=== PATIENT | female | born 1955 | race Caucasian/White ===

== ENCOUNTER 2023-02-16 10:00 | Outpatient (OUT) | payer OTHER, SELFPAY ==
--- NOTE | 2023-02-16 10:00 | CA_ITS ---
Patient: LOREN MURILLO Exam Date: 02/16/2023 : 1955 Gender:F Ordering : DR Hannah Lynn M.D. Admission #: [id number] Family : Order #: [id number] CLICK HERE TO VIEW EXAM ECHOCARDIOGRAM REPORT PROCEDURE: CA ECHO DOPPLER COMPLETE INDICATIONS: Heart murmur COMPARISON: None. DESCRIPTION: COMPLETE ECHOCARDIOGRAM Real-time transthoracic echocardiography with 2D, M-mode, spectral and color flow Doppler performed. QUALITY: Technical quality was good. LEFT VENTRICLE: Normal chamber size. Normal left ventricular wall thickness. Normal systolic function. LV EF: Normal left ventricular ejection fraction, (>55%). DIASTOLIC: Normal diastolic function. ATRIAL SEPTUM: Visually appears intact. LEFT ATRIUM: Mild dilatation. RIGHT ATRIUM: Mild dilatation. RIGHT VENTRICLE: Mild dilatation. Normal right ventricular systolic function. TRICUSPID VALVE: Normal mobility and thickness. No stenosis with trivial regurgitation. Doppler studies reveal mildly (35-45) elevated right sided pressures. RVSP 41 mmHg MITRAL VALVE: Normal mobility and thickness. No evidence of mitral valve stenosis. There is no mitral annular calcification. Mild mitral regurgitation. AORTIC VALVE: Normal trileaflet appearance. Normal leaflet mobility. No evidence of aortic valve stenosis. Focal calcification. No aortic regurgitation. AORTIC ROOT: Normal diameter and appearance. PULMONIC VALVE: Normal thickness and mobility. No stenosis. Trivial regurgitation. PERICARDIUM: No evidence of pericardial effusion. IVC: Collapses with inspirations. IVC is dilated (2.4 cm). PLEURA: CONCLUSION: 1. Normal left ventricular systolic function. LVEF is 60%. 2. The right ventricle is mildly dilated with normal systolic function. 3. Mild biatrial dilatation. 4. Mild mitral regurgitation. 5. Mildly elevated right sided pressures. Adult Echocardiography Procedure Report Left Ventricle LVEDD (3.7 - 5.6 cm): 4.50 cm LVESD (2.2 - 4.0 cm): 3.21 cm LVIVS thickness (0.6 - 1.2 cm): 0.80 cm LVPW thickness (0.5 - 1.0 cm): 1.02 cm e': 0.11 m/s E - e': 8.15 LVOT Max Gradient: 4.48 mm[Hg] LVOT Area (cm2): 1.06 m/s Peak Velocity (LVOT): 1.06 m/s LVOT Diameter 2.03 cm Left Atrium LA Volume Index (2D A2C): 36.98 ml/m2 Left Atrium Systolic Dimension: 3.27 cm Mitral Valve MV E to A Ratio: 0.89, 0.86 Mitral Valve A-Wave Peak Velocity: 1.00 m/s Mitral Valve E-Wave Peak Velocity: 0.88 m/s Right Ventricle Aorta AO Root Diam: 3.72 cm Ascending Ao Diam: 2.81 cm Aortic Valve AoV Area (Peak [place]): 2.17 cm2, 2.17 cm2 Peak Velocity(Antegrade Flow): 1.58 m/s Peak Gradient(Antegrade Flow): 9.96 mm[Hg] Tricuspid Valve Peak Velocity (Regurgitant Flow): 2.87 m/s Pulmonic Valve Mean Gradient: 3.07 mm[Hg], 3.21 mm[Hg] Mean Velocity: 0.83 m/s, 0.83 m/s Peak Velocity: 1.20 m/s, 1.24 m/s Peak Gradient: 6.20 mm[Hg], 5.09 mm[Hg], 6.56 mm[Hg] Right Atrium Right Atrium Systolic Pressure: 84.49 ml, 84.49 ml Dictated by: Phan Goetz M.D. on 02/17/2023 at 16:58 Approved by: Phan Goetz M.D. on 02/17/2023 at 17:08
--- NOTE | 2023-02-16 10:49 | US_ITS ---
[place] [id number] Patient Name: LOREN MURILLO MRN: [id number] date: 1955 Sex: F Assigned Patient Location: CARD Current Patient Location: [facility]ARD Accession/Order Number: [id number] Exam Date: 02/16/2023 11:00 Report Date: 02/16/2023 14:15 At the request of: OLMAN SHOEMAKER Procedure: US carotid duplex BI EXAMINATION: US carotid duplex BI HISTORY: Carotid Bruit R09.89 COMPARISON: No relevant comparison available. TECHNIQUE: Duplex Doppler ultrasound analysis of carotid and vertebral arteries. . Bilateral carotid arterial duplex examination was performed using B-mode, color flow and spectral analysis. Carotid stenosis is reported according to validated velocity parameters, similar to NASCET criteria. FINDINGS: RIGHT CAROTID ARTERY Mild atherosclerotic disease , tortuous ICA Subclavian: PSV: 235.8 cm/s cm/s EDV: 15.6 cm/s cm/s CCA: Prox: PSV: 85.4 cm/s cm/s EDV: 16.0 cm/s cm/s Mid: PSV: 88.7 cm/s cm/s EDV: 24.1 cm/s cm/s Distal: PSV: 88.7 cm/s cm/s EDV: 24.1 cm/s cm/s BULB: PSV: 64.7 cm/s cm/s EDV: 13.1 cm/s cm/s ICA: Prox: PSV: 93.5 cm/s cm/s EDV: 25.7 cm/s cm/s Mid: PSV: 96.8 cm/s cm/s EDV: 37.0 cm/s cm/s Distal: PSV: 129.9 cm/s cm/s EDV: 43.9 cm/s cm/s ECA: PSV: 79.5 cm/s cm/s EDV: 6.8 cm/s cm/s VERTEBRAL: PSV: 56.3 cm/s cm/s EDV: 16.7 cm/s cm/s, antegrade ICA/CCA ratio: PSV: 1.5 EDV: 1.8 LEFT CAROTID ARTERY Mild atherosclerotic plaque Subclavian: PSV: 168.7 cm/s cm/s EDV: 0.0 cm/s CCA: Prox: PSV: 128.6 cm/s cm/s EDV: 15.5 cm/s Mid: PSV: 101.1 cm/s cm/s EDV: 18.7 cm/s Distal: PSV: 83.8 cm/s cm/s EDV: 20.8 cm/s BULB: PSV: 67.7 cm/s cm/s EDV: 19.2 cm/s ICA: Prox: PSV: 95.1 cm/s cm/s EDV: 22.4 cm/s Mid: PSV: 87.0 cm/s cm/s EDV: 33.7 cm/s Distal: PSV: 70.9 cm/s cm/s EDV: 20.8 cm/s ECA: PSV: 75.7 cm/s cm/s EDV: 6.3 cm/s VERTEBRAL: PSV: 39.2 cm/s cm/s EDV: 10.4 cm/s , antegrade ICA/CCA ratio: PSV: 1.1 EDV: 1.1 US/US carotid duplex BI IMPRESSION: 0-49% flow stenosis bilateral internal carotid arteries Spectral Doppler US Thresholds (Reference: Danny EG, et al. Radiology 2000; 214:247-252) Stenosis (%) PSV (cm/sec) VICA/VCCA 0-49 <150 <2.5 50-69 150-225 2.5-4.0 >70 >225 >4.0 Electronically authenticated by: TOM NEAL Date: 02/16/2023 14:15
== END 2023-02-16 10:01 | disposition home or self-care (01) ==
LOC: CARD 10:08
PROVIDERS: PCP Family Medicine; Visit Provider Family Medicine
DX: R01.1 Cardiac murmur, unspecified (principal); R09.89 Other specified symptoms and signs involving the circulatory and respiratory systems; I65.23 Occlusion and stenosis of bilateral carotid arteries; I51.7 Cardiomegaly; I34.0 Nonrheumatic mitral (valve) insufficiency
CPT/HCPCS: 93306; 93880

== ENCOUNTER 2024-01-15 10:03 | Outpatient (OUT) | payer OTHER, SELFPAY ==
--- NOTE | 2024-01-15 10:11 | XR_ITS ---
[address] [address] Patient Name: LOREN MURILLO MRN: [id number] date: 1955 Sex: F Assigned Patient Location: [facility] Current Patient Location: [facility] Accession/Order Number: [id number] Exam Date: 01/15/2024 10:20 Report Date: 01/15/2024 10:37 At the request of: EDNA CAMPBELL Procedure: XR abdomen 1V EXAMINATION: XR abdomen 1V HISTORY: Kidney Stones N20.0 COMPARISON: No relevant comparison available. FINDINGS: KIDNEY/URETER - RIGHT: No visible renal or ureteral calcifications. KIDNEY/URETER - LEFT: Numerous calcifications in the largest measuring 1.2 cm PELVIS: No visible ureteral calcifications. Any visible calcifications favor phleboliths. BOWEL: No abnormal dilation or deviation. BONES: No acute abnormality. Degenerative spondylosis OTHER: Negative. No abnormal gaseous collections. XR/XR abdomen 1V IMPRESSION: Left nephrolithiasis Electronically authenticated by: TOM NEAL Date: 01/15/2024 10:37
== END 2024-01-15 10:04 | disposition home or self-care (01) ==
LOC: RAD 10:05
PROVIDERS: PCP Family Medicine; Visit Provider Physician Assistant
DX: N20.0 Calculus of kidney (principal)
CPT/HCPCS: 74018

== ENCOUNTER 2024-05-16 11:48 | Outpatient (OUT) | payer OTHER, SELFPAY ==
--- OUTSIDE RECORDS SUMMARY | 2024-05-16 11:58 | XMS_ITS | CCD ---
Author Organization [facility] Care Team Providers Care Lone Lead Lineman Name Role Phone SIDNEY PAGAN Attending Unavailable HANNAH SHOEMAKER Primary Care Unavailable HANNAH SHOEMAKER Referring Unavailable SIDNEY PAGAN Admitting Unavailable SIDNEY PAGAN Surgeon Unavailable HANNAH SHOEMAKER Primary Care Unavailable HANNAH SHOEMAKER Referring Unavailable [place] Procedure Practitioner Unavailab SIDNEY Jasso Admitting Unavailable SIDNEY PAGAN Attending Unavailable MISC, DR SHAH Admitting Unavailable MISC, DR SHAH Attending Unavailable SAHARA, DR HANNAH Holt Primary Care Unavailable CHERYL NAIR, DR INA Vargas Consulting Unavailnasreen SHOEMAKER, DR HANNAH Holt Admitting Unavailable SAHARA, DR HANNAH Holt Attending Unavailable SAHARA, DR HANNAH Holt Primary Care Unavailable SHOEMAKER, DR HANNAH Holt Consulting Unavailable HANNAH SHOEMAKER Primary Care Physician Hannah Shoemaker Unavailable THUY CAMPBELL Attending Unavailable Allergies Allergy Classification Reported Allergen(s) Allergy Type Date of Onset Reaction(s) Facility Sulfonamides (antibiotic) (1 source) Sulfonamides (Antibiotic); Translations: [SULFA (SULFONAMIDE ANTIBIOTICS)] Drug Allergy 02-18-20 [facility] (1 source) Sulfonamides (Antibiotic) Drug allergy (disorder) [facility] (3 sources) Sulfonamides (Antibiotic); Translations: [sulfa drugs] Drug allergy Unknown (qualifier value) [facility] [place] (4 sources) Substance with sulfonamide structure and antibacterial mechanism of action (substance) Drug allergy hives [employer] Other (3 sources) patient allergy list reviewed by nurse or physicia Propensity to adverse reactions 07-09-20 14 Comment:Done [employer] Other (3 sources) Allergies Reconciled Propensity to adverse reactions Unknown [employer] Other Medications Current Medications Medication Drug Class(es) Dates Sig (Normalized) Sig (Original) aspirin 81 mg chewable tablet (9 sources) Platelet Aggregation Inhibitor, Nonsteroidal Anti-inflammatory Drug Start: 10-14-2023 take 81 mg by mouth once daily Aspirin Active 81 MG PO Daily October 14, 2023 12:00am Start: 12-17-2019 take 1 tablet by jeff th once daily aspirin 81 mg Oral EC Tab 81 mg = 1 tab(s), Oral, Daily, Refills(s) 0 Start Date: 12/17/19 Status: Ordered Baby Aspirin Act jose caffeine 100 mg / ergotamine tartrate 1 mg oral tablet (9 sources) Central Nervous System Stimulant, Ergotamine Derivative, Methylxanthine Start: 10-14-2023 take 1 tablet by mouth once Ergotamine-Caffeine Active 1 TAB PO Once October 14, 2023 12:00am FreeTextSig: Orally; Note: Source Status: Taking; Provider: Sahara Young ( ) Start: 12-13-2019 take 1 tablet by jeff th every eight hours for headache Cafergot oral tablet 1 tab(s), Oral, q8hr for headache Start Date: 12/13/19 Status: Ordered Cafergot 1-100 M G Orally Active Centrum MultiGummies Women (2 sources) Start: 12-17-2019 Centrum MultiG ummies Women See Instructions, Refill(s) 0, one po daily Start Date: 12/17/19 Status: Ordered fesoterodine (13 sources) Start: 02-13-2024 take 1 tablet by mouth once daily Fesoterodine Active 0 .ROUTE .COMPLEX February 13, 2024 10:42am TAKE 1 TABLET BY MOUTH EVERY DAY Start: 12-26-2023 End: 02-13-2024 take 1 tablet by mouth once daily Fesoterodine Discontinued 0 .ROUTE .COMPLEX December 26, 2023 3:40pm February 13, 2024 10:42am TAKE 1 TABLET BY MOUTH EVERY DAY Start: 12-13-2019 End: 12-26-2023 take 1 tablet by mouth once daily Fesoterodine (Toviaz) 8 mg tablet extended release 24 hr Discontinued 8 MG PO Daily October 14, 2023 12:00am November 27, 2023 8:37am Toviaz 8mg Activ e hydroCHLOROthiazide 25 mg oral tablet (9 sources) Thiazide Diuretic Start: 12-13-2019 take 1 tablet by mouth once daily Hydrochlorothiazide Active 25 MG PO Daily October 14, 2023 12:00am FreeTextSig: TAKE 1 TABLET DAILY; Note: Source Status: Start; Refills: 3; Qty: 90 Tablet; Provider: Sahara Young ( ) meloxicam (10 sources) Nonsteroidal Anti-inflammator y Drug Start: 10-27-2023 Meloxicam Active 0 .ROUTE .COMPLEX 90 October 27, 2023 11:00am TAKE 1 TABLET DAILY Start: 12-17-2019 End: 10-27-2023 take 1 tablet by mouth once daily Meloxicam Discontinued 15 MG PO Daily October 14, 2023 12:00am October 27, 2023 11:00am FreeTextSig: TAKE 1 TABLET DAILY; Note: Source Status: Taking; Refills: 3; Qty: 90 Tablet; Provider: Sahara Young ( ) Ogonfayf-Mkj-Lp-Lycopen-Lute in (Complete Mv Adult 50 Plus) 0.4 mg-300 mcg- 250 mcg tablet (3 sources) Start: 10-14-2023 take 1 tablet by mouth once daily Sattwenh-Lxw-Hz-Lycopen-Lutein (Complete Mv Adult 50 Plus) 0.4 mg-300 mcg- 250 mcg tablet Active 1 TAB PO Daily October 14, 2023 12:00am Multivitamin Adults 50+ - (4 sources) Multivitamin Fernandez lts 50+ - Orally Active terbinafine 250 mg oral tabl et (4 sources) Allyl amine Antif ungal Start: 02-09-2023 take 1 tablet by mouth every twenty- four hours Terbinafine HCl 250 MG 1 tablet Orally Once a day for 10 day(s) Jan, Active Completed/Discontinued Medications Medication Drug Class(es) Dates Sig (Normalized) Sig (Original) azithromycin 250 mg oral tablet (2 sources) Macrolide Antimicrobial Start: 10-25-2023 End: 05-16-2024 Azithromycin Discontinued 250 MG PO daily 6 5 October 25, 2023 12:00am May 16, 2024 10:40am Take 2 tablets today and then 1 tablet for the next 4 days benzonatate 200 mg oral capsule (2 sources) Non-narcotic Antitussive Start: 10-25-2023 End: 05-16-2024 take 200 mg by mouth three times daily Benzonatate Discontinued 200 MG PO Three times daily 30 October 25, 2023 12:00am May 16, 2024 10:41am diclofenac sodium 20 mg/ml topical solution (4 sources) Nonsteroidal Anti-inflammatory Drug Start: 09-11-2017 Pennsaid 2 % 2 applications to affected area Transdermal Twice a day for 30 day(s) Aug, Not-Taking 24 hr mirabegron 50 mg extended release oral tablet (11 sources) beta3-Adrenergic Agonist Start: 12-13-2019 End: 01-03-2024 take 1 tablet by mouth once daily Mirabegron Discontinued 50 MG PO Daily October 14, 2023 12:00am October 27, 2023 11:00am FreeTextSig: TAKE 1 TABLET DAILY; Note: Source Status: Taking; Refills: 3; Qty: 90 Tablet; Provider: Sahara Young ( ) predniSONE 20 mg oral tablet (3 sources) Start: 10-14-2023 End: 10-25-2023 take 20 mg by mouth twice daily Prednisone Discontinued 20 MG PO Twice daily 10 October 14, 2023 12:00am October 25, 2023 9:34am SUPARTZ FX SODIUM HYALURONATE (20 sources) Start: 12-29-2016 SUPARTZ FX SODIUM HYALURONATE Dec, 25 Start: 12-20-2016 SUPARTZ FX SOD IUM HYALURONATE November, 25 mg Start: 12-12-2016 SUPARTZ FX SOD IUM HYALURONATE November, 25 Start: 12-05-2016 SUPARTZ FX SOD IUM HYALURONATE November, 25 mg Start: 11-28-2016 SUPARTZ FX SOD IUM HYALURONATE November, 25 mg Triamcinolone (20 sources) Corticosteroid Start: 10-05-2017 Kenalog -40 mg Sep, 40 mg Start: 04-03-2017 Kenalog -40 mg Mar, Start: 10-06-2016 Kenalog -40 mg Sep, 40 mg Problems Active Problems Problem Classification Problem Date Documented Date Episodic/Chronic Abdominal hernia (5 sources) Irreducible incisional hernia; Translations: [Hernia of anterior abdominal wall without obstruction AND without gangrene] 12-20-2019 Episodic Calculus of urinary tract (5 sources) Kidney stone; Translations: [Calculus of kidney] Onset: 01-16-2024 02-18-2020 Episodic Chronic obstructive pulmonary disease and bronchiectasis (3 sources) Bronchitis; Translations: [Bronchitis, not specified as acute or chronic] 10-25-2023 Episodic Essential hypertension (2 sources) Hypertensive disorder; Translations: [Essential (primary) hypertension] 05-16-2024 Chronic Genitourinary symptoms and ill-defined conditions (10 sources) Incontinence; Translations: [Incontinence without sensory awareness] Onset: 06-10-2016 12-12-2019 Chronic Genitourinary symptoms and ill-defined conditions (9 sources) Microscopic hematuria; Translations: [Nocturia] Onset: 06-07-2016 01-21-2020 Episodic Headache; including migraine (9 sources) Migraine; Translations: [Episodic tension-type headache] 12-12-2019 Chronic Heart valve disorders (5 sources) Heart murmur; Translations: [O/E - cardiac murmur] Onset: 08-23-2018 12-12-2019 Episodic Influenza (1 source) Influenza due to other identified influenza virus with other respiratory manifestations; Translations: [Influenza with other respiratory manifestations] 10-14-2023 Episodic Menstrual disorders (3 sources) Disorder of menstruation; Translations: [Unspecified disorder of menstruation and other abnormal bleeding from female genital tract] Onset: 03-15-2007 Chronic Osteoarthritis (20 sources) Osteoarthritis of knee; Translations: [Unilateral primary osteoarthritis, right knee] Chronic Other circulatory disease (5 sources) Elevated blood-pressure reading without diagnosis of hypertension; Translations: [Elevated blood-pressure reading, without diagnosis of hypertension] Onset: 04-01-2015 12-12-2019 Episodic Other connective tissue disease (4 sources) Pain in left lower limb; Translations: [Pain in left leg] Episodic Other connective tissue disease (4 sources) Thigh pain; Translations: [Pain in unspecified thigh] Episodic Other diseases of bladder and urethra (3 sources) Overactive bladder; Translations: [Overactive bladder] Chronic Other nervous system disorders (4 sources) Meralgia paresthetica of left leg; Translations: [Meralgia paresthetica, left lower limb] Chronic Other nervous system disorders (4 sources) Chronic pain; Translations: [Other chronic pain] Chronic Other non-traumatic joint disorders (8 sources) Knee pain; Translations: [Pain in right knee] Episodic Other nutritional; endocrine; and metabolic disorders (10 sources) Body mass index 40+ - severely obese; Translations: [Body mass index (BMI) 50.0-59.9, adult] Onset: 08-31-2017 Chronic Other screening for suspected conditions (not mental disorders or infectious disease) (2 sources) Patient encounter status; Translations: [Encounter for screening mammogram for malignant neoplasm of breast] 05-16-2024 Episodic Other upper respiratory infections (6 sources) Acute maxillary sinusitis; Translations: [Acute maxillary sinusitis, unspecified] Onset: 07-09-2014 Episodic Spondylosis; intervertebral disc disorders; other back problems (4 sources) Spondylosis; Translations: [Other spondylosis, lumbar region] Chronic Substance-related disorders (3 sources) Tobacco user; Translations: [Nicotine dependence, cigarettes, in remission] Chronic Unclassified (2 sources) Asymptomatic microscopic hematuria 06-03-2021 Urinary tract infections (6 sources) Urinary tract infectious disease; Translations: [Urinary tract infection, site not specified] 08-10-2022 Episodic Past or Other Problems Problem Classification Problem Date Documented Da te Episodic/Chronic Other aftercare (3 sources) Surgical follow-up; Translations: [Follow-up examination, following unspecified surgery] Onset: 05-29-2007 Episodic Other female genital disorders (3 sources) Hypertrophy of uterus; Translations: [Hypertrophy of uterus] Onset: 03-15-2007 Episodic Other non-traumatic joint disorders (3 sources) Arthralgia of the pelvic region and thigh; Translations: [Pain in joint, pelvic region and thigh] Onset: 08-31-2017 Episodic Spondylosis; intervertebral disc disorders; other back problems (3 sources) Low back pain; Translations: [Low back pain, unspecified] Onset: 04-08-2016 Episodic Results Test Name Value Interpretation Reference Range Facility Screenson 01-17-2024 Screens [id number] F Yasmin [facility] Ambulatory Visit Summaryon 0 01-16-2024 Ambulatory Visit Summary SHARRI MURILLO :1955 Visit Date:01/03/2020 Ambulatory Visit Instructions Your Care Team Primary Care Physician - HANNAH SHOEMAKER MD This Is Your Medications List aspirin (aspirin 81 mg Oral EC Tab) caffeine-ergotamine (Cafergot oral tablet) fesoterodine (Toviaz 8 mg oral tablet, extended release) hydrochlorothiazide (hydrochlorothiazide 25 mg Tab) meloxicam (meloxicam 15 mg Tab) mirabegron (Myrbetriq 50 mg oral tablet, extended release) multivitamin with minerals (Centrum MultiGummies Women) Procedures Performed ESWL of kidney (02/03/2020), History of arthroplasty of left knee (11/21/2018), Total replacement of right knee joint (09/21/2018), Cholecystectomy, Hysterectomy, Repair of right inguinal hernia. Medications What How Much When Instructions Unchanged aspirin (aspirin 81 mg Oral EC Tab) 1 Tablets By Mouth Every day Unchanged caffeine-ergotamine (Cafergot oral tablet) 1 Tablets By Mouth Every 8 hours as needed for for headache Unchanged fesoterodine (Toviaz 8 mg oral tablet, extended release) 1 Tablets By Mouth Every day Unchanged hydrochlorothiazide (hydrochlorothiazide 25 mg Tab) 1 Tablets By Mouth Every day Unchanged meloxicam (meloxicam 15 mg Tab) 1 Tablets By Mouth Every day Unchanged mirabegron (Myrbetriq 50 mg oral tablet, extended release) 1 Tablets By Mouth Every day Unchanged multivitamin with minerals (Centrum MultiGummies Women) See instructions one po daily Allergies sulfa drugs (Unknown) Problems Ongoing - Any problem that you are currently receiving treatment for. Asymptomatic microscopic hematuria Blood pressure elevated without history of HTN Cardiac murmur Headache, migraine Incarcerated incisional hernia Incontinence without sensory awareness Kidney stone Microscopic hematuria Mixed incontinence Mixed urge and stress incontinence Nocturia Renal calculus, left UTI (urinary tract infection) Patient Survey You may receive a survey via text or e-mail asking about your office visit. Please share your experience with us by completing your survey. We appreciate your feedback and thank you for choosing us for your care. Yasmin [facility] Patient Educationon 01-16-20 24 Patient Education Nephrology Dietary Guidelines to Help Prevent Kidney Stones Kidney stones are deposits of minerals and salts that form inside your kidneys. Your risk of developing kidney stones may be greater depending on your diet, your lifestyle, the medicines you take, and whether you have certain medical conditions. Most people can lower their risks of developing kidney stones by following these dietary guidelines. Your dietitian may give you more specific instructions depending on your overall health and the type of kidney stones you tend to develop. What are tips for following this plan? Reading food labels ? Choose foods with no salt added or low-salt labels. Limit your salt (sodium) intake to less than 1,500 mg a day. ? Choose foods with calcium for each meal and snack. Try to eat about 300 mg of calcium at each meal. Foods that contain 200?500 mg of calcium a serving include: ? 8 oz (237 mL) of milk, kaxdips-plrypjwinkdn-ptq ry milk, and calcium-fortifiedfruit juice. Calcium-fortified means that calcium has been added to these drinks. ? 8 oz (237 mL) of kefir, yogurt, and soy yogurt. ? 4 oz (114 g) of tofu. ? 1 oz (28 g) of cheese. ? 1 cup (150 g) of dried figs. ? 1 cup (91 g) of cooked broccoli. ? One 3 oz (85 g) can of sardines or mackerel. Most people need 1,000?1,500 mg of calcium a day. Talk to your dietitian about how much calcium is recommended for you. Shopping ? Buy plenty of fresh fruits and vegetables. Most people do not need to avoid fruits and vegetables, even if these foods contain nutrients that may contribute to kidney stones. ? When shopping for convenience foods, choose: ? Whole pieces of fruit. ? Pre-made salads with dressing on the side. ? Low-fat fruit and yogurt smoothies. ? Avoid buying frozen meals or prepared deli foods. These can be high in sodium. ? Look for foods with live cultures, such as yogurt and kefir. ? Choose high-fiber grains, such as whole-wheat breads, oat bran, and wheat cereals. Cooking ? Do not add salt to food when cooking. Place a salt shaker on the table and allow each person to add their own salt to taste. ? Use vegetable protein, such as beans, textured vegetable protein (TVP), or tofu, instead of meat in pasta, casseroles, and soups. Meal planning ? Eat less salt, if told by your dietitian. To do this: ? Avoid eating processed or pre-made food. ? Avoid eating fast food. ? Eat less animal protein, including cheese, meat, poultry, or fish, if told by your dietitian. To do this: ? Limit the number of times you have meat, poultry, fish, or cheese each week. Eat a diet free of meat at least 2 days a week. ? Eat only one serving each day of meat, poultry, fish, or seafood. ? When you prepare animal proteins, cut pieces into small portion sizes. For most meat and fish, one serving is about the size of the palm of your hand. ? Eat at least five servings of fresh fruits and vegetables each day. To do this: ? Keep fruits and vegetables on hand for snacks. ? Eat one piece of fruit or a handful of berries with breakfast. ? Have a salad and fruit at lunch. ? Have two kinds of vegetables at dinner. ? You may be told to limit foods that are high in a substance called oxalate. These include: ? Spinach (cooked), rhubarb, beets, sweet potatoes, and [place] Citizen chard. ? Peanuts. ? Potato chips, yi fries, and baked potatoes with skin on. ? Nuts and nut products. ? Chocolate. ? If you regularly take a diuretic medicine, make sure to eat at least 1 or 2 servings of fruits or vegetables that are high in potassium each day. These include: ? Avocado. ? Banana. ? [place], prune, carrot, or tomato juice. ? Baked potato. ? Cabbage. ? Beans and split peas. Lifestyle ? Drink enough fluid to keep your urine pale yellow. This is the most important thing you can do. Spread your fluid intake throughout the day. ? If you drink alcohol: ? Limit how much you have to: ? 0?1 drink a day for women who are not . ? 0?2 drinks a day for men. ? Know how much alcohol is in your drink. In the [place] one drink equals one 12 oz bottle of beer (355 mL), one 5 oz glass of wine (148 mL), or one 1? oz glass of hard liquor (44 mL). ? Lose weight if told by your health care provider. Work with your dietitian to find an eating plan and weight loss strategies that work best for you. General information ? Talk to your health care provider and dietitian about taking daily supplements. Depending on your health and the cause of your kidney stones, you may be told: ? Do not take high-dose supplements of vitamin C (1,000 mg a day or more). ? To take a calcium supplement. ? To take a daily probiotic supplement. ? To take other supplements such as magnesium, fish oil, or vitamin B6. ? Take hkcw-bpe-olkngff and prescription medicines only as told by your health care provider. These include supplements. What foods sh (more content not included)... Normal [facility] Urology Office/Clinic Noteon 01-16-2024 Urology Office/Clinic Note Chief Complaint 1.5 yr KUB HPI Staff 1.5yr KUB DX: Kidney Stone, UTI & Mixed Urge & Stress Incontinence. *Myrbetriq 50mg qd & Toviaz 8mg qd therapy from PCP C&S at time of last encounter did show E Coli, however, not tx'd due to asx KUB 01/15/24 Denies flank pain Still has loss of bladder control. Wears a pad. Changes maybe 2x/day. Denies pain/burning and visible blood in urine. Still getting up 3x/night, attributes to habit of drinking fluids in the evening. 98ml History of Present Illness staff HPI reviewed and agree. Tests Reviewed: Reviewed UA, KUB, ucx Review of Systems PHQ Score Initial Depression Screen Score: 0 SCORE no fever, chills, malaise, myalgia. no rash/lesions. no chest pain, palpitations, or SOB. no abdominal pain, nausea, vomiting. no unilateral calf swelling, redness, pain Physical Exam Vitals & Measurements HR: 68(Peripheral) RR: 16 BP: 133/72 HT: 66 in HT: 168 cm WT: 150 kg WT: 330 lb BMI: 53.15 General: nontoxic, NAD Mouth: moist mucosa Lungs: normal respiratory effort Cardio: regular rate, good distal perfusion Abdomen: nondistended, no suprapubic distention or tenderness, no CVA tenderness Neurologic: Grossly normal Skin: No rashes or suspicious lesions Assessment/Plan 1. Kidney stone (N20.0: Calculus of kidney) S/p L ESWL 04/15/20. KUB 08/08/22 Stable left nephrolithiasis, with largest measuring 11 mm. KUB 01/15/24 - Stable 1.2 cm L renal stone. Reviewed KUB with pt, stable. No symptomatic UTIs, hematuria, pain from stone. Pt wishes to cont to monitor. Follow up 1.5 yr with KUB or sooner if needed. Pt understands and agrees with plan. 2. Asymptomatic bacteriuria (R82.71: Bacteriuria) C&S at time of last encounter did show E Coli, however, not tx'd due to asx. UA today shows + nitrites, large leuks (similar to prior OV). Pt is asx, will not tx. -Knows to call if she were to develop any sx. 3. Mixed incontinence (N39.46: Mixed incontinence) PVR 98 cc. Taking Myrbetriq 50 mg qd & Toviaz 8 mg qd through PCP. Cont two pads per day and nocturia 3x/night. Pt is about to retire and doesn't want to make any med adjustments until she implements lifestyle changes. -Pt to call if she would like to make any med changes prior to next visit. Follow-up With When Contact Information ADRIAN BENITEZ, THUY Holt, URL [address] [place] [address] Additional Instructions: 1.5 yr with KUB Patient Education Dietary Guidelines to Help Prevent Kidney Stones Documentation recorded by the scrinez Camacho accurately reflects the services(s) I performed and decisions made by me. Authenticated by Thuy Campbell PA-C on 01/16/2024 13:44:55. IHillary, personally scribed for SHAHZAD Gonzalez on 01/16/2024 12:30:08. . Problem List/Past Medical History Ongoing Asymptomatic microscopic hematuria Blood pressure elevated without history of HTN Cardiac murmur Headache, migraine Incarcerated incisional hernia Incontinence without sensory awareness Kidney stone Microscopic hematuria Mixed incontinence Mixed urge and stress incontinence Nocturia Renal calculus, left UTI (urinary tract infection) Historical No qualifying data Procedure/Surgical History ESWL of kidney (02/03/2020), History of arthroplasty of left knee (11/21/2018), Total replacement of right knee joint (09/21/2018), Cholecystectomy, Hysterectomy, Repair of right inguinal hernia. Medications aspirin 81 mg Oral EC Tab, 81 mg= 1 tab(s), Oral, Daily Cafergot oral tablet, 1 tab(s), Oral, q8hr, PRN Centrum MultiGummies Women, See Instructions hydrochlorothiazide 25 mg Tab, 25 mg= 1 tab(s), Oral, Daily meloxicam 15 mg Tab, 15 mg= 1 tab(s), Oral, Daily Myrbetriq 50 mg oral tablet, extended release, 50 mg= 1 tab(s), Oral, Daily Toviaz 8 mg oral tablet, extended release, 8 mg= 1 tab(s), Oral, Daily Allergies sulfa drugs (Unknown) Social History Alcohol - Denies Alcohol Use, 12/17/2019 Substance Abuse - Denies Substance Abuse, 12/17/2019 Tobacco Former smoker, quit more than 30 days ago Tobacco Use:. Never Smokeless Tobacco Use:. Cigarettes, 1 per day. 10 year(s). Stopped age 34 Years. Household tobacco concerns: No. Yes, 01/16/2024 Family History Arthritis: Mother. Diabetes mellitus type 2: Mother. Hypertension: Mother. Primary malignant neoplasm of prostate: Father. Immunizations Vaccine Date Status Comments zoster vaccine, inactivated 06/09/2023 Recorded zoster vaccine, inactivated 02/07/2023 Recorded SARS-CoV-2 (COVID-19) mRNA BNT-162b2 vax 06/01/2021 Recorded 2022-08-10: [id number] SARS-CoV-2 (COVID-19) mRNA BNT-162b2 vax 09/25/2020 Recorded SARS-CoV-2 (COVID-19) mRNA BNT-162b2 vax 09/04/2020 Recorded Lab Results Ambulatory Point of Care Results Bilirubin Urine Dipstick: Negative (01/16/24 09:16:00) Blood Urine Dipstick: Trace-intact (01/16/24 09:16:00) Glucose Urine (more content not included)... Normal [facility] Comment on above: Result Comment: Elec tronically Signed By: ADRIAN BENITEZ, THUY Zhou.br\Date and Time Signed: 01/16/24 13:45 EDT\.br\Electronically Co-Signed By: Hillary Camacho\.br\Date and Time Co-Signed: 01/16/24 12:33 EDT Influenza virus B Ag [Presen ce] in Upper respiratory specimen by Rapid immunoassayon 10-14-2023 FLUBV Ag IA.rapid Ql (Nph) Positive [facility] No Panel Informationon 10-13 Influenza Type A (Rapid) Negative [facility] POC SARS CoV-2 Antigen Negative [facility] XR KUB 1 VIEWon 08-09-2022 XR KUB 1 VIEW EXAMINATION: XR KUB 1 VIEW HISTORY: Kidney stone COMPARISON: No relevant comparison available. FINDINGS: KIDNEY/URETER - RIGHT: No visible renal or ureteral calcifications. KIDNEY/URETER - LEFT: Multiple nephroliths increased in size with the largest measuring 11 mm PELVIS: No visible ureteral calcifications. Any visible calcifications favor phleboliths. BOWEL: No abnormal dilation or deviation. BONES: No acute abnormality. OTHER: Negative. No abnormal gaseous collections. IMPRESSION: Multiple left nephroliths Electronically authenticated by: TOM NEAL Date: 2022-08-09 08:52 Normal [facility] CBC AUTO DIFFon 03-10-2022 BASO # 0.0 103/ul Normal 0.0-0.1 [facility] Comment on above: Performed By: #### H FPFCBC #### [facility] [address] [place] [address] Dr. Caitlin Winston Basophils/100 WBC (Bld) 0.4 % Normal 0.2-2.0 [facility] Comment on above: Performed By: #### H FPFCBC #### [facility] [address] [address] [address] Caitlin Winston EO # 0.2 103/ul Normal 0.0-0.7 [facility] Comment on above: Performed By: #### H FPFCBC #### [facility] [address] [place] [address] Dr. Caitlin Winston Eosinophils/100 WBC (Bld) 2.5 % Normal 0.9-7.0 [facility] Comment on above: Performed By: #### H FPFCBC #### [facility] [address] [place] [address] Dr. Caitlin Winston Erythrocyte distribution width (RBC) [Ratio] 13.5 % Normal 11.0-15.0 [facility] Comment on above: Performed By: #### H FPFCBC #### [facility] [address] [place] [address] Dr. Caitlin Winston Hematocrit (Bld) [Volume fraction] 41.9 % Normal 36.0-48.0 [facility] Comment on above: Performed By: #### H FPFCBC #### [facility] [address] [place] [address] Dr. Caitlin Winston Hemoglobin (Bld) [Mass/Vol] 13.7 g/dL Normal 12.0-16.0 [facility] Comment on above: Performed By: #### H FPFCBC #### [facility] [address] [place] [address] Dr. Caitlin Winston IG # 0.01 10e3/ul Normal 0.00-0.03 [facility] Comment on above: Performed By: #### H FPFCBC #### [facility] [address] [place] [address] Dr. Caitlin Winston IG % 0.1 % Normal 0.0-0.5 [facility] Comment on above: Performed By: #### H FPFCBC #### [facility] [address] [place] [address] Dr. Caitlin Winston LYMPH # 3.2 103/ul Normal 1.2-3.8 [facility] Comment on above: Performed By: #### H FPFCBC #### [facility] [address] [place] [address] Dr. Caitlin Winston Lymphocytes/100 WBC (Bld) 42.0 % Normal 20.5-60.0 [facility] Comment on above: Performed By: #### H FPFCBC #### [facility] [address] [place] [address] Dr. Caitlin Winston MCH (RBC) [Entitic mass] 29.4 pg Normal 26.7-34.0 [facility] Comment on above: Performed By: #### H FPFCBC #### [facility] [address] [place] [address] Dr. Caitlin Winston MCHC (RBC) [Mass/Vol] 32.7 g/dL Normal 29.9-35.2 [facility] Comment on above: Performed By: #### H FPFCBC #### [facility] [address] [place] [address] Dr. Caitlin Winston MCV (RBC) [Entitic vol] 89.9 fL Normal 81.0-99.0 [facility] Comment on above: Performed By: #### H FPFCBC #### [facility] [address] [place] [address] Dr. Caitlin Winston MONO # 0.5 103/ul Normal 0.3-0.8 [facility] Comment on above: Performed By: #### H FPFCBC #### [facility] [address] [place] [address] Dr. Caitlin Winston Monocytes/100 WBC (Bld) 7.1 % Normal 1.7-12.0 [facility] Comment on above: Performed By: #### H FPFCBC #### [facility] [address] [place] [address] Dr. Caitlin Winston NEUT # 3.6 103/ul Normal 1.4-6.5 [facility] Comment on above: Performed By: #### H FPFCBC #### [facility] [address] [place] [address] Dr. Caitlin Winston Neutrophils/100 WBC (Bld) 47.9 % Normal 43.0-75.0 [facility] Comment on above: Performed By: #### H FPFCBC #### [facility] [address] [place] [address] Dr. Caitlni Winston Platelet mean volume (Bld) [Entitic vol] 9.2 fL Critically low 9.5-13.5 [facility] Comment on above: Performed By: #### H FPFCBC #### [facility] [address] [place] [address] Dr. Caitlin Winston PLT 203 103/ul Normal 150-450 [facility] Comment on above: Performed By: #### H FPFCBC #### [facility] [address] [place] [address] Dr. Caitlin Winston RBC 4.66 106/ul Normal 4.20-5.40 [facility] Comment on above: Performed By: #### H FPFCBC #### [facility] [address] [place] [address] Dr. Caitlin Winston WBC 7.6 103/ul Normal 4.0-11.0 [facility] Comment on above: Performed By: #### H FPFCBC #### [facility] [address] [place] [address] Dr. Caitlin Winston [facility] PROFILEon 022 Albumin [Mass/Vol] 3.6 g/dL Normal 3.4-5.0 [facility] Comment on above: Performed By: #### H FPF #### [facility] [address] [place] [address] Dr. Caitlin Winston Albumin/Globulin [Mass ratio] 0.9 {ratio} Normal [facility] Comment on above: Performed By: #### H FPF #### [facility] [address] [place] [address] Dr. Caitlin Winston ALP [Catalytic activity/Vol] 87 U/L Normal 46-116 [facility] Comment on above: Performed By: #### H FPF #### [facility] [address] [place] [address] Dr. Caitlin Winston ALT [Catalytic activity/Vol] 20 U/L Normal 14-59 [facility] Comment on above: Performed By: #### H FPF #### [facility] [address] [place] [address] Dr. Caitlin Winston AST [Catalytic activity/Vol] 15 U/L Normal 15-37 [facility] Comment on above: Performed By: #### H FPF #### [facility] [address] [place] [address] Dr. Caitlin Winston Bilirubin [Mass/Vol] 0.4 mg/dL Normal 0.2-1.0 [facility] Comment on above: Performed By: #### H FPF #### [facility] [address] [address] [address] Caitlin Winston Calcium [Mass/Vol] 8.7 mg/dL Normal 8.5-10.1 [facility] Comment on above: Performed By: #### H FPF #### [facility] [address] [address] [address] Caitlin Winston Chloride [Moles/Vol] 102 mmol/L Normal 98-107 [facility] Comment on above: Performed By: #### H FPF #### [facility] [address] [address] [address] Caitlin Winston CHOL-HDL RATIO NORM SEE BELOW Normal [facility] Comment on above: Result Comment: 3.3 - 4.4 LOW RISK 4.4 - 7.1 AVERAGE RISK 7.1 - 11.0 MODERATE RISK >11.0 HIGH RISK Performed By: #### H FPF #### [facility] [address] [place] [address] Dr. Caitlin Winston Cholesterol [Mass/Vol] 180 mg/dL Normal <=200 [facility] Comment on above: Performed By: #### H FPF #### [facility] [address] [place] [address] Dr. Caitlin Winston Cholesterol in HDL [Mass/Vol] 57 mg/dL Normal 40-60 [facility] Comment on above: Performed By: #### H FPF #### [facility] [address] [address] [address] Caitlin Winston Cholesterol in LDL [Mass/Vol] 107.8 mg/dL Normal [facility] Comment on above: Performed By: #### H FPF #### [facility] [address] [place] [address] Dr. Caitlin Winston Cholesterol.total/ Cholesterol in HDL [Mass ratio] 3.2 {ratio} Normal [facility] Comment on above: Performed By: #### H FPF #### [facility] [address] [place] [address] Dr. Caitlin Winston CO2 [Moles/Vol] 28.3 mmol/L Normal 21.0-32.0 [facility] Comment on above: Performed By: #### H FPF #### [facility] [address] [address] [address] Caitlin Winston Creatinine [Mass/Vol] 0.63 mg/dL Normal 0.55-1.02 [facility] Comment on above: Performed By: #### H FPF #### [facility] [address] [address] [address] Caitlin Winston Globulin (S) [Mass/Vol] 3.8 g/dL Normal [facility] Comment on above: Performed By: #### H FPF #### [facility] [address] [address] [address] Caitlin Winston Glucose [Mass/Vol] 96 mg/dL Normal 74-106 [facility] Comment on above: Performed By: #### H FPF #### [facility] [address] [address] [address] Caitlin Winston HDL NORMAL > or = 60 mg/dl - LO W CARDIOVASCULAR RISK <40 mg/dl - HIGH CARDIOVASCULAR RISK Normal [facility] Comment on above: Performed By: #### H FPF #### [facility] [address] [address] [address] Caitlin Winston LDL CALC NORMAL SEE BELOW Normal [facility] Comment on above: Result Comment: <100 mg/dl OPTIMAL 100 - 129 mg/dl NEAR OR ABOVE OPTIMAL 130 - 159 mg/dl BORDERLINE HIGH 160 - 189 mg/dl HIGH >190 mg/dl VERY HIGH Performed By: #### H FPF #### [facility] [address] [address] [address] Caitlin Winston Potassium [Moles/Vol] 3.9 mmol/L Normal 3.5-5.1 [facility] Comment on above: Performed By: #### H FPF #### [facility] [address] [address] [address] Caitlin Winston Protein [Mass/Vol] 7.4 g/dL Normal 6.4-8.2 [facility] Comment on above: Performed By: #### H FPF #### [facility] [address] [address] [address] Caitlin Winston Sodium [Moles/Vol] 139 mmol/L Normal 136-145 [facility] Comment on above: Performed By: #### H FPF #### [facility] [address] [address] [address] Caitlin Winston Triglyceride [Mass/Vol] 76 mg/dL Normal <=150 [facility] Comment on above: Performed By: #### H FPF #### [facility] [address] [address] [address] Caitlin Winston TSH 2.462 uIU/mL Normal 0.358-3.740 [facility] Comment on above: Performed By: #### H FPF #### [facility] [address] [place] [address] Dr. Caitlin Winston Urea nitrogen [Mass/Vol] 23.0 mg/dL Critically high 7.0-18.0 [facility] Comment on above: Performed By: #### H FPF #### [facility] [address] [place] [address] Dr. Caitlin Winston Urea nitrogen/Creatinin e [Mass ratio] 36.5 mg/mg Normal [facility] Comment on above: Performed By: #### H FPF #### [facility] [address] [place] [address] Dr. Caitlin Winston VLDL CALC 15.2 mg/dL Normal [facility] Comment on above: Performed By: #### H FPF #### [facility] [address] [place] [address] Dr. Caitlin Winston Operative Reporton Operative Report MR#: [id number] [facility] Pt. Name: Sharri Murillo Room #: 0C Discharge 02/22/2021 Date: Birthdate: 1955 OPERATIVE REPORT DATE OF SURGERY: 02/22/2021 SURGEON: Sidney Pagan M.D. Preoperative diagnosis; ventral hernia x3 Postoperative diagnosis: Ventral hernia x2 The operation was performed: Open ventral hernia repair x2 without mesh Anesthesia: Monitored anesthesia care Indication: 65 years old obesity white female with previous midline multiple ventral hernia, she had previous ventral hernia repair. She had recurrent midline abdominal wall bulging and pain. Open ventral hernia repair was offered to the patient, informed consent was obtained. Surgery: Patient was brought to the operating placed on the open table in supine position, general anesthesia was initiated, abdominal skin was prepped and draped in usual sterile fashion, timeout was completed. Midline incision was made with #15 scalpel 10 cm long, subcutaneous tissue dissection with electrocautery, infraumbilical large hernia sac was dissected out by electrocautery and blunt dissection. The dissection was down to the fascia edge. The fascial edge was from the neck of hernia sac. The hernia sac was opened, large amount of omentum as the hernia content. The omentum is measured 18 cm x 10 cm x 2 cm lysis of adhesion was performed to separate the omentum from the hernia sac. I had to open the hernia defect larger about 1 inch larger to able to reduce the omentum back to peritoneal cavity. Through the hernia sac superiorly I able to palpate second midline ventral hernia the hernia sac was dissected free from subcutaneous tissue and resected with electrocautery. The third hernia defect was covered by a mesh. The decision was made to primary closure the fascial defect of the 2 ventral hernia. The superior ventral hernia fascial defect is 4 cm in diameter, was closed by 1-0 PDS interrupted [id number] sutures. Without significant tension. The inferior fascial defect is 5 cm in diameter. Which was closed by 1-0 PDS interrupted [id number] sutures without tension. Subcutaneous wound was irrigated with copious normal saline. Incision was closed by skin diana. Operation was completed without complication, I was present the entire operation, minimal blood loss, omentum was sent for permanent pathology. Instrument count and sponge count were correct. Electronically Signed by: Sidney Pagan M.D. 02/25/2021 01:44 P Sidney Pagan M.D. Date Dict: 02/25/2021/01:27 P/Sidney Pagan M.D. Date Trans: 02/25/2021 01:27 P/ [id number] Normal [facility] POC GLUCOSE LABon 02-22-2021 Glucose [Mass/Vol] 90 mg/dL Normal 70-100 [facility] Comment on above: Performed By: #### [id number] #### [address] ABDOMEN AND PELVIS W ORAL CONTRASTon 01-14-2021 CT ABDOMEN AND PELVIS W ORAL CONTRAST [facility] Department of Radiology [address] [place] [id number] == Patient Name: SHARRI MURILLO : 1955 Sex: F Age: Race: White Pt. Location: Patient Status: D Ordered Date: 01/05/2021 9:35:00 AM Completed Date: 01/14/2021 08:25 AM Requesting Provider: SIDNEY PAGAN Attending Provider: SIDNEY PAGAN Report Copy To: HANNAH SHOEMAKER Signs & Symptoms: K43.9 Ventral hernia without obstruction or gangrene I10 History: Saritha [phone] patient will need to come early to drink [employer] auth [id number] valid 01/07/2021-02/21/2021 per [employer]ore [id number] *kw Comments: Exam: CT ABDOMEN AND PELVIS W ORAL CONTRAST == CT ABDOMEN AND PELVIS W ORAL CONTRAST 01/14/2021 8:25 AM CLINICAL INDICATIONS: K43.9 Ventral hernia without obstruction or gangrene I10 TECHNOLOGIST COMMENTS: evaluation of hernia QUESTION FOR THE RADIOLOGIST: PROTOCOL: Axial CT images of the abdomen and pelvis were obtained without IV contrast. TECHNIQUE: Multidetector CT axial slices of the abdomen and pelvis without IV contrast. Multiplanar reformats were performed and viewed on a separate workstation and reviewed to further define anatomy and possible pathology. All CT scans at this facility use dose modulation, iterative reconstruction, and/or weight based dosing when appropriate to reduce radiation dose to as low as reasonably achievable COMPARISON: None. FINDINGS: The lung bases appear unremarkable. The liver, spleen, adrenals and pancreas appear unremarkable. The gallbladder is absent. Right kidney is unremarkable. An obstructing calculi are present in the left kidney. There is left-sided hydronephrosis and proximal hydroureter secondary to a calculus in the proximal ureter measuring approximately 4 mm. The bladder appears unremarkable. The GI tract appears unremarkable. No free intraperitoneal air or free fluid. The aorta is intermittently calcified but nonaneurysmal. No retroperitoneal adenopathy or hematoma. There is a complex ventral hernia present beginning at the level the umbilicus and extending inferiorly. The upper portion of the hernia measures 5.3 cm in cross-section and 4.7 cm craniocaudally. Unaffected bowel is noted at the base of this hernia. The second lower portion contains only fat and measures 3.3 cm in cross-section and 2.3 cm craniocaudally. The study viewed at bone window shows disc space degeneration at L5-S1. IMPRESSION: * Complex ventral hernia as described. * Left-sided hydronephrosis and proximal hydroureter secondary to a 4 mm calculus in the proximal left ureter. Nonobstructive left renal calculi are also present. * Status post cholecystectomy. Electronically signed: Jill Karimi. Transcribed by: [email or web address], User Resident: Electronically Signed by: JILL KARIMI @ 01/15/2021 08:38 AM Normal [facility] Vital Signs Date Time Vital Sign Value Performing Clinician Adithya esteban 05-16-2024 10:44-0400 Body height 170.18 cm [facility] 05-16-2024 10:35-0400 Body mass index (BMI) [Ratio] 51 kg/m2 [facility] 05-16-2024 10:35-0400 Body weight 147.87 kg [facility] 05-16-2024 10:35-0400 Diastolic blood pressure 88 mm[Hg] [facility] 05-16-2024 10:35-0400 Heart rate 77 /min [facility] 05-16-2024 10:35-0400 Systolic blood pressure 129 mm[Hg] [facility] 01-16-2024 09:18-0400 Blood Pressure Location THUY CAMPBELL [facility] 01-16-2024 09:18-0400 Diastolic blood pressure 72 mm[Hg] THUY ADRIAN [facility] 01-16-2024 09:18-0400 Heart rate 68 /min THUY ADRIAN [facility] 01-16-2024 09:18-0400 Respiratory rate 16 /min THUY ADRIAN [facility] 01-16-2024 09:18-0400 Systolic blood pressure 133 mm[Hg] THUY ADRIAN [facility] 10-25-2023 09:30-0400 Body height 170.18 cm [facility] 10-25-2023 09:30-0400 Body mass index (BMI) [Ratio] 51.2 kg/m2 [facility] 10-25-2023 09:30-0400 Body weight 148.32 kg [facility] 10-25-2023 09:30-0400 Diastolic blood pressure 84 mm[Hg] [facility] 10-25-2023 09:30-0400 Heart rate 95 /min [facility] 10-25-2023 09:30-0400 SaO2% (BldA) [Mass fraction] 96 % [facility] 10-25-2023 09:30-0400 Systolic blood pressure 122 mm[Hg] [facility] 10-14-2023 12:49-0400 Body height 170.18 cm [facility] 10-14-2023 12:49-0400 Body mass index (BMI) [Ratio] 52 kg/m2 [facility] 10-14-2023 12:49-0400 Body temperature 98.4 [degF] [facility] 10-14-2023 12:49-0400 Body weight 150.59 kg [facility] 10-14-2023 12:49-0400 Heart rate 64 /min [facility] 10-14-2023 12:49-0400 Respiratory rate 18 /min [facility] 10-14-2023 12:49-0400 SaO2% (BldA) [Mass fraction] 97 % [facility] Encounters Encounter Date Encounter Type Care Provider Facility Start: 05-16-2024 End: 05-16-2024 ambulatory [facility] Work Phone: Start: 05-16-2024 End: 05-16-2024 Patient encounter procedure [facility] Work Phone: Start: 01-16-2024 End: 01-16-2024 ambulatory THUY CAMPBELL Facility:[facility] Start: 01-16-2024 End: 01-16-2024 Patient encounter procedure THUY CAMPBELL [facility] Start: 10-25-2023 End: 10-25-2023 ambulatory [facility] Work Phone: Start: 10-25-2023 End: 10-25-2023 Patient encounter procedure [facility] Work Phone: Start: 10-14-2023 End: 10-14-2023 ambulatory [facility] Work Phone: Start: 10-14-2023 End: 10-14-2023 Patient encounter procedure [facility] Work Phone: Start: 03-14-2023 End: 03-14-2023 ambulatory Hannah Shoemaker Other [employer] Other Start: 03-14-2023 Telephone encounter Hannah Shoemaker [facility] Start: 03-09-2023 End: 03-09-2023 ambulatory Hannah Shoemaker Other [employer] Other Start: 03-09-2023 Telephone encounter Hannah Shoemaker [facility] Start: 02-16-2023 End: 02-16-2023 ambulatory Hannah Shoemaker Other [employer] Other Start: 02-16-2023 Telephone encounter Hannah Shoemaker [facility] Start: 02-09-2023 End: 02-09-2023 ambulatory Hannah Shoemaker Other [employer] Other Start: 02-09-2023 Telephone encounter Hannah Shoemaker [facility] Start: 08-10-2022 End: 08-10-2022 Lab Drop off THUY CAMPBELL [facility] Start: 08-08-2022 End: 08-09-[address] DOCTOR CHAVARRIA Facility:[facility] Start: 03-10-2022 End: 03-11-[address] HANNAH SHOEMAKER Facility: Start: 02-22-2021 End: 02-23-2021 ambulatory SIDNEY PAGAN Facility:[facility] Start: 01-14-2021 End: 01-15-2021 ambulatory SIDNEY PAGAN Facility:[facility] Procedures Date Procedure Procedure Detail Performing Clinician Start: 02-22-2021 ANESTH REPAIR OF HERNIA SIDNEY PAGAN Start: 02-22-2021 REREPAIR VENTRL DENTON REDUCE SIDNEY PAGAN Start: 02-03-2020 Extracorporeal shock wave lithotripsy of calculus of kidney THUY CAMPBELL Start: 11-21-2018 History of arthropla sty of left knee THUY CAMPBELL Start: 09-21-2018 Total replacement of right knee joint THUY CAMPBELL Comment on above: [facility] Start: 08-23-2018 Pre-surgery evaluation Hannah Shoemaker Other Start: 08-31-2017 Screening mammography M justa Shoemaker Other Cholecystectomy THUY ANDRADE Hysterectomy THUY CAMPBELL Removal of suture Hannah Wang un Other Repair of right ingu inal hernia THUY CAMPBELL Comment on above: unknown year Plan of Treatment Date Care Activity Detail Author Comprehensive metabo lic 2000 panel - Serum or Plasma [facility] enter MG Breast - bilateral Screening [facility] Immunizations Immunization Date Immunization Notes Care Provider Fa cility 06-09-2023 zoster vaccine recombinant THUY CAMPBELL [facility] 02-07-2023 zoster vaccine recombinant THUY CAMPBELL [facility] 06-01-2021 SARS-CoV-2 (COVID-19 ) mRNA BNT-162b2 vax THUY CAMPBELL [facility] Comment on above: Result Comment: 2022: [id number] 09-25-2020 SARS-CoV-2 (COVID-19 ) mRNA BNT-162b2 vax THUY CAMPBELL [facility] 09-04-2020 SARS-CoV-2 (COVID-19 ) mRNA BNT-162b2 vax THUYJASMYNE CAMPBELL [facility] Payers Date Payer Category Payer Self-pay [id number] 1957 Unknown [id number] 1955 Unknown [id number] 1955 Unknown [id number] 1955 Unknown [id number] 1955 Unknown [id number] Medicare [id number] Medicare [facility] [employer] [facility] [id number] Self-pay Self Pay [id number] Unknown [id number] Social History Date Type Detail Facility Start: 08-10-2022 End: 10-25-2023 Tobacco smoking status Ex-smoker (finding) [facility] Sex Assigned At Female [facility] Start: 1955 Sex Assigned At Female F [facility] Tobacco smoking status Never [facility] Functional Status Date Assessment Result Facility 01-16-2024 Functional Status N/A [facility] Clinical Notes 01-16-2024 Note Date & Type Note Facility 01-16-2024 Hospital Discharg e instructions Patient Education 01/16/2024 12:15:59 Dietary Guidelines to Help Prevent Kidney Stones Dietary Guidelines to Help Prevent Kidney Stones Kidney stones are deposits of minerals and salts that form inside your kidneys. Your risk of developing kidney stones may be greater depending on your diet, your lifestyle, the medicines you take, and whether you have certain medical conditions. Most people can lower their risks of developing kidney stones by following these dietary guidelines. Your dietitian may give you more specific instructions depending on your overall health and the type of kidney stones you tend to develop. What are tips for following this plan? Reading food labels Choose foods with no salt added or low-salt labels. Limit your salt (sodium) intake to less than 1,500 mg a day. Choose foods with calcium for each meal and snack. Try to eat about 300 mg of calcium at each meal. Foods that contain 200 500 mg of calcium a serving include: ?8 oz (237 mL) of milk, ooebsqj-wuhxpcfmcifc-nmvtr milk, and calcium-fortifiedfruit juice. Calcium-fortified means that calcium has been added to these drinks. ?8 oz (237 mL) of kefir, yogurt, and soy yogurt. ?4 oz (114 g) of tofu. ?1 oz (28 g) of cheese. ?1 cup (150 g) of dried figs. ?1 cup (91 g) of cooked broccoli. ?One 3 oz (85 g) can of sardines or mackerel. Most people need 1,000 1,500 mg of calcium a day. Talk to your dietitian about how much calcium is recommended for you. Shopping Buy plenty of fresh fruits and vegetables. Most people do not need to avoid fruits and vegetables, even if these foods contain nutrients that may contribute to kidney stones. When shopping for convenience foods, choose: ?Whole pieces of fruit. ?Pre-made salads with dressing on the side. ?Low-fat fruit and yogurt smoothies. Avoid buying frozen meals or prepared deli foods. These can be high in sodium. Look for foods with live cultures, such as yogurt and kefir. Choose high-fiber grains, such as whole-wheat breads, oat bran, and wheat cereals. Cooking Do not add salt to food when cooking. Place a salt shaker on the table and allow each person to add their own salt to taste. Use vegetable protein, such as beans, textured vegetable protein (TVP), or tofu, instead of meat in pasta, casseroles, and soups. Meal planning Eat less salt, if told by your dietitian. To do this: ?Avoid eating processed or pre-made food. ?Avoid eating fast food. Eat less animal protein, including cheese, meat, poultry, or fish, if told by your dietitian. To do this: ?Limit the number of times you have meat, poultry, fish, or cheese each week. Eat a diet free of meat at least 2 days a week. ?Eat only one serving each day of meat, poultry, fish, or seafood. ?When you prepare animal proteins, cut pieces into small portion sizes. For most meat and fish, one serving is about the size of the palm of your hand. Eat at least five servings of fresh fruits and vegetables each day. To do this: ?Keep fruits and vegetables on hand for snacks. ?Eat one piece of fruit or a handful of berries with breakfast. ?Have a salad and fruit at lunch. ?Have two kinds of vegetables at dinner. You may be told to limit foods that are high in a substance called oxalate. These include: ?Spinach (cooked), rhubarb, beets, sweet potatoes, and [place] Citizen chard. ?Peanuts. ?Potato chips, yi fries, and baked potatoes with skin on. ?Nuts and nut products. ?Chocolate. If you regularly take a diuretic medicine, make sure to eat at least 1 or 2 servings of fruits or vegetables that are high in potassium each day. These include: ?Avocado. ?Banana. ?[place], prune, carrot, or tomato juice. ?Baked potato. ?Cabbage. ?Beans and split peas. Lifestyle Drink enough fluid to keep your urine pale yellow. This is the most important thing you can do. Spread your fluid intake throughout the day. If you drink alcohol: ?Limit how much you have to: ?0 1 drink a day for women who are not . ?0 2 drinks a day for men. ?Know how much alcohol is in your drink. In the [place] one drink equals one 12 oz bottle of beer (355 mL), one 5 oz glass of wine (148 mL), or one 1 oz glass of hard liquor (44 mL). Lose weight if told by your health care provider. Work with your dietitian to find an eating plan and weight loss strategies that work best for you. General information Talk to your health care provider and dietitian about taking daily supplements. Depending on your health and the cause of your kidney stones, you may be told: ?Do not take high-dose supplements of vitamin C (1,000 mg a day or more). ?To take a calcium supplement. ?To take a daily probiotic supplement. ?To take other supplements such as magnesium, fish oil, or vitamin B6. Take pjom-gva-ocisdiq and prescription medicines only as told by your health care provider. These include supplements. What foods should I limit? Limit your intake of the following foods, or eat them as told by your dietitian. Vegetables Spinach. Rhubarb. Beets. Canned vegetables. Pickles. Olives. Baked potatoes with skin. Grains Wheat bran. Baked goods. Salted crackers. Cereals high in sugar. Meats and other proteins Nuts. Nut butters. Large portions of meat, poultry, or fish. Salted, precooked, or cured meats, such as sausages, meat loaves, and hot dogs. Dairy Cheeses. Beverages Regular soft drinks. Regular vegetable juice. Seasonings and condiments Seasoning blends with salt. Salad dressings. Soy sauce. Ketchup. Barbecue sauce. Other foods Canned soups. Canned pasta sauce. Casseroles. Pizza. Lasagna. Frozen meals. Potato chips. Danish fries. The items listed above may not be a complete list of foods and beverages you should limit. Contact a dietitian for more information. What foods should I avoid? Talk to your dietitian about specific foods you should avoid based on the type of kidney stones you have and your overall health. Fruits Grapefruit. The item listed above may not be a complete list of foods and beverages you should avoid. Contact a dietitian for more information. Summary Kidney stones are deposits of minerals and salts that form inside your kidneys. You can lower your risk of kidney stones by making changes to your diet. The most important thing you can do is drink enough fluid. Drink enough fluid to keep your urine pale yellow. Talk to your dietitian about how much calcium you should have each day, and eat less salt and animal protein as told by your dietitian. This information is not intended to replace advice given to you by your health care provider. Make sure you discuss any questions you have with your health care provider. Document Revised: 10/20/2022 Document Reviewed: 10/20/2022 [employer] Patient Education 2022 [employer]. Follow Up Care 08/10/2022 15:34:44 With:THUY CAMPBELL PA-C, URL Address: [address] [address] When: Unknown [facility] 01-16-2024 Note - From: Elva Zamora To: - Administrative; Sent: 01/16/2024 09:51:59 EDT Show up: 01/15/2025 09:51:00 EDT Subject: 18 month F/U with KUB Due Date/Time: 07/07/2025 09:51:00 EST Reminder/Recall Patient needs scheduled with ANDREA for an 18m f/u with KUB, due back 07/07/2025 [facility] Evaluation + Plan note Future Appointments Appointment Date:01/10/2024 03:00:00 PM Scheduled Provider:THUY CAMPBELL PA-C Location:[facility] Appointment Type:URO Office Visit Diagnostic Tests PendingUrine Culture 08/10/22 [facility] Evaluation note No Information [place] Other Evaluation note No assessment inform ation available [facility] Work Phone: Evaluation note Diagnosis Onset Date Influenza B noneactive Bronchitis acute [facility] Work Phone: Evaluation note* Diagnosis Onset Date Resolution Status Hypertension acute Screening mammogram for breast cancer acute [facility] Work Phone: History general Narrative - Reported* Type Description Date Medical History HTN Surgical History hysterectomy Surgical History gallbladder removal Surgical History hernia Hospitalization History see above [facility] Other Hospital course Narrative No data available for this section [facility] No data available [facility] this section [facility] No data available for this section [facility] Summary Purpose Family History Relationship Condition Age at Onset Recorded Date/T blayne father History of malignant neoplasm of prostate Unknown Unknown Malignant neoplasm Unknown Not Specified Unknown Diabetes mellitus Unknown Hypertension Unknown Relationship Condition Age at Onset Recorded Date/T blayne father History of malignant neoplasm of prostate Unknown Unknown Malignant neoplasm Unknown mother Unknown Diabetes mellitus Unknown Hypertension Unknown Advance Directives Advance Directive Response Recorded Date/ Time Advance Directives No August 4:03pm Chief Complaint and Reason for Visit Chief Complaint head cold, cough Chief Complaint head cold, cough Cough Reason for Visit Influenza B Bronchitis Chief Complaint Wellness Reason for Visit Hypertension Screening mammogram for breast cancer Additional Source Comments INFORMATION SOURCE (unrecogn ized section and content) DATE CREATED AUTHOR 02/27/2021 [facility] DATE CREATED AUTHOR AUTHOR'S ORGANIZ ATION 08/09/2022 [facility] DATE CREATED AUTHOR AUTHOR'S ORGANIZ ATION 01/18/2024 [facility] Patient Care team informatio n (unrecognized section and content) Team Status: Active Member Role Status Dates Hannah Shoemaker MD Primary Care Provider Active Team Status: Inactive Member Role Status Dates Hannah Shoemaker MD Primary Care Provider Active Start: October 14, 2023 End: October 14, 2023 Jerilyn Avelar APRN Attending Provider Active Start: October 14, 2023 End: October 14, 2023 Team Status: Inactive Member Role Status Dates Hannah Shoemaker MD Primary Care Provider Active Start: October 25, 2023 End: October 25, 2023 Thuy Chaney APRN MEDICAID BILLING CLERK-C Attending Provider Act jose Start: October 25, 2023 End: October 25, 2023 Team Status: Inactive Member Role Status Dates Hannah Shoemaker MD Primary Care Provide r, Attending Provider Active Start: May 16, 2024 End: May 16, 2024 REASON FOR VISIT (unrecogniz ed section and content) recordscarotid Usecho result s[facility] labs Goals (unrecognized section and content) Goals may be documented in a n alternate section FOR RECORDS PERTAINING TO PATIENTS WHO ARE OR HAVE BEEN ENROLLED IN A CHEMICAL DEPENDENCY/SUBSTANCEABUSE PROGRAM, SOME INFORMATION MAY BE OMITTED. This clinical summary was aggregated from multiple sources. Caution should be exercised in using it in the provision of clinical care. This summary normalizes information from multiple sources, and as a consequence, information in this document may materially change the coding, format and clinical context of patient data. In addition, data may be omitted in some cases. CLINICAL DECISIONS SHOULD BE BASED ON THE PRIMARY CLINICAL RECORDS. [facility], [facility]. provides no warranty or guarantee of the accuracy or completeness of information in this document.
[2024-05-16 12:23] LABS: Basophils Percent Auto 0.3 % (0.2-2.0); Eosinophils Absolute Auto 0.2 10^3/uL (0.0-0.7); Eosinophils Percent Auto 2.4 % (0.9-7.0); Hematocrit 42.2 % (36.0-48.0); Hemoglobin 13.9 g/dL (12.0-16.0); Immature Granulocytes Abs Auto 0.03 10^3/uL (0.00-0.03); Immature Granulocytes Pct Auto 0.3 % (0.0-0.5); Lymphocytes Absolute Auto 2.9 10^3/uL (1.2-3.8); Lymphocytes Percent Auto 30.1 % (20.5-60.0); Mean Corpuscular HGB Conc 32.9 g/dL (29.9-35.2); Mean Corpuscular Hemoglobin 30.1 pg (26.7-34.0); Mean Corpuscular Volume 91.3 fL (81.0-99.0); Mean Platelet Volume 9.1 fL (9.5-13.5); Monocytes Absolute Auto 0.5 10^3/uL (0.3-0.8); Monocytes Percent Auto 5.5 % (1.7-12.0); Neutrophils Absolute Auto 5.9 10^3/uL (1.4-6.5); Neutrophils Percent Auto 61.4 % (43.0-75.0); Platelet Count 188 10^3/uL (150-450); Red Blood Count 4.62 10^6/uL (4.20-5.40); Red Cell Distribution Width 13.8 % (11.0-15.0); White Blood Count 9.6 10^3/uL (4.0-11.0)
[2024-05-16 13:28] LABS: Alanine Aminotransferase 18 U/L (14-59); Albumin Globulin Ratio 0.8; Albumin Level 3.5 g/dL (3.4-5.0); Alkaline Phosphatase 97 U/L (46-116); Anion Gap 12.2; Aspartate Amino Transferase 17 U/L (15-37); BUN Creatinine Ratio 23.2; Bilirubin Total 0.5 mg/dL (0.2-1.0); Calcium 9.8 mg/dL (8.5-10.1); Carbon Dioxide 27.5 mmol/L (21.0-32.0); Chloride 106 mmol/L (98-107); Chol HDL Ratio 2.9; Cholesterol 190 mg/dL (<=200); Estimated GFR (African America >60 (>=60 mL/min/1.73m^2); Estimated GFR (Non-African Ame >60 (>=60 mL/min/1.73m^2); Globulin 4.2 g/dL; Glucose 90 mg/dL (74-106); HDL Cholesterol 65 mg/dL (40-60); Potassium 3.7 mmol/L (3.5-5.1); Sodium 142 mmol/L (136-145); Total Protein 7.7 g/dL (6.4-8.2); Triglycerides 111 mg/dL (<=150); VLDL CHOLESTEROL 22.2 mg/dL
== END 2024-05-16 11:49 | disposition home or self-care (01) ==
PROVIDERS: PCP Family Medicine; Visit Provider Family Medicine
DX: I10 Essential (primary) hypertension (principal)
CPT/HCPCS: 36415; 80053; 80061; 85025

== ENCOUNTER 2024-05-21 04:01 | Emergency (ER) | payer OTHER, SELFPAY ==
[2024-05-21] VITALS (74 sets, daily range): BP systolic 72–111; BP diastolic 50–75; PULSE 105–136; TEMP 37.1; O2SAT 90–95; BMI 49.4
--- NOTE | 2024-05-21 04:13 | XR_ITS ---
The [address] [address] Patient Name: LOREN MURILLO MRN: [id number] date: 1955 Sex: F Assigned Patient Location: ER Current Patient Location: ER Accession/Order Number: [id number] Exam Date: 05/21/2024 04:35 Report Date: 05/21/2024 05:54 At the request of: RHEA MARKER Procedure: XR chest 1V EXAM: XR chest 1V HISTORY: fever, weakness COMPARISON: None. TECHNIQUE: Portable FINDINGS: LUNGS: No significant pulmonary parenchymal abnormalities. VASCULATURE: No increased pulmonary vasculature. PLEURA: No pneumothorax, effusion, or pleural thickening. Elevated right hemidiaphragm CARDIAC: No cardiomegaly or cardiac silhouette abnormality. MEDIASTINUM: No visible mass or adenopathy. BONES: No fracture or visible bone lesion. OTHER: Negative. XR/XR chest 1V IMPRESSION: No acute cardiopulmonary process Electronically authenticated by: TOM NEAL Date: 05/21/2024 05:54
--- NOTE | 2024-05-21 04:16 | ED.GENADUL1 ---
Documented by User: Senia Jalloh MD 05/21/24 06:54 HPI HPI - General Adult General Chief complaint: Fever Stated complaint: fever Time Seen by Provider: 05/21/24 04:08 History of Present Illness HPI narrative: This 68-year-old female presents for evaluation of fevers, chills, generalized weakness. She is currently on Macrobid for UTI. The patient states her urinary symptoms started last but she did not start antibiotics until Monday. She states she was having urinary frequency urgency dysuria. She was not having any abdominal pain but does complain of left flank pain at times, she is not having any abdominal or flank pain at this time. She states she has been coughing in the mornings which makes her have dry heaves but she is otherwise not vomiting. Over the course of the past 24 hours she has become increasingly weak with a poor appetite. She has had episodes of nausea and dry heaves but no vomiting, intermittent diarrhea. She does not have any chest pain but states that her chest feels heavy. She was noted to have a pulse in the 130s upon arrival. She denies any dizziness or syncope. She states she took Tylenol prior to arrival. She states overall she feels like shit. Her states she has been having shaking chills since Monday night. The patient also has a history of a kidney stone, he thinks it is on the left side. She has had lithotripsy several times but was then told that the stone was stuck and they would keep an eye on it. Related Data Home Medications ?Medication ?Instructions ?Recorded ?Confirmed aspirin 81 mg tablet,delayed 81 mg PO DAILY 05/21/24 05/21/24 release fesoterodine 8 mg tablet,extended mg PO 05/21/24 release 24 hr hydrochlorothiazide 25 mg tablet 25 mg PO DAILY 05/21/24 05/21/24 meloxicam 15 mg tablet mg 05/21/24 mirabegron 50 mg tablet,extended 50 mg PO DAILY 05/21/24 05/21/24 release 24 hr (Myrbetriq) nitrofurantoin macrocrystal 100 mg 100 mg PO Q12H 05/21/24 05/21/24 capsule sumatriptan succinate 25 mg tablet 25 mg PO DAILY PRN migraine 05/21/24 05/21/24 headache Allergies Allergy/AdvReac Type Severity Reaction Status Date / Time No Known Drug Allergies Allergy Verified 05/21/24 04:12 Opioid HPI Opioid Management Most Recent Opioid Data: Last Pain Scale 7 05/21/24 06:58 05/21/24 Last MAR Pain Assessment 05/21/24 06:58 Review of Systems ROS Status of ROS 10 or more systems reviewed and unremarkable except as noted in history and below Exam Narrative Exam Narrative: Vital signs and Nursing Notes reviewed: Patient is afebrile, she is tachycardic with a pulse in the 130s, blood pressure is on the low side at 111/73, she is borderline hypoxic with pulse ox of 94% on room air General: Awake, alert, oriented, obese adult female, ill-appearing, no respiratory distress HEENT: Normocephalic atraumatic, mucous membranes are moist and pink, eyes are clear, normal conjunctiva, vision is grossly intact Neck: Supple, no meningeal signs, no anterior or posterior cervical lymphadenopathy Chest: Lungs are clear to auscultation with good air entry, there is no wheezing rhonchi or rales appreciated no accessory muscle use, patient is speaking in complete sentences-no chest wall tenderness to palpation CVS: Regular rate and rhythm S1-S2, tachycardic with pulse in the 130s no murmurs rubs or gallops, pulses are brisk and equal bilaterally ABD: Obese, Soft, nondistended, nontender, no rebound guarding or rigidity, bowel sounds are normal, no pulsatile masses appreciated Extremities: Moving all extremities, no lower extremity tenderness or swelling noted, negative Homans' sign, pulses are brisk and equal bilaterally Skin: Normal in appearance without rash,pallor, petechiae or purpura Neuro: No focal deficits, generally appears weak- GCS 15 Constitutional Vital Signs, click to edit/add: Last Vital Signs Temp 98.8 F 05/21/24 04:05 Pulse 112 H 05/21/24 09:52 Resp 30 H 05/21/24 09:52 BP 98/60 05/21/24 10:00 Pulse Ox 92 L 05/21/24 09:52 O2 Del Method Room Air 05/21/24 04:05 O2 Flow Rate 2 05/21/24 07:38 Course Vital Signs Vital signs: Vital Signs Temperature 98.8 F 05/21/24 04:05 Pulse Rate 130 H 05/21/24 04:05 Respiratory Rate 18 05/21/24 04:05 Blood Pressure 111/73 05/21/24 04:05 Pulse Oximetry 94 L 05/21/24 04:05 Oxygen Delivery Method Room Air 05/21/24 04:05 Temperature 98.8 F 05/21/24 04:05 Pulse Rate 112 H 05/21/24 09:52 Respiratory Rate 30 H 05/21/24 09:52 Blood Pressure 98/60 05/21/24 10:00 Pulse Oximetry 92 L 05/21/24 09:52 Oxygen Delivery Method Room Air 05/21/24 04:05 Oxygen Delivery Flow Rate 2 05/21/24 07:38 Medical Decision Making MDM Narrative Medical decision making narrative: This 68-year-old female is brought to the emergency department by her from home. The patient had a well check with labs done at this facility last and shortly thereafter started having urinary symptoms with urinary frequency urgency and dysuria. She was prescribed Macrobid by her family physician. Her symptoms were not improving and over the weekend she started having shaking chills with generalized weakness and left lower quadrant abdominal and flank pain. She has had some mild chest pressure but denies any specific chest pain or shortness of breath. She has not had any dizziness or syncope. Her appetite has been decreased. According to the patient's she does have a history of kidney stones and had lithotripsy in the past but the stone was not completely dislodged and the patient was told that they were going to keep an eye on it . She has not had any symptoms since that time. The patient has becoming increasingly ill over the course of the weekend. She did take Tylenol around 2 AM. Upon arrival she was noted to be tachycardic with a low blood pressure. EKG done upon arrival was a sinus tachycardia at [address] changes. An IV was placed and normal saline was started. Septic workup was ordered. The patient has a markedly low white count at 1.7. Hemoglobin is stable at 13.6. Her platelet count is low at 82. She has 1 band. Lactic acid is elevated at 4.5. Her troponin is elevated at 935. She has elevated liver function tests. Potassium is low at 2.6. This was replaced orally and parenterally. Influenza and COVID testing is negative. CT scan of the abdomen pelvis with IV contrast was ordered and is pending at the time of this dictation. The patient's blood pressure after CT scanning is low in the 70s over 50s. She will receive additional liter of IV fluid. Empiric IV antibiotics were ordered and she was given 3.375 g of Zosyn and additional tylenol at her request. Medical Records Medical records reviewed: Yes I reviewed the patient's medical records Medical records narrative: The [address] [address] XRay Report Signed Patient: LOREN MURILLO MR#: [id number] : 1955 Acct:[id number] Age/Sex: 68 / F ADM Date: Loc: ER Attending Dr: Ordering Physician: Senia Jalloh Date of Service: 05/21/24 Procedure(s): XR chest 1V Accession Number(s): [id number] cc: Hannah Lynn M.D.; Senia Jalloh~ The [address] [address] Patient Name: LOREN MURILLO MRN: [id number] date: 1955 Sex: F Assigned Patient Location: ER Current Patient Location: ER Accession/Order Number: [id number] Exam Date: 05/21/2024 04:35 Report Date: 05/21/2024 05:54 At the request of: SEINA JALLOH Procedure: XR chest 1V EXAM: XR chest 1V HISTORY: fever, weakness COMPARISON: None. TECHNIQUE: Portable FINDINGS: LUNGS: No significant pulmonary parenchymal abnormalities. VASCULATURE: No increased pulmonary vasculature. PLEURA: No pneumothorax, effusion, or pleural thickening. Elevated right hemidiaphragm CARDIAC: No cardiomegaly or cardiac silhouette abnormality. MEDIASTINUM: No visible mass or adenopathy. BONES: No fracture or visible bone lesion. OTHER: Negative. XR/XR chest 1V IMPRESSION: No acute cardiopulmonary process Electronically authenticated by: TOM NEAL Date: 05/21/2024 05:54 Lab Data Lab results reviewed: Yes I reviewed the patient's lab results Labs: Lab Results 05/21/24 05/21/24 05/21/24 Range/Units 04:19 04:20 06:45 WBC 1.7 L (4.0-11.0) 10^3/uL RBC 4.65 (4.20-5.40) 10^6/uL Hgb 13.6 (12.0-16.0) g/dL Hct 41.1 (36.0-48.0) % MCV 88.4 (81.0-99.0) fL MCH 29.2 (26.7-34.0) pg MCHC 33.1 (29.9-35.2) g/dL RDW 14.3 (11.0-15.0) % Plt Count 82 L (150-450) 10^3/uL MPV 9.4 L (9.5-13.5) fL Seg Neuts % (Manual) 65.0 (43.0-75.0) Band Neutrophils % 1.0 (0-5) % Lymphocytes % (Manual) 12.0 L (20.5-60.0) % Atypical Lymphs % (Man) 4.0 % Monocytes % (Manual) 15.0 H (1.7-12.0) % Eosinophils % (Manual) 1.0 (0.9-7.0) % Basophils % (Manual) 0.0 L (0.2-2.0) % Myelocytes % 2.0 Neutrophils # (Manual) 1.10 L (1.4-6.5) 10^3/uL Band Neutrophils # 0.0 (0.0-0.3) 10^3/uL Lymphocytes # (Manual) 0.20 L (1.20-3.80) 10^3/uL Abs Atypical Lymphs Man 0.06 Monocytes # (Manual) 0.25 L (0.30-0.80) 10^3/uL Eosinophils # (Manual) 0.01 (0.00-0.70) 10^3/uL Basophils # (Manual) 0.00 (0.00-0.10) 10^3/uL Myelocytes # 0.03 Sodium 138 (136-145) mmol/L Potassium 2.6 L* (3.5-5.1) mmol/L Chloride 98 (98-107) mmol/L Carbon Dioxide 24.3 (21.0-32.0) mmol/L Anion Gap 18.3 BUN 19.0 H (7.0-18.0) mg/dL Creatinine 1.50 H (0.55-1.02) mg/dL Est GFR ( Amer) 42 L (>=60 mL/min/1.73m^2) Est GFR (Non-Af Amer) 35 L (>=60 mL/min/1.73m^2) BUN/Creatinine Ratio 12.7 Glucose 116 H (74-106) mg/dL Lactate 4.5 H* (0.4-2.0) mmol/L Calcium 9.5 (8.5-10.1) mg/dL Total Bilirubin 1.6 H (0.2-1.0) mg/dL AST 190 H (15-37) U/L ALT 93 H (14-59) U/L Alkaline Phosphatase 390 H (46-116) U/L Troponin I High Sens 935.3 H* (4.0-51.3) pg/mL Total Protein 7.0 (6.4-8.2) g/dL Albumin 2.4 L (3.4-5.0) g/dL Globulin 4.6 g/dL Albumin/Globulin Ratio 0.5 Urine Color Dk. yellow (YELLOW) Urine Clarity Cloudy A (CLEAR) Urine pH 5.5 (5.0-9.0) Ur Specific [place] 1.025 (1.005-1.025) Urine Protein >=300 A (NEG/TRACE) mg/dL Urine Glucose (UA) Negative (NEGATIVE) mg/dL Urine Ketones Trace A (NEGATIVE) mg/dL Urine Occult Blood Large A (NEGATIVE) Urine Nitrite Positive A (NEGATIVE) Urine Bilirubin Small A (NEGATIVE) Urine Urobilinogen 1.0 (0.2-1.0) EU/dL Ur Leukocyte Esterase Trace A (NEGATIVE) Urine RBC 10-20 A (0-2) #/HPF Urine WBC 20-50 A (NONE SEEN) #/HPF Ur Squamous Epith Cells Moderate A (NONE/RARE) #/LPF Urine Crystals Seen A (None Seen) #/HPF Amorphous Sediment Many Urine Bacteria Moderate A (NONE SEEN) #/HPF Urine Casts Seen A (NONE SEEN) #/LPF Fine Granular Casts Moderate Urine Mucus Small A (NONE SEEN) Influenza Type A Ag Negative Influenza Type B Ag Negative SARS-CoV-2 Ag (CV2AG) Negative (NEGATIVE) 05/21/24 05/21/24 Range/Units 07:25 08:13 WBC (4.0-11.0) 10^3/uL RBC (4.20-5.40) 10^6/uL Hgb (12.0-16.0) g/dL Hct (36.0-48.0) % MCV (81.0-99.0) fL MCH (26.7-34.0) pg MCHC (29.9-35.2) g/dL RDW (11.0-15.0) % Plt Count (150-450) 10^3/uL MPV (9.5-13.5) fL Seg Neuts % (Manual) (43.0-75.0) Band Neutrophils % (0-5) % Lymphocytes % (Manual) (20.5-60.0) % Atypical Lymphs % (Man) % Monocytes % (Manual) (1.7-12.0) % Eosinophils % (Manual) (0.9-7.0) % Basophils % (Manual) (0.2-2.0) % Myelocytes % Neutrophils # (Manual) (1.4-6.5) 10^3/uL Band Neutrophils # (0.0-0.3) 10^3/uL Lymphocytes # (Manual) (1.20-3.80) 10^3/uL Abs Atypical Lymphs Man Monocytes # (Manual) (0.30-0.80) 10^3/uL Eosinophils # (Manual) (0.00-0.70) 10^3/uL Basophils # (Manual) (0.00-0.10) 10^3/uL Myelocytes # Sodium (136-145) mmol/L Potassium (3.5-5.1) mmol/L Chloride (98-107) mmol/L Carbon Dioxide (21.0-32.0) mmol/L Anion Gap BUN (7.0-18.0) mg/dL Creatinine (0.55-1.02) mg/dL Est GFR ( Amer) (>=60 mL/min/1.73m^2) Est GFR (Non-Af Amer) (>=60 mL/min/1.73m^2) BUN/Creatinine Ratio Glucose (74-106) mg/dL Lactate 4.9 H* (0.4-2.0) mmol/L Calcium (8.5-10.1) mg/dL Total Bilirubin (0.2-1.0) mg/dL AST (15-37) U/L ALT (14-59) U/L Alkaline Phosphatase (46-116) U/L Troponin I High Sens 2125.5 H* (4.0-51.3) pg/mL Total Protein (6.4-8.2) g/dL Albumin (3.4-5.0) g/dL Globulin g/dL Albumin/Globulin Ratio Urine Color (YELLOW) Urine Clarity (CLEAR) Urine pH (5.0-9.0) Ur Specific [place] (1.005-1.025) Urine Protein (NEG/TRACE) mg/dL Urine Glucose (UA) (NEGATIVE) mg/dL Urine Ketones (NEGATIVE) mg/dL Urine Occult Blood (NEGATIVE) Urine Nitrite (NEGATIVE) Urine Bilirubin (NEGATIVE) Urine Urobilinogen (0.2-1.0) EU/dL Ur Leukocyte Esterase (NEGATIVE) Urine RBC (0-2) #/HPF Urine WBC (NONE SEEN) #/HPF Ur Squamous Epith Cells (NONE/RARE) #/LPF Urine Crystals (None Seen) #/HPF Amorphous Sediment Urine Bacteria (NONE SEEN) #/HPF Urine Casts (NONE SEEN) #/LPF Fine Granular Casts Urine Mucus (NONE SEEN) Influenza Type A Ag Influenza Type B Ag SARS-CoV-2 Ag (CV2AG) (NEGATIVE) ECG Data Attestation: I personally reviewed and interpreted this ECG as follows: (Sinus tachycardia at 127 bpm, normal axis, ST changes with moderate ST depression in leads II, aVF, V3, V4 V5 V6, no acute ST segment elevation) Critical Care Time Critical Care Time Total Critical Care Time: 40 Discharge Plan Discharge Chief Complaint: Fever Clinical Impression: Sepsis, Leukopenia, Thrombocytopenia, Elevated troponin, Acute kidney injury, Hypokalemia Prescriptions / Home Meds: No Action sumatriptan succinate 25 mg tablet 25 mg PO DAILY PRN (Reason: migraine headache) nitrofurantoin macrocrystal 100 mg capsule 100 mg PO Q12H fesoterodine 8 mg tablet extended release 24 hr PO hydrochlorothiazide 25 mg tablet 25 mg PO DAILY aspirin 81 mg tablet,delayed release (DR/EC) 81 mg PO DAILY meloxicam 15 mg tablet mirabegron [Myrbetriq] 50 mg tablet extended release 24 hr 50 mg PO DAILY Print Language: Croatian Referrals: Hannah Lynn MD [Primary Care Provider] - 1 week Documented by User: Fabien Chavarria MD 05/21/24 10:06 HPI HPI - General Adult General Chief complaint: Fever Stated complaint: fever Time Seen by Provider: 05/21/24 04:08 Related Data Home Medications ?Medication ?Instructions ?Recorded ?Confirmed aspirin 81 mg tablet,delayed 81 mg PO DAILY 05/21/24 05/21/24 release fesoterodine 8 mg tablet,extended mg PO 05/21/24 release 24 hr hydrochlorothiazide 25 mg tablet 25 mg PO DAILY 05/21/24 05/21/24 meloxicam 15 mg tablet mg 05/21/24 mirabegron 50 mg tablet,extended 50 mg PO DAILY 05/21/24 05/21/24 release 24 hr (Myrbetriq) nitrofurantoin macrocrystal 100 mg 100 mg PO Q12H 05/21/24 05/21/24 capsule sumatriptan succinate 25 mg tablet 25 mg PO DAILY PRN migraine 05/21/24 05/21/24 headache Allergies Allergy/AdvReac Type Severity Reaction Status Date / Time No Known Drug Allergies Allergy Verified 05/21/24 04:12 Opioid HPI Opioid Management Most Recent Opioid Data: Last Pain Scale 7 05/21/24 06:58 05/21/24 Last MAR Pain Assessment 05/21/24 06:58 Exam Constitutional Vital Signs, click to edit/add: Last Vital Signs Temp 98.8 F 05/21/24 04:05 Pulse 112 H 05/21/24 09:52 Resp 30 H 05/21/24 09:52 BP 98/60 05/21/24 10:00 Pulse Ox 92 L 05/21/24 09:52 O2 Del Method Room Air 05/21/24 04:05 O2 Flow Rate 2 05/21/24 07:38 Course Vital Signs Vital signs: Vital Signs Temperature 98.8 F 05/21/24 04:05 Pulse Rate 130 H 05/21/24 04:05 Respiratory Rate 18 05/21/24 04:05 Blood Pressure 111/73 05/21/24 04:05 Pulse Oximetry 94 L 05/21/24 04:05 Oxygen Delivery Method Room Air 05/21/24 04:05 Temperature 98.8 F 05/21/24 04:05 Pulse Rate 112 H 05/21/24 09:52 Respiratory Rate 30 H 05/21/24 09:52 Blood Pressure 98/60 05/21/24 10:00 Pulse Oximetry 92 L 05/21/24 09:52 Oxygen Delivery Method Room Air 05/21/24 04:05 Oxygen Delivery Flow Rate 2 05/21/24 07:38 Medical Decision Making MDM Narrative Medical decision making narrative: This 68-year-old female is brought to the emergency department by her from home. The patient had a well check with labs done at this facility last and shortly thereafter started having urinary symptoms with urinary frequency urgency and dysuria. She was prescribed Macrobid by her family physician. Her symptoms were not improving and over the weekend she started having shaking chills with generalized weakness and left lower quadrant abdominal and flank pain. She has had some mild chest pressure but denies any specific chest pain or shortness of breath. She has not had any dizziness or syncope. Her appetite has been decreased. According to the patient's she does have a history of kidney stones and had lithotripsy in the past but the stone was not completely dislodged and the patient was told that they were going to keep an eye on it . She has not had any symptoms since that time. The patient has becoming increasingly ill over the course of the weekend. She did take Tylenol around 2 AM. Upon arrival she was noted to be tachycardic with a low blood pressure. EKG done upon arrival was a sinus tachycardia at [address] changes. An IV was placed and normal saline was started. Septic workup was ordered. The patient has a markedly low white count at 1.7. Hemoglobin is stable at 13.6. Her platelet count is low at 82. She has 1 band. Lactic acid is elevated at 4.5. Her troponin is elevated at 935. She has elevated liver function tests. Potassium is low at 2.6. This was replaced orally and parenterally. Influenza and COVID testing is negative. CT scan of the abdomen pelvis with IV contrast was ordered and is pending at the time of this dictation. The patient's blood pressure after CT scanning is low in the 70s over 50s. She will receive additional liter of IV fluid. Empiric IV antibiotics were ordered and she was given 3.375 g of Zosyn and additional tylenol at her request. This is a note by Dr. Melgar. I assumed care of the patient at 7 AM. Patient's diagnosis is septic shock. CT confirmed obstruction with hydroureter and hydronephrosis on the left side. The patient was sequentially given 3 L of crystalloid with modest improvement of her blood pressure but she remained hypotensive. Her lactate levels increased. She had already been given intravenous antibiotic. Immediately upon returning her CT scan results we called a tertiary center in [place] because [place] has no urology coverage either. The tertiary center in [place] did not get back with us for over 1-1/2 hours so a secondary center was then contacted. During this time we are monitoring her closely and she was started on a Levophed drip to support her blood pressure after she failed to respond to aggressive crystalloid. Her repeat troponin level elevated as well. A Guevara catheter was placed so we could monitor urinary output. She did respond to the Levophed. [facility] did return our call promptly and she was excepted to ICU with report given to the network diagnostic support specialist at 9:54 AM. Ambulance's were then summoned to transport the patient. I mentioned to her and the that she is in very critical condition. Lab Data Labs: Lab Results 05/21/24 05/21/24 05/21/24 Range/Units 04:19 04:20 06:45 WBC 1.7 L (4.0-11.0) 10^3/uL RBC 4.65 (4.20-5.40) 10^6/uL Hgb 13.6 (12.0-16.0) g/dL Hct 41.1 (36.0-48.0) % MCV 88.4 (81.0-99.0) fL MCH 29.2 (26.7-34.0) pg MCHC 33.1 (29.9-35.2) g/dL RDW 14.3 (11.0-15.0) % Plt Count 82 L (150-450) 10^3/uL MPV 9.4 L (9.5-13.5) fL Seg Neuts % (Manual) 65.0 (43.0-75.0) Band Neutrophils % 1.0 (0-5) % Lymphocytes % (Manual) 12.0 L (20.5-60.0) % Atypical Lymphs % (Man) 4.0 % Monocytes % (Manual) 15.0 H (1.7-12.0) % Eosinophils % (Manual) 1.0 (0.9-7.0) % Basophils % (Manual) 0.0 L (0.2-2.0) % Myelocytes % 2.0 Neutrophils # (Manual) 1.10 L (1.4-6.5) 10^3/uL Band Neutrophils # 0.0 (0.0-0.3) 10^3/uL Lymphocytes # (Manual) 0.20 L (1.20-3.80) 10^3/uL Abs Atypical Lymphs Man 0.06 Monocytes # (Manual) 0.25 L (0.30-0.80) 10^3/uL Eosinophils # (Manual) 0.01 (0.00-0.70) 10^3/uL Basophils # (Manual) 0.00 (0.00-0.10) 10^3/uL Myelocytes # 0.03 Sodium 138 (136-145) mmol/L Potassium 2.6 L* (3.5-5.1) mmol/L Chloride 98 (98-107) mmol/L Carbon Dioxide 24.3 (21.0-32.0) mmol/L Anion Gap 18.3 BUN 19.0 H (7.0-18.0) mg/dL Creatinine 1.50 H (0.55-1.02) mg/dL Est GFR ( Amer) 42 L (>=60 mL/min/1.73m^2) Est GFR (Non-Af Amer) 35 L (>=60 mL/min/1.73m^2) BUN/Creatinine Ratio 12.7 Glucose 116 H (74-106) mg/dL Lactate 4.5 H* (0.4-2.0) mmol/L Calcium 9.5 (8.5-10.1) mg/dL Total Bilirubin 1.6 H (0.2-1.0) mg/dL AST 190 H (15-37) U/L ALT 93 H (14-59) U/L Alkaline Phosphatase 390 H (46-116) U/L Troponin I High Sens 935.3 H* (4.0-51.3) pg/mL Total Protein 7.0 (6.4-8.2) g/dL Albumin 2.4 L (3.4-5.0) g/dL Globulin 4.6 g/dL Albumin/Globulin Ratio 0.5 Urine Color Dk. yellow (YELLOW) Urine Clarity Cloudy A (CLEAR) Urine pH 5.5 (5.0-9.0) Ur Specific [place] 1.025 (1.005-1.025) Urine Protein >=300 A (NEG/TRACE) mg/dL Urine Glucose (UA) Negative (NEGATIVE) mg/dL Urine Ketones Trace A (NEGATIVE) mg/dL Urine Occult Blood Large A (NEGATIVE) Urine Nitrite Positive A (NEGATIVE) Urine Bilirubin Small A (NEGATIVE) Urine Urobilinogen 1.0 (0.2-1.0) EU/dL Ur Leukocyte Esterase Trace A (NEGATIVE) Urine RBC 10-20 A (0-2) #/HPF Urine WBC 20-50 A (NONE SEEN) #/HPF Ur Squamous Epith Cells Moderate A (NONE/RARE) #/LPF Urine Crystals Seen A (None Seen) #/HPF Amorphous Sediment Many Urine Bacteria Moderate A (NONE SEEN) #/HPF Urine Casts Seen A (NONE SEEN) #/LPF Fine Granular Casts Moderate Urine Mucus Small A (NONE SEEN) Influenza Type A Ag Negative Influenza Type B Ag Negative SARS-CoV-2 Ag (CV2AG) Negative (NEGATIVE) 05/21/24 05/21/24 Range/Units 07:25 08:13 WBC (4.0-11.0) 10^3/uL RBC (4.20-5.40) 10^6/uL Hgb (12.0-16.0) g/dL Hct (36.0-48.0) % MCV (81.0-99.0) fL MCH (26.7-34.0) pg MCHC (29.9-35.2) g/dL RDW (11.0-15.0) % Plt Count (150-450) 10^3/uL MPV (9.5-13.5) fL Seg Neuts % (Manual) (43.0-75.0) Band Neutrophils % (0-5) % Lymphocytes % (Manual) (20.5-60.0) % Atypical Lymphs % (Man) % Monocytes % (Manual) (1.7-12.0) % Eosinophils % (Manual) (0.9-7.0) % Basophils % (Manual) (0.2-2.0) % Myelocytes % Neutrophils # (Manual) (1.4-6.5) 10^3/uL Band Neutrophils # (0.0-0.3) 10^3/uL Lymphocytes # (Manual) (1.20-3.80) 10^3/uL Abs Atypical Lymphs Man Monocytes # (Manual) (0.30-0.80) 10^3/uL Eosinophils # (Manual) (0.00-0.70) 10^3/uL Basophils # (Manual) (0.00-0.10) 10^3/uL Myelocytes # Sodium (136-145) mmol/L Potassium (3.5-5.1) mmol/L Chloride (98-107) mmol/L Carbon Dioxide (21.0-32.0) mmol/L Anion Gap BUN (7.0-18.0) mg/dL Creatinine (0.55-1.02) mg/dL Est GFR ( Amer) (>=60 mL/min/1.73m^2) Est GFR (Non-Af Amer) (>=60 mL/min/1.73m^2) BUN/Creatinine Ratio Glucose (74-106) mg/dL Lactate 4.9 H* (0.4-2.0) mmol/L Calcium (8.5-10.1) mg/dL Total Bilirubin (0.2-1.0) mg/dL AST (15-37) U/L ALT (14-59) U/L Alkaline Phosphatase (46-116) U/L Troponin I High Sens 2125.5 H* (4.0-51.3) pg/mL Total Protein (6.4-8.2) g/dL Albumin (3.4-5.0) g/dL Globulin g/dL Albumin/Globulin Ratio Urine Color (YELLOW) Urine Clarity (CLEAR) Urine pH (5.0-9.0) Ur Specific [place] (1.005-1.025) Urine Protein (NEG/TRACE) mg/dL Urine Glucose (UA) (NEGATIVE) mg/dL Urine Ketones (NEGATIVE) mg/dL Urine Occult Blood (NEGATIVE) Urine Nitrite (NEGATIVE) Urine Bilirubin (NEGATIVE) Urine Urobilinogen (0.2-1.0) EU/dL Ur Leukocyte Esterase (NEGATIVE) Urine RBC (0-2) #/HPF Urine WBC (NONE SEEN) #/HPF Ur Squamous Epith Cells (NONE/RARE) #/LPF Urine Crystals (None Seen) #/HPF Amorphous Sediment Urine Bacteria (NONE SEEN) #/HPF Urine Casts (NONE SEEN) #/LPF Fine Granular Casts Urine Mucus (NONE SEEN) Influenza Type A Ag Influenza Type B Ag SARS-CoV-2 Ag (CV2AG) (NEGATIVE) Discharge Plan Discharge Chief Complaint: Fever Clinical Impression: Sepsis, Leukopenia, Thrombocytopenia, Elevated troponin, Acute kidney injury, Hypokalemia Prescriptions / Home Meds: No Action sumatriptan succinate 25 mg tablet 25 mg PO DAILY PRN (Reason: migraine headache) nitrofurantoin macrocrystal 100 mg capsule 100 mg PO Q12H fesoterodine 8 mg tablet extended release 24 hr PO hydrochlorothiazide 25 mg tablet 25 mg PO DAILY aspirin 81 mg tablet,delayed release (DR/EC) 81 mg PO DAILY meloxicam 15 mg tablet mirabegron [Myrbetriq] 50 mg tablet extended release 24 hr 50 mg PO DAILY Print Language: Croatian Referrals: Hannah Lynn MD [Primary Care Provider] - 1 week
[2024-05-21] MEDS: 0.9 % SODIUM CHLORIDE 1,000 ML 999 ML IV (04:27)
[2024-05-21] MEDS: ONDANSETRON PF 4 MG/2 ML VIAL IV (04:27)
[2024-05-21 04:33] LABS: Hematocrit 41.1 % (36.0-48.0); Hemoglobin 13.6 g/dL (12.0-16.0); Mean Corpuscular HGB Conc 33.1 g/dL (29.9-35.2); Mean Corpuscular Hemoglobin 29.2 pg (26.7-34.0); Mean Corpuscular Volume 88.4 fL (81.0-99.0); Mean Platelet Volume 9.4 fL (9.5-13.5); Platelet Count 82 10^3/uL (150-450); Red Blood Count 4.65 10^6/uL (4.20-5.40); Red Cell Distribution Width 14.3 % (11.0-15.0); White Blood Count 1.7 10^3/uL (4.0-11.0)
[2024-05-21 04:40] LABS: Influenza Virus A Antigen Negative; Influenza Virus B Antigen Negative; Internal Control Within Normal Limits
[2024-05-21 04:41] LABS: Internal Control Within Normal Limits; SARS-CoV-2 Ag NEGATIVE (NEGATIVE)
[2024-05-21 04:48] LABS: Alanine Aminotransferase 93 U/L (14-59); Albumin Globulin Ratio 0.5; Albumin Level 2.4 g/dL (3.4-5.0); Alkaline Phosphatase 390 U/L (46-116); Anion Gap 18.3; Aspartate Amino Transferase 190 U/L (15-37); BUN Creatinine Ratio 12.7; Bilirubin Total 1.6 mg/dL (0.2-1.0); Calcium 9.5 mg/dL (8.5-10.1); Carbon Dioxide 24.3 mmol/L (21.0-32.0); Chloride 98 mmol/L (98-107); Estimated GFR (African America 42 (>=60 mL/min/1.73m^2); Estimated GFR (Non-African Ame 35 (>=60 mL/min/1.73m^2); Globulin 4.6 g/dL; Glucose 116 mg/dL (74-106); Sodium 138 mmol/L (136-145)
[2024-05-21] MEDS: PIPERACILLIN SODIUM/TAZOBACTAM 3.375 GM in 0.9 % SODIUM CHLORIDE 50 ML IV (04:48)
[2024-05-21 04:50] LABS: Lactate/Lactic Acid 4.5 mmol/L (0.4-2.0); Potassium 2.6 mmol/L (3.5-5.1)
[2024-05-21 04:51] LABS: Troponin I High Sensitivity 935.3 pg/mL (4.0-51.3)
--- NOTE | 2024-05-21 04:57 | CT_ITS ---
[address] [address] Patient Name: LOREN MURILLO MRN: [id number] date: 1955 Sex: F Assigned Patient Location: ER Current Patient Location: Accession/Order Number: [id number] Exam Date: 05/21/2024 06:05 Report Date: 05/21/2024 07:00 At the request of: RHEA MARKER Procedure: CT abdomen pelvis w con EXAMINATION: CT abdomen pelvis w con HISTORY: LLQ abd pain/left flank pain , fever, weakness COMPARISON: CT abdomen pelvis 12/26/2019 TECHNIQUE: Axial, Coronal, and Sagittal images were obtained without and/or with IV contrast as indicated by examination type. Dose reduction techniques were achieved by using automated exposure control and/or adjustment of mA and/or kV according to patient size and/or use of iterative reconstruction technique. FINDINGS: LUNG BASES: No visible pulmonary or pleural disease. LIVER: No enlargement, atrophy, suspicious density, or significant focal lesion. BILIARY: Cholecystectomy. PANCREAS: No lesion, fluid collection, or abnormal duct dilatation. SPLEEN: No enlargement or focal lesion. ADRENALS: No mass or enlargement. KIDNEYS: Marked left hydronephrosis and hydroureter. Obstructing 15 x 9 x 9 mm stone within distal ureter adjacent the ureterovesical junction. Additional nonobstructing 14 mm stone versus adjacent stones within left kidney. BOWEL/MESENTERY: Mild diverticulosis of distal colon without acute inflammatory changes. No visible mass, obstruction, or bowel wall thickening. AORTA/VASCULAR: No aneurysm or dissection. RETROPERITONEUM: No mass or adenopathy. LYMPH NODES: No adenopathy. URINARY BLADDER: No visible focal wall thickening, lesion, or calculus. PELVIC ORGANS: Hysterectomy. ABDOMINAL WALL: Small supraumbilical ventral hernia with wide neck containing a portion of a loop of small bowel. Just below this level is a large 11.3 cm fat filled ventral hernia with wide neck. Small right inguinal hernia containing a short segment of small bowel. BONES: L5-S1 marked degenerative disc disease. Multilevel moderate degenerative disc disease. OTHER: Negative. CT/CT abdomen pelvis w con IMPRESSION: 1. Marked left hydronephrosis and hydroureter secondary to an obstructing 15 x 9 x 9 mm stone near the ureterovesical junction. 2. Additional nonobstructing stone within left kidney. 3. 2 ventral hernias in a right inguinal hernia without strangulation. Electronically authenticated by: EMILIANO CHAPMAN Date: 05/21/2024 07:00
[2024-05-21 04:59] LABS: Atypical Lymphocytes Abs Man 0.06; Eosinophils Absolute Manual 0.01 10^3/uL (0.00-0.70); Monocytes Absolute Manual 0.25 10^3/uL (0.30-0.80); Myelocytes Absolute Manual 0.03
[2024-05-21] MEDS: POTASSIUM CHLORIDE 10 MEQ ER TABLET 40 MEQ PO (06:00)
--- OUTSIDE RECORDS SUMMARY | 2024-05-21 06:23 | XMS_ITS | CCD ---
Author Organization [facility] Care Team Providers Care Healthcare Architect Name Role Phone SIDNEY PAGAN Attending Unavailable HANNAH SHOEMAKER Primary Care Unavailable HANNAH SHOEMAKER Referring Unavailable SIDNEY PAGAN Admitting Unavailable SIDNEY PAGAN Surgeon Unavailable HANNAH SHOEMAKER Primary Care Unavailable HANNAH SHOEMAKER Referring Unavailable [place] Procedure Practitioner Unavailab SIDNEY Jasso Admitting Unavailable [...] [SULFA (SULFONAMIDE ANTIBIOTICS)] Drug Allergy 02-18-20 [facility] (1 source) Sulfonamides (Antibiotic) Drug allergy (disorder) [facility] (3 sources) Sulfonamides (Antibiotic); Translations: [sulfa drugs] Drug allergy Unknown (qualifier value) [facility] [place] (4 sources) Substance with sulfonamide structure and antibacterial mechanism of action (substance) Drug allergy hives [employer] Other (3 sources) patient allergy list reviewed by nurse or physicia Propensity to adverse reactions 07-09-20 14 Comment:Done [employer] Other (3 sources) Allergies Reconciled Propensity to adverse reactions Unknown [employer] Other Medications Current Medications Medication Drug Class(es) [...] 90 Tablet; Provider: Sahara Young ( ) Iwnprxpn-Tgn-Ni-Lycopen-Lute in (Complete Mv Adult 50 Plus) 0.4 mg-300 mcg- 250 mcg tablet (3 sources) Start: 10-14-2023 take 1 tablet by mouth once daily Oassrzfd-Lic-Jb-Lycopen-Lutein (Complete Mv Adult 50 Plus) 0.4 mg-300 [...] Interpretation Reference Range Facility [facility] 01-17-2024 Screens [id number] F [facility] Ambulatory Visit Summaryon 0 01-16-2024 Ambulatory [...] for choosing us for your care. [facility] Patient Educationon 01-16-20 24 Patient Education [...] ? 8 oz (237 mL) of milk, oogcigt-nnasaednlqvx-gvw ry milk, and calcium-fortifiedfruit juice. Calcium-fortified means [...] Spinach (cooked), rhubarb, beets, sweet potatoes, and Martiniquais chard. ? Peanuts. ? Potato chips, hebrew fries, and baked potatoes with skin on. ? Nuts and nut products. ? Chocolate. ? If you regularly take a diuretic medicine, make sure to eat at least 1 or 2 servings of fruits or vegetables that are high in potassium each day. These include: ? Avocado. ? Banana. ? Spencer, prune, carrot, or tomato juice. ? Baked [...] fish oil, or vitamin B6. ? Take sdrm-bmc-wxdvnqp and prescription medicines only as told by your health care provider. These include supplements. What foods sh (more content not included)... Normal [facility] Urology Office/Clinic Noteon 01-16-2024 Urology Office/Clinic [...] Contact Information ADRIAN BENITEZ, THUY Holt, URL [address] [facility] [place] [address] Additional Instructions: 1.5 yr with KUB Patient [...] Glucose Urine (more content not included)... Normal [facility] Comment on above: Result Comment: Elec tronically Signed By: ADRIAN BENITEZ, THUY Zhou.br\Date and Time Signed: 01/16/24 13:45 EDT\.br\Electronically Co-Signed By: Hillary Camacho\.br\Date and Time Co-Signed: 01/16/24 12:33 EDT Influenza virus B Ag [Presen ce] in Upper respiratory specimen by Rapid immunoassayon 10-14-2023 FLUBV Ag IA.rapid Ql (Nph) Positive [facility] No Panel Informationon 10-13 Influenza Type A (Rapid) Negative [facility] POC SARS CoV-2 Antigen Negative [facility] XR KUB 1 VIEWon 08-09-2022 XR KUB [...] TOM NEAL Date: 2022-08-09 08:52 Normal [facility] CBC AUTO DIFFon 03-10-2022 BASO # 0.0 103/ul Normal 0.0-0.1 [facility] Comment on above: Performed By: #### H FPFCBC #### [facility] [address] [place] [address] Dr. Caitlin Winston Basophils/100 WBC (Bld) 0.4 % Normal 0.2-2.0 [facility] Comment on above: Performed By: #### H FPFCBC #### [facility] [address] [address] [address] Caitlin Winston EO # 0.2 103/ul Normal 0.0-0.7 [facility] Comment on above: Performed By: #### H FPFCBC #### [facility] [address] [place] [address] Dr. Caitlin Winston Eosinophils/100 WBC (Bld) 2.5 % Normal 0.9-7.0 [facility] Comment on above: Performed By: #### H FPFCBC #### [facility] [address] [place] [address] Dr. Caitlin Winston Erythrocyte distribution width (RBC) [Ratio] 13.5 % Normal 11.0-15.0 [facility] Comment on above: Performed By: #### H FPFCBC #### [facility] [address] [place] [address] Dr. Caitlin Winston Hematocrit (Bld) [Volume fraction] 41.9 % Normal 36.0-48.0 [facility] Comment on above: Performed By: #### H FPFCBC #### [facility] [address] [place] [address] Dr. Caitlin Winston Hemoglobin (Bld) [Mass/Vol] 13.7 g/dL Normal 12.0-16.0 [facility] Comment on above: Performed By: #### H FPFCBC #### [facility] [address] [place] [address] Dr. Caitlin Winston IG # 0.01 10e3/ul Normal 0.00-0.03 [facility] Comment on above: Performed By: #### H FPFCBC #### [facility] [address] [place] [address] Dr. Caitlin Winston IG % 0.1 % Normal 0.0-0.5 [facility] Comment on above: Performed By: #### H FPFCBC #### [facility] [address] [place] [address] Dr. Caitlin Winston LYMPH # 3.2 103/ul Normal 1.2-3.8 [facility] Comment on above: Performed By: #### H FPFCBC #### [facility] [address] [place] [address] Dr. Caitlin Winston Lymphocytes/100 WBC (Bld) 42.0 % Normal 20.5-60.0 [facility] Comment on above: Performed By: #### H FPFCBC #### [facility] [address] [place] [address] Dr. Caitlin Winston MCH (RBC) [Entitic mass] 29.4 pg Normal 26.7-34.0 [facility] Comment on above: Performed By: #### H FPFCBC #### [facility] [address] [place] [address] Dr. Caitlin Winston MCHC (RBC) [Mass/Vol] 32.7 g/dL Normal 29.9-35.2 [facility] Comment on above: Performed By: #### H FPFCBC #### [facility] [address] [place] [address] Dr. Caitlin Winston MCV (RBC) [Entitic vol] 89.9 fL Normal 81.0-99.0 [facility] Comment on above: Performed By: #### H FPFCBC #### [facility] [address] [place] [address] Dr. Caitlin Winston MONO # 0.5 103/ul Normal 0.3-0.8 [facility] Comment on above: Performed By: #### H FPFCBC #### [facility] [address] [place] [address] Dr. Caitlin Winston Monocytes/100 WBC (Bld) 7.1 % Normal 1.7-12.0 [facility] Comment on above: Performed By: #### H FPFCBC #### [facility] [address] [place] [address] Dr. Caitlin Winston NEUT # 3.6 103/ul Normal 1.4-6.5 [facility] Comment on above: Performed By: #### H FPFCBC #### [facility] [address] [place] [address] Dr. Caitlin Winston Neutrophils/100 WBC (Bld) 47.9 % Normal 43.0-75.0 [facility] Comment on above: Performed By: #### H FPFCBC #### [facility] [address] [place] [address] Dr. Caitlin Winston Platelet mean volume (Bld) [Entitic vol] 9.2 fL Critically low 9.5-13.5 [facility] Comment on above: Performed By: #### H FPFCBC #### [facility] [address] [place] [address] Dr. Caitlin Winston PLT 203 103/ul Normal 150-450 [facility] Comment on above: Performed By: #### H FPFCBC #### [facility] [address] [place] [address] Dr. Caitlin Winston RBC 4.66 106/ul Normal 4.20-5.40 [facility] Comment on above: Performed By: #### H FPFCBC #### [facility] [address] [place] [address] Dr. Caitlin Winston WBC 7.6 103/ul Normal 4.0-11.0 [facility] Comment on above: Performed By: #### H FPFCBC #### [facility] [address] [place] [address] Dr. Caitlin Winston [facility] PROFILEon 022 Albumin [Mass/Vol] 3.6 g/dL Normal 3.4-5.0 [facility] Comment on above: Performed By: #### H FPF #### [facility] [address] [place] [address] Dr. Caitlin Winston Albumin/Globulin [Mass ratio] 0.9 {ratio} Normal [facility] Comment on above: Performed By: #### H FPF #### [facility] [address] [place] [address] Dr. Caitlin Winston ALP [Catalytic activity/Vol] 87 U/L Normal 46-116 [facility] Comment on above: Performed By: #### H FPF #### [facility] [address] [place] [address] Dr. Caitlin Winston ALT [Catalytic activity/Vol] 20 U/L Normal 14-59 [facility] Comment on above: Performed By: #### H FPF #### [facility] [address] [place] [address] Dr. Caitlin Winston AST [Catalytic activity/Vol] 15 U/L Normal 15-37 [facility] Comment on above: Performed By: #### H FPF #### [facility] [address] [place] [address] Dr. Caitlin Winston Bilirubin [Mass/Vol] 0.4 mg/dL Normal 0.2-1.0 [facility] Comment on above: Performed By: #### H FPF #### [facility] [address] [address] [address] Caitlin Winston Calcium [Mass/Vol] 8.7 mg/dL Normal 8.5-10.1 [facility] Comment on above: Performed By: #### H FPF #### [facility] [address] [address] [address] Caitlin Winston Chloride [Moles/Vol] 102 mmol/L Normal 98-107 [facility] Comment on above: Performed By: #### H FPF #### [facility] [address] [address] [address] Caitlin Winston CHOL-HDL RATIO NORM SEE BELOW Normal [facility] Comment on above: Result Comment: 3.3 - 4.4 LOW RISK 4.4 - 7.1 AVERAGE RISK 7.1 - 11.0 MODERATE RISK >11.0 HIGH RISK Performed By: #### H FPF #### [facility] [address] [place] [address] Dr. Caitlin Winston Cholesterol [Mass/Vol] 180 mg/dL Normal <=200 [facility] Comment on above: Performed By: #### H FPF #### [facility] [address] [place] [address] Dr. Caitlin Winston Cholesterol in HDL [Mass/Vol] 57 mg/dL Normal 40-60 [facility] Comment on above: Performed By: #### H FPF #### [facility] [address] [address] [address] Caitlin Winston Cholesterol in LDL [Mass/Vol] 107.8 mg/dL Normal [facility] Comment on above: Performed By: #### H FPF #### [facility] [address] [place] [address] Dr. Caitlin Winston Cholesterol.total/ Cholesterol in HDL [Mass ratio] 3.2 {ratio} Normal [facility] Comment on above: Performed By: #### H FPF #### [facility] [address] [place] [address] Dr. Caitlin Winston CO2 [Moles/Vol] 28.3 mmol/L Normal 21.0-32.0 [facility] Comment on above: Performed By: #### H FPF #### [facility] [address] [address] [address] Caitlin Winston Creatinine [Mass/Vol] 0.63 mg/dL Normal 0.55-1.02 [facility] Comment on above: Performed By: #### H FPF #### [facility] [address] [address] [address] Caitlin Winston Globulin (S) [Mass/Vol] 3.8 g/dL Normal [facility] Comment on above: Performed By: #### H FPF #### [facility] [address] [address] [address] Caitlin Winston Glucose [Mass/Vol] 96 mg/dL Normal 74-106 [facility] Comment on above: Performed By: #### H FPF #### [facility] [address] [address] [address] Caitlin Winston HDL NORMAL > or = 60 mg/dl - LO W CARDIOVASCULAR RISK <40 mg/dl - HIGH CARDIOVASCULAR RISK Normal [facility] Comment on above: Performed By: #### H FPF #### [facility] [address] [address] [address] Caitlin Winston LDL CALC NORMAL SEE BELOW Normal [facility] Comment on above: Result Comment: <100 mg/dl OPTIMAL 100 - 129 mg/dl NEAR OR ABOVE OPTIMAL 130 - 159 mg/dl BORDERLINE HIGH 160 - 189 mg/dl HIGH >190 mg/dl VERY HIGH Performed By: #### H FPF #### [facility] [address] [address] [address] Caitlin Winston Potassium [Moles/Vol] 3.9 mmol/L Normal 3.5-5.1 [facility] Comment on above: Performed By: #### H FPF #### [facility] [address] [address] [address] Caitlin Winston Protein [Mass/Vol] 7.4 g/dL Normal 6.4-8.2 [facility] Comment on above: Performed By: #### H FPF #### [facility] [address] [address] [address] Caitlin Winston Sodium [Moles/Vol] 139 mmol/L Normal 136-145 [facility] Comment on above: Performed By: #### H FPF #### [facility] [address] [address] [address] Caitlin Winston Triglyceride [Mass/Vol] 76 mg/dL Normal <=150 [facility] Comment on above: Performed By: #### H FPF #### [facility] [address] [address] [address] Caitlin Winston TSH 2.462 uIU/mL Normal 0.358-3.740 [facility] Comment on above: Performed By: #### H FPF #### [facility] [address] [place] [address] Dr. Caitlin Winston Urea nitrogen [Mass/Vol] 23.0 mg/dL Critically high 7.0-18.0 [facility] Comment on above: Performed By: #### H FPF #### [facility] [address] [place] [address] Dr. Caitlin Winston Urea nitrogen/Creatinin e [Mass ratio] 36.5 mg/mg Normal [facility] Comment on above: Performed By: #### H FPF #### [facility] [address] [place] [address] Dr. Caitlin Winston VLDL CALC 15.2 mg/dL Normal [facility] Comment on above: Performed By: #### H FPF #### [facility] [address] [place] [address] Dr. Caitlin Winston Operative Reporton Operative Report MR#: [id number] [facility] Pt. Name: Sharri Murillo Room #: 0C [...] diameter, was closed by 1-0 PDS interrupted owszey-bo-jibvg sutures. Without significant tension. The inferior fascial defect is 5 cm in diameter. Which was closed by 1-0 PDS interrupted vqlnxb-bf-ayonx sutures without tension. Subcutaneous wound was irrigated [...] Pagan M.D. Date Trans: 02/25/2021 01:27 P/ [id number] Normal [facility] POC GLUCOSE LABon 02-22-2021 Glucose [Mass/Vol] 90 mg/dL Normal 70-100 [facility] Comment on above: Performed By: #### 8 5499 #### [address] ABDOMEN AND PELVIS W ORAL CONTRASTon 01-14-2021 CT ABDOMEN AND PELVIS W ORAL CONTRAST [facility] Department of Radiology [address] [place] [id number] == Patient Name: SHARRI MURILLO : 1955 Sex: F Age: Race: White Pt. Location: Patient Status: D Ordered Date: 01/05/2021 9:35:00 AM Completed Date: 01/14/2021 08:25 AM Requesting Provider: SIDNEY PAGAN Attending Provider: SIDNEY PAGAN Report Copy To: HANNAH SHOEMAKER Signs & Symptoms: K43.9 Ventral hernia without obstruction or gangrene I10 History: Saritha [phone] patient will need to come early to drink [employer] auth [id number] valid 01/07/2021-02/21/2021 per [employer]ore [id number] *kw Comments: Exam: CT ABDOMEN AND PELVIS [...] cholecystectomy. Electronically signed: Jill Karimi. Transcribed by: [email or web address], User Resident: Electronically Signed by: JILL KARIMI @ 01/15/2021 08:38 AM Normal [facility] Vital Signs Date Time Vital Sign Value Performing Clinician Adithya esteban 05-16-2024 10:44-0400 Body height 170.18 cm [facility] 05-16-2024 10:35-0400 Body mass index (BMI) [Ratio] 51 kg/m2 [facility] 05-16-2024 10:35-0400 Body weight 147.87 kg [facility] 05-16-2024 10:35-0400 Diastolic blood pressure 88 mm[Hg] [facility] 05-16-2024 10:35-0400 Heart rate 77 /min [facility] 05-16-2024 10:35-0400 Systolic blood pressure 129 mm[Hg] [facility] 01-16-2024 09:18-0400 Blood Pressure Location THUY CAMPBELL [facility] 01-16-2024 09:18-0400 Diastolic blood pressure 72 mm[Hg] THUY ADRIAN [facility] 01-16-2024 09:18-0400 Heart rate 68 /min THUY ADRIAN [facility] 01-16-2024 09:18-0400 Respiratory rate 16 /min THUY ADRIAN [facility] 01-16-2024 09:18-0400 Systolic blood pressure 133 mm[Hg] THUY ADRIAN [facility] 10-25-2023 09:30-0400 Body height 170.18 cm [facility] 10-25-2023 09:30-0400 Body mass index (BMI) [Ratio] 51.2 kg/m2 [facility] 10-25-2023 09:30-0400 Body weight 148.32 kg [facility] 10-25-2023 09:30-0400 Diastolic blood pressure 84 mm[Hg] [facility] 10-25-2023 09:30-0400 Heart rate 95 /min [facility] 10-25-2023 09:30-0400 SaO2% (BldA) [Mass fraction] 96 % [facility] 10-25-2023 09:30-0400 Systolic blood pressure 122 mm[Hg] [facility] 10-14-2023 12:49-0400 Body height 170.18 cm [facility] 10-14-2023 12:49-0400 Body mass index (BMI) [Ratio] 52 kg/m2 [facility] 10-14-2023 12:49-0400 Body temperature 98.4 [degF] [facility] 10-14-2023 12:49-0400 Body weight 150.59 kg [facility] 10-14-2023 12:49-0400 Heart rate 64 /min [facility] 10-14-2023 12:49-0400 Respiratory rate 18 /min [facility] 10-14-2023 12:49-0400 SaO2% (BldA) [Mass fraction] 97 % [facility] Encounters Encounter Date Encounter Type Care Provider Facility Start: 05-16-2024 End: 05-16-2024 ambulatory [facility] Work Phone: Start: 05-16-2024 End: 05-16-2024 Patient encounter procedure [facility] Work Phone: Start: 01-16-2024 End: 01-16-2024 ambulatory THUY CAMPBELL Facility:[facility] Start: 01-16-2024 End: 01-16-2024 Patient encounter procedure THUY CAMPBELL [facility] Start: 10-25-2023 End: 10-25-2023 ambulatory [facility] Work Phone: Start: 10-25-2023 End: 10-25-2023 Patient encounter procedure [facility] Work Phone: Start: 10-14-2023 End: 10-14-2023 ambulatory [facility] Work Phone: Start: 10-14-2023 End: 10-14-2023 Patient encounter procedure [facility] Work Phone: Start: 03-14-2023 End: 03-14-2023 ambulatory Hannah Shoemaker Other [employer] Other Start: 03-14-2023 Telephone encounter Hannah Shoemaker [facility] Start: 03-09-2023 End: 03-09-2023 ambulatory Hannah Shoemaker Other [employer] Other Start: 03-09-2023 Telephone encounter Hannah Shoemaker [facility] Start: 02-16-2023 End: 02-16-2023 ambulatory Hannah Shoemaker Other [employer] Other Start: 02-16-2023 Telephone encounter Hannah Shoemaker [facility] Start: 02-09-2023 End: 02-09-2023 ambulatory Hannah Shoemaker Other [employer] Other Start: 02-09-2023 Telephone encounter Hannah Shoemaker [facility] Start: 08-10-2022 End: 08-10-2022 Lab Drop off THUY CAMPBELL [facility] Start: 08-08-2022 End: 08-09-[address] DOCTOR CHAVARRIA Facility:[facility] Start: 03-10-2022 End: 03-11-[address] HANNAH SHOEMAKER Facility: Start: 02-22-2021 End: 02-23-2021 ambulatory SIDNEY PAGAN Facility:[facility] Start: 01-14-2021 End: 01-15-2021 ambulatory SIDNEY PAGAN Facility:[facility] Procedures Date Procedure Procedure Detail Performing Clinician Start: 02-22-2021 ANESTH REPAIR OF HERNIA SIDNEY PAGAN Start: 02-22-2021 REREPAIR VENTRL DENTON REDUCE SIDNEY PAGAN Start: 02-03-2020 Extracorporeal shock wave lithotripsy of calculus of kidney THUY CAMPBELL Start: 11-21-2018 History of arthropla sty of left knee THUY CAMPBELL Start: 09-21-2018 Total replacement of right knee joint THUY CAMPBELL Comment on above: [facility] Start: 08-23-2018 Pre-surgery evaluation Hannah Shoemaker Other Start: 08-31-2017 Screening mammography M justa Shoemaker Other Cholecystectomy THUY ANDRADE Hysterectomy THUY CAMPBELL Removal of suture Hannah Wang un Other Repair of right ingu inal hernia THUY CAMPBELL Comment on above: unknown year Plan of Treatment Date Care Activity Detail Author Comprehensive metabo lic 2000 panel - Serum or Plasma [facility] enter MG Breast - bilateral Screening [facility] Immunizations Immunization Date Immunization Notes Care Provider Fa cility 06-09-2023 zoster vaccine recombinant THUY CAMPBELL [facility] 02-07-2023 zoster vaccine recombinant THUY CAMPBELL [facility] 06-01-2021 SARS-CoV-2 (COVID-19 ) mRNA BNT-162b2 vax THUY CAMPBELL [facility] Comment on above: Result Comment: 2022: [id number] 09-25-2020 SARS-CoV-2 (COVID-19 ) mRNA BNT-162b2 vax THUY CAMPBELL [facility] 09-04-2020 SARS-CoV-2 (COVID-19 ) mRNA BNT-162b2 vax THUYJASMYNE CAMPBELL [facility] Payers Date Payer Category Payer Self-pay [id number] 1957 Unknown [id number] 1955 Unknown [id number] 1955 Unknown [id number] 1955 Unknown [id number] 1955 Unknown [id number] Medicare [id number] Medicare [facility] [id number] Self-pay Self Pay [id number] Unknown [id number] Social History Date Type Detail Facility Start: 08-10-2022 End: 10-25-2023 Tobacco smoking status Ex-smoker (finding) [facility] Sex Assigned At Female [facility] Start: 1955 Sex Assigned At Female F [facility] Tobacco smoking status Never [facility] Functional Status Date Assessment Result Facility 01-16-2024 Functional Status N/A [facility] Clinical Notes 01-16-2024 Note Date & Type [...] include: ?8 oz (237 mL) of milk, appyjje-rxkvdxuwqlhz-gzfui milk, and calcium-fortifiedfruit juice. Calcium-fortified means that [...] ?Spinach (cooked), rhubarb, beets, sweet potatoes, and Martiniquais chard. ?Peanuts. ?Potato chips, hebrew fries, and baked potatoes with skin on. ?Nuts and nut products. ?Chocolate. If you regularly take a diuretic medicine, make sure to eat at least 1 or 2 servings of fruits or vegetables that are high in potassium each day. These include: ?Avocado. ?Banana. ?Spencer, prune, carrot, or tomato juice. ?Baked potato. [...] magnesium, fish oil, or vitamin B6. Take awmv-cng-jdckxkz and prescription medicines only as told by [...] Casseroles. Pizza. Lasagna. Frozen meals. Potato chips. Kazakh fries. The items listed above may not [...] provider. Document Revised: 10/20/2022 Document Reviewed: 10/20/2022 Loop Patient Education 2022 [employer]. Follow Up Care 08/10/2022 15:34:44 With:THUY CAMPBELL PA-C, URL Address: [address] [place] [address] When: Unknown [facility] 01-16-2024 Note - From: Elva Zamora To: - Administrative; Sent: 01/16/2024 09:51:59 EDT Show up: 01/15/2025 09:51:00 EDT Subject: 18 month F/U with KUB Due Date/Time: 07/07/2025 09:51:00 EST Reminder/Recall Patient needs scheduled with ANDREA for an 18m f/u with KUB, due back 07/07/2025 [facility] Evaluation + Plan note Future Appointments Appointment Date:01/10/2024 03:00:00 PM Scheduled Provider:THUY CAMPBELL PA-C Location:[facility] Appointment Type:URO Office Visit Diagnostic Tests PendingUrine Culture 08/10/22 [facility] Evaluation note No Information [employer] Other Evaluation note No assessment inform ation available [facility] Work Phone: Evaluation note Diagnosis Onset Date Influenza B noneactive Bronchitis acute [facility] Work Phone: Evaluation note* Diagnosis Onset Date Resolution Status Hypertension acute Screening mammogram for breast cancer acute [facility] Work Phone: History general Narrative - Reported* Type Description Date Medical History HTN Surgical History hysterectomy Surgical History gallbladder removal Surgical History hernia Hospitalization History see above [employer] Other Hospital course Narrative No data available for this section [facility] No data available for this section [facility] No data available for this section [facility] Summary Purpose Family History Relationship Condition Age [...] and content) DATE CREATED AUTHOR 02/27/[address] [facility] DATE CREATED AUTHOR AUTHOR'S ORGANIZ ATION 08/09/2022 [facility] DATE CREATED AUTHOR AUTHOR'S ORGANIZ ATION 01/18/2024 [facility] Patient Care team informatio n (unrecognized [...] End: October 25, 2023 Thuy Chaney APRN PEDIATRIC ONCOLOGY NURSE-C Attending Provider Act jose Start: October 25, [...] BE BASED ON THE PRIMARY CLINICAL RECORDS. [facility], [facility]. provides no warranty or guarantee of the accuracy or completeness of information in this document.
[2024-05-21] MEDS: POTASSIUM CHLORIDE IN WATER 10 MEQ/100 ML PREMIX 100 MEQ IV (06:30)
[2024-05-21] MEDS: 0.9 % SODIUM CHLORIDE 1,000 ML 1000 ML IV ×2 (06:53→07:39)
[2024-05-21 06:57] LABS: Bilirubin Urine SMALL (NEGATIVE); Blood Urine LARGE (NEGATIVE); Clarity Urine CLOUDY (CLEAR); Color Urine DK. YELLOW (YELLOW); Glucose Urine UA NEGATIVE (NEGATIVE); Ketones Urine TRACE mg/dL (NEGATIVE); Leukocyte Esterase Urine TRACE (NEGATIVE); Nitrite Urine POSITIVE (NEGATIVE); Protein Urine >=300 mg/dL (NEG/TRACE); Specific Gravity Urine 1.025 (1.005-1.025); Urine Microscopic Indicated YES; pH Urine 5.5 (5.0-9.0)
[2024-05-21] MEDS: ACETAMINOPHEN 325 MG TABLET 650 MG PO (06:58)
[2024-05-21 07:09] LABS: Bacteria Urine MODERATE #/HPF (NONE SEEN); WBC Urine 20-50 #/HPF (NONE SEEN)
[2024-05-21 07:10] LABS: Mucus Urine SMALL (NONE SEEN); Squamous Epithelial Cell Urine MODERATE #/LPF (NONE/RARE)
[2024-05-21 07:11] LABS: Amorphous Sediment Urine MANY; Cast Seen? SEEN #/LPF (NONE SEEN); Crystals Seen? Seen #/HPF (None Seen); Fine Granular Casts Urine MODERATE
[2024-05-21 08:05] LABS: Lactate/Lactic Acid 4.9 mmol/L (0.4-2.0)
[2024-05-21 08:48] LABS: Troponin I High Sensitivity 2125.5 pg/mL (4.0-51.3)
[2024-05-21] MEDS: NOREPINEPHRINE BITARTRATE/D5W 4 MG/250 ML PREMIX 30 MG IV (09:07)
--- NOTE | 2024-05-21 14:48 | ECG_ITS ---
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
[2024-05-21 16:39] LABS: A. calcoaceticus-baumannii Cpx NOT DETECTED (NOT DETECTE); Bacteroides fragilis NOT DETECTED (NOT DETECTE); Candida albicans NOT DETECTED (NOT DETECTE); Candida auris NOT DETECTED (NOT DETECTE); Candida glabrata NOT DETECTED (NOT DETECTE); Candida krusei NOT DETECTED (NOT DETECTE); Candida parapsilosis NOT DETECTED (NOT DETECTE); Candida tropicalis NOT DETECTED (NOT DETECTE); Cryptococcus neoformans/gattii NOT DETECTED (NOT DETECTE); Enterobacter cloacae complex NOT DETECTED (NOT DETECTE); Enterococcus faecalis NOT DETECTED (NOT DETECTE); Enterococcus faecium NOT DETECTED (NOT DETECTE); Haemophilus influenzae NOT DETECTED (NOT DETECTE); Klebsiella aerogenes NOT DETECTED (NOT DETECTE); Klebsiella pneumoniae group NOT DETECTED (NOT DETECTE); Listeria monocytogenes NOT DETECTED (NOT DETECTE); Neisseria meningitidis NOT DETECTED (NOT DETECTE); Proteus spp. NOT DETECTED (NOT DETECTE); Pseudomonas aeruginosa NOT DETECTED (NOT DETECTE); Salmonella spp. NOT DETECTED (NOT DETECTE); Serratia marcescens NOT DETECTED (NOT DETECTE); Staphylococcus epidermidis NOT DETECTED (NOT DETECTE); Staphylococcus lugdunensis NOT DETECTED (NOT DETECTE); Staphylococcus spp. NOT DETECTED (NOT DETECTE); Stenotrophomonas maltophilia NOT DETECTED (NOT DETECTE); Streptococcus agalactiae NOT DETECTED (NOT DETECTE); Streptococcus pneumoniae NOT DETECTED (NOT DETECTE); Streptococcus pyogenes NOT DETECTED (NOT DETECTE); Streptococcus spp. NOT DETECTED (NOT DETECTE)
[2024-05-21 18:10] LABS: CTX-M NOT DETECTED (NOT DETECTE)
[2024-05-21 18:12] LABS: IMP NOT DETECTED (NOT DETECTE); KPC NOT DETECTED (NOT DETECTE); NDM NOT DETECTED (NOT DETECTE); OXA-48-like NOT DETECTED (NOT DETECTE); Source Blood; VIM NOT DETECTED (NOT DETECTE); mcr-1 NOT DETECTED (NOT DETECTE)
[2024-05-21 18:14] LABS: Enterobacterales DETECTED (NOT DETECTE)
== END 2024-05-21 11:42 | disposition short-term general hospital (02) ==
PROVIDERS: Emergency Medicine; Emergency Provider Emergency Medicine Emergency Medical Services; PCP Family Medicine
DX: A41.9 Sepsis, unspecified organism (principal); D69.6 Thrombocytopenia, unspecified; R79.89 Other specified abnormal findings of blood chemistry; N17.9 Acute kidney failure, unspecified; E87.6 Hypokalemia; D72.819 Decreased white blood cell count, unspecified; Z87.442 Personal history of urinary calculi; Z20.822 Contact with and (suspected) exposure to COVID-19
CPT/HCPCS: 36415; 51702; 71045; 74177; 80053; 81001; 83605; 84484; 85007; 85027; 87040; 87086; 87150; 87804; 87811; 93005; 96365; 96367; 96375; 99285; J2405; J2543; J3480; Q9966

== ENCOUNTER 2024-05-30 15:23 | Outpatient (OUT) | payer OTHER, SELFPAY ==
[2024-05-30 16:18] LABS: Basophils Percent Auto 0.4 % (0.2-2.0); Eosinophils Absolute Auto 0.1 10^3/uL (0.0-0.7); Eosinophils Percent Auto 1.2 % (0.9-7.0); Hematocrit 37.2 % (36.0-48.0); Hemoglobin 12.1 g/dL (12.0-16.0); Immature Granulocytes Abs Auto 0.05 10^3/uL (0.00-0.03); Immature Granulocytes Pct Auto 0.5 % (0.0-0.5); Lymphocytes Absolute Auto 2.6 10^3/uL (1.2-3.8); Lymphocytes Percent Auto 27.1 % (20.5-60.0); Mean Corpuscular HGB Conc 32.5 g/dL (29.9-35.2); Mean Corpuscular Hemoglobin 29.4 pg (26.7-34.0); Mean Corpuscular Volume 90.3 fL (81.0-99.0); Mean Platelet Volume 9.5 fL (9.5-13.5); Monocytes Absolute Auto 0.7 10^3/uL (0.3-0.8); Monocytes Percent Auto 6.9 % (1.7-12.0); Neutrophils Percent Auto 63.9 % (43.0-75.0); Platelet Count 315 10^3/uL (150-450); Red Blood Count 4.12 10^6/uL (4.20-5.40); Red Cell Distribution Width 14.5 % (11.0-15.0); White Blood Count 9.4 10^3/uL (4.0-11.0)
[2024-05-30 16:40] LABS: Alanine Aminotransferase 62 U/L (14-59); Albumin Globulin Ratio 0.6; Alkaline Phosphatase 130 U/L (46-116); Anion Gap 14.3; Aspartate Amino Transferase 33 U/L (15-37); BUN Creatinine Ratio 15.9; Bilirubin Total 0.4 mg/dL (0.2-1.0); Calcium 9.8 mg/dL (8.5-10.1); Carbon Dioxide 27.9 mmol/L (21.0-32.0); Chloride 102 mmol/L (98-107); Estimated GFR (African America >60 (>=60 mL/min/1.73m^2); Estimated GFR (Non-African Ame >60 (>=60 mL/min/1.73m^2); Globulin 4.7 g/dL; Glucose 99 mg/dL (74-106); Potassium 4.2 mmol/L (3.5-5.1); Sodium 140 mmol/L (136-145); Total Protein 7.7 g/dL (6.4-8.2)
== END 2024-05-30 15:24 | disposition home or self-care (01) ==
LOC: LAB 15:24
PROVIDERS: PCP Family Medicine; Visit Provider Family Medicine
DX: R79.89 Other specified abnormal findings of blood chemistry (principal); A41.9 Sepsis, unspecified organism
CPT/HCPCS: 36415; 80053; 85025

== ENCOUNTER 2025-05-20 10:51 | Outpatient (OUT) | payer MEDICARE, SELFPAY ==
--- OUTSIDE RECORDS SUMMARY | 2025-05-20 06:48 | XMS_ITS | Continuity of Care Document ---
Author Organization [facility] Address [address] [place] [address] Phone Care Team Providers Care Roving Can Tender Name Role Phone Hannah Lynn MD Primary Care Provider Community, Outreach Attending Provider Hannah Lynn MD Attending Provider [phone] Care Teams Patient Care Team Team Status: Active Member Role/Relationship Status Dates Hannah Lynn MD Primary Care Provider Active Visit Care Team Team Status: Inactive Member Role/Relationship Status Dates Hannah Lynn MD Primary Care Provider Active Start: April 08, 2025 End: April 08, 2025Outreach CommunityAttending ProviderActiveStart: April 08, 2025 End: April 08, 2025 Patient Care Team Team Status: Inactive Member Role/Relationship Status Dates Hannah Lynn MD Primary Care Provider Active Start: May 20, 2025 End: May 20, 2025Hannah Lynn MDAttending ProviderActiveStart: May 20, 2025 End: May 20, 2025 Chief Complaint and Reason for Visit Chief Complaint Admit Date Screening April 08, 2025 8:27am Pain in leg at night May 20, 2025 10:06am Reason for Visit Admit Date Left lumbar radiculopathy May 20, 2025 10:06am Allergies, Adverse Reactions, Alerts Allergen Type Severity Reaction Last Updated Verified Status Sulfa (Sulfonamide Antibiotics) Allergy Unknown hives May 20 10:13am Yes Active Social History Smoking Status Status Start Date End Date Date of Observa tion Ex-smoker (finding) May 19, 2025 9:44am Observation Status Observation Response Date of Response Legal Sex Female (finding) Sex Assigned At BirthFemaly 1955 Family History Relationship Condition Age at Onset Recorded Date/T blayne father History of malignant neoplasm of prostate Unknown DeceasedUnknownMalignant neoplasmUnknownmotherDeceasedUnknownDiabetes mellitus UnknownHypertensionUnknown Problems Active Problems Problem Diagnosis/Recorded Date Onset Date Stat Screening mammogram for breast cancer May 16 11:07am Unknown Active Overactive bladder October 14, 2023 12:45pm Unknown Active Elevated liver function tests May 30, 2024 3:51p m Unknown Active Wellness examination May 22, 2024 1:03pm Unknown Active Migraine October 14, 2023 12:45pm Unknown Act jose Postural dizziness with presyncope August 19, 2024 11:17am Unknown Active Left lumbar radiculopathy May 20, 2025 10:35am U nknown Active Bronchitis October 25, 2023 9:50am Unknown Activ e Hypertension October 14, 2023 12:45pm Unknown Act jose Inactive/Resolved Problems Problem Diagnosis/Recorded Date Onset Date Stat us Sepsis May 30, 2024 3:52pm Unknown Re solved Medications Medication Status Dose Units Route Directions Qty Days Refills S tart Date Stop Date End Date Reason(s) Instructions Adherence Mirabegron (Myrbetriq) 50 mg tablet extended release 24 hr Discontinued 50 MG PO Daily 90 0April 2023 11:00amJune 2023 1:03pmMeloxicam 15 mg tabletDiscontinued 0.ROUTE.ZWFBARO728Mrawq 2023 11:00amFebruary 2024 5:18pmTAKE 1 TABLET DAILYFesoterodine (Toviaz) 8 mg tablet extended release 24 lsVlxibdohjvxa1LBYR Zvxoq135Qwf 2023 8:37amMay 2023 8:38amFesoterodine (Toviaz) 8 mg tablet extended release 24 kjEhswhdepadkb4EGKFNcfeq633Kps 2023 8:37amJune 2023 3:40pmFesoterodine 8 mg tablet extended release 24 hrDiscontinued0 .ROUTE.RBQFVGH089Mewv 2023 3:40pmJuly 2023 10:42amTAKE 1 TABLET BY MOUTH EVERY DAYMirabegron (Myrbetriq) 50 mg tablet extended release 24 hr Shdkfeidvwis81QLQDKbgiz860Rnjk 2023 1:03pmFebruary 2024 5:18pm Fesoterodine 8 mg tablet extended release 24 hrDiscontinued0.ROUTE.AOMTCYN620 February 13, 2024 10:42amNovember 2023 11:23amTAKE 1 TABLET BY MOUTH EVERY DAYFesoterodine 8 mg tablet extended release 24 hrDiscontinued0.ROUTE.TGEPOZE163 June 05, 2024 11:23amMarch 2024 11:40amTAKE 1 TABLET BY MOUTH EVERY DAYHydrochlorothiazide 25 mg pprqkoOvdiek96XUYXOfcsz744Aijmxsul 2024 5:17pm FreeTextSig: TAKE 1 TABLET DAILY; Note: Source Status: Start; Refills: 3; Qty: 90 Tablet; Provider:Leah Young ( )Complies with drug therapy Meloxicam 15 mg tabletDiscontinued0.ROUTE.GWTZEBY099Ttkoecmq 3rd, 2025 5:17pm February 28, 2025 8:47amTAKE 1 TABLET DAILYMirabegron (Myrbetriq) 50 mg tablet extended release 24 qaRqsslxoyjgqw86KFANDazda977Thxfrfzg 2024 5:17pmMarch 2024 11:40amSumatriptan Succinate 25 mg tabletActive0.ROUTE.INMULTR07GfcyvSeptember 24, 2024 1:33pmTAKE 1 TAB AT ONSET OF HEADACHE IF NO RELIEF MAY REPEAT 1 TAB AFTER 2HRS *MAX 4/24HR*Complies with drug therapyOxybutynin Chloride 5 mg tablet Uvfwcrsrvsdc7DOALJoezv344Jaqbx 2024 12:00amJune 2024 9:28amTrospium 20 mg ufoaqtPsspzdtlezkg07BRWDIzrno febny0101Xvidw 2024 12:00amJune 2024 9:28amadminister on an empty stomachOxybutynin Chloride 5 mg tablet Tgbgjehtljsm9PSIMXixgo660Okqq 2024 9:28amSeptember 2024 8:24am Trospium 20 mg ogxifvJyvvoemirzdm50FCDTWdlyq ncpss4291Abvf 2024 9:28am March 31, 2025 8:24amadminister on an empty stomachMeloxicam 15 mg tablet Active0.ROUTE.YPNNKRQ252Ydfsdm 2024 8:47amTAKE 1 TABLET DAILYComplies with drug therapyOxybutynin Chloride 5 mg rcgyyiXileoc7GDUKQemhr759Afywhsvuu 8th, 2025 8:24amComplies with drug therapyTrospium 20 mg gvmehnWekise66MATIUdqil hnnjx9429Riravpjir 8th, 2025 8:24amadminister on an empty stomachComplies with drug therapyAzithromycin 250 mg nlykcyVzpugkjlcone9KS.VCATKHC79Xplqjvw 2024 12:00amOctober 2024 10:14amFor 250 mg dose pack: take 500 mg today (day 1), then 250 mg for 4 days (days 2-5) POAzithromycin 250 mg tablet Ztkvszxnonng759HBPEwsqui439Nuamb 2023 12:00amOctober 2023 10:40am Bronchitis Bronchitis, not specified as acute or chronicTake 2 tablets today and then 1 tablet for the next 4 daysBenzonatate 200 mg mdfqfetMjlorwcmlwbb593UOQXXiqgv times daily as needed for zoagq84378Vbjeh 2023 12:00amOctober 2023 10:41amBronchitis Bronchitis, not specified as acute or chronicValacyclovir 500 mg tablet Rygdktfwizbe563SQTMWqndm dailyNov2023 1:00amOctober 2024 10:15amGabapentin 100 mg koymdxlKpovbcatshsi658ZEMLAeeql times dailySc[facility]2023 1:00amOctober 2024 10:14amHydrochlorothiazide 25 mg tablet Huvoijgbciqp14KMFGBvzpcUacfm 2023 12:00amFebruary 2024 5:18pm FreeTextSig: TAKE 1 TABLET DAILY; Note: Source Status: Start; Refills: 3; Qty: 90 Tablet; Provider:Leah Young ( )Fesoterodine (Toviaz) 8 mg tablet extended release 24 rjIxffaouhjvkl0HOSVUmqbyRwjtj 2023 12:00amMay 2023 8:37amAspirin 81 mg tablet,tupugrewWptnve45ZDIZPwzqjSbmgx 2023 12:00amComplies with drug xvscgbbDcsvqasy-Gsj-Ml-Lycopen-Lutein (Complete Mv Adult 50 Plus) 0.4 mg-300 mcg- 250 mcg onmhxvWtanpb8LYTXBOwuthFursk 2023 12:00amComplies with drug therapyMeloxicam 15 mg vdhvgiNtgbuyyykmxu26ISXPDilep October 14, 2023 12:00amApril 2023 11:00amFreeTextSig: TAKE 1 TABLET DAILY; Note: Source Status: Taking; Refills: 3; Qty: 90 Tablet; Provider: Leah Young ( )Mirabegron 50 mg tablet extended release 24 xtHvikggzkhzrb41FU PODailyMarch 2023 12:00amApril 2023 11:00amFreeTextSig: TAKE 1 TABLET DAILY; Note: Source Status: Taking; Refills: 3; Qty: 90 Tablet; Provider: Leah Young ( )Ergotamine-Caffeine 1-100 mg tabletDiscontinued1 TABPOOnce as neededDunlap Memorial Hospital 2023 12:00amOctober 2023 12:33pm FreeTextSig: Orally; Note: Source Status: Taking; Provider: Leah Young ( )Prednisone 20 mg ksdvzgUawmmcrqqrfk98XTFHGtiyb kelos7198Zgszq 2023 12:00amApril 2023 9:34amSumatriptan Succinate 25 mg tabletDiscontinued 0PO.GNTYKLH18Sutfcvw 2023 12:00amMarch 2024 1:33pmtake 1 tab at onset of headache; if no relief may repeat 1 tab after at least 2 hrs; max = 4 tabs/24 hr PONitrofurantoin Macrocrystal 100 mg whxwryyRtfqrdxkgdsd077MVAFLhuat gehsq843 May 17, 2024 12:00amNovember 2023 3:53pmmust administer with a meal/foodTamsulosin 0.4 mg capsuleDiscontinued0.4MGPODailyJanuary 2024 1:00amOctober 2024 10:15amTizanidine 2 mg jgdubxMubbob8WZZMIpudr at bedtime as needed for muscle ennzxosbih993Pfchsbt 2024 12:00amComplies with drug therapy Relevant Diagnostic Tests and/or Laboratory Data Diagnostic Imaging Reports Author Jovany Heart Grant HospitalAuthoredSeptember 2024 2:08pmReport Dictated Date/TimeDictated ByStatusRadiology ReportSeptember 2024 2:08pm Pritesh StuartOur [facility] of [facility] Main Hustler [address] [place] [address] Ultrasound Report Signed Patient: Sharri Catalan MR#: [id number] 80 : 1955 Acct:[id number] Age/Sex: 69 / F ADM Date: 5 Loc: Room: Type: [facility] Attending Dr: Magdi Community Ordering Provider: MAGDI AVILES Date of Service: 04/08/25 US/ community outreach carotid: SCREENING Copies to: [facility] ~ CAROTID DUPLEX INDICATION: [facility] outreach carotid screening program. PROCEDURE: Color-flow duplex scanning is used to interrogate the extracranial carotid arterial system, as well as both vertebral arteries. The proximal right internal carotid artery shows a highest peak systolic velocity of 84.5 cm/s with an end-diastolic velocity of 18.1 cm/s . The mid internal carotid artery measur es 107 cm/s peak systolic with an end-diastolic velocity of 32.1 cm/s . The distal segment measures 62.4 cm/s peak systolic with an end diastolic velocity of 17.3 cm/s . The velocities of the right common carotid artery are 136 cm/s peak systolic and 22.7 cm/s end-diastolic proximally and 132 cm/s peak systolic and 26.7 cm/s end-diastolic distally. The peak systolic velocity ratio of the internal to the common carotid artery is 0.79 . The proximal left internal carotid artery shows a highest peak systolic velocity of 121 cm/s with an end-diastolic velocity of 26.9 cm/s . The mid internal carotid artery measures 138 cm/s peak systolic with an end-diastolic velocity of 39 cm/s . The distal segment measures 130 cm/s peak systolic with an end diastolic velocity of 33.8 cm/s . The velocities of the left common carotid artery are 140 cm/s peak systolic and 24.3 cm/s end-diastolic proximally and 129 cm/s peak systolic and 25.1 cm/s end-diastolic distally. The peak systolic velocity ratio of the internal to the common carotid artery is 0.99 . /[facility] carotid IMPRESSION: NO HEMODYNAMICALLY SIGNIFICANT STENOSIS OF EITHER EXTRACRANIAL INTERNAL CAROTID ARTERY. Impression dictated by: Jovany Heart MD,FACS,FSVS 04/08/2025 2:08 PM Dictation Location: [facility]04 Tech: Lamar Frannie Transcribed By: PWS 04/08/251407 Dictated By: Jovany Heart MD 04/08/251407 Signed By: <Electronically signed by Jovany Heart MD in OV> 04/08/251407 Author Jovany Heart [facility] HospitalAuthoredSeptember 2024 2:08pmReport Dictated Date/TimeDictated ByStatusRadiology ReportSeptember 2024 2:08pm Jovany Heart [facility] Main Hustler [address] [place] [address] Ultrasound Report Signed Patient: Sharri Catalan MR#: [id number] 80 : 1955 Acct:[id number] Age/Sex: 69 / F ADM Date: 5 Loc: Room: Type: [facility] Attending Dr: Magdi [facility] Ordering Provider: MAGDI AVILES Date of Service: 04/08/25 /[facility] KATY: SCREENING Copies to: [facility] ~ LOWER EXTREMITY SEGMENTAL ARTERIAL DOPSCAN (PVR) INDICATION: [facility] PAD screening program. PROCEDURE: Right arm blood pressure is 183 , left is 178 . Pressures at the right ankle are 185 using the dorsalis pedis artery with ankle-brachial index of 1.01 . Pressures at the left ankle are 184 with ankle-brachial index of 1.01 . Wave forms by plethysmography are normal. /[facility] KATY IMPRESSION: NO HEMODYNAMICALLY SIGNIFICANT PERIPHERAL VASCULAR OCCLUSIVE DISEASE AT REST IN EITHER LOWER EXTREMITY. Impression dictated by: Jovany Heart MD,FACS,FSVS 04/08/2025 2:09 PM Dictation Location: [place] [address] Tech: Shira Vilchis Transcribed By: KAMILAH 04/08/25 140 Dictated By: Jovany Heart MD 04/08/251407 Signed By: <Electronically signed by Jovany Heart MD in OV> 04/08/25 140 Author Milton Yap Grant HospitalAuthoredSeptember 2024 3:29pmReport Dictated Date/TimeDictated ByStatusRadiology ReportSeptember 2024 3:29pm Chaya HerreraAC[facility] Healthcare System Main Hustler [address] [place] [address] Ultrasound Report Signed Patient: Sharri Catalan MR#: [id number] 80 : 1955 Acct:[id number] Age/Sex: 69 / F ADM Date: 5 Loc: Room: Type: [facility] Attending Dr: Magdi [facility] Ordering Provider: MAGDI AVILES Date of Service: 04/08/25 US/US [facility] outreach aorta: SCREENING Copies to: MAGDI AVILES ~ Aorta screening ultrasound HISTORY: Screening exam Normal caliber abdominal aorta. US/US [facility] outreach aorta IMPRESSION: No abdominal aortic aneurysm. Impression dictated by: Milton Yap M.D. 04/08/2025 3:29 PM Dictation Location: [place] [address] Tech: Lamar Kathleen Transcribed By: KAMILAH 04/08/25 152 Dictated By: Milton Yap DO 04/08/25 152 Signed By: <Electronically signed by Milton Yap DO in OV> 04/08/25 152 Vital Signs Vital Reading Result Reference Range Collection Date/Time Height 67 [in_i] May 20, 2025 10:22zaKqoefq653.78 kgOctober 2024 10:09amHeart Rate73 /eoj67-508Sybbhjx 2024 10:09amBP Sqmgfxla145 mm[Hg]100-140October 2024 10:09amBP Andusbvbc84 mm[Hg]60-100October 2024 10:09amBMI (Body Mass Index)49.6 kg/b4Vqpjxwd 2024 10:09am Advance Directives Advance Directive Response Recorded Date/ Time Advance Directives No May 19, 2025 9:44am Insurance Providers Guarantor Sharri Catalan Navj[employer] Address [address] [place], [place] [address]Contact Info.Home Phone: Coverage Status Update:2024 Payer Group Member ID Coverage Type Subscriber Relationship to Subscriber Effective Date Expiration Date MMO Id: [id number] Hay , [employer] Id: [id number] [address] [place] [address] Home Phone: SelfMedicare [id number] Hay , Navjot Id: [id number] [address] [place] [address] Home Phone: [employer] [facility] Id: [id number] Hay , M Id: [id number] [address] [place] [address] Home Phone: [employer] [facility] PFFS [id number] Ramos Id: [id number] [address] [place] [address] Home Phone: Self Encounters Encounter Location(s) Arrival/Admit Date Discharge/Departure Date Discharge/Departure Disposition Provider(s) Departed Referred -Community Outreach April 08, 2025 8:27am April 08, 2025 8:28am Discharged to home care or self care (routine discharge) OUTREACH COMMUNITY Departed Physician/ Provider Office Visit -[facility] May 20, 2025 10:06am May 20, 2025 10:42am Discharged to home care or self care (routine discharge) Hannah Lynn MD Recent Diagnosis Onset Date Admit Date Left lumbar radiculopathy Unknown Octobe r 2024 10:06am Assessments Diagnosis Onset Date Resolution Status Admit Date Left lumbar radiculopathy acuteOctober 2024 10:06am Plan of Treatment Future Tests Future scheduled test information is unavailable Pending Tests Test Name Ordered Date Scheduled Date XR lumbar spine 2-3V* May 20, 2025 10:34am Future Visits Future appointment information is unavailable Future Procedures Future procedure information is unavailable Future Medications Future medication information is unavailable Patient Instructions Patient instructions are unavailable
--- OUTSIDE RECORDS SUMMARY | 2025-05-20 10:59 | XMS_ITS | Clinical Summary ---
Author Organization [facility] Address [address] [place] [address] Care Team Providers Care Instrumentation Tech Name Role Phone Unavailable Primary Care Provider Unavailabl e Social History Tobacco UseTypesPacks/DayYears UsedDateSmoking Tobacco: Never Assessed CommentsUnknownSex and Gender InformationValueDate RecordedSex Assigned at Not on fileLegal PyqDshcof11/15/2023 7:31 PM EDTGender IdentityNot on fileSexual OrientationNot on file Last Filed Vital Signs Vital SignReadingTime TakenCommentsBlood Pressure--Pulse--Temperature-- Respiratory Rate--Oxygen Saturation--Inhaled Oxygen Concentration--Uuvpvi527 kg (289 lb)06/18/2018 12:00 PM JXPVkwdko192.7 cm (5' 8 )06/18/2018 12:00 PM ESTBody Mass Index43.9406/18/2018 12:00 PM EST Plan of Treatment Not on file
--- OUTSIDE RECORDS SUMMARY | 2025-05-20 10:59 | XMS_ITS | Clinical Summary ---
Author Organization [facility] Address [address] [place] [address] Care Team Providers Care Director Of Reimbursement Name Role Phone Unavailable Primary Care Provider Unavailabl e Social History Tobacco UseTypesPacks/DayYears UsedDateSmoking Tobacco: Never AssessedUT Safety & EnvironmentAnswerDate RecordedFear of Current or Ex-PartnerNot on file 09/14/2023Emotionally AbusedNot on file09/14/2023hysically AbusedNot on file 09/14/2023Sexually AbusedNot on file09/14/2023hysically or Sexually AbusedNot on file09/14/2023CommentsUnknownSex and Gender InformationValueDate RecordedSex Assigned at BirthNot on fileLegal UwgKwbnak83/29/2022 10:32 PM EDT Gender IdentityNot on fileSexual OrientationNot on file Last Filed Vital Signs Vital SignReadingTime TakenCommentsBlood Zlmhrduv085/7308 1:49 PM EDT Penib588303/10/2021 1:49 PM VTRXoabdngayih45.6 ??C (97.9 ??F)03/10/2021 1:49 PM EDTRespiratory Rate--Oxygen Saturation--Inhaled Oxygen Concentration--Nocpsq848 kg (320 lb)03/10/2021 1:47 PM CQXUepmaw958.7 cm (5' 8 )03/10/2021 1:47 PM EDT Body Mass Index48.66003/10/2021 1:47 PM EDT Plan of Treatment Health MaintenanceDue DateLast DoneCommentsCT Rtvbeauoizje56/20/1958Colonoscopy 1955Colorectal Cancer Ovnxdlkdw94/20/1958FIT-DNA1957FIT1955 FOBT1955 3640Dlnaeynmobyrf56/20/1958Depression Ohqzsddwv96/20/1970Adult Tetanus 12/11/19794677Banqpajix49/20/1998Pneumococcal Vaccine: 50+ Years (1 of 1 - PCV) 12/11/2007Zoster Vaccines (1 of 2)12/11/2007Fall Risk Bimdqgakr24/20/2023COVID- 19 Vaccine (1 - 2024- season)2025Influenza Vaccine (#1)2025HIB VaccinesAged OutNo longer eligible based on patient's age to complete this topic HPV VaccinesAged OutNo longer eligible based on patient's age to complete this topicIPV VaccinesAged OutNo longer eligible based on patient's age to complete this topicMeningococcal B VaccineAged OutNo longer eligible based on patient's age to complete this topicMeningococcal VaccineAged OutNo longer eligible based on patient's age to complete this topicRotavirus VaccinesAged OutNo longer eligible based on patient's age to complete this topic Insurance
--- OUTSIDE RECORDS SUMMARY | 2025-05-20 10:59 | XMS_ITS | Clinical Summary ---
Author Organization [facility] Address [id number] [address] [place] [address] Care Team Providers Care Mid Level Net Developer Name Role Phone Hannah Lynn MD Primary Care Provider [phone] Allergies Active AllergyReactionsCriticalityNoted DateCommentsSulfa (Sulfonamide Antibiotics)XfcbkIyj32/03/2024 Medications MedicationSigDispense QuantityRefillsLast FilledStart DateEnd DateStatus aspirin 81 mg chewable tablet Indications:myocardial infarction preventionChew 1 tablet (81 mg total) and swallow in the morning. Indications: treatment to prevent a heart attack. 10/14/2023ctive fesoterodine (TOVIAZ) 8 mg tablet extended release 24 hr Indications:urinary urgencyTake 1 tablet (8 mg total) by mouth in the morning. Indications: urinary urgency, or the sudden urge to urinate.02/13/2024ctive hydroCHLOROthiazide (HYDRODIURIL) 25 mg tablet Indications:edemaTake 1 tablet (25 mg total) by mouth daily Indications: visible water retention.10/14/2023ctive qjyyyfii-idzg-BO-calcium &mins (THERAGRAN-M) 9 mg iron-400 mcg tablet Take 1 tablet by mouth in the morning.Active meloxicam (MOBIC) 15 mg tablet Indications:osteoarthritisTake 1 tablet (15 mg total) by mouth in the morning. Indications: joint damage causing pain and loss of function.Active SUMAtriptan (IMITREX) 25 mg tablet Take 1 tablet (25 mg total) by mouth once as needed for migraine.05/16/2024 Active mirabegron (MYRBETRIQ) 50 mg tablet extended release 24 hr Indications:urinary urgencyTake 1 tablet (50 mg total) by mouth in the morning. Indications: urinary urgency, or the sudden urge to urinate.Active ascorbic acid, vitamin C, (VITAMIN C) 1000 mg tablet Take 1 tablet (1,000 mg total) by mouth in the morning.Active cholecalciferol, vitamin D3, 2,000 units tablet Take 1 tablet (2,000 Units total) by mouth in the morning.Active zinc gluconate 50 mg tablet Take 1 tablet (50 mg total) by mouth in the morning.Active oxybutynin (DITROPAN) 5 mg tablet Take 1 tablet (5 mg total) by mouth in the morning.5Active trospium (SANCTURA) 20 mg tablet Take 1 tablet (20 mg total) by mouth in the morning and 1 tablet (20 mg total) before bedtime.5Active Active Problems ProblemNoted DateDiagnosed DateMineral metabolism xyzurswe75/10/2025 Overview (02/05/2025): ==== 02/05/2025 ==== 24 urine was reviewed. Higher sodium higher urine calcium low citrate. Volume about 1750. Plan: Add another 500 cc to fluid. Add citrate either supplement or lemon juice concentrate. Limit sodium in the diet. Return clinic in 1 year with a KUB ==== 12/31/2024 ==== Calcium level 9. Stone calcium oxalate monohydrate. Family history stones Plan: 24 urine litho link x1 return clinic Kidney stone06/27/2024 Overview (12/31/2024): ==== 12/31/2024 ==== she did have some residual left mild hydro. I chance the headed chance to look at her CT urogram. There was no evidence of any obstruction. No filling defects. Nothing consistent with any current obstruction. She just has a dilated system that will always be that way. There is asmall nonobstructing stone on left. Calcium level fine. Creatinine is fine. 11/20/24: Seen as a consult for septic stone. Status post left ureteroscopy/ureteral dilatation 06/28/2024. Repeat ureteroscopy 08/08/2024. Stent removed 09/11/2024. Stone was 100% calcium oxalate monohydrate. Follow-up ultrasound 11/11/2024 showed a dilated left renal pelvis and a 5 mm nonobstructing stone in the left kidney. No pain. We will start with CT urogram. She would benefit from metabolic evaluation down the road Assessment & Plan (11/20/2024 1:06 PM EDT): Dr. Chen performed her procedures but she would like to see a doctor that goes to [place]. Calculus of ureterovesical junction (UVJ)05/30/2024Septic shock05/21/2024 Immunizations ImmunizationAdministration DatesNext DueZoster Vaccine Qoilcmaaxix83/17/2023, 02/07/2023 Family History Medical HistoryRelationNameCommentsNephrolithiasisBrother 1CancerFatherProstate cancerFatherDiabetesMotherPeripheral vascular diseaseMotherNephrolithiasisSister 1NephrolithiasisSister 2Anesthesia problemsNeg HxBleeding DisorderNeg HxBreast cancerNeg HxClotting disorderNeg HxColon cancerNeg HxHeart attackNeg HxOvarian cancerNeg HxStrokeNeg HxRelationNameStatusCommentsBrother 1AliveBrother 2Alive Brother 3AliveBrother 4DeceasedChildAliveFatherDeceasedMaternal Grandfather DeceasedMaternal GrandmotherDeceasedMotherDeceasedPaternal GrandfatherDeceased Paternal GrandmotherDeceasedSister 1AliveSister 2Alive Social History Tobacco UseTypesPacks/DayYears UsedDateSmoking Tobacco: FormerCigarettesQuit: 1998Passive Smoke Exposure: PastSmokeless Tobacco: Never Tobacco Cessation:Counseling Given: Not Answered Comments:0.5ppd smoked on & off for about 20 years Alcohol UseStandard Drinks/WeekCommentsNever0 (1 standard drink = 0.6 oz pure alcohol)[facility] UtilitiesAnswerDate RecordedIn the past 12 months has the electric, gas, oil, or water company threatened to shut off services in your home?No 4AUDIT-CAnswerDate RecordedQ1: How often do you have a drink containing alcohol?Never06/27/2024Q2: How many drinks containing alcohol do you have on a typical day when you are drinking?Patient does not drink06/27/2024Q3: How often do you have six or more drinks on one occasion?Never06/27/2024HQ-2AnswerDate RecordedTotal Mjyvi75308/28/2023RAPARE - TransportationAnswerDate RecordedIn the past 12 months, has lack of transportation kept you from medical appointments or from getting medications?No06/27/2024In the past 12 months, has lack of transportation kept you from meetings, work, or from getting things needed for daily living?No06/27/2024Housing InstabilityAnswerDate RecordedAre you worried or concerned that in the next two months you may not have stable housing that you own, rent or stay in as a part of a household?No06/27/2024hildcareAnswer Date RlibaioiDbdmltxxdJydqqdc64/13/2019EmploymentAnswerDate RecordedEmployment Egcuyiw4201/03/2019Hunger ScreeningAnswerDate RecordedWithin the past 12 months we worried whether our food would run out before we got money to buy more.Never True02/05/2025Within the past 12 months the food we bought just didn't last and we didn't have money to get more.Never True02/05/2025Purpose - LifeAnswerDate RecordedPurpose and direction in kmcjXsmhlpa81/11/2021CommentsNoSex and Gender InformationValueDate RecordedSex Assigned at BirthNot on fileLegal Sex Jzdobk4605/08/2018 4:09 PM EDTGender IdentityNot on fileSexual OrientationNot on file Last Filed Vital Signs Vital SignReadingTime TakenCommentsBlood Ntpjigjs347/9902/05/2025 12:14 PM EDT Pt. states they had a difficult drive to this office.Xgtxb959302/05/2025 12:14 PM JKILomjlxeombe11.8 ??C (98.3 ??F)09/11/2024 7:06 AM ESTRespiratory Rate18 09/11/2024 7:47 AM ESTOxygen Okxlpykysn94%09/11/2024 7:47 AM ESTInhaled Oxygen Concentration--Jpaund498.4 kg (314 lb)02/05/2025 12:14 PM QUYCqvjhb380.2 cm (5' 7 )02/05/2025 12:14 PM EDTBody Mass Index49.18002/05/2025 12:14 PM EDT Plan of Treatment DateTypeDepartmentCare Team (Latest Contact Info)Bezuhhbisfz74/27/2026 1:00 PM EDTOffice Visit [facility] [address] [place] [address] [place] [address] [place] [address] Omar Preston MD [facility] [place] [address] Health MaintenanceDue DateLast DoneCommentsStatin Use: Wqjecnoixujiwt36/20/1956 Adult BMI Follow Up Plan12/11/1975DTaP,Tdap and Td Vaccines (1 - Tdap)1976 Fall Risk Uzssykcpb48/20/2023OVID-19 Vaccine (2 - season)2025 06/01/2021Influenza Ifgwrjd5003/24/2025Depression Kcpgndexn57/11/2023 Adult BMI Bzpbjahjv26/Tobacco Pqiyetabf50/ Zoster (Shingles) VnuqtmgEspabzxau49/17/2023, 02/07/2023 Goals GoalPatient Goal TypeAssociated ProblemsRecent ProgressPatient-Stated?Author Return Home Tess Peterson RN Note: Evaluation of progress towards goal: safe transition home with home care and support. Medical Devices ExplantedTypeAreaManufacturerDevice IdentifierShelf Expiration DateModel / Serial / LotStent Uret 6fr 26cm 2 Pgtl Crv Rdpq Pstnr Mfl [facility] - [id number] Implanted:Qty: 1 on 06/28/2024 by Ronaldo Chen MD at [facility] Explanted:Qty: 1 on 08/08/2024 [facility]: [employer] Lanjyahocstd37/23/[id number] / / [id number]:NO STRINGSStent Uret 6fr 26cm 2 Pgtl Crv Rdpq Pstnr Mfl [facility] [id number] Implanted:Qty: 1 on 08/08/2024 by Ronaldo Chen MD at [facility] Explanted:Qty: 1 on 09/11/2024 by [facility]: [employer] Wbqfnfenrseg79/07/[id number] / / [id number] Insurance * Guarantor: Sharri Catalan TypeRelation to PatientDate of BirthPhone Billing AddressPersonal/ZeuiomJfev60/[birth year][address] [address] Advance Directives * Full Code (Latest Code Status on File) Date ActivatedDate FkxrsvxfvvtDoksdryo96/5/2024 7:46 PM06/28/2024 9:02 PM * Full Code Date ActivatedDate JzqajkobsbaOehlyjsj19/29/2024 1:36 PM05/26/2024 7:56 PM Care Teams Team MemberRelationshipSpecialtyStart DateEnd Date Hannah Lynn MD [address] [place] [address] PCP - GeneralFamily Fqhzkqhm85/29/24
--- NOTE | 2025-05-20 11:02 | XR_ITS ---
The [address] [address] Patient Name: LOREN MURILLO MRN: [id number] date: 1955 Sex: F Assigned Patient Location: [facility] Current Patient Location: [facility] Accession/Order Number: [id number] Exam Date: 05/20/2025 11:08 Report Date: 05/20/2025 15:55 At the request of: OLMAN SHOEMAKER MD Procedure: XR lumbar spine 2-3V LUMBAR SPINE - 3 views CLINICAL HISTORY: Left Lumbar Radiculopathy M54.16 COMPARISON: None FINDINGS: Vertebral body heights appear maintained. Diffuse mild to moderate degenerative disc disease worst at L5-S1. Diffuse facet joint degenerative changes with approximately 5 mm of anterolisthesis of L3 on L4. SI joints also demonstrate degenerative change. XR/XR lumbar spine 2-3V IMPRESSION: DIFFUSE MILD TO MODERATE DEGENERATIVE DISC DISEASE WORST AT L5-S1. Impression dictated by: Tj Esqueda Jr.OPrashant 05/20/2025 3:55 PM Dictation Location: [place] [address] Electronically authenticated by: [id number] Y Date: 05/20/2025 15:55
--- OUTSIDE RECORDS SUMMARY | 2025-05-20 11:06 | XMS_ITS | CCD ---
Author Organization [facility] Care Team Providers Care Reheat Furnace Operator Name Role Phone SIDNEY PAGAN Attending Unavailable OLMAN SHOEMAKER Primary Care Unavailable OLMAN SHOEMAKER Referring Unavailable SIDNEY PAGAN Admitting Unavailable SIDNEY PAGAN Surgeon Unavailable OLMAN SHOEMAKER Primary Care Unavailable OLMAN SHOEMAKER Referring Unavailable [place] Procedure Practitioner Unavailab SIDNEY Jasso Admitting Unavailable SIDNEY PAGAN Attending Unavailable MISC, DR SHAH Admitting Unavailable MISC, DR SHAH Attending Unavailable SAHARA, DR OLMAN Holt Primary Care Unavailable CHERYL NAIR, DR INA Vargas Consulting Unavailnasreen SHOEMAKER, DR OLMAN Holt Admitting Unavailable SAHARA, DR OLMAN Holt Attending Unavailable SAHARA, DR OLMAN Holt Primary Care Unavailable SAHARA, DR OLMAN Holt Consulting Unavailable OLMAN SHOEMAKER Primary Care Physician Olman Shoemaker Unavailable Olman Shoemaker MD Primary Care Provider [phone] RYAN BENITEZ Admitting Unavailable RYAN BENITEZ Attending Unavailable FABIEN RIVERA Referring Unavailable OLMAN SHOEMAKER Primary Care Unavailable DIONY DUMONT Consulting UnavailMARIBEL Albarran Consulting Unavailable DANA REYNOSO Referring Unavailable OLMAN SHOEMAKER Primary Care Unavailable WILL BOLDEN Referring Unavailable OLMAN SHOEMAKER Primary Care Unavailable OLMAN SHOEMAKER Referring Unavailable OLMAN SHOEMAKER Primary Care Unavailable ESME CHEN Admitting Unavailable ESME CHEN Attending Unavailable ESME CHEN Referring Unavailable OLMAN SHOEMAKER Primary Care Unavailable ESME CHEN Referring Unavailable OLMAN SHOEMAKER Primary Care Unavailable ESME CHEN Admitting Unavailable ESME CHEN Attending Unavailable OLMAN SHOEMAKER Primary Care Unavailable ESME CHEN Referring Unavailable OLMAN SHOEMAKER Primary Care Unavailable ESME CHEN Admitting Unavailable ESME CHEN Attending Unavailable SAHARA, OLMAN E Primary Care Unavailable Olman Shoemaker MD Primary Care Provider SHOEMAKER, OLMAN E Referring Unavailable SHOEMAKER, OLMAN E Primary Care Unavailable ESME CHEN Attending Unavailable ESME CHEN Referring Unavailable SHOEMAKER, OLMAN E Primary Care Unavailable ESME CHEN Attending Unavailable ESME CHEN Referring Unavailable SHOEMAKER, OLMAN E Primary Care Unavailable LOC MARIA I Referring Unavailable SHOEMAKER, OLMAN E Primary Care Unavailable LOC MARIA I Referring Unavailable SHOEMAKER, OLMAN E Primary Care Unavailable SHOEMAKER, OLMAN E Referring Unavailable SHOEMAKER, OLMAN E Primary Care Unavailable SHOEMAKER, OLMAN E Referring Unavailable SHOEMAKER, OLMAN E Primary Care Unavailable LOC MARIA I Attending Unavailable SHOEMAKER, OLMAN E Referring Unavailable SHOEMAKER, OLMAN E Primary Care Unavailable ALEKSANDRA SANDOVAL Attending Unavailable SHOEMAKER, OLMAN E Referring Unavailable SHOEMAKER, OLMAN E Primary Care Unavailable ALEKSANDRA SANDOVAL Attending Unavailable SHOEMAKER, OLMAN E Referring Unavailable SHOEMAKER, OLMAN E Primary Care Unavailable Olman Shoemaker MD Primary Care Provider [phone] Community, Outreach Attending Provider [phone] Community, Outreach Attending Unavailable Community, Outreach Admitting Unavailable Shoemaker, Olman E Primary Care Unavailable THUY CAMPBELL Attending Unavailable Allergies Allergy ClassificationReported Allergen(s)Allergy TypeDate of OnsetReaction(s) FacilitySulfonamides (antibiotic) (1 source)Sulfonamides (Antibiotic); Translations: [SULFA (SULFONAMIDE ANTIBIOTICS)]Drug Rkktehl22-47-4610Gdl [facility] (1 source)Sulfonamides (Antibiotic)Drug allergy (disorder)[facility] (3 sources)Sulfonamides (Antibiotic); Translations: [sulfa drugs]Drug allergy Unknown (qualifier value)[facility] [place] (18 sources)Substance with sulfonamide structure and antibacterial mechanism of action (substance)Drug lyyamet62-57-1690jnbqg, Other (See Comments)[facility] Other (3 sources)patient allergy list reviewed by nurse or physiciaPropensity to adverse qkrszsrke47-18-9933Ychtvnm:DoneNortGRID Other (3 sources)Allergies ReconciledPropensity to adverse reactionsFreeman Orthopaedics & [facility] Other (7 sources)Sulfonamides (Antibiotic); Translations: [SULFA (SULFONAMIDE ANTIBIOTICS)]Propensity to adverse reactions to drug (disorder)10-25-2023 [facility] Medications Current Medications MedicationDrug Class(es)DatesSig (Normalized)Sig (Original)Acetaminophen (1 source)Start: 49-88-8144bjqxdlqhoeoue (TYLENOL) tablet 650 mgascorbic acid 1000 mg oral tablet (15 sources)Vitamin Ctake 1 tablet by mouth in the morningascorbic acid, vitamin C, (VITAMIN C) 1000 mg tablet Take 1 tablet (1,000 mg total) by mouth in the morning. Activeaspirin 81 mg chewable tablet (20 sources)Platelet Aggregation Inhibitor, Nonsteroidal Anti-inflammatory Drug Start: 77-30-2022oztc 1 tablet by mouth once dailyStart: 81-49-5850hlhr 1 tablet by mouth once dailyaspirin 81 mg Oral EC Tab 81 mg = 1 tab(s), Oral, Daily, Refills(s) 0 Start Date: 12/17/19 Status: OrderedBaby Aspirin Activebisacodyl 10 mg rectal suppository (1 source)Stimulant LaxativeStart: 74-52-8993iptx 10 mg by mouth once daily as needed for kknbnzljixql86 mg, rectal, Daily PRN, constipation, Constipation if polyethylene glycol is ineffective or patient is unable to take oral medications, Starting on Mon05/21/24 at 1333, Look-alike/sound-alike medication - verify indication for use.Calcium Gluconate (1 source)Start: 22-78-2699evvobty gluconate IVPB 1000 mg/50 mL (20 mg/mL premix)cefTRIAXone (ROCEPHIN) 2,000 mg in sodium chloride 0.9 % 50 mL IVPB-MBP (1 source)Start: 15-18-7972acpc 2000 mg intravenously every twenty-four hours 2,000 mg, intravenous, at 100 mL/hr, Administer over 30 Minutes, Every 24 hours, First dose on Mon05/22/24 at 1100, ADD-VANTAGE/MBP- Discard 8 hours after activating; dissolve drug prior to administration Look-alike/sound-alike medication - verify indication for use. Do not co-administer with calcium- containing solutions such as Lactated Ringers., Indication: Bacteremia cefTRIAXone 2,000 mg in sodium chloride 0.9 % 50 mL IVPB MINI-BAG Plus (4 sources)Start: 05-24-2024 End: 62-61-6978utqa 2000 mg intravenously every twenty-four hourscefTRIAXone 2,000 mg in sodium chloride 0.9 % 50 mL IVPB MINI-BAG Plus Infuse 2,000 mg into a venous catheter daily for 11 days. WBC, platelet, creatinine, LFT weekly while on antibiotic, faxed to [place] [phone] . IV flushes as per protocol 1 each 05/24/2024 06/04/2024 ActiveStart: 05-24-2024 End: 88-83-8081kamc 2000 mg intravenously every twenty-four hourscefTRIAXone 2,000 mg in sodium chloride 0.9 % 50 mL IVPB MINI-BAG Plus Infuse 2,000 mg into a venous catheter daily for 11 days. WBC, platelet, creatinine, LFT weekly while on antibiotic, faxed to [place] [phone] . IV flushes as per protocol 1 each 05/24/2024 06/04/2024Start: 05-24-2024 End: 60-39-3985jwuc 2000 mg intravenously every twenty-four hourscefTRIAXone 2,000 mg in sodium chloride 0.9 % 50 mL IVPB MINI-BAG Plus Infuse 2,000 mg into a venous catheter daily for 11 days. WBC, platelet, creatinine, LFT weekly while on antibiotic, faxed to [place] [phone] . IV flushes as per protocol 1 each 05/24/2024 05/24/2024 DiscontinuedCentrum MultiGummies Women (2 sources)Start: 16-05-2037Rsnqsdl MultiGummies Women See Instructions, Refill(s) 0, one po daily Start Date: 12/17/19 Status: Orderedcholecalciferol 0.05 mg oral tablet (16 sources)Vitamin DStart: 98-57-6138pljb 2000 [IU] by mouth once daily2,000 Units, oral, Daily, First dose on Nathalia 05/23/24 at 2100take 1 tablet by mouth in the morningcholecalciferol, vitamin D3, 2,000 units tablet Take 1 tablet (2,000 Units total) by mouth in the morning. Activeciprofloxacin 500 mg oral tablet (1 source)Quinolone AntimicrobialStart: 06-29-2024 End: 95-93-1515ysif 1 tablet by mouth in the morning, then take 1 tablet by mouth at bedtimeciprofloxacin HCl (CIPRO) 500 mg tablet Take 1 tablet (500 mg total) by mouth in the morning and 1 tablet (500 mg total) before bedtime. Do all this for 5 days. 10 tablet 06/29/2024 07/04/2024 Activegabapentin 100 mg oral capsule (6 sources)Anti-epileptic AgentStart: 05-22-2024 End: 30-33-4273yorg 1 capsule by mouth three times dailyglucagon (rdna) 1 mg injection (1 source)Antihypoglycemic AgentStart: mg, intramuscular, As needed, low blood sugar, blood glucose less than 70 mg/dL and unconscious or NPO without IV access., Starting on Mon05/21/24 at 1325, If conscious and not NPO, immediately follow with meal tray or high protein (7Grams) snack if tray not available. If NPO, initiate IV 5% Dextrose/Water at 100 mL/hr and contact prescriber for additional orders. If blood glucose is not greater than 70 mg/dL after initial treatment, repeat treatment.50 ml glucose 500 mg/ml prefilled syringe (2 sources)Start: g, oral, As needed, low blood sugar, blood glucose less than 70 mg/dL, Starting on Mon05/21/24 at 1325, If patient conscious and taking PO. If blood glucose is not greater than 70 mg/dL after initial treatment, repeat treatment.Start: mL, intravenous, As needed, low blood sugar, blood glucose less than 70 mg/dL and unconscious orNPO with IV access, Starting on Mon05/21/24 at 1325, Push over 1-3 minutes STAT. If conscious and not NPO, immediately follow with meal tray or high protein (7 grams) snack if tray not available. IfNPO, initiate 5% dextrose in water at 100 mL/hr and contact prescriber for additional orders. If blood glucose is not greater than 70 mg/dL after initial treatment, repeat treatment. VESICANT (RED) Warning: HYPERTONIC solution.1 ml heparin sodium, porcine 5000 unt/ml injection (1 source)Unfractionated Heparin, Anti-coagulantStart: 47-88-4275bxvorp 5000 [IU] by subcutaneous injection every eight hours5,000 Units, subcutaneous, Every 8 hours scheduled, First dose on Mon05/22/24 at 0600, Look-alike/sound-alike medication - verify indication for use. Observe for bleeding.hyoscyamine sulfate 0.125 mg sublingual tablet (1 source)Start: 79-48-8286tgnt 1 tablet by mouth every four hours as needed hyoscyamine (LEVSIN) 0.125 mg SL tablet Take 1 tablet (125 mcg total) by mouth every 4 (four) hoursas needed for cramping. 30 tablet 08/08/2024 Active levoFLOXacin 500 mg oral tablet (1 source)Quinolone AntimicrobialStart: 08-08-2024 End: 17-11-3637zmoq 1 tablet by mouth in the morninglevoFLOXacin (LEVAQUIN) 500 mg tablet Take 1 tablet (500 mg total) by mouth in the morning for 5 days. 5 tablet 08/08/2024 08/13/2024 Activemagnesium sulfate IVPB 2000 mg/50 mL in iso- osmotic water (40 mg/mL premix) (1 source)Start: 51-59-0993obpgjnils sulfate IVPB 2000 mg/50 mL in iso-osmotic water (40 mg/mL premix)meloxicam 15 mg oral tablet (20 sources)Nonsteroidal Anti-inflammatory DrugStart: 49-02-0187bdar 15 mg by mouth once daily15 mg, oral, Daily, First dose on Mon05/23/24 at 2100Start: 10-27-2023 End: 70-91-4747Hhpxm: 32-49-9743Nlursidjg 15 mg tablet Active 0 .ROUTE .COMPLEX October 27, 2023 10:00am TAKE 1 TABLET DAILYStart: 66-29-6301Ybcibgpwp Active 0 .ROUTE .COMPLEX October 27, 2023 11:00am TAKE 1 TABLET DAILYStart: 12-17-2019 End: 54-57-5381iozm 1 tablet by mouth once dailyMeloxicam 15 mg tablet Discontinued 15 MG PO Daily October 14, 2023 12:00am October 27, 2023 11:00am FreeTextSig: TAKE 1 TABLET DAILY; Note: Source Status: Taking; Refills: 3; Qty: 90 Tablet; Provider: Sahara Young ( )yqdvnfqo-qgtd-HR-calcium &mins (THERAGRAN-M) 9 mg iron-400 mcg tablet (15 sources)fkwszxom-zhfy-VZ-calcium &mins (THERAGRAN-M) 9 mg iron-400 mcg tablet Take 1 tablet by mouth inthe morning. Wtadbjjjvxztti-vlbm-RW-calcium &mins (THERAGRAN-M) 9 mg iron-400 mcg tablet Take 1 tablet by mouth inthe morning.uvbqmlvu-siji-FM-calcium &mins (THERAGRAN-M) 9 mg iron-400 mcg tablet Take 1 tablet by mouth inthe morning. Ofkapnpkznqyxxofb-ohbv-NO-calcium &mins (THERAGRAN-M) 9 mg iron-400 mcg tablet 1 tablet (1 source)Start: 24-49-7086fwzs 1 tablet by mouth once daily1 tablet, oral, Daily, First dose on [facility] 05/23/24 at 0861Yjftmgye-Saw-Ri-Lycopen-Lutein (Complete Mv Adult 50 Plus) 0.4 mg-300 mcg- 250 mcg tablet (5 sources)Start: 15-07-0742gxar 1 tablet by mouth once dailyStart: 10-14-2023 take 1 tablet by mouth once zwuiiUwytnryo-Mee-Gr-Lycopen-Lutein (Complete Mv Adult 50 Plus) 0.4 mg-300 mcg- 250 mcg tablet Active 1 TAB PO Daily October 13, 2023 11:00pmStart: 19-55-9667mbyf 1 tablet by mouth once daily Fcyyqtvz-Dqq-Zw-Lycopen-Lutein (Complete Mv Adult 50 Plus) 0.4 mg-300 mcg- 250 mcg tablet Active 1 TAB PO Daily October 14, 2023 12:00amMultivitamin Adults 50+ - (4 sources)Multivitamin Adults 50+ - Orally Activeoxybutynin chloride 5 mg oral tablet (8 sources)Cholinergic Muscarinic AntagonistStart: 10-08-2024 End: 27-06-6290ohut 1 tablet by mouth once dailyoxyCODONE hydrochloride 5 mg oral tablet (1 source)Opioid AgonistStart: 38-39-9868izeq 1 tablet by mouth every four hours as needed for pain5 mg, oral, Every 4 hours PRN, severe pain - pain scale 7-10, Starting on Mon05/22/24 at 0827, Look-alike/sound-alike medication - verify indication for use. Immediate release.polyethylene glycol 3350 08746 mg powder for oral solution (1 source)Osmotic LaxativeStart: 73-21-886343 g, oral, Daily PRN, constipation, Starting on Mon05/21/24 at 1333, Look-alike/sound-alike medication - verify indication for use. Dissolve 1 packet (17 gm) in 8 ounces of water, juice, soda, coffee or tea.Potassium Chloride (1 source)Start: 07-35-6987liuwqfmhr chloride (K-TAB,KLOR-CON) CR tablet 20-50 mEqpotassium chloride IVPB 10 mEq/50 mL in water (0.2 mEq/mL premix) (1 source)Start: 07-29-7783gwyvmpnbu chloride IVPB 10 mEq/50 mL in water (0.2 mEq/mL premix)Sodium Chloride (4 sources)Start: 51-79-9595oogg 10 mL intravenously every twelve hourssodium chloride 0.9 % flush 10 mLStart: 05-21-2024 End: mL/hr, intra-arterial, Continuous, Starting on Mon05/21/24 at 1415, For 90 daysStart: 05-21-2024 End: 72-32-8236ftuw 10 mL intravenously every hour as mL/hr, intravenous, Continuous PRN, to maintain patency of lines, Starting on Mon05/21/24 at 1325, For 1 day, Line #3sodium phosphate 20 mmol in sodium chloride 0.9 % 250 mL IVPB (1 source)Start: 36-95-9100cpqhop phosphate 20 mmol in sodium chloride 0.9 % 250 mL IVPBSUMAtriptan 25 mg oral tablet (19 sources)Serotonin-1b and Serotonin-1d Receptor AgonistStart: 09-24-2024 Start: 26-73-2862ryvc 1 tablet by mouth once as neededSUMAtriptan (IMITREX) 25 mg tablet Take 1 tablet (25 mg total) by mouth once as needed for migraine. 05/16/2024 ActiveStart: 05-16-2024 End: 59-92-4322tbqy 1 tablet by mouth every two hoursSumatriptan Succinate 25 mg tablet Discontinued 0 PO .COMPLEX May 16, 2024 12:00am September 24, 2024 1:33pm take 1 tab at onset of headache; if no relief may repeat 1 tab after at least 2 hrs; max = 4 tabs/24 hr POtamsulosin hydrochloride 0.4 mg oral capsule (8 sources)alpha-Adrenergic BlockerStart: 53-81-1622kfba 1 capsule by mouth once dailyterbinafine 250 mg oral tablet (4 sources)Allylamine AntifungalStart: 66-43-9130vpfo 1 tablet by mouth every twenty-four hoursTerbinafine HCl 250 MG 1 tablet Orally Once a day for 10 day(s) Jan, Activetrospium chloride 20 mg oral tablet (8 sources)Cholinergic Muscarinic AntagonistStart: 10-08-2024 End: 10-98-8971notn 1 tablet by mouth twice dailyvalACYclovir 500 mg oral tablet (6 sources)Herpesvirus Nucleoside Analog DNA Polymerase Inhibitor, Herpes Simplex Virus Nucleoside Analog DNA Polymerase Inhibitor, Herpes Zoster Virus Nucleoside Analog DNA Polymerase InhibitorStart: 05-25-2024 End: 26-19-8687ewcq 1 tablet by mouth twice dailyzinc gluconate 50 mg oral tablet (10 sources)take 1 tablet by mouth in the morningzinc gluconate 50 mg tablet Take 1 tablet (50 mg total) by mouth in the morning. Active Completed/Discontinued Medications MedicationDrug Class(es)DatesSig (Normalized)Sig (Original)500 ml albumin human, senior living 50 mg/ml injection (1 source)Human Serum AlbuminStart: 05-21-2024 End: g, intravenous, Once, On Mon05/21/24 at 2200, For 1 dose, Do not exceed 2 to 4 mL/minute in patients with normal plasma volume; 5 to 10 mL/minute in patients with hypoproteinemia For BUMINATE, administer using a 15 micron or smaller filter. A filter is NOT required for administration by other brands., Indication: Hepatorenal Syndrome With Volume Depletionazithromycin 250 mg oral tablet (4 sources)Macrolide AntimicrobialStart: 10-25-2023 End: 07-30-9363Smzfehqlyltb 250 mg tablet Discontinued 250 MG PO daily 6 October 25, 2023 12:00am May 16, 2024 10:40am Take 2 tablets today and then 1 tablet for the next 4 daysbenzonatate 200 mg oral capsule (4 sources)Non-narcotic AntitussiveStart: 10-25-2023 End: 95-78-8752rvma 1 capsule by mouth three times daily as needed for cough Benzonatate 200 mg capsule Discontinued 200 MG PO Three times daily as needed for cough 2023 12:00am May 16, 2024 10:41amcaffeine 100 mg / ergotamine tartrate 1 mg oral tablet (11 sources)Central Nervous System Stimulant, Ergotamine Derivative, MethylxanthineStart: 10-14-2023 End: 15-77-9531hqbq 1 tablet by mouth once as neededErgotamine-Caffeine 1-100 mg tablet Discontinued 1 TAB PO Once as needed October 14, 2023 12:00am May 16, 2024 12:33pm FreeTextSig: Orally; Note: Source Status: Taking; Provider: Sahara Young ( )Start: 92-78-6855sirg 1 tablet by mouth every eight hours for headacheCafergot oral tablet 1 tab(s), Oral, q8hr for headache Start Date: 12/13/19 Status: OrderedCafergot 1-100 MG Orally Activecalcium chloride 0.0014 meq/ml / potassium chloride 0.004 meq/ml / sodium chloride 0.103 meq/ml / sodium lactate 0.028 meq/ml injectable solution (2 sources)Start: 05-21-2024 End: ,000 mL, intravenous, at 1,935.5 mL/hr, Administer over 31 Minutes, Once, On Mon05/21/24 at 2030,For 1 doseStart: 05-21-2024 End: 61-75-9796qljy 100 mL intravenously every gqdd685 mL/hr, intravenous, Continuous, Starting on Mon05/21/24 at 1345, For 1 daydiclofenac sodium 20 mg/ml topical solution (4 sources)Nonsteroidal Anti-inflammatory DrugStart: 22-69-4155Ltiezuux 2 % 2 applications to affected area Transdermal Twice a day for 30 day(s) Aug, Not-Takingfamotidine 20 mg oral tablet (2 sources)Histamine-2 Receptor AntagonistStart: 05-22-2024 End: 78-56-1110cjbm 20 mg by mouth once daily20 mg, oral, Daily, First dose (after last modification) on Mon05/22/24 at 1630, Indication: Stress Ulcer ProphylaxisStart: 05-21-2024 End: 07-78-946059 mg, intravenous, Every 24 hours scheduled, First dose (after last modification) on Mon05/21/24 at 1600, Pharmacy to adjust dose based on renal function. Dilute to total volume of 5 mL with 0.9% sod chl and administer IVP over 2 minutes., Indication: Stress Ulcer Prophylaxis1 ml fentaNYL 0.05 mg/ml injection (3 sources)Opioid AgonistStart: 05-21-2024 End: 95-41-877440 mcg, intravenous, Once, On Mon05/21/24 at 2200, For 1 dose, Look-alike/sound-alike medication -verify indication for use.Start: 05-21-2024 End: 48-26-3273jasf 50 ug intravenously every three hours as zfaqya99 mcg, intravenous, Every 3 hours PRN, breakthrough pain, Starting on Mon05/22/24 at 0047, Look-alike/sound-alike medication - verify indication for use.24 hr fesoterodine fumarate 8 mg extended release oral tablet (20 sources)Start: 36-97-5695hmha 1 tablet by mouth once dailyFesoterodine 8 mg tablet extended release 24 hr Active 0 .ROUTE .COMPLEX 90 June 05, 2024 10:23am TAKE 1 TABLET BY MOUTH EVERY DAYStart: 85-34-1796ngvk 1 tablet by mouth every twenty-four hours in the morningfesoterodine (TOVIAZ) 8 mg tablet extended release 24 hr Indications: urinary urgency Take 1 tablet(8 mg total) by mouth in the morning. Indications: urinary urgency, or the sudden urge to urinate. 0 02/13/2024 ActiveStart: 02-13-2024 End: 32-92-2325hnie 1 tablet by mouth once dailyFesoterodine 8 mg tablet extended release 24 hr Discontinued 0 .ROUTE .COMPLEX February 13, 2024 9:42am June 05, 2024 10:23am TAKE 1 TABLET BY MOUTH EVERY DAYStart: 02-13-2024 take 1 tablet by mouth once dailyFesoterodine Active 0 .ROUTE .COMPLEX February 13, 2024 10:42am TAKE 1 TABLET BY MOUTH EVERY DAYStart: 12-26-2023 End: 93-95-8336gszs 1 tablet by mouth once dailyFesoterodine 8 mg tablet extended release 24 hr Discontinued 0 .ROUTE .COMPLEX June 05, 2024 11:23am October 08, 2024 11:40am TAKE 1 TABLET BY MOUTH EVERY DAYStart: 12-26-2023 End: 99-86-1729khxz 1 tablet by mouth once dailyFesoterodine 8 mg tablet extended release 24 hr Discontinued 0 .ROUTE .COMPLEX December 26, 2023 2:40pm February 13, 2024 9:42am TAKE 1 TABLET BY MOUTH EVERY DAYStart: 12-26-2023 End: 58-30-3170zthg 1 tablet by mouth once dailyFesoterodine Discontinued 0 .ROUTE .COMPLEX December 26, 2023 3:40pm February 13, 2024 10:42am TAKE 1TABLET BY MOUTH EVERY DAYStart: 12-13-2019 End: 47-45-8640ffjy 1 tablet by mouth once dailyFesoterodine (Toviaz) 8 mg tablet extended release 24 hr Discontinued 8 MG PO Daily October 14, 2023 12:00am November 27, 2023 8:37amToviaz 8mg ActivehydroCHLOROthiazide 25 mg oral tablet (20 sources)Thiazide DiureticStart: 12-13-2019 End: 73-80-6499voxu 1 tablet by mouth once dailyHydrochlorothiazide 25 mg tablet Discontinued 25 MG PO Daily October 14, 2023 12:00am August 5:18pm FreeTextSig: TAKE 1 TABLET DAILY; Note: Source Status: Start; Refills: 3; Qty: 90 Tablet; Provider: Sahara Young ( )hydrocortisone 100 mg injection (1 source)CorticosteroidStart: 05-21-2024 End: 58-83-4001fxmi 50 mg intravenously every six hours50 mg, intravenous, Every 6 hours, First dose on Mon05/21/24 at 2030, Administer over 30 seconds. May alter blood glucose or insulin requirements. Look-alike/sound-alike medication - verify indication for use.iohexoL (OMNIPAQUE) 300 mg iodine/mL (1 source)Start: 05-21-2024 End: 56-59-1420Wb needed, Starting on Mon05/21/24 at 1623, Intra-op10 ml lidocaine hydrochloride 10 mg/ml injection (1 source)Antiarrhythmic, Amide Local AnestheticStart: 05-21-2024 End: 95-09-4120ppedbhemsweh, Code/trauma/sedation medication, Starting on Mon05/21/24 at 1614, Intra-op2 ml midazolam 1 mg/ml cartridge (1 source)BenzodiazepineStart: 05-21-2024 End: 91-69-5552czrpddlbzit, Code/trauma/sedation medication, Starting on Mon05/21/24 at 1610, Intra-op24 hr mirabegron 50 mg extended release oral tablet (20 sources)beta3-Adrenergic AgonistStart: 12-13-2019 End: 60-71-0640yujz 1 tablet by mouth once dailyMirabegron 50 mg tablet extended release 24 hr Discontinued 50 MG PO Daily October 14, 2023 12:00amApr2023 11:00am FreeTextSig: TAKE 1 TABLET DAILY; Note: Source Status: Taking; Refills: 3; Qty: 90 Tablet; Provider: Sahara Young ( )take 1 tablet by mouth every twenty-four hours in the morningmirabegron (MYRBETRIQ) 50 mg tablet extended release 24 hr Indications: urinary urgency Take 1 tablet (50 mg total) by mouth in the morning. Indications: urinary urgency, or the sudden urge to urinate. Activenitrofurantoin, macrocrystals 100 mg oral capsule (8 sources)Nitrofuran AntibacterialStart: 05-17-2024 End: 73-07-6566plft 1 capsule by mouth twice daily at mealtimeNitrofurantoin Macrocrystal 100 mg capsule Discontinued 100 MG PO Twice daily May 172:00am May 30, 2024 3:53pm must administer with a meal/food norepinephrine (LEVOPHED) infusion 8 mg/250 mL in sod chlor 0.9% (0.032 mg/mL PMX) (1 source)Start: 05-21-2024 End: .01-0.2 mcg/kg/min 147 kg (2.7563-55.125 mL/hr, rounded to 2.8- 55.1 mL/hr), intravenous, Continuous, Starting on Mon05/21/24 at 1330, Preferred central line administration. Start at 0.04 mcg/kg/min. Titrate by 0.02 mcg/kg/min every 5 min to achieve MAP > 65. VESICANT (RED) Requires Smart Pump., Indication: Hypotension, Sequence of Pressors - Use this medication: First, Wean Sequence: Wean Secondnorepinephrine in NS (PMX) (LEVOPHED) 8 mg/250 mL (32 mcg/mL) infusion - Pyxis Override Pull (1 source)Start: 05-21-2024 End: 10-48-8870Erjdhhtz on Mon05/21/24 at 1257, For 1 dose, Jovany Wynne: cabinet override VESICANT (RED) Requires Smart Pump.piperacillin-tazobactam (ZOSYN) 4.5 g in sodium chloride 0.9 % 50 mL IVPB-MBP (1 source)Start: 05-21-2024 End: .5 g, intravenous, at 100 mL/hr, Administer over 0.5 Hours, Once, On Mon05/21/24 at 1345, For 1 dose, ADD-VANTAGE/MBP- Discard 24 hours after activating; dissolve drug prior to administration, Indication: Sepsis predniSONE 20 mg oral tablet (5 sources)Start: 10-14-2023 End: 98-28-2635pzdi 1 tablet by mouth twice dailyPrednisone 20 mg tablet Discontinued 20 MG PO Twice daily 04 27October 14, 2023 12:00am October 25, 2023 9:34amSUPARTZ FX SODIUM HYALURONATE (20 sources)Start: 44-63-3593JBUWVEJ FX SODIUM HYALURONATE Dec,art: 54-95-6007QKSPTLR FX SODIUM HYALURONATE November, 25 mgStart: 12-12-2016 SUPARTZ FX SODIUM HYALURONATE November, 25Start: 69-10-3159KJCYBVF FX SODIUM HYALURONATE November, 25 mgStart: 88-09-8996GAFMIPF FX SODIUM HYALURONATE November, 25 mgTriamcinolone (20 sources)CorticosteroidStart: 26-02-2583Btegxec -40 mg Sep, 40 mg Start: 44-65-4693Uydjswc -40 mg Mar,Start: 55-71-0324Hszqjsh -40 mg Sep, 40 mgvasopressin (PITRESSIN) 40 Units in sodium chloride 0.9 % 40 mL (1 Units/mL) infusion (1 source)Start: 05-21-2024 End: .04 Units/min (2.4 mL/hr), intravenous, Continuous, Starting on Mon05/21/24 at 1730, *For SEPSIS use* VESICANT (RED) Problems Active Problems Problem ClassificationProblemDateDocumented DateEpisodic/ChronicAbdominal hernia (5 sources)Irreducible incisional hernia; Translations: [Hernia of anterior abdominal wall without obstructionAND without gangrene]20-96-9997Javmmkrj Calculus of urinary tract (20 sources)Kidney stone; Translations: [Calculus of kidney]Onset: 01-16-2024 52-71-9708WheqniniPtmodgn obstructive pulmonary disease and bronchiectasis (5 sources)Bronchitis; Translations: [Bronchitis, not specified as acute or chronic]54-00-2744BmczqnfvNmwsglclrm associated with dizziness or vertigo (1 source)Postural dizziness; Translations: [Dizziness and giddiness]08-19-2024 EpisodicEssential hypertension (4 sources)Hypertensive disorder; Translations: [Essential (primary) hypertension]60-79-1519VrsvjwyWzskq and electrolyte disorders (2 sources)Hypokalemia; Translations: [Hypokalemia]Onset: EpisodicGenitourinary symptoms and ill-defined conditions (10 sources)Incontinence; Translations: [Incontinence without sensory awareness] Onset: 178954-72-9250XwircyoZcykkmxvwuadx symptoms and ill-defined conditions (9 sources)Microscopic hematuria; Translations: [Nocturia]Onset: 06-07-2016 69-41-4205BhmudbzyEwfabprr; including migraine (11 sources)Migraine; Translations: [Episodic tension-type headache]12-12-2019 ChronicHeart valve disorders (5 sources)Heart murmur; Translations: [O/E - cardiac murmur]Onset: 08-23-2018 46-01-4848WdroolupZhukuzztp (1 source)Influenza due to other identified influenza virus with other respiratory manifestations; Translations: [Influenza with other respiratory manifestations]96-78-6774DtxkdpqiVewnqocon disorders (3 sources)Disorder of menstruation; Translations: [Unspecified disorder of menstruation and other abnormal bleeding from female genital tract]Onset: 19-32-3055MbhyaiiLryxzxdfklalmu (20 sources)Osteoarthritis of knee; Translations: [Unilateral primary osteoarthritis, right knee]ChronicOther circulatory disease (5 sources)Elevated blood-pressure reading without diagnosis of hypertension; Translations: [Elevated blood-pressure reading, without diagnosis of hypertension]Onset: 715674-86-6019BmlzegmdRawne connective tissue disease (4 sources)Pain in left lower limb; Translations: [Pain in left leg]Episodic Other connective tissue disease (4 sources)Thigh pain; Translations: [Pain in unspecified thigh]EpisodicOther diseases of bladder and urethra (5 sources)Overactive bladder; Translations: [Overactive bladder]05-22-2024 ChronicOther diseases of kidney and ureters (1 source)Kidney disease; Translations: [Other specified disorders of kidney and ureter]89-52-9277EalvqkpHcuum diseases of kidney and ureters (2 sources)Other specified disorders of kidney and ureter; Translations: [Other specified disorders of kidney and ureter]Onset: 38-13-0448YsgqroiCzixk diseases of kidney and ureters (1 source)Kidney iqpxfaz45-75-9621RjpxsgaqMwhpt nervous system disorders (4 sources)Meralgia paresthetica of left leg; Translations: [Meralgia paresthetica, left lower limb]ChronicOther nervous system disorders (4 sources)Chronic pain; Translations: [Other chronic pain]ChronicOther non- traumatic joint disorders (8 sources)Knee pain; Translations: [Pain in right knee]EpisodicOther nutritional; endocrine; and metabolic disorders (10 sources)Body mass index 40+ - severely obese; Translations: [Body mass index (BMI) 50.0-59.9, adult]Onset: 71-38-2481VngdaurHnrcb nutritional; endocrine; and metabolic disorders (5 sources)Disorder of mineral metabolism; 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, unspecified]Onset: 393487-33-3229LgulotnXukai nutritional; endocrine; and metabolic disorders (1 source)Disorder of mineral metabolism, unspecified; 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, unspecified]Onset: 32-93-5993TxrpeelPzvdc screening for suspected conditions (not mental disorders or infectious disease) (8 sources)Patient encounter status; Translations: [Encounter for screening mammogram for malignant neoplasm of breast]Onset: 040673-70-8138Vgpfaioo Other upper respiratory infections (6 sources)Acute maxillary sinusitis; Translations: [Acute maxillary sinusitis, unspecified]Onset: 93-00-3234VjbnnfrzNjasfbrwji (except in labor) (20 sources)Septic shock; Translations: [Sepsis, unspecified organism]Onset: 292400-53-0099PgyfmxpqIgarltpxiiu; intervertebral disc disorders; other back problems (4 sources)Spondylosis; Translations: [Other spondylosis, lumbar region]Chronic Substance-related disorders (3 sources)Tobacco user; Translations: [Nicotine dependence, cigarettes, in remission]ChronicUnclassified (2 sources)Asymptomatic microscopic zuunsysqj78-45-0500Bvvsyud tract infections (6 sources)Urinary tract infectious disease; Translations: [Urinary tract infection, site not specified]57-70-3922Gwcapdxq Past or Other Problems Problem ClassificationProblemDateDocumented DateEpisodic/ChronicAbdominal pain (3 sources)Flank pain; Translations: [Unspecified abdominal pain]Onset: 177057-18-7850RfzuoyrpNpsczxtda infection; unspecified site (5 sources)Bacteremia caused by Gram-negative bacteria; Translations: [Bacteremia]Onset: 902088-79-8437SbozowpcTzoh disorders (14 sources)Mood disordersOnset: 05-21-2024 Resolved: 72-30-945434474453-39-5359Rrzlw aftercare (3 sources)Surgical follow-up; Translations: [Follow-up examination, following unspecified surgery]Onset: 48-60-7655StoxgeyeMpiza female genital disorders (3 sources)Hypertrophy of uterus; Translations: [Hypertrophy of uterus]Onset: 72-21-5380KkirrgeeDtkbg non-traumatic joint disorders (3 sources)Arthralgia of the pelvic region and thigh; Translations: [Pain in joint, pelvic region and thigh]Onset: 73-47-3374DvecvmrsTuvzflfc codes; unclassified (1 source)Pain, unspecified; Translations: [Pain, unspecified]Onset: 05-21-2024 EpisodicShock (2 sources)Severe sepsis with septic shock; Translations: [Severe sepsis with septic shock]Onset: 68-97-7390PphjivxxIkxvicafudg; intervertebral disc disorders; other back problems (3 sources)Low back pain; Translations: [Low back pain, unspecified]Onset: 19-24-7193Kbznsztc Results Test NameValueInterpretationReference RangeFacilityUS community outreach ABIon 49-62-8493QD [facility] outreach [facility] [place] [address] Ultrasound Report Signed Patient: Sharri Murillo MR#: [id number] : 1955 Acct:[id number] Age/Sex: 69 / F ADM Date: 04/08/25 Loc: Room: Type: [facility] Attending Dr: Bharathi Community Ordering Provider: BHARATHI AVILES Date of Service: 04/08/25 /[facility] KATY: SCREENING Copies to: [facility], [facility] LOWER EXTREMITY SEGMENTAL ARTERIAL DOPSCAN (PVR) INDICATION: [facility] PAD screening program. PROCEDURE: Right arm blood pressure is 183 , left is 178 . Pressures at the right ankle are 185 using the dorsalis pedis artery with ankle-brachial index of 1.01 . Pressures at the left ankle are 184 with ankle-brachial index of 1.01 . Wave forms by plethysmography are normal. /[facility] KATY IMPRESSION: NO HEMODYNAMICALLY SIGNIFICANT PERIPHERAL VASCULAR OCCLUSIVE DISEASE AT REST IN EITHER LOWER EXTREMITY. Impression dictated by: Jovany Heart MD,FACS,FSVS 04/08/2025 2:09 PM Dictation Location: [place] [address] Tech: Shira Vilchis Transcribed By: KAMILAH 04/08/25 1409 Dictated By: Jovany Heart MD 04/08/25 1408 Signed By: 04/08/25 1409[facility] Physician GroupUS community outreach aortaon 48-76-0094OH community outreach [facility]ST[facility] Main [place] [id number] Ultrasound Report Signed Patient: Sharri Murillo MR#: [id number] : 1955 Acct:[id number] Age/Sex: 69 / F ADM Date: 04/08/25 Loc: RH Room: Type: REG REF Attending Dr: Bharathi Community Ordering Provider: COMMUNITY,OUTREACH Date of Service: 04/08/25 US/US community outreach aorta: SCREENING Copies to: [facility] Aorta screening ultrasound HISTORY: Screening exam Normal caliber abdominal aorta. US/US [facility] outreach aorta IMPRESSION: No abdominal aortic aneurysm. Impression dictated by: Milton Yap M.D. 04/08/2025 3:29 PM Dictation Location: [place] [address] Tech: Lamar Kathleen Transcribed By: [facility] 04/08/25 1529 Dictated By: Milton Yap DO 04/08/25 1529 Signed By: 04/08/25 1529[facility]ician [facility] CenterUS community outreach carotidon 54-19-0332RI community outreach carotidK[place] [id number] Ultrasound Report Signed Patient: Sharri Murillo MR#: [id number] : 1955 Acct:[id number] Age/Sex: 69 / F ADM Date: 04/08/25 Loc: RH Room: Type: REG REF Attending : Bharathi Aviles Ordering Provider: COMMUNITY,OUTREACH Date of Service: 04/08/25 US/US community outreach carotid: SCREENING Copies to: [facility],OUTREACH CAROTID DUPLEX INDICATION: Community outreach carotid screening program. PROCEDURE: Color-flow duplex scanning is used to interrogate the extracranial carotid arterial system, as well as both vertebral arteries. The proximal right internal carotid artery shows a highest peak systolic velocity of 84.5 cm/s with an end-diastolic velocity of 18.1 cm/s . The mid internal carotid artery measures 107 cm/s peak systolic with an end-diastolic velocity of 32.1 cm/s . The distal segment measures 62.4 cm/s peak systolic with an end diastolic velocity of 17.3 cm/s . The velocities of the right common carotid artery are 136 cm/s peak systolic and 22.7 cm/s end- diastolic proximally and 132 cm/s peak systolic and [...] the common carotid artery is 0.99 . /[facility] carotid IMPRESSION: NO HEMODYNAMICALLY SIGNIFICANT STENOSIS OF EITHER EXTRACRANIAL INTERNAL CAROTID ARTERY. Impression dictated by: Jovany Heart MD,FACS,FSVS 04/08/2025 2:08 PM Dictation Location: [facility]-04 Tech: Lamar Kathleen Transcribed By: PWS 04/08/25 1408 Dictated By: Jovany Heart MD 04/08/25 1408 Signed By: 04/08/25 1408[facility] Physician [facility] CenterCT UROGRAMon 58-39-5703VN UROGRAMCT UROGRAM History: Renal stone. Pelvic caliectasis. EXAM: CT urogram, multiplanar reformats, thick section MIP volumes, 3-D volume rendered imaging. All CT scans at this facility use dose modulation, iterative reconstruction, and/or weight based dosing when appropriate to reduce radiation dose to as low as reasonably achievable. COMPARISON: CT abdomen pelvis without contrast 08/22/2024 CT ABDOMEN: No acute collecting system calcifications. Stable small parenchymal calcification lower pole left kidney. Mild left hydronephrosis without obstruction. Cholecystectomy. Pneumobilia. No enhancing lesions in the liver, spleen, pancreas, adrenal glands are kidneys. Parapelvic 1 cm lower pole left renal cyst. No follow-up necessary. CT PELVIS: No dilated bowel loops or pericolonic fat stranding. Stable complex ventral hernia containing multiple loops of nondilated large bowel. Small fat-containing right inguinal hernia. No associated inflammation or obstruction. No osseous lesions. CT Urogram: Excreted contrast opacifies the calyces, ureters and bladder. No filling defects or strictures. Urinary bladder wall within normal limits. 3-D volume rendered imaging confirmed source images. IMPRESSION: Mild left hydronephrosis without urinary calculi or evidence for obstruction. Finalized by Car Elliott MD on 12/11/2024 8:22 AMNormalProHca Houston Healthcare NorthwestCREATININE, SERUMon 70-21-5699Nqrmfqahxz [Mass/Vol]0.59 mg/dLNormal 0.40-1.00The Surgical Hospital at SouthwoodsComment on above:Result Comment: METHOD TRACEABLE TO [facility] STANDARDPerformed By: #### INFORMATION TECHNOLOGY DATA ANALYST #### [facility] ([facility]) [address] [place] [address] VIREGFR (CKD-EPI) NON-RACE DEPENDENT>^90Normal>=60The Surgical Hospital at SouthwoodsComment on above:Result Comment: Reported eGFR is based on the CKD-EPI 2020 equation that does not use a race coefficient.Performed By: #### INFORMATION TECHNOLOGY DATA ANALYST #### [facility] ([facility]) [address] [place] [address] VIRCreatinine includes GFR, serumon 18-62-3607Yrhqpeodsv [Mass/Vol]0.59 mg/dL0.40 - 1.00 mg/dLMount Carmel Health SystemComment on above: METHOD TRACEABLE TO IDOK STANDARDEGFR Non-Race Dependent- [facility] PatrickComment on above:Reported eGFR is based on the CKD-EPI 2020 equation that does not use a race coefficient. Interpretation and review of laboratory resultsThedaCare Medical Center - Wild Rose SystemUS RETROPERITONEAL COMPLETEon 58-97-0889UY RETROPERITONEAL COMPLETEUS RETROPERITONEAL COMPLETE ULTRASOUND RETROPERITONEAL COMPLETE CLINICAL HISTORY: Kidney stone, hydronephrosis COMPARISON: CT abdomen pelvis 08/22/2024 Technique: Multiple real-time grayscale images in transverse and sagittal projections. Color Doppler was performed. FINDINGS: The right kidney measures 12.2 x 6.2 x 5.9 cm. Renal cortex measures 0.5 cm. No demonstrated mass, calculus, hydronephrosis. The left kidney measures 11.1 x 5.5 x 6.0 cm. Renal cortex measures 0.7 cm. Nonobstructing 5 mm inferior pole calculus. Dilated renal pelvis, 1.9 cm. Urinary bladder volume: 684 mL. Bilateral ureteral jets demonstrated. Post void residual: 37 mL. IMPRESSION: * Dilated left renal pelvis. * Nonobstructing 5 mm left inferior pole calculus. Approved by Resident Ruel Uribe DO on 11/13/2024 10:03 AM ILance MD have personally reviewed the image(s) and agree with and/or edited the report Finalized by Lance Calderon MD on 11/13/2024 11:04 [facility]CT [facility] AND PELVIS WO CONTon 32-63-1140ES ABDOMEN AND PELVIS WO CONT CT ABDOMEN AND PELVIS WO CONT CLINICAL INFORMATION: Abdominal pain radiating to the back, kidney stone suspected. TECHNIQUE: Abdominopelvic CT without contrast. All CT scans at this facility use dose modulation, iterative reconstruction, and/or weight based dosing when appropriate to reduce radiation dose to as low as reasonably achievable. COMPARISON: 05/21/2024. FINDINGS LOWER CHEST: Lung bases clear. Chronic elevation of the right hemidiaphragm. HEPATOBILIARY: Unenhanced liver unremarkable. Gallbladder surgically absent. No biliary dilation. PANCREAS: Unenhanced pancreas unremarkable. No pancreatic ductal dilation. SPLEEN: The unenhanced spleen is within normal limits. ADRENAL GLANDS: The unenhanced adrenal glands are within normal limits. KIDNEYS, URETERS, AND BLADDER: Unenhanced right kidney unremarkable. Ureteral stent appropriately positioned within the left kidney extending into the bladder. Nonobstructing 3 mm left lower pole renal calculus, previously 13 mm. No discrete calculus within the left ureter. Mildly dilated left renal collecting system, improved from prior. Urinary bladder is unremarkable. GI TRACT AND PERITONEUM: Small and large bowel are normal in caliber. Normal appendix. Loculated ventral abdominal hernia containing multiple loops of nondilated large bowel. VASCULATURE: Abdominal aorta is nonaneurysmal. Aortoiliac calcifications present. LYMPH NODES: Not enlarged. REPRODUCTIVE ORGANS: Uterus surgically absent. No abnormal pelvic mass. MSK: Degenerative changes cervical spine. Small fat-containing right femoral hernia, unchanged. IMPRESSION: * Left double-J ureteral stent appropriately positioned, no discrete ureteral calculus. Nonobstructing 3 mm left renal calculus, previously 13 mm. Mild left renal collecting system dilation. * Complex ventral abdominal hernia containing multiple loops of nondilated large bowel, similar to prior. Approved by Resident Ruel Uribe DO on 08/22/2024 11:21 AM I, Aleksandra Gamboa MD have personally reviewed the image(s) and agree with and/or edited the report Finalized by Aleksandra Gamboa MD on 08/22/2024 12:55 [facility]ormalUniversity [facility] STONE ANALYSISon 91-90-4988KATQAK COMMENTSee NoteNormalSCCI Hospital LimaComment on above:Result Comment: NOTE For stones containing calcium oxalate, calcium phosphate, and/or uric acid, a 24 hr urinary supersaturation test may help detect underlying risk factors for this type of stone formation and provide guidance for a stone prevention strategy. ADDITIONAL INFORMATION This test was developed and its performance characteristics determined by [facility] in a manner consistent with CLIA requirements. This test has not been cleared or approved by the U.S. Food and Drug Administration. Test Performed by: [facility] [address] [place] [address] Marketing Support Manager: John Pickett Ph.D.; CLIA# [id number]:LEFT KIDNEY STONE NormalProSamaritan HospitalComment on above:Result Comment: Corrected on 08/13 AT 1509: Previously reported as LEFT KIDNEY STONEStone Kcolxdmwnlxekp950% Calcium oxalate monohydrate.NormalProAkron Children'S Hospital HospitalBacteria identified Cx Nom (U)on 61-20-7842Akwfkjl comment (Unsp spec) [Interp]<10,000 ORGANISMS/ML NORMAL URO GENITAL FLORAProOur Lady Of Mercy Hospitalca [facility] SystemProUc HealthBASIC METABOLIC PANLon 55-71-2041Edmsg gap [Moles/Vol]7 mmol/LNormal5-15ProAkron Children'S Hospital HospitalComment on above:Performed By: #### PINR, 73227-3, CMP, 08611-1, 2777-1, CBCA, 46957-9 #### [facility] ([id number]) [address], [address] [place], [place] [address]Dzuwkwa [Mass/Vol]9.0 mg/dLNormal8.5-10.5ProMedica Fostoria City HospitalComment on above:Performed By: #### PINR, 74344-0, CMP, 08214-0, 2777-1, CBCA, 84574-6 #### [facility] ([id number]) [address], [address] [place], [place] [address]Kiluzqmq [Moles/Vol]101 mmol/LEtezvh09-396EuuUnpptz [place] HospitalComment on above:Performed By: #### PINR, 75555-5, CMP, 58445-3, 2777-1, CBCA, 99182-4 #### [facility] ([id number]) [address], [address] [place], [place] [address]FB9 [Moles/Vol]30 mmol/YEafhig81-78DfkVpigiy [facility] Comment on above:Performed By: #### PINR, 49364-6, CMP, 69313-4, 2777-1, CBCA, 96043-0 #### [facility] ([id number]) [address], [address] [place], [place] [address]Bhmkicxphe [Mass/Vol]0.68 mg/dLNormal0.40-1.00ProSamaritan HospitalComment on above:Result Comment: METHOD TRACEABLE TO IDMS STANDARD Performed By: #### PINR, 53840-4, CMP, 93571-4, 2777-1, CBCA, 87253-3 #### [facility] ([id number]) [address], [address] [place], [place] [address]dVXJ (CKD-EPI) NON-RACE DEPENDENT>90Normal>59ProAkron Children'S Hospital HospitalComment on above:Result Comment: Reported eGFR is based on the CKD-EPI 2020 equation that does not use a race coefficient.Performed By: #### PINAbby, 11573-8, CMP, 59600-0, 2777- 1, CBCA, 51434-6 #### [facility] ([id number]) [address], [address] [place], [place] [address]Tushmnl [Mass/Vol]96 mg/qMHhlzzn28-26LhuRyrqdb [facility] Comment on above:Performed By: #### PINAbby, 44475-0, CMP, 73412-0, 2777-1, CBCA, 92624-7 #### [facility] ([id number]) [address], [address] [place], [place] [address]Rjybyakya [Moles/Vol]3.6 mmol/LNormal3.5-5.0ProAkron Children'S Hospital HospitalComment on above:Performed By: #### PINR, 23142-4, CMP, 78657-5, 2777-1, CBCA, 62715-0 #### [facility] ([id number]) [address], [address] [place], [place] [address]Vfhrqi [Moles/Vol]138 mmol/IEfbzgc539-410YbiLqoguo [place] HospitalComment on above:Performed By: #### PINR, 24188-1, CMP, 55589-6, 2777-1, CBCA, 39378-3 #### [facility] ([id number]) [address] [facility], [address] [place], [place] [address]Jihi nitrogen [Mass/Vol]16 mg/dLNormal5-27SCCI Hospital LimaComment on above:Performed By: #### PINR, 81193-8, CMP, 07611-6, 2777-1, CBCA, 03878-4 #### [facility] ([id number]) [address] [facility], [address] [place], [place] [address]Lzjvx Metabolic Panelon 02-01-6214Vdjtr gap [Moles/Vol]7 mmol/L5 - 15 mmol/LProMedica Health SystemCalcium [Mass/Vol]9 mg/dL8.5 - 10.5 mg/dL [facility] SystemChloride [Moles/Vol]101 mmol/L98 - 109 mmol/LProMedica Health SystemCO2 [Moles/Vol]30 mmol/L22 - 32 mmol/LProMedica Health System Creatinine [Mass/Vol]0.68 mg/dL0.40 - 1.00 mg/dLMount Carmel Health SystemComment on above:METHOD TRACEABLE TO IDMS STANDARDeGFR (CKD-EPI)non-race dependent- PINF [facility] Carmel Health SystemComment on above: Reported eGFR is based on the CKD-EPI 2020 equation that does not use a race coefficient. Glucose [Mass/Vol]96 mg/dL65 - 99 mg/dLKettering Health Hamilton SystemPotassium [Moles/Vol]3.6 mmol/L3.5 - 5.0 mmol/LProMedica Health SystemSodium [Moles/Vol] 138 mmol/L134 - 146 mmol/LProMedica Health SystemUrea nitrogen [Mass/Vol]16 mg/dL5 - 27 mg/dLLehigh Valley Health NetworkURINALYSISon 67-95-7211Waemnmvwy Ql (U)NegativeNormalNEGSCCI Hospital LimaComment on above:Performed By: #### PINR, 88433-8, CMP, 89263-4, 2777-1, CBCA, 21002-7 #### [facility] ([id number]) [address] [facility] [address] [address], [address] [place], [place] [address]WNATI/HGBLargeAbnormalNEGProMedica Ash[place] HospitalComment on above:Performed By: #### PINR, 78874-3, CMP, 05897-4, 2777-1, CBCA, 41415-3 #### [facility] ([id number]) [address], [address] [place], [place] [address]Fkfas (U)YELLOWNormalYELLOWProMedica Ashraf HospitalComment on above:Performed By: #### PINR, 77852-4, CMP, 42039-3, 2777-1, CBCA, 59971-8 #### [facility] ([id number]) [address], [address] [place], [place] [address]Hxsmieu Ql (U)NegativeNormalNEGProMedica Ashraf HospitalComment on above:Performed By: #### PINR, 65465-9, CMP, 25010-4, 2777-1, CBCA, 42691-9 #### [facility] ([id number]) [address], [address] [place], [place] [address]Yhycahy Ql (U)NegativeNormalNEGProMedica Ashraf HospitalComment on above:Performed By: #### PINR, 20067-8, CMP, 79632-3, 2777-1, CBCA, 35706-4 #### [facility] ([id number]) [address], [address] [place], [place] [address]Udbhjminu esterase Test strip Ql (U)SmallAbnormalNEGProMedica Ashraf HospitalComment on above:Performed By: #### PINR, 81426-2, CMP, 74164-7, 2777-1, CBCA, 35991-3 #### [facility] ([id number]) [address], [address] [place], [place] [address]HPQVBZAHHEPFBNcqjpihxKGUJJqjWhorpb [place] HospitalComment on above:Performed By: #### PINR, 60587-0, CMP, 40710-3, 2777-1, CBCA, 74486-8 #### [facility] ([id number]) [address], [address] [place], [place] [address]Pukrnse Ql (U)NegativeNormalNEGProSamaritan HospitalComment on above:Performed By: #### PINR, 97863-3, CMP, 64983-9, 2777-1, CBCA, 63785-3 #### [facility] ([id number]) [address], [address] [place], [place] [address]pP (U)6.0 [pH]Normal5.0-8.5PTriHealth McCullough-Hyde Memorial HospitalComment on above:Performed By: #### PINR, 20563-8, CMP, 24078-1, 2777-1, CBCA, 64405-2 #### [facility] ([id number]) [address], [address] [place], [place] [address]Mygpwyh Ql (U)50 mg/dLAbnormalNEGProAkron Children'S Hospital [facility] Comment on above:Performed By: #### PINR, 16882-5, CMP, 67294-2, 2777-1, CBCA, 92246-8 #### [facility] ([id number]) [address], [address] [place], [place] [address]R.B.QOMEB505 /hpfHigh0-5PTriHealth McCullough-Hyde Memorial HospitalComment on above:Performed By: #### PINR, 75474-7, CMP, 35269-9, 2777-1, CBCA, 73507-7 #### [facility] ([id number]) [address], [address] [place], [place] [address]Sayggmcn gravity (U) [Rel density]1.622Rsebjl8.003-1.035 [facility] City HospitalComment on above:Performed By: #### PINR, 62060-6, CMP, 50049-9, 2777-1, CBCA, 48336-2 #### [facility] ([id number]) [address], [address] [place], [place] [address]PRWDIXWC EPITHELIUM1 /hpfNormal0-5PTriHealth McCullough-Hyde Memorial Hospital Comment on above:Performed By: #### PINR, 50649-2, CMP, 38533-5, 2777-1, CBCA, 11886-3 #### [facility] ([id number]) [address], [address] [place], [place] [address]CPWPFMELAKPZCJmrtdlamOBWVHMjlWembse Toledo HospitalComment on above:Performed By: #### PINR, 59668-7, CMP, 42516-9, 2777-1, CBCA, 59486-4 #### [facility] ([id number]) [address], [address] [place], [place] [address]Wgiicwbxyiep (U) [Mass/Vol]mg/dLNormal<1.1PTriHealth McCullough-Hyde Memorial HospitalComment on above:Performed By: #### PINR, 97601-8, CMP, 39939-4, 2777-1, CBCA, 67221-1 #### [facility] ([id number]) [address], [address] [place], [place] [address]M.B.CELLS2 /hpfNormal0-5PTriHealth McCullough-Hyde Memorial HospitalComment on above:Performed By: #### PINR, 22688-6, CMP, 11423-1, 2777-1, CBCA, 13579-8 #### [facility] ([id number]) [address], [address] [place], [place] [address]GOVEF CULTUREon 76-65-1895Wckgximb identified Cx Nom (U)CULTURE RESULTS <10,000 ORGANISMS/ML NORMAL URO GENITAL FLORANormalProOur Lady Of Mercy Hospitalca [facility] Comment on above:Performed By: #### PINR, 41663-8, CMP, 77171-3, 2777-1, CBCA, 12483-4 #### [facility] ([id number]) [address], [address] [place], [place] [address]Xplymvxgfrja 83-79-1547Cdeklrlap Ql (U)NegativeNegative^Negative [facility] SystemColor (U)YELLOWYELLOW^YELLOWKettering Health Hamilton System Epithelial cells Auto (Urine sed) [#/Area]1PSelect Medical Specialty Hospital - Cleveland-FairhillGlucose (U) [Mass/Vol]NegativeNegative^Negative mg/dLMount Carmel Health SystemHemoglobin Auto test strip Ql (U)LargeAbnormalNegative^NegativeKettering Health Hamilton System Interpretation and review of laboratory resultsAbnormOhioHealth Pickerington Methodist Hospital Ketones (U) [Mass/Vol]NegativeNegative^Negative mg/dLMount Carmel Health System Leukocyte esterase Auto test strip Ql (U)SmallAbnormalNegative^NegativeKettering Health Hamilton SystemMucus Ql (Urine sed)PRESENTAbnormalNONE^NONEMount Carmel Health SystemNitrite Auto test strip Ql (U)NegativeNegative^NegativeKettering Health Hamilton SystempH (U)6 [pH]5.0 - 8.5PMercy Health Anderson Hospital SystemProtein (U) [Mass/Vol]50 mg/dL AbnormalNegative^NegativeMount Carmel Health SystemRBC Auto (Urine sed) [#/Area]633 [facility] Dix Hospitalpecific gravity Refractometry automated (U) [Rel density]1.0121.003 - 1.035Mount Carmel Health SystemTurbidity Ql (U)HAZYAbnormal CLEAR^CLEARMount Carmel Health SystemUrobilinogen Qn (U)NINMetropolitan Saint Louis Psychiatric Center WBC Auto (Urine sed) [#/Area]2PAurora Medical Center System BASIC METABOLIC PANLon 63-10-8889Coqvt gap [Moles/Vol]12 mmol/LNormal5-15 SCCI Hospital LimaComment on above:Performed By: #### PINR, 45809-1, CMP, 13077-7, 2777-1, CBCA, 05027-4 #### [facility] ([id number]) [address], [address] [place], [place] [address]Rcectah [Mass/Vol]9.2 mg/dLNormal8.5-10.5ProMedica Ashraf HospitalComment on above:Performed By: #### PINR, 87500-5, CMP, 26607-3, 2777-1, CBCA, 97103-2 #### [facility] ([id number]) [address], [address] [place], [place] [address]Kzodtmnd [Moles/Vol]105 mmol/BTqawtr18-258CcyNlkyrk [place] HospitalComment on above:Performed By: #### PINR, 90628-0, CMP, 17656-2, 2777-1, CBCA, 25208-7 #### [facility] ([id number]) [address], [address] [place], [place] [address]MM9 [Moles/Vol]25 mmol/NIjrqqb09-04NlaReufmdTriHealth McCull[facility] Hospital Comment on above:Performed By: #### PINR, 30078-3, CMP, 31627-9, 2777-1, CBCA, 35624-0 #### [facility] ([id number]) [address], [address] [place], [place] [address]Zmgiphkvdq [Mass/Vol]0.53 mg/dLNormal0.40-1.00ProSamaritan HospitalComment on above:Result Comment: METHOD TRACEABLE TO IDMS STANDARD Performed By: #### PINR, 78833-5, CMP, 80527-5, 2777-1, CBCA, 65358-5 #### [facility] ([id number]) [address], [address] [place], [place] [address]kUEP (CKD-EPI) NON-RACE DEPENDENT>90Normal>59ProSamaritan HospitalComment on above:Result Comment: Reported eGFR is based on the CKD-EPI 2020 equation that does not use a race coefficient.Performed By: #### PINR, 20521-7, CMP, 27490-5, 2777- 1, CBCA, 99741-6 #### [facility] ([id number]) [address], [address] [place], [place] [address]Wxzzpcf [Mass/Vol]105 mg/yVUymu35-80FesVxvdtv [facility] Comment on above:Performed By: #### PINR, 71131-2, CMP, 89618-4, 2777-1, CBCA, 34897-3 #### [facility] ([id number]) [address], [address] [place], [place] [address]Ykrojqqjd [Moles/Vol]3.2 mmol/LLow3.5-5.0ProAkron Children'S Hospital HospitalComment on above:Performed By: #### PINR, 48188-5, CMP, 70392-3, 7-1, CBCA, 14938-6 #### [facility] ([id number]) [address], [address] [place], [place] [address]Myrqab [Moles/Vol]142 mmol/TLlhtof878-807WkfUkyagd [place] HospitalComment on above:Performed By: #### PINR, 08840-0, CMP, 65106-1, 7-1, CBCA, 86518-4 #### [facility] ([id number]) [address], [address] [place], [place] [address]Hncp nitrogen [Mass/Vol]16 mg/dLNormal5-27ProSamaritan HospitalComment on above:Performed By: #### PINR, 09715-2, CMP, 28840-8, 7-1, CBCA, 77087-5 #### [facility] ([id number]) [address], [address] [place], [place] [address]ZJGOOSGI BLOOD COUNTon 81-19-6964Ivmbkpkpxoy distribution width (RBC) [Ratio]15.3 %High11.5-15.0ProSamaritan HospitalComment on above: Performed By: #### PINR, 09804-5, CMP, 46953-4, 2777-1, CBCA, 44587-7 #### [facility] ([id number]) [address], [address] [place], [place] [address]Fqypmjejsi (Bld) [Volume fraction]35.5 %Txcwjj65-59HjwQosado Cleveland HospitalComment on above:Performed By: #### PINR, 31624-1, CMP, 79730-8, 2777-1, CBCA, 24368-2 #### [facility] ([id number]) [address], [address] [place], [place] [address]Dozbotdjvz (Bld) [Mass/Vol]12.0 g/rSSdotfl31.7-15.5Pro[facility] HospitalComment on above:Performed By: #### PINR, 14751-7, CMP, 49342-0, 2777-1, CBCA, 12796-7 #### [facility] ([id number]) [address], [address] [place], [place] [address]OSS (RBC) [Entitic mass]30.8 feSnhkbk00-72VfySbvmnr [place] HospitalComment on above:Performed By: #### PINR, 47674-8, CMP, 24850-3, 2777-1, CBCA, 99660-3 #### [facility] ([id number]) [address], [address] [place], [place] [address]RKAW (RBC) [Mass/Vol]33.8 g/bTZvsrmo16-79FzhRuilqb Cleveland HospitalComment on above:Performed By: #### PINR, 49121-3, CMP, 60498-4, 2777-1, CBCA, 90360-0 #### [facility] ([id number]) [address], [address] [place], [place] [address]AVC (RBC) [Entitic vol]91 xHXdrubk07-777HetVvyrxj Ashraf HospitalComment on above:Performed By: #### PINR, 72603-2, CMP, 31182-0, 2777-1, CBCA, 79108-5 #### [facility] ([id number]) [address], [address] [place], [place] [address]Isvobkau mean volume (Bld) [Entitic vol]7.2 fLNormal7-12 ProMRiverview Health InstituteComment on above:Performed By: #### PINR, 94797-1, CMP, 42896-2, 2777-1, CBCA, 39628-7 #### [facility] ([id number]) [address], [address] [place], [place] [address]Csrjzouvh (Bld) [#/Vol]162 10*3/lFCeflbw223-499HyqNaohja [place] HospitalComment on above:Performed By: #### PINR, 78628-9, CMP, 45496-2, 2777-1, CBCA, 65097-5 #### [facility] ([id number]) [address], [address] [place], [place] [address]WNC COUNT3.89 X10E12/LNormal3.80-5.20[facility] Comment on above:Performed By: #### PINR, 29910-2, CMP, 02899-6, 2777-1, CBCA, 89659-5 #### [facility] ([id number]) [address], [address] [place] [address]SXC (Bld) [#/Vol]7.9 10*3/uLNormal4.0-11.0ProSamaritan HospitalComment on above:Performed By: #### PINR, 28577-3, CMP, 86672-1, 2777-1, CBCA, 05146-9 #### [facility] ([id number]) [address], [address] [place], [place] [address]LI UROGRAPHY RETRO OPERATIVE W OR WO KUBon 15-37-2561MU UROGRAPHY RETRO OPERATIVE W OR WO KUBFL UROGRAPHY RETRO OPERATIVE W OR WO KUB FL UROGRAPHY RETRO OPERATIVE W OR WO KUB INDICATION: Kidney stone done in or. FINDINGS: Intraoperative fluoroscopy provided during left ureteral stent placement. No radiologist present during the examination. Reference Air Kerma: 12.5 mGy IMPRESSION: Intraoperative fluoroscopy provided as above. See operative report for additional details. Finalized by Marcus Nuno MD on 06/28/2024 2:59 PMNChillicothe Hospital STONE ANALYSISon 91-94-8236HRSJCB COMMENTSee NoteNormMercy Health St. Vincent Medical CenterComment on above:Result Comment: NOTE For stones containing calcium oxalate, calcium phosphate, and/or uric acid, a 24 hr urinary supersaturation test may help detect underlying risk factors for this type of stone formation and provide guidance for a stone prevention strategy. ADDITIONAL INFORMATION This test was developed and its performance characteristics determined by [facility] in a manner consistent with CLIA requirements. This test has not been cleared or approved by the U.S. Food and Drug Administration. Test Performed by: [facility] [address] [place] [address] Marketing Support Manager: John Pickett Ph.D.; CLIA# [id number]:LEFT URETERAL STONENormalUniversity Hospitals TriPoint [facility] Center Nvbopshdnaapvc788% Calcium oxalate monohydrate.NormalProSamaritan HospitalBASIC METABOLIC PANLon 06-27-2024 Anion gap [Moles/Vol]11 mmol/LNormal5-15ProSamaritan HospitalComment on above:Performed By: #### PINR, 06942-7, CMP, 95980-6, 2777-1, CBCA, 05825-5 #### [facility] ([id number]) [address] [facility], [address] [place], [place] [address]Skdfxwb [Mass/Vol]10.0 mg/dLNormal8.5-10.5PTriHealth McCullough-Hyde Memorial HospitalComment on above:Performed By: #### PINR, 20748-0, CMP, 44150-9, 2777-1, CBCA, 65552-5 #### [facility] ([id number]) [address], [address] [place], [place] [address]Zslerocr [Moles/Vol]102 mmol/LCangnu52-144YfwZoclid [place] HospitalComment on above:Performed By: #### BERNARD, 04682-2, CMP, 59226-8, 2777-1, CBCA, 86479-2 #### [facility] ([id number]) [address], [address] [place], [place] [address]IY6 [Moles/Vol]25 mmol/RAyczwh31-31ZqkZpkkcvTriHealth McCull[facility] Hospital Comment on above:Performed By: #### BERNARD, 26583-0, CMP, 50429-6, 7-1, CBCA, 53094-4 #### [facility] ([id number]) [address], [address] [place], [place] [address]Btmcwmaaee [Mass/Vol]0.61 mg/dLNormal0.40-1.00ProSamaritan HospitalComment on above:Result Comment: METHOD TRACEABLE TO IDMS STANDARD Performed By: #### BERNARD, 33326-4, CMP, 60167-2, 7-1, CBCA, 55201-6 #### [facility] ([id number]) [address], [address] [place], [place] [address]nOAM (CKD-EPI) NON-RACE DEPENDENT>90Normal>59ProSamaritan HospitalComment on above:Result Comment: Reported eGFR is based on the CKD-EPI 2021 equation that does not use a race coefficient.Performed By: #### PINR, 41598-7, CMP, 05009-2, 2777- 1, CBCA, 74930-1 #### [facility] ([id number]) [address], [address] [place], [place] [address]Gnmijoy [Mass/Vol]111 mg/uQGaht55-63QhsDzhipdSCCI Hospital [place]ima Comment on above:Performed By: #### PINR, 46091-9, CMP, 41738-0, 7-1, CBCA, 35586-7 #### [facility] ([id number]) [address], [address] [place], [place] [address]Xntxgysia [Moles/Vol]3.5 mmol/LNormal3.5-5.0ProMedica Ashraf HospitalComment on above:Performed By: #### PINR, 19167-3, CMP, 50967-5, 7-1, CBCA, 20926-8 #### [facility] ([id number]) [address], [address] [place], [place] [address]Nzshry [Moles/Vol]138 mmol/NKfnaep074-961KgjWdoihd Ashraf HospitalComment on above:Performed By: #### BERNARD, 85847-9, CMP, 96487-4, 7-, CBCA, 29075-4 #### [facility] ([id number]) [address], [address] [place], [place] [address]Kppi nitrogen [Mass/Vol]20 mg/dLNormal5-27ProOur Lady Of Mercy Hospitalca [place] HospitalComment on above:Performed By: #### PINR, 00712-0, CMP, 48664-5, 2776-1, CBCA, 02745-3 #### [facility] ([id number]) [address], [facility] [address] [place], [place] [address]TEZIZDXW BLOOD COUNTon 14-98-8510Immojupumhg distribution width (RBC) [Ratio]16.0 %High11.5-15.0ProOur Lady Of Mercy Hospitalca [place] HospitalComment on above: Performed By: #### PINR, 72598-5, CMP, 02302-4, 7-1, CBCA, 81201-9 #### [facility] ([id number]) [address], [address] [place], [place] [address]Znwgpuqpfo (Bld) [Volume fraction]38.2 %Ynlgea22-36RntBfblpv Ashraf HospitalComment on above:Performed By: #### PINR, 52222-3, CMP, 90615-7, 2777-1, CBCA, 20968-2 #### [facility] ([id number]) [address], [address] [place], [place] [address]Bdvnayzrzt (Bld) [Mass/Vol]12.8 g/eKUpruxu69.7-15.5ProMedica [place] HospitalComment on above:Performed By: #### PINR, 89253-1, CMP, 58386-9, 2777-1, CBCA, 29341-4 #### [facility] ([id number]) [address], [address] [place], [place] [address]EYH (RBC) [Entitic mass]30.5 ojBcjkgp51-20WpgSaokmk [facility] HospitalComment on above:Performed By: #### PINR, 52352-1, CMP, 61727-4, 2777-1, CBCA, 88322-4 #### [facility] ([id number]) [address], [address] [place], [place] [address]COMN (RBC) [Mass/Vol]33.5 g/wHCnpwjl22-74NbgBtbuhv [facility] HospitalComment on above:Performed By: #### PINR, 62438-6, CMP, 06229-4, 2777-1, CBCA, 30366-6 #### [facility] ([id number]) [address], [address] [place], [place] [address]YHH (RBC) [Entitic vol]91 dJFxktpo63-306XrfHgvooj [facility] HospitalComment on above:Performed By: #### PINR, 92737-1, CMP, 50991-7, 2777-1, CBCA, 50320-2 #### [facility] ([id number]) [address], [address] [place], [place] [address]Htzjvjvr mean volume (Bld) [Entitic vol]7.5 fLNormal7-12 ProMHighland District Hospital HospitalComment on above:Performed By: #### PINR, 30044-8, CMP, 59088-3, 2777-1, CBCA, 92871-0 #### [facility] ([id number]) [address], [address] [place], [place] [address]Swyerbwry (Bld) [#/Vol]213 10*3/hYAwdyru213-901ZdhUybbgu [facility] HospitalComment on above:Performed By: #### PINR, 65079-9, CMP, 65784-3, 2777-1, CBCA, 07388-3 #### [facility] ([id number]) [address], [address] [place], [place] [address]LRQ COUNT4.20 X10E12/LNormal3.80-5.20ProAkron [facility]'S [facility] Comment on above:Performed By: #### PINR, 44514-1, CMP, 20030-0, 2777-1, CBCA, 43185-7 #### [facility] ([id number]) [address], [address] [place], [place] [address]IRE (Bld) [#/Vol]9.9 10*3/uLNormal4.0-11.0ProSamaritan HospitalComment on above:Performed By: #### PINR, 86156-6, CMP, 96275-1, 2777-1, CBCA, 55181-5 #### [facility] ([id number]) [address], [address] [place], [place] [address]AFWPTSKKSCgh 76-84-6310Pmtmipcls Ql (U)NegativeNormalNEG ProMMemorial Health System HospitalComment on above:Performed By: #### UA #### [facility] ([id number]) [address], [address] [place], [place] [address]IUHPB/HGBNegativeNormalNEGProJ.W. Ruby Memorial Hospital HospitalComment on above:Performed By: #### UA #### [facility] ([id number]) [address], [address] [place], [place] [address]Xdwdm (U)YELLOWNormalYELLOWThe Surgical Hospital at SouthwoodsComment on above:Performed By: #### UA #### [facility] ([id number]) [address], [address] [place], [place] [address]Fgbrfnt Ql (U)NegativeNormalNEGThe Surgical Hospital at SouthwoodsComment on above:Performed By: #### UA #### [facility] ([id number]) [address], [address] [place], [place] [address]Stwhipc Ql (U)NegativeNormalNEGThe Surgical Hospital at SouthwoodsComholland hospital on above:Performed By: #### UA #### [facility] ([id number]) [address], [address] [place], [place] [address]Eejuqbayc esterase Test strip Ql (U)SmallAbnormalNEGThe Surgical Hospital at SouthwoodsComholland hospital on above:Performed By: #### UA #### [facility] ([id number]) [address], [address] [place], [place] [address]TWRGYIRGAFZJNUxoomrnaPKDSXmrGluvro Fremont HospitalComment on above:Performed By: #### UA #### [facility] ([id number]) [address], [address] [place], [place] [address]Pootime Ql (U)NegativeNormalNEGProHca Houston Healthcare NorthwestComment on above:Performed By: #### UA #### [facility] ([id number]) [address], [address] [place], [place] [address]mT (U)6.5 [pH]Normal5.0-8.5PJoint Township District Memorial HospitalComholland hospital on above:Performed By: #### UA #### [facility] ([id number]) [address], [address] [place], [place] [address]Wvhpnli Ql (U)NegativeNormalNEGProHca Houston Healthcare NorthwestComment on above:Performed By: #### UA #### [facility] ([id number]) [address], [address] [place], [place] [address]C.B.CELLS1 /hpfNormal0-5PJoint Township District Memorial HospitalComment on above:Performed By: #### UA #### [facility] ([id number]) [address] [facility], [address] [place], [place] [address]Vrybajtb gravity (U) [Rel density]1.803Xvnuhx0.003-1.035 Pro[facility] Medical Center Of San JoseComment on above:Performed By: #### UA #### [facility] ([id number]) [address] [facility], [address] [place], [place] [address]OSYXRQNE EPITHELIUM4 /hpfNormal0-5PRegency Hospital Company on above:Performed By: #### UA #### [facility] ([id number]) [address] [facility], [address] [place], [place] [address]QFQITQKANQAHLTRrfeppYVMCVObiFcgnex Fremont HospitalComment on above:Performed By: #### UA #### [facility] ([id number]) [address], [address] [place], [place] [address]Csifiavnarus (U) [Mass/Vol]mg/dLNormal<1.1PJoint Township District Memorial HospitalComment on above:Performed By: #### UA #### [facility] ([id number]) [address] [facility], [address] [place], [place] [address]N.B.CELLS6 /hpfHigh0-5PJoint Township District Memorial HospitalComment on above:Performed By: #### UA #### [facility] ([id number]) [address] [facility], [address] [place], [place] [address]LEQAY CULTUREon 85-39-7002Mvgtcipc identified Cx Nom (U)CULTURE RESULTS <10,000 ORGANISMS/ML NORMAL URO GENITAL FLORANormalProMedica Regional Medical Center Of San [facility] Comment on above:Performed By: #### 630-4 #### [facility] ([id number]) [address] [facility], [address] [place], [place] [address]Tyfcxdlrd Auto (Bld) [#/Vol]on 86-31-9400Cyhmapuki (Bld) [#/Vol] Automated basophil count0.0-0.1FCleveland Clinic Euclid HospitalBasophils/100 WBC Auto (Bld)on 18-62-5821Xepiazcql/100 WBC (Bld)Automated basophil %0.2-2.0 [facility] HospitalEosinophils/100 WBC Auto (Bld)on 05-30-2024 Eosinophils/100 WBC (Bld)Automated eosinophil %0.9-7.0[facility] HospitalErythrocyte distribution width Auto (RBC) [Ratio]on 85-64-5132Oublbnfergr distribution width (RBC) [Ratio]Erythrocyte distribution width [Ratio] by Automated count11.0-15.0[facility] HospitalEstimated glomerular filtration rate (GFR) non- Americanon 61-18-5959NYD/1.73 sq M.predicted among non-blacks MDRD (S/P/Bld) [Vol rate/Area]Estimated glomerular filtration rate (GFR) non->=60 mL/min/1.73m 2FCleveland Clinic Euclid HospitalGlobulin Calc (S) [Mass/Vol]on 42-16-5388Qojokiwi (S) [Mass/Vol]Serum globulin measurement by calculation (mass/volume)[facility] HospitalHematocrit Auto (Bld) [Volume fraction]on 90-89-4210Ckoyxmnnxk (Bld) [Volume fraction]Hematocrit [Volume Fraction] of Blood by Automated count 36.0-48.0[facility] HospitalHemoglobin [Mass/volume] in Bloodon 06-25-3971Cozdakkwgk (Bld) [Mass/Vol]Hemoglobin [Mass/volume] in Blood12.0-16.0 [facility] HospitalLaboratory - Chemistry and Chemistry - challengeon 60-67-3638Pzyxlyi [Mass/Vol]3.0 g/dLLow3.4-5.0[facility] HospitalALP [Catalytic activity/Vol]130 U/UWrvi53-594JbfmvhvdtOhiohealth Riverside Methodist HospitalALT [Catalytic activity/Vol]62 U/MDjiw04-95EnhomdwejOhiohealth Riverside Methodist HospitalAST [Catalytic activity/Vol]33 U/S28-89PhkpimitcOhiohealth Riverside Methodist HospitalBilirubin [Mass/Vol]0.4 mg/dL0.2-1.0[facility] Calcium [Mass/Vol]9.8 mg/dL8.5-10.1FC[facility]ucl[facility] HospitalChloride [Moles/Vol]102 mmol/W78-983LabierrdlOhiohealth Riverside Methodist HospitalCO2 [Moles/Vol]27.9 mmol/L21.0-32.0[facility] HospitalCreatinine [Mass/Vol]0.88 mg/dL 0.55-1.02[facility] HospitalGFR/1.73 sq M.predicted MDRD (S/P/Bld) [Vol rate/Area]mL/min/{1.73_m2}>=60 mL/min/1.73m 2FC[facility]ucl[facility] HospitalGlucose [Mass/Vol]99 mg/eC04-218SsqusqlsuOhiohealth Riverside Methodist HospitalPotassium [Moles/Vol]4.2 mmol/L3.5-5.1FC[facility] HospitalProtein [Mass/Vol] 7.7 g/dL6.4-8.2FOhioHealth Grady Memorial Hospitalodium [Moles/Vol]140 mmol/L 136-145[facility] HospitalUrea nitrogen [Mass/Vol]14.0 mg/dL 7.0-18.0[facility] HospitalUrea nitrogen/Creatinine [Mass ratio] 15.9 mg/mgOhiohealth Riverside Methodist HospitalLaboratory - Hematology and Cell countson 49-93-2328Hjqmwlqt granulocytes/100 WBC (Bld)0.5 %0.0-0.5FC[facility] Euclid HospitalLeukocytes [#/volume] corrected for nucleated erythrocytes in Blood by Automated counon 30-88-1545SRR corrected for nucl RBC Auto (Bld) [#/Vol]Leukocytes [#/volume] corrected for nucleated erythrocytes in Blood by Automated coun4.0-11.0[facility] HospitalLymphocytes Auto (Bld) [#/Vol]on 29-43-8968Hmotjeivvrx (Bld) [#/Vol]Lymphocytes [#/volume] in Blood by Automated count1.2-3.8[facility] HospitalLymphocytes/100 WBC Auto (Bld)on 32-16-4907Hcuedadrpvh/100 WBC (Bld)Lymphocytes/100 leukocytes in Blood by Automated count20.5-60.0[facility] CenterH Auto (RBC) [Entitic mass]on 46-59-9023CZD (RBC) [Entitic mass]MCH [Entitic mass] by Automated count26.7-34.0[facility] HospitalMCHC Auto (RBC) [Mass/Vol]on 30-63-4303FTEV (RBC) [Mass/Vol]MCHC [Mass/volume] by Automated count29.9-35.2FC[facility] HospitalMCV Auto (RBC) [Entitic vol]on 84-94-3055UUU (RBC) [Entitic vol]MCV [Entitic volume] by Automated count 81.0-99.0[facility] HospitalMonocytes Auto (Bld) [#/Vol]on 51-72-6304Sgkvzuswc (Bld) [#/Vol]Automated blood monocyte count0.3-0.8[facility] HospitalMonocytes/100 WBC Auto (Bld)on 64-38-6113Bspzbwtaf/100 WBC (Bld)Automated monocyte %1.7-12.0[facility] Neutrophils Auto (Bld) [#/Vol]on 98-81-6807Fcvforhgyye (Bld) [#/Vol]Neutrophils [#/volume] in Blood by Automated count1.4-6.5[facility] Neutrophils/100 WBC Auto (Bld)on 72-23-8119Lybvohvgovo/100 WBC (Bld)Automated neutrophil %43.0-75.0[facility] HospitalNo Panel Informationon 03-91-4938Tuvgxscmiat # (Auto)0.1 10 3/uL0.0-0.7FC[facility]ucl[facility] HospitalImmature Granulocyte # (Auto)0.05 10 3/uLHigh0.00-0.03[facility] HospitalPlatelet mean volume Auto (Bld) [Entitic vol]on 55-15-2658Bcfcmxqj mean volume (Bld) [Entitic vol]Platelet mean volume [Entitic volume] in Blood by Automated count9.5-13.5FCleveland Clinic Euclid HospitalPlatelets Auto (Bld) [#/Vol]on 24-38-5531Wqbusjosb (Bld) [#/Vol]Platelets [#/volume] in Blood by Automated alhik745-394DwvzqinuiOhiohealth Riverside Methodist HospitalRBC Auto (Bld) [#/Vol]on 82-11-0684YVU (Bld) [#/Vol]Erythrocytes [#/volume] in Blood by Automated count Low4.20-5.40Lutheran Hospitalerum or plasma albumin/globulin mass ratioon 60-35-5646Ynscqyo/Globulin [Mass ratio]Serum or plasma albumin/globulin mass ratioLutheran Hospitalerum or plasma anion gap determinationon 73-86-4578Qyjgr gap [Moles/Vol]Serum or plasma anion gap determinationOhiohealth Riverside Methodist HospitalBASIC METABOLIC PANLon 36-80-0871Nrdub gap [Moles/Vol]8 mmol/LNormal5-15[facility] Comment on above:Performed By: #### BERNARD, 20653-5, CMP, 14362-2, 2777-1, CBCA, 44131-0 #### [facility] ([id number]) [address], [address] [place], [place] [address]Mchlnhg [Mass/Vol]8.2 mg/dLLow8.5-10.5PTriHealth McCullough-Hyde Memorial Hospital Comment on above:Performed By: #### KATLYNR, 03183-4, CMP, 18737-9, 2777-1, CBCA, 48998-8 #### [facility] ([id number]) [address], [address] [place], [place] [address]Rlrsrnzo [Moles/Vol]104 mmol/DZngiom10-483OoyYipebk [place] HospitalComment on above:Performed By: #### PINR, 79704-4, CMP, 96725-5, 7-1, CBCA, 56276-0 #### [facility] ([id number]) [address], [address] [place], [place] [address]FC4 [Moles/Vol]26 mmol/HJheaev92-37FhxBzlynpTriHealth McCullough-Hyde [facility] Hospital Comment on above:Performed By: #### PINR, 56301-4, CMP, 40121-8, 7-1, CBCA, 43635-3 #### [facility] ([id number]) [address], [address] [place], [place] [address]Zicosdrpru [Mass/Vol]0.71 mg/dLNormal0.40-1.00ProSamaritan HospitalComment on above:Result Comment: METHOD TRACEABLE TO IDMS STANDARD Performed By: #### BERNARD, 40709-4, CMP, 70633-3, 7-1, CBCA, 27655-2 #### [facility] ([id number]) [address], [address] [place], [place] [address]mASD (CKD-EPI) NON-RACE DEPENDENT>90Normal>59ProSamaritan HospitalComment on above:Result Comment: Reported eGFR is based on the CKD-EPI 2021 equation that does not use a race coefficient.Performed By: #### PINR, 02647-0, CMP, 82154-1, 7- 1, CBCA, 94974-9 #### [facility] ([id number]) [address], [address] [place], [place] [address]Wdcnjww [Mass/Vol]101 mg/aUBsbu10-09GqvGwrudaSCCI Hospital [place] Comment on above:Performed By: #### PINR, 73430-8, CMP, 56750-5, 2777-1, CBCA, 01782-9 #### [facility] ([id number]) [address], [address] [place], [place] [address]Zgydrgcxb [Moles/Vol]4.4 mmol/LNormal3.5-5.0ProSamaritan HospitalComment on above:Result Comment: SPECIMEN HEMOLYZED, RESULTS INCREASED MODERATELY HEMOLYZEDPerformed By: #### PINR, 51438-6, CMP, 49193-6, 2777-1, CBCA, 97133-9 #### [facility] ([id number]) [address], [address] [place], [place] [address]Srjnnp [Moles/Vol]138 mmol/PQxwhfe392-266LspLwhjfp [place] HospitalComment on above:Performed By: #### PINR, 13706-4, CMP, 61880-7, 2777-1, CBCA, 38581-3 #### [facility] ([id number]) [address], [address] [place], [place] [address]Xojp nitrogen [Mass/Vol]19 mg/dLNormal5-27ProSamaritan HospitalComment on above:Performed By: #### PINR, 66611-7, CMP, 94298-1, 2777-1, CBCA, 54844-3 #### [facility] ([id number]) [address], [address] [place], [place] [address]Qtkov Metabolic Panelon 89-17-1583Bgvmj gap [Moles/Vol]8 mmol/L5 - 15 mmol/[facility] SystemCalcium [Mass/Vol]8.2 mg/dLLow8.5 - 10.5 mg/dLProMary Rutan Hospital SystemChloride [Moles/Vol]104 mmol/L98 - 109 mmol/L [facility] SystemCO2 [Moles/Vol]26 mmol/L22 - 32 mmol/LProMedUniversity Hospitals Health System SystemCreatinine [Mass/Vol]0.71 mg/dL0.40 - 1.00 mg/dLKettering Health Hamilton System Comment on above:METHOD TRACEABLE TO IDMS STANDARDeGFR (CKD-EPI)non-race dependent- [facility] PatrickComment on above: Reported eGFR is based on the CKD-EPI 2020 equation that does not use a race coefficient. Glucose [Mass/Vol]101 mg/qBZibf88 - 99 mg/dLProMedica Health System Interpretation and review of laboratory resultsAbnormalMount Carmel Health System Potassium [Moles/Vol]4.4 mmol/L3.5 - 5.0 mmol/[facility] SystemComment on above:SPECIMEN HEMOLYZED, RESULTS INCREASED MODERATELY HEMOLYZED Sodium [Moles/Vol]138 mmol/L134 - 146 mmol/[facility] SystemUrea nitrogen [Mass/Vol]19 mg/dL5 - 27 mg/dLMount Carmel Health SystemCBC AND AUTO DIFFon 64-73-8486Tmgvymrmjcy (Bld) [#/Vol]0.5 10*3/uLHigh0.0-0.4[facility] Hospital LimaComment on above:Performed By: #### BERNARD, 39419-3, CMP, 43920-2, 7-1, CBCA, 47019-2 #### [facility] ([id number]) [address], [address] [place], [place] [address]Aqymrwtswbp/100 WBC (Bld)4.8 %NormalSCCI Hospital [place] Comment on above:Performed By: #### BERNARD, 61802-0, CMP, 38928-9, 2776-1, CBCA, 34589-9 #### [facility] ([id number]) [address], [address] [place], [place] [address]Cslochcrild distribution width (RBC) [Ratio]15.0 %Normal 11.5-15.0S[facility] Hospital LimaComment on above:Performed By: #### PINR, 62139-0, CMP, 17057-2, 2776-1, CBCA, 24964-6 #### [facility] ([id number]) [address], [address] [place], [place] [address]Jiikhxskvy (Bld) [Volume fraction]35.1 %Dwfhxd38-16MuyJbssdbSamaritan HospitalComment on above:Performed By: #### PINR, 69291-3, CMP, 09719-0, 7-1, CBCA, 67924-8 #### [facility] ([id number]) [address], [address] [place], [place] [address]Ehscdstpui (Bld) [Mass/Vol]12.2 g/tTEbrnmu83.7-15.5PCleveland [facility] HospitalComment on above:Performed By: #### PINR, 39047-4, CMP, 80995-1, 2777-1, CBCA, 31142-2 #### [facility] ([id number]) [address], [address] [place], [place] [address]Wjettspgvzz (Bld) [#/Vol]3.9 10*3/uLHigh1.0-3.5PCleveland Clinic [facility] HospitalComment on above:Performed By: #### PINR, 15612-0, CMP, 67115-2, 2777-1, CBCA, 24035-2 #### [facility] ([id number]) [address], [address] [place], [place] [address]Azoxwcsvqcv/100 WBC (Bld)39.4 %NormalProAkron Children'S Hospital Hospital Comment on above:Performed By: #### PINR, 44080-9, CMP, 60738-1, 2777-1, CBCA, 68254-4 #### [facility] ([id number]) [address], [address] [place], [place] [address]FYX (RBC) [Entitic mass]30.3 yhIukwqb15-47CkdVuzxor [place] HospitalComment on above:Performed By: #### PINR, 48073-3, CMP, 95820-7, 2777-1, CBCA, 14566-4 #### [facility] ([id number]) [address], [address] [place], [place] [address]WHSF (RBC) [Mass/Vol]34.6 g/fSPeeocu13-12MmrCfpnfi [place] HospitalComment on above:Performed By: #### PINR, 50708-7, CMP, 19319-7, 2777-1, CBCA, 85276-3 #### [facility] ([id number]) [address], [address] [place], [place] [address]XGY (RBC) [Entitic vol]88 lBDovmhx81-448OixQpjfrv Cleveland HospitalComment on above:Performed By: #### PINR, 02905-1, CMP, 82620-1, 2777-1, CBCA, 39231-2 #### [facility] ([id number]) [address], [address] [place], [place] [address]Amzieoxkc (Bld) [#/Vol]0.4 10*3/uLNormal0-0.9Pro[facility]ica [facility] HospitalComment on above:Performed By: #### PINR, 17800-1, CMP, 43096-8, 2777-1, CBCA, 05262-4 #### [facility] ([id number]) [address], [address] [place], [place] [address]Mpexrzdtj/100 WBC (Bld)3.8 %NormalProOur Lady Of Mercy Hospitalca [facility] Comment on above:Performed By: #### PINR, 22973-6, CMP, 42572-9, 2777-1, CBCA, 78315-2 #### [facility] ([id number]) [address], [address] [place], [place] [address]ZYACTZXTQ3.0 %NormalProOur Lady Of Mercy Hospitalca [place] HospitalComment on above: Performed By: #### PINR, 65555-1, CMP, 97593-3, 2777-1, CBCA, 07208-0 #### [facility] ([id number]) [address], [address] [place], [place] [address]Ubtpyznckwa (Bld) [#/Vol]5.0 10*3/uLNormal1.5-6.6ProMedica [place] HospitalComment on above:Performed By: #### PINR, 73740-9, CMP, 55898-7, 2777-1, CBCA, 97223-7 #### [facility] ([id number]) [address], [address] [place], [place] [address]Kibiqocp mean volume (Bld) [Entitic vol]8.4 fLNormal7-12 [facility] [place] HospitalComment on above:Performed By: #### PINR, 79264-8, CMP, 51487-4, 2777-1, CBCA, 36321-0 #### [facility] ([id number]) [address], [address] [place], [place] [address]Bfvyuxjyy (Bld) [#/Vol]137 10*3/hNOum333-230SwnPrlacq Ashraf HospitalComment on above:Performed By: #### PINR, 04169-4, CMP, 24198-1, 2777-1, CBCA, 15231-8 #### [facility] ([id number]) [address], [address] [place], [place] [address]BXS COUNT4.01 X10E12/LNormal3.80-5.20[facility] Comment on above:Performed By: #### PINR, 70543-6, CMP, 63896-6, 2777-1, CBCA, 70099-2 #### [facility] ([id number]) [address], [address] [place], [place] [address]XBV morphology finding Nom (Bld)NORMALNormalProMedica Ashraf HospitalComment on above:Performed By: #### PINR, 26990-3, CMP, 36646-8, 2777-1, CBCA, 20849-3 #### [facility] ([id number]) [address], [address] [place], [place] [address]LJJ TNDKRMJTCM69.0 %NormalProMedica Ashraf HospitalComment on above:Performed By: #### PINR, 21370-0, CMP, 35170-9, 2777-1, CBCA, 39304-5 #### [facility] ([id number]) [address], [address] [place], [place] [address]CXA (Bld) [#/Vol]9.8 10*3/uLNormal4.0-11.0S[facility] Hospital LimaComment on above:Performed By: #### PINR, 98639-7, CMP, 08804-8, 2777-1, CBCA, 62089-3 #### [facility] ([id number]) [address], [address] [place], [place] [address]FRT auto differentialon 16-24-8229Pqthulrxtwr (Bld) [#/Vol]0.5 10*3/uLReston Hospital CenterEosinophils/100 WBC (Bld)4.8 %[facility] Health SystemErythrocyte distribution width (RBC) [Ratio]15 %11.5 - 15.0 %[facility] Health SystemHematocrit (Bld) [Volume fraction]35.1 %35 - 47 %[facility] SystemHemoglobin (Bld) [Mass/Vol]12.2 g/dL11.7 - 15.5 g/dLMount Carmel Health SystemInterpretation and review of laboratory resultsAbnormalMount Carmel Health SystemLymphocytes (Bld) [#/Vol]3.9 10*3/uLReston Hospital Center Lymphocytes/100 WBC (Bld)39.4 %[facility] Health SystemMCH (RBC) [Entitic mass] 30.3 pg27 - 34 [facility] ClinicMCHC (RBC) [Mass/Vol]34.6 g/dL32 - 36 g/dLMount Carmel Health SystemMCV (RBC) [Entitic vol]88 fL80 - 100 [facility] WestMonocytes (Bld) [#/Vol]0.4 10*3/uLKettering Health Hamilton System Monocytes/100 WBC (Bld)3.8 %[facility] SystemMyelocytes/100 WBC (Bld)1 % [facility] SystemNeutrophils (Bld) [#/Vol]5 10*3/uLMount Carmel Health System Platelet mean volume (Bld) [Entitic vol]8.4 fL7 - 12 fLPSelect Medical Specialty Hospital - [facility]-Fairhill Platelets (Bld) [#/Vol]137 10*3/uLLowMount Carmel Health SystemPolymorphonuclear cells/100 WBC (Bld)NORMALProUc HealthRBC (Bld) [#/Vol]4.01 10*6/uL [facility] Medical Centeregmented neutrophils/100 WBC (Bld)51 %[facility] Health SystemWBC corrected for nucl RBC Auto (Bld) [#/Vol]9.8[facility] Hospital of ScrantonMAGNESIUMon 60-17-4896Hifzghfkp [Mass/Vol]1.8 mg/dLNormal 1.8-2.6[facility] [place]imaComment on above:Performed By: #### BERNARD, 36207- 9, CMP, 69383-3, 2777-1, CBCA, 88255-1 #### [facility] ([id number]) [address], [address] [place], [place] [address]Hxskabapeiv 24-88-6901Cnfjjvreb [Mass/Vol]1.8 mg/dL1.8 - 2.6 mg/dLMount Carmel Health SystemNo Panel Informationon 52-35-1804FsoGlomliSelect Medical Specialty Hospital - Cleveland-FairhillBASIC METABOLIC PANLon 46-85-1429Qldld gap [Moles/Vol]10 mmol/LNormal5-15 [facility] LimaComment on above:Performed By: #### BERNARD, 20540-2, CMP, 29750-1, 7-1, CBCA, 03794-3 #### [facility] ([id number]) [address], [address] [place], [place] [address]Zvxnyvc [Mass/Vol]8.9 mg/dLNormal8.5-10.5PTriHealth McCullough-Hyde Memorial HospitalComment on above:Performed By: #### KATLYNR, 22241-0, CMP, 94821-1, 2777-1, CBCA, 87358-0 #### [facility] ([id number]) [address], [address] [place], [place] [address]Kmjlqhdl [Moles/Vol]105 mmol/CSqjfyh16-718PobCnbraxSCCI Hospital LimaComment on above:Performed By: #### PINR, 39157-3, CMP, 50336-8, 2777-1, CBCA, 53644-6 #### [facility] ([id number]) [address], [address] [place], [place] [address]OQ7 [Moles/Vol]26 mmol/EDapdtz45-01IqjYtyfuxTriHealth McCullough-Hyde Memorial Hospital Comment on above:Performed By: #### KATLYNR, 71364-2, CMP, 61342-1, 2777-1, CBCA, 72886-3 #### [facility] ([id number]) [address], [address] [place], [place] [address]Dtuxupggwa [Mass/Vol]0.79 mg/dLNormal0.40-1.00S[facility] Hospital LimaComment on above:Result Comment: METHOD TRACEABLE TO IDMS STANDARD Performed By: #### KATLYNR, 74063-5, CMP, 27076-8, 2777-1, CBCA, 23650-1 #### [facility] ([id number]) [address], [address] [place], [place] [address]PRZ/1.73 sq M.predicted among non-blacks MDRD (S/P/Bld) [Vol rate/Area]82 mL/min/{1.73_m2}Normal>59ProSamaritan HospitalComment on above: Result Comment: Reported eGFR is based on the CKD-EPI 2020 equation that does not use a race coefficient.Performed By: #### PINR, 89017-7, CMP, 69893-6, 2777- 1, CBCA, 71066-0 #### [facility] ([id number]) [address], [address] [place], [place] [address]Wgcqxfq [Mass/Vol]89 mg/qRZiesag90-75YvkYiovxx [facility] Comment on above:Performed By: #### PINR, 54667-5, CMP, 29234-4, 2777-1, CBCA, 50624-9 #### [facility] ([id number]) [address], [address] [place], [place] [address]Flggqvkwy [Moles/Vol]3.7 mmol/LNormal3.5-5.0ProAkron Children'S Hospital HospitalComment on above:Performed By: #### PINR, 70001-4, CMP, 76559-6, 2777-1, CBCA, 15965-8 #### [facility] ([id number]) [address], [address] [place], [place] [address]Yqdrxt [Moles/Vol]141 mmol/BMjtmdv388-114PvcUfyzce [place] HospitalComment on above:Performed By: #### KATLYNR, 77544-9, CMP, 14784-8, 7-1, CBCA, 02242-4 #### [facility] ([id number]) [address], [address] [place], [place] [address]Rvdz nitrogen [Mass/Vol]26 mg/dLNormal5-27ProAkron Children'S Hospital HospitalComment on above:Performed By: #### PINR, 40765-6, CMP, 75049-0, 7-1, CBCA, 06209-3 #### [facility] ([id number]) [address], [address] [place], [place] [address]Uvxlv Metabolic Panelon 09-31-5122Fewhc gap [Moles/Vol]10 mmol/L 5 - 15 mmol/LProMedica Health SystemCalcium [Mass/Vol]8.9 mg/dL8.5 - 10.5 mg/dL [facility] Health SystemChloride [Moles/Vol]105 mmol/L98 - 109 mmol/LProMedica Health SystemCO2 [Moles/Vol]26 mmol/L22 - 32 mmol/LProMedica Health System Creatinine [Mass/Vol]0.79 mg/dL0.40 - 1.00 mg/dLProMary Rutan Hospital SystemComment on above:METHOD TRACEABLE TO IDOK STANDARDeGFR (CKD-EPI)non-race - PINFPSelect Medical Specialty Hospital - Cleveland-FairhillComment on above: Reported eGFR is based on the CKD-EPI 2020 equation that does not use a race coefficient. Glucose [Mass/Vol]89 mg/dL65 - 99 mg/dLMount Carmel Health SystemPotassium [Moles/Vol]3.7 mmol/L3.5 - 5.0 mmol/LPrSCL Health Community Hospital - Southwest Health SystemSodium [Moles/Vol] 141 mmol/L134 - 146 mmol/LPrOhioHealth Dublin Methodist Hospital SystemUrea nitrogen [Mass/Vol]26 mg/dL5 - 27 mg/dLMount Carmel Health SystemCBC AND AUTO DIFFon 20-22-2070CPBDPHZQ BASOPHIL0.0 X10E9/LNormal0.0-0.2PTriHealth McCullough-Hyde Memorial HospitalComment on above: Performed By: #### BERNARD, 24931-4, CMP, 05424-5, 2777-1, CBCA, 46602-1 #### [facility] ([id number]) [address], [address] [place], [place] [address]GEMMVKZD LWZVVGVSGJ94.4 X10E9/LHigh1.5-6.6S[facility] Hospital LimaComment on above:Performed By: #### BERNARD, 43312-9, CMP, 49506-4, 2777-1, CBCA, 07668-4 #### [facility] ([id number]) [address], [address] [place], [place] [address]Iaphqjbkx/100 WBC (Bld)0.3 %NormalSCCI Hospital [place] Comment on above:Performed By: #### PINR, 62037-2, CMP, 62098-9, 2777-1, CBCA, 32967-1 #### [facility] ([id number]) [address], [address] [place], [place] [address]Edacmdsrojc (Bld) [#/Vol]0.2 10*3/uLNormal0.0-0.4S[facility] Hospital LimaComment on above:Performed By: #### PINR, 98295-6, CMP, 52911-5, 2777-1, CBCA, 26887-1 #### [facility] ([id number]) [address], [address] [place], [place] [address]Qryhuwpcpiv/100 WBC (Bld)1.6 %NormalProOur Lady Of Mercy Hospitalca [facility] Comment on above:Performed By: #### PINR, 77015-4, CMP, 00109-0, 2777-1, CBCA, 96631-7 #### [facility] ([id number]) [address], [address] [place], [place] [address]Sjovsuqnvwg distribution width (RBC) [Ratio]15.4 %High11.5-15.0 [facility]oria City HospitalComment on above:Performed By: #### PINR, 27819-8, CMP, 46624-8, 7-1, CBCA, 52918-9 #### [facility] ([id number]) [address], [address] [place], [place] [address]Crllfkdnyq (Bld) [Volume fraction]39.5 %Omgyrv45-49MvvZbzujbSamaritan HospitalComment on above:Performed By: #### PINR, 51535-6, CMP, 05053-6, 2777-1, CBCA, 34968-9 #### [facility] ([id number]) [address], [address] [place], [place] [address]Enrygjhtqb (Bld) [Mass/Vol]13.6 g/cRNrnfnj45.7-15.5Pro[facility]ica [facility]ostoria City HospitalComment on above:Performed By: #### PINR, 05335-3, CMP, 81177-6, 2777-1, CBCA, 55040-6 #### [facility] ([id number]) [address], [address] [place], [place] [address]Vjswvehufqp (Bld) [#/Vol]3.2 10*3/uLNormal1.0-3.5[facility] [place] HospitalComment on above:Performed By: #### PINR, 87754-6, CMP, 12257-6, 2777-1, CBCA, 90874-1 #### [facility] ([id number]) [address] [place], [place] [address]Slopbmnnfsu/100 WBC (Bld)21.7 %NormalProAkron Children'S Hospital Hospital Comment on above:Performed By: #### PINR, 63596-8, CMP, 18626-0, 2777-1, CBCA, 84649-6 #### [facility] ([id number]) [address], [address] [place], [place] [address]QUZ (RBC) [Entitic mass]30.2 knLhpbhe54-84KcjAjybuv [place] HospitalComment on above:Performed By: #### PINR, 37685-0, CMP, 14722-1, 2777-1, CBCA, 88300-6 #### [facility] ([id number]) [address], [address] [place], [place] [address]CPSM (RBC) [Mass/Vol]34.3 g/bEFeuddq30-38ZwiFsvhnc [place] HospitalComment on above:Performed By: #### PINR, 66904-0, CMP, 30251-3, 2777-1, CBCA, 92877-4 #### [facility] ([id number]) [address], [address] [place], [place] [address]YGF (RBC) [Entitic vol]88 kMJwwwnv81-414AksRgekov [place] HospitalComment on above:Performed By: #### PINR, 75318-4, CMP, 83660-5, 2777-1, CBCA, 40629-1 #### [facility] ([id number]) [address], [address] [place], [place] [address]Xchwldrwf (Bld) [#/Vol]0.7 10*3/uLNormal0-0.9[facility] HospitalComment on above:Performed By: #### PINR, 51116-4, CMP, 78370-3, 2777-1, CBCA, 51185-3 #### [facility] ([id number]) [address] [place], [place] [address]Yrjskauvz/100 WBC (Bld)5.1 %NormalSCCI Hospital [place] Comment on above:Performed By: #### PINR, 39075-1, CMP, 57059-9, 2777-1, CBCA, 05399-4 #### [facility] ([id number]) [address] [place], [place] [address]Cazofcorrxz/100 WBC (Bld)71.3 %NormalSCCI Hospital [place] Comment on above:Performed By: #### PINR, 51879-8, CMP, 44577-5, 2777-1, CBCA, 17383-5 #### [facility] ([id number]) [address] [place], [place] [address]Kkrjjsvi mean volume (Bld) [Entitic vol]8.3 fLNormal7-12 [facility] City HospitalComment on above:Performed By: #### PINR, 53548-6, CMP, 85870-3, 2777-1, CBCA, 16009-6 #### [facility] ([id number]) [address], [address] [place], [place] [address]Athyqnsdz (Bld) [#/Vol]130 10*3/nMZac387-259ArxPdazcx Cleveland HospitalComment on above:Performed By: #### PINR, 36503-5, CMP, 04977-3, 2777-1, CBCA, 68603-7 #### [facility] ([id number]) [address], [address] [place], [place] [address]ACG COUNT4.49 X10E12/LNormal3.80-5.20[facility] Comment on above:Performed By: #### PINR, 42250-3, CMP, 84098-3, 2777-1, CBCA, 74105-7 #### [facility] ([id number]) [address], [address] [place], [place] [address]UCD (Bld) [#/Vol]14.6 10*3/uLHigh4.0-11.0[facility] Hospital LimaComment on above:Performed By: #### PINR, 87941-9, CMP, 06673-9, 2777-1, CBCA, 55315-6 #### [facility] ([id number]) [address], [address] [place], [place] [address]VUP auto differentialon 86-95-4159Qyqidfpdy (Bld) [#/Vol]0 10*3/uLMount Carmel Health SystemBasophils/100 WBC (Bld)0.3 %[facility] SystemEosinophils (Bld) [#/Vol]0.2 10*3/uLMount Carmel Health SystemEosinophils/100 WBC (Bld)1.6 %[facility] SystemErythrocyte distribution width (RBC) [Ratio]15.4 %High11.5 - 15.0 %[facility] SystemHematocrit (Bld) [Volume fraction]39.5 %35 - 47 %[facility] SystemHemoglobin (Bld) [Mass/Vol]13.6 g/dL11.7 - 15.5 g/dLMount Carmel Health SystemInterpretation and review of laboratory resultsAbnormalMount Carmel Health SystemLymphocytes (Bld) [#/Vol]3.2 10*3/uLMount Carmel Health SystemLymphocytes/100 WBC (Bld)21.7 %[facility] HospitalH (RBC) [Entitic mass]30.2 pg27 - 34 [facility] ClinicMCHC (RBC) [Mass/Vol]34.3 g/dL32 - 36 g/dLMount Carmel Health SystemMCV (RBC) [Entitic vol]88 fL80 - 100 [facility] WestMonocytes (Bld) [#/Vol]0.7 10*3/uLMount Carmel Health SystemMonocytes/100 WBC (Bld)5.1 %[facility] SystemNeutrophils (Bld) [#/Vol]10.4 10*3/uLHighKettering Health Hamilton SystemNeutrophils/100 WBC (Bld) 71.3 %[facility] SystemPlatelet mean volume (Bld) [Entitic vol]8.3 fL7 - 12 [facility] SystemPlatelets (Bld) [#/Vol]130 10*3/uLLowKettering Health Hamilton SystemRBC (Bld) [#/Vol]4.49 10*6/[facility] HospitalWBC corrected for nucl RBC Auto (Bld) [#/Vol]14.6HAdvanced Surgical HospitalCalcium.ionized (Bld) [Mass/Vol]on 08-63-8634ChoOkpawkSelect Medical Specialty Hospital - [place] IONIZED CALCIUM4.8 mg/dLNormal4.5-5.3PTriHealth McCullough-Hyde Memorial HospitalComment on above: Performed By: #### PINR, 19082-6, CMP, 95833-7, 2776-, CBCA, 33619-6 #### [facility] ([id number]) [address] [place] [address], [address] [place], [place] [address]Sascmbd calciumon 05-90-4913Oghqvtk.ionized (Bld) [Mass/Vol]4.8 mg/dL4.5 - 5.3 mg/dLMount Carmel Health SystemIonized magnesiumon 05-25-2024 Magnesium Ionized ISE (Bld) [Moles/Vol]0.56 mmol/L0.45 - 0.74 mmol/LPrElyria Memorial HospitalComment on above:NEW REFERENCE RANGEMAGNESIUMon 31-60-0776Xeftdyxvb [Mass/Vol]1.8 mg/dLNormal1.8-2.6[facility] Hospital LimaComment on above: Performed By: #### PINR, 12152-1, CMP, 83882-2, 2776-1, CBCA, 63972-6 #### [facility] ([id number]) [address], [address] [place], [place] [address]Mpagclsgzyf 15-63-7558Plrlpgpmi [Mass/Vol]1.8 mg/dL1.8 - 2.6 mg/dLProMary Rutan Hospital SystemMagnesium Ionized ISE (Bld) [Moles/Vol]on 05-25-2024 [facility] SystemMagnesium [Moles/Vol]0.56 mmol/LNormal0.45-0.74ProSamaritan HospitalComment on above:Result Comment: NEW REFERENCE RANGEPerformed By: #### PINR, 99491-1, CMP, 04597-1, 7-1, CBCA, 51240-1 #### [facility] ([id number]) [address], [address] [place], [place] [address]Vn Panel Informationon 43-50-1870EqiVzgkih Health System POTASSIUMon 59-42-5390Gcwcowqyr [Moles/Vol]3.9 mmol/LNormal3.5-5.0[facility] Hospital LimaComment on above:Performed By: #### PINR, 65322-1, CMP, 88303-5, 2776-1, CBCA, 04469-6 #### [facility] ([id number]) [address], [address] [place], [place] [address]Pyxwjscbnwe 91-56-5392Fwtraqmdi [Moles/Vol]3.9 mmol/L3.5 - 5.0 mmol/LProMedica [facility] SystemPotassium [Moles/Vol]on 16-95-0332NpyPmrqym Health SystemBacteria identified Aer cx Nom (Bld)on 44-45-7635Fhwfryrlgnrgwf and review of laboratory resultsAbnormalProOur Lady Of Mercy Hospitalca Health SystemService comment (Unsp spec) [Interp]ESCHERICHIA COLIAbnormalProOur Lady Of Mercy Hospitalca Health SystemService comment (Unsp spec) [Interp]FOR SUSCEPTIBILITY, SEE PREVIOUS REPORT.[facility] Hospitaledic Health SystemInterpretation and review of laboratory resultsAbnormal [facility]ica Health SystemService comment (Unsp spec) [Interp]ESCHERICHIA COLI AbnormalProOur Lady Of Mercy Hospitalca Health SystemService comment (Unsp spec) [Interp]Detected [facility] SystemProDale Medical Center Health SystemCBC AND AUTO DIFFon 72-89-6273Ueii form neutrophils/100 WBC (Bld)3.0 %NormalProAkron Children'S Hospital HospitalComment on above:Performed By: #### PINR, 55239-6, CMP, 59864-2, 7-1, CBCA, 02922-8 #### [facility] ([id number]) [address], [address] [place], [place] [address]Nqeaufkcqri (Bld) [#/Vol]0.2 10*3/uLNormal0.0-0.4ProAkron Children'S Hospital HospitalComment on above:Performed By: #### PINR, 12448-5, CMP, 83576-1, 7-1, CBCA, 89196-9 #### [facility] ([id number]) [address], [address] [place], [place] [address]Hvuvmbzvqll/100 WBC (Bld)1.0 %NormalSt. Rita's Hospital Hospital Comment on above:Performed By: #### PINR, 08309-7, CMP, 20423-6, 7-1, CBCA, 03833-2 #### [facility] ([id number]) [address], [address] [place], [place] [address]Zdjvhvlftph distribution width (RBC) [Ratio]15.3 %High11.5-15.0 ProMHighland District Hospital HospitalComment on above:Performed By: #### PINR, 04008-5, CMP, 77238-6, 2777-1, CBCA, 80539-3 #### [facility] ([id number]) [address], [address] [place], [place] [address]Onfzbboxsi (Bld) [Volume fraction]34.2 %Cfd22-69JhgWyjdnu [place] HospitalComment on above:Performed By: #### PINR, 32726-7, CMP, 24188-2, 2777-1, CBCA, 79382-9 #### [facility] ([id number]) [address], [address] [place], [place] [address]Cxyybagiqs (Bld) [Mass/Vol]11.5 g/dLLow11.7-15.5ProMedElyria Memorial Hospital HospitalComment on above:Performed By: #### PINR, 76035-7, CMP, 11676-5, 2777- 1, CBCA, 16989-6 #### [facility] ([id number]) [address], [address] [place], [place] [address]Ciczgoqlzia (Bld) [#/Vol]2.4 10*3/uLNormal1.0-3.5ProMedElyria Memorial Hospital HospitalComment on above:Performed By: #### PINR, 53825-5, CMP, 70121-4, 2777-1, CBCA, 23869-7 #### [facility] ([id number]) [address], [address] [place], [place] [address]Gsmyfnosfer/100 WBC (Bld)11.0 %NormalProAkron Children'S Hospital Hospital Comment on above:Performed By: #### PINR, 09376-4, CMP, 35584-8, 2777-1, CBCA, 15350-4 #### [facility] ([id number]) [address], [address] [place], [place] [address]MJM (RBC) [Entitic mass]29.8 stGmcefo76-19BhsQkfmtm [place] HospitalComment on above:Performed By: #### PINR, 32821-4, CMP, 67935-0, 2777-1, CBCA, 75405-8 #### [facility] ([id number]) [address], [address] [place], [place] [address]QCNC (RBC) [Mass/Vol]33.7 g/zGKxafgr83-39TtnUlcqej [place] HospitalComment on above:Performed By: #### PINR, 39412-8, CMP, 01977-2, 2777-1, CBCA, 04651-4 #### [facility] ([id number]) [address], [address] [place], [place] [address]GET (RBC) [Entitic vol]89 cVTfykgr44-939AzhYklulp [place] HospitalComment on above:Performed By: #### PINR, 16883-4, CMP, 14166-4, 2777-1, CBCA, 67291-7 #### [facility] ([id number]) [address], [address] [place], [place] [address]Jcgertjxq (Bld) [#/Vol]0.9 10*3/uLNormal0-0.9ProAkron Children'S Hospital HospitalComment on above:Performed By: #### PINR, 10061-3, CMP, 11487-5, 2777-1, CBCA, 12996-3 #### [facility] ([id number]) [address], [address] [place], [place] [address]Xykexzmbs/100 WBC (Bld)4.0 %NormalProAkron Children'S Hospital Hospital Comment on above:Performed By: #### PINR, 50219-7, CMP, 44692-3, 2777-1, CBCA, 04911-5 #### [facility] ([id number]) [address], [address] [place], [place] [address]Olvrrkabzms (Bld) [#/Vol]18.5 10*3/uLHigh1.5-6.6ProAkron Children'S Hospital HospitalComment on above:Performed By: #### PINR, 60561-7, CMP, 84894-2, 2777- 1, CBCA, 39068-5 #### [facility] ([id number]) [address], [address] [place], [place] [address]Fgfrpanh mean volume (Bld) [Entitic vol]8.6 fLNormal7-12 [facility] HospitalComment on above:Performed By: #### PINR, 96037-0, CMP, 68025-5, 2777-1, CBCA, 38498-9 #### [facility] ([id number]) [address], [address] [place], [place] [address]Nbfactomg (Bld) [#/Vol]103 10*3/wIYbs295-138ZqzXbcwan Ashraf HospitalComment on above:Performed By: #### PINR, 08506-5, CMP, 76935-4, 2777-1, CBCA, 18534-8 #### [facility] ([id number]) [address], [address] [place] [address]EAN COUNT3.87 X10E12/LNormal3.80-5.20[facility] Comment on above:Performed By: #### PINR, 52877-5, CMP, 94832-0, 2777-1, CBCA, 05864-7 #### [facility] ([id number]) [address], [address] [place], [place] [address]KJW morphology finding Nom (Bld)NORMALNormalProMedica Ashraf HospitalComment on above:Performed By: #### PINR, 81269-1, CMP, 15069-9, 2777-1, CBCA, 43409-5 #### [facility] ([id number]) [address], [address] [place], [place] [address]IQE ZAGVCOWJYT14.0 %NormalProMedica Ashraf HospitalComment on above:Performed By: #### PINR, 45771-6, CMP, 57384-3, 2777-1, CBCA, 15606-2 #### [facility] ([id number]) [address], [address] [place] [address]MDX (Bld) [#/Vol]22.0 10*3/uLHigh4.0-11.0SCCI Hospital LimaComment on above:Performed By: #### PINR, 25587-8, CMP, 26167-6, 2777-1, CBCA, 48685-8 #### [facility] ([id number]) [address] [facility], [address] [place], [place] [address]HPE auto differentialon 77-85-6542Jjld form neutrophils/100 WBC (Bld)3 %[facility] SystemEosinophils (Bld) [#/Vol]0.2 10*3/uLMount Carmel Health SystemEosinophils/100 WBC (Bld)1 %[facility] SystemErythrocyte distribution width (RBC) [Ratio]15.3 %High11.5 - 15.0 %[facility] Hematocrit (Bld) [Volume fraction]34.2 %Low35 - 47 %[facility] Hemoglobin (Bld) [Mass/Vol]11.5 g/dLLow11.7 - 15.5 g/dLMount Carmel Health System Interpretation and review of laboratory resultsAbnormOhioHealth Pickerington [facility] Lymphocytes (Bld) [#/Vol]2.4 10*3/[facility] HospitalLymphocytes/100 WBC (Bld)11 %[facility] SystemMCH (RBC) [Entitic mass]29.8 pg27 - 34 pg [facility] Health SystemMCHC (RBC) [Mass/Vol]33.7 g/dL32 - 36 g/dLMount Carmel Health SystemMCV (RBC) [Entitic vol]89 fL80 - 100 [facility] Monocytes (Bld) [#/Vol]0.9 10*3/[facility] HospitalMonocytes/100 WBC (Bld) 4 %[facility] Health SystemNeutrophils (Bld) [#/Vol]18.5 10*3/uLReston Hospital CenterPlatelet mean volume (Bld) [Entitic vol]8.6 fL7 - 12 [facility] WestPlatelets (Bld) [#/Vol]103 10*3/uLMemorial Hospital Polymorphonuclear cells/100 WBC (Bld)NORMALMount Carmel Health SystemRBC (Bld) [#/Vol]3.87 10*6/uLNovant Health Forsyth Medical Centeregmented neutrophils/100 WBC (Bld)81 %[facility] SystemWBC corrected for nucl RBC Auto (Bld) [#/Vol]22High [facility] Health NetworkCOMPREHENSIVE METABOLIC PANELon 30-38-0136Aucmsfz [Mass/Vol]2.8 g/dLLow3.2-5.3PTriHealth McCullough-Hyde Memorial HospitalComment on above:Performed By: #### PINR, 34578-1, CMP, 16377-7, 2777-1, CBCA, 84317-1 #### [facility] ([id number]) [address], [address] [place], [place] [address]KLX [Catalytic activity/Vol]200 U/SDvij72-556XjcGqybutSCCI Hospital LimaComment on above:Performed By: #### PINR, 99951-7, CMP, 53123-9, 2777-1, CBCA, 23130-2 #### [facility] ([id number]) [address], [address] [place], [place] [address]OZF [Catalytic activity/Vol]53 U/LHigh0-31PTriHealth McCullough-Hyde Memorial HospitalComment on above:Performed By: #### PINR, 31557-2, CMP, 97185-6, 2777-1, CBCA, 94680-3 #### [facility] ([id number]) [address], [address] [place], [place] [address]Osplc gap [Moles/Vol]9 mmol/LNormal5-15[facility] Hospital Comment on above:Performed By: #### PINR, 39011-0, CMP, 39000-5, 2777-1, CBCA, 01808-7 #### [facility] ([id number]) [address], [address] [place], [place] [address]IPM [Catalytic activity/Vol]56 U/LHigh0-41Pro[facility]ica [facility] HospitalComment on above:Performed By: #### PINR, 53702-0, CMP, 00659-3, 2777-1, CBCA, 15372-0 #### [facility] ([id number]) [address], [address] [place], [place] [address]Cnaccygqk [Mass/Vol]0.6 mg/dLNormal0.3-1.2ProMedred bay hospital Ashraf HospitalComment on above:Performed By: #### PINR, 88147-5, CMP, 16103-0, 2777-1, CBCA, 22334-1 #### [facility] ([id number]) [address], [address] [place], [place] [address]Zooxeas [Mass/Vol]8.6 mg/dLNormal8.5-10.5PWillis-Knighton Medical Center Ashraf HospitalComment on above:Performed By: #### PINR, 22225-5, CMP, 55000-2, 2777-1, CBCA, 91162-7 #### [facility] ([id number]) [address], [address] [place], [place] [address]Xngydfnn [Moles/Vol]107 mmol/UPcibfo42-469WzuIiribo Ashraf HospitalComment on above:Performed By: #### PINR, 61350-0, CMP, 54620-5, 2777-1, CBCA, 93252-1 #### [facility] ([id number]) [address], [address] [place], [place] [address]TI6 [Moles/Vol]25 mmol/XDmymmm76-46RtgCkjeec [facility] Comment on above:Performed By: #### PINR, 91732-7, CMP, 90737-4, 2777-1, CBCA, 53526-7 #### [facility] ([id number]) [address], [address] [place], [place] [address]Bwfvansvrx [Mass/Vol]0.95 mg/dLNormal0.40-1.00Pro[facility]ica Ashraf HospitalComment on above:Result Comment: METHOD TRACEABLE TO IDMS STANDARD Performed By: #### PINR, 66004-6, CMP, 17819-7, 2777-1, CBCA, 27517-9 #### [facility] ([id number]) [address], [address] [place], [place] [address]DPB/1.73 sq M.predicted among non-blacks MDRD (S/P/Bld) [Vol rate/Area]66 mL/min/{1.73_m2}Normal>59ProSamaritan HospitalComment on above: Result Comment: Reported eGFR is based on the CKD-EPI 2020 equation that does not use a race coefficient.Performed By: #### BERNARD, 54327-4, CMP, 27239-2, 2776- 1, CBCA, 86565-3 #### [facility] ([id number]) [address], [address] [place], [place] [address]Mcvfryv [Mass/Vol]80 mg/lKLjciye09-27LogUnnairSCCI Hospital [place]ima Comment on above:Performed By: #### BERNARD, 39171-8, CMP, 79985-6, 2776-1, CBCA, 78280-3 #### [facility] ([id number]) [address], [address] [place], [place] [address]Yewumbzgm [Moles/Vol]3.7 mmol/LNormal3.5-5.0ProSamaritan HospitalComment on above:Performed By: #### PINR, 44130-0, CMP, 29518-2, 7-1, CBCA, 74491-4 #### [facility] ([id number]) [address], [address] [place], [place] [address]Uvdurql [Mass/Vol]5.8 g/dLLow6.0-8.0[facility] [place] Comment on above:Performed By: #### PINR, 89713-0, CMP, 83827-4, 2777-1, CBCA, 43695-9 #### [facility] ([id number]) [address], [address] [place], [place] [address]Neuoff [Moles/Vol]141 mmol/YQggzye559-403AcaMxflok [place] HospitalComment on above:Performed By: #### PINR, 66298-7, CMP, 12599-7, 2777-1, CBCA, 28375-4 #### [facility] ([id number]) [address], [address] [place], [place] [address]Vmoj nitrogen [Mass/Vol]33 mg/dLHigh5-27ProSamaritan HospitalComment on above:Performed By: #### PINR, 99737-3, CMP, 86948-5, 2777-1, CBCA, 03324-1 #### [facility] ([id number]) [address], [address] [place], [place] [address]Hwkqzcitzkcjh metabolic panelon 33-16-5234Ksklomz [Mass/Vol]2.8 g/dLLow3.2 - 5.3 g/dLProMedica Health SystemALP [Catalytic activity/Vol]200 U/L High39 - 130 U/LProMedica Health SystemALT No additional P-5'-P [Catalytic activity/Vol]53 U/LHigh0 - 31 U/LProMedica Health SystemAnion gap [Moles/Vol]9 mmol/L5 - 15 mmol/LProMedica Health SystemAST [Catalytic activity/Vol]56 U/LHigh 0 - 41 U/LProMedica Health SystemBilirubin [Mass/Vol]0.6 mg/dL0.3 - 1.2 mg/dL [facility] SystemCalcium [Mass/Vol]8.6 mg/dL8.5 - 10.5 mg/dLProMedica Health SystemChloride [Moles/Vol]107 mmol/L98 - 109 mmol/LProMedica Health SystemCO2 [Moles/Vol]25 mmol/L22 - 32 mmol/LProMedica Health SystemCreatinine [Mass/Vol]0.95 mg/dL0.40 - 1.00 mg/dLProOur Lady Of Mercy Hospitalca Health SystemComment on above: METHOD TRACEABLE TO IDOK STANDARDeGFR (CKD-EPI)non-race rylntfiri14- PINF [facility] SystemComment on above: Reported eGFR is based on the CKD-EPI 2020 equation that does not use a race coefficient. Glucose [Mass/Vol]80 mg/dL65 - 99 mg/dLMount Carmel Health SystemInterpretation and review of laboratory resultsAbnormalProUc HealthPotassium [Moles/Vol]3.7 mmol/L3.5 - 5.0 mmol/LPrSCL Health Community Hospital - Southwest Health SystemProtein [Mass/Vol] 5.8 g/dLLow6.0 - 8.0 g/dLProMary Rutan Hospital SystemSodium [Moles/Vol]141 mmol/L134 - 146 mmol/[facility] Health SystemUrea nitrogen [Mass/Vol]33 mg/dLHigh5 - 27 mg/dLMount Carmel Health SystemIonized magnesiumon 50-64-7611Vcolffbhe Ionized ISE (Bld) [Moles/Vol]0.61 mmol/L0.45 - 0.74 mmol/[facility] SystemComment on above:NEW REFERENCE RANGEMAGNESIUMon 57-05-8098Wzxnvusyk [Mass/Vol]1.9 mg/dL Normal1.8-2.6SCCI Hospital LimaComment on above:Performed By: #### BERNARD, 10404-0, ELROY, , 2776-, CBCA, 47945-0 #### [facility] ([id number]) [address] [facility] [facility] [address] [address], [address] [place], [place] [address]Vtpjntlismz 94-96-7897Vzjcnqhuf [Mass/Vol]1.9 mg/dL1.8 - 2.6 mg/dLMount Carmel Health SystemMagnesium Ionized ISE (Bld) [Moles/Vol]on 05-24-2024 [facility] SystemMagnesium [Moles/Vol]0.61 mmol/LNormal0.45-0.74SCCI Hospital LimaComment on above:Result Comment: NEW REFERENCE RANGEPerformed By: #### BERNARD, 26306-2, ELROY, 85353-0, 2776-1, CBCA, 93545-0 #### [facility] ([id number]) [address], [address] [place] [address]Ud Panel Informationon 52-46-1118LuiBwdgxi Health System PHOSPHORUSon 29-07-3920Hybducxcy [Mass/Vol]3.1 mg/dLNormal2.4-4.9ProSamaritan HospitalComment on above:Performed By: #### BERNARD, 93902-0, CMP, , 2776-07, CBCA, 50233-3 #### [facility] ([id number]) [address], [address] [place] [address]FLGNNFZQJvb 13-43-0858Qkemtwczl [Moles/Vol]3.9 mmol/LNormal 3.5-5.0ProSamaritan HospitalComment on above:Performed By: #### BERNARD, 82735- 9, CMP, , 2776-07, CBCA, 03528-1 #### [facility] ([id number]) [address], [address] [place], [place] [address]Hujaqxnoqlfb 13-20-0935Wvufyzlxj [Mass/Vol]3.1 mg/dL2.4 - 4.9 mg/dLProMedind Health SystemPotassiumon 28-07-4574Uqarhsojb [Moles/Vol]3.9 mmol/L3.5 - 5.0 mmol/LProMedica Health SystemPotassium [Moles/Vol]on 05-24-2024 [facility] SystemBLOOD CULTUREon 89-02-9888Qbnrobwf identified Aer cx Nom (Bld)SPECIMEN NOTES SUBOPTIMAL VOLUME OF BLOOD COLLECTED, RESULTS MAY BE AFFECTED. CULTURE RESULTS NO GROWTH 5 DAYSNormalProSamaritan HospitalComment on above:Performed By: #### KATLYNR, 71200-3, CMP, 60822-6, 2776-1, CBCA, 67722-2 #### [facility] ([id number]) [address], [address] [place], [place] [address]EQI AND AUTO DIFFon 56-32-4136Czjy form neutrophils/100 WBC (Bld)16.0 %NormalProOur Lady Of Mercy Hospitalca [place]ostoria City HospitalComment on above:Performed By: #### PINR, 72969-0, CMP, 42378-7, 2777-1, CBCA, 84284-7 #### [facility] ([id number]) [address], [address] [place], [place] [address]Qnbqbhxsdys distribution width (RBC) [Ratio]15.2 %High11.5-15.0 [facility]ostoria City HospitalComment on above:Performed By: #### PINR, 41377-4, CMP, 60543-3, 2777-1, CBCA, 32166-7 #### [facility] ([id number]) [address], [address] [place], [place] [address]Wldahzrstd (Bld) [Volume fraction]34.6 %Yep59-18OxrQypbkd Cleveland HospitalComment on above:Performed By: #### PINR, 90180-1, CMP, 97669-3, 2777-1, CBCA, 51263-4 #### [facility] ([id number]) [address], [address] [place], [place] [address]Ovwihxiicz (Bld) [Mass/Vol]11.7 g/rBHkdpua76.7-15.5ProMedElyria Memorial Hospital HospitalComment on above:Performed By: #### PINR, 10549-8, CMP, 04375-9, 2777-1, CBCA, 03645-3 #### [facility] ([id number]) [address], [address] [place], [place] [address]Lzmpvgkskbo (Bld) [#/Vol]1.6 10*3/uLNormal1.0-3.5ProMedRiverside Methodist HospitalComment on above:Performed By: #### PINR, 43726-9, CMP, 96883-4, 2777-1, CBCA, 53930-9 #### [facility] ([id number]) [address], [address] [place], [place] [address]Hjmvefocejl/100 WBC (Bld)4.0 %NormalSCCI Hospital [place] Comment on above:Performed By: #### PINR, 46799-8, CMP, 60916-8, 2777-1, CBCA, 39544-4 #### [facility] ([id number]) [address], [address] [place], [place] [address]QJF (RBC) [Entitic mass]29.7 wgWwlypp18-26SocRkzeyt [place] HospitalComment on above:Performed By: #### PINR, 20975-2, CMP, 04625-0, 2777-1, CBCA, 47022-9 #### [facility] ([id number]) [address], [address] [place], [place] [address]ANZW (RBC) [Mass/Vol]33.7 g/gEYsdlyb50-39HifVscbrj [place] HospitalComment on above:Performed By: #### PINR, 40103-2, CMP, 29580-8, 2777-1, CBCA, 99242-3 #### [facility] ([id number]) [address], [address] [place], [place] [address]FWO (RBC) [Entitic vol]88 nNBslspt35-702NdrHqhwtx [place] HospitalComment on above:Performed By: #### PINR, 24145-6, CMP, 96377-7, 2777-1, CBCA, 95111-3 #### [facility] ([id number]) [address], [address] [place], [place] [address]Vfkfhnlzcsixhs/100 WBC (Bld)1.0 %[facility] Comment on above:Performed By: #### PINR, 42533-8, CMP, 98864-0, 2777-1, CBCA, 48308-5 #### [facility] ([id number]) [address], [address] [place], [place] [address]Wufaifhiy (Bld) [#/Vol]0.4 10*3/uLNormal0-0.9ProSamaritan HospitalComment on above:Performed By: #### PINR, 26639-4, CMP, 67021-8, 2777-1, CBCA, 74896-5 #### [facility] ([id number]) [address], [address] [place], [place] [address]Cjovruazi/100 WBC (Bld)1.0 %NormalSCCI Hospital [place] Comment on above:Performed By: #### PINR, 99285-8, CMP, 18563-1, 2777-1, CBCA, 76071-5 #### [facility] ([id number]) [address], [address] [place], [place] [address]UDUJJGZFDN VACUOLES1+AbnormalNONEProMedica [facility] Comment on above:Performed By: #### PINR, 58928-9, CMP, 97195-0, 2777-1, CBCA, 37286-4 #### [facility] ([id number]) [address], [address] [place], [place] [address]Nbftofpqrdx (Bld) [#/Vol]36.6 10*3/uLHigh1.5-6.6ProSamaritan HospitalComment on above:Performed By: #### PINR, 16596-9, CMP, 86042-1, 2777- 1, CBCA, 93234-7 #### [facility] ([id number]) [address] [place], [place] [address]Pqxizpbi mean volume (Bld) [Entitic vol]8.8 fLNormal7-12 [facility] City HospitalComment on above:Performed By: #### PINR, 49316-2, CMP, 85789-0, 2777-1, CBCA, 14176-8 #### [facility] ([id number]) [address], [address] [place], [place] [address]Cdoizpcbl (Bld) [#/Vol]91 10*3/fIOru414-001RpxYiyplr Ashraf HospitalComment on above:Performed By: #### PINR, 48306-0, CMP, 26798-8, 2777-1, CBCA, 88567-5 #### [facility] ([id number]) [address], [address] [place], [place] [address]XMG COUNT3.92 X10E12/LNormal3.80-5.20[facility] Comment on above:Performed By: #### PINR, 21024-9, CMP, 32954-5, 2777-1, CBCA, 44636-3 #### [facility] ([id number]) [address], [address] [place], [place] [address]QQL morphology finding Nom (Bld)NORMALNormalProMedica Ashraf HospitalComment on above:Performed By: #### PINR, 39109-5, CMP, 03726-4, 2777-1, CBCA, 80838-1 #### [facility] ([id number]) [address], [address] [place], [place] [address]CKU HTLBGJUWZM47.0 %NormalProMedica Ashraf HospitalComment on above:Performed By: #### PINR, 74338-4, CMP, 54374-0, 2777-1, CBCA, 99192-9 #### [facility] ([id number]) [address], [address] [place], [place] [address]HUV (Bld) [#/Vol]39.0 10*3/uLHigh4.0-11.0ProMedica Ashraf HospitalComment on above:Performed By: #### PINR, 11826-4, CMP, 37701-8, 2777-1, CBCA, 77556-0 #### [facility] ([id number]) [address], [address] [place], [place] [address]PKC auto differentialon 12-39-1038Akhp form neutrophils/100 WBC (Bld)16 %[facility] SystemErythrocyte distribution width (RBC) [Ratio]15.2 %High11.5 - 15.0 %[facility] SystemHematocrit (Bld) [Volume fraction]34.6 %Low35 - 47 %ProMFairmont Hospital and Clinic SystemHemoglobin (Bld) [Mass/Vol]11.7 g/dL11.7 - 15.5 g/dLKettering Health Hamilton SystemInterpretation and review of laboratory results AbnormalMount Carmel Health SystemLeukocyte toxic vacuoles LM Ql (Bld)1+Abnormal NONE^NONEProMary Rutan Hospital SystemLymphocytes (Bld) [#/Vol]1.6 10*3/uLKettering Health Hamilton SystemLymphocytes/100 WBC (Bld)4 %[facility] SystemMCH (RBC) [Entitic mass]29.7 pg27 - 34 pgPSelect Medical Specialty Hospital - Cleveland-FairhillMCHC (RBC) [Mass/Vol]33.7 g/dL32 - 36 g/dLMount Carmel Health SystemMCV (RBC) [Entitic vol]88 fL80 - 100 fL [facility] SystemMetamyelocytes/100 WBC (Bld)1 %[facility] Monocytes (Bld) [#/Vol]0.4 10*3/uLKettering Health Hamilton SystemMonocytes/100 WBC (Bld) 1 %[facility] SystemNeutrophils (Bld) [#/Vol]36.6 10*3/uLHighKettering Health Hamilton SystemPlatelet mean volume (Bld) [Entitic vol]8.8 fL7 - 12 fLPMercy Health Anderson Hospital SystemPlatelets (Bld) [#/Vol]91 10*3/uLLowKettering Health Hamilton System Polymorphonuclear cells/100 WBC (Bld)NORMALProUc HealthRBC (Bld) [#/Vol]3.92 10*6/uLProMary Rutan Hospital SystemSegmented neutrophils/100 WBC (Bld)78 %[facility] SystemWBC corrected for nucl RBC Auto (Bld) [#/Vol]39High [facility] SystemMount Carmel Health SystemCOMPREHENSIVE METABOLIC PANELon 12-00-7673Uiwtedi [Mass/Vol]3.1 g/dLLow3.2-5.3ProMedElyria Memorial Hospital HospitalComment on above:Performed By: #### PINR, 44639-1, CMP, 17197-2, 2777-1, CBCA, 56659-8 #### [facility] ([id number]) [address], [address] [place] [address]RIM [Catalytic activity/Vol]256 U/ZTueb69-166FdkPfqiuf [place] HospitalComment on above:Performed By: #### PINR, 63901-4, CMP, 59301-4, 2777-1, CBCA, 10930-2 #### [facility] ([id number]) [address], [address] [place] [address]SCM [Catalytic activity/Vol]65 U/LHigh0-31ProMedElyria Memorial Hospital HospitalComment on above:Performed By: #### PINR, 12048-2, CMP, 60282-4, 2777-1, CBCA, 56253-6 #### [facility] ([id number]) [address], [address] [place] [address]Cdlre gap [Moles/Vol]14 mmol/LNormal5-15ProAkron Children'S Hospital HospitalComment on above:Performed By: #### PINR, 25695-0, CMP, 99501-3, 2777-1, CBCA, 87507-9 #### [facility] ([id number]) [address], [address] [place], [place] [address]IER [Catalytic activity/Vol]48 U/LHigh0-41ProAkron Children'S Hospital HospitalComment on above:Performed By: #### PINR, 16938-7, CMP, 68098-6, 2777-1, CBCA, 67798-9 #### [facility] ([id number]) [address], [address] [place], [place] [address]Orlpawduo [Mass/Vol]0.6 mg/dLNormal0.3-1.2ProMedica Ashraf HospitalComment on above:Performed By: #### PINR, 70166-1, CMP, 12676-7, 2777-1, CBCA, 28768-6 #### [facility] ([id number]) [address], [address] [place], [place] [address]Hvoympv [Mass/Vol]8.5 mg/dLNormal8.5-10.5ProMedica Ashraf HospitalComment on above:Performed By: #### PINR, 91904-4, CMP, 25097-7, 2777-1, CBCA, 79817-4 #### [facility] ([id number]) [address], [address] [place], [place] [address]Dnsystzi [Moles/Vol]103 mmol/XWlxbps73-401CjjKxdvdc Ashraf HospitalComment on above:Performed By: #### PINR, 75656-2, CMP, 86079-0, 2777-1, CBCA, 48563-9 #### [facility] ([id number]) [address], [address] [place], [place] [address]JL9 [Moles/Vol]20 mmol/OYcu19-38TnuIkvizh Ashraf HospitalComment on above:Performed By: #### PINR, 23302-5, CMP, 62100-5, 2777-1, CBCA, 01683-0 #### [facility] ([id number]) [address], [address] [place], [place] [address]Mmkfwyhgoj [Mass/Vol]1.47 mg/dLHigh0.40-1.00ProMedica Ashraf HospitalComment on above:Result Comment: METHOD TRACEABLE TO IDMS STANDARD Performed By: #### PINR, 31088-0, CMP, 75821-7, 2777-1, CBCA, 11790-3 #### [facility] ([id number]) [address] [place], [place] [address]XYR/1.73 sq M.predicted among non-blacks MDRD (S/P/Bld) [Vol rate/Area]39 mL/min/{1.73_m2}Low>59ProSamaritan HospitalComment on above: Result Comment: Reported eGFR is based on the CKD-EPI 2020 equation that does not use a race coefficient.Performed By: #### BERNARD, 68812-5, CMP, 51773-0, 2776- , CBCA, 59677-1 #### [facility] ([id number]) [address] [address]Mymrrsp [Mass/Vol]93 mg/lAWodybl08-75PwfVebidySCCI Hospital Lima Comment on above:Performed By: #### BERNARD, 58806-1, CMP, 00701-2, 2776-, CBCA, 14134-3 #### [facility] ([id number]) [address] [address]Hcdllkagz [Moles/Vol]3.7 mmol/LNormal3.5-5.0ProSamaritan HospitalComment on above:Performed By: #### BERNARD, 89797-9, CMP, 32420-4, 2776-, CBCA, 05590-7 #### [facility] ([id number]) [address] [address] [place], [place] [address]Cmmscgl [Mass/Vol]6.5 g/dLNormal6.0-8.0[facility] Comment on above:Performed By: #### BERNARD, 86993-2, CMP, 51138-2, 2776-, CBCA, 93063-6 #### [facility] ([id number]) [address] [address] [place], [place] [address]Jqgzms [Moles/Vol]137 mmol/XJkiqnq528-913TnjXltjov Toledo HospitalComment on above:Performed By: #### BERNARD, 65086-3, CMP, 85675-2, 2777-1, CBCA, 87180-9 #### [facility] ([id number]) [address] [place], [place] [address]Ekvd nitrogen [Mass/Vol]41 mg/dLHigh5-27ProSamaritan HospitalComment on above:Performed By: #### PINR, 36340-6, CMP, 67312-8, 2777-1, CBCA, 85176-1 #### [facility] ([id number]) [address] [facility], [address] [place], [place] [address]Upkjvhowbpsgo metabolic panelon 00-08-9900Vqcpkwe [Mass/Vol]3.1 g/dLLow3.2 - 5.3 g/dLProOur Lady Of Mercy Hospitalca Health SystemALP [Catalytic activity/Vol]256 U/L High39 - 130 U/[facility] CenteroMedica Health SystemALT No additional P-5'-P [Catalytic activity/Vol]65 U/LHigh0 - 31 U/[facility] CenteroMedica Health SystemAnion gap [Moles/Vol]14 mmol/L5 - 15 mmol/LProMedica Health SystemAST [Catalytic activity/Vol]48 U/LHigh 0 - 41 U/LProMedica Health SystemBilirubin [Mass/Vol]0.6 mg/dL0.3 - 1.2 mg/dL ProMedica Health SystemCalcium [Mass/Vol]8.5 mg/dL8.5 - 10.5 mg/dLProOur Lady Of Mercy Hospitalca Health SystemChloride [Moles/Vol]103 mmol/L98 - 109 mmol/LProMedica Health SystemCO2 [Moles/Vol]20 mmol/LLow22 - 32 mmol/[facility] Hospitalica Health SystemCreatinine [Mass/Vol]1.47 mg/dLHigh0.40 - 1.00 mg/dLMount Carmel Health SystemComment on above:METHOD TRACEABLE TO IDOK STANDARDeGFR (CKD-EPI)non-race mhrezrype45Xql- PINGrand Lake Joint Township District Memorial Hospital SystemComment on above: Reported eGFR is based on the CKD-EPI 2020 equation that does not use a race coefficient. Glucose [Mass/Vol]93 mg/dL65 - 99 mg/dLKettering Health Hamilton SystemPotassium [Moles/Vol]3.7 mmol/L3.5 - 5.0 mmol/LProMedica Health SystemProtein [Mass/Vol] 6.5 g/dL6.0 - 8.0 g/dLProDale Medical Center Health SystemSodium [Moles/Vol]137 mmol/L134 - 146 mmol/LProMedica Health SystemUrea nitrogen [Mass/Vol]41 mg/dLHigh5 - 27 mg/dLProMary Rutan Hospital SystemMAGNESIUMon 66-95-8912Iezgbkchd [Mass/Vol]2.0 mg/dL Normal1.8-2.6ProSamaritan HospitalComment on above:Performed By: #### BERNARD, 60822-3, ELROY, 79713-3, 2776-1, CBCA, 82909-4 #### [facility] ([id number]) [address] [place], [place] [address]Oobmmqwktlw 40-56-2796Jizjankyz [Mass/Vol]2 mg/dL1.8 - 2.6 mg/dL [facility] SystemNo Panel Informationon 21-02-3753Lgwjzgqixzdhnl and review of laboratory resultsAbnormalProUc HealthProMary Rutan Hospital SystemPHOSPHORUSon 26-67-7243Wvicnqhse [Mass/Vol]2.4 mg/dLNormal2.4-4.9ProSamaritan HospitalComment on above:Performed By: #### BERNARD, 60409-3, CMP, 72294-0, 2776-1, CBCA, 59130-9 #### [facility] ([id number]) [address] [facility], [address] [place], [place] [address]YDBOPTGOIli 14-48-6306Srqbjvmbd [Moles/Vol]3.7 mmol/LNormal 3.5-5.0ProSamaritan HospitalComment on above:Performed By: #### BERNARD, 86029- 9, CMP, 71062-6, 7-1, CBCA, 98073-6 #### [facility] ([id number]) [address] [facility], [address] [place], [place] [address]Gvwaooema [Moles/Vol]3.5 mmol/LNormal3.5-5.0SCCI Hospital LimaComment on above:Performed By: #### BERNARD, 44271-6, CMP, 01658-0, 2777-1, CBCA, 89376-6 #### [facility] ([id number]) [address], [address] [place], [place] [address]Ukbuwyzrwupw 14-72-6606Cxqpykwah [Mass/Vol]2.4 mg/dL2.4 - 4.9 mg/dLKettering Health Hamilton SystemPotassiumon 69-70-1101Lwgoikhjy [Moles/Vol]3.7 mmol/L3.5 - 5.0 mmol/LPrOhioHealth Dublin Methodist Hospital SystemPotassium [Moles/Vol]3.5 mmol/L3.5 - 5.0 mmol/LPrOhioHealth Dublin Methodist Hospital SystemPotassium [Moles/Vol]on 46-32-4467YkfFvzwjkPhoenixville HospitalProcalcitoninon 73-36-2951Hgupanocrsgml IA [Mass/Vol]242.46 ng/mLHighNINF - 0.05 ng/mLMount Carmel Health SystemComment on above:NOTE <0.50 ng/mL - Low risk of severe sepsis and/or septic shock. <2.00 ng/mL - Recommend retesting within 6-24 hours. >2.00 ng/mL - High risk of sepsis and/or septic shock. Procalcitonin IA [Mass/Vol]on 86-26-3265FNUYMWJDCVHSB076.46 ng/mLHigh<0.05 SCCI Hospital LimaComment on above:Result Comment: NOTE <0.50 ng/mL - Low risk of severe sepsis and/or septic shock. <2.00 ng/mL - Recommend retesting within 6-24 hours. >2.00 ng/mL - High risk of sepsis and/or septic shock.Performed By: #### PINR, 44264-5, CMP, 09263-9, 2777-1, CBCA, 07075-3 #### [facility] ([id number]) [address], [address] [place], [place] [address]Mliuvkgg identified Cx Nom (U)on 42-40-9909Kugmqvj comment (Unsp spec) [Interp]<10,000 ORGANISMS/ML NORMAL URO GENITAL FLORAProMedica Health SystemProMedica [facility] General SystemCBC AND AUTO DIFFon 73-67-1585Ruws form neutrophils/100 WBC (Bld)35.0 %NormalProMedica Ashraf HospitalComment on above: Performed By: #### CBCA, CMP, 28914-1, 57886-2, 2777-1 ####[facility] ([id number])[address], [address] [place] [address]UUEKK BODIES1+ AbnormalNONEProMedica Ashraf HospitalComment on above:Performed By: #### CBCA, CMP, 41661-1, 09637-1, 2777-1 ####[facility] ([id number])[address], [address] [place] [address]Qoxroeyokjh/100 WBC (Bld)4.0 %Normal ProMedica Ashraf HospitalComment on above:Performed By: #### CBCA, CMP, 98581-7, 36926-3, 277-1 ####[facility] ([id number])[address], [address] [place] [address]Nxmfnynvwyzits/100 WBC (Bld)5.0 %NormalProMedica Ashraf HospitalComment on above:Performed By: #### CBCA, CMP, 73899-3, 43437-8, 2777-1 ####[facility] ([id number])[address], [address] [place] [address]Ybmczigig/100 WBC (Bld)2.0 %NormalProMedica Ashraf HospitalComment on above:Performed By: #### CBCA, CMP, 17897-2, 37966-4, 2777-1 ####[facility] ([id number])[address], [address], [place] [address]BTOVUUXGQ2.0 %NormalProOur Lady Of Mercy Hospitalca Cleveland HospitalComment on above:Performed By: #### CBCA, CMP, 39848-2, 12342-7, 2777-1 ####[facility] ([id number])[address], [address] [place] [address]AWP COUNT3.55 X10E12/LLow3.80-5.20ProOur Lady Of Mercy Hospitalca Cleveland HospitalComment on above:Performed By: #### CBCA, CMP, 21823-6, 05946-3, 2777- ####[facility] ([id number])[address], [address] [place] [address]HAG PQBPXIMSWY90.0 %NormalProOur Lady Of Mercy Hospitalca Cleveland HospitalComment on above:Performed By: #### CBCAndrew, CMP, 93338-4, 06193-5, 277- ####[facility] ([id number])[address], [address] [place] [address]DQI (Bld) [#/Vol]28.1 10*3/uLHigh4.0-11.0ProAkron Children'S Hospital HospitalComment on above: Performed By: #### CBCAndrew, CMP, 47089-8, 75875-3, 2777-1 ####[facility] ([id number])[address] [address] [place] [address]Newuogltntd distribution width (RBC) [Ratio]14.9 %Hbgrtd15.5-15.0K[facility] System Comment on above:Performed By: #### CBCA, CMP, 71147-1, 23887-9, 2777- ####[facility] ([id number])[address] [address] [place] [address]Afspbjgfzc (Bld) [Volume fraction]31.3 %Nfb54-29NfoZhdvwv Health System Comment on above:Performed By: #### CBCA, CMP, 20035-2, 53375-8, 277-1 ####[facility] ([id number])[address], [address] [place] [address]Bgzukgejbb (Bld) [Mass/Vol]10.6 g/dLLow11.7-15.[address] [place] [address] Comment on above:Performed By: #### CBCA, CMP, 16203-2, 07029-3, 277-1 ####[facility] ([id number])[address], [address] [place] [address]Jpaenrjwhaq (Bld) [#/Vol]1.1 10*3/uLNormal1.0-3.[address] [place] [address] Comment on above:Performed By: #### CBCA, CMP, 95388-3, 55803-8, 2776- ####[facility] ([id number])[address], [address] [place] [address]HKO (RBC) [Entitic mass]29.8 pcLqblcy68-66QagSuqzyb Health SystemComment on above:Performed By: #### CBCA, CMP, 40077-3, 36916-6, 277- ####[facility] ([id number])[address], [address] [place] [address]SLNJ (RBC) [Mass/Vol]33.7 g/pBCsnrze02-64OilGydptm Health SystemComment on above: Performed By: #### CBCA, CMP, 09123-7, 72635-1, 277- ####[facility] ([id number])[address], [address] [place] [address]WUT (RBC) [Entitic vol]88 bSOyfafk70-154XkpDzzwjy Health SystemComment on above:Performed By: #### CBCA, CMP, 79015-2, 80107-5, 277-1 ####[facility] ([id number])[address], [address] [place] [address]Ftfzbupyy (Bld) [#/Vol]0.6 10*3/uLNormal0-0.9[facility] Health SystemComment on above:Performed By: #### CBCA, CMP, 80499-2, 99483-7, 2777-1 ####[facility] ([id number])[address], [address] [place] [address]Xsnwffigspb (Bld) [#/Vol] 24.2 10*3/uLHigh1.5-6.6ProDale Medical Center Health SystemComment on above:Performed By: #### CBCA, CMP, 10653-0, 93528-2, 2777-1 ####[facility] ([id number])[address], [address] [place] [address]Flitmreu mean volume (Bld) [Entitic vol]8.3 fLNormal7-12PMercy Health Anderson Hospital SystemComment on above:Performed By: #### CBCA, CMP, 37111-5, 89245-3, 2777-1 ####[facility] ([id number])[address], [address] [place] [address]Omncqrvvw (Bld) [#/Vol]60 10*3/kVTyq516-165SpjLxkhuz Health SystemComment on above:Performed By: #### CBCA, CMP, 60638-1, 39610-5, 2777-1 ####[facility] ([id number])[address] [address] [place] [address]GNC auto differentialon 83-62-1468Pesj form neutrophils/100 WBC (Bld)35 %ProMedica Health SystemDohle body LM Ql (Bld)1+AbnormalNONE^NONEProMedica Health SystemInterpretation and review of laboratory resultsAbnormalProMedind Health SystemLymphocytes/100 WBC (Bld)4 %[facility] Health SystemMetamyelocytes/100 WBC (Bld)5 %[facility] Health SystemMonocytes/100 WBC (Bld)2 %[facility] SystemMyelocytes/100 WBC (Bld)3 %[facility] SystemRBC (Bld) [#/Vol]3.55 10*6/uLLowMount Carmel Health System Segmented neutrophils/100 WBC (Bld)51 %[facility] SystemWBC corrected for nucl RBC Auto (Bld) [#/Vol]28.1HighLehigh Valley Health NetworkCOMPREHENSIVE METABOLIC PANELon 02-31-0990JWM [Catalytic activity/Vol]79 U/LHigh0-31PTriHealth McCullough-Hyde Memorial HospitalComment on above:Performed By: #### ELROY EUBANKS, 69213-8, 76161-5, 2777-1 ####[facility] ([id number])[address], [address] [address]UIW/1.73 sq M.predicted among non-blacks MDRD (S/P/Bld) [Vol rate/Area]37 mL/min/{1.73_m2}Low>59[facility] Comment on above:Result Comment: Reported eGFR is based on the CKD-EPI 2020 equation that does not use a race coefficient.Performed By: #### ELROY EUBANKS, 88937-3, 27421-9, 2777- 1 ####[facility] ([id number])[address] [address]Tkqauqj [Mass/Vol]2.9 g/dLLow3.2-5.3PSelect Medical Specialty Hospital - Cleveland-FairhillComment on above:Performed By: #### ELROY EUBANKS, 47785-9, 34837-5, 2777-1 ####[facility] ([id number])[address] [address]FLU [Catalytic activity/Vol]202 U/LMgse23-839ZmgRlovccMount Carmel Health SystemComment on above:Performed By: #### ELROY EUBANKS, 72406-8, 06978-0, 2777-1 ####[facility] ([id number])[address], [address], [place] [address]Exvta gap [Moles/Vol]15 mmol/LNormal5-15K[facility]tering [facility] Hamilton SystemComment on above:Performed By: #### ELROY EUBANKS, 69697-6, 67814-7, 2777-1 ####[facility] ([id number])[address], [address], [place] [address]KQN [Catalytic activity/Vol]90 U/LHigh0-41ProMary Rutan Hospital SystemComment on above:Performed By: #### ELROY EUBANKS, 24696-9, 53104-6, 2777- ####[facility] ([id number])[address], [address], [place] [address]Mpefmpmnz [Mass/Vol]1.1 mg/dLNormal0.3-1.2PMercy Health Anderson Hospital SystemComment on above:Performed By: #### ELROY EUBANKS, 08125-5, 13886-9, 2777 ####[facility] ([id number])[address] [address], [place] [address]Ihnlrnk [Mass/Vol]7.8 mg/dL Low8.5-10.5PMercy Health Anderson Hospital SystemComment on above:Performed By: #### ELROY EUBANKS, 84816-4, 25316-3, 2777- ####[facility] ([id number])[address] [address], [place] [address]Nglguavd [Moles/Vol]104 mmol/TQmzoaz47-389 [facility] SystemComment on above:Performed By: #### ELROY EUBANKS, 43388-4, 37640-4, 2777-1 ####[facility] ([id number])[address], [address], [place] [address]OP8 [Moles/Vol]20 mmol/ROjs80-38LecDfgvnn Health System Comment on above:Performed By: #### CHA CMP, 28069-1, 64731-5, 2777-1 ####[facility] ([id number])[address], [place] [address]Eagrwbodhm [Mass/Vol]1.53 mg/dLHigh0.40-1.00ProDale Medical Center Health SystemComment on above:METHOD TRACEABLE TO IDMS STANDARDResult Comment: METHOD TRACEABLE TO IDMS STANDARDPerformed By: #### CHA, ELROY, 17009-3, 85044-6, 277- ####[facility] ([id number])[address] [place] [address] Glucose [Mass/Vol]116 mg/lKEnkq45-89GynFvvmod Health SystemComment on above: Performed By: #### ELROY EUBANKS, 53204-7, 68214-7, 277- ####[facility] ([id number])[address], [place] [address]Rtvhkvjes [Moles/Vol]4.2 mmol/LNormal3.5-5.0ProDale Medical Center Health SystemComment on above: Performed By: #### ELROY EUBANKS, 59621-2, 81335-6, 27701-21 ####[facility] ([id number])[address], [place] [address]Mlsieoh [Mass/Vol]5.7 g/dLLow6.0-8.0ProDale Medical Center Health SystemComment on above:Performed By: #### ELROY EUBANKS, 65922-5, 75750-0, 2777-1 ####[facility] ([id number])[address] [place], [place] [address]Swodjp [Moles/Vol]139 mmol/JCiafln430-735MqePcjnqn Health SystemComment on above:Performed By: #### ELROY EUBANKS, 10280-2, 21687-8, 2777-1 ####[facility] ([id number])[address], [address] [place] [address]Ssit nitrogen [Mass/Vol]28 mg/dLHigh5-27Mount [facility] Health SystemComment on above:Performed By: #### CBCA, CMP, 32938-3, 77530-1, 2777-1 ####[facility] ([id number])[address] [facility], [address] [place] [address]Lgqxpww.ionized (Bld) [Mass/Vol]on 59-76-0481MTVOOHH CALCIUM4.4 mg/dLLow4.5-5.3PTriHealth McCullough-Hyde Memorial HospitalComment on above:Performed By: #### 55352-6, 83445-9 ####[facility] ([id number])[address] [facility], [address] [place] [address]JsiPguzxcMount Carmel Health System IONIZED CALCIUM4.5 mg/dLNormal4.5-5.3PTriHealth McCullough-Hyde Memorial HospitalComment on above: Performed By: #### PINR, 40071-5, CMP, 95046-1, 2777-1, CBCA, 64202-4 #### [facility] ([id number]) [address] [facility], [address] [address]Vvycyfcninwtoi and review of laboratory resultsAbnoLehigh Valley Hospital - Schuylkill South Jackson StreetComprehensive metabolic panelon 05-22-2024 ALT No additional P-5'-P [Catalytic activity/Vol]79 U/LHigh0 - 31 U/LPrElyria Memorial HospitaleGFR (CKD-EPI)non-race nobzxkfoy74Bxb- PINMetropolitan Saint Louis Psych[facility] Center Comment on above: Reported eGFR is based on the CKD-EPI 2020 equation that does not use a race coefficient. Ionized calciumon 07-05-4839Trqwcdo.ionized (Bld) [Mass/Vol]4.5 mg/dL4.5 - 5.3 mg/dLMount Carmel Health SystemCalcium.ionized (Bld) [Mass/Vol]4.4 mg/dLLow4.5 - 5.3 mg/dLProMedica Health SystemIonized magnesiumon 13-18-8559Mlawarekl Ionized ISE (Bld) [Moles/Vol]0.54 mmol/L0.45 - 0.74 mmol/LPrOhioHealth Dublin Methodist Hospital SystemComment on above:NEW REFERENCE RANGELaboratory - Chemistry and Chemistry - challengeon 85-21-7562Zpmrtqesw [Mass/Vol]1.8 mg/dLNormal1.8-2.6[facility] Comment on above:Performed By: #### CBCAndrew, ELROY, 53863-8, 40755-7, 2776- ####[facility] ([id number])[address] [facility], [address], [place] [address]Dewrhyqrm [Mass/Vol]4.7 mg/dLNormal2.4-4.9[facility] Health SystemComment on above:Performed By: #### BERNARD, 74656-0, CMP, 79849-3, 2776-, CBCA, 31821-5 #### [facility] ([id number]) [address] [facility], [address] [place], [place] [address]Qjadcer (P jannette) [Moles/Vol]on 00-02-9249YmcAgtobcSelect Medical Specialty Hospital - Cleveland-Fairhill LACTATE W/REFLEX1.3 mmol/LNormal0.4-2.0S[facility]I Hospital LimaComment on above:Result Comment: Result did not trigger repeat Lactate, re-order if needed.Performed By: #### BERNARD, 12940-4, CMP, 23026-5, 2776-, CBCA, 26687-2 #### [facility] ([id number]) [address], [address] [place], [place] [address]TgoMdosez Health SystemLACTATE W/REFLEX1.6 mmol/LNormal0.4-2.0 [facility] Hospital LimaComment on above:Result Comment: Result did not trigger repeat Lactate, re-order if needed.Performed By: #### BERNARD, 08425-3, CMP, 91369-5, 2776-1, CBCA, 80476-2 #### [facility] ([id number]) [address] [facility], [address] [place], [place] [address]Ujwhwec w/ Reflexon 35-33-7914Dbvgncs (P jannette) [Moles/Vol]1.3 mmol/L0.4 - 2.0 mmol/LPrSCL Health Community Hospital - Southwest Health SystemComment on above: Result did not trigger repeat Lactate, re-order if needed. Lactate (P jannette) [Moles/Vol]1.6 mmol/L0.4 - 2.0 mmol/LProMedica Health System Comment on above: Result did not trigger repeat Lactate, re-order if needed. Magnesium Ionized ISE (Bld) [Moles/Vol]on 48-94-2714Brgoubzyo [Moles/Vol]0.54 mmol/LNormal0.45-0.74S[facility] Hospital LimaComment on above:Result Comment: NEW REFERENCE RANGEPerformed By: #### 63558-9, 27702-7 ####[facility] ([id number])[address] [facility], [address], [place] [address]EssEyfwmkMount Carmel Health SystemNo Panel Informationon 78-31-7482Rowivjdrtfnqko and review of laboratory resultsAbnormalProUc HealthProMary Rutan Hospital SystemProcalcitoninon 89-69-2294Kvtlbiyqneynm [place] [Mass/Vol]424.58 ng/mLHighNINF - 0.05 ng/mLMount Carmel Health SystemComment on above:NOTE <0.50 ng/mL - Low risk of severe sepsis and/or septic shock. <2.00 ng/mL - Recommend retesting within 6-24 hours. >2.00 ng/mL - High risk of sepsis and/or septic shock. Procalcitonin IA [Mass/Vol]on 89-26-5044YHZPVICQOFARS413.58 ng/mLHigh<0.05 [facility] Hospital LimaComment on above:Result Comment: NOTE <0.50 ng/mL - Low risk of severe sepsis and/or septic shock. <2.00 ng/mL - Recommend retesting within 6-24 hours. >2.00 ng/mL - High risk of sepsis and/or septic shock.Performed By: #### PINR, 72105-6, CMP, 39719-2, 2777-1, CBCA, 43454-9 #### [facility] ([id number]) [address], [address] [place], [place] [address]LJPSzg 56-37-8836rXLK Coag (PPP) [Time]29 [facility]itan HospitalArterial Line Insertionon 07-85-3195PgxbSTEPHEN Grace 05/21/2024 2:23 PM Arterial Line Insertion Date/Time: 05/21/2024 2:19 PM Performed by: STEPHEN Cobian Authorized by: STEPHEN Cobian Consent: Verbal consent obtained. Risks and benefits: risks, benefits and alternatives were discussed Consent given by: patient Patient understanding: patient states understanding of the procedure being performed Patient consent: the patient's understanding of the procedure matches consent given Procedure consent: procedure consent matches procedure scheduled Relevant documents: relevant documents present and verified Site marked: the operative site was marked Imaging studies: imaging studies available Required items: required blood products, implants, devices, and special equipment available Patient identity confirmed: verbally with patient, arm band, provided demographic data and hospital-assigned identification number Time out: Immediately prior to procedure a time out was called to verify the correct patient, procedure, equipment, business support coordinator and site/side marked as required. Fire Risk Assessment Score Procedure site above the Xiphoid 0 Open O2 source (mask/cannula) 1 Ignition source (Cautery, Fiberoptic Light, Laser) 0 Total Fire Risk Assessment Score 1 Preparation: Patient was prepped and draped in the usual sterile fashion. Indications: multiple ABGs and hemodynamic monitoring Location: left radial Anesthesia: local infiltration Anesthesia: Local Anesthetic: lidocaine 1% without epinephrine Anesthetic total: 3 mL Sedation: Patient sedated: no Matt's test normal: yes Needle gauge: 20 Seldinger technique: Seldinger technique used Number of attempts: 1 Post-procedure: line sutured and dressing applied Post-procedure CMS: normal and unchanged Patient tolerance: Patient tolerated the procedure well with no immediate complications Procedure was completed Vital signs stable during the procedure Complications: none Interventions: none [facility]edic[facility] SystemBLOOD CULTUREon [id number] identified Aer cx Nom (Bld)CULTURE RESULTS ESCHERICHIA COLI FOR SUSCEPTIBILITY, SEE PREVIOUS REPORT.NormalSCCI Hospital LimaComment on above:Performed By: #### PINR, 43770-4, CMP, 55951-7, 7-1, CBCA, 59661-9 #### [facility] ([id number]) [address], [address] [place], [place] [address]Djoaggbu identified Aer cx Nom (Bld)CULTURE RESULTS ESCHERICHIA COLI Escherichia coli detected by PCR. No resistance genes detected by PCR. [ S = SUSCEPTIBLE R = RESISTANT I = INTERMEDIATE S-DO = Susceptible-dose dependent NS = Non-suscceptible NO = No Interpretation ] Organism: ESCHERICHIA COLI Antibiotic Interpretation ASHA Status AMPICILLIN S <=2 F AMP/SULBACTAM S <=2/1 F CEFAZOLIN UNK <=4 F CLSI interpretive criteria for nonurinary isolates are as follows: <=2 Susceptible, 4 Intermediate, Resistant >=8. Contact Microbiology laboratory if further susceptibility testing for Cefazolin is required. CEFTRIAXONE S <=0.25 F CIPROFLOXACIN S <=0.25 F GENTAMICIN S <=1 F LEVOFLOXACIN S <=0.12 F PIPERACIL/TAZOBACTAM S <=4 F TOBRAMYCIN S <=1 FSusceptibleProSamaritan HospitalComment on above:Performed By: #### 33255-8 ####[facility] ([id number])[address] [facility], [address] [place] [address]Eoratchhp/100 WBC Manual cnt (Bld)on 05-21-2024 Basophils/100 WBC (Bld)Basophils/100 leukocytes in Blood by Manual countLow 0.2-2.0[facility] HospitalCBC AND AUTO DIFFon [id number] form neutrophils/100 WBC (Bld)37.0 %NormalSCCI Hospital LimaComment on above: Performed By: #### PINR, 03491-9, CMP, 09046-7, 2777-1, CBCA, 27154-0 #### [facility] ([id number]) [address] [facility], [address] [place], [place] [address]Suaxnksasvu distribution width (RBC) [Ratio]15.3 %High11.5-15.0 [facility] HospitalComment on above:Performed By: #### PINR, 49441-9, CMP, 07445-5, 2777-1, CBCA, 90646-7 #### [facility] ([id number]) [address], [address] [place], [place] [address]Wtjmnfgris (Bld) [Volume fraction]34.6 %Exm84-33FkcMthett [place] HospitalComment on above:Performed By: #### PINR, 99435-7, CMP, 71051-2, 2777-1, CBCA, 17901-5 #### [facility] ([id number]) [address], [address] [place], [place] [address]Tdvrcuruue (Bld) [Mass/Vol]11.6 g/dLLow11.7-15.5PC[facility] HospitalComment on above:Performed By: #### PINR, 72260-1, CMP, 48080-8, 7- 1, CBCA, 29892-0 #### [facility] ([id number]) [address], [address] [place], [place] [address]Bhfhxqtqgvs (Bld) [#/Vol]0.2 10*3/uLLow1.0-3.5PC[facility] HospitalComment on above:Performed By: #### PINR, 18098-3, CMP, 57131-3, 2777-1, CBCA, 31562-7 #### [facility] ([id number]) [address], [address] [place], [place] [address]Anbnyhqqvsf/100 WBC (Bld)1.0 %NormalProAkron Children'S Hospital Hospital Comment on above:Performed By: #### PINR, 05557-8, CMP, 24979-5, 2777-1, CBCA, 71601-1 #### [facility] ([id number]) [address], [address] [place], [place] [address]FRA (RBC) [Entitic mass]29.7 qoCdvakh78-78OwyDpmzkn Cleveland HospitalComment on above:Performed By: #### PINR, 63390-0, CMP, 86224-7, 2777-1, CBCA, 36610-7 #### [facility] ([id number]) [address], [address] [place], [place] [address]YPLS (RBC) [Mass/Vol]33.5 g/eHHopnfe33-32JefMpyulq [place] HospitalComment on above:Performed By: #### PINR, 18491-7, CMP, 71704-8, 2777-1, CBCA, 80607-2 #### [facility] ([id number]) [address], [address] [place], [place] [address]KAG (RBC) [Entitic vol]89 xNMoreip90-435QdfUcigof [place] HospitalComment on above:Performed By: #### PINR, 50484-1, CMP, 38407-0, 2777-1, CBCA, 06155-4 #### [facility] ([id number]) [address], [address] [place], [place] [address]Raqwabiglpvwhm/100 WBC (Bld)6.0 %NormalProAkron Children'S Hospital Hospital Comment on above:Performed By: #### PINR, 62182-9, CMP, 45397-5, 2777-1, CBCA, 69081-7 #### [facility] ([id number]) [address], [address] [place], [place] [address]Xexuiipff (Bld) [#/Vol]0.5 10*3/uLNormal0-0.9ProOur Lady Of Mercy Hospitalca [place] HospitalComment on above:Performed By: #### PINR, 91706-5, CMP, 06233-6, 2777-1, CBCA, 46523-3 #### [facility] ([id number]) [address], [address] [place], [place] [address]Atetpvznv/100 WBC (Bld)3.0 %NormalSCCI Hospital Lima Comment on above:Performed By: #### PINR, 15339-5, CMP, 54739-5, 2777-1, CBCA, 72747-6 #### [facility] ([id number]) [address], [address] [place], [place] [address]Nhhvymzmhms (Bld) [#/Vol]14.2 10*3/uLHigh1.5-6.6ProSamaritan HospitalComment on above:Performed By: #### PINR, 80371-1, CMP, 28149-0, 2777- 1, CBCA, 93478-4 #### [facility] ([id number]) [address], [address] [place], [place] [address]Hssikcmk mean volume (Bld) [Entitic vol]7.8 fLNormal7-12 SCCI Hospital LimaComment on above:Performed By: #### PINR, 20760-0, CMP, 85736-7, 2777-1, CBCA, 49219-2 #### [facility] ([id number]) [address], [address] [place] [address]Dblcuflco (Bld) [#/Vol]63 10*3/qTBxv200-619WswRwhfnwSamaritan HospitalComment on above:Performed By: #### PINR, 57572-5, CMP, 28286-4, 2777-1, CBCA, 15533-2 #### [facility] ([id number]) [address], [address] [place], [place] [address]BBX COUNT3.90 X10E12/LNormal3.80-5.20[facility] Comment on above:Performed By: #### PINR, 27817-7, CMP, 62231-0, 2777-1, CBCA, 54743-5 #### [facility] ([id number]) [address], [address] [place], [place] [address]NIV morphology finding Nom (Bld)NORMALNormalProSamaritan HospitalComment on above:Performed By: #### PINR, 35505-1, CMP, 06440-2, 2777-1, CBCA, 61623-4 #### [facility] ([id number]) [address], [address] [place], [place] [address]CAQ WLSUVJTBCN64.0 %NormalProSamaritan HospitalComment on above:Performed By: #### PINR, 11089-8, CMP, 48376-9, 2777-1, CBCA, 65282-0 #### [facility] ([id number]) [address], [address] [place], [place] [address]GUH (Bld) [#/Vol]15.8 10*3/uLHigh4.0-11.0ProSamaritan HospitalComment on above:Performed By: #### PINR, 69955-0, CMP, 61530-8, 2777-1, CBCA, 66631-7 #### [facility] ([id number]) [address], [address] [place] [address]UNW auto differentialon 94-13-4791Ddrc form neutrophils/100 WBC (Bld)37 %[facility] Health SystemErythrocyte distribution width (RBC) [Ratio]15.3 %High11.5 - 15.0 %[facility] Health SystemHematocrit (Bld) [Volume fraction]34.6 %Low35 - 47 %[facility] Health SystemHemoglobin (Bld) [Mass/Vol]11.6 g/dLLow11.7 - 15.5 g/dLBarre City HospitalMedica Health SystemInterpretation and review of laboratory resultsAbnormalMount Carmel Health SystemLymphocytes (Bld) [#/Vol]0.2 10*3/uLLow [facility] SystemLymphocytes/100 WBC (Bld)1 %[facility] SystemMCH (RBC) [Entitic mass]29.7 pg27 - 34 [facility] ClinicMCHC (RBC) [Mass/Vol]33.5 g/dL32 - 36 g/dLMount Carmel Health SystemMCV (RBC) [Entitic vol]89 fL80 - 100 [facility] WestMetamyelocytes/100 WBC (Bld)6 %[facility] Health SystemMonocytes (Bld) [#/Vol]0.5 10*3/[facility] Monocytes/100 WBC (Bld)3 %[facility] Health SystemNeutrophils (Bld) [#/Vol]14.2 10*3/uLReston Hospital CenterPlatelet mean volume (Bld) [Entitic vol]7.8 fL 7 - 12 fLPSelect Medical Specialty Hospital - Cleveland-FairhillPlatelets (Bld) [#/Vol]63 10*3/uLMemorial HospitalPolymorphonuclear cells/100 WBC (Bld)NORMALMount Carmel Health System RBC (Bld) [#/Vol]3.9 10*6/uLNovant Health Forsyth Medical Centeregmented neutrophils/100 WBC (Bld)53 %[facility] Health SystemWBC corrected for nucl RBC Auto (Bld) [#/Vol] 15.8HighLehigh Valley Health NetworkCOMPREHENSIVE METABOLIC PANELon 32-30-3153Apenbdd [Mass/Vol]2.8 g/dLLow3.2-5.3PTriHealth McCullough-[facility] Comment on above:Performed By: #### BERNARD, 57531-8, CMP, 05954-5, 7-1, CBCA, 36173-7 #### [facility] ([id number]) [address], [address] [place], [place] [address]JMF [Catalytic activity/Vol]242 U/WMfln85-054KkfFdatveSCCI Hospital LimaComment on above:Performed By: #### KATLYNR, 21741-6, CMP, 96010-5, 2777-1, CBCA, 70113-4 #### [facility] ([id number]) [address], [address] [place], [place] [address]DQO [Catalytic activity/Vol]95 U/LHigh0-31[facility] HospitalComment on above:Performed By: #### PINR, 31053-6, CMP, 90841-3, 2777-1, CBCA, 18635-3 #### [facility] ([id number]) [address], [address] [place], [place] [address]Awmsx gap [Moles/Vol]14 mmol/LNormal5-15ProAkron Children'S Hospital HospitalComment on above:Performed By: #### PINR, 61909-1, CMP, 00216-7, 2777-1, CBCA, 95517-7 #### [facility] ([id number]) [address], [address] [place], [place] [address]NNW [Catalytic activity/Vol]189 U/LHigh0-41ProAkron Children'S Hospital HospitalComment on above:Performed By: #### PINR, 67771-8, CMP, 65846-0, 2777-1, CBCA, 48927-7 #### [facility] ([id number]) [address], [address] [place], [place] [address]Qvkmkcrsq [Mass/Vol]1.0 mg/dLNormal0.3-1.2PTriHealth McCullough-Hyde Memorial HospitalComment on above:Performed By: #### PINR, 17862-0, CMP, 88178-8, 2777-1, CBCA, 58475-2 #### [facility] ([id number]) [address], [address] [place], [place] [address]Wwxuptf [Mass/Vol]8.1 mg/dLLow8.5-10.5PTriHealth McCullough-Hyde [facility] Hospital Comment on above:Performed By: #### PINR, 87497-9, CMP, 28671-0, 2777-1, CBCA, 16033-2 #### [facility] ([id number]) [address], [address] [place], [place] [address]Vdvlthmo [Moles/Vol]101 mmol/LCojjkk63-166SkeAjbgzn [place] HospitalComment on above:Performed By: #### PINR, 75022-1, CMP, 77175-1, 2777-1, CBCA, 66925-4 #### [facility] ([id number]) [address], [address] [place], [place] [address]ER0 [Moles/Vol]22 mmol/WChvera30-73AklVrnwreTriHealth McCullough-[facility] Hospital Comment on above:Performed By: #### PINR, 15703-9, CMP, 99109-6, 2777-1, CBCA, 64453-3 #### [facility] ([id number]) [address], [address] [place], [place] [address]Ywdzcskxyi [Mass/Vol]1.50 mg/dLHigh0.40-1.00SCCI Hospital LimaComment on above:Result Comment: METHOD TRACEABLE TO IDMS STANDARD Performed By: #### PINR, 31535-7, CMP, 85397-8, 7-1, CBCA, 35035-0 #### [facility] ([id number]) [address], [address] [place], [place] [address]RAN/1.73 sq M.predicted among non-blacks MDRD (S/P/Bld) [Vol rate/Area]38 mL/min/{1.73_m2}Low>59ProSamaritan HospitalComment on above: Result Comment: Reported eGFR is based on the CKD-EPI 2020 equation that does not use a race coefficient.Performed By: #### PINR, 68497-1, CMP, 06225-2, 2777- 1, CBCA, 28862-7 #### [facility] ([id number]) [address], [address] [place], [place] [address]Lmxudbr [Mass/Vol]110 mg/jCJvwc97-00KjaJfmsmfSCCI Hospital Lima Comment on above:Performed By: #### PINR, 20394-6, CMP, 74992-6, 2777-1, CBCA, 81494-9 #### [facility] ([id number]) [address], [address] [place], [place] [address]Pxnpvbpjo [Moles/Vol]3.1 mmol/LLow3.5-5.0[facility] HospitalComment on above:Performed By: #### PINR, 27487-1, CMP, 54062-9, 2777-1, CBCA, 71191-0 #### [facility] ([id number]) [address], [address] [place] [address]Soqclwu [Mass/Vol]5.8 g/dLLow6.0-8.0ProAkron Children'S Hospital Hospital Comment on above:Performed By: #### PINR, 38083-8, CMP, 59677-6, 2777-1, CBCA, 24740-5 #### [facility] ([id number]) [address], [address] [place] [address]Evandu [Moles/Vol]137 mmol/WDiscch127-463UkaMtabdi Cleveland HospitalComment on above:Performed By: #### PINR, 00291-9, CMP, 91810-2, 2777-1, CBCA, 01959-4 #### [facility] ([id number]) [address], [address] [place], [place] [address]Wdyz nitrogen [Mass/Vol]21 mg/dLNormal5-27ProOur Lady Of Mercy Hospitalca [place] HospitalComment on above:Performed By: #### PINR, 72535-4, CMP, 97934-0, 2777-1, CBCA, 68147-8 #### [facility] ([id number]) [address], [address] [place] [address]Flsesva Line Insertionon 09-17-4126FdyvSTEPHEN Cobian 05/21/2024 2:27 PM Central Line Insertion Date/Time: 05/21/2024 2:25 PM Performed by: STEPHEN Cobian Authorized by: STEPHEN Cobian Consent: Verbal consent obtained. Written consent obtained. Risks and benefits: risks, benefits and alternatives were discussed Consent given by: patient Patient understanding: patient states understanding of the procedure being performed Patient consent: the patient's understanding of the procedure matches consent given Procedure consent: procedure consent matches procedure scheduled Relevant documents: relevant documents present and verified Site marked: the operative site was marked Imaging studies: imaging studies available Required items: required blood products, implants, devices, and special equipment available Patient identity confirmed: verbally with patient, arm band, provided demographic data and hospital-assigned identification number Time out: Immediately prior to procedure a time out was called to verify the correct patient, procedure, equipment, business support coordinator and site/side marked as required. Fire Risk Assessment Score Procedure site above the Xiphoid 1 Open O2 source (mask/cannula) 1 Ignition source (Cautery, Fiberoptic Light, Laser) 0 Total Fire Risk Assessment Score 2 Indications: vascular access and central pressure monitoring Anesthesia: local infiltration Anesthesia: Local Anesthetic: lidocaine 1% without epinephrine Anesthetic total: 3 mL Sedation: Patient sedated: no Preparation: skin prepped with ChloraPrep Skin prep agent dried: skin prep agent completely dried prior to procedure Sterile barriers: all five maximum sterile barriers used - cap, mask, sterile gown, sterile gloves, and large sterile sheet Hand hygiene: hand hygiene performed prior to central venous catheter insertion Location details: right internal jugular Patient position: Trendelenburg Catheter type: triple lumen Catheter size: 7 Fr Pre-procedure: landmarks identified Ultrasound guidance: yes Sterile ultrasound techniques: sterile gel and sterile probe covers were used Number of attempts: 1 Successful placement: yes Post-procedure: line sutured and dressing applied Assessment: blood return through all ports, free fluid flow and placement verified by x-ray Patient tolerance: patient tolerated the procedure well with no immediate complications Procedure was completed Vital signs stable during the procedure Complications: none Interventions: none [facility] SystemProMedica Health SystemComprehensive metabolic panelon 95-59-7688Qpqpuka [Mass/Vol]2.8 g/dLLow3.2 - 5.3 g/dLProMedica Health SystemALP [Catalytic activity/Vol]242 U/LHigh39 - 130 U/[facility] SystemALT No additional P-5'-P [Catalytic activity/Vol]95 U/LHigh0 - 31 U/LProMedica Health SystemAnion gap [Moles/Vol]14 mmol/L5 - 15 mmol/LProMedica Health SystemAST [Catalytic activity/Vol]189 U/LHigh0 - 41 U/LProMedica Health SystemBilirubin [Mass/Vol]1 mg/dL0.3 - 1.2 mg/dLProDale Medical Center Health SystemCalcium [Mass/Vol]8.1 mg/dLLow8.5 - 10.5 mg/dLProDale Medical Center Health SystemChloride [Moles/Vol]101 mmol/L98 - 109 mmol/LProMedica Health SystemCO2 [Moles/Vol]22 mmol/L22 - 32 mmol/L [facility] SystemCreatinine [Mass/Vol]1.5 mg/dLHigh0.40 - 1.00 mg/dL [facility] SystemComment on above:METHOD TRACEABLE TO IDOK STANDARDeGFR (CKD-EPI)non-race pntnfetve68Oyi- PINGrand Lake [facility] Hospital SystemComment on above: Reported eGFR is based on the CKD-EPI 2020 equation that does not use a race coefficient. Glucose [Mass/Vol]110 mg/zXUsoi08 - 99 mg/dLProOur Lady Of Mercy Hospitalca Health SystemPotassium [Moles/Vol]3.1 mmol/LLow3.5 - 5.0 mmol/LProMedica Health SystemProtein [Mass/Vol]5.8 g/dLLow6.0 - 8.0 g/dLProDale Medical Center Health SystemSodium [Moles/Vol]137 mmol/L134 - 146 mmol/LPrSalem Memorial District Hospitalica Health SystemUrea nitrogen [Mass/Vol]21 mg/dL5 - 27 mg/dLKettering Health Hamilton SystemElectrocardiogram, 12-leadon 05-21-2024 TRACEMASTERVUEProMary [facility] Hospital SystemEosinophils/100 WBC Manual cnt (Bld)on 15-26-8012Hbpkzjgeybi/100 WBC (Bld)Eosinophils/100 leukocytes in Blood by Manual count0.9-7.0[facility] HospitalErythrocyte distribution width Auto (RBC) [Ratio]on 51-46-8998Khzskkbxwtu distribution width (RBC) [Ratio] Erythrocyte distribution width [Ratio] by Automated count11.0-15.0[facility] HospitalEstimated glomerular filtration rate (GFR) non- Americanon 65-01-6664ADX/1.73 sq M.predicted among non-blacks MDRD (S/P/Bld) [Vol rate/Area]Estimated glomerular filtration rate (GFR) non- Low>=60 mL/min/1.73m 2FCleveland Clinic Euclid HospitalFine granular cast count in urine sediment by microscopy (number/low power field )on 02-27-2719Wtpg Granular Casts LM.LPF (Urine sed) [#/Area]Fine granular cast count in urine sediment by microscopy (number/low power field )[facility] HospitalGlobulin Calc (S) [Mass/Vol]on 18-70-3639Arbjufdo (S) [Mass/Vol]Serum globulin measurement by calculation (mass/volume)[facility] HospitalGlucose Glucometer (BldC) [Mass/Vol]on 12-41-7064Wuwozmn [Mass/Vol]114 mg/lBYxbk51 - 99 mg/dLMount Carmel Health SystemInterpretation and review of laboratory resultsAbnormalProUc HealthProUc HealthGlucose [Mass/Vol]114 mg/vQGuja87-87UjcBeuiiaSamaritan HospitalGuidance for percutaneous placement of nephrostomy tube of Kidneyon 24-18-6717RGND: Image guided percutaneous nephrostomy tube placement, left CLINICAL HISTORY: 68-year-old female with obstructing left ureterovesicular stone in concern for urosepsis presents for percutaneous nephrostomy tube placement. STAFF: Dr. Den Thompson ANESTHESIA: Moderate sedation with Versed 2 mg and Fentanyl 100 mcg IV; A qualified, independent radiology nurse monitored the patient's cardiovascular status during the procedure. 1% Lidocaine used as local anesthetic. Sedation time was 30 minutes. Total fluoroscopy time= minutes Reference Air Kerma = mGy Total saved images: 2 fluoroscopy, 1 ultrasound TECHNIQUE: Informed written and verbal consent was obtained following discussion of procedure and risks. All questions were answered. Final verification was performed. Patient was placed on the table prone. The left flank was prepared and draped in usual sterile fashion. Limited ultrasound demonstrates moderate hydronephrosis. A skin entry site was marked, 1% lidocaine was used for local anesthesia. Access to a posterior inferior calyx was obtained utilizing a 21-gauge needle under real-time ultrasound guidance. This was confirmed with return of clear urine,contrast injection demonstrates opacification of the collecting system. Using the AccuStick introducer set, the system was upsized to accommodate an 035 Amplatz wire. The tract was then dilated to accommodate a 10 Nicaraguan nephrostomy tube. The catheter was secured with a single 0 Prolene suture. Dressing applied. Patient tolerated all procedures well and there were no complications. FINDINGS: Severe left hydronephrosis, fluoroscopic images demonstrated appropriate positioning of nephrostomytube within the collecting system IMPRESSION: Successful image guided placement of left 10 Nicaraguan percutaneous nephrostomy tube PLAN: Maintained to gravity drainage Follow-up urine culture Routine catheter exchange should be performed in 6-8 weeks pending definitive urologic management Finalized by Den Thompson MD on 05/21/2024 5:07 PMSECTRAPACSDonna, Den Perera MD - 05/21/2024 EXAM: Image guided percutaneous nephrostomy tube placement, left CLINICAL HISTORY: 68-year-old female with obstructing left ureterovesicular stone in concern for urosepsis presents for percutaneous nephrostomy tube placement. STAFF: Dr. Den Thompson ANESTHESIA: Moderate sedation with Versed 2 mg and Fentanyl 100 mcg IV; A qualified, independent radiology nurse monitored the patient's cardiovascular status during the procedure. 1% Lidocaine used as local anesthetic. Sedation time was 30 minutes. Total fluoroscopy time= minutes Reference Air Kerma = mGy Total saved images: 2 fluoroscopy, 1 ultrasound TECHNIQUE: Informed written and verbal consent was obtained following discussion of procedure and risks. All questions were answered. Final verification was performed. Patient was placed on the table prone. The left flank was prepared and draped in usual sterile fashion. Limited ultrasound demonstrates moderate hydronephrosis. A skin entry site was marked, 1% lidocaine was used for local anesthesia. Access to a posterior inferior calyx was obtained utilizing a 21-gauge needle under real-time ultrasound guidance. This was confirmed with return of clear urine,contrast injection demonstrates opacification of the collecting system. Using the AccuStick introducer set, the system was upsized to accommodate an 035 Amplatz wire. The tract was then dilated to accommodate a 10 Nicaraguan nephrostomy tube. The catheter was secured with a single 0 Prolene suture. Dressing applied. Patient tolerated all procedures well and there were no complications. FINDINGS: Severe left hydronephrosis, fluoroscopic images demonstrated appropriate positioning of nephrostomytube within the collecting system IMPRESSION: Successful image guided placement of left 10 Nicaraguan percutaneous nephrostomy tube PLAN: Maintained to gravity drainage Follow-up urine culture Routine catheter exchange should be performed in 6-8 weeks pending definitive urologic management Finalized by Den Thompson MD on 05/21/2024 5:07 PM [facility] SystemRadiology Study observation (narrative)[facility] SystemGuidance for percutaneous placement of nephrostomy tube of KidneyOrdered By: Den Thompson on 04-37-6184XloJgteia [facility] Work Phone: Hematocrit Auto (Bld) [Volume fraction]on 05-21-2024 Hematocrit (Bld) [Volume fraction]Hematocrit [Volume Fraction] of Blood by Automated count36.0-48.0[facility] HospitalHemoglobin [Mass/volume] in Bloodon 92-69-7301Hmjjfnbali (Bld) [Mass/Vol]Hemoglobin [Mass/volume] in Blood12.0-16.0[facility] Methodist HospitalIR PERC NEPH TUBE LT + NGRAM + S AND Ion 93-81-4022LO PERC NEPH TUBE LT + NGRAM + S AND IIR PERC NEPH TUBE LT + NGRAM + S&I EXAM: Image guided percutaneous nephrostomy tube placement, left CLINICAL HISTORY: 68-year-old female with obstructing left ureterovesicular stone in concern for urosepsis presents for percutaneous nephrostomy tube placement. STAFF: Dr. Den Thompson ANESTHESIA: Moderate sedation with Versed 2 mg and Fentanyl 100 mcg IV; A qualified, independent radiology nurse monitored the patient's cardiovascular status during the procedure. 1% Lidocaine used as local anesthetic. Sedation time was 30 minutes. Total fluoroscopy time= minutes Reference Air Kerma = mGy Total saved images: 2 fluoroscopy, 1 ultrasound TECHNIQUE: Informed written and verbal consent was obtained following discussion of procedure and risks. All questions were answered. Final verification was performed. Patient was placed on the table prone. The left flank was prepared and draped in usual sterile fashion. Limited ultrasound demonstrates moderate hydronephrosis. A skin entry site was marked, 1% lidocaine was used for local anesthesia. Access to a posterior inferior calyx was obtained utilizing a 21-gauge needle under real-time ultrasound guidance. This was confirmed with return of clear urine, contrast injection demonstrates opacification of the collecting system. Using the AccuStick introducerset, the system was upsized to accommodate an 035 Amplatz wire. The tract was then dilated to accommodate a 10 Nicaraguan nephrostomy tube. The catheter was secured with a single 0 Prolene suture. Dressing applied. Patient tolerated all procedures well and there were no complications. FINDINGS: Severe left hydronephrosis, fluoroscopic images demonstrated appropriate positioning of nephrostomytube within the collecting system IMPRESSION: Successful image guided placement of left 10 Nicaraguan percutaneous nephrostomy tube PLAN: Maintained to gravity drainage Follow-up urine culture Routine catheter exchange should be performed in 6-8 weeks pending definitive urologic management Finalized by Den Thompson MD on 05/21/2024 5:07 PMNormalProMedica Fostoria City HospitalLaboratory - Chemistry and Chemistry - challengeon 20-90-3219Ngvbwkf [Moles/Vol]4.9 mmol/LCritically high0.4-2.0[facility] Comment on above:RESULTS CALLED TO DR. RIVERABilirubin Ql (U)SMALLAbnormal NEGATIVEOhiohealth Riverside Methodist HospitalGlucose (U) [Mass/Vol]NegativeNEGATIVE [facility] HospitalKetones Ql (U)TRACE mg/dLAbnormalNEGATIVE [facility] HospitalpH (U)5.5 [pH]5.0-9.0[facility]utheran Hospitalpecific gravity (U) [Rel density]1.0251.005-1.025[facility] Methodist HospitalUrobilinogen Qn (U)1.0 {Joon'U}/dL0.2-1.0[facility] HospitalAlbumin [Mass/Vol]2.4 g/dLLow3.4-5.0[facility] HospitalALP [Catalytic activity/Vol]390 U/HJyrf44-477DiirnzreaOhiohealth Riverside Methodist HospitalALT [Catalytic activity/Vol]93 U/YJroc08-51BqcfxaixaOhiohealth Riverside Methodist HospitalAST [Catalytic activity/Vol]190 U/HBklp90-63UbgmugxpqOhiohealth Riverside Methodist HospitalBilirubin [Mass/Vol]1.6 mg/dLHigh0.2-1.0[facility] Calcium [Mass/Vol]9.5 mg/dL8.5-10.1FCleveland Clinic Euclid HospitalChloride [Moles/Vol]98 mmol/P80-588HwwewnqqzOhiohealth Riverside Methodist HospitalCO2 [Moles/Vol]24.3 mmol/L21.0-32.0[facility] HospitalCreatinine [Mass/Vol]1.50 mg/dL High0.55-1.02[facility] HospitalGFR/1.73 sq M.predicted MDRD (S/P/Bld) [Vol rate/Area]42 mL/min/{1.73_m2}Low>=60 mL/min/1.73m 2FCleveland Clinic Euclid HospitalGlucose [Mass/Vol]116 mg/tGKmfq50-583FlcbmfrjiOhiohealth Riverside Methodist HospitalPotassium [Moles/Vol]2.6 mmol/LCritically low3.5-5.1FCleveland Clinic Euclid HospitalComment on above:RESULTS CALLED TO SHARRI DEGROOT RN @BY Barb Connors at 0450Protein [Mass/Vol]7.0 g/dL6.4-8.2FOhioHealth Grady Memorial Hospitalodium [Moles/Vol]138 mmol/X001-126TansyarndOhiohealth Riverside Methodist HospitalUrea nitrogen [Mass/Vol]19.0 mg/dLHigh7.0-18.0Ohio[facility] Methodist HospitalUrea nitrogen/Creatinine [Mass ratio]12.7 mg/mgOhiohealth Riverside Methodist HospitalLaboratory - Hematology and Cell countson 71-41-5771Aoft form neutrophils/100 WBC (Bld)1.0 %0-5FCleveland Clinic Euclid Hospital Lymphocytes/100 WBC (Bld)12.0 %Low20.5-60.0[facility] Monocytes/100 WBC (Bld)15.0 %High1.7-12.0[facility] Laboratory - Microbiology and Antimicrobial susceptibilityon 05-21-2024 SARS-CoV-2 (COVID-19) RNA VENICE+probe Ql (Unsp spec)NegativeNEGATIVEOhiohealth Riverside Methodist HospitalComment on above:This test has not been FDA cleared or approved, but has beenauthorized by the FDA under an Emergency Use Authorization(EUA) for use by authorized laboratories certified underIA that meet the requirements to perform moderate or highcomplexity testing. This test has been authorized only forthe detection of proteins from SARS-CoV-2, not for any otherviruses or pathogens. The emergency use of this test isauthorized for the duration of the declaration thatcircumstances exist justifying the authoriz ation ofemergency use of in vitro diagnostic tests for detectionand/or diagnosis of Covid-19 under section 564(b)(1) of theAct, 21 U.S.C. 360bbb-3(b)(1), unless the declaration isterminated or authorization is revoked sooner.S. agalactiae Org specific cx Ql (Vag fld)Not detectedNOT [facility] CenterLaboratory - Specimen informationon 83-45-5596Hnsqdogqgt (U)CLOUDYAbnormal CLEAROhiohealth Riverside Methodist HospitalColor (U)DK. YELLOWYELLOWOhiohealth Riverside Methodist HospitalLaboratory - Urinalysison 91-58-4971Ywvsiifna sediment LM Ql (Urine sed)Kindred HealthcareLeukocyte esterase Test strip Ql (U)TRACEAbnormalNEGATIVEOhiohealth Riverside Methodist HospitalMucus Ql (Urine sed) SMALLAbnormalNONE [facility]cy HealthNitrite Ql (U)Positive AbnormalNEGTogus VA Medical CenterProtein Ql (U)>=300 mg/dL AbnormalNEG/TRACEOhiohealth Riverside Methodist HospitalLactate (P jannette) [Moles/Vol]on 68-58-9627Zvbhfrgsxufszj and review of laboratory resultsAbnoLehigh Valley Hospital - Schuylkill South Jackson StreetLACTATE W/REFLEX2.4 mmol/LHigh0.4-2.0 SCCI Hospital LimaComment on above:Performed By: #### 42921-1 ####[facility] ([id number])[address] [facility], [address] [place] [address] Interpretation and review of laboratory resultsAbnoMayo Clinic Health System– OakridgeLACTATE W/REFLEX2.3 mmol/LHigh0.4-2.0ProSamaritan HospitalComment on above:Performed By: #### 40636-1 #### [facility] ([id number]) [address], [address] [place], [place] [address]Iubxwan w/ Reflexon 88-13-7592Ofchooj (P jannette) [Moles/Vol]2.4 mmol/LHigh0.4 - 2.0 mmol/LProMedica Health SystemLactate (P jannette) [Moles/Vol]2.3 mmol/LHigh0.4 - 2.0 mmol/LProMedica Health SystemLeukocytes [#/volume] corrected for nucleated erythrocytes in Blood by Automated counon 99-64-2692OTK corrected for nucl RBC Auto (Bld) [#/Vol]Leukocytes [#/volume] corrected for nucleated erythrocytes in Blood by Automated counLow4.0-11.0[facility] Methodist HospitalMAGNESIUMon 08-79-5172Pvkadbyxv [Mass/Vol]1.1 mg/dLLow1.8-2.6ProSamaritan HospitalComment on above:Performed By: #### PINR, 56528-1, CMP, 38265-9, 2777-1, CBCA, 61832-9 #### [facility] ([id number]) [address], [address] [place], [place] [address]ACY Auto (RBC) [Entitic mass]on 97-10-2774VWG (RBC) [Entitic mass]MCH [Entitic mass] by Automated count26.7-34.0Ohio[facility]ide Methodist HospitalMCHC Auto (RBC) [Mass/Vol]on 26-54-4028UXNF (RBC) [Mass/Vol]MCHC [Mass/volume] by Automated count29.9-35.2FCleveland Clinic Euclid HospitalMCV Auto (RBC) [Entitic vol]on 27-16-5596WOI (RBC) [Entitic vol]MCV [Entitic volume] by Automated count81.0-99.0[facility] HospitalMagnesiumon 08-06-8277Wxgtongrp [Mass/Vol]1.1 mg/dLLow1.8 - 2.6 mg/dLMount Carmel Health System Myelocytes/100 WBC Manual cnt (Bld)on 93-19-8482Zufajdcfwq/100 WBC (Bld) Myelocytes/100 leukocytes in Blood by Manual countOhiohealth Riverside Methodist HospitalNo Panel Informationon 49-12-7073Rggofubrvxdqsp and review of laboratory resultsAbnormalProUc HealthProUc HealthProUc HealthTroponin I High Hjdesjrnxzv5967.5 pg/mLCritically high4.0-51.3FCleveland Clinic Euclid HospitalComment on above:RESULTS CALLED TO Demetria Starks,RNCUT-OFF POINTS HAVE BEEN ESTABLISHED BASED ON THE FOURTHUNIVERSAL DEFINITION OF MYOCARDIAL INFARCTION. THE UPPERREFERENCE LIMIT (URL) OF TROPONIN, DEFINED THE 99THPERCENTILE OF cTnI DISTRIBUTION IN A REFERENCE POPULATION,HAS BEEN CONFIRMED THE DECISIONTHRESHOLD FOR MIDIAGNOSIS.99TH PERCENTILE = 51.4 PG/MLNOTE: HIGH-SENSITIVITY TROPONIN ASSAY IS NOT INTENDED TO BEUSED IN ISOLATION BUT SHOULD BE INTERPRETED IN CONJUNCTIONWITH OTHER DIAGNOSTIC AND CLINICAL INFORMATION.Miscellaneous Test CommentSee comment [facility] Methodist HospitalComment on above:Specimen Source: UCATH - Urine Catheterized - Urine Cath - 200.300Urine BacteriaMODERATE #/HPFAbnormalNONE Mercy HealthUrine Culture Result 1\R\ Urine Culture, RoutineOhiohealth Riverside Methodist HospitalUrine Microscopic ReviewYEOhioHealth Marion General HospitalUrine Occult BloodLARGEAbnormalNEGATIVEOhiohealth Riverside Methodist HospitalUrine Other CastsSEEN #/LPFAbnormalNONE Mercy HealthUrine Other CrystalsSeen #/HPFAbnormalNone [facility] Medical CenterUrine WZQ04-46 #/HPFAbnormal0-2FC[facility] Hospital Urine Squamous Epithelial CellsMODERATE #/LPFAbnormalNONE/RAREOhiohealth Riverside Methodist HospitalUrine SYS67-48 #/HPFAbnormalNONE Mercy HealthAbsolute Basophils (Manual)0.00 10 3/uL0.00-0.10Ohio[facility] Methodist HospitalBand Neutrophils # (Manual)0.0 10 3/uL0.0-0.3FCleveland Clinic Euclid HospitalEosinophils # (Manual)0.01 10 3/uL0.00-0.70Ohio[facility] Methodist HospitalLymphocytes # (Manual)0.20 10 3/uLLow1.20-3.80[facility] HospitalMonocytes # (Manual)0.25 10 3/uLLow0.30-0.80[facility] HospitalMyelocytes # (Manual)0.03[facility] HospitalReactive Lymphocytes0.06[facility] HospitalReactive Lymphocytes4.0 % Lutheran Hospitalegmented Neutrophils # (Manual)1.10 10 3/uLLow 1.4-6.5FCleveland Clinic Euclid HospitalBedside Influenza Type A AntigenNegative [facility] HospitalComment on above:Negative for Flu A protein antigen. Infection due to Flu Acannot be ruled out. Flu A antigen in thesample may bebelow the detection limit of the test.Bedside Influenza Type B Antigen NegativeOhiohealth Riverside Methodist HospitalComment on above:Negative for Flu B protein antigen. Infection due to Flu Bcannot be ruled out. Flu B antigen in the sample may bebelow the detection limit of the test.A.calcoaceticus-baumannii cmplx PCRNot detectedNOT [facility] Medical CenterBacteroides fragilis (PCR)Not detectedNOT [facility] Medical CenterBlood Culture SourceBloodOhiohealth Riverside Methodist HospitalCandida albicans (PCR)Not detectedNOT [facility] Medical CenterCandida auris (PCR)Not detectedNOT [facility] CenterCandida glabrata (PCR)Not detectedNOT [facility] Medical CenterCandida krusei (PCR)Not detectedNOT [facility] CenterCandida parapsilosis (PCR) Not detectedNOT [facility] CenterCandida tropicalis (PCR) Not detectedNOT [facility] CenterCrypto neoformans/gattii (PCR)(LAB)Not detectedNOT [facility] CenterCTX-M ESBL (PCR)Not detectedNOT [facility] CenterEnterobacter cloacae complex (PCR)Not detectedNOT [facility] Enterobacterales (PCR)DetectedNOT [facility] Comment on above:RESULTS CALLED TO FRANKY MACHADO,PAEnterococcus faecalis PCR Not detectedNOT [facility] CenterEnterococcus faecium PCR Not detectedNOT [facility] CenterEscherichia coli Result DetectedNOT [facility] Medical CenterComment on above:RESULTS CALLED TO FRANKY MACHADO,PAHaemophilus influenzae DNANot detectedNOT DETECTAvita Health SystemIMP (blaIMP) Carbap Res Gene (PCR)Not detected NOT DETECTKettering Health TroyKlebsiella aerogenes (PCR)Not detectedNOT DETECTKettering Health TroyKlebsiella oxytoca (PCR)Not detectedNOT DETECTKettering Health TroyKlebsiella pneumoniae group (PCR)Not detectedNOT DETECTKettering Health TroyKPC (blaKPC) Detection (PCR)Not detectedNOT DETECTKettering Health TroyListeria monocytogenes (PCR)Not detectedNOT [facility] CenterMCR-1 Resistance GeneNot detectedNOT [facility] Medical CentermecA/C & MREJ Antimicrob Resist GenNOT APPLICABLENOT [facility] Medical CentermecA/C-Methicillin Resistance GeneNOT APPLICABLENOT [facility] CenterNDM (blaNDM) Detection (PCR)Not detectedNOT DETECTAvita Health SystemNeisseria meningitidis (PCR)Not detectedNOT [facility] CenterProteus species (PCR)Not detectedNOT [facility] CenterPseudomonas aeruginosa (PCR)Not detected NOT DETECTRegency Hospital Toledoalmonella spp. (PCR)Not detectedNOT DETECTRegency Hospital Toledoerratia marcescens (PCR)Not detected NOT DETECTRegency Hospital Toledotaphylococcus aureus (PCR)(LAB)Not detectedNOT DETECTRegency Hospital Toledotaphylococcus epidermidis (PCR)Not detectedNOT DETECTRegency Hospital Toledotaphylococcus lugdunensis (TEM-PCRNot detectedNOT DETECTKettering Health Troy Staphylococcus species (PCR)Not detectedNOT DETECTRegency Hospital Toledotenotroph. maltophilia (PCR)Not detectedNOT DETECTRegency Hospital Toledotreptococcus pneumoniae (PCR)Not detectedNOT DETECTRegency Hospital Toledotreptococcus pyogenes (PCR)(LAB)Not detectedNOT DETECTTriHealth Good Samaritan Hospitaltreptococcus species (PCR)Not detectedNOT [facility] Hospitalyn OXA-48-like Carb Res Gene (PCR)Not detectedNOT [facility] CenterVanA/B-Vancomycin Resistance GenesNOT APPLICABLENOT [facility] CenterVIM (blaVIM) Carbap Res Gene (PCR)Not detectedNOT [facility] CenterNo Panel InformationOrdered By: FABIENJIGNESH RIVERA on 35-83-2514Vlsmcqef Identification OnlyOhiohealth Riverside Methodist HospitalNo Panel InformationOrdered By: Senia Jalloh on 89-79-8231Frqahdnk Identification OnlyOhiohealth Riverside Methodist HospitalPHOSPHORUSon 18-99-6328Ahfzauawy [Mass/Vol]2.8 mg/dLNormal2.4-4.9 ProMedicMedina HospitalComment on above:Performed By: #### BERNARD, 39822-2, ELROY, 48124-8, 2776-, CBCA, 48947-9 #### [facility] ([id number]) [address], [address] [place], [place] [address]UMFURRYHFbn 08-10-4752Mqkqbghzl [Moles/Vol]3.8 mmol/LNormal 3.5-5.0ProMedica Fostoria City HospitalComment on above:Performed By: #### 2823-3 ####[facility] ([id number])[address] [facility], [address], [place] [address]MDYBMAW AND INRon 03-80-3743XWU Coag (PPP) [Relative time]1.2 {INR}High 0.8-1.1PTriHealth McCullough-Hyde Memorial HospitalComment on above:Performed By: #### BERNARD, 69115- 9, CMP, 53742-5, 7-1, CBCA, 51150-7 #### [facility] ([id number]) [address] [facility], [address] [place], [place] [address]WB Coag (PPP) [Time]14.1 sHigh9.8-13.2PTriHealth McCullough-Hyde Memorial Hospital Comment on above:Performed By: #### BERNARD, 65664-5, CMP, 01807-1, 2777-1, CBCA, 68768-8 #### [facility] ([id number]) [address] [facility], [address] [place], [place] [address]Uxoyogtvyyri 84-72-2620Iccbdbpau [Mass/Vol]2.8 mg/dL2.4 - 4.9 mg/dLMount Carmel Health SystemPlatelet mean volume Auto (Bld) [Entitic vol]on 88-34-9401Pxikkwxl mean volume (Bld) [Entitic vol]Platelet mean volume [Entitic volume] in Blood by Automated countLow9.5-13.5FCleveland Clinic [facility] Platelets Auto (Bld) [#/Vol]on 89-15-8746Gchavgvsc (Bld) [#/Vol]Platelets [#/volume] in Blood by Automated qsbhpXiq392-875VgsxcpfgjOhiohealth Riverside Methodist HospitalPotassiumon 05-56-7159Dlebtfvnt [Moles/Vol]3.8 mmol/L3.5 - 5.0 mmol/L [facility] Hamilton SystemPotassium [Moles/Vol]on 04-45-3891FlzOvxpclSelect Medical Specialty Hospital - Cleveland-Fairhill Procalcitoninon 46-71-6973Bhacivwruowxq IA [Mass/Vol]463.36 ng/mLHighNINF - 0.05 ng/mLMount Carmel Health SystemComment on above:NOTE <0.50 ng/mL - Low risk of severe sepsis and/or septic shock. <2.00 ng/mL - Recommend retesting within 6-24 hours. >2.00 ng/mL - High risk of sepsis and/or septic shock. Procalcitonin IA [Mass/Vol]on 63-44-7134Uoqkjdlstjoxil and review of laboratory resultsAbnormalProUc HealthProUc HealthKzcvaoOWBYINOOQJTYC478.36 ng/mLHigh<0.05SCCI Hospital LimaComment on above:Result Comment: NOTE <0.50 ng/mL - Low risk of severe sepsis and/or septic shock. <2.00 ng/mL - Recommend retesting within 6-24 hours. >2.00 ng/mL - High risk of sepsis and/or septic shock.Performed By: #### PINR, 71799-8, CMP, 22143-5, 2777-1, CBCA, 53899-9 #### [facility] ([id number]) [address] [facility], [address] [place], [place] [address]Vzytiab & INRon 50-52-5654QBF Coag (PPP) [Relative time]1.2 {INR}HighKettering Health Hamilton SystemInterpretation and review of laboratory results AbnormalKettering Health Hamilton SystemPT Coag (PPP) [Time]14.1 [facility] Medical CenterRBC Auto (Bld) [#/Vol]on 44-25-6447BMM (Bld) [#/Vol]Erythrocytes [#/volume] in Blood by Automated count4.20-5.40[facility] Segmented neutrophils/100 WBC Manual cnt (Bld)on 97-05-5972Psgcdwmhz neutrophils/100 WBC (Bld)Manual blood segmented neutrophils/100 leukocytes 43.0-75.0Lutheran Hospitalerum or plasma albumin/globulin mass ratioon 57-66-7163Oljjhjz/Globulin [Mass ratio]Serum or plasma albumin/globulin mass ratioLutheran Hospitalerum or plasma anion gap determinationon 53-42-5415Ajqxn gap [Moles/Vol]Serum or plasma anion gap determinationOhiohealth Riverside Methodist HospitalURINALYSISon 86-77-6702Finhovfso Ql (U)NegativeNormalNEGProMedica Cleveland HospitalComment on above:Performed By: #### UA ####[facility] ([id number])[address] [facility], [address] [place] [address]CAIXH/HGBMODERATEAbnormalNEGProMedica Cleveland HospitalComment on above:Performed By: #### UA ####[facility] ([id number])[address] [place] [address], [address] [place] [address]Rpeto (U)BROWNAbnormalYELLOWProMedica Cleveland HospitalComment on above:Performed By: #### UA ####[facility] ([id number]) [facility], [address],[place] [address]Qmlfcqv Ql (U)Negative NormalNEGProMedica Ashraf HospitalComment on above:Performed By: #### UA ####[facility] ([id number])[address], [address],[place] [address]Vwlbinr Ql (U)NegativeNormalNEGProMedica Ashraf HospitalComment on above: Performed By: #### UA ####[facility] ([id number])[address], [address],[place] [address]Umdbjryvn esterase Test strip Ql (U)Large AbnormalNEGProMedica Ashraf HospitalComment on above:Performed By: #### UA ####[facility] ([id number])[address], [address] [address]Vawfdoo Ql (U)NegativeNormalNEGProMedica Ashraf HospitalComment on above: Performed By: #### UA ####[facility] ([id number])[address], [address], [place] [address]oP (U)7.0 [pH]Normal5.0-8.5ProMedica Ashraf HospitalComment on above:Performed By: #### UA ####[facility] ([id number])[address], [address] [address]Qecfvln Ql (U)300 mg/dL AbnormalNEGProMedica Ashraf HospitalComment on above:Performed By: #### UA ####[facility] ([id number])[address], [address] [address]S.B.CELLS>619Zrzd0-7MiuJzsdnb Ashraf HospitalComment on above:Performed By: #### UA ####[facility] ([id number])[address], [address] [address]Ktaoiozo gravity (U) [Rel density]1.213Rxpajz5.003-1.035 ProMedica Ashraf HospitalComment on above:Performed By: #### UA ####[facility] ([id number])[address], [address], [place] [address] TURBIDITYCLOUDYAbnormalCLEARProSamaritan HospitalComment on above:Performed By: #### UA ####[facility] ([id number])[address], [address] [place] [address]Iwfdippozf dipstick W Reflex Microscopic panel (U)URINE RECEIVED WITHOUT PRESERVATIVE-DELAYS IN TRANSPORT MAY AFFECT RESULTS.INTERPRET WITH CAUTION AND CLINICAL CORRELATION IS RECOMMENDED.NormalProSamaritan HospitalComment on above:Performed By: #### UA ####[facility] ([id number])[address], [address] [place] [address]Tldrdwnmfshv (U) [Mass/Vol] mg/dLNormal<1.1ProMedRiverside Methodist HospitalComment on above:Performed By: #### UA ####[facility] ([id number])[address], [address] [place] [address]U.B.CELLS>563They3-5TasXskrrmTriHealth McCullough-Hyde Memorial HospitalComment on above:Performed By: #### UA ####[facility] ([id number])[address], [address] [place] [address]ETL CLUMPSMANYAbnormalNONEPTriHealth McCullough-Hyde Memorial HospitalComment on above:Performed By: #### UA ####[facility] ([id number])[address], [address] [place] [address]XZOXW CULTUREon 80-58-0594Fhrbshed identified Cx Nom (U)CULTURE RESULTS <10,000 ORGANISMS/ML NORMAL URO GENITAL FLORANormalProSamaritan Hospital Comment on above:Performed By: #### PINR, 21884-6, CMP, 70252-3, 2777-1, CBCA, 50376-9 #### [facility] ([id number]) [address] [facility], [address] [place], [place] [address]Runaqmjfxetd 71-81-9441Lfpbywkcv Ql (U)NegativeNegative^Negative ProMmarshall medical center south Health SystemColor (U)BROWNAbnormalYELLOW^YELLOWKettering Health Hamilton SystemGlucose (U) [Mass/Vol]NegativeNegative^Negative mg/dLKettering Health Hamilton SystemHemoglobin Auto test strip Ql (U)MODERATEAbnormalNegative^Negative [facility] Hospitala [facility] SystemInterpretation and review of laboratory resultsAbnormal ProMmedical center barboura Health SystemKetones (U) [Mass/Vol]NegativeNegative^Negative mg/dL [facility] SystemLeukocyte clumps LM Ql (Urine sed)MANYAbnormalNONE^NONE ProMFairmont Hospital and Clinic SystemLeukocyte esterase Auto test strip Ql (U)LargeAbnormal Negative^NegativeKettering Health Hamilton SystemNitrite Auto test strip Ql (U)Negative Negative^NegativeTriHealth Bethes[facility] [employer] Pharm[employer] SystempH (U)7 [pH]5.0 - 8.5PWillis-Knighton Medical Center Health SystemProtein (U) [Mass/Vol]300 mg/dLAbnormalNegative^NegativeKettering Health Hamilton SystemRBC Auto (Urine sed) [#/Area]Free Hospital for WomenGlucoTec Guthrie Corning Hospitalpecific gravity Refractometry automated (U) [Rel density]1.0351.003 - 1.035K[facility] Hamilton SystemTurbidity Ql (U)CLOUDYAbnormalCLEAR^CLEARKettering Health Hamilton SystemUrinalysis microscopic panel Auto (Urine sed) [#/Area]URINE RECEIVED WITHOUT PRESERVATIVE- DELAYS IN TRANSPORT MAY AFFECT RESULTS.INTERPRET WITH CAUTION AND CLINICAL CORRELATION IS RECOMMENDED.[facility] [employer] SystemUrobilinogen Qn (U)NINF [facility] [employer] [facility] HospitalWBC Auto (Urine sed) [#/Area][facility] ProMmedical center barboura Health SystemXR CHEST 1 VWon 51-36-1180XK CHEST 1 VWXR CHEST 1 VW Single view chest XR CHEST 1 VW History: central venous line placement verification Comparison: May 21 at 4:24 AM current examination 2:20 PM Impression: * No consolidation or pleural fluid. No acute findings. * Central line placed at the superior vena cava. Poor inspiration without acute disease. No pneumothorax. Finalized by Jorge Mcdaniels MD on 05/21/2024 2:30 PMNormalProSamaritan HospitalXR Chest Single viewon 95-29-3578Uyjfap view chest XR CHEST 1 VW History: central venous line placement verification Comparison: May 21 at 4:24 AM current examination 2:20 PM Impression: * No consolidation or pleural fluid. No acute findings. * Central line placed at the superior vena cava. Poor inspiration without acute disease. No pneumothorax. Finalized by Jorge Mcdaniels MD on 05/21/2024 2:30 PMSECTRAJorge Mccabe MD - 05/21/2024 Single view chest XR CHEST 1 VW History: central venous line placement verification Comparison: May 21 at 4:24 AM current examination 2:20 PM Impression: * No consolidation or pleural fluid. No acute findings. * Central line placed at the superior vena cava. Poor inspiration without acute disease. No pneumothorax. Finalized by Jorge Mcdaniels MD on 05/21/2024 2:[address] [facility] God HospitalDNART LIMITADA [facility] HospitalRadiology Study observation (narrative)[facility] SystemXR Chest Single viewOrdered By: Jorge Mcdaniels on 14-04-0506WrhThtmoy [employer] [facility] Work Phone: aPTT Coag (PPP) [Time]on 03-14-8359dZFN Coag (Bld) [Time]29 uQjptbe78-38WjsUpnzjkSCCI Hospital LimaComment on above:Performed By: #### PINR, 97584-7, CMP, 29726-4, 2777-1, CBCA, 41825-9 #### [facility] ([id number]) [address] [facility], [address] [place], [place] [address]Gdbogvqjn virus B Ag [Presence] in Upper respiratory specimen by Rapid immunoassayon 83-62-0645QROTV Ag IA.rapid Ql (Nph)PositiveOhiohealth Riverside Methodist HospitalNo Panel Informationon 59-48-5209Tfxvtcxnl Type A (Rapid) NegativeOhiohealth Riverside Methodist HospitalPO SARS CoV-2 AntigenNegativeOhiohealth Riverside Methodist HospitalXR KUB 1 VIEWon 82-33-7746XM KUB 1 VIEWEXAMINATION: XR KUB 1 VIEW HISTORY: Kidney stone [...] Electronically authenticated by: TOM NEAL Date: 2022-08-09 08:[address] [place] [address] CBC AUTO DIFFon 80-11-6096ICUU #0.0 103/ulNormal 0.0-0.1[facility] System East CampusComment on above:Performed By: #### HFPFCBC #### [facility] [address] [place] [address] Dr. Caitlin WinstonBasophils/100 WBC (Bld)0.4 %Normal0.2-2.0[facility] Comment on above:Performed By: #### HFPFCBC #### [facility] [address] [place] [address] Dr. Caitlin Pritchard #0.2 103/ulNormal0.0-0.7The Wilson HealthComment on above: Performed By: #### HFPFCBC #### [facility] [address] [place] [address] Dr. Caitlin Harmanosinophils/100 WBC (Bld)2.5 %Normal0.9-7.0[facility] Comment on above:Performed By: #### HFPFCBC #### [facility] [address] [place] [address] Dr. Caitlin Harmanrythrocyte distribution width (RBC) [Ratio]13.5 %Ufrhqo09.0-15.0 [facility] CampusComment on above:Performed By: #### HFPFCBC #### [facility] [address] [place] [address] Dr. Caitlin WinstonHematocrit (Bld) [Volume fraction]41.9 %Udtaql35.0-48.0[facility] System [facility] CampusComment on above:Performed By: #### HFPFCBC #### [facility] [address] [place] [address] Dr. Caitlin WinstonHemoglobin (Bld) [Mass/Vol]13.7 g/fSGgqaix33.0-16.0The Concord HospitalComment on above:Performed By: #### HFPFCBC #### [facility] [address] [place] [address] Dr. Caitlin Carson #0.01 10e3/ulNormal0.00-0.03The Concord HospitalComment on above:Performed By: #### HFPFCBC #### [facility] [address] [place] [address] Dr. Caitlin Carson %0.1 %Normal0.0-0.5The Wilson HealthComment on above: Performed By: #### HFPFCBC #### [facility] [address] [place] [address] Dr. Caitlin Torres #3.2 103/ulNormal1.2-3.8The Wilson HealthComment on above:Performed By: #### HFPFCBC #### [facility] [address] [place] [address] Dr. Caitlin Richeyhocytes/100 WBC (Bld)42.0 %Eymhse52.5-60.0The Wilson HealthComment on above:Performed By: #### HFPFCBC #### [facility] [address] [place] [address] Dr. Caitlin Rowell (RBC) [Entitic mass]29.4 phMhxkei10.7-34.0The Wilson HealthComment on above:Performed By: #### HFPFCBC #### [facility] [address] [place] [address] Dr. Caitlin Ingram (RBC) [Mass/Vol]32.7 g/cWStsczg20.9-35.2The Wilson HealthComment on above:Performed By: #### HFPFCBC #### [facility] [address] [place] [address] Dr. Caitlin Woodson (RBC) [Entitic vol]89.9 sKLmafqp25.0-99.0The Wilson HealthComment on above:Performed By: #### HFPFCBC #### [facility] [address] [place] [address] Dr. Caitlin Salas #0.5 103/ulNormal0.3-0.8The Wilson HealthComment on above:Performed By: #### HFPFCBC #### [facility] [address] [place] [address] Dr. Caitlin Kempocytes/100 WBC (Bld)7.1 %Normal1.7-12.0The [facility] Comment on above:Performed By: #### HFPFCBC #### [facility] [address] [place] [address] Dr. Caitlin Abraham #3.6 103/ulNormal1.4-6.5The Wilson HealthComment on above:Performed By: #### HFPFCBC #### [facility] [address] [place] [address] Dr. Caitlin Kennyutrophils/100 WBC (Bld)47.9 %Ygighn64.0-75.0The Wilson HealthComment on above:Performed By: #### HFPFCBC #### [facility] [address] [place] [address] Dr. Caitlin Lee mean volume (Bld) [Entitic vol]9.2 fLCritically low 9.5-13.5The Wilson HealthComment on above:Performed By: #### HFPFCBC #### [facility] [address] [place] [address] Dr. Caitlin WinstonPLT203 103/rjInvfez486-878Rpm Wilson HealthComment on above: Performed By: #### HFPFCBC #### [facility] [address] [place] [address] Dr. Caitlin WinstonRBC4.66 106/ulNormal4.20-5.40The Wilson HealthComment on above:Performed By: #### HFPFCBC #### [facility] [address] [place] [address] Dr. Caitlin WinstonWBC7.6 103/ulNormal4.0-11.0The Wilson HealthComment on above: Performed By: #### HFPFCBC #### [facility] [address] [place] [address] Dr. Caitlin WinstonHEALTHFAIR PROFILEon 55-04-0364Ygtaqxo [Mass/Vol]3.6 g/dLNormal 3.4-5.0The Wilson HealthComment on above:Performed By: #### HFPF #### [facility] [address] [place] [address] Dr. Caitlin WinstonAlbumin/Globulin [Mass ratio]0.9 {ratio}NormalThe Wilson HealthComment on above:Performed By: #### HFPF #### [facility] [address] [place] [address] Dr. Caitlin KelleyP [Catalytic activity/Vol]87 U/PJvqrav94-192Eqw Wilson HealthComment on above:Performed By: #### HFPF #### [facility] [address] [place] [address] Dr. Caitlin KelleyT [Catalytic activity/Vol]20 U/EHbmook22-93Vrb Wilson HealthComment on above:Performed By: #### HFPF #### [facility] [address] [place] [address] Dr. Caitlin WinstonAST [Catalytic activity/Vol]15 U/VNdozwg46-52Hmy Wilson HealthComment on above:Performed By: #### HFPF #### [facility] [address] [place] [address] Dr. Caitlin WinstonBilirubin [Mass/Vol]0.4 mg/dLNormal0.2-1.0The [facility] Comment on above:Performed By: #### HFPF #### [facility] [address] [place] [address] Dr. Caitlin WinstonCalcium [Mass/Vol]8.7 mg/dLNormal8.5-10.1The [facility] Comment on above:Performed By: #### HFPF #### [facility] [address] [address] [address] Caitlin WinstonChloride [Moles/Vol]102 mmol/PAmlyrf56-533Djo [facility] Comment on above:Performed By: #### HFPF #### [facility] [address] [address] [address] Caitlin WinstonCHOL-HDL RATIO NORMSEE BELOWMiami Valley HospitalComment on above:Result Comment: 3.3 - 4.4 LOW RISK 4.4 - 7.1 AVERAGE RISK 7.1 - 11.0 MODERATE RISK >11.0 HIGH RISKPerformed By: #### HFPF #### [facility] [address] [place] [address] Dr. Caitlin WinstonCholesterol [Mass/Vol]180 mg/dLNormal<=200The [facility] Comment on above:Performed By: #### HFPF #### [facility] [address] [place] [address] Dr. Caitlin WinstonCholesterol in HDL [Mass/Vol]57 mg/vJWptqbh69-31Znf Wilson HealthComment on above:Performed By: #### HFPF #### [facility] [address] [place] [address] Dr. Caitlin WinstonCholesterol in LDL [Mass/Vol]107.8 mg/dLMiami Valley HospitalComment on above:Performed By: #### HFPF #### [facility] [address] [place] [address] Dr. Caitlin Alexanderesterrafy.total/Cholesterol in HDL [Mass ratio]3.2 {ratio} NormalTrinity Health System East CampusComment on above:Performed By: #### HFPF #### [facility] [address] [place] [address] Dr. Caitlin WinstonCO2 [Moles/Vol]28.3 mmol/NOqhikd77.0-32.0The [facility] Comment on above:Performed By: #### HFPF #### [facility] [address] [place] [address] Dr. Yilan ChangCreatinine [Mass/Vol]0.63 mg/dLNormal0.55-1.02Tr[facility] Health System East CampusComment on above:Performed By: #### HFPF #### [facility] [address] [address] [address] Caitlin WinstonGlobulin (S) [Mass/Vol]3.8 g/dLMiami Valley HospitalComment on above:Performed By: #### HFPF #### [facility] [address] [address] [address] Caitlin WinstonGlucose [Mass/Vol]96 mg/qYWuknks68-984BooTrinity Health System East Campus Comment on above:Performed By: #### HFPF #### [facility] [address] [place] [address] Dr. Caitlin Ramos NORMAL> or = 60 mg/dl - LOW CARDIOVASCULAR RISK <40 mg/dl - HIGH CARDIOVASCULAR RISKMiami Valley HospitalComment on above:Performed By: #### HFPF #### [facility] [address] [address] [address] Caitlin WinstonLDL CALC NORMALSEE BELOWMiami Valley HospitalComment on above:Result Comment: <100 mg/dl OPTIMAL 100 - 129 mg/dl NEAR OR ABOVE OPTIMAL 130 - 159 mg/dl BORDERLINE HIGH 160 - 189 mg/dl HIGH >190 mg/dl VERY HIGH Performed By: #### HFPF #### [facility] [address] [address] [address] Caitlin WinstonPotassium [Moles/Vol]3.9 mmol/LNormal3.5-5.1The [facility] Comment on above:Performed By: #### HFPF #### [facility] [address] [address] [address] Caitlin WinstonProtein [Mass/Vol]7.4 g/dLNormal6.4-8.2[facility] Comment on above:Performed By: #### HFPF #### [facility] [address] [place] [address] Dr. Caitlin WinstonSodium [Moles/Vol]139 mmol/UDisyab349-646HhtTrinity Health System East Campus Comment on above:Performed By: #### HFPF #### [facility] [address] [address] [address] Caitlin WinstonTriglyceride [Mass/Vol]76 mg/dLNormal<=150The [facility] Comment on above:Performed By: #### HFPF #### [facility] [address] [address] [address] Caitlin WinstonTSH2.462 uIU/mLNormal0.358-3.740The Wilson HealthComment on above:Performed By: #### HFPF #### [facility] [address] [address] [address] Caitlin WinstonUrea nitrogen [Mass/Vol]23.0 mg/dLCritically high7.0-18.0Tr[facility] Health System East CampusComment on above:Performed By: #### HFPF #### [facility] [address] [address] [address] Caitlin Valencia nitrogen/Creatinine [Mass ratio]36.5 mg/mgNoCherrington HospitalComment on above:Performed By: #### HFPF #### [facility] [address] [address] [address] Caitlin WinstonVLDL CALC15.2 mg/dLNoCherrington HospitalComment on above: Performed By: #### HFPF #### [facility] [address] [address] [address] Caitlin WinstonOperative Reporton [id number] ReportMR#: [id number] S [facility] Pt. Name: Sharri Murillo Room #: 0C [...] diameter, was closed by 1-0 PDS interrupted wzfcyw-mr-wxgdb sutures. Without significant tension. The inferior fascial defect is 5 cm in diameter. Which was closed by 1-0 PDS interrupted ojeplj-lq-uxazj sutures without tension. Subcutaneous wound was irrigated with copious normal saline. Incision was closed by skin diana. Operation was completed without complication, I was present the entire operation, minimal blood loss, omentum was sent for permanent pathology. Instrument count and sponge count were correct. Electronically Signed by: Sidney Pagan M.D. 02/25/2021 01:44 P Sindey Pagan M.D. Date Dict: 02/25/2021/01:27 P/Sidney Pagan M.D. Date Trans: 02/25/2021 01:27 P/ OMID_JN:[id number] Health Main Campus GLUCOSE LAB on 57-60-8528Zizdpuc [Mass/Vol]90 mg/zJLrcohr31-735Erb [facility] HospitalComment on above:Performed By: #### [id number] #### [address] [address], USACT ABDOMEN AND PELVIS W ORAL CONTRASTon 31-62-8578ML ABDOMEN AND PELVIS W ORAL CONTRASTUnMount St. [facility] Department of Radiology [address] [place] [id number] Patient Name: SHARRI MURILLO : 1955 Sex: F Age: Race: White Pt. Location: Patient Status: D Ordered Date: 01/05/2021 9:35:00 AM Completed Date: 01/14/2021 08:25 AM Requesting Provider: SIDNEY PAGAN Attending Provider: SIDNEY PAGAN Report Copy To: OLMAN SHOEMAKER Signs & Symptoms: K43.9 Ventral hernia without obstruction or gangrene I10 History: Saritha [phone] patient will need to come early to drink [employer] auth [id number] valid 01/07/2021-02/21/2021 per [employer]ore [id number] *kw Comments: Exam: CT ABDOMEN AND PELVIS W ORAL CONTRAST CT ABDOMEN AND PELVIS W ORAL CONTRAST [...] * Status post cholecystectomy. Electronically signed: Jill Melvin. Transcribed by: [id number], User Resident: Electronically Signed by: JILL MELVIN @ 01/15/2021 08:38 AMNormalThe [facility] Vital Signs Date TimeVital SignValuePerforming XdutrwbqcTmlroggo66-63-9415 12:14-0400Body .2 cmAleksandra Sandoval MD Work Phone: [facility]07-16-2025 12:14-0400Body mass index (BMI) [Ratio]49.18 kg/q0ZyzdxdrAleksandra Sandoval MD Work Phone: [facility]07-16-2025 12:14-0400Body qalnpt257.43 kgAleksandra Sandoval MD Work Phone: [facility]07-16-2025 12:14-0400Diastolic blood fmqmxkju69 mm[Hg]Aleksandra Sandoval MD Work Phone: [facility] SystemComment on above:Pt. states they had a difficult drive to this office.02-05-2025 12:14-0400Heart rate73 /min Aleksandra Sandoval MD Work Phone: [facility]07-16-2025 12:14-0400Systolic blood omynxtwi849 mm[Hg]Aleksandra Sandoval MD Work Phone: [facility] SystemComment on above:Pt. states they had a difficult drive to this office.12-31-2024 13:52-0400Body bxtpze921.2 cmAleksandra Sandoval MD Work Phone: [facility]06-10-2025 13:52-0400Body mass index (BMI) [Ratio]49.18 kg/l6NhpwbhqAleksandra Sandoval MD Work Phone: [facility] [employer] [phone] 13:52-0400Body udcfhq000.43 kgAleksandra Sandoval MD Work Phone: [facility]04-30-2025 10:57-0400Body lhvmxy985.2 cmLoc PIKE Work Phone: [facility]04-30-2025 10:57-0400Body mass index (BMI) [Ratio]49.18 kg/d1FrzraywgLoc PIKE Work Phone: [facility] [employer] Esuogx17-00-9216 10:57-0400Body hufwcj260.43 kgLoc PIKE Work Phone: [facility]04-30-2025 10:57-0400Diastolic blood tnstofwa04 mm[Hg]Loc PIKE Work Phone: [facility]04-30-2025 10:57-0400Heart rate 69 /minLoc PIKE Work Phone: [facility]04-30-2025 10:57-0400Systolic blood knsqjtda886 mm[Hg]Loc PIKE Work Phone: [facility]01-24-2025 13:51-0500Body zhpouj331.18 cmOhio[facility]01-24-2025 13:51-0500Body mass index (BMI) [Ratio]48.9 kg/i4BchhaeawrOhiohealth Riverside [facility] Hospital01-24-2025 13:51-0500Body ibkzsv926.52 kgOhiohealth [facility]ide [facility] Hospital01-24-2025 13:51-0500Diastolic blood xlumxfbm06 mm[Hg][facility] 08-16-2024 13:51-0500Heart rate89 /minOhiohealth Riverside Methodist Hospital 08-16-2024 13:51-0500Systolic blood urivjvhu499 mm[Hg][facility]12-31-2024 11:08-0500Diastolic blood shsaiywg16 mm[Hg][address]12-31-2024 11:08-0500Systolic blood mm[Hg][address]12-31-2024 11:00-0500Body wdpkgukdjej66.7 [degF][address]12-31-2024 11:00-0500Heart rate70 /minMetro [address] [place], [place] 360[address]12-31-2024 11:00-0500Respiratory rate20 /minMetro [address] [place], [place] [address]12-31-2024 11:00-3426AqN2% (BldA) [Mass fraction]96 %[address]12-31-2024 10:45-0500Body hwlkip366.[address]12-31-2024 10:45-0500Body mass index (BMI) [Ratio]49.31 kg/q5Wvxaw[address]12-31-2024 10:45-0500Body dtbrmy886.[address]11-07-2024 14:26-0500Body mass index (BMI) [Ratio]48.6 kg/m2 [facility]11-07-2024 14:26-0500Body zqulql698.06 kg [facility]11-07-2024 14:26-0500Diastolic blood unkqhzev73 mm[Hg][facility]11-07-2024 14:26-0500Heart rate99 /min [facility]11-07-2024 14:26-0500Systolic blood fbosbudq633 mm[Hg][facility]11-07-2024 09:12-0500Body znjxju198.18 cmOhiohealth [facility]ide [facility] Hospital11-03-2024 13:00-0500Heart rate82 /minTabby Iqbal MD Work Phone: 1(128)315-[address] [place], [place] 18[address]11-03-2024 13:00-0500 Respiratory rate18 /Emiliano Iqbal MD Work Phone: 1(000)447-[address] [place], [place] [address]11-03-2024 13:00-0597DmM4% (BldA) [Mass fraction]96 %Tabby Iqbal MD Work Phone: [facility]11-03-2024 11:15-0500Diastolic blood eqcxormr03 mm[Hg]Tabby Iqbal MD Work Phone: [facility]11-03-2024 11:15-0500Systolic blood mm[Hg]aTbby Iqbal MD Work Phone: 1(607)679-[address] [place], [place] 18[address]11-03-2024 07:45-0500Body hxaapsiyqbc51.9 [degF]Tabby Iqbal MD Work Phone: 1(560)535-[address] [place], [place] [address]11-03-2024 05:00-0500Body mass index (BMI) [Ratio]49.24 kg/q1RebozTabby Iqbal MD Work Phone: [facility]11-03-2024 05:00-0500Body cesfje690.9 kgTabby Iqbal MD Work Phone: [facility]10-29-2024 18:06-0400Body mjaata524.7 Micky Iqbal MD Work Phone: [facility]10-24-2024 10:44-0400Body dembvo035.18 cmOhiohealth [facility]ide [facility]10-24-2024 10:35-0400Body mass index (BMI) [Ratio]51 kg/t1YylymjgmqOhiohealth Riverside Methodist Hospital10-24-2024 10:35-0400Body aimdnd630.87 kgOhiohealth Riverside [facility] Hospital10-24-2024 10:35-0400Diastolic blood plyewntg17 mm[Hg][facility] 05-16-2024 10:35-0400Heart rate77 /minOhiohealth Riverside Methodist Hospital 05-16-2024 10:35-0400Systolic blood bsyfxnhy256 mm[Hg][facility]06-25-2024 09:18-0400Blood Pressure LocationJENNIFER ADRIAN [facility]06-25-2024 09:18-0400Diastolic blood mtidljgf28 mm[Hg]THUY ADRIAN [facility]06-25-2024 09:18-0400Heart rate68 /minJENNIFER ADRIAN [facility]06-25-2024 09:18-0400Respiratory rate16 /minJENNIFER ADRIAN [facility]06-25-2024 09:18-0400Systolic blood mm[Hg]THUY ADRIAN [facility]04-03-2024 09:30-0400Body koyice982.18 cmOhiohealth [facility]ide [facility]04-03-2024 09:30-0400Body mass index (BMI) [Ratio]51.2 kg/l1ByctzihxuOhiohealth Riverside [facility] Hospital04-03-2024 09:30-0400Body pkpxhu951.32 kgOhiohealth [facility]ide [facility] Hospital04-03-2024 09:30-0400Diastolic blood tahcqsty17 mm[Hg] [facility]04-03-2024 09:30-0400Heart rate95 /[facility]04-03-2024 09:30-2365PpU9% (BldA) [Mass fraction]96 % [facility]04-03-2024 09:30-0400Systolic blood mm[Hg][facility]03-23-2024 12:49-0400Body tueymp536.18 cm [facility]03-23-2024 12:49-0400Body mass index (BMI) [Ratio]52 kg/e8YockjabuaOhiohealth Riverside Methodist Hospital03-23-2024 12:49-0400Body llxfgkaftrl86.4 [degF][facility]03-23-2024 12:49-0400Body qgifeu852.59 kgOhiohealth Riverside [facility] Hospital03-23-2024 12:49-0400Heart rate 64 /[facility]03-23-2024 12:49-0400Respiratory rate18 /[facility]03-23-2024 12:49-6372LiN1% (BldA) [Mass fraction]97 %[facility] Encounters Encounter DateEncounter TypeCare ProviderFacilityStart: 04-08-2025 End: 48-77-3012Zinlpqdo ReferredOUTREACH COMMUNITY-[facility] Work Phone: Start: 04-08-2025 End: 17-28-4666euhvofiwxeErttgp E Braun MD Work Phone: [facility] Work Phone: Start: 02-05-2025 End: 30-30-3951Ybqksw outpatient visit 15 minutesAleksandra Sandoval MD Work Phone: [facility] Genito-Urinary SurgeonsComment on above:Mineral metabolism disorder (Primary Dx)Start: 02-05-2025 End: 65-76-0296zjohpsdntkBSKRIRH G [facility] PPGStart: 12-31-2024 End: 29-49-9804Hqtaedpml encounterAleksandra Sandoval MD Work Phone: [facility] Genito-Urinary SurgeonsStart: 12-31-2024 End: 96-65-1919Xaxjrl outpatient visit 25 minutesAleksandra Sandoval MD Work Phone: [facility] Phys[facility] Genito-Urinary SurgeonsComment on above:Mineral metabolism disorder (Primary Dx); Kidney stoneStart: 12-31-2024 End: 48-22-8531wwqehuirmdTEAKBAB G [facility] PPGStart: 12-06-2024 End: 53-94-0148qfobehylltQOPPRYOSFayette County Memorial Hospitaltart: 11-20-2024 End: 21-33-1164Nbnebbjfx encounterLoc PIKE Work Phone: [facility] Phys[facility] Genito-Urinary SurgeonsStart: 16-20-9780phnmyvbzkmUNEOOFMNFayette County Memorial Hospitaltart: 11-20-2024 End: 75-63-4191Bnzcjo outpatient visit 25 minutesLoc PIKE Work Phone: [facility] Physicians Genito-Urinary SurgeonsComment on above:Kidney stones (Primary Dx); Pelvicaliectasis; Kidney stoneStart: 11-20-2024 End: 40-40-4710aqayaerjepKAZVPSLVHospital Sisters Health [facility] PPG Start: 11-11-2024 End: 22-56-6693ewxlfzhnbjNDXMSM M [facility] Daytontart: 09-11-2024 End: 78-70-1860Lxunecvrb encounterEsme Chen MD Work Phone: [facility] Genito-Urinary SurgeonsStart: 09-11-2024 End: 45-04-0001Hiogpjyvyh and management of inpatientESME CHAUHANLARRYSt. Rita's Hospital HospitalStart: 08-22-2024 End: 01-08-6650sliwsyplseZLWBPO M RAGHAVANDayton Children's Hospitaltart: 08-16-2024 End: 79-05-3073mcfaubovsnTnsowmrjwKettering Health Miamisburg Work Phone: Start: 08-16-2024 End: 89-63-9383Nsjcfzg encounter procedureFormerly [facility] Physician GroupSelect Medical [facility] Work Phone: Start: 08-09-2024 End: 24-77-6924Wvhmnmllo encounterEsme Chen MD Work Phone: [facility] Genito-Urinary SurgeonsStart: 08-08-2024 End: 15-24-9453nikvflwmqyNUOZST M RAGHAVANCleveland Clinic Mercy Hospitaltart: 08-08-2024 End: 68-59-2585Ytcvzsxbim and management of inpatientESME Morfin AMBERAvita Health System Ontario Hospitalca [facility] HospitalStart: 07-23-2024 End: 36-81-8170biwadzhuvfSIBGWI M AMBERSt. Rita's Hospital HospitalStart: 07-23-2024 End: 56-35-1286Pfgasug encounter procedureMetro Pat Provider 1ProMedchaparro [facility] On [facility] HospitalComholland hospital on above:Hypokalemia (Primary Dx); Calculus of ureterovesical junction (UVJ)Start: 06-29-2024 End: 48-32-8828Kawapgtes encounterEsme Chen MD Work Phone: [facility]Prem[facility] Intra OperativeStart: 06-27-2024 End: 95-63-7720dgtbjfsewaLTSCQS Navjot GISSELLARRYAvita Health System Ontario Hospitalca [place] HospitalStart: 06-18-2024 End: 40-55-1411nnhffxssupPWDNTK E BRAUNProMedica [facility]utter [facility] Pacific Medical Centertart: 06-14-2024 End: 55-08-4476Ftokzyyls to establishmentMetro Pat Phone Call Provider 2 ProMkiesha [facility] On [facility] Hospitaltart: 06-14-2024 End: 20-46-0676Sudbniydoj and management of inpatientMARCIA E BRAUNProMedica Cleveland HospitalStart: 06-06-2024 End: 80-78-3362Kmcfjb Lizz Rodrigesjosh ELIZONDO-CIVIL ENGINEERING DRAFTSPERSON Work Phone: [facility] Infectious DiseaseComment on above:Bacteremia (Primary Dx)Start: 05-30-2024 End: 65-78-6802Aixehgp encounter procedureFormerly [facility] Work Phone: Start: 05-27-2024 End: 77-53-4895Xhakgivub encounterMicnavid Messina RMAProMedchaparro Physicians Genito- Urinary SurgeonsStart: 65-65-1036Xjr-patient / Non-visitFormerly [facility] Work Phone: Start: 05-23-2024 End: 23-33-1388Zlvrclxrw encounterEsme Chen MD Work Phone: [facility] Genito-Urinary SurgeonsStart: 32-65-5178Mdioflk encounter [facility] Hospitaltart: 60-15-8425Tes-patient / Non-visitFormerly [facility] Physician GroupBrown Memorial Hospital [facility] Work Phone: Start: 05-21-2024 End: 49-52-1559Cpiqlvjrxr and management of inpatientREBECCA S [facility] Hospitaltart: 13-41-5760dkmfxueyelFYJQBOProvidence [facility] Ambulatory PPGStart: 05-21-2024 End: 39-71-2446Npinrciazl and management of inpatientCHRISTOPHER EWMercy Health [facility]field Hospital HospitalStart: 05-21-2024 End: 15-74-3709Llcxvnpehe and management of inpatientEmile Eli MENDOZA Work Phone: [facility] - GEN 9 ICUComment on above: Septic shock ([facility]) (Primary Dx); E coli bacteremia; NephrolithiasisStart: 76-04-7964Aov-patient / Non-visitFormerly [facility] Physician GroupConfluence Health Professional Co Work Phone: Start: 05-16-2024 End: 55-53-4679ruyycemvpzWqquifyqdWestern Reserve Hospital Work Phone: Start: 05-16-2024 End: 10-12-8662Doshcdo encounter procedureDonyas Physician Group[facility] Work Phone: Start: 01-16-2024 End: 65-49-0442dafadxmfzsSZZJRQYF E PERRYFacility:EU BellevueStart: 01-16-2024 End: 24-72-2155Lkkapdi encounter procedureJENNIFER E ADRIAN [facility] start: 10-25-2023 End: 36-10-5461mzimoodsygPecidztucKettering Health Miamisburg Work Phone: Start: 10-25-2023 End: 31-77-9413Uggdsyg encounter procedureJosh [facility] Work Phone: Start: 10-14-2023 End: 99-53-8006ltjpqhhvmwOwmttaxfkKettering Health Miamisburg Work Phone: Start: 10-14-2023 End: 88-14-2043Nzyrfpd encounter procedureDonya Physician [facility] Work Phone: Start: 03-14-2023 End: 31-74-8295idusplbejuEhwsnn Braun Other [employer] Other Start: 95-85-7313Dgxhabcyn encounterMarcia SaharaBrown Memorial Hospitaltart: 03-09-2023 End: 91-72-8377bqkfiwtrztTtnamc Sahara Other noethority [employer] Other Start: 52-98-7601Xammknfta encounterMarcia [facility] Medical Centertart: 02-16-2023 End: 71-54-2217dsylanqpevBnwqou Braun Other [employer] Other Start: 96-43-2194Yicsulkjy encounterOlman Shen [facility] ClinicStart: 02-09-2023 End: 81-61-6546kycrpnuzmtSojfiv Braun Other Nort [employer] Other Start: 61-55-0796Ksdjuuehx encounterOlman Shen [facility] ClinicStart: 08-10-2022 End: 19-30-2794Npy Drop offJENNIFER E ADRIAN [facility] Start: 08-08-2022 End: 91-91-2290uyyeatppytWU DOCTOR MISCFacility:I7Lugyx: 03-10-2022 End: 17-97-7121lpkngnhcpkEH OLMAN SHOEMAKERFacility:O0Ajiho: 02-22-2021 End: 44-76-9722vghuwqvjvnCWJRFJW TANGFacility:[facility]tart: 01-14-2021 End: 04-65-9625jfpjqpufneURCBIHT TANGFacility:[facility] Procedures DateProcedureProcedure DetailPerforming ClinicianStart: 75-58-7052Vgbbml-up visitFollow-upMICHELLE I MURPHYStart: 16-31-3696Wgwpb metabolic panel calcium totalDiana L Perea FILLETER-CIVIL ENGINEERING DRAFTSPERSON Work Phone: Start: 92-79-4251Wgikgnn bacterial quanttative colony count urineEsme Chen MD Work Phone: Start: 91-01-0216Joyku dip stick/tablet rgnt auto w/o microscopyEsme Chen MD Work Phone: Start: 58-64-6695Xpplb depression screening assessment Esme Chen MD Work Phone: Start: 15-51-4622Bcaiu metabolic panel calcium total Lesvia Andrews MD Work Phone: Start: 83-12-4190Czdglmplu serum plasma/whole blood Ralph Wei Avasilcai FILLETER-CIVIL ENGINEERING DRAFTSPERSON Work Phone: Start: 99-75-4820Qttmm metabolic panel calcium total Lesvia Andrews MD Work Phone: Start: 49-62-1764Uzmciyvnm serum plasma/whole blood Thuy Cruz Elizabet FILLETER-CIVIL ENGINEERING DRAFTSPERSON Work Phone: Start: 05-24-2024 End: 15-13-0758Jovipzzklknci metabolic panelRyan Benitez MD Work Phone: Start: 50-58-6859Ukayvuilx serum plasma/whole blood Ryan Benitez MD Work Phone: Start: 17-37-7183Yjlymkueg serum plasma/whole blood Melissa Arana FILLETER-CIVIL ENGINEERING DRAFTSPERSON Work Phone: Start: 81-99-5223Crmkokp bacterial blood aerobic w/id isolatesBerpritesh Boyd FILLETER-CIVIL ENGINEERING DRAFTSPERSON Work Phone: Start: 93-36-4389Fpkkajogowemx metabolic panelCristian Petrisor Avasilcai FILLETER-CIVIL ENGINEERING DRAFTSPERSON Work Phone: Start: 05-22-2024 End: 38-35-8190Yzzytidpxcsib metabolic panelCristian Petrisor Avasilcai FILLETER-CIVIL ENGINEERING DRAFTSPERSON Work Phone: Start: 11-86-2094Uguvzsibf serum plasma/whole blood Ruel Benji FILLETER-CIVIL ENGINEERING DRAFTSPERSON Work Phone: Start: 44-40-5497Lhnky dip stick/tablet rgnt auto w/o microscopyMojohnny Thompson MD Work Phone: Start: 13-66-8149Rwsr nephrostomy cath prq new access rs&iRebeckimberly PIKE Work Phone: Start: 33-20-6976Fpjow of lactateCristian Petrisor Avasilcai FILLETER-CIVIL ENGINEERING DRAFTSPERSON Work Phone: Start: 05-21-2024 End: 70-92-6887Hikjrzm bacterial quanttative colony count urineCristian Petrisor Avasilcai FILLETER-CIVIL ENGINEERING DRAFTSPERSON Work Phone: Start: 22-98-7955Bthbtiqevt exam chest single view Dana Reynoso FILLETER-CIVIL ENGINEERING DRAFTSPERSON Work Phone: Start: 05-21-2024 End: 64-22-5842Mjkv cathj/cannulj mntr/transfusion spx prqEvan Prielipp FILLETER-CIVIL ENGINEERING DRAFTSPERSON Work Phone: Start: 70-16-0396Uwg routine ecg w/least 12 lds trcg only w/o i&rCristian Eriberto Arriagaasilcai FILLETER-CIVIL ENGINEERING DRAFTSPERSON Work Phone: Start: 51-25-5744RVAU ARTERIAL LINE SETUPEvan Prielipp FILLETER-CIVIL ENGINEERING DRAFTSPERSON Work Phone: Start: 56-95-5818Ltyerbdf Identification OnlyStart: 05-21-2024 End: 11-23-0442Haieoosvglrgn metabolic panelCristnya Whitley FILLETER-CIVIL ENGINEERING DRAFTSPERSON Work Phone: Start: 31-43-3865Zeijz depression screening assessment Esme Chen MD Work Phone: Start: 44-97-8501CNFQLC REPAIR OF HERNIAJIANLIN PAGAN Start: 25-52-5221GMXNXTEN VENTRL DENTON REDUCEJIANLIN TANGStart: 02-03-2020 Extracorporeal shockwave lithotripsy of calculus of kidneyJENNIFER ADRIAN Start: 11-63-7203Hnrkalp of arthroplasty of left knee THUY ADRIAN Start: 34-01-9675Smeqi replacement of right knee joint THUY ADRIAN Comment on above:UTMCStart: 62-54-9907Zqz-surgery evaluationMarciandrew Shoemaker Other Start: 17-88-4232Djqlryrnd mammographyChrystalciandrew Shoemaker Other CholecystectomyJENNIFER ADRIAN HysterectomyJENNIFER ADRIAN Removal of sutureMarcia Shoemaker Other Repair of right inguinal herniaJENNIFER ADRIAN Comment on above:unknown year Plan of Treatment DateCare ActivityDetailAuthorStart: 02-16-2026 End: 40-87-8648Mbyndbk encounter ayzzgsphk32/27/2026 1:00 PM EDT Office Visit [facility] [address] [place] [address] [place] [facility] [place] [address] Aleksandra Sandoval MD [facility][note 3][address] [place] [address] [facility]Urinary SurgeonsStart: 74-58-4488Inscs BMI ScreeningAdult BMI Screening [facility] [employer] SystemStart: 19-67-0069Lstidek ScreeningTobacco Screening [facility] [employer] SystemStart: 02-05-2026 End: 73-68-6250FG Abdomen APX-ray abdomen ap 1 view Imaging Routine Mineral metabolism disorder Expected: 02/05/2026 (Approximate), Expires: 02/05/2027 [facility] Work Phone: Comment on above:Expected: 02/05/2026 (Approximate), Expires: 02/05/2027Start: 01-72-8133Lnnmq BMI ScreeningAdult BMI Screening [facility] [employer] SystemStart: 42-08-9657Wvncfac ScreeningTobacco Screening [facility] SystemStart: 30-66-9314Cverf BMI ScreeningAdult BMI Screening [facility] [employer] SystemStart: 60-58-6167Mghsmna ScreeningTobacco Screening [facility] [employer] SystemStart: 28-13-9448Wltjp BMI ScreeningAdult BMI Screening [facility] [employer] SystemStart: 96-12-0882Rzvxiru ScreeningTobacco Screening [facility] [employer] SystemStart: 73-63-9649Ivjnc BMI ScreeningAdult BMI Screening [facility] [employer] SystemStart: 57-25-5574Ndhur BMI ScreeningAdult BMI Screening [facility]ertart: 22-88-3582Qculwrl ScreeningTobacco Screening [facility] SystemStart: 55-21-7602Norif BMI ScreeningAdult BMI Screening [facility] SystemStart: 24-70-6433Ydetprp ScreeningTobacco Screening [facility] SystemStart: 32-72-6852Muzjuwkwfl ScreeningDepression Screening [facility] SystemStart: 34-03-7720Ymzzm BMI ScreeningAdult BMI Screening [facility] SystemStart: 35-23-3505Vcetr BMI ScreeningAdult BMI Screening [facility] SystemStart: 04-32-4534Kmvuzdrtdb ScreeningDepression Screening [facility]ertart: 76-93-5963Btrgwid ScreeningTobacco Screening [facility] Centertart: 09-40-7103Rjgynzsjg vaccinationInfluenza Vaccine [facility]ertart: 11-20-2024 End: 95-38-5313DH Kidney and Ureter and Urinary bladder 3D post processing WO and W contrast IVCT urogram Imaging Routine Kidney stones Pelvicaliectasis Expected: 11/20/2024, Expires: 11/20/2025[employer] Work Phone: Comment on above:Expected: 11/20/2024, Expires: 11/20/2025Start: 11-10-2024 End: 14-62-0200MM RetroperitoneumUltrasound retroperitoneal complete Imaging Routine Calculus of ureterovesical junction (UVJ) Expected: 11/10/2024 (Approximate), Expires: 12/09/2024[employer] Work Phone: Comment on above:Expected: 11/10/2024 (Approximate), Expires: 12/09/2024Start: 09-11-2024 End: 03-98-1151JSIBGTDHQG REMOVAL STENTCYSTOSCOPY REMOVAL STENT Calculus of ureterovesical junction (UVJ) 09/11/2024 7:34 AM [facility] [email or web address] Start: 08-09-2024 End: 05-27-0652DN Abdomen and Pelvis WO contrastCT abdomen and pelvis without contrast Imaging Routine Flank pain Expected: 08/09/2024, Expires: 11/07/2024 [facility] Work Phone: Comment on above:Expected: 08/09/2024, Expires: 11/07/2024Start: 07-31-2024 End: 20-71-1734Rjernahmp to same day surgery rrahge0807/31/2024 3:30 PM EST - 07/31/2024 5:15 PM EST Surgery [facility] Surgery [address] [place] [phone] Esme Chen MD [address] [place] [phone] LASER HOLMIUM URETEROSCOPY RENAL STONES < OR=1CM [13281 (CPT )][facility] HospitalComment on above:LASER HOLMIUM URETEROSCOPY RENAL STONES < OR=1CM [89267 (CPT )]Start: 07-31-2024 End: 35-74-6358Vtvhh w/insert ureteral stentCYSTOSCOPY EXCHANGE STENT URETER Calculus of ureterovesical junction (UVJ) 07/31/2024 3:30 PM [facility] Start: 07-31-2024 End: 22-58-9445Yujnq w/ureteroscopy w/lithotripsyLASER HOLMIUM URETEROSCOPY RENAL STONES < OR=1CM Calculus of ureterovesical junction (UVJ) 07/31/2024 3:30 PM ESTTOPROMEDICA [facility] SURGERYStart: 36-20-9217Wcrwmizjvn hospital visit by physician 07/31/2024 3:30 PM EST Hospital Encounter [facility] - Surgery [address] [place] [phone] Esme Chen MD [address] [place] [phone] [facility] SurgeryStart: 06-28-2024 End: 54-08-7546Gosjuykmn to same day surgery wuggtb0506/28/2024 1:00 PM EST - 06/28/2024 3:00 PM EST Surgery [address] [phone] Esme Chen MD [address] [place] [phone] LASER HOLMIUM URETEROSCOPY RENAL STONES < OR=1CM [63883 (CPT )][facility] HospitalComment on above:LASER HOLMIUM URETEROSCOPY RENAL STONES < OR=1CM [72519 (CPT )]Start: 06-28-2024 End: 64-71-0865Lzodc w/insert ureteral stentCYSTOSCOPY INSERTION STENT URETER Septic shock (CMS-HCC) Calculus of ureterovesical junction (UVJ) 06/28/2024 1:00 PM [facility] SURGERYStart: 06-28-2024 End: 84-67-2433Gdupg w/ureteroscopy w/lithotripsyLASER HOLMIUM URETEROSCOPY RENAL STONES < OR=1CM Septic shock (CMS-HCC) Calculus of ureterovesical junction (UVJ) 06/28/2024 1:00 PM [facility] SURGERYStart: 19-14-0244Gfbajotpnh hospital visit by vsczobbdt93/06/2024 1:[address] [facility] Hospital Encounter [facility] Surgery [address] [place] [phone] Esme Chen MD [address] [place] [phone] [facility] SurgeryStart: 06-27-2024 Evaluation and management of ifxewxqht95/05/2024 12:[address] [facility] Hospital Encounter Esme Chen MD [address] [place] [phone] [facility] SystemStart: 06-14-2024 End: 90-11-7735Bzvrmrnmi to aitxmtmcwbion91/22/2024 11:30 AM EST Support [facility] [address] [place] [address]IauQqlxps [facility] Start: 06-06-2024 End: 42-32-1772QSZS Line RemovalPICC Line Removal Procedures Routine Bacteremia Expected: 06/06/2024 (Approximate), Expires: 07/06/2024[facility] Work Phone: Comment on above:Expected: 06/06/2024 (Approximate), Expires: 07/06/2024Start: 13-15-6540Ubhdch ID + SusceptAerobe ID + Suscept [facility]: 75-35-5273Wuhkgcgx Identification Only Anaerobe Identification OnlyLutheran Hospitaltart: 03-24-2024 COVID-19 Vaccine ( season)COVID-19 Vaccine () [facility]: 32-48-8446Gszplmizs vaccinationInfluenza Vaccine [facility]ertart: 08-77-2212Icnk Risk ScreeningFall Risk Screening [facility] Centertart: 77-09-2431PXkU,Tdap and Td Vaccines (1 - Tdap) DTaP,Tdap and Td Vaccines (1 - Tdap)[facility]ertart: [birth year]11-1975 Adult BMI Follow Up PlanAdult BMI Follow Up [facility] CenterBacteria identified in Blood by Aerobe cultureMount Carmel Health SystemBasi metabolic 2000 panel - Serum or PlasmaBasic Metabolic Panel Lab Routine Lab max of 3 days, Daily, for lab use only until discontinued starting 05/25/2024, 2 completed [facility] Work Phone: Comment on above:Lab max of 3 days, Daily, for lab use only until discontinued starting 05/25/2024, 2 [facility] Differential panel - BloodCBC auto differential Lab Routine Lab max of 3 days, Daily, for lab use only until discontinued starting 05/25/2024, 2 completedK[facility]tering Health Hamilton SystemComment on above:Lab max of 3 days, Daily, for lab use only until discontinued starting 05/25/2024, 2 completedComprehensive metabolic 1999 panel - Serum or [facility] HospitalComprehenve metabolic 1999 panel - Serum or [facility] End: 57-00-1994Zelustxvzo includes GFR, serumCreatinine includes GFR, serum Lab STAT STAT for 1 Occurrences starting 05/21/2024 until 05/21/2024[facility]-FairhillComment on above:STAT for 1 Occurrences starting 05/21/2024 until 05/21/2024 End: 30-35-1854Kmnkkubbah includes GFR, serumCreatinine includes GFR, serum Lab Routine E coli bacteremia weekly for 2 Occurrences starting 05/25/2024 until 05/25/2025[facility] SystemComment on above:weekly for 2 Occurrences starting 05/25/2024 until 05/25/2025 End: 57-51-5842Cvjgter magnesiumIonized magnesium Lab Routine Once for 1 Occurrences starting 05/26/[address] [place], [place] [address]Comment on above:Once for 1 Occurrences starting 05/26/2024 until 05/26/2024 End: 87-23-5775Sczfmpm [Moles/volume] in Serum or PlasmaLactate Lab Routine Once for 1 Occurrences starting 05/21/[address] [place] [address] Comment on above:Once for 1 Occurrences starting 05/21/2024 until 05/21/2024 End: 56-90-0505Tjfvjnw [Moles/volume] in Serum or PlasmaLactate Lab Routine Once for 1 Occurrences starting 05/22/2024 until 05/22/2024[facility] Work Phone: Comment on above:Once for 1 Occurrences starting 05/22/2024 until 05/22/2024 End: 91-49-5109Fmhayaztyz [#/volume] in BloodWBC Lab Routine E coli bacteremia weekly for 2 Occurrences starting 05/25/2024 until 05/25/2025[facility] Hospital[facility] Work Phone: Comment on above:weekly for 2 Occurrences starting 05/25/2024 until 05/25/2025 End: 52-37-2794Bjzxzwmfm 24 HourLitholink 24 Hour Lab Routine Kidney stone 1 Occurrences starting 12/31/2024 until 12/31/2025[facility] Work Phone: Comment on above:1 Occurrences starting 12/31/2024 until 12/31/2025 End: 42-27-2391Fqphm panelLiver panel Lab Routine E coli bacteremia weekly for 2 Occurrences starting 05/25/2024 until 05/25/2025[facility] HospitalAudiBell Designs Health SystemComment on above:weekly for 2 Occurrences starting 05/25/2024 until 05/25/2025Magnesium [Mass/volume] in Serum or PlasmaMagnesium Lab Routine Lab max of 3 days, Daily, for lab use only until discontinued starting 05/25/2024, 2 completedProDale Medical Center Health SystemComment on above:Lab max of 3 days, Daily, for lab use only until discontinued starting 05/25/2024, 2 completedMG Breast - bilateral Screening [facility] HospitalOxygen Therapy - Maintain SpO2: 90%; *LIBRARY SPECIALIST Guidelines for O2: Yes; Document: \[email or web address].org\epi c\EPIC_Reference\Orders\Respiratory Care Guidelines\CPG Oxygen 2022.pdfOxygen Therapy - Maintain SpO2: 90%; *LIBRARY SPECIALIST Guidelines for O2: Yes; Document: \[email or web address].org\epic\EPIC_Reference\Orders\Respiratory Care Guidelines\CPG Oxygen 2022.pdf Respiratory Care Routine AsNeeded until discontinued starting 05/21/2024[facility] Work Phone: Comment on above:As Needed until discontinued starting 05/21/2024 End: 64-65-9560Jgfccispc [#/volume] in BloodPlatelet count Lab Routine E coli bacteremia weekly for 2 Occurrences starting 05/25/2024 until 05/25/[address]25 [facility] HospitalDNART LIMITADA SystemComment on above:weekly for 2 Occurrences starting 05/25/2024 until 05/25/2025 End: 79-51-3060Nhdvfner I, High Sensitivity 3 HourTroponin I, High Sensitivity 3 Hour Lab Routine Once for 1 Occurrences starting 05/21/2024 until 05/21/2024 [facility] HospitalDNART LIMITADA SystemComment on above:Once for 1 Occurrences starting 05/21/2024 until 05/21/2024[facility] Immunizations Immunization DateImmunizationNotesCare CgyvdmriJhuptamj02-87-4417prbyyh vaccine recombinantJENNIFER ADRIAN [facility]07-18-2023zoster vaccine recombinantJENNIFER ADRIAN [facility]11-09-2021SARS-CoV-2 (COVID-19) mRNA BNT-162b2 vaxJENNIFER ADRIAN [facility] CenterComment on above:Result Comment: 2022-08-10: [id number]-JvX-0 (COVID-19) mRNA BNT-162b2 vaxJENNIFER ADRIAN [facility]02-12-2021SARS-CoV-2 (COVID-19) mRNA BNT-162b2 vaxJENNIFER ADRIAN [facility] Payers DatePayer CategoryPayerPolicy [id number] Medicare [id number] [id number] [id number] 2..840.1.194185.3.579.2.647 [id number] .840.1.263125.3.579.[id number] 2.16.840.1.993565.3.579.2.[id number] 2.16.840.1.072756.3.579.2.[id number] 2.840.1.753488.3.579.2.2[id number] 2.840.1.544102.3.579.[id number] 2.840.1.117098.3.579.2.847297-54-4413Zbyszin14306719 2.840.1.070398.3.579.2.830334-94-7064Hlmmfxa03439260 2.840.1.236132.3.579.2.328699-77-4722Hgexvyf92807801 2.0.1.378526.3.579.2.491370-55-3431Zgdiqlr1984 2.840.1.177758.3.579.2.078359-26-2757Wtsfreq96543817 2.840.1.407284.3.579.2.036709-70-5327Tamlzrk665363722 2.840.1.848987.3.579.2.44[id number] 2.840.1.822290.3.579.[id number] 2.840.1.059594.3.579.2.273804-37-4325Zagmvua714602814 2.840.1.083141.3.579.2.139358-39-7409Fiwgqnj55989260 2.16.840.1.099130.3.579.2.327205-03-1563Esjfujh137175099 2.16.840.1.170571.3.579.2.8[id number] 2.16.840.1.443288.3.579.2.16[id number] 2.16.840.1.048901.3.579.2.827412-53-9750Wfjqudw53849320 2..840.1.326707.3.579.2.330046-99-3603Kfdeebf71499928 2..840.1.453246.3.579.2.050094-65-9447Nwazmxy12535254 2..840.1.423889.[id number] yt612479-94yb-14b5-b58m-k54o3c1jg4d1Ukgwweu2551925 2.840.1.382969.3.579.2.593 [id number] 2.840.1.055940.3.579.2.531 Social History DateTypeDetailFacilityStart: 08-10-2022 End: 06-71-9462Hatjlow smoking statusEx-smoker (finding)[facility]htart: 09-03-2020 End: 85-40-3806Zdp [facility]igned At [facility]tart: 15-66-6164Mvs Assigned At [facility] HospitalTobacco smoking statusNeverExec[facility] End: 93-23-7761Nobgwlq of tobacco useCurrent smokerMount Carmel Health System End: 99-81-5302Mpydxip of tobacco useCigarette SmokerMount Carmel Health System History of tobacco usePassive smokerNovant Health Forsyth Medical Centertart: 06-14-2024 End: 27-85-8983Qbaouef use and exposureSmokeless tobacco non-userNovant Health Forsyth Medical Centertart: 07-23-2024 End: 59-57-4814Ymxjbvjxa beverage intakeLifetime non-drinker (finding)[facility]ertart: 09-03-2020 End: 98-64-6754Tljzwex of Social functionMount Carmel Health SystemHas the YourMechanic gas, oil, or water [employer] threatened to shut off services in your home in past [facility] HospitalHow often to you have a drink containing alcohol?NeverNovant Health Forsyth Medical Centertart: 07-55-8835Duxspkk Comment 0.5ppd smoked on & off for about 20 yearsNovant Health Forsyth Medical Centertart: 28-73-6148Qog assigned at birthNot on fileNovant Health Forsyth Medical Centertart: 05-08-2018 End: 94-44-1617XbtVxzgqu (finding)[facility]ertart: 05-21-2024 Tobacco smoking status NHISNever smoked tobaccoNovant Health Forsyth Medical Centertart: 40-39-2293Mdqwcnr Argnptm1575-6284 smoked on & off for about 20 yearsMount Carmel Health System Medical Equipment Procedure CodeEquipment CodeEquipment Original TextEquipment IdentifierDates Stent Uret 6fr 26cm 2 Pgtl Crv Rdpq Pstnr [facility] [id number]: 96-84-2928Rqyjdpj on above:Description: NO STRINGSStent Uret 6fr 26cm 2 Pgtl Crv Rdpq Pstnr [facility] [id number]: 62-75-4902Chzry Uret 6fr 26cm 2 Pgtl Crv Rdpq Pstnr [facility] [id number]: 09-11-2024 Goals DatePatient GoalDesired Activity/StatePersonal health goalComment on above: Evaluation of progress towards goal: safe transition home with home care and support. Functional Status NswxRzwxciphjcYsebbbLbksoids01-25-9640Hgfvndhvhq StatusN/AExec[facility] Mental Status DateAssessmentResultMorristown Medical Center Clinical Notes 01-16-2024 to 04-08-2025 Note Date & VvwcLrujIbfcfoaq82-25-5728 [facility] [place] [id number] Ultrasound Report Signed Patient: Sharri Murillo MR#: [id number] 80 : 1955 Acct:[id number] Age/Sex: 69 / F ADM Date: 5 Loc: RH Room: Type: REG REF Attending Dr: Bharathi Community Ordering Provider: BHARATHI AVILES Date of Service: 04/08/25 US/US community outreach aorta: SCREENING Copies to: STEFAN,OUTREACH ~ Aorta screening ultrasound HISTORY: Screening exam Normal caliber abdominal aorta. US/US [facility] outreach aorta IMPRESSION: No abdominal aortic aneurysm. Impression dictated by: Milton Yap M.D. 04/08/2025 3:29 PM Dictation Location: [place] [address] Tech: Lamar Kathleen Transcribed By: KAMILAH 04/08/25 1529 Dictated By: Milton Yap DO 04/08/25 1529 Signed By: 04/08/25 1529 [facility]09-16-2025 Radiology Diagnostic study note [facility] Main [address] [address] Ultrasound Report Signed Patient: Sharri Murillo MR#: [id number] 80 : 1955 Acct:[id number] Age/Sex: 69 / F ADM Date: 5 Loc: RH Room: Type: REG REF Attending : Bharathi Aviles Ordering Provider: BHARATHI AVILES Date of Service: 04/08/25 US/US community outreach KATY: SCREENING Copies to: COMMUNITY,OUTREACH ~ LOWER EXTREMITY SEGMENTAL ARTERIAL DOPSCAN (PVR) INDICATION: Community outreach PAD screening program. PROCEDURE: Right arm blood pressure is 183 , left is 178 . Pressures at the right ankle are 185 using the dorsalis pedis artery with ankle-brachial indexof 1.01 . Pressures at the left ankle are 184 with ankle-brachial index of 1.01 . Wave forms by plethysmography are normal. US/US community outreach KATY IMPRESSION: NO HEMODYNAMICALLY SIGNIFICANT PERIPHERAL VASCULAR OCCLUSIVE DISEASE AT REST IN EITHER LOWER EXTREMITY. Impression dictated by: Jovany Heart MD,FACS,FSVS 04/08/2025 2:09 PM Dictation Location: [facility]04 Tech: Shira Vilchis Transcribed By: KAMILAH 04/08/251408 Dictated By: Jovany Heart MD 04/08/251407 Signed By: 04/08/251408 [facility] Work Phone: 1(273) 545-428909-16-2025 Radiology Diagnostic study [facility] Main [place] [address] [place] [address] Ultrasound Report Signed Patient: Sharri Murillo MR#: [id number] [birth year] : 1955 Acct:[id number] Age/Sex: 69 / F ADM Date: 5 Loc: Room: Type: [facility] Attending Dr: Bharathi [facility] Ordering Provider: BHARATHI AVILES Date of Service: 04/08/25 US/US community outreach carotid: SCREENING Copies to: [facility] ~ CAROTID DUPLEX INDICATION: [facility] outreach carotid screening program. PROCEDURE: Color-flow duplex scanning is used to interrogate the extracranial carotid arterial system, as well as both vertebral arteries. The proximal rightinternal carotid artery shows a highest peak systolic velocity of 84.5 cm/s withan end-diastolic velocity of 18.1 cm/s . The mid internal carotid artery measures 107 cm/s peak systolic with an end-diastolic velocity of 32.1 cm/s . The distal segment measures 62.4 cm/s peak systolic with an end diastolic velocity of 17.3 cm/s . The velocities of the right common carotid artery are 136 cm/s peak systolic and 22.7 cm/s end-diastolic proximally and 132 cm/s peak systolicand 26.7 cm/s end-diastolic distally. The peak systolic velocity ratio o f the internal to the common carotid artery is 0.79 . The proximal left internal carotid artery shows a highest peak systolic velocityof 121 cm/s with anend-diastolic velocity of 26.9 cm/s . The mid internal carotid artery measures 138 cm/s peak systolic with an end-diastolic velocity of 39 cm/s . The distal segment measures 130 cm/s peak systolic with an end diastolic velocity of 33.8 cm/s . The velocities of the left common carotid artery are 140cm/s peak systolic and 24.3 cm/s end-diastolic proximally and 129 cm/s peak systolic and 25.1 cm/s end-diastolic distally. The peak systolicvelocity ratio of the internal to the common carotid arteryis 0.99 . US/ community outreach carotid IMPRESSION: NO HEMODYNAMICALLY SIGNIFICANT STENOSIS OF EITHER EXTRACRANIAL INTERNAL CAROTID ARTERY. Impression dictated by: Jovany Heart MD,FACS,FSVS 04/08/2025 2:08 PM Dictation Location: [place] [address] Tech: Lamar Frannie Transcribed By: KAMILAH 04/08/251407 Dictated By: Jovany Heart MD 04/08/251407 Signed By: 04/08/251407 [facility] Work Phone: [phone] 636-933407-16-2025 History of Present illness Narrative* Aleksandra Sandoval MD - 02/05/2025 12:00 PM EDT Images from the original note were not included. [address] [place] [id number] Patient: Sharri Murillo Date of : 1955 Encounter Date: 02/05/2025 History of Present Illness: The patient is a 69 y.o. female, an established patient, and is here for Chief Complaint Patient presents with Follow-up . Mineral metabolism workup. Twenty-four urine litho link. Reviewed. Strategies discussed with the patient. Uufj-hsi-drbdptw supplement also discussed. Subsequent imaging discussed as well. Urinalysis today: No results for input(s): EXTPOCURCO , EXTPOCURCH , EXTPOCAPP , EXTPOCURBS , EXTPOCURBIL , EXTPOCUKET , EXTPOCUSPG , EXTPOCUHGB , EXTPOCUPRO , EXTPOCUURO , EXTPOCULEU , EXTPOCUNIT , EXTPOCUWBC , EXTPOCUBLD , EXTPOCURBC , EXTPOCUCRY , EXTPOCUBAC , EXTPOCUTREP , EXTPOCUPH , EXTPOCUL EE in the last 72 hours. Last BUN and creatinine: Lab Results Component Value Date BUN 16 07/23/2024 Lab Results Component Value Date CREATININE 0.59 11/20/2024 Last PSA: No results found for: PSA No results found for: PROSTATICSP Past Medical, Family, and Social History Update: The following portions of the patient's history were reviewed and updated as appropriate: allergies, current medications, past family history, past medical history, past social history, past surgicalhistory and problem list. Past Medical History: Diagnosis Date Arthritis Calculus of ureterovesical junction (UVJ) 07/23/2024 Difficult intravenous access 07/23/2024 Has had PICC lines in the past Migraines 07/23/2024 6x year Septic shock ([facility]) 05/21/2024 Visual impairment glasses Past Surgical History: Procedure Laterality Date CYSTOSCOPY EXCHANGE STENT URETER Left 08/08/2024 Performed by Esme Chen MD at [facility] CYSTOSCOPY INSERTION STENT URETER Left 06/28/2024 Performed by Esme Chen MD at [facility] CYSTOSCOPY REMOVAL STENT Left 09/11/2024 Performed by Esme Chen MD at [facility] CYSTOSCOPY RETROGRADE PYELOGRAM Left 08/08/2024 Performed by Esme Chen MD at [facility] CYSTOSCOPY RETROGRADE PYELOGRAM Left 06/28/2024 Performed by Esme Chen MD at [facility] HYSTERECTOMY age 42's INGUINAL HERNIA REPAIR x2 pt unsure of date JOINT REPLACEMENT Bilateral pt unsure of when KIDNEY STONE SURGERY 2017 I had kidney stones blasted [facility] URETEROSCOPY RENAL STONES < OR=1CM; STONE BASKET EXTRACTION Left 06/28/2024 Performed by Esme Chen MD at [facility] LASER HOLMIUM URETEROSCOPY WITH VACUUM ASPIRATION/STONE BASKETING Left 08/08/2024 Performed by Esme Chen MD at [facility] REMOVAL TUBE NEPHROSTOMY Left 06/28/2024 Performed by Esme Chen MD at [facility] TONSILLECTOMY as a child UMBILICAL HERNIA REPAIR pt unsure of when URETERAL DILATION Left 06/28/2024 Performed by Esme Chen MD at [facility] Family History Problem Relation Age of Onset Diabetes Mother Peripheral vascular disease Mother Cancer Father Prostate cancer Father Nephrolithiasis Sister Nephrolithiasis Sister Nephrolithiasis Brother Anesthesia problems Neg Hx Stroke Neg Hx Bleeding Disorder Neg Hx Clotting disorder Neg Hx Breast cancer Neg Hx Ovarian cancer Neg Hx Colon cancer Neg Hx Heart attack Neg Hx Current Outpatient Medications Medication Sig Dispense Refill ascorbic acid, vitamin C, (VITAMIN C) 1000 mg tablet Take 1 tablet (1,000 mg total) by mouth in themorning. aspirin 81 mg chewable tablet Chew 1 tablet (81 mg total) and swallow in the morning. Indications: treatment to prevent a heart attack. cholecalciferol, vitamin D3, 2,000 units tablet Take 1 tablet (2,000 Units total) by mouth in the morning. hydroCHLOROthiazide (HYDRODIURIL) 25 mg tablet Take 1 tablet (25 mg total) by mouth daily Indications: visible water retention. meloxicam (MOBIC) 15 mg tablet Take 1 tablet (15 mg total) by mouth in the morning. Indications: joint damage causing pain and loss of function. zkakvmgx-vizy-KK-calcium &mins (THERAGRAN-M) 9 mg iron-400 mcg tablet Take 1 tablet by mouth inthe morning. oxybutynin (DITROPAN) 5 mg tablet Take 1 tablet (5 mg total) by mouth in the morning. SUMAtriptan (IMITREX) 25 mg tablet Take 1 tablet (25 mg total) by mouth once as needed for migraine. trospium (SANCTURA) 20 mg tablet Take 1 tablet (20 mg total) by mouth in the morning and 1 tablet (20 mg total) before bedtime. zinc gluconate 50 mg tablet Take 1 tablet (50 mg total) by mouth in the morning. fesoterodine (TOVIAZ) 8 mg tablet extended release 24 hr Take 1 tablet (8 mg total) by mouth in themorning. Indications: urinary urgency, or the sudden urge to urinate. (Patient not taking: Reportedon 11/20/2024) mirabegron (MYRBETRIQ) 50 mg tablet extended release 24 hr Take 1 tablet (50 mg total) by mouth in the morning. Indications: urinary urgency, or the sudden urge to urinate. (Patient not taking: Reported on 11/20/2024) No current facility-administered medications for this visit. (All medications reviewed and updated by provider since last office visit or hospitalization) Allergies: Sulfa (sulfonamide antibiotics) Tobacco History: Social History Tobacco Use Smoking Status Former Current packs/day: 0.00 Types: Cigarettes Quit date: 1997 Years since quittin.5 Passive exposure: Past Smokeless Tobacco Never Tobacco Comments 0.5ppd smoked on & off for about 20 years (If patient a smoker, smoking cessation counseling offered) Social History: Social History Substance and Sexual Activity Alcohol Use Never Review of Systems: General: Negative for chills and fever. Cardiovascular: Negative for chest pain and shortness of breath. Gastrointestinal: Negative for constipation, diarrhea, nausea, and vomitting. -per HPI Physical Exam: BP (!) 178/99 Comment: Pt. states they had a difficult drive to this office. Pulse 73 Ht 170.2 cm (5' 7 ) Wt (!) 142.4 kg (314 lb) BMI 49.18 kg/m Nontoxic no apparent distress. Respirations nonlabored. Skin is dry. Awake alert oriented x3. Assessment and Plan: Sharri was seen today for follow-up. Diagnoses and all orders for this visit: Mineral metabolism disorder - X-ray abdomen ap 1 view; Future Problem List High Mineral metabolism disorder - Primary Overview ==== 02/05/2025 ==== 24 urine was reviewed. [...] 24 urine litho link x1 return clinic Relevant Orders X-ray abdomen ap 1 view Follow-up: KUB 1 year return clinic Aleksandra Sandoval MD This note was created with the assistance of a speech recognition program. While intending to generate a timely document that accurately reflects the content of the visit, no guarantee can be provided that every grammatical or spelling mistake has been or will be identified or corrected. Thank you for your understanding. documented in this encounterMount [facility] System06-10-2025 Miscellaneous Notes* Telephone Encounter - Kaylen Kendall - 12/31/2024 2:36 PM EDT I faxed litho link order successfully to [phone]. documented in this encounterMount Carmel Health System06-10-2025 Telephone encounter Note* Telephone Encounter - Kaylen Kendall - 12/31/2024 2:36 PM EDT I faxed litho link order successfully to [phone]. [facility]06[facility] History of Present illness Narrative* Aleksandra Sandoval MD - 12/31/2024 1:45 PM EDT Images from the original note were not included. [address] [place] [phone] Patient: Sharri Murillo Date of : 1955 Encounter Date: 12/31/2024 History of Present Illness: The patient is a 69 y.o. female, an established patient, and is here for Chief Complaint Patient presents with Follow-up . History of some mild hydro on left side. History nephrolithiasis. No renal colic. Had CT urogram.Present with the . Had chance review the films Urinalysis today: No results for input(s): EXTPOCURCO , EXTPOCURCH , EXTPOCAPP , EXTPOCURBS , EXTPOCURBIL , EXTPOCUKET , EXTPOCUSPG , EXTPOCUHGB , EXTPOCUPRO , EXTPOCUURO , EXTPOCULEU , EXTPOCUNIT , EXTPOCUWBC , EXTPOCUBLD , EXTPOCURBC , EXTPOCUCRY , EXTPOCUBAC , EXTPOCUTREP , EXTPOCUPH , EXTPOCUL EE in the last 72 hours. Last BUN and creatinine: Lab Results Component Value Date BUN 16 07/23/2024 Lab Results Component Value Date CREATININE 0.59 11/20/2024 Last PSA: No results found for: PSA No results found for: PROSTATICSP Past Medical, Family, and Social History Update: The following portions of the patient's history were reviewed and updated as appropriate: allergies, current medications, past family history, past medical history, past social history, past surgicalhistory and problem list. Past Medical History: Diagnosis Date Arthritis Calculus of ureterovesical junction (UVJ) 07/23/2024 Difficult intravenous access 07/23/2024 Has had PICC lines in the past Migraines 07/23/2024 6x year Septic shock ([facility]) 05/21/2024 Visual impairment glasses Past Surgical History: Procedure Laterality Date CYSTOSCOPY EXCHANGE STENT URETER Left 08/08/2024 Performed by Esme Chen MD at [facility] CYSTOSCOPY INSERTION STENT URETER Left 06/28/2024 Performed by Esme Chen MD at [facility] CYSTOSCOPY REMOVAL STENT Left 09/11/2024 Performed by Esme Chen MD at [facility] CYSTOSCOPY RETROGRADE PYELOGRAM Left 08/08/2024 Performed by Esme Chen MD at [facility] CYSTOSCOPY RETROGRADE PYELOGRAM Left 06/28/2024 Performed by Esme Chen MD at [facility] HYSTERECTOMY age 42's INGUINAL HERNIA REPAIR x2 pt unsure of date JOINT REPLACEMENT Bilateral pt unsure of when KIDNEY STONE SURGERY 2018 I had kidney stones blasted [facility] URETEROSCOPY RENAL STONES < OR=1CM; STONE BASKET EXTRACTION Left 06/28/2024 Performed by Esme Chen MD at [facility] LASER HOLMIUM URETEROSCOPY WITH VACUUM ASPIRATION/STONE BASKETING Left 08/08/2024 Performed by Esme Chen MD at [facility] REMOVAL TUBE NEPHROSTOMY Left 06/28/2024 Performed by Esme Chen MD at [facility] TONSILLECTOMY as a child UMBILICAL HERNIA REPAIR pt unsure of when URETERAL DILATION Left 06/28/2024 Performed by Esme Chen MD at [facility] Family History Problem Relation Age of Onset Diabetes Mother Peripheral vascular disease Mother Cancer Father Prostate cancer Father Nephrolithiasis Sister Nephrolithiasis Sister Nephrolithiasis Brother Anesthesia problems Neg Hx Stroke Neg Hx Bleeding Disorder Neg Hx Clotting disorder Neg Hx Breast cancer Neg Hx Ovarian cancer Neg Hx Colon cancer Neg Hx Heart attack Neg Hx Current Outpatient Medications Medication Sig Dispense Refill ascorbic acid, vitamin C, (VITAMIN C) 1000 mg tablet Take 1 tablet (1,000 mg total) by mouth in themorning. aspirin 81 mg chewable tablet Chew 1 tablet (81 mg total) and swallow in the morning. Indications: treatment to prevent a heart attack. cholecalciferol, vitamin D3, 2,000 units tablet Take 1 tablet (2,000 Units total) by mouth in the morning. hydroCHLOROthiazide (HYDRODIURIL) 25 mg tablet Take 1 tablet (25 mg total) by mouth daily Indications: visible water retention. meloxicam (MOBIC) 15 mg tablet Take 1 tablet (15 mg total) by mouth in the morning. Indications: joint damage causing pain and loss of function. xxwyhsse-tnli-SR-calcium &mins (THERAGRAN-M) 9 mg iron-400 mcg tablet Take 1 tablet by mouth inthe morning. oxybutynin (DITROPAN) 5 mg tablet Take 1 tablet (5 mg total) by mouth in the morning. SUMAtriptan (IMITREX) 25 mg tablet Take 1 tablet (25 mg total) by mouth once as needed for migraine. trospium (SANCTURA) 20 mg tablet Take 1 tablet (20 mg total) by mouth in the morning and 1 tablet (20 mg total) before bedtime. zinc gluconate 50 mg tablet Take 1 tablet (50 mg total) by mouth in the morning. fesoterodine (TOVIAZ) 8 mg tablet extended release 24 hr Take 1 tablet (8 mg total) by mouth in themorning. Indications: urinary urgency, or the sudden urge to urinate. (Patient not taking: Reportedon 12/31/2024) mirabegron (MYRBETRIQ) 50 mg tablet extended release 24 hr Take 1 tablet (50 mg total) by mouth in the morning. Indications: urinary urgency, or the sudden urge to urinate. (Patient not taking: Reported on 12/31/2024) No current facility-administered medications for this visit. (All medications reviewed and updated by provider since last office visit or hospitalization) Allergies: Sulfa (sulfonamide antibiotics) Tobacco History: Social History Tobacco Use Smoking Status Former Current packs/day: 0.00 Types: Cigarettes Quit date: 1997 Years since quittin.4 Passive exposure: Past Smokeless Tobacco Never Tobacco Comments 0.5ppd smoked on & off for about 20 years (If patient a smoker, smoking cessation counseling offered) Social History: Social History Substance and Sexual Activity Alcohol Use Never Review of Systems: General: Negative for chills and fever. Cardiovascular: Negative for chest pain and shortness of breath. Gastrointestinal: Negative for constipation, diarrhea, nausea, and vomitting. -per HPI Physical Exam: Ht 170.2 cm (5' 7 ) Wt (!) 142.4 kg (314 lb) BMI 49.18 kg/m General Alert., Cooperative. Not in acute distress. Non-toxic. Orientation - Oriented X3. Head and Neck Normocephalic, atraumatic with no lesions. No abnormal movements. Trachea - midline. Integumentary Normal coloration of skin. Skin Moisture - normal skin moisture. Chest and Lung Exam Quiet, even and easy respiratory effort with no use of accessory muscles. Neurologic NON-focal Assessment and Plan: Sharri was seen today for follow-up. Diagnoses and all orders for this visit: Mineral metabolism disorder Kidney stone - Litholink 24 Hour; Future Problem List High Mineral metabolism disorder - Primary Overview ==== 12/31/2024 ==== Calcium level 9. Stone calcium oxalate monohydrate. Family history stones Plan: 24 urine litho link x1 return clinic Kidney stone Overview ==== 12/31/2024 ==== she did have some [...] benefit from metabolic evaluation down the road Relevant Orders Litholink 24 Hour Follow-up: Twenty-four urine litho link x1 return clinic Aleksandra Sandoval MD New problem, additional workup planned. Independent visualization of tracing, image or specimen was made: CT scan---showed pt and . Urology service is the sole provider for the patient's ongoing management of their history of stones which is a chronic condition requiring ongoing follow-up. This note was created with the assistance of a speech recognition program. While intending to generate a timely document that accurately reflects the content of the visit, no guarantee can be provided that every grammatical or spelling mistake has been or will be identified or corrected. Thank you for your understanding. documented in this encounterMount Carmel Health System04-30-2025 Evaluation + Plan note* Assessment & Plan Note - SHAHZAD Coleman - 11/20/2024 1:06 PM EDT Associated Problem(s): Kidney stone Dr. Chen performed her procedures but she would like to see a doctor that goes to [place]. [facility]04-30-[facility] Miscellaneous Notes* Assessment & Plan Note - SHAHZAD Coleman - 11/20/2024 1:06 PM EDTAssociated Problem(s): Kidney stone Dr. Chen performed her procedures but she would like to see a doctor that goes to [place]. documented in this encounterMount Carmel Health System04-30-2025 Miscellaneous Notes* Telephone Encounter - Kaylen Kendall - 11/20/2024 11:31 AM EDT Offday appointment (at least 15 min) with Dr. Sandoval or Dr. Silverman for the results CT Urogram. Call to schedule after ct scheduled documented in this encounterAvita [facility]-30-[facility]25 Telephone encounter Note* Telephone Encounter - Kaylen Kendall - 11/20/2024 11:31 AM EDT Offday appointment (at least 15 min) with Dr. Sandoval or Dr. Silverman for the results CT Urogram. Call to schedule after ct scheduled [facility] [id number] History of Present illness Narrative* SHAHZAD Coleman - 11/20/2024 11:00 AM EDT Images from the original note were not included. [address] [place] [address] [facility] [id number] Patient: Sharri Murillo Date of : 1955 Encounter Date: 11/20/2024 History of Present Illness: The patient is a 68 y.o. female, an established patient, and is here for follow- up. Please see her consult note below. She originally had a neph tube placed. She underwent cystoscopy/ureteral dilatation/left ureteroscopy/stent placement/nephrostomy tube removal 06/28/2024. She underwent repeat ureteroscopy 08/08/2024. The stent was removed 09/11/2024. Stone analysis: 100% Calcium oxalate monohydrate Renal ultrasound 11/11/2024: Dilated left renal pelvis, 5 mm nonobstructing stone in the left kidney. She is not having any pain. She was following with [facility] and was last seen in December 2023 Summary of old records: Notes from Dr. Chen 05/21/24: The patient is a 68 y.o. female who presented to [facility] with history of recent UTI on 05/16 ( symptom - urinary frequency) and started on oral anbx, pt developed nausea, emesis, fever and chills. Pt was found to have 9x15mm UVJ stone in distal left ureter, hydronephrosis. UA nitrite +. Pt has history of nephrolithiasis, has required stone treatment previously for stone and passed some as well. She states most recent stone treatment she had a small amount that was 'lower down unclear if in ureter or renal pelvis. Pt transferred to [facility] as she has required Vasopressor for hypotension. BPs were 70-50s per chart Urinalysis today: No results for input(s): EXTPOCURCO , EXTPOCURCH , EXTPOCAPP , EXTPOCURBS , EXTPOCURBIL , EXTPOCUKET , EXTPOCUSPG , EXTPOCUHGB , EXTPOCUPRO , EXTPOCUURO , EXTPOCULEU , EXTPOCUNIT , EXTPOCUWBC , EXTPOCUBLD , EXTPOCURBC , EXTPOCUCRY , EXTPOCUBAC , EXTPOCUTREP , EXTPOCUPH in the last 72 hours. Last BUN and creatinine: Lab Results Component Value Date BUN 16 07/23/2024 Lab Results Component Value Date CREATININE 0.68 07/23/2024 Past Medical, Family, and Social History Update: The following portions of the patient's history were reviewed and updated as appropriate: allergies, current medications, past family history, past medical history, past social history, past surgicalhistory and problem list. Past Medical History: Diagnosis Date Arthritis Calculus of ureterovesical junction (UVJ) 07/23/2024 Difficult intravenous access 07/23/2024 Has had PICC lines in the past Migraines 07/23/2024 6x year Septic shock ([facility]) 05/21/2024 Visual impairment glasses Past Surgical History: Procedure Laterality Date CYSTOSCOPY EXCHANGE STENT URETER Left 08/08/2024 Performed by Esme Chen MD at [facility] CYSTOSCOPY INSERTION STENT URETER Left 06/28/2024 Performed by Esme Chen MD at [facility] CYSTOSCOPY REMOVAL STENT Left 09/11/2024 Performed by Esme Chen MD at [facility] CYSTOSCOPY RETROGRADE PYELOGRAM Left 08/08/2024 Performed by Esme Chen MD at [facility] CYSTOSCOPY RETROGRADE PYELOGRAM Left 06/28/2024 Performed by Esme Chen MD at [facility] HYSTERECTOMY age 42's INGUINAL HERNIA REPAIR x2 pt unsure of date JOINT REPLACEMENT Bilateral pt unsure of when KIDNEY STONE SURGERY 2017 I had kidney stones blasted [facility] URETEROSCOPY RENAL STONES < OR=1CM; STONE BASKET EXTRACTION Left 06/28/2024 Performed by Esme Chen MD at [facility] LASER HOLMIUM URETEROSCOPY WITH VACUUM ASPIRATION/STONE BASKETING Left 08/08/2024 Performed by Esme Chen MD at [facility] REMOVAL TUBE NEPHROSTOMY Left 06/28/2024 Performed by Esme Chen MD at [facility] TONSILLECTOMY as a child UMBILICAL HERNIA REPAIR pt unsure of when URETERAL DILATION Left 06/28/2024 Performed by Esme Chen MD at [facility] Family History Problem Relation Age of Onset Diabetes Mother Peripheral vascular disease Mother Cancer Father Prostate cancer Father Nephrolithiasis Sister Nephrolithiasis Sister Nephrolithiasis Brother Anesthesia problems Neg Hx Stroke Neg Hx Bleeding Disorder Neg Hx Clotting disorder Neg Hx Breast cancer Neg Hx Ovarian cancer Neg Hx Colon cancer Neg Hx Heart attack Neg Hx Current Outpatient Medications Medication Sig Dispense Refill ascorbic acid, vitamin C, (VITAMIN C) 1000 mg tablet Take 1 tablet (1,000 mg total) by mouth in themorning. aspirin 81 mg chewable tablet Chew 1 tablet (81 mg total) and swallow in the morning. Indications: treatment to prevent a heart attack. cholecalciferol, vitamin D3, 2,000 units tablet Take 1 tablet (2,000 Units total) by mouth in the morning. hydroCHLOROthiazide (HYDRODIURIL) 25 mg tablet Take 1 tablet (25 mg total) by mouth daily Indications: visible water retention. meloxicam (MOBIC) 15 mg tablet Take 1 tablet (15 mg total) by mouth in the morning. Indications: joint damage causing pain and loss of function. rcpsrbik-eazt-JD-calcium &mins (THERAGRAN-M) 9 mg iron-400 mcg tablet Take 1 tablet by mouth inthe morning. oxybutynin (DITROPAN) 5 mg tablet Take 1 tablet (5 mg total) by mouth in the morning. SUMAtriptan (IMITREX) 25 mg tablet Take 1 tablet (25 mg total) by mouth once as needed for migraine. trospium (SANCTURA) 20 mg tablet Take 1 tablet (20 mg total) by mouth in the morning and 1 tablet (20 mg total) before bedtime. zinc gluconate 50 mg tablet Take 1 tablet (50 mg total) by mouth in the morning. fesoterodine (TOVIAZ) 8 mg tablet extended release 24 hr Take 1 tablet (8 mg total) by mouth in themorning. Indications: urinary urgency, or the sudden urge to urinate. (Patient not taking: Reportedon 11/20/2024) mirabegron (MYRBETRIQ) 50 mg tablet extended release 24 hr Take 1 tablet (50 mg total) by mouth in the morning. Indications: urinary urgency, or the sudden urge to urinate. (Patient not taking: Reported on 11/20/2024) No current facility-administered medications for this visit. (All medications reviewed and updated by provider since last office visit or hospitalization) Allergies: Sulfa (sulfonamide antibiotics) Tobacco History: Social History Tobacco Use Smoking Status Former Current packs/day: 0.00 Types: Cigarettes Quit date: 1997 Years since quittin.3 Passive exposure: Past Smokeless Tobacco Never Tobacco Comments 0.5ppd smoked on & off for about 20 years (If patient a smoker, smoking cessation counseling offered) Social History: Social History Substance and Sexual Activity Alcohol Use Never Review of Systems: General: Negative for chills and fever. Cardiovascular: Negative for chest pain and shortness of breath. Gastrointestinal: Negative for constipation, diarrhea, nausea, and vomitting. Physical Exam: BP 166/88 Pulse 69 Ht 170.2 cm (5' 7 ) Wt (!) 142.4 kg (314 lb) BMI 49.18 kg/m Constitutional: She appears well-developed. No distress. Pulmonary/Chest: Effort normal. No respiratory distress. Neurological: She is alert and oriented for age. Gait normal. Nursing note and vitals reviewed. Assessment and Plan: Sharri was seen today for follow-up. Diagnoses and all orders for this visit: Kidney stones - CT urogram; Future - Creatinine includes GFR, serum; Future Pelvicaliectasis - CT urogram; Future - Creatinine includes GFR, serum; Future Kidney stone Problem List Genitourinary Kidney stone Overview 11/20/24: Seen as a consult for septic stone. Status post left ureteroscopy/ureteral dilatation 06/28/2024. Repeat ureteroscopy 08/08/2024. Stent removed 09/11/2024. Stone was 100% calcium oxalate monohydrate. Follow-up ultrasound 11/11/2024 showed a dilated left renal pelvis and a 5 mm nonobstructing stone in the left kidney. No pain. We will start with CT urogram. She would benefit from metabolic evaluation down the road Current Assessment & Plan Dr. Chen performed her procedures but she would like to see a doctor that goes to [place]. Follow-up: CT Urogram with Cr prior. Offday appointment (at least 15 min) with Dr. Sandoval or Dr. Silverman for the results. SHAHZAD COLEMAN This note was created with the assistance of a speech recognition program. While intending to generate a timely document that accurately reflects the content of the visit, no guarantee can be provided that every grammatical or spelling mistake has been or will be identified or corrected. Thank you for your understanding. SHAHZAD Coleman 11/20/24 1308 documented in this [facility]02-19-2025 Miscellaneous Notes* Telephone Encounter - Esme Chen MD - 09/11/2024 7:47 AM EST Patient had left ureteral stent removal today after previous ureteroscopy. Please have her follow up with SHAHZAD Landaverde in 2 months with a renal ultrasound. Thanks. documented in this [facility]02-19-2025 Telephone encounter Note* Telephone Encounter - Esme Chen MD - 09/11/2024 7:47 AM EST Patient had left ureteral stent removal today after previous ureteroscopy. Please have her follow up with SHAHZAD Landaverde in 2 months with a renal ultrasound. Thanks. [facility] [employer] [id number] Miscellaneous Notes* Telephone Encounter - Esme Chen MD - 08/09/2024 4:46 PM EST Patient had left ureteroscopy with stone treatment on 08/08. She needs to get a CT which I ordered scheduled at [facility] in the near future and based on these results, I will schedule her for3rd stage ureteroscopy or stent removal. Thanks. * Telephone Encounter - Ina Thompson CMA - 08/09/2024 4:46 PM EST [address] you Dr. Chen. [facility] for the pt to call central scheduling to get that CT scheduled. Also sent the pt a [employer] message. [facility] Telephone encounter Note* Telephone Encounter - Esme Chen MD - 08/09/2024 4:46 PM EST Patient had left ureteroscopy with stone treatment on 08/08. She needs to get a CT which I ordered scheduled at [facility] in the near future and based on these results, I will schedule her for3rd stage ureteroscopy or stent removal. Thanks. [facility]01-17-2025 Telephone encounter Note* Telephone Encounter - Ina Thompson CMA - 08/09/2024 4:46 PM EST [address] you Dr. Chen. [facility] for the pt to call central scheduling to get that CT scheduled. Also sent the pt a [employer] message. [facility]12-[facility] History and physical note* Tanya Perea APRN-RAMONA - 07/23/2024 10:30 AM EST PRE-OPERATIVE HISTORY AND PHYSICAL Exam Date: 07/23/24 Surgery Date: 07/31/24 PCP: OLMAN SHOEMAKER MD Surgeon: Esme Chen MD CC: Calculus of LEFT ureterovesical junction HPI: Sharri Murillo is a 68 y.o. female who presents for pre-op H&P for planned Laser Holmium Ureteroscopy Renal Stones < Or=1cm - Left Cystoscopy Exchange Stent Ureter - Left. She reports that she had a kidney stone removed in 2017 with lithotripsy. She reports that she began to feel ill at the end of April and was treated for a UTI. Her symptoms progressed to chills and sweats and she was seen in the emergency room at [place]. She was then transferred to [place]. In a review of the record, she was admitted on 05/21/24 secondary to septic shock caused by an obstructive stone resultingin left sided hydronephrosis. A left nephrostomy tube was placed and she was discharged to home on 05/26/24. She underwent a cystourethroscopy with left sided retrograde pyelography, ureteral dilation, semi-rigid ureteroscopy with holmium laser lithotripsy and stone basketing as well as a ureteral stent insertion and nephrostomy removal on 06/28/24. Stone analysis revealed 100% calcium oxalate monohydrate. She denies any current dysuria or hematuria. She has had some urinary urgency, frequency a nd incontinence that is longstanding. She denies any current fever, chills or sweats. She denies any abdominal or rectal pain. Allergies Allergen Reactions Sulfa (Sulfonamide Antibiotics) Hives Prior to Admission medications Medication Sig Start Date End Date Taking? Authorizing Provider ascorbic acid, vitamin C, (VITAMIN C) 1000 mg tablet Take 1 tablet (1,000 mg total) by mouth in themorning. Not In System Ref Prov aspirin 81 mg chewable tablet Chew 1 tablet (81 mg total) and swallow in the morning. 10/14/23 Not In System Ref Prov cholecalciferol, vitamin D3, 2,000 units tablet Take 1 tablet (2,000 Units total) by mouth in the morning. Not In System Ref Prov fesoterodine (TOVIAZ) 8 mg tablet extended release 24 hr Take 1 tablet (8 mg total) by mouth in themorning. Indications: urinary urgency, or the sudden urge to urinate. 02/13/24 Not In System Ref Prov hydroCHLOROthiazide (HYDRODIURIL) 25 mg tablet Take 1 tablet (25 mg total) by mouth daily Indications: visible water retention. 10/14/23 Not In System Ref Prov meloxicam (MOBIC) 15 mg tablet Take 1 tablet (15 mg total) by mouth in the morning. Indications: joint damage causing pain and loss of function. Not In System Ref Prov mirabegron (MYRBETRIQ) 50 mg tablet extended release 24 hr Take 1 tablet (50 mg total) by mouth in the morning. Indications: urinary urgency, or the sudden urge to urinate. Not In System Ref Prov dtldddzi-evsb-QP-calcium &mins (THERAGRAN-M) 9 mg iron-400 mcg tablet Take 1 tablet by mouth inthe morning. Not In System Ref Prov SUMAtriptan (IMITREX) 25 mg tablet Take 1 tablet (25 mg total) by mouth once as needed for migraine. 05/16/24 Not In System Ref Prov tamsulosin (FLOMAX) 0.4 mg capsule Take 1 capsule (0.4 mg total) by mouth nightly. 06/28/24 SHAHZAD Carrasco zinc gluconate 50 mg tablet Take 1 tablet (50 mg total) by mouth in the morning. Not In System Ref Prov History : Past Medical History: Diagnosis Date Arthritis Calculus of ureterovesical junction (UVJ) 07/23/2024 Difficult intravenous access 07/23/2024 Has had PICC lines in the past Migraines 07/23/2024 6x year Septic shock ([facility]) 05/21/2024 Visual impairment glasses Past Surgical History: Procedure Laterality Date CYSTOSCOPY INSERTION STENT URETER Left 06/28/2024 Performed by Esme Chen MD at [facility] CYSTOSCOPY RETROGRADE PYELOGRAM Left 06/28/2024 Performed by Esme Chen MD at [facility] HYSTERECTOMY age 42's INGUINAL HERNIA REPAIR x2 pt unsure of date JOINT REPLACEMENT Bilateral pt unsure of when KIDNEY STONE SURGERY 2017 I had kidney stones blasted LASER HOLMIUM URETEROSCOPY RENAL STONES < OR=1CM; STONE BASKET EXTRACTION Left 06/28/2024 Performed by Esme Chen MD at [facility] REMOVAL TUBE NEPHROSTOMY Left 06/28/2024 Performed by Esme Chen MD at [facility] TONSILLECTOMY as a child UMBILICAL HERNIA REPAIR pt unsure of when URETERAL DILATION Left 06/28/2024 Performed by Esme Chen MD at [facility] Family History Problem Relation Age of Onset Diabetes Mother Peripheral vascular disease Mother Cancer Father Prostate cancer Father Nephrolithiasis Sister Nephrolithiasis Sister Nephrolithiasis Brother Anesthesia problems Neg Hx Stroke Neg Hx Bleeding Disorder Neg Hx Clotting disorder Neg Hx Breast cancer Neg Hx Ovarian cancer Neg Hx Colon cancer Neg Hx Heart attack Neg Hx Social History Socioeconomic History Marital status: Spouse name: Not on file Number of children: Not on file Years of education: Not on file Highest education level: Not on file Occupational History Not on file Tobacco Use Smoking status: Former Current packs/day: 0.00 Types: Cigarettes Quit date: 1997 Years since quittin.0 Passive exposure: Past Smokeless tobacco: Never Tobacco comments: 0.5ppd smoked on & off for about 20 years Vaping Use Vaping status: Never Used Substance and Sexual Activity Alcohol use: Never Drug use: Never Sexual activity: Defer Other Topics Concern Not on file Social History Narrative 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 Social Drivers of Health Financial Resource Strain: Not on file Food Insecurity: No Food Insecurity (07/23/2024) Hunger Screening Food Insecurity - Worry: Never True Food Insecurity - Inability: Never True Transportation Needs: No Transportation Needs (06/27/2024) PRAPARE - Transportation Lack of Transportation (Medical): No Lack of Transportation (Non-Medical): No Physical Activity: Not on file Stress: Not on file Social Connections: Not on file Interpersonal Safety: Patient Declined (06/27/2024) Humiliation, Afraid, Rape, and Kick questionnaire Fear of Current or Ex-Partner: Patient declined Emotionally Abused: Patient declined Physically Abused: Patient declined Sexually Abused: Patient declined Housing Instability: Low Risk (06/27/2024) Housing Instability Housing Instability: No Review of Systems Review of Systems Constitutional: Negative for fever, chills, diaphoresis, appetite change, fatigue and unexpected weight change. HENT: Positive for congestion. Negative for dental problem, ear discharge, ear pain, hearing loss, nosebleeds, rhinorrhea, sore throat, tinnitus and trouble swallowing. Eyes: Negative for pain, discharge and visual disturbance (wears glasses). Respiratory: Negative for cough, choking, shortness of breath and wheezing. Cardiovascular: Positive for leg swelling. Negative for chest pain, palpitations, PND and orthopnea. Gastrointestinal: Negative for nausea, vomiting, abdominal pain, diarrhea, constipation, blood in stool, anal bleeding, rectal pain and black tarry stool. Endocrine: Negative for polydipsia, polyphagia and polyuria. Genitourinary: Negative for dysuria, urgency, frequency, hematuria, decreased urine volume and enuresis. Musculoskeletal: Positive for myalgias, back pain and arthralgias (knees and back). Negative for joint swelling. Skin: Negative for rash. Neurological: Negative for dizziness, seizures, syncope, speech difficulty, weakness, light-headedness, numbness (occasional of hands) and headaches. Hematological: Bruises/bleeds easily. Psychiatric/Behavioral: Negative for dysphoric mood, sleep disturbance and suicidal ideas. The patient is not nervous/anxious. Vital Signs BP 147/87 Pulse 70 Temp 36.5 C (97.7 F) (Temporal) Resp 20 Ht 170.2 cm (5' 7 ) Wt (!) 142.8 kg (314 lb 13.1 oz) SpO2 96% BMI 49.31 kg/m Labs/Diagnostics: Recent Results (from the past 24 hours) Urinalysis Collection Time: 07/23/24 11:10 AM Result Value Ref Range Color YELLOW YELLOW^YELLOW Turbidity HAZY (A) CLEAR^CLEAR Specific gravity 1.012 1.003 - 1.035 Nitrite Negative Negative^Negative Ph urine 6.0 5.0 - 8.5 Leukocyte esterase Small (A) Negative^Negative Protein 50 (A) Negative^Negative mg/dL Glucose, Ur Negative Negative^Negative mg/dL Ketones urine Negative Negative^Negative mg/dL Urobilinogen <1.1 <1.1 eu/dL Bilirubin, urine Negative Negative^Negative Hemoglobin Large (A) Negative^Negative Mucus, UA PRESENT (A) NONE^NONE RBC 633 (H) 0 - 5 /hpf Squamous epithelium 1 0 - 5 /hpf WBC 2 0 - 5 /hpf Basic Metabolic Panel Collection Time: 07/23/24 11:22 AM Result Value Ref Range Sodium 138 134 - 146 mmol/L Potassium, Bld 3.6 3.5 - 5.0 mmol/L Chloride 101 98 - 109 mmol/L CO2 30 22 - 32 mmol/L Anion gap 7 5 - 15 mmol/L BUN 16 5 - 27 mg/dL Creatinine 0.68 0.40 - 1.00 mg/dL Glucose 96 65 - 99 mg/dL Calcium 9.0 8.5 - 10.5 mg/dL eGFR (CKD-EPI)non-race dependent >90 >59 ml/min/1.73sq.m X-ray chest 1 view Result Date: 05/21/2024 Single view chest XR CHEST 1 VW History: central venous line placement verification Comparison: May 21 at 4:24 AM current examination 2:20 PM Impression: * No consolidation or pleural fluid. No acute findings. * Central line placed at the superior vena cava. Poor inspiration without acute disease. No pneumothorax. Finalized by Jorge Mcdaniels MD on 05/21/2024 2:30 PM Physical Exam Physical Exam Constitutional She is oriented to person, place, and time. She appears well- developed and well-nourished. HENT Head Normocephalic and atraumatic. Ears Right Ear: External ear normal. Left Ear: External ear normal. Nose Nose normal. Mouth/Throat Throat: Oropharynx: oropharynx clear and moist Able to visualize hard and soft palate Eyes: Conjunctivae and EOM are normal. Pupils are equal, round, and reactive to light. Right eye exhibits no discharge. Left eye exhibits no discharge. Neck Normal range of motion. Neck supple. Negative for thyromegaly. Cardiovascular: Normal rate and regular rhythm. No murmur heard. Pulses: intact distal pulses Heart Sounds: normal heart sounds. no JVDno friction rub Pulmonary/Chest: Effort normal and breath sounds normal. Abdominal: Bowel sounds are normal. She exhibits no distension and no mass. Soft. There is no abdominal tenderness. There is no rebound and no guarding. Musculoskeletal: General: Edema present. No tenderness. Cervical back: Normal range of motion and neck supple. Neurological She is alert and oriented to person, place, and time. Skin: Skin is warm and dry. Psychiatric: She has a normal mood and affect. Her behavior is normal. Judgment and thought content normal. Assessment Calculus of LEFT ureterovesical junction 2. hypertension Plan Laser Holmium Ureteroscopy Renal Stones < Or=1cm - Left Cystoscopy Exchange Stent Ureter - Left Follow anesthesia guidelines regarding medications Tanya Perea APRN-[employer] 07/23/24 [id number] [employer] Work Phone: [phone]) 259-500012-31-2024 History and physical note* STEPHEN Nunez - 07/23/2024 10:30 AM EST PRE-OPERATIVE HISTORY AND PHYSICAL Exam Date: 07/23/24 Surgery Date: 07/31/24 PCP: OLMAN SHOEMAKER MD Surgeon: Esme Chen MD CC: Calculus of LEFT ureterovesical junction HPI: Sharri Murillo is a 68 y.o. female who presents for pre-op H&P for planned Laser Holmium Ureteroscopy Renal Stones < Or=1cm - Left Cystoscopy Exchange Stent Ureter - Left. She reports that she had a kidney stone removed in 2017 with lithotripsy. She reports that she began to feel ill at the end of April and was treated for a UTI. Her symptoms progressed to chills and sweats and she was seen in the emergency room at [place]. She was then transferred to [place]. In a review of the record, she was admitted on 05/21/24 secondary to septic shock caused by an obstructive stone resultingin left sided hydronephrosis. A left nephrostomy tube was placed and she was discharged to home on 05/26/24. She underwent a cystourethroscopy with left sided retrograde pyelography, ureteral dilation, semi-rigid ureteroscopy with holmium laser lithotripsy and stone basketing as well as a ureteral stent insertion and nephrostomy removal on 06/28/24. Stone analysis revealed 100% calcium oxalate monohydrate. She denies any current dysuria or hematuria. She has had some urinary urgency, frequency a nd incontinence that is longstanding. She denies any current fever, chills or sweats. She denies any abdominal or rectal pain. Allergies Allergen Reactions Sulfa (Sulfonamide Antibiotics) Hives Prior to Admission medications Medication Sig Start Date End Date Taking? Authorizing Provider ascorbic acid, vitamin C, (VITAMIN C) 1000 mg tablet Take 1 tablet (1,000 mg total) by mouth in themorning. Not In System Ref Prov aspirin 81 mg chewable tablet Chew 1 tablet (81 mg total) and swallow in the morning. 10/14/23 Not In System Ref Prov cholecalciferol, vitamin D3, 2,000 units tablet Take 1 tablet (2,000 Units total) by mouth in the morning. Not In System Ref Prov fesoterodine (TOVIAZ) 8 mg tablet extended release 24 hr Take 1 tablet (8 mg total) by mouth in themorning. Indications: urinary urgency, or the sudden urge to urinate. 02/13/24 Not In System Ref Prov hydroCHLOROthiazide (HYDRODIURIL) 25 mg tablet Take 1 tablet (25 mg total) by mouth daily Indications: visible water retention. 10/14/23 Not In System Ref Prov meloxicam (MOBIC) 15 mg tablet Take 1 tablet (15 mg total) by mouth in the morning. Indications: joint damage causing pain and loss of function. Not In System Ref Prov mirabegron (MYRBETRIQ) 50 mg tablet extended release 24 hr Take 1 tablet (50 mg total) by mouth in the morning. Indications: urinary urgency, or the sudden urge to urinate. Not In System Ref Prov bcuglwnn-zsaa-AE-calcium &mins (THERAGRAN-M) 9 mg iron-400 mcg tablet Take 1 tablet by mouth inthe morning. Not In System Ref Prov SUMAtriptan (IMITREX) 25 mg tablet Take 1 tablet (25 mg total) by mouth once as needed for migraine. 05/16/24 Not In System Ref Prov tamsulosin (FLOMAX) 0.4 mg capsule Take 1 capsule (0.4 mg total) by mouth nightly. 06/28/24 SHAHZAD Carrasco zinc gluconate 50 mg tablet Take 1 tablet (50 mg total) by mouth in the morning. Not In System Ref Prov History : Past Medical History: Diagnosis Date Arthritis Calculus of ureterovesical junction (UVJ) 07/23/2024 Difficult intravenous access 07/23/2024 Has had PICC lines in the past Migraines 07/23/2024 6x year Septic shock ([facility]) 05/21/2024 Visual impairment glasses Past Surgical History: Procedure Laterality Date CYSTOSCOPY INSERTION STENT URETER Left 06/28/2024 Performed by Esme Chen MD at [facility] CYSTOSCOPY RETROGRADE PYELOGRAM Left 06/28/2024 Performed by Esme Chen MD at [facility] HYSTERECTOMY age 42's INGUINAL HERNIA REPAIR x2 pt unsure of date JOINT REPLACEMENT Bilateral pt unsure of when KIDNEY STONE SURGERY 2017 I had kidney stones blasted LASER HOLMIUM URETEROSCOPY RENAL STONES < OR=1CM; STONE BASKET EXTRACTION Left 06/28/2024 Performed by Esme Chen MD at [facility] REMOVAL TUBE NEPHROSTOMY Left 06/28/2024 Performed by Esme Chen MD at [facility] TONSILLECTOMY as a child UMBILICAL HERNIA REPAIR pt unsure of when URETERAL DILATION Left 06/28/2024 Performed by Esme Chen MD at [facility] Family History Problem Relation Age of Onset Diabetes Mother Peripheral vascular disease Mother Cancer Father Prostate cancer Father Nephrolithiasis Sister Nephrolithiasis Sister Nephrolithiasis Brother Anesthesia problems Neg Hx Stroke Neg Hx Bleeding Disorder Neg Hx Clotting disorder Neg Hx Breast cancer Neg Hx Ovarian cancer Neg Hx Colon cancer Neg Hx Heart attack Neg Hx Social History Socioeconomic History Marital status: Spouse name: Not on file Number of children: Not on file Years of education: Not on file Highest education level: Not on file Occupational History Not on file Tobacco Use Smoking status: Former Current packs/day: 0.00 Types: Cigarettes Quit date: 1997 Years since quittin.0 Passive exposure: Past Smokeless tobacco: Never Tobacco comments: 0.5ppd smoked on & off for about 20 years Vaping Use Vaping status: Never Used Substance and Sexual Activity Alcohol use: Never Drug use: Never Sexual activity: Defer Other Topics Concern Not on file Social History Narrative 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 Social Drivers of Health Financial Resource Strain: Not on file Food Insecurity: No Food Insecurity (07/23/2024) Hunger Screening Food Insecurity - Worry: Never True Food Insecurity - Inability: Never True Transportation Needs: No Transportation Needs (06/27/2024) PRAPARE - Transportation Lack of Transportation (Medical): No Lack of Transportation (Non-Medical): No Physical Activity: Not on file Stress: Not on file Social Connections: Not on file Interpersonal Safety: Patient Declined (06/27/2024) Humiliation, Afraid, Rape, and Kick questionnaire Fear of Current or Ex-Partner: Patient declined Emotionally Abused: Patient declined Physically Abused: Patient declined Sexually Abused: Patient declined Housing Instability: Low Risk (06/27/2024) Housing Instability Housing Instability: No Review of Systems Review of Systems Constitutional: Negative for fever, chills, diaphoresis, appetite change, fatigue and unexpected weight change. HENT: Positive for congestion. Negative for dental problem, ear discharge, ear pain, hearing loss, nosebleeds, rhinorrhea, sore throat, tinnitus and trouble swallowing. Eyes: Negative for pain, discharge and visual disturbance (wears glasses). Respiratory: Negative for cough, choking, shortness of breath and wheezing. Cardiovascular: Positive for leg swelling. Negative for chest pain, palpitations, PND and orthopnea. Gastrointestinal: Negative for nausea, vomiting, abdominal pain, diarrhea, constipation, blood in stool, anal bleeding, rectal pain and black tarry stool. Endocrine: Negative for polydipsia, polyphagia and polyuria. Genitourinary: Negative for dysuria, urgency, frequency, hematuria, decreased urine volume and enuresis. Musculoskeletal: Positive for myalgias, back pain and arthralgias (knees and back). Negative for joint swelling. Skin: Negative for rash. Neurological: Negative for dizziness, seizures, syncope, speech difficulty, weakness, light-headedness, numbness (occasional of hands) and headaches. Hematological: Bruises/bleeds easily. Psychiatric/Behavioral: Negative for dysphoric mood, sleep disturbance and suicidal ideas. The patient is not nervous/anxious. Vital Signs BP 147/87 Pulse 70 Temp 36.5 C (97.7 F) (Temporal) Resp 20 Ht 170.2 cm (5' 7 ) Wt (!) 142.8 kg (314 lb 13.1 oz) SpO2 96% BMI 49.31 kg/m Labs/Diagnostics: Recent Results (from the past 24 hours) Urinalysis Collection Time: 07/23/24 11:10 AM Result Value Ref Range Color YELLOW YELLOW^YELLOW Turbidity HAZY (A) CLEAR^CLEAR Specific gravity 1.012 1.003 - 1.035 Nitrite Negative Negative^Negative Ph urine 6.0 5.0 - 8.5 Leukocyte esterase Small (A) Negative^Negative Protein 50 (A) Negative^Negative mg/dL Glucose, Ur Negative Negative^Negative mg/dL Ketones urine Negative Negative^Negative mg/dL Urobilinogen <1.1 <1.1 eu/dL Bilirubin, urine Negative Negative^Negative Hemoglobin Large (A) Negative^Negative Mucus, UA PRESENT (A) NONE^NONE RBC 633 (H) 0 - 5 /hpf Squamous epithelium 1 0 - 5 /hpf WBC 2 0 - 5 /hpf Basic Metabolic Panel Collection Time: 07/23/24 11:22 AM Result Value Ref Range Sodium 138 134 - 146 mmol/L Potassium, Bld 3.6 3.5 - 5.0 mmol/L Chloride 101 98 - 109 mmol/L CO2 30 22 - 32 mmol/L Anion gap 7 5 - 15 mmol/L BUN 16 5 - 27 mg/dL Creatinine 0.68 0.40 - 1.00 mg/dL Glucose 96 65 - 99 mg/dL Calcium 9.0 8.5 - 10.5 mg/dL eGFR (CKD-EPI)non-race dependent >90 >59 ml/min/1.73sq.m X-ray chest 1 view Result Date: 05/21/2024 Single view chest XR CHEST 1 VW History: central venous line placement verification Comparison: May 21 at 4:24 AM current examination 2:20 PM Impression: * No consolidation or pleural fluid. No acute findings. * Central line placed at the superior vena cava. Poor inspiration without acute disease. No pneumothorax. Finalized by Jorge Mcdaniels MD on 05/21/2024 2:30 PM Physical Exam Physical Exam Constitutional She is oriented to person, place, and time. She appears well- developed and well-nourished. HENT Head Normocephalic and atraumatic. Ears Right Ear: External ear normal. Left Ear: External ear normal. Nose Nose normal. Mouth/Throat Throat: Oropharynx: oropharynx clear and moist Able to visualize hard and soft palate Eyes: Conjunctivae and EOM are normal. Pupils are equal, round, and reactive to light. Right eye exhibits no discharge. Left eye exhibits no discharge. Neck Normal range of motion. Neck supple. Negative for thyromegaly. Cardiovascular: Normal rate and regular rhythm. No murmur heard. Pulses: intact distal pulses Heart Sounds: normal heart sounds. no JVDno friction rub Pulmonary/Chest: Effort normal and breath sounds normal. Abdominal: Bowel sounds are normal. She exhibits no distension and no mass. Soft. There is no abdominal tenderness. There is no rebound and no guarding. Musculoskeletal: General: Edema present. No tenderness. Cervical back: Normal range of motion and neck supple. Neurological She is alert and oriented to person, place, and time. Skin: Skin is warm and dry. Psychiatric: She has a normal mood and affect. Her behavior is normal. Judgment and thought content normal. Assessment Calculus of LEFT ureterovesical junction 2. hypertension Plan Laser Holmium Ureteroscopy Renal Stones < Or=1cm - Left Cystoscopy Exchange Stent Ureter - Left Follow anesthesia guidelines regarding medications STEPHEN Nunez 07/23/24 1629 [facility]* Patient Instructions* Danay Peraza RN - 07/23/2024 10:30 AM EST Your surgery/procedure is scheduled at [facility] on 07-31-2024 at 3:30pm Arrival Time: 1:30pm [facility] Address: [address] [place] [address] in Parking lot located on [facility]. Report to the Entrance B. Check in at the information desk the surgery. The waiting room located on the second floor. If you have any questions prior to surgery, please call Pre-Admission Clinic at [phone] between 7:30 am and 4:30 pm Monday through Monday. If you have questions the morning of surgery, please call the Pre-op Department at [phone]. Notify your SURGEON if you develop any illness such as a cold, cough, fever, sore throat, vomiting or are hospitalized between now and your surgery. Medication Instructions (Do not stop your medications without consulting the prescribing physician). Take the following medications the morning of surgery with a sip of water: Toviaz and Myrbetriq Diabetic or Weight loss medications: N/A Take inhalers as prescribed the morning of surgery. Due to the risk associated with these medications. If these medications are not held per instruction below, your surgery is at an increased risk for cancellation. SGLT2 Medications- Hold 3 days prior to surgery: Jardiance, Empagliflozin, Farxiga, Dapagliflozin, Invokana, Canagliflozin, Trijardy, Synjardy GLP-1 Medications (Injection or Pill)- If taken daily hold day of surgery. If taken weekly, hold 1 week prior to surgery: Adlyxin, Byetta, Bydureon, Ozempic, Rybelsus,Trulicity, Victoza, Wegovy, Lixisenatide, Exenatide, Semaglutide, Dulaglutide, Liraglutide GIP/GLP-1(Injection or Pill)- If taken daily hold day of surgery. If taken weekly, hold 1 week prior to surgery: Lucio . Blood thinners: Please contact your prescribing physician regarding a stop/hold date for these medications. Medications such as Coumadin, Heparin, Aspirin, Plavix, Eliquis, Pradaxa Diabetics: If you take insulin, contact your prescribing doctor for instructions on how to manage this the night before and the morning of surgery. Non-steriodal Anti-Inflammatory Drugs (NSAIDS)- Hold 3 days prior to surgery unless otherwise directed by your surgeon. Vitamins/Herbal Products: You may continue to take your prescribed vitamins such as potassium, iron, vitamin B, vitamin C, or multivitamin unless specifically instructed by your surgeon to hold. STOPtaking all herbal products/teas one week prior to your surgery. Marijuana: Stop marijuana 72 hours prior to surgery, stop CBD oil 48 hours prior to surgery. If you have been given bowel prep instructions by your surgeon, please call the surgeon's office with any questions about these instructions. What do I do the day of Surgery? Age 2 through adult - Stop all solids by midnight, You may have clear liquids up to 2 hours before surgery, unless otherwise instructed by your surgeon. Clear liquids are: water, sports drinks such as Gatorade or G2, or apple juice. You may NOT have: tube feedings, dairy products, alcoholic beverages, orange juice, or any liquids with solids or pulp in it. If applicable, shower again with CHG soap the morning of your surgery. If you received a green plastic bracelet, bring it with you the day of surgery and your nurse will put it on you. In order to help prevent infection post-operatively, you may be asked to use a CHG mouthwash when you arrive to the Pre-op area. Your nurse will provide instruction the morning of. What do I need to do to prepare for surgery? If you will be going home the same day as your surgery, arrange for an adult over [address] Riding in a bus or taxi by yourself is not permitted. You should not smoke or drink alcohol 24 hours before your surgery. Alcohol thins the blood and may cause bleeding problems during surgery. Smoking increases the risk of breathing problems after surgery. Do not use lotions, creams, powders, perfume, make up, cologne or after-shaves day of surgery. Remove ALL jewelry including wedding rings, body piercings (including dermal piercings ,hair extensions that contain metal, nail qatari, make-up, and contact lens. You may brush your teeth the morning of surgery, but do not swallow the water. Wear your dentures and partial plates to the hospital (no adhesive). Shower the night the before. If applicable, use the CHG (chlorhexidine gluconate) soap or wipes What should I bring to the hospital? If you received a green plastic bracelet, bring it with you the day of surgery and your nurse will put it on you. Eyeglass or contact lens case If you will be spending the night, please bring personal care items and leave them in the car untilyou are taken to your room after surgery. Leave ALL valuables at home. If any of these instructions conflict with those you received from the surgeon, please seek clarification from your surgeon's office. DEEP BREATHING EXERCISES This exercise helps promote good air exchange and helps to prevent pneumonia after surgery. Breathe in slowly and deeply through the nose. Hold your breath for a few seconds and then exhale slowly through the mouth. Repeat this three times and then cough.Coughing helps to clear your lungs. If you have had a surgery with an incision into your abdomen or chest, press gently against your incision with a pillow or a folded blanket when you cough. Please be aware - it may not be caldera to cough following some types of surgeries involving the eyes,ears, sinuses and throat. Always follow your doctor's instructions. LEG EXERCISE These exercises help promote good circulation and help to prevent blood clots after surgery. Point your toes to the ceiling and then point them to the wall. Do this slowly about 15-20 times. You may also move your feet in circles. Do the exercise that is most comfortable for you. If you have had surgery involving your shoulder or arm, we recommend you move your fingers. PRACTICING We ask that you begin practicing these exercises before your surgery. After surgery try to do both exercises at least every 2 hours during the day and early evening. SURGICAL SITE INFECTION PREVENTION What is a Surgical Site Infection? Infection can happen to the area of the body where surgery is done. This is called a surgical site infection (SSI). A SSI does not happen very often. Can SSIs be treated? Antibiotics are used to treat SSI. Some patients may need another surgery to treat the infection. The doctor will discuss treatment options with you. What are some of the things that hospitals are doing to prevent SSIs? Soap and water or alcohol hand rub are used before and after caring for each patient. Special soap is used to clean surgery workers hands and arms just before the surgery. Masks, gowns, gloves and hair covers are worn during the surgery to keep the area clean. Hair in the surgery area may be removed with clippers (not razors). A special soap that kills germs is used to clean the skin at the surgery site. Antibiotics may be given before the surgery starts. What can you do to prevent SSIs? Before surgery: You may be asked to shower or bathe with a special soap that kills germs the night before and the day of surgery. Use the soap as you were told. If you smoke, stop or cut down. Ask your doctor about ways to quit. Do not shave near where you will have surgery. Shaving can irritate the skin and make it easier to get and infection. After surgery: Be sure that the doctors and nurses clean their hands before and after touching you. Be sure your family and friends clean their hands before and after visiting you. Do not be afraid to remind them. * Care for your wound at home as told by your doctor or nurse * Call your doctor right away if you have fever, redness, increased pain, or drainage at the surgery site. Further questions? Contact the doctor, nurse or the Infection Prevention and Control department if you have any questions. PATIENT RIGHTS AND RESPONSIBILITIES As a patient at [facility], you have the right to: Receive medical care and be informed of who is taking care of you Be treated with dignity and respect Have a family member/bottling equipment sales representative of choice and your physician notified of your admission Receive information and actively participate in decisions about your care and treatment Refuse care, treatment and services Decide who may provide your support and speak for you Access zoroastrian and spiritual services Participate in ethical issues and questions about your care Receive private and confidential care Have appropriate assessment and management of your pain Know guest visitation restrictions or limitations Have an advance directive Access protective services Consent or refuse to participate in research studies or production or recordings, films or other images Have resolution of your complaints Receive information of hospital charges and payment methods Patient/patient bottling equipment sales representative responsibilities are to: Provide information about health status to facilitate care, treatment and services Follow the treatment, plan, keep appointments and speak up when you do not understand the plan Respect the rights of other patients and healthcare personnel Follow organizational rules and regulations that support quality care and a safe environment Fulfill financial obligations as promptly as possible documented in this [facility]12-07-2024 Miscellaneous Notes* Telephone Encounter - Esme Chen MD - 06/29/2024 10:36 PM EST Patient had left ureteroscopy with holmium laser lithotripsy of distal ureteral stone with me on 06/28/2024. Needs to be scheduled for cystoscopy with left ureteroscopy and holmium laser lithotripsy of renal stone with stent exchange, 1.5 hours, [facility] next available with me. Need CVAC or steerable access sheath (ClearPetra) available. Urine culture 1 week before. Thanks. documented in this [facility]12-07-2024 Telephone encounter Note* Telephone Encounter - Esme Chen MD - 06/29/2024 10:36 PM EST Patient had left ureteroscopy with holmium laser lithotripsy of distal ureteral stone with me on 06/28/2024. Needs to be scheduled for cystoscopy with left ureteroscopy and holmium laser lithotripsy of renal stone with stent exchange, 1.5 hours, [facility] next available with me. Need CVAC or steerable access sheath (ClearPetra) available. Urine culture 1 week before. Thanks. [facility]11-22-[facility] Instructions* Pre-Procedure Instructions - Regi Rivera RN - 06/14/2024 11:30 AM EST Your surgery/procedure is scheduled at [facility] on 06/28/24 at 1 pm Arrival Time 11 am [facility] Address: [address] [place] [address]. [place] [address] [address]ing [address] located on [facility]. Report to the Entrance B. Check in at the information desk the surgery. The waiting room located on the second floor. If you have any questions prior to surgery, please call Pre-Admission Clinic at [phone] between 7:30 am and 4:30 pm Monday through Monday. If you have questions the morning of surgery, please call the Pre-op Department at [phone]. Notify your SURGEON if you develop any illness such as a cold, cough, fever, sore throat, vomiting or are hospitalized between now and your surgery. Medication Instructions (Do not stop your medications without consulting the prescribing physician). Take the following medications the morning of surgery with a sip of water: fesoterodine Diabetic or Weight loss medications: HOLD n/a LAST DOSE n/a Take inhalers as prescribed the morning of surgery. Due to the risk associated with these medications. If these medications are not held per instruction below, your surgery is at an increased risk for cancellation. SGLT2 Medications- Hold 3 days prior to surgery: Jardiance, Empagliflozin, Farxiga, Dapagliflozin, Invokana, Canagliflozin, Trijardy, Synjardy GLP-1 Medications (Injection or Pill)- If taken daily hold day of surgery. If taken weekly, hold 1 week prior to surgery: Adlyxin, Byetta, Bydureon, Ozempic, Rybelsus,Trulicity, Victoza, Wegovy, Lixisenatide, Exenatide, Semaglutide, Dulaglutide, Liraglutide GIP/GLP-1(Injection or Pill)- If taken daily hold day of surgery. If taken weekly, hold 1 week prior to surgery: Mounjaro . Blood thinners: Please contact your prescribing physician regarding a stop/hold date for these medications. Medications such as Coumadin, Heparin, Aspirin, Plavix, Eliquis, Pradaxa Diabetics: If you take insulin, contact your prescribing doctor for instructions on how to manage this the night before and the morning of surgery. Non-steriodal Anti-Inflammatory Drugs (NSAIDS)- Hold 3 days prior to surgery unless otherwise directed by your surgeon. Vitamins/Herbal Products: You may continue to take your prescribed vitamins such as potassium, iron, vitamin B, vitamin C, or multivitamin unless specifically instructed by your surgeon to hold. STOPtaking all herbal products/teas one week prior to your surgery. Marijuana: Stop marijuana 72 hours prior to surgery, stop CBD oil 48 hours prior to surgery. If you have been given bowel prep instructions by your surgeon, please call the surgeon's office with any questions about these instructions. What do I do the day of Surgery? Age 2 through adult - Stop all solids by midnight, You may have clear liquids up to 2 hours before surgery, unless otherwise instructed by your surgeon. Clear liquids are: water, sports drinks such as Gatorade or G2, or apple juice. You may NOT have: tube feedings, dairy products, alcoholic beverages, orange juice, or any liquids with solids or pulp in it. If applicable, shower again with CHG soap the morning of your surgery. If you received a green plastic bracelet, bring it with you the day of surgery and your nurse will put it on you. In order to help prevent infection post-operatively, you may be asked to use a CHG mouthwash when you arrive to the Pre-op area. Your nurse will provide instruction the morning of. What do I need to do to prepare for surgery? If you will be going home the same day as your surgery, arrange for an adult over [address] Riding in a bus or taxi by yourself is not permitted. You should not smoke or drink alcohol 24 hours before your surgery. Alcohol thins the blood and may cause bleeding problems during surgery. Smoking increases the risk of breathing problems after surgery. Do not use lotions, creams, powders, perfume, make up, cologne or after-shaves day of surgery. Remove ALL jewelry including wedding rings, body piercings (including dermal piercings ,hair extensions that contain metal, nail qatari, make-up, and contact lens. You may brush your teeth the morning of surgery, but do not swallow the water. Wear your dentures and partial plates to the hospital (no adhesive). Shower the night the before. If applicable, use the CHG (chlorhexidine gluconate) soap or wipes What should I bring to the hospital? If you received a green plastic bracelet, bring it with you the day of surgery and your nurse will put it on you. Eyeglass or contact lens case If you will be spending the night, please bring personal care items and leave them in the car untilyou are taken to your room after surgery. Leave ALL valuables at home. If any of these instructions conflict with those you received from the surgeon, please seek clarification from your surgeon's office. DEEP BREATHING EXERCISES This exercise helps promote good air exchange and helps to prevent pneumonia after surgery. Breathe in slowly and deeply through the nose. Hold your breath for a few seconds and then exhale slowly through the mouth. Repeat this three times and then cough.Coughing helps to clear your lungs. If you have had a surgery with an incision into your abdomen or chest, press gently against your incision with a pillow or a folded blanket when you cough. Please be aware - it may not be caldera to cough following some types of surgeries involving the eyes,ears, sinuses and throat. Always follow your doctor's instructions. LEG EXERCISE These exercises help promote good circulation and help to prevent blood clots after surgery. Point your toes to the ceiling and then point them to the wall. Do this slowly about 15-20 times. You may also move your feet in circles. Do the exercise that is most comfortable for you. If you have had surgery involving your shoulder or arm, we recommend you move your fingers. PRACTICING We ask that you begin practicing these exercises before your surgery. After surgery try to do both exercises at least every 2 hours during the day and early evening. SURGICAL SITE INFECTION PREVENTION What is a Surgical Site Infection? Infection can happen to the area of the body where surgery is done. This is called a surgical site infection (SSI). A SSI does not happen very often. Can SSIs be treated? Antibiotics are used to treat SSI. Some patients may need another surgery to treat the infection. The doctor will discuss treatment options with you. What are some of the things that hospitals are doing to prevent SSIs? Soap and water or alcohol hand rub are used before and after caring for each patient. Special soap is used to clean surgery workers hands and arms just before the surgery. Masks, gowns, gloves and hair covers are worn during the surgery to keep the area clean. Hair in the surgery area may be removed with clippers (not razors). A special soap that kills germs is used to clean the skin at the surgery site. Antibiotics may be given before the surgery starts. What can you do to prevent SSIs? Before surgery: You may be asked to shower or bathe with a special soap that kills germs the night before and the day of surgery. Use the soap as you were told. If you smoke, stop or cut down. Ask your doctor about ways to quit. Do not shave near where you will have surgery. Shaving can irritate the skin and make it easier to get and infection. After surgery: Be sure that the doctors and nurses clean their hands before and after touching you. Be sure your family and friends clean their hands before and after visiting you. Do not be afraid to remind them. * Care for your wound at home as told by your doctor or nurse * Call your doctor right away if you have fever, redness, increased pain, or drainage at the surgery site. Further questions? Contact the doctor, nurse or the Infection Prevention and Control department if you have any questions. PATIENT RIGHTS AND RESPONSIBILITIES As a patient at [facility], you have the right to: Receive medical care and be informed of who is taking care of you Be treated with dignity and respect Have a family member/bottling equipment sales representative of choice and your physician notified of your admission Receive information and actively participate in decisions about your care and treatment Refuse care, treatment and services Decide who may provide your support and speak for you Access zoroastrian and spiritual services Participate in ethical issues and questions about your care Receive private and confidential care Have appropriate assessment and management of your pain Know guest visitation restrictions or limitations Have an advance directive Access protective services Consent or refuse to participate in research studies or production or recordings, films or other images Have resolution of your complaints Receive information of hospital charges and payment methods Patient/patient bottling equipment sales representative responsibilities are to: Provide information about health status to facilitate care, treatment and services Follow the treatment, plan, keep appointments and speak up when you do not understand the plan Respect the rights of other patients and healthcare personnel Follow organizational rules and regulations that support quality care and a safe environment Fulfill financial obligations as promptly as possible [facility]11-22-2024 Miscellaneous Notes* Pre-Procedure Instructions - Regi Rivera RN - 06/14/2024 11:30 AM EST Your surgery/procedure is scheduled at [facility] on 06/28/24 at 1 pm Arrival Time 11 am [facility] Address: [address] [place] [address] Park in [address] Parking lot located on [facility]. Report to the Entrance B. Check in at the information desk the surgery. The waiting room located on the second floor. If you have any questions prior to surgery, please call Pre-Admission Clinic at [phone] between 7:30 am and 4:30 pm Monday through Monday. If you have questions the morning of surgery, please call the Pre-op Department at [phone]. Notify your SURGEON if you develop any illness such as a cold, cough, fever, sore throat, vomiting or are hospitalized between now and your surgery. Medication Instructions (Do not stop your medications without consulting the prescribing physician). Take the following medications the morning of surgery with a sip of water: fesoterodine Diabetic or Weight loss medications: HOLD n/a LAST DOSE n/a Take inhalers as prescribed the morning of surgery. Due to the risk associated with these medications. If these medications are not held per instruction below, your surgery is at an increased risk for cancellation. SGLT2 Medications- Hold 3 days prior to surgery: Jardiance, Empagliflozin, Farxiga, Dapagliflozin, Invokana, Canagliflozin, Trijardy, Synjardy GLP-1 Medications (Injection or Pill)- If taken daily hold day of surgery. If taken weekly, hold 1 week prior to surgery: Adlyxin, Byetta, Bydureon, Ozempic, Rybelsus,Trulicity, Victoza, Wegovy, Lixisenatide, Exenatide, Semaglutide, Dulaglutide, Liraglutide GIP/GLP-1(Injection or Pill)- If taken daily hold day of surgery. If taken weekly, hold 1 week prior to surgery: Lucio . Blood thinners: Please contact your prescribing physician regarding a stop/hold date for these medications. Medications such as Coumadin, Heparin, Aspirin, Plavix, Eliquis, Pradaxa Diabetics: If you take insulin, contact your prescribing doctor for instructions on how to manage this the night before and the morning of surgery. Non-steriodal Anti-Inflammatory Drugs (NSAIDS)- Hold 3 days prior to surgery unless otherwise directed by your surgeon. Vitamins/Herbal Products: You may continue to take your prescribed vitamins such as potassium, iron, vitamin B, vitamin C, or multivitamin unless specifically instructed by your surgeon to hold. STOPtaking all herbal products/teas one week prior to your surgery. Marijuana: Stop marijuana 72 hours prior to surgery, stop CBD oil 48 hours prior to surgery. If you have been given bowel prep instructions by your surgeon, please call the surgeon's office with any questions about these instructions. What do I do the day of Surgery? Age 2 through adult - Stop all solids by midnight, You may have clear liquids up to 2 hours before surgery, unless otherwise instructed by your surgeon. Clear liquids are: water, sports drinks such as Gatorade or G2, or apple juice. You may NOT have: tube feedings, dairy products, alcoholic beverages, orange juice, or any liquids with solids or pulp in it. If applicable, shower again with CHG soap the morning of your surgery. If you received a green plastic bracelet, bring it with you the day of surgery and your nurse will put it on you. In order to help prevent infection post-operatively, you may be asked to use a CHG mouthwash when you arrive to the Pre-op area. Your nurse will provide instruction the morning of. What do I need to do to prepare for surgery? If you will be going home the same day as your surgery, arrange for an adult over [address] Riding in a bus or taxi by yourself is not permitted. You should not smoke or drink alcohol 24 hours before your surgery. Alcohol thins the blood and may cause bleeding problems during surgery. Smoking increases the risk of breathing problems after surgery. Do not use lotions, creams, powders, perfume, make up, cologne or after-shaves day of surgery. Remove ALL jewelry including wedding rings, body piercings (including dermal piercings ,hair extensions that contain metal, nail qatari, make-up, and contact lens. You may brush your teeth the morning of surgery, but do not swallow the water. Wear your dentures and partial plates to the hospital (no adhesive). Shower the night the before. If applicable, use the CHG (chlorhexidine gluconate) soap or wipes What should I bring to the hospital? If you received a green plastic bracelet, bring it with you the day of surgery and your nurse will put it on you. Eyeglass or contact lens case If you will be spending the night, please bring personal care items and leave them in the car untilyou are taken to your room after surgery. Leave ALL valuables at home. If any of these instructions conflict with those you received from the surgeon, please seek clarification from your surgeon's office. DEEP BREATHING EXERCISES This exercise helps promote good air exchange and helps to prevent pneumonia after surgery. Breathe in slowly and deeply through the nose. Hold your breath for a few seconds and then exhale slowly through the mouth. Repeat this three times and then cough.Coughing helps to clear your lungs. If you have had a surgery with an incision into your abdomen or chest, press gently against your incision with a pillow or a folded blanket when you cough. Please be aware - it may not be [place] to cough following some types of surgeries involving the eyes,ears, sinuses and throat. Always follow your doctor's instructions. LEG EXERCISE These exercises help promote good circulation and help to prevent blood clots after surgery. Point your toes to the ceiling and then point them to the wall. Do this slowly about 15-20 times. You may also move your feet in circles. Do the exercise that is most comfortable for you. If you have had surgery involving your shoulder or arm, we recommend you move your fingers. PRACTICING We ask that you begin practicing these exercises before your surgery. After surgery try to do both exercises at least every 2 hours during the day and early evening. SURGICAL SITE INFECTION PREVENTION What is a Surgical Site Infection? Infection can happen to the area of the body where surgery is done. This is called a surgical site infection (SSI). A SSI does not happen very often. Can SSIs be treated? Antibiotics are used to treat SSI. Some patients may need another surgery to treat the infection. The doctor will discuss treatment options with you. What are some of the things that hospitals are doing to prevent SSIs? Soap and water or alcohol hand rub are used before and after caring for each patient. Special soap is used to clean surgery workers hands and arms just before the surgery. Masks, gowns, gloves and hair covers are worn during the surgery to keep the area clean. Hair in the surgery area may be removed with clippers (not razors). A special soap that kills germs is used to clean the skin at the surgery site. Antibiotics may be given before the surgery starts. What can you do to prevent SSIs? Before surgery: You may be asked to shower or bathe with a special soap that kills germs the night before and the day of surgery. Use the soap as you were told. If you smoke, stop or cut down. Ask your doctor about ways to quit. Do not shave near where you will have surgery. Shaving can irritate the skin and make it easier to get and infection. After surgery: Be sure that the doctors and nurses clean their hands before and after touching you. Be sure your family and friends clean their hands before and after visiting you. Do not be afraid to remind them. * Care for your wound at home as told by your doctor or nurse * Call your doctor right away if you have fever, redness, increased pain, or drainage at the surgery site. Further questions? Contact the doctor, nurse or the Infection Prevention and Control department if you have any questions. PATIENT RIGHTS AND RESPONSIBILITIES As a patient at [facility], you have the right to: Receive medical care and be informed of who is taking care of you Be treated with dignity and respect Have a family member/bottling equipment sales representative of choice and your physician notified of your admission Receive information and actively participate in decisions about your care and treatment Refuse care, treatment and services Decide who may provide your support and speak for you Access zoroastrian and spiritual services Participate in ethical issues and questions about your care Receive private and confidential care Have appropriate assessment and management of your pain Know guest visitation restrictions or limitations Have an advance directive Access protective services Consent or refuse to participate in research studies or production or recordings, films or other images Have resolution of your complaints Receive information of hospital charges and payment methods Patient/patient bottling equipment sales representative responsibilities are to: Provide information about health status to facilitate care, treatment and services Follow the treatment, plan, keep appointments and speak up when you do not understand the plan Respect the rights of other patients and healthcare personnel Follow organizational rules and regulations that support quality care and a safe environment Fulfill financial obligations as promptly as possible documented [facility] Evaluation note* Diagnosis Onset Date Resolution Status Admit Date Elevated liver function tests acuteNovember 2023 2:12pmSepsisacuteNovember 2023 2:12pm [facility] Work Phone: 1(416) 822-619511-04-2024 Miscellaneous Notes* Telephone Encounter - SENA Vidal - 05/27/2024 1:19 PM EST Audra from [facility] is calling because there are no orders for dressing changes, bag changes,etc. Are you the one to do this for the pt? * Telephone Encounter - Esme Chen MD - 05/27/2024 1:19 PM EST Dressing change weekly, flush with 10 mL sterile saline as needed for no drainage, no bag change for now. Thanks. * Telephone Encounter - SENA Vidal - 05/27/2024 1:19 PM EST I tried calling Audra back, , and her vm is full. documented in this encounterMount [facility]11-04-2024 Telephone encounter Note* Telephone Encounter - SENA Vidal - 05/27/2024 1:19 PM EST Audra from [facility] is calling because there are no orders for dressing changes, bag changes,etc. Are you the one to do this for the pt? [employer]11-04-2024 Telephone encounter Note* Telephone Encounter - Esme Chen MD - 05/27/2024 1:19 PM EST Dressing change weekly, flush with 10 mL sterile saline as needed for no drainage, no bag change for now. Thanks. [employer] Work Phone: [phone]) 507-653111-04-2024 Telephone encounter Note* Telephone Encounter - SENA Vidal - 05/27/2024 1:19 PM EST I tried calling Audra dhillon, , and her vm is full. [facility] [id number] Progress note* Significant Event - Disha Mckeon RN - 05/26/2024 3:50 PM EST Leaving with to car currently [facility] [employer] [id number] Miscellaneous Notes* Significant Event - Disha Mckeon RN - 05/26/2024 3:50 PM EST Leaving with to car currently * Plan of Care - Disha Mckeon RN - 05/26/2024 2:47 PM EST Problem: Pain Goal: Patient goal is pain score less than 4, able to rest, and participant in treatment plan as appropriate Description: INTERVENTIONS: 1. Encourage patient or legal bottling equipment sales representative to report early pain and ask for pain medicine when needed 2. Assess pain using appropriate pain scale and include the scale used when documenting 3. Administer analgesics based on type and severity of pain and evaluate response within appropriate time frame 4. Implement non-pharmacological measures as appropriate and evaluate response 5. Consider cultural and social influences on pain and pain management 6. Notify LIP if interventions ineffective or patient reports new pain 7. Monitor vital signs including pulse ox, end-tidal CO2 based on pain intervention 8. Reassess pain per policy 9. Teach patient or legal bottling equipment sales representative interventions for comforting Outcome: Completed Note: Evaluation of progress towards goal: Goal met Problem: Safety Goal: Patient will be injury free during hospitalization Description: INTERVENTIONS: 1. Assess patient's risk for falls and implement fall prevention plan of care per policy 2. Provide and maintain a safe environment 3. Proper use of double Identifiers 4. Medication administration using the 5 rights 5. Hand hygiene 6. Specimens are labeled at the bedside 7. Instruct patient/ patient bottling equipment sales representative about use of safety devices 8. Include patient/ patient bottling equipment sales representative in decisions related to safety Outcome: Completed Note: Evaluation of progress towards goal: goal met Problem: Infection Goal: Absence of infection during hospitalization Description: Interventions: 1. Assess and monitor for signs and symptoms of infection 2. Monitor lab/diagnostic results 3. Monitor all insertion sites i.e., indwelling lines, tubes and drains 4. Monitor endotracheal (as able) and nasal secretions for changes in amount and color 5. Administer medications as ordered 6. Instruct and encourage patient and family to use good hand hygiene technique 7. Identify and instruct patient/patient bottling equipment sales representative in use of appropriate isolation precautionsfor identified infection/symptoms 8. Provide and discuss with patient/patient bottling equipment sales representative on educational MDRO sheet 9. Encourage and monitor nutritional status daily and consult hardness inspector if indicated 10. Implement neutropenic guidelines as needed 11. Review exposure to history of communicable disease and recent travel history on admission 12. Encourage annual influenza vaccine 13. Encourage pneumonia vaccine Outcome: Completed Note: Evaluation of progress towards goal: goal met Problem: Knowledge Deficit Goal: Patient/patient bottling equipment sales representative demonstrates understanding of disease process, treatment plan,medications, and discharge instructions Description: INTERVENTIONS 1. Complete learning assessment and assess knowledge base 2. Provide teaching at level of understanding 3. Provide teaching via preferred learning method(s) Outcome: Completed Note: Evaluation of progress towards goal: education completed Problem: Discharge Planning Goal: Discharge to post-acute care, other facility, or home with appropriate resources Description: Patient's goal is: INTERVENTIONS 1. Conduct assessment to determine patient/family and health care team treatment goals, and need for post-acute services based on payer coverage, community resources, and patient preferences, and barriers to discharge 2. Coordinate with Social work, Care Navigation, and Utilization Review to arrange appropriate level of services according to patient's needs based on patient preference and payer coverage in collaboration with the physician and health care team 3. Address psychosocial, clinical, and financial barriers to discharge as identified in assessment in conjunction with the patient/family and health care team 4. Consult appropriate ancillary services (i.e.. PT/OT/ST, etc) as needed 5. Communicate with and update the patient/family, physician, and health care team regarding progress on the discharge plan 6. Identify discharge learning needs (meds, wound care, etc). 7. Arrange for needed discharge transportation as appropriate Outcome: Completed Note: Evaluation of progress towards goal: discharge planning completed Problem: Potential for Compromised Skin Integrity Goal: Skin integrity is maintained or improved Description: Patient's goal is: INTERVENTIONS 1. Perform initial skin assessment on admission and as needed 2. Turn patient every 2 hours and PRN 3. Relieve pressure to bony prominences 4. Avoid shearing 5. Keep skin clean and dry 6. Alternate a full bath with partial baths for elderly 7. Apply lotion/moisturizer on skin 8. Monitor patient's hygiene practices 9. Float heels 10. Collaborate with interdisciplinary team and initiate plans and interventions as needed Outcome: Completed Note: Evaluation of progress towards goal: goal met Goal: Patient's nutritional intake is adequate Description: Patient's goal is: INTERVENTIONS 1. Assess and monitor food intake and supplements, patient food preferences, nausea, vomiting, labs, oral cavity (gums, teeth, tongue, mucosa), proper denture fit, and cultural beliefs 2. Monitor for signs of hypoglycemia and hyperglycemia 3. Collaborate with interdisciplinary team and initiate plan and interventions as ordered 4. Monitor patient's weight 5. Assist patient with meals/food selection 6. Assist patient with eating 7. Allow adequate time for meals 8. Provide pleasant environment during mealtime 9. Increase social contact during mealtimes 10. Plan activities to conserve energy 11. Encourage/perform oral hygiene as appropriate 12. Encourage patient to take dietary supplement as ordered 13. Collaborate with clinical hardness inspector 14. Include patient/ patient's bottling equipment sales representative in decisions related to nutrition Outcome: Completed Note: Evaluation of progress towards goal: goal met Problem: Urinary Incontinence Goal: Perineal skin integrity is maintained or improved Description: INTERVENTIONS 1. Assess genitourinary system, perineal skin, labs (urinalysis), and history of incontinence to include past management, aggravating, and alleviating factors 2. Keep skin clean and dry 3. Apply skin protectant 4. Develop skin care regimen 5. Provide privacy when changing patients incontinence device to maintain their dignity 6. Consider placing an indwelling catheter 7. Collaborate with interdisciplinary team and initiate plans and interventions as needed Outcome: Completed Note: Evaluation of progress towards goal: goal met Problem: Moderate - High Risk Fall Score Description: Kenney Fall Score of =/> 25 or indicated by [facility] Re[facility] Assessment Goal: Patient should be free from fall Description: Interventions: 1. [place] to environment 2. Hourly rounds addressing the 4 P's (Pain, Positioning, Possessions, Potty) 3. Clear area of hazards (spills, clutter, electrical cords, unnecessary equipment) 4. Place equipment (bed & TV controls, call light, phone, urinal) within reach 5. Encourage patient to wear glasses and hearing aides as appropriate 6. Maintain bed in lowest position 7. Lock wheels on bed/wheelchair 8. Provide adequate lighting, including night light 9. Assess need for additional bedding, food/fluids, pain med's prior to sleep/routinely 10. Provide gripper slippers or personal non-skid footwear 11. Teach patient and patient bottling equipment sales representative to maintain environment for safety and engage in all aspects of fall prevention program 12. Remind patient to call for help before getting out of bed 13. Initiate bed/chair/exit alarms supportive devices as appropriate, (chair wedge, no-skid floor mat, raised edge mattress, hip protectors) 14. Locate patient bed assignment for optimal visualization 15. Evaluate and identify Safe Patient Handling Equipment needs 16. Provide supervision when out of bed or chair 17. Utilize gait belt as needed to assist with ambulation 18. Place adaptive equipment (cane, walker) within reach 19. Request patient bottling equipment sales representative bring adaptive equipment/mobility aids from home or obtain and provide as needed 20. Consult pharmacy regarding effects of med's affecting mobility, cognition, and alternatives 21. Obtain physician order for PT if risk factors associated with mobility are present 22. Obtain physician order for OT as appropriate 23. Utilize diversional activities 24. Educate patient and patient bottling equipment sales representative how to maintain a safe environment during visitationtimes (notify nurse prior to leaving bedside) 25. Consider appropriateness of medical or non-medical coding auditor 26. Set up voiding schedule as appropriate (every 2 hours) Outcome: Completed Note: Evaluation of progress towards goal: goal met * Discharge Planning Note - Melissa Jones - 05/26/2024 2:11 PM EST DISCHARGE PLANNING NOTE CRF sent to [address]- [place] (P# ; F# ); [place] (P#[phone] ; F# [phone]) use [place] main office and [facility], [facility]- [place], [place] [facility] - (P# ; F# ) * Discharge Planning Note - Sakina Wooten RN - 05/26/2024 1:59 PM EST DISCHARGE PLANNING NOTE Patient is ready for discharge. Tasked RC to send CRF to [address] [facility]. CN contacted [facility] to confirm patient is discharging today, spoke with Jacey. They will reachout to patient to arrange delivery of medication/supplies. [address] is scheduled for a SOC tomorrow between 12-pm. RN updated. - Sakina Wooten RN 05/26/24 2:01 PM * Plan of Care - Delilah Becerra RN - 05/26/2024 2:29 AM EST Problem: Pain Goal: Patient goal is pain score less than 4, able to rest, and participant in treatment plan as appropriate Description: INTERVENTIONS: 1. Encourage patient or legal bottling equipment sales representative to report early pain and ask for pain medicine when needed 2. Assess pain using appropriate pain scale and include the scale used when documenting 3. Administer analgesics based on type and severity of pain and evaluate response within appropriate time frame 4. Implement non-pharmacological measures as appropriate and evaluate response 5. Consider cultural and social influences on pain and pain management 6. Notify LIP if interventions ineffective or patient reports new pain 7. Monitor vital signs including pulse ox, end-tidal CO2 based on pain intervention 8. Reassess pain per policy 9. Teach patient or legal bottling equipment sales representative interventions for comforting Outcome: Progressing Note: Evaluation of progress towards goal: Pt denies pain. Pt has Tylenol 650 mg po every 6 hrs PRNmild pain or Oxycodone 5 mg po every 4 hrs PRN severe pain ordered. Problem: Safety Goal: Patient will be injury free during hospitalization Description: INTERVENTIONS: 1. Assess patient's risk for falls and implement fall prevention plan of care per policy 2. Provide and maintain a safe environment 3. Proper use of double Identifiers 4. Medication administration using the 5 rights 5. Hand hygiene 6. Specimens are labeled at the bedside 7. Instruct patient/ patient bottling equipment sales representative about use of safety devices 8. Include patient/ patient bottling equipment sales representative in decisions related to safety Outcome: Progressing Note: Evaluation of progress towards goal: Pt injury free during stay on [address]. Interventions in place. Problem: Infection Goal: Absence of infection during hospitalization Description: Interventions: 1. Assess and monitor for signs and symptoms of infection 2. Monitor lab/diagnostic results 3. Monitor all insertion sites i.e., indwelling lines, tubes and drains 4. Monitor endotracheal (as able) and nasal secretions for changes in amount and color 5. Administer medications as ordered 6. Instruct and encourage patient and family to use good hand hygiene technique 7. Identify and instruct patient/patient bottling equipment sales representative in use of appropriate isolation precautionsfor identified infection/symptoms 8. Provide and discuss with patient/patient bottling equipment sales representative on educational MDRO sheet 9. Encourage and monitor nutritional status daily and consult hardness inspector if indicated 10. Implement neutropenic guidelines as needed 11. Review exposure to history of communicable disease and recent travel history on admission 12. Encourage annual influenza vaccine 13. Encourage pneumonia vaccine Outcome: Progressing Note: Evaluation of progress towards goal: Pt afebrile. WBCs 14.6. Blood cultures from 05/23 with no growth X 2 days initial blood cultures positive for E.Coli. Pt on Rocephin 2000 mg IVPB every 24 hrs. Started on Valtrex 500 mg po twice per day for cold sores. Problem: Knowledge Deficit Goal: Patient/patient bottling equipment sales representative demonstrates understanding of disease process, treatment plan,medications, and discharge instructions Description: INTERVENTIONS 1. Complete learning assessment and assess knowledge base 2. Provide teaching at level of understanding 3. Provide teaching via preferred learning method(s) Outcome: Progressing Note: Evaluation of progress towards goal: Pt updated on plan of care of pending transfer. Pt awaiting to get home care arrangements fir IV antibiotics. Problem: Discharge Planning Goal: Discharge to post-acute care, other facility, or home with appropriate resources Description: Patient's goal is: INTERVENTIONS 1. Conduct assessment to determine patient/family and health care team treatment goals, and need for post-acute services based on payer coverage, community resources, and patient preferences, and barriers to discharge 2. Coordinate with Social work, Care Navigation, and Utilization Review to arrange appropriate level of services according to patient's needs based on patient preference and payer coverage in collaboration with the physician and health care team 3. Address psychosocial, clinical, and financial barriers to discharge as identified in assessment in conjunction with the patient/family and health care team 4. Consult appropriate ancillary services (i.e.. PT/OT/ST, etc) as needed 5. Communicate with and update the patient/family, physician, and health care team regarding progress on the discharge plan 6. Identify discharge learning needs (meds, wound care, etc). 7. Arrange for needed discharge transportation as appropriate Outcome: Progressing Note: Evaluation of progress towards goal: Pt awaiting for home care service to be set up for IV antibiotics. Problem: Potential for Compromised Skin Integrity Goal: Skin integrity is maintained or improved Description: Patient's goal is: INTERVENTIONS 1. Perform initial skin assessment on admission and as needed 2. Turn patient every 2 hours and PRN 3. Relieve pressure to bony prominences 4. Avoid shearing 5. Keep skin clean and dry 6. Alternate a full bath with partial baths for elderly 7. Apply lotion/moisturizer on skin 8. Monitor patient's hygiene practices 9. Float heels 10. Collaborate with interdisciplinary team and initiate plans and interventions as needed Outcome: Progressing Note: Evaluation of progress towards goal: Skin integrity maintained except for lesions on left lower lip. Pt able to turn self. Goal: Patient's nutritional intake is adequate Description: Patient's goal is: INTERVENTIONS 1. Assess and monitor food intake and supplements, patient food preferences, nausea, vomiting, labs, oral cavity (gums, teeth, tongue, mucosa), proper denture fit, and cultural beliefs 2. Monitor for signs of hypoglycemia and hyperglycemia 3. Collaborate with interdisciplinary team and initiate plan and interventions as ordered 4. Monitor patient's weight 5. Assist patient with meals/food selection 6. Assist patient with eating 7. Allow adequate time for meals 8. Provide pleasant environment during mealtime 9. Increase social contact during mealtimes 10. Plan activities to conserve energy 11. Encourage/perform oral hygiene as appropriate 12. Encourage patient to take dietary supplement as ordered 13. Collaborate with clinical hardness inspector 14. Include patient/ patient's bottling equipment sales representative in decisions related to nutrition Outcome: Progressing Note: Evaluation of progress towards goal: Pt on Regular diet. Problem: Urinary Incontinence Goal: Perineal skin integrity is maintained or improved Description: INTERVENTIONS 1. Assess genitourinary system, perineal skin, labs (urinalysis), and history of incontinence to include past management, aggravating, and alleviating factors 2. Keep skin clean and dry 3. Apply skin protectant 4. Develop skin care regimen 5. Provide privacy when changing patients incontinence device to maintain their dignity 6. Consider placing an indwelling catheter 7. Collaborate with interdisciplinary team and initiate plans and interventions as needed Outcome: Progressing Note: Evaluation of progress towards goal: Perineal skin integrity maintained with CHG wipes for bathing & guevara care. Problem: Moderate - High Risk Fall Score Description: [place] Fall Score of =/> 25 or indicated by [facility] Assessment Goal: Patient should be free from fall Description: Interventions: 1. [place] to environment 2. Hourly rounds addressing the 4 P's (Pain, Positioning, Possessions, Potty) 3. Clear area of hazards (spills, clutter, electrical cords, unnecessary equipment) 4. Place equipment (bed & TV controls, call light, phone, urinal) within reach 5. Encourage patient to wear glasses and hearing aides as appropriate 6. Maintain bed in lowest position 7. Lock wheels on bed/wheelchair 8. Provide adequate lighting, including night light 9. Assess need for additional bedding, food/fluids, pain med's prior to sleep/routinely 10. Provide gripper slippers or personal non-skid footwear 11. Teach patient and patient bottling equipment sales representative to maintain environment for safety and engage in all aspects of fall prevention program 12. Remind patient to call for help before getting out of bed 13. Initiate bed/chair/exit alarms supportive devices as appropriate, (chair wedge, no-skid floor mat, raised edge mattress, hip protectors) 14. Locate patient bed assignment for optimal visualization 15. Evaluate and identify Safe Patient Handling Equipment needs 16. Provide supervision when out of bed or chair 17. Utilize gait belt as needed to assist with ambulation 18. Place adaptive equipment (cane, walker) within reach 19. Request patient bottling equipment sales representative bring adaptive equipment/mobility aids from home or obtain and provide as needed 20. Consult pharmacy regarding effects of med's affecting mobility, cognition, and alternatives 21. Obtain physician order for PT if risk factors associated with mobility are present 22. Obtain physician order for OT as appropriate 23. Utilize diversional activities 24. Educate patient and patient bottling equipment sales representative how to maintain a safe environment during visitationtimes (notify nurse prior to leaving bedside) 25. Consider appropriateness of medical or non-medical coding auditor 26. Set up voiding schedule as appropriate (every 2 hours) Outcome: Progressing Note: Evaluation of progress towards goal: Pt free from fall with hourly rounding continued & maintained. 4 Ps addressed. * Plan of Care - Kimberly Sauceda RN - 05/25/2024 4:22 AM EDT Problem: Pain Goal: Patient goal is pain score less than 4, able to rest, and participant in treatment plan as appropriate Description: INTERVENTIONS: 1. Encourage patient or legal bottling equipment sales representative to report early pain and ask for pain medicine when needed 2. Assess pain using appropriate pain scale and include the scale used when documenting 3. Administer analgesics based on type and severity of pain and evaluate response within appropriate time frame 4. Implement non-pharmacological measures as appropriate and evaluate response 5. Consider cultural and social influences on pain and pain management 6. Notify LIP if interventions ineffective or patient reports new pain 7. Monitor vital signs including pulse ox, end-tidal CO2 based on pain intervention 8. Reassess pain per policy 9. Teach patient or legal bottling equipment sales representative interventions for comforting Outcome: Progressing Note: Evaluation of progress towards goal: Patient denies pain at this time. PRN medications available. Will continue to monitor that patient's pain is managed appropriately. Problem: Safety Goal: Patient will be injury free during hospitalization Description: INTERVENTIONS: 1. Assess patient's risk for falls and implement fall prevention plan of care per policy 2. Provide and maintain a safe environment 3. Proper use of double Identifiers 4. Medication administration using the 5 rights 5. Hand hygiene 6. Specimens are labeled at the bedside 7. Instruct patient/ patient bottling equipment sales representative about use of safety devices 8. Include patient/ patient bottling equipment sales representative in decisions related to safety Outcome: Progressing Note: Evaluation of progress towards goal: Safety precautions put into place and safe environment maintained. Will continue to monitor. Problem: Infection Goal: Absence of infection during hospitalization Description: Interventions: 1. Assess and monitor for signs and symptoms of infection 2. Monitor lab/diagnostic results 3. Monitor all insertion sites i.e., indwelling lines, tubes and drains 4. Monitor endotracheal (as able) and nasal secretions for changes in amount and color 5. Administer medications as ordered 6. Instruct and encourage patient and family to use good hand hygiene technique 7. Identify and instruct patient/patient bottling equipment sales representative in use of appropriate isolation precautionsfor identified infection/symptoms 8. Provide and discuss with patient/patient bottling equipment sales representative on educational MDRO sheet 9. Encourage and monitor nutritional status daily and consult hardness inspector if indicated 10. Implement neutropenic guidelines as needed 11. Review exposure to history of communicable disease and recent travel history on admission 12. Encourage annual influenza vaccine 13. Encourage pneumonia vaccine Outcome: Progressing Note: Evaluation of progress towards goal: Infection prevention measures put into place. Will continue to monitor for signs and symptoms of infection. Problem: Knowledge Deficit Goal: Patient/patient bottling equipment sales representative demonstrates understanding of disease process, treatment plan,medications, and discharge instructions Description: INTERVENTIONS 1. Complete learning assessment and assess knowledge base 2. Provide teaching at level of understanding 3. Provide teaching via preferred learning method(s) Outcome: Progressing Note: Evaluation of progress towards goal: Patient and patient's family at bedside educated on patient's plan of care. Will continue to educate patient and family on any changes made on patient's plan of care. Problem: Discharge Planning Goal: Discharge to post-acute care, other facility, or home with appropriate resources Description: Patient's goal is: INTERVENTIONS 1. Conduct assessment to determine patient/family and health care team treatment goals, and need for post-acute services based on payer coverage, community resources, and patient preferences, and barriers to discharge 2. Coordinate with Social work, Care Navigation, and Utilization Review to arrange appropriate level of services according to patient's needs based on patient preference and payer coverage in collaboration with the physician and health care team 3. Address psychosocial, clinical, and financial barriers to discharge as identified in assessment in conjunction with the patient/family and health care team 4. Consult appropriate ancillary services (i.e.. PT/OT/ST, etc) as needed 5. Communicate with and update the patient/family, physician, and health care team regarding progress on the discharge plan 6. Identify discharge learning needs (meds, wound care, etc). 7. Arrange for needed discharge transportation as appropriate Outcome: Progressing Note: Evaluation of progress towards goal: Discharge planning in process and plans being looked over by charge nurse. * PT/OT/CERAMIC TILE SETTER - Cristino Hugo, PT - 05/24/2024 2:50 PM EDT Physical Therapy Evaluation Discharge Recommendations PT Recommendations: Home Home Recommendations: Intermittent caregiver support for: (for ADLS/IADLS as needed) Therapy Plan Need for skilled Physical Therapy to address deficits in functional mobility due to a status decline resulting from hospital admission 05/21/24 with fever, chills and general weakness. Pt hypotensive and tachycardic CT A+P - L sided stone with hydronephrosis IR for percutaneous drain, L nephrostomy tube Past Medical History: Diagnosis Date Migraines Septic shock (CMS-HCC) 05/21/2024 Past Surgical History: Procedure Laterality Date INGUINAL HERNIA REPAIR x2 KNEE ARTHROPLASTY Bilateral UMBILICAL HERNIA REPAIR 6 Clicks: Basic Mobility Turning from your back to your side while in a flat bed without using bed rails?: A little Moving from lying on your back to sitting on side of flat bed without using bed rails?: A little Moving to and from bed to a chair (including w/c)?: A little Standing up from a chair using your arms (e.g. w/c or bedside chair)?: A little To walk in hospital room?: A little Climbing 3-5 steps with a railing?: A little Scoring 6 Clicks: Basic Mobility Raw Score: 18 CMS G Code Modifier: CK PT Treatment/Interventions: Functional transfer training, Endurance training, Patient/family training, Equipment eval/education, Balance, Gait training, Functional activities PT Frequency: 4-5days/week PT Duration: LOS Patient Response to Treatment: Tolerated evaluation without adverse reaction Assessment Patient Assessment Therapy Problem List: Decreased balance, Decreased endurance, Decreased mobility, Decreased safe judgement during ADL Patient Response to Treatment: Tolerated evaluation without adverse reaction Mood/Affect: Appropriate for circumstances Rehab Prognosis: Good Visit RN Communication: Yes Medical Record Reviewed: Yes PT Type of Visit: Evaluation Precautions Activity: early mobility pass, ok per MINNIE Lucas Equipment: gait belt, RW, percutaneous drain, guevara Telemetry/Gear Tooth Grinding Machine Operator: Yes Oxygen Used: room air Other: Fall risk Pain Assessment Pain Assessment: No/denies pain Home Living Type of Home: House Home Layout: Two level, Performs ADLs on one level, Able to live on main level with bedroom/bathroom, Laundry in basement Stairs to Enter: 1+1 Hand Rails: None Stairs in Home: FF to basement laundry Hand Rails in Home: None Bathroom Shower/Tub: Tub/shower unit Bathroom Toilet: Standard (with support nearby) Bathroom Equipment: Shower chair, Toilet raiser, Grab bars in shower Bathroom Accessibility: Accessible Home Equipment: Rolling walker Other : pt denied needing DME for mobility prior to admission Prior Function Lives With: Spouse (spouse home 13/02) Receives Help From: Family Level of Mobility: Independent with ADLs and functional transfers or gait Homemaking Assistance: Independent Vocational: Retired Other: no falls ADL / IADL Hand Dominance: Right Hearing / Speech / Vision Hearing: Within Functional Limits Speech: Within Functional Limits Current Vision: Wears glasses all the time Cognition Overall Cognitive Status: Within Functional Limits Orientation Level: Oriented X4 Sensation Overall Sensation Status: Within Functional Limits Bed Mobility Other: pt seated in chair upon therapist's arrival and departure. Lance HARTMAN aware of pt's status Transfers Sit to Stand: Standby assist Stand to Sit: Standby assist Other: Verbal cues for safe hand placement with use of RW Gait Base of Support: Wide (due to body habitus) Pattern: Decreased clemente, Forward trunk Gait Assistance: Standby assist Assistive Device: Rolling walker Gait Distance: 160 ft Other: pt ambulates with slower clemente and was mildly SOB with exertion Balance Sitting Balance: Static: Good Sitting Balance: Dynamic: Good Standing Balance: Static: Fair ((+)) Standing Balance: Dynamic: Fair Other: BUE support on Walker for standing/mobility tasks. Able to sit unsupported edge of chair with no major concerns. RUE Assessment: (see OT eval) LUE Assessment: (see OT eval) RLE Assessment: Within Functional Limits LLE Assessment: Within Functional Limits Activity Tolerance Endurance: Tolerates <30 minutes activity WITHOUT vital sign changes Other: mild CHATMAN which seems to be baseline for pt Plan Physical Therapy Care Plan Physical Therapy Care Plan (Active) Template: PT - Physical Therapy Problem: Activity Tolerance Dates: Start: 05/24/24 Disciplines: PT Goal: Tolerate > 30 minutes of activity WITH rest breaks Dates: Start: 05/24/24 Expected End: 06/22/24 Description: To improve overall strength and endurance for functional mobility. : Disciplines: PT Problem: Gait Dates: Start: 05/24/24 Disciplines: PT Goal: Patient will perform gait with Stand By Assist Dates: Start: 05/24/24 Expected End: 06/22/24 Description: With__RW__,__200__feet for safe household ambulation Goal Description: Disciplines: PT Problem: Standing Balance Dates: Start: 05/24/24 Disciplines: PT Goal: Improve balance to good Dates: Start: 05/24/24 Expected End: 06/22/24 Description: With use of AD to reduce fall risk during ambulation Disciplines: PT Problem: Transfers Dates: Start: 05/24/24 Disciplines: PT Goal: Patient will perform transfers with Modified [place] Dates: Start: 05/24/24 Expected End: 06/22/24 Description: Goal Description: Disciplines: PT Physical Therapy Care Plan (Resolved) There are no resolved problems. Principal Problem: Septic shock (CMS-HCC) * PT/OT/CERAMIC TILE SETTER - LESVIA Art/Alicia - 05/24/2024 2:35 PM EDT Occupational Therapy Evaluation Discharge Recommendations OT Recommendations : Home Home Recommendations: Intermittent caregiver support for: (IADLS) 6 Clicks: Daily Activity Putting on and taking off regular lower body clothing?: A little Bathing (including washing, rinsing, drying)?: A little Toileting, which includes using toilet, bedpan or urinal?: A little Putting on and taking off regular upper body clothing?: A little Taking care of personal grooming such as brushing teeth?: A little Eating meals?: None Scoring Daily Activity Raw Score: 19 CMS G Code Modifier: CK Therapy Plan Need for skilled Occupational Therapy to address deficits in ADL independence and functional mobility due to a status decline resulting from admit as transfer from [place] on 05/21/24 with fever, chills and general weakness. Pt hypotensive and tachycardic CT A+P - L sided stone with hydronephrosis IR for percutaneous drain, L nephrostomy tube Past Medical History: Diagnosis Date Migraines Septic shock ([facility]-HCC) 05/21/2024 Past Surgical History: Procedure Laterality Date INGUINAL HERNIA REPAIR x2 KNEE ARTHROPLASTY Bilateral UMBILICAL HERNIA REPAIR OT Treatment/Interventions: ADL retraining, Functional transfer training, Endurance training, Equipment eval/education, Patient/family training, Balance, Bed mobility, Compensatory technique education, Functional activities OT Frequency: 4-5days/week OT Duration: LOS Assessment Patient Assessment Therapy Problem List: Decreased ADL status, Decreased balance, Decreased endurance, Abnormal posture, Decreased mobility, Decreased safe judgement during ADL, Decreased self-care trans, Decreased high-level ADLs Patient Response to Treatment: Tolerated evaluation without adverse reaction Mood/Affect: Appropriate for circumstances Rehab Prognosis: Good Visit RN Communication: Yes Medical Record Reviewed: Yes OT Type of Visit: Evaluation Precautions Activity: early mobility pass, ok per MINNIE Lucas Equipment: gait belt, RW, percutaneous drain, guevara Telemetry/Gear Tooth Grinding Machine Operator: Yes Oxygen Used: room air Other: Fall risk Pain Assessment Pain Assessment: No/denies pain Home Living Type of Home: House Home Layout: Two level, Performs ADLs on one level, Able to live on main level with bedroom/bathroom, Laundry in basement Stairs to Enter: 1+1 Hand Rails: None Stairs in Home: FF to basement laundry Hand Rails in Home: None Bathroom Shower/Tub: Tub/shower unit Bathroom Toilet: Standard (support nearby) Bathroom Equipment: Shower chair, Toilet raiser, Grab bars in shower (does not use shower chair or riser) Bathroom Accessibility: Accessible Home Equipment: Rolling walker (has walker available to her) Other : Pt not using AD lighter captain. Prior Function Lives With: Spouse (retired and able to assist.) Receives Help From: Family Level of Mobility: Independent with ADLs and functional transfers or gait Homemaking Assistance: Independent Vocational: Retired Other: no falls. ADL / IADL Hand Dominance: Right Eating Assistance: Independent, Setup Grooming Assistance: Contact guard assist (standing) Bathing/Showering Assistance: Min assist, Setup Toilet/Commode Assistance: Total assist (guevara) UE Dressing Assistance: Min assist (to don gown) UE Dressing Deficit: Pull around back LE Dressing Assistance: Min assist Other: Limited in ADL participation due to impaired strength, safety, balance and activity tolerance. Home Management - IADL Other: Limited in ADL participation due to impaired strength, safety, balance and activity tolerance. Hearing / Speech / Vision Hearing: Within Functional Limits Speech: Within Functional Limits Current Vision: Wears glasses all the time Cognition Overall Cognitive Status: Within Functional Limits Orientation Level: Oriented X4 Sensation Overall Sensation Status: Within Functional Limits Bed Mobility Other: NT pt in chair upon arrival and departure with call light in reach. Transfers Sit to Stand: Standby assist Stand to Sit: Standby assist Other: VC for safe hand placement during transfers, use of RW in standing. Gait Pattern: Decreased clemente, Forward trunk Gait Assistance: Standby assist Assistive Device: Rolling walker Gait Distance: 160 ft Other: Pt completed mobility in hallway, no major LOB or path deviation noted. Some mild SOB. Balance Balance Evaluation: Exceptions to Functional Limits Sitting Balance: Static: Good Sitting Balance: Dynamic: Good Standing Balance: Static: Fair (+) Standing Balance: Dynamic: Fair Other: BUE support on Walker for standing/mobility tasks. Able to sit unsupported edge of chair with no major concerns. RUE Assessment: Within Functional Limits LUE Assessment: Within Functional Limits Activity Tolerance Endurance: Tolerates <30 minutes activity WITHOUT vital sign changes Other: Some SOB noted. Pt reports out of bed activity feels good, denies fatigue. Plan Occupational Therapy Care Plan Occupational Therapy Care Plan (Active) Template: OT - Occupational Therapy Problem: Activity Tolerance Dates: Start: 05/24/24 Disciplines: OT Goal: Tolerate 30 minutes of activity WITH rest breaks Dates: Start: 05/24/24 Expected End: 06/14/24 Description: Goal Description: Disciplines: OT Problem: Bed Mobility Dates: Start: 05/24/24 Disciplines: OT Goal: Patient will perform bed mobility Independently Dates: Start: 05/24/24 Expected End: 06/14/24 Description: Goal Description: Disciplines: OT Problem: Functional Mobility Dates: Start: 05/24/24 Disciplines: OT Goal: Patient will perform functional mobility Independently Dates: Start: 05/24/24 Expected End: 06/14/24 Description: Goal Description: Disciplines: OT Problem: Home Management Dates: Start: 05/24/24 Disciplines: OT Goal: Patient will perform home management with Modified [place] Dates: Start: 05/24/24 Expected End: 06/14/24 Description: Goal Description: Disciplines: OT Problem: Other (Customize) Dates: Start: 05/24/24 Disciplines: OT Goal: Improve Dates: Start: 05/24/24 Expected End: 06/14/24 Description: Pt will demo all ADLs mod I/IND using AE/DME/compensatory strategies PRN and good safety. Disciplines: OT Problem: Standing Balance Dates: Start: 05/24/24 Disciplines: OT Goal: Improve balance to good Dates: Start: 05/24/24 Expected End: 06/14/24 Description: Pt will demo good standing balance with use of UE support PRN for 10+ minutes for increased participation in ADLs. Disciplines: OT Problem: Toilet Transfers Dates: Start: 05/24/24 Disciplines: OT Goal: Patient will perform toilet transfers Independently Dates: Start: 05/24/24 Expected End: 06/14/24 Description: Goal Description: Disciplines: OT Problem: Transfers Dates: Start: 05/24/24 Disciplines: OT Goal: Patient will perform transfers Independently Dates: Start: 05/24/24 Expected End: 06/14/24 Description: Goal Description: Disciplines: OT Occupational Therapy Care Plan (Resolved) There are no resolved problems. Principal Problem: Septic shock ([facility]-HCC) * Discharge Planning Note - KALINA Sanon - 05/24/2024 12:20 PM EDT DISCHARGE PLANNING NOTE Case discussed in daily transition rounds and chart reviewed by CN. Barriers to discharge include IV ATB, PT/OT Discharge Plan remains: home with home infusion. Patient will require daily IV Rocephin through 06/04. Social work met with patient to to further discuss transition plan. Patient feels that she can return home at discharge and feels comfortable with home infusion- she and are teachable. Social work discussed home care list and patient did not have a preference. Social work task RC to send referral to [facility] and social work faxed prescription- wait insurance coverage and [facility]- wait acceptance. Wait PT/OT evaluations and recommendations. CN will continue to follow and is available should any further needs arise. - KALINA SANON 05/24/24 12:[address] [facility] denied referral. Social work sent referral to [facility] and [facility]. [facility] is not sure if they are available to start services until Monday as they will need insurance approval. Waiting [facility] to inform of start of care on Monday. Social work spoke with [facility] to provide update and they will deliver infusion supplies at discharge. Social work met with patient and to provide update and they are agreeable to transition plan. will transport at discharge. - KALINA SANON 05/24/24 4:02 PM [facility] can start services at 1200 on Monday. - KALINA SANON 05/24/24 4:06 PM * Discharge Planning Note - Giuliana Rodriguez - 05/24/2024 11:52 AM EDT DISCHARGE PLANNING NOTE Referral sent to [facility] [place], [place] [facility] - (P# ; F# ); [facility] [place] [place] [facility] - (P# ; F# ) * Plan of Care - Jovany Wynne RN - 05/23/2024 8:52 AM EDT Problem: Pain Goal: Patient goal is pain score less than 4, able to rest, and participant in treatment plan as appropriate Description: INTERVENTIONS: 1. Encourage patient or legal bottling equipment sales representative to report early pain and ask for pain medicine when needed 2. Assess pain using appropriate pain scale and include the scale used when documenting 3. Administer analgesics based on type and severity of pain and evaluate response within appropriate time frame 4. Implement non-pharmacological measures as appropriate and evaluate response 5. Consider cultural and social influences on pain and pain management 6. Notify LIP if interventions ineffective or patient reports new pain 7. Monitor vital signs including pulse ox, end-tidal CO2 based on pain intervention 8. Reassess pain per policy 9. Teach patient or legal bottling equipment sales representative interventions for comforting Outcome: Progressing Note: Evaluation of progress towards goal: Patient is being monitored for pain routinely throughoutshift using whichever pain scale is clinically indicated. If patient cannot verbalize pain, RN willuse nonverbal ICU pain score & treat pain when indicated. If pain is not managed with medications ordered, RN will quickly communicate with physician to get pain treated. Problem: Safety Goal: Patient will be injury free during hospitalization Description: INTERVENTIONS: 1. Assess patient's risk for falls and implement fall prevention plan of care per policy 2. Provide and maintain a safe environment 3. Proper use of double Identifiers 4. Medication administration using the 5 rights 5. Hand hygiene 6. Specimens are labeled at the bedside 7. Instruct patient/ patient bottling equipment sales representative about use of safety devices 8. Include patient/ patient bottling equipment sales representative in decisions related to safety Outcome: Progressing Note: Evaluation of progress towards goal: Pt remains free of injury. Patient offered hourly roundsspecifically addressing the 4 P's. Patient assessed for appropriate fall precautions given medical status (i.e., non slip socks, bed locked and in lowest position, fall risk band on.) All patients are rounded on q1h and PRN. Problem: Infection Goal: Absence of infection during hospitalization Description: Interventions: 1. Assess and monitor for signs and symptoms of infection 2. Monitor lab/diagnostic results 3. Monitor all insertion sites i.e., indwelling lines, tubes and drains 4. Monitor endotracheal (as able) and nasal secretions for changes in amount and color 5. Administer medications as ordered 6. Instruct and encourage patient and family to use good hand hygiene technique 7. Identify and instruct patient/patient bottling equipment sales representative in use of appropriate isolation precautionsfor identified infection/symptoms 8. Provide and discuss with patient/patient bottling equipment sales representative on educational MDRO sheet 9. Encourage and monitor nutritional status daily and consult hardness inspector if indicated 10. Implement neutropenic guidelines as needed 11. Review exposure to history of communicable disease and recent travel history on admission 12. Encourage annual influenza vaccine 13. Encourage pneumonia vaccine Outcome: Progressing Note: Evaluation of progress towards goal: RN to monitor daily labs qshift. RN to closely monitor for s/sx of infection and sepsis routinely throughout shift. RN to immediately notify provider of concerns of infection/ sepsis. Problem: Knowledge Deficit Goal: Patient/patient bottling equipment sales representative demonstrates understanding of disease process, treatment plan,medications, and discharge instructions Description: INTERVENTIONS 1. Complete learning assessment and assess knowledge base 2. Provide teaching at level of understanding 3. Provide teaching via preferred learning method(s) Outcome: Progressing Note: Evaluation of progress towards goal: RN to assess patient's preferred learning methods. RN toprovide teaching at patient's and patient's family's level of understanding when applicable. If patient and family are unable to participate in education, RN will continue to monitor for education readiness Qshift and PRN and preform education when appropriate. Problem: Discharge Planning Goal: Discharge to post-acute care, other facility, or home with appropriate resources Description: Patient's goal is: INTERVENTIONS 1. Conduct assessment to determine patient/family and health care team treatment goals, and need for post-acute services based on payer coverage, community resources, and patient preferences, and barriers to discharge 2. Coordinate with Social work, Care Navigation, and Utilization Review to arrange appropriate level of services according to patient's needs based on patient preference and payer coverage in collaboration with the physician and health care team 3. Address psychosocial, clinical, and financial barriers to discharge as identified in assessment in conjunction with the patient/family and health care team 4. Consult appropriate ancillary services (i.e.. PT/OT/ST, etc) as needed 5. Communicate with and update the patient/family, physician, and health care team regarding progress on the discharge plan 6. Identify discharge learning needs (meds, wound care, etc). 7. Arrange for needed discharge transportation as appropriate Outcome: Progressing Note: Evaluation of progress towards goal: Discharge planning to proceed when appropriate. Problem: Potential for Compromised Skin Integrity Goal: Skin integrity is maintained or improved Description: Patient's goal is: INTERVENTIONS 1. Perform initial skin assessment on admission and as needed 2. Turn patient every 2 hours and PRN 3. Relieve pressure to bony prominences 4. Avoid shearing 5. Keep skin clean and dry 6. Alternate a full bath with partial baths for elderly 7. Apply lotion/moisturizer on skin 8. Monitor patient's hygiene practices 9. Float heels 10. Collaborate with interdisciplinary team and initiate plans and interventions as needed Outcome: Progressing Note: Evaluation of progress towards goal: RN to perform skin assessment with each assessment. Patient turned every 2 hours and PRN when clinically indicated. Problem: Moderate - High Risk Fall Score Description: Kenney Fall Score of =/> 25 or indicated by [facility] Assessment Goal: Patient should be free from fall Description: Interventions: 1. [place] to environment 2. Hourly rounds addressing the 4 P's (Pain, Positioning, Possessions, Potty) 3. Clear area of hazards (spills, clutter, electrical cords, unnecessary equipment) 4. Place equipment (bed & TV controls, call light, phone, urinal) within reach 5. Encourage patient to wear glasses and hearing aides as appropriate 6. Maintain bed in lowest position 7. Lock wheels on bed/wheelchair 8. Provide adequate lighting, including night light 9. Assess need for additional bedding, food/fluids, pain med's prior to sleep/routinely 10. Provide gripper slippers or personal non-skid footwear 11. Teach patient and patient bottling equipment sales representative to maintain environment for safety and engage in all aspects of fall prevention program 12. Remind patient to call for help before getting out of bed 13. Initiate bed/chair/exit alarms supportive devices as appropriate, (chair wedge, no-skid floor mat, raised edge mattress, hip protectors) 14. Locate patient bed assignment for optimal visualization 15. Evaluate and identify Safe Patient Handling Equipment needs 16. Provide supervision when out of bed or chair 17. Utilize gait belt as needed to assist with ambulation 18. Place adaptive equipment (cane, walker) within reach 19. Request patient bottling equipment sales representative bring adaptive equipment/mobility aids from home or obtain and provide as needed 20. Consult pharmacy regarding effects of med's affecting mobility, cognition, and alternatives 21. Obtain physician order for PT if risk factors associated with mobility are present 22. Obtain physician order for OT as appropriate 23. Utilize diversional activities 24. Educate patient and patient bottling equipment sales representative how to maintain a safe environment during visitationtimes (notify nurse prior to leaving bedside) 25. Consider appropriateness of medical or non-medical coding auditor 26. Set up voiding schedule as appropriate (every 2 hours) Outcome: Progressing Note: Evaluation of progress towards goal: Pt assessed for risk of fall throughout shift. Patient offered hourly rounds specifically addressing the 4 P's. Patient assessed for appropriate fall precautions given medical status (i.e., non slip socks, bed locked and in lowest position, fall risk band on.) All patients are rounded on q1h and PRN. * Plan of Care - Bertrand Cleary - 05/22/2024 7:05 PM EDT Problem: Pain Goal: Patient goal is pain score less than 4, able to rest, and participant in treatment plan as appropriate Description: INTERVENTIONS: 1. Encourage patient or legal bottling equipment sales representative to report early pain and ask for pain medicine when needed 2. Assess pain using appropriate pain scale and include the scale used when documenting 3. Administer analgesics based on type and severity of pain and evaluate response within appropriate time frame 4. Implement non-pharmacological measures as appropriate and evaluate response 5. Consider cultural and social influences on pain and pain management 6. Notify LIP if interventions ineffective or patient reports new pain 7. Monitor vital signs including pulse ox, end-tidal CO2 based on pain intervention 8. Reassess pain per policy 9. Teach patient or legal bottling equipment sales representative interventions for comforting Outcome: Progressing Note: Evaluation of progress towards goal: RN monitoring patients pain Q4hrs. Problem: Safety Goal: Patient will be injury free during hospitalization Description: INTERVENTIONS: 1. Assess patient's risk for falls and implement fall prevention plan of care per policy 2. Provide and maintain a safe environment 3. Proper use of double Identifiers 4. Medication administration using the 5 rights 5. Hand hygiene 6. Specimens are labeled at the bedside 7. Instruct patient/ patient bottling equipment sales representative about use of safety devices 8. Include patient/ patient bottling equipment sales representative in decisions related to safety Outcome: Progressing Note: Evaluation of progress towards goal: Bed locked, call light within reach, family at bedside. Problem: Urinary Incontinence Goal: Perineal skin integrity is maintained or improved Description: INTERVENTIONS 1. Assess genitourinary system, perineal skin, labs (urinalysis), and history of incontinence to include past management, aggravating, and alleviating factors 2. Keep skin clean and dry 3. Apply skin protectant 4. Develop skin care regimen 5. Provide privacy when changing patients incontinence device to maintain their dignity 6. Consider placing an indwelling catheter 7. Collaborate with interdisciplinary team and initiate plans and interventions as needed Outcome: Progressing Note: Evaluation of progress towards goal: RN performing pericare. * Plan of Care - Senia Godfrey RN - 05/22/2024 4:34 PM EDT Problem: Pain Goal: Patient goal is pain score less than 4, able to rest, and participant in treatment plan as appropriate Description: INTERVENTIONS: 1. Encourage patient or legal bottling equipment sales representative to report early pain and ask for pain medicine when needed 2. Assess pain using appropriate pain scale and include the scale used when documenting 3. Administer analgesics based on type and severity of pain and evaluate response within appropriate time frame 4. Implement non-pharmacological measures as appropriate and evaluate response 5. Consider cultural and social influences on pain and pain management 6. Notify LIP if interventions ineffective or patient reports new pain 7. Monitor vital signs including pulse ox, end-tidal CO2 based on pain intervention 8. Reassess pain per policy 9. Teach patient or legal bottling equipment sales representative interventions for comforting 05/22/2024 [id number] by MINNIE Conn Outcome: Progressing Note: Evaluation of progress towards goal: Patient is being monitored for pain routinely throughoutshift using whichever pain scale is clinical indicated. If patient cannot verbalize pain, RN will use nonverbal ICU pain score & treat pain when indicated. If pain is not managed with medicationsordered, RN will quickly communicate with physician to get pain treated. 05/22/2024 1407 by MINNIE Conn Outcome: Progressing Note: Evaluation of progress towards goal: Problem: Safety Goal: Patient will be injury free during hospitalization Description: INTERVENTIONS: 1. Assess patient's risk for falls and implement fall prevention plan of care per policy 2. Provide and maintain a safe environment 3. Proper use of double Identifiers 4. Medication administration using the 5 rights 5. Hand hygiene 6. Specimens are labeled at the bedside 7. Instruct patient/ patient bottling equipment sales representative about use of safety devices 8. Include patient/ patient bottling equipment sales representative in decisions related to safety Outcome: Progressing Note: Evaluation of progress towards goal: Pt assessed for risk of fall throughout shift. Patient offered hourly rounds specifically addressing the 4 P's. Patient assessed for appropriate fall precautions given medical status (i.e., non slip socks, bed locked and in lowest position, fall risk band on.) All patients are rounded on q1h and PRN. Problem: Infection Goal: Absence of infection during hospitalization Description: Interventions: 1. Assess and monitor for signs and symptoms of infection 2. Monitor lab/diagnostic results 3. Monitor all insertion sites i.e., indwelling lines, tubes and drains 4. Monitor endotracheal (as able) and nasal secretions for changes in amount and color 5. Administer medications as ordered 6. Instruct and encourage patient and family to use good hand hygiene technique 7. Identify and instruct patient/patient bottling equipment sales representative in use of appropriate isolation precautionsfor identified infection/symptoms 8. Provide and discuss with patient/patient bottling equipment sales representative on educational MDRO sheet 9. Encourage and monitor nutritional status daily and consult hardness inspector if indicated 10. Implement neutropenic guidelines as needed 11. Review exposure to history of communicable disease and recent travel history on admission 12. Encourage annual influenza vaccine 13. Encourage pneumonia vaccine Outcome: Progressing Note: Evaluation of progress towards goal: RN to monitor daily labs qshift. RN to closely monitor for s/sx of infection and sepsis routinely throughout shift. RN to immediately notify provider of concerns of infection/ sepsis. Problem: Potential for Compromised Skin Integrity Goal: Skin integrity is maintained or improved Description: Patient's goal is: INTERVENTIONS 1. Perform initial skin assessment on admission and as needed 2. Turn patient every 2 hours and PRN 3. Relieve pressure to bony prominences 4. Avoid shearing 5. Keep skin clean and dry 6. Alternate a full bath with partial baths for elderly 7. Apply lotion/moisturizer on skin 8. Monitor patient's hygiene practices 9. Float heels 10. Collaborate with interdisciplinary team and initiate plans and interventions as needed Outcome: Progressing Note: Evaluation of progress towards goal: RN to perform skin assessment with each assessment. Patient turned every 2 hours and PRN when clinically indicated. If bony prominences on patient exist, RNto cover each one with a foam adhesive. RN to assess skin with each incontinence to ensure patient skin remains dry and free from breakdown. Heels floated if clinically indicated. Problem: Moderate - High Risk Fall Score Description: [place] Fall Score of =/> 25 or indicated by [facility] Assessment Goal: Patient should be free from fall Description: Interventions: 1. [place] to environment 2. Hourly rounds addressing the 4 P's (Pain, Positioning, Possessions, Potty) 3. Clear area of hazards (spills, clutter, electrical cords, unnecessary equipment) 4. Place equipment (bed & TV controls, call light, phone, urinal) within reach 5. Encourage patient to wear glasses and hearing aides as appropriate 6. Maintain bed in lowest position 7. Lock wheels on bed/wheelchair 8. Provide adequate lighting, including night light 9. Assess need for additional bedding, food/fluids, pain med's prior to sleep/routinely 10. Provide gripper slippers or personal non-skid footwear 11. Teach patient and patient bottling equipment sales representative to maintain environment for safety and engage in all aspects of fall prevention program 12. Remind patient to call for help before getting out of bed 13. Initiate bed/chair/exit alarms supportive devices as appropriate, (chair wedge, no-skid floor mat, raised edge mattress, hip protectors) 14. Locate patient bed assignment for optimal visualization 15. Evaluate and identify Safe Patient Handling Equipment needs 16. Provide supervision when out of bed or chair 17. Utilize gait belt as needed to assist with ambulation 18. Place adaptive equipment (cane, walker) within reach 19. Request patient bottling equipment sales representative bring adaptive equipment/mobility aids from home or obtain and provide as needed 20. Consult pharmacy regarding effects of med's affecting mobility, cognition, and alternatives 21. Obtain physician order for PT if risk factors associated with mobility are present 22. Obtain physician order for OT as appropriate 23. Utilize diversional activities 24. Educate patient and patient bottling equipment sales representative how to maintain a safe environment during visitationtimes (notify nurse prior to leaving bedside) 25. Consider appropriateness of medical or non-medical coding auditor 26. Set up voiding schedule as appropriate (every 2 hours) Note: Evaluation of progress towards goal: Pt assessed for risk of fall throughout shift. Patient offered hourly rounds specifically addressing the 4 P's. Patient assessed for appropriate fall precautions given medical status (i.e., non slip socks, bed locked and in lowest position, fall risk band on.) All patients are rounded on q1h and PRN. * Discharge Planning Note - KALINA Sanon - 05/22/2024 2:06 PM EDT DISCHARGE PLANNING NOTE Water Quality Specialist met with patient, introduced self, and explained role. Patient is alert and oriented, sitting in lazy boy chair, cooperative. Patient educated on safe discharge plan. Pt admitted 05/21/2024 with Septic shock ([facility] [place]) [A41.9, R65.21] Elevated troponin [R79.89] per chart review. Consults: Urology Discharge Barriers per Daily Transition Rounds and chart review: clears, IV ATB, IV Pepcid, new neph tube, guevara Past Medical History: Diagnosis Date Migraines Septic shock ([facility] [place]) 05/21/2024 Prior to admission patient was living with spouse/significant other in a 2 story home with a basement (laundry) and 2 steps into the home- does not use 2nd floor and self care. Medical equipment patient used prior to admission includes: None but has walking sticks and wheeled walker for home use ifneeded. Patient stating that she completes the household duties and prepares meals. Patient continues to drive. Patient stating that is in good health- he does have COPD- does not wear O2. Patient stating that she has not utilized home care or stayed at SNF/inpatient rehab in the past. Patient denies need for transportation/ food/ prescription medication assistance resources. Social work briefly discussed potential transition plan and options with patient- she is open to recommendations. Social work will continue to follow patient progress to determine final transition needs. PCP: OLMAN SHOEMAKER MD Pharmacy:[facility] PCP and pharmacy confirmed with patient. OLMAN SHOEMAKER MD added to Follow Up Providers for Summary of Care communication. Current discharge plan is: TBD Services Requested: Services Requested Initial DC Assessment Completed: Yes Goals: Goals None Will continue to follow as plan of care develops. CN discussed benefits and importance of medication compliance and follow ups. Please feel free to reach out for any discharge planning questions. - KALINA SANON 05/22/24 2:07 PM * Query Response - Ryan Benitez MD - 05/22/2024 12:02 PM EDT Query Response Note CDI QUERY TEXT: Clinical Significance [id number] Disclaimer: By submitting this query, we are merely seeking further clarification of documentation to accurately reflect all conditions that you are monitoring, evaluating, treating or that extend the hospitalization or utilize additional resources of care. Please utilize your independent clinical judgment when addressing the question(s) below. Dr. Benitez, Patient has the below platelet levels. Please specify if there is an additional diagnosis appropriate for this patient. History and risk factors: 68/F, admitted with sepsis due to hydroureteronephrosis. Treatment: Platelet monitoring Please specify if there is an additional diagnosis appropriate for this patient: [ ] Thrombocytopenia [ ] Other, diagnosis, please specify The patient's Clinical Indicators include: Platelets: 05/21: 63 05/22: 60 Thank you, Angella PIERCE, RN Clinical Fire Captain Clinical Documentation Integrity Email: [email or web address] Hours of availability 7:00am to 3:30pm, Monday to Monday CDI RESPONSE TEXT: Thrombocytopenia due to sepsis Query created by: Angella Gilbert on 05/22/2024 6:01 AM Electronically signed by: Ryan Benitez MD 05/22/2024 12:00 PM * Plan of Care - Maria Morton MD - 05/22/2024 9:34 AM EDT PPH Transfer Accept Note I received a request from the ICU team to transfer primary service to [facility]. I have received a verbalhand off from the ICU team. [facility] will assume care as primary team, once patient is out of the ICU. ASSESSMENT 1. Septic shock due to urosepsis and E coli bacteremia has improved. Currently off pressors 2. Obstructive uropathy status post percutaneous drainage 3. E coli bacteremia 4. Acute kidney injury due to above has improved 5. Acute respiratory failure due to sepsis has improved 6. Thrombocytopenia in the setting of severe sepsis 7. Lactic acidosis has resolved PLAN Clinically improved Discontinue IV stress dose of steroids Discontinue IV fluids May require diuresis Out of bed to chair Wean oxygen down as tolerated Monitor urine output Switch antibiotic to ceftriaxone Can transfer later to floor if continued to be stable * Query Response - Ryan Benitez MD - 05/22/2024 8:37 AM EDT Query Response Note CDI QUERY TEXT: Respiratory Failure Acuity and Type [id number] Disclaimer: By submitting this query, we are merely seeking further clarification of documentation to accurately reflect all conditions that you are monitoring, evaluating, treating or that extend the hospitalization or utilize additional resources of care. Please utilize your independent clinical judgment when addressing the question(s) below. Dr. Benitez, Respiratory insufficiency is documented in the H/p on 05/21. Please specify if there is an additional diagnosis appropriate for this patient. History and risk factors: 68/F, admitted with sepsis due to hydroureteronephrosis. Treatment: SpO2 monitoring 4 liters nasal cannula Please specify if there is an additional diagnosis appropriate for this patient: [ ] Acute hypoxic respiratory failure due to septic shock due to left-sided hydronephrosis [ ] Other, diagnosis, please specify The patient's Clinical Indicators include: SpO2: 05/21 15:57: On room air 05/21 16:10: 4L nasal cannula-current Respiratory rate: 05/21: 29, 32, 38, 34, 35, 37, 39, 44, 40 CXR 05/21: ?Poor inspiration?. H/P 05/21: ?Respiratory insufficiency? Slightly tachypneic?. Thank you, Angella PIERCE, RN Clinical Fire Captain Clinical Documentation Integrity Email: [email or web address] Hours of availability 7:00am to 3:30pm, Monday to Monday CDI RESPONSE TEXT: Acute respiratory failure due to sepsis Query created by: Angella Gilbert on 05/22/2024 6:08 AM Electronically signed by: Ryan Benitez MD 05/22/2024 8:35 AM * Plan of Care - Bertrand Cleary - 05/21/2024 9:59 PM EDT Problem: Pain Goal: Patient goal is pain score less than 4, able to rest, and participant in treatment plan as appropriate Description: INTERVENTIONS: 1. Encourage patient or legal bottling equipment sales representative to report early pain and ask for pain medicine when needed 2. Assess pain using appropriate pain scale and include the scale used when documenting 3. Administer analgesics based on type and severity of pain and evaluate response within appropriate time frame 4. Implement non-pharmacological measures as appropriate and evaluate response 5. Consider cultural and social influences on pain and pain management 6. Notify LIP if interventions ineffective or patient reports new pain 7. Monitor vital signs including pulse ox, end-tidal CO2 based on pain intervention 8. Reassess pain per policy 9. Teach patient or legal bottling equipment sales representative interventions for comforting Outcome: Progressing Note: Evaluation of progress towards goal: RN performing pain assessments and intervening when needed / indicated. Problem: Infection Goal: Absence of infection during hospitalization Description: Interventions: 1. Assess and monitor for signs and symptoms of infection 2. Monitor lab/diagnostic results 3. Monitor all insertion sites i.e., indwelling lines, tubes and drains 4. Monitor endotracheal (as able) and nasal secretions for changes in amount and color 5. Administer medications as ordered 6. Instruct and encourage patient and family to use good hand hygiene technique 7. Identify and instruct patient/patient bottling equipment sales representative in use of appropriate isolation precautionsfor identified infection/symptoms 8. Provide and discuss with patient/patient bottling equipment sales representative on educational MDRO sheet 9. Encourage and monitor nutritional status daily and consult hardness inspector if indicated 10. Implement neutropenic guidelines as needed 11. Review exposure to history of communicable disease and recent travel history on admission 12. Encourage annual influenza vaccine 13. Encourage pneumonia vaccine Outcome: Progressing Note: Evaluation of progress towards goal: Pt on ATBs. RN monitoring vital signs. * Sedation Documentation - Serafin Ott RN - 05/21/2024 3:58 PM EDT Basic respiratory resuscitation equipment including Ambu bags, airway devices, suction, oxygen, blood pressure cuff appropriate to size of patient, lunchroom monitor, pulse oximetry, ETCO2, and reversal agents are available. An emergency resuscitation cart, advanced resuscitation medications and defibrillator are availablein the immediate area. [facility] History of Present illness Narrative* Vaishali Alberts APRN-[facility] - 05/26/2024 3:40 PM EST Images from the original note were not included. [facility] - Daily Progress Note Sharri Murillo Admission date/time 05/21/2024 12:52 PM Today's Date and Time: 05/26/2024, 3:40 PM Impression : Sepsis E coli bacteremia Left hydronephrosis/obstructive stone Acute kidney injury Leukocytosis 39.0 upon admission HSV sores mouth and lips Morbid obesity of the disease BMI 49.2 Non STEMI Recommendations: Reportedly CT of the abdomen from [facility] with left-sided stone with significant hydronephrosis (awaiting report) Status post left percutaneous nephrostomy tube placement Blood cultures from [facility] May 19, 2024, reportedly not yet finalized, preliminary with E coli and Enterobacterale Urine culture from [facility] on May 21, 2024 finalized with no growth (Above cultures scanned into media) Final blood culture May 21, 2024 with E coli-infante susceptible Repeat blood cultures May 23, 2024 preliminarily with no growth at 3 days Urine culture finalized negative Continue Valtrex Tentative plan to continue ceftriaxone through Jun 04, 2024 as long as repeat cultures remain negative Midline in place Orders for antibiotics and lab work on discharge med rec Follow WBC, platelets, creatinine, LFTs WBC: 14.6 Creatinine: 0.79 Monitor temperatures: Afebrile Discharge planning as per primary care Supportive care FOLLOW UP/chief complaints E coli bacteremia Interval History: Patient is sitting up in chair. Denies any unusual pain. Breathing is stable. No vomiting or diarrhea. States still having some mouth pain from cold sores. On antibiotic and antiviral ROS: Negative except as above Review of Systems Social History: Social History Socioeconomic History Marital status: Spouse name: Not on file Number of children: Not on file Years of education: Not on file Highest education level: Not on file Occupational History Not on file Tobacco Use Smoking status: Never Smokeless tobacco: Never Substance and Sexual Activity Alcohol use: Never Drug use: Never Sexual activity: Defer Other Topics Concern Not on file Social History Narrative Not on file Social Drivers of Health Financial Resource Strain: Not on file Food Insecurity: No Food Insecurity (05/21/2024) Hunger Screening Food Insecurity - Worry: Never True Food Insecurity - Inability: Never True Transportation Needs: No Transportation Needs (05/21/2024) PRAPARE - Transportation Lack of Transportation (Medical): No Lack of Transportation (Non-Medical): No Physical Activity: Not on file Stress: Not on file Social Connections: Not on file Interpersonal Safety: Not At Risk (05/21/2024) Humiliation, Afraid, Rape, and Kick questionnaire Fear of Current or Ex-Partner: No Emotionally Abused: No Physically Abused: No Sexually Abused: No Housing Instability: Low Risk (05/21/2024) Housing Instability Housing Instability: No Family History: Family History Problem Relation Age of Onset No Known Problems Mother Cancer Father Physical Examination : Vitals: 05/26/24 1000 05/26/24 1115 05/26/24 1200 05/26/24 1300 BP: 124/77 Pulse: 81 88 88 82 Resp: 23 18 19 18 Temp: TempSrc: SpO2: 97% 97% 97% 96% Weight: Height: Temperature Range: Temp: 36.6 C (97.9 F) Temp Av.8 C (98.2 F) Min: 36.6 C (97.9 F) Max: 37 C (98.6 F) Physical Exam CONSTITUTIONAL: awake, alert, cooperative, no apparent distress, LUNGS: No increased work of breathing, no crackles or wheezing CARDIOVASCULAR: regular rate and rhythm ABDOMEN: normal bowel sounds, soft, non-distended, non-tender MUSCULOSKELETAL:both upper and lower extremities with no redness, warmth, or swelling SKIN: Oral sores NEUROLOGIC: Awake, alert, oriented to name, place and time. Follow commands. Cranial nerves grosslyintact Laboratory data: I have independently reviewed the following labs: Results from last 7 days Lab Units 05/26/24 0302 05/25/24 0321 05/24/24 0434 WBC X10E9/L 9.8 14.6* 22.0* HEMOGLOBIN g/dL 12.2 13.6 11.5* HEMATOCRIT % 35.1 39.5 34.2* PLATELETS X10E9/L 137* 130* 103* Results from last 7 days Lab Units 05/26/24 0302 05/25/24 1345 05/25/24 0321 05/24/24 1433 05/24/24 0530 POTASSIUM mmol/L 4.4 3.9 3.7 < > 3.7 CHLORIDE mmol/L 104 -- 105 -- 107 CO2 mmol/L 26 -- 26 -- 25 BUN mg/dL 19 -- 26 -- 33* CREATININE mg/dL 0.71 -- 0.79 -- 0.95 EGFR (CKD-EPI)NON-RACE DEPENDENT ml/min/1.73sq.m >90 -- 82 -- 66 CALCIUM mg/dL 8.2* -- 8.9 -- 8.6 MAGNESIUM mg/dL 1.8 -- 1.8 -- 1.9 < > = values in this interval not displayed. Results from last 7 days Lab Units 05/24/24 0530 05/23/24 0258 05/22/24 0200 ALK PHOS U/L 200* 256* 202* ALT U/L 53* 65* 79* AST U/L 56* 48* 90* No results found for: CRP No results found for: SEDRATE Cultures: Microbiology Results Procedure Component Value Units Date/Time Blood culture #1 [[id number]] Collected: 05/23/24 1020 Specimen: Blood Updated: 05/26/24 0938 Specimen Notes SUBOPTIMAL VOLUME OF BLOOD COLLECTED, RESULTS MAY BE AFFECTED. Culture NO GROWTH 3 DAYS Blood culture #2 [[id number]] Collected: 05/23/24 1020 Specimen: Blood Updated: 05/26/24 0939 Specimen Notes SUBOPTIMAL VOLUME OF BLOOD COLLECTED, RESULTS MAY BE AFFECTED. Culture NO GROWTH 3 DAYS Urine culture [[id number]] Collected: 05/21/24 1525 Specimen: Urine from Guevara Catheter Specimen Updated: 05/22/24 1420 Culture <10,000 ORGANISMS/ML NORMAL URO GENITAL ALANNAH Blood culture #2 [[id number]] (Abnormal) Collected: 05/21/24 1523 Specimen: Blood Updated: 05/24/24 0705 Culture ESCHERICHIA COLI FOR SUSCEPTIBILITY, SEE PREVIOUS REPORT. Blood culture #1 [[id number]] (Abnormal) (Susceptibility) Collected: 05/21/24 1520 Specimen: Blood Updated: 05/24/24 0703 Culture ESCHERICHIA COLI Escherichia coli detected by PCR. No resistance genes detected by PCR. Susceptibility Escherichia Coli ASHA METHOD AMP/SULBACTAM <=2/1 Susceptible Ampicillin <=2 Susceptible Cefazolin <=4 (VIEW NOTES) [1] Ceftriaxone <=0.25 Susceptible Ciprofloxacin <=0.25 Susceptible Gentamicin <=1 Susceptible Levofloxacin <=0.12 Susceptible PIPERACIL/TAZOBACTAM <=4 Susceptible Tobramycin <=1 Susceptible [1] CLSI interpretive criteria for nonurinary isolates are as follows: <=2 Susceptible, 4 Intermediate, Resistant >=8. Contact Microbiology laboratory if further susceptibility testing for Cefazolin is required. Imaging Studies: No results found. Medications: cefTRIAXone (ROCEPHIN) IV, 2,000 mg, intravenous, Q24H cholecalciferol (vitamin D3), 2,000 Units, oral, Daily gabapentin, 100 mg, oral, TID heparin (porcine), 5,000 Units, subcutaneous, Q8H OSVALDO meloxicam, 15 mg, oral, Daily uyhlsgtc-rewv-PR-calcium &mins, 1 tablet, oral, Daily Consult PICC nurse - Midline, , , Once AND sodium chloride, 10 mL, intravenous, Q12H AND sodium chloride, 10 mL, intravenous, PRN AND sodium chloride, 20 mL, intravenous, PRN valACYclovir, 500 mg, oral, BID Thank you for allowing us to participate in the care of this patient. Please call with questions. Vaishali Alberts APRN, [facility] [phone] This note was completed using a voice bundle shaker system. Every effort was made to ensure accuracy. However, inadvertent computerized bundle shaker errors may be present. STEPHEN Mancilla 05/26/24 [id number] * Tabby Iqbal MD - 05/25/2024 1:10 PM EDT [facility] PROGRESS NOTE 05/25/2024 Patient Name: Sharri Murillo : 1955 Hospital Day: 5 Chief complaint: No chief complaint on file. SUBJECTIVE Patient seen and examined bedside. Sitting comfortably in chair no distress. No acute events overnight Review of Systems Constitutional: Negative for fever and chills. Respiratory: Negative for cough, chest tightness and shortness of breath. Cardiovascular: Negative for chest pain, palpitations and leg swelling. Gastrointestinal: Negative for nausea, vomiting, abdominal pain and abdominal distention. OBJECTIVE Vital Signs: BP 126/63 Pulse 78 Temp 36.7 C (98.1 F) (Oral) Resp (!) 28 Ht 172.7 cm (5' 8 ) Wt (!) 144.8 kg (319 lb 3.6 oz) SpO2 95% BMI 48.54 kg/m Weight: Body mass index is 48.54 kg/m . Admission weight: (!) 147 kg (324 lb) Wt Readings from Last 3 Encounters: 05/25/24 (!) 144.8 kg (319 lb 3.6 oz) Input/Output: Intake/Output Summary (Last 24 hours) at 05/25/2024 1311 Last data filed at 05/25/2024 1301 Gross per 24 hour Intake 497.46 ml Output 4380 ml Net -3882.54 ml Physical Exam: Physical Exam Constitutional She is oriented to person, place, and time. No distress. Cardiovascular: Normal rate and regular rhythm. Heart Sounds: normal heart sounds. Pulmonary/Chest: Effort normal and breath sounds normal. No respiratory distress. Abdominal: Bowel sounds are normal. She exhibits no distension. Soft. There is no abdominal tenderness. Musculoskeletal: General: No edema. Neurological She is alert and oriented to person, place, and time. Grossly normal Skin: She is not diaphoretic. Labs/Imaging: Recent Results (from the past 48 hours) Potassium Collection Time: 05/23/24 8:15 PM Result Value Ref Range Potassium, Bld 3.7 3.5 - 5.0 mmol/L CBC auto differential Collection Time: 05/24/24 4:34 AM Result Value Ref Range White Blood Cells 22.0 (H) 4.0 - 11.0 X10E9/L RBC count 3.87 3.80 - 5.20 X10E12/L Hemoglobin 11.5 (L) 11.7 - 15.5 g/dL Hematocrit 34.2 (L) 35 - 47 % MCV 89 80 - 100 fL MCH 29.8 27 - 34 pg MCHC 33.7 32 - 36 g/dL RDW 15.3 (H) 11.5 - 15.0 % Platelets 103 (L) 150 - 450 X10E9/L MPV 8.6 7 - 12 fL Band 3.0 % Seg neutrophil 81.0 % Lymphocyte 11.0 % Monocytes 4.0 % Eosinophil 1.0 % Neutrophils Absolute (M) 18.5 (H) 1.5 - 6.6 X10E9/L Lymphocytes Absolute 2.4 1.0 - 3.5 X10E9/L Monocytes Absolute 0.9 0 - 0.9 X10E9/L Eosinophils Absolute 0.2 0.0 - 0.4 X10E9/L RBC Morphology NORMAL Comprehensive metabolic panel Collection Time: 05/24/24 5:30 AM Result Value Ref Range Sodium 141 134 - 146 mmol/L Potassium, Bld 3.7 3.5 - 5.0 mmol/L Chloride 107 98 - 109 mmol/L CO2 25 22 - 32 mmol/L Anion gap 9 5 - 15 mmol/L BUN 33 (H) 5 - 27 mg/dL Creatinine 0.95 0.40 - 1.00 mg/dL Glucose 80 65 - 99 mg/dL Calcium 8.6 8.5 - 10.5 mg/dL Total Protein 5.8 (L) 6.0 - 8.0 g/dL Albumin 2.8 (L) 3.2 - 5.3 g/dL Alkaline Phosphatase 200 (H) 39 - 130 U/L AST 56 (H) 0 - 41 U/L ALT 53 (H) 0 - 31 U/L Total bilirubin 0.6 0.3 - 1.2 mg/dL eGFR (CKD-EPI)non-race dependent 66 >59 ml/min/1.73sq.m Magnesium Collection Time: 05/24/24 5:30 AM Result Value Ref Range Magnesium 1.9 1.8 - 2.6 mg/dL Phosphorus Collection Time: 05/24/24 5:30 AM Result Value Ref Range Phosphorus 3.1 2.4 - 4.9 mg/dL Potassium Collection Time: 05/24/24 2:33 PM Result Value Ref Range Potassium, Bld 3.9 3.5 - 5.0 mmol/L Ionized magnesium Collection Time: 05/24/24 2:33 PM Result Value Ref Range Magnesium, ionized 0.61 0.45 - 0.74 mmol/L Basic Metabolic Panel Collection Time: 05/25/24 3:21 AM Result Value Ref Range Sodium 141 134 - 146 mmol/L Potassium, Bld 3.7 3.5 - 5.0 mmol/L Chloride 105 98 - 109 mmol/L CO2 26 22 - 32 mmol/L Anion gap 10 5 - 15 mmol/L BUN 26 5 - 27 mg/dL Creatinine 0.79 0.40 - 1.00 mg/dL Glucose 89 65 - 99 mg/dL Calcium 8.9 8.5 - 10.5 mg/dL eGFR (CKD-EPI)non-race dependent 82 >59 ml/min/1.73sq.m CBC auto differential Collection Time: 05/25/24 3:21 AM Result Value Ref Range White Blood Cells 14.6 (H) 4.0 - 11.0 X10E9/L RBC count 4.49 3.80 - 5.20 X10E12/L Hemoglobin 13.6 11.7 - 15.5 g/dL Hematocrit 39.5 35 - 47 % MCV 88 80 - 100 fL MCH 30.2 27 - 34 pg MCHC 34.3 32 - 36 g/dL RDW 15.4 (H) 11.5 - 15.0 % Platelets 130 (L) 150 - 450 X10E9/L MPV 8.3 7 - 12 fL % neutrophils 71.3 % % lymphocytes 21.7 % % monocytes 5.1 % % eosinophils 1.6 % % Basophils 0.3 % Neutrophils Absolute (A) 10.4 (H) 1.5 - 6.6 X10E9/L Lymphocytes Absolute 3.2 1.0 - 3.5 X10E9/L Monocytes Absolute 0.7 0 - 0.9 X10E9/L Eosinophils Absolute 0.2 0.0 - 0.4 X10E9/L Basophils Absolute 0.0 0.0 - 0.2 X10E9/L Magnesium Collection Time: 05/25/24 3:21 AM Result Value Ref Range Magnesium 1.8 1.8 - 2.6 mg/dL Ionized calcium Collection Time: 05/25/24 3:21 AM Result Value Ref Range Calcium, ionized 4.8 4.5 - 5.3 mg/dL Available imaging and microbiology data has been reviewed in detail and is available in full per EMR. Medications: Reviewed extensively, available in full per EMR ASSESSMENT Septic shock-resolved E coli bacteremia secondary to obstructive uropathy status post nephrostomy tube placement. Blood culture on 05/21 growing E coli. Repeat blood culture 05/23- negative till date. On ceftriaxone with end date 06 04 2024 per ID. Outpatient follow-up with Urology for definitive treatment of ureteral stone Acute respiratory failure with hypoxia-resolved. Chest x-ray negative. Currently satting more than 90% on room air TIMBO most likely secondary to septic shock-resolved Thrombocytopenia secondary to sepsis-improving Normocytic anemia-hemoglobin 11.5. Stable Leukocytosis reactive to sepsis-improving Transaminitis secondary to sepsis-improving Mucocutaneous herpes PLAN Telemetry Continuous pulse oximetry. 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 Hemoglobin stable. Platelet count continues to improve. Leukocytosis resolved DVT prophylaxis-heparin Code status-full code Discharge disposition-home with home health and infusion. Medically ready for discharge This note was created with the assistance of a speech-recognition program. Every effort was made toensure accuracy; however, inadvertent computerized bundle shaker errors may be present. Electronically signed by: TABBY IQBAL MD 05/25/2024 1:11 PM * Tammy Boyd APRN-CIVIL ENGINEERING DRAFTSPERSON - 05/25/2024 8:30 AM EDT Images from the original note were not included. [facility] - Daily Progress Note Sharri Murillo Admission date/time 05/21/2024 12:52 PM Today's Date and Time: 05/25/2024, 2:47 PM Impression : Sepsis E coli bacteremia Left hydronephrosis/obstructive stone Acute kidney injury Leukocytosis 39.0 upon admission HSV sores mouth and lips Morbid obesity of the disease BMI 49.2 Non STEMI Recommendations: Reportedly CT of the abdomen from [facility] with left-sided stone with significant hydronephrosis (awaiting report) Status post left percutaneous nephrostomy tube placement Blood cultures from [facility] May 19, 2024, reportedly not yet finalized, preliminary with E coli and Enterobacterals Urine culture from [facility] on May 21, 2024 finalized with no growth (Above cultures scanned into media) Final blood culture May 21, 2024 with E coli Repeat blood cultures May 23, 2024 no growth day 2 Urine culture finalized negative Begin Valtrex Tentative plan to continue ceftriaxone through Jun 04, 2024 as long as repeat cultures remain negative Midline ordered Orders for antibiotics and lab work on discharge med rec Not ready for discharge Follow WBC, platelets, creatinine, LFTs WBC: 14.6 Creatinine: 0.79 Monitor temperatures: Afebrile Discharge planning as per primary care Supportive care FOLLOW UP/chief complaints E coli bacteremia Interval History: Patient is awake and alert, up out of bed to chair, denies unusual pain, reports feeling better, states eating and drinking okay without any nausea, vomiting or diarrhea reports anxious to get Guevara catheter out, new call sores noted to labs and also inside patient's mouth, Valtrex started ROS: Negative unless mentioned otherwise above Social History: Social History Socioeconomic History Marital status: Spouse name: Not on file Number of children: Not on file Years of education: Not on file Highest education level: Not on file Occupational History Not on file Tobacco Use Smoking status: Never Smokeless tobacco: Never Substance and Sexual Activity Alcohol use: Never Drug use: Never Sexual activity: Defer Other Topics Concern Not on file Social History Narrative Not on file Social Drivers of Health Financial Resource Strain: Not on file Food Insecurity: No Food Insecurity (05/21/2024) Hunger Screening Food Insecurity - Worry: Never True Food Insecurity - Inability: Never True Transportation Needs: No Transportation Needs (05/21/2024) PRAPARE - Transportation Lack of Transportation (Medical): No Lack of Transportation (Non-Medical): No Physical Activity: Not on file Stress: Not on file Social Connections: Not on file Interpersonal Safety: Not At Risk (05/21/2024) Humiliation, Afraid, Rape, and Kick questionnaire Fear of Current or Ex-Partner: No Emotionally Abused: No Physically Abused: No Sexually Abused: No Housing Instability: Low Risk (05/21/2024) Housing Instability Housing Instability: No Family History: Family History Problem Relation Age of Onset No Known Problems Mother Cancer Father Physical Examination : Vitals: 05/25/24 1143 05/25/24 1200 05/25/24 1300 05/25/24 1400 BP: 126/63 Pulse: 90 81 78 78 Resp: 25 (!) 29 (!) 28 (!) 28 Temp: TempSrc: SpO2: 95% 95% 95% 97% Weight: Height: Temperature Range: Temp: 36.7 C (98.1 F) Temp Av.9 C (98.4 F) Min: 36.7 C (98.1 F) Max: 37.1 C(98.8 F) CONSTITUTIONAL: awake, alert, cooperative, no apparent distress LUNGS: No increased work of breathing, no accessory muscle use, no rhonchi or wheezing CARDIOVASCULAR: regular rate and rhythm ABDOMEN: normal bowel sounds, soft, non-distended, non-tender MUSCULOSKELETAL:both upper and lower extremities with no redness, warmth, or swelling NEUROLOGIC: Awake, alert, oriented to name, place and time. Follow commands. Cranial nerves grosslyintact SKIN: Oral sores Laboratory data: I have independently reviewed the following labs: Results from last 7 days Lab Units 05/25/24 0321 05/24/24 0434 05/23/24 0258 WBC X10E9/L 14.6* 22.0* 39.0* HEMOGLOBIN g/dL 13.6 11.5* 11.7 HEMATOCRIT % 39.5 34.2* 34.6* PLATELETS X10E9/L 130* 103* 91* Results from last 7 days Lab Units 05/25/24 1345 05/25/24 0321 05/24/24 1433 05/24/24 0530 05/23/24 1021 05/23/24 0258 POTASSIUM mmol/L 3.9 3.7 3.9 3.7 < > 3.7 CHLORIDE mmol/L -- 105 -- 107 -- 103 CO2 mmol/L -- 26 -- 25 -- 20* BUN mg/dL -- 26 -- 33* -- 41* CREATININE mg/dL -- 0.79 -- 0.95 -- 1.47* EGFR (CKD-EPI)NON-RACE DEPENDENT ml/min/1.73sq.m -- 82 -- 66 -- 39* CALCIUM mg/dL -- 8.9 -- 8.6 -- 8.5 MAGNESIUM mg/dL -- 1.8 -- 1.9 -- 2.0 < > = values in this interval not displayed. Results from last 7 days Lab Units 05/24/24 0530 05/23/24 0258 05/22/24 0200 ALK PHOS U/L 200* 256* 202* ALT U/L 53* 65* 79* AST U/L 56* 48* 90* No results found for: CRP No results found for: SEDRATE Cultures: Microbiology Results Procedure Component Value Units Date/Time Blood culture #1 [[id number]] Collected: 05/23/24 1020 Specimen: Blood Updated: 05/25/24 1038 Specimen Notes SUBOPTIMAL VOLUME OF BLOOD COLLECTED, RESULTS MAY BE AFFECTED. Culture NO GROWTH 2 DAYS Blood culture #2 [[id number]] Collected: 05/23/24 1020 Specimen: Blood Updated: 05/25/24 1039 Specimen Notes SUBOPTIMAL VOLUME OF BLOOD COLLECTED, RESULTS MAY BE AFFECTED. Culture NO GROWTH 2 DAYS Urine culture [[id number]] Collected: 05/21/24 1525 Specimen: Urine from Guevara Catheter Specimen Updated: 05/22/24 1420 Culture <10,000 ORGANISMS/ML NORMAL URO GENITAL ALANNAH Blood culture #2 [[id number]] (Abnormal) Collected: 05/21/24 1523 Specimen: Blood Updated: 05/24/24 0705 Culture ESCHERICHIA COLI FOR SUSCEPTIBILITY, SEE PREVIOUS REPORT. Blood culture #1 [[id number]] (Abnormal) (Susceptibility) Collected: 05/21/24 1520 Specimen: Blood Updated: 05/24/24 0703 Culture ESCHERICHIA COLI Escherichia coli detected by PCR. No resistance genes detected by PCR. Susceptibility Escherichia Coli ASHA METHOD AMP/SULBACTAM <=2/1 Susceptible Ampicillin <=2 Susceptible Cefazolin <=4 (VIEW NOTES) [1] Ceftriaxone <=0.25 Susceptible Ciprofloxacin <=0.25 Susceptible Gentamicin <=1 Susceptible Levofloxacin <=0.12 Susceptible PIPERACIL/TAZOBACTAM <=4 Susceptible Tobramycin <=1 Susceptible [1] CLSI interpretive criteria for nonurinary isolates are as follows: <=2 Susceptible, 4 Intermediate, Resistant >=8. Contact Microbiology laboratory if further susceptibility testing for Cefazolin is required. Imaging Studies: No results found. Medications: cefTRIAXone (ROCEPHIN) IV, 2,000 mg, intravenous, Q24H cholecalciferol (vitamin D3), 2,000 Units, oral, Daily gabapentin, 100 mg, oral, TID heparin (porcine), 5,000 Units, subcutaneous, Q8H OSVALDO meloxicam, 15 mg, oral, Daily dlijzqqa-xygf-WG-calcium &mins, 1 tablet, oral, Daily Consult PICC nurse - Midline, , , Once AND sodium chloride, 10 mL, intravenous, Q12H AND sodium chloride, 10 mL, intravenous, PRN AND sodium chloride, 20 mL, intravenous, PRN valACYclovir, 500 mg, oral, BID Thank you for allowing us to participate in the care of this patient. Please call with questions. [facility] Tammy Boyd APRN, CNP Preferred method of communication between 0700 and 1700 Epic chat If no response to Epic chat within 30 minutes, after 1700, and for urgent matters call [phone], if no answer call [phone] This note was completed using a voice bundle shaker system. Every effort was made to ensure accuracy. However, inadvertent computerized bundle shaker errors may be present. STEPHEN Mills 05/25/24 1508 STEPHEN Mills 05/25/24 1901 * Lesvia Andrews MD - 05/24/2024 2:10 PM EDT 05/24/2024 Patient Name: Sharri Murillo : 1955 Problem List: Principal Problem: Septic shock ([facility] [place]) Assessment and Plan: Septic shock secondary to E coli bacteremia from obstructive uropathy. CT at outside facility with left ureteral stone with hydronephrosis. S/p nephrostomy tube placement. Blood culture on 05/21 withE coli. Repeat blood cultures on 05/23 remain negative. Positive urinalysis. Urine culture negative. Procalcitonin improved from 424-242. Lactic acidosis resolved, 1.3. Leukocytosis improving, WBC currently 22. Off pressors. Currently on IV ceftriaxone per Infectious Disease recommendations, plan to continue until 06/04. Will need outpatient follow-up with Urology for stone removal and nephrostomy tube removal. Acute hypoxic respiratory failure. Resolved. Chest x-ray negative. Currently on room air saturatingwell. Acute kidney injury, resolved. Creatinine currently 0.95. Thrombocytopenia, improving, platelets currently 103. Likely bone marrow suppression due to sepsis Normocytic anemia, hemoglobin currently 11.5. Stable. No overt bleeding. Continue to monitor. Transaminitis, currently improving. Likely secondary to septic shock. Continue to monitor levels. DVT prophylaxis: Heparin subcutaneously GI prophylaxis: Not indicated Code status: Full code Discharge planning: PT OT consulted for discharge planning. Pending recommendations. Also will needoutpatient IV antibiotics to be set up with Case Management prior to discharge. -plans discussed with RN SUBJECTIVE: Chief complaints: Dysuria and generalized weakness and fevers Patient was seen and evaluated at bedside today. Doing well. No chest pain. No shortness of breath.No coughing or sputum production. Sitting in her chair. Eating well with no nausea or vomiting. Review of Systems: All 12 systems were negative unless mentioned in the present history. OBJECTIVE: Exam: BP 132/76 Pulse 87 Temp 36.9 C (98.5 F) (Axillary) Resp 23 Ht 172.7 cm (5' 8 ) Wt (!) 147.1 kg (324 lb 4.8 oz) SpO2 95% BMI 49.31 kg/m Intake/Output Summary (Last 24 hours) at 05/24/2024 1410 Last data filed at 05/24/2024 1145 Gross per 24 hour Intake 49.57 ml Output 3130 ml Net -3080.43 ml General appearance: Awake, alert and oriented, not in acute distress Head: Normocephalic, atraumatic, no conjunctival injection Lungs: no accessory muscle, clear to auscultation bilaterally, no crackles or wheezes Heart normal S1-S2, no audible murmurs, no gallops or rubs Chest wall: No tenderness Abdomen: Soft, nondistended, nontender Extremities: No edema, no cyanosis Labs: Recent Results (from the past 24 hours) Potassium Collection Time: 05/23/24 8:15 PM Result Value Ref Range Potassium, Bld 3.7 3.5 - 5.0 mmol/L CBC auto differential Collection Time: 05/24/24 4:34 AM Result Value Ref Range White Blood Cells 22.0 (H) 4.0 - 11.0 X10E9/L RBC count 3.87 3.80 - 5.20 X10E12/L Hemoglobin 11.5 (L) 11.7 - 15.5 g/dL Hematocrit 34.2 (L) 35 - 47 % MCV 89 80 - 100 fL MCH 29.8 27 - 34 pg MCHC 33.7 32 - 36 g/dL RDW 15.3 (H) 11.5 - 15.0 % Platelets 103 (L) 150 - 450 X10E9/L MPV 8.6 7 - 12 fL Band 3.0 % Seg neutrophil 81.0 % Lymphocyte 11.0 % Monocytes 4.0 % Eosinophil 1.0 % Neutrophils Absolute (M) 18.5 (H) 1.5 - 6.6 X10E9/L Lymphocytes Absolute 2.4 1.0 - 3.5 X10E9/L Monocytes Absolute 0.9 0 - 0.9 X10E9/L Eosinophils Absolute 0.2 0.0 - 0.4 X10E9/L RBC Morphology NORMAL Comprehensive metabolic panel Collection Time: 05/24/24 5:30 AM Result Value Ref Range Sodium 141 134 - 146 mmol/L Potassium, Bld 3.7 3.5 - 5.0 mmol/L Chloride 107 98 - 109 mmol/L CO2 25 22 - 32 mmol/L Anion gap 9 5 - 15 mmol/L BUN 33 (H) 5 - 27 mg/dL Creatinine 0.95 0.40 - 1.00 mg/dL Glucose 80 65 - 99 mg/dL Calcium 8.6 8.5 - 10.5 mg/dL Total Protein 5.8 (L) 6.0 - 8.0 g/dL Albumin 2.8 (L) 3.2 - 5.3 g/dL Alkaline Phosphatase 200 (H) 39 - 130 U/L AST 56 (H) 0 - 41 U/L ALT 53 (H) 0 - 31 U/L Total bilirubin 0.6 0.3 - 1.2 mg/dL eGFR (CKD-EPI)non-race dependent 66 >59 ml/min/1.73sq.m Magnesium Collection Time: 05/24/24 5:30 AM Result Value Ref Range Magnesium 1.9 1.8 - 2.6 mg/dL Phosphorus Collection Time: 05/24/24 5:30 AM Result Value Ref Range Phosphorus 3.1 2.4 - 4.9 mg/dL Available imaging and microbiology data has been reviewed in detail and is available in full per EMR. This note is created with the assistance of a speech-recognition program. While intending to generate a document that actually reflects the content of the visit, no guarantees can be provided that every mistake has been identified and corrected by editing. * Maribel Zepeda MD - 05/24/2024 11:32 AM EDT Images from the original note were not included. [facility] - Daily Progress Note Sharri Murillo Admission date/time 05/21/2024 12:52 PM Today's Date and Time: 05/24/2024, 11:33 AM Impression : Sepsis E coli bacteremia Left hydronephrosis/obstructive stone Acute kidney injury Leukocytosis 39.0 Morbid obesity of the disease BMI 49.2 Non STEMI Recommendations: Order placed to get CT abdomen pelvis official results from [facility] and cultures from [facility] CT of the abdomen showed left-sided stone with significant hydronephrosis as per H and P note Status post left percutaneous nephrostomy tube placement Final blood culture May 21, 2024 with E coli Repeat blood cultures collected on 103 preliminary negative to this date and time Urine culture finalized negative Tentative plan to continue ceftriaxone through June 04 as long as repeat cultures remain negative WBC, platelet, creatinine, LFT weekly while on antibiotic Scripts printed signed and placed in hard chart Not ready for discharge today Follow WBC, platelets, creatinine, LFTs WBC: 22.0 today Creatinine: 0.95 Monitor temperatures: Afebrile Supportive care Discharge planning as per primary care FOLLOW UP/chief complaints Bacteremia Obstructive stone Interval History: Patient is resting in recliner chair. Feeling much better. Remains on IV antibiotic. With tentativeplan in place. WBC remains high but is trending down. Cultures are being reviewed. Afebrile. No newskin rash. No nausea vomiting or diarrhea at present. ROS: Negative except as above Review of Systems Social History: Social History Socioeconomic History Marital status: Spouse name: Not on file Number of children: Not on file Years of education: Not on file Highest education level: Not on file Occupational History Not on file Tobacco Use Smoking status: Never Smokeless tobacco: Never Substance and Sexual Activity Alcohol use: Never Drug use: Never Sexual activity: Defer Other Topics Concern Not on file Social History Narrative Not on file Social Drivers of Health Financial Resource Strain: Not on file Food Insecurity: No Food Insecurity (05/21/2024) Hunger Screening Food Insecurity - Worry: Never True Food Insecurity - Inability: Never True Transportation Needs: No Transportation Needs (05/21/2024) PRAPARE - Transportation Lack of Transportation (Medical): No Lack of Transportation (Non-Medical): No Physical Activity: Not on file Stress: Not on file Social Connections: Not on file Interpersonal Safety: Not At Risk (05/21/2024) Humiliation, Afraid, Rape, and Kick questionnaire Fear of Current or Ex-Partner: No Emotionally Abused: No Physically Abused: No Sexually Abused: No Housing Instability: Low Risk (05/21/2024) Housing Instability Housing Instability: No Family History: Family History Problem Relation Age of Onset No Known Problems Mother Cancer Father Physical Examination : Vitals: 05/24/24 0400 05/24/24 0500 05/24/24 0600 05/24/24 0700 BP: 113/62 119/65 129/73 138/90 Pulse: 78 68 69 70 Resp: (!) 27 Temp: TempSrc: SpO2: 94% 94% 94% 93% Weight: (!) 147.1 kg (324 lb 4.8 oz) Height: Temperature Range: Temp: 36.9 C (98.5 F) Temp Av.8 C (98.2 F) Min: 36.7 C (98.1 F) Max: 36.9 C(98.5 F) Physical Exam CONSTITUTIONAL: awake, alert, cooperative, no apparent distress, LUNGS: No increased work of breathing, good air exchange, clear to auscultation bilaterally, no crackles or wheezing CARDIOVASCULAR: regular rate and rhythm, normal S1 and S2, and no murmur noted ABDOMEN: normal bowel sounds, soft, non-distended, non-tender, no masses palpated, no hepatosplenomegally, nephrostomy tube in place MUSCULOSKELETAL:both upper and lower extremities with no redness, warmth, or swelling NEUROLOGIC: Awake, alert, oriented to name, place and time. Follow commands. Cranial nerves grosslyintact SKIN: no rash Laboratory data: I have independently reviewed the following labs: Results from last 7 days Lab Units 05/24/24 0434 05/23/2425705/22/24 020 WBC X10E9/L 22.0* 39.0* 28.1* HEMOGLOBIN g/dL 11.5* 11.7 10.6* HEMATOCRIT % 34.2* 34.6* 31.3* PLATELETS X10E9/L 103* 91* 60* Results from last 7 days Lab Units 05/24/24 0505/23/24201405/23/24 1021 05/23/2425705/22/24 020 POTASSIUM mmol/L 3.7 3.7 3.5 3.7 4.2 CHLORIDE mmol/L 107 -- -- 103 104 CO2 mmol/L 25 -- -- 20* 20* BUN mg/dL 33* -- -- 41* 28* CREATININE mg/dL 0.95 -- -- 1.47* 1.53* EGFR (CKD-EPI)NON-RACE DEPENDENT ml/min/1.73sq.m 66 -- -- 39* 37* CALCIUM mg/dL 8.6 -- -- 8.5 7.8* MAGNESIUM mg/dL 1.9 -- -- 2.0 1.8 Results from last 7 days Lab Units 05/24/24 0530 05/23/2425705/22/24 0200 ALK PHOS U/L 200* 256* 202* ALT U/L 53* 65* 79* AST U/L 56* 48* 90* No results found for: CRP No results found for: SEDRATE Cultures: Microbiology Results Procedure Component Value Units Date/Time Blood culture #1 [[id number]] Collected: 05/23/24 1020 Specimen: Blood Updated: 05/24/24 1038 Specimen Notes SUBOPTIMAL VOLUME OF BLOOD COLLECTED, RESULTS MAY BE AFFECTED. Culture NO GROWTH 1 DAY Blood culture #2 [[id number]] Collected: 05/23/24 1020 Specimen: Blood Updated: 05/24/24 1039 Specimen Notes SUBOPTIMAL VOLUME OF BLOOD COLLECTED, RESULTS MAY BE AFFECTED. Culture NO GROWTH 1 DAY Urine culture [[id number]] Collected: 05/21/24 1525 Specimen: Urine from Guevara Catheter Specimen Updated: 05/22/24 1420 Culture <10,000 ORGANISMS/ML NORMAL URO GENITAL ALANNAH Blood culture #2 [[id number]] (Abnormal) Collected: 05/21/24 1523 Specimen: Blood Updated: 05/24/24 0705 Culture ESCHERICHIA COLI FOR SUSCEPTIBILITY, SEE PREVIOUS REPORT. Blood culture #1 [[id number]] (Abnormal) (Susceptibility) Collected: 05/21/24 1520 Specimen: Blood Updated: 05/24/24 0703 Culture ESCHERICHIA COLI Escherichia coli detected by PCR. No resistance genes detected by PCR. Susceptibility Escherichia Coli ASHA METHOD AMP/SULBACTAM <=2/1 Susceptible Ampicillin <=2 Susceptible Cefazolin <=4 (VIEW NOTES) [1] Ceftriaxone <=0.25 Susceptible Ciprofloxacin <=0.25 Susceptible Gentamicin <=1 Susceptible Levofloxacin <=0.12 Susceptible PIPERACIL/TAZOBACTAM <=4 Susceptible Tobramycin <=1 Susceptible [1] CLSI interpretive criteria for nonurinary isolates are as follows: <=2 Susceptible, 4 Intermediate, Resistant >=8. Contact Microbiology laboratory if further susceptibility testing for Cefazolin is required. Imaging Studies: IR percutaneous placement nephrostomy tube left Result Date: 05/21/2024 EXAM: Image guided percutaneous nephrostomy tube placement, left CLINICAL HISTORY: 68-year-old female with obstructing left ureterovesicular stone in concern for urosepsis presents for percutaneous nephrostomy tube placement. STAFF: Dr. Den Thompson ANESTHESIA: Moderate sedation with Versed 2 mg and Fentanyl 100 mcg IV; A qualified, independent radiology nurse monitored the patient's cardiovascular status during the procedure. 1% Lidocaine used as local anesthetic. Sedation time was 30 minutes. Total fluoroscopy time= minutes Reference Air Kerma = mGy Total saved images: 2 fluoroscopy, 1ultrasound TECHNIQUE: Informed written and verbal consent was obtained following discussion of procedure and risks. All questions were answered. Final verification was performed. Patient was placed on the table prone. The left flank was prepared and draped in usual sterile fashion. Limited ultrasound demonstrates moderate hydronephrosis. A skin entry site was marked, 1% lidocaine was used for local anesthesia. Access to a posterior inferior calyx was obtained utilizing a 21- gauge needle under real-time ultrasound guidance. This was confirmed with return of clear urine, contrast injection demonstrates opacification of the collecting system. Using the AccuStick introducer set, the system was upsized to accommodate an 035 Amplatz wire. The tract was then dilated to accommodate a 10 [place] nephrostomy tube. The catheter was secured with a single 0 Prolene suture. Dressing applied. Patient tolerated all procedures well and there were no complications. FINDINGS: Severe left hydronephrosis, fluoroscopic images demonstrated appropriate positioning of nephrostomy tube within the collecting system IMPRESSION: Successful image guided placement of left 10 [place]ar[place]uan percutaneous nephrostomy tube PLAN: Maintained to gravity drainage Follow-up urine culture Routine catheter exchange should be performed in 6-8 weeks pending definitive urologic management Finalized by MD Guilherme on 05/21/2024 5:07 PM X-ray chest 1 view Result Date: 05/21/2024 Single view chest XR CHEST 1 VW History: central venous line placement verification Comparison: May 21 at 4:24 AM current examination 2:20 PM Impression: * No consolidation or pleural fluid. No acute findings. * Central line placed at the superior vena cava. Poor inspiration without acute disease. No pneumothorax. Finalized by Jorge Mcdaniels MD on 05/21/2024 2:30 PM Medications: cefTRIAXone (ROCEPHIN) IV, 2,000 mg, intravenous, Q24H cholecalciferol (vitamin D3), 2,000 Units, oral, Daily gabapentin, 100 mg, oral, TID heparin (porcine), 5,000 Units, subcutaneous, Q8H OSVALDO meloxicam, 15 mg, oral, Daily oyyrttgr-[id number]-RU-calcium &mins, 1 tablet, oral, Daily Thank you for allowing us to participate in the care of this patient. Please call with questions. This note was completed using a voice bundle shaker system. Every effort was made to ensure accuracy. However, inadvertent computerized bundle shaker errors may be present. Grisel Thakur APRN, MANAGER [employer] [phone] STEPHEN Avilez 05/24/24 1140 IMaribel MD, personally performed etch-ts-yanp diagnostic evaluation on this patient I reviewed and performed all the whitlock component of the patient visit I reviewed FATIMAH history, exam and MDM - Maribel Zepeda MD 05/24/24 11:53 AM * MACKENZIE Tariq - 05/24/2024 11:19 AM EDT BRIEF NUTRITION NOTE NUTRITION ASSESSMENT: Reason to be seen: nutrition screen for poor po intake [employer]ER Patient History: Brief Clinical Summary: Presented with fiber, chills, generalized weakness, dysuria. Patient with septic shock in setting of obstructive stone with left- sided hydronephrosis s/p left nephrostomy tubeplacement 05/21. Medications reviewed: MVI Labs (comments): slightly elevated LFTs Nutrition Focused Physical Findings: good appetite, BM 05/23 Food/Nutrition Related History: Diet History: unable to obtain, patient going to the bathroom at time of visit. Nutrition Knowledge/Beliefs/Attitudes: not assessed Allergies: Allergies Allergen Reactions Sulfa (Sulfonamide Antibiotics) Hives and Other (See Comments) Diet/ Nutrition Order Review: Dietary Orders (From admission, onward) Start Ordered 05/22/24 1423 Adult diet Regular Texture Diet effective now Question: Diet Type: Answer: Regular Texture 05/22/24 1423 Diet Intakes: good po intake/appetite, no documentation of po intake% Oral Supplemental Intake/ Acceptance: none ordered Anthropometrics: Ht Readings from Last 1 Encounters: 05/21/24 172.7 cm (5' 8 ) Wt Readings from Last 20 Encounters: 05/24/24 (!) 147.1 kg (324 lb 4.8 oz) Last 3 Weight Readings 05/21/24 1200 05/22/24 0300 05/24/24 0500 Weight: (!) 147 kg (324 lb) (!) 150 kg (330 lb 11 oz) (!) 147.1 kg (324 lb 4.8 oz) Admit Weight: 150kg (bed scale, 05/22/24) Usual Body Weight: see above for wt trends [place] Body Weight: 64kg Percent [place] Body Weight: 234% Weight Changes: down 2.9kg over 2 days Body Mass Index: Body mass index is 49.31 kg/m . BMI Category: Obese class 3 (> or = 40.00) Malnutrition Status: Malnutrition Present: No NUTRITION DIAGNOSIS: No Diagnosis: No nutrition diagnosis at this time (NO 1.1) NUTRITION INTERVENTIONS: Meals & snacks: diet as tolerated GOAL(S): po intake 75% of meals NUTRITION MONITORING AND EVALUATION: po intake, weight/lab trends, POC RD will continue to follow for duration of admit; will remain available by consult for specific nutrition needs. Yecenia Gomes RD, LD Clinical Dietitian Direct Line * Esme Chen MD - 05/23/2024 10:59 AM EDT Images from the original note were not included. Koby Copeland Jr., MD, Margarito Martinez Jr., MD, Marco Swanson MD, Aleksandra Sandoval MD, Sd Silverman MD, Taisha Childs MD, Angella Segovia MD, Tom Raymundo MD, Bryan Wong MD, Esme Chen MD Urology - Progress Note Chief Complaint: Obstructing left UVJ stone, sepsis Subjective: No acute events overnight. Patient denies F/C/N/V/CP/SOA. Weight: (!) 150 kg (330 lb 11 oz) Patient Vitals for the past 24 hrs: BP Temp Temp src Pulse Resp SpO2 05/23/24 0845 -- -- -- 80 24 95 % 05/23/24 0830 (!) 107/93 -- -- 79 18 95 % 05/23/24 0815 -- -- -- 87 21 93 % 05/23/24 0800 -- 36.8 C (98.2 F) Oral 83 22 93 % 05/23/24 0745 -- -- -- 81 (!) 28 92 % 05/23/24 0730 -- -- -- 79 (!) 30 91 % 05/23/24 0715 -- -- -- 80 20 91 % 05/23/24 0700 (!) 130/94 -- -- 78 (!) 28 93 % 05/23/24 0300 134/84 36.4 C (97.6 F) Oral 82 22 93 % 05/22/24 2300 135/87 36.4 C (97.6 F) Oral 69 21 92 % 05/22/24 1900 121/73 36.6 C (97.8 F) Oral 69 18 95 % 05/22/24 1600 111/68 -- -- 75 24 92 % 05/22/24 1500 120/78 -- -- 67 24 95 % 05/22/24 1400 131/81 -- -- 71 19 95 % 05/22/24 1300 120/76 -- -- 72 (!) 26 96 % 05/22/24 1230 -- 36.6 C (97.8 F) Oral 70 (!) 28 94 % 05/22/24 1200 124/77 -- -- 74 (!) 27 94 % Intake/Output Summary (Last 24 hours) at 05/23/2024 1100 Last data filed at 05/23/2024 0800 Gross per 24 hour Intake 132.46 ml Output 1640 ml Net -1507.54 ml Results from last 7 days Lab Units 05/23/24 0258 05/22/24 0200 05/21/24 2045 05/21/24 1320 05/21/24 1310 POTASSIUM mmol/L 3.7 4.2 3.8 -- 3.1* CHLORIDE mmol/L 103 104 -- -- 101 CO2 mmol/L 20* 20* -- -- 22 BUN mg/dL 41* 28* -- -- 21 CREATININE mg/dL 1.47* 1.53* -- -- 1.50* BEDSIDE GLUCOSE -- -- -- < > -- GLUCOSE mg/dL 93 116* -- -- 110* CALCIUM mg/dL 8.5 7.8* -- -- 8.1* < > = values in this interval not displayed. Results from last 7 days Lab Units 05/23/24 0258 05/22/24 0200 05/21/24 1310 WBC X10E9/L 39.0* 28.1* 15.8* HEMOGLOBIN g/dL 11.7 10.6* 11.6* HEMATOCRIT % 34.6* 31.3* 34.6* PLATELETS X10E9/L 91* 60* 63* Lab Results Component Value Date SPECIFICGRA 1.035 05/21/2024 LEUKOCYTE Large (A) 05/21/2024 GLU 93 05/23/2024 UROBILINOGEN <1.1 05/21/2024 Additional Lab/culture results: None Physical Exam: NAD, AOx3 NLB, equal chest rise bilaterally 2+ radial pulses bilaterally ABD nondistended Interval Imaging Findings: No results found. Assessment ( Problem List): Sharri Murillo is a 68 y.o. White or female who presents with: Left obstructing large UPJ stone status post left nephrostomy tube placement Sepsis secondary to UTI with E coli bacteremia Left renal stone Plan: Worsening leukocytosis, possible leukemoid reaction or related to septicemia, ID consultation and recommendations Remains off pressors Renal function stable Continue ICU supportive care Will plan for treatment of stone ureteroscopically in the near future once clinically treated for septicemia Esme Chen MD [facility] 11:00 AM 05/23/24 * Ryan Benitez MD - 05/23/2024 9:47 AM EDT Images from the original note were not included. CRITICAL CARE PROGRESS NOTE Name: Sharri Murillo Age: 68 y.o. Date: 05/23/24 Length of Stay 2 day(s) Assessment: Septic shock due to urosepsis and E coli bacteremia, improved Off pressors Obstructive uropathy status post percutaneous drainage E coli bacteremia, positive blood culture on 05/21/2024 Acute kidney injury due to above has improved, creatinine 1.47 mg/dL this a.m. Acute respiratory failure - resolved Thrombocytopenia in the setting of severe sepsis- improving 91,000 on a.m. labs Lactic acidosis - resolved Plan: Urology consulted Maintain left nephrostomy tube Outpatient treatment of large left ureteral stone Continue antibiotic treatment Titrate oxygen to maintain SpO2 of 92% or greater Currently on room air Monitor urine output -1435 24/hr Rocephin for E coli bacteremia ID consulted for continued antibiotic treatment Out of bed to chair PT/OT on board Monitor daily labs Replace electrolytes per ICU protocol Nutrition: Regular diet DVT prophylaxis: Heparin subQ GI prophylaxis: Not indicated Glycemic control: Euglycemic Okay to transfer out of the ICU per critical Care ELIJAH Borja-ACNP Acute Care Nurse Practitioner [facility] Subjective: NOIs. Examined while resting in the chair. present at bedside. Patient states she is havingno pain and no shortness of breath. Denies nausea vomiting. Endorses good appetite. No fevers reported overnight. Hospital Problem: Principal Problem: Septic shock ([facility]) OBJECTIVE: General Appearance: Comfortable, in no acute distress and not in pain Lungs: effort normal rate normal decreased breath sounds Lungs comment: Room air Heart: rate normal regular rhythm Abdomen: soft bowel sounds normal no tenderness Abdomen comment: Nephrostomy tube present Extremities: ROM normal Neuro: PERRL Physical Exam: Constitutional: Well-developed, well-nourished, morbidly obese no acute distress Head: Normocephalic and atraumatic Heart: S1, S2, RRR, no gallops, rubs, or murmurs. Distal pulses are palpable Lungs: Clear/diminished in the bases, resps easy and non-labored. Room air Neuro: ANITHA BURNS, awake and appropriately following commands GI: Abd soft, rounded with active BS : Urine is yellow and clear per guevara cath Extremities: No peripheral edema noted Vital Signs Temp: [36.4 C (97.6 F)-36.8 C (98.2 F)] 36.8 C (98.2 F) Pulse: [67-87] 80 Resp: [18-33] 24 BP: (107-135)/(68-94) 107/93 SpO2: [91 %-96 %] 95 % O2 Device: None (Room air) O2 Device: None (Room air) I/O last 3 completed shifts: In: 3675.8 [I.V.:1848.9; IV Piggyback:1826.9] Out: 1929 [Urine:1929] Results from last 7 days Lab Units 05/23/2425705/22/2419905/21/24204405/21/24 1310 SODIUM mmol/L 137 139 -- 137 POTASSIUM mmol/L 3.7 4.2 3.8 3.1* CHLORIDE mmol/L 103 104 -- 101 CO2 mmol/L 20* 20* -- 22 BUN mg/dL 41* 28* -- 21 CREATININE mg/dL 1.47* 1.53* -- 1.50* CALCIUM mg/dL 8.5 7.8* -- 8.1* PHOSPHORUS mg/dL 2.4 4.7 -- 2.8 MAGNESIUM mg/dL 2.0 1.8 -- 1.1* Results from last 3 days Lab Units 05/23/2425705/22/24 02005/21/24 1310 AST U/L 48* 90* 189* ALT U/L 65* 79* 95* ALK PHOS U/L 256* 202* 242* Results from last 3 days Lab Units 05/21/24 1310 INR 1.2* PROTIME sec 14.1* Results from last 3 days Lab Units 05/23/2425705/22/24 0200 05/21/24 1310 WBC X10E9/L 39.0* 28.1* 15.8* HEMOGLOBIN g/dL 11.7 10.6* 11.6* HEMATOCRIT % 34.6* 31.3* 34.6* PLATELETS X10E9/L 91* 60* 63* MCV fL 88 88 89 MCH pg 29.7 29.8 29.7 MCHC g/dL 33.7 33.7 33.5 RDW % 15.2* 14.9 15.3* MONO ABS MAN X10E9/L 0.4 0.6 0.5 Microbiology Results Procedure Component Value Units Date/Time Urine culture [[id number]] Collected: 05/21/241524 Specimen: Urine from Guevara Catheter Specimen Updated: 05/22/24 1420 Culture <10,000 ORGANISMS/ML NORMAL URO GENITAL ALANNAH Blood culture #2 [[id number]] Collected: 05/21/24 152 Specimen: Blood Updated: 05/22/24 0609 Culture GRAM NEGATIVE RODS CULTURE IN PROGRESS Blood culture #1 [[id number]] (Abnormal) Collected: 05/21/24 1520 Specimen: Blood Updated: 05/23/24 0918 Culture ESCHERICHIA COLI CULTURE IN PROGRESS Escherichia coli detected by PCR. No resistance genes detected by PCR. Results from last 7 days Lab Units 05/23/24 0258 05/22/24 0200 05/21/24 1320 05/21/24 1310 BEDSIDE GLUCOSE mg/dL -- -- 114* -- GLUCOSE mg/dL 93 116* -- 110* Microbiology Results Procedure Component Value Units Date/Time Urine culture [[id number]] Collected: 05/21/24 1525 Specimen: Urine from Guevara Catheter Specimen Updated: 05/22/24 1420 Culture <10,000 ORGANISMS/ML NORMAL URO GENITAL ALANNAH Blood culture #2 [[id number]] Collected: 05/21/24 1523 Specimen: Blood Updated: 05/22/24 0609 Culture GRAM NEGATIVE RODS CULTURE IN PROGRESS Blood culture #1 [[id number]] (Abnormal) Collected: 05/21/24 1520 Specimen: Blood Updated: 05/23/24 0918 Culture ESCHERICHIA COLI CULTURE IN PROGRESS Escherichia coli detected by PCR. No resistance genes detected by PCR. Lines/Drains Peripheral IV 05/21/24 Left Antecubital (Active) Line Status No blood return;Saline locked;Flushed;Alcohol sponge cap changed;Connections checked/tightened 05/23/24 0800 Site Assessment Clean;Dry;Intact 05/23/24 0800 Dressing Type Occlusive;Transparent 05/23/24 0800 Dressing Status Clean;Dry;Intact 05/23/24 0800 Dressing Intervention Initial dressing 05/21/241999 Dressing Change Due (Non-Gauze) 05/28/24 05/21/241999 Peripheral IV 05/21/24 Right Wrist (Active) Line Status No blood return;Saline locked;Flushed;Alcohol sponge cap changed;Connections checked/tightened 05/23/24 0300 Site Assessment Clean;Intact;Dry 05/23/24 0300 Dressing Type Occlusive;Transparent 05/23/24 0300 Dressing Status Clean;Dry;Intact 05/23/24 0300 Dressing Intervention Initial dressing 05/21/241999 Dressing Change Due (Non-Gauze) 05/28/24 05/21/241999 Peripheral IV 05/21/24 Posterior;Right Hand (Active) Line Status Saline locked;Flushed;Alcohol sponge cap changed;Connections checked/tightened;No bloodreturn 05/23/24 08 Site Assessment Clean;Dry;Intact 05/23/24 08 Dressing Type Occlusive;Transparent 05/23/24 08 Dressing Status Clean;Dry;Intact 05/23/24 0800 Dressing Intervention Initial dressing 05/21/241999 Dressing Change Due (Non-Gauze) 05/28/24 05/21/241999 Nephrostomy 05/21/24 Left (Active) Interventions Empty pouch 05/22/24 1331 Site Assessment Clean;Intact 05/23/24 08 Dressing Status Clean;Dry;Intact 05/23/24 0300 Dressing Intervention Initial dressing 05/21/24 1800 Collection Container Standard drainage bag/container 05/23/24 08 Securement Method Transparent dressing 05/23/24 08 Urine Color Jaya 05/23/24 08 Urine Appearance Hazy 05/23/24 08 Output (mL) 200 mL 05/23/24 0500 Urinary Catheter 05/21/24 (Active) Catheter Status Patent 05/23/24 08 Site Assessment Clean;Skin intact 05/23/24 08 Collection Container Standard drainage bag/container 05/23/24 08 Securement Method Securing device (Describe) 05/23/24 08 Tamper Evident Seal Intact Yes 05/23/24 08 Reason for Continuing Strict I&O in critically ill patient 05/23/24 08 Urine Color Jaya 05/22/24 2300 Urine Appearance Hazy 05/22/24 2300 Output (mL) 450 mL 05/23/24 0800 I/O last 3 completed shifts: In: 3675.8 [I.V.:1848.9; IV Piggyback:1826.9] Out: 1930 [Urine:1930] I/O this shift: In: - Out: 450 [Urine:450] cefTRIAXone (ROCEPHIN) IV, 2,000 mg, intravenous, Q24H gabapentin, 100 mg, oral, TID heparin (porcine), 5,000 Units, subcutaneous, Q8H OSVALDO norepinephrine, 0.01-0.2 mcg/kg/min, Last Rate: Stopped (05/22/24 0054) vasopressin (PITRESSIN) 40 Units in sodium chloride 0.9 % 40 mL (1 Units/mL) infusion, 0.04 Units/min, Last Rate: Stopped (05/22/24 0302) [] Attestation signed by 10:42 AM PULMONARY/CRITICAL CARE ATTENDING ATTESTATION I have personally performed a face to face evaluation of this patient independently of the FATIMAH. I have reviewed and discussed the assessment findings and plan as documented in the note I have reviewed lab and imaging data independently. My additional findings and orders are as follows: Septic shock treated for sepsis and E coli bacteremia has improved and currently off pressors Acute kidney injury has improved Lactic acidosis has resolved Thrombocytopenia has improved Out of bed to chair Continue with ceftriaxone Physical therapist Awaiting a bed out of the ICU Discussed with the patient at the bedside Ryan Benitez MD [facility] Pulmonary / Critical Care Pager: [phone] Office : [phone] Fax : [phone] This note was created with the assistance of a speech-recognition program. Although the intention is to generate a document that actually reflects the content of the visit, no guarantees can be provided that every mistake has been identified and corrected by editing. STEPHEN Krueger 05/23/24 1014 * Suzanne Reagan, DO - 05/22/2024 10:32 AM EDT Images from the original note were not included. Jr. Copeland Emmett, M.D., Jr. Michelle, Jass Pimentel., Marco Swanson M.D., Aleksandra Sandoval M.D., Sd Silverman M.D., Taisha Childs M.D., Angella Segovia M.D., Bryan Wong M.D., Tom Raymundo M.D., Esme Chen M.D. Hospital day: 1 Chief Complaint: Sepsis secondary to left distal obstructing ureteral stone status post left perc tube placement Subjective: No acute events overnight Afebrile, vital signs improved No longer requiring any pressors Left nephrostomy tube 270 cc overnight clear light pink Guevara 580 cc overnight jaya Weight: (!) 150 kg (330 lb 11 oz) Patient Vitals for the past 24 hrs: BP Temp Temp src Pulse Resp SpO2 Height Weight 05/22/24 1000 128/72 -- -- 75 (!) 33 94 % -- -- 05/22/24 0913 134/76 -- -- 73 (!) 26 97 % -- -- 05/22/24 0900 124/80 -- -- 76 23 97 % -- -- 05/22/24 0800 -- 36.6 C (97.8 F) Oral 77 21 98 % -- -- 05/22/24 0719 -- -- -- 74 19 97 % -- -- 05/22/24 0700 -- -- -- 75 22 97 % -- -- 05/22/24 0600 -- -- -- 70 22 99 % -- -- 05/22/24 0500 -- -- -- 75 21 99 % -- -- 05/22/24 0415 -- -- -- 79 25 98 % -- -- 05/22/24 0400 -- 37.1 C (98.7 F) Oral 77 22 98 % -- -- 05/22/24 0300 -- -- -- 75 20 99 % -- (!) 150 kg (330 lb 11 oz) 05/22/24 0200 -- -- -- 76 (!) 30 97 % -- -- 05/22/24 0120 -- -- -- 76 24 98 % -- -- 05/22/24 0100 -- -- -- 77 (!) 39 97 % -- -- 05/22/24 0059 106/63 -- -- 74 (!) 31 98 % -- -- 05/22/24 0000 -- -- -- 79 24 96 % -- -- 05/21/24 2300 -- 37.1 C (98.8 F) Axillary 77 (!) 29 95 % -- -- 05/21/242206 -- -- -- 81 (!) 34 96 % -- -- 05/21/242199 -- -- -- 81 (!) 34 98 % -- -- 05/21/242124 -- -- -- 79 24 95 % -- -- 05/21/242099 -- -- -- 84 (!) 30 95 % -- -- 05/21/241999 -- 37.1 C (98.7 F) Oral 89 (!) 40 93 % -- -- 05/21/24 1900 -- -- -- 91 (!) 44 94 % -- -- 05/21/24 1806 -- -- -- -- -- -- 172.7 cm (5' 8 ) -- 05/21/24 1800 -- -- -- 97 (!) 39 93 % -- -- 05/21/24 1749 -- -- -- 99 18 93 % -- -- 05/21/24 1700 -- -- -- 94 (!) 39 94 % -- -- 05/21/24 1640 (!) 98/37 -- -- 101 14 95 % -- -- 05/21/24 1635 105/51 -- -- 101 14 95 % -- -- 05/21/24 1630 110/54 -- -- 99 14 94 % -- -- 05/21/24 1625 104/54 -- -- 100 14 93 % -- -- 05/21/24 1620 106/48 -- -- 99 (!) 30 94 % -- -- 05/21/24 1615 116/50 -- -- 102 (!) 37 95 % -- -- 05/21/24 1610 115/60 -- -- 102 (!) 35 97 % -- -- 05/21/24 1605 109/51 -- -- 100 (!) 34 96 % -- -- 05/21/24 1558 123/52 -- -- 104 23 95 % -- -- 05/21/24 1514 -- -- -- 99 25 95 % -- -- 05/21/24 1500 -- -- -- 101 22 95 % -- -- 05/21/24 1442 -- -- -- 100 (!) 38 95 % -- -- 05/21/24 1426 -- -- -- 102 (!) 32 94 % -- -- 05/21/24 1425 -- -- -- 103 (!) 29 94 % -- -- 05/21/24 1300 97/63 37.1 C (98.7 F) Oral -- -- 91 % -- -- 05/21/24 1200 -- -- -- -- -- -- 172.7 cm (5' 8 ) (!) 147 kg (324 lb) Intake/Output Summary (Last 24 hours) at 05/22/2024 1032 Last data filed at 05/22/2024 0929 Gross per 24 hour Intake 4221.24 ml Output 1020 ml Net 3201.24 ml Results from last 7 days Lab Units 05/22/24 0200 05/21/24 2045 05/21/24 1320 05/21/24 1310 POTASSIUM mmol/L 4.2 3.8 -- 3.1* CHLORIDE mmol/L 104 -- -- 101 CO2 mmol/L 20* -- -- 22 BUN mg/dL 28* -- -- 21 CREATININE mg/dL 1.53* -- -- 1.50* BEDSIDE GLUCOSE -- -- < > -- GLUCOSE mg/dL 116* -- -- 110* CALCIUM mg/dL 7.8* -- -- 8.1* < > = values in this interval not displayed. Results from last 7 days Lab Units 05/22/24 0200 05/21/24 1310 WBC X10E9/L 28.1* 15.8* HEMOGLOBIN g/dL 10.6* 11.6* HEMATOCRIT % 31.3* 34.6* PLATELETS X10E9/L 60* 63* Lab Results Component Value Date SPECIFICGRA 1.035 05/21/2024 LEUKOCYTE Large (A) 05/21/2024 GLU 116 (H) 05/22/2024 UROBILINOGEN <1.1 05/21/2024 Additional Lab/culture results: 2/2 blood cultures growing E coli sensitivities pending Urine culture pending Physical Exam: General appearance: No acute distress, awake HEENT: Normocephalic, atraumatic, neck supple without masses, EOMI Cardiovascular: Acyanotic, peripheral pulses palpable Respiratory: Nonlabored breathing on room air Abdomen: Soft, nontender, nondistended, non-peritonitic : No suprapubic tenderness, no flank pain, left nephrostomy tube in place draining clear light pink urine, Guevara in place draining jaya urine Skin: Warm and dry Extremities: No peripheral edema Psych: Normal mood and mentation Interval Imaging Findings: None Impression: 68-year-old female with sepsis secondary to left distal obstructing ureteral stone status post left percutaneous nephrostomy tube placement 05/21/2024 Plan: Maintain left nephrostomy tube to dependent drainage 2/2 blood cultures growing E coli, awaiting sensitivities Continue Zosyn Patient will eventually need stone treatment, but will have to receive adequate antibiotic treatment beforehand Discussed with the patient, she may return to Dr. Dorsey or proceed with stone treatment with her medical Urology, whichever she prefers Maintain Guevara catheter for now Suzanne Reagan DO PGY-5 10:32 AM 05/22/2024 Cosigned by Esme Chen MD at 05/22/2024 5:17 PM EDT Associated attestation - Esme Chen MD - 05/22/2024 5:17 PM EDT Attending Attestation: I have seen and evaluated the patient and have also reviewed the history above. I have repeated thekey portions of the physical exam and concur with the resident's findings. I have reviewed all laboratory findings and imaging reports/films. I agree with the plan as noted above with additions/exceptions noted below (GC modifier): Additional Notes/Findings: Continue supportive care. Outpatient stone treatment. * Ryan Benitez MD - 05/22/2024 8:31 AM EDT Images from the original note were not included. Patient - Sharri Murillo Age - 68 y.o. - 1955 Date of Admission - 05/21/2024 12:52 PM ASSESSMENT 1. Septic shock due to urosepsis and E coli bacteremia has improved. Currently off pressors 2. Obstructive uropathy status post percutaneous drainage 3. E coli bacteremia 4. Acute kidney injury due to above has improved 5. Acute respiratory failure due to sepsis has improved 6. Thrombocytopenia in the setting of severe sepsis 7. Lactic acidosis has resolved PLAN Clinically improved Discontinue IV stress dose of steroids Discontinue IV fluids May require diuresis Out of bed to chair Wean oxygen down as tolerated Monitor urine output Switch antibiotic to ceftriaxone Can transfer later to floor if continued to be stable Discussed with the patient and family at the bedside SUBJECTIVE Overnight events reviewed Feeling better. Off pressors VITALS height is 172.7 cm (5' 8 ) and weight is 150 kg (330 lb 11 oz) (abnormal). Her temperature is 36.6 C (97.8 F). Her blood pressure is 106/63 and her pulse is 77. Her respiration is 21 and oxygen saturation is 98%. Temperature Range: Temp (24hrs), Av.9 C (98.5 F), Min:36.6 C (97.8 F), Max:37.1 C (98.8 F) BP Range: Systolic (24hrs), Av , Min:97 , Max:123 Pulse Range: Pulse Av.4 Min: 70 Max: 104 Respiration Range: Resp Av.4 Min: 14 Max: 44 Current Pulse Ox: Temp: 36.6 C (97.8 F) 24HR Pulse Ox Range: Temp Av.9 C (98.5 F) Min: 36.6 C (97.8 F) Max: 37.1 C (98.8 F) Oxygen Amount and Delivery: O2 Device: Nasal cannula O2 Flow Rate (L/min): 4 L/min Wt Readings from Last 3 Encounters: 05/22/24 (!) 150 kg (330 lb 11 oz) I/O (24 Hours) Intake/Output Summary (Last 24 hours) at 05/22/2024 0831 Last data filed at 05/22/2024 0820 Gross per 24 hour Intake 4221.24 ml Output 960 ml Net 3261.24 ml Exam Physical Exam Awake alert oriented Comfortable no distress Comfortable no distress no tachypnea or tachycardia Heart rate is regular Good air entry bilateral No wheezing or crackles Soft abdomen Left-sided drain Lower extremity edema Meds Medications Reviewed. Lab Results Recent Results (from the past 24 hours) Comprehensive metabolic panel Collection Time: 05/21/24 1:10 PM Result Value Ref Range Sodium 137 134 - 146 mmol/L Potassium, Bld 3.1 (L) 3.5 - 5.0 mmol/L Chloride 101 98 - 109 mmol/L CO2 22 22 - 32 mmol/L Anion gap 14 5 - 15 mmol/L BUN 21 5 - 27 mg/dL Creatinine 1.50 (H) 0.40 - 1.00 mg/dL Glucose 110 (H) 65 - 99 mg/dL Calcium 8.1 (L) 8.5 - 10.5 mg/dL Total Protein 5.8 (L) 6.0 - 8.0 g/dL Albumin 2.8 (L) 3.2 - 5.3 g/dL Alkaline Phosphatase 242 (H) 39 - 130 U/L AST 189 (H) 0 - 41 U/L ALT 95 (H) 0 - 31 U/L Total bilirubin 1.0 0.3 - 1.2 mg/dL eGFR (CKD-EPI)non-race dependent 38 (L) >59 ml/min/1.73sq.m Magnesium Collection Time: 05/21/24 1:10 PM Result Value Ref Range Magnesium 1.1 (L) 1.8 - 2.6 mg/dL Phosphorus Collection Time: 05/21/24 1:10 PM Result Value Ref Range Phosphorus 2.8 2.4 - 4.9 mg/dL CBC auto differential Collection Time: 05/21/24 1:10 PM Result Value Ref Range White Blood Cells 15.8 (H) 4.0 - 11.0 X10E9/L RBC count 3.90 3.80 - 5.20 X10E12/L Hemoglobin 11.6 (L) 11.7 - 15.5 g/dL Hematocrit 34.6 (L) 35 - 47 % MCV 89 80 - 100 fL MCH 29.7 27 - 34 pg MCHC 33.5 32 - 36 g/dL RDW 15.3 (H) 11.5 - 15.0 % Platelets 63 (L) 150 - 450 X10E9/L MPV 7.8 7 - 12 fL Metamyelocyte 6.0 % Band 37.0 % Seg neutrophil 53.0 % Lymphocyte 1.0 % Monocytes 3.0 % Neutrophils Absolute (M) 14.2 (H) 1.5 - 6.6 X10E9/L Lymphocytes Absolute 0.2 (L) 1.0 - 3.5 X10E9/L Monocytes Absolute 0.5 0 - 0.9 X10E9/L RBC Morphology NORMAL Procalcitonin Collection Time: 05/21/24 1:10 PM Result Value Ref Range Procalcitonin 463.36 (H) <0.05 ng/mL Protime & INR Collection Time: 05/21/24 1:10 PM Result Value Ref Range Protime 14.1 (H) 9.8 - 13.2 sec Inr 1.2 (H) 0.8 - 1.1 APTT Collection Time: 05/21/24 1:10 PM Result Value Ref Range aPTT 29 26 - 37 sec Bedside Glucose *Place/Obtain serum glucose if >500(>600 MRH) per glucometer. Collection Time: 05/21/24 1:20 PM Result Value Ref Range Bedside glucose 114 (H) 65 - 99 mg/dL Blood culture #1 Collection Time: 05/21/24 3:20 PM Specimen: Blood Result Value Ref Range Culture GRAM NEGATIVE RODS (A) Culture CULTURE IN PROGRESS Culture Escherichia coli detected by PCR. (A) Culture No resistance genes detected by PCR. Blood culture #2 Collection Time: 05/21/24 3:23 PM Specimen: Blood Result Value Ref Range Culture GRAM NEGATIVE RODS Culture CULTURE IN PROGRESS Lactate w/ Reflex Collection Time: 05/21/24 3:28 PM Result Value Ref Range Lactate w/ Reflex 2.3 (H) 0.4 - 2.0 mmol/L Urinalysis Collection Time: 05/21/24 4:30 PM Result Value Ref Range Color BROWN (A) YELLOW^YELLOW Turbidity CLOUDY (A) CLEAR^CLEAR Specific gravity 1.035 1.003 - 1.035 Nitrite Negative Negative^Negative Ph urine 7.0 5.0 - 8.5 Leukocyte esterase Large (A) Negative^Negative Protein 300 (A) Negative^Negative mg/dL Glucose, Ur Negative Negative^Negative mg/dL Ketones urine Negative Negative^Negative mg/dL Urobilinogen <1.1 <1.1 eu/dL Bilirubin, urine Negative Negative^Negative Hemoglobin MODERATE (A) Negative^Negative Microspopic Urine URINE RECEIVED WITHOUT PRESERVATIVE-DELAYS IN TRANSPORT MAY AFFECT RESULTS.INTERPRET WITH CAUTION AND CLINICAL CORRELATION IS RECOMMENDED. RBC >720 (H) 0 - 5 /hpf WBC clumps MANY (A) NONE^NONE WBC >720 (H) 0 - 5 /hpf Lactate w/ Reflex Collection Time: 05/21/24 8:45 PM Result Value Ref Range Lactate w/ Reflex 2.4 (H) 0.4 - 2.0 mmol/L Potassium Collection Time: 05/21/24 8:45 PM Result Value Ref Range Potassium, Bld 3.8 3.5 - 5.0 mmol/L Comprehensive metabolic panel Collection Time: 05/22/24 2:00 AM Result Value Ref Range Sodium 139 134 - 146 mmol/L Potassium, Bld 4.2 3.5 - 5.0 mmol/L Chloride 104 98 - 109 mmol/L CO2 20 (L) 22 - 32 mmol/L Anion gap 15 5 - 15 mmol/L BUN 28 (H) 5 - 27 mg/dL Creatinine 1.53 (H) 0.40 - 1.00 mg/dL Glucose 116 (H) 65 - 99 mg/dL Calcium 7.8 (L) 8.5 - 10.5 mg/dL Total Protein 5.7 (L) 6.0 - 8.0 g/dL Albumin 2.9 (L) 3.2 - 5.3 g/dL Alkaline Phosphatase 202 (H) 39 - 130 U/L AST 90 (H) 0 - 41 U/L ALT 79 (H) 0 - 31 U/L Total bilirubin 1.1 0.3 - 1.2 mg/dL eGFR (CKD-EPI)non-race dependent 37 (L) >59 ml/min/1.73sq.m Magnesium Collection Time: 05/22/24 2:00 AM Result Value Ref Range Magnesium 1.8 1.8 - 2.6 mg/dL Phosphorus Collection Time: 05/22/24 2:00 AM Result Value Ref Range Phosphorus 4.7 2.4 - 4.9 mg/dL CBC auto differential Collection Time: 05/22/24 2:00 AM Result Value Ref Range White Blood Cells 28.1 (H) 4.0 - 11.0 X10E9/L RBC count 3.55 (L) 3.80 - 5.20 X10E12/L Hemoglobin 10.6 (L) 11.7 - 15.5 g/dL Hematocrit 31.3 (L) 35 - 47 % MCV 88 80 - 100 fL MCH 29.8 27 - 34 pg MCHC 33.7 32 - 36 g/dL RDW 14.9 11.5 - 15.0 % Platelets 60 (L) 150 - 450 X10E9/L MPV 8.3 7 - 12 fL Myelocyte 3.0 % Metamyelocyte 5.0 % Band 35.0 % Seg neutrophil 51.0 % Lymphocyte 4.0 % Monocytes 2.0 % Neutrophils Absolute (M) 24.2 (H) 1.5 - 6.6 X10E9/L Lymphocytes Absolute 1.1 1.0 - 3.5 X10E9/L Monocytes Absolute 0.6 0 - 0.9 X10E9/L Dohle Bodies 1+ (A) NONE^NONE Procalcitonin Collection Time: 05/22/24 2:00 AM Result Value Ref Range Procalcitonin 424.58 (H) <0.05 ng/mL Ionized magnesium Collection Time: 05/22/24 2:00 AM Result Value Ref Range Magnesium, ionized 0.54 0.45 - 0.74 mmol/L Ionized calcium Collection Time: 05/22/24 2:00 AM Result Value Ref Range Calcium, ionized 4.4 (L) 4.5 - 5.3 mg/dL Lactate w/ Reflex Collection Time: 05/22/24 2:45 AM Result Value Ref Range Lactate w/ Reflex 1.6 0.4 - 2.0 mmol/L Microbiology Results Procedure Component Value Units Date/Time Urine culture [[id number]] Collected: 05/21/241802 Specimen: Urine Updated: 05/21/241802 Blood culture #2 [[id number]] Collected: 05/21/24 1523 Specimen: Blood Updated: 05/22/24 0609 Culture GRAM NEGATIVE RODS CULTURE IN PROGRESS Blood culture #1 [[id number]] (Abnormal) Collected: 05/21/24 152 Specimen: Blood Updated: 05/22/24 0608 Culture GRAM NEGATIVE RODS CULTURE IN PROGRESS Escherichia coli detected by PCR. No resistance genes detected by PCR. Lab Results Component Value Date INR 1.2 (H) 05/21/2024 PROTIME 14.1 (H) 05/21/2024 Radiology (See actual reports for details) Ryan Benitez MD [facility] Pul[facility] Sleep Pulmonary / Critical Care Pager: [phone] Office : [phone] Fax : [phone] 48:31 AM * Lance Bell RPH - 05/21/2024 3:24 PM EDT [facility] Department of Pharmacy Pharmacy-Physician Communication Pt name: Sharri Murillo Room: A905/[address] Ryan Benitez MD Your patient is currently taking the medication famotidine, which is primarily excreted renally. From your patient s renal function: Results from last 7 days Lab Units 05/21/24 1310 CREATININE mg/dL 1.50* Estimated Creatinine Clearance: 37.2 mL/min (A) (by C-G formula based on SCr of 1.5 mg/dL (H)). Famotidine regimen was renally-adjusted per [facility] policy Thank you for your consideration. If we can offer more assistance, please fee free to call us at [phone]. Lance Bell PharmD, [facility] * Lance Bell RPH - 05/21/2024 3:20 PM EDT [facility] Department of Pharmacy Pharmacy-Physician Communication Pt name: Sharri Murillo Room: Dear Dr. Ryan Benitez MD Your patient is currently taking the medication Zosyn, which is primarily excreted renally. From your patient s renal function: Results from last 7 days Lab Units 05/21/24 1310 CREATININE mg/dL 1.50* Estimated Creatinine Clearance: 37.2 mL/min (A) (by C-G formula based on SCr of 1.5 mg/dL (H)). Zosyn was dosed per [facility] policy Thank you for your consideration. If we can offer more assistance, please fee free to call us at [phone]. Lance Bell, Jammie, [facility] documented in [facility] Plan of care note * Plan of Care - Disha Mckeon RN - 05/26/2024 2:47 PM EST Problem: Pain Goal: Patient goal is pain score less than 4, able to rest, and participant in treatment plan as appropriate Description: INTERVENTIONS: 1. Encourage patient or legal bottling equipment sales representative to report early pain and ask for pain medicine when needed 2. Assess pain using appropriate pain scale and include the scale used when documenting 3. Administer analgesics based on type and severity of pain and evaluate response within appropriate time frame 4. Implement non-pharmacological measures as appropriate and evaluate response 5. Consider cultural and social influences on pain and pain management 6. Notify LIP if interventions ineffective or patient reports new pain 7. Monitor vital signs including pulse ox, end-tidal CO2 based on pain intervention 8. Reassess pain per policy 9. Teach patient or legal bottling equipment sales representative interventions for comforting Outcome: Completed Note: Evaluation of progress towards goal: Goal met Problem: Safety Goal: Patient will be injury free during hospitalization Description: INTERVENTIONS: 1. Assess patient's risk for falls and implement fall prevention plan of care per policy 2. Provide and maintain a safe environment 3. Proper use of double Identifiers 4. Medication administration using the 5 rights 5. Hand hygiene 6. Specimens are labeled at the bedside 7. Instruct patient/ patient bottling equipment sales representative about use of safety devices 8. Include patient/ patient bottling equipment sales representative in decisions related to safety Outcome: Completed Note: Evaluation of progress towards goal: goal met Problem: Infection Goal: Absence of infection during hospitalization Description: Interventions: 1. Assess and monitor for signs and symptoms of infection 2. Monitor lab/diagnostic results 3. Monitor all insertion sites i.e., indwelling lines, tubes and drains 4. Monitor endotracheal (as able) and nasal secretions for changes in amount and color 5. Administer medications as ordered 6. Instruct and encourage patient and family to use good hand hygiene technique 7. Identify and instruct patient/patient bottling equipment sales representative in use of appropriate isolation precautionsfor identified infection/symptoms 8. Provide and discuss with patient/patient bottling equipment sales representative on educational MDRO sheet 9. Encourage and monitor nutritional status daily and consult hardness inspector if indicated 10. Implement neutropenic guidelines as needed 11. Review exposure to history of communicable disease and recent travel history on admission 12. Encourage annual influenza vaccine 13. Encourage pneumonia vaccine Outcome: Completed Note: Evaluation of progress towards goal: goal met Problem: Knowledge Deficit Goal: Patient/patient bottling equipment sales representative demonstrates understanding of disease process, treatment plan,medications, and discharge instructions Description: INTERVENTIONS 1. Complete learning assessment and assess knowledge base 2. Provide teaching at level of understanding 3. Provide teaching via preferred learning method(s) Outcome: Completed Note: Evaluation of progress towards goal: education completed Problem: Discharge Planning Goal: Discharge to post-acute care, other facility, or home with appropriate resources Description: Patient's goal is: INTERVENTIONS 1. Conduct assessment to determine patient/family and health care team treatment goals, and need for post-acute services based on payer coverage, community resources, and patient preferences, and barriers to discharge 2. Coordinate with Social work, Care Navigation, and Utilization Review to arrange appropriate level of services according to patient's needs based on patient preference and payer coverage in collaboration with the physician and health care team 3. Address psychosocial, clinical, and financial barriers to discharge as identified in assessment in conjunction with the patient/family and health care team 4. Consult appropriate ancillary services (i.e.. PT/OT/ST, etc) as needed 5. Communicate with and update the patient/family, physician, and health care team regarding progress on the discharge plan 6. Identify discharge learning needs (meds, wound care, etc). 7. Arrange for needed discharge transportation as appropriate Outcome: Completed Note: Evaluation of progress towards goal: discharge planning completed Problem: Potential for Compromised Skin Integrity Goal: Skin integrity is maintained or improved Description: Patient's goal is: INTERVENTIONS 1. Perform initial skin assessment on admission and as needed 2. Turn patient every 2 hours and PRN 3. Relieve pressure to bony prominences 4. Avoid shearing 5. Keep skin clean and dry 6. Alternate a full bath with partial baths for elderly 7. Apply lotion/moisturizer on skin 8. Monitor patient's hygiene practices 9. Float heels 10. Collaborate with interdisciplinary team and initiate plans and interventions as needed Outcome: Completed Note: Evaluation of progress towards goal: goal met Goal: Patient's nutritional intake is adequate Description: Patient's goal is: INTERVENTIONS 1. Assess and monitor food intake and supplements, patient food preferences, nausea, vomiting, labs, oral cavity (gums, teeth, tongue, mucosa), proper denture fit, and cultural beliefs 2. Monitor for signs of hypoglycemia and hyperglycemia 3. Collaborate with interdisciplinary team and initiate plan and interventions as ordered 4. Monitor patient's weight 5. Assist patient with meals/food selection 6. Assist patient with eating 7. Allow adequate time for meals 8. Provide pleasant environment during mealtime 9. Increase social contact during mealtimes 10. Plan activities to conserve energy 11. Encourage/perform oral hygiene as appropriate 12. Encourage patient to take dietary supplement as ordered 13. Collaborate with clinical hardness inspector 14. Include patient/ patient's bottling equipment sales representative in decisions related to nutrition Outcome: Completed Note: Evaluation of progress towards goal: goal met Problem: Urinary Incontinence Goal: Perineal skin integrity is maintained or improved Description: INTERVENTIONS 1. Assess genitourinary system, perineal skin, labs (urinalysis), and history of incontinence to include past management, aggravating, and alleviating factors 2. Keep skin clean and dry 3. Apply skin protectant 4. Develop skin care regimen 5. Provide privacy when changing patients incontinence device to maintain their dignity 6. Consider placing an indwelling catheter 7. Collaborate with interdisciplinary team and initiate plans and interventions as needed Outcome: Completed Note: Evaluation of progress towards goal: goal met Problem: Moderate - High Risk Fall Score Description: Kenney Fall Score of =/> 25 or indicated by [facility] Rehab Assessment Goal: Patient should be free from fall Description: Interventions: 1. [place] to environment 2. Hourly rounds addressing the 4 P's (Pain, Positioning, Possessions, Potty) 3. Clear area of hazards (spills, clutter, electrical cords, unnecessary equipment) 4. Place equipment (bed & TV controls, call light, phone, urinal) within reach 5. Encourage patient to wear glasses and hearing aides as appropriate 6. Maintain bed in lowest position 7. Lock wheels on bed/wheelchair 8. Provide adequate lighting, including night light 9. Assess need for additional bedding, food/fluids, pain med's prior to sleep/routinely 10. Provide gripper slippers or personal non-skid footwear 11. Teach patient and patient bottling equipment sales representative to maintain environment for safety and engage in all aspects of fall prevention program 12. Remind patient to call for help before getting out of bed 13. Initiate bed/chair/exit alarms supportive devices as appropriate, (chair wedge, no-skid floor mat, raised edge mattress, hip protectors) 14. Locate patient bed assignment for optimal visualization 15. Evaluate and identify Safe Patient Handling Equipment needs 16. Provide supervision when out of bed or chair 17. Utilize gait belt as needed to assist with ambulation 18. Place adaptive equipment (cane, walker) within reach 19. Request patient bottling equipment sales representative bring adaptive equipment/mobility aids from home or obtain and provide as needed 20. Consult pharmacy regarding effects of med's affecting mobility, cognition, and alternatives 21. Obtain physician order for PT if risk factors associated with mobility are present 22. Obtain physician order for OT as appropriate 23. Utilize diversional activities 24. Educate patient and patient bottling equipment sales representative how to maintain a safe environment during visitationtimes (notify nurse prior to leaving bedside) 25. Consider appropriateness of medical or non-medical coding auditor 26. Set up voiding schedule as appropriate (every 2 hours) Outcome: Completed Note: Evaluation of progress towards goal: goal met [employer]11-03-2024 Progress note* Discharge Planning Note - Melissa Jones - 05/26/2024 2:11 PM EST DISCHARGE PLANNING NOTE CRF sent to [address]- [place] (P# ; F# ); [place]er[place] (P#[phone] ; F# [phone]) use [facility] office and [facility], [facility] [employer]- [place], [place] [facility] - (P# ; F# ) [employer]11-03-2024 Progress note* Discharge Planning Note - Sakina Wooten RN - 05/26/2024 1:59 PM EST DISCHARGE PLANNING NOTE Patient is ready for discharge. Tasked [facility] to send CRF to [address] and [facility]. CN contacted [facility] to confirm patient is discharging today, spoke with Jacey. They will reachout to patient to arrange delivery of medication/supplies. [address] is scheduled for a SOC tomorrow between 12-pm. RN updated. - Sakina Wooten RN 05/26/24 2:01 PM [facility]11-03-2024 Hospital course Narrative* Tabby Iqbal MD - 05/26/2024 1:22 PM EST Images from the original note were not included. DISCHARGE NOTE Demographics: Patient Name: Sharri Murillo : 1955 DATE OF ADMISSION: 05/21/2024 DATE OF DISCHARGE: 05/26/2024 DISCHARGE DIAGNOSES: Principal Problem: Septic shock ([facility]) CONSULTANTS: Consulting Providers Provider Service Specialty Maribel Zepeda MD Z Internal Medicine Infectious Disease PCP: Patient Care Team: Olman Shoemaker MD as PCP - General (Family Medicine) PROCEDURES PERFORMED: Nephrostomy tube placement HOSPITAL COURSE SUMMARY: Per HPI: Sharri Murillo 68-year-old female admitted and treated for following active problems- Septic shock-resolved E coli bacteremia secondary to obstructive uropathy status post nephrostomy tube placement. Blood culture on 05/21 growing E coli. Repeat blood culture 05/23- negative till date. On ceftriaxone with end date 06/04/2024 per ID Outpatient follow-up with Urology for definitive treatment of ureteral stone Acute respiratory failure with hypoxia-resolved. Chest x-ray negative. Currently satting more than 90% on room air TIMBO most likely secondary to septic shock-resolved Thrombocytopenia secondary to sepsis-improving Normocytic anemia-hemoglobin 11.5. 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 Exam: BP 124/77 Pulse 82 Temp 36.6 C (97.9 F) (Oral) Resp 18 Ht 172.7 cm (5' 8 ) Wt (!) 146.9 kg (323 lb 13.7 oz) SpO2 96% BMI 49.24 kg/m Intake/Output Summary (Last 24 hours) at 05/26/2024 1327 Last data filed at 05/26/2024 1204 Gross per 24 hour Intake 1270 ml Output 3485 ml Net -2215 ml General appearance: alert, appears stated age, and cooperative Lungs: clear to auscultation bilaterally Chest wall: no tenderness Heart: regular rate and rhythm, S1, S2 normal, no murmur, click, rub or gallop Abdomen: soft, non-tender; bowel sounds normal; no masses, no organomegaly Extremities: extremities normal, atraumatic, no cyanosis or edema Labs: Recent Results (from the past 48 hours) Potassium Collection Time: 05/24/24 2:33 PM Result Value Ref Range Potassium, Bld 3.9 3.5 - 5.0 mmol/L Ionized magnesium Collection Time: 05/24/24 2:33 PM Result Value Ref Range Magnesium, ionized 0.61 0.45 - 0.74 mmol/L Basic Metabolic Panel Collection Time: 05/25/24 3:21 AM Result Value Ref Range Sodium 141 134 - 146 mmol/L Potassium, Bld 3.7 3.5 - 5.0 mmol/L Chloride 105 98 - 109 mmol/L CO2 26 22 - 32 mmol/L Anion gap 10 5 - 15 mmol/L BUN 26 5 - 27 mg/dL Creatinine 0.79 0.40 - 1.00 mg/dL Glucose 89 65 - 99 mg/dL Calcium 8.9 8.5 - 10.5 mg/dL eGFR (CKD-EPI)non-race dependent 82 >59 ml/min/1.73sq.m CBC auto differential Collection Time: 05/25/24 3:21 AM Result Value Ref Range White Blood Cells 14.6 (H) 4.0 - 11.0 X10E9/L RBC count 4.49 3.80 - 5.20 X10E12/L Hemoglobin 13.6 11.7 - 15.5 g/dL Hematocrit 39.5 35 - 47 % MCV 88 80 - 100 fL MCH 30.2 27 - 34 pg MCHC 34.3 32 - 36 g/dL RDW 15.4 (H) 11.5 - 15.0 % Platelets 130 (L) 150 - 450 X10E9/L MPV 8.3 7 - 12 fL % neutrophils 71.3 % % lymphocytes 21.7 % % monocytes 5.1 % % eosinophils 1.6 % % Basophils 0.3 % Neutrophils Absolute (A) 10.4 (H) 1.5 - 6.6 X10E9/L Lymphocytes Absolute 3.2 1.0 - 3.5 X10E9/L Monocytes Absolute 0.7 0 - 0.9 X10E9/L Eosinophils Absolute 0.2 0.0 - 0.4 X10E9/L Basophils Absolute 0.0 0.0 - 0.2 X10E9/L Magnesium Collection Time: 05/25/24 3:21 AM Result Value Ref Range Magnesium 1.8 1.8 - 2.6 mg/dL Ionized calcium Collection Time: 05/25/24 3:21 AM Result Value Ref Range Calcium, ionized 4.8 4.5 - 5.3 mg/dL Ionized magnesium Collection Time: 05/25/24 1:45 PM Result Value Ref Range Magnesium, ionized 0.56 0.45 - 0.74 mmol/L Potassium Collection Time: 05/25/24 1:45 PM Result Value Ref Range Potassium, Bld 3.9 3.5 - 5.0 mmol/L Basic Metabolic Panel Collection Time: 05/26/24 3:02 AM Result Value Ref Range Sodium 138 134 - 146 mmol/L Potassium, Bld 4.4 3.5 - 5.0 mmol/L Chloride 104 98 - 109 mmol/L CO2 26 22 - 32 mmol/L Anion gap 8 5 - 15 mmol/L BUN 19 5 - 27 mg/dL Creatinine 0.71 0.40 - 1.00 mg/dL Glucose 101 (H) 65 - 99 mg/dL Calcium 8.2 (L) 8.5 - 10.5 mg/dL eGFR (CKD-EPI)non-race dependent >90 >59 ml/min/1.73sq.m CBC auto differential Collection Time: 05/26/24 3:02 AM Result Value Ref Range White Blood Cells 9.8 4.0 - 11.0 X10E9/L RBC count 4.01 3.80 - 5.20 X10E12/L Hemoglobin 12.2 11.7 - 15.5 g/dL Hematocrit 35.1 35 - 47 % MCV 88 80 - 100 fL MCH 30.3 27 - 34 pg MCHC 34.6 32 - 36 g/dL RDW 15.0 11.5 - 15.0 % Platelets 137 (L) 150 - 450 X10E9/L MPV 8.4 7 - 12 fL Myelocyte 1.0 % Seg neutrophil 51.0 % Lymphocyte 39.4 % Monocytes 3.8 % Eosinophil 4.8 % Neutrophils Absolute (M) 5.0 1.5 - 6.6 X10E9/L Lymphocytes Absolute 3.9 (H) 1.0 - 3.5 X10E9/L Monocytes Absolute 0.4 0 - 0.9 X10E9/L Eosinophils Absolute 0.5 (H) 0.0 - 0.4 X10E9/L RBC Morphology NORMAL Magnesium Collection Time: 05/26/24 3:02 AM Result Value Ref Range Magnesium 1.8 1.8 - 2.6 mg/dL Discharge Medications Your medication list START taking these medications Instructions Last Dose Given Next Dose Due cefTRIAXone 2,000 mg in sodium chloride 0.9 % 50 mL IVPB MINI-BAG Plus Infuse 2,000 mg into a venous catheter daily for 11 days. WBC, platelet, creatinine, LFT weekly while on antibiotic, faxed to ID at [phone]. IV flushes as per protocol gabapentin 100 mg capsule Commonly known as: NEURONTIN Take 1 capsule (100 mg total) by mouth 3 (three) times a day for 10 days. valACYclovir 500 mg tablet Commonly known as: VALTREX Take 1 tablet (500 mg total) by mouth in the morning and 1 tablet (500 mg total) before bedtime. Doall this for 7 days. CONTINUE taking these medications Instructions Last Dose Given Next Dose Due ascorbic acid (vitamin C) 1000 mg tablet Commonly known as: VITAMIN C aspirin 81 mg chewable tablet cholecalciferol (vitamin D3) 2,000 units tablet fesoterodine 8 mg tablet extended release 24 hr Commonly known as: TOVIAZ hydroCHLOROthiazide 25 mg tablet Commonly known as: HYDRODIURIL meloxicam 15 mg tablet Commonly known as: MOBIC wxbynfmi-qekj-OP-calcium &mins 9 mg iron-400 mcg tablet Commonly known as: THERAGRAN-M MYRBETRIQ 50 mg tablet extended release 24 hr Generic drug: mirabegron nitrofurantoin 100 mg capsule Commonly known as: MACRODANTIN SUMAtriptan 25 mg tablet Commonly known as: IMITREX Where to Get Your Medications These medications were sent to [facility]/pharmacy #[id number] AT CORNER OF [address] [address] gabapentin 100 mg capsule valACYclovir 500 mg tablet You can get these medications from any pharmacy Bring a paper prescription for each of these medications cefTRIAXone 2,000 mg in sodium chloride 0.9 % 50 mL IVPB MINI-BAG Plus Imaging:. IR percutaneous placement nephrostomy tube left Result Date: 05/21/2024 Narrative: EXAM: Image guided percutaneous nephrostomy tube placement, left CLINICAL HISTORY: 68-year-old female with obstructing left ureterovesicular stone in concern for urosepsis presents for percutaneous nephrostomy tube placement. STAFF: Dr. Den Thompson ANESTHESIA: Moderate sedation with Versed 2 mg and Fentanyl 100 mcg IV; A qualified, independent radiology nurse monitored the patient's cardiovascular status during the procedure. 1% Lidocaine used as local anesthetic. Sedation timewas 30 minutes. Total fluoroscopy time= minutes Reference Air Kerma = mGy Total saved images: 2 fluoroscopy, 1 ultrasound TECHNIQUE: Informed written and verbal consent was obtained following discussion of procedure and risks. All questions were answered. Final verification was performed. Patient was placed on the table prone. The left flank was prepared and draped in usual sterile fashion. Limited ultrasound demonstrates moderate hydronephrosis. A skin entry site was marked, 1% lidocaine was used for local anesthesia. Access to a posterior inferior calyx was obtained utilizing a 21-gauge needle under real-time ultrasound guidance. This was confirmed with return of clear urine, contrast injection demonstrates opacification of the collecting system. Using the AccuStick introducer set, the system was upsized to accommodate an 035 Amplatz wire. The tract was then dilated to accommodate a 10 [place] nephrostomy tube. The catheter was secured with a single 0 Prolene suture. Dressing applied. Patient tolerated all procedures well and there were no complications. FINDINGS: Severe left hydron ephrosis, fluoroscopic images demonstrated appropriate positioning of nephrostomy tube within the collecting system IMPRESSION: Successful image guided placement of left 10 [place]ar[place]uan percutaneous nephrostomy tube PLAN: Maintained to gravity drainage Follow-up urine culture Routine catheter exchange should be performed in 6-8 weeks pending definitive urologic management Finalizedby Den Thompson MD on 05/21/2024 5:07 PM X-ray chest 1 view Result Date: 05/21/2024 Narrative: Single view chest XR CHEST 1 VW History: central venous line placement verification Comparison: May 21 at 4:24 AM current examination 2:20 PM Impression: * No consolidation or pleural fluid. No acute findings. * Central line placed at the superior vena cava. Poor inspiration without acute disease. No pneumothorax. Finalized by Jorge Mcdaniels MD on 05/21/2024 2:30PM DISCHARGE INSTRUCTION: Disposition: Discharge to Home with homecare Condition:Stable Activity: activity as tolerated Diet: Adult diet Regular Texture Adult diet Follow up: Esme Chne MD [address] [facility] [id number] Follow up Follow with your original urologist to schedule stone treatment, if you desire you may schedule your procedure with [facility] if your urologist is not able to complete the procedure Olman Shoemaker MD [facility] [id number] Follow up in 1 week(s) For most accurate medication list, please review the discharge medication summary. 40 minutes were spent on discharging this patient. [facility] Plan of care note * Plan of Care - Delilah Becerra RN - 05/26/2024 2:29 AM EST Problem: Pain Goal: Patient goal is pain score less than 4, able to rest, and participant in treatment plan as appropriate Description: INTERVENTIONS: 1. Encourage patient or legal bottling equipment sales representative to report early pain and ask for pain medicine when needed 2. Assess pain using appropriate pain scale and include the scale used when documenting 3. Administer analgesics based on type and severity of pain and evaluate response within appropriate time frame 4. Implement non-pharmacological measures as appropriate and evaluate response 5. Consider cultural and social influences on pain and pain management 6. Notify LIP if interventions ineffective or patient reports new pain 7. Monitor vital signs including pulse ox, end-tidal CO2 based on pain intervention 8. Reassess pain per policy 9. Teach patient or legal bottling equipment sales representative interventions for comforting Outcome: Progressing Note: Evaluation of progress towards goal: Pt denies pain. Pt has Tylenol 650 mg po every 6 hrs PRNmild pain or Oxycodone 5 mg po every 4 hrs PRN severe pain ordered. Problem: Safety Goal: Patient will be injury free during hospitalization Description: INTERVENTIONS: 1. Assess patient's risk for falls and implement fall prevention plan of care per policy 2. Provide and maintain a safe environment 3. Proper use of double Identifiers 4. Medication administration using the 5 rights 5. Hand hygiene 6. Specimens are labeled at the bedside 7. Instruct patient/ patient bottling equipment sales representative about use of safety devices 8. Include patient/ patient bottling equipment sales representative in decisions related to safety Outcome: Progressing Note: Evaluation of progress towards goal: Pt injury free during stay on 9 Gen ICU. Interventions in place. Problem: Infection Goal: Absence of infection during hospitalization Description: Interventions: 1. Assess and monitor for signs and symptoms of infection 2. Monitor lab/diagnostic results 3. Monitor all insertion sites i.e., indwelling lines, tubes and drains 4. Monitor endotracheal (as able) and nasal secretions for changes in amount and color 5. Administer medications as ordered 6. Instruct and encourage patient and family to use good hand hygiene technique 7. Identify and instruct patient/patient bottling equipment sales representative in use of appropriate isolation precautionsfor identified infection/symptoms 8. Provide and discuss with patient/patient bottling equipment sales representative on educational MDRO sheet 9. Encourage and monitor nutritional status daily and consult hardness inspector if indicated 10. Implement neutropenic guidelines as needed 11. Review exposure to history of communicable disease and recent travel history on admission 12. Encourage annual influenza vaccine 13. Encourage pneumonia vaccine Outcome: Progressing Note: Evaluation of progress towards goal: Pt afebrile. WBCs 14.6. Blood cultures from 05/23 with no growth X 2 days initial blood cultures positive for E.Coli. Pt on Rocephin 2000 mg IVPB every 24 hrs. Started on Valtrex 500 mg po twice per day for cold sores. Problem: Knowledge Deficit Goal: Patient/patient bottling equipment sales representative demonstrates understanding of disease process, treatment plan,medications, and discharge instructions Description: INTERVENTIONS 1. Complete learning assessment and assess knowledge base 2. Provide teaching at level of understanding 3. Provide teaching via preferred learning method(s) Outcome: Progressing Note: Evaluation of progress towards goal: Pt updated on plan of care of pending transfer. Pt awaiting to get home care arrangements fir IV antibiotics. Problem: Discharge Planning Goal: Discharge to post-acute care, other facility, or home with appropriate resources Description: Patient's goal is: INTERVENTIONS 1. Conduct assessment to determine patient/family and health care team treatment goals, and need for post-acute services based on payer coverage, community resources, and patient preferences, and barriers to discharge 2. Coordinate with Social work, Care Navigation, and Utilization Review to arrange appropriate level of services according to patient's needs based on patient preference and payer coverage in collaboration with the physician and health care team 3. Address psychosocial, clinical, and financial barriers to discharge as identified in assessment in conjunction with the patient/family and health care team 4. Consult appropriate ancillary services (i.e.. PT/OT/ST, etc) as needed 5. Communicate with and update the patient/family, physician, and health care team regarding progress on the discharge plan 6. Identify discharge learning needs (meds, wound care, etc). 7. Arrange for needed discharge transportation as appropriate Outcome: Progressing Note: Evaluation of progress towards goal: Pt awaiting for home care service to be set up for IV antibiotics. Problem: Potential for Compromised Skin Integrity Goal: Skin integrity is maintained or improved Description: Patient's goal is: INTERVENTIONS 1. Perform initial skin assessment on admission and as needed 2. Turn patient every 2 hours and PRN 3. Relieve pressure to bony prominences 4. Avoid shearing 5. Keep skin clean and dry 6. Alternate a full bath with partial baths for elderly 7. Apply lotion/moisturizer on skin 8. Monitor patient's hygiene practices 9. Float heels 10. Collaborate with interdisciplinary team and initiate plans and interventions as needed Outcome: Progressing Note: Evaluation of progress towards goal: Skin integrity maintained except for lesions on left lower lip. Pt able to turn self. Goal: Patient's nutritional intake is adequate Description: Patient's goal is: INTERVENTIONS 1. Assess and monitor food intake and supplements, patient food preferences, nausea, vomiting, labs, oral cavity (gums, teeth, tongue, mucosa), proper denture fit, and cultural beliefs 2. Monitor for signs of hypoglycemia and hyperglycemia 3. Collaborate with interdisciplinary team and initiate plan and interventions as ordered 4. Monitor patient's weight 5. Assist patient with meals/food selection 6. Assist patient with eating 7. Allow adequate time for meals 8. Provide pleasant environment during mealtime 9. Increase social contact during mealtimes 10. Plan activities to conserve energy 11. Encourage/perform oral hygiene as appropriate 12. Encourage patient to take dietary supplement as ordered 13. Collaborate with clinical hardness inspector 14. Include patient/ patient's bottling equipment sales representative in decisions related to nutrition Outcome: Progressing Note: Evaluation of progress towards goal: Pt on Regular diet. Problem: Urinary Incontinence Goal: Perineal skin integrity is maintained or improved Description: INTERVENTIONS 1. Assess genitourinary system, perineal skin, labs (urinalysis), and history of incontinence to include past management, aggravating, and alleviating factors 2. Keep skin clean and dry 3. Apply skin protectant 4. Develop skin care regimen 5. Provide privacy when changing patients incontinence device to maintain their dignity 6. Consider placing an indwelling catheter 7. Collaborate with interdisciplinary team and initiate plans and interventions as needed Outcome: Progressing Note: Evaluation of progress towards goal: Perineal skin integrity maintained with CHG wipes for bathing & guevara care. Problem: Moderate - High Risk Fall Score Description: [place] Fall Score of =/> 25 or indicated by [facility] Rehab Assessment Goal: Patient should be free from fall Description: Interventions: 1. [place] to environment 2. Hourly rounds addressing the 4 P's (Pain, Positioning, Possessions, Potty) 3. Clear area of hazards (spills, clutter, electrical cords, unnecessary equipment) 4. Place equipment (bed & TV controls, call light, phone, urinal) within reach 5. Encourage patient to wear glasses and hearing aides as appropriate 6. Maintain bed in lowest position 7. Lock wheels on bed/wheelchair 8. Provide adequate lighting, including night light 9. Assess need for additional bedding, food/fluids, pain med's prior to sleep/routinely 10. Provide gripper slippers or personal non-skid footwear 11. Teach patient and patient bottling equipment sales representative to maintain environment for safety and engage in all aspects of fall prevention program 12. Remind patient to call for help before getting out of bed 13. Initiate bed/chair/exit alarms supportive devices as appropriate, (chair wedge, no-skid floor mat, raised edge mattress, hip protectors) 14. Locate patient bed assignment for optimal visualization 15. Evaluate and identify Safe Patient Handling Equipment needs 16. Provide supervision when out of bed or chair 17. Utilize gait belt as needed to assist with ambulation 18. Place adaptive equipment (cane, walker) within reach 19. Request patient bottling equipment sales representative bring adaptive equipment/mobility aids from home or obtain and provide as needed 20. Consult pharmacy regarding effects of med's affecting mobility, cognition, and alternatives 21. Obtain physician order for PT if risk factors associated with mobility are present 22. Obtain physician order for OT as appropriate 23. Utilize diversional activities 24. Educate patient and patient bottling equipment sales representative how to maintain a safe environment during visitationtimes (notify nurse prior to leaving bedside) 25. Consider appropriateness of medical or non-medical coding auditor 26. Set up voiding schedule as appropriate (every 2 hours) Outcome: Progressing Note: Evaluation of progress towards goal: Pt free from fall with hourly rounding continued & maintained. 4 Ps addressed. [facility]11-02-2024 Plan of care note* Plan of Care - Kimberly Sauceda RN - 05/25/2024 4:22 AM EDT Problem: Pain Goal: Patient goal is pain score less than 4, able to rest, and participant in treatment plan as appropriate Description: INTERVENTIONS: 1. Encourage patient or legal bottling equipment sales representative to report early pain and ask for pain medicine when needed 2. Assess pain using appropriate pain scale and include the scale used when documenting 3. Administer analgesics based on type and severity of pain and evaluate response within appropriate time frame 4. Implement non-pharmacological measures as appropriate and evaluate response 5. Consider cultural and social influences on pain and pain management 6. Notify LIP if interventions ineffective or patient reports new pain 7. Monitor vital signs including pulse ox, end-tidal CO2 based on pain intervention 8. Reassess pain per policy 9. Teach patient or legal bottling equipment sales representative interventions for comforting Outcome: Progressing Note: Evaluation of progress towards goal: Patient denies pain at this time. PRN medications available. Will continue to monitor that patient's pain is managed appropriately. Problem: Safety Goal: Patient will be injury free during hospitalization Description: INTERVENTIONS: 1. Assess patient's risk for falls and implement fall prevention plan of care per policy 2. Provide and maintain a safe environment 3. Proper use of double Identifiers 4. Medication administration using the 5 rights 5. Hand hygiene 6. Specimens are labeled at the bedside 7. Instruct patient/ patient bottling equipment sales representative about use of safety devices 8. Include patient/ patient bottling equipment sales representative in decisions related to safety Outcome: Progressing Note: Evaluation of progress towards goal: Safety precautions put into place and safe environment maintained. Will continue to monitor. Problem: Infection Goal: Absence of infection during hospitalization Description: Interventions: 1. Assess and monitor for signs and symptoms of infection 2. Monitor lab/diagnostic results 3. Monitor all insertion sites i.e., indwelling lines, tubes and drains 4. Monitor endotracheal (as able) and nasal secretions for changes in amount and color 5. Administer medications as ordered 6. Instruct and encourage patient and family to use good hand hygiene technique 7. Identify and instruct patient/patient bottling equipment sales representative in use of appropriate isolation precautionsfor identified infection/symptoms 8. Provide and discuss with patient/patient bottling equipment sales representative on educational MDRO sheet 9. Encourage and monitor nutritional status daily and consult hardness inspector if indicated 10. Implement neutropenic guidelines as needed 11. Review exposure to history of communicable disease and recent travel history on admission 12. Encourage annual influenza vaccine 13. Encourage pneumonia vaccine Outcome: Progressing Note: Evaluation of progress towards goal: Infection prevention measures put into place. Will continue to monitor for signs and symptoms of infection. Problem: Knowledge Deficit Goal: Patient/patient bottling equipment sales representative demonstrates understanding of disease process, treatment plan,medications, and discharge instructions Description: INTERVENTIONS 1. Complete learning assessment and assess knowledge base 2. Provide teaching at level of understanding 3. Provide teaching via preferred learning method(s) Outcome: Progressing Note: Evaluation of progress towards goal: Patient and patient's family at bedside educated on patient's plan of care. Will continue to educate patient and family on any changes made on patient's plan of care. Problem: Discharge Planning Goal: Discharge to post-acute care, other facility, or home with appropriate resources Description: Patient's goal is: INTERVENTIONS 1. Conduct assessment to determine patient/family and health care team treatment goals, and need for post-acute services based on payer coverage, community resources, and patient preferences, and barriers to discharge 2. Coordinate with Social work, Care Navigation, and Utilization Review to arrange appropriate level of services according to patient's needs based on patient preference and payer coverage in collaboration with the physician and health care team 3. Address psychosocial, clinical, and financial barriers to discharge as identified in assessment in conjunction with the patient/family and health care team 4. Consult appropriate ancillary services (i.e.. PT/OT/ST, etc) as needed 5. Communicate with and update the patient/family, physician, and health care team regarding progress on the discharge plan 6. Identify discharge learning needs (meds, wound care, etc). 7. Arrange for needed discharge transportation as appropriate Outcome: Progressing Note: Evaluation of progress towards goal: Discharge planning in process and plans being looked over by charge nurse. [facility] [employer] [id number] Progress note* PT/OT/CERAMIC TILE SETTER - Cristino Hugo, PT - 05/24/2024 2:50 PM EDT Physical Therapy Evaluation Discharge Recommendations PT Recommendations: Home Home Recommendations: Intermittent caregiver support for: (for ADLS/IADLS as needed) Therapy Plan Need for skilled Physical Therapy to address deficits in functional mobility due to a status decline resulting from hospital admission 05/21/24 with fever, chills and general weakness. Pt hypotensive and tachycardic CT A+P - L sided stone with hydronephrosis IR for percutaneous drain, L nephrostomy tube Past Medical History: Diagnosis Date Migraines Septic shock ([facility]) 05/21/2024 Past Surgical History: Procedure Laterality Date INGUINAL HERNIA REPAIR x2 KNEE ARTHROPLASTY Bilateral UMBILICAL HERNIA REPAIR 6 Clicks: Basic Mobility Turning from your back to your side while in a flat bed without using bed rails?: A little Moving from lying on your back to sitting on side of flat bed without using bed rails?: A little Moving to and from bed to a chair (including w/c)?: A little Standing up from a chair using your arms (e.g. w/c or bedside chair)?: A little To walk in hospital room?: A little Climbing 3-5 steps with a railing?: A little Scoring 6 Clicks: Basic Mobility Raw Score: 18 CMS G Code Modifier: CK PT Treatment/Interventions: Functional transfer training, Endurance training, Patient/family training, Equipment eval/education, Balance, Gait training, Functional activities PT Frequency: 4-5days/week PT Duration: LOS Patient Response to Treatment: Tolerated evaluation without adverse reaction Assessment Patient Assessment Therapy Problem List: Decreased balance, Decreased endurance, Decreased mobility, Decreased safe judgement during ADL Patient Response to Treatment: Tolerated evaluation without adverse reaction Mood/Affect: Appropriate for circumstances Rehab Prognosis: Good Visit RN Communication: Yes Medical Record Reviewed: Yes PT Type of Visit: Evaluation Precautions Activity: early mobility pass, ok per MINNIE Lucas Equipment: gait belt, RW, percutaneous drain, guevara Telemetry/Gear Tooth Grinding Machine Operator: Yes Oxygen Used: room air Other: Fall risk Pain Assessment Pain Assessment: No/denies pain Home Living Type of Home: House Home Layout: Two level, Performs ADLs on one level, Able to live on main level with bedroom/bathroom, Laundry in basement Stairs to Enter: 1+1 Hand Rails: None Stairs in Home: FF to basement laundry Hand Rails in Home: None Bathroom Shower/Tub: Tub/shower unit Bathroom Toilet: Standard (with support nearby) Bathroom Equipment: Shower chair, Toilet raiser, Grab bars in shower Bathroom Accessibility: Accessible Home Equipment: Rolling walker Other : pt denied needing DME for mobility prior to admission Prior Function Lives With: Spouse (spouse home 13/02) Receives Help From: Family Level of Mobility: Independent with ADLs and functional transfers or gait Homemaking Assistance: Independent Vocational: Retired Other: no falls ADL / IADL Hand Dominance: Right Hearing / Speech / Vision Hearing: Within Functional Limits Speech: Within Functional Limits Current Vision: Wears glasses all the time Cognition Overall Cognitive Status: Within Functional Limits Orientation Level: Oriented X4 Sensation Overall Sensation Status: Within Functional Limits Bed Mobility Other: pt seated in chair upon therapist's arrival and departure. Lance RN aware of pt's status Transfers Sit to Stand: Standby assist Stand to Sit: Standby assist Other: Verbal cues for safe hand placement with use of RW Gait Base of Support: Wide (due to body habitus) Pattern: Decreased clemente, Forward trunk Gait Assistance: Standby assist Assistive Device: Rolling walker Gait Distance: 160 ft Other: pt ambulates with slower clemente and was mildly SOB with exertion Balance Sitting Balance: Static: Good Sitting Balance: Dynamic: Good Standing Balance: Static: Fair ((+)) Standing Balance: Dynamic: Fair Other: BUE support on Walker for standing/mobility tasks. Able to sit unsupported edge of chair with no major concerns. RUE Assessment: (see OT eval) LUE Assessment: (see OT eval) RLE Assessment: Within Functional Limits LLE Assessment: Within Functional Limits Activity Tolerance Endurance: Tolerates <30 minutes activity WITHOUT vital sign changes Other: mild CHATMAN which seems to be baseline for pt Plan Physical Therapy Care Plan Physical Therapy Care Plan (Active) Template: PT - Physical Therapy Problem: Activity Tolerance Dates: Start: 05/24/24 Disciplines: PT Goal: Tolerate > 30 minutes of activity WITH rest breaks Dates: Start: 05/24/24 Expected End: 06/22/24 Description: To improve overall strength and endurance for functional mobility. : Disciplines: PT Problem: Gait Dates: Start: 05/24/24 Disciplines: PT Goal: Patient will perform gait with Stand By Assist Dates: Start: 05/24/24 Expected End: 06/22/24 Description: With__RW__,__200__feet for safe household ambulation Goal Description: Disciplines: PT Problem: Standing Balance Dates: Start: 05/24/24 Disciplines: PT Goal: Improve balance to good Dates: Start: 05/24/24 Expected End: 06/22/24 Description: With use of AD to reduce fall risk during ambulation Disciplines: PT Problem: Transfers Dates: Start: 05/24/24 Disciplines: PT Goal: Patient will perform transfers with Modified [place] Dates: Start: 05/24/24 Expected End: 06/22/24 Description: Goal Description: Disciplines: PT Physical Therapy Care Plan (Resolved) There are no resolved problems. Principal Problem: Septic shock ([facility] [employer] [id number] Progress note* PT/OT/CERAMIC TILE SETTER - LESVIA Art/Alicia - 05/24/2024 2:35 PM EDT Occupational Therapy Evaluation Discharge Recommendations OT Recommendations : Home Home Recommendations: Intermittent caregiver support for: (IADLS) 6 Clicks: Daily Activity Putting on and taking off regular lower body clothing?: A little Bathing (including washing, rinsing, drying)?: A little Toileting, which includes using toilet, bedpan or urinal?: A little Putting on and taking off regular upper body clothing?: A little Taking care of personal grooming such as brushing teeth?: A little Eating meals?: None Scoring Daily Activity Raw Score: 19 CMS G Code Modifier: CK Therapy Plan Need for skilled Occupational Therapy to address deficits in ADL independence and functional mobility due to a status decline resulting from admit as transfer from [place] on 05/21/24 with fever, chills and general weakness. Pt hypotensive and tachycardic CT A+P - L sided stone with hydronephrosis IR for percutaneous drain, L nephrostomy tube Past Medical History: Diagnosis Date Migraines Septic shock ([facility]) 05/21/2024 Past Surgical History: Procedure Laterality Date INGUINAL HERNIA REPAIR x2 KNEE ARTHROPLASTY Bilateral UMBILICAL HERNIA REPAIR OT Treatment/Interventions: ADL retraining, Functional transfer training, Endurance training, Equipment eval/education, Patient/family training, Balance, Bed mobility, Compensatory technique education, Functional activities OT Frequency: 4-5days/week OT Duration: LOS Assessment Patient Assessment Therapy Problem List: Decreased ADL status, Decreased balance, Decreased endurance, Abnormal posture, Decreased mobility, Decreased safe judgement during ADL, Decreased self-care trans, Decreased high-level ADLs Patient Response to Treatment: Tolerated evaluation without adverse reaction Mood/Affect: Appropriate for circumstances Rehab Prognosis: Good Visit RN Communication: Yes Medical Record Reviewed: Yes OT Type of Visit: Evaluation Precautions Activity: early mobility pass, ok per MINNIE Lucas Equipment: gait belt, RW, percutaneous drain, guevara Telemetry/Gear Tooth Grinding Machine Operator: Yes Oxygen Used: room air Other: Fall risk Pain Assessment Pain Assessment: No/denies pain Home Living Type of Home: House Home Layout: Two level, Performs ADLs on one level, Able to live on main level with bedroom/bathroom, Laundry in basement Stairs to Enter: 1+1 Hand Rails: None Stairs in Home: FF to basement laundry Hand Rails in Home: None Bathroom Shower/Tub: Tub/shower unit Bathroom Toilet: Standard (support nearby) Bathroom Equipment: Shower chair, Toilet raiser, Grab bars in shower (does not use shower chair or riser) Bathroom Accessibility: Accessible Home Equipment: Rolling walker (has walker available to her) Other : Pt not using AD lighter captain. Prior Function Lives With: Spouse (retired and able to assist.) Receives Help From: Family Level of Mobility: Independent with ADLs and functional transfers or gait Homemaking Assistance: Independent Vocational: Retired Other: no falls. ADL / IADL Hand Dominance: Right Eating Assistance: Independent, Setup Grooming Assistance: Contact guard assist (standing) Bathing/Showering Assistance: Min assist, Setup Toilet/Commode Assistance: Total assist (guevara) UE Dressing Assistance: Min assist (to don gown) UE Dressing Deficit: Pull around back LE Dressing Assistance: Min assist Other: Limited in ADL participation due to impaired strength, safety, balance and activity tolerance. Home Management - IADL Other: Limited in ADL participation due to impaired strength, safety, balance and activity tolerance. Hearing / Speech / Vision Hearing: Within Functional Limits Speech: Within Functional Limits Current Vision: Wears glasses all the time Cognition Overall Cognitive Status: Within Functional Limits Orientation Level: Oriented X4 Sensation Overall Sensation Status: Within Functional Limits Bed Mobility Other: NT pt in chair upon arrival and departure with call light in reach. Transfers Sit to Stand: Standby assist Stand to Sit: Standby assist Other: VC for safe hand placement during transfers, use of RW in standing. Gait Pattern: Decreased clemente, Forward trunk Gait Assistance: Standby assist Assistive Device: Rolling walker Gait Distance: 160 ft Other: Pt completed mobility in hallway, no major LOB or path deviation noted. Some mild SOB. Balance Balance Evaluation: Exceptions to Functional Limits Sitting Balance: Static: Good Sitting Balance: Dynamic: Good Standing Balance: Static: Fair (+) Standing Balance: Dynamic: Fair Other: BUE support on Walker for standing/mobility tasks. Able to sit unsupported edge of chair with no major concerns. RUE Assessment: Within Functional Limits LUE Assessment: Within Functional Limits Activity Tolerance Endurance: Tolerates <30 minutes activity WITHOUT vital sign changes Other: Some SOB noted. Pt reports out of bed activity feels good, denies fatigue. Plan Occupational Therapy Care Plan Occupational Therapy Care Plan (Active) Template: OT - Occupational Therapy Problem: Activity Tolerance Dates: Start: 05/24/24 Disciplines: OT Goal: Tolerate 30 minutes of activity WITH rest breaks Dates: Start: 05/24/24 Expected End: 06/14/24 Description: Goal Description: Disciplines: OT Problem: Bed Mobility Dates: Start: 05/24/24 Disciplines: OT Goal: Patient will perform bed mobility Independently Dates: Start: 05/24/24 Expected End: 06/14/24 Description: Goal Description: Disciplines: OT Problem: Functional Mobility Dates: Start: 05/24/24 Disciplines: OT Goal: Patient will perform functional mobility Independently Dates: Start: 05/24/24 Expected End: 06/14/24 Description: Goal Description: Disciplines: OT Problem: Home Management Dates: Start: 05/24/24 Disciplines: OT Goal: Patient will perform home management with Modified [place] Dates: Start: 05/24/24 Expected End: 06/14/24 Description: Goal Description: Disciplines: OT Problem: Other (Customize) Dates: Start: 05/24/24 Disciplines: OT Goal: Improve Dates: Start: 05/24/24 Expected End: 06/14/24 Description: Pt will demo all ADLs mod I/IND using AE/DME/compensatory strategies PRN and good safety. Disciplines: OT Problem: Standing Balance Dates: Start: 05/24/24 Disciplines: OT Goal: Improve balance to good Dates: Start: 05/24/24 Expected End: 06/14/24 Description: Pt will demo good standing balance with use of UE support PRN for 10+ minutes for increased participation in ADLs. Disciplines: OT Problem: Toilet Transfers Dates: Start: 05/24/24 Disciplines: OT Goal: Patient will perform toilet transfers Independently Dates: Start: 05/24/24 Expected End: 06/14/24 Description: Goal Description: Disciplines: OT Problem: Transfers Dates: Start: 05/24/24 Disciplines: OT Goal: Patient will perform transfers Independently Dates: Start: 05/24/24 Expected End: 06/14/24 Description: Goal Description: Disciplines: OT Occupational Therapy Care Plan (Resolved) There are no resolved problems. Principal Problem: Septic shock ([facility]) [facility]11-01-2024 Progress note* Discharge Planning Note - KALINA Sanon - 05/24/2024 12:20 PM EDT DISCHARGE PLANNING NOTE Case discussed in daily transition rounds and chart reviewed by CN. Barriers to discharge include IV ATB, PT/OT Discharge Plan remains: home with home infusion. Patient will require daily IV Rocephin through 06/04. Social work met with patient to to further discuss transition plan. Patient feels that she can return home at discharge and feels comfortable with home infusion- she and are teachable. Social work discussed home care list and patient did not have a preference. Social work task [facility] to send referral to [facility] and social work faxed prescription- wait insurance coverage and [facility]- wait acceptance. Wait PT/OT evaluations and recommendations. CN will continue to follow and is available should any further needs arise. - KALINA SANON 05/24/24 12:[address] [facility] denied referral. Social work sent referral to [facility]. [facility] is not sure if they are available to start services until Monday as they will need insurance approval. Waiting [facility] to inform of start of care on Monday. Social work spoke with [facility] to provide update and they will deliver infusion supplies at discharge. Social work met with patient and to provide update and they are agreeable to transition plan. will transport at discharge. - KALINA SANON 05/24/24 4:02 PM [facility] can start services at 1200 on Monday. - KALINA SANON 05/24/24 4:06 PM [employer]11-01-2024 Progress note* Discharge Planning Note - Giuliana Rodriguez - 05/24/2024 11:52 AM EDT DISCHARGE PLANNING NOTE Referral sent to [facility], [facility] [place], [place] [facility] - (P# ; F# ); [facility] [employer] [place] [place] [facility] - (P# ; F# ) [employer]10-31-2024 Miscellaneous Notes* Telephone Encounter - Esme Chen MD - 05/23/2024 11:02 AM EDT Please schedule patient for cystoscopy with left ureteroscopy, holmium laser lithotripsy with stentplacement, 1.5 hours, [facility] in 4-5 weeks with me with 1 day preadmission for IV antibiotics as well as medicine consultation. Needs urine culture 1 week prior as well. Thank you. Currently admitted to [facility]. [facility] Telephone encounter Note* Telephone Encounter - Esme Chen MD - 05/23/2024 11:02 AM EDT Please schedule patient for cystoscopy with left ureteroscopy, holmium laser lithotripsy with stentplacement, 1.5 hours, [facility] in 4-5 weeks with [place] with 1 day preadmission for IV antibiotics as well as medicine consultation. Needs urine culture 1 week prior as well. Thank you. Currently admitted to [facility]. [email or web address] Work Phone: [phone] Consult note* Maribel Zepeda MD - 05/23/2024 9:00 AM EDTAssociated Order(s): IP CONSULT TO INFECTIOUS DISEASES Images from the original note were not included. [facility] Infectious Diseases - Initial Consult Note Sharri Murillo Admit date/time 05/21/2024 12:52 PM Today's Date and Time: 05/23/2024, 11:31 AM Impression: Sepsis E coli bacteremia Left hydronephrosis/obstructive stone Acute kidney injury Leukocytosis 39.0 Morbid obesity of the disease BMI 49.2 Non STEMI Recommendations Get CT abdomen pelvis official results from [facility] Follow-up culture results from [facility] CT of the abdomen showed left-sided stone with significant hydronephrosis as per H and P note Status post left percutaneous nephrostomy tube placement Preliminary blood culture May 21, 2024 with E coli Repeat blood cultures Urine culture finalized negative Continue ceftriaxone pending repeat cultures Received steroid as well Follow WBC, platelets, creatinine, LFTs WBC: 39.0 Creatinine: 1.47 Monitor temperatures: Afebrile Supportive care Discharge planning as per primary care Reason for consultation: Bacteremia Chief complaint Bacteremia History of Present Illness: Sharri Murillo is a 68 y.o.-year-old female who was initially admitted on 05/21/2024. She originally presented to the emergency center after developing infection then utilized some burning with urination, she was started on Macrobid as per alternate provider outpatient, she reports taking the medication for about 3 days however she progressively became worse. Upon presentation to the emergency centershe was hypotensive and tachycardic, she did briefly require pressors, imaging revealed left side kidney stone with hydronephrosis. Patient is currently awake, alert and oriented, up out of bed to bedside chair, and she is now ableto eat and drink okay without any nausea vomiting or diarrhea, and see no acute signs of distress or discomfort, she does state she still has left flank pain although it is improving yet. I have personally reviewed the past medical history, past surgical history, medications, social history, and family history, and I have updated the database accordingly. Past Medical History: Past Medical History: Diagnosis Date Migraines Septic shock ([facility]) 05/21/2024 Past Surgical History: Past Surgical History: Procedure Laterality Date INGUINAL HERNIA REPAIR x2 KNEE ARTHROPLASTY Bilateral UMBILICAL HERNIA REPAIR Medications: cefTRIAXone (ROCEPHIN) IV, 2,000 mg, intravenous, Q24H gabapentin, 100 mg, oral, TID heparin (porcine), 5,000 Units, subcutaneous, Q8H OSVALDO Social History: Social History Socioeconomic History Marital status: Spouse name: Not on file Number of children: Not on file Years of education: Not on file Highest education level: Not on file Occupational History Not on file Tobacco Use Smoking status: Never Smokeless tobacco: Never Substance and Sexual Activity Alcohol use: Never Drug use: Never Sexual activity: Defer Other Topics Concern Not on file Social History Narrative Not on file Social Drivers of Health Financial Resource Strain: Not on file Food Insecurity: No Food Insecurity (05/21/2024) Hunger Screening Food Insecurity - Worry: Never True Food Insecurity - Inability: Never True Transportation Needs: No Transportation Needs (05/21/2024) PRAPARE - Transportation Lack of Transportation (Medical): No Lack of Transportation (Non-Medical): No Physical Activity: Not on file Stress: Not on file Social Connections: Not on file Interpersonal Safety: Not At Risk (05/21/2024) Humiliation, Afraid, Rape, and Kick questionnaire Fear of Current or Ex-Partner: No Emotionally Abused: No Physically Abused: No Sexually Abused: No Housing Instability: Low Risk (05/21/2024) Housing Instability Housing Instability: No Family History: Family History Problem Relation Age of Onset No Known Problems Mother Cancer Father Allergies: Sulfa (sulfonamide antibiotics) Review of Systems: CONSTITUTIONAL: Fatigue RESPIRATORY: negative CARDIOVASCULAR: negative GASTROINTESTINAL: Nausea vomiting GENITOURINARY: Frequency, pain with urination, left flank pain INTEGUMENT/BREAST: negative HEMATOLOGIC/LYMPHATIC: negative IMMUNOLOGIC: negative ENDOCRINE: negative MUSCULOSKELETAL: negative NEUROLOGICAL: negative BEHAVIOR/PSYCH: negative Physical Examination : BP (!) 107/93 Pulse 80 Temp 36.8 C (98.2 F) (Oral) Resp 24 Ht 172.7 cm (5' 8 ) Wt (!) 150kg (330 lb 11 oz) SpO2 95% BMI 50.28 kg/m Temperature Range: Temp: 36.8 C (98.2 F) Temp Av.6 C (97.8 F) Min: 36.4 C (97.6 F) Max: 36.8 C(98.2 F) CONSTITUTIONAL: awake, alert, cooperative, no apparent distress HEAD; normocephalic atraumatic NECK: supple, no thyroid deformity ENT no external ears deformity LUNGS: No increased work of breathing, no accessory muscle usage, no rhonchi or wheezing CARDIOVASCULAR: regular rate and rhythm ABDOMEN: Obese, normal bowel sounds, soft, non-distended, non-tender MUSCULOSKELETAL:both upper and lower extremities with no redness, warmth, or swelling NEUROLOGIC: Awake, alert, oriented to name, place and time. Follow commands. Cranial nerves grosslyintact SKIN: no rash Medical Decision Making: I have independently reviewed/ordered the following labs: CBC with Differential: Results from last 7 days Lab Units 05/23/24 0258 05/22/24 0200 05/21/24 1310 WBC X10E9/L 39.0* 28.1* 15.8* HEMOGLOBIN g/dL 11.7 10.6* 11.6* HEMATOCRIT % 34.6* 31.3* 34.6* PLATELETS X10E9/L 91* 60* 63* BMP: Results from last 7 days Lab Units 05/23/24 1021 05/23/24 0258 05/22/24 0200 05/21/24 2045 05/21/24 1310 POTASSIUM mmol/L 3.5 3.7 4.2 < > 3.1* CHLORIDE mmol/L -- 103 104 -- 101 CO2 mmol/L -- 20* 20* -- 22 BUN mg/dL -- 41* 28* -- 21 CREATININE mg/dL -- 1.47* 1.53* -- 1.50* EGFR (CKD-EPI)NON-RACE DEPENDENT ml/min/1.73sq.m -- 39* 37* -- 38* CALCIUM mg/dL -- 8.5 7.8* -- 8.1* MAGNESIUM mg/dL -- 2.0 1.8 -- 1.1* < > = values in this interval not displayed. LFTs: Results from last 7 days Lab Units 05/23/24 0258 05/22/24 0200 05/21/24 1310 ALK PHOS U/L 256* 202* 242* ALT U/L 65* 79* 95* AST U/L 48* 90* 189* Vanco: Inflam markers: No results found for: CRP No results found for: SEDRATE Cultures: Microbiology Results Procedure Component Value Units Date/Time Blood culture #1 [[id number]] Resulted: 05/23/24 1021 Specimen: Blood, Peripheral Draw Updated: 05/23/24 1021 Blood culture #2 [[id number]] Resulted: 05/23/24 1021 Specimen: Blood, Peripheral Draw Updated: 05/23/24 1021 Urine culture [[id number]] Collected: 05/21/24 1525 Specimen: Urine from Guevara Catheter Specimen Updated: 05/22/24 1420 Culture <10,000 ORGANISMS/ML NORMAL URO GENITAL ALANNAH Blood culture #2 [[id number]] Collected: 05/21/24 1523 Specimen: Blood Updated: 05/22/24 0609 Culture GRAM NEGATIVE RODS CULTURE IN PROGRESS Blood culture #1 [[id number]] (Abnormal) Collected: 05/21/24 1520 Specimen: Blood Updated: 05/23/24 0918 Culture ESCHERICHIA COLI CULTURE IN PROGRESS Escherichia coli detected by PCR. No resistance genes detected by PCR. Imaging Studies: IR percutaneous placement nephrostomy tube left Result Date: 05/21/2024 Narrative: EXAM: Image guided percutaneous nephrostomy tube placement, left CLINICAL HISTORY: 68-year-old female with obstructing left ureterovesicular stone in concern for urosepsis presents for percutaneous nephrostomy tube placement. STAFF: Dr. Den Thompson ANESTHESIA: Moderate sedation with Versed 2 mg and Fentanyl 100 mcg IV; A qualified, independent radiology nurse monitored the patient's cardiovascular status during the procedure. 1% Lidocaine used as local anesthetic. Sedation timewas 30 minutes. Total fluoroscopy time= minutes Reference Air Kerma = mGy Total saved images: 2 fluoroscopy, 1 ultrasound TECHNIQUE: Informed written and verbal consent was obtained following discussion of procedure and risks. All questions were answered. Final verification was performed. Patient was placed on the table prone. The left flank was prepared and draped in usual sterile fashion. Limited ultrasound demonstrates moderate hydronephrosis. A skin entry site was marked, 1% lidocaine was used for local anesthesia. Access to a posterior inferior calyx was obtained utilizing a 21-gauge needle under real-time ultrasound guidance. This was confirmed with return of clear urine, contrast injection demonstrates opacification of the collecting system. Using the AccuStick introducer set, the system was upsized to accommodate an 035 Amplatz wire. The tract was then dilated to accommodate a 10 Nicaraguan nephrostomy tube. The catheter was secured with a single 0 Prolene suture. Dressing applied. Patient tolerated all procedures well and there were no complications. FINDINGS: Severe left hydron ephrosis, fluoroscopic images demonstrated appropriate positioning of nephrostomy tube within the collecting system IMPRESSION: Successful image guided placement of left 10 Nicaraguan percutaneous nephrostomy tube PLAN: Maintained to gravity drainage Follow-up urine culture Routine catheter exchange should be performed in 6-8 weeks pending definitive urologic management Finalizedby Den Thompson MD on 05/21/2024 5:07 PM X-ray chest 1 view Result Date: 05/21/2024 Narrative: Single view chest XR CHEST 1 VW History: central venous line placement verification Comparison: May 21 at 4:24 AM current examination 2:20 PM Impression: * No consolidation or pleural fluid. No acute findings. * Central line placed at the superior vena cava. Poor inspiration without acute disease. No pneumothorax. Finalized by Jorge Mcdaniels MD on 05/21/2024 2:30PM Thank you for allowing us to participate in the care of this patient. Please call with questions. [facility] Infectious Disease Tammy Boyd APRN, CNP Preferred method of communication between 0700 and 1700 Epic chat If no response to Epic chat within 30 minutes, after 1700, and for urgent matters call [phone], if no answer call [phone] This note was completed using a voice bundle shaker system. Every effort was made to ensure accuracy. However, inadvertent computerized bundle shaker errors may be present. STEPHEN Mills 05/23/24 5622 IMaribel MD, personally performed [id number] diagnostic evaluation on this patient I reviewed and performed all the whitlock component of the patient visit I reviewed FATIMAH history, exam and MDM - Maribel Zepeda MD 05/23/24 2:04 PM [facility]10-31-2024 Consult note* Maribel Zepeda MD - 05/23/2024 9:00 AM EDTAssociated Order(s): IP CONSULT TO INFECTIOUS DISEASES Images from the original note were not included. [facility] Infectious Diseases - Initial Consult Note Sharri Murillo Admit date/time 05/21/2024 12:52 PM Today's Date and Time: 05/23/2024, 11:31 AM Impression: Sepsis E coli bacteremia Left hydronephrosis/obstructive stone Acute kidney injury Leukocytosis 39.0 Morbid obesity of the disease BMI 49.2 Non STEMI Recommendations Get CT abdomen pelvis official results from [facility] Follow-up culture results from [facility] CT of the abdomen showed left-sided stone with significant hydronephrosis as per H and P note Status post left percutaneous nephrostomy tube placement Preliminary blood culture May 21, 2024 with E coli Repeat blood cultures Urine culture finalized negative Continue ceftriaxone pending repeat cultures Received steroid as well Follow WBC, platelets, creatinine, LFTs WBC: 39.0 Creatinine: 1.47 Monitor temperatures: Afebrile Supportive care Discharge planning as per primary care Reason for consultation: Bacteremia Chief complaint Bacteremia History of Present Illness: Sharri Murillo is a 68 y.o.-year-old female who was initially admitted on 05/21/2024. She originally presented to the emergency center after developing infection then utilized some burning with urination, she was started on Macrobid as per alternate provider outpatient, she reports taking the medication for about 3 days however she progressively became worse. Upon presentation to the emergency centershe was hypotensive and tachycardic, she did briefly require pressors, imaging revealed left side kidney stone with hydronephrosis. Patient is currently awake, alert and oriented, up out of bed to bedside chair, and she is now ableto eat and drink okay without any nausea vomiting or diarrhea, and see no acute signs of distress or discomfort, she does state she still has left flank pain although it is improving yet. I have personally reviewed the past medical history, past surgical history, medications, social history, and family history, and I have updated the database accordingly. Past Medical History: Past Medical History: Diagnosis Date Migraines Septic shock ([facility]) 05/21/2024 Past Surgical History: Past Surgical History: Procedure Laterality Date INGUINAL HERNIA REPAIR x2 KNEE ARTHROPLASTY Bilateral UMBILICAL HERNIA REPAIR Medications: cefTRIAXone (ROCEPHIN) IV, 2,000 mg, intravenous, Q24H gabapentin, 100 mg, oral, TID heparin (porcine), 5,000 Units, subcutaneous, Q8H [facility] Social History: Social History Socioeconomic History Marital status: Spouse name: Not on file Number of children: Not on file Years of education: Not on file Highest education level: Not on file Occupational History Not on file Tobacco Use Smoking status: Never Smokeless tobacco: Never Substance and Sexual Activity Alcohol use: Never Drug use: Never Sexual activity: Defer Other Topics Concern Not on file Social History Narrative Not on file Social Drivers of Health Financial Resource Strain: Not on file Food Insecurity: No Food Insecurity (05/21/2024) Hunger Screening Food Insecurity - Worry: Never True Food Insecurity - Inability: Never True Transportation Needs: No Transportation Needs (05/21/2024) PRAPARE - Transportation Lack of Transportation (Medical): No Lack of Transportation (Non-Medical): No Physical Activity: Not on file Stress: Not on file Social Connections: Not on file Interpersonal Safety: Not At Risk (05/21/2024) Humiliation, Afraid, Rape, and Kick questionnaire Fear of Current or Ex-Partner: No Emotionally Abused: No Physically Abused: No Sexually Abused: No Housing Instability: Low Risk (05/21/2024) Housing Instability Housing Instability: No Family History: Family History Problem Relation Age of Onset No Known Problems Mother Cancer Father Allergies: Sulfa (sulfonamide antibiotics) Review of Systems: CONSTITUTIONAL: Fatigue RESPIRATORY: negative CARDIOVASCULAR: negative GASTROINTESTINAL: Nausea vomiting GENITOURINARY: Frequency, pain with urination, left flank pain INTEGUMENT/BREAST: negative HEMATOLOGIC/LYMPHATIC: negative IMMUNOLOGIC: negative ENDOCRINE: negative MUSCULOSKELETAL: negative NEUROLOGICAL: negative BEHAVIOR/PSYCH: negative Physical Examination : BP (!) 107/93 Pulse 80 Temp 36.8 C (98.2 F) (Oral) Resp 24 Ht 172.7 cm (5' 8 ) Wt (!) 150kg (330 lb 11 oz) SpO2 95% BMI 50.28 kg/m Temperature Range: Temp: 36.8 C (98.2 F) Temp Av.6 C (97.8 F) Min: 36.4 C (97.6 F) Max: 36.8 C(98.2 F) CONSTITUTIONAL: awake, alert, cooperative, no apparent distress HEAD; normocephalic atraumatic NECK: supple, no thyroid deformity ENT no external ears deformity LUNGS: No increased work of breathing, no accessory muscle usage, no rhonchi or wheezing CARDIOVASCULAR: regular rate and rhythm ABDOMEN: Obese, normal bowel sounds, soft, non-distended, non-tender MUSCULOSKELETAL:both upper and lower extremities with no redness, warmth, or swelling NEUROLOGIC: Awake, alert, oriented to name, place and time. Follow commands. Cranial nerves grosslyintact SKIN: no rash Medical Decision Making: I have independently reviewed/ordered the following labs: CBC with Differential: Results from last 7 days Lab Units 05/23/24 0258 05/22/24 0200 05/21/24 1310 WBC X10E9/L 39.0* 28.1* 15.8* HEMOGLOBIN g/dL 11.7 10.6* 11.6* HEMATOCRIT % 34.6* 31.3* 34.6* PLATELETS X10E9/L 91* 60* 63* BMP: Results from last 7 days Lab Units 05/23/24 1021 05/23/24 0258 05/22/24 0200 05/21/24 2045 05/21/24 1310 POTASSIUM mmol/L 3.5 3.7 4.2 < > 3.1* CHLORIDE mmol/L -- 103 104 -- 101 CO2 mmol/L -- 20* 20* -- 22 BUN mg/dL -- 41* 28* -- 21 CREATININE mg/dL -- 1.47* 1.53* -- 1.50* EGFR (CKD-EPI)NON-RACE DEPENDENT ml/min/1.73sq.m -- 39* 37* -- 38* CALCIUM mg/dL -- 8.5 7.8* -- 8.1* MAGNESIUM mg/dL -- 2.0 1.8 -- 1.1* < > = values in this interval not displayed. LFTs: Results from last 7 days Lab Units 05/23/24 0258 05/22/24 0200 05/21/24 1310 ALK PHOS U/L 256* 202* 242* ALT U/L 65* 79* 95* AST U/L 48* 90* 189* Vanco: Inflam markers: No results found for: CRP No results found for: SEDRATE Cultures: Microbiology Results Procedure Component Value Units Date/Time Blood culture #1 [[id number]] Resulted: 05/23/24 1021 Specimen: Blood, Peripheral Draw Updated: 05/23/24 1021 Blood culture #2 [[id number]] Resulted: 05/23/24 1021 Specimen: Blood, Peripheral Draw Updated: 05/23/24 1021 Urine culture [[id number]] Collected: 05/21/24 1525 Specimen: Urine from Guevara Catheter Specimen Updated: 05/22/24 1420 Culture <10,000 ORGANISMS/ML NORMAL URO GENITAL ALANNAH Blood culture #2 [[id number]] Collected: 05/21/24 1523 Specimen: Blood Updated: 05/22/24 0609 Culture GRAM NEGATIVE RODS CULTURE IN PROGRESS Blood culture #1 [[id number]] (Abnormal) Collected: 05/21/24 1520 Specimen: Blood Updated: 05/23/24 0918 Culture ESCHERICHIA COLI CULTURE IN PROGRESS Escherichia coli detected by PCR. No resistance genes detected by PCR. Imaging Studies: IR percutaneous placement nephrostomy tube left Result Date: 05/21/2024 Narrative: EXAM: Image guided percutaneous nephrostomy tube placement, left CLINICAL HISTORY: 68-year-old female with obstructing left ureterovesicular stone in concern for urosepsis presents for percutaneous nephrostomy tube placement. STAFF: Dr. Den Thompson ANESTHESIA: Moderate sedation with Versed 2 mg and Fentanyl 100 mcg IV; A qualified, independent radiology nurse monitored the patient's cardiovascular status during the procedure. 1% Lidocaine used as local anesthetic. Sedation timewas 30 minutes. Total fluoroscopy time= minutes Reference Air Kerma = mGy Total saved images: 2 fluoroscopy, 1 ultrasound TECHNIQUE: Informed written and verbal consent was obtained following discussion of procedure and risks. All questions were answered. Final verification was performed. Patient was placed on the table prone. The left flank was prepared and draped in usual sterile fashion. Limited ultrasound demonstrates moderate hydronephrosis. A skin entry site was marked, 1% lidocaine was used for local anesthesia. Access to a posterior inferior calyx was obtained utilizing a 21-gauge needle under real-time ultrasound guidance. This was confirmed with return of clear urine, contrast injection demonstrates opacification of the collecting system. Using the AccuStick introducer set, the system was upsized to accommodate an 035 Amplatz wire. The tract was then dilated to accommodate a 10 Nicaraguan nephrostomy tube. The catheter was secured with a single 0 Prolene suture. Dressing applied. Patient tolerated all procedures well and there were no complications. FINDINGS: Severe left hydron ephrosis, fluoroscopic images demonstrated appropriate positioning of nephrostomy tube within the collecting system IMPRESSION: Successful image guided placement of left 10 Nicaraguan percutaneous nephrostomy tube PLAN: Maintained to gravity drainage Follow-up urine culture Routine catheter exchange should be performed in 6-8 weeks pending definitive urologic management Finalizedby Den Thompson MD on 05/21/2024 5:07 PM X-ray chest 1 view Result Date: 05/21/2024 Narrative: Single view chest XR CHEST 1 VW History: central venous line placement verification Comparison: May 21 at 4:24 AM current examination 2:20 PM Impression: * No consolidation or pleural fluid. No acute findings. * Central line placed at the superior vena cava. Poor inspiration without acute disease. No pneumothorax. Finalized by Jorge Mcdaniels MD on 05/21/2024 2:30PM Thank you for allowing us to participate in the care of this patient. Please call with questions. [facility] Infectious Disease Tammy Boyd APRN, CNP Preferred method of communication between 0700 and 1700 Epic chat If no response to Epic chat within 30 minutes, after 1700, and for urgent matters call [phone], if no answer call [phone] This note was completed using a voice bundle shaker system. Every effort was made to ensure accuracy. However, inadvertent computerized bundle shaker errors may be present. STEPHEN Mills 05/23/24 9697 IMaribel MD, personally performed [id number] diagnostic evaluation on this patient I reviewed and performed all the whitlock component of the patient visit I reviewed FATIMAH history, exam and MDM - Maribel Zepeda MD 05/23/24 2:04 PM * Esme Chen MD - 05/21/2024 2:35 PM EDTAssociated Order(s): IP CONSULT TO UROLOGY Urology Consultation Patient: Sharri Murillo Date of : 1955 CHIEF COMPLAINT: left ureteral stone, sepsis HISTORY OF PRESENT ILLNESS: The patient is a 68 y.o. female who presented to [facility] with history of recent UTI on 05/16 ( symptom - urinary frequency) and started on oral anbx, pt developed nausea, emesis, fever and chills. Pt was found to have 9x15mm UVJ stone in distal left ureter, hydronephrosis. UA nitrite +. Pt has history of nephrolithiasis, has required stone treatment previously for stone and passed some as well. She states most recent stone treatment she had a small amount that was 'lower down unclear if in ureter or renal pelvis. Pt transferred to [facility] as she has required Vasopressor for hypotension. BPs were 70-50s per chart Patient's old records, notes and chart reviewed and summarized above. Past Medical History: Nephrolithiasis GERD UTI Past Surgical History: No past surgical history on file. Medications: See med list Allergies: Sulfa (sulfonamide antibiotics) Social History: Social History Socioeconomic History Marital status: Spouse name: Not on file Number of children: Not on file Years of education: Not on file Highest education level: Not on file Occupational History Not on file Tobacco Use Smoking status: Not on file Smokeless tobacco: Not on file Substance and Sexual Activity Alcohol use: Not on file Drug use: Not on file Sexual activity: Not on file Other Topics Concern Not on file Social History Narrative Not on file Social Drivers of Health Financial Resource Strain: Not on file Food Insecurity: Not on file Transportation Needs: Not on file Physical Activity: Not on file Stress: Not on file Social Connections: Not on file Interpersonal Safety: Unknown (09/14/2023) Received from [facility] Safety & Environment Fear of Current or Ex-Partner: Not on file Emotionally Abused: Not on file Physically Abused: Not on file Sexually Abused: Not on file Physically or Sexually Abused: Not on file Housing Instability: Not on file Family History: No family history on file. REVIEW OF SYSTEMS: Fever and chills, denies chest pain or SOB, + nausea or emesis, denies diarrhea or constipation, GUas above Review of Systems Physical Exam: This a 68 y.o. female Patient Vitals for the past 24 hrs: BP Temp Temp src SpO2 Height Weight 05/21/24 1300 97/63 37.1 C (98.7 F) Oral 91 % -- -- 05/21/24 1200 -- -- -- -- 172.7 cm (5' 8 ) (!) 147 kg (324 lb) Constitutional: Patient in no acute distress. Neuro: Alert and oriented to person, place and time. Psych: mood and affect normal HEENT negative, vision and hearing grossly intact. Lungs: Respiratory effort is unlabored, on room air Cardiovascular: Normal peripheral pulses, +2/4 bilaterally Abdomen: Soft, non-tender, non-distended with no CVA, + left flank pain or hepatosplenomegaly. Lymphatics: No palpable lymphadenopathy. Bladder non-tender and not distended. LABS: Wbc 1.7 K2.6 Cr 1.5, bun19 Urinalysis: nitrite + Imaging Results CT-scan of abdomen and pelvis- Marked left hydro and hydroureter to [id number] UVJ stone. Possible additional proximal stone, + leftrenal stone Assessment and Plan Impression: 68 yo female with obstructing left distal ureterovesical junction stone with hydroureteronephrosis,+UTI, acute kidney injury Plan: IR consulted for left percutaneous nephrostomy tube emergently, placed and draining, culture sent Continuous supportive care, broad-spectrum antibiotics, ICU support We will need outpatient intervention of stone either here or in [place], also has left nonobstructing kidney stone No further acute urologic intervention needed at this time, will monitor - SHAHZAD LEI 05/21/24 3:04 PM Attending Attestation: I personally performed the face to face diagnostic evaluation on this patient. I have reviewed the advanced practice practitioner's history, exam, and MDM and agree with the assessment and plan as written. [facility] Plan of care note * Plan of Care - Jovany Wynne RN - 05/23/2024 8:52 AM EDT Problem: Pain Goal: Patient goal is pain score less than 4, able to rest, and participant in treatment plan as appropriate Description: INTERVENTIONS: 1. Encourage patient or legal bottling equipment sales representative to report early pain and ask for pain medicine when needed 2. Assess pain using appropriate pain scale and include the scale used when documenting 3. Administer analgesics based on type and severity of pain and evaluate response within appropriate time frame 4. Implement non-pharmacological measures as appropriate and evaluate response 5. Consider cultural and social influences on pain and pain management 6. Notify LIP if interventions ineffective or patient reports new pain 7. Monitor vital signs including pulse ox, end-tidal CO2 based on pain intervention 8. Reassess pain per policy 9. Teach patient or legal bottling equipment sales representative interventions for comforting Outcome: Progressing Note: Evaluation of progress towards goal: Patient is being monitored for pain routinely throughoutshift using whichever pain scale is clinically indicated. If patient cannot verbalize pain, RN willuse nonverbal ICU pain score & treat pain when indicated. If pain is not managed with medications ordered, RN will quickly communicate with physician to get pain treated. Problem: Safety Goal: Patient will be injury free during hospitalization Description: INTERVENTIONS: 1. Assess patient's risk for falls and implement fall prevention plan of care per policy 2. Provide and maintain a safe environment 3. Proper use of double Identifiers 4. Medication administration using the 5 rights 5. Hand hygiene 6. Specimens are labeled at the bedside 7. Instruct patient/ patient bottling equipment sales representative about use of safety devices 8. Include patient/ patient bottling equipment sales representative in decisions related to safety Outcome: Progressing Note: Evaluation of progress towards goal: Pt remains free of injury. Patient offered hourly roundsspecifically addressing the 4 P's. Patient assessed for appropriate fall precautions given medical status (i.e., non slip socks, bed locked and in lowest position, fall risk band on.) All patients are rounded on q1h and PRN. Problem: Infection Goal: Absence of infection during hospitalization Description: Interventions: 1. Assess and monitor for signs and symptoms of infection 2. Monitor lab/diagnostic results 3. Monitor all insertion sites i.e., indwelling lines, tubes and drains 4. Monitor endotracheal (as able) and nasal secretions for changes in amount and color 5. Administer medications as ordered 6. Instruct and encourage patient and family to use good hand hygiene technique 7. Identify and instruct patient/patient bottling equipment sales representative in use of appropriate isolation precautionsfor identified infection/symptoms 8. Provide and discuss with patient/patient bottling equipment sales representative on educational MDRO sheet 9. Encourage and monitor nutritional status daily and consult hardness inspector if indicated 10. Implement neutropenic guidelines as needed 11. Review exposure to history of communicable disease and recent travel history on admission 12. Encourage annual influenza vaccine 13. Encourage pneumonia vaccine Outcome: Progressing Note: Evaluation of progress towards goal: RN to monitor daily labs qshift. RN to closely monitor for s/sx of infection and sepsis routinely throughout shift. RN to immediately notify provider of concerns of infection/ sepsis. Problem: Knowledge Deficit Goal: Patient/patient bottling equipment sales representative demonstrates understanding of disease process, treatment plan,medications, and discharge instructions Description: INTERVENTIONS 1. Complete learning assessment and assess knowledge base 2. Provide teaching at level of understanding 3. Provide teaching via preferred learning method(s) Outcome: Progressing Note: Evaluation of progress towards goal: RN to assess patient's preferred learning methods. RN toprovide teaching at patient's and patient's family's level of understanding when applicable. If patient and family are unable to participate in education, RN will continue to monitor for education readiness Qshift and PRN and preform education when appropriate. Problem: Discharge Planning Goal: Discharge to post-acute care, other facility, or home with appropriate resources Description: Patient's goal is: INTERVENTIONS 1. Conduct assessment to determine patient/family and health care team treatment goals, and need for post-acute services based on payer coverage, community resources, and patient preferences, and barriers to discharge 2. Coordinate with Social work, Care Navigation, and Utilization Review to arrange appropriate level of services according to patient's needs based on patient preference and payer coverage in collaboration with the physician and health care team 3. Address psychosocial, clinical, and financial barriers to discharge as identified in assessment in conjunction with the patient/family and health care team 4. Consult appropriate ancillary services (i.e.. PT/OT/ST, etc) as needed 5. Communicate with and update the patient/family, physician, and health care team regarding progress on the discharge plan 6. Identify discharge learning needs (meds, wound care, etc). 7. Arrange for needed discharge transportation as appropriate Outcome: Progressing Note: Evaluation of progress towards goal: Discharge planning to proceed when appropriate. Problem: Potential for Compromised Skin Integrity Goal: Skin integrity is maintained or improved Description: Patient's goal is: INTERVENTIONS 1. Perform initial skin assessment on admission and as needed 2. Turn patient every 2 hours and PRN 3. Relieve pressure to bony prominences 4. Avoid shearing 5. Keep skin clean and dry 6. Alternate a full bath with partial baths for elderly 7. Apply lotion/moisturizer on skin 8. Monitor patient's hygiene practices 9. Float heels 10. Collaborate with interdisciplinary team and initiate plans and interventions as needed Outcome: Progressing Note: Evaluation of progress towards goal: RN to perform skin assessment with each assessment. Patient turned every 2 hours and PRN when clinically indicated. Problem: Moderate - High Risk Fall Score Description: Kenney Fall Score of =/> 25 or indicated by [facility] Assessment Goal: Patient should be free from fall Description: Interventions: 1. [place] to environment 2. Hourly rounds addressing the 4 P's (Pain, Positioning, Possessions, Potty) 3. Clear area of hazards (spills, clutter, electrical cords, unnecessary equipment) 4. Place equipment (bed & TV controls, call light, phone, urinal) within reach 5. Encourage patient to wear glasses and hearing aides as appropriate 6. Maintain bed in lowest position 7. Lock wheels on bed/wheelchair 8. Provide adequate lighting, including night light 9. Assess need for additional bedding, food/fluids, pain med's prior to sleep/routinely 10. Provide gripper slippers or personal non-skid footwear 11. Teach patient and patient bottling equipment sales representative to maintain environment for safety and engage in all aspects of fall prevention program 12. Remind patient to call for help before getting out of bed 13. Initiate bed/chair/exit alarms supportive devices as appropriate, (chair wedge, no-skid floor mat, raised edge mattress, hip protectors) 14. Locate patient bed assignment for optimal visualization 15. Evaluate and identify Safe Patient Handling Equipment needs 16. Provide supervision when out of bed or chair 17. Utilize gait belt as needed to assist with ambulation 18. Place adaptive equipment (cane, walker) within reach 19. Request patient bottling equipment sales representative bring adaptive equipment/mobility aids from home or obtain and provide as needed 20. Consult pharmacy regarding effects of med's affecting mobility, cognition, and alternatives 21. Obtain physician order for PT if risk factors associated with mobility are present 22. Obtain physician order for OT as appropriate 23. Utilize diversional activities 24. Educate patient and patient bottling equipment sales representative how to maintain a safe environment during visitationtimes (notify nurse prior to leaving bedside) 25. Consider appropriateness of medical or non-medical coding auditor 26. Set up voiding schedule as appropriate (every 2 hours) Outcome: Progressing Note: Evaluation of progress towards goal: Pt assessed for risk of fall throughout shift. Patient offered hourly rounds specifically addressing the 4 P's. Patient assessed for appropriate fall precautions given medical status (i.e., non slip socks, bed locked and in lowest position, fall risk band on.) All patients are rounded on q1h and PRN. [facility] [employer] [id number] Plan of care note* Plan of Care - Bertrand Cleary - 05/22/2024 7:05 PM EDT Problem: Pain Goal: Patient goal is pain score less than 4, able to rest, and participant in treatment plan as appropriate Description: INTERVENTIONS: 1. Encourage patient or legal bottling equipment sales representative to report early pain and ask for pain medicine when needed 2. Assess pain using appropriate pain scale and include the scale used when documenting 3. Administer analgesics based on type and severity of pain and evaluate response within appropriate time frame 4. Implement non-pharmacological measures as appropriate and evaluate response 5. Consider cultural and social influences on pain and pain management 6. Notify LIP if interventions ineffective or patient reports new pain 7. Monitor vital signs including pulse ox, end-tidal CO2 based on pain intervention 8. Reassess pain per policy 9. Teach patient or legal bottling equipment sales representative interventions for comforting Outcome: Progressing Note: Evaluation of progress towards goal: RN monitoring patients pain Q4hrs. Problem: Safety Goal: Patient will be injury free during hospitalization Description: INTERVENTIONS: 1. Assess patient's risk for falls and implement fall prevention plan of care per policy 2. Provide and maintain a safe environment 3. Proper use of double Identifiers 4. Medication administration using the 5 rights 5. Hand hygiene 6. Specimens are labeled at the bedside 7. Instruct patient/ patient bottling equipment sales representative about use of safety devices 8. Include patient/ patient bottling equipment sales representative in decisions related to safety Outcome: Progressing Note: Evaluation of progress towards goal: Bed locked, call light within reach, family at bedside. Problem: Urinary Incontinence Goal: Perineal skin integrity is maintained or improved Description: INTERVENTIONS 1. Assess genitourinary system, perineal skin, labs (urinalysis), and history of incontinence to include past management, aggravating, and alleviating factors 2. Keep skin clean and dry 3. Apply skin protectant 4. Develop skin care regimen 5. Provide privacy when changing patients incontinence device to maintain their dignity 6. Consider placing an indwelling catheter 7. Collaborate with interdisciplinary team and initiate plans and interventions as needed Outcome: Progressing Note: Evaluation of progress towards goal: RN performing pericare. [employer] [id number] Plan of care note* Plan of Care - Senia Godfrey RN - 05/22/2024 4:34 PM EDT Problem: Pain Goal: Patient goal is pain score less than 4, able to rest, and participant in treatment plan as appropriate Description: INTERVENTIONS: 1. Encourage patient or legal bottling equipment sales representative to report early pain and ask for pain medicine when needed 2. Assess pain using appropriate pain scale and include the scale used when documenting 3. Administer analgesics based on type and severity of pain and evaluate response within appropriate time frame 4. Implement non-pharmacological measures as appropriate and evaluate response 5. Consider cultural and social influences on pain and pain management 6. Notify LIP if interventions ineffective or patient reports new pain 7. Monitor vital signs including pulse ox, end-tidal CO2 based on pain intervention 8. Reassess pain per policy 9. Teach patient or legal bottling equipment sales representative interventions for comforting 05/22/2024 [id number] by MINNIE Conn Outcome: Progressing Note: Evaluation of progress towards goal: Patient is being monitored for pain routinely throughoutshift using whichever pain scale is clinical indicated. If patient cannot verbalize pain, RN will use nonverbal ICU pain score & treat pain when indicated. If pain is not managed with medicationsordered, RN will quickly communicate with physician to get pain treated. 05/22/2024 1407 by MINNIE Conn Outcome: Progressing Note: Evaluation of progress towards goal: Problem: Safety Goal: Patient will be injury free during hospitalization Description: INTERVENTIONS: 1. Assess patient's risk for falls and implement fall prevention plan of care per policy 2. Provide and maintain a safe environment 3. Proper use of double Identifiers 4. Medication administration using the 5 rights 5. Hand hygiene 6. Specimens are labeled at the bedside 7. Instruct patient/ patient bottling equipment sales representative about use of safety devices 8. Include patient/ patient bottling equipment sales representative in decisions related to safety Outcome: Progressing Note: Evaluation of progress towards goal: Pt assessed for risk of fall throughout shift. Patient offered hourly rounds specifically addressing the 4 P's. Patient assessed for appropriate fall precautions given medical status (i.e., non slip socks, bed locked and in lowest position, fall risk band on.) All patients are rounded on q1h and PRN. Problem: Infection Goal: Absence of infection during hospitalization Description: Interventions: 1. Assess and monitor for signs and symptoms of infection 2. Monitor lab/diagnostic results 3. Monitor all insertion sites i.e., indwelling lines, tubes and drains 4. Monitor endotracheal (as able) and nasal secretions for changes in amount and color 5. Administer medications as ordered 6. Instruct and encourage patient and family to use good hand hygiene technique 7. Identify and instruct patient/patient bottling equipment sales representative in use of appropriate isolation precautionsfor identified infection/symptoms 8. Provide and discuss with patient/patient bottling equipment sales representative on educational MDRO sheet 9. Encourage and monitor nutritional status daily and consult hardness inspector if indicated 10. Implement neutropenic guidelines as needed 11. Review exposure to history of communicable disease and recent travel history on admission 12. Encourage annual influenza vaccine 13. Encourage pneumonia vaccine Outcome: Progressing Note: Evaluation of progress towards goal: RN to monitor daily labs qshift. RN to closely monitor for s/sx of infection and sepsis routinely throughout shift. RN to immediately notify provider of concerns of infection/ sepsis. Problem: Potential for Compromised Skin Integrity Goal: Skin integrity is maintained or improved Description: Patient's goal is: INTERVENTIONS 1. Perform initial skin assessment on admission and as needed 2. Turn patient every 2 hours and PRN 3. Relieve pressure to bony prominences 4. Avoid shearing 5. Keep skin clean and dry 6. Alternate a full bath with partial baths for elderly 7. Apply lotion/moisturizer on skin 8. Monitor patient's hygiene practices 9. Float heels 10. Collaborate with interdisciplinary team and initiate plans and interventions as needed Outcome: Progressing Note: Evaluation of progress towards goal: RN to perform skin assessment with each assessment. Patient turned every 2 hours and PRN when clinically indicated. If bony prominences on patient exist, RNto cover each one with a foam adhesive. RN to assess skin with each incontinence to ensure patient skin remains dry and free from breakdown. Heels floated if clinically indicated. Problem: Moderate - High Risk Fall Score Description: [place] Fall Score of =/> 25 or indicated by [facility] Assessment Goal: Patient should be free from fall Description: Interventions: 1. [place] to environment 2. Hourly rounds addressing the 4 P's (Pain, Positioning, Possessions, Potty) 3. Clear area of hazards (spills, clutter, electrical cords, unnecessary equipment) 4. Place equipment (bed & TV controls, call light, phone, urinal) within reach 5. Encourage patient to wear glasses and hearing aides as appropriate 6. Maintain bed in lowest position 7. Lock wheels on bed/wheelchair 8. Provide adequate lighting, including night light 9. Assess need for additional bedding, food/fluids, pain med's prior to sleep/routinely 10. Provide gripper slippers or personal non-skid footwear 11. Teach patient and patient bottling equipment sales representative to maintain environment for safety and engage in all aspects of fall prevention program 12. Remind patient to call for help before getting out of bed 13. Initiate bed/chair/exit alarms supportive devices as appropriate, (chair wedge, no-skid floor mat, raised edge mattress, hip protectors) 14. Locate patient bed assignment for optimal visualization 15. Evaluate and identify Safe Patient Handling Equipment needs 16. Provide supervision when out of bed or chair 17. Utilize gait belt as needed to assist with ambulation 18. Place adaptive equipment (cane, walker) within reach 19. Request patient bottling equipment sales representative bring adaptive equipment/mobility aids from home or obtain and provide as needed 20. Consult pharmacy regarding effects of med's affecting mobility, cognition, and alternatives 21. Obtain physician order for PT if risk factors associated with mobility are present 22. Obtain physician order for OT as appropriate 23. Utilize diversional activities 24. Educate patient and patient bottling equipment sales representative how to maintain a safe environment during visitationtimes (notify nurse prior to leaving bedside) 25. Consider appropriateness of medical or non-medical coding auditor 26. Set up voiding schedule as appropriate (every 2 hours) Note: Evaluation of progress towards goal: Pt assessed for risk of fall throughout shift. Patient offered hourly rounds specifically addressing the 4 P's. Patient assessed for appropriate fall precautions given medical status (i.e., non slip socks, bed locked and in lowest position, fall risk band on.) All patients are rounded on q1h and PRN. [employer]10-30-2024 Progress note* Discharge Planning Note - KALINA Sanon - 05/22/2024 2:06 PM EDT DISCHARGE PLANNING NOTE Water Quality Specialist met with patient, introduced self, and explained role. Patient is alert and oriented, sitting in lazy boy chair, cooperative. Patient educated on safe discharge plan. Pt admitted 05/21/2024 with Septic shock ([facility] [place]) [A41.9, R65.21] Elevated troponin [R79.89] per chart review. Consults: Urology Discharge Barriers per Daily Transition Rounds and chart review: clears, IV ATB, IV Pepcid, new neph tube, guevara Past Medical History: Diagnosis Date Migraines Septic shock ([facility]) 05/21/2024 Prior to admission patient was living with spouse/significant other in a 2 story home with a basement (laundry) and 2 steps into the home- does not use 2nd floor and self care. Medical equipment patient used prior to admission includes: None but has walking sticks and wheeled walker for home use ifneeded. Patient stating that she completes the household duties and prepares meals. Patient continues to drive. Patient stating that is in good health- he does have COPD- does not wear O2. Patient stating that she has not utilized home care or stayed at SNF/inpatient rehab in the past. Patient denies need for transportation/ food/ prescription medication assistance resources. Social work briefly discussed potential transition plan and options with patient- she is open to recommendations. Social work will continue to follow patient progress to determine final transition needs. PCP: OLMAN SHOEMAKER MD Pharmacy:[facility] PCP and pharmacy confirmed with patient. OLMAN SHOEMAKER MD added to Follow Up Providers for Summary of Care communication. Current discharge plan is: TBD Services Requested: Services Requested Initial DC Assessment Completed: Yes Goals: Goals None Will continue to follow as plan of care develops. CN discussed benefits and importance of medication compliance and follow ups. Please feel free to reach out for any discharge planning questions. - KALINA SANON 05/22/24 2:07 PM [employer]10-30-2024 Progress note* Query Response - Ryan Benitez MD - 05/22/2024 12:02 PM EDT Query Response Note CDI QUERY TEXT: Clinical Significance [id number] Disclaimer: By submitting this query, we are merely seeking further clarification of documentation to accurately reflect all conditions that you are monitoring, evaluating, treating or that extend the hospitalization or utilize additional resources of care. Please utilize your independent clinical judgment when addressing the question(s) below. Dr. Benitez, Patient has the below platelet levels. Please specify if there is an additional diagnosis appropriate for this patient. History and risk factors: 68/F, admitted with sepsis due to hydroureteronephrosis. Treatment: Platelet monitoring Please specify if there is an additional diagnosis appropriate for this patient: [ ] Thrombocytopenia [ ] Other, diagnosis, please specify The patient's Clinical Indicators include: Platelets: 05/21: 63 05/22: 60 Thank you, Angella PIERCE, RN Clinical Fire Captain Clinical Documentation Integrity Email: [email or web address] Hours of availability 7:00am to 3:30pm, Monday to Monday CDI RESPONSE TEXT: Thrombocytopenia due to sepsis Query created by: Angella Gilbert on 05/22/2024 6:01 AM Electronically signed by: Ryan Benitez MD 05/22/2024 12:[address] [employer] [id number] Plan of care note* Plan of Care - Maria Morton MD - 05/22/2024 9:34 AM EDT [facility] Transfer Accept Note I received a request from the ICU team to transfer primary service to [facility]. I have received a verbalhand off from the ICU team. [facility] will assume care as primary team, once patient is out of the ICU. ASSESSMENT 1. Septic shock due to urosepsis and E coli bacteremia has improved. Currently off pressors 2. Obstructive uropathy status post percutaneous drainage 3. E coli bacteremia 4. Acute kidney injury due to above has improved 5. Acute respiratory failure due to sepsis has improved 6. Thrombocytopenia in the setting of severe sepsis 7. Lactic acidosis has resolved PLAN Clinically improved Discontinue IV stress dose of steroids Discontinue IV fluids May require diuresis Out of bed to chair Wean oxygen down as tolerated Monitor urine output Switch antibiotic to ceftriaxone Can transfer later to floor if continued to be stable [facility] [employer] [facility] Work Phone: 1(384) 490-543610-30-2024 Progress note* Query Response - Ryan Benitez MD - 05/22/2024 8:37 AM EDT Query Response Note CDI QUERY TEXT: Respiratory Failure Acuity and Type [id number] Disclaimer: By submitting this query, we are merely seeking further clarification of documentation to accurately reflect all conditions that you are monitoring, evaluating, treating or that extend the hospitalization or utilize additional resources of care. Please utilize your independent clinical judgment when addressing the question(s) below. Dr. Benitez, Respiratory insufficiency is documented in the H/p on 05/21. Please specify if there is an additional diagnosis appropriate for this patient. History and risk factors: 68/F, admitted with sepsis due to hydroureteronephrosis. Treatment: SpO2 monitoring 4 liters nasal cannula Please specify if there is an additional diagnosis appropriate for this patient: [ ] Acute hypoxic respiratory failure due to septic shock due to left-sided hydronephrosis [ ] Other, diagnosis, please specify The patient's Clinical Indicators include: SpO2: 05/21 15:57: On room air 05/21 16:10: 4L nasal cannula-current Respiratory rate: 05/21: 29, 32, 38, 34, 35, 37, 39, 44, 40 CXR 05/21: ?Poor inspiration?. H/P 05/21: ?Respiratory insufficiency? Slightly tachypneic?. Thank you, Angella PIERCE, RN Clinical Fire Captain Clinical Documentation Integrity Email: [email or web address] Hours of availability 7:00am to 3:30pm, Monday to Monday CDI RESPONSE TEXT: Acute respiratory failure due to sepsis Query created by: Angella Gilbert on 05/22/2024 6:08 AM Electronically signed by: Ryan Benitez MD 05/22/2024 8:[address] [facility] [id number] Plan of care note* Plan of Care - Bertrand Cleary - 05/21/2024 9:59 PM EDT Problem: Pain Goal: Patient goal is pain score less than 4, able to rest, and participant in treatment plan as appropriate Description: INTERVENTIONS: 1. Encourage patient or legal bottling equipment sales representative to report early pain and ask for pain medicine when needed 2. Assess pain using appropriate pain scale and include the scale used when documenting 3. Administer analgesics based on type and severity of pain and evaluate response within appropriate time frame 4. Implement non-pharmacological measures as appropriate and evaluate response 5. Consider cultural and social influences on pain and pain management 6. Notify LIP if interventions ineffective or patient reports new pain 7. Monitor vital signs including pulse ox, end-tidal CO2 based on pain intervention 8. Reassess pain per policy 9. Teach patient or legal bottling equipment sales representative interventions for comforting Outcome: Progressing Note: Evaluation of progress towards goal: RN performing pain assessments and intervening when needed / indicated. Problem: Infection Goal: Absence of infection during hospitalization Description: Interventions: 1. Assess and monitor for signs and symptoms of infection 2. Monitor lab/diagnostic results 3. Monitor all insertion sites i.e., indwelling lines, tubes and drains 4. Monitor endotracheal (as able) and nasal secretions for changes in amount and color 5. Administer medications as ordered 6. Instruct and encourage patient and family to use good hand hygiene technique 7. Identify and instruct patient/patient bottling equipment sales representative in use of appropriate isolation precautionsfor identified infection/symptoms 8. Provide and discuss with patient/patient bottling equipment sales representative on educational MDRO sheet 9. Encourage and monitor nutritional status daily and consult hardness inspector if indicated 10. Implement neutropenic guidelines as needed 11. Review exposure to history of communicable disease and recent travel history on admission 12. Encourage annual influenza vaccine 13. Encourage pneumonia vaccine Outcome: Progressing Note: Evaluation of progress towards goal: Pt on ATBs. RN monitoring vital signs. [facility] [id number] Procedure note* Serafin Ott RN - 05/21/2024 4:04 PM EDT Site Preparation: Site Marked: yes Other: left back Prepped with: Chloraprep - with dry time of 3 minutes prior to draping the patient Site Clipped: no Patient Draped: yes [facility]10-29-2024 Procedure note* Serafin Ott RN - 05/21/2024 4:04 PM EDT Site Preparation: Site Marked: yes Other: left back Prepped with: Chloraprep - with dry time of 3 minutes prior to draping the patient Site Clipped: no Patient Draped: yes * STEPHEN Cobian - 05/21/2024 2:25 PM EDTAssociated Order(s): Central Line Insertion Post-Procedure Diagnose(s): Septic shock ([facility]) Images from the original note were not included. PREOPERATIVE DIAGNOSIS: Septic shock Urosepsis Acute hypoxic respiratory insufficiency PROCEDURE: Central Line Insertion Date/Time: 05/21/2024 2:25 PM Performed by: STEPHEN Cobian Authorized by: STEPHEN Cobian Consent: Verbal consent obtained. Written consent obtained. Risks and benefits: risks, benefits and alternatives were discussed Consent given by: patient Patient understanding: patient states understanding of the procedure being performed Patient consent: the patient's understanding of the procedure matches consent given Procedure consent: procedure consent matches procedure scheduled Relevant documents: relevant documents present and verified Site marked: the operative site was marked Imaging studies: imaging studies available Required items: required blood products, implants, devices, and special equipment available Patient identity confirmed: verbally with patient, arm band, provided demographic data and hospital-assigned identification number Time out: Immediately prior to procedure a time out was called to verify the correct patient, procedure, equipment, business support coordinator and site/side marked as required. Fire Risk Assessment Score Procedure site above the Xiphoid 1 Open O2 source (mask/cannula) 1 Ignition source (Cautery, Fiberoptic Light, Laser) 0 Total Fire Risk Assessment Score 2 Indications: vascular access and central pressure monitoring Anesthesia: local infiltration Anesthesia: Local Anesthetic: lidocaine 1% without epinephrine Anesthetic total: 3 mL Sedation: Patient sedated: no Preparation: skin prepped with ChloraPrep Skin prep agent dried: skin prep agent completely dried prior to procedure Sterile barriers: all five maximum sterile barriers used - cap, mask, sterile gown, sterile gloves,and large sterile sheet Hand hygiene: hand hygiene performed prior to central venous catheter insertion Location details: right internal jugular Patient position: Trendelenburg Catheter type: triple lumen Catheter size: 7 Fr Pre-procedure: landmarks identified Ultrasound guidance: yes Sterile ultrasound techniques: sterile gel and sterile probe covers were used Number of attempts: 1 Successful placement: yes Post-procedure: line sutured and dressing applied Assessment: blood return through all ports, free fluid flow and placement verified by x-ray Patient tolerance: patient tolerated the procedure well with no immediate complications Procedure was completed Vital signs stable during the procedure Complications: none Interventions: none Proceduralist: Milton Garcia CNP 1st Software Engineer Backend: Samantha Whitley CNP ESTIMATED BLOOD LOSS: Less than 5cc FINDINGS: A time-out was performed identifying the patient, the correct procedure, and the correct location with the nursing staff. The right neck was prepped with chloraprep solution and draped witha full-length sterile sheet in usual fashion. 1% lidocaine was administered subcutaneously for local anesthesia. The right internal jugular vein was accessed under ultrasound guidance with an 18 gauge thin-walled needle. Guidewire was inserted without resistance and position of the guidewire was confirmed in an easily collapsible vessel using ultrasound. A 7.0-luxembourger 16 cm triple lumen catheter was inserted to 16 cm via Seldinger technique. Blood was withdrawn from all lumens and flushed with normal saline. Sterile caps were applied to each lumen. Catheter was sutured in place and a sterile dressing applied over the site prior to the removal of the drape. Patient tolerated the procedure well and there were no complications noted. Chest x-ray is pending at this time. POST OPERATIVE DIAGNOSIS: Same as above STEPHEN Cobian 05/21/24 1427 * STEPHEN Cobian - 05/21/2024 2:19 PM EDTAssociated Order(s): Arterial Line Insertion Post-Procedure Diagnose(s): Septic shock ([facility]) PREOPERATIVE DIAGNOSIS: Septic shock Urosepsis Acute hypoxic respiratory insufficiency PROCEDURE: Arterial Line Insertion Date/Time: 05/21/2024 2:19 PM Performed by: STEPHEN Cobian Authorized by: STEPHEN Cobian Consent: Verbal consent obtained. Risks and benefits: risks, benefits and alternatives were discussed Consent given by: patient Patient understanding: patient states understanding of the procedure being performed Patient consent: the patient's understanding of the procedure matches consent given Procedure consent: procedure consent matches procedure scheduled Relevant documents: relevant documents present and verified Site marked: the operative site was marked Imaging studies: imaging studies available Required items: required blood products, implants, devices, and special equipment available Patient identity confirmed: verbally with patient, arm band, provided demographic data and hospital-assigned identification number Time out: Immediately prior to procedure a time out was called to verify the correct patient, procedure, equipment, business support coordinator and site/side marked as required. Fire Risk Assessment Score Procedure site above the Xiphoid 0 Open O2 source (mask/cannula) 1 Ignition source (Cautery, Fiberoptic Light, Laser) 0 Total Fire Risk Assessment Score 1 Preparation: Patient was prepped and draped in the usual sterile fashion. Indications: multiple ABGs and hemodynamic monitoring Location: left radial Anesthesia: local infiltration Anesthesia: Local Anesthetic: lidocaine 1% without epinephrine Anesthetic total: 3 mL Sedation: Patient sedated: no Matt's test normal: yes Needle gauge: 20 Seldinger technique: Seldinger technique used Number of attempts: 1 Post-procedure: line sutured and dressing applied Post-procedure CMS: normal and unchanged Patient tolerance: Patient tolerated the procedure well with no immediate complications Procedure was completed Vital signs stable during the procedure Complications: none Interventions: none Proceduralist: Milton Garcia CNP ESTIMATED BLOOD LOSS: Less than 5 cc FINDINGS: The left Radial artery was palpated and found to be adequate. The site was prepped and draped in sterile fashion, and cleaned with chloraprep solution. 1% lidocaine was injected subcutaneously to anesthetize the area. Using Ultrasound guidance a 20 gauge 1 3/4 arterial catheter was inserted into the left Radial artery using Seldinger technique. Pulsatile flow was noted upon insertion, and arterial waveform was noted on monitor. Line was sutured in place and sterile dressing applied. Armboard placed on patient. Patient tolerated procedure well. POST OPERATIVE DIAGNOSIS: Same as above STEPHEN Cobian 05/21/24 1423 documented in this encounterAvita Health [facility] HospitalGlucoTec [id number] Nurse procedure note* Sedation Documentation - Serafin Ott RN - 05/21/2024 3:58 PM EDT Basic respiratory resuscitation equipment including Ambu bags, airway devices, suction, oxygen, blood pressure cuff appropriate to size of patient, lunchroom monitor, pulse oximetry, ETCO2, and reversal agents are available. An emergency resuscitation cart, advanced resuscitation medications and defibrillator are availablein the immediate area. [facility] [employer] [id number] Consult note* Esme Chen MD - 05/21/2024 2:35 PM EDTAssociated Order(s): IP CONSULT TO UROLOGY Urology Consultation Patient: Sharri Murillo Date of : 1955 CHIEF COMPLAINT: left ureteral stone, sepsis HISTORY OF PRESENT ILLNESS: The patient is a 68 y.o. female who presented to [facility] with history of recent UTI on 05/16 ( symptom - urinary frequency) and started on oral anbx, pt developed nausea, emesis, fever and chills. Pt was found to have 9x15mm UVJ stone in distal left ureter, hydronephrosis. UA nitrite +. Pt has history of nephrolithiasis, has required stone treatment previously for stone and passed some as well. She states most recent stone treatment she had a small amount that was 'lower down unclear if in ureter or renal pelvis. Pt transferred to [facility] as she has required Vasopressor for hypotension. BPs were 70-50s per chart Patient's old records, notes and chart reviewed and summarized above. Past Medical History: Nephrolithiasis GERD UTI Past Surgical History: No past surgical history on file. Medications: See med list Allergies: Sulfa (sulfonamide antibiotics) Social History: Social History Socioeconomic History Marital status: Spouse name: Not on file Number of children: Not on file Years of education: Not on file Highest education level: Not on file Occupational History Not on file Tobacco Use Smoking status: Not on file Smokeless tobacco: Not on file Substance and Sexual Activity Alcohol use: Not on file Drug use: Not on file Sexual activity: Not on file Other Topics Concern Not on file Social History Narrative Not on file Social Drivers of Health Financial Resource Strain: Not on file Food Insecurity: Not on file Transportation Needs: Not on file Physical Activity: Not on file Stress: Not on file Social Connections: Not on file Interpersonal Safety: Unknown (09/14/2023) Received from [facility] Safety & Environment Fear of Current or Ex-Partner: Not on file Emotionally Abused: Not on file Physically Abused: Not on file Sexually Abused: Not on file Physically or Sexually Abused: Not on file Housing Instability: Not on file Family History: No family history on file. REVIEW OF SYSTEMS: Fever and chills, denies chest pain or SOB, + nausea or emesis, denies diarrhea or constipation, GUas above Review of Systems Physical Exam: This a 68 y.o. female Patient Vitals for the past 24 hrs: BP Temp Temp src SpO2 Height Weight 05/21/24 1300 97/63 37.1 C (98.7 F) Oral 91 % -- -- 05/21/24 1200 -- -- -- -- 172.7 cm (5' 8 ) (!) 147 kg (324 lb) Constitutional: Patient in no acute distress. Neuro: Alert and oriented to person, place and time. Psych: mood and affect normal HEENT negative, vision and hearing grossly intact. Lungs: Respiratory effort is unlabored, on room air Cardiovascular: Normal peripheral pulses, +2/4 bilaterally Abdomen: Soft, non-tender, non-distended with no CVA, + left flank pain or hepatosplenomegaly. Lymphatics: No palpable lymphadenopathy. Bladder non-tender and not distended. LABS: Wbc 1.7 K2.6 Cr 1.5, bun19 Urinalysis: nitrite + Imaging Results CT-scan of abdomen and pelvis- Marked left hydro and hydroureter to [id number] UVJ stone. Possible additional proximal stone, + leftrenal stone Assessment and Plan Impression: 68 yo female with obstructing left distal ureterovesical junction stone with hydroureteronephrosis,+UTI, acute kidney injury Plan: IR consulted for left percutaneous nephrostomy tube emergently, placed and draining, culture sent Continuous supportive care, broad-spectrum antibiotics, ICU support We will need outpatient intervention of stone either here or in [place], also has left nonobstructing kidney stone No further acute urologic intervention needed at this time, will monitor - SHAHZAD LEI 05/21/24 3:04 PM Attending Attestation: I personally performed the face to face diagnostic evaluation on this patient. I have reviewed the advanced practice practitioner's history, exam, and MDM and agree with the assessment and plan as written. [facility]10-29-2024 Procedure note* STEPHEN Cobian - 05/21/2024 2:25 PM EDTAssociated Order(s): Central Line Insertion Post-Procedure Diagnose(s): Septic shock ([facility]) Images from the original note were not included. PREOPERATIVE DIAGNOSIS: Septic shock Urosepsis Acute hypoxic respiratory insufficiency PROCEDURE: Central Line Insertion Date/Time: 05/21/2024 2:25 PM Performed by: STEPHEN Cobian Authorized by: STEPHEN Cobian Consent: Verbal consent obtained. Written consent obtained. Risks and benefits: risks, benefits and alternatives were discussed Consent given by: patient Patient understanding: patient states understanding of the procedure being performed Patient consent: the patient's understanding of the procedure matches consent given Procedure consent: procedure consent matches procedure scheduled Relevant documents: relevant documents present and verified Site marked: the operative site was marked Imaging studies: imaging studies available Required items: required blood products, implants, devices, and special equipment available Patient identity confirmed: verbally with patient, arm band, provided demographic data and hospital-assigned identification number Time out: Immediately prior to procedure a time out was called to verify the correct patient, procedure, equipment, business support coordinator and site/side marked as required. Fire Risk Assessment Score Procedure site above the Xiphoid 1 Open O2 source (mask/cannula) 1 Ignition source (Cautery, Fiberoptic Light, Laser) 0 Total Fire Risk Assessment Score 2 Indications: vascular access and central pressure monitoring Anesthesia: local infiltration Anesthesia: Local Anesthetic: lidocaine 1% without epinephrine Anesthetic total: 3 mL Sedation: Patient sedated: no Preparation: skin prepped with ChloraPrep Skin prep agent dried: skin prep agent completely dried prior to procedure Sterile barriers: all five maximum sterile barriers used - cap, mask, sterile gown, sterile gloves,and large sterile sheet Hand hygiene: hand hygiene performed prior to central venous catheter insertion Location details: right internal jugular Patient position: Trendelenburg Catheter type: triple lumen Catheter size: 7 Fr Pre-procedure: landmarks identified Ultrasound guidance: yes Sterile ultrasound techniques: sterile gel and sterile probe covers were used Number of attempts: 1 Successful placement: yes Post-procedure: line sutured and dressing applied Assessment: blood return through all ports, free fluid flow and placement verified by x-ray Patient tolerance: patient tolerated the procedure well with no immediate complications Procedure was completed Vital signs stable during the procedure Complications: none Interventions: none Proceduralist: Milton Garcia CNP 1st Software Engineer Backend: Samantha Whitley CNP ESTIMATED BLOOD LOSS: Less than 5cc FINDINGS: A time-out was performed identifying the patient, the correct procedure, and the correct location with the nursing staff. The right neck was prepped with chloraprep solution and draped witha full-length sterile sheet in usual fashion. 1% lidocaine was administered subcutaneously for local anesthesia. The right internal jugular vein was accessed under ultrasound guidance with an 18 gauge thin-walled needle. Guidewire was inserted without resistance and position of the guidewire was confirmed in an easily collapsible vessel using ultrasound. A 7.0-luxembourger 16 cm triple lumen catheter was inserted to 16 cm via Seldinger technique. Blood was withdrawn from all lumens and flushed with normal saline. Sterile caps were applied to each lumen. Catheter was sutured in place and a sterile dressing applied over the site prior to the removal of the drape. Patient tolerated the procedure well and there were no complications noted. Chest x-ray is pending at this time. POST OPERATIVE DIAGNOSIS: Same as above STEPHEN Cobian 05/21/24 1427 [facility]10-29-2024 Procedure note* STEPHEN Cobian - 05/21/2024 2:19 PM EDTAssociated Order(s): Arterial Line Insertion Post-Procedure Diagnose(s): Septic shock ([facility]) PREOPERATIVE DIAGNOSIS: Septic shock Urosepsis Acute hypoxic respiratory insufficiency PROCEDURE: Arterial Line Insertion Date/Time: 05/21/2024 2:19 PM Performed by: STEPHEN Cobian Authorized by: STEPHEN Cobian Consent: Verbal consent obtained. Risks and benefits: risks, benefits and alternatives were discussed Consent given by: patient Patient understanding: patient states understanding of the procedure being performed Patient consent: the patient's understanding of the procedure matches consent given Procedure consent: procedure consent matches procedure scheduled Relevant documents: relevant documents present and verified Site marked: the operative site was marked Imaging studies: imaging studies available Required items: required blood products, implants, devices, and special equipment available Patient identity confirmed: verbally with patient, arm band, provided demographic data and hospital-assigned identification number Time out: Immediately prior to procedure a time out was called to verify the correct patient, procedure, equipment, business support coordinator and site/side marked as required. Fire Risk Assessment Score Procedure site above the Xiphoid 0 Open O2 source (mask/cannula) 1 Ignition source (Cautery, Fiberoptic Light, Laser) 0 Total Fire Risk Assessment Score 1 Preparation: Patient was prepped and draped in the usual sterile fashion. Indications: multiple ABGs and hemodynamic monitoring Location: left radial Anesthesia: local infiltration Anesthesia: Local Anesthetic: lidocaine 1% without epinephrine Anesthetic total: 3 mL Sedation: Patient sedated: no Matt's test normal: yes Needle gauge: 20 Seldinger technique: Seldinger technique used Number of attempts: 1 Post-procedure: line sutured and dressing applied Post-procedure CMS: normal and unchanged Patient tolerance: Patient tolerated the procedure well with no immediate complications Procedure was completed Vital signs stable during the procedure Complications: none Interventions: none Proceduralist: Milton Garcia CNP ESTIMATED BLOOD LOSS: Less than 5 cc FINDINGS: The left Radial artery was palpated and found to be adequate. The site was prepped and draped in sterile fashion, and cleaned with chloraprep solution. 1% lidocaine was injected subcutaneously to anesthetize the area. Using Ultrasound guidance a 20 gauge 1 3/4 arterial catheter was inserted into the left Radial artery using Seldinger technique. Pulsatile flow was noted upon insertion, and arterial waveform was noted on monitor. Line was sutured in place and sterile dressing applied. Armboard placed on patient. Patient tolerated procedure well. POST OPERATIVE DIAGNOSIS: Same as above STEPHEN Cobian 05/21/24 1423 [facility]10-29-2024 History and physical note* Ryan Benitez MD - 05/21/2024 1:35 PM EDT Consultation Note [facility] Critical Care Referring physician: Fabien Rivera Patient - Sharri Murillo Age - 68 y.o. - 1955 Date of Admission - 05/21/2024 12:52 PM Reason for Consultation: Septic shock HPI: Sharri Murillo is a 68 y.o. female who started having dysuria last . Patient was prescribed antibiotics without improvement. Went to emergency room at outside facility complaining of fever, chills, generalized weakness. Patient found to be hypotensive and tachycardic. Patient was given IV fluids and started on Levophed. CT of the abdomen showed left-sided stone with significant hydronephrosis. Patient was given antibiotics and transferred [facility] for further management. Seen and examined at the bedside. Denied any abdominal pain. Continued to feel weak and tired. Had some chills. No chest pain. No shortness of breath. ASSESSMENT 1. Septic shock in the setting of obstructive stone with significant left-sided hydronephrosis 2. Lactic acidosis in the setting of shock 3. Acute kidney injury 4. Hypokalemia 5. Non STEMI in the setting of septic shock 6. Elevated liver enzymes 7. Respiratory insufficiency due to above 8. Obesity with BMI 49.2 PLAN IV hydration Antibiotics with IV Zosyn Levophed to keep map above 65 Central line placement for needs for IV access for pressors. Discussed with the patient at length including risks and benefits Arterial line placement for blood pressure monitoring Urology consult Repeat labs including cardiac enzymes, BNP and lactic acid Repeat septic workup Patient is critically ill Discussed with the patient at the bedside No past medical history on file. No past surgical history on file. Sulfa (sulfonamide antibiotics) Prior to Admission medications Not on File No family history on file. Review of Systems: All 11 systems have been reviewed and are nagetive except as mentioned in History of Present Illness. Exam: VITALS BP 97/63 Temp 37.1 C (98.7 F) (Oral) Ht 172.7 cm (5' 8 ) Wt (!) 147 kg (324 lb) SpO2 91% BMI 49.26 kg/m Temperature Range: Temp (24hrs), Av.1 C (98.7 F), Min:37.1 C (98.7 F), Max:37.1 C (98.7 F) BP Range: Systolic (24hrs), Av , Min:97 , Max:97 Pulse Range: No data recorded Respiration Range: No data recorded Current Pulse Ox: Temp: 37.1 C (98.7 F) 24HR Pulse Ox Range: Temp Av.1 C (98.7 F) Min: 37.1 C (98.7 F) Max: 37.1 C (98.7 F) Oxygen Amount and Delivery: Wt Readings from Last 3 Encounters: 05/21/24 (!) 147 kg (324 lb) I/O (24 Hours) No intake or output data in the 24 hours ending 05/21/24 1335 Physical Exam Awake alert oriented Comfortable no distress Slightly tachycardic Slightly tachypneic Good air entry bilateral No wheezing or crackles Heart rate is normal Soft abdomen. Nontender No significant lower extremity edema Labs Results: Recent Results (from the past 24 hours) Bedside Glucose *Place/Obtain serum glucose if >500(>600 MRH) per glucometer. Collection Time: 05/21/24 1:20 PM Result Value Ref Range Bedside glucose 114 (H) 65 - 99 mg/dL Microbiology Results No results found for the last 168 hours. No results found for: INR , PROTIME Radiology (See actual reports for details) Total critical care time with this patient is 38 minutes, includes complex decision making and not including procedure time The patient is at risk for further clinical decompensation. This patient, with a critical illness, requires constant monitoring and titration of care by a Critical Care Sausage Grinder. Failure to do so may result in further organ system failure, imminent deterioration, or . Ryan Benitez MD [facility] Physicians Pulmonary and Sleep Pulmonary / Critical Care Pager: [phone] Office : [phone] Fax : [phone] 05/21/24 1:35 PM [facility]10-29-2024 History and physical note* Ryan Benitez MD - 05/21/2024 1:35 PM EDT Consultation Note [facility] Critical [facility] Referring physician: Fabien Rivera Patient - Sharri Murillo Age - 68 y.o. - 1955 Date of Admission - 05/21/2024 12:52 PM Reason for Consultation: Septic shock HPI: Sharri Murillo is a 68 y.o. female who started having dysuria last . Patient was prescribed antibiotics without improvement. Went to emergency room at outside facility complaining of fever, chills, generalized weakness. Patient found to be hypotensive and tachycardic. Patient was given IV fluids and started on Levophed. CT of the abdomen showed left-sided stone with significant hydronephrosis. Patient was given antibiotics and transferred [facility] for further management. Seen and examined at the bedside. Denied any abdominal pain. Continued to feel weak and tired. Had some chills. No chest pain. No shortness of breath. ASSESSMENT 1. Septic shock in the setting of obstructive stone with significant left-sided hydronephrosis 2. Lactic acidosis in the setting of shock 3. Acute kidney injury 4. Hypokalemia 5. Non STEMI in the setting of septic shock 6. Elevated liver enzymes 7. Respiratory insufficiency due to above 8. Obesity with BMI 49.2 PLAN IV hydration Antibiotics with IV Zosyn Levophed to keep map above 65 Central line placement for needs for IV access for pressors. Discussed with the patient at length including risks and benefits Arterial line placement for blood pressure monitoring Urology consult Repeat labs including cardiac enzymes, BNP and lactic acid Repeat septic workup Patient is critically ill Discussed with the patient at the bedside No past medical history on file. No past surgical history on file. Sulfa (sulfonamide antibiotics) Prior to Admission medications Not on File No family history on file. Review of Systems: All 11 systems have been reviewed and are nagetive except as mentioned in History of Present Illness. Exam: VITALS BP 97/63 Temp 37.1 C (98.7 F) (Oral) Ht 172.7 cm (5' 8 ) Wt (!) 147 kg (324 lb) SpO2 91% BMI 49.26 kg/m Temperature Range: Temp (24hrs), Av.1 C (98.7 F), Min:37.1 C (98.7 F), Max:37.1 C (98.7 F) BP Range: Systolic (24hrs), Av , Min:97 , Max:97 Pulse Range: No data recorded Respiration Range: No data recorded Current Pulse Ox: Temp: 37.1 C (98.7 F) 24HR Pulse Ox Range: Temp Av.1 C (98.7 F) Min: 37.1 C (98.7 F) Max: 37.1 C (98.7 F) Oxygen Amount and Delivery: Wt Readings from Last 3 Encounters: 05/21/24 (!) 147 kg (324 lb) I/O (24 Hours) No intake or output data in the 24 hours ending 05/21/24 1335 Physical Exam Awake alert oriented Comfortable no distress Slightly tachycardic Slightly tachypneic Good air entry bilateral No wheezing or crackles Heart rate is normal Soft abdomen. Nontender No significant lower extremity edema Labs Results: Recent Results (from the past 24 hours) Bedside Glucose *Place/Obtain serum glucose if >500(>600 MRH) per glucometer. Collection Time: 05/21/24 1:20 PM Result Value Ref Range Bedside glucose 114 (H) 65 - 99 mg/dL Microbiology Results No results found for the last 168 hours. No results found for: INR , PROTIME Radiology (See actual reports for details) Total critical care time with this patient is 38 minutes, includes complex decision making and not including procedure time The patient is at risk for further clinical decompensation. This patient, with a critical illness, requires constant monitoring and titration of care by a Critical Care Sausage Grinder. Failure to do so may result in further organ system failure, imminent deterioration, or . Ryan Benitez MD [facility] Physicians Pulmonary and Sleep Pulmonary / Critical Care Pager: [phone] Office : [phone] Fax : [phone] 05/21/24 1:35 PM documented in [facility] Discharge instructions Patient Education 01/16/2024 12:15:59 Dietary Guidelines [...] about 300 mg of calcium at each meal.Foods that contain 200 500 mg of calcium a serving include: ?8 oz (237 mL) of milk, todsxmm-gdfnzrmiswxi-negwv milk, and calcium- fortifiedfruit juice. Calcium-fortified means that calcium has been [...] the table and allow each person to addtheir own salt to taste. Use vegetable protein, such as beans, textured vegetable protein (TVP), or tofu, instead of meat inpasta, casseroles, and soups. Meal planning Eat less salt, if told by your dietitian. To do this: ?Avoid eating processed or pre-made food. ?Avoid eating fast food. Eat less animal protein, including cheese, meat, poultry, or fish, if told by your dietitian. To dothis: ?Limit the number of times you have meat, poultry, fish, or cheese each week. Eat a diet free of meat at least 2 days a week. ?Eat only one serving each day of meat, poultry, fish, or seafood. ?When you prepare animal proteins, cut pieces into small portion sizes. For most meat and fish, oneserving is about the size of the palm [...] ?Spinach (cooked), rhubarb, beets, sweet potatoes, and Armenian chard. ?Peanuts. ?Potato chips, luxembourger fries, and baked potatoes with skin on. ?Nuts and nut products. ?Chocolate. If you regularly take a diuretic medicine, make sure to eat at least 1 or 2 servings of fruits or vegetables that are high in potassium each day. These include: ?Avocado. ?Banana. ?[place], prune, carrot, or tomato juice. ?Baked potato. [...] magnesium, fish oil, or vitamin B6. Take bhrr-yut-dxjdbeg and prescription medicines only as told by [...] Casseroles. Pizza. Lasagna. Frozen meals. Potato chips. Nicaraguan fries. The items listed above may not be a complete list of foods and beverages you should limit. Contact a dietitian for more information. What foods should I avoid? Talk to your dietitian about specific foods you should avoid based on the type of kidney stones youhave and your overall health. Fruits Grapefruit. The item listed above may not be a complete list of foods and beverages you should avoid. Contact adietitian for more information. Summary Kidney stones are [...] provider. Document Revised: 10/20/2022 Document Reviewed: 10/20/2022 [employer] Patient Education 2022 e[employer]. Follow Up Care 08/10/2022 15:34:44 With:THUY CAMPBELL PA-C, URL Address: [address] [place] [address] When: Unknown [facility] evaluation + Plan note Future Appointments Appointment Date:01/10/2024 03:00:00 PM Scheduled Provider:THUY CAMPBELL PA-C Location:[facility] Appointment Type:URO Office Visit Diagnostic Tests Pending * Urine Culture 08/10/22 [facility] [place] [facility] Other Evaluation noteNo assessment information available [facility] Work Phone: Evaluation note* Diagnosis Onset Date Resolution Status Influenza B noneactiveBronchitisacute [facility] Work Phone: evaluation note* Diagnosis Onset Date Resolution Status Hypertension acuteScreening mammogram for breast canceracute [facility] Work Phone: Evaluation note* Diagnosis Calculus of ureterovesical junction (UVJ)- Primary Hypokalemia- Primary Hypopotassemia Calculus of ureterovesical junction (UVJ) Calculus of ureterovesical junction (UVJ) documented in this encounter [facility] System[facility]* Diagnosis Flank pain- Primary Abdominal pain, unspecified site documented in this encounter [facility]* Diagnosis Septic shock (CMS-HCC)- Primary Septic shock ([facility]-HCC) E coli bacteremia Nephrolithiasis Calculus of kidney documented in this encounter [facility]* Diagnosis Calculus of ureterovesical junction (UVJ)- Primary Septic shock (CMS-HCC) Bacteremia- Primary Septic shock (CMS-HCC) Calculus of ureterovesical junction (UVJ) documented [facility]* Diagnosis Calculus of ureterovesical junction (UVJ)- Primary documented in this encounter [facility]* Diagnosis Kidney stones- Primary Calculus of kidney Pelvicaliectasis Other specified disorder of kidney and ureter Kidney stone Calculus of kidney documented in this encounter [facility]* Diagnosis Kidney stones- Primary Calculus of kidney Pelvicaliectasis Other specified disorder of kidney and ureter Kidney stone Calculus of kidney 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 Kidney stone Calculus of kidney documented in this encounter [facility]* Diagnosis Kidney stones- Primary Calculus of kidney Pelvicaliectasis Other specified disorder of kidney and ureter Kidney stone Calculus of kidney 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 * E. coli Infection (Belarusian) documented in this encounterProMary [facility] SystemInstructionsNot on file documented in this encounterProD[facility] SystemInstructionsNot on file documented in this encounterProDale [facility] Center [facility] SystemInstructionsNot on file documented in this encounterProMary Rut[facility] Hospital SystemInstructionsNot on file documented in this encounterProMary [facility] SystemInstructionsNot on file documented in this encounterProDale Medical Center [employer] SystemInstructionsNot on file documented in this encounterProMary Rutan Hospital SystemInstructionsNot on file documented in this encounterKettering Health [facility] SystemInstructions* Attachments The following attachments cannot be sent through Care Everywhere. * Kidney Stone Diet (Belarusian) documented in this encounterProDale Medical Center [employer] SystemInstructionsNot on file documented in this encounterProDale Medical Center [employer] SystemInstructionsNot on file documented in this encounterProDale Medical Center [employer] SystemProgress note No data available for this section [facility] HospitalReason for referral (narrative)* Misc (Routine) - Pending ReviewSpecialtyDiagnoses / ProceduresReferred By ContactReferred To Contact Procedures Adult diet Tabby Iqbal MD [address] [place] [address] Phone: tel: fax: Referral IDStatusReasonStart DateExpiration DateVisits RequestedVisits [id number]/ [facility] for referral (narrative)No reason for referral information availableAdams County Hospital Work Phone: Reason for visit Narrative* Auth/Cert (Routine) SpecialtyDiagnoses / ProceduresReferred By ContactReferred To Contact Diagnoses Septic shock ([facility]-H[facility]) Elevated troponin [place] [address] [place] [address], [address] [place] [address] Phone: tel: fax: Referral Frederick DateExpiration DateVisits RequestedVisits [id number] [facility] Summary Purpose Family History No Family History Records Found Relationship Condition Age at Onset Recorded Date/T blayne father History of malignant neoplasm of prostate Unknown DeceasedUnknownMalignant neoplasmUnknownNot SpecifiedDeceasedUnknownDiabetes mellitusUnknownHypertensionUnknown Relationship Condition Age at Onset Recorded Date/T blayne father History of malignant neoplasm of prostate Unknown DeceasedUnknownMalignant neoplasmUnknownmotherDeceasedUnknownDiabetes mellitus UnknownHypertensionUnknown Advance Directives No Advanced Directives Records Found Advance Directive Response Recorded Date/ Time Advance Directives No August 4:03pm Date ActivatedDate YtyxzibsolxIccgsdtd95/5/2024 7:46 PM06/28/2024 9:02 PMDate ActivatedDate TunqouugbhqApgmrjmb92/29/2024 1:36 PM05/26/2024 7:56 PMDate ActivatedDate RmicddeejemClkhojei93/5/2024 7:46 PM06/28/2024 9:02 PMDate ActivatedDate ByopqdgoyovQiawaabb33/29/2024 1:36 PM05/26/2024 7:56 PM Advance Directive Response Recorded Date/ Time Advance Directives No August 3:03pm Date ActivatedDate VdzfziilcwmRolijshm24/29/2024 1:36 PMDate ActivatedDate XdzmlqvfjvmKnackhcl09/29/2024 1:36 PMDate ActivatedDate InactivatedComments 05/21/2024 1:36 PM05/26/2024 7:56 PMDate ActivatedDate InactivatedComments 05/21/2024 1:36 PM05/26/2024 7:56 PM Chief Complaint and Reason for Visit Chief Complaint head cold, cough Chief Complaint head cold, cough CoughReason for VisitInfluenza B Bronchitis Chief Complaint Wellness Reason for Visit Hypertension Screening mammogram for breast cancer Chief Complaint Admit Date Amb Documentation May 27, 2024 8 :57am Inpatient Hosp f/u sepsis May 30, 2024 2:12pm Chest Heaviness/Powell August 16, 2024 1:45pm Reason for Visit Admit Date Elevated liver function tests May 302023 2:12pm Sepsis May 30, 2024 2 :12pm Chief Complaint Admit Date Screening April 08, 2025 8:27am Additional Source Comments INFORMATION SOURCE (unrecogn ized section and content) DATE CREATED AUTHOR 02/27/2021 [facility] DATE CREATED AUTHOR AUTHOR'S ORGANIZ ATION 08/09/2022 [facility] DATE CREATED AUTHOR AUTHOR'S ORGANIZ ATION 09/12/2024 [facility] DATE CREATED AUTHOR AUTHOR'S ORGANIZ ATION 12/22/2024 [facility] DATE CREATED AUTHOR AUTHOR'S ORGANIZ ATION 02/09/2025 [facility] DATE CREATED AUTHOR AUTHOR'S ORGANIZ ATION 04/09/2025 [facility] DATE CREATED AUTHOR AUTHOR'S ORGANIZ ATION 04/18/2025 [facility] Patient Care team informatio n (unrecognized section and content) Team Status: Active Member Role Status Dates Olman Shoemaker MD Primary Care Provider Active Team Status: Inactive Member Role Status Dates Olman Shoemaker MD Primary Care Provider Active Start: April 08, 2025 End: April 08, 2025[facility] WaxhawAttending ProviderActiveStart: April 08, 2025 End: April 08, 2025 Team Status: Active Member Role Status Dates Olman Shoemaker MD Primary Care Provider Active Start: May 21, 2024 Senia Jalloh DOAttending ProviderActiveStart: May 21, 2024 Team Status: Active Member Role Status Dates Olman Shoemaker MD Primary Care Provider Active Start: May 21, 2024 Edenilson Mccray DOAttending ProviderActiveStart: May 21, 2024 Team Status: Active Member Role Status Dates Olman Shoemaker MD Primary Care Provider Active Start: May 27, 2024 Bryanna Coronel [facility] ProviderActiveStart: May 27, 2024 Team Status: Inactive Member Role Status Dates Olman Shoemaker MD Primary Care Provide r, Attending Provider Active Start: May 30, 2024 End: May 30, 2024 Team Status: Inactive Member Role Status Dates Olman Shoemaker MD Primary Care Provide r, Attending Provider Active Start: August 16, 2024 End: August 16, 2024 Team Status: Inactive Member Role Status Dates Olman Shoemaker MD Primary Care Provider Active Start: October 14, 2023 End: October 13Rhonda Tucker ProviderActiveStart: October 14, 2023 End: October 14, 2023 Team Status: Inactive Member Role Status Dates Olman Shoemaker MD Primary Care Provider Active Start: October 25, 2023 End: October 25, 2023Thuy Chaney APRN NEGOTIATOR SALES-CAttending ProviderActive Start: October 25, 2023 End: October 25, 2023 Team Status: Inactive Member Role Status Dates Olman Shoemaker MD Primary Care Provide r, Attending Provider Active Start: May 16, 2024 End: May 16, 2024Team MemberRelationshipSpecialtyStart [place] [address] [place] [address] PCP - [facility]ally Ssfmliiq67/29/24Team MemberRelationshipSpecialtyStart [place] [address] [place], [place] [id number] PCP - GeneralFamily Hysnxbrd54/29/24Team MemberRelationshipSpecialtyStart [place] [address] [place], [place] [id number] PCP - Generalmily Tpmavhwq81/29/24Team MemberRelationshipSpecialtyStart [place] [address] [place], [place] [id number] [facility] - [facility] Ceamrhvc78/29/24Team MemberRelationshipSpecialtyStart Date End Date Olman Shoemaker MD [address] [place] [address] [facility] - [facility] Ezdpozbf28/29/24Te MemberRelationshipSpecialtyStart Date End Date Olman Shoemaker MD [address] [place] [address] PCP - [facility]05/21/24Team MemberRelationshipSpecialtyStart Date End Date Olman Shoemaker MD [address] [place] [address] PCP - [facility]05/21/24Te MemberRelationshipSpecialtyStart Date End Date Olman Shoemaker MD [address] [place] [address] PCP - [facility]05/21/24Te MemberRelationshipSpecialtyStart Date End Date Olman Shoemaker MD [address] [place] [address] PCP - [facility]05/21/24Te MemberRelationshipSpecialtyStart Date End Date Olman Shoemaker MD [address] [place] [address] PCP - [facility]05/21/24 REASON FOR VISIT (unrecogniz ed section and content) LnnvxxVeneonqyRenekb-vpVjfplpTcvmofukIuyune-gd Goals (unrecognized section and content) Goals may be documented in a n alternate section Scheduled Active and Recently Administ ered Medications (unrecognized section and content) Medication Order//09/2023 cefTRIAXone (ROCEPHIN) 2,000 mg in sodium chloride 0.9 % 50 mL IVPB-MBP 2,000 mg, intravenous, at 100 mL/hr, Administer over 30 Minutes, Every 24 hours, First dose on Mon05/22/24 at 1100, ADD-VANTAGE/MBP- Discard 8 hours after activating; dissolve drug prior to administration Look-alike/sound-alike medication - verify indication for use. Do not co-administer with calcium- containing solutions such as Lactated Ringers., Indication: Bacteremia * 1150 (New Bag - Provider: Jill Mays RN) * 1220 (Stop Bag - Provider: Lance Aaron RN) * 1152 (New Bag - Provider: Disha Mckeon RN) * 1222 (Stop Bag - Provider: Disha Mckeon RN) * 1102 (New Bag - Provider: Disha Mckeon RN) * 1132 (Stop Bag - Provider: Disha Mckeon RN) cholecalciferol (vitamin D3) tablet 2,000 Units 2,000 Units, oral, Daily, First dose on Mon05/23/24 at 2100 * 0938 (Given - Provider: Disha Mckeon RN) * 0927 (Given - Provider: Disha Mckeon RN) gabapentin (NEURONTIN) capsule 100 mg 100 mg, oral, 3 times daily, First dose on Mon05/22/24 at 0830, Look-alike/sound-alike medication - verify indication for use. * 0633 (Given - Provider: Keysha Woody RN) * 1439 (Given - Provider: Lance Aaron RN) * 2137 (Given - Provider: Kimberly Sauceda, MINNIE) * 0509 (Given - Provider: Kimberly Sauceda, RN) * 1336 (Given - Provider: Disha Mckeon RN) * 2102 (Given - Provider: Delilah Becerra, RN) * 0556 (Given - Provider: Delilah Becerra, RN) * 1400 (Not Given - Provider: Disha Mckeon RN - Reason: Other) * 2200 (Due) heparin (porcine) injection 5,000 Units 5,000 Units, subcutaneous, Every 8 hours scheduled, First dose on Mon05/22/24 at 0600, Look-alike/sound-alike medication - verify indication for use. Observe for bleeding. * 0535 (Given - Provider: Keysha Woody RN) * 1439 (Given - Provider: Lance Aaron RN) * 2137 (Given - Provider: Kimberly Sauceda, RN) * 0508 (Given - Provider: Kimberly Sauceda, RN) * 1337 (Given - Provider: Disha Mckeon RN) * 2103 (Given - Provider: Delilah Becerra RN) * 0556 (Given - Provider: Delilah Becerra RN) * 1400 (Not Given - Provider: Disha Mckeon RN - Reason: Patient/family refused) * 2200 (Due) meloxicam (MOBIC) tablet 15 mg 15 mg, oral, Daily, First dose on Nathalia 05/23/24 at 2100 * 0938 (Given - Provider: Disha Mckeon RN) * 0927 (Given - Provider: Disha Mckeon RN) wcborykw-kwpu-[place]-calcium &mins (THERAGRAN-M) 9 mg iron-400 mcg tablet 1 tablet 1 tablet, oral, Daily, First dose on Nathalia 05/23/24 at 2100 * 0938 (Given - Provider: Disha Mckeon RN) * 0927 (Given - Provider: Disha Mckeon RN) sodium chloride 0.9 % flush 10 mL(Linked Group 1) 10 mL, intravenous, Every 12 hours, First dose on 05/25/24 at 1215, PICC line. Administer 10 mL per lumen; 10 mL total (for single lumen flush) * 1352 (Given - Provider: Disha Mckeon RN) * 0030 (Given - Provider: Delilah Becerra RN - Comment: midline) * 1103 (Given - Provider: Disha Mckeon RN) * 1215 (Canceled Entry - Provider: Disha Mckeon RN) valACYclovir (VALTREX) tablet 500 mg 500 mg, oral, 2 times daily, First dose on 05/25/24 at 1215, Look-alike/sound-alike medication -verify indication for use., Indication: Mucocutaneous HSV * 1351 (Given - Provider: Disha Mckeon RN) * 2102 (Given - Provider: Delilah Becerra RN) * 0927 (Given - Provider: Disha Mckeon RN) * 2100 (Due) Medication Order//09/2023 acetaminophen (TYLENOL) 650 mg/20.3 mL solution 650 mg(Linked Group 2) 650 mg, nasogastric, Every 6 hours PRN, mild pain - pain scale 1-3, headaches, Starting on Mon05/21/24 at 1719 acetaminophen (TYLENOL) tablet 650 mg(Linked Group 2) 650 mg, oral, Every 6 hours PRN, mild pain - pain scale 1-3, headaches, Starting on Mon05/21/24 [id number], Indications: fever, pain bisacodyL (DULCOLAX) suppository 10 mg 10 mg, rectal, Daily PRN, constipation, Constipation if polyethylene glycol is ineffective or patient is unable to take oral medications, Starting on Mon05/21/24 at 1333, Look-alike/sound-alike medication - verify indication for use. calcium gluconate 3,000 mg in sodium chloride 0.9 % 100 mL IVPB(Linked Group 3) 3,000 mg, intravenous, at 130 mL/hr, Administer over 60 Minutes, As needed, for ionized calcium level less than 3 mg/dL, Starting on Mon05/21/24 at 1326, CALL PHYSICIAN if this dose is administered.Recheck ionized calcium 6 hours after infusion. Hold calcium replacement for phosphorus greater than 5.5 mg/dL. VESICANT (RED) calcium gluconate IVPB 1000 mg/50 mL (20 mg/mL premix)(Linked Group 3) 1,000 mg, intravenous, at 50 mL/hr, Administer over 60 Minutes, As needed, for ionized calcium level 3.5 to 4.4 mg/dL, Starting on Mon05/21/24 at 1326, Recheck ionized calcium 6 hours after infusion. Hold calcium replacement for phosphorus greater than 5.5 mg/dL. VESICANT (RED) calcium gluconate IVPB 2000 mg/100 mL (20 mg/mL premix)(Linked Group 3) 2,000 mg, intravenous, at 100 mL/hr, Administer over 60 Minutes, As needed, for ionized calcium level 3 to 3.4 mg/dL, Starting on Mon05/21/24 at 1326, Recheck ionized calcium 6 hours after infusion.Hold calcium replacement for phosphorus greater than 5.5 mg/dL. VESICANT (RED) dextrose (GLUTOSE) 40 % gel 15 g 15 g, oral, As needed, low blood sugar, blood glucose less than 70 mg/dL, Starting on Mon05/21/24 at 1325, If patient conscious and taking PO. If blood glucose is not greater than 70 mg/dL after initial treatment, repeat treatment. dextrose 50 % in water (D50W) 50% solution 25 mL 25 mL, intravenous, As needed, low blood sugar, blood glucose less than 70 mg/dL and unconscious orNPO with IV access, Starting on Mon05/21/24 at 1325, Push over 1-3 minutes STAT. If conscious and not NPO, immediately follow with meal tray or high protein (7 grams) snack if tray not available. IfNPO, initiate 5% dextrose in water at 100 mL/hr and contact prescriber for additional orders. If blood glucose is not greater than 70 mg/dL after initial treatment, repeat treatment. VESICANT (RED) Warning: HYPERTONIC solution. glucagon HCL injection 1 mg 1 mg, intramuscular, As needed, low blood sugar, blood glucose less than 70 mg/dL and unconscious or NPO without IV access., Starting on Mon05/21/24 at 1325, If conscious and not NPO, immediately follow with meal tray or high protein (7Grams) snack if tray not available. If NPO, initiate IV 5% Dext jaimee/Water at 100 mL/hr and contact prescriber for additional orders. If blood glucose is not greater than 70 mg/dL after initial treatment, repeat treatment. magnesium sulfate IVPB 2000 mg/50 mL in iso-osmotic water (40 mg/mL premix) (Linked Group 4) 2,000 mg, intravenous, at 25 mL/hr, Administer over 120 Minutes, As needed, for magnesium level 1.7to 1.9 mg/dL or ionized magnesium level 0.45 to 0.5 mmol/L, Starting on Mon05/21/24 at 1326, Use premix solution. Default to ionized magnesium level in cases where patient has both magnesium and ionized magnesium results. If administered, check ionized magnesium (or total magnesium if ionized magnesium unavailable) level 4 hours after infusion. * 0637 (New Bag - Provider: Keysha Woody RN) * 0837 (Stop Bag - Provider: Lance Aaron RN) * 0507 (New Bag - Provider: Kimberly Sauceda, RN) * 0707 (Stop Bag - Provider: Disha Mckeon, MINNIE) * 0433 (New Bag - Provider: Delilah Becerra, MINNIE) * 0633 (Due: Stop Bag - Provider: Delilah Becerra RN) magnesium sulfate IVPB 4000 mg/100 mL in iso-osmotic water (40 mg/mL premix) (Linked Group 4) 4,000 mg, intravenous, at 25 mL/hr, Administer over 240 Minutes, As needed, for magnesium level 1.6mg/mL or less, or ionized magnesium level 0.44 mmol/L or less, Starting on Mon05/21/24 at 1326, Use premix solution. Default to ionized magnesium level in cases where patient has both magnesium and ionized magnesium results. If administered, check ionized magnesium (or total magnesium if ionized magnesium unavailable) level 4 hours after infusion. * 0637 (See Alternative - Provider: Keysha Woody RN) * 0837 (See Alternative - Provider: Lance Aaron RN) * 0507 (See Alternative - Provider: Kimberly Sauceda, MINNIE) * 0707 (See Alternative - Provider: Disha Mckeon, MINNIE) * 0433 (See Alternative - Provider: Delilah Becerra, MINNIE) oxyCODONE (ROXICODONE) immediate release tablet 5 mg 5 mg, oral, Every 4 hours PRN, severe pain - pain scale 7-10, Starting on Mon05/22/24 at 0827, Look-alike/sound-alike medication - verify indication for use. Immediate release. polyethylene glycol (GLYCOLAX) packet 17 g 17 g, oral, Daily PRN, constipation, Starting on Mon05/21/24 at 1333, Look-alike/sound-alike medication - verify indication for use. Dissolve 1 packet (17 gm) in 8 ounces of water, juice, soda, coffee or tea. potassium chloride (K-TAB,KLOR-CON) CR tablet 20-50 mEq(Linked Group 5) 20-50 mEq, oral, As needed, for potassium replacement, Starting on Mon05/21/24 at 1325, Progress to oral potassium replacement when patient tolerating oral intake. If dose administered, recheck potassium level 4 hours after last dose. For potassium level 3.4 to 3.8 mmol/L and Serum Creatinine 1.2 or less=30 mEq. For potassium level 3.1 to 3.3 mmol/L and Serum Creatinine 1.2 or less=40 mEq. For potassium level 3 mmol/L or less and Serum Creatinine 1.2 or less=50 mEq. For potassium level 3.4 to 3.8 mmol/L and Serum Creatinine greater than 1.2=20 mEq. For potassium level 3.1 to 3.3 mmol/L and Serum Creatinine greater than 1.2=30 mEq. For potassium level 3 mmol/L or less and Serum Creatinine greater than 1.2=40 mEq. Do not crush or chew. * 0633 (Given - Provider: Keysha Woody RN) * 0509 (Given - Provider: Kimberly Sauceda RN) potassium chloride (KAYCIEL) 20 mEq/15 mL solution 20-50 mEq(Linked Group 5) 20-50 mEq, oral, As needed, potassium replacement, Starting on Mon05/21/24 at 1325, Progress to oral potassium replacement when patient tolerating oral intake. If dose administered, recheck potassium level 4 hours after last dose. For potassium level 3.4 to 3.8 mmol/L and Serum Creatinine 1.2 or less=30 mEq (22.5mL). For potassium level 3.1 to 3.3 mmol/L and Serum Creatinine 1.2 or less=40 mEq (30mL). For potassium level 3 mmol/L or less and Serum Creatinine 1.2 or less=50 mEq (37.5mL). For potassium level 3.4 to 3.8 mmol/L and Serum Creatinine greater than 1.2=20 mEq (15mL). For potassium level 3.1 to 3.3 mmol/L and Serum Creatinine greater than 1.2=30 mEq (22.5mL). For potassium level 3 m mol/L or less and Serum Creatinine greater than 1.2=40 mEq (30mL). Must dilute before use - Mix in 3-8 ounces of water or juice before administration When administering in feeding tube, flush before and after per policy and monitor potassium levels * 0633 (See Alternative - Provider: Keysha Woody RN) * 0509 (See Alternative - Provider: Kimberly Sauceda RN) potassium chloride IVPB 10 mEq/100 mL in water (0.1 mEq/mL premix)(Linked Group 6) 10 mEq, intravenous, at 100 mL/hr, Administer over 60 Minutes, As needed, for potassium replacement, Starting on Mon05/21/24 at 1325, Administer Potassium Chloride IVPB in 10 mEq increments. Maximuminfusion rates: Central Line = 20 mEq/hour; Peripheral Line = 10 mEq/hour (10 mEq/100 mL). If dose administered, recheck potassium level 1 hour after infusion complete. For potassium level 3.4 to 3.8mmol/L and Serum Creatinine 1.2 or less = 30 mEq For potassium level 3.1 to 3.3 mmol/L and Serum Creatinine 1.2 or less = 40 mEq For potassium level 3 mmol/L or less and Serum Creatinine 1.2 or less = 50 mEq For potassium level 3.4 to 3.8 mmol/L and Serum Creatinine greater than 1.2 = 20 mEq For potassium level 3.1 to 3.3 mmol/L and Serum Creatinine greater than 1.2 = 30 mEq For potassium level 3mmol/L or less and Serum Creatinine greater than 1.2 = 40 mEq VESICANT (YELLOW) Infuse each 10 mEq over a minimum of 1 hour. potassium chloride IVPB 10 mEq/50 mL in water (0.2 mEq/mL premix)(Linked Group 6) 10 mEq, intravenous, at 50 mL/hr, Administer over 1 Hours, As needed, for potassium replacement, Starting on Mon05/21/24 at 1325, Administer Potassium Chloride IVPB in 10 mEq increments. Maximum infusion rates: Central Line = 20 mEq/hour. Administer via Central Line Only. If dose administered, recheck potassium level 1 hour after infusion complete. For potassium level 3.4 to 3.8 mmol/L and SerumCreatinine 1.2 or less = 30 mEq For potassium level 3.1 to 3.3 mmol/L and Serum Creatinine 1.2 or less = 40 mEq For potassium level 3 mmol/L or less and Serum Creatinine 1.2 or less = 50 mEq For potassium level 3.4 to 3.8 mmol/L and Serum Creatinine greater than 1.2 = 20 mEq For potassium level 3.1to 3.3 mmol/L and Serum Creatinine greater than 1.2 = 30 mEq For potassium level 3 mmol/L or less and Serum Creatinine greater than 1.2 = 40 mEq VESICANT (YELLOW) sod phos di, mono-K phos mono (K-PHOS NEUTRAL) 250 mg tablet 2 tablet(Linked Group 7) 2 tablet, oral, As needed, for phosphorous level 2.3 mg/dL or less, Starting on Mon05/21/24 at 1326, If dose administered, recheck phosphorus level 4 hours after last dose. Look-alike/sound-alike medication - verify indication for use. Give with a full glass of water. sodium chloride 0.9 % flush 10 mL(Linked Group 1) 10 mL, intravenous, As needed, line care, Starting on 05/25/24 at 1212, PICC line. Administer 10mL to each lumen before and after each use. Administer 10 mL per lumen; 10 mL total (for single lumen flush) * 0430 (Given - Provider: Delilah Becerra RN) sodium chloride 0.9 % flush 20 mL(Linked Group 1) 20 mL, intravenous, As needed, line care, Starting on 05/25/24 at 1212, PICC line. Administer 20mL to each lumen after lab draws, blood infusion, and meds known to precipitate. Administer 20 mL per lumen; 20 mL total (for single lumen flush) * 0302 (Given - Provider: Delilah Becerra RN) sodium chloride 0.9 % infusion 10 mL/hr, intravenous, Continuous PRN, to maintain patency of lines, Starting on Mon05/21/24 at 1325, For 1 day, Line #3 sodium phosphate 20 mmol in sodium chloride 0.9 % 100 mL IVPB(Linked Group 7) 20 mmol, intravenous, at 26.7 mL/hr, Administer over 4 Hours, As needed, for phosphorous level 2.3 mg/dL or less, Starting on Mon05/21/24 at 1326, Administer over 4 hours via dedicated line(central line). If administered, recheck phosphorus level 4 hours after infusion complete. Infuse using central line access. sodium phosphate 20 mmol in sodium chloride 0.9 % 250 mL IVPB(Linked Group 7) 20 mmol, intravenous, at 42.8 mL/hr, Administer over 6 Hours, As needed, for phosphorous level 2.3 mg/dL or less, Starting on Mon05/21/24 at 1326, Administer over 6 hours via dedicated line (peripheral line). If administered, recheck phosphorus level 4 hours after infusion complete. SUMAtriptan (IMITREX) tablet 25 mg 25 mg, oral, Once as needed, migraine, Starting on Nathalia 05/23/24 at 2017, May repeat dose once in 2 hours if unresolved. Do not exceed 200 mg in 24 hours. Look-alike/sound-alike medication - verify indication for use. Look-alike/sound-alike medication - verify indication for use. Order Group 1: Consult PICC nurse - Midline () Reason for consult? Insert Midline IV, Indication: Duration of therapy 14 days or less, Number of Lumen(s): 1 Lumen, Midline IV for Rocephin to continue through June 04, 2024 And sodium chloride 0.9 % flush 10 mLJump to med 10 mL, intravenous, Every 12 hours, First dose on 05/25/24 at 1215, PICC line. Administer 10 mL per lumen; 10 mL total (for single lumen flush) And sodium chloride 0.9 % flush 10 mLJump to med 10 mL, intravenous, As needed, line care, Starting on 05/25/24 at 1212, PICC line. Administer 10mL to each lumen before and after each use. Administer 10 mL per lumen; 10 mL total (for single lumen flush) And sodium chloride 0.9 % flush 20 mLJump to med 20 mL, intravenous, As needed, line care, Starting on 05/25/24 at 1212, PICC line. Administer 20mL to each lumen after lab draws, blood infusion, and meds known to precipitate. Administer 20 mL per lumen; 20 mL total (for single lumen flush) Group 2: acetaminophen (TYLENOL) tablet 650 mgJump to med 650 mg, oral, Every 6 hours PRN, mild pain - pain scale 1-3, headaches, Starting on Mon05/21/24 [id number], Indications: fever, pain Or acetaminophen (TYLENOL) 650 mg/20.3 mL solution 650 mgJump to med 650 mg, nasogastric, Every 6 hours PRN, mild pain - pain scale 1-3, headaches, Starting on Mon05/21/24 at 1719 Group 3: calcium gluconate IVPB 1000 mg/50 mL (20 mg/mL premix)Jump to med 1,000 mg, intravenous, at 50 mL/hr, Administer over 60 Minutes, As needed, for ionized calcium level 3.5 to 4.4 mg/dL, Starting on Mon05/21/24 at 1326, Recheck ionized calcium 6 hours after infusion. Hold calcium replacement for phosphorus greater than 5.5 mg/dL. VESICANT (RED) Or calcium gluconate IVPB 2000 mg/100 mL (20 mg/mL premix)Jump to med 2,000 mg, intravenous, at 100 mL/hr, Administer over 60 Minutes, As needed, for ionized calcium level 3 to 3.4 mg/dL, Starting on Mon05/21/24 at 1326, Recheck ionized calcium 6 hours after infusion.Hold calcium replacement for phosphorus greater than 5.5 mg/dL. VESICANT (RED) Or calcium gluconate 3,000 mg in sodium chloride 0.9 % 100 mL IVPBJump to med 3,000 mg, intravenous, at 130 mL/hr, Administer over 60 Minutes, As needed, for ionized calcium level less than 3 mg/dL, Starting on Mon05/21/24 at 1326, CALL PHYSICIAN if this dose is administered.Recheck ionized calcium 6 hours after infusion. Hold calcium replacement for phosphorus greater than 5.5 mg/dL. VESICANT (RED) Group 4: magnesium sulfate IVPB 2000 mg/50 mL in iso-osmotic water (40 mg/mL premix)Jump to med 2,000 mg, intravenous, at 25 mL/hr, Administer over 120 Minutes, As needed, for magnesium level 1.7to 1.9 mg/dL or ionized magnesium level 0.45 to 0.5 mmol/L, Starting on Mon05/21/24 at 1326, Use premix solution. Default to ionized magnesium level in cases where patient has both magnesium and ionized magnesium results. If administered, check ionized magnesium (or total magnesium if ionized magnesium unavailable) level 4 hours after infusion. Or magnesium sulfate IVPB 4000 mg/100 mL in iso-osmotic water (40 mg/mL premix)Jump to med 4,000 mg, intravenous, at 25 mL/hr, Administer over 240 Minutes, As needed, for magnesium level 1.6mg/mL or less, or ionized magnesium level 0.44 mmol/L or less, Starting on Mon05/21/24 at 1326, Use premix solution. Default to ionized magnesium level in cases where patient has both magnesium and ionized magnesium results. If administered, check ionized magnesium (or total magnesium if ionized magnesium unavailable) level 4 hours after infusion. Group 5: potassium chloride (K-TAB,KLOR-CON) CR tablet 20-50 mEqJump to med 20-50 mEq, oral, As needed, for potassium replacement, Starting on Mon05/21/24 at 1325, Progress to oral potassium replacement when patient tolerating oral intake. If dose administered, recheck potassium level 4 hours after last dose. For potassium level 3.4 to 3.8 mmol/L and Serum Creatinine 1.2 or less=30 mEq. For potassium level 3.1 to 3.3 mmol/L and Serum Creatinine 1.2 or less=40 mEq. For potassium level 3 mmol/L or less and Serum Creatinine 1.2 or less=50 mEq. For potassium level 3.4 to 3.8 mmol/L and Serum Creatinine greater than 1.2=20 mEq. For potassium level 3.1 to 3.3 mmol/L and Serum Creatinine greater than 1.2=30 mEq. For potassium level 3 mmol/L or less and Serum Creatinine greater than 1.2=40 mEq. Do not crush or chew. Or potassium chloride (KAYCIEL) 20 mEq/15 mL solution 20-50 mEqJump to med 20-50 mEq, oral, As needed, potassium replacement, Starting on Mon05/21/24 at 1325, Progress to oral potassium replacement when patient tolerating oral intake. If dose administered, recheck potassium level 4 hours after last dose. For potassium level 3.4 to 3.8 mmol/L and Serum Creatinine 1.2 or less=30 mEq (22.5mL). For potassium level 3.1 to 3.3 mmol/L and Serum Creatinine 1.2 or less=40 mEq (30mL). For potassium level 3 mmol/L or less and Serum Creatinine 1.2 or less=50 mEq (37.5mL). For potassium level 3.4 to 3.8 mmol/L and Serum Creatinine greater than 1.2=20 mEq (15mL). For potassium level 3.1 to 3.3 mmol/L and Serum Creatinine greater than 1.2=30 mEq (22.5mL). For potassium level 3 m mol/L or less and Serum Creatinine greater than 1.2=40 mEq (30mL). Must dilute before use - Mix in 3-8 ounces of water or juice before administration When administering in feeding tube, flush before and after per policy and monitor potassium levels Group 6: potassium chloride IVPB 10 mEq/50 mL in water (0.2 mEq/mL premix)Jump to med 10 mEq, intravenous, at 50 mL/hr, Administer over 1 Hours, As needed, for potassium replacement, Starting on Mon05/21/24 at 1325, Administer Potassium Chloride IVPB in 10 mEq increments. Maximum infusion rates: Central Line = 20 mEq/hour. Administer via Central Line Only. If dose administered, recheck potassium level 1 hour after infusion complete. For potassium level 3.4 to 3.8 mmol/L and SerumCreatinine 1.2 or less = 30 mEq For potassium level 3.1 to 3.3 mmol/L and Serum Creatinine 1.2 or less = 40 mEq For potassium level 3 mmol/L or less and Serum Creatinine 1.2 or less = 50 mEq For potassium level 3.4 to 3.8 mmol/L and Serum Creatinine greater than 1.2 = 20 mEq For potassium level 3.1to 3.3 mmol/L and Serum Creatinine greater than 1.2 = 30 mEq For potassium level 3 mmol/L or less and Serum Creatinine greater than 1.2 = 40 mEq VESICANT (YELLOW) Or potassium chloride IVPB 10 mEq/100 mL in water (0.1 mEq/mL premix)Jump to med 10 mEq, intravenous, at 100 mL/hr, Administer over 60 Minutes, As needed, for potassium replacement, Starting on Mon05/21/24 at 1325, Administer Potassium Chloride IVPB in 10 mEq increments. Maximuminfusion rates: Central Line = 20 mEq/hour; Peripheral Line = 10 mEq/hour (10 mEq/100 mL). If dose administered, recheck potassium level 1 hour after infusion complete. For potassium level 3.4 to 3.8mmol/L and Serum Creatinine 1.2 or less = 30 mEq For potassium level 3.1 to 3.3 mmol/L and Serum Creatinine 1.2 or less = 40 mEq For potassium level 3 mmol/L or less and Serum Creatinine 1.2 or less = 50 mEq For potassium level 3.4 to 3.8 mmol/L and Serum Creatinine greater than 1.2 = 20 mEq For potassium level 3.1 to 3.3 mmol/L and Serum Creatinine greater than 1.2 = 30 mEq For potassium level 3mmol/L or less and Serum Creatinine greater than 1.2 = 40 mEq VESICANT (YELLOW) Infuse each 10 mEq over a minimum of 1 hour. Group 7: sodium phosphate 20 mmol in sodium chloride 0.9 % 250 mL IVPBJump to med 20 mmol, intravenous, at 42.8 mL/hr, Administer over 6 Hours, As needed, for phosphorous level 2.3 mg/dL or less, Starting on Mon05/21/24 at 1326, Administer over 6 hours via dedicated line (peripheral line). If administered, recheck phosphorus level 4 hours after infusion complete. Or sodium phosphate 20 mmol in sodium chloride 0.9 % 100 mL IVPBJump to med 20 mmol, intravenous, at 26.7 mL/hr, Administer over 4 Hours, As needed, for phosphorous level 2.3 mg/dL or less, Starting on Mon05/21/24 at 1326, Administer over 4 hours via dedicated line(central line). If administered, recheck phosphorus level 4 hours after infusion complete. Infuse using central line access. Or sod phos di, mono-K phos mono (K-PHOS NEUTRAL) 250 mg tablet 2 tabletJump to med 2 tablet, oral, As needed, for phosphorous level 2.3 mg/dL or less, Starting on Mon05/21/24 at 1326, If dose administered, recheck phosphorus level 4 hours after last dose. Look-alike/sound-alike medication - verify indication for use. Give with a full glass of water. FOR RECORDS PERTAINING TO PATIENTS WHO ARE [...] BE BASED ON THE PRIMARY CLINICAL RECORDS. [facility] [employer] [facility]. provides no warranty or guarantee of the accuracy or completeness of information in this document.
== END 2025-05-20 10:52 | disposition home or self-care (01) ==
LOC: RAD 10:56
PROVIDERS: PCP Family Medicine; Visit Provider Family Medicine
DX: M54.16 Radiculopathy, lumbar region (principal); M51.369 Other intervertebral disc degeneration, lumbar region without mention of lumbar back pain or lower extremity pain
CPT/HCPCS: 72100

== ENCOUNTER 2025-06-02 14:30 | Outpatient (OUT) | payer MEDICARE, SELFPAY ==
--- OUTSIDE RECORDS SUMMARY | 2025-06-02 14:33 | XMS_ITS | Clinical Summary ---
Author Organization [facility] Address [address] [place] [address] Care Team Providers Care Monument Letterer Name Role Phone Unavailable Primary Care Provider Unavailabl e Social History Tobacco UseTypesPacks/DayYears UsedDateSmoking Tobacco: Never AssessedUT Safety & EnvironmentAnswerDate RecordedFear of Current or Ex-PartnerNot on file 09/14/2023Emotionally AbusedNot on file09/14/2023hysically AbusedNot on file 09/14/2023Sexually AbusedNot on file09/14/2023hysically or Sexually AbusedNot on file09/14/2023CommentsUnknownSex and Gender InformationValueDate RecordedSex Assigned at BirthNot on fileLegal YenSlnwey73/29/2022 10:32 PM EDT Gender IdentityNot on fileSexual OrientationNot on file Last Filed Vital Signs Vital SignReadingTime TakenCommentsBlood Xlhwwzai792/7308 1:49 PM EDT Jvwip968403/10/2021 1:49 PM OCULouvspjodwr51.6 ??C (97.9 ??F)03/10/2021 1:49 PM EDTRespiratory Rate--Oxygen Saturation--Inhaled Oxygen Concentration--Znfynr537 kg (320 lb)03/10/2021 1:47 PM OALYhczoc948.7 cm (5' 8 )03/10/2021 1:47 PM EDT Body Mass Index48.66003/10/2021 1:47 PM EDT Plan of Treatment Health MaintenanceDue DateLast DoneCommentsCT Jyhgxroqdazy02/20/1958Colonoscopy 1957Colorectal Cancer Zlallsqje92/20/1958FIT-DNA1957FIT1957 FOBT1957 0071Tmbihvbsisicv23/20/1958Depression Ndyryfuib68/20/1970Adult Tetanus 12/11/19792235Pvsdqiqin68/20/1998Pneumococcal Vaccine: 50+ Years (1 of 1 - PCV) 12/11/2007Zoster Vaccines (1 of 2)12/11/2007Fall Risk Jxhqghijh39/20/2023COVID- 19 Vaccine (1 - 2024- season)2025Influenza Vaccine [...]
--- OUTSIDE RECORDS SUMMARY | 2025-06-02 14:33 | XMS_ITS | Clinical Summary ---
Author Organization [facility] Address [facility] [id number] [address] [place] [address] Care Team Providers Care Rol[employer]illet Mill Name Role Phone Hannah Lynn MD Primary Care Provider Allergies Active AllergyReactionsCriticalityNoted DateCommentsSulfa (Sulfonamide Antibiotics)ScwarMqg12/03/2024 Medications MedicationSigDispense QuantityRefillsLast FilledStart DateEnd DateStatus aspirin [...] by mouth daily Indications: visible water retention.10/14/2023ctive qakltbeq-phdw-BK-calcium &mins (THERAGRAN-M) 9 mg iron-400 mcg tablet [...] bedtime.5Active Active Problems ProblemNoted DateDiagnosed DateMineral metabolism thmgaaun88/10/2025 Overview (02/05/2025): ==== 02/05/2025 ==== 24 urine [...] to see a doctor that goes to [place]. Calculus of ureterovesical junction (UVJ)05/30/2024Septic shock05/21/2024 Immunizations ImmunizationAdministration DatesNext DueZoster Vaccine Irurfadaxcf47/17/2023, 02/07/2023 Family History Medical HistoryRelationNameCommentsNephrolithiasisBrother 1CancerFatherProstate cancerFatherDiabetesMotherPeripheral [...] (1 standard drink = 0.6 oz pure alcohol)[facility] UtilitiesAnswerDate RecordedIn the past 12 months has [...] or more drinks on one occasion?Never06/27/2024HQ-2AnswerDate RecordedTotal Wqiol46008/28/2023RAPARE - TransportationAnswerDate RecordedIn the past 12 months, [...] as a part of a household?No06/27/2024hildcareAnswer Date VcqzrqmnCmngaroalPmjktub16/13/2019EmploymentAnswerDate RecordedEmployment Fsehixy6001/03/2019Hunger ScreeningAnswerDate RecordedWithin the past 12 months we worried whether our food would run out before we got money to buy more.Never True02/05/2025Within the past 12 months the food we bought just didn't last and we didn't have money to get more.Never True02/05/2025Purpose - LifeAnswerDate RecordedPurpose and direction in tdaeSkeulpu36/11/2021CommentsNoSex and Gender InformationValueDate RecordedSex Assigned at BirthNot on fileLegal Sex Cqgpgn1405/08/2018 4:09 PM EDTGender IdentityNot on fileSexual OrientationNot on file Last Filed Vital Signs Vital SignReadingTime TakenCommentsBlood Zsqudqvs207/9902/05/2025 12:14 PM EDT Pt. states they had a difficult drive to this office.Lcrue320502/05/2025 12:14 PM HYTKlwqqaadvln88.8 ??C (98.3 ??F)09/11/2024 7:06 AM ESTRespiratory Rate18 09/11/2024 7:47 AM ESTOxygen Osdnsjgbry50%09/11/2024 7:47 AM ESTInhaled Oxygen Concentration--Ualpqr193.4 kg (314 lb)02/05/2025 12:14 PM HKTQyeluy348.2 cm (5' 7 )02/05/2025 12:14 PM EDTBody Mass Index49.18002/05/2025 12:14 PM EDT Plan of Treatment DateTypeDepartmentCare Team (Latest Contact Info)Axqiklzobhk53/27/2026 1:00 PM EDTOffice Visit [facility] [address] [place] [address] [place] [address] [address] Omar Preston MD [facility] [place] [address] Health MaintenanceDue DateLast DoneCommentsAdult BMI Follow Up Plan12/11/1975 DTaP,Tdap and Td Vaccines (1 - Tdap)1976RSV ( or age 60+ yrs) (1 - Risk 60-74 years 1-dose series)2017Fall Risk Nmguvlpqu77/20/2023OVID-19 Vaccine (2 - season)/03/2021Influenza Elbyazi8903/24/2025 Depression Ynlglaxts64/dult BMI Xfozqvwpx70/ Tobacco Enrbegfpu81/Zoster (Shingles) VaccineCompleted 06/09/2023, 02/07/2023 Goals GoalPatient Goal TypeAssociated ProblemsRecent ProgressPatient-Stated?Author Return Home Tess Peterson, RN Note: Evaluation of progress towards goal: safe transition home with home care and support. Medical Devices ExplantedTypeAreaManufacturerDevice IdentifierShelf Expiration DateModel / Serial / LotStent Uret 6fr 26cm 2 Pgtl Crv Rdpq Pstnr Mfl Formerly [facility] - [id number] Implanted:Qty: 1 on 06/28/2024 by Ronaldo Chen MD at [facility] Explanted:Qty: 1 on 08/08/2024 [facility] [employer] Wkyospkzpxjr72/23/[id number] / / [id number]:NO STRINGSStent Uret 6fr 26cm 2 Pgtl Crv Rdpq Pstnr Mfl [facility] [id number] Implanted:Qty: 1 on 08/08/2024 by Ronaldo Chen MD at [facility] Explanted:Qty: 1 on 09/11/2024 by Ronaldo Chen MD at [facility] Hospitalft: [employer] Bjnngombodkw54/07/[id number] / / [id number] Insurance Advance Directives * Full Code (Latest Code Status on File) Date ActivatedDate QkcwulhxhexUhecomcv14/5/2024 7:46 PM06/28/2024 9:02 PM * Full Code Date ActivatedDate AzvpmnsozlvEvmazqbv93/29/2024 1:36 PM05/26/2024 7:56 PM Care Teams Team MemberRelationshipSpecialtyStart DateEnd Date Hannah Lynn MD [address] [place] [id number] PCP - GeneralFamily Ukwfngbb11/29/24
--- OUTSIDE RECORDS SUMMARY | 2025-06-02 14:33 | XMS_ITS | Clinical Summary ---
Author Organization [facility] Address [address] [place] [address] Care Team Providers Care Mutual Fund Manager Name Role Phone Unavailable Primary Care Provider Unavailabl e Social History Tobacco UseTypesPacks/DayYears UsedDateSmoking Tobacco: Never Assessed CommentsUnknownSex and Gender InformationValueDate RecordedSex Assigned at Not on fileLegal OejTodhgd80/15/2023 7:31 PM EDTGender IdentityNot on fileSexual OrientationNot on file Last Filed Vital Signs Vital SignReadingTime TakenCommentsBlood Pressure--Pulse--Temperature-- Respiratory Rate--Oxygen Saturation--Inhaled Oxygen Concentration--Dfgbqr554 kg (289 lb)06/18/2018 12:00 PM GXCAonqvz483.7 cm (5' 8 )06/18/2018 12:00 PM ESTBody Mass Index43.9406/18/2018 12:00 PM EST Plan of Treatment Not on file
--- NOTE | 2025-06-02 15:46 | PM.CN ---
Consult Note: HPI Data of Consult Patient: new to practice Consult date: 06/02/25 Requesting Physician: Zhen Mendoza MD Primary Care Provider: Hannah Lynn MD Consult Narrative Reason for consult: left thigh pain Narrative: 69yof who presents for evaluation. notes worsening pain throughout left thigh that is primarily exacerbated at night when she wakes up from sleep. has difficulty ambulating. recent lumbar xr shows multilevel ddd, spondylosis in lower lumbar spine. has engaged in chiropractic therapy, provider directed home exercises >6 weeks, without lasting benefit. uses otc meds. cc:: CC: Zhen Mendoza MD Review of Systems ROS Status of ROS 10 or more systems reviewed and unremarkable except as noted in history and below Meds Home Medications and Allergies Home Medications ?Medication ?Instructions ?Recorded ?Confirmed ?Type aspirin 81 mg tablet,delayed 81 mg PO DAILY 05/21/24 05/21/24 History release fesoterodine 8 mg tablet,extended mg PO 05/21/24 History release 24 hr hydrochlorothiazide 25 mg tablet 25 mg PO DAILY 05/21/24 05/21/24 History meloxicam 15 mg tablet mg 05/21/24 History mirabegron 50 mg tablet,extended 50 mg PO DAILY 05/21/24 05/21/24 History release 24 hr (Myrbetriq) nitrofurantoin macrocrystal 100 mg 100 mg PO Q12H 05/21/24 05/21/24 History capsule sumatriptan succinate 25 mg tablet 25 mg PO DAILY PRN migraine 05/21/24 05/21/24 History headache Allergies Allergy/AdvReac Type Severity Reaction Status Date / Time No Known Drug Allergies Allergy Verified 05/21/24 04:12 Exam Narrative Exam Narrative: Psych-alert and oriented x 3. Attentive and appropriate, constitutionally normal, displays normal mood and affect per situation. There are no obvious deficits in memory, reasoning, or intellect.? Skin-no obvious rashes, bruising, erythema noted to the patient's area of pain.? Extremities- extremities are warm with minimal edema and palpable pulses. Lumbar-tenderness to palpation noted in the lumbar spine and paraspinal musculature. Pain is elicited with flexion, extension, and lateral rotation of the lumbar spine. Range of motion is diminished with these motions. Facet loading maneuvers are positive.? Strength-noted to be unremarkable with the exception of decreased strength rated at 4 out of 5 in left quadriceps femoris. Sensory-no notable sensory deficits in the bilateral lower extremities to touch or pinprick in all dermatomal distributions with the exception to decreased sensation to the left L3, 4 dermatomal distribution Coordination remains intact.? Gait remains non-antalgic. Assessment and Plan Assessment and Plan (1) Lumbar stenosis with neurogenic claudication: Plan 69yof who presents for evaluation. failed conservative measures, as noted. imaging reviewed, as noted. given symptoms and imaging, will order lumbar mri without contrast for further info. she is in agreement. meds reviewed, no changes. follow up after imaging complete.
== END 2025-06-02 14:31 | disposition home or self-care (01) ==
LOC: PM 14:30
PROVIDERS: PCP Family Medicine; Visit Provider Anesthesiology
DX: M48.062 Spinal stenosis, lumbar region with neurogenic claudication (principal)
CPT/HCPCS: G0463

== ENCOUNTER 2025-06-12 09:27 | Outpatient (OUT) | payer MEDICARE, SELFPAY ==
--- NOTE | 2025-06-12 | MR_ITS ---
The [address] [address] Patient Name: LOREN MURILLO MRN: [id number] date: 1955 Sex: F Assigned Patient Location: MRI Current Patient Location: Accession/Order Number: [id number] Exam Date: 06/12/2025 10:00 Report Date: 06/12/2025 15:16 At the request of: AGUSTÍN SUBRAMANIAN MD Procedure: MR lumbar spine wo con MR lumbar spine wo con 06/12/2025 11:31 AM SIGNS AND SYMPTOMS: LUMBAR STENOSIS WITH NEURO CLAUDICATION PROTOCOL: Multiplanar multisequence MR images of the lumbar spine without IV contrast COMPARISON: None. FINDINGS: There is 6 mm of anterolisthesis of L3 upon L4. There is 7 mm of retrolisthesis of L5 upon S1. There is preservation of vertebral body heights. There is moderate severe disc height loss at T11-T12. There is moderate disc height loss at L2-L3 with mild disc height loss at L3-L4. There is moderate to severe disc height loss at L5-S1. There is Modic type II fatty endplate degenerative change at L3-L4 and L4-5.. Modic type I endplate edema is noted at L2-L3. The conus terminates at the inferior endplate of the L1 vertebral body level. No epidural or paraspinous fluid collection is appreciated. Simple cysts are noted in the renal cortices requiring no further follow-up. At T12-L1: There is a normal disc, central canal, and neural foramen. At L1-L2: There is a normal disc, central canal, and neural foramen. At L2-L3: There is a broad-based disc bulge with facet hypertrophy, ligament flavum thickening, and bilateral facet effusions. There is moderate to severe spinal canal narrowing with moderate bilateral neural foraminal narrowing. At L3-L4: There is a circumferential disc bulge. There is facet hypertrophy and ligamentum flavum thickening. There is moderate to severe spinal canal stenosis with mild bilateral neural foraminal narrowing. At L4-L5: There is a circumferential disc bulge with facet hypertrophy and ligamentum flavum thickening. There is mild spinal canal narrowing with moderate right and mild left neural foraminal stenosis. At L5-S1: There is a circumferential disc bulge. There is facet hypertrophy. There is mild spinal canal stenosis with mass effect on the traversing S1 nerve roots, right greater than left. There is moderate bilateral neural foraminal narrowing. MR/MR lumbar spine wo con IMPRESSION: At L2-L3: There is a broad-based disc bulge with facet hypertrophy, ligament flavum thickening, and bilateral facet effusions. There is moderate to severe spinal canal narrowing with moderate bilateral neural foraminal narrowing. At L3-L4: There is a circumferential disc bulge. There is facet hypertrophy and ligamentum flavum thickening. There is moderate to severe spinal canal stenosis with mild bilateral neural foraminal narrowing. At L4-L5: There is a circumferential disc bulge with facet hypertrophy and ligamentum flavum thickening. There is mild spinal canal narrowing with moderate right and mild left neural foraminal stenosis. At L5-S1: There is a circumferential disc bulge. There is facet hypertrophy. There is mild spinal canal stenosis with mass effect on the traversing S1 nerve roots, right greater than left. There is moderate bilateral neural foraminal narrowing. Impression dictated by: Gaurav Tsang M.D. 06/12/2025 3:16 PM Dictation Location: [place] [facility]PE[facility] CENTERComplexa Electronically authenticated by: [id number] Y Date: 06/12/2025 15:16
--- OUTSIDE RECORDS SUMMARY | 2025-06-12 09:37 | XMS_ITS | Clinical Summary ---
Author Organization [facility] Address [address] [place] [address] Care Team Providers Care Advertising Analyst Name Role Phone Unavailable Primary Care Provider Unavailabl e Social History Tobacco UseTypesPacks/DayYears UsedDateSmoking Tobacco: Never AssessedUT Safety & EnvironmentAnswerDate RecordedFear of Current or Ex-PartnerNot on file 09/14/2023Emotionally AbusedNot on file09/14/2023hysically AbusedNot on file 09/14/2023Sexually AbusedNot on file09/14/2023hysically or Sexually AbusedNot on file09/14/2023CommentsUnknownSex and Gender InformationValueDate RecordedSex Assigned at BirthNot on fileLegal LnbYalziv75/29/2022 10:32 PM EDT Gender IdentityNot on fileSexual OrientationNot on file Last Filed Vital Signs Vital SignReadingTime TakenCommentsBlood Brzcjscg491/7308 1:49 PM EDT Eidfb495103/10/2021 1:49 PM KGASehpolxnmzh38.6 ??C (97.9 ??F)03/10/2021 1:49 PM EDTRespiratory Rate--Oxygen Saturation--Inhaled Oxygen Concentration--Ftgjon535 kg (320 lb)03/10/2021 1:47 PM HDMQixuwh224.7 cm (5' 8 )03/10/2021 1:47 PM EDT Body Mass Index48.66003/10/2021 1:47 PM EDT Plan of Treatment Health MaintenanceDue DateLast DoneCommentsCT Odyxszlvaytn24/20/1958Colonoscopy 1955Colorectal Cancer Jiwpvzjin14/20/1958FIT-DNA1957FIT1955 FOBT1955 2866Rtotunmjqwxzs35/20/1958Depression Mzssgmlqw62/20/1970Adult Tetanus 12/11/19794821Xvbqtseoz93/20/1998Pneumococcal Vaccine: 50+ Years (1 of 1 - PCV) 12/11/2007Zoster Vaccines (1 of 2)12/11/2007Fall Risk Nhvptqxxq39/20/2023COVID- 19 Vaccine (1 - 2024- season)2025Influenza Vaccine [...]
--- OUTSIDE RECORDS SUMMARY | 2025-06-12 09:37 | XMS_ITS | Clinical Summary ---
Author Organization [employer] tem Address [id number] [place] [address] Care Team Providers Care Energy Economist Name Role Phone Hannah Lynn MD Primary Care Provider [phone] Allergies Active AllergyReactionsCriticalityNoted DateCommentsSulfa (Sulfonamide Antibiotics)TlfkvYff08/03/2024 Medications MedicationSigDispense QuantityRefillsLast FilledStart DateEnd DateStatus aspirin [...] by mouth daily Indications: visible water retention.10/14/2023ctive txyowjhd-jvnh-ZJ-calcium &mins (THERAGRAN-M) 9 mg iron-400 mcg tablet [...] bedtime.5Active Active Problems ProblemNoted DateDiagnosed DateMineral metabolism zgcadavk96/10/2025 Overview (02/05/2025): ==== 02/05/2025 ==== 24 urine [...] to see a doctor that goes to [place]. Calculus of ureterovesical junction (UVJ)05/30/2024Septic shock05/21/2024 Immunizations ImmunizationAdministration DatesNext DueZoster Vaccine Qqalzcydinl66/17/2023, 02/07/2023 Family History Medical HistoryRelationNameCommentsNephrolithiasisBrother 1CancerFatherProstate cancerFatherDiabetesMotherPeripheral [...] (1 standard drink = 0.6 oz pure alcohol)[facility] UtilitiesAnswerDate RecordedIn the past 12 months has [...] or more drinks on one occasion?Never06/27/2024HQ-2AnswerDate RecordedTotal Kvufz86908/28/2023RAPARE - TransportationAnswerDate RecordedIn the past 12 months, [...] as a part of a household?No06/27/2024hildcareAnswer Date VnvaxtlbKbhxfialyXmqhiwy74/13/2019EmploymentAnswerDate RecordedEmployment Ddlopet8501/03/2019Hunger ScreeningAnswerDate RecordedWithin the past 12 months we worried whether our food would run out before we got money to buy more.Never True02/05/2025Within the past 12 months the food we bought just didn't last and we didn't have money to get more.Never True02/05/2025Purpose - LifeAnswerDate RecordedPurpose and direction in nyccTeurolo61/11/2021CommentsNoSex and Gender InformationValueDate RecordedSex Assigned at BirthNot on fileLegal Sex Qvvcxa0205/08/2018 4:09 PM EDTGender IdentityNot on fileSexual OrientationNot on file Last Filed Vital Signs Vital SignReadingTime TakenCommentsBlood Cljcocmw499/9902/05/2025 12:14 PM EDT Pt. states they had a difficult drive to this office.Vnysb249702/05/2025 12:14 PM KEYSiulrbsopyq48.8 ??C (98.3 ??F)09/11/2024 7:06 AM ESTRespiratory Rate18 09/11/2024 7:47 AM ESTOxygen Wpndyxadfc18%09/11/2024 7:47 AM ESTInhaled Oxygen Concentration--Pghprs597.4 kg (314 lb)02/05/2025 12:14 PM RHPLlyxmd915.2 cm (5' 7 )02/05/2025 12:14 PM EDTBody Mass Index49.18002/05/2025 12:14 PM EDT Plan of Treatment DateTypeDepartmentCare Team (Latest Contact Info)Xnxlxlzquxu04/27/2026 1:00 PM EDTOffice Visit [facility] [address] [place] [address] [address] [place] [address] Omar Preston MD [facility] [place] [address] Health MaintenanceDue DateLast DoneCommentsAdult BMI Follow Up Plan12/11/1975 DTaP,Tdap and Td Vaccines (1 - Tdap)1976RSV ( or age 60+ yrs) (1 - Risk 60-74 years 1-dose series)2017Fall Risk Ozsdcxvkq68/20/2023OVID-19 Vaccine (2 - season)/03/2021Influenza Bfnprta9103/24/2025 Depression Kjtmbcjqp60/dult BMI Abvudwnod83/ Tobacco Egekioarj80/Zoster (Shingles) VaccineCompleted 06/09/2023, 02/07/2023 Goals GoalPatient Goal TypeAssociated ProblemsRecent ProgressPatient-Stated?Author Return Home Tess Peterson, RN Note: Evaluation of progress towards goal: safe transition home with home care and support. Medical Devices ExplantedTypeAreaManufacturerDevice IdentifierShelf Expiration DateModel / Serial / LotStent Uret 6fr 26cm 2 Pgtl Crv Rdpq Pstnr Mfl [facility] - [id number] Implanted:Qty: 1 on 06/28/2024 by Ronaldo Chen MD at [facility] Explanted:Qty: 1 on 08/08/2024 [facility]: [employer] Glxgzmuhkdop70/23/[id number] / / [id number]:NO STRINGSStent Uret 6fr 26cm 2 Pgtl Crv Rdpq Pstnr Mfl [facility] [id number] Implanted:Qty: 1 on 08/08/2024 by Ronaldo Chen MD at [facility] Explanted:Qty: 1 on 09/11/2024 by Ronaldo Chen MD at [facility] Troyft: [employer] Lgwahcdtpwxn09/07/[id number] / / [id number] Insurance Advance Directives * Full Code (Latest Code Status on File) Date ActivatedDate QwebcfxtprrUfoucemd41/5/2024 7:46 PM06/28/2024 9:02 PM * Full Code Date ActivatedDate BfwwzwtsotjStmtvkgs96/29/2024 1:36 PM05/26/2024 7:56 PM Care Teams Team MemberRelationshipSpecialtyStart DateEnd Date Hannah Lynn MD [address] [place] [id number] PCP - GeneralFamily Thiypoef35/29/24
--- OUTSIDE RECORDS SUMMARY | 2025-06-12 09:37 | XMS_ITS | Clinical Summary ---
Author Organization [facility] Address [address] [place] [address] Care Team Providers Care Family Caseworker Name Role Phone Unavailable Primary Care Provider Unavailabl e Social History Tobacco UseTypesPacks/DayYears UsedDateSmoking Tobacco: Never Assessed CommentsUnknownSex and Gender InformationValueDate RecordedSex Assigned at Not on fileLegal DbvUkbwxa18/15/2023 7:31 PM EDTGender IdentityNot on fileSexual OrientationNot on file Last Filed Vital Signs Vital SignReadingTime TakenCommentsBlood Pressure--Pulse--Temperature-- Respiratory Rate--Oxygen Saturation--Inhaled Oxygen Concentration--Kimpgh163 kg (289 lb)06/18/2018 12:00 PM KWOEiauid273.7 cm (5' 8 )06/18/2018 12:00 PM ESTBody Mass Index43.9406/18/2018 12:00 PM EST Plan of Treatment Not on file
--- OUTSIDE RECORDS SUMMARY | 2025-06-12 09:40 | XMS_ITS | CCD ---
Author Organization [facility] Care Team Providers Care Air Breaker Operator Name Role Phone SIDNEY PAGAN Attending Unavailable OLMAN SHOEMAKER Primary Care Unavailable OLMAN SHOEMAKER Referring Unavailable SIDNEY PAGAN Admitting Unavailable SIDNEY PAGAN Surgeon Unavailable OLMAN SHOEMAKER Primary Care Unavailable OLMAN SHOEMAKER Referring Unavailable [place] Procedure Practitioner Unavailab SIDNEY Jasso Admitting Unavailable SIDNEY PAGAN Attending Unavailable MISC, DR SHAH Admitting Unavailable MISC, DR SHAH Attending Unavailable SAHARA, DR OLMAN Holt Primary Care Unavailable CHERYL NAIR, DR INA Vargas Consulting Unavailnasreen SHOEMAKER, DR OLMAN Holt Admitting Unavailable SAHARA, DR OLMAN Holt Attending Unavailable SAHARA, DR OLMAN Holt Primary Care Unavailable SHOEMAKER, DR OLMAN Holt Consulting Unavailable OLMAN SHOEMAKER Primary Care Physician Olman Shoemaker Unavailable Olman Shoemaker MD Primary Care Provider RYAN BENITEZ Admitting Unavailable RYAN BENITEZ Attending [...] Unavailable ESME CHEN Attending Unavailable OLMAN SHOEMAKER E Primary Care Unavailable Olman Shoemaker MD Primary Care Provider SAHARA OLMAN E Referring Unavailable SHOEMAKER, OLMAN E [...] Primary Care Unavailable ALEKSANDRA SANDOVAL Attending Unavailable SAHARA, OLMAN E Referring Unavailable SHOEMAKER, OLMAN E Primary Care Unavailable ALEKSANDRA SANDOVAL Attending Unavailable SHOEMAKER, OLMAN E Referring Unavailable SHOEMAKER, OLMAN E Primary Care Unavailable Olman Shoemaker MD Primary Care Provider [phone] Community, Outreach Attending Provider Community, Outreach Attending Unavailable Community, Outreach Admitting Unavailable Sahara, Olman E Primary Care Unavailable THUY CAMPBELL Attending Unavailable Olman Shoemaker MD Attending Provider [phone] Zhen Mendoza MD Attending Unavailable Allergies Allergy ClassificationReported Allergen(s)Allergy TypeDate of OnsetReaction(s) FacilitySulfonamides (antibiotic) (1 source)Sulfonamides (Antibiotic); Translations: [SULFA (SULFONAMIDE ANTIBIOTICS)]Drug Dwbzvis06-07-7883U[facility] (1 source)Sulfonamides (Antibiotic)Drug allergy (disorder)[facility] Repository (3 sources)Sulfonamides (Antibiotic); Translations: [sulfa drugs]Drug allergy Unknown (qualifier value)[facility] (18 sources)Substance with sulfonamide structure and antibacterial mechanism of action (substance)Drug isqbhpr01-19-4735mtxos, Other (See Comments)[facility] Other (3 sources)patient allergy list reviewed by nurse or physiciaPropensity to adverse jvovqommz99-91-2337Smabqmm:Locai Other (3 sources)Allergies ReconciledPropensity to adverse reactionsUnknoMercy Hospital [facility] Varolii Other (7 sources)Sulfonamides (Antibiotic); Translations: [SULFA (SULFONAMIDE ANTIBIOTICS)]Propensity to adverse reactions to drug (disorder)10-25-2023 [facility] Repository Medications Current Medications MedicationDrug Class(es)DatesSig (Normalized)Sig (Original)Acetaminophen (1 source)Start: 71-16-5744myvzvlgyfcwip (TYLENOL) tablet 650 mgascorbic acid 1000 mg oral tablet (15 sources)Vitamin Ctake 1 tablet by mouth in the morningascorbic acid, vitamin C, (VITAMIN C) 1000 mg tablet Take 1 tablet (1,000 mg total) by mouth in the morning. Activeaspirin 81 mg chewable tablet (20 sources)Platelet Aggregation Inhibitor, Nonsteroidal Anti-inflammatory Drug Start: 86-06-0263eaez 1 tablet by mouth once dailyAspirin 81 mg tablet,chewable Active 81 MG PO Daily October 14, 2023 12:00am Complies with drug therapyStart: 16-20-2963uopc 1 tablet by mouth once dailyaspirin 81 mg Oral EC Tab 81 mg = 1 tab(s), Oral, Daily, Refills(s) 0 Start Date: 12/17/19 Status: OrderedBaby Aspirin Activebisacodyl 10 mg rectal suppository (1 source)Stimulant LaxativeStart: 13-14-9726oisq 10 mg by mouth once daily as needed for btcwmnleztyk21 mg, rectal, Daily PRN, constipation, Constipation if polyethylene glycol is ineffective or patient is unable to take oral medications, Starting on Mon05/21/24 at 1333, Look-alike/sound-alike medication - verify indication for use.Calcium Gluconate (1 source)Start: 12-65-7004tfbmwce gluconate IVPB 1000 mg/50 mL (20 mg/mL premix)cefTRIAXone (ROCEPHIN) 2,000 mg in sodium chloride 0.9 % 50 mL IVPB-MBP (1 source)Start: 60-33-2592cull 2000 mg intravenously every twenty-four hours 2,000 [...] IVPB MINI-BAG Plus (4 sources)Start: 05-24-2024 End: 80-24-1307wvtm 2000 mg intravenously every twenty-four hourscefTRIAXone 2,000 mg in sodium chloride 0.9 % 50 mL IVPB MINI-BAG Plus Infuse 2,000 mg into a venous catheter daily for 11 days. WBC, platelet, creatinine, LFT weekly while on antibiotic, faxed to [facility] [phone]. IV flushes as per protocol 1 each 05/24/2024 06/04/2024 ActiveStart: 05-24-2024 End: 38-13-7984yqww 2000 mg intravenously every twenty-four hourscefTRIAXone 2,000 mg in sodium chloride 0.9 % 50 mL IVPB MINI-BAG Plus Infuse 2,000 mg into a venous catheter daily for 11 days. WBC, platelet, creatinine, LFT weekly while on antibiotic, faxed to [place] [phone] . IV flushes as per protocol 1 each 05/24/2024 06/04/2024Start: 05-24-2024 End: 38-94-8845mzms 2000 mg intravenously every twenty-four hourscefTRIAXone 2,000 mg in sodium chloride 0.9 % 50 mL IVPB MINI-BAG Plus Infuse 2,000 mg into a venous catheter daily for 11 days. WBC, platelet, creatinine, LFT weekly while on antibiotic, faxed to [place] [phone] . IV flushes as per protocol 1 each 05/24/2024 05/24/2024 DiscontinuedCentrum MultiGummies Women (2 sources)Start: 91-48-4965Gfpbbgc MultiGummies Women See Instructions, Refill(s) 0, one po daily Start Date: 12/17/19 Status: Orderedcholecalciferol 0.05 mg oral tablet (16 sources)Vitamin DStart: 67-58-8058fpxq 2000 [IU] by mouth once daily2,000 Units, oral, Daily, First dose on Mon05/23/24 at 2100take 1 tablet by mouth in the morningcholecalciferol, vitamin D3, 2,000 units tablet Take 1 tablet (2,000 Units total) by mouth in the morning. Activeciprofloxacin 500 mg oral tablet (1 source)Quinolone AntimicrobialStart: 06-29-2024 End: 24-40-3485pxmd 1 tablet by mouth in the morning, then take 1 tablet by mouth at bedtimeciprofloxacin HCl (CIPRO) 500 mg tablet Take 1 tablet (500 mg total) by mouth in the morning and 1 tablet (500 mg total) before bedtime. Do all this for 5 days. 10 tablet 06/29/2024 07/04/2024 Activeglucagon (rdna) 1 mg injection (1 source)Antihypoglycemic AgentStart: [...] 5000 unt/ml injection (1 source)Unfractionated Heparin, Anti-coagulantStart: 14-26-1347bfcnmt 5000 [IU] by subcutaneous injection every eight hours5,000 Units, subcutaneous, Every 8 hours scheduled, First dose on Mon05/22/24 at 0600, Look-alike/sound-alike medication - verify indication for use. Observe for bleeding.hyoscyamine sulfate 0.125 mg sublingual tablet (1 source)Start: 66-62-5673gnfa 1 tablet by mouth every four hours as needed hyoscyamine (LEVSIN) 0.125 mg SL tablet Take 1 tablet (125 mcg total) by mouth every 4 (four) hoursas needed for cramping. 30 tablet 08/08/2024 Active levoFLOXacin 500 mg oral tablet (1 source)Quinolone AntimicrobialStart: 08-08-2024 End: 24-82-0661iyxb 1 tablet by mouth in the morninglevoFLOXacin (LEVAQUIN) 500 mg tablet Take 1 tablet (500 mg total) by mouth in the morning for 5 days. 5 tablet 08/08/2024 08/13/2024 Activemagnesium sulfate IVPB 2000 mg/50 mL in iso- osmotic water (40 mg/mL premix) (1 source)Start: 02-81-4085dlknqkpxa sulfate IVPB 2000 mg/50 mL in iso-osmotic water (40 mg/mL premix)ebpgwvpv-bgto-DQ-calcium &mins (THERAGRAN-M) 9 mg iron- 400 mcg tablet (15 sources)ifkqywmh-xxte-OB-calcium &mins (THERAGRAN-M) 9 mg iron-400 mcg tablet Take 1 tablet by mouth inthe morning. Lwtdqnkjfbbweb-nonx-KB-calcium &mins (THERAGRAN-M) 9 mg iron-400 mcg tablet Take 1 tablet by mouth inthe morning.khslkkpd-lizk-RX-calcium &mins (THERAGRAN-M) 9 mg iron-400 mcg tablet Take 1 tablet by mouth inthe morning. Bvtckuxaojpaeupps-uzmy-UB-calcium &mins (THERAGRAN-M) 9 mg iron-400 mcg tablet 1 tablet (1 source)Start: 89-74-6974miwd 1 tablet by mouth once daily1 tablet, oral, Daily, First dose on Mon05/23/[address]-H[address]-Dk-Lycopen-Lutein (Complete Mv Adult 50 Plus) 0.4 mg-300 mcg- 250 mcg tablet (6 sources)Start: 52-38-3947ggfb 1 tablet by mouth once daily Wurfncxo-Hjn-Js-Lycopen-Lutein (Complete Mv Adult 50 Plus) 0.4 mg-300 mcg- 250 mcg tablet Active 1 TAB PO Daily October 14, 2023 12:00am Complies with drug therapyStart: 74-83-8429rlgi 1 tablet by mouth once dailyStart: 62-48-2919qgfv 1 tablet by mouth once bdyjhNivyxfrr-Qiq-Bv-Lycopen-Lutein (Complete Mv Adult 50 Plus) 0.4 mg-300 mcg- 250 mcg tablet Active 1 TAB PO Daily October 13, 2023 11:00pmStart: 72-07-1714alwk 1 tablet by mouth once daily Dwocurnp-Kgc-Zq-Lycopen-Lutein (Complete Mv Adult 50 Plus) 0.4 mg-300 mcg- 250 mcg tablet Active 1 TAB PO Daily October 14, 2023 12:00amMultivitamin Adults 50+ - (4 sources)Multivitamin Adults 50+ - Orally ActiveoxyCODONE hydrochloride 5 mg oral tablet (1 source)Opioid AgonistStart: 61-32-0559ebuf 1 tablet by mouth every four hours as needed for pain5 mg, oral, Every 4 hours PRN, severe pain - pain scale 7-10, Starting on Mon05/22/24 at 0827, Look-alike/sound-alike medication - verify indication for use. Immediate release.polyethylene glycol 3350 38739 mg powder for oral solution (1 source)Osmotic LaxativeStart: 85-46-348804 g, oral, Daily PRN, constipation, Starting on Mon05/21/24 at 1333, Look-alike/sound-alike medication - verify indication for use. Dissolve 1 packet (17 gm) in 8 ounces of water, juice, soda, coffee or tea.Potassium Chloride (1 source)Start: 12-27-9478crzrajawy chloride (K-TAB,KLOR-CON) CR tablet 20-50 mEqpotassium chloride IVPB 10 mEq/50 mL in water (0.2 mEq/mL premix) (1 source)Start: 15-72-7611mgkrjvjhb chloride IVPB 10 mEq/50 mL in water (0.2 mEq/mL premix)Sodium Chloride (4 sources)Start: 49-79-8906jkir 10 mL intravenously every twelve hourssodium chloride 0.9 % flush 10 mLStart: 05-21-2024 End: mL/hr, intra-arterial, Continuous, Starting on Mon05/21/24 at 1415, For 90 daysStart: 05-21-2024 End: 48-91-0417stkt 10 mL intravenously every hour as mL/hr, intravenous, Continuous PRN, to maintain patency of lines, Starting on Mon05/21/24 at 1325, For 1 day, Line #3sodium phosphate 20 mmol in sodium chloride 0.9 % 250 mL IVPB (1 source)Start: 29-55-2538wkmrlx phosphate 20 mmol in sodium chloride 0.9 % 250 mL IVPBSUMAtriptan 25 mg oral tablet (20 sources)Serotonin-1b and Serotonin-1d Receptor AgonistStart: 09-24-2024 Sumatriptan Succinate 25 mg tablet Active 0 .ROUTE .COMPLEX 9 September 24, 2024 1:33pm TAKE 1 TAB AT ONSET OF HEADACHE IF NO RELIEF MAY REPEAT 1 TAB AFTER 2HRS *MAX 4/24HR* Complies with drug therapyStart: 62-91-3003mooc 1 tablet by mouth once as neededSUMAtriptan (IMITREX) 25 mg tablet Take 1 tablet (25 mg total) by mouth once as needed for migraine. 05/16/2024 ActiveStart: 05-16-2024 End: 23-03-2158ktlj 1 tablet by mouth every two hoursSumatriptan Succinate 25 mg tablet Discontinued 0 PO .COMPLEX 9 May 16, 2024 12:00am September 24, 2024 1:33pm take 1 tab at onset of headache; if no relief may repeat 1 tab after at least 2 hrs; max = 4 tabs/24 hr POterbinafine 250 mg oral tablet (4 sources)Allylamine AntifungalStart: 44-43-4019qvam 1 tablet by mouth every twenty-four hoursTerbinafine HCl 250 MG 1 tablet Orally Once a day for 10 day(s) Jan, ActivetiZANidine 2 mg oral tablet (1 source)Central alpha-2 Adrenergic AgonistStart: 86-03-7265sxyi 1 tablet by mouth once daily at bedtime as neededTizanidine 2 mg tablet Active 2 MG PO Daily at bedtime as needed for muscle spasticity 2024 12:00am Complies with drug therapyzinc gluconate 50 mg oral tablet (10 sources)take 1 tablet by mouth in the morningzinc gluconate 50 mg tablet Take 1 tablet (50 mg total) by mouth in the morning. Active Completed/Discontinued Medications MedicationDrug Class(es)DatesSig (Normalized)Sig (Original)500 ml albumin human, fci 50 mg/ml injection (1 source)Human Serum AlbuminStart: [...] With Volume Depletionazithromycin 250 mg oral tablet (6 sources)Macrolide AntimicrobialStart: 05-06-2025 End: 84-64-4941Uqxuzyfovjgt 250 mg tablet Discontinued 0 PO .COMPLEX 6 0 May 06, 2025 12:00am May 20, 2025 10:14am For 250 mg dose pack: take 500 mg today (day 1), then 250 mg for 4 days (days 2-5) POStart: 10-25-2023 End: 66-39-6493Pbdolardqsfm 250 mg tablet Discontinued 250 MG PO daily 6 5 0 October 25, 2023 12:00am April 10:40am Bronchitis Bronchitis, not specified as acute or chronic Take 2 tablets today and then1 tablet for the next 4 daysbenzonatate 200 mg oral capsule (5 sources)Non-narcotic AntitussiveStart: 10-25-2023 End: 08-91-4969fhui 1 capsule by mouth three times daily as needed for cough Benzonatate 200 mg capsule Discontinued 200 MG PO Three times daily as needed for cough 30 10 0 October 25, 2023 12:00am May 16, 2024 10:41am Bronchitis Bronchitis, not specified as acute or chroniccaffeine 100 mg / ergotamine tartrate 1 mg oral tablet (12 sources)Central Nervous System Stimulant, Ergotamine Derivative, MethylxanthineStart: 10-14-2023 End: 29-33-5112zjff 1 tablet by mouth once as neededErgotamine-Caffeine 1-100 mg tablet Discontinued 1 TAB PO Once as needed October 14, 2023 12:00am May 16, 2024 12:33pm FreeTextSig: Orally; Note: Source Status: Taking; Provider: Sahara Young ( )Start: 12-75-1698kurj 1 tablet by mouth every eight hours for headacheCafergot oral tablet 1 tab(s), Oral, q8hr for headache Start Date: 12/13/19 Status: OrderedCafergot 1-100 MG Orally Activecalcium chloride 0.0014 meq/ml / potassium chloride 0.004 meq/ml / sodium chloride 0.103 meq/ml / sodium lactate 0.028 meq/ml injectable solution (2 sources)Start: 05-21-2024 End: 41,000 mL, intravenous, at 1,935.5 mL/hr, Administer over 31 Minutes, Once, On Mon05/21/24 at 2030,For 1 doseStart: 05-21-2024 End: 79-03-5222yfqb 100 mL intravenously every gwnl221 mL/hr, intravenous, Continuous, Starting on Mon05/21/24 at 1345, For 1 daydiclofenac sodium 20 mg/ml topical solution (4 sources)Nonsteroidal Anti-inflammatory DrugStart: 16-65-2596Pmpzdbhf 2 % 2 applications to affected area Transdermal Twice a day for 30 day(s) Aug, Not-Takingfamotidine 20 mg oral tablet (2 sources)Histamine-2 Receptor AntagonistStart: 05-22-2024 End: 38-88-3748ugzd 20 mg by mouth once daily20 mg, oral, Daily, First dose (after last modification) on Mon05/22/24 at 1630, Indication: Stress Ulcer ProphylaxisStart: 05-21-2024 End: 20-63-387003 mg, intravenous, Every 24 hours scheduled, First dose (after last modification) on Mon05/21/24 at 1600, Pharmacy to adjust dose based on renal function. Dilute to total volume of 5 mL with 0.9% sod chl and administer IVP over 2 minutes., Indication: Stress Ulcer Prophylaxis1 ml fentaNYL 0.05 mg/ml injection (3 sources)Opioid AgonistStart: 05-21-2024 End: 79-71-359826 mcg, intravenous, Once, On Mon05/21/24 at 2200, For 1 dose, Look-alike/sound-alike medication -verify indication for use.Start: 05-21-2024 End: 79-38-7424wtqd 50 ug intravenously every three hours as mcg, intravenous, Every 3 hours PRN, breakthrough pain, Starting on Mon05/22/24 at 0047, Look-alike/sound-alike medication - verify indication for use.24 hr fesoterodine fumarate 8 mg extended release oral tablet (20 sources)Start: 81-80-3914lzsu 1 tablet by mouth once dailyFesoterodine 8 mg tablet extended release 24 hr Active 0 .ROUTE .COMPLEX June 05, 2024 10:23am TAKE 1 TABLET BY MOUTH EVERY DAYStart: 07-44-4546spej 1 tablet by mouth every twenty-four hours in the morningfesoterodine (TOVIAZ) 8 mg tablet extended release 24 hr Indications: urinary urgency Take 1 tablet(8 mg total) by mouth in the morning. Indications: urinary urgency, or the sudden urge to urinate. 0 02/13/2024 ActiveStart: 02-13-2024 End: 53-99-0681shcc 1 tablet by mouth once dailyFesoterodine 8 mg tablet extended release 24 hr Discontinued 0 .ROUTE .COMPLEX February 13, 2024 9:42am June 05, 2024 10:23am TAKE 1 TABLET BY MOUTH EVERY DAYStart: 02-13-2024 take 1 tablet by mouth once dailyFesoterodine Active 0 .ROUTE .COMPLEX February 13, 2024 10:42am TAKE 1 TABLET BY MOUTH EVERY DAYStart: 12-26-2023 End: 33-64-9267ksgm 1 tablet by mouth once dailyFesoterodine 8 mg tablet extended release 24 hr Discontinued 0 .ROUTE .COMPLEX 90 June 05, 2024 11:23am October 08, 2024 11:40am TAKE 1 TABLET BY MOUTH EVERY DAYStart: 12-26-2023 End: 15-67-9282qots 1 tablet by mouth once dailyFesoterodine 8 mg tablet extended release 24 hr Discontinued 0 .ROUTE .COMPLEX December 26, 2023 2:40pm February 13, 2024 9:42am TAKE 1 TABLET BY MOUTH EVERY DAYStart: 12-26-2023 End: 00-08-7575edbd 1 tablet by mouth once dailyFesoterodine Discontinued 0 .ROUTE .COMPLEX December 26, 2023 3:40pm February 13, 2024 10:42am TAKE 1TABLET BY MOUTH EVERY DAYStart: 12-13-2019 End: 81-10-4952pqwg 1 tablet by mouth once dailyFesoterodine (Toviaz) 8 mg tablet extended release 24 hr Discontinued 8 MG PO Daily October 14, 2023 12:00am November 27, 2023 8:37amToviaz 8mg Activegabapentin 100 mg oral capsule (7 sources)Anti-epileptic AgentStart: 05-22-2024 End: 37-92-1535zeai 1 capsule by mouth three times dailyGabapentin 100 mg capsule Discontinued 100 MG PO Three times daily May 30, 2024 1:00am May 20, 2025 10:14amhydroCHLOROthiazide 25 mg oral tablet (20 sources)Thiazide DiureticStart: 12-13-2019 End: 45-63-0172sjrt 1 tablet by mouth once dailyHydrochlorothiazide 25 mg tablet Discontinued 25 MG PO Daily October 14, 2023 12:00am August 5:18pm FreeTextSig: TAKE 1 TABLET DAILY; Note: Source Status: Start; Refills: 3; Qty: 90 Tablet; Provider: Sahara Young ( )hydrocortisone 100 mg injection (1 source)CorticosteroidStart: 05-21-2024 End: 69-29-9570esnn 50 mg intravenously every six hours50 mg, intravenous, Every 6 hours, First dose on Mon05/21/24 at 2030, Administer over 30 seconds. May alter blood glucose or insulin requirements. Look-alike/sound-alike medication - verify indication for use.iohexoL (OMNIPAQUE) 300 mg iodine/mL (1 source)Start: 05-21-2024 End: 75-98-6879Sc needed, Starting on Mon05/21/24 at 1623, Intra-op10 ml lidocaine hydrochloride 10 mg/ml injection (1 source)Antiarrhythmic, Amide Local AnestheticStart: 05-21-2024 End: 02-72-4857nkxfjhmmoiua, Code/trauma/sedation medication, Starting on Mon05/21/24 at 1614, Intra-opmeloxicam 15 mg oral tablet (20 sources)Nonsteroidal Anti-inflammatory DrugStart: 90-84-2794wcbt 15 mg by mouth once daily15 mg, oral, Daily, First dose on Mon05/23/24 at 2100Start: 10-27-2023 End: 94-31-2278Sstswrwef 15 mg tablet Discontinued 0 .ROUTE .COMPLEX 90 August 26, 2024 5:17pm February 28, 2025 8:47am TAKE 1 TABLET DAILYStart: 00-47-4218Yhffwmyro 15 mg tablet Active 0 .ROUTE .COMPLEX 90 October 27, 2023 10:00am TAKE 1 TABLET DAILYStart: 80-73-8721Nyleipjoh Active 0 .ROUTE .COMPLEX 90 October 27, 2023 11:00am TAKE 1 TABLET DAILYStart: 12-17-2019 End: 28-30-2795cobt 1 tablet by mouth once dailyMeloxicam 15 mg tablet Discontinued 15 MG PO Daily October 14, 2023 12:00am October 27, 2023 11:00am FreeTextSig: TAKE 1 TABLET DAILY; Note: Source Status: Taking; Refills: 3; Qty: 90 Tablet; Provider: Sahara Young ( )2 ml midazolam 1 mg/ml cartridge (1 source)BenzodiazepineStart: 05-21-2024 End: 04-09-7395yteyyaydnmy, Code/trauma/sedation medication, Starting on Mon05/21/24 at 1610, Intra-op24 hr mirabegron 50 mg extended release oral tablet (20 sources)beta3-Adrenergic AgonistStart: 12-13-2019 End: 41-28-7316hbrs 1 tablet by mouth once dailyMirabegron 50 mg tablet extended release 24 hr Discontinued 50 MG PO Daily October 14, 2023 12:00amApril 2023 11:00am FreeTextSig: TAKE 1 TABLET DAILY; [...] urinate. Activenitrofurantoin, macrocrystals 100 mg oral capsule (9 sources)Nitrofuran AntibacterialStart: 05-17-2024 End: 09-17-5245frqr 1 capsule by mouth twice daily at mealtimeNitrofurantoin Macrocrystal 100 mg capsule Discontinued 100 MG PO Twice daily 14 May 17, 2024 12:00am May 30, 2024 3:53pm must administer with [...] Pyxis Override Pull (1 source)Start: 05-21-2024 End: 45-65-6385Lousctrg on Mon05/21/24 at 1257, For 1 dose, Jovany Wynne: cabinet override VESICANT (RED) Requires Smart Pump.oxybutynin chloride 5 mg oral tablet (11 sources)Cholinergic Muscarinic AntagonistStart: 10-08-2024 End: 40-12-4419ctvl 1 tablet by mouth once dailyOxybutynin Chloride 5 mg tablet Discontinued 5 MG PO Daily 90 0 January 03, 2025 9:28am March 31, 2025 8:24ampiperacillin-tazobactam (ZOSYN) 4.5 g in sodium chloride 0.9 % 50 mL IVPB-MBP (1 source)Start: 05-21-2024 End: 44.5 g, intravenous, at 100 mL/hr, Administer over 0.5 Hours, Once, On Mon05/21/24 at 1345, For 1 dose, ADD-VANTAGE/MBP- Discard 24 hours after activating; dissolve drug prior to administration, Indication: Sepsis predniSONE 20 mg oral tablet (6 sources)Start: 10-14-2023 End: 96-95-3677ebjk 1 tablet by mouth twice dailyPrednisone 20 mg tablet Discontinued 20 MG PO Twice daily 10 5 0 October 14, 2023 12:00am October 25, 2023 9:34amSUPARTZ FX SODIUM HYALURONATE (20 sources)Start: 59-95-1498WDBUATX FX SODIUM HYALURONATE Dec, 25Start: 35-04-4906UGAJITA FX SODIUM HYALURONATE November, 25 mgStart: 12-12-2016 SUPARTZ FX SODIUM HYALURONATE November, 25Start: 35-75-7596VNDEDHV FX SODIUM HYALURONATE November, 25 mgStart: 93-83-9802KXSRAOS FX SODIUM HYALURONATE November, 25 mgtamsulosin hydrochloride 0.4 mg oral capsule (9 sources)alpha-Adrenergic BlockerStart: 06-28-2024 End: 94-24-7603prqz 1 capsule by mouth once dailyTamsulosin 0.4 mg capsule Discontinued 0.4 MG PO Daily August 16, 2024 1:00am May 200:15am Triamcinolone (20 sources)CorticosteroidStart: 32-40-0566Zrwlist -40 mg Sep, 40 mg Start: 84-64-7884Tqxbgiy -40 mg Mar,Start: 52-51-6921Wzzlhun -40 mg Sep, 40 mgtrospium chloride 20 mg oral tablet (11 sources)Cholinergic Muscarinic AntagonistStart: 10-08-2024 End: 48-08-8305pddb 1 tablet by mouth twice dailyTrospium 20 mg tablet Discontinued 20 MG PO Twice daily 180 0 January 03, 2025 9:28am March 31, 2025 8:24am administer on an empty stomachvalACYclovir 500 mg oral tablet (7 sources)Herpesvirus Nucleoside Analog DNA Polymerase Inhibitor, Herpes Simplex Virus Nucleoside Analog DNA Polymerase Inhibitor, Herpes Zoster Virus Nucleoside Analog DNA Polymerase InhibitorStart: 05-25-2024 End: 11-23-5446mhqr 1 tablet by mouth twice dailyValacyclovir 500 mg tablet Discontinued 500 MG PO Twice daily May 30, 2024 1:00am May 20, 2025 10:15amvasopressin (PITRESSIN) 40 Units in sodium chloride 0.9 % 40 mL (1 Units/mL) infusion (1 source)Start: 05-21-2024 End: .04 Units/min (2.4 mL/hr), intravenous, Continuous, Starting on Mon05/21/24 at 1730, *For SEPSIS use* VESICANT (RED) Problems Active Problems Problem ClassificationProblemDateDocumented DateEpisodic/ChronicAbdominal hernia (5 sources)Irreducible incisional hernia; Translations: [Hernia of anterior abdominal wall without obstructionAND without gangrene]59-72-8653Jbmtstev Calculus of urinary tract (20 sources)Kidney stone; Translations: [Calculus of kidney]Onset: 01-16-2024 76-25-3807UamrkakxGefjhmm obstructive pulmonary disease and bronchiectasis (6 sources)Bronchitis; Translations: [Bronchitis, not specified as acute or chronic]89-02-1058DkvxshisOaekeqizyk associated with dizziness or vertigo (2 sources)Postural dizziness; Translations: [Dizziness and giddiness]08-19-2024 EpisodicEssential hypertension (5 sources)Hypertensive disorder; Translations: [Essential (primary) hypertension]21-87-8355ZobrmlfLkdzu and electrolyte disorders (2 sources)Hypokalemia; Translations: [Hypokalemia]Onset: EpisodicGenitourinary symptoms and ill-defined conditions (10 sources)Incontinence; Translations: [Incontinence without sensory awareness] Onset: [id number] symptoms and ill-defined conditions (9 sources)Microscopic hematuria; Translations: [Nocturia]Onset: 06-07-2016 45-84-1855QflwtqnbXnskwcga; including migraine (12 sources)Migraine; Translations: [Episodic tension-type headache]12-12-2019 ChronicHeart valve disorders (5 sources)Heart murmur; Translations: [O/E - cardiac murmur]Onset: 08-23-2018 49-61-2864AejuceooGvahepfzv (1 source)Influenza due to other identified influenza virus with other respiratory manifestations; Translations: [Influenza with other respiratory manifestations]58-94-7553LsbhsfpfDjjeimwop disorders (3 sources)Disorder of menstruation; Translations: [Unspecified disorder of menstruation and other abnormal bleeding from female genital tract]Onset: 74-67-1850XrpnniuEieonjrjfrxfem (20 sources)Osteoarthritis of knee; Translations: [Unilateral primary osteoarthritis, right knee]ChronicOther circulatory disease (5 sources)Elevated blood-pressure reading without diagnosis of hypertension; Translations: [Elevated blood-pressure reading, without diagnosis of hypertension]Onset: 398204-26-0911HujfcswxGuzyc connective tissue disease (4 sources)Pain in left lower limb; Translations: [Pain in left leg]Episodic Other connective tissue disease (4 sources)Thigh pain; Translations: [Pain in unspecified thigh]EpisodicOther diseases of bladder and urethra (6 sources)Overactive bladder; Translations: [Overactive bladder]05-22-2024 ChronicOther diseases of kidney and ureters (1 source)Kidney disease; Translations: [Other specified disorders of kidney and ureter]60-11-6817PxmafckVgfwe diseases of kidney and ureters (2 sources)Other specified disorders of kidney and ureter; Translations: [Other specified disorders of kidney and ureter]Onset: 22-29-2219XrnmizzEpugt diseases of kidney and ureters (1 source)Kidney -64-8159IdiahwzyUowny nervous system disorders (4 sources)Meralgia paresthetica of left leg; Translations: [Meralgia paresthetica, left lower limb]ChronicOther nervous system disorders (4 sources)Chronic pain; Translations: [Other chronic pain]ChronicOther non- traumatic joint disorders (8 sources)Knee pain; Translations: [Pain in right knee]EpisodicOther nutritional; endocrine; and metabolic disorders (10 sources)Body mass index 40+ - severely obese; Translations: [Body mass index (BMI) 50.0-59.9, adult]Onset: 67-18-9529SjnzovdLheiu nutritional; endocrine; and metabolic disorders (5 sources)Disorder of mineral metabolism; 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, unspecified]Onset: 070588-14-9307ZcdvaetLdrum nutritional; endocrine; and metabolic disorders (1 source)Disorder of mineral metabolism, unspecified; 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, unspecified]Onset: 66-52-1625XccojsvWwzhc screening for suspected conditions (not mental disorders or infectious disease) (10 sources)Patient encounter status; Translations: [Encounter for screening mammogram for malignant neoplasm of breast]Onset: 275291-42-3115Kpmdvnkp Other upper respiratory infections (6 sources)Acute maxillary sinusitis; Translations: [Acute maxillary sinusitis, unspecified]Onset: 04-97-3560BnlzmxncObgsftridr (except in labor) (20 sources)Septic shock; Translations: [Sepsis, unspecified organism]Onset: 312242-54-7796BmulwwgdGqnagvfnbff; intervertebral disc disorders; other back problems (4 sources)Spondylosis; Translations: [Other spondylosis, lumbar region]Chronic Spondylosis; intervertebral disc disorders; other back problems (5 sources)Low back pain; Translations: [Low back pain, unspecified]Onset: 831584-69-1864OnlnsetiHncywdldr-eyxnayt disorders (3 sources)Tobacco user; Translations: [Nicotine dependence, cigarettes, in remission]ChronicUnclassified (2 sources)Asymptomatic microscopic sjqrakege12-34-0115Dwejgde tract infections (6 sources)Urinary tract infectious disease; Translations: [Urinary tract infection, site not specified]93-20-1404Qpikdfwh Past or Other Problems Problem ClassificationProblemDateDocumented DateEpisodic/ChronicAbdominal pain (3 sources)Flank pain; Translations: [Unspecified abdominal pain]Onset: 997093-97-9702GjlbwtxkPeotqjbbn infection; unspecified site (5 sources)Bacteremia caused by Gram-negative bacteria; Translations: [Bacteremia]Onset: 842770-74-7316DkxysjstLayu disorders (14 sources)Mood disordersOnset: 05-21-2024 Resolved: 677394-99-8332Ytiem aftercare (3 sources)Surgical follow-up; Translations: [Follow-up examination, following unspecified surgery]Onset: 35-40-9237OkeervwyDnacg female genital disorders (3 sources)Hypertrophy of uterus; Translations: [Hypertrophy of uterus]Onset: 86-51-8363SkyuhleiJkmef non-traumatic joint disorders (3 sources)Arthralgia of the pelvic region and thigh; Translations: [Pain in joint, pelvic region and thigh]Onset: 41-47-6221BgtxcptjTfjcjrkz codes; unclassified (1 source)Pain, unspecified; Translations: [Pain, unspecified]Onset: 05-21-2024 EpisodicShock (2 sources)Severe sepsis with septic shock; Translations: [Severe sepsis with septic shock]Onset: 57-50-4211Prcqjseg Results Test NameValueInterpretationReference RangeFacilityUS community outreach [facility] 23-17-9450DU community outreach [place] [address] Ultrasound Report Signed Patient: Sharri Murillo MR#: [id number] : 1955 Acct:[id number] Age/Sex: 69 / F ADM Date: 04/08/25 Loc: Room: Type: REG REF Attending Dr: [facility] Ordering Provider: BHARATHI AVILES Date of Service: 04/08/25 US/US community outreach KATY: SCREENING Copies to: COMMUNITY,OUTREACH LOWER EXTREMITY SEGMENTAL ARTERIAL DOPSCAN (PVR) INDICATION: [...] Heart MD,FACS,FSVS 04/08/2025 2:09 PM Dictation Location: [place] [address] Tech: Shira Deng Transcribed By: PWS 04/08/25 140 Dictated By: Jovany Heart MD 04/08/25 140 Signed By: 04/08/25 1409[facility] Physician [facility]US community outreach aortaon 33-59-9659SM [facility] [place] [id number] Ultrasound Report Signed Patient: Sharri Murillo MR#: [id number] : 1955 Acct:[id number] Age/Sex: 69 / F ADM Date: 04/08/25 Loc: Room: Type: [facility] Attending Dr: [facility] Ordering Provider: BHARATHI AVILES Date of Service: 04/08/25 US/US [facility] aorta: SCREENING Copies to: [facility] Aorta screening ultrasound HISTORY: Screening exam Normal caliber abdominal aorta. US/US [facility] aorta IMPRESSION: No abdominal aortic aneurysm. Impression dictated by: Milton Yap M.D. 04/08/2025 3:29 PM Dictation Location: [place] [address] Tech: Lamar Kathleen Transcribed By: PWS 04/08/25 1529 Dictated By: Milton Yap DO 04/08/25 1529 Signed By: 04/08/25 1529[facility] Physician [facility] CentralUS community outreach carotidon 35-67-6535SI community outreach carotidTRIHEALTH [facility] Main [address] [address] Ultrasound Report Signed Patient: Sharri Murillo MR#: [id number] : 1955 Acct:[id number] Age/Sex: 69 / F ADM Date: 04/08/25 Loc: Room: Type: REG REF Attending Dr: Bharathi Aviles Ordering Provider: BHARATHI AVILES Date of Service: 04/08/25 /[facility] carotid: SCREENING Copies to: [facility] CAROTID DUPLEX INDICATION: [facility] carotid screening program. PROCEDURE: Color-flow duplex scanning [...] the common carotid artery is 0.99 . /[facility] carotid IMPRESSION: NO HEMODYNAMICALLY SIGNIFICANT STENOSIS OF EITHER EXTRACRANIAL INTERNAL CAROTID ARTERY. Impression dictated by: Jovany Heart MD,FACS,FSVS 04/08/2025 2:08 PM Dictation Location: [place] [address] Tech: Lamar Frannie Transcribed By: KAMILAH 04/08/25 1408 Dictated By: Jovany Heart MD 04/08/25 140 Signed By: 04/08/[address] [place] [address] Physician GroupCT UROGRAMon 42-60-8576KV UROGRAMCT UROGRAM History: Renal stone. Pelvic caliectasis. [...] by Car Elliott MD on 12/11/2024 8:22 AMNormalProQuail Creek Surgical HospitalCREATININE, SERUMon 18-87-5083Glkuzrskks [Mass/Vol]0.59 mg/dLNormal 0.40-1.00ProQuail Creek Surgical HospitalComment on above:Result Comment: METHOD TRACEABLE TO IDSD STANDARDPerformed By: #### EDIPHONE OPERATOR #### [facility] ([facility]) [address] [place] [address] VIREGFR (CKD-EPI) NON-RACE DEPENDENT>^90Normal>=60[facility] CenterComhavenwyck hospital on above:Result Comment: Reported eGFR is based on the CKD-EPI 2020 equation that does not use a race coefficient.Performed By: #### EDIPHONE OPERATOR #### [facility] ([facility]) [address] [place] [address] VIRCreatinine includes GFR, serumon 1957Bajjooppyw [Mass/Vol]0.59 mg/dL0.40 - 1.00 mg/dLTriHealth McCullough-Hyde Memorial HospitalComment on above: METHOD TRACEABLE TO IDMS STANDARDEGFR Non-Race Dependent- [facility] Medical CenterComment on above:Reported eGFR is based on the CKD-EPI 2020 equation that does not use a race coefficient. Interpretation and review of laboratory resultsNormalMarshfield Medical Center - Ladysmith [facility] SystemUS RETROPERITONEAL COMPLETEon 45-75-9791HH RETROPERITONEAL COMPLETEUS RETROPERITONEAL COMPLETE ULTRASOUND RETROPERITONEAL COMPLETE [...] Ruel Uribe DO on 11/13/2024 10:03 AM I, Lance Calderon MD have personally reviewed the image(s) and agree with and/or edited the report Finalized by Lance Calderon MD on 11/13/2024 11:04 [facility] HospitalCT ABDOMEN AND PELVIS WO CONTon 60-57-6755TQ ABDOMEN AND PELVIS WO CONT CT ABDOMEN [...] by Aleksandra Gamboa MD on 08/22/2024 12:55 [facility] STONE ANALYSISon 24-83-8192IRJIFA COMMENTSee NoteNoKettering Health DaytonComment on above:Result Comment: NOTE For stones containing calcium oxalate, calcium phosphate, and/or uric acid, a 24 hr urinary supersaturation test may help detect underlying risk factors for this type of stone formation and provide guidance for a stone prevention strategy. ADDITIONAL INFORMATION This test was developed and its performance characteristics determined by [facility] in a manner consistent with CLIA requirements. This test has not been cleared or approved by the U.S. Food and Drug Administration. Test Performed by: [facility] [address] [place] [address] Piercer: John Pickett Ph.D.; CLIA# [id number]:LEFT KIDNEY STONE NormalProWadsworth-Rittman HospitalComment on above:Result Comment: Corrected on 08/13 AT 1509: Previously reported as LEFT KIDNEY STONEStone Roalotzvufvcwy273% Calcium oxalate monohydrate.NormalProWadsworth-Rittman HospitalBacteria identified Cx Nom (U)on 54-68-8559Gpuwglr comment (Unsp spec) [Interp]<10,000 ORGANISMS/ML NORMAL URO GENITAL FLORAProFayette County Memorial Hospital SystemProWilson HealthBASIC METABOLIC PANLon 11-43-5398Itbao gap [Moles/Vol]7 mmol/LNormal5-15ProWadsworth-Rittman HospitalComment on above:Performed By: #### BERNARD, 37552-5, CMP, 43071-7, 2777-1, CBCA, 57223-8 #### [facility] ([id number]) [address], [address] [place], [place] [address]Jbyfwrj [Mass/Vol]9.0 mg/dLNormal8.5-10.5PGreen Cross HospitalComment on above:Performed By: #### BERNARD, 60987-2, CMP, 00019-1, 2777-1, CBCA, 94437-3 #### [facility] ([id number]) [address], [address] [place], [place] [address]Dlobaovo [Moles/Vol]101 mmol/FBvdtvw28-965TonKbvpaq [place] HospitalComment on above:Performed By: #### BERNARD, 48965-5, CMP, 67166-0, 2777-1, CBCA, 46428-7 #### [facility] ([id number]) [address], [address] [place], [place] [address]HA6 [Moles/Vol]30 mmol/IVyzrev99-40VzbLgalof [facility] Comment on above:Performed By: #### PINR, 30746-7, CMP, 84400-3, 2777-1, CBCA, 70457-0 #### [facility] ([id number]) [address], [address] [place], [place] [address]Gwiaiwhipu [Mass/Vol]0.68 mg/dLNormal0.40-1.00ProWadsworth-Rittman HospitalComment on above:Result Comment: METHOD TRACEABLE TO IDMS STANDARD Performed By: #### PINR, 31277-5, CMP, 62471-9, 2777-1, CBCA, 15080-9 #### [facility] ([id number]) [address] [address] [place], [place] [address]vPWP (CKD-EPI) NON-RACE DEPENDENT>90Normal>59ProWadsworth-Rittman HospitalComment on above:Result Comment: Reported eGFR is based on the CKD-EPI 2020 equation that does not use a race coefficient.Performed By: #### PINR, 69127-4, CMP, 69090-2, 2777- 1, CBCA, 95066-6 #### [facility] ([id number]) [address], [address] [place], [place] [address]Qcwlepw [Mass/Vol]96 mg/oZRlsvfa47-40MjeTxocpm [facility] Comment on above:Performed By: #### KATLYNR, 06453-8, CMP, 48976-0, 2777-1, CBCA, 42993-3 #### [facility] ([id number]) [address], [address] [place], [place] [address]Xxctdinwn [Moles/Vol]3.6 mmol/LNormal3.5-5.0ProWadsworth-Rittman HospitalComment on above:Performed By: #### PINR, 03837-6, CMP, 39702-0, 2777-1, CBCA, 38169-5 #### [facility] ([id number]) [address], [address] [place], [place] [address]Ymjdzg [Moles/Vol]138 mmol/JOrwpxc405-223WeqYorpljMarietta Memorial HospitalComment on above:Performed By: #### PINR, 08879-0, CMP, 41321-8, 2777-1, CBCA, 97348-2 #### [facility] ([id number]) [address], [address] [place], [place] [address]Twhx nitrogen [Mass/Vol]16 mg/dLNormal5-27ProWadsworth-Rittman HospitalComment on above:Performed By: #### PINR, 98130-1, CMP, 30115-3, 2777-1, CBCA, 22162-6 #### [facility] ([id number]) [address], [address] [place], [place] [address]Rlnok Metabolic Panelon 60-04-8087Jxcha gap [Moles/Vol]7 mmol/L5 - 15 mmol/LProMedica Health SystemCalcium [Mass/Vol]9 mg/dL8.5 - 10.5 mg/dL [facility] SystemChloride [Moles/Vol]101 mmol/L98 - 109 mmol/LProMedica Health SystemCO2 [Moles/Vol]30 mmol/L22 - 32 mmol/LProMedica Health System Creatinine [Mass/Vol]0.68 mg/dL0.40 - 1.00 mg/dLTriHealth McCullough-Hyde Memorial HospitalComment on above:METHOD TRACEABLE TO IDMS STANDARDeGFR (CKD-EPI)non-race dependent- PINF Tri[facility] McCullough-Hyde Memorial HospitalComment on above: Reported eGFR is based on the CKD-EPI 2020 equation that does not use a race coefficient. Glucose [Mass/Vol]96 mg/dL65 - 99 mg/dLUniversity Hospitals [facility] SystemPotassium [Moles/Vol]3.6 mmol/L3.5 - 5.0 mmol/LProMedica Health SystemSodium [Moles/Vol] 138 mmol/L134 - 146 mmol/LProMedica Health SystemUrea nitrogen [Mass/Vol]16 mg/dL5 - 27 mg/dLTriHealth McCullough-Hyde Memorial HospitalProFayette County Memorial Hospital SystemURINALYSISon 49-48-3086Corcntynp Ql (U)NegativeNormalNEGProMedica Ashraf HospitalComment on above:Performed By: #### PINR, 60402-4, CMP, 44754-8, 2777-1, CBCA, 68055-9 #### [facility] ([id number]) [address], [address] [place], [place] [address]WPSMR/HGBLargeAbnormalNEGProMedica Ashraf HospitalComment on above:Performed By: #### PINR, 59029-9, CMP, 66452-9, 2777-1, CBCA, 34460-5 #### [facility] ([id number]) [address], [address] [place], [place] [address]Nafeb (U)YELLOWNormalYELLOWProMedica Ashraf HospitalComment on above:Performed By: #### PINR, 37180-3, CMP, 45466-6, 2777-1, CBCA, 55799-9 #### [facility] ([id number]) [address], [address] [place], [place] [address]Vvlgqdl Ql (U)NegativeNormalNEGProMedica Ashraf HospitalComment on above:Performed By: #### PINR, 19176-0, CMP, 72780-1, 2777-1, CBCA, 77090-4 #### [facility] ([id number]) [address], [address] [place], [place] [address]Ouwkrkf Ql (U)NegativeNormalNEGProMedica Ashraf HospitalComment on above:Performed By: #### PINR, 15442-6, CMP, 56341-6, 2777-1, CBCA, 54578-8 #### [facility] ([id number]) [address], [address] [place], [place] [address]Vwvfaotdx esterase Test strip Ql (U)SmallAbnormalNEGProMedica Ashraf HospitalComment on above:Performed By: #### PINR, 73378-7, CMP, 61546-4, 2777-1, CBCA, 17934-1 #### [facility] ([id number]) [address], [address] [place], [place] [address]PGCFFZLVFWPKXBishykxuEEUGHnlPtxqjw [facility] HospitalComment on above:Performed By: #### PINR, 69336-8, CMP, 00366-8, 2777-1, CBCA, 61203-8 #### [facility] ([id number]) [address], [address] [place], [place] [address]Jgtarek Ql (U)NegativeNormalNEGProUniversity Hospitals Port[facility] Medical Centerca Aultman HospitalComment on above:Performed By: #### PINR, 84456-9, CMP, 11392-7, 2777-1, CBCA, 30279-2 #### [facility] ([id number]) [address], [address] [place], [place] [address]sB (U)6.0 [pH]Normal5.0-8.5PWayne HealthCare Main Campus HospitalComment on above:Performed By: #### PINR, 69359-8, CMP, 04290-0, 2777-1, CBCA, 82300-7 #### [facility] ([id number]) [address], [address] [place], [place] [address]Bnvxxei Ql (U)50 mg/dLAbnormalNEGProUniversity Hospitals [facility] Medical Centerca [facility] Comment on above:Performed By: #### PINR, 36206-6, CMP, 41403-1, 2777-1, CBCA, 90251-7 #### [facility] ([id number]) [address], [address] [place], [place] [address]D.B.XNSAY846 /hpfHigh0-5PGreen Cross HospitalComment on above:Performed By: #### PINR, 32602-4, CMP, 95963-1, 2777-1, CBCA, 25367-6 #### [facility] ([id number]) [address], [address] [place], [place] [address]Eofbthrk gravity (U) [Rel density]1.420Yjhuil3.003-1.035 [facility] Aultman HospitalComment on above:Performed By: #### PINR, 35466-4, CMP, 51560-9, 2777-1, CBCA, 00205-4 #### [facility] ([id number]) [address], [address] [place], [place] [address]NVROXEIV EPITHELIUM1 /hpfNormal0-5PWayne HealthCare Main Campus Hospital Comment on above:Performed By: #### PINR, 47343-4, CMP, 28499-4, 2777-1, CBCA, 96437-0 #### [facility] ([id number]) [address], [address] [place] [address]MRNHCETHQPXUYObaxajqiNUFUZFqeGyqprg [facility] HospitalComment on above:Performed By: #### PINR, 51973-3, CMP, 32030-2, 2777-1, CBCA, 69050-1 #### [facility] ([id number]) [address], [address] [place] [address]Onygsfpbizdl (U) [Mass/Vol]mg/dLNormal<1.1PGreen Cross HospitalComment on above:Performed By: #### PINR, 13540-6, CMP, 25767-9, 2777-1, CBCA, 57818-3 #### [facility] ([id number]) [address], [address] [place], [place] [address]X.B.CELLS2 /hpfNormal0-5PGreen Cross HospitalComment on above:Performed By: #### PINR, 43444-1, CMP, 38509-6, 2777-1, CBCA, 46160-6 #### [facility] ([id number]) [address], [address] [place], [place] [address]WVORG CULTUREon 30-60-2475Vswdrykr identified Cx Nom (U)CULTURE RESULTS <10,000 ORGANISMS/ML NORMAL URO GENITAL FLORAAdams County Regional Medical Center Comment on above:Performed By: #### PINR, 16194-6, CMP, 97741-1, 2777-1, CBCA, 97419-3 #### [facility] ([id number]) [address] [place] [address], [address] [place], [place] [address]Tuxhmmxlmjkv 10-97-5541Zstbjezyi Ql (U)NegativeNegative^Negative [facility] SystemColor (U)YELLOWYELLOW^YELLOWTriHealth McCullough-Hyde Memorial Hospital Epithelial cells Auto (Urine sed) [#/Area]1POhio State East HospitalGlucose (U) [Mass/Vol]NegativeNegative^Negative mg/dLTriHealth McCullough-Hyde Memorial HospitalHemoglobin Auto test strip Ql (U)LargeAbnormalNegative^NegativeTriHealth McCullough-Hyde Memorial Hospital Interpretation and review of laboratory resultsAbnoCaroMont Regional Medical Center Ketones (U) [Mass/Vol]NegativeNegative^Negative mg/dLTriHealth McCullough-Hyde Memorial Hospital Leukocyte esterase Auto test strip Ql (U)SmallAbnormalNegative^NegativeUniversity [facility]als [facility] SystemMucus Ql (Urine sed)PRESENTAbnormalNONE^NONEUniversity [facility]als [facility] SystemNitrite Auto test strip Ql (U)NegativeNegative^NegativeTriHealth McCullough-Hyde Memorial HospitalpH (U)6 [pH]5.0 - 8.5PHolmes County Joel Pomerene Memorial Hospital SystemProtein (U) [Mass/Vol]50 mg/dL AbnormalNegative^NegativeTriHealth McCullough-Hyde Memorial HospitalRBC Auto (Urine sed) [#/Area]633 ECU Health Bertie Hospitalpecific gravity Refractometry automated (U) [Rel density]1.0121.003 - 1.035TriHealth McCullough-Hyde Memorial HospitalTurbidity Ql (U)HAZYAbnormal CLEAR^CLEARTriHealth McCullough-Hyde Memorial HospitalUrobilinogen Qn (U)NINMercy hospital springfield WBC Auto (Urine sed) [#/Area]2PRiver Falls Area Hospital System BASIC METABOLIC PANLon 18-22-7458Brnvj gap [Moles/Vol]12 mmol/LNormal5-15 [facility] Memorial HospitalComment on above:Performed By: #### PINR, 46655-5, CMP, 31103-3, 2777-1, CBCA, 83933-6 #### [facility] ([id number]) [address], [address] [place], [place] [address]Wbyakvn [Mass/Vol]9.2 mg/dLNormal8.5-10.5ProMedica Ashraf HospitalComment on above:Performed By: #### PINR, 90527-3, CMP, 02963-7, 2777-1, CBCA, 92348-2 #### [facility] ([id number]) [address], [address] [place], [place] [address]Xxgiwdib [Moles/Vol]105 mmol/MFylazz01-050CkwGwmewh Ashraf HospitalComment on above:Performed By: #### PINR, 43351-7, CMP, 19638-3, 7-1, CBCA, 52912-1 #### [facility] ([id number]) [address], [address] [place], [place] [address]GX0 [Moles/Vol]25 mmol/NFztogs05-69WjfJanheh [facility] Comment on above:Performed By: #### PINR, 10198-3, CMP, 22790-3, 2777-1, CBCA, 16670-9 #### [facility] ([id number]) [address], [address] [place], [place] [address]Rwrqepmpjk [Mass/Vol]0.53 mg/dLNormal0.40-1.00ProMedica Ashraf HospitalComment on above:Result Comment: METHOD TRACEABLE TO IDMS STANDARD Performed By: #### PINR, 26009-9, CMP, 81213-0, 2777-1, CBCA, 75491-9 #### [facility] ([id number]) [address], [address] [place], [place] [address]oXMN (CKD-EPI) NON-RACE DEPENDENT>90Normal>59ProMedica Ashraf HospitalComment on above:Result Comment: Reported eGFR is based on the CKD-EPI 2020 equation that does not use a race coefficient.Performed By: #### PINR, 41205-7, CMP, 84081-7, 2777- 1, CBCA, 06731-2 #### [facility] ([id number]) [address], [address] [place], [place] [address]Rajnwir [Mass/Vol]105 mg/pFPzhc07-65RozMnlfmb [facility] Comment on above:Performed By: #### PINR, 83606-1, CMP, 25495-9, 2777-1, CBCA, 48574-5 #### [facility] ([id number]) [address], [address] [place], [place] [address]Mdigdonkf [Moles/Vol]3.2 mmol/LLow3.5-5.0ProWadsworth-Rittman HospitalComment on above:Performed By: #### PINR, 61925-0, CMP, 54293-5, 7-1, CBCA, 48147-0 #### [facility] ([id number]) [address], [address] [place], [place] [address]Wnkitp [Moles/Vol]142 mmol/BHophyy552-184UtoVchpbz [facility] HospitalComment on above:Performed By: #### PINR, 16152-6, CMP, 26226-1, 7-1, CBCA, 00541-0 #### [facility] ([id number]) [address], [address] [place], [place] [address]Zjdz nitrogen [Mass/Vol]16 mg/dLNormal5-27ProWadsworth-Rittman HospitalComment on above:Performed By: #### PINR, 27586-6, CMP, 45320-2, 2777-1, CBCA, 61934-0 #### [facility] ([id number]) [address], [address] [place], [place] [address]YJICWMAF BLOOD COUNTon 85-45-7538Puocaeoowgr distribution width (RBC) [Ratio]15.3 %High11.5-15.0ProUniversity Hospitals Portage Medical Centerca Cuba HospitalComment on above: Performed By: #### PINR, 61396-3, CMP, 44041-5, 2777-1, CBCA, 27056-8 #### [facility] ([id number]) [address], [address] [place], [place] [address]Sitapltpvx (Bld) [Volume fraction]35.5 %Dgmllu07-37SckOmwxqh [facility] HospitalComment on above:Performed By: #### PINR, 91297-4, CMP, 32660-1, 2777-1, CBCA, 83581-8 #### [facility] ([id number]) [address], [address] [place], [place] [address]Hhothpafwi (Bld) [Mass/Vol]12.0 g/uZLyaqho44.7-15.5ProMedica Cuba HospitalComment on above:Performed By: #### PINR, 93940-3, CMP, 35742-9, 2777-1, CBCA, 27511-0 #### [facility] ([id number]) [address], [address] [place], [place] [address]QLK (RBC) [Entitic mass]30.8 fcNlbjhd69-49VctQsrqza [place] HospitalComment on above:Performed By: #### PINR, 90607-4, CMP, 64524-4, 2777-1, CBCA, 28253-8 #### [facility] ([id number]) [address], [address] [place], [place] [address]URPB (RBC) [Mass/Vol]33.8 g/pKSbdumh23-38FmwOtympg [place] HospitalComment on above:Performed By: #### PINR, 48908-9, CMP, 86956-6, 2777-1, CBCA, 20297-9 #### [facility] ([id number]) [address], [address] [place] [address]GOU (RBC) [Entitic vol]91 jCApiqcc25-308GihBejlly [place] HospitalComment on above:Performed By: #### PINR, 34637-1, CMP, 35742-9, 2777-1, CBCA, 46837-9 #### [facility] ([id number]) [address], [address] [place] [address]Xgjmsmvo mean volume (Bld) [Entitic vol]7.2 fLNormal7-12 [facility] HospitalComment on above:Performed By: #### PINR, 19785-8, CMP, 84185-0, 2777-1, CBCA, 34461-4 #### [facility] ([id number]) [address], [address] [place], [place] [address]Zqbkyvkda (Bld) [#/Vol]162 10*3/jPBatgup573-820CwfWqweag [place] HospitalComment on above:Performed By: #### PINR, 70969-3, CMP, 25459-3, 2777-1, CBCA, 10409-2 #### [facility] ([id number]) [address], [address] [place], [place] [address]QAY COUNT3.89 X10E12/LNormal3.80-5.20ProOhio[facility] Comment on above:Performed By: #### PINR, 98599-1, CMP, 06016-8, 2777-1, CBCA, 71226-2 #### [facility] ([id number]) [address], [address] [place], [place] [address]POR (Bld) [#/Vol]7.9 10*3/uLNormal4.0-11.0ProUniversity Hospitals Portage Medical Centerca [place] HospitalComment on above:Performed By: #### PINR, 23422-8, CMP, 80295-2, 2777-1, CBCA, 09177-9 #### [facility] ([id number]) [address], [address] [place], [place] [address]UP UROGRAPHY RETRO OPERATIVE W OR WO KUBon 80-55-9360UV UROGRAPHY RETRO OPERATIVE W OR WO KUBFL [...] by Marcus Nuno MD on 06/28/2024 2:59 PMNormalOhio Valley Hospital STONE ANALYSISon 80-43-5738SONEAZ COMMENTSee NoteNormalMarietta Memorial HospitalComment on above:Result Comment: NOTE For stones containing calcium oxalate, calcium phosphate, and/or uric acid, a 24 hr urinary supersaturation test may help detect underlying risk factors for this type of stone formation and provide guidance for a stone prevention strategy. ADDITIONAL INFORMATION This test was developed and its performance characteristics determined by [facility] in a manner consistent with CLIA requirements. This test has not been cleared or approved by the U.S. Food and Drug Administration. Test Performed by: [facility] [place] [address] Piercer: John Pickett Ph.D.; CLIA# [id number]:LEFT URETERAL STONENormalProRiverside Methodist Hospitalton Ytrejalhuvpnte348% Calcium oxalate monohydrate.NormalProWadsworth-Rittman HospitalBASIC METABOLIC PANLon 06-27-2024 Anion gap [Moles/Vol]11 mmol/LNormal5-15[facility] Memorial HospitalComment on above:Performed By: #### PINR, 98827-5, CMP, 55017-7, 2777-1, CBCA, 94262-8 #### [facility] ([id number]) [address], [address] [place], [place] [address]Gimjqnn [Mass/Vol]10.0 mg/dLNormal8.5-10.5PGreen Cross HospitalComment on above:Performed By: #### PINR, 18132-9, CMP, 89753-5, 2777-1, CBCA, 35989-0 #### [facility] ([id number]) [address], [address] [place], [place] [address]Yqgjmmca [Moles/Vol]102 mmol/DUnjgip10-304IqzFyvxrj [place] HospitalComment on above:Performed By: #### PINR, 52473-7, CMP, 81163-7, 2777-1, CBCA, 71278-0 #### [facility] ([id number]) [address], [facility] [address] [place], [place] [address]YN3 [Moles/Vol]25 mmol/UHhnrpj08-79EymIkokzs [facility] Comment on above:Performed By: #### PINR, 24878-8, CMP, 69155-4, 2777-1, CBCA, 46355-0 #### [facility] ([id number]) [address], [facility] [address] [place], [place] [address]Jglhpimibl [Mass/Vol]0.61 mg/dLNormal0.40-1.00ProWadsworth-Rittman HospitalComment on above:Result Comment: METHOD TRACEABLE TO IDMS STANDARD Performed By: #### PINR, 91024-1, CMP, 29526-5, 2777-1, CBCA, 92181-7 #### [facility] ([id number]) [address] [address] [place], [place] [address]rKTW (CKD-EPI) NON-RACE DEPENDENT>90Normal>59ProOhiohealth Southeastern Medical Center HospitalComment on above:Result Comment: Reported eGFR is based on the CKD-EPI 2020 equation that does not use a race coefficient.Performed By: #### PINR, 08357-7, CMP, 30908-9, 2777- 1, CBCA, 85396-5 #### [facility] ([id number]) [address], [address] [place], [place] [address]Khxquti [Mass/Vol]111 mg/zOAvkq12-02NslVkibidWadsworth-Rittman Hospital Comment on above:Performed By: #### PINR, 76693-2, CMP, , 2776-07, CBCA, 71329-3 #### [facility] ([id number]) [address], [address] [place], [place] [address]Pxwziqvir [Moles/Vol]3.5 mmol/LNormal3.5-5.0ProOhiohealth Southeastern Medical Center HospitalComment on above:Performed By: #### BERNARD, 59991-6, CMP, , 2776-07, CBCA, 27941-4 #### [facility] ([id number]) [address], [address] [place], [place] [address]Btcdve [Moles/Vol]138 mmol/QMljcwg027-897BdmUgypwb [place] HospitalComment on above:Performed By: #### BERNARD, 58280-7, CMP, , 2776-07, CBCA, 88827-8 #### [facility] ([id number]) [address], [address] [place], [place] [address]Ynvg nitrogen [Mass/Vol]20 mg/dLNormal5-27ProOhiohealth Southeastern Medical Center HospitalComment on above:Performed By: #### PINR, 89098-7, CMP, , 2776-07, CBCA, 99508-3 #### [facility] ([id number]) [address], [address] [place], [place] [address]IROEULEI BLOOD COUNTon 49-89-6863Rvdugcffvxp distribution width (RBC) [Ratio]16.0 %High11.5-15.0ProOhiohealth Southeastern Medical Center HospitalComment on above: Performed By: #### PINR, 36173-7, CMP, 66781-3, 2777-1, CBCA, 59138-6 #### [facility] ([id number]) [address], [address] [place], [place] [address]Tngjjqcwzh (Bld) [Volume fraction]38.2 %Vfbebe41-69YhnGyzcot [place] HospitalComment on above:Performed By: #### PINR, 01097-0, CMP, 68870-3, 2777-1, CBCA, 29052-6 #### [facility] ([id number]) [address], [address] [place], [place] [address]Gzyisupbkx (Bld) [Mass/Vol]12.8 g/rQImfpfs33.7-15.5ProMedica [place] HospitalComment on above:Performed By: #### PINR, 89053-6, CMP, 46186-1, 2777-1, CBCA, 82406-8 #### [facility] ([id number]) [address], [address] [place], [place] [address]UBH (RBC) [Entitic mass]30.5 vrEchapa76-47HfsEtinnz [place] HospitalComment on above:Performed By: #### PINR, 01485-5, CMP, 71474-6, 2777-1, CBCA, 14367-5 #### [facility] ([id number]) [address], [address] [place], [place] [address]WAPT (RBC) [Mass/Vol]33.5 g/oCTkqvwc71-37PcoNquvev [place] HospitalComment on above:Performed By: #### PINR, 84297-6, CMP, 10293-0, 2777-1, CBCA, 94833-9 #### [facility] ([id number]) [address], [address] [place], [place] [address]GUP (RBC) [Entitic vol]91 zNFiyssx95-743SdiHdepas [place] HospitalComment on above:Performed By: #### PINR, 29920-4, CMP, 36737-6, 2777-1, CBCA, 59258-4 #### [facility] ([id number]) [address], [address] [place], [place] [address]Vigurlja mean volume (Bld) [Entitic vol]7.5 fLNormal7-12 [facility] [place] HospitalComment on above:Performed By: #### PINR, 72283-7, CMP, 33482-8, 2777-1, CBCA, 01553-3 #### [facility] ([id number]) [address], [address] [place], [place] [address]Jpkkohkea (Bld) [#/Vol]213 10*3/nAKyhrdm833-800GdyItffmi [place] HospitalComment on above:Performed By: #### PINR, 18105-6, CMP, 45929-5, 2777-1, CBCA, 89314-5 #### [facility] ([id number]) [address], [address] [place], [place] [address]UOY COUNT4.20 X10E12/LNormal3.80-5.20ProOhio[facility] Comment on above:Performed By: #### PINR, 34728-6, CMP, 36383-5, 2777-1, CBCA, 50039-3 #### [facility] ([id number]) [address], [address] [place], [place] [address]WWX (Bld) [#/Vol]9.9 10*3/uLNormal4.0-11.0ProMedica [place] HospitalComment on above:Performed By: #### PINR, 81819-3, CMP, 05621-4, 2777-1, CBCA, 78011-1 #### [facility] ([id number]) [address], [address] [place], [place] [address]ZTCHMXMEQZwi 77-82-0668Vzmyuglyu Ql (U)NegativeNormalNEG [facility] Medical CenterComment on above:Performed By: #### UA #### [facility] ([id number]) [address] [facility], [address] [place], [place] [address]IWOXL/HGBNegativeNormalNEGProQuail Creek Surgical HospitalComment on above:Performed By: #### UA #### [facility] ([id number]) [address] [facility], [address] [place], [place] [address]Zjxyf (U)YELLOWNormalYELLOWProQuail Creek Surgical HospitalComment on above:Performed By: #### UA #### [facility] ([id number]) [address] [facility], [address] [place], [place] [address]Gdvocgp Ql (U)NegativeNormalNEGProQuail Creek Surgical HospitalComhavenwyck hospital on above:Performed By: #### UA #### [facility] ([id number]) [address] [facility], [address] [place], [place] [address]Ohijovq Ql (U)NegativeNormalNEGProQuail Creek Surgical HospitalComhavenwyck hospital on above:Performed By: #### UA #### [facility] ([id number]) [address] [facility] [place], [place] [address]Oycdvxfxv esterase Test strip Ql (U)SmallAbnormalNEGProQuail Creek Surgical HospitalComhavenwyck hospital on above:Performed By: #### UA #### [facility] ([id number]) [address] [facility], [address] [place], [place] [address]QASYXWTMTHCIOCftjjtefMGDPZcwKgzbyl [facility] CenterComhavenwyck hospital on above:Performed By: #### UA #### [facility] ([id number]) [address] [facility], [address] [place], [place] [address]Iknaboj Ql (U)NegativeNormalNEGProQuail Creek Surgical HospitalComment on above:Performed By: #### UA #### [facility] ([id number]) [address], [address] [place], [place] [address]yN (U)6.5 [pH]Normal5.0-8.5PUniversity Hospitals Samaritan Medical CenterComment on above:Performed By: #### UA #### [facility] ([id number]) [address], [address] [place], [place] [address]Nmtajkm Ql (U)NegativeNormalNEGProQuail Creek Surgical HospitalComment on above:Performed By: #### UA #### [facility] ([id number]) [address] [facility] [facility] [place], [place] [address]R.B.CELLS1 /hpfNormal0-5PUniversity Hospitals Samaritan Medical CenterComment on above:Performed By: #### UA #### [facility] ([id number]) [address] [facility] [place], [place] [address]Ehryfqky gravity (U) [Rel density]1.927Axxzqk2.003-1.035 [facility] Medical CenterComment on above:Performed By: #### UA #### [facility] ([id number]) [address] [facility] [facility] [place], [place] [address]IIZEGAME EPITHELIUM4 /hpfNormal0-5PUniversity Hospitals Samaritan Medical Center Comment on above:Performed By: #### UA #### [facility] ([id number]) [address], [address] [place], [place] [address]DMPBTZBTQYHTNMQzeyqsMUAWOJlaUkfoqe Fremont HospitalComment on above:Performed By: #### UA #### [facility] ([id number]) [address], [address] [place], [place] [address]Upgjqrzhanpf (U) [Mass/Vol]mg/dLNormal<1.1PUniversity Hospitals Samaritan Medical CenterComment on above:Performed By: #### UA #### [facility] ([id number]) [address], [address] [place], [place] [address]D.B.CELLS6 /hpfHigh0-5PUniversity Hospitals Samaritan Medical CenterComment on above:Performed By: #### UA #### [facility] ([id number]) [address] [place], [place] [address]BQRFA CULTUREon 70-77-9199Nrybpfej identified Cx Nom (U)CULTURE RESULTS <10,000 ORGANISMS/ML NORMAL URO GENITAL FLORANormalProMedica [facility] Comment on above:Performed By: #### 630-4 #### [facility] ([id number]) [address] [facility] [place], [place] [address]Flqxshpjl Auto (Bld) [#/Vol]on 35-37-4819Qkaqhsbyd (Bld) [#/Vol] Automated basophil count0.0-0.1FHighland District HospitalBasophils/100 WBC Auto (Bld)on 54-65-7719Xhbzjovdx/100 WBC (Bld)Automated basophil %0.2-2.0 [facility] ColumbusEosinophils/100 WBC Auto (Bld)on 05-30-2024 Eosinophils/100 WBC (Bld)Automated eosinophil %0.9-7.0[facility] ColumbusErythrocyte distribution width Auto (RBC) [Ratio]on 47-73-1666Buhhahpjjgh distribution width (RBC) [Ratio]Erythrocyte distribution width [Ratio] by Automated count11.0-15.0[facility] ColumbusEstimated glomerular filtration rate (GFR) non- Americanon 73-10-5140NRL/1.73 sq M.predicted among non-blacks MDRD (S/P/Bld) [Vol rate/Area]Estimated glomerular filtration rate (GFR) non->=60 mL/min/1.73m 2FHighland District HospitalGlobulin Calc (S) [Mass/Vol]on 64-52-1577Hbyruvjd (S) [Mass/Vol]Serum globulin measurement by calculation (mass/volume)[facility] ColumbusHematocrit Auto (Bld) [Volume fraction]on 93-60-8593Jeqkuyuidw (Bld) [Volume fraction]Hematocrit [Volume Fraction] of Blood by Automated count 36.0-48.0[facility] ColumbusHemoglobin [Mass/volume] in Bloodon 70-49-1809Eyrsjpvwjh (Bld) [Mass/Vol]Hemoglobin [Mass/volume] in Blood12.0-16.0 [facility] ColumbusLaboratory - Chemistry and Chemistry - challengeon 80-92-7071Epydmir [Mass/Vol]3.0 g/dLLow3.4-5.0[facility] ColumbusALP [Catalytic activity/Vol]130 U/TMump38-621BpinmenprChildren'S Hospital Of ColumbusALT [Catalytic activity/Vol]62 U/FAziu53-31KtaiamzvmChildren'S Hospital Of ColumbusAST [Catalytic activity/Vol]33 U/A64-05VhotdgkfsChildren'S Hospital Of ColumbusBilirubin [Mass/Vol]0.4 mg/dL0.2-1.0[facility] Calcium [Mass/Vol]9.8 mg/dL8.5-10.1FHighland District HospitalChloride [Moles/Vol]102 mmol/T91-815DksifiskwChildren'S Hospital Of ColumbusCO2 [Moles/Vol]27.9 mmol/L21.0-32.0[facility] ColumbusCreatinine [Mass/Vol]0.88 mg/dL 0.55-1.02[facility] ColumbusGFR/1.73 sq M.predicted MDRD (S/P/Bld) [Vol rate/Area]mL/min/{1.73_m2}>=60 mL/min/1.73m 2FHighland District HospitalGlucose [Mass/Vol]99 mg/kR50-129RdkosbhtwChildren'S Hospital Of ColumbusPotassium [Moles/Vol]4.2 mmol/L3.5-5.1FHighland District HospitalProtein [Mass/Vol] 7.7 g/dL6.4-8.2FMercy Health Clermont Hospitalodium [Moles/Vol]140 mmol/L 136-145Children[facility] ColumbusUrea nitrogen [Mass/Vol]14.0 mg/dL 7.0-18.0[facility] ColumbusUrea nitrogen/Creatinine [Mass ratio] 15.9 mg/mgChildren'S Hospital Of ColumbusLaboratory - Hematology and Cell countson 24-96-3873Hkdrhyqr granulocytes/100 WBC (Bld)0.5 %0.0-0.5FHighland District HospitalLeukocytes [#/volume] corrected for nucleated erythrocytes in Blood by Automated counon 12-59-6802SQI corrected for nucl RBC Auto (Bld) [#/Vol]Leukocytes [#/volume] corrected for nucleated erythrocytes in Blood by Automated coun4.0-11.0[facility] Of ColumbusLymphocytes Auto (Bld) [#/Vol]on 82-60-8609Vnmnspsehiz (Bld) [#/Vol]Lymphocytes [#/volume] in Blood by Automated count1.2-3.8[facility] ColumbusLymphocytes/100 WBC Auto (Bld)on 38-89-4666Dmqulqhsarr/100 WBC (Bld)Lymphocytes/100 leukocytes in Blood by Automated count20.5-60.0[facility] HospitalH Auto (RBC) [Entitic mass]on 76-11-3979ZRB (RBC) [Entitic mass]MCH [Entitic mass] by Automated count26.7-34.0[facility] Of ColumbusMCHC Auto (RBC) [Mass/Vol]on 49-82-7933KZXM (RBC) [Mass/Vol]MCHC [Mass/volume] by Automated count29.9-35.2FHighland District HospitalMCV Auto (RBC) [Entitic vol]on 18-15-1438ART (RBC) [Entitic vol]MCV [Entitic volume] by Automated count 81.0-99.0[facility] ColumbusMonocytes Auto (Bld) [#/Vol]on 52-92-4339Ggezaizgv (Bld) [#/Vol]Automated blood monocyte count0.3-0.8[facility] ColumbusMonocytes/100 WBC Auto (Bld)on 09-85-1591Bcuraaqin/100 WBC (Bld)Automated monocyte %1.7-12.0[facility] Neutrophils Auto (Bld) [#/Vol]on 61-02-2854Esetemvdqdj (Bld) [#/Vol]Neutrophils [#/volume] in Blood by Automated count1.4-6.5FHighland District Hospital Neutrophils/100 WBC Auto (Bld)on 99-82-9367Fljhhoxjkwz/100 WBC (Bld)Automated neutrophil %43.0-75.0[facility] Of ColumbusNo Panel Informationon 37-20-1626Qwyxtkikoct # (Auto)0.1 10 3/uL0.0-0.7FHighland District HospitalImmature Granulocyte # (Auto)0.05 10 3/uLHigh0.00-0.03[facility] Of ColumbusPlatelet mean volume Auto (Bld) [Entitic vol]on 41-43-9021Qxjnocqq mean volume (Bld) [Entitic vol]Platelet mean volume [Entitic volume] in Blood by Automated count9.5-13.5FHighland District HospitalPlatelets Auto (Bld) [#/Vol]on 64-38-7774Magzavdoo (Bld) [#/Vol]Platelets [#/volume] in Blood by Automated wyfem000-106LlvdltakjChildren'S Hospital Of ColumbusRBC Auto (Bld) [#/Vol]on 70-75-7445YHJ (Bld) [#/Vol]Erythrocytes [#/volume] in Blood by Automated count Low4.20-5.40P[facility] Community Hospitalerum or plasma albumin/globulin mass ratioon 21-35-4750Rrxdgia/Globulin [Mass ratio]Serum or plasma albumin/globulin mass ratioPike Community Hospitalerum or plasma anion gap determinationon 90-74-1890Onckm gap [Moles/Vol]Serum or plasma anion gap determinationChildren'S Hospital Of ColumbusBASIC METABOLIC PANLon 00-98-3863Chcnq gap [Moles/Vol]8 mmol/LNormal5-15[facility] Comment on above:Performed By: #### PINR, 57137-4, CMP, 89196-3, 2777-1, CBCA, 43085-1 #### [facility] ([id number]) [address] [facility], [address] [place], [place] [address]Vrionux [Mass/Vol]8.2 mg/dLLow8.5-10.5PGreen Cross Hospital Comment on above:Performed By: #### PINR, 98686-6, CMP, 64065-1, 7-1, CBCA, 32941-6 #### [facility] ([id number]) [address], [address] [place], [place] [address]Jctdipwi [Moles/Vol]104 mmol/JIyyznq04-140BybDpxejh [place] HospitalComment on above:Performed By: #### PINR, 57024-4, CMP, 22061-6, 7-1, CBCA, 30759-3 #### [facility] ([id number]) [address], [address] [place], [place] [address]XT2 [Moles/Vol]26 mmol/KSpadle61-28AylChbuyrGreen Cross Hospital Comment on above:Performed By: #### BERNARD, 05974-7, CMP, 53407-9, 7-1, CBCA, 02740-3 #### [facility] ([id number]) [address], [address] [place], [place] [address]Zuzqfibtzd [Mass/Vol]0.71 mg/dLNormal0.40-1.00ProWadsworth-Rittman HospitalComment on above:Result Comment: METHOD TRACEABLE TO IDMS STANDARD Performed By: #### BERNARD, 09908-2, CMP, 50194-8, 7-1, CBCA, 84137-5 #### [facility] ([id number]) [address], [address] [place], [place] [address]iQJD (CKD-EPI) NON-RACE DEPENDENT>90Normal>59ProWadsworth-Rittman HospitalComment on above:Result Comment: Reported eGFR is based on the CKD-EPI 2020 equation that does not use a race coefficient.Performed By: #### PINR, 23793-9, CMP, 58117-4, 7- 1, CBCA, 42105-5 #### [facility] ([id number]) [address], [address] [place], [place] [address]Lxlkykb [Mass/Vol]101 mg/hHLppn38-02BmvMvclxeMarietta Memorial Hospital Comment on above:Performed By: #### PINR, 81242-6, CMP, 43410-8, 2777-1, CBCA, 07554-4 #### [facility] ([id number]) [address] [place] [address]Rolasomdn [Moles/Vol]4.4 mmol/LNormal3.5-5.0ProWadsworth-Rittman HospitalComment on above:Result Comment: SPECIMEN HEMOLYZED, RESULTS INCREASED MODERATELY HEMOLYZEDPerformed By: #### PINR, 37543-0, CMP, 86858-9, 2777-1, CBCA, 25584-4 #### [facility] ([id number]) [address], [address] [place] [address]Kowzmk [Moles/Vol]138 mmol/SPxthhr746-408LskAgfgmi [place] HospitalComment on above:Performed By: #### PINR, 86682-3, CMP, 31874-8, 2777-1, CBCA, 39760-7 #### [facility] ([id number]) [address], [facility] [address] [place], [place] [address]Tngq nitrogen [Mass/Vol]19 mg/dLNormal5-27ProWadsworth-Rittman HospitalComment on above:Performed By: #### PINR, 37272-7, CMP, 43613-3, 2777-1, CBCA, 14673-8 #### [facility] ([id number]) [address], [address] [place], [place] [address]Aetev Metabolic Panelon 50-36-9948Gtdbt gap [Moles/Vol]8 mmol/L5 - 15 mmol/LProMedica Health SystemCalcium [Mass/Vol]8.2 mg/dLLow8.5 - 10.5 mg/dLProMedica Health SystemChloride [Moles/Vol]104 mmol/L98 - 109 mmol/L [facility] Health SystemCO2 [Moles/Vol]26 mmol/L22 - 32 mmol/LProMedica Health SystemCreatinine [Mass/Vol]0.71 mg/dL0.40 - 1.00 mg/dLTriHealth McCullough-Hyde Memorial Hospital Comment on above:METHOD TRACEABLE TO IDSD STANDARDeGFR (CKD-EPI)non-race dependent- [facility] CenterComment on above: Reported eGFR is based on the CKD-EPI 2020 equation that does not use a race coefficient. Glucose [Mass/Vol]101 mg/bGCfma95 - 99 mg/dLTriHealth McCullough-Hyde Memorial Hospital Interpretation and review of laboratory resultsAbnormalTriHealth McCullough-Hy[facility] Hospital Potassium [Moles/Vol]4.4 mmol/L3.5 - 5.0 mmol/[facility]'s Medical CenterComment on above:SPECIMEN HEMOLYZED, RESULTS INCREASED MODERATELY HEMOLYZED Sodium [Moles/Vol]138 mmol/L134 - 146 mmol/[facility]'s Medical CenterUrea nitrogen [Mass/Vol]19 mg/dL5 - 27 mg/dLTriHealth McCullough-Hyde Memorial HospitalCBC AND AUTO DIFFon 53-30-5163Pqzjlgotdfq (Bld) [#/Vol]0.5 10*3/uLHigh0.0-0.4[facility] HospitalComment on above:Performed By: #### BERNARD, 11929-8, CMP, 96948-9, 2777-1, CBCA, 09800-3 #### [facility] ([id number]) [address], [address] [place], [place] [address]Zzkmeyrfhcs/100 WBC (Bld)4.8 %NormalMarietta Memorial Hospital Comment on above:Performed By: #### PINR, 23651-7, CMP, 72595-0, 2777-1, CBCA, 92467-8 #### [facility] ([id number]) [address], [address] [place], [place] [address]Uwbjyfiupuz distribution width (RBC) [Ratio]15.0 %Normal 11.5-15.0[facility] HospitalComment on above:Performed By: #### PINR, 81487-6, CMP, 20886-1, 2777-1, CBCA, 15314-4 #### [facility] ([id number]) [address], [address] [place], [place] [address]Kgjfxhmeqo (Bld) [Volume fraction]35.1 %Smxrlh94-94KnhIstzvv [place] HospitalComment on above:Performed By: #### PINR, 17182-1, CMP, 35994-9, 2777-1, CBCA, 57110-8 #### [facility] ([id number]) [address], [address] [place], [place] [address]Xlrlteoysx (Bld) [Mass/Vol]12.2 g/nRDjmqxv72.7-15.5ProMedSelect Medical Specialty Hospital - Cincinnati North HospitalComment on above:Performed By: #### PINR, 11321-2, CMP, 87011-6, 2777-1, CBCA, 81731-1 #### [facility] ([id number]) [address], [address] [place], [place] [address]Fweevqkwodz (Bld) [#/Vol]3.9 10*3/uLHigh1.0-3.5ProMedSelect Medical Specialty Hospital - [facility] HospitalComment on above:Performed By: #### PINR, 08996-1, CMP, 54372-1, 2777-1, CBCA, 25786-5 #### [facility] ([id number]) [address], [address] [place], [place] [address]Rzondueddzt/100 WBC (Bld)39.4 %NormalProOhiohealth [facility] Comment on above:Performed By: #### PINR, 23262-5, CMP, 95498-6, 2777-1, CBCA, 99668-2 #### [facility] ([id number]) [address], [address] [place], [place] [address]QJD (RBC) [Entitic mass]30.3 oyHqdekc05-15WaxVrbevo Toledo HospitalComment on above:Performed By: #### PINR, 16445-9, CMP, 37380-8, 2777-1, CBCA, 58201-7 #### [facility] ([id number]) [address], [address] [place], [place] [address]WQGS (RBC) [Mass/Vol]34.6 g/sQIjvhor86-29LtvRjxflk Ashraf HospitalComment on above:Performed By: #### PINR, 79921-0, CMP, 07413-6, 2777-1, CBCA, 74929-2 #### [facility] ([id number]) [address], [address] [place], [place] [address]JWE (RBC) [Entitic vol]88 jPWjeftt18-664IozNmmagy Ashraf HospitalComment on above:Performed By: #### PINR, 28228-8, CMP, 96524-0, 2777-1, CBCA, 73938-5 #### [facility] ([id number]) [address], [address] [place], [place] [address]Tqvksclma (Bld) [#/Vol]0.4 10*3/uLNormal0-0.9Pro[facility]raf HospitalComment on above:Performed By: #### PINR, 40477-9, CMP, 59313-1, 2777-1, CBCA, 34614-3 #### [facility] ([id number]) [address], [address] [place], [place] [address]Pxwewurvc/100 WBC (Bld)3.8 %NormalProMedica [facility] Comment on above:Performed By: #### PINR, 77985-4, CMP, 82524-9, 2777-1, CBCA, 31472-7 #### [facility] ([id number]) [address], [address] [place], [place] [address]UABKAOUUZ6.0 %NormalProMedica Ashraf HospitalComment on above: Performed By: #### PINR, 50730-5, CMP, 83302-2, 2777-1, CBCA, 81100-8 #### [facility] ([id number]) [address], [address] [place], [place] [address]Cwzftmnoqgn (Bld) [#/Vol]5.0 10*3/uLNormal1.5-6.6Pro[facility] [place] HospitalComment on above:Performed By: #### PINR, 20587-2, CMP, 36578-1, 2777-1, CBCA, 50396-6 #### [facility] ([id number]) [address], [address] [place], [place] [address]Xpwabtac mean volume (Bld) [Entitic vol]8.4 fLNormal7-12 [facility] HospitalComment on above:Performed By: #### PINR, 45349-9, CMP, 83052-1, 2777-1, CBCA, 55749-6 #### [facility] ([id number]) [address], [address] [place], [place] [address]Bmcahjrua (Bld) [#/Vol]137 10*3/wURmh949-781ZelHjyrqd [place] HospitalComment on above:Performed By: #### PINR, 68791-1, CMP, 26670-2, 2777-1, CBCA, 23832-2 #### [facility] ([id number]) [address], [address] [place], [place] [address]IQQ COUNT4.01 X10E12/LNormal3.80-5.20[facility] Comment on above:Performed By: #### PINR, 92392-4, CMP, 50703-1, 2777-1, CBCA, 37216-9 #### [facility] ([id number]) [address], [address] [place], [place] [address]WXJ morphology finding Nom (Bld)NORMALNormalProMedica Cuba HospitalComment on above:Performed By: #### PINR, 97646-7, CMP, 98019-1, 2777-1, CBCA, 90338-0 #### [facility] ([id number]) [address], [address] [place], [place] [address]LXP ZVKWBBMYPL54.0 %NormalProWadsworth-Rittman HospitalComment on above:Performed By: #### PINR, 62330-5, CMP, 38689-1, 2777-1, CBCA, 78688-2 #### [facility] ([id number]) [address], [address] [place], [place] [address]NPY (Bld) [#/Vol]9.8 10*3/uLNormal4.0-11.0M[facility] HospitalComment on above:Performed By: #### PINR, 87967-8, CMP, 25433-1, 2777-1, CBCA, 06963-0 #### [facility] ([id number]) [address], [address] [place], [place] [address]RET auto differentialon 35-03-6451Vymslkfsfdy (Bld) [#/Vol]0.5 10*3/uLFort Belvoir Community HospitalEosinophils/100 WBC (Bld)4.8 %[facility] HospitalErythrocyte distribution width (RBC) [Ratio]15 %11.5 - 15.0 %[facility] HospitalHematocrit (Bld) [Volume fraction]35.1 %35 - 47 %[facility] HospitalHemoglobin (Bld) [Mass/Vol]12.2 g/dL11.7 - 15.5 g/dLTriHealth McCullough-Hyde Memorial HospitalInterpretation and review of laboratory resultsAbnormalTriHealth McCullough-Hyde Memorial HospitalLymphocytes (Bld) [#/Vol]3.9 10*3/uLFort [facility] Lymphocytes/100 WBC (Bld)39.4 %[facility] HospitalH (RBC) [Entitic mass] 30.3 pg27 - 34 [facility] CenterMCHC (RBC) [Mass/Vol]34.6 g/dL32 - 36 g/dLTriHealth McCullough-Hyde Memorial HospitalMCV (RBC) [Entitic vol]88 fL80 - 100 [facility] HospitalMonocytes (Bld) [#/Vol]0.4 10*3/uLTriHealth McCullough-Hyde Memorial Hospital Monocytes/100 WBC (Bld)3.8 %[facility] HospitalMyelocytes/100 WBC (Bld)1 % [facility] HospitalNeutrophils (Bld) [#/Vol]5 10*3/uLTriHealth McCullough-Hyde Memorial Hospital Platelet mean volume (Bld) [Entitic vol]8.4 fL7 - 12 [facility] Platelets (Bld) [#/Vol]137 10*3/uLLowTriHealth McCullough-Hyde Memorial HospitalPolymorphonuclear cells/100 WBC (Bld)NORMALProWilson HealthRBC (Bld) [#/Vol]4.01 10*6/uL [facility] Mercyegmented neutrophils/100 WBC (Bld)51 %[facility] HospitalWBC corrected for nucl RBC Auto (Bld) [#/Vol]9.8[facility]–Cedar CrestMAGNESIUMon 91-59-7984Wdiesqekx [Mass/Vol]1.8 mg/dLNormal 1.8-2.6[facility] HospitalComment on above:Performed By: #### BERNARD, 30128- 9, CMP, 92545-9, 2777-1, CBCA, 91443-3 #### [facility] ([id number]) [address], [address] [place], [place] [address]Fkjkgdxladm 64-49-6000Xwaimsqzj [Mass/Vol]1.8 mg/dL1.8 - 2.6 mg/dLTriHealth McCullough-Hyde Memorial HospitalNo Panel Informationon 45-89-8289VogZhvllqOhio State East HospitalBASIC METABOLIC PANLon 76-26-0701Amrrl gap [Moles/Vol]10 mmol/LNormal5-15 [facility] HospitalComment on above:Performed By: #### PINR, 45145-4, CMP, 68431-8, 2777-1, CBCA, 86096-7 #### [facility] ([id number]) [address] [place], [place] [address]Shlpeog [Mass/Vol]8.9 mg/dLNormal8.5-10.5PGreen Cross HospitalComment on above:Performed By: #### BERNARD, 61234-6, CMP, 50070-5, 2777-1, CBCA, 12312-5 #### [facility] ([id number]) [address], [address] [place] [address]Wtvyhoac [Moles/Vol]105 mmol/WZewvdc65-362AvzKsnvub [place] HospitalComment on above:Performed By: #### BERNARD, 16975-3, CMP, 02454-3, 2777-1, CBCA, 60916-7 #### [facility] ([id number]) [address], [address] [place], [place] [address]WF0 [Moles/Vol]26 mmol/HWogsvw10-41YanXjwvqz [facility] Comment on above:Performed By: #### BERNARD, 68243-6, CMP, 54782-5, 7-1, CBCA, 52722-2 #### [facility] ([id number]) [address], [address] [place], [place] [address]Dkrcquxdqr [Mass/Vol]0.79 mg/dLNormal0.40-1.00ProWadsworth-Rittman HospitalComment on above:Result Comment: METHOD TRACEABLE TO IDMS STANDARD Performed By: #### BERNARD, 56012-7, CMP, 04808-0, 7-1, CBCA, 32414-0 #### [facility] ([id number]) [address], [address] [place], [place] [address]HYC/1.73 sq M.predicted among non-blacks MDRD (S/P/Bld) [Vol rate/Area]82 mL/min/{1.73_m2}Normal>59ProWadsworth-Rittman HospitalComment on above: Result Comment: Reported eGFR is based on the CKD-EPI 2020 equation that does not use a race coefficient.Performed By: #### PINR, 09411-4, CMP, 11357-1, 2777- 1, CBCA, 82482-2 #### [facility] ([id number]) [address], [address] [place], [place] [address]Nuspzcf [Mass/Vol]89 mg/fPCgoluo67-27BrwNuxeyi [facility] Comment on above:Performed By: #### PINR, 63185-9, CMP, 94856-0, 2777-1, CBCA, 54980-5 #### [facility] ([id number]) [address], [address] [place], [place] [address]Vkjwaqiwp [Moles/Vol]3.7 mmol/LNormal3.5-5.0ProUniversity Hospitals Port[facility] Medical Centerca [place] HospitalComment on above:Performed By: #### PINR, 63659-2, CMP, 38134-2, 7-1, CBCA, 33950-7 #### [facility] ([id number]) [address], [address] [place], [place] [address]Etnfed [Moles/Vol]141 mmol/FNzqtqs360-547VjpPsmhqv [place] HospitalComment on above:Performed By: #### PINR, 95774-0, CMP, 86754-1, 7-1, CBCA, 30112-5 #### [facility] ([id number]) [address], [address] [place], [place] [address]Ztep nitrogen [Mass/Vol]26 mg/dLNormal5-27ProOhiohealth Southeastern Medical Center HospitalComment on above:Performed By: #### PINR, 69899-9, CMP, 12099-7, 2777-1, CBCA, 38363-4 #### [facility] ([id number]) [address], [address] [place], [place] [address]Vnvtj Metabolic Panelon 59-66-0523Ydego gap [Moles/Vol]10 mmol/L 5 - 15 mmol/LProMedgadsden regional medical center Health SystemCalcium [Mass/Vol]8.9 mg/dL8.5 - 10.5 mg/dL ProMRice Memorial Hospital SystemChloride [Moles/Vol]105 mmol/L98 - 109 mmol/[facility] SystemCO2 [Moles/Vol]26 mmol/L22 - 32 mmol/[facility] Creatinine [Mass/Vol]0.79 mg/dL0.40 - 1.00 mg/dLTriHealth McCullough-Hyde Memorial HospitalComment on above:METHOD TRACEABLE TO IDMS STANDARDeGFR (CKD-EPI)non-race xqlugvizp89- [facility] Medical CenterComment on above: Reported eGFR is based on the CKD-EPI 2020 equation that does not use a race coefficient. Glucose [Mass/Vol]89 mg/dL65 - 99 mg/dLTriHealth McCullough-Hyde Memorial HospitalPotassium [Moles/Vol]3.7 mmol/L3.5 - 5.0 mmol/[facility] SystemSodium [Moles/Vol] 141 mmol/L134 - 146 mmol/[facility] SystemUrea nitrogen [Mass/Vol]26 mg/dL5 - 27 mg/dLTriHealth McCullough-Hyde Memorial HospitalCBC AND AUTO DIFFon 77-84-6984SFRHNJGT BASOPHIL0.0 X10E9/LNormal0.0-0.2PGreen Cross HospitalComment on above: Performed By: #### BERNARD, 80586-3, ELROY, , 2776-, CBCA, 49466-8 #### [facility] ([id number]) [address], [address] [place], [place] [address]BNPZQWQT ICGYGUJDLW86.4 X10E9/LHigh1.5-6.6ProWadsworth-Rittman HospitalComment on above:Performed By: #### BERNARD, 20788-3, CMP, 24524-3, 2776-1, CBCA, 96689-1 #### [facility] ([id number]) [address] [place], [place] [address]Yobycxoiu/100 WBC (Bld)0.3 %NormalMarietta Memorial Hospital Comment on above:Performed By: #### BERNARD, 35816-8, CMP, , 2777-1, CBCA, 82890-6 #### [facility] ([id number]) [address], [address] [place], [place] [address]Uehfqztcccz (Bld) [#/Vol]0.2 10*3/uLNormal0.0-0.4ProMedica [place] HospitalComment on above:Performed By: #### BERNARD, 80572-7, CMP, 88960-5, 2776-, CBCA, 98121-6 #### [facility] ([id number]) [address], [address] [place], [place] [address]Npjtgcgoavv/100 WBC (Bld)1.6 %NormalProOhiohealth Southeastern Medical Center Hospital Comment on above:Performed By: #### BERNARD, 41920-9, CMP, 14733-8, 2776-, CBCA, 72206-3 #### [facility] ([id number]) [address], [address] [address]Gjbwxbhwydr distribution width (RBC) [Ratio]15.4 %High11.5-15.0 [facility] [place] HospitalComment on above:Performed By: #### BERNARD, 59745-6, CMP, 45662-2, 2776-, CBCA, 95944-3 #### [facility] ([id number]) [address], [address] [place], [place] [address]Nxogoeatnw (Bld) [Volume fraction]39.5 %Tiwrmv22-27WtwVfojby [place] HospitalComment on above:Performed By: #### PINR, 17498-4, CMP, 21812-9, 7-1, CBCA, 87447-0 #### [facility] ([id number]) [address], [address] [place], [place] [address]Hzyepinnnb (Bld) [Mass/Vol]13.6 g/bQMiqryn61.7-15.5ProMedica [place] HospitalComment on above:Performed By: #### PINR, 88215-6, CMP, 20848-5, 2777-1, CBCA, 52023-4 #### [facility] ([id number]) [address], [address] [place], [place] [address]Dcdmdiutfsy (Bld) [#/Vol]3.2 10*3/uLNormal1.0-3.5ProMedica [place] HospitalComment on above:Performed By: #### PINR, 01224-5, CMP, 97761-0, 2777-1, CBCA, 94063-6 #### [facility] ([id number]) [address], [address] [place], [place] [address]Bprfhehihdv/100 WBC (Bld)21.7 %NormalProOhiohealth Southeastern Medical Center Hospital Comment on above:Performed By: #### PINR, 27262-2, CMP, 02677-6, 2777-1, CBCA, 20273-4 #### [facility] ([id number]) [address], [address] [place], [place] [address]AEE (RBC) [Entitic mass]30.2 obVfsjxu12-30JzmKhhqyg [place] HospitalComment on above:Performed By: #### PINR, 26348-1, CMP, 68145-7, 2777-1, CBCA, 35112-8 #### [facility] ([id number]) [address], [address] [place], [place] [address]TZHU (RBC) [Mass/Vol]34.3 g/iOGksczd72-65PneUviwca [place] HospitalComment on above:Performed By: #### PINR, 48533-7, CMP, 01741-4, 2777-1, CBCA, 91572-1 #### [facility] ([id number]) [address], [address] [place], [place] [address]EKM (RBC) [Entitic vol]88 dNFmdmbn19-913PqhZsauqr [place] HospitalComment on above:Performed By: #### PINR, 46997-6, CMP, 45465-7, 2777-1, CBCA, 36718-0 #### [facility] ([id number]) [address], [address] [place], [place] [address]Bwhsufxeb (Bld) [#/Vol]0.7 10*3/uLNormal0-0.9ProUniversity Hospitals Portage Medical Centerca [place] HospitalComment on above:Performed By: #### PINR, 97525-2, CMP, 90691-2, 2777-1, CBCA, 81921-9 #### [facility] ([id number]) [address], [address] [place], [place] [address]Bilvcrxhi/100 WBC (Bld)5.1 %NormalMarietta Memorial Hospital Comment on above:Performed By: #### PINR, 48739-6, CMP, 20928-1, 2777-1, CBCA, 76101-2 #### [facility] ([id number]) [address], [address] [place], [place] [address]Baacsllwhpa/100 WBC (Bld)71.3 %NormalMarietta Memorial Hospital Comment on above:Performed By: #### PINR, 02080-6, CMP, 75576-7, 2777-1, CBCA, 81496-4 #### [facility] ([id number]) [address], [address] [place], [place] [address]Phdfiafu mean volume (Bld) [Entitic vol]8.3 fLNormal7-12 [facility]ult[facility] HospitalComment on above:Performed By: #### PINR, 09171-7, CMP, 13185-9, 2777-1, CBCA, 10234-2 #### [facility] ([id number]) [address], [address] [place], [place] [address]Mshcqdlxe (Bld) [#/Vol]130 10*3/uIOsg792-358IhmOhixapWadsworth-Rittman HospitalComment on above:Performed By: #### PINR, 83431-8, CMP, 65915-3, 2777-1, CBCA, 43792-2 #### [facility] ([id number]) [address], [address] [place], [place] [address]CBZ COUNT4.49 X10E12/LNormal3.80-5.20[facility] Comment on above:Performed By: #### PINR, 39190-0, CMP, 01852-5, 2777-1, CBCA, 77348-2 #### [facility] ([id number]) [address], [address] [place], [place] [address]AIQ (Bld) [#/Vol]14.6 10*3/uLHigh4.0-11.0M[facility] HospitalComment on above:Performed By: #### PINR, 47771-7, CMP, 55520-7, 2777-1, CBCA, 59177-7 #### [facility] ([id number]) [address], [address] [place], [place] [address]ZDB auto differentialon 24-14-2397Msememetp (Bld) [#/Vol]0 10*3/uLVermont State HospitalMedipa Health SystemBasophils/100 WBC (Bld)0.3 %[facility] SystemEosinophils (Bld) [#/Vol]0.2 10*3/uLProMediMain Campus Medical Center SystemEosinophils/100 WBC (Bld)1.6 %[facility]ica Health SystemErythrocyte distribution width (RBC) [Ratio]15.4 %High11.5 - 15.0 %[facility] SystemHematocrit (Bld) [Volume fraction]39.5 %35 - 47 %[facility] Health SystemHemoglobin (Bld) [Mass/Vol]13.6 g/dL11.7 - 15.5 g/dLTriHealth McCullough-Hyde Memorial HospitalInterpretation and review of laboratory resultsAbnormalTriHealth McCullough-Hyde Memorial HospitalLymphocytes (Bld) [#/Vol]3.2 10*3/[facility] Cancer CenterLymphocytes/100 WBC (Bld)21.7 %[facility] HospitalH (RBC) [Entitic mass]30.2 pg27 - 34 pgPOhio State East HospitalMCHC (RBC) [Mass/Vol]34.3 g/dL32 - 36 g/dLTriHealth McCullough-Hyde Memorial HospitalMCV (RBC) [Entitic vol]88 fL80 - 100 [facility] HospitalMonocytes (Bld) [#/Vol]0.7 10*3/uLTriHealth McCullough-Hyde Memorial HospitalMonocytes/100 WBC (Bld)5.1 %[facility] Memorial HospitalNeutrophils (Bld) [#/Vol]10.4 10*3/uLFort Belvoir Community HospitalNeutrophils/100 WBC (Bld) 71.3 %[facility] Memorial HospitalPlatelet mean volume (Bld) [Entitic vol]8.3 fL7 - 12 [facility] HospitalPlatelets (Bld) [#/Vol]130 10*3/uLRegency Hospital CompanyRBC (Bld) [#/Vol]4.49 10*6/[facility] Cancer CenterWBC corrected for nucl RBC Auto (Bld) [#/Vol]14.6HighEncompass Health Rehabilitation Hospital of ErieCalcium.ionized (Bld) [Mass/Vol]on 59-82-0717CpeEylngdOhio State East Hospital IONIZED CALCIUM4.8 mg/dLNormal4.5-5.3PGreen Cross HospitalComment on above: Performed By: #### PINR, 75268-3, CMP, 22356-8, 2777-1, CBCA, 37076-3 #### [facility] ([id number]) [address] [place] [address], [address] [place], [place] [address]Iptubbh calciumon 55-47-2347Opnaxes.ionized (Bld) [Mass/Vol]4.8 mg/dL4.5 - 5.3 mg/dLTriHealth McCullough-Hyde Memorial HospitalIonized magnesiumon 05-25-2024 Magnesium Ionized ISE (Bld) [Moles/Vol]0.56 mmol/L0.45 - 0.74 mmol/LProMedica Health SystemComment on above:NEW REFERENCE RANGEMAGNESIUMon 05-57-6993Gkerupfyu [Mass/Vol]1.8 mg/dLNormal1.8-2.6ProWadsworth-Rittman HospitalComment on above: Performed By: #### BERNARD, 73206-3, CMP, 46572-7, 2777-1, CBCA, 59090-0 #### [facility] ([id number]) [address] [place] [address], [address] [place], [place] [address]Ffbxjhbjnst 28-48-0729Njdeasruk [Mass/Vol]1.8 mg/dL1.8 - 2.6 mg/dLProWilson HealthMagnesium Ionized ISE (Bld) [Moles/Vol]on 05-25-2024 ProMedicPark Nicol[facility] Methodist Hospital SystemMagnesium [Moles/Vol]0.56 mmol/LNormal0.45-0.74ProWadsworth-Rittman HospitalComment on above:Result Comment: NEW REFERENCE RANGEPerformed By: #### BERNARD, 01062-4, CMP, 67251-1, 2777-1, CBCA, 78193-0 #### [facility] ([id number]) [address] [place] [address], [address] [place], [place] [address]Kn Panel Informationon 86-17-5616XjsZjkrbaOhio State East Hospital POTASSIUMon 12-07-3870Rvfpbeulr [Moles/Vol]3.9 mmol/LNormal3.5-5.0ProWadsworth-Rittman HospitalComment on above:Performed By: #### BERNARD, 18257-5, CMP, 47344-1, 2777-1, CBCA, 12345-3 #### [facility] ([id number]) [address] [place] [address], [address] [place], [place] [address]Gterwklxubx 84-61-6398Ziuxsdfnc [Moles/Vol]3.9 mmol/L3.5 - 5.0 mmol/LProMedKindred Hospital Lima SystemPotassium [Moles/Vol]on 64-43-3581YxdTkhirc Health SystemBacteria identified Aer cx Nom (Bld)on 01-64-4497Rzhaqkqqauiufc and review of laboratory resultsAbnormalProMedica Health SystemService comment (Unsp spec) [Interp]ESCHERICHIA COLIAbnormalProMedica Health SystemService comment (Unsp spec) [Interp]FOR SUSCEPTIBILITY, SEE PREVIOUS REPORT.[facility] ProMedica Health SystemInterpretation and review of laboratory resultsAbnormal ProMnoland hospital annistona Health SystemService comment (Unsp spec) [Interp]ESCHERICHIA COLI AbnormalProMedica Health SystemService comment (Unsp spec) [Interp]Detected Pro[facility] Health SystemProUniversity Hospitals Portage Medical Centerca Health SystemCBC AND AUTO DIFFon 86-94-4592Lxhq form neutrophils/100 WBC (Bld)3.0 %NormalMarietta Memorial HospitalComment on above:Performed By: #### PINR, 91033-2, CMP, 57228-6, 2777-1, CBCA, 88094-0 #### [facility] ([id number]) [address], [address] [place], [place] [address]Bvnqgoaryll (Bld) [#/Vol]0.2 10*3/uLNormal0.0-0.4M[facility] Memorial HospitalComment on above:Performed By: #### PINR, 98271-3, CMP, 36222-9, 2777-1, CBCA, 59694-6 #### [facility] ([id number]) [address], [address] [place], [place] [address]Pomghqvivit/100 WBC (Bld)1.0 %NormalSelect Medical Specialty [facility] Comment on above:Performed By: #### PINR, 42276-4, CMP, 20878-6, 2777-1, CBCA, 19784-6 #### [facility] ([id number]) [address], [address] [place], [place] [address]Eqbhcjhskny distribution width (RBC) [Ratio]15.3 %High11.5-15.0 [facility] HospitalComment on above:Performed By: #### PINR, 70981-2, CMP, 69603-4, 2777-1, CBCA, 91293-2 #### [facility] ([id number]) [address], [address] [place], [place] [address]Oqvtvaxtrh (Bld) [Volume fraction]34.2 %Qti43-73ZwyGtuhtg [place] HospitalComment on above:Performed By: #### PINR, 97716-1, CMP, 44936-8, 2777-1, CBCA, 00095-7 #### [facility] ([id number]) [address], [address] [place], [place] [address]Wpubjokzee (Bld) [Mass/Vol]11.5 g/dLLow11.7-15.5ProMedSelect Medical Specialty Hospital - Cincinnati North HospitalComment on above:Performed By: #### PINR, 95569-7, CMP, 29504-1, 2777- 1, CBCA, 57929-3 #### [facility] ([id number]) [address], [address] [place], [place] [address]Jupluztjrnn (Bld) [#/Vol]2.4 10*3/uLNormal1.0-3.5PWayne HealthCare Main Campus HospitalComment on above:Performed By: #### PINR, 14586-9, CMP, 04455-7, 2777-1, CBCA, 96847-7 #### [facility] ([id number]) [address], [address] [place], [place] [address]Lwxlbfnkikx/100 WBC (Bld)11.0 %NormalProOhiohealth Southeastern Medical Center Hospital Comment on above:Performed By: #### PINR, 05391-3, CMP, 15890-3, 2777-1, CBCA, 82801-1 #### [facility] ([id number]) [address], [address] [place], [place] [address]FGD (RBC) [Entitic mass]29.8 zmWesclw82-00YtyTfwond [place] HospitalComment on above:Performed By: #### PINR, 86619-2, CMP, 82935-1, 2777-1, CBCA, 03556-4 #### [facility] ([id number]) [address], [address] [place], [place] [address]UXYJ (RBC) [Mass/Vol]33.7 g/cCWdqcoy35-79ZzeJdfztz [place] HospitalComment on above:Performed By: #### PINR, 15344-0, CMP, 41469-0, 2777-1, CBCA, 49597-7 #### [facility] ([id number]) [address], [address] [place], [place] [address]RGG (RBC) [Entitic vol]89 rNOkbpzb73-018NgvYnheki [place] HospitalComment on above:Performed By: #### PINR, 43826-1, CMP, 98752-9, 2777-1, CBCA, 33563-2 #### [facility] ([id number]) [address], [address] [place], [place] [address]Xijbpwvui (Bld) [#/Vol]0.9 10*3/uLNormal0-0.9ProOhiohealth Southeastern Medical Center HospitalComment on above:Performed By: #### PINR, 87818-6, CMP, 69282-1, 2777-1, CBCA, 13733-7 #### [facility] ([id number]) [address], [address] [place], [place] [address]Qgaqskcha/100 WBC (Bld)4.0 %NormalProOhiohealth Southeastern Medical Center Hospital Comment on above:Performed By: #### PINR, 45359-2, CMP, 13267-8, 2777-1, CBCA, 88717-5 #### [facility] ([id number]) [address], [address] [place], [place] [address]Vjkoccddvjy (Bld) [#/Vol]18.5 10*3/uLHigh1.5-6.6ProUniversity Hospitals Portage Medical Centerca Ashraf HospitalComment on above:Performed By: #### PINR, 94946-8, CMP, 25862-8, 2777- 1, CBCA, 43461-9 #### [facility] ([id number]) [address], [address] [place] [address]Seihdzke mean volume (Bld) [Entitic vol]8.6 fLNormal7-12 [facility]raf HospitalComment on above:Performed By: #### PINR, 63603-2, CMP, 96948-4, 2777-1, CBCA, 09195-5 #### [facility] ([id number]) [address], [address] [place], [place] [address]Ecpkbqrgp (Bld) [#/Vol]103 10*3/kHFhs134-040SeeFvwqee Ashraf HospitalComment on above:Performed By: #### PINR, 30087-5, CMP, 67994-5, 2777-1, CBCA, 22377-3 #### [facility] ([id number]) [address], [address] [place], [place] [address]ZRF COUNT3.87 X10E12/LNormal3.80-5.20[facility] Comment on above:Performed By: #### PINR, 82061-3, CMP, 45167-3, 2777-1, CBCA, 37873-7 #### [facility] ([id number]) [address], [address] [place], [place] [address]HOP morphology finding Nom (Bld)NORMALNormalProMedica Ashraf HospitalComment on above:Performed By: #### PINR, 43903-0, CMP, 58878-0, 2777-1, CBCA, 88560-6 #### [facility] ([id number]) [address], [address] [place], [place] [address]TTF GLMJEAMPXE20.0 %NormalProMedica Ashraf HospitalComment on above:Performed By: #### PINR, 95762-0, CMP, 10751-6, 2777-1, CBCA, 86258-2 #### [facility] ([id number]) [address], [address] [place], [place] [address]KTP (Bld) [#/Vol]22.0 10*3/uLHigh4.0-11.0[facility] HospitalComment on above:Performed By: #### PINR, 50716-3, CMP, 13324-3, 2777-1, CBCA, 80225-2 #### [facility] ([id number]) [address] [place], [place] [address]UME auto differentialon [id number] form neutrophils/100 WBC (Bld)3 %[facility] HospitalEosinophils (Bld) [#/Vol]0.2 10*3/uLTriHealth McCullough-Hyde Memorial HospitalEosinophils/100 WBC (Bld)1 %[facility] HospitalErythrocyte distribution width (RBC) [Ratio]15.3 %High11.5 - 15.0 %[facility] Hematocrit (Bld) [Volume fraction]34.2 %Low35 - 47 %[facility] Hemoglobin (Bld) [Mass/Vol]11.5 g/dLLow11.7 - 15.5 g/dLTriHealth McCullough-Hyde Memorial Hospital Interpretation and review of laboratory resultsAbnormalTriHealth [facility]ull[facility] Hospital Lymphocytes (Bld) [#/Vol]2.4 10*3/uLTriHealth McCullough-Hyde Memorial HospitalLymphocytes/100 WBC (Bld)11 %[facility] HospitalMCH (RBC) [Entitic mass]29.8 pg27 - 34 pg [facility] HospitalMCHC (RBC) [Mass/Vol]33.7 g/dL32 - 36 g/dLTriHealth McCullough-Hyde Memorial HospitalMCV (RBC) [Entitic vol]89 fL80 - 100 [facility] Monocytes (Bld) [#/Vol]0.9 10*3/uLTriHealth McCullough-Hyde Memorial HospitalMonocytes/100 WBC (Bld) 4 %[facility] HospitalNeutrophils (Bld) [#/Vol]18.5 10*3/uLHighUniversity Hospitals Parma Medical Center SystemPlatelet mean volume (Bld) [Entitic vol]8.6 fL7 - 12 fLPHolmes County Joel Pomerene Memorial Hospital SystemPlatelets (Bld) [#/Vol]103 10*3/uLLowTriHealth McCullough-Hy[facility] Hospital Polymorphonuclear cells/100 WBC (Bld)NORMALProWilson HealthRBC (Bld) [#/Vol]3.87 10*6/uLAtrium Health Mercyegmented neutrophils/100 WBC (Bld)81 %[facility] HospitalWBC corrected for nucl RBC Auto (Bld) [#/Vol]22High [facility] Hospital of ErieCOMPREHENSIVE METABOLIC PANELon [id number] [Mass/Vol]2.8 g/dLLow3.2-5.3PGreen Cross HospitalComment on above:Performed By: #### BERNARD, 34552-6, CMP, 46579-7, 2777-1, CBCA, 19523-2 #### [facility] ([id number]) [address], [address] [place], [place] [address]IPW [Catalytic activity/Vol]200 U/WFxse78-597YgqRsjjcdMarietta Memorial HospitalComment on above:Performed By: #### KATLYNR, 06756-1, CMP, 30816-8, 2777-1, CBCA, 85384-7 #### [facility] ([id number]) [address], [address] [place], [place] [address]YYR [Catalytic activity/Vol]53 U/LHigh0-31PGreen Cross HospitalComment on above:Performed By: #### PINR, 58830-3, CMP, 54733-2, 2777-1, CBCA, 74957-8 #### [facility] ([id number]) [address], [address] [place], [place] [address]Ivasd gap [Moles/Vol]9 mmol/LNormal5-15[facility] Comment on above:Performed By: #### PINR, 75789-2, CMP, 86361-9, 2777-1, CBCA, 06031-5 #### [facility] ([id number]) [address], [address] [place], [place] [address]GEH [Catalytic activity/Vol]56 U/LHigh0-41ProMedica Ashraf HospitalComment on above:Performed By: #### PINR, 99915-3, CMP, 53508-3, 2777-1, CBCA, 68062-7 #### [facility] ([id number]) [address], [address] [place], [place] [address]Vvbtkvhqy [Mass/Vol]0.6 mg/dLNormal0.3-1.2ProMedgadsden regional medical center Ashraf HospitalComment on above:Performed By: #### BERNARD, 45903-7, CMP, 70994-3, 2777-1, CBCA, 05004-7 #### [facility] ([id number]) [address], [address] [place], [place] [address]Ukyyplg [Mass/Vol]8.6 mg/dLNormal8.5-10.5PWayne HealthCare Main Campus HospitalComment on above:Performed By: #### PINR, 66068-6, CMP, 36773-4, 2777-1, CBCA, 36075-2 #### [facility] ([id number]) [address], [address] [place], [place] [address]Zrrfmglb [Moles/Vol]107 mmol/HJrdlbx14-942GdyQpejlz Ashraf HospitalComment on above:Performed By: #### PINR, 45194-0, CMP, 37325-9, 2777-1, CBCA, 93741-2 #### [facility] ([id number]) [address], [address] [place], [place] [address]IU5 [Moles/Vol]25 mmol/QGjlhli43-23BzbXizdxt [facility] Comment on above:Performed By: #### PINR, 38726-3, CMP, 67007-3, 2777-1, CBCA, 38556-1 #### [facility] ([id number]) [address], [address] [place], [place] [address]Pdetdruzjg [Mass/Vol]0.95 mg/dLNormal0.40-1.00ProWadsworth-Rittman HospitalComment on above:Result Comment: METHOD TRACEABLE TO IDMS STANDARD Performed By: #### PINR, 89456-5, CMP, 60333-2, 2777-1, CBCA, 82420-5 #### [facility] ([id number]) [address], [address] [place], [place] [address]GWD/1.73 sq M.predicted among non-blacks MDRD (S/P/Bld) [Vol rate/Area]66 mL/min/{1.73_m2}Normal>59ProWadsworth-Rittman HospitalComment on above: Result Comment: Reported eGFR is based on the CKD-EPI 2020 equation that does not use a race coefficient.Performed By: #### BERNARD, 58513-4, CMP, 04020-2, 2777- 1, CBCA, 54788-4 #### [facility] ([id number]) [address], [address] [place], [place] [address]Aiyekvx [Mass/Vol]80 mg/yKItdkrs46-45EjwEjwujj [facility] Comment on above:Performed By: #### PINR, 00620-5, CMP, 34743-2, 2777-1, CBCA, 33360-4 #### [facility] ([id number]) [address], [address] [place], [place] [address]Htgtrcmod [Moles/Vol]3.7 mmol/LNormal3.5-5.0ProWadsworth-Rittman HospitalComment on above:Performed By: #### PINR, 24985-8, CMP, 43308-8, 2777-1, CBCA, 17942-3 #### [facility] ([id number]) [address], [address] [place], [place] [address]Bkmjnhh [Mass/Vol]5.8 g/dLLow6.0-8.0[facility] Comment on above:Performed By: #### PINR, 20946-8, CMP, 63142-0, 2777-1, CBCA, 10835-2 #### [facility] ([id number]) [address], [address] [place], [place] [address]Euzdgq [Moles/Vol]141 mmol/SYrbzxi726-457SmwDtuody [place] HospitalComment on above:Performed By: #### PINR, 68758-4, CMP, 39051-4, 2777-1, CBCA, 71824-1 #### [facility] ([id number]) [address], [address] [place], [place] [address]Ppzo nitrogen [Mass/Vol]33 mg/dLHigh5-27ProWadsworth-Rittman HospitalComment on above:Performed By: #### PINR, 17595-8, CMP, 32823-0, 2777-1, CBCA, 42694-7 #### [facility] ([id number]) [address], [address] [place] [address]Qfnnsizsqqcvu metabolic panelon 59-94-5677Anjqhoe [Mass/Vol]2.8 g/dLLow3.2 - 5.3 g/dLProMedica Health SystemALP [Catalytic activity/Vol]200 U/L High39 - 130 U/LProMedica Health SystemALT No additional P-5'-P [Catalytic activity/Vol]53 U/LHigh0 - 31 U/LProMedica Health SystemAnion gap [Moles/Vol]9 mmol/L5 - 15 mmol/LProMedica Health SystemAST [Catalytic activity/Vol]56 U/LHigh 0 - 41 U/LProMedica Health SystemBilirubin [Mass/Vol]0.6 mg/dL0.3 - 1.2 mg/dL [facility] Health SystemCalcium [Mass/Vol]8.6 mg/dL8.5 - 10.5 mg/dLUniversity [facility]als [facility] SystemChloride [Moles/Vol]107 mmol/L98 - 109 mmol/LProMedica Health SystemCO2 [Moles/Vol]25 mmol/L22 - 32 mmol/LPrAdventHealth Porter Health SystemCreatinine [Mass/Vol]0.95 mg/dL0.40 - 1.00 mg/dLTriHealth McCullough-Hyde Memorial HospitalComment on above: METHOD TRACEABLE TO IDSD STANDARDeGFR (CKD-EPI)non-race dopxxubpr92- PINF [facility]-Hy[facility] Memorial HospitalComment on above: Reported eGFR is based on the CKD-EPI 2020 equation that does not use a race coefficient. Glucose [Mass/Vol]80 mg/dL65 - 99 mg/dLTriHealth McCullough-Hyde Memorial HospitalInterpretation and review of laboratory resultsAbnormalProFayette County Memorial Hospital SystemPotassium [Moles/Vol]3.7 mmol/L3.5 - 5.0 mmol/LProMedica Health SystemProtein [Mass/Vol] 5.8 g/dLLow6.0 - 8.0 g/dLProFayette County Memorial Hospital SystemSodium [Moles/Vol]141 mmol/L134 - 146 mmol/[facility] SystemUrea nitrogen [Mass/Vol]33 mg/dLHigh5 - 27 mg/dLTriHealth McCullough-Hyde Memorial HospitalIonized magnesiumon 75-28-7526Judwnyabx Ionized ISE (Bld) [Moles/Vol]0.61 mmol/L0.45 - 0.74 mmol/[facility] SystemComment on above:NEW REFERENCE RANGEMAGNESIUMon 17-37-9691Vqfqeldsl [Mass/Vol]1.9 mg/dL Normal1.8-2.6[facility] HospitalComment on above:Performed By: #### PINR, 16261-8, CMP, 40358-9, 2777-1, CBCA, 64890-6 #### [facility] ([id number]) [address] [place] [address], [address] [place], [place] [address]Qfscaoyieju 67-57-2487Uhpgnexkt [Mass/Vol]1.9 mg/dL1.8 - 2.6 mg/dLTriHealth McCullough-Hyde Memorial HospitalMagnesium Ionized ISE (Bld) [Moles/Vol]on 05-24-2024 [facility] SystemMagnesium [Moles/Vol]0.61 mmol/LNormal0.45-0.74ProWadsworth-Rittman HospitalComment on above:Result Comment: NEW REFERENCE RANGEPerformed By: #### PINR, 68828-2, CMP, 15453-3, 2777-1, CBCA, 30192-1 #### [facility] ([id number]) [address], [address] [place], [place] [address]Ps Panel Informationon 61-07-9179WndWhmskb Health System PHOSPHORUSon 36-50-0134Mgcxgfgzw [Mass/Vol]3.1 mg/dLNormal2.4-4.9ProWadsworth-Rittman HospitalComment on above:Performed By: #### PINR, 92457-5, CMP, 18496-5, 2777-1, CBCA, 30928-5 #### [facility] ([id number]) [address], [address] [place], [place] [address]AGWYPAHOLjz 81-39-1160Ajicqopvm [Moles/Vol]3.9 mmol/LNormal 3.5-5.0ProWadsworth-Rittman HospitalComment on above:Performed By: #### PINR, 01650- 9, CMP, 33564-2, 2777-1, CBCA, 34840-3 #### [facility] ([id number]) [address], [address] [place], [place] [address]Qbolojaunoax 45-69-5501Vybhcflkl [Mass/Vol]3.1 mg/dL2.4 - 4.9 mg/dLProFayette County Memorial Hospital SystemPotassiumon 33-20-0418Cinxpkavl [Moles/Vol]3.9 mmol/L3.5 - 5.0 mmol/LProMedica Health SystemPotassium [Moles/Vol]on 05-24-2024 [facility] Systemedic Health SystemBLOOD CULTUREon 37-44-5950Zthgoakf identified Aer cx Nom (Bld)SPECIMEN NOTES SUBOPTIMAL VOLUME OF BLOOD COLLECTED, RESULTS MAY BE AFFECTED. CULTURE RESULTS NO GROWTH 5 DAYSNormalProDayton Osteopathic Hospitalo HospitalComment on above:Performed By: #### PINR, 85561-7, CMP, 61112-6, 2777-1, CBCA, 10725-8 #### [facility] ([id number]) [address], [address] [place], [place] [address]FQG AND AUTO DIFFon 76-48-8585Pvwf form neutrophils/100 WBC (Bld)16.0 %NormalProMedica Cuba HospitalComment on above:Performed By: #### PINR, 34634-1, CMP, 21670-1, 2777-1, CBCA, 73009-8 #### [facility] ([id number]) [address], [address] [place], [place] [address]Dwpxzswzuml distribution width (RBC) [Ratio]15.2 %High11.5-15.0 [facility] [place] HospitalComment on above:Performed By: #### PINR, 75939-7, CMP, 93729-6, 7-1, CBCA, 75892-3 #### [facility] ([id number]) [address], [address] [place], [place] [address]Oqygtsoodc (Bld) [Volume fraction]34.6 %Izh82-78OopSjakdc [place] HospitalComment on above:Performed By: #### PINR, 17100-9, CMP, 39594-0, 7-1, CBCA, 36577-9 #### [facility] ([id number]) [address], [address] [place], [place] [address]Hvydwhkuag (Bld) [Mass/Vol]11.7 g/cGGroskl69.7-15.5ProMedica [place] HospitalComment on above:Performed By: #### PINR, 98023-1, CMP, 38335-0, 2777-1, CBCA, 05338-9 #### [facility] ([id number]) [address], [address] [place], [place] [address]Fshnomxrtqb (Bld) [#/Vol]1.6 10*3/uLNormal1.0-3.5ProMedica [place] HospitalComment on above:Performed By: #### PINR, 03790-1, CMP, 97171-9, 2777-1, CBCA, 49839-5 #### [facility] ([id number]) [address], [address] [place], [place] [address]Jyofxemonnk/100 WBC (Bld)4.0 %NormalProOhiohealth Southeastern Medical Center Hospital Comment on above:Performed By: #### PINR, 55151-5, CMP, 77169-8, 2777-1, CBCA, 11901-8 #### [facility] ([id number]) [address], [address] [place], [place] [address]AKG (RBC) [Entitic mass]29.7 pwBtexvi34-01FsdPpupxj [place] HospitalComment on above:Performed By: #### PINR, 62408-6, CMP, 10230-1, 2777-1, CBCA, 41066-3 #### [facility] ([id number]) [address], [address] [place], [place] [address]DTFH (RBC) [Mass/Vol]33.7 g/lZOwpwjw11-54VvoRgmvud [facility] HospitalComment on above:Performed By: #### PINR, 62769-6, CMP, 13616-8, 2777-1, CBCA, 77355-3 #### [facility] ([id number]) [address], [address] [place], [place] [address]AQD (RBC) [Entitic vol]88 sGTuibrd46-352CvhUzojhl [place] HospitalComment on above:Performed By: #### PINR, 00812-6, CMP, 33745-4, 2777-1, CBCA, 96359-1 #### [facility] ([id number]) [address], [address] [place], [place] [address]Qnjodolsfugyse/100 WBC (Bld)1.0 %NormalMarietta Memorial Hospital Comment on above:Performed By: #### PINR, 52389-9, CMP, 16067-0, 2777-1, CBCA, 44015-0 #### [facility] ([id number]) [address], [address] [place], [place] [address]Uzwoxhdqz (Bld) [#/Vol]0.4 10*3/uLNormal0-0.9ProWadsworth-Rittman HospitalComment on above:Performed By: #### PINR, 00137-0, CMP, 77827-8, 2777-1, CBCA, 19496-6 #### [facility] ([id number]) [address], [address] [place], [place] [address]Dkxjkudxw/100 WBC (Bld)1.0 %NormalMarietta Memorial Hospital Comment on above:Performed By: #### PINR, 54482-5, CMP, 08816-3, 2777-1, CBCA, 40560-8 #### [facility] ([id number]) [address], [address] [place], [place] [address]LTUNFGQPPA VACUOLES1+AbnormalNONEProMedica [facility] Comment on above:Performed By: #### PINR, 80993-7, CMP, 14328-6, 2777-1, CBCA, 52572-4 #### [facility] ([id number]) [address], [address] [place], [place] [address]Aypzxjfbcro (Bld) [#/Vol]36.6 10*3/uLHigh1.5-6.6ProWadsworth-Rittman HospitalComment on above:Performed By: #### PINR, 80367-1, CMP, 62320-7, 2777- 1, CBCA, 13108-1 #### [facility] ([id number]) [address], [address] [place], [place] [address]Upnkprlq mean volume (Bld) [Entitic vol]8.8 fLNormal7-12 [facility] HospitalComment on above:Performed By: #### PINR, 16595-7, CMP, 49709-0, 2777-1, CBCA, 78915-6 #### [facility] ([id number]) [address], [address] [place], [place] [address]Arlwmgnsn (Bld) [#/Vol]91 10*3/kUYlp708-845FhoOpyzaj Ashraf HospitalComment on above:Performed By: #### PINR, 61861-8, CMP, 49723-1, 2777-1, CBCA, 31765-9 #### [facility] ([id number]) [address], [address] [place], [place] [address]JQC COUNT3.92 X10E12/LNormal3.80-5.20[facility] Comment on above:Performed By: #### PINR, 87493-2, CMP, 12396-5, 2777-1, CBCA, 88702-5 #### [facility] ([id number]) [address], [address] [place], [place] [address]LMC morphology finding Nom (Bld)NORMALNormalProMedica Ashraf HospitalComment on above:Performed By: #### PINR, 32452-8, CMP, 76034-4, 2777-1, CBCA, 58877-9 #### [facility] ([id number]) [address], [address] [place], [place] [address]ZDU ZUKTBXXWDX38.0 %NormalProMedica Ashraf HospitalComment on above:Performed By: #### PINR, 18987-8, CMP, 63394-1, 2777-1, CBCA, 70391-7 #### [facility] ([id number]) [address], [address] [place], [place] [address]XOW (Bld) [#/Vol]39.0 10*3/uLHigh4.0-11.0[facility] HospitalComment on above:Performed By: #### PINR, 35031-1, CMP, 63338-8, 2777-1, CBCA, 74973-8 #### [facility] ([id number]) [address] [place], [place] [address]KGP auto differentialon 58-13-8245Mciz form neutrophils/100 WBC (Bld)16 %[facility] SystemErythrocyte distribution width (RBC) [Ratio]15.2 %High11.5 - 15.0 %[facility] SystemHematocrit (Bld) [Volume fraction]34.6 %Low35 - 47 %[facility] SystemHemoglobin (Bld) [Mass/Vol]11.7 g/dL11.7 - 15.5 g/dLUniversity Hospitals [facility] SystemInterpretation and review of laboratory results AbnormalUniversity Hospitals [facility] SystemLeukocyte toxic vacuoles LM Ql (Bld)1+Abnormal NONE^NONEUniversity Hospitals [facility] Center SystemLymphocytes (Bld) [#/Vol]1.6 10*3/uLUniversity Hospitals Par[facility] Medical Center SystemLymphocytes/100 WBC (Bld)4 %[facility] HospitalMCH (RBC) [Entitic mass]29.7 pg27 - 34 pgPOhio State East HospitalMCHC (RBC) [Mass/Vol]33.7 g/dL32 - 36 g/dLTriHealth McCullough-Hyde Memorial HospitalMCV (RBC) [Entitic vol]88 fL80 - 100 fL [facility] SystemMetamyelocytes/100 WBC (Bld)1 %[facility] System Monocytes (Bld) [#/Vol]0.4 10*3/uLUniversity Hospitals Parma Medical Center SystemMonocytes/100 WBC (Bld) 1 %[facility] SystemNeutrophils (Bld) [#/Vol]36.6 10*3/uLHighUniversity Hospitals Parma Medical Center SystemPlatelet mean volume (Bld) [Entitic vol]8.8 fL7 - 12 fLPHolmes County Joel Pomerene Memorial Hospital SystemPlatelets (Bld) [#/Vol]91 10*3/uLLowProMedica Health System Polymorphonuclear cells/100 WBC (Bld)NORMALTriHealth McCullough-Hyde Memorial HospitalRBC (Bld) [#/Vol]3.92 10*6/uLAtrium Health Mercyegmented neutrophils/100 WBC (Bld)78 %[facility] Memorial HospitalWBC corrected for nucl RBC Auto (Bld) [#/Vol]39High [facility] Hospital of ErieCOMPREHENSIVE METABOLIC PANELon 05-93-3198Wquyxnf [Mass/Vol]3.1 g/dLLow3.2-5.3PWayne HealthCare Main Campus HospitalComment on above:Performed By: #### PINR, 18700-9, CMP, 91239-9, 2777-1, CBCA, 67536-8 #### [facility] ([id number]) [address], [address] [place], [place] [address]GNW [Catalytic activity/Vol]256 U/LWgrk27-740JmcQzqzlyWadsworth-Rittman HospitalComment on above:Performed By: #### PINR, 67790-6, CMP, 80726-8, 2777-1, CBCA, 35417-6 #### [facility] ([id number]) [address], [address] [place], [place] [address]YLJ [Catalytic activity/Vol]65 U/LHigh0-31PGreen Cross HospitalComment on above:Performed By: #### PINR, 62354-6, CMP, 99036-5, 2777-1, CBCA, 64954-2 #### [facility] ([id number]) [address], [address] [place], [place] [address]Vijcp gap [Moles/Vol]14 mmol/LNormal5-15[facility] HospitalComment on above:Performed By: #### PINR, 31707-3, CMP, 58337-6, 2777-1, CBCA, 28653-9 #### [facility] ([id number]) [address], [address] [place], [place] [address]IAL [Catalytic activity/Vol]48 U/LHigh0-41[facility] HospitalComment on above:Performed By: #### PINR, 43325-6, CMP, 42649-6, 7-1, CBCA, 86579-0 #### [facility] ([id number]) [address], [address] [place], [place] [address]Nzybqzltt [Mass/Vol]0.6 mg/dLNormal0.3-1.2[facility] HospitalComment on above:Performed By: #### PINR, 87080-6, CMP, 05533-4, 7-1, CBCA, 97709-3 #### [facility] ([id number]) [address], [address] [place], [place] [address]Llpbwlt [Mass/Vol]8.5 mg/dLNormal8.5-10.5Pro[facility] HospitalComment on above:Performed By: #### PINR, 28702-6, CMP, 66170-3, 2776-, CBCA, 64562-7 #### [facility] ([id number]) [address], [address] [place], [place] [address]Okzlzmru [Moles/Vol]103 mmol/BZqhnir46-648RycLpidcz Ashraf HospitalComment on above:Performed By: #### PINR, 70116-5, CMP, 18828-2, 2776-, CBCA, 90194-6 #### [facility] ([id number]) [address], [address] [place], [place] [address]IS1 [Moles/Vol]20 mmol/XNce28-91IntPmgray Ashraf HospitalComment on above:Performed By: #### PINR, 41117-4, CMP, 73449-4, 2777-1, CBCA, 40743-2 #### [facility] ([id number]) [address], [address] [place], [place] [address]Iabgvemfls [Mass/Vol]1.47 mg/dLHigh0.40-1.00ProWadsworth-Rittman HospitalComment on above:Result Comment: METHOD TRACEABLE TO IDMS STANDARD Performed By: #### BERNARD, 35017-7, CMP, 96605-6, 7-1, CBCA, 83539-2 #### [facility] ([id number]) [address], [address] [place], [place] [address]EWW/1.73 sq M.predicted among non-blacks MDRD (S/P/Bld) [Vol rate/Area]39 mL/min/{1.73_m2}Low>59ProWadsworth-Rittman HospitalComment on above: Result Comment: Reported eGFR is based on the CKD-EPI 2020 equation that does not use a race coefficient.Performed By: #### BERNARD, 53624-7, CMP, 61207-7, 2776- 1, CBCA, 74469-2 #### [facility] ([id number]) [address], [address] [place], [place] [address]Ksegezp [Mass/Vol]93 mg/xBWfqtdy80-52TjlEqlmio [facility] Comment on above:Performed By: #### BERNARD, 34652-8, CMP, 33989-2, 2776-, CBCA, 20663-9 #### [facility] ([id number]) [address], [address] [place], [place] [address]Jwjjpnkcz [Moles/Vol]3.7 mmol/LNormal3.5-5.0ProWadsworth-Rittman HospitalComment on above:Performed By: #### BERNARD, 77558-4, CMP, 37072-3, 2777-1, CBCA, 17311-6 #### [facility] ([id number]) [address], [address] [place], [place] [address]Flxagmu [Mass/Vol]6.5 g/dLNormal6.0-8.0[facility] Comment on above:Performed By: #### BERNARD, 20016-3, CMP, 98587-9, 2777-1, CBCA, 75468-0 #### [facility] ([id number]) [address], [address] [place], [place] [address]Zsrwht [Moles/Vol]137 mmol/SDcfvby196-442NncUgvyxp [facility] HospitalComment on above:Performed By: #### PINR, 73328-1, CMP, 67624-4, 2776-1, CBCA, 90233-3 #### [facility] ([id number]) [address], [address] [place], [place] [address]Pecp nitrogen [Mass/Vol]41 mg/dLHigh5-27ProWadsworth-Rittman HospitalComment on above:Performed By: #### PINR, 70458-6, CMP, 93230-6, 2776-1, CBCA, 01802-6 #### [facility] ([id number]) [address], [address] [place], [place] [address]Ucayvyjgwiwfu metabolic panelon 39-34-2592Lqyozyx [Mass/Vol]3.1 g/dLLow3.2 - 5.3 g/dLProMedica Health SystemALP [Catalytic activity/Vol]256 U/L High39 - 130 U/LProMedica Health SystemALT No additional P-5'-P [Catalytic activity/Vol]65 U/LHigh0 - 31 U/LProMedica Health SystemAnion gap [Moles/Vol]14 mmol/L5 - 15 mmol/LProMedica Health SystemAST [Catalytic activity/Vol]48 U/LHigh 0 - 41 U/LProMedica Health SystemBilirubin [Mass/Vol]0.6 mg/dL0.3 - 1.2 mg/dL [facility] Health SystemCalcium [Mass/Vol]8.5 mg/dL8.5 - 10.5 mg/dLProMedica Health SystemChloride [Moles/Vol]103 mmol/L98 - 109 mmol/LProMedica Health SystemCO2 [Moles/Vol]20 mmol/LLow22 - 32 mmol/LProMedica Health SystemCreatinine [Mass/Vol]1.47 mg/dLHigh0.40 - 1.00 mg/dLTriHealth McCullough-Hyde Memorial HospitalComment on above:METHOD TRACEABLE TO IDSD STANDARDeGFR (CKD-EPI)non-race obskwuvyp34CfxJohn Randolph Medical CenterComment on above: Reported eGFR is based on the CKD-EPI 2020 equation that does not use a race coefficient. Glucose [Mass/Vol]93 mg/dL65 - 99 mg/dLTriHealth McCullough-Hyde Memorial HospitalPotassium [Moles/Vol]3.7 mmol/L3.5 - 5.0 mmol/LPrAdventHealth Porter Health SystemProtein [Mass/Vol] 6.5 g/dL6.0 - 8.0 g/dLUniversity [facility]als [facility] SystemSodium [Moles/Vol]137 mmol/L134 - 146 mmol/[facility] SystemUrea nitrogen [Mass/Vol]41 mg/dLHigh5 - 27 mg/dLTriHealth McCullough-Hyde Memorial HospitalMAGNESIUMon 65-47-3729Vudqbpdba [Mass/Vol]2.0 mg/dL Normal1.8-2.6[facility] HospitalComment on above:Performed By: #### BERNARD, 12710-3, CMP, 46627-7, 7-1, CBCA, 21079-8 #### [facility] ([id number]) [address] [place], [place] [address]Rxbjmqxxcos 08-47-0281Qdoqtvufb [Mass/Vol]2 mg/dL1.8 - 2.6 mg/dL [facility] HospitalNo Panel Informationon 40-69-8068Egzetirjpircjl and review of laboratory resultsAbnormalProWilson HealthProWilson HealthPHOSPHORUSon 27-10-6899Hxahwpuso [Mass/Vol]2.4 mg/dLNormal2.4-4.9[facility] HospitalComment on above:Performed By: #### KATLYNR, 52361-0, CMP, 56008-4, 2777-1, CBCA, 70611-1 #### [facility] ([id number]) [address] [place], [place] [address]OBVEYXAUItc 81-62-7265Oeqthglfa [Moles/Vol]3.7 mmol/LNormal 3.5-5.0[facility] HospitalComment on above:Performed By: #### PINR, 53788- 9, CMP, 26781-0, 2777-1, CBCA, 42492-1 #### [facility] ([id number]) [address], [address] [place], [place] [address]Lyjzjtfge [Moles/Vol]3.5 mmol/LNormal3.5-5.0[facility] HospitalComment on above:Performed By: #### PINR, 09227-8, CMP, 89085-7, 2777-1, CBCA, 88793-2 #### [facility] ([id number]) [address], [address] [place], [place] [address]Aedgkewktrye 70-19-8223Rzjdviusm [Mass/Vol]2.4 mg/dL2.4 - 4.9 mg/dLTriHealth McCullough-Hyde Memorial HospitalPotassiumon 61-30-7208Cqvsfaers [Moles/Vol]3.7 mmol/L3.5 - 5.0 mmol/LPrAdventHealth Porter Health SystemPotassium [Moles/Vol]3.5 mmol/L3.5 - 5.0 mmol/LPrRiverside Methodist Hospital SystemPotassium [Moles/Vol]on 03-50-0612JihOiguuuLatrobe HospitalProcalcitoninon 85-44-1092Dfuysoyjxljyj [place] [Mass/Vol]242.46 ng/mLHighNINF - 0.05 ng/mLTriHealth McCullough-Hyde Memorial HospitalComment on above:NOTE <0.50 ng/mL - Low risk of severe sepsis and/or septic shock. <2.00 ng/mL - Recommend retesting within 6-24 hours. >2.00 ng/mL - High risk of sepsis and/or septic shock. Procalcitonin [place] [Mass/Vol]on 45-26-9842JNXGPOVVJIVWT348.46 ng/mLHigh<0.05 [facility] HospitalComment on above:Result Comment: NOTE <0.50 ng/mL - Low risk of severe sepsis and/or septic shock. <2.00 ng/mL - Recommend retesting within 6-24 hours. >2.00 ng/mL - High risk of sepsis and/or septic shock.Performed By: #### PINR, 86547-9, CMP, 19428-6, 2777-1, CBCA, 73124-9 #### [facility] ([id number]) [address], [address] [place], [place] [address]Idghluob identified Cx Nom (U)on 57-57-6922Zjcupit comment (Unsp spec) [Interp]<10,000 ORGANISMS/ML NORMAL URO GENITAL FLORAProMedica Health SystemProFayette County Memorial Hospital SystemCBC AND AUTO DIFFon 72-14-3688Yesy form neutrophils/100 WBC (Bld)35.0 %NormalProMedica Cuba HospitalComment on above: Performed By: #### CBCA, CMP, 55221-6, 97346-3, 2777-1 ####[facility] ([id number])[address], [address] [place] [address] 90818JKXQZ BODIES1+ AbnormalNONEProMedica Cuba HospitalComment on above:Performed By: #### CBCA, CMP, 09470-7, 13027-7, 2777-1 ####[facility] ([id number])[address], [address] [place] [address] 18354Tqijcszafzd/100 WBC (Bld)4.0 %Normal ProMedica [place] HospitalComment on above:Performed By: #### CBCA, CMP, 04690-5, 37566-8, 2777-1 ####[facility] ([id number])[address], [address] [place] [address] 76222Rjukpgiljtrbkt/100 WBC (Bld)5.0 %NormalProMedica Cuba HospitalComment on above:Performed By: #### CBCA, CMP, 49522-6, 88310-2, 2777-1 ####[facility] ([id number])[address], [address] [place] [address] 12764Ryidsoklx/100 WBC (Bld)2.0 %NormalProMedica Cuba HospitalComment on above:Performed By: #### CBCA, CMP, 60611-1, 46910-1, 277- ####[facility] ([id number])[address], [address] [place] [address] 55291DUWKYZPOU2.0 %NormalProUniversity Hospitals Port[facility] Medical Centerca [place] HospitalComment on above:Performed By: #### CBCA, CMP, 46582-6, 57111-2, 277- ####[facility] ([id number])[address], [address] [place] [address] 92689PZB COUNT3.55 X10E12/LLow3.80-5.20ProMedica [place] HospitalComment on above:Performed By: #### CBCA, CMP, 28404-7, 28846-7, 277- ####[facility] ([id number])[address], [address] [place] [address] 23673YLC NVAXSQLTER49.0 %NormalProUniversity Hospitals Portage Medical Centerca [place] HospitalComment on above:Performed By: #### CBCA, CMP, 22816-0, 38523-4, 27701-21 ####[facility] ([id number])[address], [address] [place] [address] 83333ZGA (Bld) [#/Vol]28.1 10*3/uLHigh4.0-11.0ProUniversity Hospitals Portage Medical Centerca [place] HospitalComment on above: Performed By: #### CBCA, CMP, 13055-7, 25049-4, 277- ####[facility] ([id number])[address], [address] [place] [address] 47081Pxflztqykzf distribution width (RBC) [Ratio]14.9 %Jwswzp32.5-15.0[facility] System Comment on above:Performed By: #### CBCA, CMP, 29531-3, 34347-1, 27701-21 ####[facility] ([id number])[address], [address] [place] [address] 13428Eyzarvscmg (Bld) [Volume fraction]31.3 %Gua34-11OhsHgyaozTriHealth McCullough-Hyde Memorial Hospital Comment on above:Performed By: #### CBCA, CMP, 50622-8, 78709-2, 277-1 ####[facility] ([id number])[address], [address] [place] [address] 32828Dnugtrwvxg (Bld) [Mass/Vol]10.6 g/dLLow11.7-15.[address] [place] [address] Comment on above:Performed By: #### CBCA, CMP, 37322-9, 63499-9, 27701-21 ####[facility] ([id number])[address] [address] [place] [address] 13749Dkxdmivgumk (Bld) [#/Vol]1.1 10*3/uLNormal1.0-3.[address] [place] [address] Comment on above:Performed By: #### CBCA, CMP, 03775-5, 19042-0, 277- ####[facility] ([id number])[address] [address] [place] [address] 35115RXL (RBC) [Entitic mass]29.8 onYbegnj62-38PlrOyqdgl Health SystemComment on above:Performed By: #### CBCA, CMP, 64337-4, 08471-0, 277- ####[facility] ([id number])[address] [address] [place] [address]3274IBTN (RBC) [Mass/Vol]33.7 g/bXRrwvic37-69UzuTxydmg Health SystemComment on above: Performed By: #### CBCA, CMP, 65636-7, 28724-0, 277-1 ####[facility] ([id number])[address], [address] [place] [address] 02946AYK (RBC) [Entitic vol]88 vFPpbsea66-666QwtYfbfov Health SystemComment on above:Performed By: #### CHA, CMP, 07458-7, 17832-2, 2777-1 ####[facility] ([id number])[address], [address] [place] [address] 52787Ktngdzqru (Bld) [#/Vol]0.6 10*3/uLNormal0-0.9ProNorthwest Medical Center Health SystemComment on above:Performed By: #### CHA, CMP, 88147-9, 25139-1, 2777-1 ####[facility] ([id number])[address], [address] [place] [address] 67628Vayuttaheys (Bld) [#/Vol] 24.2 10*3/uLHigh1.5-6.6ProNorthwest Medical Center Health SystemComment on above:Performed By: #### CBCAndrew, CMP, 35392-7, 86681-3, 2777-1 ####[facility] ([id number])[address], [address] [place] [address] 50157Emojkdev mean volume (Bld) [Entitic vol]8.3 fLNormal7-12PSlidell Memorial Hospital and Medical Center Health SystemComment on above:Performed By: #### CBCA, CMP, 17694-9, 66689-1, 2777-1 ####[facility] ([id number])[address] [address] [place] [address] 60826Nxvjutemu (Bld) [#/Vol]60 10*3/lAYnt230-666DtvNxvgey Health SystemComment on above:Performed By: #### CBCA, CMP, 38891-1, 72030-3, 2777-1 ####[facility] ([id number])[address], [address] [place] [address] 69769UBR auto differentialon 14-79-5333Sdli form neutrophils/100 WBC (Bld)35 %[facility] SystemDohle body LM Ql (Bld)1+AbnormalNONE^NONEUniversity Hospitals [facility] SystemInterpretation and review of laboratory resultsAbnormalProFayette County Memorial Hospital SystemLymphocytes/100 WBC (Bld)4 %[facility] SystemMetamyelocytes/100 WBC (Bld)5 %[facility] SystemMonocytes/100 WBC (Bld)2 %[facility] SystemMyelocytes/100 WBC (Bld)3 %[facility] SystemRBC (Bld) [#/Vol]3.55 10*6/uLLowUniversity Hospitals Parma [facility] Center System Segmented neutrophils/100 WBC (Bld)51 %[facility] Memorial HospitalWBC corrected for nucl RBC Auto (Bld) [#/Vol]28.1HighEncompass Health Rehabilitation Hospital of ErieCOMPREHENSIVE METABOLIC PANELon 57-05-7668ECS [Catalytic activity/Vol]79 U/LHigh0-31PGreen Cross HospitalComment on above:Performed By: #### ELROY EUBANKS, 57106-3, 56911-2, 2777-1 ####[facility] ([id number])[address] [facility] [address] [address]QVE/1.73 sq M.predicted among non-blacks MDRD (S/P/Bld) [Vol rate/Area]37 mL/min/{1.73_m2}Low>59[facility] Comment on above:Result Comment: Reported eGFR is based on the CKD-EPI 2020 equation that does not use a race coefficient.Performed By: #### ELROY EUBANKS, 59141-4, 19531-7, 2777- 1 ####[facility] ([id number])[address] [facility] [address]Hdfykde [Mass/Vol]2.9 g/dLLow3.2-5.3POhio State East HospitalComment on above:Performed By: #### ELROY EUBANKS, 50836-6, 42590-8, 2777-1 ####[facility] ([id number])[address], [address], [place] [address]HQX [Catalytic activity/Vol]202 U/PJmzu54-970LjcVgaocf Health SystemComment on above:Performed By: #### ELROY EBUANKS, 19829-9, 78635-5, 2777-1 ####[facility] ([id number])[address], [address], [place] [address]Ynvji gap [Moles/Vol]15 mmol/LNormal5-15[facility] SystemComment on above:Performed By: #### ELROY EUBANKS, 07205-4, 71352-0, 2777-1 ####[facility] ([id number])[address], [address], [place] [address]WXD [Catalytic activity/Vol]90 U/LHigh0-41ProFayette County Memorial Hospital SystemComment on above:Performed By: #### ELROY EUBANKS, 53425-5, 54627-5, 2777 ####[facility] ([id number])[address], [address], [place] [address]Dkycjbzlh [Mass/Vol]1.1 mg/dLNormal0.3-1.2PHolmes County Joel Pomerene Memorial Hospital SystemComment on above:Performed By: #### ELROY EUBANKS, 36273-6, 21686-6, 2777- ####[facility] ([id number])[address], [address], [place] [address]Cssopik [Mass/Vol]7.8 mg/dL Low8.5-10.5PSlidell Memorial Hospital and Medical Center Health SystemComment on above:Performed By: #### ELROY EUBANKS, 70407-5, 65658-3, 2777-1 ####[facility] ([id number])[address], [address], [place] [address]Tlsitatx [Moles/Vol]104 mmol/XFoqret04-354 ProMnorth alabama medical center Health SystemComment on above:Performed By: #### ELROY EUBANKS, 05843-8, 63697-1, 2776- ####[facility] ([id number])[address], [address] [place] [address]FK7 [Moles/Vol]20 mmol/NIjq36-88ZffPybpwe Health System Comment on above:Performed By: #### ELROY EUBANKS, 39171-1, 00854-7, 277- ####[facility] ([id number])[address], [address], [place] [address]Dhnplbwhul [Mass/Vol]1.53 mg/dLHigh0.40-1.00[facility] SystemComment on above:METHOD TRACEABLE TO IDMS STANDARDResult Comment: METHOD TRACEABLE TO IDMS STANDARDPerformed By: #### ELROY EUBANKS, 45851-8, 81115-1, 27701-21 ####[facility] ([id number])[address], [address], [place] [address] Glucose [Mass/Vol]116 mg/gMGckm41-49WmuFulbxv Health SystemComment on above: Performed By: #### ELROY EUBANKS, 73609-5, 08110-2, 2771 ####[facility] ([id number])[address] [address], [place] [address]Srpbydcem [Moles/Vol]4.2 mmol/LNormal3.5-5.0[facility] SystemComment on above: Performed By: #### ELROY EUBANKS, 53983-0, 43727-2, 277- ####[facility] ([id number])[address], [address], [place] [address]Iysqirg [Mass/Vol]5.7 g/dLLow6.0-8.0ProFayette County Memorial Hospital SystemComment on above:Performed By: #### ELROY EUBANKS, 53257-5, 38366-8, 2777-1 ####[facility] ([id number])[address] [address]Hbnbem [Moles/Vol]139 mmol/EHpphmc554-950SsgVzoqpw Health SystemComment on above:Performed By: #### CBCAndrew, CMP, 81984-8, 89578-4, 2777-1 ####[facility] ([id number])[address] [address]Hzoy nitrogen [Mass/Vol]28 mg/dLHigh5-27[facility] Memorial HospitalComment on above:Performed By: #### CBCAndrew, CMP, 03143-3, 84574-3, 2777-1 ####[facility] ([id number])[address] [place] [address]Ujmqlqo.ionized (Bld) [Mass/Vol]on 79-93-6570IBMFFGA CALCIUM4.4 mg/dLLow4.5-5.3PGreen Cross HospitalComment on above:Performed By: #### 35480-9, 87535-7 ####[facility] ([id number])[address] [address]OibHllrioTriHealth McCullough-Hyde Memorial Hospital IONIZED CALCIUM4.5 mg/dLNormal4.5-5.3PGreen Cross HospitalComment on above: Performed By: #### PINR, 20293-5, CMP, 81806-2, 2777-1, CBCA, 88855-9 #### [facility] ([id number]) [address] [address]Ewkmdaehcjatru and review of laboratory resultsAbnoSuburban Community HospitalComprehensive metabolic panelon 05-22-2024 ALT No additional P-5'-P [Catalytic activity/Vol]79 U/LHigh0 - 31 U/LPrSumma Health Akron CampuseGFR (CKD-EPI)non-race rukjtsetu31Pdq- [facility] Comment on above: Reported eGFR is based on the CKD-EPI 2021 equation that does not use a race coefficient. Ionized calciumon 30-10-7527Elzxfgc.ionized (Bld) [Mass/Vol]4.5 mg/dL4.5 - 5.3 mg/dLUniversity Hospitals Parma [facility] Center SystemCalcium.ionized (Bld) [Mass/Vol]4.4 mg/dLLow4.5 - 5.3 mg/dLUniversity Hospitals Parma Medical Center SystemIonized magnesiumon 42-66-4995Ohukkajpa Ionized ISE (Bld) [Moles/Vol]0.54 mmol/L0.45 - 0.74 mmol/LPrRiverside Methodist Hospital SystemComment on above:NEW REFERENCE RANGELaboratory - Chemistry and Chemistry - challengeon 92-13-5727Msqglryxl [Mass/Vol]1.8 mg/dLNormal1.8-2.6[facility] Comment on above:Performed By: #### CHA, ELROY, 54349-0, 96278-2, 2777-1 ####[facility] ([id number])[address], [address], [place] [address]Dgewflpyr [Mass/Vol]4.7 mg/dLNormal2.4-4.9[facility] Memorial HospitalComment on above:Performed By: #### BERNARD, 30398-8, CMP, 74075-6, 2776-1, CBCA, 43263-3 #### [facility] ([id number]) [address], [address] [place], [place] [address]Jefdxzp (P jannette) [Moles/Vol]on 33-53-8408UdwJmrtlj Health System LACTATE W/REFLEX1.3 mmol/LNormal0.4-2.0ProWadsworth-Rittman HospitalComment on above:Result Comment: Result did not trigger repeat Lactate, re-order if needed.Performed By: #### BERNARD, 40636-5, CMP, 57984-3, 7-1, CBCA, 86377-2 #### [facility] ([id number]) [address], [address] [place], [place] [address]PfjBqjwcwTriHealth McCullough-Hyde Memorial HospitalLACTATE W/REFLEX1.6 mmol/LNormal0.4-2.0 ProMSuburban Community Hospital & Brentwood HospitalComment on above:Result Comment: Result did not trigger repeat Lactate, re-order if needed.Performed By: #### PINR, 79924-9, CMP, 57588-7, 2777-1, CBCA, 29174-7 #### [facility] ([id number]) [address] [facility] [address] [place], [place] [address]Xfzwfws w/ Reflexon 06-65-7142Qhtewew (P jannette) [Moles/Vol]1.3 mmol/L0.4 - 2.0 mmol/LProMedica Health SystemComment on above: Result did not trigger repeat Lactate, re-order if needed. Lactate (P jannette) [Moles/Vol]1.6 mmol/L0.4 - 2.0 mmol/LProMedica Health System Comment on above: Result did not trigger repeat Lactate, re-order if needed. Magnesium Ionized ISE (Bld) [Moles/Vol]on 33-80-5539Xdxbigfbw [Moles/Vol]0.54 mmol/LNormal0.45-0.74[facility] HospitalComment on above:Result Comment: NEW REFERENCE RANGEPerformed By: #### 31264-4, 09469-3 ####[facility] ([id number])[address] [facility], [address] [place] [address]GvaLlulfmTriHealth McCullough-Hyde Memorial HospitalNo Panel Informationon 54-28-4075Gtenqswvmgstwx and review of laboratory resultsAbnormalProWilson HealthProFayette County Memorial Hospital SystemProcalcitoninon 39-54-9269Vbfvxcdwxzmnd [place] [Mass/Vol]424.58 ng/mLHighNINF - 0.05 ng/mLTriHealth McCullough-Hyde Memorial HospitalComment on above:NOTE <0.50 ng/mL - Low risk of severe sepsis and/or septic shock. <2.00 ng/mL - Recommend retesting within 6-24 hours. >2.00 ng/mL - High risk of sepsis and/or septic shock. Procalcitonin IA [Mass/Vol]on 44-53-3987WYYWYPEQALZQC093.58 ng/mLHigh<0.05 [facility] HospitalComment on above:Result Comment: NOTE <0.50 ng/mL - Low risk of severe sepsis and/or septic shock. <2.00 ng/mL - Recommend retesting within 6-24 hours. >2.00 ng/mL - High risk of sepsis and/or septic shock.Performed By: #### PINR, 93297-7, CMP, 46338-8, 2777-1, CBCA, 50225-4 #### [facility] ([id number]) [address], [address] [place], [place] [address]MLHYgn 96-07-2157gDDK Coag (PPP) [Time]29 [facility] HospitalArterial Line Insertionon 46-96-2657AwijSTEPHEN Cobian 05/21/2024 2:23 PM Arterial Line Insertion Date/Time: [...] to verify the correct patient, procedure, equipment, whanau support worker and site/side marked as required. Fire Risk [...] procedure Complications: none Interventions: none [facility] Health SystemBLOOD CULTUREon 02-79-8447Tsjrwlsi identified Aer cx Nom (Bld)CULTURE RESULTS ESCHERICHIA COLI FOR SUSCEPTIBILITY, SEE PREVIOUS REPORT.NormalMarietta Memorial HospitalComment on above:Performed By: #### PINR, 94616-2, CMP, 22669-9, 2777-1, CBCA, 43315-4 #### [facility] ([id number]) [address] [facility] [place], [place] [address]Amcnnyxu identified Aer cx Nom (Bld)CULTURE RESULTS ESCHERICHIA [...] PIPERACIL/TAZOBACTAM S <=4 F TOBRAMYCIN S <=1 FSusceptibleProWadsworth-Rittman HospitalComment on above:Performed By: #### 34841-4 ####[facility] ([id number])[address], [address], [place] [address]Ctozslsna/100 WBC Manual cnt (Bld)on 05-21-2024 Basophils/100 WBC (Bld)Basophils/100 leukocytes in Blood by Manual countLow 0.2-2.0[facility] ColumbusCBC AND AUTO DIFFon 67-30-9183Zdww form neutrophils/100 WBC (Bld)37.0 %NormalProMedica Ashraf HospitalComment on above: Performed By: #### PINR, 53879-1, CMP, 41361-6, 2777-1, CBCA, 25409-9 #### [facility] ([id number]) [address], [address] [place] [address]Tecqnfvxbda distribution width (RBC) [Ratio]15.3 %High11.5-15.0 [facility] HospitalComment on above:Performed By: #### PINR, 07092-0, CMP, 93530-0, 2777-1, CBCA, 65947-1 #### [facility] ([id number]) [address], [address] [place], [place] [address]Ahgevhtztk (Bld) [Volume fraction]34.6 %Vfl48-35AzvXvvdod Cuba HospitalComment on above:Performed By: #### PINR, 93402-5, CMP, 90889-9, 7-1, CBCA, 40214-7 #### [facility] ([id number]) [address], [address] [place], [place] [address]Nkwwfwomhd (Bld) [Mass/Vol]11.6 g/dLLow11.7-15.5ProMedSelect Medical Specialty Hospital - Cincinnati North HospitalComment on above:Performed By: #### PINR, 70163-7, CMP, 98419-4, 2777- 1, CBCA, 23178-6 #### [facility] ([id number]) [address], [address] [place], [place] [address]Ekgobenjvix (Bld) [#/Vol]0.2 10*3/uLLow1.0-3.5ProMedSelect Medical Specialty Hospital - Cincinnati North HospitalComment on above:Performed By: #### PINR, 79587-7, CMP, 58503-5, 2777-1, CBCA, 99601-6 #### [facility] ([id number]) [address], [address] [place], [place] [address]Pkrcpvikami/100 WBC (Bld)1.0 %[facility] Comment on above:Performed By: #### PINR, 76873-7, CMP, 02020-0, 2777-1, CBCA, 04007-0 #### [facility] ([id number]) [address], [address] [place], [place] [address]CKW (RBC) [Entitic mass]29.7 hgTjwewe18-10DvcPomava [place] HospitalComment on above:Performed By: #### PINR, 62153-5, CMP, 14811-9, 2777-1, CBCA, 35304-1 #### [facility] ([id number]) [address], [address] [place], [place] [address]MNGK (RBC) [Mass/Vol]33.5 g/oNBaqlbb27-34SzoNnqstr [place] HospitalComment on above:Performed By: #### PINR, 12598-4, CMP, 18706-0, 2777-1, CBCA, 93121-9 #### [facility] ([id number]) [address], [address] [place], [place] [address]IBM (RBC) [Entitic vol]89 qMOtoved95-702RgaExahqh [place] HospitalComment on above:Performed By: #### PINR, 30272-1, CMP, 43374-4, 2777-1, CBCA, 86431-1 #### [facility] ([id number]) [address], [address] [place], [place] [address]Flxxbmhjsgytcw/100 WBC (Bld)6.0 %[facility] Comment on above:Performed By: #### PINR, 44906-0, CMP, 18778-2, 2777-1, CBCA, 10993-2 #### [facility] ([id number]) [address], [address] [place], [place] [address]Rlbqnioen (Bld) [#/Vol]0.5 10*3/uLNormal0-0.9ProOhiohealth Southeastern Medical Center HospitalComment on above:Performed By: #### PINR, 05590-8, CMP, 27754-7, 2777-1, CBCA, 27599-1 #### [facility] ([id number]) [address], [address] [place], [place] [address]Juaarczwy/100 WBC (Bld)3.0 %NormalProOhiohealth Southeastern Medical Center Hospital Comment on above:Performed By: #### PINR, 61886-2, CMP, 98597-9, 2777-1, CBCA, 96495-8 #### [facility] ([id number]) [address], [address] [place], [place] [address]Wydresmunme (Bld) [#/Vol]14.2 10*3/uLHigh1.5-6.6ProOhiohealth Southeastern Medical Center HospitalComment on above:Performed By: #### PINR, 79004-3, CMP, 68876-7, 2777- 1, CBCA, 60813-4 #### [facility] ([id number]) [address], [address] [place], [place] [address]Cwfoijul mean volume (Bld) [Entitic vol]7.8 fLNormal7-12 ProMnoland hospital annistona Aultman HospitalComment on above:Performed By: #### PINR, 35965-6, CMP, 77301-1, 2777-1, CBCA, 88845-0 #### [facility] ([id number]) [address], [address] [place], [place] [address]Adpnlwosu (Bld) [#/Vol]63 10*3/rCNha629-650IzvWpdfzz [place] HospitalComment on above:Performed By: #### PINR, 61293-0, CMP, 20390-0, 2777-1, CBCA, 66717-9 #### [facility] ([id number]) [address], [address] [place], [place] [address]DLN COUNT3.90 X10E12/LNormal3.80-5.20ProOhiohealth Southeastern Medical Center Hospital Comment on above:Performed By: #### PINR, 59762-6, CMP, 65873-9, 2777-1, CBCA, 39678-6 #### [facility] ([id number]) [address], [address] [place], [place] [address]ZRE morphology finding Nom (Bld)NORMALNormalProOhiohealth Southeastern Medical Center HospitalComment on above:Performed By: #### PINR, 64182-2, CMP, 20756-9, 2777-1, CBCA, 81736-1 #### [facility] ([id number]) [address], [address] [place], [place] [address]HXZ FTGWCTNATX35.0 %NormalProOhiohealth Southeastern Medical Center HospitalComment on above:Performed By: #### PINR, 37909-5, CMP, 13727-9, 7-1, CBCA, 88433-2 #### [facility] ([id number]) [address], [address] [place] [address]QSD (Bld) [#/Vol]15.8 10*3/uLHigh4.0-11.0ProWadsworth-Rittman HospitalComment on above:Performed By: #### PINR, 31865-5, CMP, 97747-3, 7-1, CBCA, 71658-6 #### [facility] ([id number]) [address], [address] [place], [place] [address]ETX auto differentialon 85-45-5376Butc form neutrophils/100 WBC (Bld)37 %ProMedica Health SystemErythrocyte distribution width (RBC) [Ratio]15.3 %High11.5 - 15.0 %[facility]ica Health SystemHematocrit (Bld) [Volume fraction]34.6 %Low35 - 47 %[facility] Health SystemHemoglobin (Bld) [Mass/Vol]11.6 g/dLLow11.7 - 15.5 g/dLTriHealth McCullough-Hyde Memorial HospitalInterpretation and review of laboratory resultsAbnormalTriHealth McCullough-Hyde Memorial HospitalLymphocytes (Bld) [#/Vol]0.2 10*3/uLLow [facility] Memorial HospitalLymphocytes/100 WBC (Bld)1 %[facility] HospitalH (RBC) [Entitic mass]29.7 pg27 - 34 pgPOhio State East HospitalMCHC (RBC) [Mass/Vol]33.5 g/dL32 - 36 g/dLTriHealth McCullough-Hyde Memorial HospitalMCV (RBC) [Entitic vol]89 fL80 - 100 [facility] HospitalMetamyelocytes/100 WBC (Bld)6 %[facility] Memorial HospitalMonocytes (Bld) [#/Vol]0.5 10*3/uLTriHealth McCullough-Hyde Memorial Hospital Monocytes/100 WBC (Bld)3 %[facility] Memorial HospitalNeutrophils (Bld) [#/Vol]14.2 10*3/uLFort Belvoir Community HospitalPlatelet mean volume (Bld) [Entitic vol]7.8 fL 7 - 12 [facility] HospitalPlatelets (Bld) [#/Vol]63 10*3/uLLowTriHealth McCullough-Hyde Memorial HospitalPolymorphonuclear cells/100 WBC (Bld)NORMALTriHealth McCullough-Hyde Memorial Hospital RBC (Bld) [#/Vol]3.9 10*6/uLAtrium Health Mercyegmented neutrophils/100 WBC (Bld)53 %[facility]-Hy[facility] Memorial HospitalWBC corrected for nucl RBC Auto (Bld) [#/Vol] 15.8HighEncompass Health Rehabilitation Hospital of ErieCOMPREHENSIVE METABOLIC PANELon 84-56-0247Ugzvnvb [Mass/Vol]2.8 g/dLLow3.2-5.3PGreen Cross Hospital Comment on above:Performed By: #### PINR, 86070-7, CMP, 75000-3, 2777-1, CBCA, 97829-6 #### [facility] ([id number]) [address] [facility] [place], [place] [address]WXR [Catalytic activity/Vol]242 U/KZndg28-575EkvWmxbwi Ashraf HospitalComment on above:Performed By: #### PINR, 38776-1, CMP, 92969-3, 2777-1, CBCA, 80109-6 #### [facility] ([id number]) [address], [address] [place], [place] [address]MIT [Catalytic activity/Vol]95 U/LHigh0-31ProMedSelect Medical Specialty Hospital - Cincinnati North HospitalComment on above:Performed By: #### PINR, 11611-7, CMP, 65434-8, 2777-1, CBCA, 01162-7 #### [facility] ([id number]) [address], [address] [place], [place] [address]Kcbhw gap [Moles/Vol]14 mmol/LNormal5-15ProOhiohealth Southeastern Medical Center HospitalComment on above:Performed By: #### PINR, 81437-9, CMP, 33600-3, 2777-1, CBCA, 34368-7 #### [facility] ([id number]) [address], [address] [place], [place] [address]GUN [Catalytic activity/Vol]189 U/LHigh0-41ProOhiohealth Southeastern Medical Center HospitalComment on above:Performed By: #### PINR, 82531-5, CMP, 96894-9, 2777-1, CBCA, 09866-7 #### [facility] ([id number]) [address], [address] [place], [place] [address]Lwfmujrhg [Mass/Vol]1.0 mg/dLNormal0.3-1.2PWayne HealthCare Main Campus HospitalComment on above:Performed By: #### PINR, 18405-4, CMP, 52270-0, 2777-1, CBCA, 84265-9 #### [facility] ([id number]) [address], [address] [place], [place] [address]Sulzdoq [Mass/Vol]8.1 mg/dLLow8.5-10.5Pro[facility] Comment on above:Performed By: #### PINR, 74629-0, CMP, 16394-0, 2777-1, CBCA, 30425-8 #### [facility] ([id number]) [address], [address] [place], [place] [address]Sfalgvuv [Moles/Vol]101 mmol/AEgbbbg61-769DpaDimrzu [place] HospitalComment on above:Performed By: #### PINR, 81818-5, CMP, 62771-3, 2777-1, CBCA, 43682-6 #### [facility] ([id number]) [address], [address] [place], [place] [address]BL5 [Moles/Vol]22 mmol/SQyesli17-08NbgFnimfrGreen Cross [facility] Comment on above:Performed By: #### BERNARD, 69096-7, CMP, 84007-7, 2777-1, CBCA, 95253-8 #### [facility] ([id number]) [address], [address] [place], [place] [address]Asemicefmv [Mass/Vol]1.50 mg/dLHigh0.40-1.00ProWadsworth-Rittman HospitalComment on above:Result Comment: METHOD TRACEABLE TO IDMS STANDARD Performed By: #### BERNARD, 89339-8, CMP, 87910-9, 2777-1, CBCA, 90360-9 #### [facility] ([id number]) [address], [address] [place], [place] [address]DRX/1.73 sq M.predicted among non-blacks MDRD (S/P/Bld) [Vol rate/Area]38 mL/min/{1.73_m2}Low>59ProWadsworth-Rittman HospitalComment on above: Result Comment: Reported eGFR is based on the CKD-EPI 2020 equation that does not use a race coefficient.Performed By: #### PINR, 84155-7, CMP, 30766-4, 2777- 1, CBCA, 25419-0 #### [facility] ([id number]) [address], [address] [place], [place] [address]Gngajrl [Mass/Vol]110 mg/mMDsft13-56NkbXwpivdWadsworth-Rittman Hospital Comment on above:Performed By: #### PINR, 30660-0, CMP, 08647-5, 2777-1, CBCA, 25037-3 #### [facility] ([id number]) [address], [address] [place], [place] [address]Dzkctqmlh [Moles/Vol]3.1 mmol/LLow3.5-5.0ProWadsworth-Rittman HospitalComment on above:Performed By: #### PINR, 90612-2, CMP, 20855-9, 2777-1, CBCA, 56627-8 #### [facility] ([id number]) [address], [address] [place], [place] [address]Wsbxqlm [Mass/Vol]5.8 g/dLLow6.0-8.0[facility] Comment on above:Performed By: #### PINR, 01801-1, CMP, 05611-0, 2777-1, CBCA, 74744-3 #### [facility] ([id number]) [address], [address] [place], [place] [address]Mbtjlt [Moles/Vol]137 mmol/BJtcllz668-640PrpUcmcct [place] HospitalComment on above:Performed By: #### PINR, 11428-7, CMP, 15129-6, 2777-1, CBCA, 79133-4 #### [facility] ([id number]) [address], [address] [place], [place] [address]Bobg nitrogen [Mass/Vol]21 mg/dLNormal5-27ProWadsworth-Rittman HospitalComment on above:Performed By: #### PINR, 25657-5, CMP, 65860-8, 2777-1, CBCA, 32364-8 #### [facility] ([id number]) [address], [address] [place], [place] [address]Hicbsep Line Insertionon [id number] Cobian 05/21/2024 2:27 PM Central Line Insertion [...] to verify the correct patient, procedure, equipment, whanau support worker and site/side marked as required. Fire Risk [...] the procedure Complications: none Interventions: none [facility] [employer] SystemProMedica Health SystemComprehensive metabolic panelon [id number] [Mass/Vol]2.8 g/dLLow3.2 - 5.3 g/dLProNorthwest Medical Center Health SystemALP [Catalytic activity/Vol]242 U/LHigh39 - 130 U/[facility] SystemALT No additional P-5'-P [Catalytic activity/Vol]95 U/LHigh0 - 31 U/[facility] SystemAnion gap [Moles/Vol]14 mmol/L5 - 15 mmol/LPrAdventHealth Porter Health SystemAST [Catalytic activity/Vol]189 U/LHigh0 - 41 U/[facility] SystemBilirubin [Mass/Vol]1 mg/dL0.3 - 1.2 mg/dLUniversity [facility]als [facility] SystemCalcium [Mass/Vol]8.1 mg/dLLow8.5 - 10.5 mg/dLProFayette County Memorial Hospital SystemChloride [Moles/Vol]101 mmol/L98 - 109 mmol/[facility] Health SystemCO2 [Moles/Vol]22 mmol/L22 - 32 mmol/L [facility] HospitalCreatinine [Mass/Vol]1.5 mg/dLHigh0.40 - 1.00 mg/dL [facility] [facility] HospitalComment on above:METHOD [facility] STANDARDeGFR (CKD-EPI)non-race gfvotgakh19Fek PINMercy hospital springfieldComment on above: Reported eGFR is based on the CKD-EPI 2020 equation that does not use a race coefficient. Glucose [Mass/Vol]110 mg/mBVsxj15 - 99 mg/dLUniversity Hospitals Parma Medical Center SystemPotassium [Moles/Vol]3.1 mmol/LLow3.5 - 5.0 mmol/[facility] SystemProtein [Mass/Vol]5.8 g/dLLow6.0 - 8.0 g/dLUniversity Hospitals Parma Medical Center SystemSodium [Moles/Vol]137 mmol/L134 - 146 mmol/[facility] SystemUrea nitrogen [Mass/Vol]21 mg/dL5 - 27 mg/dLUniversity Hospitals Parma Medical Center SystemElectrocardiogram, 12-leadon 05-21-2024 TRACEMASTERVUEUniversity Hospitals Parma Medical Center SystemEosinophils/100 WBC Manual cnt (Bld)on 53-83-2427Krgbkrlbpuk/100 WBC (Bld)Eosinophils/100 leukocytes in Blood by Manual count0.9-7.0[facility] Of ColumbusErythrocyte distribution width Auto (RBC) [Ratio]on 63-28-4562Lppeeosumot distribution width (RBC) [Ratio] Erythrocyte distribution width [Ratio] by Automated count11.0-15.0[facility] Of ColumbusEstimated glomerular filtration rate (GFR) non- Americanon 19-56-4050NXC/1.73 sq M.predicted among non-blacks MDRD (S/P/Bld) [Vol rate/Area]Estimated glomerular filtration rate (GFR) non- Low>=60 mL/min/1.73m 2FHighland District HospitalFine granular cast count in urine sediment by microscopy (number/low power field )on 59-64-9866Rrdx Granular Casts LM.LPF (Urine sed) [#/Area]Fine granular cast count in urine sediment by microscopy (number/low power field )[facility] Hospital Of ColumbusGlobulin Calc (S) [Mass/Vol]on 23-14-9262Wpbcbluz (S) [Mass/Vol]Serum globulin measurement by calculation (mass/volume)[facility] Of ColumbusGlucose Glucometer (BldC) [Mass/Vol]on 00-33-7895Rkcwkeb [Mass/Vol]114 mg/vDGver51 - 99 mg/dLProFayette County Memorial Hospital SystemInterpretation and review of laboratory resultsAbnormalProWilson HealthProFayette County Memorial Hospital SystemGlucose [Mass/Vol]114 mg/vRPygb03-98JabCckrki [place] HospitalGuidance for percutaneous placement of nephrostomy tube of Kidneyon 52-82-3233ABRS: Image guided percutaneous nephrostomy tube placement, left [...] was then dilated to accommodate a 10 Botswanan nephrostomy tube. The catheter was secured with a single 0 Prolene suture. Dressing applied. Patient tolerated all procedures well and there were no complications. FINDINGS: Severe left hydronephrosis, fluoroscopic images demonstrated appropriate positioning of nephrostomytube within the collecting system IMPRESSION: Successful image guided placement of left 10 Botswanan percutaneous nephrostomy tube PLAN: Maintained to gravity drainage Follow-up urine culture Routine catheter exchange should be performed in 6-8 weeks pending definitive urologic management Finalized by Den Thompson MD on 05/21/2024 5:07 PMSECTRAPACSHadirolo, Den Perera MD - 05/21/2024 EXAM: Image [...] was then dilated to accommodate a 10 [place]an nephrostomy tube. The catheter was secured with a single 0 Prolene suture. Dressing applied. Patient tolerated all procedures well and there were no complications. FINDINGS: Severe left hydronephrosis, fluoroscopic images demonstrated appropriate positioning of nephrostomytube within the collecting system IMPRESSION: Successful image guided placement of left 10 Botswanan percutaneous nephrostomy tube PLAN: Maintained to gravity drainage Follow-up urine culture Routine catheter exchange should be performed in 6-8 weeks pending definitive urologic management Finalized by Den Thompson MD on 05/21/2024 5:07 PM [facility] HospitalRadiology Study observation (narrative)[facility] HospitalGuidance for percutaneous placement of nephrostomy tube of KidneyOrdered By: Den Thompson on 24-55-5204BemWnhapdOhio State East Hospital Work Phone: Hematocrit Auto (Bld) [Volume fraction]on 05-21-2024 Hematocrit (Bld) [Volume fraction]Hematocrit [Volume Fraction] of Blood by Automated count36.0-48.0[facility] Hospital Of ColumbusHemoglobin [Mass/volume] in Bloodon 49-18-3881Gvbojtxxof (Bld) [Mass/Vol]Hemoglobin [Mass/volume] in Blood12.0-16.0[facility] Hospital Of ColumbusIR PERC NEPH TUBE LT + NGRAM + S AND Ion 17-77-8203CA PERC NEPH TUBE LT + NGRAM + [...] was then dilated to accommodate a 10 Botswanan nephrostomy tube. The catheter was secured with a single 0 Prolene suture. Dressing applied. Patient tolerated all procedures well and there were no complications. FINDINGS: Severe left hydronephrosis, fluoroscopic images demonstrated appropriate positioning of nephrostomytube within the collecting system IMPRESSION: Successful image guided placement of left 10 Botswanan percutaneous nephrostomy tube PLAN: Maintained to gravity drainage Follow-up urine culture Routine catheter exchange should be performed in 6-8 weeks pending definitive urologic management Finalized by eDn Thompson MD on 05/21/2024 5:07 PMNormalProMedica Aultman HospitalLaboratory - Chemistry and Chemistry - challengeon 20-38-7973Zbhtmfd [Moles/Vol]4.9 mmol/LCritically high0.4-2.0[facility] Comment on above:RESULTS CALLED TO DR. RIVERABilirubin Ql (U)SMALLAbnormal NEGATIVEChildren'S Hospital Of ColumbusGlucose (U) [Mass/Vol]NegativeNEGATIVE [facility] ColumbusKetones Ql (U)TRACE mg/dLAbnormalNEGATIVE [facility] Hospital Of ColumbuspH (U)5.5 [pH]5.0-9.0P[facility] Community Hospitalpecific gravity (U) [Rel density]1.0251.005-1.025Children'S Hospital Of ColumbusUrobilinogen Qn (U)1.0 {Joon'U}/dL0.2-1.0[facility] ColumbusAlbumin [Mass/Vol]2.4 g/dLLow3.4-5.0[facility] ColumbusALP [Catalytic activity/Vol]390 U/AVyzb95-609SfuirwpjkChildren'S Hospital Of ColumbusALT [Catalytic activity/Vol]93 U/HFfit72-20VykdingtdChildren'S Hospital Of ColumbusAST [Catalytic activity/Vol]190 U/APvcz31-36GalxridvvChildren'S Hospital Of ColumbusBilirubin [Mass/Vol]1.6 mg/dLHigh0.2-1.0[facility] Calcium [Mass/Vol]9.5 mg/dL8.5-10.1FHighland District HospitalChloride [Moles/Vol]98 mmol/A96-564ElzahlthaChildren'S Hospital Of ColumbusCO2 [Moles/Vol]24.3 mmol/L21.0-32.0[facility] ColumbusCreatinine [Mass/Vol]1.50 mg/dL High0.55-1.02[facility] Of ColumbusGFR/1.73 sq M.predicted MDRD (S/P/Bld) [Vol rate/Area]42 mL/min/{1.73_m2}Low>=60 mL/min/1.73m 2FHighland District HospitalGlucose [Mass/Vol]116 mg/iSVugo26-238WhoqtjulsChildren'S Hospital Of ColumbusPotassium [Moles/Vol]2.6 mmol/LCritically low3.5-5.1FHighland District HospitalComment on above:RESULTS CALLED TO SHARRI DEGROOT RN @BY Barb Connors at 0450Protein [Mass/Vol]7.0 g/dL6.4-8.2FMercy Health Clermont Hospitalodium [Moles/Vol]138 mmol/C095-291MktbnfgxhChildren'S Hospital Of ColumbusUrea nitrogen [Mass/Vol]19.0 mg/dLHigh7.0-18.0[facility] ColumbusUrea nitrogen/Creatinine [Mass ratio]12.7 mg/mgChildren'S Hospital Of ColumbusLaboratory - Hematology and Cell countson 91-06-8178Nkgz form neutrophils/100 WBC (Bld)1.0 %0-5FHighland District Hospital Lymphocytes/100 WBC (Bld)12.0 %Low20.5-60.0[facility] Monocytes/100 WBC (Bld)15.0 %High1.7-12.0[facility] Laboratory - Microbiology and Antimicrobial susceptibilityon 05-21-2024 SARS-CoV-2 (COVID-19) RNA VENICE+probe Ql (Unsp spec)NegativeNEGATIVEChildren'S Hospital Of ColumbusComment on above:This test has not been FDA [...] Org specific cx Ql (Vag fld)Not detectedNOT DETECTCleveland Clinic Mercy HospitalLaboratory - Specimen informationon 21-70-6918Vdgyjhzwxx (U)CLOUDYAbnormal CLEARChildren'S Hospital Of ColumbusColor (U)DK. YELLOWYELLOWChildren'S Hospital Of ColumbusLaboratory - Urinalysison 09-37-6524Sphkbjzdd sediment LM Ql (Urine sed)[facility] HospitalLeukocyte esterase Test strip Ql (U)TRACEAbnormalNEGATIVEChildren'S Hospital Of ColumbusMucus Ql (Urine sed) SMALLAbnormalNONE SEENChildren'S Hospital Of ColumbusNitrite Ql (U)Positive AbnormalNEGATIVEChildren'S Hospital Of ColumbusProtein Ql (U)>=300 mg/dL AbnormalNEG/TRACEChildren'S Hospital Of ColumbusLactate (P jannette) [Moles/Vol]on 30-36-3828Pqgnptogvtkyjx and review of laboratory resultsAbnormalProMedica Health SystemProMedica Health SystemLACTATE W/REFLEX2.4 mmol/LHigh0.4-2.0 [facility] HospitalComment on above:Performed By: #### 17008-3 ####[facility] ([id number])[address], [address], [place] [address] Interpretation and review of laboratory resultsAbnormalProClarks Summit State HospitalLACTATE W/REFLEX2.3 mmol/LHigh0.4-2.0ProWadsworth-Rittman HospitalComment on above:Performed By: #### 90215-9 #### [facility] ([id number]) [address], [address] [place], [place] [address]Vgscjku w/ Reflexon 06-54-4035Rorxoro (P jannette) [Moles/Vol]2.4 mmol/LHigh0.4 - 2.0 mmol/LProMedica Health SystemLactate (P jannette) [Moles/Vol]2.3 mmol/LHigh0.4 - 2.0 mmol/LProMedKindred Hospital Lima SystemLeukocytes [#/volume] corrected for nucleated erythrocytes in Blood by Automated counon 65-17-3119SCH corrected for nucl RBC Auto (Bld) [#/Vol]Leukocytes [#/volume] corrected for nucleated erythrocytes in Blood by Automated counLow4.0-11.0[facility] Of ColumbusMAGNESIUMon 18-29-1282Yljanuuut [Mass/Vol]1.1 mg/dLLow1.8-2.6M[facility] Memorial HospitalComhavenwyck hospital on above:Performed By: #### PINR, 28224-0, CMP, 46430-1, 2777-1, CBCA, 18402-1 #### [facility] ([id number]) [address], [address] [place], [place] [address]MVZ Auto (RBC) [Entitic mass]on 36-33-1474YCV (RBC) [Entitic mass]MCH [Entitic mass] by Automated count26.7-34.0[facility] Hospital Of ColumbusMCHC Auto (RBC) [Mass/Vol]on 14-07-5780UYPM (RBC) [Mass/Vol]MCHC [Mass/volume] by Automated count29.9-35.2FHighland District HospitalMCV Auto (RBC) [Entitic vol]on 02-64-0457ZCK (RBC) [Entitic vol]MCV [Entitic volume] by Automated count81.0-99.0[facility] Of ColumbusMagnesiumon 01-19-9232Ajpqafpnx [Mass/Vol]1.1 mg/dLLow1.8 - 2.6 mg/dLTriHealth [facility] Myelocytes/100 WBC Manual cnt (Bld)on 10-05-3349Xovmfylsdt/100 WBC (Bld) Myelocytes/100 leukocytes in Blood by Manual countChildren'S Hospital Of ColumbusNo Panel Informationon 23-50-9725Qguqrmobeakcnr and review of laboratory resultsAbnormalTriHealth [facility] HospitalProWilson HealthProWilson HealthTroponin I High Nrenhnnhjlj0997.5 pg/mLCritically high4.0-51.3FHighland District HospitalComment on above:RESULTS CALLED TO Demetria Starks RNCUT-OFF POINTS HAVE BEEN ESTABLISHED BASED ON THE FOURTHUNIVERSAL DEFINITION OF MYOCARDIAL INFARCTION. THE UPPERREFERENCE LIMIT (URL) OF TROPONIN, DEFINED THE 99THPERCENTILE OF cTnI DISTRIBUTION IN A REFERENCE POPULATION,HAS BEEN CONFIRMED THE DECISIONTHRESHOLD FOR MIDIAGNOSIS.99TH PERCENTILE = 51.4 PG/MLNOTE: HIGH-SENSITIVITY TROPONIN ASSAY IS NOT INTENDED TO BEUSED IN ISOLATION BUT SHOULD BE INTERPRETED IN CONJUNCTIONWITH OTHER DIAGNOSTIC AND CLINICAL INFORMATION.Miscellaneous Test CommentSee comment [facility] Hospital Of ColumbusComment on above:Specimen Source: UCATH - Urine Catheterized - Urine Cath - 200.300Urine BacteriaMODERATE #/HPFAbnormalNONE [facility] Medical CenterUrine Culture Result 1\R\ Urine Culture, RoutineChildren'S Hospital Of ColumbusUrine Microscopic ReviewYEOhioHealth Dublin Methodist HospitalUrine Occult BloodLARGEAbnormalNEGATIVEChildren'S Hospital Of ColumbusUrine Other CastsSEEN #/LPFAbnormalNONE [facility] Medical CenterUrine Other CrystalsSeen #/HPFAbnormalNone [facility] Medical CenterUrine KWJ26-59 #/HPFAbnormal0-2FHighland District Hospital Urine Squamous Epithelial CellsMODERATE #/LPFAbnormalNONE/RAREChildren'S Hospital Of ColumbusUrine MYJ62-54 #/HPFAbnormalNONE SEENChildren'S Hospital Of ColumbusAbsolute Basophils (Manual)0.00 10 3/uL0.00-0.10Children[facility] Of ColumbusBand Neutrophils # (Manual)0.0 10 3/uL0.0-0.3FHighland District HospitalEosinophils # (Manual)0.01 10 3/uL0.00-0.70[facility] Hospital Of ColumbusLymphocytes # (Manual)0.20 10 3/uLLow1.20-3.80[facility] ColumbusMonocytes # (Manual)0.25 10 3/uLLow0.30-0.80[facility] ColumbusMyelocytes # (Manual)0.03[facility] ColumbusReactive Lymphocytes0.06Children[facility] Of ColumbusReactive Lymphocytes4.0 % [facility] Hospitalegmented Neutrophils # (Manual)1.10 10 3/uLLow 1.4-6.5FHighland District HospitalBedside Influenza Type A AntigenNegative [facility] Of ColumbusComment on above:Negative for Flu A protein antigen. Infection due to Flu Acannot be ruled out. Flu A antigen in thesample may bebelow the detection limit of the test.Bedside Influenza Type B Antigen NegativeChildren'S Hospital Of ColumbusComment on above:Negative for Flu B protein antigen. Infection due to Flu Bcannot be ruled out. Flu B antigen in the sample may bebelow the detection limit of the test.A.calcoaceticus-baumannii cmplx PCRNot detectedNOT [facility] HospitalBacteroides fragilis (PCR)Not detectedNOT [facility] HospitalBlood Culture SourceBloodChildren'S Hospital Of ColumbusCandida albicans (PCR)Not detectedNOT DETECTCleveland Clinic Mercy HospitalCandida auris (PCR)Not detectedNOT DETECTCleveland Clinic Mercy HospitalCandida glabrata (PCR)Not detectedNOT [facility] HospitalCandida krusei (PCR)Not detectedNOT DETECTCleveland Clinic Mercy HospitalCandida parapsilosis (PCR) Not detectedNOT DETECTCleveland Clinic Mercy HospitalCandida tropicalis (PCR) Not detectedNOT [facility] HospitalCrypto neoformans/gattii (PCR)(LAB)Not detectedNOT [facility] HospitalCTX-M ESBL (PCR)Not detectedNOT [facility] HospitalEnterobacter cloacae complex (PCR)Not detectedNOT [facility] Enterobacterales (PCR)DetectedNOT [facility] Comment on above:RESULTS CALLED TO FRANKY MACHADO,PAEnterococcus faecalis PCR Not detectedNOT [facility] HospitalEnterococcus faecium PCR Not detectedNOT [facility] HospitalEscherichia coli Result DetectedNOT [facility] HospitalComment on above:RESULTS CALLED TO FRANKY MACHADO,PAHaemophilus influenzae DNANot detectedNOT [facility] AkronIMP (blaIMP) Carbap Res Gene (PCR)Not detected NOT [facility] HospitalKlebsiella aerogenes (PCR)Not detectedNOT [facility] HospitalKlebsiella oxytoca (PCR)Not detectedNOT [facility] HospitalKlebsiella pneumoniae group (PCR)Not detectedNOT [facility] HospitalKPC (blaKPC) Detection (PCR)Not detectedNOT [facility] HospitalListeria monocytogenes (PCR)Not detectedNOT [facility] HospitalMCR-1 Resistance GeneNot detectedNOT [facility] HospitalmecA/C & MREJ Antimicrob Resist GenNOT APPLICABLENOT [facility] HospitalmecA-Methicillin Resistance GeneNOT APPLICABLENOT [facility] HospitalNDM (blaNDM) Detection (PCR)Not detectedNOT [facility] AkronNeisseria meningitidis (PCR)Not detectedNOT [facility] HospitalProteus species (PCR)Not detectedNOT [facility] HospitalPseudomonas aeruginosa (PCR)Not detected NOT DETECTAvita Health System Galion Hospitalalmonella spp. (PCR)Not detectedNOT St. Francis Hospitalerratia marcescens (PCR)Not detected NOT DETECTAvita Health System Galion Hospitaltaphylococcus aureus (PCR)(LAB)Not detectedNOT St. [facility] Hospitaltaphylococcus epidermidis (PCR)Not detectedNOT [facility]. [facility] Hospitaltaphylococcus lugdunensis (TEM-PCRNot detectedNOT [facility] Staphylococcus species (PCR)Not detectedNOT [facility]. [facility] Hospitaltenotroph. maltophilia (PCR)Not detectedNOT [facility]. [facility] Hospitaltreptococcus pneumoniae (PCR)Not detectedNOT [facility]. [facility] Hospitaltreptococcus pyogenes (PCR)(LAB)Not detectedNOT DETECTE [facility] Hospitaltreptococcus species (PCR)Not detectedNOT St. Francis Hospitalyn OXA-48-like Carb Res Gene (PCR)Not detectedNOT [facility] HospitalVanA/B-Vancomycin Resistance GenesNOT APPLICABLENOT [facility] HospitalVIM (blaVIM) Carbap Res Gene (PCR)Not detectedNOT [facility] HospitalNo Panel InformationOrdered By: FABIEN RIVERA on 23-37-8619Myouuyrl Identification OnlyChildren'S Hospital Of ColumbusNo Panel InformationOrdered By: Senia Marker on 36-99-1439Vbypdcei Identification [facility] AkronPHOSPHORUSon 52-80-4046Tfqbqqejr [Mass/Vol]2.8 mg/dLNormal2.4-4.9 [facility] HospitalComment on above:Performed By: #### PINAbby, 93195-9, CMP, , 2776-, CBCA, 46167-7 #### [facility] ([id number]) [address] [place], [place] [address]MYPGZDYZFau 30-58-1088Iufldsuom [Moles/Vol]3.8 mmol/LNormal 3.5-5.0Pro[facility] HospitalComment on above:Performed By: #### 2823-3 ####[facility] ([id number])[address], [place] [address]MVVFEDO AND INRon 55-63-6299ORY Coag (PPP) [Relative time]1.2 {INR}High 0.8-1.1ProMed[facility] HospitalComment on above:Performed By: #### PINR, 37766- 9, CMP, 25105-5, 2777-1, CBCA, 38011-5 #### [facility] ([id number]) [address], [address] [place], [place] [address]YR Coag (PPP) [Time]14.1 sHigh9.8-13.2PGreen Cross Hospital Comment on above:Performed By: #### PINR, 74516-2, CMP, 14678-4, 2777-1, CBCA, 65201-1 #### [facility] ([id number]) [address], [address] [place], [place] [address]Okiiaibczjvz 83-45-5172Gfamzmmnf [Mass/Vol]2.8 mg/dL2.4 - 4.9 mg/dLTriHealth McCullough-Hyde Memorial HospitalPlatelet mean volume Auto (Bld) [Entitic vol]on 10-17-8858Buyojust mean volume (Bld) [Entitic vol]Platelet mean volume [Entitic volume] in Blood by Automated countLow9.5-13.5FHighland District Hospital Platelets Auto (Bld) [#/Vol]on 23-53-9934Dtfiuzjyc (Bld) [#/Vol]Platelets [#/volume] in Blood by Automated mcihiFsf111-756LfpvcrvycChildren'S Hospital Of ColumbusPotassiumon 75-43-9083Jlarkerzv [Moles/Vol]3.8 mmol/L3.5 - 5.0 mmol/L [facility] SystemPotassium [Moles/Vol]on 93-37-8883RsxRpbsaeOhio State East Hospital Procalcitoninon 06-96-3521Snqasfmrhpshm [place] [Mass/Vol]463.36 ng/mLHighNINF - 0.05 ng/mLTriHealth McCullough-Hyde Memorial HospitalComment on above:NOTE <0.50 ng/mL - Low risk of severe sepsis and/or septic shock. <2.00 ng/mL - Recommend retesting within 6-24 hours. >2.00 ng/mL - High risk of sepsis and/or septic shock. Procalcitonin IA [Mass/Vol]on 81-63-0156Wmugajqcosbqvi and review of laboratory resultsAbnormalProFayette County Memorial Hospital SystemProFayette County [facility] Hospital TnnrcpZLJOSTFVYQZEV583.36 ng/mLHigh<0.05[facility] HospitalComment on above:Result Comment: NOTE <0.50 ng/mL - Low risk of severe sepsis and/or septic shock. <2.00 ng/mL - Recommend retesting within 6-24 hours. >2.00 ng/mL - High risk of sepsis and/or septic shock.Performed By: #### PINR, 49590-1, CMP, 36118-1, 2777-1, CBCA, 57586-9 #### [facility] ([id number]) [address] [place], [place] [address]Yervoae & INRon 73-05-4956NFZ Coag (PPP) [Relative time]1.2 {INR}HighUniversity Hospitals Parma Medical Center SystemInterpretation and review of laboratory results AbnormalTriHealth McCullough-Hyde Memorial HospitalPT Coag (PPP) [Time]14.1 [facility] Hospital - HarrisburgRBC Auto (Bld) [#/Vol]on 85-94-3129OWP (Bld) [#/Vol]Erythrocytes [#/volume] in Blood by Automated count4.20-5.40[facility] Segmented neutrophils/100 WBC Manual cnt (Bld)on 06-17-7928Wffggkxap neutrophils/100 WBC (Bld)Manual blood segmented neutrophils/100 leukocytes 43.0-75.0[facility] Hospitalerum or plasma albumin/globulin mass ratioon 47-43-0064Ypxekzm/Globulin [Mass ratio]Serum or plasma albumin/globulin mass ratioPike Community Hospitalerum or plasma anion gap determinationon 62-29-8359Gcklg gap [Moles/Vol]Serum or plasma anion gap determinationChildren'S Hospital Of ColumbusURINALYSISon 07-92-1932Drkrinikp Ql (U)NegativeNormalNEGProUniversity Hospitals Portage Medical Centerca Aultman HospitalComment on above:Performed By: #### UA ####[facility] ([id number])[address], [place] [address]STKWQ/HGBMODERATEAbnormalNEGProUniversity Hospitals Portage Medical Centerca Aultman HospitalComment on above:Performed By: #### UA ####[facility] ([id number])[address], [address] [address]Deywp (U)BROWNAbnormalYELLOWProMedica Ashraf HospitalComment on above:Performed By: #### UA ####[facility] ([id number])[address] [address]Iopkukc Ql (U)Negative NormalNEGProMedica Ashraf HospitalComment on above:Performed By: #### UA ####[facility] ([id number])[address], [address] [address]Lynpgea Ql (U)NegativeNormalNEGProMedica Ashraf HospitalComment on above: Performed By: #### UA ####[facility] ([id number])[address], [address]T[facility],[place] [address]Lyncuobjd esterase Test strip Ql (U)Large AbnormalNEGProMedica Ashraf HospitalComment on above:Performed By: #### UA ####[facility] ([id number])[address], [address]TOOHIO[facility],[place] [address]Jeyhxeg Ql (U)NegativeNormalNEGProMedica Ashraf HospitalComment on above: Performed By: #### UA ####[facility] ([id number])[address], [address] [address]cD (U)7.0 [pH]Normal5.0-8.5ProMedica Ashraf HospitalComment on above:Performed By: #### UA ####[facility] ([id number])[address], [address] [address]Kupyjhp Ql (U)300 mg/dL AbnormalNEGProMedica Ashraf HospitalComment on above:Performed By: #### UA ####[facility] ([id number])[address], [address] [address]S.B.CELLS>811Kjyg7-4IjpCitmht Ashraf HospitalComment on above:Performed By: #### UA ####[facility] ([id number])[address] [place] [address]Yahgelwg gravity (U) [Rel density]1.689Lrahgr1.003-1.035 [facility] HospitalComment on above:Performed By: #### UA ####[facility] ([id number])[address] [place] [address] TURBIDITYCLOUDYAbnormalCLEARProMedica Cuba HospitalComment on above:Performed By: #### UA ####[facility] ([id number])[address] [address]Iatpctcneq dipstick W Reflex Microscopic panel (U)URINE RECEIVED WITHOUT PRESERVATIVE-DELAYS IN TRANSPORT MAY AFFECT RESULTS.INTERPRET WITH CAUTION AND CLINICAL CORRELATION IS RECOMMENDED.NormalProMedica Cuba HospitalComment on above:Performed By: #### UA ####[facility] ([id number])[address] [address]Jenbvtmhrxak (U) [Mass/Vol] mg/dLNormal<1.1PWayne HealthCare Main Campus HospitalComment on above:Performed By: #### UA ####[facility] ([id number])[address] [place] [address]V.B.CELLS>739Itvw0-4TirCgxogh [place] HospitalComment on above:Performed By: #### UA ####[facility] ([id number])[address] [address] [place] [address]SAG CLUMPSMANYAbnormalNONEPWayne HealthCare Main Campus HospitalComment on above:Performed By: #### UA ####[facility] ([id number])[address] [address]SACGO CULTUREon 87-93-5868Yvakcixe identified Cx Nom (U)CULTURE RESULTS <10,000 ORGANISMS/ML NORMAL URO GENITAL FLORANoKettering Health Dayton Comment on above:Performed By: #### PINR, 03070-2, CMP, 54474-3, 2777-1, CBCA, 07868-6 #### [facility] ([id number]) [address] [place], [place] [address]Wgvqkibdiawd 41-54-0720Kdrgfrpea Ql (U)NegativeNegative^Negative [facility] Systemedica Health SystemColor (U)BROWNAbnormalYELLOW^YELLOWUniversity Hospitals Parma Medical Center SystemGlucose (U) [Mass/Vol]NegativeNegative^Negative mg/dLTriHealth McCullough-Hyde Memorial HospitalHemoglobin Auto test strip Ql (U)MODERATEAbnormalNegative^Negative [facility] Hospitala Health SystemInterpretation and review of laboratory resultsAbnormal ProMnorth alabama medical center Health SystemKetones (U) [Mass/Vol]NegativeNegative^Negative mg/dL [facility] [facility] SystemLeukocyte clumps LM Ql (Urine sed)MANYAbnormalNONE^NONE [facility] SystemLeukocyte esterase Auto test strip Ql (U)LargeAbnormal Negative^NegativeProMedica Fostoria Community Hospital Health SystemNitrite Auto test strip Ql (U)Negative Negative^NegativeUniversity [facility] SystempH (U)7 [pH]5.0 - 8.5PSlidell [facility] Health SystemProtein (U) [Mass/Vol]300 mg/dLAbnormalNegative^NegativeUniversity [facility] SystemRBC Auto (Urine sed) [#/Area][facility] SystemSpecific gravity Refractometry automated (U) [Rel density]1.0351.003 - 1.035[facility] SystemTurbidity Ql (U)CLOUDYAbnormalCLEAR^CLEARUniversity Hospitals Parma Medical Center SystemUrinalysis microscopic panel Auto (Urine sed) [#/Area]URINE RECEIVED WITHOUT PRESERVATIVE- DELAYS IN TRANSPORT MAY AFFECT RESULTS.INTERPRET WITH CAUTION AND CLINICAL CORRELATION IS RECOMMENDED.ProMnoland hospital annistona Health SystemUrobilinogen Qn (U)NINF [facility] SystemWBC Auto (Urine sed) [#/Area][facility] System ProMRice Memorial Hospital SystemXR CHEST 1 VWon [id number] CHEST 1 VWXR CHEST 1 VW Single view chest XR CHEST 1 VW History: central venous line placement verification Comparison: May 21 at 4:24 AM current examination 2:20 PM Impression: * No consolidation or pleural fluid. No acute findings. * Central line placed at the superior vena cava. Poor inspiration without acute disease. No pneumothorax. Finalized by Jorge Mcdaniels MD on 05/21/2024 2:30 PMNormalMarietta Memorial HospitalXR Chest Single viewon [id number] view chest XR CHEST 1 VW History: central venous line placement verification Comparison: May 21 at 4:24 AM current examination 2:20 PM Impression: * No consolidation or pleural fluid. No acute findings. * Central line placed at the superior vena cava. Poor inspiration without acute disease. No pneumothorax. Finalized by Jorge Mcdaniels MD on 05/21/2024 2:30 PMSECTRAPAJorge Sequeira MD - 05/21/2024 Single view chest XR CHEST 1 VW History: central venous line placement verification Comparison: May 21 at 4:24 AM current examination 2:20 PM Impression: * No consolidation or pleural fluid. No acute findings. * Central line placed at the superior vena cava. Poor inspiration without acute disease. No pneumothorax. Finalized by Jorge Mcdaniels MD on 05/21/2024 2:30 PM [facility] HospitalRadiology Study observation (narrative)[facility] HospitalXR Chest Single viewOrdered By: Jorge Mcdaniels on 69-20-7659DukWntxznOhio State East Hospital Work Phone: aPTT Coag (PPP) [Time]on 36-30-6692hLAP Coag (Bld) [Time]29 jXqnoez51-31DyxQonwmeMarietta Memorial HospitalComment on above:Performed By: #### PINR, 10524-7, CMP, 34932-5, 2777-1, CBCA, 53616-9 #### [facility] ([id number]) [address], [address] [place], [place] [address]Frhinfooi virus B Ag [Presence] in Upper respiratory specimen by Rapid immunoassayon [id number] Ag IA.rapid Ql (Nph)PositiveChildren'S Hospital Of ColumbusNo Panel Informationon [id number] Type A (Rapid) NegativeChildren'S Hospital Of ColumbusPOC SARS CoV-2 AntigenNegativeChildren'S Hospital Of ColumbusXR KUB 1 VIEWon [id number] KUB 1 VIEWEXAMINATION: XR KUB 1 VIEW [...] Electronically authenticated by: TOM NEAL Date: 2022-08-09 08:52NoalThGrand Lake Joint Township District Memorial Hospital CBC AUTO DIFFon [id number] #0.0 103/ulNormal 0.0-0.1City HospitalComment on above:Performed By: #### HFPFCBC #### [facility] [address] [address] [address] Caitlin Pulidosophils/100 WBC (Bld)0.4 %Normal0.2-2.0[facility] Comment on above:Performed By: #### HFPFCBC #### [facility] [address] [address] [address] Caitlin Pritchard #0.2 103/ulNormal0.0-0.7The [facility] HospitalComment on above: Performed By: #### HFPFCBC #### [facility] [address] [address] [address] Caitlin Harmanosinophils/100 WBC (Bld)2.5 %Normal0.9-7.0The [facility] Comment on above:Performed By: #### HFPFCBC #### [facility] [address] [address] [address] Caitlin Harmanrythrocyte distribution width (RBC) [Ratio]13.5 %Sxwkxq40.0-15.0 [facility] HospitalComment on above:Performed By: #### HFPFCBC #### [facility] [address] [place] [address] Dr. Caitlin Esparzaatocrit (Bld) [Volume fraction]41.9 %Iipjxn72.0-48.0The [facility] HospitalComment on above:Performed By: #### ARLENEFCBC #### [facility] [address] [place] [address] Dr. Caitlin WinstonHemoglobin (Bld) [Mass/Vol]13.7 g/dTFjmxii01.0-16.0The [facility] HospitalComment on above:Performed By: #### ARLENEFCBC #### [facility] [address] [place] [address] Dr. Caitlin Carson #0.01 10e3/ulNormal0.00-0.03The [facility] HospitalComment on above:Performed By: #### MAAMEBC #### [facility] [address] [place] [address] Dr. Caitlin Carson %0.1 %Normal0.0-0.5The [facility] HospitalComment on above: Performed By: #### ARLENEFCBC #### [facility] [address] [place] [address] Dr. Caitlin Torres #3.2 103/ulNormal1.2-3.8The [facility] HospitalComment on above:Performed By: #### ARLENEFCBC #### [facility] [address] [place] [address] Dr. Caitlin Richeyhocytes/100 WBC (Bld)42.0 %Ccvvcm81.5-60.0The [facility] HospitalComment on above:Performed By: #### HFPFCBC #### [facility] [address] [place] [address] Dr. Caitlin Rowell (RBC) [Entitic mass]29.4 umDirmba63.7-34.0The [facility] HospitalComment on above:Performed By: #### MAAMEBC #### [facility] [address] [address] [address] Caitlin IngramHC (RBC) [Mass/Vol]32.7 g/hSGwynia63.9-35.2The [facility] HospitalComment on above:Performed By: #### HFPFCBC #### [facility] [address] [place] [address] Dr. Caitlin IngramV (RBC) [Entitic vol]89.9 dHWykfum19.0-99.0The [facility] HospitalComment on above:Performed By: #### HFPFCBC #### [facility] [address] [place] [address] Dr. Caitlin Salas #0.5 103/ulNormal0.3-0.8The [facility] HospitalComment on above:Performed By: #### HFPFCBC #### [facility] [address] [place] [address] Dr. Caitlin Kempocytes/100 WBC (Bld)7.1 %Normal1.7-12.0The [facility] Comment on above:Performed By: #### HFPFCBC #### [facility] [address] [place] [address] Dr. Caitlin Abraham #3.6 103/ulNormal1.4-6.5The [facility] HospitalComment on above:Performed By: #### HFPFCBC #### [facility] [address] [place] [address] Dr. Caitlin Kennyutrophils/100 WBC (Bld)47.9 %Tayoar49.0-75.0The [facility] HospitalComment on above:Performed By: #### HFPFCBC #### [facility] [address] [place] [address] Dr. Caitlin Schultzlet mean volume (Bld) [Entitic vol]9.2 fLCritically low 9.5-13.5The [facility] HospitalComment on above:Performed By: #### HFPFCBC #### [facility] [address] [place] [address] Dr. Caitlin WinstonPLT203 103/ljJecahq604-567Ljc Sacha HospitalComment on above: Performed By: #### HFPFCBC #### [facility] [address] [place] [address] Dr. Caitlin WinstonRBC4.66 106/ulNormal4.20-5.40The [facility] on above:Performed By: #### HFPFCBC #### [facility] [address] [place] [address] Dr. Caitlin WinstonWBC7.6 103/ulNormal4.0-11.0The [facility] on above: Performed By: #### HFPFCBC #### [facility] [address] [place] [address] Dr. Caitlin BelleFAIR PROFILEon 37-09-0833Mgltsrz [Mass/Vol]3.6 g/dLNormal 3.4-5.0The [facility] on above:Performed By: #### HFPF #### [facility] [address] [place] [address] Dr. Caitlin WinstonAlbumin/Globulin [Mass ratio]0.9 {ratio}NormalThe [facility] HospitalComhavenwyck hospital on above:Performed By: #### HFPF #### [facility] [address] [place] [address] Dr. Caitlin Robles [Catalytic activity/Vol]87 U/GFbhtkp49-936Lxm [facility] on above:Performed By: #### HFPF #### [facility] [address] [place] [address] Dr. Caitlin Dacosta [Catalytic activity/Vol]20 U/EPcsmxz36-75Eri [facility] on above:Performed By: #### HFPF #### [facility] [address] [place] [address] Dr. Caitlin Melchor [Catalytic activity/Vol]15 U/NJdojfi45-79Urx [facility] on above:Performed By: #### HFPF #### [facility] [address] [place] [address] Dr. Caitlin WinstonBilirubin [Mass/Vol]0.4 mg/dLNormal0.2-1.0[facility] Comment on above:Performed By: #### HFPF #### [facility] [address] [address] [address] Caitlin WinstonCalcium [Mass/Vol]8.7 mg/dLNormal8.5-10.1[facility] Comment on above:Performed By: #### HFPF #### [facility] [address] [address] [address] Caitlin WinstonChloride [Moles/Vol]102 mmol/XRvxsoq16-748Zqx [facility] Comment on above:Performed By: #### HFPF #### [facility] [address] [address] [address] Caitlin WinstonCHOL-HDL RATIO NORMSCincinnati Children's Hospital Medical CenterComment on above:Result Comment: 3.3 - 4.4 LOW RISK 4.4 - 7.1 AVERAGE RISK 7.1 - 11.0 MODERATE RISK >11.0 HIGH RISKPerformed By: #### HFPF #### [facility] [address] [place] [address] Dr. Caitlin Alexanderesterol [Mass/Vol]180 mg/dLNormal<=200[facility] Comment on above:Performed By: #### HFPF #### [facility] [address] [address] [address] Caitlin WinstonCholesterol in HDL [Mass/Vol]57 mg/eHBunrlt32-70VnkCity HospitalComment on above:Performed By: #### HFPF #### [facility] [address] [address] [address] Caitlin WinstonCholesterol in LDL [Mass/Vol]107.8 mg/dLProMedica Fostoria Community HospitalComment on above:Performed By: #### HFPF #### [facility] [address] [place] [address] Dr. Caitlin Alexanderesterrafy.total/Cholesterol in HDL [Mass ratio]3.2 {ratio} NormalCity HospitalComment on above:Performed By: #### HFPF #### [facility] [address] [address] [address] Caitlin WinstonCO2 [Moles/Vol]28.3 mmol/XXrkzbb75.0-32.0[facility] Comment on above:Performed By: #### HFPF #### [facility] [address] [address] [address] Caitlin WinstonCreatinine [Mass/Vol]0.63 mg/dLNormal0.55-1.02City HospitalComment on above:Performed By: #### HFPF #### [facility] [address] [place] [address] Dr. Caitlin WinstonGlobulin (S) [Mass/Vol]3.8 g/dLProMedica Fostoria Community HospitalComment on above:Performed By: #### HFPF #### [facility] [address] [place] [address] Dr. Caitlin WinstonGlucose [Mass/Vol]96 mg/qGWxvmoi09-668CwdCity Hospital Comment on above:Performed By: #### HFPF #### [facility] [address] [place] [address] Dr. Caitlin WinstonHDL NORMAL> or = 60 mg/dl - LOW CARDIOVASCULAR RISK <40 mg/dl - HIGH CARDIOVASCULAR RISKProMedica Fostoria Community HospitalComment on above:Performed By: #### HFPF #### [facility] [address] [place] [address] Dr. Caitlin WinstonLDL CALC NORMALSEE BELOWProMedica Fostoria Community HospitalComment on above:Result Comment: <100 mg/dl OPTIMAL 100 - 129 mg/dl NEAR OR ABOVE OPTIMAL 130 - 159 mg/dl BORDERLINE HIGH 160 - 189 mg/dl HIGH >190 mg/dl VERY HIGH Performed By: #### HFPF #### [facility] [address] [place] [address] Dr. Caitlin WinstonPotassium [Moles/Vol]3.9 mmol/LNormal3.5-5.1[facility] Comment on above:Performed By: #### HFPF #### [facility] [address] [place] [address] Dr. Caitlin WinstonProtein [Mass/Vol]7.4 g/dLNormal6.4-8.2The [facility] Comment on above:Performed By: #### HFPF #### [facility] [address] [place] [address] Dr. Caitlin WinstonSodium [Moles/Vol]139 mmol/QCgrwep898-057Aht [facility] Comment on above:Performed By: #### HFPF #### [facility] [address] [place] [address] Dr. Caitlin WinstonTriglyceride [Mass/Vol]76 mg/dLNormal<=150The [facility] Comment on above:Performed By: #### HFPF #### [facility] [address] [place] [address] Dr. Caitlin WinstonTSH2.462 uIU/mLNormal0.358-3.740City HospitalComment on above:Performed By: #### HFPF #### [facility] [address] [place] [address] Dr. Caitlin WinstonUrea nitrogen [Mass/Vol]23.0 mg/dLCritically high7.0-18.0The [facility] HospitalComment on above:Performed By: #### HFPF #### [facility] [address] [place] [address] Dr. Caitlin WinstonUrea nitrogen/Creatinine [Mass ratio]36.5 mg/mgNoOhioHealth Berger HospitalComment on above:Performed By: #### HFPF #### [facility] [address] [place] [address] Dr. Caitlin WinstonVLDL CALC15.2 mg/dLNoOhioHealth Berger HospitalComment on above: Performed By: #### HFPF #### [facility] [address] [place] [address] Dr. Caitlin WinstonOperative Reporton [id number] ReportMR#: [id number] [facility] Pt. Name: Sharri Murillo Room #: [...] diameter, was closed by 1-0 PDS interrupted hfkkan-rz-rqszc sutures. Without significant tension. The inferior fascial defect is 5 cm in diameter. Which was closed by 1-0 PDS interrupted pmrfps-gv-bgsfn sutures without tension. Subcutaneous wound was irrigated [...] Pagan M.D. Date Trans: 02/25/2021 01:27 P/ OMID_JN:[id number] Children's Hospital Medical CenterPO GLUCOSE LAB on 93-80-9536Gvzdnpu [Mass/Vol]90 mg/dEPcxulf57-391Qkt [facility] HospitalComment on above:Performed By: #### [id number] #### [facility] [address] [place] [address], USACT ABDOMEN AND PELVIS W ORAL CONTRASTon [id number] ABDOMEN AND PELVIS W ORAL CONTRASTUnAultman Hospital Department of Radiology [address] [place] [id number] Patient Name: SHARRI MURILLO : 1955 Sex: F Age: Race: White Pt. Location: Patient Status: D Ordered Date: 01/05/2021 9:35:00 AM Completed Date: 01/14/2021 08:25 AM Requesting Provider: SIDNEY PAGAN Attending Provider: SIDNEY PAGAN Report Copy To: OLMAN SHOEMAKER Signs & Symptoms: K43.9 Ventral hernia without obstruction or gangrene I10 History: Saritha [phone] patient will need to come early to drink [employer] auth [id number] valid 01/07/2021-02/21/2021 per arlette [id number] *kw Comments: Exam: CT ABDOMEN AND PELVIS [...] cholecystectomy. Electronically signed: Jill Melvin. Transcribed by: [email or web address], User Resident: Electronically Signed by: JILL MELVIN @ 01/15/2021 08:38 AMNormalThe [facility] Vital Signs Date TimeVital SignValuePerforming CldbeswbqBfvoofip25-69-7989 10:09-0400Body qanhst041.18 cmOlman Shoemaker MD Work Phone: [phone]10-28-2025 10:09-0400 Body mass index (BMI) [Ratio]49.6 kg/z1BwamabOlman Shoemaker MD Work Phone: [facility]10-28-2025 10:09-0400 Body ecqkfs836.78 kgOlman Shoemaker MD Work Phone: [phone]10-28-2025 10:09-0400 Diastolic blood mrcphokj64 mm[Hg]Olman Shoemaker MD Work Phone: [phone] [place], [place] [address]10-28-2025 10:09-0400 Heart rate73 /minOlman Shoemaker MD Work Phone: [phone]10-28-2025 10:09-0400 Systolic blood vbuvyhpc508 mm[Hg]Olman Shoemaker MD Work Phone: [phone]07-16-2025 12:14-0400 Body uwmrzi692.2 cmAleksandra Sandoval MD Work Phone: [facility]07-16-2025 12:14-0400Body mass index (BMI) [Ratio]49.18 kg/l4QwkegecAleksandra Sandoval MD Work Phone: [facility]07-16-2025 12:14-0400Body umyhte121.43 kgAleksandra Sandoval MD Work Phone: [facility] [employer] Mulzvj23-24-8715 12:14-0400Diastolic blood djixzjhn95 mm[Hg]Aleksandra Sandoval MD Work Phone: [facility] [employer] [facility] SystemComment on above:Pt. states they had a difficult drive to this office.02-05-2025 12:14-0400Heart rate73 /min Aleksandra Sandoval MD Work Phone: [facility] [employer] Mxainc81-10-6256 12:14-0400Systolic blood yvjtpcjv367 mm[Hg]Aleksandra Sandoval MD Work Phone: [facility] Memorial HospitalComment on above:Pt. states they had a difficult drive to this office.12-31-2024 13:52-0400Body agnhow568.2 cmAleksandra Sandoval MD Work Phone: [facility]06-10-2025 13:52-0400Body mass index (BMI) [Ratio]49.18 kg/r0XtaavqeAleksandra Sandoval MD Work Phone: [facility]06-10-2025 13:52-0400Body .43 kgAleksandra Sandoval MD Work Phone: [facility] [employer] Tcqevk32-90-2825 10:57-0400Body .2 cmLoc PIKE Work Phone: [facility]04-30-2025 10:57-0400Body mass index (BMI) [Ratio]49.18 kg/c3OumeowkyLoc PIKE Work Phone: [facility] [employer] Fuvsod34-14-8575 10:57-0400Body .43 kgLoc PIKE Work Phone: [facility] [employer] Yomupp63-47-1097 10:57-0400Diastolic blood xtesioom25 mm[Hg]Loc PIKE Work Phone: [facility] [employer] Kxczgs54-63-3968 10:57-0400Heart rate 69 /minLoc PIKE Work Phone: [facility]04-30-2025 10:57-0400Systolic blood yxithwpo348 mm[Hg]Loc PIKE Work Phone: [facility]01-24-2025 13:51-0500Body ikiipz420.18 cmChildren'S Hospital Of [facility]01-24-2025 13:51-0500Body mass index (BMI) [Ratio]48.9 kg/y7DzftoackgChildren'S Hospital Of Columbus01-24-2025 13:51-0500Body qexlwt381.52 kgChildren'S Hospital Of Columbus01-24-2025 13:51-0500Diastolic blood qjsmnbyt59 mm[Hg][facility] 08-16-2024 13:51-0500Heart rate89 /minChildren'S Hospital Of [facility] 08-16-2024 13:51-0500Systolic blood kzjywizo681 mm[Hg][facility]12-31-2024 11:08-0500Diastolic blood mm[Hg][facility] [address] [place], [place] [address]12-31-2024 11:08-0500Systolic blood ywawhxce407 mm[Hg][facility] [address] [place], [place] [address]-31-2024 11:00-0500Body amqmuupjcpe63.7 [degF][address]12-31-2024 11:00-0500Heart rate70 /minMetro [address] [place], [place] [address]12-31-2024 11:00-0500Respiratory rate20 /minMetro [address] [place], [place] [address]12-31-2024 11:00-5941DuM3% (BldA) [Mass fraction]96 %[address]12-31-2024 10:45-0500Body knidfu430.[address]12-31-2024 10:45-0500Body mass index (BMI) [Ratio]49.31 kg/q9Scljp[address]12-31-2024 10:45-0500Body lfcwcy030.[address]11-07-2024 14:26-0500Body mass index (BMI) [Ratio]48.6 kg/m2 [facility]11-07-2024 14:26-0500Body .06 kg [facility]11-07-2024 14:26-0500Diastolic blood mm[Hg][facility]11-07-2024 14:26-0500Heart rate99 /min [facility]11-07-2024 14:26-0500Systolic blood csqicvkh508 mm[Hg][facility]11-07-2024 09:12-0500Body .18 cmChildren'S Hospital Of [facility]11-03-2024 13:00-0500Heart rate82 /Emiliano Iqbal MD Work Phone: [phone] [place], [place] [address]11-03-2024 13:00-0500 Respiratory rate18 /Emiliano Iqbal MD Work Phone: [phone] [place], [place] [address]11-03-2024 13:00-2226RrN0% (BldA) [Mass fraction]96 %Tabby Iqbal MD Work Phone: [phone]11-03-2024 11:15-0500Diastolic blood ejcvfnnc65 mm[Hg]Tabby Iqbal MD Work Phone: [phone]11-03-2024 11:15-0500Systolic blood pzgiarzw261 mm[Hg]Tabby Iqbal MD Work Phone: [phone]11-03-2024 07:45-0500Body kwdkfllmpoa08.9 [degF]Tabby Iqbal MD Work Phone: [phone]11-03-2024 05:00-0500Body mass index (BMI) [Ratio]49.24 kg/i4BchovTabby Iqbal MD Work Phone: [phone]11-03-2024 05:00-0500Body giaqbf465.9 kgTabby Iqbal MD Work Phone: [phone] [place], [place] [address]10-29-2024 18:06-0400Body lhpefk860.7 cmPnora Iqbal MD Work Phone: [phone]10-24-2024 10:44-0400Body loewju311.18 cmChildren'S Hospital [facility]10-24-2024 10:35-0400Body mass index (BMI) [Ratio]51 kg/v6StnjzgfajChildren'S Hospital Of Columbus10-24-2024 10:35-0400Body jibsbl623.87 kgChildren'S Hospital Of [facility]10-24-2024 10:35-0400Diastolic blood fpxxoxds83 mm[Hg][facility] 05-16-2024 10:35-0400Heart rate77 /minChildren'S Hospital Of [facility] 05-16-2024 10:35-0400Systolic blood mm[Hg][facility]06-25-2024 09:18-0400Blood Pressure LocationJENNIFER ADRIAN [facility]06-25-2024 09:18-0400Diastolic blood mm[Hg]THUY ADRIAN [facility]06-25-2024 09:18-0400Heart rate68 /minJENNIFER ADRIAN [facility]06-25-2024 09:18-0400Respiratory rate16 /minJENNIFER ADRIAN [facility]06-25-2024 09:18-0400Systolic blood yyxxhhuy896 mm[Hg]THUY ADRIAN [facility]04-03-2024 09:30-0400Body .18 cmChildren'S Hospital Of [facility]04-03-2024 09:30-0400Body mass index (BMI) [Ratio]51.2 kg/a8WpjgspkwtChildren'S Hospital Of Columbus04-03-2024 09:30-0400Body xrmvny230.32 kgChildren'S Hospital Of [facility]04-03-2024 09:30-0400Diastolic blood qitcrsyj68 mm[Hg] [facility]04-03-2024 09:30-0400Heart rate95 /minChildren'S Hospital Of [facility]04-03-2024 09:30-4907JzO1% (BldA) [Mass fraction]96 % [facility]04-03-2024 09:30-0400Systolic blood bvvujmxl809 mm[Hg][facility]03-23-2024 12:49-0400Body kiqbjk846.18 cm [facility]03-23-2024 12:49-0400Body mass index (BMI) [Ratio]52 kg/o8SsrjlyhvkChildren'S Hospital Of [facility]03-23-2024 12:49-0400Body iychgawkeil45.4 [degF][facility]03-23-2024 12:49-0400Body qzzkuo267.59 kgChildren'S Hospital Of [facility]03-23-2024 12:49-0400Heart rate 64 /[facility]03-23-2024 12:49-0400Respiratory rate18 /[facility]03-23-2024 12:49-8918ErU7% (BldA) [Mass fraction]97 %[facility] Encounters Encounter DateEncounter TypeCare ProviderFacilityStart: 06-02-2025 End: 65-21-9306ngoejnovvaHycczhkFouzia Mendoza MDFacility:PM Sacha Start: 05-20-2025 End: 68-02-7987rrdqezndtuZnztym E Braun MD Work Phone: [facility]-20-2025 End: 13-46-6767Nvpkhvh encounter procedureOlman Shoemaker MD-[facility] Work Phone: Start: 04-08-2025 End: 09-09-6298Srzbzqmx ReferredOUTREASTRIA REG[facility] Work Phone: Start: 04-08-2025 End: 43-54-9896dmpexvabolSjgbgg E Braun MD Work Phone: [facility] Work Phone: Start: 02-05-2025 End: 81-89-8519Hccujr outpatient visit 15 minutesAleksandra Sandoval MD Work Phone: [facility] Genito-Urinary SurgeonsComment on above:Mineral metabolism disorder (Primary Dx)Start: 02-05-2025 End: 37-89-5293wpxyezbhxdGZEVDQY G RASHIDVermont State HospitalEsthela [facility] Ambulatory PPGStart: 12-31-2024 End: 79-90-5076Vcuwvpytk encounterAleksandra Sandoval MD Work Phone: [facility] Genito-Urinary SurgeonsStart: 12-31-2024 End: 92-24-8793Iswbal outpatient visit 25 minutesAleksandra Sandoval MD Work Phone: [facility] Physicians Genito-Urinary SurgeonsComment on above:Mineral metabolism disorder (Primary Dx); Kidney stoneStart: 12-31-2024 End: 39-75-8954wonuayfelcTEHJRKG G RASHIDClinton Memorial Hospital Ambulatory PPGStart: 12-06-2024 End: 18-49-0872snooozakdxVHTEKSDISt. Luke's Health – Bay[facility] Luke's Medical Centertart: 11-20-2024 End: 89-79-9774Fxzgeeqif encounterLoc PIKE Work Phone: [facility] Physicians Genito-Urinary SurgeonsStart: 51-33-9484ztcneeuhezFJUPTBLPSt. Luke's Health – Baylor St[facility] Luke's Medical Centertart: 11-20-2024 End: 59-85-2034Rcnosi outpatient visit 25 minutesLoc PIKE Work Phone: [facility] Physicians Genito-Urinary SurgeonsComment on above:Kidney stones (Primary Dx); Pelvicaliectasis; Kidney stoneStart: 11-20-2024 End: 81-63-3185ivkehqenbmVAUJINYVArbuckle Memorial Hospital [facility] PPG Start: 11-11-2024 End: 76-49-7020pusmkrraoiOZOLXS [facility] HospitalStart: 09-11-2024 End: 16-86-4523Koowuvzhy encounterEsme Chen MD Work Phone: [facility] Physicians Genito-Urinary SurgeonsStart: 09-11-2024 End: 97-30-8948Epabzzauql and management of inpatientESME CHENSelect Medical Specialty Hospital - Akron HospitalStart: 08-22-2024 End: 10-80-9503yowdoprsymIGQBXP M RAGHAVANMansfield Hospital HospitalStart: 08-16-2024 End: 66-04-2281gmdeskhmgwLknongbynFayette County Memorial Hospital Work Phone: Start: 08-16-2024 End: 03-82-5500Afctven encounter procedureJosh Physician GroupMercy Health St. [facility] Work Phone: Start: 08-09-2024 End: 32-53-9770Cxflqtouj encounterEsme Chen MD Work Phone: [facility] Genito-Urinary SurgeonsStart: 08-08-2024 End: 25-64-7063sacajanqzvCELXQI M RAGHAVANSelect Medical Specialty Hospital - Akron HospitalStart: 08-08-2024 End: 00-16-8893Rekgrjlxbf and management of inpatientESME Morfin AMBERSelect Medical Specialty Hospital - Akron HospitalStart: 07-23-2024 End: 26-64-4823necsettjilEEIGNR M [facility] LITTLETONLARRYSelect Medical Specialty Hospital - [facility] HospitalStart: 07-23-2024 End: 78-09-6037Kxcveeq encounter procedureMetro Pat Provider 1[facility] CenterComment on above:Hypokalemia (Primary Dx); Calculus of ureterovesical junction (UVJ)Start: 06-29-2024 End: 77-76-5478Mueugwevt encounterEsme Chen MD Work Phone: [facility] Intra OperativeStart: 06-27-2024 End: 39-30-6043mlfsotqfacNHGYXE Navjot [facility] LITTLETONLARRYDiley Ridge Medical Centertart: 06-18-2024 End: 00-34-0483whukbmqymlUKYAUX E BRAUNProMedica Centreville HospitalStart: 06-14-2024 End: 59-86-4172Vpusuurur to establishmentMetro Pat Phone Call Provider 2 [facility] Centertart: 06-14-2024 End: 04-59-4180Ypuxwyvdcy and management of inpatientMARCIA E BRAUNProMedica Cuba HospitalStart: 06-06-2024 End: 96-02-4653WjvstnCecilia MITCHELL Work Phone: [facility] Infectious DiseaseComment on above:Bacteremia (Primary Dx)Start: 05-30-2024 End: 21-72-2777Vzzgafo encounter procedureEcu Health Medical Center Physician Group-[facility] Work Phone: Start: 05-27-2024 End: 31-47-0937Ztqqpkmhp encounterMicnavid Messina RMAProMedica Physicians Genito- Urinary SurgeonsStart: 39-63-3075Fwv-patient / Non-visitEcu Health Medical Center Physician Group-[facility] Work Phone: Start: 05-23-2024 End: 62-31-2871Dsuxownju encounterEsme Chen MD Work Phone: [facility] Genito-Urinary SurgeonsStart: 36-22-4070Lwdgwcl encounter Core[facility] Hospitaltart: 39-57-9762Cft-patient / Non-visitEcu Health Medical Center Physician Group-[facility] Work Phone: Start: 05-21-2024 End: 69-57-6287Majazfbncp and management of inpatientREBECCA S [facility] HospitalStart: 20-10-2572rlzqpoglhnCAFNTNUmpqua Valley Community Hospital Ambulatory PPGStart: 05-21-2024 End: 82-51-3878Fwgzpsukop and management of inpatientCHRISTOPHER EWUniversity Hospitals [facility] Center HospitalStart: 05-21-2024 End: 63-05-3896Odxgfhaamk and management of inpatientEmile Eli MENDOZA Work Phone: [facility] - GEN 9 ICUComment on above: Septic shock ([facility]) (Primary Dx); E coli bacteremia; NephrolithiasisStart: 60-95-1365Trr-patient / Non-visitEcu Health Medical Center Physician Group-[facility] Professional Co Work Phone: Start: 05-16-2024 End: 44-24-7145bqdsrxpiegQnxzvxeewWVUMedicine [facility] Work Phone: Start: 05-16-2024 End: 58-25-7761Mqwvzev encounter procedureEcu Health Medical Center Physician GroupMercy Health St. [facility] Work Phone: Start: 01-16-2024 End: 10-04-3816aaqjzntjrxWXIVCXAX E PERRYFacility:EU BellevueStart: 01-16-2024 End: 11-70-4544Qzwelwr encounter procedureJENNIFER E ADRIAN [facility] start: 10-25-2023 End: 67-72-8003lmxzlwtcdoMetoawfcbFayette County Memorial Hospital Work Phone: Start: 10-25-2023 End: 13-36-0862Wkmgcps encounter procedureEcu Health Medical Center Physician Group-[facility] Work Phone: Start: 10-14-2023 End: 61-23-3014ssnsrppzgwQfkowgpdaFayette County Memorial Hospital Work Phone: Start: 10-14-2023 End: 05-37-1998Evaghmg encounter procedureEcu Health Medical Center Physician Group-[facility] Madhu Work Phone: Start: 03-14-2023 End: 24-50-2249cwxefnhcyeJisuuo Braun Other [employer]Se[employer]ol[employer] Other Start: 57-04-3816Hrtfsglcq encounterMarcia SaharaHenry County Hospitaltart: 03-09-2023 End: 62-47-8338dligqixtldDzboys Sahara Other [facility] [employer] Other Start: 66-92-7720Aqjndpdzn encounterMarcia SaharaHenry County Hospitaltart: 02-16-2023 End: 45-45-2310zmvgsyowdiOkbjem Sahara Other [employer] Other Start: 92-35-7246Gdcshqpos encounterMarcia SaharaHenry County Hospitaltart: 02-09-2023 End: 61-82-0634sxszikbuxtBxzmmk Sahara Other Nort [employer] Other Start: 34-41-3353Eldrmnpod encounterOlman Shen [facility] ClinicStart: 08-10-2022 End: 61-99-1180Mbd Drop offJEELVIN CAMPBELL [facility] Start: 08-08-2022 End: 76-01-4317znsiyhyrmnBJ DOCTOR MISCFacility:H1Mxpdz: 03-10-2022 End: 52-68-2882zbtfewvgmgAG OLMAN SHOEMAKERFacility:O7Ecoqp: 02-22-2021 End: 42-96-0838fzmnrmesyrXCBQGGV TANGFacility:[facility]PITALtart: 01-14-2021 End: 19-52-4984viirzubqwfJFTROHN TANGFacility:[facility] Procedures DateProcedureProcedure DetailPerforming ClinicianStart: 12-82-2251Hlctqf-up visitFollow-upMICHELLE I MURPHYStart: 43-08-3403Hxxmv metabolic panel calcium totalDiana L Perea [employer]STRUCTION HELPER[employer]ACH [employer]NER Work Phone: Start: 43-68-9888Ukokulf bacterial quanttative colony count urineEsme Chen MD Work Phone: Start: 80-76-1309Dinqv dip stick/tablet rgnt auto w/o microscopyEsme Chen MD Work Phone: Start: 96-91-8511Kezsy depression screening assessment Esme Chen MD Work Phone: Start: 70-56-5600Qnkvp metabolic panel calcium total Lesvia Andrews MD Work Phone: Start: 70-31-0590Unyqfktnh serum plasma/whole blood Ralph Wei Avasilcai CONSTRUCTION HELPER[employer]ACH [employer]NER Work Phone: Start: 64-81-5089Ywedn metabolic panel calcium total Lesvia Andrews MD Work Phone: Start: 95-38-4041Rfmqywoay serum plasma/whole blood Thuy J Elizabet [employer]STRUCTION HELPER[employer] Work Phone: Start: 05-24-2024 End: 82-75-6519Vfozdmduovlxj metabolic panelRyan Benitez MD Work Phone: Start: 85-58-3160Jbiztzciq serum plasma/whole blood Ryan Benitez MD Work Phone: Start: 03-56-0112Rfvzgnkoo serum plasma/whole blood Melissa Arana CONSTRUCTION HELPER[employer]LEACH [employer]NER Work Phone: Start: 95-69-0774Qeayfpq bacterial blood aerobic w/id isolatesBerpritesh Boyd CONSTRUCTION HELPER[employer]ACH [employer]NER Work Phone: Start: 09-45-7238Cimjbinhxtgxn metabolic panelCristian Petrisor Avasilcai CONSTRUCTION HELPER[employer]LEACH [employer]NER Work Phone: Start: 05-22-2024 End: 87-41-5462Tnifnyupwixhg metabolic panelCristian Petrisor Avasilcai [employer]STRUCTION HELPER[employer]ACH [employer]NER Work Phone: Start: 66-28-4790Tjtcojywv serum plasma/whole blood Ruel Leblanc [employer]STRUCTION HELPER[employer]LEACH [employer]NER Work Phone: Start: 00-20-8444Mclld dip stick/tablet rgnt auto w/o microscopyMojohnny Thompson MD Work Phone: Start: 71-24-0889Fmui nephrostomy cath prq new access rs&iRebecca S Lencho PIKE Work Phone: Start: 07-48-5331Bnwyj of lactateCristian Petrisor Avasilcai CONSTRUCTION HELPER[employer]LEACH [employer]NER Work Phone: Start: 05-21-2024 End: 51-31-5497Szolhfq bacterial quanttative colony count urineCristian Petrisor Avasilcai CONSTRUCTION HELPER[employer]ACH [employer]NER Work Phone: Start: 98-18-1597Qlnvkiihdh exam chest single view Dana Reynoso CONSTRUCTION HELPER[employer]LEACH [employer]NER Work Phone: Start: 05-21-2024 End: 79-09-2171Nlqq cathj/cannulj mntr/transfusion spx prqEvan Prielipp [facility] Work Phone: Start: 58-46-0595Rem routine ecg w/least 12 lds trcg only w/o i&rCristian Petrisor Avasilcnatividad [facility] Work Phone: Start: 79-39-8062EGWG ARTERIAL LINE SETUPEvscot Estrellaelirenu [facility] Work Phone: Start: 45-22-2899Xctsrapo Identification OnlyStart: 05-21-2024 End: 71-73-8490Qkemmplfursoh metabolic panelCristian Eriberto Arriagaasilcnatividad [facility] Work Phone: Start: 32-60-3168Nbhhn depression screening assessment Esme Chen MD Work Phone: Start: 70-77-4267XCHIHV REPAIR OF HERNIAJIANLIN PAGAN Start: 95-56-8489SEKYBKYV VENTRL DENTON REDUCEJIANLIN TANGStart: 02-03-2020 Extracorporeal shockwave lithotripsy of calculus of kidneyDEVINNIFER ADRIAN Start: 31-75-6077Kgkurov of arthroplasty of left knee THUY CAMPBELL Start: 31-13-4330Vydbb replacement of right knee joint THUY CAMPBELL Comment on above:UTMCStart: 07-03-3596Ixl-surgery evaluationMarcia Shoemaker Other Start: 71-65-6448Qezdmfzxm mammographyMarcia Shoemaker Other CholecystectomyJENNIFER ADRIAN HysterectomyJENNIFER ADRIAN Removal of sutureMarcia Shoemaker Other Repair of right inguinal herniaJENNIFER ADRIAN Comment on above:unknown year Plan of Treatment DateCare ActivityDetailAuthorStart: 02-16-2026 End: 87-89-4069Hwlxvct encounter yooaibzvw23/27/2026 1:00 PM EDT Office Visit [facility] [address] [place] [address] [facility] [place] [address] Aleksandra Sandoval MD [facility] [place] [id number] [facility]ito-Urinary SurgeonsStart: 19-13-3095Hjuuw BMI ScreeningAdult BMI Screening [facility] SystemStart: 84-96-3280Tmnihoo ScreeningTobacco Screening [facility] SystemStart: 02-05-2026 End: 69-76-0689NW Abdomen APX-ray abdomen ap 1 view Imaging Routine Mineral metabolism disorder Expected: 02/05/2026 (Approximate), Expires: 02/05/2027 [facility] Work Phone: Comment on above:Expected: 02/05/2026 (Approximate), Expires: 02/05/2027Start: 49-80-3397Gzmaq BMI ScreeningAdult BMI Screening [facility] SystemStart: 29-28-4232Ymcjlcu ScreeningTobacco Screening [facility] SystemStart: 67-69-6097Gqwsq BMI ScreeningAdult BMI Screening [facility] SystemStart: 82-56-6870Azzaesw ScreeningTobacco Screening [facility] SystemStart: 01-97-0670Xihqn BMI ScreeningAdult BMI Screening [facility] SystemStart: 74-86-5495Lhgalqa ScreeningTobacco Screening [facility] SystemStart: 66-94-1412Nzpag BMI ScreeningAdult BMI Screening [facility] SystemStart: 22-84-1610Yoycq BMI ScreeningAdult BMI Screening [facility] SystemStart: 43-20-3151Xkfhmkw ScreeningTobacco Screening [facility] SystemStart: 50-41-9131Qlqug BMI ScreeningAdult BMI Screening [facility] Mercytart: 96-52-5807Cxwpxvs ScreeningTobacco Screening [facility] SystemStart: 57-31-6559Glgjalvhoq ScreeningDepression Screening [facility] Mercytart: 61-63-4804Uxfkj BMI ScreeningAdult BMI Screening [facility] Mercytart: 71-42-2193Cnxqj BMI ScreeningAdult BMI Screening [facility] SystemStart: 41-31-3582Umeqndsfjd ScreeningDepression Screening [facility] SystemStart: 08-52-6900Ryagszz ScreeningTobacco Screening [facility] Mercytart: 70-28-3433Xehouhdzs vaccinationInfluenza Vaccine [facility] Mercytart: 11-20-2024 End: 77-16-0076TH Kidney and Ureter and Urinary bladder 3D post processing WO and W contrast IVCT urogram Imaging Routine Kidney stones Pelvicaliectasis Expected: 11/20/2024, Expires: 11/20/2025[employer] Work Phone: Comment on above:Expected: 11/20/2024, Expires: 11/20/2025Start: 11-10-2024 End: 75-52-0714XK RetroperitoneumUltrasound retroperitoneal complete Imaging Routine Calculus of ureterovesical junction (UVJ) Expected: 11/10/2024 (Approximate), Expires: 12/09/2024[employer] Work Phone: Comment on above:Expected: 11/10/2024 (Approximate), Expires: 12/09/2024Start: 09-11-2024 End: 31-68-0411BJCPFHRFMZ REMOVAL STENTCYSTOSCOPY REMOVAL STENT Calculus of ureterovesical junction (UVJ) 09/11/2024 7:34 AM CribspotVermont State HospitalGood Works Now Start: 08-09-2024 End: 16-25-6676QC Abdomen and Pelvis WO contrastCT abdomen and pelvis without contrast Imaging Routine Flank pain Expected: 08/09/2024, Expires: 11/07/2024 [employer] Work Phone: Comment on above:Expected: 08/09/2024, Expires: 11/07/2024Start: 07-31-2024 End: 26-22-0125Xwzlulilc to same day surgery qbolow0107/31/2024 3:30 PM EST - 07/31/2024 5:15 PM EST Surgery [facility] Surgery [address] [place] [phone] Esme Chen MD [address] [place] [address] LASER HOLMIUM URETEROSCOPY RENAL STONES < OR=1CM [79025 (CPT )][facility] LimaComment on above:LASER HOLMIUM URETEROSCOPY RENAL STONES < OR=1CM [06919 (CPT )]Start: 07-31-2024 End: 39-40-0425Esfci w/insert ureteral stentCYSTOSCOPY EXCHANGE STENT URETER Calculus of ureterovesical junction (UVJ) 07/31/2024 3:30 PM ESTTOLED SURGERY Start: 07-31-2024 End: 54-49-1588Vfgkw w/ureteroscopy w/lithotripsyLASER HOLMIUM URETEROSCOPY RENAL STONES < OR=1CM Calculus of ureterovesical junction (UVJ) 07/31/2024 3:30 PM [facility] SURGERYStart: 31-91-1031Izvxzbxmqh hospital visit by physician 07/31/2024 3:30 PM EST Hospital Encounter [facility] - Surgery [address] [place] [phone] Esme Chen MD [address] [place] [address] [facility] SurgeryStart: 06-28-2024 End: 98-41-6852Vzpmqrmzo to same day surgery tjlvqm0706/28/2024 1:00 PM EST - 06/28/2024 3:00 PM EST Surgery [facility] Surgery [address] [place] [phone] Esme Chen MD [address] [place] [phone] LASER HOLMIUM URETEROSCOPY RENAL STONES < OR=1CM [85501 (CPT )][facility] LimaComment on above:LASER HOLMIUM URETEROSCOPY RENAL STONES < OR=1CM [69854 (CPT )]Start: 06-28-2024 End: 09-07-1963Kdpct w/insert ureteral stentCYSTOSCOPY INSERTION STENT URETER Septic shock (CMS-HCC) Calculus of ureterovesical junction (UVJ) 06/28/2024 1:00 PM [facility] SURGERYStart: 06-28-2024 End: 70-29-9923Prlos w/ureteroscopy w/lithotripsyLASER HOLMIUM URETEROSCOPY RENAL STONES < OR=1CM Septic shock (CMS-HCC) Calculus of ureterovesical junction (UVJ) 06/28/2024 1:00 PM [facility] SURGERYStart: 49-37-7057Kjrukxgano hospital visit by ayrunthxe36/06/2024 1:00 PM EST Hospital Encounter [facility] Surgery [address] [place] [phone] Esme Chen MD [address] [place] [phone] [facility] SurgeryStart: 06-27-2024 Evaluation and management of cofqjwvsf69/05/2024 12:01 AM EST Hospital Encounter Esme Chen MD [facility] [place] [phone] [facility] SystemStart: 06-14-2024 End: 20-11-6733Yikaserds to bcanjaxgmesvn10/22/2024 11:30 AM EST Support Visit [facility] On [address] [phone] [facility] Start: 06-06-2024 End: 23-86-8510XDTB Line RemovalPICC Line Removal Procedures Routine Bacteremia Expected: 06/06/2024 (Approximate), Expires: 07/06/2024[facility] Work Phone: Comment on above:Expected: 06/06/2024 (Approximate), Expires: 07/06/2024Start: 01-27-7692Vkkkct ID + SusceptAerobe ID + Suscept [facility]tart: [id number] Identification Only Anaerobe Identification OnlyPike Community Hospitaltart: 03-24-2024 COVID-19 Vaccine ( season)COVID-19 Vaccine ( season) [facility] [employer] SystemStart: 62-36-9195Zijzwfcgh vaccinationInfluenza Vaccine [facility] SystemStart: 11-23-9047Cbjq Risk ScreeningFall Risk Screening [facility] Aircrmtart: 60-39-6988MCpI,Tdap and Td Vaccines (1 - Tdap) DTaP,Tdap and Td Vaccines (1 - Tdap)[facility] Aircrmtart: [birth year]-1975 Adult BMI Follow Up PlanAdult BMI Follow Up PlanTriHealth McCullough-Hyde Memorial HospitalBacteria identified in Blood by Aerobe cultureTriHealth McCullough-Hyde Memorial HospitalBalouisville medical center metabolic 2000 panel - Serum or PlasmaBasic Metabolic Panel Lab Routine Lab max of 3 days, Daily, for lab use only until discontinued starting 05/25/2024, 2 completed [facility] Work Phone: Comment on above:Lab max of 3 days, Daily, for lab use only until discontinued starting 05/25/2024, 2 completedCBC W Auto Differential panel - BloodCBC auto differential Lab Routine Lab max of 3 days, Daily, for lab use only until discontinued starting 05/25/2024, 2 completedUniversity [facility]als [facility] SystemComment on above:Lab max of 3 days, Daily, for lab use only until discontinued starting 05/25/2024, 2 completedComprehenve metabolic 2000 panel - Serum or PlasmaChildren'S Hospital Of ColumbusComprehensive metabolic 2000 panel - Serum or PlasmaFirelands Regional Medical Center End: 61-19-5866Hbmkbamgyx includes GFR, serumCreatinine includes GFR, serum Lab STAT STAT for 1 Occurrences starting 05/21/2024 until 05/21/2024[facility] HospitalComment on above:STAT for 1 Occurrences starting 05/21/2024 until 05/21/2024 End: 55-75-0505Qwojmeqdao includes GFR, serumCreatinine includes GFR, serum Lab Routine E coli bacteremia weekly for 2 Occurrences starting 05/25/2024 until 05/25/2025[facility] SystemComment on above:weekly for 2 Occurrences starting 05/25/2024 until 05/25/2025 End: 62-61-8861Skchtvr magnesiumIonized magnesium Lab Routine Once for 1 Occurrences starting 05/26/2024 until 05/26/2024[facility] HospitalComment on above:Once for 1 Occurrences starting 05/26/2024 until 05/26/2024 End: 27-24-1854Targxxw [Moles/volume] in Serum or PlasmaLactate Lab Routine Once for 1 Occurrences starting 05/21/2024 until 05/21/2024[facility] Comment on above:Once for 1 Occurrences starting 05/21/2024 until 05/21/2024 End: 36-51-2015Ntadsgg [Moles/volume] in Serum or PlasmaLactate Lab Routine Once for 1 Occurrences starting 05/22/2024 until 05/22/2024[facility] Work Phone: Comment on above:Once for 1 Occurrences starting 05/22/2024 until 05/22/2024 End: 51-13-8726Mldimxaqkt [#/volume] in BloodWBC Lab Routine E coli bacteremia weekly for 2 Occurrences starting 05/25/2024 until 05/25/2025[employer] Work Phone: Comment on above:weekly for 2 Occurrences starting 05/25/2024 until 05/25/2025 End: 48-23-4375Znbclawjw 24 HourLitholink 24 Hour Lab Routine Kidney stone 1 Occurrences starting 12/31/2024 until 12/31/2025[employer] Work Phone: Comment on above:1 Occurrences starting 12/31/2024 until 12/31/2025 End: 99-22-8507Jdyns panelLiver panel Lab Routine E coli bacteremia weekly for 2 Occurrences starting 05/25/2024 until 05/25/2025[facility] [employer] SystemComment on above:weekly for 2 Occurrences starting 05/25/2024 until 05/25/2025Magnesium [Mass/volume] in Serum or PlasmaMagnesium Lab Routine Lab max of 3 days, Daily, for lab use only until discontinued starting 05/25/2024, 2 completedProNorthwest Medical Center Health SystemComment on above:Lab max of 3 days, Daily, for lab use only until discontinued starting 05/25/2024, 2 completedMG Breast - bilateral Screening [facility] Hospital Of ColumbusOxygen Therapy - Maintain SpO2: 90%; *CHIPS SCREEN TENDER Guidelines for O2: Yes; Document: \[email or web address]\epi c\EPIC_Reference\Orders\Respiratory Care Guidelines\CPG Oxygen 2022.pdfOxygen Therapy - Maintain SpO2: 90%; *CHIPS SCREEN TENDER Guidelines for O2: Yes; Document: \[email or web address]\epic\EPIC_Reference\Orders\Respiratory Care Guidelines\CPG Oxygen 2022.pdf Respiratory Care Routine AsNeeded until discontinued starting 05/21/2024[facility]MedTrinity College Dublin Work Phone: Comment on above:As Needed until discontinued starting 05/21/2024 End: 23-93-6706Rdykbyqnv [#/volume] in BloodPlatelet count Lab Routine E coli bacteremia weekly for 2 Occurrences starting 05/25/2024 until 05/25/2025 [facility] [employer] SystemComment on above:weekly for 2 Occurrences starting 05/25/2024 until 05/25/2025 End: 21-96-8318Qlvtuygn I, High Sensitivity 3 HourTroponin I, High Sensitivity 3 Hour Lab Routine Once for 1 Occurrences starting 05/21/2024 until 05/21/2024 [facility] [employer] SystemComment on above:Once for 1 Occurrences starting 05/21/2024 until 05/21/2024XR Lumbar spine 2 or 3 [facility] Immunizations Immunization DateImmunizationNotesCare DlkujfbnHbbgwckh62-38-3576jryajo vaccine recombinantJENNIFER ADRIAN [facility]07-18-2023zoster vaccine recombinantJENNIFER ADRIAN [facility]11-09-2021SARS-CoV-2 (COVID-19) mRNA BNT-162b2 vaxJENNIFER ADRIAN [facility] HealthComment on above:Result Comment: 2022-08-10: [id number]-BpC-1 (COVID-19) mRNA BNT-162b2 vaxJENNIFER ADRIAN [facility]02-12-2021SARS-CoV-2 (COVID-19) mRNA BNT-162b2 vaxJENNIFER ADRIAN [facility] Payers DatePayer CategoryPayerPolicy [id number] Unknown2024Medicare [id number] [id number] 2.840.1.642923.3.57[id number] 2.840.1.544381.3.57[id number] 2.840.1.692755.3.579.[id number] 2.0.1.581168.3.579.[id number] 2.0.1.499296.3.57[id number] 2.0.1.779086.3.579.2.[id number] 2.0.1.528871.3.579.2.[id number] 2.0.1.366217.3.579.[id number] 2.0.1.193941.3.579.2.017[id number] 2..1.530898.3.579.2.[id number] 2.0.1.868882.3.579.2.2[id number] 2.840.1.491118.3.57[id number] 2.840.1.092858.3.579.2.73[id number] 2.840.1.588488.3.579.[id number] 2.16.840.1.773534.3.579.[id number] 2.16.840.1.554991.3.579.2.58[id number] 2.16.840.1.369762.3.579.2.74[id number] 2.16.840.1.966605.3.579.2.6[id number] 2..840.1.921106.3.579.[id number] 2..840.1.336618.3.579.2.662245-25-8417Ropeedw08780724 2.840.1.121904.3.579.2.21087-76-0789Jyvrcdk189162338 2..840.1.413096.3.579.2.196Medicare9EF0PF0YF07 ow528651-32eg-61o6-r74w-l22p2d1mg3j8Ghvugxk0367461 2.840.1.279644.3.579.2.593 Xgxywya15004102 2.840.1.491616.3.579.2.531 Social History DateTypeDetailFacilityStart: 08-10-2022 End: 67-64-5632Pdnaais smoking statusEx-smoker (finding)[facility] Daytontart: 09-03-2020 End: 17-16-2706Xbn [facility]igned At [facility]art: 49-45-9785Fcz Assigned At [facility] HospitalTobacco smoking statusNeverExec[facility] End: 35-14-0046Gsukmho of tobacco useCurrent smokerTriHealth [facility] End: 98-77-8282Tqkrbpb of tobacco useCigarette SmokerTriHealth [facility] History of tobacco usePassive smokerAtrium Health Mercytart: 06-14-2024 End: 82-89-4528Ywrdpby use and exposureSmokeless tobacco non-userAtrium Health Mercytart: 07-23-2024 End: 69-18-2756Vkdzsyobt beverage intakeLifetime non-drinker (finding)[facility]: 09-03-2020 End: 05-74-1097Souxclq of Social functionTriHealth McCullough-Hyde Memorial HospitalHas the [place], gas, oil, or water company threatened to shut off services in your home in past [facility] NetworkHow often to you have a drink containing alcohol?NeverAtrium Health Mercytart: 55-03-6846Igvhjsg Comment 0.5ppd smoked on & off for about 20 yearsAtrium Health Mercytart: 14-37-5155Xxa assigned at birthNot on fileAtrium Health Mercytart: 05-08-2018 End: 40-51-3527OiqTcvjan (finding)[facility]: 05-21-2024 Tobacco smoking status NHISNever smoked tobaccoAtrium Health Mercytart: 65-38-9904Firkvrd Gabvkli3145-3407 smoked on & off for about 20 yearsTriHealth [facility] Medical Equipment Procedure CodeEquipment CodeEquipment Original TextEquipment IdentifierDates Stent Uret 6fr 26cm 2 Pgtl Crv Rdpq Pstnr [facility] [id number]: 65-71-2789Dbohmaj on above:Description: NO STRINGSStent Uret 6fr 26cm 2 Pgtl Crv Rdpq Pstnr [facility] [id number]_voyQzmzz: 31-79-0100Qhzer Uret 6fr 26cm 2 Pgtl Crv Rdpq Pstnr [facility] [id number]_xrfCgywu: 09-11-2024 Goals DatePatient GoalDesired Activity/StatePersonal health goalComment on above: Evaluation of progress towards goal: safe transition home with home care and support. Functional Status SzjzTajpuurknaEyauikHhhtezyl55-40-6444Oezahzxbzt StatusN/AExecutive [facility] of [facility] Mental Status DateAssessmentResultJefferson [facility] ([facility] Clinical Notes 01-16-2024 to 04-08-2025 Note Date & WdgwNunuAmraaxeq72-99-9410 Radiology Diagnostic [facility] Main [place] [id number] Ultrasound Report Signed Patient: Sharri Murillo MR#: [id number] 80 : 1955 Acct:[id number] Age/Sex: 69 / F ADM Date: 5 Loc: RH Room: Type: REG REF Attending Dr: Bharathi Community Ordering Provider: STEFAN,OUTREACH Date of Service: 04/08/25 US/US community outreach aorta: SCREENING Copies to: COMMUNITY,OUTREACH ~ Aorta screening ultrasound HISTORY: Screening exam Normal caliber abdominal aorta. US/US community outreach aorta IMPRESSION: No abdominal aortic aneurysm. Impression dictated by: Milton Yap M.D. 04/08/2025 3:29 PM Dictation Location: [place] [address] Tech: Lamar Renowyatt Transcribed By: [facility] 04/08/25 1529 Dictated By: Milton Yap DO 04/08/25 1529 Signed By: 04/08/25 [facility]09-16-2025 Radiology Diagnostic study note [facility] Main [place] [id number] Ultrasound Report Signed Patient: Sharri Murillo MR#: [id number] 80 : 1955 Acct:[id number] Age/Sex: 69 / F ADM Date: 5 [...] Wave forms by plethysmography are normal. US/US [facility] KATY IMPRESSION: NO HEMODYNAMICALLY SIGNIFICANT PERIPHERAL VASCULAR OCCLUSIVE DISEASE AT REST IN EITHER LOWER EXTREMITY. Impression dictated by: Jovany Heart MD,FACS,FSVS 04/08/2025 2:09 PM Dictation Location: [facility]04 Tech: Shira Vilchis Transcribed By: PWS 04/08/251408 Dictated By: Jovany Heart MD 04/08/251407 Signed By: 04/08/251408 [facility] Work Phone: 1(174) 582-764709-16-2025 Radiology Diagnostic study [facility] [place] [address] Ultrasound Report Signed Patient: Sharri Murillo MR#: [id number] 80 : 1955 Acct:[id number] Age/Sex: 69 / F ADM Date: 5 Loc: Room: Type: [facility] Attending Dr: Bharathi [facility] Ordering Provider: BHARATHI AVILES Date of Service: 04/08/25 US/US [facility] outreach carotid: SCREENING Copies to: [facility] ~ CAROTID DUPLEX INDICATION: [facility] carotid screening program. PROCEDURE: Color-flow duplex scanning [...] to the common carotid arteryis 0.99 . / community outreach carotid IMPRESSION: NO HEMODYNAMICALLY SIGNIFICANT STENOSIS OF EITHER EXTRACRANIAL INTERNAL CAROTID ARTERY. Impression dictated by: Jovany Heart MD,FACS,FSVS 04/08/2025 2:08 PM Dictation Location: [place] [address] Tech: Lamar Kathleen Transcribed By: KAMILAH 04/08/251407 Dictated By: Jovany Heart MD 04/08/251407 Signed By: 04/08/25 140 [facility] Work Phone: 1(168) 645-296807-16-2025 History of Present illness Narrative* Aleksandra Sandoval MD - 02/05/2025 12:00 PM EDT Images from the original note were not included. [address] [place] [address] [address] [facility] [address] Patient: Sharri Murillo Date of : 1955 Encounter Date: 02/05/2025 History of Present Illness: The patient is a 69 y.o. female, an established patient, and is here for Chief Complaint Patient presents with Follow-up . Mineral metabolism workup. Twenty-four urine litho link. Reviewed. Strategies discussed with the patient. Lwga-tnr-awzfdut supplement also discussed. Subsequent imaging discussed as [...] past Migraines 07/23/2024 6x year Septic shock ([facility]) 05/21/2024 Visual impairment glasses Past Surgical History: Procedure Laterality Date CYSTOSCOPY EXCHANGE STENT URETER Left 08/08/2024 Performed by Esme Chen MD at [facility] CYSTOSCOPY INSERTION STENT URETER Left 06/28/2024 Performed by Esme Chen MD at [facility] CYSTOSCOPY REMOVAL STENT Left 09/11/2024 Performed by Esme Chen MD at [facility] CYSTOSCOPY RETROGRADE PYELOGRAM Left 08/08/2024 Performed by Esme Chen MD at [facility] CYSTOSCOPY RETROGRADE PYELOGRAM Left 06/28/2024 Performed by Esme Chen MD at [facility] HYSTERECTOMY age 42's INGUINAL HERNIA REPAIR x2 pt unsure of date JOINT REPLACEMENT Bilateral pt unsure of when KIDNEY STONE SURGERY 2017 I had kidney stones blasted LASER HOLMIUM URETEROSCOPY RENAL STONES < OR=1CM; STONE BASKET EXTRACTION Left 06/28/2024 Performed by Esme Chen MD at [facility] LASER HOLMIUM URETEROSCOPY WITH VACUUM ASPIRATION/STONE BASKETING Left 08/08/2024 Performed by Esme Chen MD at [facility] REMOVAL TUBE NEPHROSTOMY Left 06/28/2024 Performed by Esme Chen MD at [facility] TONSILLECTOMY as a child UMBILICAL HERNIA REPAIR pt unsure of when URETERAL DILATION Left 06/28/2024 Performed by Esme Chen MD at [facility] Family History Problem Relation Age of Onset [...] damage causing pain and loss of function. usahpecj-xcph-BV-calcium &mins (THERAGRAN-M) 9 mg iron-400 mcg tablet [...] you for your understanding. documented in this encounterTriHealth McCull[facility] Hospital06-10-2025 Miscellaneous Notes* Telephone Encounter - Kaylen Kendall - 12/31/2024 2:36 PM EDT I faxed litho link order successfully to [phone]. documented in this encounterTriHealth McCull[facility] Hospital06-10-2025 Telephone encounter Note* Telephone Encounter - Kaylen Kendall - 12/31/2024 2:36 PM EDT I faxed litho link order successfully to [phone]. [facility]06-10-2025 History of Present illness Narrative* Aleksandra Sandoval MD - 12/31/2024 1:45 PM EDT Images from the original note were not included. [address] [place] [address] [facility] [address] Patient: Sharri Murillo Date of : 1955 [...] past Migraines 07/23/2024 6x year Septic shock ([facility]) 05/21/2024 Visual impairment glasses Past Surgical History: Procedure Laterality Date CYSTOSCOPY EXCHANGE STENT URETER Left 08/08/2024 Performed by Esme Chen MD at [facility] CYSTOSCOPY INSERTION STENT URETER Left 06/28/2024 Performed by Esme Chen MD at [facility] CYSTOSCOPY REMOVAL STENT Left 09/11/2024 Performed by Esme Chen MD at [facility] CYSTOSCOPY RETROGRADE PYELOGRAM Left 08/08/2024 Performed by Esme Chen MD at [facility] CYSTOSCOPY RETROGRADE PYELOGRAM Left 06/28/2024 Performed by Esme Chen MD at [facility] HYSTERECTOMY age 42's INGUINAL HERNIA REPAIR x2 pt unsure of date JOINT REPLACEMENT Bilateral pt unsure of when KIDNEY STONE SURGERY 2017 I had kidney stones blasted LASER HOLMIUM URETEROSCOPY RENAL STONES < OR=1CM; STONE BASKET EXTRACTION Left 06/28/2024 Performed by Esme Chen MD at [facility] LASER HOLMIUM URETEROSCOPY WITH VACUUM ASPIRATION/STONE BASKETING Left 08/08/2024 Performed by Esme Chen MD at [facility] REMOVAL TUBE NEPHROSTOMY Left 06/28/2024 Performed by Esme Chen MD at [facility] TONSILLECTOMY as a child UMBILICAL HERNIA REPAIR pt unsure of when URETERAL DILATION Left 06/28/2024 Performed by Esme Chen MD at [facility] Family History Problem Relation Age of [...] damage causing pain and loss of function. qtgvlkih-uwfb-CC-calcium &mins (THERAGRAN-M) 9 mg iron-400 mcg tablet [...] you for your understanding. documented in this encounterTriHealth McCull[facility] Hospital04-30-2025 Evaluation + Plan note* Assessment & Plan Note - SHAHZAD Coleman - 11/20/2024 1:06 PM EDT Associated Problem(s): Kidney stone Dr. Chen performed her procedures but she would like to see a doctor that goes to [place]. [facility]04-30-2025 Miscellaneous Notes* Assessment & Plan Note - SHAHZAD Coleman - 11/20/2024 1:06 PM EDTAssociated Problem(s): Kidney stone Dr. Chen performed her procedures but she would like to see a doctor that goes to [place]. documented in this encounterTriHealth McCull[facility] Hospital04-30-2025 Miscellaneous Notes* Telephone Encounter - Kaylen Kendall - 11/20/2024 11:31 AM EDT Offday appointment (at least 15 min) with Dr. Sandoval or Dr. Silverman for the results CT Urogram. Call to schedule after ct scheduled documented in this encounterTriHealth McCull[facility] Hospital04-30-2025 Telephone encounter Note* Telephone Encounter - Kaylen Kendall - 11/20/2024 11:31 AM EDT Offday appointment (at least 15 min) with Dr. Sandoval or Dr. Silverman for the results CT Urogram. Call to schedule after ct scheduled [facility]04-30-2025 History of Present illness Narrative* SHAHZAD Coleman - 11/20/2024 11:00 AM EDT Images from the original note were not included. [address] [place] [address] [facility] [address] Patient: Sharri Murillo Date of : 1955 [...] having any pain. She was following with [facility] and was last seen in December 2023 Summary of old records: Notes from Dr. Chen 05/21/24: The patient is a 68 y.o. female who presented to [facility] with history of recent UTI on 05/16 [...] ureter or renal pelvis. Pt transferred to [facility] as she has required Vasopressor for hypotension. [...] past Migraines 07/23/2024 6x year Septic shock ([facility]) 05/21/2024 Visual impairment glasses Past Surgical History: Procedure Laterality Date CYSTOSCOPY EXCHANGE STENT URETER Left 08/08/2024 Performed by Esme Chen MD at [facility] CYSTOSCOPY INSERTION STENT URETER Left 06/28/2024 Performed by Esme Chen MD at [facility] CYSTOSCOPY REMOVAL STENT Left 09/11/2024 Performed by Esme Chen MD at [facility] CYSTOSCOPY RETROGRADE PYELOGRAM Left 08/08/2024 Performed by Esme Chen MD at [facility] CYSTOSCOPY RETROGRADE PYELOGRAM Left 06/28/2024 Performed by Esme Chen MD at [facility] HYSTERECTOMY age 42's INGUINAL HERNIA REPAIR x2 pt unsure of date JOINT REPLACEMENT Bilateral pt unsure of when KIDNEY STONE SURGERY 2017 I had kidney stones blasted LASER HOLMIUM URETEROSCOPY RENAL STONES < OR=1CM; STONE BASKET EXTRACTION Left 06/28/2024 Performed by Esme Chen MD at [facility] LASER HOLMIUM URETEROSCOPY WITH VACUUM ASPIRATION/STONE BASKETING Left 08/08/2024 Performed by Esme Chen MD at [facility] REMOVAL TUBE NEPHROSTOMY Left 06/28/2024 Performed by Esme Chen MD at [facility] TONSILLECTOMY as a child UMBILICAL HERNIA REPAIR pt unsure of when URETERAL DILATION Left 06/28/2024 Performed by Esme Chen MD at [facility] Family History Problem Relation Age of Onset [...] damage causing pain and loss of function. fggmbhcu-ckbh-LA-calcium &mins (THERAGRAN-M) 9 mg iron-400 mcg tablet [...] to see a doctor that goes to [place]. Follow-up: CT Urogram with Cr prior. Offday [...] SHAHZAD Coleman 11/20/24 1308 documented in this [facility]02-19-2025 Miscellaneous Notes* Telephone Encounter - Esme Chen MD - 09/11/2024 7:47 AM EST Patient had left ureteral stent removal today after previous ureteroscopy. Please have her follow up with SHAHZAD Landaverde in 2 months with a renal ultrasound. Thanks. documented in this [facility]02-19-2025 Telephone encounter Note* Telephone Encounter - Esme Chen MD - 09/11/2024 7:47 AM EST Patient had left ureteral stent removal today after previous ureteroscopy. Please have her follow up with SHAHZAD Landaverde in 2 months with a renal ultrasound. Thanks. [facility] [employer] [id number] Miscellaneous Notes* Telephone Encounter - Esme Chen MD - 08/09/2024 4:46 PM EST Patient had left ureteroscopy with stone treatment on 08/08. She needs to get a CT which I ordered scheduled at [facility] in the near future and based on these results, I will schedule her for3rd stage ureteroscopy or stent removal. Thanks. * Telephone Encounter - Ina Thompson CMA - 08/09/2024 4:[address] Chen. [facility] for the pt to call central scheduling to get that CT scheduled. Also sent the pt a [employer] message. documented in this encounterTriHealth McCull[facility]01-17-2025 Telephone encounter Note* Telephone Encounter - Esme Chen MD - 08/09/2024 4:46 PM EST Patient had left ureteroscopy with stone treatment on 08/08. She needs to get a CT which I ordered scheduled at [facility] in the near future and based on these results, I will schedule her for3rd stage ureteroscopy or stent removal. Thanks. [facility]01-17-2025 Telephone encounter Note* Telephone Encounter - Ina Thompson CMA - 08/09/2024 4:[address] Chen. [facility] for the pt to call central scheduling to get that CT scheduled. Also sent the pt a [employer] message. [facility]12-31-2024 History and physical note* Tanya Perea, CARO-LEACH RUNNER - 07/23/2024 10:30 AM EST PRE-OPERATIVE HISTORY [...] was seen in the emergency room at [facility]. She was then transferred to [place]. In a review of the record, she [...] to urinate. Not In System Ref Prov fjyeztmu-kuvn-SQ-calcium &mins (THERAGRAN-M) 9 mg iron-400 mcg tablet [...] past Migraines 07/23/2024 6x year Septic shock ([facility]) 05/21/2024 Visual impairment glasses Past Surgical History: Procedure Laterality Date CYSTOSCOPY INSERTION STENT URETER Left 06/28/2024 Performed by Esme Chen MD at [facility] CYSTOSCOPY RETROGRADE PYELOGRAM Left 06/28/2024 Performed by Esme Chen MD at [facility] HYSTERECTOMY age 42's INGUINAL HERNIA REPAIR x2 pt unsure of date JOINT REPLACEMENT Bilateral pt unsure of when KIDNEY STONE SURGERY 2017 I had kidney stones blasted LASER HOLMIUM URETEROSCOPY RENAL STONES < OR=1CM; STONE BASKET EXTRACTION Left 06/28/2024 Performed by Esme hCen MD at [facility] REMOVAL TUBE NEPHROSTOMY Left 06/28/2024 Performed by Esme Chen MD at [facility] TONSILLECTOMY as a child UMBILICAL HERNIA REPAIR pt unsure of when URETERAL DILATION Left 06/28/2024 Performed by Esme Chen MD at [facility] Family History Problem Relation Age of Onset [...] Social History Narrative 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 She was then transferred to [place]. In a review of the record, she [...] to urinate. Not In System Ref Prov uhtgtmrj-bcxb-AG-calcium &mins (THERAGRAN-M) 9 mg iron-400 mcg tablet [...] past Migraines 07/23/2024 6x year Septic shock ([facility]) 05/21/2024 Visual impairment glasses Past Surgical History: Procedure Laterality Date CYSTOSCOPY INSERTION STENT URETER Left 06/28/2024 Performed by Esme Chen MD at [facility] CYSTOSCOPY RETROGRADE PYELOGRAM Left 06/28/2024 Performed by Esme Chen MD at [facility] HYSTERECTOMY age 42's INGUINAL HERNIA REPAIR x2 pt unsure of date JOINT REPLACEMENT Bilateral pt unsure of when KIDNEY STONE SURGERY 2017 I had kidney stones blasted LASER HOLMIUM URETEROSCOPY RENAL STONES < OR=1CM; STONE BASKET EXTRACTION Left 06/28/2024 Performed by Esme Chen MD at [facility] REMOVAL TUBE NEPHROSTOMY Left 06/28/2024 Performed by Esme Chen MD at [facility] TONSILLECTOMY as a child UMBILICAL HERNIA REPAIR pt unsure of when URETERAL DILATION Left 06/28/2024 Performed by Esme Chen MD at [facility] Family History Problem Relation Age of Onset [...] Social History Narrative 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 Report to the Entrance B. Check in at the information desk the surgery. The waiting room located on the second floor. If you have any questions prior to surgery, please call Pre-Admission Clinic at [phone] between 7:30 am and 4:30 pm Monday through Monday. If you have questions the morning of surgery, please call the Pre-op Department at [phone]. Notify your SURGEON if you develop any [...] piercings ,hair extensions that contain metal, nail malagasy, make-up, and contact lens. You may brush [...] RIGHTS AND RESPONSIBILITIES As a patient at [facility], you have the right to: Receive medical care and be informed of who is taking care of you Be treated with dignity and respect Have a family member/senior account representative of choice and your physician notified of your admission Receive information and actively participate in decisions about your care and treatment Refuse care, treatment and services Decide who may provide your support and speak for you Access voodoo and spiritual services Participate in ethical issues [...] of hospital charges and payment methods Patient/patient senior account representative responsibilities are to: Provide information about health status to facilitate care, treatment and services Follow the treatment, plan, keep appointments and speak up when you do not understand the plan Respect the rights of other patients and healthcare personnel Follow organizational rules and regulations that support quality care and a safe environment Fulfill financial obligations as promptly as possible documented in this [facility]12-07-2024 Miscellaneous Notes* Telephone Encounter - Esme Chen MD - 06/29/2024 10:36 PM EST Patient had left ureteroscopy with holmium laser lithotripsy of distal ureteral stone with me on 06/28/2024. Needs to be scheduled for cystoscopy with left ureteroscopy and holmium laser lithotripsy of renal stone with stent exchange, 1.5 hours, [facility] next available with me. Need CVAC or steerable access sheath (ClearPetra) available. Urine culture 1 week before. Thanks. documented in this [facility]12-07-2024 Telephone encounter Note* Telephone Encounter - Esme Chen MD - 06/29/2024 10:36 PM EST Patient had left ureteroscopy with holmium laser lithotripsy of distal ureteral stone with me on 06/28/2024. Needs to be scheduled for cystoscopy with left ureteroscopy and holmium laser lithotripsy of renal stone with stent exchange, 1.5 hours, [facility] next available with me. Need CVAC or steerable access sheath (ClearPetra) available. Urine culture 1 week before. Thanks. [facility]11-22-2024 Instructions* Pre-Procedure Instructions - Regi Rivera RN - 06/14/2024 11:30 AM EST Your surgery/procedure is scheduled at [facility] on 06/28/24 at 1 pm Arrival Time 11 am [facility] Address: [address] [place] [address] Park in P1 Parking lot located on [facility]. Report to the Entrance B. Check in at the information desk the surgery. The waiting room located on the second floor. If you have any questions prior to surgery, please call Pre-Admission Clinic at [phone] between 7:30 am and 4:30 pm Monday through Monday. If you have questions the morning of surgery, please call the Pre-op Department at [phone]. Notify your SURGEON if you develop any [...] piercings ,hair extensions that contain metal, nail malagasy, make-up, and contact lens. You may brush [...] RIGHTS AND RESPONSIBILITIES As a patient at [facility], you have the right to: Receive medical care and be informed of who is taking care of you Be treated with dignity and respect Have a family member/senior account representative of choice and your physician notified of your admission Receive information and actively participate in decisions about your care and treatment Refuse care, treatment and services Decide who may provide your support and speak for you Access voodoo and spiritual services Participate in ethical issues [...] of hospital charges and payment methods Patient/patient senior account representative responsibilities are to: Provide information about health status to facilitate care, treatment and services Follow the treatment, plan, keep appointments and speak up when you do not understand the plan Respect the rights of other patients and healthcare personnel Follow organizational rules and regulations that support quality care and a safe environment Fulfill financial obligations as promptly as possible [facility]11-22-2024 Miscellaneous Notes* Pre-Procedure Instructions - Regi Rivera RN - 06/14/2024 11:30 AM EST Your surgery/procedure is scheduled at [facility] on 06/28/24 at 1 pm Arrival Time 11 am [facility] Address: [address] [place] [address] Park in [address] Parking lot located on [facility]. Report to the Entrance B. Check in at the information desk the surgery. The waiting room located on the second floor. If you have any questions prior to surgery, please call Pre-Admission Clinic at [phone] between 7:30 am and 4:30 pm Monday through Monday. If you have questions the morning of surgery, please call the Pre-op Department at [phone]. Notify your SURGEON if you develop any [...] piercings ,hair extensions that contain metal, nail malagasy, make-up, and contact lens. You may brush [...] RIGHTS AND RESPONSIBILITIES As a patient at [facility], you have the right to: Receive medical care and be informed of who is taking care of you Be treated with dignity and respect Have a family member/senior account representative of choice and your physician notified of your admission Receive information and actively participate in decisions about your care and treatment Refuse care, treatment and services Decide who may provide your support and speak for you Access voodoo and spiritual services Participate in ethical issues [...] of hospital charges and payment methods Patient/patient senior account representative responsibilities are to: Provide information about health status to facilitate care, treatment and services Follow the treatment, plan, keep appointments and speak up when you do not understand the plan Respect the rights of other patients and healthcare personnel Follow organizational rules and regulations that support quality care and a safe environment Fulfill financial obligations as promptly as possible documented in this encounterTriHealth [facility] Evaluation note* Diagnosis Onset Date Resolution Status Admit Date Elevated liver function tests acuteNovember 2023 2:12pmSepsisacuteNovember 2023 2:12pm [facility] Work Phone: [phone]) 978-684411-04-2024 Miscellaneous Notes* Telephone Encounter - SENA Vidal - 05/27/2024 1:19 PM EST Audra from [facility] is calling because there are no orders [...] her vm is full. documented in this encounterTriHealth [facility]24 Telephone encounter Note* Telephone Encounter - SENA Vidal - 05/27/2024 1:19 PM EST Audra from [facility] is calling because there are no orders for dressing changes, bag changes,etc. Are you the one to do this for the pt? [email or web address] [id number] Telephone encounter Note* Telephone Encounter - Esme Chen MD - 05/27/2024 1:19 PM EST Dressing change weekly, flush with 10 mL sterile saline as needed for no drainage, no bag change for now. Thanks. [employer] Work Phone: [phone] Telephone encounter Note* Telephone Encounter - SENA Vidal - 05/27/2024 1:19 PM EST I tried calling Audra back, , and her vm is full. [facility] [employer] [id number] Progress note* Significant Event - Disha Mckeon RN - 05/26/2024 3:50 PM EST Leaving with to car currently [facility] [employer] [id number] Miscellaneous Notes* Significant Event - Disha Mckeon RN - 05/26/2024 3:50 PM EST Leaving with to car currently * Plan of Care - Disha Mckeon RN - 05/26/2024 2:47 PM EST Problem: Pain Goal: Patient goal is pain score less than 4, able to rest, and participant in treatment plan as appropriate Description: INTERVENTIONS: 1. Encourage patient or legal senior account representative to report early pain and ask [...] per policy 9. Teach patient or legal senior account representative interventions for comforting Outcome: Completed Note: [...] at the bedside 7. Instruct patient/ patient senior account representative about use of safety devices 8. Include patient/ patient senior account representative in decisions related to safety Outcome: [...] hygiene technique 7. Identify and instruct patient/patient senior account representative in use of appropriate isolation precautionsfor identified infection/symptoms 8. Provide and discuss with patient/patient senior account representative on educational MDRO sheet 9. Encourage and monitor nutritional status daily and consult student life coordinator if indicated 10. Implement neutropenic guidelines as needed 11. Review exposure to history of communicable disease and recent travel history on admission 12. Encourage annual influenza vaccine 13. Encourage pneumonia vaccine Outcome: Completed Note: Evaluation of progress towards goal: goal met Problem: Knowledge Deficit Goal: Patient/patient senior account representative demonstrates understanding of disease process, treatment [...] supplement as ordered 13. Collaborate with clinical student life coordinator 14. Include patient/ patient's senior account representative in decisions related to nutrition Outcome: [...] Moderate - High Risk Fall Score Description: [place] Fall Score of =/> 25 or indicated by [facility] Assessment Goal: Patient should be free from fall Description: Interventions: 1. [place] to environment 2. Hourly rounds addressing the [...] non-skid footwear 11. Teach patient and patient senior account representative to maintain environment for safety and [...] (cane, walker) within reach 19. Request patient senior account representative bring adaptive equipment/mobility aids from home or obtain and provide as needed 20. Consult pharmacy regarding effects of med's affecting mobility, cognition, and alternatives 21. Obtain physician order for PT if risk factors associated with mobility are present 22. Obtain physician order for OT as appropriate 23. Utilize diversional activities 24. Educate patient and patient senior account representative how to maintain a safe environment during visitationtimes (notify nurse prior to leaving bedside) 25. Consider appropriateness of medical or non-medical administrative technician 26. Set up voiding schedule as appropriate (every 2 hours) Outcome: Completed Note: Evaluation of progress towards goal: goal met * Discharge Planning Note - Melissa Jones - 05/26/2024 2:11 PM EST DISCHARGE PLANNING NOTE CRF sent to [address]- [place] (P# ; F# ); [place] (P#[phone] ; F# [phone]) use [facility] office and [employer] [facility], [place], [place] formerly [facility] - (P# ; F# ) * Discharge Planning Note - Sakina Wooten RN - 05/26/2024 1:59 PM EST DISCHARGE PLANNING NOTE Patient is ready for discharge. Tasked RC to send CRF to [address] [facility]. CN contacted [facility] to confirm patient is discharging today, spoke with Jacey. They will reachout to patient to arrange delivery of medication/supplies. [address] is scheduled for a SOC tomorrow between 12-pm. RN updated. - Sakina Wooten RN 05/26/24 2:01 PM * Plan of Care - Delilah Becerra RN - 05/26/2024 2:29 AM EST Problem: Pain Goal: Patient goal is pain score less than 4, able to rest, and participant in treatment plan as appropriate Description: INTERVENTIONS: 1. Encourage patient or legal senior account representative to report early pain and ask [...] per policy 9. Teach patient or legal senior account representative interventions for comforting Outcome: Progressing Note: [...] at the bedside 7. Instruct patient/ patient senior account representative about use of safety devices 8. Include patient/ patient senior account representative in decisions related to safety Outcome: [...] hygiene technique 7. Identify and instruct patient/patient senior account representative in use of appropriate isolation precautionsfor identified infection/symptoms 8. Provide and discuss with patient/patient senior account representative on educational MDRO sheet 9. Encourage and monitor nutritional status daily and consult student life coordinator if indicated 10. Implement neutropenic guidelines as [...] cold sores. Problem: Knowledge Deficit Goal: Patient/patient senior account representative demonstrates understanding of disease process, treatment [...] supplement as ordered 13. Collaborate with clinical student life coordinator 14. Include patient/ patient's senior account representative in decisions related to nutrition Outcome: [...] be free from fall Description: Interventions: 1. [place] to environment 2. Hourly rounds addressing the [...] non-skid footwear 11. Teach patient and patient senior account representative to maintain environment for safety and [...] (cane, walker) within reach 19. Request patient senior account representative bring adaptive equipment/mobility aids from home or obtain and provide as needed 20. Consult pharmacy regarding effects of med's affecting mobility, cognition, and alternatives 21. Obtain physician order for PT if risk factors associated with mobility are present 22. Obtain physician order for OT as appropriate 23. Utilize diversional activities 24. Educate patient and patient senior account representative how to maintain a safe environment during visitationtimes (notify nurse prior to leaving bedside) 25. Consider appropriateness of medical or non-medical administrative technician 26. Set up voiding schedule as appropriate [...] Description: INTERVENTIONS: 1. Encourage patient or legal senior account representative to report early pain and ask [...] per policy 9. Teach patient or legal senior account representative interventions for comforting Outcome: Progressing Note: [...] at the bedside 7. Instruct patient/ patient senior account representative about use of safety devices 8. Include patient/ patient senior account representative in decisions related to safety Outcome: [...] hygiene technique 7. Identify and instruct patient/patient senior account representative in use of appropriate isolation precautionsfor identified infection/symptoms 8. Provide and discuss with patient/patient senior account representative on educational MDRO sheet 9. Encourage and monitor nutritional status daily and consult student life coordinator if indicated 10. Implement neutropenic guidelines as needed 11. Review exposure to history of communicable disease and recent travel history on admission 12. Encourage annual influenza vaccine 13. Encourage pneumonia vaccine Outcome: Progressing Note: Evaluation of progress towards goal: Infection prevention measures put into place. Will continue to monitor for signs and symptoms of infection. Problem: Knowledge Deficit Goal: Patient/patient senior account representative demonstrates understanding of disease process, treatment [...] being looked over by charge nurse. * PT/OT/INDUCTION FURNACE OPERATOR - Cristino Hugo, PT - 05/24/2024 2:50 [...] Medical History: Diagnosis Date Migraines Septic shock ([facility]) 05/21/2024 Past Surgical History: Procedure [...] Equipment: gait belt, RW, percutaneous drain, guevara Telemetry/Clerk General: Yes Oxygen Used: room air Other: Fall [...] Goal: Patient will perform transfers with Modified Ebony Dates: Start: 05/24/24 Expected End: 06/22/24 Description: Goal Description: Disciplines: PT Physical Therapy Care Plan (Resolved) There are no resolved problems. Principal Problem: Septic shock (CMS-HCC) * PT/OT/INDUCTION FURNACE OPERATOR - Melissa Andrade OTR/Alicia - 05/24/2024 2:35 PM EDT Occupational Therapy [...] decline resulting from admit as transfer from [place] on 05/21/24 with fever, chills and general weakness. 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 Prior Function Lives With: Spouse (retired [...] Patient will perform home management with Modified Ebony Dates: Start: 05/24/24 Expected End: 06/14/24 Description: [...] no resolved problems. Principal Problem: Septic shock ([facility]) * Discharge Planning Note - [...] work faxed prescription- wait insurance coverage and [facility]- wait acceptance. Wait PT/OT evaluations and recommendations. CN will continue to follow and is available should any further needs arise. - KALINA SANON 05/24/24 12:20 PM [facility] denied referral. Social work sent referral to [facility] and [facility]. [facility] is not sure if they are available to start services until Monday as they will need insurance approval. Waiting [facility] to inform of start of care on Monday. Social work spoke with [facility] to provide update and they will deliver [...] Referral sent [place] [facility] [facility] - (P# ; F# ); [facility] [place] [facility] - (P# ; F# ) * Plan of Care - Jovany Wynne RN - 05/23/2024 8:52 AM EDT Problem: Pain Goal: Patient goal is pain score less than 4, able to rest, and participant in treatment plan as appropriate Description: INTERVENTIONS: 1. Encourage patient or legal senior account representative to report early pain and ask [...] per policy 9. Teach patient or legal senior account representative interventions for comforting Outcome: Progressing Note: [...] at the bedside 7. Instruct patient/ patient senior account representative about use of safety devices 8. Include patient/ patient senior account representative in decisions related to safety Outcome: [...] hygiene technique 7. Identify and instruct patient/patient senior account representative in use of appropriate isolation precautionsfor identified infection/symptoms 8. Provide and discuss with patient/patient senior account representative on educational MDRO sheet 9. Encourage and monitor nutritional status daily and consult student life coordinator if indicated 10. Implement neutropenic guidelines as [...] infection/ sepsis. Problem: Knowledge Deficit Goal: Patient/patient senior account representative demonstrates understanding of disease process, treatment [...] Score of =/> 25 or indicated by [facility] Assessment Goal: Patient should be free from fall Description: Interventions: 1. [place] to environment 2. Hourly rounds addressing the [...] non-skid footwear 11. Teach patient and patient senior account representative to maintain environment for safety and [...] (cane, walker) within reach 19. Request patient senior account representative bring adaptive equipment/mobility aids from home or obtain and provide as needed 20. Consult pharmacy regarding effects of med's affecting mobility, cognition, and alternatives 21. Obtain physician order for PT if risk factors associated with mobility are present 22. Obtain physician order for OT as appropriate 23. Utilize diversional activities 24. Educate patient and patient senior account representative how to maintain a safe environment during visitationtimes (notify nurse prior to leaving bedside) 25. Consider appropriateness of medical or non-medical administrative technician 26. Set up voiding schedule as appropriate [...] Description: INTERVENTIONS: 1. Encourage patient or legal senior account representative to report early pain and ask [...] per policy 9. Teach patient or legal senior account representative interventions for comforting Outcome: Progressing Note: [...] at the bedside 7. Instruct patient/ patient senior account representative about use of safety devices 8. Include patient/ patient senior account representative in decisions related to safety Outcome: [...] Description: INTERVENTIONS: 1. Encourage patient or legal senior account representative to report early pain and ask [...] per policy 9. Teach patient or legal senior account representative interventions for comforting 05/22/2024 1633 by [...] at the bedside 7. Instruct patient/ patient senior account representative about use of safety devices 8. Include patient/ patient senior account representative in decisions related to safety Outcome: [...] hygiene technique 7. Identify and instruct patient/patient senior account representative in use of appropriate isolation precautionsfor identified infection/symptoms 8. Provide and discuss with patient/patient senior account representative on educational MDRO sheet 9. Encourage and monitor nutritional status daily and consult student life coordinator if indicated 10. Implement neutropenic guidelines as [...] Score of =/> 25 or indicated by [facility] Assessment Goal: Patient should be free from fall Description: Interventions: 1. [place] to environment 2. Hourly rounds addressing the [...] non-skid footwear 11. Teach patient and patient senior account representative to maintain environment for safety and [...] (cane, walker) within reach 19. Request patient senior account representative bring adaptive equipment/mobility aids from home or obtain and provide as needed 20. Consult pharmacy regarding effects of med's affecting mobility, cognition, and alternatives 21. Obtain physician order for PT if risk factors associated with mobility are present 22. Obtain physician order for OT as appropriate 23. Utilize diversional activities 24. Educate patient and patient senior account representative how to maintain a safe environment during visitationtimes (notify nurse prior to leaving bedside) 25. Consider appropriateness of medical or non-medical administrative technician 26. Set up voiding schedule as appropriate [...] 05/22/2024 2:06 PM EDT DISCHARGE PLANNING NOTE [employer] Supervisor met with patient, introduced self, and explained role. Patient is alert and oriented, sitting in lazy boy chair, cooperative. Patient educated on safe discharge plan. Pt admitted 05/21/2024 with Septic shock ([facility]) [A41.9, R65.21] Elevated troponin [R79.89] per chart review. Consults: Urology Discharge Barriers per Daily Transition Rounds and chart review: clears, IV ATB, IV Pepcid, new neph tube, guevara Past Medical History: Diagnosis Date Migraines Septic shock ([facility]) 05/21/2024 Prior to admission patient was living [...] final transition needs. PCP: OLMAN SHOEMAKER MD Pharmacy:[facility] PCP and pharmacy confirmed with [...] 60 Thank you, Angella PIERCE, RN Clinical Networking Specialist Clinical Documentation Integrity Email: [email or web address] Normal Hours of availability 7:00am to 3:30pm, [...] ICU team to transfer primary service to [facility]. I have received a verbalhand off from the ICU team. [facility] will assume care as primary team, once [...] tachypneic?. Thank you, Angella PIERCE, RN Clinical Networking Specialist Clinical Documentation Integrity Email: [email or web address] Normal Hours of availability 7:00am to 3:30pm, [...] Description: INTERVENTIONS: 1. Encourage patient or legal senior account representative to report early pain and ask [...] per policy 9. Teach patient or legal senior account representative interventions for comforting Outcome: Progressing Note: [...] hygiene technique 7. Identify and instruct patient/patient senior account representative in use of appropriate isolation precautionsfor identified infection/symptoms 8. Provide and discuss with patient/patient senior account representative on educational MDRO sheet 9. Encourage and monitor nutritional status daily and consult student life coordinator if indicated 10. Implement neutropenic guidelines as [...] pressure cuff appropriate to size of patient, cardiac rehab nurse, pulse oximetry, ETCO2, and reversal agents are available. An emergency resuscitation cart, advanced resuscitation medications and defibrillator are availablein the immediate area. documented in this encounterTriHealth [facility]11-[facility] History of Present illness Narrative* Vaishali Alberts [...] Recommendations: Reportedly CT of the abdomen from [facility] with left-sided stone with significant hydronephrosis (awaiting report) Status post left percutaneous nephrostomy tube placement Blood cultures from [facility] May 19, 2024, reportedly not yet finalized, preliminary with E coli and Enterobacterale Urine culture from [facility] on May 21, 2024 finalized with [...] Component Value Units Date/Time Blood culture #1 [[id number]] Collected: 05/23/24 1020 Specimen: Blood Updated: 05/26/24937 Specimen Notes SUBOPTIMAL VOLUME OF BLOOD COLLECTED, RESULTS MAY BE AFFECTED. Culture NO GROWTH 3 DAYS Blood culture #2 [[id number]] Collected: 05/23/24 1020 Specimen: Blood Updated: 05/26/24 0939 Specimen Notes SUBOPTIMAL VOLUME OF BLOOD COLLECTED, RESULTS MAY BE AFFECTED. Culture NO GROWTH 3 DAYS Urine culture [[id number]] Collected: 05/21/24 1525 Specimen: Urine from Guevara Catheter Specimen Updated: 05/22/24 1420 Culture <10,000 ORGANISMS/ML NORMAL URO GENITAL ALANNAH Blood culture #2 [[id number]] (Abnormal) Collected: 05/21/24 1523 Specimen: Blood Updated: 05/24/24 0705 Culture ESCHERICHIA COLI FOR SUSCEPTIBILITY, SEE PREVIOUS REPORT. Blood culture #1 [[id number]] (Abnormal) (Susceptibility) Collected: 05/21/24 1520 Specimen: Blood [...] Q8H OSVALDO meloxicam, 15 mg, oral, Daily evnbsvwg-rgmq-UR-calcium &mins, 1 tablet, oral, Daily Consult PICC nurse - Midline, , , Once AND sodium chloride, 10 mL, intravenous, Q12H AND sodium chloride, 10 mL, intravenous, PRN AND sodium chloride, 20 mL, intravenous, PRN valACYclovir, 500 mg, oral, BID Thank you for allowing us to participate in the care of this patient. Please call with questions. Vaishali Alberts APRN, LEACH RUNNER [phone] This note was completed using a voice investigation clerk system. Every effort was made to ensure accuracy. However, inadvertent computerized investigation clerk errors may be present. Vaishali Alberts APRN-LEACH RUNNER 05/26/24 0934 * Tabby Iqbal MD - 05/25/2024 1:10 PM EDT [facility] PROGRESS NOTE 05/25/2024 Patient Name: [...] was made toensure accuracy; however, inadvertent computerized investigation clerk errors may be present. Electronically signed by: TABBY IQBAL MD 05/25/2024 1:11 PM * Tammy Boyd APRN-LEACH RUNNER - 05/25/2024 8:30 AM EDT Images from [...] Recommendations: Reportedly CT of the abdomen from [facility] with left-sided stone with significant hydronephrosis (awaiting report) Status post left percutaneous nephrostomy tube placement Blood cultures from [facility] May 19, 2024, reportedly not yet finalized, preliminary with E coli and Enterobacterals Urine culture from [facility] on May 21, 2024 finalized with [...] Component Value Units Date/Time Blood culture #1 [[id number]] Collected: 05/23/24 1020 Specimen: Blood Updated: 05/25/24 1038 Specimen Notes SUBOPTIMAL VOLUME OF BLOOD COLLECTED, RESULTS MAY BE AFFECTED. Culture NO GROWTH 2 DAYS Blood culture #2 [[id number]] Collected: 05/23/24 1020 Specimen: Blood Updated: 05/25/24 1039 Specimen Notes SUBOPTIMAL VOLUME OF BLOOD COLLECTED, RESULTS MAY BE AFFECTED. Culture NO GROWTH 2 DAYS Urine culture [[id number]] Collected: 05/21/24 1525 Specimen: Urine from Guevara Catheter Specimen Updated: 05/22/24 1420 Culture <10,000 ORGANISMS/ML NORMAL URO GENITAL ALANNAH Blood culture #2 [[id number]] (Abnormal) Collected: 05/21/24 1523 Specimen: Blood Updated: 05/24/24 0705 Culture ESCHERICHIA COLI FOR SUSCEPTIBILITY, SEE PREVIOUS REPORT. Blood culture #1 [[id number]] (Abnormal) (Susceptibility) Collected: 05/21/24 1520 Specimen: Blood [...] Q8H OSVALDO meloxicam, 15 mg, oral, Daily qhopoedy-smok-KR-calcium &mins, 1 tablet, oral, Daily Consult PICC [...] after 1700, and for urgent matters call [phone], if no answer call [phone] This note was completed using a voice investigation clerk system. Every effort was made to ensure accuracy. However, inadvertent computerized investigation clerk errors may be present. STEPHEN Mills 05/25/24 1508 STEPHEN Mills 05/25/24 1901 * Lesvia Andrews MD - 05/24/2024 2:10 PM EDT 05/24/2024 Patient Name: Sharri Murillo : 1955 Problem List: Principal Problem: Septic shock ([facility]) Assessment and Plan: Septic shock secondary to [...] get CT abdomen pelvis official results from [facility] and cultures from [facility] CT of the abdomen showed left-sided stone with significant hydronephrosis as per H and P note Status post left percutaneous nephrostomy tube placement Final blood culture May 21, 2024 with E coli Repeat blood cultures collected on 1031 preliminary negative to this date and time [...] 138/90 Pulse: 78 68 69 70 Resp: 19 24 (!) 27 Temp: TempSrc: SpO2: 94% 94% [...] 7 days Lab Units 05/24/24 0434 05/23/2425705/22/24 0200 WBC X10E9/L 22.0* 39.0* 28.1* HEMOGLOBIN g/dL 11.5* 11.7 10.6* HEMATOCRIT % 34.2* 34.6* 31.3* PLATELETS X10E9/L 103* 91* 60* Results from last 7 days Lab Units 05/24/2452905/23/24201405/23/24 1021 05/23/2425705/22/24 0200 POTASSIUM mmol/L 3.7 3.7 3.5 3.7 4.2 [...] from last 7 days Lab Units 05/24/24 0505/23/2425705/22/24 0200 ALK PHOS U/L 200* 256* 202* ALT U/L 53* 65* 79* AST U/L 56* 48* 90* No results found for: CRP No results found for: SEDRATE Cultures: Microbiology Results Procedure Component Value Units Date/Time Blood culture #1 [[id number]] Collected: 05/23/24 1020 Specimen: Blood Updated: 05/24/24 1038 Specimen Notes SUBOPTIMAL VOLUME OF BLOOD COLLECTED, RESULTS MAY BE AFFECTED. Culture NO GROWTH 1 DAY Blood culture #2 [[id number]] Collected: 05/23/24 1020 Specimen: Blood Updated: 05/24/24 1039 Specimen Notes SUBOPTIMAL VOLUME OF BLOOD COLLECTED, RESULTS MAY BE AFFECTED. Culture NO GROWTH 1 DAY Urine culture [[id number]] Collected: 05/21/24 1525 Specimen: Urine from Guevara Catheter Specimen Updated: 05/22/24 1420 Culture <10,000 ORGANISMS/ML NORMAL URO GENITAL ALANNAH Blood culture #2 [[id number]] (Abnormal) Collected: 05/21/24 1523 Specimen: Blood Updated: 05/24/24 0705 Culture ESCHERICHIA COLI FOR SUSCEPTIBILITY, SEE PREVIOUS REPORT. Blood culture #1 [[id number]] (Abnormal) (Susceptibility) Collected: 05/21/24 1520 Specimen: Blood [...] was then dilated to accommodate a 10 [place] nephrostomy tube. The catheter was secured with a single 0 Prolene suture. Dressing applied. Patient tolerated all procedures well and there were no complications. FINDINGS: Severe left hydronephrosis, fluoroscopic images demonstrated appropriate positioning of nephrostomy tube within the collecting system IMPRESSION: Successful image guided placement of left 10 [place] percutaneous nephrostomy tube PLAN: Maintained to gravity [...] Q8H OSVALDO meloxicam, 15 mg, oral, Daily ezittnco-sbci-OJ-calcium &mins, 1 tablet, oral, Daily Thank you for allowing us to participate in the care of this patient. Please call with questions. This note was completed using a voice investigation clerk system. Every effort was made to ensure accuracy. However, inadvertent computerized investigation clerk errors may be present. 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 Examined while resting in the chair. present at bedside. Patient states she is havingno pain and no shortness of breath. Denies nausea vomiting. Endorses good appetite. No fevers reported overnight. Hospital Problem: Principal Problem: Septic shock ([facility]) OBJECTIVE: General Appearance: Comfortable, in no acute [...] resps easy and non-labored. Room air Neuro: GRANT, WELSH, awake and appropriately following commands GI: Abd [...] days Lab Units 05/23/2425705/22/24 0200 05/21/24 1310 AST U/L 48* 90* 189* ALT [...] Procedure Component Value Units Date/Time Urine culture [[id number]] Collected: 05/21/24 152 Specimen: Urine from Guevara Catheter Specimen Updated: 05/22/24 1420 Culture <10,000 ORGANISMS/ML NORMAL URO GENITAL ALANNAH Blood culture #2 [[id number]] Collected: 05/21/24 1523 Specimen: Blood Updated: 05/22/24 0609 Culture GRAM NEGATIVE RODS CULTURE IN PROGRESS Blood culture #1 [[id number]] (Abnormal) Collected: 05/21/24 1520 Specimen: Blood Updated: 05/23/24 0918 Culture ESCHERICHIA COLI CULTURE IN PROGRESS Escherichia coli detected by PCR. No resistance genes detected by PCR. Results from last 7 days Lab Units 05/23/24 0258 05/22/24 0200 05/21/24 1320 05/21/24 1310 BEDSIDE GLUCOSE mg/dL -- -- 114* -- GLUCOSE mg/dL 93 116* -- 110* Microbiology Results Procedure Component Value Units Date/Time Urine culture [[id number]] Collected: 05/21/24 1525 Specimen: Urine from Guevara Catheter Specimen Updated: 05/22/24 1420 Culture <10,000 ORGANISMS/ML NORMAL URO GENITAL ALANNAH Blood culture #2 [[id number]] Collected: 05/21/24 1523 Specimen: Blood Updated: 05/22/24 0609 Culture GRAM NEGATIVE RODS CULTURE IN PROGRESS Blood culture #1 [[id number]] (Abnormal) Collected: 05/21/24 1520 Specimen: Blood Updated: 05/23/24 0918 Culture ESCHERICHIA COLI CULTURE IN PROGRESS Escherichia coli detected by PCR. No resistance genes detected by PCR. Lines/Drains Peripheral IV 05/21/24 Left Antecubital (Active) Line Status No blood return;Saline locked;Flushed;Alcohol sponge cap changed;Connections checked/tightened 05/23/24 0800 Site Assessment Clean;Dry;Intact 05/23/24 08 Dressing Type Occlusive;Transparent 05/23/24 0800 Dressing Status Clean;Dry;Intact 05/23/24 0800 Dressing Intervention Initial dressing 05/21/241999 Dressing Change Due (Non-Gauze) 05/28/24 05/21/241999 Peripheral IV 05/21/24 Right Wrist (Active) Line Status No blood return;Saline locked;Flushed;Alcohol sponge cap changed;Connections checked/tightened 05/23/24 0300 Site Assessment Clean;Intact;Dry 05/23/24 030 Dressing Type Occlusive;Transparent 05/23/24 0300 Dressing Status [...] Jaya 05/23/24 08 Urine Appearance Hazy 05/23/24 0800 Output (mL) 200 mL 05/23/24 0500 Urinary Catheter 05/21/24 (Active) Catheter Status Patent 05/23/24 08 Site Assessment Clean;Skin intact 05/23/24 08 Collection Container Standard drainage bag/container 05/23/24 08 Securement Method Securing device (Describe) 05/23/24 0800 Tamper Evident Seal Intact Yes 05/23/24 08 Reason for Continuing Strict I&O in critically ill patient 05/23/24 08 Urine Color Jaya 05/22/24 2300 Urine Appearance Hazy 05/22/24 2300 Output (mL) 450 mL 05/23/24 0800 I/O last 3 completed shifts: In: 3675.8 [I.V.:1848.9; IV Piggyback:1826.9] Out: 1929 [Urine:1929] I/O this shift: In: - Out: 450 [...] patient at the bedside Ryan Benitez MD [facility] / Critical [facility] Pager: [phone] Office : [phone] Fax : [phone] This note was created with the assistance of a speech-recognition program. Although the intention is to generate a document that actually reflects the content of the visit, no guarantees can be provided that every mistake has been identified and corrected by editing. STEPHEN Krueger 05/23/24 1014 * Suzanne Reagan DO - 05/22/2024 10:32 AM EDT Images [...] -- 79 24 95 % -- -- 05/21/24 2100 -- -- -- 84 (!) 30 95 [...] Murillo Age - 68 y.o. - 1955 N - [id number] [facility] # - [id number] Date of Admission - 05/21/2024 12:52 PM [...] Procedure Component Value Units Date/Time Urine culture [[id number]] Collected: 05/21/241802 Specimen: Urine Updated: 05/21/24 180 Blood culture #2 [[id number]] Collected: 05/21/24 1523 Specimen: Blood Updated: 05/22/24 0609 Culture GRAM NEGATIVE RODS CULTURE IN PROGRESS Blood culture #1 [[id number]] (Abnormal) Collected: 05/21/24 152 Specimen: Blood Updated: 05/22/24 0608 Culture GRAM NEGATIVE RODS CULTURE IN PROGRESS Escherichia coli detected by PCR. No resistance genes detected by PCR. Lab Results Component Value Date INR 1.2 (H) 05/21/2024 PROTIME 14.1 (H) 05/21/2024 Radiology (See actual reports for details) Ryan Benitez MD [facility] / Critical Care Pager: [phone] Office : [phone] Fax : [phone] 48:31 AM * Lance Bell [facility] - 05/21/2024 3:24 PM EDT [facility] Department of Pharmacy Pharmacy-Physician Communication Pt name: Sharri Murillo Room: A9 Dear Dr. Ryan Benitez MD Your patient is currently taking the medication famotidine, which is primarily excreted renally. From your patient s renal function: Results from last 7 days Lab Units 05/21/24 1310 CREATININE mg/dL 1.50* Estimated Creatinine Clearance: 37.2 mL/min (A) (by C-G formula based on SCr of 1.5 mg/dL (H)). Famotidine regimen was renally-adjusted per [facility] policy Thank you for your consideration. If we can offer more assistance, please fee free to call us at [phone]. Lance Bell PharmD, [facility] * Lance Bell RP - 05/21/2024 3:20 PM EDT [facility] Pharmacy-Physician Communication Pt name: Sharri [...] 1.5 mg/dL (H)). Zosyn was dosed per [facility] policy Thank you for your consideration. If we can offer more assistance, please fee free to call us at x [phone]. Lance Bell PharmD, [facility] documented in this encounterTri[facility] Plan of care note * Plan of Care - Disha Mckeon RN - 05/26/2024 2:47 PM EST Problem: Pain Goal: Patient goal is pain score less than 4, able to rest, and participant in treatment plan as appropriate Description: INTERVENTIONS: 1. Encourage patient or legal senior account representative to report early pain and ask [...] per policy 9. Teach patient or legal senior account representative interventions for comforting Outcome: Completed Note: [...] at the bedside 7. Instruct patient/ patient senior account representative about use of safety devices 8. Include patient/ patient senior account representative in decisions related to safety Outcome: [...] hygiene technique 7. Identify and instruct patient/patient senior account representative in use of appropriate isolation precautionsfor identified infection/symptoms 8. Provide and discuss with patient/patient senior account representative on educational MDRO sheet 9. Encourage and monitor nutritional status daily and consult student life coordinator if indicated 10. Implement neutropenic guidelines as needed 11. Review exposure to history of communicable disease and recent travel history on admission 12. Encourage annual influenza vaccine 13. Encourage pneumonia vaccine Outcome: Completed Note: Evaluation of progress towards goal: goal met Problem: Knowledge Deficit Goal: Patient/patient senior account representative demonstrates understanding of disease process, treatment [...] supplement as ordered 13. Collaborate with clinical student life coordinator 14. Include patient/ patient's senior account representative in decisions related to nutrition Outcome: [...] Score of =/> 25 or indicated by [facility] Assessment Goal: Patient should be free from fall Description: Interventions: 1. [place] to environment 2. Hourly rounds addressing the [...] non-skid footwear 11. Teach patient and patient senior account representative to maintain environment for safety and [...] (cane, walker) within reach 19. Request patient senior account representative bring adaptive equipment/mobility aids from home or obtain and provide as needed 20. Consult pharmacy regarding effects of med's affecting mobility, cognition, and alternatives 21. Obtain physician order for PT if risk factors associated with mobility are present 22. Obtain physician order for OT as appropriate 23. Utilize diversional activities 24. Educate patient and patient senior account representative how to maintain a safe environment during visitationtimes (notify nurse prior to leaving bedside) 25. Consider appropriateness of medical or non-medical administrative technician 26. Set up voiding schedule as appropriate (every 2 hours) Outcome: Completed Note: Evaluation of progress towards goal: goal met [facility]11-03-2024 Progress note* Discharge Planning Note - Melissa Jones - 05/26/2024 2:11 PM EST DISCHARGE PLANNING NOTE CRF sent to [address]- [place] (P# ; F# ); [place] (P#[phone] ; F# [phone]) use [place] main office and [facility], [facility] [place] [facility] - (P# ; F# ) [facility]11-03-2024 Progress note* Discharge Planning Note - Sakina Wooten RN - 05/26/2024 1:59 PM EST DISCHARGE PLANNING NOTE Patient is ready for discharge. Tasked [facility] to send CRF to [email or web address] and [facility]. CN contacted [facility] to confirm patient is discharging today, spoke with Jacey. They will reachout to patient to arrange delivery of medication/supplies. [id number] is scheduled for a SOC tomorrow between 12-pm. RN updated. - Sakina Wooten RN 05/26/24 2:01 PM [facility]11-03-2024 Hospital course Narrative* Tabby Iqbal MD - 05/26/2024 1:22 PM EST Images from the original note were not included. DISCHARGE NOTE Demographics: Patient Name: Sharri Murillo : 1955 DATE OF ADMISSION: 05/21/2024 DATE OF DISCHARGE: 05/26/2024 DISCHARGE DIAGNOSES: Principal Problem: Septic shock ([facility]) CONSULTANTS: Consulting Providers Provider Service Specialty aMribel Zepeda MD Z Internal Medicine Infectious Disease [...] LFT weekly while on antibiotic, faxed to [place] at [phone]. IV flushes as per protocol gabapentin 100 [...] 15 mg tablet Commonly known as: MOBIC gtrchfjv-qilu-AU-calcium &mins 9 mg iron-400 mcg tablet Commonly known as: THERAGRAN-M MYRBETRIQ 50 mg tablet extended release 24 hr Generic drug: mirabegron nitrofurantoin 100 mg capsule Commonly known as: MACRODANTIN SUMAtriptan 25 mg tablet Commonly known as: IMITREX Where to Get Your Medications These medications were sent to [facility]/pharmacy #[id number] - [address] AT [place] [address] gabapentin 100 mg capsule valACYclovir 500 mg [...] was then dilated to accommodate a 10 [place] nephrostomy tube. The catheter was secured with a single 0 Prolene suture. Dressing applied. Patient tolerated all procedures well and there were no complications. FINDINGS: Severe left hydron ephrosis, fluoroscopic images demonstrated appropriate positioning of nephrostomy tube within the collecting system IMPRESSION: Successful image guided placement of left 10 [place] percutaneous nephrostomy tube PLAN: Maintained to gravity [...] Regular Texture Adult diet Follow up: Esme Chen MD [address] [facility] [id number] Follow up Follow with your original urologist to schedule stone treatment, if you desire you may schedule your procedure with [facility] if your urologist is not able to complete the procedure Olman Shoemaker MD [facility] [address] Follow up in 1 week(s) For most accurate medication list, please review the discharge medication summary. 40 minutes were spent on discharging this patient. documented in this encounterTriHealth [facility]11-[facility] Plan of care note * Plan of Care - Delilah Becerra RN - 05/26/2024 2:29 AM EST Problem: Pain Goal: Patient goal is pain score less than 4, able to rest, and participant in treatment plan as appropriate Description: INTERVENTIONS: 1. Encourage patient or legal senior account representative to report early pain and ask [...] per policy 9. Teach patient or legal senior account representative interventions for comforting Outcome: Progressing Note: [...] at the bedside 7. Instruct patient/ patient senior account representative about use of safety devices 8. Include patient/ patient senior account representative in decisions related to safety Outcome: [...] hygiene technique 7. Identify and instruct patient/patient senior account representative in use of appropriate isolation precautionsfor identified infection/symptoms 8. Provide and discuss with patient/patient senior account representative on educational MDRO sheet 9. Encourage and monitor nutritional status daily and consult student life coordinator if indicated 10. Implement neutropenic guidelines as [...] cold sores. Problem: Knowledge Deficit Goal: Patient/patient senior account representative demonstrates understanding of disease process, treatment [...] supplement as ordered 13. Collaborate with clinical student life coordinator 14. Include patient/ patient's senior account representative in decisions related to nutrition Outcome: [...] be free from fall Description: Interventions: 1. [place] to environment 2. Hourly rounds addressing the [...] non-skid footwear 11. Teach patient and patient senior account representative to maintain environment for safety and [...] (cane, walker) within reach 19. Request patient senior account representative bring adaptive equipment/mobility aids from home or obtain and provide as needed 20. Consult pharmacy regarding effects of med's affecting mobility, cognition, and alternatives 21. Obtain physician order for PT if risk factors associated with mobility are present 22. Obtain physician order for OT as appropriate 23. Utilize diversional activities 24. Educate patient and patient senior account representative how to maintain a safe environment during visitationtimes (notify nurse prior to leaving bedside) 25. Consider appropriateness of medical or non-medical administrative technician 26. Set up voiding schedule as appropriate (every 2 hours) Outcome: Progressing Note: Evaluation of progress towards goal: Pt free from fall with hourly rounding continued & maintained. 4 Ps addressed. [facility]11-02-2024 Plan of care note* Plan of Care - Kimberly Sauceda RN - 05/25/2024 4:22 AM EDT Problem: Pain Goal: Patient goal is pain score less than 4, able to rest, and participant in treatment plan as appropriate Description: INTERVENTIONS: 1. Encourage patient or legal senior account representative to report early pain and ask [...] per policy 9. Teach patient or legal senior account representative interventions for comforting Outcome: Progressing Note: [...] at the bedside 7. Instruct patient/ patient senior account representative about use of safety devices 8. Include patient/ patient senior account representative in decisions related to safety Outcome: [...] hygiene technique 7. Identify and instruct patient/patient senior account representative in use of appropriate isolation precautionsfor identified infection/symptoms 8. Provide and discuss with patient/patient senior account representative on educational MDRO sheet 9. Encourage and monitor nutritional status daily and consult student life coordinator if indicated 10. Implement neutropenic guidelines as needed 11. Review exposure to history of communicable disease and recent travel history on admission 12. Encourage annual influenza vaccine 13. Encourage pneumonia vaccine Outcome: Progressing Note: Evaluation of progress towards goal: Infection prevention measures put into place. Will continue to monitor for signs and symptoms of infection. Problem: Knowledge Deficit Goal: Patient/patient senior account representative demonstrates understanding of disease process, treatment [...] being looked over by charge nurse. [facility]11-01-2024 Progress note* PT/OT/INDUCTION FURNACE OPERATOR - Cristino Hugo, PT - 05/24/2024 2:50 [...] Equipment: gait belt, RW, percutaneous drain, guevara Telemetry/Clerk General: Yes Oxygen Used: room air Other: Fall [...] Goal: Patient will perform transfers with Modified Ebony Dates: Start: 05/24/24 Expected End: 06/22/24 Description: Goal Description: Disciplines: PT Physical Therapy Care Plan (Resolved) There are no resolved problems. Principal Problem: Septic shock ([facility]) [facility]11-01-2024 Progress note* PT/OT/INDUCTION FURNACE OPERATOR - HILLARY Art - 05/24/2024 2:35 PM EDT Occupational Therapy [...] decline resulting from admit as transfer from [place] on 05/21/24 with fever, chills and general weakness. 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 Prior Function Lives With: Spouse (retired [...] Patient will perform home management with Modified Ebony Dates: Start: 05/24/24 Expected End: 06/14/24 Description: [...] no resolved problems. Principal Problem: Septic shock ([facility]) [facility]11-01-2024 Progress note* Discharge Planning Note - KALINA [...] work task [facility] to send referral to [facility] and social work faxed prescription- wait insurance coverage and [facility]- wait acceptance. Wait PT/OT evaluations and recommendations. CN will continue to follow and is available should any further needs arise. - KALINA SANON 05/24/24 12:20 PM [facility] denied referral. Social work sent referral to [facility]. [facility] is not sure if [...] Monday. - KALINA SANON 05/24/24 4:06 PM [facility]11-01-2024 Progress note* Discharge Planning Note - Giuliana Rodriguez - 05/24/2024 11:52 AM EDT DISCHARGE PLANNING NOTE Referral sent to [facility] [place] [place] [facility] - (P# ; F# ); [facility] [place] [place] [facility] - (P# ; F# ) youmag10-31-2024 Miscellaneous Notes* Telephone Encounter - Esme Chen MD - 05/23/2024 11:02 AM EDT Please schedule patient for cystoscopy with left ureteroscopy, holmium laser lithotripsy with stentplacement, 1.5 hours, [facility] in 4-5 weeks with dc with 1 day preadmission for IV antibiotics as well as medicine consultation. Needs urine culture 1 week prior as well. Thank you. Currently admitted to [facility]. documented in this encounterTri[facility] Telephone encounter Note* Telephone Encounter - Esme Chen MD - 05/23/2024 11:02 AM EDT Please schedule patient for cystoscopy with left ureteroscopy, holmium laser lithotripsy with stentplacement, 1.5 hours, [facility] in 4-5 weeks with dc with 1 day preadmission for IV antibiotics as well as medicine consultation. Needs urine culture 1 week prior as well. Thank you. Currently admitted to [facility]. [facility] Work Phone: [phone] Consult note* Maribel Zepeda MD - 05/23/2024 9:00 AM EDTAssociated Order(s): IP CONSULT TO INFECTIOUS DISEASES Images from the original note were not included. [facility] Infectious Diseases - Initial Consult Note Sharri Murillo Admit date/time 05/21/2024 12:52 PM Today's Date and Time: 05/23/2024, 11:31 AM Impression: Sepsis E coli bacteremia Left hydronephrosis/obstructive stone Acute kidney injury Leukocytosis 39.0 Morbid obesity of the disease BMI 49.2 Non STEMI Recommendations Get CT abdomen pelvis official results from [facility] Follow-up culture results from [facility] CT of the abdomen showed left-sided stone [...] Medical History: Diagnosis Date Migraines Septic shock ([facility]) 05/21/2024 Past Surgical History: Past Surgical History: Procedure Laterality Date INGUINAL HERNIA REPAIR x2 KNEE ARTHROPLASTY Bilateral UMBILICAL HERNIA REPAIR Medications: cefTRIAXone (ROCEPHIN) IV, 2,000 mg, intravenous, Q24H gabapentin, 100 mg, oral, TID heparin (porcine), 5,000 Units, subcutaneous, Q8H [facility] Social History: Social History Socioeconomic History Marital [...] Component Value Units Date/Time Blood culture #1 [[id number]] Resulted: 05/23/24 1021 Specimen: Blood, Peripheral Draw Updated: 05/23/24 1021 Blood culture #2 [[id number]] Resulted: 05/23/24 1021 Specimen: Blood, Peripheral Draw Updated: 05/23/24 1021 Urine culture [[id number]] Collected: 05/21/24 1525 Specimen: Urine from Guevara Catheter Specimen Updated: 05/22/24 1420 Culture <10,000 ORGANISMS/ML NORMAL URO GENITAL ALANNAH Blood culture #2 [[id number]] Collected: 05/21/24 1523 Specimen: Blood Updated: 05/22/24 0609 Culture GRAM NEGATIVE RODS CULTURE IN PROGRESS Blood culture #1 [[id number]] (Abnormal) Collected: 05/21/24 1520 Specimen: Blood Updated: [...] was then dilated to accommodate a 10 Botswanan nephrostomy tube. The catheter was secured with a single 0 Prolene suture. Dressing applied. Patient tolerated all procedures well and there were no complications. FINDINGS: Severe left hydron ephrosis, fluoroscopic images demonstrated appropriate positioning of nephrostomy tube within the collecting system IMPRESSION: Successful image guided placement of left 10 Botswanan percutaneous nephrostomy tube PLAN: Maintained to gravity [...] this patient. Please call with questions. [facility] Infectious Disease Tammy Boyd APRN, CNP Preferred method of communication between 0700 and 1700 Epic chat If no response to Epic chat within 30 minutes, after 1700, and for urgent matters call [phone], if no answer call [phone] This note was completed using a voice investigation clerk system. Every effort was made to ensure accuracy. However, inadvertent computerized investigation clerk errors may be present. STEPHEN Mills 05/23/24 1159 IMaribel MD, personally performed kpvr-hv-tgav diagnostic evaluation on this patient I reviewed and performed all the whitlock component of the patient visit I reviewed FATIMAH history, exam and MDM - Maribel Zepeda MD 05/23/24 2:04 PM [facility]10-31-20[facility] Consult note* Maribel Zepeda MD - 05/23/2024 9:00 AM EDTAssociated Order(s): IP CONSULT TO INFECTIOUS DISEASES Images from the original note were not included. [facility] Infectious Diseases - Initial Consult Note Sharri Murillo Admit date/time 05/21/2024 12:52 PM Today's Date and Time: 05/23/2024, 11:31 AM Impression: Sepsis E coli bacteremia Left hydronephrosis/obstructive stone Acute kidney injury Leukocytosis 39.0 Morbid obesity of the disease BMI 49.2 Non STEMI Recommendations Get CT abdomen pelvis official results from [facility] Follow-up culture results from [facility] CT of the abdomen showed left-sided stone [...] Medical History: Diagnosis Date Migraines Septic shock ([facility]) 05/21/2024 Past Surgical History: Past [...] Component Value Units Date/Time Blood culture #1 [[id number]] Resulted: 05/23/24 1021 Specimen: Blood, Peripheral Draw Updated: 05/23/24 1021 Blood culture #2 [[id number]] Resulted: 05/23/24 1021 Specimen: Blood, Peripheral Draw Updated: 05/23/24 1021 Urine culture [[id number]] Collected: 05/21/24 1525 Specimen: Urine from Guevara Catheter Specimen Updated: 05/22/24 1420 Culture <10,000 ORGANISMS/ML NORMAL URO GENITAL ALANNAH Blood culture #2 [[id number]] Collected: 05/21/24 1523 Specimen: Blood Updated: 05/22/24 0609 Culture GRAM NEGATIVE RODS CULTURE IN PROGRESS Blood culture #1 [[id number]] (Abnormal) Collected: 05/21/24 1520 Specimen: Blood Updated: [...] was then dilated to accommodate a 10 Botswanan nephrostomy tube. The catheter was secured with a single 0 Prolene suture. Dressing applied. Patient tolerated all procedures well and there were no complications. FINDINGS: Severe left hydron ephrosis, fluoroscopic images demonstrated appropriate positioning of nephrostomy tube within the collecting system IMPRESSION: Successful image guided placement of left 10 Botswanan percutaneous nephrostomy tube PLAN: Maintained to gravity [...] after 1700, and for urgent matters call [phone], if no answer call [phone] This note was completed using a voice investigation clerk system. Every effort was made to ensure accuracy. However, inadvertent computerized investigation clerk errors may be present. STEPHEN Mills 05/23/24 1157 Maribel Gannon MD, personally performed flhc-kx-yetz diagnostic evaluation on this patient I reviewed [...] a 68 y.o. female who presented to [facility] with history of recent UTI on 05/16 [...] ureter or renal pelvis. Pt transferred to [facility] as she has required Vasopressor for hypotension. [...] Interpersonal Safety: Unknown (09/14/2023) Received from [facility] Safety & Environment Fear of Current [...] pelvis- Marked left hydro and hydroureter to [id number] UVJ stone. Possible additional proximal stone, + leftrenal stone Assessment and Plan Impression: 68 yo female with obstructing left distal ureterovesical junction stone with hydroureteronephrosis,+UTI, acute kidney injury Plan: IR consulted for left percutaneous nephrostomy tube emergently, placed and draining, culture sent Continuous supportive care, broad-spectrum antibiotics, ICU support We will need outpatient intervention of stone either here or in [place], also has left nonobstructing kidney stone No further acute urologic intervention needed at this time, will monitor - SHAHZAD LEI 05/21/24 3:04 PM Attending Attestation: I personally performed the face to face diagnostic evaluation on this patient. I have reviewed the advanced practice practitioner's history, exam, and MDM and agree with the assessment and plan as written. documented in this encounterTriHealth [facility]10-31-2024 Plan of care note * Plan of Care - Jovany Wynne RN - 05/23/2024 8:52 AM EDT Problem: Pain Goal: Patient goal is pain score less than 4, able to rest, and participant in treatment plan as appropriate Description: INTERVENTIONS: 1. Encourage patient or legal senior account representative to report early pain and ask [...] per policy 9. Teach patient or legal senior account representative interventions for comforting Outcome: Progressing Note: [...] at the bedside 7. Instruct patient/ patient senior account representative about use of safety devices 8. Include patient/ patient senior account representative in decisions related to safety Outcome: [...] hygiene technique 7. Identify and instruct patient/patient senior account representative in use of appropriate isolation precautionsfor identified infection/symptoms 8. Provide and discuss with patient/patient senior account representative on educational MDRO sheet 9. Encourage and monitor nutritional status daily and consult student life coordinator if indicated 10. Implement neutropenic guidelines as [...] infection/ sepsis. Problem: Knowledge Deficit Goal: Patient/patient senior account representative demonstrates understanding of disease process, treatment [...] Score of =/> 25 or indicated by [facility] Re[facility] Assessment Goal: Patient should be free from fall Description: Interventions: 1. [place] to environment 2. Hourly rounds addressing the [...] non-skid footwear 11. Teach patient and patient senior account representative to maintain environment for safety and [...] (cane, walker) within reach 19. Request patient senior account representative bring adaptive equipment/mobility aids from home or obtain and provide as needed 20. Consult pharmacy regarding effects of med's affecting mobility, cognition, and alternatives 21. Obtain physician order for PT if risk factors associated with mobility are present 22. Obtain physician order for OT as appropriate 23. Utilize diversional activities 24. Educate patient and patient senior account representative how to maintain a safe environment during visitationtimes (notify nurse prior to leaving bedside) 25. Consider appropriateness of medical or non-medical administrative technician 26. Set up voiding schedule as appropriate [...] patients are rounded on q1h and PRN. [facility]10-30-[facility] Plan of care note* Plan of Care - Bertrand Cleary - 05/22/2024 7:05 PM EDT Problem: Pain Goal: Patient goal is pain score less than 4, able to rest, and participant in treatment plan as appropriate Description: INTERVENTIONS: 1. Encourage patient or legal senior account representative to report early pain and ask [...] per policy 9. Teach patient or legal senior account representative interventions for comforting Outcome: Progressing Note: [...] at the bedside 7. Instruct patient/ patient senior account representative about use of safety devices 8. Include patient/ patient senior account representative in decisions related to safety Outcome: [...] of progress towards goal: RN performing pericare. [employer] [id number] Plan of care note* Plan of Care - Senia Godfrey RN - 05/22/2024 4:34 PM EDT Problem: Pain Goal: Patient goal is pain score less than 4, able to rest, and participant in treatment plan as appropriate Description: INTERVENTIONS: 1. Encourage patient or legal senior account representative to report early pain and ask [...] per policy 9. Teach patient or legal senior account representative interventions for comforting 05/22/2024 1633 by [...] at the bedside 7. Instruct patient/ patient senior account representative about use of safety devices 8. Include patient/ patient senior account representative in decisions related to safety Outcome: [...] hygiene technique 7. Identify and instruct patient/patient senior account representative in use of appropriate isolation precautionsfor identified infection/symptoms 8. Provide and discuss with patient/patient senior account representative on educational MDRO sheet 9. Encourage and monitor nutritional status daily and consult student life coordinator if indicated 10. Implement neutropenic guidelines as [...] be free from fall Description: Interventions: 1. [place] to environment 2. Hourly rounds addressing the [...] non-skid footwear 11. Teach patient and patient senior account representative to maintain environment for safety and [...] (cane, walker) within reach 19. Request patient senior account representative bring adaptive equipment/mobility aids from home or obtain and provide as needed 20. Consult pharmacy regarding effects of med's affecting mobility, cognition, and alternatives 21. Obtain physician order for PT if risk factors associated with mobility are present 22. Obtain physician order for OT as appropriate 23. Utilize diversional activities 24. Educate patient and patient senior account representative how to maintain a safe environment during visitationtimes (notify nurse prior to leaving bedside) 25. Consider appropriateness of medical or non-medical administrative technician 26. Set up voiding schedule as appropriate [...] patients are rounded on q1h and PRN. youmag10-30-2024 Progress note* Discharge Planning Note - KALINA Sanon - 05/22/2024 2:06 PM EDT DISCHARGE PLANNING NOTE Steam Distribution Supervisor met with patient, introduced self, and explained role. Patient is alert and oriented, sitting in lazy boy chair, cooperative. Patient educated on safe discharge plan. Pt admitted 05/21/2024 with Septic shock ([facility]) [A41.9, R65.21] Elevated troponin [R79.89] per chart review. Consults: Urology Discharge Barriers per Daily Transition Rounds and chart review: clears, IV ATB, IV Pepcid, new neph tube, guevara Past Medical History: Diagnosis Date Migraines Septic shock ([facility]) 05/21/2024 Prior to admission patient was living [...] final transition needs. PCP: OLMAN SHOEMAKER MD Pharmacy:[facility] PCP and pharmacy confirmed with [...] questions. - KALINA SANON 05/22/24 2:07 PM youmag10-30-2024 Progress note* Query Response - Ryan Benitez [...] 60 Thank you, Angella PIERCE, RN Clinical Networking Specialist Clinical Documentation Integrity Email: [email or web address] Hours of availability 7:00am to 3:30pm, Monday to Monday CDI RESPONSE TEXT: Thrombocytopenia due to sepsis Query created by: Angella Gilbert on 05/22/2024 6:01 AM Electronically signed by: Ryan Benitez MD 05/22/2024 12:00 PM [facility]10-30-20[facility] Plan of care note* Plan of Care - Maria Morton MD - 05/22/2024 9:34 AM EDT [facility] Transfer Accept Note I received a request from the ICU team to transfer primary service to [facility]. I have received a verbalhand off from the ICU team. [facility] will assume care as primary team, once [...] to floor if continued to be stable [employer] Work Phone: 1(177) 918-760310-30-2024 Progress note* Query Response - Ryan Benitez [...] tachypneic?. Thank you, Angella PIERCE, RN Clinical Networking Specialist Clinical Documentation Integrity Email: [email or web address] Hours of availability 7:00am to 3:30pm, Monday to Monday CDI RESPONSE TEXT: Acute respiratory failure due to sepsis Query created by: Angella Gilbert on 05/22/2024 6:08 AM Electronically signed by: Ryan Benitez MD 05/22/2024 8:35 AM youmag10-29-2024 Plan of care note* Plan of Care - Bertrand Cleary - 05/21/2024 9:59 PM EDT Problem: Pain Goal: Patient goal is pain score less than 4, able to rest, and participant in treatment plan as appropriate Description: INTERVENTIONS: 1. Encourage patient or legal senior account representative to report early pain and ask [...] per policy 9. Teach patient or legal senior account representative interventions for comforting Outcome: Progressing Note: [...] hygiene technique 7. Identify and instruct patient/patient senior account representative in use of appropriate isolation precautionsfor identified infection/symptoms 8. Provide and discuss with patient/patient senior account representative on educational MDRO sheet 9. Encourage and monitor nutritional status daily and consult student life coordinator if indicated 10. Implement neutropenic guidelines as needed 11. Review exposure to history of communicable disease and recent travel history on admission 12. Encourage annual influenza vaccine 13. Encourage pneumonia vaccine Outcome: Progressing Note: Evaluation of progress towards goal: Pt on ATBs. RN monitoring vital signs. [facility] Procedure note* Serafin Ott RN - 05/21/2024 4:04 PM EDT Site Preparation: Site Marked: yes Other: left back Prepped with: Chloraprep - with dry time of 3 minutes prior to draping the patient Site Clipped: no Patient Draped: yes [facility]10-29-20[facility] Procedure note* Serafin Ott RN - 05/21/2024 4:04 PM EDT Site Preparation: Site Marked: yes Other: left back Prepped with: Chloraprep - with dry time of 3 minutes prior to draping the patient Site Clipped: no Patient Draped: yes * STEPHEN Cobian - 05/21/2024 2:25 PM EDTAssociated Order(s): Central Line Insertion Post-Procedure Diagnose(s): Septic shock ([facility]) Images from the original note were not [...] to verify the correct patient, procedure, equipment, whanau support worker and site/side marked as required. Fire Risk [...] Interventions: none Proceduralist: Milton Garcia CNP 1st Bag Checker: Samantha Whitley CNP ESTIMATED BLOOD LOSS: Less [...] an easily collapsible vessel using ultrasound. A 7.0-lithuanian 16 cm triple lumen catheter was inserted [...] Arterial Line Insertion Post-Procedure Diagnose(s): Septic shock ([facility]) PREOPERATIVE DIAGNOSIS: Septic shock Urosepsis Acute hypoxic [...] to verify the correct patient, procedure, equipment, whanau support worker and site/side marked as required. Fire Risk [...] STEPHEN Cobian 05/21/24 1423 documented in this encounterTriHealth [facility]ull[facility]10-29-2024 Nurse procedure note* Sedation Documentation - Serafin Ott RN - 05/21/2024 3:58 PM EDT Basic respiratory resuscitation equipment including Ambu bags, airway devices, suction, oxygen, blood pressure cuff appropriate to size of patient, cardiac rehab nurse, pulse oximetry, ETCO2, and reversal agents are available. An emergency resuscitation cart, advanced resuscitation medications and defibrillator are availablein the immediate area. [facility] [employer] [id number] Consult note* Esme Chen MD - 05/21/2024 2:35 PM EDTAssociated Order(s): IP CONSULT TO UROLOGY Urology Consultation Patient: Sharri Murillo Date of : 1955 CHIEF COMPLAINT: left ureteral stone, sepsis HISTORY OF PRESENT ILLNESS: The patient is a 68 y.o. female who presented to [facility] with history of recent UTI on 05/16 [...] ureter or renal pelvis. Pt transferred to [facility] as she has required Vasopressor for hypotension. [...] Interpersonal Safety: Unknown (09/14/2023) Received from [facility] Safety & Environment Fear of Current [...] pelvis- Marked left hydro and hydroureter to [id number] UVJ stone. Possible additional proximal stone, + leftrenal stone Assessment and Plan Impression: 68 yo female with obstructing left distal ureterovesical junction stone with hydroureteronephrosis,+UTI, acute kidney injury Plan: IR consulted for left percutaneous nephrostomy tube emergently, placed and draining, culture sent Continuous supportive care, broad-spectrum antibiotics, ICU support We will need outpatient intervention of stone either here or in [place], also has left nonobstructing kidney stone No further acute urologic intervention needed at this time, will monitor - SHAHZAD LEI 05/21/24 3:04 PM Attending Attestation: I personally performed the face to face diagnostic evaluation on this patient. I have reviewed the advanced practice practitioner's history, exam, and MDM and agree with the assessment and plan as written. [facility]10-29-[facility] Procedure note* STEPHEN Cobian - 05/21/2024 2:25 PM EDTAssociated Order(s): Central Line Insertion Post-Procedure Diagnose(s): Septic shock ([facility]) Images from the original note were not [...] to verify the correct patient, procedure, equipment, whanau support worker and site/side marked as required. Fire Risk [...] Interventions: none Proceduralist: Milton Garcia CNP 1st Bag Checker: Samantha Whitley CNP ESTIMATED BLOOD LOSS: Less [...] an easily collapsible vessel using ultrasound. A 7.0-lithuanian 16 cm triple lumen catheter was inserted [...] Same as above STEPHEN Cobian 05/21/24 1427 [facility]10-29-2024 Procedure note* STEPHEN Cobian - 05/21/2024 2:19 PM EDTAssociated Order(s): Arterial Line Insertion Post-Procedure Diagnose(s): Septic shock ([facility]) PREOPERATIVE DIAGNOSIS: Septic shock Urosepsis Acute hypoxic [...] to verify the correct patient, procedure, equipment, whanau support worker and site/side marked as required. Fire Risk [...] Same as above STEPHEN Cobian 05/21/24 1423 [facility]10-29-[facility] History and physical note* Ryan Benitez MD - 05/21/2024 1:35 PM EDT Consultation Note [facility] Referring physician: Fabien Rivera Patient - Sharri Murillo Age - 68 y.[facility] 1955 [id number] Date of Admission - 05/21/2024 12:52 PM [...] hydronephrosis. Patient was given antibiotics and transferred [facility] for further management. Seen and examined [...] titration of care by a Critical Care Welding Instructor. Failure to do so may result in further organ system failure, imminent deterioration, or . Ryan Benitez MD [facility] Physicians Pulmonary and Sleep Pulmonary / Critical Care Pager: [phone] Office : [phone] Fax : [phone] 05/21/24 1:35 PM [facility]10-29-[facility] History and physical note* Ryan Benitez MD - 05/21/2024 1:35 PM EDT Consultation Note [facility] Referring physician: Fabien Rivera Patient - Sharri Murillo Age - 68 y.[facility] 1955 [id number] Date of Admission - 05/21/2024 12:52 PM [...] hydronephrosis. Patient was given antibiotics and transferred [facility] for further management. Seen and examined [...] titration of care by a Critical Care Welding Instructor. Failure to do so may result in further organ system failure, imminent deterioration, or . Ryan Benitez MD [facility] Pulmonary / Critical Care Pager: [phone] Office : [phone] Fax : [phone] 05/21/24 1:35 PM documented in this encounterTriHealth [facility]06-[facility] Hospital Discharge instructions Patient Education 01/16/2024 12:15:59 [...] include: ?8 oz (237 mL) of milk, yymldoy-iofiotbwvsyj-lzvya milk, and calcium- fortifiedfruit juice. Calcium-fortified means [...] ?Spinach (cooked), rhubarb, beets, sweet potatoes, and Lebanese chard. ?Peanuts. ?Potato chips, lithuanian fries, and baked potatoes with skin on. ?Nuts and nut products. ?Chocolate. If you regularly take a diuretic medicine, make sure to eat at least 1 or 2 servings of fruits or vegetables that are high in potassium each day. These include: ?Avocado. ?Banana. ?[place], prune, carrot, or tomato juice. ?Baked potato. [...] magnesium, fish oil, or vitamin B6. Take yxwh-jsj-jeoptbp and prescription medicines only as told by [...] Casseroles. Pizza. Lasagna. Frozen meals. Potato chips. Botswanan fries. The items listed above may not [...] provider. Document Revised: 10/20/2022 Document Reviewed: 10/20/2022 [facility] Patient Education 2022 [employer] LLC.. Follow Up Care 08/10/2022 15:34:44 With:THUY CAMPBELL PA-C, URL Address: [place] [address] When: Unknown [facility] evaluation + Plan note Future Appointments Appointment Date:01/10/2024 03:00:00 PM Scheduled Provider:THUY CAMPBELL PA-C Location:[facility] Appointment Type:URO Office Visit Diagnostic Tests Pending * Urine [facility] noteNo InformationNort Varolii Other Evaluation noteNo assessment information available [facility] Work Phone: Evaluation note* Diagnosis Onset Date Resolution Status Influenza B noneactiveBronchitisacute [facility] Work Phone: Evaluation note* Diagnosis Onset Date Resolution Status Hypertension acuteScreening mammogram for breast canceracute [facility] Work Phone: Evaluation note* Diagnosis Calculus of ureterovesical junction (UVJ)- Primary Hypokalemia- Primary Hypopotassemia Calculus of ureterovesical junction (UVJ) Calculus of ureterovesical junction (UVJ) documented in this encounter [facility] SystemEvaluation note* Diagnosis Flank pain- Primary Abdominal pain, unspecified site [facility]* Diagnosis Septic shock (CMS-HCC)- Primary Septic shock ([facility]-H[facility]) E coli bacteremia Nephrolithiasis Calculus of kidney documented in this encounter [facility] SystemEvaluation note* Diagnosis Calculus of ureterovesical junction (UVJ)- Primary Septic shock (CMS-HCC) Bacteremia- Primary Septic shock (CMS-HCC) Calculus of ureterovesical junction (UVJ) documented in this encounter [facility] SystemEvaluation note* Diagnosis Calculus of ureterovesical junction (UVJ)- Primary documented in this encounter [facility] SystemEvaluation note* Diagnosis Kidney stones- Primary Calculus of kidney Pelvicaliectasis Other specified disorder of kidney and ureter Kidney stone Calculus of kidney documented in this encounter [facility] SystemEvaluation note* Diagnosis Kidney stones- Primary Calculus of kidney Pelvicaliectasis Other specified disorder of kidney and ureter Kidney stone Calculus of kidney 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 Kidney stone Calculus of kidney documented in this encounter [facility] SystemEvaluation note* Diagnosis Kidney stones- Primary Calculus of kidney Pelvicaliectasis Other specified disorder of kidney and ureter Kidney stone Calculus of kidney 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 documented in this encounter [facility] SystemEvaluation note* Diagnosis Onset Date Resolution Status Admit Date Left lumbar radiculopathy acuteOctober 2024 10:06am [facility] Work Phone: History general Narrative - Reported* Type Description Date Medical History HTN Surgical HistoryhysterectomySurgical Historygallbladder removalSurgical History herniaHospitalization Historysee above [facility] Other Hospital course Narrative No data available for this section [facility] No data available for this section [facility]* Attachments The following attachments cannot be sent through Care Everywhere. * E. coli Infection (Surinamese) documented in this encounter[facility] SystemInstructionsNot on file documented in this encounterUniversity [facility] SystemInstructionsNot on file documented in this encounterUniversity [facility] SystemInstructionsNot on file documented in this encounterUniversity [facility] SystemInstructionsNot on file documented in this encounterUniversity [facility] SystemInstructionsNot on file documented in this encounterProFayette [facility] SystemInstructionsNot on file documented in this encounterProF[facility] SystemInstructionsNot on file documented in this encounterUniversity [facility]als [facility] SystemInstructions* Attachments The following attachments cannot be sent through Care Everywhere. * Kidney Stone Diet (Surinamese) documented in this encounterProF[facility] SystemInstructionsNot on file documented in this encounterUniversity [facility]als [facility] SystemInstructionsNot on file documented in this encounterUniversity Hospitals [facility] SystemProgress note No data available for this section [facility] (narrative)* Misc (Routine) - Pending ReviewSpecialtyDiagnoses / ProceduresReferred By ContactReferred To Contact Procedures Adult diet Tabby Iqbal MD [address] [place] [address] Phone: tel: fax: Referral IDStatusReasonStart DateExpiration DateVisits RequestedVisits [id number] [address]ocldu[address] [facility] for referral (narrative)No reason for referral information availablePremier Health Work Phone: Reason for visit Narrative* Auth/Cert (Routine) SpecialtyDiagnoses / ProceduresReferred By ContactReferred To Contact Diagnoses Septic shock (CMS-HCC) Elevated troponin Septic Shock Ryan Benitez MD [address], [address] [place] [address] Phone: tel: fax: Referral IDStatusReasonStart DateExpiration DateVisits RequestedVisits [id number] [facility] Summary Purpose Family History No Family History [...] Advance Directives No August 4:03pm Date ActivatedDate JetlvurowncGfitszck10/5/2024 7:46 PM06/28/2024 9:02 PMDate ActivatedDate YtlkgfacmzeXioaivhg70/29/2024 1:36 PM05/26/2024 7:56 PMDate ActivatedDate EdrzmtiicyrShdkydea28/5/2024 7:46 PM06/28/2024 9:02 PMDate ActivatedDate VraxhrwxglmRvuxdqdn67/29/2024 1:36 PM05/26/2024 7:56 PM Advance Directive Response Recorded Date/ Time Advance Directives No August 3:03pm Date ActivatedDate TptukmrqyvhYeaduqgj43/29/2024 1:36 PMDate ActivatedDate KrruirhfyqmGitwbdxy59/29/2024 1:36 PMDate ActivatedDate InactivatedComments 05/21/2024 1:36 PM05/26/2024 7:56 PMDate ActivatedDate InactivatedComments 05/21/2024 1:36 PM05/26/2024 7:56 PM Advance Directive Response Recorded Date/ Time Advance Directives No May 19, 2025 9:44am Chief Complaint and Reason for Visit Chief [...] Admit Date Screening April 08, 2025 8:27am Chief Complaint Admit Date Screening April 08, 2025 8:27am Pain in leg at night May 20, 2025 10:06am Reason for Visit Admit Date Left lumbar radiculopathy May 20, 2025 10:06am Additional Source Comments INFORMATION SOURCE (unrecogn ized section and content) DATE CREATED AUTHOR 02/27/2021 [facility] DATE CREATED AUTHOR AUTHOR'S ORGANIZ ATION 08/09/2022 [facility] DATE CREATED AUTHOR AUTHOR'S ORGANIZ ATION 09/12/2024 [facility] DATE CREATED AUTHOR AUTHOR'S ORGANIZ ATION 12/22/2024 [facility] DATE CREATED AUTHOR AUTHOR'S ORGANIZ ATION 02/09/2025 [facility] DATE CREATED AUTHOR AUTHOR'S ORGANIZ ATION 04/09/2025 [facility] DATE CREATED AUTHOR AUTHOR'S ORGANIZ ATION 04/18/2025 [facility] DATE CREATED AUTHOR AUTHOR'S ORGANIZ ATION 06/05/2025 [facility] Patient Care team informatio n (unrecognized section and content) Team Status: Active Member Role Status Dates Olman Shoemaker MD Primary Care Provider Active Team Status: Inactive Member Role Status Dates Olman Shomeaker MD Primary Care Provider Active Start: April 08, 2025 End: April 08, 2025[facility] ProviderActiveStart: April 08, 2025 End: April 08, 2025 Team Status: Active Member Role Status Dates Olman Shoemaker MD Primary Care Provider Active Start: May 21, 2024 Senia Jalloh , DOAttending ProviderActiveStart: May 21, 2024 Team Status: Active Member Role Status Dates Olman Shoemaker MD Primary Care Provider Active Start: May 21, 2024 Edenilson Mccray , DOAttending ProviderActiveStart: May 21, 2024 Team Status: Active Member Role Status Dates Olman Shoemaker MD Primary Care Provider Active Start: May 27, 2024 Bryanna Homer , CMAAttending ProviderActiveStart: May 27, 2024 Team Status: Inactive [...] Active Start: October 14, 2023 End: October 13makayla Avelar APRNAtrahul ProviderActiveStart: October 14, 2023 End: October 14, 2023 Team Status: Inactive Member Role Status Dates Olman Shoemaker MD Primary Care Provider Active Start: October 25, 2023 End: October 25, 2023Thuy Chaney APRN FOOD AND BEVERAGE ASSISTANT-CAttending ProviderActive Start: October 25, 2023 End: October 25, 2023 Team Status: Inactive Member Role Status Dates Olman Shoemaker MD Primary Care Provide r, Attending Provider Active Start: May 16, 2024 End: May 16, 2024Team MemberRelationshipSpecialtyStart DateEnd Date Olman Shoemaker MD [address] [id number] PCP - GeneralFamily Bjqfmulx59/29/24Team MemberRelationshipSpecialtyStart Date End Date Olman Shoemaker MD [address] [place] [address] PCP - GeneralFamily Psivptnd03/29/24Team MemberRelationshipSpecialtyStart Date End Date Olman Shoemaker MD [address] [facility] [place] [address] PCP - GeneralFamily Hmllxyki74/29/24Team MemberRelationshipSpecialtyStart Date End Date Olman Shoemaker MD [address] [facility] [place] [place] [address] PCP - GeneralFamily Vbfgmvmk21/29/24Team MemberRelationshipSpecialtyStart Date End Date Olman Shoemaker MD [address] [facility] [place] [place] [address] PCP - GeneralFamily Hwytcyaw53/29/24Team MemberRelationshipSpecialtyStart Date End Date Olman Shoemaker MD [address] [place] [address] PCP - GeneralFamily Jfjjdzjs64/29/24Team MemberRelationshipSpecialtyStart Date End Date Olman Shoemaker MD [address] [facility] [place] [place] [address] PCP - GeneralFamily Pbrhlqqm66/29/24Team MemberRelationshipSpecialtyStart Date End Date Olman Shoemaker MD [address] [place] [place] [address] PCP - GeneralFamily Nubnazrw63/29/24Team MemberRelationshipSpecialtyStart Date End Date Olman Shoemaker MD [address] [place] [place] [address] PCP - GeneralFamily Ylododez95/29/24Team MemberRelationshipSpecialtyStart Date End Date Olman Shoemaker MD [address] [place] [address] PCP - GeneralHenry County Health Centerly Hzsaffcj12/29/24 Team Status: Active Member Role/Relationship Status Dates Olman Shoemaker MD Primary Care Provider Active Team Status: Inactive Member Role/Relationship Status Dates Olman Shoemaker MD Primary Care Provider Active Start: April 08, 2025 End: April 08, 2025[facility] HospitalAttending ProviderActiveStart: April 08, 2025 End: April 08, 2025 Team Status: Inactive Member Role/Relationship Status Dates Olman Shoemaker MD Primary Care Provider Active Start: May 20, 2025 End: May 20, 2025Olman Shoemaker MDAttatrium health [facility] ProviderActiveStart: May 20, 2025 End: May 20, 2025 REASON FOR VISIT (unrecogniz ed section and content) VwefyfPlhxidpiLgozla-shFazwtePwoogbqmEyamkt-rl Goals (unrecognized section and content) Goals may [...] * 1152 (New Bag - Provider: Disha Mckeon, MINNIE) * 1222 (Stop Bag - Provider: Disha Mckeon, MINNIE) * 1102 (New Bag - Provider: Disha Mckeon, MINNIE) * 1132 (Stop Bag - Provider: Disha Mckeon RN) cholecalciferol (vitamin D3) tablet 2,000 Units 2,000 Units, oral, Daily, First dose on Mon05/23/24 at 2100 * 0938 (Given - Provider: Disha Mckeon, RN) * 0927 (Given - Provider: Disha [...] * 0509 (Given - Provider: Kimberly Sauceda, MINNIE) * 1336 (Given - Provider: Disha Mckeon RN) * 2102 (Given - Provider: Delilah Becerra, MINNIE) * 0556 (Given - Provider: Delilah Becerra, MINNIE) * 1400 (Not Given - Provider: Disha Mckeon RN - Reason: Other) * 2200 (Due) heparin (porcine) injection 5,000 Units 5,000 Units, subcutaneous, Every 8 hours scheduled, First dose on Mon05/22/24 at 0600, Look-alike/sound-alike medication - verify indication for use. Observe for bleeding. * 0535 (Given - Provider: Keysha Woody RN) * 1439 (Given - Provider: Lance Aaron, MINNIE) * 2137 (Given - Provider: Kimberly Sauceda, MINNIE) * 0508 (Given - Provider: Kimberly Sauceda, MINNIE) * 1337 (Given - Provider: Disha Mckeon RN) * 2103 (Given - Provider: Delilah Becerra, MINNIE) * 0556 (Given - Provider: Delilah Becerra, MINNIE) * 1400 (Not Given - Provider: Disha Mckeon RN - Reason: Patient/family refused) * 2200 (Due) meloxicam (MOBIC) tablet 15 mg 15 mg, oral, Daily, First dose on Mon05/23/24 at 2100 * 0938 (Given - Provider: Disha Mckeon RN) * 0927 (Given - Provider: Disha Mckeon, MINNIE) harpefkq-qhlt-VR-calcium &mins (THERAGRAN-M) 9 mg iron-400 mcg tablet [...] * 2102 (Given - Provider: Delilah Becerra, MINNIE) * 0927 (Given - Provider: Disha Mckeon [...] pain scale 1-3, headaches, Starting on Mon05/21/24 [id number], Indications: fever, pain bisacodyL (DULCOLAX) suppository 10 [...] * 0637 (New Bag - Provider: Keysha Woody, MINNIE) * 0837 (Stop Bag - Provider: Lance Aaron, RN) * 0507 (New Bag - Provider: Kimberly Sauceda, RN) * 0707 (Stop Bag - Provider: Disha Mckeon, MINNIE) * 0433 (New Bag - Provider: Delilah Becerra, MINNIE) * 0633 (Due: Stop Bag - Provider: Delilah Becerra, MINNIE) magnesium sulfate IVPB 4000 mg/100 mL in [...] 0507 (See Alternative - Provider: Kimberly Sauceda, RN) * 0707 (See Alternative - Provider: Disha Mckeon, RN) * 0433 (See Alternative - Provider: Delilah Becerra RN) oxyCODONE (ROXICODONE) immediate release tablet 5 mg [...] RN) * 0509 (Given - Provider: Kimberly Sauceda, MINNIE) potassium chloride (KAYCIEL) 20 mEq/15 mL solution [...] * 0509 (See Alternative - Provider: Kimberly Sauceda, MINNIE) potassium chloride IVPB 10 mEq/100 mL in [...] intravenous, As needed, line care, Starting on Mon05/25/24 at 1212, PICC line. Administer 10mL to [...] pain scale 1-3, headaches, Starting on Mon05/21/24 as9412, Indications: fever, pain Or acetaminophen (TYLENOL) 650 [...] BE BASED ON THE PRIMARY CLINICAL RECORDS. [facility]. provides no warranty or guarantee of the accuracy or completeness of information in this document.
== END 2025-06-12 09:28 | disposition home or self-care (01) ==
LOC: MRI 09:33
PROVIDERS: PCP Family Medicine; Visit Provider Anesthesiology
DX: M48.062 Spinal stenosis, lumbar region with neurogenic claudication (principal); M51.369 Other intervertebral disc degeneration, lumbar region without mention of lumbar back pain or lower extremity pain
CPT/HCPCS: 72148

== ENCOUNTER 2025-06-18 11:00 | Outpatient (OUT) | payer MEDICARE, SELFPAY ==
--- OUTSIDE RECORDS SUMMARY | 2025-06-18 11:03 | XMS_ITS | Clinical Summary ---
Author Organization [facility] Address [address] [place] [address] Care Team Providers Care Supervisor Electrolytic Tinning Name Role Phone Unavailable Primary Care Provider Unavailabl e Social History Tobacco UseTypesPacks/DayYears UsedDateSmoking Tobacco: Never AssessedUT Safety & EnvironmentAnswerDate RecordedFear of Current or Ex-PartnerNot on file 09/14/2023Emotionally AbusedNot on file09/14/2023hysically AbusedNot on file 09/14/2023Sexually AbusedNot on file09/14/2023hysically or Sexually AbusedNot on file09/14/2023CommentsUnknownSex and Gender InformationValueDate RecordedSex Assigned at BirthNot on fileLegal WhzWxuvih84/29/2022 10:32 PM EDT Gender IdentityNot on fileSexual OrientationNot on file Last Filed Vital Signs Vital SignReadingTime TakenCommentsBlood Bsuzbdqi354/7308 1:49 PM EDT Nppmb989903/10/2021 1:49 PM MVXEkrazmgckup64.6 ??C (97.9 ??F)03/10/2021 1:49 PM EDTRespiratory Rate--Oxygen Saturation--Inhaled Oxygen Concentration--Hrystk936 kg (320 lb)03/10/2021 1:47 PM REGImhmlc329.7 cm (5' 8 )03/10/2021 1:47 PM EDT Body Mass Index48.66003/10/2021 1:47 PM EDT Plan of Treatment Health MaintenanceDue DateLast DoneCommentsCT Slhwnqdqeugk01/20/1958Colonoscopy 1957Colorectal Cancer Kgdckzcyg31/20/1958FIT-DNA1957FIT1957 FOBT1957 0856Qrbgdzjxbusou07/20/1958Depression Ukpzfqlzu16/20/1970Adult Tetanus 12/11/19798696Gaxolrqhl59/20/1998Pneumococcal Vaccine: 50+ Years (1 of 1 - PCV) 12/11/2007Zoster Vaccines (1 of 2)12/11/2007Fall Risk Fxtahrhnl56/20/2023COVID- 19 Vaccine (1 - 2024- season)2025Influenza Vaccine [...]
--- OUTSIDE RECORDS SUMMARY | 2025-06-18 11:03 | XMS_ITS | Clinical Summary ---
Author Organization [employer] tem Address [id number] [place] [address] Care Team Providers Care Long Winder Tender Name Role Phone Hannah Lynn MD Primary Care Provider [phone] Allergies Active AllergyReactionsCriticalityNoted DateCommentsSulfa (Sulfonamide Antibiotics)KkaauAkn62/03/2024 Medications MedicationSigDispense QuantityRefillsLast FilledStart DateEnd DateStatus aspirin [...] by mouth daily Indications: visible water retention.10/14/2023ctive cgcclmvo-cfqw-TF-calcium &mins (THERAGRAN-M) 9 mg iron-400 mcg tablet [...] bedtime.5Active Active Problems ProblemNoted DateDiagnosed DateMineral metabolism bukhqtlk27/10/2025 Overview (02/05/2025): ==== 02/05/2025 ==== 24 urine [...] see a doctor that goes to [place]. Calculus of ureterovesical junction (UVJ)05/30/2024Septic shock05/21/2024 Immunizations ImmunizationAdministration DatesNext DueZoster Vaccine Kjvyvwfbzuq16/17/2023, 02/07/2023 Family History Medical HistoryRelationNameCommentsNephrolithiasisBrother 1CancerFatherProstate cancerFatherDiabetesMotherPeripheral [...] (1 standard drink = 0.6 oz pure alcohol)[facility] UtilitiesAnswerDate RecordedIn the past 12 months [...] or more drinks on one occasion?Never06/27/2024HQ-2AnswerDate RecordedTotal Xfcmh99208/28/2023RAPARE - TransportationAnswerDate RecordedIn the past 12 months, [...] as a part of a household?No06/27/2024hildcareAnswer Date DgdzcuqaLumxtxvzeZjohomi54/13/2019EmploymentAnswerDate RecordedEmployment Umngbow0001/03/2019Hunger ScreeningAnswerDate RecordedWithin the past 12 months we worried whether our food would run out before we got money to buy more.Never True02/05/2025Within the past 12 months the food we bought just didn't last and we didn't have money to get more.Never True02/05/2025Purpose - LifeAnswerDate RecordedPurpose and direction in kmozCwvaoaw60/11/2021CommentsNoSex and Gender InformationValueDate RecordedSex Assigned at BirthNot on fileLegal Sex Ybtjka8105/08/2018 4:09 PM EDTGender IdentityNot on fileSexual OrientationNot on file Last Filed Vital Signs Vital SignReadingTime TakenCommentsBlood Usflwjld422/9902/05/2025 12:14 PM EDT Pt. states they had a difficult drive to this office.Zrxwo932602/05/2025 12:14 PM PEOCflorvsrfvj01.8 ??C (98.3 ??F)09/11/2024 7:06 AM ESTRespiratory Rate18 09/11/2024 7:47 AM ESTOxygen Hgdzcqphua02%09/11/2024 7:47 AM ESTInhaled Oxygen Concentration--Rudmot540.4 kg (314 lb)02/05/2025 12:14 PM TTMKtsxhc507.2 cm (5' 7 )02/05/2025 12:14 PM EDTBody Mass Index49.18002/05/2025 12:14 PM EDT Plan of Treatment DateTypeDepartmentCare Team (Latest Contact Info)Hkryqzuplop62/27/2026 1:00 PM EDTOffice Visit [facility] [address] [place] [address] [place] [address] Omar Preston MD [facility] [place] [address] Health MaintenanceDue DateLast DoneCommentsAdult BMI Follow Up Plan12/11/1975 DTaP,Tdap and Td Vaccines (1 - Tdap)1976RSV ( or age 60+ yrs) (1 - Risk 60-74 years 1-dose series)2017Fall Risk Ucrawwybe68/20/2023OVID-19 Vaccine (2 - season)/03/2021Influenza Nmtpkmh7203/24/2025 Depression Pjhgenjtd53/dult BMI Wkryknxvi77/ Tobacco Bppghdprv31/Zoster (Shingles) VaccineCompleted 06/09/2023, 02/07/2023 Goals GoalPatient Goal TypeAssociated ProblemsRecent ProgressPatient-Stated?Author Return Home Tess Peterson, RN Note: Evaluation of progress towards goal: safe transition home with home care and support. Medical Devices ExplantedTypeAreaManufacturerDevice IdentifierShelf Expiration DateModel / Serial / LotStent Uret 6fr 26cm 2 Pgtl Crv Rdpq Pstnr Mfl [facility] - [id number] Implanted:Qty: 1 on 06/28/2024 by Ronaldo Chen MD at [facility] Explanted:Qty: 1 on 08/08/2024 by [facility]: UreterCook Medical Yihtzbrqfvkn56/23/[id number] / / [id number]:NO STRINGSStent Uret 6fr 26cm 2 Pgtl Crv Rdpq Pstnr Mfl [facility] [id number] Implanted:Qty: 1 on 08/08/2024 by Ronaldo Chen MD at [facility] Explanted:Qty: 1 on 09/11/2024 by [facility] Hospitalft: [employer] Kiyautjpdvmh62/07/[id number] / / [id number] Insurance Advance Directives * Full Code (Latest Code Status on File) Date ActivatedDate QigkapgzdapWaxrtnxd23/5/2024 7:46 PM06/28/2024 9:02 PM * Full Code Date ActivatedDate HkcwpydnygtIolttavo65/29/2024 1:36 PM05/26/2024 7:56 PM Care Teams Team MemberRelationshipSpecialtyStart DateEnd Date Hannah Lynn MD [address] [place] [address] PCP - GeneralFamily Gqgsfflx24/29/24
--- OUTSIDE RECORDS SUMMARY | 2025-06-18 11:03 | XMS_ITS | Clinical Summary ---
Author Organization [facility] Address [address] [place] [address] Care Team Providers Care Setter Cold Rolling Machine Name Role Phone Unavailable Primary Care Provider Unavailabl e Social History Tobacco UseTypesPacks/DayYears UsedDateSmoking Tobacco: Never Assessed CommentsUnknownSex and Gender InformationValueDate RecordedSex Assigned at Not on fileLegal JtqUojinr95/15/2023 7:31 PM EDTGender IdentityNot on fileSexual OrientationNot on file Last Filed Vital Signs Vital SignReadingTime TakenCommentsBlood Pressure--Pulse--Temperature-- Respiratory Rate--Oxygen Saturation--Inhaled Oxygen Concentration--Fywrbj012 kg (289 lb)06/18/2018 12:00 PM QHZOlljdy577.7 cm (5' 8 )06/18/2018 12:00 PM ESTBody Mass Index43.9406/18/2018 12:00 PM EST Plan of Treatment Not on file
--- OUTSIDE RECORDS SUMMARY | 2025-06-18 11:07 | XMS_ITS | CCD ---
Author Organization [facility] Care Team Providers Care [place] Traffic Checker Name Role Phone SIDNEY PAGAN Attending Unavailable OLMAN SHOEMAKER Primary Care Unavailable OLMAN SHOEMAKER Referring Unavailable SIDNEY PAGAN Admitting Unavailable SIDNEY PAGAN Surgeon Unavailable OLMAN SHOEMAKER Primary Care Unavailable OLMAN SHOEMAKER Referring Unavailable ME Procedure Practitioner Unavailab SIDNEY Jasso Admitting Unavailable [...] Primary Care Physician Olman Shoemaker Unavailable Olman Shoemaekr MD Primary Care Provider [phone] RYAN BENITEZ Admitting Unavailable RYAN BENITEZ Attending [...] Unavailable Olman Shoemaker MD Primary Care Provider [phone] Community, Outreach Attending Provider Community, Outreach Attending Unavailable Community, Outreach Admitting Unavailable Sahara, Olman E Primary Care Unavailable THUY CAMPBELL Attending Unavailable Olman Shoemaker MD Attending Provider Zhen Mendoza MD Attending Unavailable Allergies Allergy ClassificationReported Allergen(s)Allergy TypeDate of OnsetReaction(s) FacilitySulfonamides (antibiotic) (1 source)Sulfonamides (Antibiotic); Translations: [SULFA (SULFONAMIDE ANTIBIOTICS)]Drug Nqhtehs26-96-6943[facility] Repository (1 source)Sulfonamides (Antibiotic)Drug allergy (disorder)[facility] Repository (3 sources)Sulfonamides (Antibiotic); Translations: [sulfa drugs]Drug allergy Unknown (qualifier value)[facility] [place] (18 sources)Substance with sulfonamide structure and antibacterial mechanism of action (substance)Drug zeicmwh81-12-2332eeqfe, Other (See Comments)[employer] Other (3 sources)patient allergy list reviewed by nurse or physiciaPropensity to adverse bijmwealp99-95-7507Tebocdw:[employer] Other (3 sources)Allergies ReconciledPropensity to adverse reactionsUnknoFreeman Cancer Institute [employer] Other (7 sources)Sulfonamides (Antibiotic); Translations: [SULFA (SULFONAMIDE ANTIBIOTICS)]Propensity to adverse reactions to drug (disorder)10-25-2023 [facility] Repository Medications Current Medications MedicationDrug Class(es)DatesSig (Normalized)Sig (Original)Acetaminophen (1 source)Start: 64-45-5629nmwfesdrcrofz (TYLENOL) tablet 650 mgascorbic acid 1000 mg oral tablet (15 sources)Vitamin Ctake 1 tablet by mouth in the morningascorbic acid, vitamin C, (VITAMIN C) 1000 mg tablet Take 1 tablet (1,000 mg total) by mouth in the morning. Activeaspirin 81 mg chewable tablet (20 sources)Platelet Aggregation Inhibitor, Nonsteroidal Anti-inflammatory Drug Start: 41-92-2959ztti 1 tablet by mouth once dailyAspirin 81 mg tablet,chewable Active 81 MG PO Daily October 14, 2023 12:00am Complies with drug therapyStart: 12-89-3182reql 1 tablet by mouth once dailyaspirin 81 mg Oral EC Tab 81 mg = 1 tab(s), Oral, Daily, Refills(s) 0 Start Date: 12/17/19 Status: OrderedBaby Aspirin Activebisacodyl 10 mg rectal suppository (1 source)Stimulant LaxativeStart: 97-75-1700owgf 10 mg by mouth once daily as needed for mvbjmmakgafe56 mg, rectal, Daily PRN, constipation, Constipation if polyethylene glycol is ineffective or patient is unable to take oral medications, Starting on Mon05/21/24 at 1333, Look-alike/sound-alike medication - verify indication for use.Calcium Gluconate (1 source)Start: 92-16-4765blfoqrt gluconate IVPB 1000 mg/50 mL (20 mg/mL premix)cefTRIAXone (ROCEPHIN) 2,000 mg in sodium chloride 0.9 % 50 mL IVPB-MBP (1 source)Start: 58-52-0540fapn 2000 mg intravenously every twenty-four hours 2,000 [...] IVPB MINI-BAG Plus (4 sources)Start: 05-24-2024 End: 56-71-5446jaar 2000 mg intravenously every twenty-four hourscefTRIAXone 2,000 mg in sodium chloride 0.9 % 50 mL IVPB MINI-BAG Plus Infuse 2,000 mg into a venous catheter daily for 11 days. WBC, platelet, creatinine, LFT weekly while on antibiotic, faxed to [facility] [phone]. IV flushes as per protocol 1 each 05/24/2024 06/04/2024 ActiveStart: 05-24-2024 End: 41-33-8795wttj 2000 mg intravenously every twenty-four hourscefTRIAXone 2,000 mg in sodium chloride 0.9 % 50 mL IVPB MINI-BAG Plus Infuse 2,000 mg into a venous catheter daily for 11 days. WBC, platelet, creatinine, LFT weekly while on antibiotic, faxed to [place] [phone] . IV flushes as per protocol 1 each 05/24/2024 06/04/2024Start: 05-24-2024 End: 83-82-6127mmmz 2000 mg intravenously every twenty-four hourscefTRIAXone 2,000 mg in sodium chloride 0.9 % 50 mL IVPB MINI-BAG Plus Infuse 2,000 mg into a venous catheter daily for 11 days. WBC, platelet, creatinine, LFT weekly while on antibiotic, faxed to [place] [phone] . IV flushes as per protocol 1 each 05/24/2024 05/24/2024 DiscontinuedCentrum MultiGummies Women (2 sources)Start: 08-59-6256Mongkos MultiGummies Women See Instructions, Refill(s) 0, one po daily Start Date: 12/17/19 Status: Orderedcholecalciferol 0.05 mg oral tablet (16 sources)Vitamin DStart: 06-21-6840yvgo 2000 [IU] by mouth once daily2,000 Units, oral, Daily, First dose on Mon05/23/24 at 2100take 1 tablet by mouth in the morningcholecalciferol, vitamin D3, 2,000 units tablet Take 1 tablet (2,000 Units total) by mouth in the morning. Activeciprofloxacin 500 mg oral tablet (1 source)Quinolone AntimicrobialStart: 06-29-2024 End: 81-21-6962sgzd 1 tablet by mouth in the morning, [...] 5000 unt/ml injection (1 source)Unfractionated Heparin, Anti-coagulantStart: 02-98-4173jbiizc 5000 [IU] by subcutaneous injection every eight hours5,000 Units, subcutaneous, Every 8 hours scheduled, First dose on Mon05/22/24 at 0600, Look-alike/sound-alike medication - verify indication for use. Observe for bleeding.hyoscyamine sulfate 0.125 mg sublingual tablet (1 source)Start: 32-08-9426tiax 1 tablet by mouth every four hours as needed hyoscyamine (LEVSIN) 0.125 mg SL tablet Take 1 tablet (125 mcg total) by mouth every 4 (four) hoursas needed for cramping. 30 tablet 08/08/2024 Active levoFLOXacin 500 mg oral tablet (1 source)Quinolone AntimicrobialStart: 08-08-2024 End: 13-93-9601fxcw 1 tablet by mouth in the morninglevoFLOXacin (LEVAQUIN) 500 mg tablet Take 1 tablet (500 mg total) by mouth in the morning for 5 days. 5 tablet 08/08/2024 08/13/2024 Activemagnesium sulfate IVPB 2000 mg/50 mL in iso- osmotic water (40 mg/mL premix) (1 source)Start: 00-94-1507svxmcngzd sulfate IVPB 2000 mg/50 mL in iso-osmotic water (40 mg/mL premix)bdfwgcab-rvlb-CR-calcium &mins (THERAGRAN-M) 9 mg iron- 400 mcg tablet (15 sources)ebhzmmqo-lury-MT-calcium &mins (THERAGRAN-M) 9 mg iron-400 mcg tablet Take 1 tablet by mouth inthe morning. Wyoshjfhtnnmnm-wxdz-EO-calcium &mins (THERAGRAN-M) 9 mg iron-400 mcg tablet Take 1 tablet by mouth inthe morning.esiobvhl-vhac-UV-calcium &mins (THERAGRAN-M) 9 mg iron-400 mcg tablet Take 1 tablet by mouth inthe morning. Nzecprgjmpicbgwxg-xzps-TE-calcium &mins (THERAGRAN-M) 9 mg iron-400 mcg tablet 1 tablet (1 source)Start: 00-20-3858spna 1 tablet by mouth once daily1 tablet, oral, Daily, First dose on Mon05/23/24 at 7595Bqolbsrp-Col-Hj-Lycopen-Lutein (Complete Mv Adult 50 Plus) 0.4 mg-300 mcg- 250 mcg tablet (6 sources)Start: 30-63-4284yvsm 1 tablet by mouth once daily Eszlwfae-Eio-Vu-Lycopen-Lutein (Complete Mv Adult 50 Plus) 0.4 mg-300 mcg- 250 mcg tablet Active 1 TAB PO Daily October 14, 2023 12:00am Complies with drug therapyStart: 78-72-3651njxl 1 tablet by mouth once dailyStart: 90-00-7736eewx 1 tablet by mouth once ebbudQjshixao-Hds-Wz-Lycopen-Lutein (Complete Mv Adult 50 Plus) 0.4 mg-300 mcg- 250 mcg tablet Active 1 TAB PO Daily October 13, 2023 11:00pmStart: 88-81-6117splw 1 tablet by mouth once daily Gjobuuhi-Pib-Wf-Lycopen-Lutein (Complete Mv Adult 50 Plus) 0.4 mg-300 mcg- 250 mcg tablet Active 1 TAB PO Daily October 14, 2023 12:00amMultivitamin Adults 50+ - (4 sources)Multivitamin Adults 50+ - Orally ActiveoxyCODONE hydrochloride 5 mg oral tablet (1 source)Opioid AgonistStart: 78-89-8750wgdl 1 tablet by mouth every four hours as needed for pain5 mg, oral, Every 4 hours PRN, severe pain - pain scale 7-10, Starting on Mon05/22/24 at 0827, Look-alike/sound-alike medication - verify indication for use. Immediate release.polyethylene glycol 3350 42997 mg powder for oral solution (1 source)Osmotic LaxativeStart: 19-57-034167 g, oral, Daily PRN, constipation, Starting on Mon05/21/24 at 1333, Look-alike/sound-alike medication - verify indication for use. Dissolve 1 packet (17 gm) in 8 ounces of water, juice, soda, coffee or tea.Potassium Chloride (1 source)Start: 14-08-8066zjrbmbmza chloride (K-TAB,KLOR-CON) CR tablet 20-50 mEqpotassium chloride IVPB 10 mEq/50 mL in water (0.2 mEq/mL premix) (1 source)Start: 19-49-1851amuxqbsfu chloride IVPB 10 mEq/50 mL in water (0.2 mEq/mL premix)Sodium Chloride (4 sources)Start: 82-17-1230ddaa 10 mL intravenously every twelve hourssodium chloride 0.9 % flush 10 mLStart: 05-21-2024 End: mL/hr, intra-arterial, Continuous, Starting on Mon05/21/24 at 1415, For 90 daysStart: 05-21-2024 End: 68-40-9788xasg 10 mL intravenously every hour as nmyypq96 mL/hr, intravenous, Continuous PRN, to maintain patency of lines, Starting on Mon05/21/24 at 1325, For 1 day, Line #3sodium phosphate 20 mmol in sodium chloride 0.9 % 250 mL IVPB (1 source)Start: 55-79-5231xpsaan phosphate 20 mmol in sodium chloride 0.9 % 250 mL IVPBSUMAtriptan 25 mg oral tablet (20 sources)Serotonin-1b and Serotonin-1d Receptor AgonistStart: 09-24-2024 Sumatriptan Succinate 25 mg tablet Active 0 .ROUTE .COMPLEX 9 September 24, 2024 1:33pm TAKE 1 TAB AT ONSET OF HEADACHE IF NO RELIEF MAY REPEAT 1 TAB AFTER 2HRS *MAX 4/24HR* Complies with drug therapyStart: 38-99-2367ozzi 1 tablet by mouth once as neededSUMAtriptan (IMITREX) 25 mg tablet Take 1 tablet (25 mg total) by mouth once as needed for migraine. 05/16/2024 ActiveStart: 05-16-2024 End: 13-45-5131nkdn 1 tablet by mouth every two hoursSumatriptan Succinate 25 mg tablet Discontinued 0 PO .COMPLEX 9 May 16, 2024 12:00am September 24, 2024 1:33pm take 1 tab at onset of headache; if no relief may repeat 1 tab after at least 2 hrs; max = 4 tabs/24 hr POterbinafine 250 mg oral tablet (4 sources)Allylamine AntifungalStart: 86-45-6394dxpg 1 tablet by mouth every twenty-four hoursTerbinafine HCl 250 MG 1 tablet Orally Once a day for 10 day(s) Jan, ActivetiZANidine 2 mg oral tablet (1 source)Central alpha-2 Adrenergic AgonistStart: 66-79-9883zrfv 1 tablet by mouth once daily at [...] MedicationDrug Class(es)DatesSig (Normalized)Sig (Original)500 ml albumin human, [facility] 50 mg/ml injection (1 source)Human Serum AlbuminStart: [...] oral tablet (6 sources)Macrolide AntimicrobialStart: 05-06-2025 End: 43-94-2189Azftlijmrleg 250 mg tablet Discontinued 0 PO .COMPLEX 6 0 May 06, 2025 12:00am May 20, 2025 10:14am For 250 mg dose pack: take 500 mg today (day 1), then 250 mg for 4 days (days 2-5) POStart: 10-25-2023 End: 91-45-4417Vxgsagcixcej 250 mg tablet Discontinued 250 MG PO daily 6 5 0 October 25, 2023 12:00am April 10:40am Bronchitis Bronchitis, not specified as acute or chronic Take 2 tablets today and then1 tablet for the next 4 daysbenzonatate 200 mg oral capsule (5 sources)Non-narcotic AntitussiveStart: 10-25-2023 End: 22-01-8972klbv 1 capsule by mouth three times daily [...] System Stimulant, Ergotamine Derivative, MethylxanthineStart: 10-14-2023 End: 42-42-6146dqdc 1 tablet by mouth once as neededErgotamine-Caffeine 1-100 mg tablet Discontinued 1 TAB PO Once as needed October 14, 2023 12:00am May 16, 2024 12:33pm FreeTextSig: Orally; Note: Source Status: Taking; Provider: Sahara Young ( )Start: 65-45-5495shah 1 tablet by mouth every eight hours [...] Mon05/21/24 at 2030,For 1 doseStart: 05-21-2024 End: 18-83-4141nxyz 100 mL intravenously every lgag720 mL/hr, intravenous, Continuous, Starting on Mon05/21/24 at 1345, For 1 daydiclofenac sodium 20 mg/ml topical solution (4 sources)Nonsteroidal Anti-inflammatory DrugStart: 60-38-3241Wflmzpkw 2 % 2 applications to affected area Transdermal Twice a day for 30 day(s) Aug, Not-Takingfamotidine 20 mg oral tablet (2 sources)Histamine-2 Receptor AntagonistStart: 05-22-2024 End: 55-52-5038zwbi 20 mg by mouth once daily20 mg, oral, Daily, First dose (after last modification) on Mon05/22/24 at 1630, Indication: Stress Ulcer ProphylaxisStart: 05-21-2024 End: 90-48-728027 mg, intravenous, Every 24 hours scheduled, First dose (after last modification) on Mon05/21/24 at 1600, Pharmacy to adjust dose based on renal function. Dilute to total volume of 5 mL with 0.9% sod chl and administer IVP over 2 minutes., Indication: Stress Ulcer Prophylaxis1 ml fentaNYL 0.05 mg/ml injection (3 sources)Opioid AgonistStart: 05-21-2024 End: 82-25-362753 mcg, intravenous, Once, On Mon05/21/24 at 2200, For 1 dose, Look-alike/sound-alike medication -verify indication for use.Start: 05-21-2024 End: 20-65-8937etcv 50 ug intravenously every three hours as mcg, intravenous, Every 3 hours PRN, breakthrough pain, Starting on Mon05/22/24 at 0047, Look-alike/sound-alike medication - verify indication for use.24 hr fesoterodine fumarate 8 mg extended release oral tablet (20 sources)Start: 46-86-4403lolk 1 tablet by mouth once dailyFesoterodine 8 mg tablet extended release 24 hr Active 0 .ROUTE .COMPLEX June 05, 2024 10:23am TAKE 1 TABLET BY MOUTH EVERY DAYStart: 31-77-9899dpvs 1 tablet by mouth every twenty-four hours in the morningfesoterodine (TOVIAZ) 8 mg tablet extended release 24 hr Indications: urinary urgency Take 1 tablet(8 mg total) by mouth in the morning. Indications: urinary urgency, or the sudden urge to urinate. 0 02/13/2024 ActiveStart: 02-13-2024 End: 00-91-2301urrr 1 tablet by mouth once dailyFesoterodine 8 mg tablet extended release 24 hr Discontinued 0 .ROUTE .COMPLEX February 13, 2024 9:42am June 05, 2024 10:23am TAKE 1 TABLET BY MOUTH EVERY DAYStart: 02-13-2024 take 1 tablet by mouth once dailyFesoterodine Active 0 .ROUTE .COMPLEX February 13, 2024 10:42am TAKE 1 TABLET BY MOUTH EVERY DAYStart: 12-26-2023 End: 38-31-6922tpsl 1 tablet by mouth once dailyFesoterodine 8 mg tablet extended release 24 hr Discontinued 0 .ROUTE .COMPLEX 90 June 05, 2024 11:23am October 08, 2024 11:40am TAKE 1 TABLET BY MOUTH EVERY DAYStart: 12-26-2023 End: 49-44-7008zerl 1 tablet by mouth once dailyFesoterodine 8 mg tablet extended release 24 hr Discontinued 0 .ROUTE .COMPLEX December 26, 2023 2:40pm February 13, 2024 9:42am TAKE 1 TABLET BY MOUTH EVERY DAYStart: 12-26-2023 End: 78-28-6916dvlo 1 tablet by mouth once dailyFesoterodine Discontinued 0 .ROUTE .COMPLEX December 26, 2023 3:40pm February 13, 2024 10:42am TAKE 1TABLET BY MOUTH EVERY DAYStart: 12-13-2019 End: 14-89-3039elwd 1 tablet by mouth once dailyFesoterodine (Toviaz) 8 mg tablet extended release 24 hr Discontinued 8 MG PO Daily October 14, 2023 12:00am November 27, 2023 8:37amToviaz 8mg Activegabapentin 100 mg oral capsule (7 sources)Anti-epileptic AgentStart: 05-22-2024 End: 44-41-0242fmym 1 capsule by mouth three times dailyGabapentin 100 mg capsule Discontinued 100 MG PO Three times daily May 30, 2024 1:00am May 20, 2025 10:14amhydroCHLOROthiazide 25 mg oral tablet (20 sources)Thiazide DiureticStart: 12-13-2019 End: 91-15-9012psed 1 tablet by mouth once dailyHydrochlorothiazide 25 mg tablet Discontinued 25 MG PO Daily October 14, 2023 12:00am August 5:18pm FreeTextSig: TAKE 1 TABLET DAILY; Note: Source Status: Start; Refills: 3; Qty: 90 Tablet; Provider: Sahara Young ( )hydrocortisone 100 mg injection (1 source)CorticosteroidStart: 05-21-2024 End: 53-53-2024drqf 50 mg intravenously every six hours50 mg, intravenous, Every 6 hours, First dose on Mon05/21/24 at 2030, Administer over 30 seconds. May alter blood glucose or insulin requirements. Look-alike/sound-alike medication - verify indication for use.iohexoL (OMNIPAQUE) 300 mg iodine/mL (1 source)Start: 05-21-2024 End: 07-74-8939Yj needed, Starting on Mon05/21/24 at 1623, Intra-op10 ml lidocaine hydrochloride 10 mg/ml injection (1 source)Antiarrhythmic, Amide Local AnestheticStart: 05-21-2024 End: 66-83-7760zrbynnkatubn, Code/trauma/sedation medication, Starting on Mon05/21/24 at 1614, Intra-opmeloxicam 15 mg oral tablet (20 sources)Nonsteroidal Anti-inflammatory DrugStart: 07-60-9439qxoc 15 mg by mouth once daily15 mg, oral, Daily, First dose on Mon05/23/24 at 2100Start: 10-27-2023 End: 29-48-0397Davhtgocj 15 mg tablet Discontinued 0 .ROUTE .COMPLEX 90 August 26, 2024 5:17pm February 28, 2025 8:47am TAKE 1 TABLET DAILYStart: 46-52-0654Fidausboz 15 mg tablet Active 0 .ROUTE .COMPLEX 90 October 27, 2023 10:00am TAKE 1 TABLET DAILYStart: 63-02-1939Cjysuhxja Active 0 .ROUTE .COMPLEX 90 October 27, 2023 11:00am TAKE 1 TABLET DAILYStart: 12-17-2019 End: 43-71-9162nvfz 1 tablet by mouth once dailyMeloxicam 15 mg tablet Discontinued 15 MG PO Daily October 14, 2023 12:00am October 27, 2023 11:00am FreeTextSig: TAKE 1 TABLET DAILY; Note: Source Status: Taking; Refills: 3; Qty: 90 Tablet; Provider: Sahara Young ( )2 ml midazolam 1 mg/ml cartridge (1 source)BenzodiazepineStart: 05-21-2024 End: 54-72-8205ddshikflaoq, Code/trauma/sedation medication, Starting on Mon05/21/24 at 1610, Intra-op24 hr mirabegron 50 mg extended release oral tablet (20 sources)beta3-Adrenergic AgonistStart: 12-13-2019 End: 54-16-4323ggcz 1 tablet by mouth once dailyMirabegron 50 [...] oral capsule (9 sources)Nitrofuran AntibacterialStart: 05-17-2024 End: 25-98-4431ylsp 1 capsule by mouth twice daily at [...] Pyxis Override Pull (1 source)Start: 05-21-2024 End: 08-16-9680Rqjhujxc on Mon05/21/24 at 1257, For 1 dose, Jovany Wynne: cabinet override VESICANT (RED) Requires Smart Pump.oxybutynin chloride 5 mg oral tablet (11 sources)Cholinergic Muscarinic AntagonistStart: 10-08-2024 End: 78-10-8840aknb 1 tablet by mouth once dailyOxybutynin Chloride [...] mg oral tablet (6 sources)Start: 10-14-2023 End: 38-77-8688ojqe 1 tablet by mouth twice dailyPrednisone 20 mg tablet Discontinued 20 MG PO Twice daily 10 5 0 October 14, 2023 12:00am October 25, 2023 9:34amSUPARTZ FX SODIUM HYALURONATE (20 sources)Start: 19-84-7407YVAFFZJ FX SODIUM HYALURONATE Dec, 25Start: 29-95-7969LPISGCW FX SODIUM HYALURONATE November, 25 mgStart: 12-12-2016 SUPARTZ FX SODIUM HYALURONATE November, 25Start: 19-20-0836OCIQHVP FX SODIUM HYALURONATE November, 25 mgStart: 89-54-9298CBYENJV FX SODIUM HYALURONATE November, 25 mgtamsulosin hydrochloride 0.4 mg oral capsule (9 sources)alpha-Adrenergic BlockerStart: 06-28-2024 End: 92-11-1798prkg 1 capsule by mouth once dailyTamsulosin 0.4 mg capsule Discontinued 0.4 MG PO Daily August 16, 2024 1:00am May 200:15am Triamcinolone (20 sources)CorticosteroidStart: 44-29-9790Oistljo -40 mg Sep, 40 mg Start: 98-62-0449Ufvvjwu -40 mg Mar,Start: 26-03-7926Sepwoxj -40 mg Sep, 40 mgtrospium chloride 20 mg oral tablet (11 sources)Cholinergic Muscarinic AntagonistStart: 10-08-2024 End: 49-61-3682vvah 1 tablet by mouth twice dailyTrospium 20 mg tablet Discontinued 20 MG PO Twice daily 180 0 January 03, 2025 9:28am March 31, 2025 8:24am administer on an empty stomachvalACYclovir 500 mg oral tablet (7 sources)Herpesvirus Nucleoside Analog DNA Polymerase Inhibitor, Herpes Simplex Virus Nucleoside Analog DNA Polymerase Inhibitor, Herpes Zoster Virus Nucleoside Analog DNA Polymerase InhibitorStart: 05-25-2024 End: 04-55-0777wpsq 1 tablet by mouth twice dailyValacyclovir 500 [...] of anterior abdominal wall without obstructionAND without gangrene]80-16-5142Tfoempif Calculus of urinary tract (20 sources)Kidney stone; Translations: [Calculus of kidney]Onset: 01-16-2024 62-92-2041QciasxinDehibzl obstructive pulmonary disease and bronchiectasis (6 sources)Bronchitis; Translations: [Bronchitis, not specified as acute or chronic]15-80-3441DdzluckvDzjobtqovp associated with dizziness or vertigo (2 sources)Postural dizziness; Translations: [Dizziness and giddiness]08-19-2024 EpisodicEssential hypertension (5 sources)Hypertensive disorder; Translations: [Essential (primary) hypertension]65-21-0844YbkqgfhIndub and electrolyte disorders (2 sources)Hypokalemia; Translations: [Hypokalemia]Onset: EpisodicGenitourinary symptoms and ill-defined conditions (10 sources)Incontinence; Translations: [Incontinence without sensory awareness] Onset: 805779-44-6521GkuuodyOoagdnvyzkvtc symptoms and ill-defined conditions (9 sources)Microscopic hematuria; Translations: [Nocturia]Onset: 06-07-2016 01-82-8427GdogjcfoYrjxsrcj; including migraine (12 sources)Migraine; Translations: [Episodic tension-type headache]12-12-2019 ChronicHeart valve disorders (5 sources)Heart murmur; Translations: [O/E - cardiac murmur]Onset: 08-23-2018 28-38-5403QifwdlvdTxvgbquih (1 source)Influenza due to other identified influenza virus with other respiratory manifestations; Translations: [Influenza with other respiratory manifestations]24-86-2960PbbxjkpxAjuavngdj disorders (3 sources)Disorder of menstruation; Translations: [Unspecified disorder of menstruation and other abnormal bleeding from female genital tract]Onset: 82-59-7779WcepikqLawkdwbmitnkeu (20 sources)Osteoarthritis of knee; Translations: [Unilateral primary osteoarthritis, right knee]ChronicOther circulatory disease (5 sources)Elevated blood-pressure reading without diagnosis of hypertension; Translations: [Elevated blood-pressure reading, without diagnosis of hypertension]Onset: 034802-90-1173MryrjigtMmskl connective tissue disease (4 sources)Pain in left lower limb; Translations: [Pain in left leg]Episodic Other connective tissue disease (4 sources)Thigh pain; Translations: [Pain in unspecified thigh]EpisodicOther diseases of bladder and urethra (6 sources)Overactive bladder; Translations: [Overactive bladder]05-22-2024 ChronicOther diseases of kidney and ureters (1 source)Kidney disease; Translations: [Other specified disorders of kidney and ureter]77-88-1457WngiazhTfwiy diseases of kidney and ureters (2 sources)Other specified disorders of kidney and ureter; Translations: [Other specified disorders of kidney and ureter]Onset: 30-04-9647SqzyynnZvyrc diseases of kidney and ureters (1 source)Kidney qkskyrw23-68-6754MucmzpksPzdnj nervous system disorders (4 sources)Meralgia paresthetica of left leg; Translations: [Meralgia paresthetica, left lower limb]ChronicOther nervous system disorders (4 sources)Chronic pain; Translations: [Other chronic pain]ChronicOther non- traumatic joint disorders (8 sources)Knee pain; Translations: [Pain in right knee]EpisodicOther nutritional; endocrine; and metabolic disorders (10 sources)Body mass index 40+ - severely obese; Translations: [Body mass index (BMI) 50.0-59.9, adult]Onset: 22-06-2090ZkyksxgWzayv nutritional; endocrine; and metabolic disorders (5 sources)Disorder of mineral metabolism; 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, unspecified]Onset: 982857-45-7389OgvqrsqYswyt nutritional; endocrine; and metabolic disorders (1 source)Disorder of mineral metabolism, unspecified; 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, unspecified]Onset: 40-91-2126YijeezgKmlvk screening for suspected conditions (not mental disorders or infectious disease) (10 sources)Patient encounter status; Translations: [Encounter for screening mammogram for malignant neoplasm of breast]Onset: 100351-90-3429Kdmvuhwy Other upper respiratory infections (6 sources)Acute maxillary sinusitis; Translations: [Acute maxillary sinusitis, unspecified]Onset: 93-23-3947IzeasxyxMfehfqbzye (except in labor) (20 sources)Septic shock; Translations: [Sepsis, unspecified organism]Onset: 716731-81-2201BzxpwgtaYqfykvicwuk; intervertebral disc disorders; other back problems (4 sources)Spondylosis; Translations: [Other spondylosis, lumbar region]Chronic Spondylosis; intervertebral disc disorders; other back problems (5 sources)Low back pain; Translations: [Low back pain, unspecified]Onset: 809605-57-1629UtqftdihEamdicnwo-zktlhcd disorders (3 sources)Tobacco user; Translations: [Nicotine dependence, cigarettes, in remission]ChronicUnclassified (2 sources)Asymptomatic microscopic ehweibduq65-90-2245Zazomdh tract infections (6 sources)Urinary tract infectious disease; Translations: [Urinary tract infection, site not specified]49-93-7458Avqwpeae Past or Other Problems Problem ClassificationProblemDateDocumented DateEpisodic/ChronicAbdominal pain (3 sources)Flank pain; Translations: [Unspecified abdominal pain]Onset: 175618-02-7887NovynoegEzuqswrcn infection; unspecified site (5 sources)Bacteremia caused by Gram-negative bacteria; Translations: [Bacteremia]Onset: 106313-31-3880KtaxqroeQmlv disorders (14 sources)Mood disordersOnset: 05-21-2024 Resolved: 173029-69-7201Fxbxz aftercare (3 sources)Surgical follow-up; Translations: [Follow-up examination, following unspecified surgery]Onset: 10-29-5065GntozmsbYoagm female genital disorders (3 sources)Hypertrophy of uterus; Translations: [Hypertrophy of uterus]Onset: 64-19-9550QmsfloryPmspk non-traumatic joint disorders (3 sources)Arthralgia of the pelvic region and thigh; Translations: [Pain in joint, pelvic region and thigh]Onset: 05-31-4809AcsbqxooXgfwhfuu codes; unclassified (1 source)Pain, unspecified; Translations: [Pain, unspecified]Onset: 05-21-2024 EpisodicShock (2 sources)Severe sepsis with septic shock; Translations: [Severe sepsis with septic shock]Onset: 81-03-2741Oyqtwklb Results Test NameValueInterpretationReference RangeFacilityUS community outreach [facility] 84-27-4713JS community outreach [place] [address] Ultrasound Report Signed Patient: Sharri Murillo MR#: [id number] : 1955 Acct:[id number] Age/Sex: 69 / F ADM Date: 04/08/25 [...] Heart MD,FACS,FSVS 04/08/2025 2:09 PM Dictation Location: [place] [address] Tech: Shira Deng Transcribed By: PWS 04/08/25 140 Dictated By: Jovany Heart MD 04/08/25 140 Signed By: 04/08/25 1409[facility] Physician [employer]US community outreach aortaon 97-31-9676CY critical access hospital outreach [place] [id number] Ultrasound Report Signed Patient: Sharri Murillo MR#: [id number] : 1955 Acct:[id number] Age/Sex: 69 / F ADM Date: 04/08/25 Loc: Room: Type: [facility] Attending Dr: [facility] Ordering Provider: BHARATHI AVILES Date of Service: 04/08/25 US/US critical access hospital outreach aorta: SCREENING Copies to: [facility] Aorta screening ultrasound HISTORY: Screening exam Normal caliber abdominal aorta. US/US critical access hospital outreach aorta IMPRESSION: No abdominal aortic aneurysm. Impression dictated by: Milton Yap M.D. 04/08/2025 3:29 PM Dictation Location: [place] [address] Tech: Lamar Kathleen Transcribed By: PWS 04/08/25 1529 Dictated By: Milton Yap DO 04/08/25 1529 Signed By: 04/08/25 1529[facility] Physician [employer] community outreach carotidon 78-58-8263NC community outreach carotidNORWALK [facility] Main [address] [address] Ultrasound Report Signed Patient: Sharri Murillo MR#: [id number] : 1955 Acct:[id number] Age/Sex: 69 / F ADM Date: 04/08/25 Loc: Room: Type: REG REF Attending Dr: Bharathi Aviles Ordering Provider: BHARATHI AVILES Date of Service: 04/08/25 /[facility] carotid: SCREENING Copies to: [facility] CAROTID DUPLEX INDICATION: [facility] carotid screening program. PROCEDURE: Color-flow duplex scanning [...] the common carotid artery is 0.99 . /[facility] carotid IMPRESSION: NO HEMODYNAMICALLY SIGNIFICANT STENOSIS OF EITHER EXTRACRANIAL INTERNAL CAROTID ARTERY. Impression dictated by: Jovany Heart MD,FACS,FSVS 04/08/2025 2:08 PM Dictation Location: [place] [address] Tech: Lamar Frannie Transcribed By: KAMILAH 04/08/25 1408 Dictated By: Jovany Heart MD 04/08/25 140 Signed By: 04/08/[address] [place] [address] Physician GroupCT UROGRAMon 78-04-4400NU UROGRAMCT UROGRAM History: Renal stone. Pelvic caliectasis. [...] by Car Elliott MD on 12/11/2024 8:22 AMNormalProSt. Luke'S Health – The Woodlands HospitalCREATININE, SERUMon 66-86-6956Scctpnqnlc [Mass/Vol]0.59 mg/dLNormal 0.40-1.00ProSt. Luke'S Health – The Woodlands HospitalComment on above:Result Comment: METHOD TRACEABLE TO IDAZ STANDARDPerformed By: #### BED MAKER #### [facility] ([facility]) [address] [place] [address] VIREGFR (CKD-EPI) NON-RACE DEPENDENT>^90Normal>=60[facility] HospitalComchelsea hospital on above:Result Comment: Reported eGFR is based on the CKD-EPI 2020 equation that does not use a race coefficient.Performed By: #### BED MAKER #### [facility] ([facility]) [address] [place] [address] VIRCreatinine includes GFR, serumon 33-97-2155Cxeyxwibzt [Mass/Vol]0.59 mg/dL0.40 - 1.00 mg/dLTrumbull Regional Medical CenterComment on above: METHOD TRACEABLE TO IDMS STANDARDEGFR Non-Race Dependent- [facility] Medical CenterComment on above:Reported eGFR is based on the CKD-EPI 2020 equation that does not use a race coefficient. Interpretation and review of laboratory resultsNormalUpland Hills Health Health SystemUS RETROPERITONEAL COMPLETEon 24-40-8077VZ RETROPERITONEAL COMPLETEUS RETROPERITONEAL COMPLETE ULTRASOUND RETROPERITONEAL COMPLETE [...] City HospitalCT ABDOMEN AND PELVIS WO CONTon 78-44-6422DZ ABDOMEN AND PELVIS WO CONT CT ABDOMEN [...] by Aleksandra Gamboa MD on 08/22/2024 12:55 [facility] STONE ANALYSISon 90-57-4978QWIYWY COMMENTSee NoteNoBellevue HospitalComment on above:Result Comment: NOTE For stones containing calcium oxalate, calcium phosphate, and/or uric acid, a 24 hr urinary supersaturation test may help detect underlying risk factors for this type of stone formation and provide guidance for a stone prevention strategy. ADDITIONAL INFORMATION This test was developed and its performance characteristics determined by [facility] in a manner consistent with CLIA requirements. This test has not been cleared or approved by the U.S. Food and Drug Administration. Test Performed by: [facility] [address] [place] [address] Senior Benefits Manager: John Pickett Ph.D.; CLIA# [id number]:LEFT KIDNEY STONE NormalProBrecksville Va / Crille HospitalComment on above:Result Comment: Corrected on 08/13 AT 1509: Previously reported as LEFT KIDNEY STONEStone Zvkeugfqlljrtm136% Calcium oxalate monohydrate.NormalProBrecksville Va / Crille HospitalBacteria identified Cx Nom (U)on 41-81-3858Ybpngvq comment (Unsp spec) [Interp]<10,000 ORGANISMS/ML NORMAL URO GENITAL FLORAProMercy Health Perrysburg Hospital SystemProOur Lady Of Mercy Hospital - AndersonBASIC METABOLIC PANLon 46-03-8291Ylxpl gap [Moles/Vol]7 mmol/LNormal5-15ProBrecksville Va / Crille HospitalComment on above:Performed By: #### BERNARD, 04434-2, CMP, 85167-5, 2777-1, CBCA, 07723-2 #### [facility] ([id number]) [address], [address] [place], [place] [address]Chriitt [Mass/Vol]9.0 mg/dLNormal8.5-10.5POhioHealth Grove City Methodist HospitalComment on above:Performed By: #### BERNARD, 50541-2, CMP, 48472-8, 2777-1, CBCA, 82200-9 #### [facility] ([id number]) [address], [address] [place], [place] [address]Gqfkdaac [Moles/Vol]101 mmol/LIbxren94-010PisFrecqx [place] HospitalComment on above:Performed By: #### BERNARD, 44980-0, CMP, 09196-2, 2777-1, CBCA, 58036-2 #### [facility] ([id number]) [address], [address] [place], [place] [address]EH7 [Moles/Vol]30 mmol/AGkttxd37-75TbrRhgumt [facility] Comment on above:Performed By: #### PINR, 44368-1, CMP, 39968-0, 2777-1, CBCA, 46819-0 #### [facility] ([id number]) [address], [address] [place], [place] [address]Qwcwpnxuit [Mass/Vol]0.68 mg/dLNormal0.40-1.00ProBrecksville Va / Crille HospitalComment on above:Result Comment: METHOD TRACEABLE TO IDMS STANDARD Performed By: #### PINR, 32783-0, CMP, 68393-4, 2777-1, CBCA, 72659-9 #### [facility] ([id number]) [address] [place], [place] [address]sTCV (CKD-EPI) NON-RACE DEPENDENT>90Normal>59ProBrecksville Va / Crille HospitalComment on above:Result Comment: Reported eGFR is based on the CKD-EPI 2020 equation that does not use a race coefficient.Performed By: #### PINR, 24779-9, CMP, 64238-9, 2777- 1, CBCA, 91996-5 #### [facility] ([id number]) [address], [address] [place], [place] [address]Tavhdud [Mass/Vol]96 mg/jJGmpazh87-64PydUypmlf [facility] Comment on above:Performed By: #### KATLYNR, 65572-8, CMP, 85829-9, 2777-1, CBCA, 19475-0 #### [facility] ([id number]) [address], [address] [place], [place] [address]Vkcuebuxu [Moles/Vol]3.6 mmol/LNormal3.5-5.0ProBrecksville Va / Crille HospitalComment on above:Performed By: #### PINR, 63338-3, CMP, 91790-8, 2777-1, CBCA, 66800-8 #### [facility] ([id number]) [address], [address] [place], [place] [address]Okohml [Moles/Vol]138 mmol/VMmgxem507-575PmcDjszdqCleveland Clinic Hillcrest HospitalComment on above:Performed By: #### PINR, 26016-9, CMP, 15539-2, 2777-1, CBCA, 22729-6 #### [facility] ([id number]) [address], [address] [place], [place] [address]Bcxk nitrogen [Mass/Vol]16 mg/dLNormal5-27ProBrecksville Va / Crille HospitalComment on above:Performed By: #### PINR, 33803-6, CMP, 02351-4, 2777-1, CBCA, 28242-8 #### [facility] ([id number]) [address], [address] [place], [place] [address]Kjxvz Metabolic Panelon 55-29-5091Mwxxj gap [Moles/Vol]7 mmol/L5 - 15 mmol/LProMedica Health SystemCalcium [Mass/Vol]9 mg/dL8.5 - 10.5 mg/dL [facility] SystemChloride [Moles/Vol]101 mmol/L98 - 109 mmol/LProMedica Health SystemCO2 [Moles/Vol]30 mmol/L22 - 32 mmol/LProMedica Health System Creatinine [Mass/Vol]0.68 mg/dL0.40 - 1.00 mg/dLTrumbull Regional Medical CenterComment on above:METHOD TRACEABLE TO IDMS STANDARDeGFR (CKD-EPI)non-race dependent- PINF [facility]ull Regional Medical CenterComment on above: Reported eGFR is based on the CKD-EPI 2020 equation that does not use a race coefficient. Glucose [Mass/Vol]96 mg/dL65 - 99 mg/dLHarrison Community Hospital SystemPotassium [Moles/Vol]3.6 mmol/L3.5 - 5.0 mmol/LProMedica Health SystemSodium [Moles/Vol] 138 mmol/L134 - 146 mmol/LProMedica Health SystemUrea nitrogen [Mass/Vol]16 mg/dL5 - 27 mg/dLTrumbull Regional Medical CenterProMercy Health Perrysburg Hospital SystemURINALYSISon 22-62-1583Vkynohelf Ql (U)NegativeNormalNEGProMedica Ashraf HospitalComment on above:Performed By: #### PINR, 72348-8, CMP, 40698-0, 2777-1, CBCA, 76972-3 #### [facility] ([id number]) [address], [address] [place], [place] [address]YSLXR/HGBLargeAbnormalNEGProMedica Ashraf HospitalComment on above:Performed By: #### PINR, 04237-9, CMP, 26502-7, 2777-1, CBCA, 67813-5 #### [facility] ([id number]) [address], [address] [place], [place] [address]Hxyfi (U)YELLOWNormalYELLOWProMedica Ashraf HospitalComment on above:Performed By: #### PINR, 00195-2, CMP, 88759-7, 2777-1, CBCA, 45895-1 #### [facility] ([id number]) [address], [address] [place], [place] [address]Iqvzrzp Ql (U)NegativeNormalNEGProMedica Ashraf HospitalComment on above:Performed By: #### PINR, 94064-6, CMP, 22166-3, 2777-1, CBCA, 43339-0 #### [facility] ([id number]) [address], [address] [place], [place] [address]Epxlwel Ql (U)NegativeNormalNEGProMedica Ashraf HospitalComment on above:Performed By: #### PINR, 22345-8, CMP, 56735-2, 2777-1, CBCA, 84820-6 #### [facility] ([id number]) [address], [address] [place], [place] [address]Tlylveppd esterase Test strip Ql (U)SmallAbnormalNEGProMedica Ashraf HospitalComment on above:Performed By: #### PINR, 39282-5, CMP, 61400-6, 2777-1, CBCA, 67599-7 #### [facility] ([id number]) [address], [address] [place], [place] [address]MBCSCJFRWQXGUXdhzcxfcHANDAwrSwaekw [facility] HospitalComment on above:Performed By: #### PINR, 42836-8, CMP, 84005-8, 2777-1, CBCA, 14451-2 #### [facility] ([id number]) [address], [address] [place], [place] [address]Vtvwqom Ql (U)NegativeNormalNEGProMercy Health St. Rita'S Medical Centerca [facility]ima City HospitalComment on above:Performed By: #### PINR, 21823-4, CMP, 76169-5, 2777-1, CBCA, 06976-6 #### [facility] ([id number]) [address], [address] [place], [place] [address]uK (U)6.0 [pH]Normal5.0-8.5PMercy Memorial Hospital HospitalComment on above:Performed By: #### PINR, 54497-9, CMP, 43118-5, 2777-1, CBCA, 05986-1 #### [facility] ([id number]) [address], [address] [place], [place] [address]Cgaducc Ql (U)50 mg/dLAbnormalNEGProMercy Health St. Rita'S Medical Centerca [facility] Comment on above:Performed By: #### PINR, 04461-8, CMP, 94206-1, 2777-1, CBCA, 94820-2 #### [facility] ([id number]) [address], [address] [place], [place] [address]H.B.FKCDL444 /hpfHigh0-5POhioHealth Grove City Methodist HospitalComment on above:Performed By: #### PINR, 63751-1, CMP, 11347-2, 2777-1, CBCA, 87174-0 #### [facility] ([id number]) [address], [address] [place], [place] [address]Tpbgdrff gravity (U) [Rel density]1.180Ehdlfb5.003-1.035 [facility]ica [facility] City HospitalComment on above:Performed By: #### PINR, 13175-1, CMP, 99426-8, 2777-1, CBCA, 36005-5 #### [facility] ([id number]) [address], [address] [place], [place] [address]NIMCDBQE EPITHELIUM1 /hpfNormal0-5PMercy Memorial Hospital Hospital Comment on above:Performed By: #### PINR, 10907-5, CMP, 00158-3, 2777-1, CBCA, 60251-9 #### [facility] ([id number]) [address], [address] [place] [address]DWBMBTGZZBDLXZoirkqxmEMYPLEpxFtdtbq [place] HospitalComment on above:Performed By: #### PINR, 55421-5, CMP, 66501-0, 2777-1, CBCA, 88153-2 #### [facility] ([id number]) [address], [address] [place] [address]Pxhjvfczrlqm (U) [Mass/Vol]mg/dLNormal<1.1POhioHealth Grove City Methodist HospitalComment on above:Performed By: #### PINR, 19334-6, CMP, 16917-9, 2777-1, CBCA, 04659-8 #### [facility] ([id number]) [address], [address] [place], [place] [address]Q.B.CELLS2 /hpfNormal0-5POhioHealth Grove City Methodist HospitalComment on above:Performed By: #### PINR, 15318-1, CMP, 60532-4, 2777-1, CBCA, 26038-5 #### [facility] ([id number]) [address], [address] [place], [place] [address]EXBOX CULTUREon 88-48-8602Wedkohds identified Cx Nom (U)CULTURE RESULTS <10,000 ORGANISMS/ML NORMAL URO GENITAL FLORAOhioHealth Riverside Methodist Hospital Comment on above:Performed By: #### PINR, 31629-0, CMP, 32183-1, 2777-1, CBCA, 40952-4 #### [facility] ([id number]) [address] [place] [address], [address] [place], [place] [address]Pyvmfvfjodxk 60-90-6043Smresjplm Ql (U)NegativeNegative^Negative [facility] SystemColor (U)YELLOWYELLOW^YELLOWTrumbull Regional Medical Center Epithelial cells Auto (Urine sed) [#/Area]1PFirelands Regional Medical Center South CampusGlucose (U) [Mass/Vol]NegativeNegative^Negative mg/dLTrumbull Regional Medical CenterHemoglobin Auto test strip Ql (U)LargeAbnormalNegative^NegativeTrumbull Regional Medical Center Interpretation and review of laboratory resultsAbnoUNC Health Pardee Ketones (U) [Mass/Vol]NegativeNegative^Negative mg/dLTrumbull Regional Medical Center Leukocyte esterase Auto test strip Ql (U)SmallAbnormalNegative^NegativeHarrison Community Hospital SystemMucus Ql (Urine sed)PRESENTAbnormalNONE^NONEHarrison Community Hospital SystemNitrite Auto test strip Ql (U)NegativeNegative^NegativeTrumbull Regional Medical CenterpH (U)6 [pH]5.0 - 8.5PBlanchard Valley Health System Bluffton [facility] SystemProtein (U) [Mass/Vol]50 mg/dL AbnormalNegative^NegativeTrumbull Regional Medical CenterRBC Auto (Urine sed) [#/Area]633 [facility] Hospital - Greensboropecific gravity Refractometry automated (U) [Rel density]1.0121.003 - 1.035Trumbull Regional Medical CenterTurbidity Ql (U)HAZYAbnormal CLEAR^CLEARTrumbull Regional Medical CenterUrobilinogen Qn (U)NINCitizens Memorial Healthcare WBC Auto (Urine sed) [#/Area]2PAspirus Stanley Hospital System BASIC METABOLIC PANLon 46-81-1655Cqdda gap [Moles/Vol]12 mmol/LNormal5-15 [facility]st HospitalComment on above:Performed By: #### PINR, 37749-9, CMP, 44520-9, 2777-1, CBCA, 65661-6 #### [facility] ([id number]) [address], [address] [place], [place] [address]Hwjxvfg [Mass/Vol]9.2 mg/dLNormal8.5-10.5ProMedica Ashraf HospitalComment on above:Performed By: #### PINR, 76102-0, CMP, 29830-2, 2777-1, CBCA, 14526-5 #### [facility] ([id number]) [address], [address] [place], [place] [address]Svqjmrpd [Moles/Vol]105 mmol/CFvztol77-061MuuQayblh Ashraf HospitalComment on above:Performed By: #### PINR, 24730-1, CMP, 38434-6, 7-1, CBCA, 65437-0 #### [facility] ([id number]) [address], [address] [place], [place] [address]YC2 [Moles/Vol]25 mmol/YOysslt33-58XwnBfbzje [facility] Comment on above:Performed By: #### PINR, 97217-1, CMP, 13702-3, 2777-1, CBCA, 39764-9 #### [facility] ([id number]) [address], [address] [place], [place] [address]Adohugcgzd [Mass/Vol]0.53 mg/dLNormal0.40-1.00ProMedica Ashraf HospitalComment on above:Result Comment: METHOD TRACEABLE TO IDMS STANDARD Performed By: #### PINR, 94987-1, CMP, 27567-5, 2777-1, CBCA, 35480-5 #### [facility] ([id number]) [address], [address] [place], [place] [address]nILZ (CKD-EPI) NON-RACE DEPENDENT>90Normal>59ProMedica Ashraf HospitalComment on above:Result Comment: Reported eGFR is based on the CKD-EPI 2020 equation that does not use a race coefficient.Performed By: #### PINR, 83547-8, CMP, 26879-2, 2777- 1, CBCA, 94100-5 #### [facility] ([id number]) [address], [address] [place], [place] [address]Wgrscgb [Mass/Vol]105 mg/bFMpax65-52NmkKtmzkr [facility] Comment on above:Performed By: #### PINR, 51142-2, CMP, 60295-8, 2777-1, CBCA, 88696-3 #### [facility] ([id number]) [address], [address] [place], [place] [address]Sbqlqhcuh [Moles/Vol]3.2 mmol/LLow3.5-5.0ProBrecksville Va / Crille HospitalComment on above:Performed By: #### PINR, 71143-4, CMP, 38697-4, 7-1, CBCA, 40791-1 #### [facility] ([id number]) [address], [address] [place], [place] [address]Rrkbct [Moles/Vol]142 mmol/DYennxp476-856OutOhiqsh [facility] HospitalComment on above:Performed By: #### PINR, 40185-6, CMP, 08033-3, 7-1, CBCA, 71528-6 #### [facility] ([id number]) [address], [address] [place], [place] [address]Aghb nitrogen [Mass/Vol]16 mg/dLNormal5-27ProBrecksville Va / Crille HospitalComment on above:Performed By: #### PINR, 61742-5, CMP, 05890-2, 2777-1, CBCA, 94138-4 #### [facility] ([id number]) [address], [address] [place], [place] [address]MUYBVMPQ BLOOD COUNTon 15-84-2892Umhmidpvusx distribution width (RBC) [Ratio]15.3 %High11.5-15.0ProMercy Health St. Rita'S Medical Centerca Defuniak Springs HospitalComment on above: Performed By: #### PINR, 02059-3, CMP, 10881-6, 2777-1, CBCA, 11523-3 #### [facility] ([id number]) [address], [address] [place], [place] [address]Zlkzshnktk (Bld) [Volume fraction]35.5 %Ueepgw16-78TzyTknwvy [facility] HospitalComment on above:Performed By: #### PINR, 04811-8, CMP, 08444-7, 2777-1, CBCA, 61593-5 #### [facility] ([id number]) [address], [address] [place], [place] [address]Tegshylhus (Bld) [Mass/Vol]12.0 g/yJFopelq10.7-15.5ProMedica [facility]uni[facility] Springs HospitalComment on above:Performed By: #### PINR, 58397-9, CMP, 21019-0, 2777-1, CBCA, 85046-5 #### [facility] ([id number]) [address], [address] [place], [place] [address]PCQ (RBC) [Entitic mass]30.8 mbOczdbj27-04DywIibfon [facility] HospitalComment on above:Performed By: #### PINR, 67847-1, CMP, 35025-8, 2777-1, CBCA, 60472-3 #### [facility] ([id number]) [address], [address] [place], [place] [address]IPZP (RBC) [Mass/Vol]33.8 g/uJWxfbqm39-94PpiBimxkq [facility] HospitalComment on above:Performed By: #### PINR, 06192-4, CMP, 35002-0, 2777-1, CBCA, 20249-9 #### [facility] ([id number]) [address], [address] [place] [address]ONS (RBC) [Entitic vol]91 hDPtcoht43-525TthEmjkpi [facility] HospitalComment on above:Performed By: #### PINR, 45323-9, CMP, 13179-6, 2777-1, CBCA, 87750-2 #### [facility] ([id number]) [address], [address] [place] [address]Qtikfnid mean volume (Bld) [Entitic vol]7.2 fLNormal7-12 [facility] HospitalComment on above:Performed By: #### PINR, 36256-1, CMP, 34580-7, 2777-1, CBCA, 80777-6 #### [facility] ([id number]) [address], [address] [place], [place] [address]Doozvqqfq (Bld) [#/Vol]162 10*3/aVByhqkr198-613NgeDowyrx [facility] HospitalComment on above:Performed By: #### PINR, 13036-9, CMP, 43930-1, 2777-1, CBCA, 98640-9 #### [facility] ([id number]) [address], [address] [place], [place] [address]TTD COUNT3.89 X10E12/LNormal3.80-5.20ProHighland District Hospital Hospital Comment on above:Performed By: #### PINR, 07139-6, CMP, 59283-2, 2777-1, CBCA, 54244-3 #### [facility] ([id number]) [address], [address] [place], [place] [address]FGB (Bld) [#/Vol]7.9 10*3/uLNormal4.0-11.0ProMercy Health St. Rita'S Medical Centerca [facility]uni[facility] HospitalComment on above:Performed By: #### PINR, 37604-8, CMP, 70259-1, 2777-1, CBCA, 53123-4 #### [facility] ([id number]) [address], [address] [place], [place] [address]IU UROGRAPHY RETRO OPERATIVE W OR WO KUBon [id number] UROGRAPHY RETRO OPERATIVE W OR WO KUBFL [...] by Marcus Nuno MD on 06/28/2024 2:59 PMNormalKettering Health Preble STONE ANALYSISon 90-50-9269IMQIXS COMMENTSee NoteNormalCleveland Clinic Hillcrest HospitalComment on above:Result Comment: NOTE For stones containing calcium oxalate, calcium phosphate, and/or uric acid, a 24 hr urinary supersaturation test may help detect underlying risk factors for this type of stone formation and provide guidance for a stone prevention strategy. ADDITIONAL INFORMATION This test was developed and its performance characteristics determined by [facility] in a manner consistent with CLIA requirements. This test has not been cleared or approved by the [place]. Food and Drug Administration. Test Performed by: [facility] [place] [address] Senior Benefits Manager: John Pickett Ph.D.; CLIA# [id number]:LEFT URETERAL STONENormalProFirelands Regional Medical Center South [place]ust[place] Ezuosupfgeuhuy482% Calcium oxalate monohydrate.NormalProBrecksville Va / Crille HospitalBASIC METABOLIC PANLon 06-27-2024 Anion gap [Moles/Vol]11 mmol/LNormal5-15[facility] Hillcrest HospitalComment on above:Performed By: #### PINR, 16188-8, CMP, 60780-0, 2777-1, CBCA, 00515-1 #### [facility] ([id number]) [address], [address] [place], [place] [address]Ysfnthm [Mass/Vol]10.0 mg/dLNormal8.5-10.5POhioHealth Grove City Methodist HospitalComment on above:Performed By: #### PINR, 73563-8, CMP, 30009-3, 2777-1, CBCA, 08291-0 #### [facility] ([id number]) [address], [address] [place], [place] [address]Vzpnqxeu [Moles/Vol]102 mmol/GYfueob16-382XjqEdufcg [place] HospitalComment on above:Performed By: #### PINR, 44539-5, CMP, 39638-4, 2777-1, CBCA, 26951-7 #### [facility] ([id number]) [address], [facility] [address] [place], [place] [address]DD0 [Moles/Vol]25 mmol/DCdndte55-47MigJtqhrt [facility] Comment on above:Performed By: #### PINR, 81149-7, CMP, 24209-5, 2777-1, CBCA, 97591-1 #### [facility] ([id number]) [address], [facility] [address] [place], [place] [address]Dvheteqqkt [Mass/Vol]0.61 mg/dLNormal0.40-1.00ProBrecksville Va / Crille HospitalComment on above:Result Comment: METHOD TRACEABLE TO IDMS STANDARD Performed By: #### PINR, 01777-7, CMP, 59808-8, 2777-1, CBCA, 58343-7 #### [facility] ([id number]) [address] [address] [place], [place] [address]bZOG (CKD-EPI) NON-RACE DEPENDENT>90Normal>59ProHighland District Hospital HospitalComment on above:Result Comment: Reported eGFR is based on the CKD-EPI 2020 equation that does not use a race coefficient.Performed By: #### PINR, 77765-3, CMP, 45945-8, 2777- 1, CBCA, 82987-6 #### [facility] ([id number]) [address], [address] [place], [place] [address]Cugussw [Mass/Vol]111 mg/yRMpxl90-31XhpLkifowBrecksville Va / Crille Hospital Comment on above:Performed By: #### PINR, 96594-6, CMP, , 2776-07, CBCA, 63390-3 #### [facility] ([id number]) [address], [address] [place], [place] [address]Dhslcgpap [Moles/Vol]3.5 mmol/LNormal3.5-5.0ProHighland District Hospital HospitalComment on above:Performed By: #### BERNARD, 23543-9, CMP, , 2776-07, CBCA, 70556-8 #### [facility] ([id number]) [address], [address] [place], [place] [address]Efkqih [Moles/Vol]138 mmol/YLsylwi917-525LraYzbpks [place] HospitalComment on above:Performed By: #### BERNARD, 02438-7, CMP, , 2776-07, CBCA, 65997-3 #### [facility] ([id number]) [address], [address] [place], [place] [address]Rwpg nitrogen [Mass/Vol]20 mg/dLNormal5-27ProHighland District Hospital HospitalComment on above:Performed By: #### PINR, 10088-6, CMP, , 2776-07, CBCA, 37313-9 #### [facility] ([id number]) [address], [address] [place], [place] [address]ANXOYWUY BLOOD COUNTon 26-16-9602Nudfmmqwjqc distribution width (RBC) [Ratio]16.0 %High11.5-15.0ProHighland District Hospital HospitalComment on above: Performed By: #### PINR, 18607-2, CMP, 33908-4, 2777-1, CBCA, 50968-7 #### [facility] ([id number]) [address], [address] [place], [place] [address]Agmlowecxf (Bld) [Volume fraction]38.2 %Hgftlr83-19WlnBdxpmk [facility] Springs HospitalComment on above:Performed By: #### PINR, 24910-7, CMP, 40158-6, 2777-1, CBCA, 17647-1 #### [facility] ([id number]) [address], [address] [place], [place] [address]Ffplaajedw (Bld) [Mass/Vol]12.8 g/sPJtngns16.7-15.5[facility] HospitalComment on above:Performed By: #### PINR, 03432-3, CMP, 80951-8, 2777-1, CBCA, 51290-1 #### [facility] ([id number]) [address], [address] [place], [place] [address]FBR (RBC) [Entitic mass]30.5 fbXbpveh28-82BxzRcnxku [facility] HospitalComment on above:Performed By: #### PINR, 08416-0, CMP, 00017-7, 2777-1, CBCA, 25296-9 #### [facility] ([id number]) [address], [address] [place], [place] [address]KTIA (RBC) [Mass/Vol]33.5 g/oRItfvjy24-90CdvVynbgy [facility] HospitalComment on above:Performed By: #### PINR, 46337-5, CMP, 78599-5, 2777-1, CBCA, 83430-1 #### [facility] ([id number]) [address], [address] [place], [place] [address]QZA (RBC) [Entitic vol]91 uKMrlbbm12-062ZoaFektts [place] HospitalComment on above:Performed By: #### PINR, 16046-7, CMP, 88126-9, 2777-1, CBCA, 03258-6 #### [facility] ([id number]) [address], [address] [place], [place] [address]Killmbwo mean volume (Bld) [Entitic vol]7.5 fLNormal7-12 [facility] HospitalComment on above:Performed By: #### PINR, 48365-1, CMP, 51897-2, 2777-1, CBCA, 78904-0 #### [facility] ([id number]) [address], [address] [place], [place] [address]Yxqddurqb (Bld) [#/Vol]213 10*3/vULoogoe016-348OblLtgfkt [facility] HospitalComment on above:Performed By: #### PINR, 69236-2, CMP, 56404-4, 2777-1, CBCA, 14916-4 #### [facility] ([id number]) [address], [address] [place], [place] [address]RPU COUNT4.20 X10E12/LNormal3.80-5.20ProHigh[facility] Hospital Hospital Comment on above:Performed By: #### PINR, 25466-0, CMP, 08612-5, 2777-1, CBCA, 06338-4 #### [facility] ([id number]) [address], [address] [place], [place] [address]WBQ (Bld) [#/Vol]9.9 10*3/uLNormal4.0-11.0[facility] HospitalComment on above:Performed By: #### PINR, 24327-7, CMP, 28503-2, 2777-1, CBCA, 91374-0 #### [facility] ([id number]) [address], [address] [place], [place] [address]TZPXPZMIRAei 33-83-0309Iryzwycsb Ql (U)NegativeNormalNEG [facility] HospitalComment on above:Performed By: #### UA #### [facility] ([id number]) [address] [facility], [address] [place], [place] [address]JLPJT/HGBNegativeNormalNEGProSt. Luke'S Health [facility] The Woodlands HospitalComment on above:Performed By: #### UA #### [facility] ([id number]) [address] [facility], [address] [place], [place] [address]Huicc (U)YELLOWNormalYELLOWProSt. Luke'S Health – The Woodlands HospitalComment on above:Performed By: #### UA #### [facility] ([id number]) [address] [facility], [address] [place], [place] [address]Gteqoop Ql (U)NegativeNormalNEGProSt. Luke'S Health – The Woodlands HospitalComchelsea hospital on above:Performed By: #### UA #### [facility] ([id number]) [address] [facility], [address] [place], [place] [address]Vdnoysk Ql (U)NegativeNormalNEGProSt. Luke'S Health – The Woodlands HospitalComchelsea hospital on above:Performed By: #### UA #### [facility] ([id number]) [address] [place], [place] [address]Qgkngbdia esterase Test strip Ql (U)SmallAbnormalNEGProSt. Luke'S Health – The Woodlands HospitalComchelsea hospital on above:Performed By: #### UA #### [facility] ([id number]) [address] [facility], [address] [place], [place] [address]GLRPAFPJEYUNNBgkcgaojFNNALgpSaftdl [facility] [place] [facility] HospitalComchelsea hospital on above:Performed By: #### UA #### [facility] ([id number]) [address] [facility], [address] [place], [place] [address]Wpyejib Ql (U)NegativeNormalNEGProSt. Luke'S Health – The Woodlands HospitalComment on above:Performed By: #### UA #### [facility] ([id number]) [address], [address] [place], [place] [address]zR (U)6.5 [pH]Normal5.0-8.5PAultman Alliance Community HospitalComment on above:Performed By: #### UA #### [facility] ([id number]) [address], [address] [place], [place] [address]Keauuua Ql (U)NegativeNormalNEGProSt. Luke'S Health – The Woodlands HospitalComment on above:Performed By: #### UA #### [facility] ([id number]) [address] [place], [place] [address]E.B.CELLS1 /hpfNormal0-5PAultman Alliance Community HospitalComment on above:Performed By: #### UA #### [facility] ([id number]) [address] [place], [place] [address]Tesleywe gravity (U) [Rel density]1.599Stgojj6.003-1.035 [facility] HospitalComment on above:Performed By: #### UA #### [facility] ([id number]) [address], [address] [place], [place] [address]DLGRLJBF EPITHELIUM4 /hpfNormal0-5PA[facility] Comment on above:Performed By: #### UA #### [facility] ([id number]) [address], [address] [place], [place] [address]MRRTFDMZPSWGAQFhzpkeGGRROSwmLmevym [facility] HospitalComment on above:Performed By: #### UA #### [facility] ([id number]) [address], [address] [place], [place] [address]Cdeomirldcli (U) [Mass/Vol]mg/dLNormal<1.1PAultman Alliance Community HospitalComment on above:Performed By: #### UA #### [facility] ([id number]) [address], [address] [place], [place] [address]Y.B.CELLS6 /hpfHigh0-5PAultman Alliance Community HospitalComment on above:Performed By: #### UA #### [facility] ([id number]) [address], [address] [place], [place] [address]OJZUE CULTUREon 36-27-6494Lhmmyhvd identified Cx Nom (U)CULTURE RESULTS <10,000 ORGANISMS/ML NORMAL URO GENITAL FLORANormalProMedica [facility] Hospital Comment on above:Performed By: #### 630-4 #### [facility] ([id number]) [address] [place], [place] [address]Ajlqdcmne Auto (Bld) [#/Vol]on 76-18-1930Noqmwodcc (Bld) [#/Vol] Automated basophil count0.0-0.1FElyria Memorial HospitalBasophils/100 WBC Auto (Bld)on 42-52-3904Turhelyzl/100 WBC (Bld)Automated basophil %0.2-2.0 [facility] CenterEosinophils/100 WBC Auto (Bld)on 05-30-2024 Eosinophils/100 WBC (Bld)Automated eosinophil %0.9-7.0[facility] CenterErythrocyte distribution width Auto (RBC) [Ratio]on 39-31-4592Qcndqyqwblx distribution width (RBC) [Ratio]Erythrocyte distribution width [Ratio] by Automated count11.0-15.0[facility] CenterEstimated glomerular filtration rate (GFR) non- Americanon 22-57-9338ZJP/1.73 sq M.predicted among non-blacks MDRD (S/P/Bld) [Vol rate/Area]Estimated glomerular filtration rate (GFR) non->=60 mL/min/1.73m 2FElyria Memorial HospitalGlobulin Calc (S) [Mass/Vol]on 21-77-4158Xqcbuttv (S) [Mass/Vol]Serum globulin measurement by calculation (mass/volume)[facility] CenterHematocrit Auto (Bld) [Volume fraction]on 97-32-0412Jnwquxfwky (Bld) [Volume fraction]Hematocrit [Volume Fraction] of Blood by Automated count 36.0-48.0[facility] CenterHemoglobin [Mass/volume] in Bloodon 71-54-1726Vbcpnusnyd (Bld) [Mass/Vol]Hemoglobin [Mass/volume] in Blood12.0-16.0 [facility] CenterLaboratory - Chemistry and Chemistry - challengeon 13-17-6653Pfwfsna [Mass/Vol]3.0 g/dLLow3.4-5.0[facility] CenterALP [Catalytic activity/Vol]130 U/MUkyu24-233RosgbylitCincinnati Va Medical CenterALT [Catalytic activity/Vol]62 U/GHlec72-49JivuunaieCincinnati Va Medical CenterAST [Catalytic activity/Vol]33 U/T81-95FwaoaatjvCincinnati Va Medical CenterBilirubin [Mass/Vol]0.4 mg/dL0.2-1.0[facility] Calcium [Mass/Vol]9.8 mg/dL8.5-10.1FElyria Memorial HospitalChloride [Moles/Vol]102 mmol/W90-285WxhjdakerCincinnati Va Medical CenterCO2 [Moles/Vol]27.9 mmol/L21.0-32.0[facility] CenterCreatinine [Mass/Vol]0.88 mg/dL 0.55-1.02[facility] CenterGFR/1.73 sq M.predicted MDRD (S/P/Bld) [Vol rate/Area]mL/min/{1.73_m2}>=60 mL/min/1.73m 2FElyria Memorial HospitalGlucose [Mass/Vol]99 mg/lO77-975YdjdyeqxwCincinnati Va Medical CenterPotassium [Moles/Vol]4.2 mmol/L3.5-5.1FElyria Memorial HospitalProtein [Mass/Vol] 7.7 g/dL6.4-8.2FMetroHealth Main Campus Medical Centerodium [Moles/Vol]140 mmol/L 136-145[facility] CenterUrea nitrogen [Mass/Vol]14.0 mg/dL 7.0-18.0[facility] CenterUrea nitrogen/Creatinine [Mass ratio] 15.9 mg/mgCincinnati Va Medical CenterLaboratory - Hematology and Cell countson 74-79-8303Ohpugrpd granulocytes/100 WBC (Bld)0.5 %0.0-0.5FElyria Memorial HospitalLeukocytes [#/volume] corrected for nucleated erythrocytes in Blood by Automated counon 71-96-4193AJF corrected for nucl RBC Auto (Bld) [#/Vol]Leukocytes [#/volume] corrected for nucleated erythrocytes in Blood by Automated coun4.0-11.0[facility] CenterLymphocytes Auto (Bld) [#/Vol]on 04-99-9368Emstpvihzfh (Bld) [#/Vol]Lymphocytes [#/volume] in Blood by Automated count1.2-3.8[facility] CenterLymphocytes/100 WBC Auto (Bld)on 95-10-1111Ovvobjadvvk/100 WBC (Bld)Lymphocytes/100 leukocytes in Blood by Automated count20.5-60.0[facility] HospitalH Auto (RBC) [Entitic mass]on 50-18-1801FYM (RBC) [Entitic mass]MCH [Entitic mass] by Automated count26.7-34.0[facility] CenterMCHC Auto (RBC) [Mass/Vol]on 61-22-9651YMMB (RBC) [Mass/Vol]MCHC [Mass/volume] by Automated count29.9-35.2FElyria Memorial HospitalMCV Auto (RBC) [Entitic vol]on 36-48-5460ZLE (RBC) [Entitic vol]MCV [Entitic volume] by Automated count 81.0-99.0[facility] CenterMonocytes Auto (Bld) [#/Vol]on 05-49-2100Qibyhvmzj (Bld) [#/Vol]Automated blood monocyte count0.3-0.8[facility] CenterMonocytes/100 WBC Auto (Bld)on 08-85-7049Sdkbdtmjx/100 WBC (Bld)Automated monocyte %1.7-12.0[facility] Neutrophils Auto (Bld) [#/Vol]on 85-28-2748Gfzrkdobkaj (Bld) [#/Vol]Neutrophils [#/volume] in Blood by Automated count1.4-6.5FElyria Memorial Hospital Neutrophils/100 WBC Auto (Bld)on 11-57-2479Gldcejoylng/100 WBC (Bld)Automated neutrophil %43.0-75.0[facility] CenterNo Panel Informationon 46-97-3631Nnhlzqhmogu # (Auto)0.1 10 3/uL0.0-0.7FElyria Memorial HospitalImmature Granulocyte # (Auto)0.05 10 3/uLHigh0.00-0.03[facility] CenterPlatelet mean volume Auto (Bld) [Entitic vol]on 76-30-2295Wrqshuku mean volume (Bld) [Entitic vol]Platelet mean volume [Entitic volume] in Blood by Automated count9.5-13.5FElyria Memorial HospitalPlatelets Auto (Bld) [#/Vol]on 22-90-1212Vcevrtgto (Bld) [#/Vol]Platelets [#/volume] in Blood by Automated sjxee891-028PjjouwntzCincinnati Va Medical CenterRBC Auto (Bld) [#/Vol]on 60-64-8858FQQ (Bld) [#/Vol]Erythrocytes [#/volume] in Blood by Automated count Low4.20-5.40As[facility]ula General Hospitalerum or plasma albumin/globulin mass ratioon 62-84-2011Svdovvc/Globulin [Mass ratio]Serum or plasma albumin/globulin mass ratioAshtabula General Hospitalerum or plasma anion gap determinationon 84-39-9979Jwwbi gap [Moles/Vol]Serum or plasma anion gap determinationCincinnati Va Medical CenterBASIC METABOLIC PANLon 95-31-2261Bfnkj gap [Moles/Vol]8 mmol/LNormal5-15[facility] Comment on above:Performed By: #### PINR, 46293-0, CMP, 78963-7, 2777-1, CBCA, 82943-4 #### [facility] ([id number]) [address] [facility], [address] [place], [place] [address]Dsdhgvq [Mass/Vol]8.2 mg/dLLow8.5-10.5POhioHealth Grove City Methodist Hospital Comment on above:Performed By: #### PINR, 93650-7, CMP, 85910-1, 7-1, CBCA, 30124-4 #### [facility] ([id number]) [address], [address] [place], [place] [address]Ayalffwg [Moles/Vol]104 mmol/FTjxplk10-428HliYjfxyx [place] HospitalComment on above:Performed By: #### PINR, 70953-3, CMP, 16088-6, 7-1, CBCA, 65150-1 #### [facility] ([id number]) [address], [address] [place], [place] [address]LT7 [Moles/Vol]26 mmol/EWtkycd39-84UojVpuqcfOhioHealth Grove City Methodist Hospital Comment on above:Performed By: #### BERNRAD, 56155-9, CMP, 62032-2, 7-1, CBCA, 40895-7 #### [facility] ([id number]) [address], [address] [place], [place] [address]Okqmpslvrn [Mass/Vol]0.71 mg/dLNormal0.40-1.00ProBrecksville Va / Crille HospitalComment on above:Result Comment: METHOD TRACEABLE TO IDMS STANDARD Performed By: #### BERNARD, 44455-3, CMP, 88311-2, 7-1, CBCA, 84053-4 #### [facility] ([id number]) [address], [address] [place], [place] [address]qRFF (CKD-EPI) NON-RACE DEPENDENT>90Normal>59ProBrecksville Va / Crille HospitalComment on above:Result Comment: Reported eGFR is based on the CKD-EPI 2020 equation that does not use a race coefficient.Performed By: #### PINR, 64042-4, CMP, 50045-5, 7- 1, CBCA, 14719-1 #### [facility] ([id number]) [address], [address] [place], [place] [address]Nngcdqk [Mass/Vol]101 mg/oQOiww88-66VbtQtdpanCleveland Clinic Hillcrest Hospital Comment on above:Performed By: #### PINR, 49914-3, CMP, 76467-7, 2777-1, CBCA, 03975-8 #### [facility] ([id number]) [address], [address] [place] [address]Owoubmklq [Moles/Vol]4.4 mmol/LNormal3.5-5.0ProBrecksville Va / Crille HospitalComment on above:Result Comment: SPECIMEN HEMOLYZED, RESULTS INCREASED MODERATELY HEMOLYZEDPerformed By: #### PINR, 47776-7, CMP, 35428-0, 2777-1, CBCA, 13573-9 #### [facility] ([id number]) [address] [place] [address]Sbyhfd [Moles/Vol]138 mmol/ULtghbf779-367QpeFghdgi [place] HospitalComment on above:Performed By: #### PINR, 92492-0, CMP, 76440-4, 2777-1, CBCA, 23455-3 #### [facility] ([id number]) [address], [facility] [address] [place], [place] [address]Nrfj nitrogen [Mass/Vol]19 mg/dLNormal5-27ProBrecksville Va / Crille HospitalComment on above:Performed By: #### PINR, 13400-6, CMP, 36291-9, 2777-1, CBCA, 43670-7 #### [facility] ([id number]) [address], [address] [place], [place] [address]Kqvcp Metabolic Panelon 73-40-1296Vcuva gap [Moles/Vol]8 mmol/L5 - 15 mmol/LProMedica Health SystemCalcium [Mass/Vol]8.2 mg/dLLow8.5 - 10.5 mg/dLProMedica Health SystemChloride [Moles/Vol]104 mmol/L98 - 109 mmol/L [facility] Health SystemCO2 [Moles/Vol]26 mmol/L22 - 32 mmol/LProMedica Health SystemCreatinine [Mass/Vol]0.71 mg/dL0.40 - 1.00 mg/dLTrumbull Regional Medical Center Comment on above:METHOD TRACEABLE TO IDAZ STANDARDeGFR (CKD-EPI)non-race dependent- [facility] CenterComment on above: Reported eGFR is based on the CKD-EPI 2020 equation that does not use a race coefficient. Glucose [Mass/Vol]101 mg/qKJwzj90 - 99 mg/dLTrumbull Regional Medical Center Interpretation and review of laboratory resultsAbnormalTrumbull Regional Medical Center Potassium [Moles/Vol]4.4 mmol/L3.5 - 5.0 mmol/[facility] HospitalComment on above:SPECIMEN HEMOLYZED, RESULTS INCREASED MODERATELY HEMOLYZED Sodium [Moles/Vol]138 mmol/L134 - 146 mmol/[facility] HospitalUrea nitrogen [Mass/Vol]19 mg/dL5 - 27 mg/dLTrumbull Regional Medical CenterCBC AND AUTO DIFFon 34-11-8991Isuuhlurern (Bld) [#/Vol]0.5 10*3/uLHigh0.0-0.4[facility] HospitalComment on above:Performed By: #### BERNARD, 40528-3, CMP, 05990-0, 2777-1, CBCA, 65824-5 #### [facility] ([id number]) [address], [address] [place], [place] [address]Dzudwkuxbbc/100 WBC (Bld)4.8 %NormalCleveland Clinic Hillcrest Hospital Comment on above:Performed By: #### PINR, 60658-3, CMP, 32930-0, 2777-1, CBCA, 17146-3 #### [facility] ([id number]) [address], [address] [place], [place] [address]Komgdydmnxh distribution width (RBC) [Ratio]15.0 %Normal 11.5-15.0[facility] HospitalComment on above:Performed By: #### PINR, 36671-7, CMP, 03645-0, 2777-1, CBCA, 95874-8 #### [facility] ([id number]) [address], [address] [place], [place] [address]Hhgiyrhqsu (Bld) [Volume fraction]35.1 %Leuxrs18-37WijObkopu [place] HospitalComment on above:Performed By: #### PINR, 88114-3, CMP, 47363-3, 2777-1, CBCA, 83949-7 #### [facility] ([id number]) [address], [address] [place], [place] [address]Bebdcvtjkj (Bld) [Mass/Vol]12.2 g/iCMexhky19.7-15.5ProMedKettering Health HospitalComment on above:Performed By: #### PINR, 60900-0, CMP, 87583-0, 2777-1, CBCA, 74688-8 #### [facility] ([id number]) [address], [address] [place], [place] [address]Gjiphghwweo (Bld) [#/Vol]3.9 10*3/uLHigh1.0-3.5ProMedKettering Health HospitalComment on above:Performed By: #### PINR, 92099-3, CMP, 52799-1, 2777-1, CBCA, 33689-0 #### [facility] ([id number]) [address], [address] [place], [place] [address]Bwnbccqfgid/100 WBC (Bld)39.4 %NormalProHighland District Hospital Hospital Comment on above:Performed By: #### PINR, 45767-2, CMP, 62899-5, 2777-1, CBCA, 03430-5 #### [facility] ([id number]) [address], [address] [place], [place] [address]WHV (RBC) [Entitic mass]30.3 xlVrhmbs44-53LehHxychz [place] HospitalComment on above:Performed By: #### PINR, 49070-9, CMP, 68881-2, 2777-1, CBCA, 13865-7 #### [facility] ([id number]) [address], [address] [place], [place] [address]BGJC (RBC) [Mass/Vol]34.6 g/yOShhkql09-97FyxGqleve [facility] HospitalComment on above:Performed By: #### PINR, 89176-5, CMP, 33817-1, 2777-1, CBCA, 35589-3 #### [facility] ([id number]) [address], [address] [place], [place] [address]XTO (RBC) [Entitic vol]88 tSGeholl01-330CxwXslejt [facility] HospitalComment on above:Performed By: #### PINR, 29544-5, CMP, 41721-1, 2777-1, CBCA, 52948-6 #### [facility] ([id number]) [address], [address] [place], [place] [address]Snybhczwm (Bld) [#/Vol]0.4 10*3/uLNormal0-0.9Pro[facility]ica Ashraf HospitalComment on above:Performed By: #### PINR, 56250-5, CMP, 62176-6, 2777-1, CBCA, 23872-3 #### [facility] ([id number]) [address], [address] [place], [place] [address]Nepedscfw/100 WBC (Bld)3.8 %NormalProMedica [facility] Comment on above:Performed By: #### PINR, 40356-8, CMP, 35749-6, 2777-1, CBCA, 63527-9 #### [facility] ([id number]) [address], [address] [place], [place] [address]CYXBIXSRI6.0 %NormalProMedica Ashraf HospitalComment on above: Performed By: #### PINR, 67602-0, CMP, 84389-1, 2777-1, CBCA, 41356-6 #### [facility] ([id number]) [address], [address] [place], [place] [address]Xujcobkfbjr (Bld) [#/Vol]5.0 10*3/uLNormal1.5-6.6[facility] HospitalComment on above:Performed By: #### PINR, 74703-8, CMP, 91911-6, 2777-1, CBCA, 75193-0 #### [facility] ([id number]) [address], [address] [place], [place] [address]Jrsxkwlv mean volume (Bld) [Entitic vol]8.4 fLNormal7-12 [facility] HospitalComment on above:Performed By: #### PINR, 89552-4, CMP, 43372-7, 2777-1, CBCA, 46695-7 #### [facility] ([id number]) [address], [address] [place], [place] [address]Jslpawzkf (Bld) [#/Vol]137 10*3/lYPme974-835CcmKkfvgm [facility] HospitalComment on above:Performed By: #### PINR, 15911-4, CMP, 04884-6, 2777-1, CBCA, 33270-1 #### [facility] ([id number]) [address], [address] [place], [place] [address]WAX COUNT4.01 X10E12/LNormal3.80-5.20[facility] Comment on above:Performed By: #### PINR, 94661-4, CMP, 56189-4, 2777-1, CBCA, 70235-1 #### [facility] ([id number]) [address], [address] [place], [place] [address]VTU morphology finding Nom (Bld)NORMALNormalProMedica Defuniak Springs HospitalComment on above:Performed By: #### PINR, 40431-8, CMP, 50322-7, 2777-1, CBCA, 90834-5 #### [facility] ([id number]) [address], [address] [place], [place] [address]XGS YZVHDYPBQK58.0 %NormalProBrecksville Va / Crille HospitalComment on above:Performed By: #### PINR, 63040-0, CMP, 39327-1, 2777-1, CBCA, 97388-6 #### [facility] ([id number]) [address], [address] [place], [place] [address]JOW (Bld) [#/Vol]9.8 10*3/uLNormal4.0-11.0[facility]st HospitalComment on above:Performed By: #### PINR, 16640-6, CMP, 35926-5, 2777-1, CBCA, 71435-8 #### [facility] ([id number]) [address], [address] [place], [place] [address]NZL auto differentialon 58-35-3589Tnhpsssumfk (Bld) [#/Vol]0.5 10*3/uLHealthSouth Medical CenterEosinophils/100 WBC (Bld)4.8 %[facility] Medical CenterErythrocyte distribution width (RBC) [Ratio]15 %11.5 - 15.0 %[facility] Medical CenterHematocrit (Bld) [Volume fraction]35.1 %35 - 47 %[facility] CenterHemoglobin (Bld) [Mass/Vol]12.2 g/dL11.7 - 15.5 g/dLTrumbull Regional Medical CenterInterpretation and review of laboratory resultsAbnormalTrumbull Regional Medical CenterLymphocytes (Bld) [#/Vol]3.9 10*3/uLHealthSouth Medical Center Lymphocytes/100 WBC (Bld)39.4 %[facility]hillH (RBC) [Entitic mass] 30.3 pg27 - 34 [facility] HospitalMCHC (RBC) [Mass/Vol]34.6 g/dL32 - 36 g/dLTrumbull Regional Medical CenterMCV (RBC) [Entitic vol]88 fL80 - 100 [facility] Health SystemMonocytes (Bld) [#/Vol]0.4 10*3/uLTrumbull Regional Medical Center Monocytes/100 WBC (Bld)3.8 %[facility] Medical CenterMyelocytes/100 WBC (Bld)1 % [facility] Medical CenterNeutrophils (Bld) [#/Vol]5 10*3/uLTrumbull Regional Medical Center Platelet mean volume (Bld) [Entitic vol]8.4 fL7 - 12 [facility] Platelets (Bld) [#/Vol]137 10*3/uLLowTrumbull Regional Medical CenterPolymorphonuclear cells/100 WBC (Bld)NORMALProOur Lady Of Mercy Hospital - AndersonRBC (Bld) [#/Vol]4.01 10*6/uL [facility] Morgantonegmented neutrophils/100 WBC (Bld)51 %[facility] Medical CenterWBC corrected for nucl RBC Auto (Bld) [#/Vol]9.8[facility] of PhiladelphiaMAGNESIUMon 06-04-5826Jateklatt [Mass/Vol]1.8 mg/dLNormal 1.8-2.6[facility] Hill[facility]st HospitalComment on above:Performed By: #### BERNARD, 00474- 9, CMP, 12980-3, 2777-1, CBCA, 05951-6 #### [facility] ([id number]) [address], [address] [place], [place] [address]Whacnrlodgp 97-29-8468Cqfwgqqcw [Mass/Vol]1.8 mg/dL1.8 - 2.6 mg/dLTrumbull Regional Medical CenterNo Panel Informationon 66-59-4404ZuwNjcsupFirelands Regional Medical Center South CampusBASIC METABOLIC PANLon 56-05-6908Buzmn gap [Moles/Vol]10 mmol/LNormal5-15 [facility] HospitalComment on above:Performed By: #### PINR, 11174-3, CMP, 59484-2, 2777-1, CBCA, 02915-8 #### [facility] ([id number]) [address], [address] [place], [place] [address]Isnshts [Mass/Vol]8.9 mg/dLNormal8.5-10.5POhioHealth Grove City Methodist HospitalComment on above:Performed By: #### BERNARD, 01953-6, CMP, 92539-1, 2777-1, CBCA, 04563-6 #### [facility] ([id number]) [address], [address] [place] [address]Eiajwxht [Moles/Vol]105 mmol/VAlrfkc02-704UnsRvefof [place] HospitalComment on above:Performed By: #### BERNARD, 53356-6, CMP, 97296-4, 2777-1, CBCA, 25236-7 #### [facility] ([id number]) [address], [address] [place], [place] [address]AD5 [Moles/Vol]26 mmol/KZhhvkb85-07WjfRwgrfb [facility] Comment on above:Performed By: #### BERNARD, 02216-6, CMP, 12568-5, 7-1, CBCA, 75522-7 #### [facility] ([id number]) [address], [address] [place], [place] [address]Ungfmwgoob [Mass/Vol]0.79 mg/dLNormal0.40-1.00ProBrecksville Va / Crille HospitalComment on above:Result Comment: METHOD TRACEABLE TO IDMS STANDARD Performed By: #### BERNARD, 91008-6, CMP, 84175-3, 7-1, CBCA, 82553-2 #### [facility] ([id number]) [address], [address] [place], [place] [address]TGG/1.73 sq M.predicted among non-blacks MDRD (S/P/Bld) [Vol rate/Area]82 mL/min/{1.73_m2}Normal>59ProBrecksville Va / Crille HospitalComment on above: Result Comment: Reported eGFR is based on the CKD-EPI 2020 equation that does not use a race coefficient.Performed By: #### PINR, 13453-5, CMP, 10363-8, 2777- 1, CBCA, 67037-2 #### [facility] ([id number]) [address], [address] [place], [place] [address]Ztofqhi [Mass/Vol]89 mg/wUZajiuw48-82WnkUabojm [facility] Comment on above:Performed By: #### PINR, 85389-0, CMP, 15134-2, 2777-1, CBCA, 01138-9 #### [facility] ([id number]) [address], [address] [place], [place] [address]Kjbkagkfg [Moles/Vol]3.7 mmol/LNormal3.5-5.0ProMercy Health St. Rita'S Medical Centerca Defuniak Springs HospitalComment on above:Performed By: #### PINR, 39966-3, CMP, 93281-2, 7-1, CBCA, 49554-9 #### [facility] ([id number]) [address], [address] [place], [place] [address]Dtvzhj [Moles/Vol]141 mmol/ABbpxwx435-455BlaVimxia [place] HospitalComment on above:Performed By: #### PINR, 75236-9, CMP, 85530-6, 7-1, CBCA, 41402-1 #### [facility] ([id number]) [address], [address] [place], [place] [address]Zeon nitrogen [Mass/Vol]26 mg/dLNormal5-27ProHighland District Hospital HospitalComment on above:Performed By: #### PINR, 88592-0, CMP, 67680-7, 2777-1, CBCA, 08496-5 #### [facility] ([id number]) [address], [address] [place], [place] [address]Rxxtt Metabolic Panelon 70-64-2535Oytsb gap [Moles/Vol]10 mmol/L 5 - 15 mmol/LProMedwalker county hospital Health SystemCalcium [Mass/Vol]8.9 mg/dL8.5 - 10.5 mg/dL ProMSt. Luke's Hospital SystemChloride [Moles/Vol]105 mmol/L98 - 109 mmol/[facility] SystemCO2 [Moles/Vol]26 mmol/L22 - 32 mmol/[facility] System Creatinine [Mass/Vol]0.79 mg/dL0.40 - 1.00 mg/dLTrumbull Regional Medical CenterComment on above:METHOD TRACEABLE TO IDMS STANDARDeGFR (CKD-EPI)non-race kzwrjputb29- [facility] Medical CenterComment on above: Reported eGFR is based on the CKD-EPI 2020 equation that does not use a race coefficient. Glucose [Mass/Vol]89 mg/dL65 - 99 mg/dLTrumbull Regional Medical CenterPotassium [Moles/Vol]3.7 mmol/L3.5 - 5.0 mmol/[facility] SystemSodium [Moles/Vol] 141 mmol/L134 - 146 mmol/[facility] SystemUrea nitrogen [Mass/Vol]26 mg/dL5 - 27 mg/dLTrumbull Regional Medical CenterCBC AND AUTO DIFFon 00-37-3570UDYQBSWJ BASOPHIL0.0 X10E9/LNormal0.0-0.2POhioHealth Grove City Methodist HospitalComment on above: Performed By: #### BERNARD, 05499-8, ELROY, , 2776-, CBCA, 29624-2 #### [facility] ([id number]) [address], [address] [place], [place] [address]QOSBVDIR HAXXRVHIWL56.4 X10E9/LHigh1.5-6.6ProBrecksville Va / Crille HospitalComment on above:Performed By: #### BERNARD, 30624-7, CMP, 89860-5, 2776-1, CBCA, 81656-2 #### [facility] ([id number]) [address], [address] [place], [place] [address]Nmtvqcrxl/100 WBC (Bld)0.3 %NormalCleveland Clinic Hillcrest Hospital Comment on above:Performed By: #### BERNARD, 34620-7, CMP, , 2777-1, CBCA, 17396-3 #### [facility] ([id number]) [address], [address] [place], [place] [address]Mtumwoudkkk (Bld) [#/Vol]0.2 10*3/uLNormal0.0-0.4ProMedica Defuniak Springs HospitalComment on above:Performed By: #### BERNARD, 98246-1, CMP, 69394-7, 2776-, CBCA, 40131-5 #### [facility] ([id number]) [address], [address] [place], [place] [address]Xhzxvbegyvk/100 WBC (Bld)1.6 %NormalProHighland District Hospital Hospital Comment on above:Performed By: #### BERNARD, 22015-6, CMP, 92796-7, 2776-, CBCA, 28955-6 #### [facility] ([id number]) [address], [address] [address]Hmyikntvdur distribution width (RBC) [Ratio]15.4 %High11.5-15.0 [facility] Defuni[facility] Springs HospitalComment on above:Performed By: #### BERNARD, 47274-3, CMP, 25755-3, 2776-, CBCA, 82793-3 #### [facility] ([id number]) [address], [address] [place], [place] [address]Llcozbbiar (Bld) [Volume fraction]39.5 %Jnirzq88-39CsnZqjdzn [place] HospitalComment on above:Performed By: #### PINR, 68928-5, CMP, 70134-1, 7-1, CBCA, 68717-7 #### [facility] ([id number]) [address], [address] [place], [place] [address]Koykdofubo (Bld) [Mass/Vol]13.6 g/fHUbcsse85.7-15.5ProMedica Defuni[facility] Springs HospitalComment on above:Performed By: #### PINR, 53513-2, CMP, 31972-9, 2777-1, CBCA, 28527-6 #### [facility] ([id number]) [address], [address] [place], [place] [address]Yciqopdsqxt (Bld) [#/Vol]3.2 10*3/uLNormal1.0-3.5Pro[facility] Defuni[facility] Springs HospitalComment on above:Performed By: #### PINR, 12367-7, CMP, 28981-2, 2777-1, CBCA, 31371-6 #### [facility] ([id number]) [address], [address] [place], [place] [address]Kcbqynnxspq/100 WBC (Bld)21.7 %NormalProHighland District Hospital Hospital Comment on above:Performed By: #### PINR, 78371-4, CMP, 22933-1, 2777-1, CBCA, 12340-2 #### [facility] ([id number]) [address], [address] [place], [place] [address]WNB (RBC) [Entitic mass]30.2 mmRdddjo66-94GxbHxahon [place] HospitalComment on above:Performed By: #### PINR, 21423-6, CMP, 92531-1, 2777-1, CBCA, 90377-7 #### [facility] ([id number]) [address], [address] [place], [place] [address]IZPC (RBC) [Mass/Vol]34.3 g/cGRxkbzd91-17ZowMhrlka [place] HospitalComment on above:Performed By: #### PINR, 05776-0, CMP, 34281-3, 2777-1, CBCA, 59156-9 #### [facility] ([id number]) [address], [address] [place], [place] [address]NWP (RBC) [Entitic vol]88 lPNbpwkx26-897TanFeitkx Defuni[facility] Springs HospitalComment on above:Performed By: #### PINR, 79307-6, CMP, 31089-6, 2777-1, CBCA, 36540-9 #### [facility] ([id number]) [address], [address] [place], [place] [address]Dwbsuicgl (Bld) [#/Vol]0.7 10*3/uLNormal0-0.9ProMercy Health St. Rita'S Medical Centerca Defuni[place] Springs HospitalComment on above:Performed By: #### PINR, 22582-1, CMP, 39258-6, 2777-1, CBCA, 27264-0 #### [facility] ([id number]) [address], [address] [place], [place] [address]Iokviklph/100 WBC (Bld)5.1 %NormalCleveland Clinic Hillcrest Hospital Comment on above:Performed By: #### PINR, 32895-4, CMP, 87313-0, 2777-1, CBCA, 52603-0 #### [facility] ([id number]) [address], [address] [place], [place] [address]Twgajtejrzs/100 WBC (Bld)71.3 %NormalCleveland Clinic Hillcrest Hospital Comment on above:Performed By: #### PINR, 50477-1, CMP, 12480-0, 2777-1, CBCA, 37071-6 #### [facility] ([id number]) [address], [address] [place], [place] [address]Mzfuhmtm mean volume (Bld) [Entitic vol]8.3 fLNormal7-12 [facility] HospitalComment on above:Performed By: #### PINR, 15538-6, CMP, 96966-6, 2777-1, CBCA, 81767-9 #### [facility] ([id number]) [address], [address] [place], [place] [address]Ufngvicpk (Bld) [#/Vol]130 10*3/nHInj789-320OagSfnmhuBrecksville Va / Crille HospitalComment on above:Performed By: #### PINR, 95884-5, CMP, 50840-2, 2777-1, CBCA, 93010-5 #### [facility] ([id number]) [address], [address] [place], [place] [address]ETL COUNT4.49 X10E12/LNormal3.80-5.20[facility] Comment on above:Performed By: #### PINR, 92548-9, CMP, 42508-2, 2777-1, CBCA, 32953-2 #### [facility] ([id number]) [address], [address] [place], [place] [address]ZGS (Bld) [#/Vol]14.6 10*3/uLHigh4.0-11.0[facility] HospitalComment on above:Performed By: #### PINR, 70374-8, CMP, 61128-6, 2777-1, CBCA, 70486-3 #### [facility] ([id number]) [address], [address] [place], [place] [address]AVO auto differentialon 48-31-7057Lhtoetxxi (Bld) [#/Vol]0 10*3/uLBarre City HospitalMedioh Health SystemBasophils/100 WBC (Bld)0.3 %[facility] SystemEosinophils (Bld) [#/Vol]0.2 10*3/uLProMediKettering Health Hamilton SystemEosinophils/100 WBC (Bld)1.6 %[facility] Medical Centeredica Health SystemErythrocyte distribution width (RBC) [Ratio]15.4 %High11.5 - 15.0 %[facility] SystemHematocrit (Bld) [Volume fraction]39.5 %35 - 47 %[facility] Health SystemHemoglobin (Bld) [Mass/Vol]13.6 g/dL11.7 - 15.5 g/dLTrumbull Regional Medical CenterInterpretation and review of laboratory resultsAbnormalTrumbull Regional Medical CenterLymphocytes (Bld) [#/Vol]3.2 10*3/[facility] HealthLymphocytes/100 WBC (Bld)21.7 %[facility]-FairhillH (RBC) [Entitic mass]30.2 pg27 - 34 pgPFirelands Regional Medical Center South CampusMCHC (RBC) [Mass/Vol]34.3 g/dL32 - 36 g/dLTrumbull Regional Medical CenterMCV (RBC) [Entitic vol]88 fL80 - 100 [facility] SystemMonocytes (Bld) [#/Vol]0.7 10*3/uLTrumbull Regional Medical CenterMonocytes/100 WBC (Bld)5.1 %[facility] Medical CenterNeutrophils (Bld) [#/Vol]10.4 10*3/uLHealthSouth Medical CenterNeutrophils/100 WBC (Bld) 71.3 %[facility] Medical CenterPlatelet mean volume (Bld) [Entitic vol]8.3 fL7 - 12 [facility] SystemPlatelets (Bld) [#/Vol]130 10*3/uLUniversity Hospitals Parma Medical CenterRBC (Bld) [#/Vol]4.49 10*6/[facility] HealthWBC corrected for nucl RBC Auto (Bld) [#/Vol]14.6HighLifecare Hospital of Chester CountyCalcium.ionized (Bld) [Mass/Vol]on 58-90-7116GaiNvzxzuFirelands Regional Medical Center South Campus IONIZED CALCIUM4.8 mg/dLNormal4.5-5.3POhioHealth Grove City Methodist HospitalComment on above: Performed By: #### PINR, 58429-4, CMP, 38068-2, 2777-1, CBCA, 49247-2 #### [facility] ([id number]) [address] [place] [address], [address] [place], [place] [address]Jyubboo calciumon 42-64-5047Nfkasxc.ionized (Bld) [Mass/Vol]4.8 mg/dL4.5 - 5.3 mg/dLTrumbull Regional Medical CenterIonized magnesiumon 05-25-2024 Magnesium Ionized ISE (Bld) [Moles/Vol]0.56 mmol/L0.45 - 0.74 mmol/LProMedica Health SystemComment on above:NEW REFERENCE RANGEMAGNESIUMon 04-96-2373Mpvmmpbki [Mass/Vol]1.8 mg/dLNormal1.8-2.6ProBrecksville Va / Crille HospitalComment on above: Performed By: #### BERNARD, 73918-7, CMP, 16090-8, 2777-1, CBCA, 04075-8 #### [facility] ([id number]) [address] [place] [address], [address] [place], [place] [address]Ezgcnkjuryk 74-30-2938Gczlutptx [Mass/Vol]1.8 mg/dL1.8 - 2.6 mg/dLProOur Lady Of Mercy Hospital - AndersonMagnesium Ionized ISE (Bld) [Moles/Vol]on 05-25-2024 ProMedicElbow Lake Medical Center SystemMagnesium [Moles/Vol]0.56 mmol/LNormal0.45-0.74ProBrecksville Va / Crille HospitalComment on above:Result Comment: NEW REFERENCE RANGEPerformed By: #### BERNARD, 07196-6, CMP, 31687-6, 2777-1, CBCA, 85038-5 #### [facility] ([id number]) [address] [place] [address], [address] [place], [place] [address]Mf Panel Informationon 77-40-9531HjdXscrheFirelands Regional Medical Center South Campus POTASSIUMon 24-77-1000Rolaoqjjp [Moles/Vol]3.9 mmol/LNormal3.5-5.0ProBrecksville Va / Crille HospitalComment on above:Performed By: #### BERNARD, 91377-4, CMP, 38051-1, 2777-1, CBCA, 55894-8 #### [facility] ([id number]) [address] [place] [address], [address] [place], [place] [address]Imsdvnnaruv 11-81-1086Brjyfmsjh [Moles/Vol]3.9 mmol/L3.5 - 5.0 mmol/LProMedGalion Hospital SystemPotassium [Moles/Vol]on 98-90-3483YhlXlefmf Health SystemBacteria identified Aer cx Nom (Bld)on 46-98-8295Yoitqfksejsvoz and review of laboratory resultsAbnormalProMedica Health SystemService comment (Unsp spec) [Interp]ESCHERICHIA COLIAbnormalProMedica Health SystemService comment (Unsp spec) [Interp]FOR SUSCEPTIBILITY, SEE PREVIOUS REPORT.[facility] ProMedica Health SystemInterpretation and review of laboratory resultsAbnormal ProMjack hughston memorial hospitala Health SystemService comment (Unsp spec) [Interp]ESCHERICHIA COLI AbnormalProMedica Health SystemService comment (Unsp spec) [Interp]Detected Pro[facility] Health SystemProMercy Health St. Rita'S Medical Centerca Health SystemCBC AND AUTO DIFFon 89-78-0663Ufms form neutrophils/100 WBC (Bld)3.0 %NormalCleveland Clinic Hillcrest HospitalComment on above:Performed By: #### PINR, 97213-0, CMP, 86548-0, 2777-1, CBCA, 51913-6 #### [facility] ([id number]) [address], [address] [place], [place] [address]Vguxwoxeagi (Bld) [#/Vol]0.2 10*3/uLNormal0.0-0.4[facility] HospitalComment on above:Performed By: #### PINR, 16211-3, CMP, 76896-8, 2777-1, CBCA, 99375-0 #### [facility] ([id number]) [address], [address] [place], [place] [address]Etarhcmhmcd/100 WBC (Bld)1.0 %NormalSelect Medical Specialty Hospital [facility] Comment on above:Performed By: #### PINR, 57285-8, CMP, 62554-6, 2777-1, CBCA, 17724-4 #### [facility] ([id number]) [address], [address] [place], [place] [address]Vechxxctfuh distribution width (RBC) [Ratio]15.3 %High11.5-15.0 [facility] HospitalComment on above:Performed By: #### PINR, 05776-9, CMP, 20983-3, 2777-1, CBCA, 46179-1 #### [facility] ([id number]) [address], [address] [place], [place] [address]Hiorhscgeq (Bld) [Volume fraction]34.2 %Lzk67-26ZzoMwniyl [place] HospitalComment on above:Performed By: #### PINR, 17008-4, CMP, 18342-0, 2777-1, CBCA, 37858-7 #### [facility] ([id number]) [address], [address] [place], [place] [address]Bucmqpfaut (Bld) [Mass/Vol]11.5 g/dLLow11.7-15.5ProMedKettering Health HospitalComment on above:Performed By: #### PINR, 37194-9, CMP, 24472-7, 2777- 1, CBCA, 29337-3 #### [facility] ([id number]) [address], [address] [place], [place] [address]Miqamlqndwg (Bld) [#/Vol]2.4 10*3/uLNormal1.0-3.5PMercy Memorial Hospital HospitalComment on above:Performed By: #### PINR, 81344-0, CMP, 65043-7, 2777-1, CBCA, 96820-7 #### [facility] ([id number]) [address], [address] [place], [place] [address]Fbryncnkvib/100 WBC (Bld)11.0 %NormalProHighland District Hospital Hospital Comment on above:Performed By: #### PINR, 69141-6, CMP, 38794-5, 2777-1, CBCA, 04642-1 #### [facility] ([id number]) [address], [address] [place], [place] [address]XCB (RBC) [Entitic mass]29.8 jiRxtcnh60-02XehMxapwd [place] HospitalComment on above:Performed By: #### PINR, 84776-0, CMP, 88156-2, 2777-1, CBCA, 92679-6 #### [facility] ([id number]) [address], [address] [place], [place] [address]NPZW (RBC) [Mass/Vol]33.7 g/jPRppela60-30PunDpeqwi Defuniak Springs HospitalComment on above:Performed By: #### PINR, 48489-8, CMP, 03886-7, 2777-1, CBCA, 82400-6 #### [facility] ([id number]) [address], [address] [place], [place] [address]VVS (RBC) [Entitic vol]89 jUKwhwuy99-162KtjJfccle [place] HospitalComment on above:Performed By: #### PINR, 61256-4, CMP, 41869-8, 2777-1, CBCA, 48499-5 #### [facility] ([id number]) [address], [address] [place], [place] [address]Yoglnybmf (Bld) [#/Vol]0.9 10*3/uLNormal0-0.9ProHighland District Hospital HospitalComment on above:Performed By: #### PINR, 96360-1, CMP, 50620-1, 2777-1, CBCA, 82265-1 #### [facility] ([id number]) [address], [address] [place], [place] [address]Lnifokkbl/100 WBC (Bld)4.0 %NormalProHighland District Hospital Hospital Comment on above:Performed By: #### PINR, 56458-6, CMP, 04487-6, 2777-1, CBCA, 69092-2 #### [facility] ([id number]) [address], [address] [place], [place] [address]Fycpkromlys (Bld) [#/Vol]18.5 10*3/uLHigh1.5-6.6ProMercy Health St. Rita'S Medical Centerca Ashraf HospitalComment on above:Performed By: #### PINR, 30549-2, CMP, 18271-0, 2777- 1, CBCA, 64520-3 #### [facility] ([id number]) [address], [address] [place] [address]Fgoobdqp mean volume (Bld) [Entitic vol]8.6 fLNormal7-12 [facility] Ashraf HospitalComment on above:Performed By: #### PINR, 87543-8, CMP, 76625-4, 2777-1, CBCA, 67835-8 #### [facility] ([id number]) [address], [address] [place], [place] [address]Abekqiloh (Bld) [#/Vol]103 10*3/eYGgc024-356BxxRifmia Ashraf HospitalComment on above:Performed By: #### PINR, 41342-9, CMP, 33663-2, 2777-1, CBCA, 54121-2 #### [facility] ([id number]) [address], [address] [place], [place] [address]QGX COUNT3.87 X10E12/LNormal3.80-5.20[facility] Comment on above:Performed By: #### PINR, 82950-8, CMP, 45581-1, 2777-1, CBCA, 28308-9 #### [facility] ([id number]) [address], [address] [place], [place] [address]UAA morphology finding Nom (Bld)NORMALNormalProMedica Ashraf HospitalComment on above:Performed By: #### PINR, 41892-4, CMP, 97741-0, 2777-1, CBCA, 48139-6 #### [facility] ([id number]) [address], [address] [place], [place] [address]UJI WZRKMDMIMP87.0 %NormalProMedica Ashraf HospitalComment on above:Performed By: #### PINR, 12079-8, CMP, 96844-5, 2777-1, CBCA, 23230-1 #### [facility] ([id number]) [address], [address] [place], [place] [address]AVB (Bld) [#/Vol]22.0 10*3/uLHigh4.0-11.0[facility] HospitalComment on above:Performed By: #### PINR, 55143-9, CMP, 23262-0, 2777-1, CBCA, 92474-6 #### [facility] ([id number]) [address] [place], [place] [address]PSC auto differentialon [id number] form neutrophils/100 WBC (Bld)3 %[facility] CenterEosinophils (Bld) [#/Vol]0.2 10*3/uLTrumbull Regional Medical CenterEosinophils/100 WBC (Bld)1 %[facility] CenterErythrocyte distribution width (RBC) [Ratio]15.3 %High11.5 - 15.0 %[facility] Hematocrit (Bld) [Volume fraction]34.2 %Low35 - 47 %[facility] Hemoglobin (Bld) [Mass/Vol]11.5 g/dLLow11.7 - 15.5 g/dLTrumbull Regional Medical Center Interpretation and review of laboratory resultsAbnormalTrumbull Regional Medical Center Lymphocytes (Bld) [#/Vol]2.4 10*3/uLTrumbull Regional Medical CenterLymphocytes/100 WBC (Bld)11 %[facility] CenterMCH (RBC) [Entitic mass]29.8 pg27 - 34 pg [facility] CenterMCHC (RBC) [Mass/Vol]33.7 g/dL32 - 36 g/dLTrumbull Regional Medical CenterMCV (RBC) [Entitic vol]89 fL80 - 100 [facility] Monocytes (Bld) [#/Vol]0.9 10*3/uLTrumbull Regional Medical CenterMonocytes/100 WBC (Bld) 4 %[facility] CenterNeutrophils (Bld) [#/Vol]18.5 10*3/uLHighHarrison Community Hospital SystemPlatelet mean volume (Bld) [Entitic vol]8.6 fL7 - 12 fLPBlanchard Valley Health System Bluffton Hospital SystemPlatelets (Bld) [#/Vol]103 10*3/uLLowTrumbull Regional Medical Center Polymorphonuclear cells/100 WBC (Bld)NORMALProOur Lady Of Mercy Hospital - AndersonRBC (Bld) [#/Vol]3.87 10*6/uLFormerly [facility], later [facility] Morgantonegmented neutrophils/100 WBC (Bld)81 %[facility] CenterWBC corrected for nucl RBC Auto (Bld) [#/Vol]22High [facility] Chester CountyCOMPREHENSIVE METABOLIC PANELon [id number] [Mass/Vol]2.8 g/dLLow3.2-5.3POhioHealth Grove City Methodist HospitalComment on above:Performed By: #### BERNARD, 06529-8, CMP, 22468-4, 2777-1, CBCA, 64766-1 #### [facility] ([id number]) [address], [address] [place], [place] [address]TFD [Catalytic activity/Vol]200 U/NIfty91-107NxmGiridzCleveland Clinic Hillcrest HospitalComment on above:Performed By: #### KATLYNR, 84783-7, CMP, 55315-7, 2777-1, CBCA, 49509-2 #### [facility] ([id number]) [address], [address] [place], [place] [address]DNG [Catalytic activity/Vol]53 U/LHigh0-31POhioHealth Grove City Methodist HospitalComment on above:Performed By: #### PINR, 15881-2, CMP, 53818-2, 2777-1, CBCA, 28609-6 #### [facility] ([id number]) [address], [address] [place], [place] [address]Bjegm gap [Moles/Vol]9 mmol/LNormal5-15[facility] Comment on above:Performed By: #### PINR, 84293-0, CMP, 77739-9, 2777-1, CBCA, 54499-6 #### [facility] ([id number]) [address], [address] [place], [place] [address]JIF [Catalytic activity/Vol]56 U/LHigh0-41ProMedica Ashraf HospitalComment on above:Performed By: #### PINR, 78449-8, CMP, 82260-6, 2777-1, CBCA, 13048-5 #### [facility] ([id number]) [address], [address] [place], [place] [address]Dqgbndhyy [Mass/Vol]0.6 mg/dLNormal0.3-1.2ProMedwalker county hospital Ashraf HospitalComment on above:Performed By: #### BERNARD, 89190-2, CMP, 79780-3, 2777-1, CBCA, 26919-2 #### [facility] ([id number]) [address], [address] [place], [place] [address]Dpgtmrh [Mass/Vol]8.6 mg/dLNormal8.5-10.5PMercy Memorial Hospital HospitalComment on above:Performed By: #### PINR, 05798-0, CMP, 22880-7, 2777-1, CBCA, 55936-2 #### [facility] ([id number]) [address], [address] [place], [place] [address]Hstnjjcq [Moles/Vol]107 mmol/GCoppmm28-680YhmAnlhgr Ashraf HospitalComment on above:Performed By: #### PINR, 17199-8, CMP, 27853-6, 2777-1, CBCA, 49836-5 #### [facility] ([id number]) [address], [address] [place], [place] [address]YZ3 [Moles/Vol]25 mmol/CCnnrrg08-22ShbMggbvo [facility] Comment on above:Performed By: #### PINR, 44350-8, CMP, 37063-0, 2777-1, CBCA, 27674-6 #### [facility] ([id number]) [address], [address] [place], [place] [address]Zavgiyvgdz [Mass/Vol]0.95 mg/dLNormal0.40-1.00ProBrecksville Va / Crille HospitalComment on above:Result Comment: METHOD TRACEABLE TO IDMS STANDARD Performed By: #### PINR, 06632-1, CMP, 99663-1, 2777-1, CBCA, 98844-8 #### [facility] ([id number]) [address], [address] [place], [place] [address]HJU/1.73 sq M.predicted among non-blacks MDRD (S/P/Bld) [Vol rate/Area]66 mL/min/{1.73_m2}Normal>59ProBrecksville Va / Crille HospitalComment on above: Result Comment: Reported eGFR is based on the CKD-EPI 2020 equation that does not use a race coefficient.Performed By: #### BERNARD, 06398-5, CMP, 95054-1, 2777- 1, CBCA, 07399-9 #### [facility] ([id number]) [address], [address] [place], [place] [address]Oxugchc [Mass/Vol]80 mg/wYAazegq50-35PfqHlfris [facility] Comment on above:Performed By: #### PINR, 52588-9, CMP, 91688-7, 2777-1, CBCA, 22517-8 #### [facility] ([id number]) [address], [address] [place], [place] [address]Mnuqlxwwq [Moles/Vol]3.7 mmol/LNormal3.5-5.0ProBrecksville Va / Crille HospitalComment on above:Performed By: #### PINR, 29939-8, CMP, 51845-5, 2777-1, CBCA, 21024-0 #### [facility] ([id number]) [address], [address] [place], [place] [address]Nadstne [Mass/Vol]5.8 g/dLLow6.0-8.0[facility] Comment on above:Performed By: #### PINR, 34508-0, CMP, 62776-7, 2777-1, CBCA, 09843-8 #### [facility] ([id number]) [address], [address] [place], [place] [address]Hijknq [Moles/Vol]141 mmol/BPxlafv820-672PlcAuxrxg [place] HospitalComment on above:Performed By: #### PINR, 42512-9, CMP, 98362-9, 2777-1, CBCA, 75218-6 #### [facility] ([id number]) [address], [address] [place], [place] [address]Dujr nitrogen [Mass/Vol]33 mg/dLHigh5-27ProBrecksville Va / Crille HospitalComment on above:Performed By: #### PINR, 12750-4, CMP, 08699-7, 2777-1, CBCA, 67582-9 #### [facility] ([id number]) [address], [address] [place] [address]Tupvzzursianx metabolic panelon 92-92-4282Zivmgyi [Mass/Vol]2.8 g/dLLow3.2 - 5.3 g/dLProMedica Health SystemALP [Catalytic activity/Vol]200 U/L High39 - 130 U/LProMedica Health SystemALT No additional P-5'-P [Catalytic activity/Vol]53 U/LHigh0 - 31 U/LProMedica Health SystemAnion gap [Moles/Vol]9 mmol/L5 - 15 mmol/LProMedica Health SystemAST [Catalytic activity/Vol]56 U/LHigh 0 - 41 U/LProMedica Health SystemBilirubin [Mass/Vol]0.6 mg/dL0.3 - 1.2 mg/dL ProMedica Health SystemCalcium [Mass/Vol]8.6 mg/dL8.5 - 10.5 mg/dLHarrison Community Hospital SystemChloride [Moles/Vol]107 mmol/L98 - 109 mmol/LProMedica Health SystemCO2 [Moles/Vol]25 mmol/L22 - 32 mmol/LPrFamily Health West Hospital Health SystemCreatinine [Mass/Vol]0.95 mg/dL0.40 - 1.00 mg/dLTrumbull Regional Medical CenterComment on above: METHOD TRACEABLE TO IDAZ STANDARDeGFR (CKD-EPI)non-race - PINF [facility] Regional Medical CenterComment on above: Reported eGFR is based on the CKD-EPI 2020 equation that does not use a race coefficient. Glucose [Mass/Vol]80 mg/dL65 - 99 mg/dLTrumbull Regional Medical CenterInterpretation and review of laboratory resultsAbnormalProMercy Health Perrysburg Hospital SystemPotassium [Moles/Vol]3.7 mmol/L3.5 - 5.0 mmol/LProMedica Health SystemProtein [Mass/Vol] 5.8 g/dLLow6.0 - 8.0 g/dLProMercy Health Perrysburg Hospital SystemSodium [Moles/Vol]141 mmol/L134 - 146 mmol/[facility] SystemUrea nitrogen [Mass/Vol]33 mg/dLHigh5 - 27 mg/dLTrumbull Regional Medical CenterIonized magnesiumon 00-65-8027Ftthphsci Ionized ISE (Bld) [Moles/Vol]0.61 mmol/L0.45 - 0.74 mmol/[facility] SystemComment on above:NEW REFERENCE RANGEMAGNESIUMon 25-33-8053Nqpjhmltf [Mass/Vol]1.9 mg/dL Normal1.8-2.6[facility] HospitalComment on above:Performed By: #### PINR, 35179-7, CMP, 21619-2, 2777-1, CBCA, 49654-2 #### [facility] ([id number]) [address] [place] [address], [address] [place], [place] [address]Ntatkxdtfkh 94-30-4677Usmyfngba [Mass/Vol]1.9 mg/dL1.8 - 2.6 mg/dLTrumbull Regional Medical CenterMagnesium Ionized ISE (Bld) [Moles/Vol]on 05-24-2024 [facility] SystemMagnesium [Moles/Vol]0.61 mmol/LNormal0.45-0.74ProBrecksville Va / Crille HospitalComment on above:Result Comment: NEW REFERENCE RANGEPerformed By: #### PINR, 66595-9, CMP, 35769-0, 2777-1, CBCA, 86772-7 #### [facility] ([id number]) [address], [address] [place], [place] [address]Tz Panel Informationon 05-99-2491EowNmisyt Health System PHOSPHORUSon 43-75-2111Lscnhkgpj [Mass/Vol]3.1 mg/dLNormal2.4-4.9ProBrecksville Va / Crille HospitalComment on above:Performed By: #### PINR, 59084-8, CMP, 32061-4, 2777-1, CBCA, 79749-8 #### [facility] ([id number]) [address] [place], [place] [address]EHSETXCCZdz 42-90-0868Lxzbdgbtg [Moles/Vol]3.9 mmol/LNormal 3.5-5.0ProBrecksville Va / Crille HospitalComment on above:Performed By: #### PINR, 98105- 9, CMP, 00649-4, 2777-1, CBCA, 81705-1 #### [facility] ([id number]) [address], [address] [place], [place] [address]Yhbunxmtkdzl 35-69-7553Pwuzeoeis [Mass/Vol]3.1 mg/dL2.4 - 4.9 mg/dLProMercy Health Perrysburg Hospital SystemPotassiumon 51-62-5030Fimjvxcpg [Moles/Vol]3.9 mmol/L3.5 - 5.0 mmol/LProMedica Health SystemPotassium [Moles/Vol]on 05-24-2024 [facility] Centeredic Health SystemBLOOD CULTUREon 37-71-7738Pdxzxubo identified Aer cx Nom (Bld)SPECIMEN NOTES SUBOPTIMAL VOLUME OF BLOOD COLLECTED, RESULTS MAY BE AFFECTED. CULTURE RESULTS NO GROWTH 5 DAYSNormalProOhiohealth Doctors Hospitalo HospitalComment on above:Performed By: #### PINR, 60628-4, CMP, 45573-2, 2777-1, CBCA, 72669-8 #### [facility] ([id number]) [address], [address] [place], [place] [address]GPC AND AUTO DIFFon 30-87-6406Bjht form neutrophils/100 WBC (Bld)16.0 %NormalProMedica Defuniak Springs HospitalComment on above:Performed By: #### PINR, 32273-7, CMP, 29237-7, 2777-1, CBCA, 08114-1 #### [facility] ([id number]) [address], [address] [place], [place] [address]Heelpyvptdg distribution width (RBC) [Ratio]15.2 %High11.5-15.0 [facility] HospitalComment on above:Performed By: #### PINR, 77518-6, CMP, 48281-6, 7-1, CBCA, 31711-9 #### [facility] ([id number]) [address], [address] [place], [place] [address]Rjfsceghmf (Bld) [Volume fraction]34.6 %Ygr80-08DxvAsybqz [facility] HospitalComment on above:Performed By: #### PINR, 88099-6, CMP, 38907-8, 7-1, CBCA, 88384-8 #### [facility] ([id number]) [address], [address] [place], [place] [address]Ofdjlzqnsz (Bld) [Mass/Vol]11.7 g/mZHgxhlo57.7-15.5ProMedica [facility]uni[facility] Springs HospitalComment on above:Performed By: #### PINR, 36624-7, CMP, 47851-2, 2777-1, CBCA, 35205-3 #### [facility] ([id number]) [address], [address] [place], [place] [address]Lzbinmletdv (Bld) [#/Vol]1.6 10*3/uLNormal1.0-3.5ProMedica [facility] HospitalComment on above:Performed By: #### PINR, 57523-0, CMP, 74622-0, 2777-1, CBCA, 09052-6 #### [facility] ([id number]) [address], [address] [place], [place] [address]Qxyfeusqzud/100 WBC (Bld)4.0 %NormalProHighland District Hospital Hospital Comment on above:Performed By: #### PINR, 56741-7, CMP, 17777-9, 2777-1, CBCA, 79364-2 #### [facility] ([id number]) [address], [address] [place], [place] [address]XMV (RBC) [Entitic mass]29.7 isPgluvc52-64BruLoofng [facility] HospitalComment on above:Performed By: #### PINR, 04593-0, CMP, 04392-1, 2777-1, CBCA, 51513-8 #### [facility] ([id number]) [address], [address] [place], [place] [address]NIVJ (RBC) [Mass/Vol]33.7 g/mZWhjnkf50-75RobZtlzag [place] HospitalComment on above:Performed By: #### PINR, 76901-8, CMP, 69426-3, 2777-1, CBCA, 77637-7 #### [facility] ([id number]) [address], [address] [place], [place] [address]LUD (RBC) [Entitic vol]88 xIDiiiye51-240SspQcjkgb [facility] HospitalComment on above:Performed By: #### PINR, 77287-9, CMP, 88628-8, 2777-1, CBCA, 07470-5 #### [facility] ([id number]) [address], [address] [place], [place] [address]Rzvrejvrbhpeam/100 WBC (Bld)1.0 %NormalCleveland Clinic Hillcrest Hospital Comment on above:Performed By: #### PINR, 01392-9, CMP, 26908-2, 2777-1, CBCA, 31241-6 #### [facility] ([id number]) [address], [address] [place], [place] [address]Gwotyanve (Bld) [#/Vol]0.4 10*3/uLNormal0-0.9ProBrecksville Va / Crille HospitalComment on above:Performed By: #### PINR, 87762-0, CMP, 66028-5, 2777-1, CBCA, 95481-4 #### [facility] ([id number]) [address], [address] [place], [place] [address]Ankkmtcwn/100 WBC (Bld)1.0 %NormalCleveland Clinic Hillcrest Hospital Comment on above:Performed By: #### PINR, 12319-9, CMP, 37904-7, 2777-1, CBCA, 61506-0 #### [facility] ([id number]) [address], [address] [place], [place] [address]RFBGYPQHAG VACUOLES1+AbnormalNONEProMedica [facility] Comment on above:Performed By: #### PINR, 57227-0, CMP, 53415-6, 2777-1, CBCA, 94756-9 #### [facility] ([id number]) [address], [address] [place], [place] [address]Lwuafliqkiv (Bld) [#/Vol]36.6 10*3/uLHigh1.5-6.6ProBrecksville Va / Crille HospitalComment on above:Performed By: #### PINR, 49483-8, CMP, 81723-9, 2777- 1, CBCA, 09587-6 #### [facility] ([id number]) [address], [address] [place], [place] [address]Evnnwcxh mean volume (Bld) [Entitic vol]8.8 fLNormal7-12 [facility] HospitalComment on above:Performed By: #### PINR, 56400-9, CMP, 40498-6, 2777-1, CBCA, 00728-3 #### [facility] ([id number]) [address], [address] [place], [place] [address]Drzivqqtl (Bld) [#/Vol]91 10*3/hVAas531-454CnmCugiuf Ashraf HospitalComment on above:Performed By: #### PINR, 98080-2, CMP, 34793-7, 2777-1, CBCA, 37571-8 #### [facility] ([id number]) [address], [address] [place], [place] [address]UYW COUNT3.92 X10E12/LNormal3.80-5.20[facility] Comment on above:Performed By: #### PINR, 71474-7, CMP, 57668-0, 2777-1, CBCA, 60935-6 #### [facility] ([id number]) [address], [address] [place], [place] [address]CHC morphology finding Nom (Bld)NORMALNormalProMedica Ashraf HospitalComment on above:Performed By: #### PINR, 36986-5, CMP, 89641-2, 2777-1, CBCA, 56871-3 #### [facility] ([id number]) [address], [address] [place], [place] [address]ATB BKHLWRRTIJ61.0 %NormalProMedica Ashraf HospitalComment on above:Performed By: #### PINR, 79622-8, CMP, 51266-4, 2777-1, CBCA, 92299-5 #### [facility] ([id number]) [address], [address] [place], [place] [address]LKJ (Bld) [#/Vol]39.0 10*3/uLHigh4.0-11.0[facility] HospitalComment on above:Performed By: #### PINR, 78715-9, CMP, 92059-2, 2777-1, CBCA, 74889-6 #### [facility] ([id number]) [address], [address] [place], [place] [address]YMS auto differentialon 23-11-2835Ttmx form neutrophils/100 WBC (Bld)16 %[facility] SystemErythrocyte distribution width (RBC) [Ratio]15.2 %High11.5 - 15.0 %[facility] SystemHematocrit (Bld) [Volume fraction]34.6 %Low35 - 47 %[facility] SystemHemoglobin (Bld) [Mass/Vol]11.7 g/dL11.7 - 15.5 g/dLHarrison Community Hospital SystemInterpretation and review of laboratory results AbnormalHarrison Community Hospital SystemLeukocyte toxic vacuoles LM Ql (Bld)1+Abnormal NONE^NONEHarrison Community Hospital SystemLymphocytes (Bld) [#/Vol]1.6 10*3/uLHarrison Community Hospital SystemLymphocytes/100 WBC (Bld)4 %[facility] Medical CenterMCH (RBC) [Entitic mass]29.7 pg27 - 34 pgPFirelands Regional Medical Center South CampusMCHC (RBC) [Mass/Vol]33.7 g/dL32 - 36 g/dLTrumbull Regional Medical CenterMCV (RBC) [Entitic vol]88 fL80 - 100 fL [facility] SystemMetamyelocytes/100 WBC (Bld)1 %[facility] Monocytes (Bld) [#/Vol]0.4 10*3/uLHarrison Community Hospital SystemMonocytes/100 WBC (Bld) 1 %[facility] SystemNeutrophils (Bld) [#/Vol]36.6 10*3/uLHighHarrison Community Hospital SystemPlatelet mean volume (Bld) [Entitic vol]8.8 fL7 - 12 fLPBlanchard Valley Health System [facility]uff[facility] SystemPlatelets (Bld) [#/Vol]91 10*3/uLLowProMedica Health System Polymorphonuclear cells/100 WBC (Bld)NORMALTrumbull Regional Medical CenterRBC (Bld) [#/Vol]3.92 10*6/uLFormerly [facility], later [facility] Morgantonegmented neutrophils/100 WBC (Bld)78 %[facility] Medical CenterWBC corrected for nucl RBC Auto (Bld) [#/Vol]39High [facility] Chester CountyCOMPREHENSIVE METABOLIC PANELon 54-98-5219Tmcilgb [Mass/Vol]3.1 g/dLLow3.2-5.3PMercy Memorial Hospital HospitalComment on above:Performed By: #### PINR, 94413-9, CMP, 08664-5, 2777-1, CBCA, 09654-9 #### [facility] ([id number]) [address], [address] [place], [place] [address]MQT [Catalytic activity/Vol]256 U/HQngb04-403YdgUxzxslBrecksville Va / Crille HospitalComment on above:Performed By: #### PINR, 40394-2, CMP, 52439-9, 2777-1, CBCA, 40355-5 #### [facility] ([id number]) [address], [address] [place], [place] [address]SNT [Catalytic activity/Vol]65 U/LHigh0-31POhioHealth Grove City Methodist HospitalComment on above:Performed By: #### PINR, 01782-5, CMP, 08113-6, 2777-1, CBCA, 56076-5 #### [facility] ([id number]) [address], [address] [place], [place] [address]Elrev gap [Moles/Vol]14 mmol/LNormal5-15[facility] HospitalComment on above:Performed By: #### PINR, 65577-3, CMP, 57062-2, 2777-1, CBCA, 02437-0 #### [facility] ([id number]) [address], [address] [place], [place] [address]AAQ [Catalytic activity/Vol]48 U/LHigh0-41[facility] HospitalComment on above:Performed By: #### PINR, 86123-3, CMP, 30022-2, 7-1, CBCA, 35607-5 #### [facility] ([id number]) [address], [address] [place], [place] [address]Lwmgycoip [Mass/Vol]0.6 mg/dLNormal0.3-1.2[facility] HospitalComment on above:Performed By: #### PINR, 48982-7, CMP, 59418-1, 7-1, CBCA, 26988-4 #### [facility] ([id number]) [address], [address] [place], [place] [address]Vnqxpkp [Mass/Vol]8.5 mg/dLNormal8.5-10.5[facility] HospitalComment on above:Performed By: #### PINR, 01229-1, CMP, 01570-7, 2776-, CBCA, 59709-9 #### [facility] ([id number]) [address], [address] [place], [place] [address]Yhciyhsv [Moles/Vol]103 mmol/JOnaldc97-946ZynSphjsz Ashraf HospitalComment on above:Performed By: #### PINR, 32799-9, CMP, 88798-2, 2776-, CBCA, 78459-9 #### [facility] ([id number]) [address], [address] [place], [place] [address]CY6 [Moles/Vol]20 mmol/VMld61-27RyhLojfxc Ashraf HospitalComment on above:Performed By: #### PINR, 83992-7, CMP, 83632-4, 2777-1, CBCA, 45405-5 #### [facility] ([id number]) [address], [address] [place], [place] [address]Ztidgocdch [Mass/Vol]1.47 mg/dLHigh0.40-1.00ProBrecksville Va / Crille HospitalComment on above:Result Comment: METHOD TRACEABLE TO IDMS STANDARD Performed By: #### BERNARD, 09944-6, CMP, 06241-2, 7-1, CBCA, 61797-0 #### [facility] ([id number]) [address], [address] [place], [place] [address]CSC/1.73 sq M.predicted among non-blacks MDRD (S/P/Bld) [Vol rate/Area]39 mL/min/{1.73_m2}Low>59ProBrecksville Va / Crille HospitalComment on above: Result Comment: Reported eGFR is based on the CKD-EPI 2020 equation that does not use a race coefficient.Performed By: #### BERNARD, 00322-3, CMP, 91136-9, 2776- 1, CBCA, 23166-6 #### [facility] ([id number]) [address], [address] [place], [place] [address]Fkydzya [Mass/Vol]93 mg/pMJjuaor34-95XnsYxoadg [facility] Comment on above:Performed By: #### BERNARD, 09679-1, CMP, 28580-0, 2776-, CBCA, 67203-4 #### [facility] ([id number]) [address], [address] [place], [place] [address]Yceqacloc [Moles/Vol]3.7 mmol/LNormal3.5-5.0ProBrecksville Va / Crille HospitalComment on above:Performed By: #### BERNARD, 58226-9, CMP, 36685-0, 2777-1, CBCA, 94239-4 #### [facility] ([id number]) [address], [address] [place], [place] [address]Galqnzg [Mass/Vol]6.5 g/dLNormal6.0-8.0[facility] Comment on above:Performed By: #### BERNARD, 51090-7, CMP, 16951-6, 2777-1, CBCA, 98038-8 #### [facility] ([id number]) [address], [address] [place], [place] [address]Oacjqv [Moles/Vol]137 mmol/XAaxajf909-596GakDtnrxo [place] HospitalComment on above:Performed By: #### PINR, 40000-7, CMP, 75866-6, 2776-1, CBCA, 98325-4 #### [facility] ([id number]) [address], [address] [place], [place] [address]Zunn nitrogen [Mass/Vol]41 mg/dLHigh5-27ProBrecksville Va / Crille HospitalComment on above:Performed By: #### PINR, 43207-4, CMP, 57907-6, 2776-1, CBCA, 43957-2 #### [facility] ([id number]) [address], [address] [place], [place] [address]Fmaiplmxeinqa metabolic panelon 93-23-3842Lfqsfdb [Mass/Vol]3.1 g/dLLow3.2 - 5.3 g/dLProMedica Health SystemALP [...] mmol/LProMedica Health SystemCreatinine [Mass/Vol]1.47 mg/dLHigh0.40 - 1.00 mg/dLTrumbull Regional Medical CenterComment on above:METHOD TRACEABLE TO IDAZ STANDARDeGFR (CKD-EPI)non-race paqqbkgqn25DtwLifePoint HealthComment on above: Reported eGFR is based on the CKD-EPI 2020 equation that does not use a race coefficient. Glucose [Mass/Vol]93 mg/dL65 - 99 mg/dLTrumbull Regional Medical CenterPotassium [Moles/Vol]3.7 mmol/L3.5 - 5.0 mmol/LPrFamily Health West Hospital Health SystemProtein [Mass/Vol] 6.5 g/dL6.0 - 8.0 g/dLHarrison Community Hospital SystemSodium [Moles/Vol]137 mmol/L134 - 146 mmol/[facility] SystemUrea nitrogen [Mass/Vol]41 mg/dLHigh5 - 27 mg/dLTrumbull Regional Medical CenterMAGNESIUMon 48-37-8287Wuydvnvga [Mass/Vol]2.0 mg/dL Normal1.8-2.6[facility] HospitalComment on above:Performed By: #### BERNARD, 98269-5, CMP, 76400-8, 7-1, CBCA, 78509-3 #### [facility] ([id number]) [address] [place], [place] [address]Acdeuhrtvab 71-53-0922Dwuvrbjmm [Mass/Vol]2 mg/dL1.8 - 2.6 mg/dL [facility] Medical CenterNo Panel Informationon 92-30-0500Dswzlporhhqqut and review of laboratory resultsAbnormalProOur Lady Of Mercy Hospital - AndersonProOur Lady Of Mercy Hospital - AndersonPHOSPHORUSon 63-38-9542Vhsfyidhv [Mass/Vol]2.4 mg/dLNormal2.4-4.9[facility] HospitalComment on above:Performed By: #### KATLYNR, 40262-8, CMP, 53102-9, 2777-1, CBCA, 63729-5 #### [facility] ([id number]) [address] [place], [place] [address]QYYPWMYJQzo 74-70-7215Hidylcfpi [Moles/Vol]3.7 mmol/LNormal 3.5-5.0[facility] HospitalComment on above:Performed By: #### PINR, 76812- 9, CMP, 27750-9, 2777-1, CBCA, 02891-8 #### [facility] ([id number]) [address], [address] [place], [place] [address]Pvuyloglo [Moles/Vol]3.5 mmol/LNormal3.5-5.0[facility] HospitalComment on above:Performed By: #### PINR, 92885-5, CMP, 78886-2, 2777-1, CBCA, 38873-7 #### [facility] ([id number]) [address], [address] [place], [place] [address]Gkpbczmasvdp 63-67-9387Pgjyheaej [Mass/Vol]2.4 mg/dL2.4 - 4.9 mg/dLTrumbull Regional Medical CenterPotassiumon 05-85-7572Mavyrmufb [Moles/Vol]3.7 mmol/L3.5 - 5.0 mmol/LPrFamily Health West Hospital Health SystemPotassium [Moles/Vol]3.5 mmol/L3.5 - 5.0 mmol/LPrMemorial Hospital SystemPotassium [Moles/Vol]on 01-36-2005PdoOncjmxWarren General HospitalProcalcitoninon 99-34-9325Dumfreijbixun [place] [Mass/Vol]242.46 ng/mLHighNINF - 0.05 ng/mLTrumbull Regional Medical CenterComment on above:NOTE <0.50 ng/mL - Low risk of severe sepsis and/or septic shock. <2.00 ng/mL - Recommend retesting within 6-24 hours. >2.00 ng/mL - High risk of sepsis and/or septic shock. Procalcitonin [place] [Mass/Vol]on 77-64-4464ZOTOFQXYYJNNQ271.46 ng/mLHigh<0.05 [facility] HospitalComment on above:Result Comment: NOTE <0.50 ng/mL - Low risk of severe sepsis and/or septic shock. <2.00 ng/mL - Recommend retesting within 6-24 hours. >2.00 ng/mL - High risk of sepsis and/or septic shock.Performed By: #### PINR, 00760-7, CMP, 24773-7, 2777-1, CBCA, 63068-8 #### [facility] ([id number]) [address], [address] [place], [place] [address]Ewelrxiq identified Cx Nom (U)on 89-16-4526Etqqfqi comment (Unsp spec) [Interp]<10,000 ORGANISMS/ML NORMAL URO GENITAL FLORAProMedica Health SystemProMercy Health Perrysburg Hospital SystemCBC AND AUTO DIFFon 99-35-8507Jfgk form neutrophils/100 WBC (Bld)35.0 %NormalProMedica Defuniak Springs HospitalComment on above: Performed By: #### CBCA, CMP, 49173-6, 84475-8, 2777-1 ####[facility] ([id number])[address], [address] [place] [address]TLJBP BODIES1+ AbnormalNONEProMedica Defuniak Springs HospitalComment on above:Performed By: #### CBCA, CMP, 07423-1, 13505-3, 2777-1 ####[facility] ([id number])[address], [address] [place] [address] 21408Bfyntjwmxiu/100 WBC (Bld)4.0 %Normal [facility] Defuni[facility] Springs HospitalComment on above:Performed By: #### CBCA, CMP, 73815-0, 39713-8, 2777-1 ####[facility] ([id number])[address], [address] [place] [address]Prdylynvhyubvb/100 WBC (Bld)5.0 %NormalProMedica Defuniak Springs HospitalComment on above:Performed By: #### CBCA, CMP, 36739-3, 38936-7, 2777-1 ####[facility] ([id number])[address], [address] [place] [address] 28239Uodypancn/100 WBC (Bld)2.0 %NormalProMedica Defuniak Springs HospitalComment on above:Performed By: #### CBCA, CMP, 23235-8, 98740-2, 277- ####[facility] ([id number])[address], [address] [place] [address] 30525TQVBWZCBC7.0 %NormalProMercy Health St. Rita'S Medical Centerca Defuniak Springs HospitalComment on above:Performed By: #### CBCA, CMP, 57142-7, 87573-3, 277- ####[facility] ([id number])[address], [address] [place] [address]1972FPF COUNT3.55 X10E12/LLow3.80-5.20Pro[facility]uni[facility] HospitalComment on above:Performed By: #### CBCA, CMP, 05141-9, 35784-8, 277- ####[facility] ([id number])[address], [address] [place] [address]007BDJ NLPUWCVNWZ99.0 %NormalProMercy Health St. Rita'S Medical Centerca Defuniak Springs HospitalComment on above:Performed By: #### CBCA, CMP, 20388-4, 33257-7, 27701-21 ####[facility] ([id number])[address], [address] [place] [address] 05744DTJ (Bld) [#/Vol]28.1 10*3/uLHigh4.0-11.0ProMercy Health St. Rita'S Medical Centerca Defuniak Springs HospitalComment on above: Performed By: #### CBCA, CMP, 23253-0, 35032-3, 277- ####[facility] ([id number])[address], [address] [place] [address] 70082Azfhhnscfxb distribution width (RBC) [Ratio]14.9 %Sercup82.5-15.0[facility] Comment on above:Performed By: #### CBCA, CMP, 82217-1, 93426-2, 27701-21 ####[facility] ([id number])[address], [address] [place] [address] 47426Eqleqdeqln (Bld) [Volume fraction]31.3 %Sjq28-32VfaBomilxTrumbull Regional Medical Center Comment on above:Performed By: #### CBCA, CMP, 90287-3, 55009-6, 277-1 ####[facility] ([id number])[address], [address] [place] [address] 13055Jlfdozngsf (Bld) [Mass/Vol]10.6 g/dLLow11.7-15.[address] [place] [address] Comment on above:Performed By: #### CBCA, CMP, 91531-3, 05023-1, 27701-21 ####[facility] ([id number])[address] [address] [place] [address] 72423Hjozsuvuuuu (Bld) [#/Vol]1.1 10*3/uLNormal1.0-3.[address] [place] [address] Comment on above:Performed By: #### CBCA, CMP, 88411-9, 37529-3, 277- ####[facility] ([id number])[address] [address] [place] [address] 58689NIA (RBC) [Entitic mass]29.8 mwSftyvb56-05VmhVslpkj Health SystemComment on above:Performed By: #### CBCA, CMP, 26850-0, 03022-5, 277- ####[facility] ([id number])[address] [address] [place] [address] 90311EEJJ (RBC) [Mass/Vol]33.7 g/yVKogisn40-52YxyWjlixv Health SystemComment on above: Performed By: #### CBCA, CMP, 17534-7, 39437-9, 277-1 ####[facility] ([id number])[address], [address] [place] [address] 38744GAL (RBC) [Entitic vol]88 gZRnhxby64-188EomHmxelo Health SystemComment on above:Performed By: #### CHA, CMP, 43584-7, 51770-3, 2777-1 ####[facility] ([id number])[address], [address] [place] [address] 93599Ejaxixylx (Bld) [#/Vol]0.6 10*3/uLNormal0-0.9ProNorthport Medical Center Health SystemComment on above:Performed By: #### CHA, CMP, 62444-2, 68653-9, 2777-1 ####[facility] ([id number])[address], [address] [place] [address] 00998Cyxnmspnzht (Bld) [#/Vol] 24.2 10*3/uLHigh1.5-6.6ProNorthport Medical Center Health SystemComment on above:Performed By: #### CBCAndrew, CMP, 57369-5, 60814-3, 2777-1 ####[facility] ([id number])[address], [address] [place] [address] 19808Npojsoqw mean volume (Bld) [Entitic vol]8.3 fLNormal7-12PSavoy Medical Center Health SystemComment on above:Performed By: #### CBCA, CMP, 65154-4, 30233-4, 2777-1 ####[facility] ([id number])[address] [address] [place] [address] 51954Titbiaonc (Bld) [#/Vol]60 10*3/fYNdg449-962XxwFldxua Health SystemComment on above:Performed By: #### CBCA, CMP, 02969-7, 55156-3, 2777-1 ####[facility] ([id number])[address], [address] [place] [address] 01100PYS auto differentialon 35-12-1383Sztf form neutrophils/100 WBC (Bld)35 %[facility] SystemDohle body LM Ql (Bld)1+AbnormalNONE^NONEHarrison Community Hospital SystemInterpretation and review of laboratory resultsAbnormalProMercy Health Perrysburg Hospital SystemLymphocytes/100 WBC (Bld)4 %[facility] SystemMetamyelocytes/100 WBC (Bld)5 %[facility] SystemMonocytes/100 WBC (Bld)2 %[facility] SystemMyelocytes/100 WBC (Bld)3 %[facility] SystemRBC (Bld) [#/Vol]3.55 10*6/uLLowHarrison Community Hospital System Segmented neutrophils/100 WBC (Bld)51 %[facility] Medical CenterWBC corrected for nucl RBC Auto (Bld) [#/Vol]28.1HighLifecare Hospital of Chester CountyCOMPREHENSIVE METABOLIC PANELon 14-60-2053CZC [Catalytic activity/Vol]79 U/LHigh0-31POhioHealth Grove City Methodist HospitalComment on above:Performed By: #### ELROY EUBANKS, 72818-8, 99180-7, 2777-1 ####[facility] ([id number])[address] [facility] [address] [address]VLF/1.73 sq M.predicted among non-blacks MDRD (S/P/Bld) [Vol rate/Area]37 mL/min/{1.73_m2}Low>59[facility] Comment on above:Result Comment: Reported eGFR is based on the CKD-EPI 2020 equation that does not use a race coefficient.Performed By: #### ELROY EUBANKS, 79311-1, 85269-4, 2777- 1 ####[facility] ([id number])[address] [facility], [address] [address]Dyeykcn [Mass/Vol]2.9 g/dLLow3.2-5.3PFirelands Regional Medical Center South CampusComment on above:Performed By: #### ELROY EUBANKS, 91673-0, 41486-2, 2777-1 ####[facility] ([id number])[address], [address], [place] [address]RLI [Catalytic activity/Vol]202 U/MSzgv29-826MwkCelkcv Health SystemComment on above:Performed By: #### ELROY EUBANKS, 09814-2, 39642-8, 2777-1 ####[facility] ([id number])[address], [address], [place] [address]Hnpnm gap [Moles/Vol]15 mmol/LNormal5-15[facility] SystemComment on above:Performed By: #### ELROY EUBANKS, 63876-0, 66491-7, 2777-1 ####[facility] ([id number])[address], [address], [place] [address]ERI [Catalytic activity/Vol]90 U/LHigh0-41ProMercy Health Perrysburg Hospital SystemComment on above:Performed By: #### ELROY EUBANKS, 04904-0, 64936-3, 2777 ####[facility] ([id number])[address], [address], [place] [address]Jfhmipowq [Mass/Vol]1.1 mg/dLNormal0.3-1.2PBlanchard Valley Health System Bluffton Hospital SystemComment on above:Performed By: #### ELROY EUBANKS, 91909-1, 28326-6, 2777- ####[facility] ([id number])[address], [address], [place] [address]Opoduqv [Mass/Vol]7.8 mg/dL Low8.5-10.5PSavoy Medical Center Health SystemComment on above:Performed By: #### ELROY EUBANKS, 72004-6, 63499-5, 2777-1 ####[facility] ([id number])[address], [address], [place] [address]Jczwvyds [Moles/Vol]104 mmol/HTmqnix02-663 ProMatmore community hospital Health SystemComment on above:Performed By: #### ELRYO EUBANKS, 08514-9, 36897-6, 2776- ####[facility] ([id number])[address], [address] [address]XF7 [Moles/Vol]20 mmol/HGvk68-28OydMvudtz Health System Comment on above:Performed By: #### ELROY EUBANKS, 06604-7, 94706-0, 277- ####[facility] ([id number])[address], [address], [place] [address]Lsocdwaopb [Mass/Vol]1.53 mg/dLHigh0.40-1.00[facility] SystemComment on above:METHOD TRACEABLE TO IDMS STANDARDResult Comment: METHOD TRACEABLE TO IDMS STANDARDPerformed By: #### ELROY EUBANKS, 89104-8, 48653-9, 27701-21 ####[facility] ([id number])[address], [address], [place] [address] Glucose [Mass/Vol]116 mg/lTIxzg79-34TqvXfyjvf Health SystemComment on above: Performed By: #### ELROY EUBANKS, 42582-0, 98130-7, 2771 ####[facility] ([id number])[address] [address], [place] [address]Rusgctfcr [Moles/Vol]4.2 mmol/LNormal3.5-5.0[facility] SystemComment on above: Performed By: #### ELROY EUBANKS, 94128-5, 62432-4, 277- ####[facility] ([id number])[address], [address], [place] [address]Ugigjvj [Mass/Vol]5.7 g/dLLow6.0-8.0ProMercy Health Perrysburg Hospital SystemComment on above:Performed By: #### ELROY EUBANKS, 99518-3, 57169-9, 2777-1 ####[facility] ([id number])[address] [address]Ezkvac [Moles/Vol]139 mmol/XSvttpa104-139NsuIkbjms Health SystemComment on above:Performed By: #### CBCAndrew, CMP, 57683-1, 19155-6, 2777-1 ####[facility] ([id number])[address] [address]Ekjl nitrogen [Mass/Vol]28 mg/dLHigh5-27Tr[facility] Regional Medical CenterComment on above:Performed By: #### CBCAndrew, CMP, 54793-1, 52374-0, 2777-1 ####[facility] ([id number])[address] [place] [address]Uifizsj.ionized (Bld) [Mass/Vol]on 72-54-0186AEAJMFG CALCIUM4.4 mg/dLLow4.5-5.3POhioHealth Grove City Methodist HospitalComment on above:Performed By: #### 28260-3, 76758-9 ####[facility] ([id number])[address] [address]QzoIajdfjTrumbull Regional Medical Center IONIZED CALCIUM4.5 mg/dLNormal4.5-5.3POhioHealth Grove City Methodist HospitalComment on above: Performed By: #### PINR, 20334-5, CMP, 48945-1, 2777-1, CBCA, 83046-6 #### [facility] ([id number]) [address] [address]Bqkvctvbamfmji and review of laboratory resultsAbnoJefferson HospitalComprehensive metabolic panelon 05-22-2024 ALT No additional P-5'-P [Catalytic activity/Vol]79 U/LHigh0 - 31 U/LPrWayne HospitaleGFR (CKD-EPI)non-race phcubkueh14Fpu- [facility] Comment on above: Reported eGFR is based on the CKD-EPI 2021 equation that does not use a race coefficient. Ionized calciumon 53-81-0426Rkxryaj.ionized (Bld) [Mass/Vol]4.5 mg/dL4.5 - 5.3 mg/dLHarrison Community Hospital SystemCalcium.ionized (Bld) [Mass/Vol]4.4 mg/dLLow4.5 - 5.3 mg/dLHarrison Community Hospital SystemIonized magnesiumon 97-69-1178Gmdiklvti Ionized ISE (Bld) [Moles/Vol]0.54 mmol/L0.45 - 0.74 mmol/LPrMemorial Hospital SystemComment on above:NEW REFERENCE RANGELaboratory - Chemistry and Chemistry - challengeon 01-65-2162Gvqtiyrcw [Mass/Vol]1.8 mg/dLNormal1.8-2.6[facility] Comment on above:Performed By: #### CHA, ELROY, 84736-5, 84940-9, 2777-1 ####[facility] ([id number])[address], [address], [place] [address]Aihbanpit [Mass/Vol]4.7 mg/dLNormal2.4-4.9Tr[facility] Regional Medical CenterComment on above:Performed By: #### BERNARD, 62884-1, CMP, 25465-6, 2776-1, CBCA, 94262-1 #### [facility] ([id number]) [address], [address] [place], [place] [address]Fghqihn (P jannette) [Moles/Vol]on 09-39-2845RlnWwgbbr Health System LACTATE W/REFLEX1.3 mmol/LNormal0.4-2.0ProBrecksville Va / Crille HospitalComment on above:Result Comment: Result did not trigger repeat Lactate, re-order if needed.Performed By: #### BERNARD, 86462-3, CMP, 36574-1, 7-1, CBCA, 07836-9 #### [facility] ([id number]) [address], [address] [place], [place] [address]YudSfptafTrumbull Regional Medical CenterLACTATE W/REFLEX1.6 mmol/LNormal0.4-2.0 ProMJoint Township District Memorial HospitalComment on above:Result Comment: Result did not trigger repeat Lactate, re-order if needed.Performed By: #### PINR, 33854-1, CMP, 47700-9, 2777-1, CBCA, 74430-3 #### [facility] ([id number]) [address] [facility] [place], [place] [address]Wqmwugt w/ Reflexon 31-00-8088Iwptrcc (P jannette) [Moles/Vol]1.3 mmol/L0.4 - 2.0 mmol/LProMedica Health SystemComment on above: Result did not trigger repeat Lactate, re-order if needed. Lactate (P jannette) [Moles/Vol]1.6 mmol/L0.4 - 2.0 mmol/LProMedica Health System Comment on above: Result did not trigger repeat Lactate, re-order if needed. Magnesium Ionized ISE (Bld) [Moles/Vol]on 44-05-8509Xgpumnnhs [Moles/Vol]0.54 mmol/LNormal0.45-0.74[facility] HospitalComment on above:Result Comment: NEW REFERENCE RANGEPerformed By: #### 20984-2, 76138-2 ####[facility] ([id number])[address] [facility], [address] [place] [address]XoyKscibtTrumbull Regional Medical CenterNo Panel Informationon 08-44-6182Eloehcciquccgl and review of laboratory resultsAbnormalProOur Lady Of Mercy Hospital - AndersonProMercy Health Perrysburg Hospital SystemProcalcitoninon 67-44-8591Pfybnxzjfcbdk [place] [Mass/Vol]424.58 ng/mLHighNINF - 0.05 ng/mLTrumbull Regional Medical CenterComment on above:NOTE <0.50 ng/mL - Low risk of severe sepsis and/or septic shock. <2.00 ng/mL - Recommend retesting within 6-24 hours. >2.00 ng/mL - High risk of sepsis and/or septic shock. Procalcitonin [place] [Mass/Vol]on 24-16-9762EBPLXTLJUDTJL913.58 ng/mLHigh<0.05 [facility] HospitalComment on above:Result Comment: NOTE <0.50 ng/mL - Low risk of severe sepsis and/or septic shock. <2.00 ng/mL - Recommend retesting within 6-24 hours. >2.00 ng/mL - High risk of sepsis and/or septic shock.Performed By: #### PINR, 18945-6, CMP, 95176-0, 2777-1, CBCA, 98828-2 #### [facility] ([id number]) [address], [address] [place], [place] [address]LFRNmn 84-93-3402wZBS Coag (PPP) [Time]29 [facility] HospitalArterial Line Insertionon 72-17-6016BjkwSTEPHEN Cobian 05/21/2024 2:23 PM Arterial Line Insertion [...] to verify the correct patient, procedure, equipment, manager technical support and site/side marked as required. Fire Risk [...] none Interventions: none ProMedica Health SystemBLOOD CULTUREon 18-20-3976Beflfhnw identified Aer cx Nom (Bld)CULTURE RESULTS ESCHERICHIA COLI FOR SUSCEPTIBILITY, SEE PREVIOUS REPORT.NormalCleveland Clinic Hillcrest HospitalComment on above:Performed By: #### PINR, 90356-7, CMP, 36439-3, 2777-1, CBCA, 48862-2 #### [facility] ([id number]) [address], [address] [place], [place] [address]Drqgsmkx identified Aer cx Nom (Bld)CULTURE RESULTS ESCHERICHIA [...] PIPERACIL/TAZOBACTAM S <=4 F TOBRAMYCIN S <=1 FSusceptibleProBrecksville Va / Crille HospitalComment on above:Performed By: #### 87807-3 ####[facility] ([id number])[address], [address], [place] [address]Wfvlokabs/100 WBC Manual cnt (Bld)on 05-21-2024 Basophils/100 WBC (Bld)Basophils/100 leukocytes in Blood by Manual countLow 0.2-2.0[facility] Va [facility] CenterCBC AND AUTO DIFFon 86-26-1359Qpap form neutrophils/100 WBC (Bld)37.0 %NormalProMedica Ashraf HospitalComment on above: Performed By: #### PINR, 91924-2, CMP, 03529-0, 2777-1, CBCA, 53001-0 #### [facility] ([id number]) [address], [address] [place] [address]Piydxddxxws distribution width (RBC) [Ratio]15.3 %High11.5-15.0 [facility] Defuniak Springs HospitalComment on above:Performed By: #### PINR, 41990-5, CMP, 21192-5, 2777-1, CBCA, 37698-9 #### [facility] ([id number]) [address], [address] [place], [place] [address]Blgjmpoumw (Bld) [Volume fraction]34.6 %Pcm22-42MrnVntgrd Defuniak Springs HospitalComment on above:Performed By: #### PINR, 43503-7, CMP, 64060-6, 7-1, CBCA, 01664-1 #### [facility] ([id number]) [address], [address] [place], [place] [address]Wcbwktpvxo (Bld) [Mass/Vol]11.6 g/dLLow11.7-15.5ProMedKettering Health HospitalComment on above:Performed By: #### PINR, 61586-2, CMP, 79383-8, 2777- 1, CBCA, 12774-9 #### [facility] ([id number]) [address], [address] [place], [place] [address]Yidjzijdzqc (Bld) [#/Vol]0.2 10*3/uLLow1.0-3.5ProMedKettering Health HospitalComment on above:Performed By: #### PINR, 82617-2, CMP, 53387-7, 2777-1, CBCA, 13454-5 #### [facility] ([id number]) [address], [address] [place], [place] [address]Xogpqavdlwb/100 WBC (Bld)1.0 %[facility] Comment on above:Performed By: #### PINR, 93762-2, CMP, 60981-7, 2777-1, CBCA, 38494-2 #### [facility] ([id number]) [address], [address] [place], [place] [address]YTN (RBC) [Entitic mass]29.7 ktFtpmog35-04JbeGuqwsl [place] HospitalComment on above:Performed By: #### PINR, 79190-4, CMP, 45119-0, 2777-1, CBCA, 45290-3 #### [facility] ([id number]) [address], [address] [place], [place] [address]WAXX (RBC) [Mass/Vol]33.5 g/qZIgjssp54-22CpqZznhtz [place] HospitalComment on above:Performed By: #### PINR, 63161-3, CMP, 04394-2, 2777-1, CBCA, 95561-7 #### [facility] ([id number]) [address], [address] [place], [place] [address]QEH (RBC) [Entitic vol]89 lTHnxhww56-356AhvBukrog [place] HospitalComment on above:Performed By: #### PINR, 12684-6, CMP, 65486-0, 2777-1, CBCA, 49609-1 #### [facility] ([id number]) [address], [address] [place], [place] [address]Guoiqqjozbmvtx/100 WBC (Bld)6.0 %[facility] Comment on above:Performed By: #### PINR, 60647-6, CMP, 12338-6, 2777-1, CBCA, 43658-5 #### [facility] ([id number]) [address], [address] [place], [place] [address]Sehivchbb (Bld) [#/Vol]0.5 10*3/uLNormal0-0.9ProHighland District Hospital HospitalComment on above:Performed By: #### PINR, 16498-2, CMP, 04689-3, 2777-1, CBCA, 76258-4 #### [facility] ([id number]) [address], [address] [place], [place] [address]Saquxxuvp/100 WBC (Bld)3.0 %NormalProHighland District Hospital Hospital Comment on above:Performed By: #### PINR, 94316-8, CMP, 21348-1, 2777-1, CBCA, 00793-8 #### [facility] ([id number]) [address], [address] [place], [place] [address]Grhrtzwrioa (Bld) [#/Vol]14.2 10*3/uLHigh1.5-6.6ProHighland District Hospital HospitalComment on above:Performed By: #### PINR, 86591-2, CMP, 12787-2, 2777- 1, CBCA, 75027-2 #### [facility] ([id number]) [address], [address] [place], [place] [address]Jnpbkylh mean volume (Bld) [Entitic vol]7.8 fLNormal7-12 ProMjack hughston memorial hospitala [facility] City HospitalComment on above:Performed By: #### PINR, 27815-7, CMP, 69041-3, 2777-1, CBCA, 13548-0 #### [facility] ([id number]) [address], [address] [place], [place] [address]Snlotuhpg (Bld) [#/Vol]63 10*3/aNFuj358-298GnkDjgnls [place] HospitalComment on above:Performed By: #### PINR, 84400-5, CMP, 93569-1, 2777-1, CBCA, 76240-0 #### [facility] ([id number]) [address], [address] [place], [place] [address]UPT COUNT3.90 X10E12/LNormal3.80-5.20ProHighland District Hospital Hospital Comment on above:Performed By: #### PINR, 47103-3, CMP, 87278-5, 2777-1, CBCA, 75037-5 #### [facility] ([id number]) [address] [place], [place] [address]ANE morphology finding Nom (Bld)NORMALNormalProHighland District Hospital HospitalComment on above:Performed By: #### PINR, 27352-9, CMP, 92313-1, 2777-1, CBCA, 61774-7 #### [facility] ([id number]) [address], [address] [place], [place] [address]KXI RODXYIYNZG20.0 %NormalProHighland District Hospital HospitalComment on above:Performed By: #### PINR, 93675-3, CMP, 82350-3, 7-1, CBCA, 86804-9 #### [facility] ([id number]) [address], [address] [place] [address]BWW (Bld) [#/Vol]15.8 10*3/uLHigh4.0-11.0ProBrecksville Va / Crille HospitalComment on above:Performed By: #### PINR, 29048-3, CMP, 99998-1, 7-1, CBCA, 04965-1 #### [facility] ([id number]) [address], [address] [place], [place] [address]OMX auto differentialon 16-97-6215Aram form neutrophils/100 WBC (Bld)37 %ProMedica Health SystemErythrocyte distribution width (RBC) [Ratio]15.3 %High11.5 - 15.0 %[facility]ica Health SystemHematocrit (Bld) [Volume fraction]34.6 %Low35 - 47 %[facility]ica Health SystemHemoglobin (Bld) [Mass/Vol]11.6 g/dLLow11.7 - 15.5 g/dLTrumbull Regional Medical CenterInterpretation and review of laboratory resultsAbnormalTrumbull Regional Medical CenterLymphocytes (Bld) [#/Vol]0.2 10*3/uLLow [facility] Medical CenterLymphocytes/100 WBC (Bld)1 %[facility]-FairhillH (RBC) [Entitic mass]29.7 pg27 - 34 pgPFirelands Regional Medical Center South CampusMCHC (RBC) [Mass/Vol]33.5 g/dL32 - 36 g/dLTrumbull Regional Medical CenterMCV (RBC) [Entitic vol]89 fL80 - 100 [facility] SystemMetamyelocytes/100 WBC (Bld)6 %[facility] Medical CenterMonocytes (Bld) [#/Vol]0.5 10*3/uLTrumbull Regional Medical Center Monocytes/100 WBC (Bld)3 %[facility] Medical CenterNeutrophils (Bld) [#/Vol]14.2 10*3/uLHealthSouth Medical CenterPlatelet mean volume (Bld) [Entitic vol]7.8 fL 7 - 12 [facility] SystemPlatelets (Bld) [#/Vol]63 10*3/uLLowTrumbull Regional Medical CenterPolymorphonuclear cells/100 WBC (Bld)NORMALTrumbull Regional Medical Center RBC (Bld) [#/Vol]3.9 10*6/uLFormerly [facility], later [facility] Morgantonegmented neutrophils/100 WBC (Bld)53 %[facility] CenterWBC corrected for nucl RBC Auto (Bld) [#/Vol] 15.8HighLifecare Hospital of Chester CountyCOMPREHENSIVE METABOLIC PANELon 50-04-8429Teptsde [Mass/Vol]2.8 g/dLLow3.2-5.3POhioHealth Grove City Methodist [facility] Comment on above:Performed By: #### PINR, 38359-3, CMP, 48683-7, 2777-1, CBCA, 24904-6 #### [facility] ([id number]) [address], [address] [place], [place] [address]TZT [Catalytic activity/Vol]242 U/BLszt92-115ZhtQboebs Ashraf HospitalComment on above:Performed By: #### PINR, 43203-0, CMP, 67525-1, 2777-1, CBCA, 72394-2 #### [facility] ([id number]) [address], [address] [place], [place] [address]HEP [Catalytic activity/Vol]95 U/LHigh0-31ProMedKettering Health HospitalComment on above:Performed By: #### PINR, 44675-1, CMP, 78209-8, 2777-1, CBCA, 20723-7 #### [facility] ([id number]) [address], [address] [place], [place] [address]Xseqr gap [Moles/Vol]14 mmol/LNormal5-15ProHighland District Hospital HospitalComment on above:Performed By: #### PINR, 92283-5, CMP, 96779-1, 2777-1, CBCA, 58843-8 #### [facility] ([id number]) [address], [address] [place], [place] [address]GAN [Catalytic activity/Vol]189 U/LHigh0-41ProHighland District Hospital HospitalComment on above:Performed By: #### PINR, 26049-0, CMP, 65777-3, 2777-1, CBCA, 45882-6 #### [facility] ([id number]) [address], [address] [place], [place] [address]Exsvtcggr [Mass/Vol]1.0 mg/dLNormal0.3-1.2PMercy Memorial Hospital HospitalComment on above:Performed By: #### PINR, 36938-8, CMP, 55047-2, 2777-1, CBCA, 24886-0 #### [facility] ([id number]) [address], [address] [place], [place] [address]Hnaqzrf [Mass/Vol]8.1 mg/dLLow8.5-10.5[facility] Comment on above:Performed By: #### PINR, 83677-9, CMP, 10609-0, 2777-1, CBCA, 18843-5 #### [facility] ([id number]) [address], [address] [place], [place] [address]Qwprsvxr [Moles/Vol]101 mmol/GVtchil63-863XqwKeqqke Toledo HospitalComment on above:Performed By: #### PINR, 86682-4, CMP, 53688-4, 2777-1, CBCA, 89179-6 #### [facility] ([id number]) [address], [address] [place], [place] [address]YQ7 [Moles/Vol]22 mmol/YWwyqgb64-25YldSyuzhcOhioHealth Grove City [facility] Hospital Comment on above:Performed By: #### BERNARD, 08500-6, CMP, 77479-8, 2777-1, CBCA, 66534-1 #### [facility] ([id number]) [address], [address] [place], [place] [address]Lwtpoxjtac [Mass/Vol]1.50 mg/dLHigh0.40-1.00ProBrecksville Va / Crille HospitalComment on above:Result Comment: METHOD TRACEABLE TO IDMS STANDARD Performed By: #### BERNARD, 37717-1, CMP, 08091-8, 2777-1, CBCA, 85859-4 #### [facility] ([id number]) [address], [address] [place], [place] [address]WJK/1.73 sq M.predicted among non-blacks MDRD (S/P/Bld) [Vol rate/Area]38 mL/min/{1.73_m2}Low>59ProBrecksville Va / Crille HospitalComment on above: Result Comment: Reported eGFR is based on the CKD-EPI 2020 equation that does not use a race coefficient.Performed By: #### PINR, 99647-1, CMP, 02958-8, 2777- 1, CBCA, 38867-5 #### [facility] ([id number]) [address], [address] [place], [place] [address]Oaaybxs [Mass/Vol]110 mg/rOIvlo93-47SebFtlviyBrecksville Va / Crille Hospital Comment on above:Performed By: #### PINR, 70448-3, CMP, 68766-1, 2777-1, CBCA, 55539-7 #### [facility] ([id number]) [address], [address] [place], [place] [address]Qrutynupj [Moles/Vol]3.1 mmol/LLow3.5-5.0ProBrecksville Va / Crille HospitalComment on above:Performed By: #### PINR, 62148-6, CMP, 28133-7, 2777-1, CBCA, 25728-2 #### [facility] ([id number]) [address], [address] [place], [place] [address]Zaqxrsb [Mass/Vol]5.8 g/dLLow6.0-8.0[facility] Comment on above:Performed By: #### PINR, 14305-1, CMP, 67609-4, 2777-1, CBCA, 79033-4 #### [facility] ([id number]) [address], [address] [place], [place] [address]Qazhro [Moles/Vol]137 mmol/OVxvuev797-953SriNlfcod [place] HospitalComment on above:Performed By: #### PINR, 36125-0, CMP, 32710-4, 2777-1, CBCA, 93576-2 #### [facility] ([id number]) [address], [address] [place], [place] [address]Oirh nitrogen [Mass/Vol]21 mg/dLNormal5-27ProBrecksville Va / Crille HospitalComment on above:Performed By: #### PINR, 01184-8, CMP, 32419-3, 2777-1, CBCA, 27959-3 #### [facility] ([id number]) [address], [address] [place], [place] [address]Rsszroz Line Insertionon 26-05-3613KolnSTEPHEN Cobian 05/21/2024 2:27 PM Central Line Insertion [...] to verify the correct patient, procedure, equipment, manager technical support and site/side marked as required. Fire Risk [...] during the procedure Complications: none Interventions: none [facility] [employer] SystemProMedica Health SystemComprehensive metabolic panelon 43-91-9169Sgdpjtb [Mass/Vol]2.8 g/dLLow3.2 - 5.3 g/dLProNorthport Medical Center Health SystemALP [Catalytic activity/Vol]242 U/LHigh39 - 130 U/[facility] Health SystemALT No additional P-5'-P [Catalytic activity/Vol]95 U/LHigh0 - 31 U/[facility] Health SystemAnion gap [Moles/Vol]14 mmol/L5 - 15 mmol/LPrFamily Health West Hospital Health SystemAST [Catalytic activity/Vol]189 U/LHigh0 - 41 U/[facility] SystemBilirubin [Mass/Vol]1 mg/dL0.3 - 1.2 mg/dLHarrison Community Hospital SystemCalcium [Mass/Vol]8.1 mg/dLLow8.5 - 10.5 mg/dLProMercy Health Perrysburg Hospital SystemChloride [Moles/Vol]101 mmol/L98 - 109 mmol/[facility] Health SystemCO2 [Moles/Vol]22 mmol/L22 - 32 mmol/L [facility] CenterCreatinine [Mass/Vol]1.5 mg/dLHigh0.40 - 1.00 mg/dL [facility] CenterComment on above:METHOD TRACEABLE [facility] STANDARDeGFR (CKD-EPI)non-race ytxqsmpft11Luw PINCitizens Memorial HealthcareComment on above: Reported eGFR is based on the CKD-EPI 2020 equation that does not use a race coefficient. Glucose [Mass/Vol]110 mg/cSKtqc65 - 99 mg/dLHarrison Community Hospital SystemPotassium [Moles/Vol]3.1 mmol/LLow3.5 - 5.0 mmol/[facility] Health SystemProtein [Mass/Vol]5.8 g/dLLow6.0 - 8.0 g/dLHarrison Community Hospital SystemSodium [Moles/Vol]137 mmol/L134 - 146 mmol/[facility] Health SystemUrea nitrogen [Mass/Vol]21 mg/dL5 - 27 mg/dLHarrison Community Hospital SystemElectrocardiogram, 12-leadon 05-21-2024 TRACEMASTERVUEHarrison Community Hospital SystemEosinophils/100 WBC Manual cnt (Bld)on 57-66-9954Beayulvcgrd/100 WBC (Bld)Eosinophils/100 leukocytes in Blood by Manual count0.9-7.0[facility] CenterErythrocyte distribution width Auto (RBC) [Ratio]on 41-06-8729Sontvnjmrtw distribution width (RBC) [Ratio] Erythrocyte distribution width [Ratio] by Automated count11.0-15.0[facility] CenterEstimated glomerular filtration rate (GFR) non- Americanon 04-86-9271GQQ/1.73 sq M.predicted among non-blacks MDRD (S/P/Bld) [Vol rate/Area]Estimated glomerular filtration rate (GFR) non- Low>=60 mL/min/1.73m 2FElyria Memorial HospitalFine granular cast count in urine sediment by microscopy (number/low power field )on 99-53-3344Owbi Granular Casts LM.LPF (Urine sed) [#/Area]Fine granular cast count in urine sediment by microscopy (number/low power field )[facility] CenterGlobulin Calc (S) [Mass/Vol]on 94-79-3260Ncnycrri (S) [Mass/Vol]Serum globulin measurement by calculation (mass/volume)[facility] CenterGlucose Glucometer (BldC) [Mass/Vol]on 97-46-8529Ogfpxyx [Mass/Vol]114 mg/oVQfwc40 - 99 mg/dLProMercy Health Perrysburg Hospital SystemInterpretation and review of laboratory resultsAbnormalProOur Lady Of Mercy Hospital - AndersonProMercy Health [facility] Hospital SystemGlucose [Mass/Vol]114 mg/cGDtkb37-06SvaFlxnqw [place]edo HospitalGuidance for percutaneous placement of nephrostomy tube of Kidneyon 87-03-8742MJGN: Image guided percutaneous nephrostomy tube placement, left [...] was then dilated to accommodate a 10 Cymraes nephrostomy tube. The catheter was secured with a single 0 Prolene suture. Dressing applied. Patient tolerated all procedures well and there were no complications. FINDINGS: Severe left hydronephrosis, fluoroscopic images demonstrated appropriate positioning of nephrostomytube within the collecting system IMPRESSION: Successful image guided placement of left 10 Cymraes percutaneous nephrostomy tube PLAN: Maintained to gravity [...] was then dilated to accommodate a 10 Cymraes nephrostomy tube. The catheter was secured with a single 0 Prolene suture. Dressing applied. Patient tolerated all procedures well and there were no complications. FINDINGS: Severe left hydronephrosis, fluoroscopic images demonstrated appropriate positioning of nephrostomytube within the collecting system IMPRESSION: Successful image guided placement of left 10 Cymraes percutaneous nephrostomy tube PLAN: Maintained to gravity drainage Follow-up urine culture Routine catheter exchange should be performed in 6-8 weeks pending definitive urologic management Finalized by Den Thompson MD on 05/21/2024 5:07 PM [facility] CenterRadiology Study observation (narrative)[facility] CenterGuidance for percutaneous placement of nephrostomy tube of KidneyOrdered By: Den Thompson on 05-13-6646HbhHarxhmFirelands Regional Medical Center South Campus Work Phone: Hematocrit Auto (Bld) [Volume fraction]on 05-21-2024 Hematocrit (Bld) [Volume fraction]Hematocrit [Volume Fraction] of Blood by Automated count36.0-48.0[facility] CenterHemoglobin [Mass/volume] in Bloodon 15-34-8940Wakobgqnfy (Bld) [Mass/Vol]Hemoglobin [Mass/volume] in Blood12.0-16.0[facility] CenterIR PERC NEPH TUBE LT + NGRAM + S AND Ion 13-90-1459SV PERC NEPH TUBE LT + NGRAM + [...] was then dilated to accommodate a 10 Cymraes nephrostomy tube. The catheter was secured with a single 0 Prolene suture. Dressing applied. Patient tolerated all procedures well and there were no complications. FINDINGS: Severe left hydronephrosis, fluoroscopic images demonstrated appropriate positioning of nephrostomytube within the collecting system IMPRESSION: Successful image guided placement of left 10 Cymraes percutaneous nephrostomy tube PLAN: Maintained to gravity drainage Follow-up urine culture Routine catheter exchange should be performed in 6-8 weeks pending definitive urologic management Finalized by Den Thompson MD on 05/21/2024 5:07 PMNormalProMedica Lima City HospitalLaboratory - Chemistry and Chemistry - challengeon 85-99-4926Sxkipbe [Moles/Vol]4.9 mmol/LCritically high0.4-2.0[facility] Comment on above:RESULTS CALLED TO DR. RIVERABilirubin Ql (U)SMALLAbnormal NEGATIVECincinnati Va Medical CenterGlucose (U) [Mass/Vol]NegativeNEGATIVE [facility] CenterKetones Ql (U)TRACE mg/dLAbnormalNEGATIVE [facility] CenterpH (U)5.5 [pH]5.0-9.0[facility]ula General Hospitalpecific gravity (U) [Rel density]1.0251.005-1.025[facility] CenterUrobilinogen Qn (U)1.0 {Joon'U}/dL0.2-1.0[facility] CenterAlbumin [Mass/Vol]2.4 g/dLLow3.4-5.0[facility] CenterALP [Catalytic activity/Vol]390 U/QWdmk51-341YqbwlickuCincinnati Va Medical CenterALT [Catalytic activity/Vol]93 U/SXktb26-93LuqzgeykpCincinnati Va Medical CenterAST [Catalytic activity/Vol]190 U/LNopp77-13AsvcseykqCincinnati Va Medical CenterBilirubin [Mass/Vol]1.6 mg/dLHigh0.2-1.0[facility] Calcium [Mass/Vol]9.5 mg/dL8.5-10.1FElyria Memorial HospitalChloride [Moles/Vol]98 mmol/F82-460BdorapgonCincinnati Va Medical CenterCO2 [Moles/Vol]24.3 mmol/L21.0-32.0[facility] CenterCreatinine [Mass/Vol]1.50 mg/dL High0.55-1.02[facility] CenterGFR/1.73 sq M.predicted MDRD (S/P/Bld) [Vol rate/Area]42 mL/min/{1.73_m2}Low>=60 mL/min/1.73m 2FElyria Memorial HospitalGlucose [Mass/Vol]116 mg/rJVmux32-124VtfdnhjueCincinnati Va Medical CenterPotassium [Moles/Vol]2.6 mmol/LCritically low3.5-5.1FElyria Memorial HospitalComment on above:RESULTS CALLED TO SHARRI DEGROOT RN @BY Barb Connors at 0450Protein [Mass/Vol]7.0 g/dL6.4-8.2FMetroHealth Main Campus Medical Centerodium [Moles/Vol]138 mmol/F785-125FwajqitgcCincinnati Va Medical CenterUrea nitrogen [Mass/Vol]19.0 mg/dLHigh7.0-18.0[facility] CenterUrea nitrogen/Creatinine [Mass ratio]12.7 mg/mgCincinnati Va Medical CenterLaboratory - Hematology and Cell countson 76-17-0959Xdka form neutrophils/100 WBC (Bld)1.0 %0-5FElyria Memorial Hospital Lymphocytes/100 WBC (Bld)12.0 %Low20.5-60.0[facility] Monocytes/100 WBC (Bld)15.0 %High1.7-12.0[facility] Laboratory - Microbiology and Antimicrobial susceptibilityon 05-21-2024 SARS-CoV-2 (COVID-19) RNA VENICE+probe Ql (Unsp spec)NegativeNEGATIVECincinnati Va Medical CenterComment on above:This test has not been FDA [...] Org specific cx Ql (Vag fld)Not detectedNOT DETECTGalion HospitalLaboratory - Specimen informationon 33-03-4146Zhrqrxhwne (U)CLOUDYAbnormal CLEARCincinnati Va Medical CenterColor (U)DK. YELLOWYELLOWCincinnati Va Medical CenterLaboratory - Urinalysison 25-87-9653Mpmtbjzof sediment LM Ql (Urine sed)[facility] SystemLeukocyte esterase Test strip Ql (U)TRACEAbnormalNEGATIVECincinnati Va Medical CenterMucus Ql (Urine sed) SMALLAbnormalNONE SEENCincinnati Va Medical CenterNitrite Ql (U)Positive AbnormalNEGATIVECincinnati Va Medical CenterProtein Ql (U)>=300 mg/dL AbnormalNEG/TRACECincinnati Va Medical CenterLactate (P jannette) [Moles/Vol]on 26-88-9515Lywqehuymcvjje and review of laboratory resultsAbnormalProMedica Health SystemProMedica Health SystemLACTATE W/REFLEX2.4 mmol/LHigh0.4-2.0 [facility] HospitalComment on above:Performed By: #### 47097-9 ####[facility] ([id number])[address] [address] Interpretation and review of laboratory resultsAbnormalProSelect Specialty Hospital - HarrisburgLACTATE W/REFLEX2.3 mmol/LHigh0.4-2.0ProBrecksville Va / Crille HospitalComment on above:Performed By: #### 75038-1 #### [facility] ([id number]) [address], [address] [place], [place] [address]Sdppxde w/ Reflexon 63-60-3653Jeiuuke (P jannette) [Moles/Vol]2.4 mmol/LHigh0.4 - 2.0 mmol/LProMedica Health SystemLactate (P jannette) [Moles/Vol]2.3 mmol/LHigh0.4 - 2.0 mmol/LProMedGalion Hospital SystemLeukocytes [#/volume] corrected for nucleated erythrocytes in Blood by Automated counon 43-88-4997RHP corrected for nucl RBC Auto (Bld) [#/Vol]Leukocytes [#/volume] corrected for nucleated erythrocytes in Blood by Automated counLow4.0-11.0[facility] CenterMAGNESIUMon 56-46-9740Nuecstdtx [Mass/Vol]1.1 mg/dLLow1.8-2.6[facility] HospitalComchelsea hospital on above:Performed By: #### PINR, 23349-7, CMP, 69557-7, 2777-1, CBCA, 65199-9 #### [facility] ([id number]) [address], [address] [place], [place] [address]LFD Auto (RBC) [Entitic mass]on 00-18-6659SLN (RBC) [Entitic mass]MCH [Entitic mass] by Automated count26.7-34.0[facility] Medical CenterMCHC Auto (RBC) [Mass/Vol]on 26-22-1330GMQR (RBC) [Mass/Vol]MCHC [Mass/volume] by Automated count29.9-35.2FElyria Memorial HospitalMCV Auto (RBC) [Entitic vol]on 83-02-2655TCL (RBC) [Entitic vol]MCV [Entitic volume] by Automated count81.0-99.0[facility] CenterMagnesiumon 48-64-5371Uftspvdjb [Mass/Vol]1.1 mg/dLLow1.8 - 2.6 mg/dLTrumbull Regional Medical Center Myelocytes/100 WBC Manual cnt (Bld)on 83-90-1220Mwgapfjogh/100 WBC (Bld) Myelocytes/100 leukocytes in Blood by Manual countCincinnati Va Medical CenterNo Panel Informationon 15-38-3318Hcpawjwcmjlzvd and review of laboratory resultsAbnormalTrumbull Regional Medical CenterProOur Lady Of Mercy Hospital - AndersonProOur Lady Of Mercy Hospital - AndersonTroponin I High Mjfllxzokdp3904.5 pg/mLCritically high4.0-51.3FElyria Memorial HospitalComment on above:RESULTS CALLED TO Demetria Starks [...] DIAGNOSTIC AND CLINICAL INFORMATION.Miscellaneous Test CommentSee comment [facility] Medical CenterComment on above:Specimen Source: UCATH - Urine Catheterized - Urine Cath - 200.300Urine BacteriaMODERATE #/HPFAbnormalNONE [facility] CampusUrine Culture Result 1\R\ Urine Culture, RoutineCincinnati Va Medical CenterUrine Microscopic ReviewYEOhioHealth Nelsonville Health CenterUrine Occult BloodLARGEAbnormalNEGATIVECincinnati Va Medical CenterUrine Other CastsSEEN #/LPFAbnormalNONE [facility] CampusUrine Other CrystalsSeen #/HPFAbnormalNone [facility] PrebleUrine XHG52-91 #/HPFAbnormal0-2FElyria Memorial Hospital Urine Squamous Epithelial CellsMODERATE #/LPFAbnormalNONE/RARECincinnati Va Medical CenterUrine UEG32-09 #/HPFAbnormalNONE SEENCincinnati Va Medical CenterAbsolute Basophils (Manual)0.00 10 3/uL0.00-0.10[facility] CenterBand Neutrophils # (Manual)0.0 10 3/uL0.0-0.3FElyria Memorial HospitalEosinophils # (Manual)0.01 10 3/uL0.00-0.70[facility] CenterLymphocytes # (Manual)0.20 10 3/uLLow1.20-3.80[facility] CenterMonocytes # (Manual)0.25 10 3/uLLow0.30-0.80[facility] CenterMyelocytes # (Manual)0.03[facility] CenterReactive Lymphocytes0.06[facility] CenterReactive Lymphocytes4.0 % [facility] Hospitalegmented Neutrophils # (Manual)1.10 10 3/uLLow 1.4-6.5FElyria Memorial HospitalBedside Influenza Type A AntigenNegative [facility] CenterComment on above:Negative for Flu A protein antigen. Infection due to Flu Acannot be ruled out. Flu A antigen in thesample may bebelow the detection limit of the test.Bedside Influenza Type B Antigen NegativeCincinnati Va Medical CenterComment on above:Negative for Flu B protein antigen. Infection due to Flu Bcannot be ruled out. Flu B antigen in the sample may bebelow the detection limit of the test.A.calcoaceticus-baumannii cmplx PCRNot detectedNOT [facility] CenterBacteroides fragilis (PCR)Not detectedNOT [facility] CenterBlood Culture SourceBloodCincinnati Va Medical CenterCandida albicans (PCR)Not detectedNOT DETECTGalion HospitalCandida auris (PCR)Not detectedNOT DETECTGalion HospitalCandida glabrata (PCR)Not detectedNOT [facility] CenterCandida krusei (PCR)Not detectedNOT DETECTGalion HospitalCandida parapsilosis (PCR) Not detectedNOT DETECTGalion HospitalCandida tropicalis (PCR) Not detectedNOT [facility] CenterCrypto neoformans/gattii (PCR)(LAB)Not detectedNOT [facility] CenterCTX-M ESBL (PCR)Not detectedNOT [facility] CenterEnterobacter cloacae complex (PCR)Not detectedNOT [facility] Enterobacterales (PCR)DetectedNOT [facility] Comment on above:RESULTS CALLED TO FRANKY MACHADO,PAEnterococcus faecalis PCR Not detectedNOT [facility] CenterEnterococcus faecium PCR Not detectedNOT [facility] CenterEscherichia coli Result DetectedNOT [facility] CenterComment on above:RESULTS CALLED TO FRANKY MACHADO,PAHaemophilus influenzae DNANot detectedNOT Cleveland ClinicIMP (blaIMP) Carbap Res Gene (PCR)Not detected NOT [facility] CenterKlebsiella aerogenes (PCR)Not detectedNOT [facility] CenterKlebsiella oxytoca (PCR)Not detectedNOT [facility] CenterKlebsiella pneumoniae group (PCR)Not detectedNOT [facility] CenterKPC (blaKPC) Detection (PCR)Not detectedNOT [facility] CenterListeria monocytogenes (PCR)Not detectedNOT [facility] CenterMCR-1 Resistance GeneNot detectedNOT [facility] CentermecA/C & MREJ Antimicrob Resist GenNOT APPLICABLENOT [facility] CentermecA-Methicillin Resistance GeneNOT APPLICABLENOT [facility] CenterNDM (blaNDM) Detection (PCR)Not detectedNOT [facility] ClinicNeisseria meningitidis (PCR)Not detectedNOT [facility] CenterProteus species (PCR)Not detectedNOT [facility] CenterPseudomonas aeruginosa (PCR)Not detected NOT DETECTKindred Healthcarealmonella spp. (PCR)Not detectedNOT [facility] Hospitalerratia marcescens (PCR)Not detected NOT DETECTKindred Healthcaretaphylococcus aureus (PCR)(LAB)Not detectedNOT [facility] Hospitaltaphylococcus epidermidis (PCR)Not detectedNOT [facility] Hospitaltaphylococcus lugdunensis (TEM-PCRNot detectedNOT [facility] Staphylococcus species (PCR)Not detectedNOT [facility] Hospitaltenotroph. maltophilia (PCR)Not detectedNOT [facility] Hospitaltreptococcus pneumoniae (PCR)Not detectedNOT [facility] Hospitaltreptococcus pyogenes (PCR)(LAB)Not detectedNOT DETECTE [facility] Hospitaltreptococcus species (PCR)Not detectedNOT [facility] Hospitalyn OXA-48-like Carb Res Gene (PCR)Not detectedNOT [facility] CenterVanA/B-Vancomycin Resistance GenesNOT APPLICABLENOT [facility] CenterVIM (blaVIM) Carbap Res Gene (PCR)Not detectedNOT [facility] CenterNo Panel InformationOrdered By: FABIEN RIVERA on 00-97-2195Wbgnkqng Identification OnlyCincinnati Va Medical CenterNo Panel InformationOrdered By: Senia Marker on 97-16-9790Itqhtyyd Identification [facility] Orthopedic CenterPHOSPHORUSon 66-57-8439Cmzrusjji [Mass/Vol]2.8 mg/dLNormal2.4-4.9 [facility] Defuniak Springs HospitalComment on above:Performed By: #### PINAbby, 92441-5, CMP, , 2776-, CBCA, 20837-0 #### [facility] ([id number]) [address] [place], [place] [address]GGSDHVQIAje 64-88-2670Hmniohvzn [Moles/Vol]3.8 mmol/LNormal 3.5-5.0ProMedica Defuniak Springs HospitalComment on above:Performed By: #### 2823-3 ####[facility] ([id number])[address], [place] [address]NRGIKUO AND INRon 47-17-0110JLI Coag (PPP) [Relative time]1.2 {INR}High 0.8-1.1ProMedica Defuniak Springs HospitalComment on above:Performed By: #### PINR, 17557- 9, CMP, 05221-1, 2777-1, CBCA, 41696-9 #### [facility] ([id number]) [address], [address] [place], [place] [address]QD Coag (PPP) [Time]14.1 sHigh9.8-13.2POhioHealth Grove City Methodist Hospital Comment on above:Performed By: #### PINR, 75631-5, CMP, 13544-1, 2777-1, CBCA, 58652-0 #### [facility] ([id number]) [address], [address] [place], [place] [address]Nmoaktgfbikw 78-33-6372Qzlbibryt [Mass/Vol]2.8 mg/dL2.4 - 4.9 mg/dLTrumbull Regional Medical CenterPlatelet mean volume Auto (Bld) [Entitic vol]on 18-32-3944Gjhwbobz mean volume (Bld) [Entitic vol]Platelet mean volume [Entitic volume] in Blood by Automated countLow9.5-13.5FElyria Memorial Hospital Platelets Auto (Bld) [#/Vol]on 79-61-7551Zlvtaxhnp (Bld) [#/Vol]Platelets [#/volume] in Blood by Automated qvabsIlh102-856FknhfpltpCincinnati Va Medical CenterPotassiumon 02-97-2515Fvkfkrldx [Moles/Vol]3.8 mmol/L3.5 - 5.0 mmol/L [facility] SystemPotassium [Moles/Vol]on 22-22-6906ReeZmbtwvFirelands Regional Medical Center South Campus Procalcitoninon 87-74-4629Itreadkmzhlju [place] [Mass/Vol]463.36 ng/mLHighNINF - 0.05 ng/mLTrumbull Regional Medical CenterComment on above:NOTE <0.50 ng/mL - Low risk of severe sepsis and/or septic shock. <2.00 ng/mL - Recommend retesting within 6-24 hours. >2.00 ng/mL - High risk of sepsis and/or septic shock. Procalcitonin [place] [Mass/Vol]on 97-14-5086Isivnuhdsjijrm and review of laboratory resultsAbnormalProMercy Health Perrysburg Hospital SystemProMercy Health [facility]sburg Hospital MmcjofIWVJSHFIPWPDU687.36 ng/mLHigh<0.05[facility] HospitalComment on above:Result Comment: NOTE <0.50 ng/mL - Low risk of severe sepsis and/or septic shock. <2.00 ng/mL - Recommend retesting within 6-24 hours. >2.00 ng/mL - High risk of sepsis and/or septic shock.Performed By: #### PINR, 48953-7, CMP, 15106-4, 2777-1, CBCA, 51487-6 #### [facility] ([id number]) [address] [place], [place] [address]Ultvcdf & INRon 83-49-9328EYO Coag (PPP) [Relative time]1.2 {INR}HighHarrison Community Hospital SystemInterpretation and review of laboratory results AbnormalTrumbull Regional Medical CenterPT Coag (PPP) [Time]14.1 [facility] East Norwegian StreetRBC Auto (Bld) [#/Vol]on 89-24-4596USX (Bld) [#/Vol]Erythrocytes [#/volume] in Blood by Automated count4.20-5.40[facility] Segmented neutrophils/100 WBC Manual cnt (Bld)on 03-43-6498Cyvxbbkor neutrophils/100 WBC (Bld)Manual blood segmented neutrophils/100 leukocytes 43.0-75.0[facility] Hospitalerum or plasma albumin/globulin mass ratioon 25-98-7301Fjnygqw/Globulin [Mass ratio]Serum or plasma albumin/globulin mass ratioAshtabula General Hospitalerum or plasma anion gap determinationon 99-05-2247Juclw gap [Moles/Vol]Serum or plasma anion gap determinationCincinnati Va Medical CenterURINALYSISon 97-51-7646Rwhfqkclv Ql (U)NegativeNormalNEGProMercy Health St. Rita'S Medical Centerca Lima City HospitalComment on above:Performed By: #### UA ####[facility] ([id number])[address], [place] [address]MFFWP/HGBMODERATEAbnormalNEGProMercy Health St. Rita'S Medical Centerca Lima City HospitalComment on above:Performed By: #### UA ####[facility] ([id number])[address] [address]Tlino (U)BROWNAbnormalYELLOWProMedica Ashraf HospitalComment on above:Performed By: #### UA ####[facility] ([id number])[address] [address]Nfspbpx Ql (U)Negative NormalNEGProMedica Ashraf HospitalComment on above:Performed By: #### UA ####[facility] ([id number])[address], [address] [address]Oxmxmfo Ql (U)NegativeNormalNEGProMedica Ashraf HospitalComment on above: Performed By: #### UA ####[facility] ([id number])[address]TOMER[facility],[place] [address]Ercukyjlj esterase Test strip Ql (U)Large AbnormalNEGProMedica Ashraf HospitalComment on above:Performed By: #### UA ####[facility] ([id number])[address]TOMERCY [facility],[place] [address]Thctfrz Ql (U)NegativeNormalNEGProMedica Ashraf HospitalComment on above: Performed By: #### UA ####[facility] ([id number])[address] [address]vD (U)7.0 [pH]Normal5.0-8.5ProMedica Ashraf HospitalComment on above:Performed By: #### UA ####[facility] ([id number])[address] [address]Evlyfrt Ql (U)300 mg/dL AbnormalNEGProMedica Ashraf HospitalComment on above:Performed By: #### UA ####[facility] ([id number])[address] [address]K.B.CELLS>146Lfws4-0HoqFwnztn Ashraf HospitalComment on above:Performed By: #### UA ####[facility] ([id number])[address] [address] [place] [address]Kuestdsx gravity (U) [Rel density]1.267Uqmhoj4.003-1.035 [facility] Defuniak Springs HospitalComment on above:Performed By: #### UA ####[facility] ([id number])[address] [place] [address] [place] [address] TURBIDITYCLOUDYAbnormalCLEARProMedica Defuniak Springs HospitalComment on above:Performed By: #### UA ####[facility] ([id number])[address] [address]Nnwbjhqkkl dipstick W Reflex Microscopic panel (U)URINE RECEIVED WITHOUT PRESERVATIVE-DELAYS IN TRANSPORT MAY AFFECT RESULTS.INTERPRET WITH CAUTION AND CLINICAL CORRELATION IS RECOMMENDED.NormalProMedica Defuniak Springs HospitalComment on above:Performed By: #### UA ####[facility] ([id number])[address] [address]Kjoiggudvrng (U) [Mass/Vol] mg/dLNormal<1.1PMercy Memorial Hospital HospitalComment on above:Performed By: #### UA ####[facility] ([id number])[address] [place] [address] [place] [address]T.B.CELLS>681Bzqx1-9FruBlkjdt Toledo HospitalComment on above:Performed By: #### UA ####[facility] ([id number])0 [address] [place] [address] [place] [address]EON CLUMPSMANYAbnormalNONEPMercy Memorial Hospital HospitalComment on above:Performed By: #### UA ####[facility] ([id number])[address] [address]RRACM CULTUREon 54-05-3020Yqpakefe identified Cx Nom (U)CULTURE RESULTS <10,000 ORGANISMS/ML NORMAL URO GENITAL FLORANoBellevue Hospital Comment on above:Performed By: #### PINR, 98035-0, CMP, 25316-6, 2777-1, CBCA, 34394-8 #### [facility] ([id number]) [address] [place], [place] [address]Ojtcfaqjwfee 02-87-7095Ybrcazuaw Ql (U)NegativeNegative^Negative [facility] Centeredica Health SystemColor (U)BROWNAbnormalYELLOW^YELLOWHarrison Community Hospital SystemGlucose (U) [Mass/Vol]NegativeNegative^Negative mg/dLTrumbull Regional Medical CenterHemoglobin Auto test strip Ql (U)MODERATEAbnormalNegative^Negative [facility] Hospitala Health SystemInterpretation and review of laboratory resultsAbnormal ProMatmore community hospital Health SystemKetones (U) [Mass/Vol]NegativeNegative^Negative mg/dL [facility] SystemLeukocyte clumps LM Ql (Urine sed)MANYAbnormalNONE^NONE [facility] SystemLeukocyte esterase Auto test strip Ql (U)LargeAbnormal Negative^NegativeKnox Community Hospital Health SystemNitrite Auto test strip Ql (U)Negative Negative^NegativeHarrison Community Hospital SystempH (U)7 [pH]5.0 - 8.5PSavoy Medical Center Health SystemProtein (U) [Mass/Vol]300 mg/dLAbnormalNegative^NegativeHarrison Community Hospital SystemRBC Auto (Urine sed) [#/Area][facility] SystemSpecific gravity Refractometry automated (U) [Rel density]1.0351.003 - 1.035[facility] SystemTurbidity Ql (U)CLOUDYAbnormalCLEAR^CLEARHarrison Community Hospital SystemUrinalysis microscopic panel Auto (Urine sed) [#/Area]URINE RECEIVED WITHOUT PRESERVATIVE- DELAYS IN TRANSPORT MAY AFFECT RESULTS.INTERPRET WITH CAUTION AND CLINICAL CORRELATION IS RECOMMENDED.ProMjack hughston memorial hospitala Health SystemUrobilinogen Qn (U)NINF [facility] SystemWBC Auto (Urine sed) [#/Area][facility] System ProMSt. Luke's Hospital SystemXR CHEST 1 VWon 12-01-1249UC CHEST 1 VWXR CHEST 1 VW Single view chest XR CHEST 1 VW History: central venous line placement verification Comparison: May 21 at 4:24 AM current examination 2:20 PM Impression: * No consolidation or pleural fluid. No acute findings. * Central line placed at the superior vena cava. Poor inspiration without acute disease. No pneumothorax. Finalized by Jorge Mcdaniels MD on 05/21/2024 2:30 PMNormalCleveland Clinic Hillcrest HospitalXR Chest Single viewon 27-16-6997Gjidxi view chest XR CHEST 1 VW History: [...] Jorge Mcdaniels MD on 05/21/2024 2:30 PM [facility] CenterRadiology Study observation (narrative)[facility] CenterXR Chest Single viewOrdered By: Jorge Mcdaniels on 24-35-7431IdoHfktkdFirelands Regional Medical Center [facility] Work Phone: aPTT Coag (PPP) [Time]on 04-14-3646cPBQ Coag (Bld) [Time]29 kWsekon60-80RmrXfgzwkCleveland Clinic Hillcrest HospitalComment on above:Performed By: #### PINR, 83141-8, CMP, 46679-2, 2777-1, CBCA, 67998-7 #### [facility] ([id number]) [address] [place], [place] [address]Ifrdvguam virus B Ag [Presence] in Upper respiratory specimen by Rapid immunoassayon [id number] Ag IA.rapid Ql (Nph)PositiveCincinnati Va Medical CenterNo Panel Informationon 08-15-4952Rjherrchp Type A (Rapid) NegativeCincinnati Va Medical CenterPOC SARS CoV-2 AntigenNegativeCincinnati Va Medical CenterXR KUB 1 VIEWon 83-53-8338HS KUB 1 VIEWEXAMINATION: XR KUB 1 VIEW [...] Electronically authenticated by: TOM NEAL Date: 2022-08-09 08:52NoalThTrinity Health System [facility] CBC AUTO DIFFon [id number] #0.0 103/ulNormal 0.0-0.1[facility] Cleveland EastComment on above:Performed By: #### HFPFCBC #### [facility] [address] [address] [address] Caitlin Pulidosophils/100 WBC (Bld)0.4 %Normal0.2-2.0[facility] Comment on above:Performed By: #### HFPFCBC #### [facility] [address] [address] [address] Caitlin Pritchard #0.2 103/ulNormal0.0-0.7The [facility] ClinicComment on above: Performed By: #### HFPFCBC #### [facility] [address] [address] [address] Caitlin Harmanosinophils/100 WBC (Bld)2.5 %Normal0.9-7.0The [facility] Comment on above:Performed By: #### HFPFCBC #### [facility] [address] [address] [address] Caitlin Harmanrythrocyte distribution width (RBC) [Ratio]13.5 %Clxzqj74.0-15.0 The [place] ClinicComment on above:Performed By: #### HFPFCBC #### [facility] [address] [place] [address] Dr. Caitlin Esparzaatocrit (Bld) [Volume fraction]41.9 %Evurtc51.0-48.0The [place] ClinicComment on above:Performed By: #### ARLENEFCBC #### [facility] [address] [place] [address] Dr. Caitlin WinstonHemoglobin (Bld) [Mass/Vol]13.7 g/gFGlbtsk86.0-16.0The [place] ClinicComment on above:Performed By: #### ARLENEFCBC #### [facility] [address] [place] [address] Dr. Caitlin Carson #0.01 10e3/ulNormal0.00-0.03The [place] ClinicComment on above:Performed By: #### MAAMEBC #### [facility] [address] [place] [address] Dr. Caitlin Carson %0.1 %Normal0.0-0.5The [facility] ClinicComment on above: Performed By: #### ARLENEFCBC #### [facility] [address] [place] [address] Dr. Caitlin Torres #3.2 103/ulNormal1.2-3.8The [facility] ClinicComment on above:Performed By: #### ARLENEFCBC #### [facility] [address] [place] [address] Dr. Caitlin Richeyhocytes/100 WBC (Bld)42.0 %Qbmltz75.5-60.0The [place] ClinicComment on above:Performed By: #### HFPFCBC #### [facility] [address] [place] [address] Dr. Caitlin Rowell (RBC) [Entitic mass]29.4 uiXiprun02.7-34.0The [place] ClinicComment on above:Performed By: #### MAAMEBC #### [facility] [address] [address] [address] Caitlin IngramHC (RBC) [Mass/Vol]32.7 g/uLRkwrqu38.9-35.2The [place] ClinicComment on above:Performed By: #### HFPFCBC #### [facility] [address] [place] [address] Dr. Caitlin IngramV (RBC) [Entitic vol]89.9 uPVljcrt95.0-99.0The [place] ClinicComment on above:Performed By: #### HFPFCBC #### [facility] [address] [place] [address] Dr. Caitlin Salas #0.5 103/ulNormal0.3-0.8The [facility] ClinicComment on above:Performed By: #### HFPFCBC #### [facility] [address] [place] [address] Dr. Caitlin Kempocytes/100 WBC (Bld)7.1 %Normal1.7-12.0The [facility] Comment on above:Performed By: #### HFPFCBC #### [facility] [address] [place] [address] Dr. Caitlin Abraham #3.6 103/ulNormal1.4-6.5The [facility] ClinicComment on above:Performed By: #### HFPFCBC #### [facility] [address] [place] [address] Dr. Caitlin Kennyutrophils/100 WBC (Bld)47.9 %Htpfej33.0-75.0The [place] [facility] ClinicComment on above:Performed By: #### HFPFCBC #### [facility] [address] [place] [address] Dr. Caitlin Schultzlet mean volume (Bld) [Entitic vol]9.2 fLCritically low 9.5-13.5The [place] ClinicComment on above:Performed By: #### HFPFCBC #### [facility] [address] [place] [address] Dr. Caitlin WinstonPLT203 103/odPnbizk161-812Rpg Sacha HospitalComment on above: Performed By: #### HFPFCBC #### [facility] [address] [place] [address] Dr. Caitlin WinstonRBC4.66 106/ulNormal4.20-5.40The [facility] on above:Performed By: #### HFPFCBC #### [facility] [address] [place] [address] Dr. Caitlin WinstonWBC7.6 103/ulNormal4.0-11.0The [facility] on above: Performed By: #### HFPFCBC #### [facility] [address] [place] [address] Dr. Caitlin BelleFAIR PROFILEon 61-25-0982Wnofowd [Mass/Vol]3.6 g/dLNormal 3.4-5.0The [facility] on above:Performed By: #### HFPF #### [facility] [address] [place] [address] Dr. Caitlin WinstonAlbumin/Globulin [Mass ratio]0.9 {ratio}NormalThe [facility] ClinicComchelsea hospital on above:Performed By: #### HFPF #### [facility] [address] [place] [address] Dr. Caitlin Robles [Catalytic activity/Vol]87 U/OUhwhzb63-878Geq [facility] on above:Performed By: #### HFPF #### [facility] [address] [place] [address] Dr. Caitlin Dacosta [Catalytic activity/Vol]20 U/GNiojvq86-47Kyi [facility] on above:Performed By: #### HFPF #### [facility] [address] [place] [address] Dr. Caitlin Melchor [Catalytic activity/Vol]15 U/XDfswjt49-94Uee [facility] on above:Performed By: #### HFPF #### [facility] [address] [place] [address] Dr. Caitlin WinstonBilirubin [Mass/Vol]0.4 mg/dLNormal0.2-1.0[facility] Comment on above:Performed By: #### HFPF #### [facility] [address] [address] [address] Caitlin WinstonCalcium [Mass/Vol]8.7 mg/dLNormal8.5-10.1[facility] Comment on above:Performed By: #### HFPF #### [facility] [address] [address] [address] Caitlin WinstonChloride [Moles/Vol]102 mmol/QBmepcp82-022Wut [facility] Comment on above:Performed By: #### HFPF #### [facility] [address] [address] [address] Caitlin WinstonCHOL-HDL RATIO NORMSOhioHealth Marion General HospitalComment on above:Result Comment: 3.3 - 4.4 LOW RISK 4.4 - 7.1 AVERAGE RISK 7.1 - 11.0 MODERATE RISK >11.0 HIGH RISKPerformed By: #### HFPF #### [facility] [address] [place] [address] Dr. Caitlin Alexanderesterol [Mass/Vol]180 mg/dLNormal<=200[facility] Comment on above:Performed By: #### HFPF #### [facility] [address] [address] [address] Caitlin WinstonCholesterol in HDL [Mass/Vol]57 mg/gGPphwxq79-91BexRegency Hospital Cleveland EastComment on above:Performed By: #### HFPF #### [facility] [address] [address] [address] Caitlin WinstonCholesterol in LDL [Mass/Vol]107.8 mg/dLWilson HealthComment on above:Performed By: #### HFPF #### [facility] [address] [place] [address] Dr. Caitlin Alexanderesterrafy.total/Cholesterol in HDL [Mass ratio]3.2 {ratio} NormalRegency Hospital Cleveland EastComment on above:Performed By: #### HFPF #### [facility] [address] [address] [address] Caitlin WinstonCO2 [Moles/Vol]28.3 mmol/VKullgl64.0-32.0[facility] Comment on above:Performed By: #### HFPF #### [facility] [address] [address] [address] Caitlin WinstonCreatinine [Mass/Vol]0.63 mg/dLNormal0.55-1.02[facility] EastComment on above:Performed By: #### HFPF #### [facility] [address] [place] [address] Dr. Caitlin WinstonGlobulin (S) [Mass/Vol]3.8 g/dLWilson HealthComment on above:Performed By: #### HFPF #### [facility] [address] [place] [address] Dr. Caitlin WinstonGlucose [Mass/Vol]96 mg/kWXwlobq29-737FayRegency Hospital Cleveland East Comment on above:Performed By: #### HFPF #### [facility] [address] [place] [address] Dr. Caitlin WinstonHDL NORMAL> or = 60 mg/dl - LOW CARDIOVASCULAR RISK <40 mg/dl - HIGH CARDIOVASCULAR RISKWilson HealthComment on above:Performed By: #### HFPF #### [facility] [address] [place] [address] Dr. Caitlin WinstonLDL CALC NORMALSEE BELOWWilson HealthComment on above:Result Comment: <100 mg/dl OPTIMAL 100 - 129 mg/dl NEAR OR ABOVE OPTIMAL 130 - 159 mg/dl BORDERLINE HIGH 160 - 189 mg/dl HIGH >190 mg/dl VERY HIGH Performed By: #### HFPF #### [facility] [address] [place] [address] Dr. Caitlin WinstonPotassium [Moles/Vol]3.9 mmol/LNormal3.5-5.1[facility] Comment on above:Performed By: #### HFPF #### [facility] [address] [place] [address] Dr. Caitlin WinstonProtein [Mass/Vol]7.4 g/dLNormal6.4-8.2The [facility] Comment on above:Performed By: #### HFPF #### [facility] [address] [place] [address] Dr. Caitlin WinstonSodium [Moles/Vol]139 mmol/MXreymc991-433Txe [facility] Comment on above:Performed By: #### HFPF #### [facility] [address] [place] [address] Dr. Caitlin WinstonTriglyceride [Mass/Vol]76 mg/dLNormal<=150The [facility] Comment on above:Performed By: #### HFPF #### [facility] [address] [place] [address] Dr. Caitlin WinstonTSH2.462 uIU/mLNormal0.358-3.740[facility] EastComment on above:Performed By: #### HFPF #### [facility] [address] [place] [address] Dr. Caitlin WinstonUrea nitrogen [Mass/Vol]23.0 mg/dLCritically high7.0-18.0The [place] [facility] ClinicComment on above:Performed By: #### HFPF #### [facility] [address] [place] [address] Dr. Caitlin WinstonUrea nitrogen/Creatinine [Mass ratio]36.5 mg/mgNoLake County Memorial Hospital - WestComment on above:Performed By: #### HFPF #### [facility] [address] [place] [address] Dr. Caitlin WinstonVLDL CALC15.2 mg/dLNoLake County Memorial Hospital - WestComment on above: Performed By: #### HFPF #### [facility] [address] [place] [address] Dr. Caitlin WinstonOperative Reporton [id number] ReportMR#: [id number] S [facility] Pt. Name: Sharri Murillo Room #: 0C [...] diameter, was closed by 1-0 PDS interrupted oqybow-vq-zokec sutures. Without significant tension. The inferior fascial defect is 5 cm in diameter. Which was closed by 1-0 PDS interrupted ruggvt-uf-mholi sutures without tension. Subcutaneous wound was irrigated [...] Pagan M.D. Date Trans: 02/25/2021 01:27 P/ OMID_JN:[id number] HospitalPO GLUCOSE LAB on 64-22-6784Nkgzoxx [Mass/Vol]90 mg/iFKuqmue26-038Ezt [facility] Medical CenterComment on above:Performed By: #### [id number] #### [facility] [address] [place] [address], USACT ABDOMEN AND PELVIS W ORAL CONTRASTon 52-31-4650IT ABDOMEN AND PELVIS W ORAL CONTRASTUnHolzer Health System Department of Radiology [address] [place] [phone] Patient Name: SHARRI MURILLO : 1955 Sex: F Age: Race: White Pt. Location: Patient Status: D Ordered Date: 01/05/2021 9:35:00 AM Completed Date: 01/14/2021 08:25 AM Requesting Provider: SIDNEY PAGAN Attending Provider: SIDNEY PAGAN Report Copy To: OLMAN SHOEMAKER Signs & Symptoms: K43.9 Ventral hernia without obstruction or gangrene I10 History: Saritha [phone] patient will need to come early to drink [employer] auth [id number] valid 01/07/2021-02/21/2021 per arlette [id number] *kw Comments: Exam: CT ABDOMEN AND PELVIS [...] cholecystectomy. Electronically signed: Jill Melvin. Transcribed by: [email or web address], User Resident: Electronically Signed by: JILL MELVIN @ 01/15/2021 08:38 AMNormalThe [facility] Vital Signs Date TimeVital SignValuePerforming LkkodwdutYvwhbbxw54-64-0891 10:09-0400Body gdlohd869.18 cmOlman Shoemaker MD Work Phone: [phone]10-28-2025 10:09-0400 Body mass index (BMI) [Ratio]49.6 kg/b7TjdtsoOlman Shoemaker MD Work Phone: [facility]10-28-2025 10:09-0400 Body .78 kgOlman Shoemaker MD Work Phone: [phone]10-28-2025 10:09-0400 Diastolic blood rparnvyb46 mm[Hg]Olman Shoemaker MD Work Phone: [phone] [place], [place] [address]10-28-2025 10:09-0400 Heart rate73 /minOlman Shoemaker MD Work Phone: [phone]10-28-2025 10:09-0400 Systolic blood luwvjtel077 mm[Hg]Olman Shoemaker MD Work Phone: [phone]07-16-2025 12:14-0400 Body .2 cmAleksandra Sandoval MD Work Phone: [facility]07-16-2025 12:14-0400Body mass index (BMI) [Ratio]49.18 kg/s9VuwrdgtAleksandra Sandoval MD Work Phone: [facility]07-16-2025 12:14-0400Body txjieq704.43 kgAleksandra Sandoval MD Work Phone: [facility] [employer] Kdweia42-79-0177 12:14-0400Diastolic blood ttgeiozn32 mm[Hg]Aleksandra Sandoval MD Work Phone: [facility] [employer] [facility] HospitalComment on above:Pt. states they had a difficult drive to this office.02-05-2025 12:14-0400Heart rate73 /min Aleksandra Sandoval MD Work Phone: [facility] [employer] [place]82-87-8434 12:14-0400Systolic blood imlvprau052 mm[Hg]Aleksandra Sandoval MD Work Phone: [facility] CenterComment on above:Pt. states they had a difficult drive to this office.12-31-2024 13:52-0400Body .2 cmAleksandra Sandoval MD Work Phone: [facility]06-10-2025 13:52-0400Body mass index (BMI) [Ratio]49.18 kg/l7XnfjlvbAleksandra Sandoval MD Work Phone: [facility]06-10-2025 13:52-0400Body .43 kgAleksandra Sandoval MD Work Phone: [facility] [employer] Zchpjp32-36-9581 10:57-0400Body yplxdz604.2 cmLoc PIKE Work Phone: [facility]04-30-2025 10:57-0400Body mass index (BMI) [Ratio]49.18 kg/e1RtipocsmLoc PIKE Work Phone: [facility] [employer] Ezfjcl30-92-8553 10:57-0400Body yluyzv624.43 kgLoc PIKE Work Phone: [facility] [employer] Cyccmr16-89-7067 10:57-0400Diastolic blood bagolkbm17 mm[Hg]Loc PIKE Work Phone: [facility] [employer] Foaiiy52-50-3335 10:57-0400Heart rate 69 /minLoc PIKE Work Phone: [facility]04-30-2025 10:57-0400Systolic blood ourfvkjq556 mm[Hg]Loc PIKE Work Phone: [facility]01-24-2025 13:51-0500Body eofpsh571.18 cmCincinnati Va Medical Center01-24-2025 13:51-0500Body mass index (BMI) [Ratio]48.9 kg/g5XmpglchulCincinnati Va Medical Center01-24-2025 13:51-0500Body .52 kgCincinnati Va Medical Center01-24-2025 13:51-0500Diastolic blood njyharwz36 mm[Hg][facility] 08-16-2024 13:51-0500Heart rate89 /minCincinnati Va Medical Center 08-16-2024 13:51-0500Systolic blood dobbydmy585 mm[Hg][facility]12-31-2024 11:08-0500Diastolic blood gczrfuet61 mm[Hg][facility] [address] [place], [place] 0133012-31-2024 11:08-0500Systolic blood krvfrjli733 mm[Hg][facility] [address] [place], [place] [address]112-31-2024 11:00-0500Body .7 [degF][address]12-31-2024 11:00-0500Heart rate70 /minMetro [address] [place], [place] 0133012-31-2024 11:00-0500Respiratory rate20 /minMetro [address] [place], [place] 0133012-31-2024 11:00-6253HhU4% (BldA) [Mass fraction]96 %[address]12-31-2024 10:45-0500Body reibqq975.[address]12-31-2024 10:45-0500Body mass index (BMI) [Ratio]49.31 kg/o5Fimfo[address]12-31-2024 10:45-0500Body uvercx859.[address]11-07-2024 14:26-0500Body mass index (BMI) [Ratio]48.6 kg/m2 [facility]11-07-2024 14:26-0500Body yomfqg063.06 kg [facility]11-07-2024 14:26-0500Diastolic blood ruycdkrh17 mm[Hg][facility]11-07-2024 14:26-0500Heart rate99 /min [facility]11-07-2024 14:26-0500Systolic blood shwsavmd543 mm[Hg][facility]11-07-2024 09:12-0500Body sqeege553.18 cmCincinnati Va Medical Center11-03-2024 13:00-0500Heart rate82 /Emiliano Iqbal MD Work Phone: [phone] [place], [place] 2497011-03-2024 13:00-0500 Respiratory rate18 /Emiliano Iqbal MD Work Phone: [phone] [place], [place] 2497011-03-2024 13:00-3488JnS2% (BldA) [Mass fraction]96 %Tabby Iqbal MD Work Phone: [phone]11-03-2024 11:15-0500Diastolic blood yztwwwtx79 mm[Hg]Tabby Iqbal MD Work Phone: [phone]11-03-2024 11:15-0500Systolic blood mm[Hg]Tabby Iqbal MD Work Phone: [phone]11-03-2024 07:45-0500Body lpjpfielarm45.9 [degF]Tabby Iqbal MD Work Phone: [phone]11-03-2024 05:00-0500Body mass index (BMI) [Ratio]49.24 kg/a8NctgoTabby Iqbal MD Work Phone: [phone]11-03-2024 05:00-0500Body rwpull983.9 kgTabby Iqbal MD Work Phone: [phone] [place], [place] 2497010-29-2024 18:06-0400Body qrzofq529.7 cmPnora Iqbal MD Work Phone: [phone]10-24-2024 10:44-0400Body rmotpv262.18 cmCincinnati Va Medical Center10-24-2024 10:35-0400Body mass index (BMI) [Ratio]51 kg/u8CcjwlpumsCincinnati Va Medical Center10-24-2024 10:35-0400Body htsypo132.87 kgCincinnati Va Medical Center10-24-2024 10:35-0400Diastolic blood ffpnydqb42 mm[Hg][facility] 05-16-2024 10:35-0400Heart rate77 /minCincinnati Va Medical Center 05-16-2024 10:35-0400Systolic blood dbltdtuy609 mm[Hg][facility]06-25-2024 09:18-0400Blood Pressure LocationJENNIFER ADRIAN [facility]06-25-2024 09:18-0400Diastolic blood irvlvsmv04 mm[Hg]THUY ADRIAN [facility]06-25-2024 09:18-0400Heart rate68 /minJENNIFER ADRIAN [facility]06-25-2024 09:18-0400Respiratory rate16 /minJENNIFER ADRIAN [facility]06-25-2024 09:18-0400Systolic blood cimghkbl874 mm[Hg]THUY ADRAIN [facility]04-03-2024 09:30-0400Body kpgyod948.18 cmCincinnati Va Medical Center04-03-2024 09:30-0400Body mass index (BMI) [Ratio]51.2 kg/k3LhtbwiqzsCincinnati Va Medical Center04-03-2024 09:30-0400Body wgguqr939.32 kgCincinnati Va Medical Center04-03-2024 09:30-0400Diastolic blood ylnwnykv66 mm[Hg] [facility]04-03-2024 09:30-0400Heart rate95 /minCincinnati Va Medical Center04-03-2024 09:30-0230MjE8% (BldA) [Mass fraction]96 % [facility]04-03-2024 09:30-0400Systolic blood tnvrwzit765 mm[Hg][facility]03-23-2024 12:49-0400Body cbuxyy936.18 cm [facility]03-23-2024 12:49-0400Body mass index (BMI) [Ratio]52 kg/v3OhvfamjmjCincinnati Va [facility]03-23-2024 12:49-0400Body zobezwgjswy91.4 [degF][facility]03-23-2024 12:49-0400Body fyqurz848.59 kgCincinnati [facility]03-23-2024 12:49-0400Heart rate 64 /[facility]03-23-2024 12:49-0400Respiratory rate18 /[facility]03-23-2024 12:49-3002IjF1% (BldA) [Mass fraction]97 %[facility] Encounters Encounter DateEncounter TypeCare ProviderFacilityStart: 06-02-2025 End: 61-13-7588xkeqgddnllWgiozkmFouzia Mendoza MDFacility:PM Sacha Start: 05-20-2025 End: 26-86-0249owbqlxkuwgQodpck E Braun MD Work Phone: -[facility] Centertart: 05-20-2025 End: 39-56-5092Rmhrzbb encounter procedureOlman Shoemaker MD-[facility] Work Phone: Start: 04-08-2025 End: 69-01-6794Vzjlylsi ReferredOUTREQUINCY VALLEY [facility] Outreach Work Phone: Start: 04-08-2025 End: 08-95-5055bgdlwkrpmnAufnid E Braun MD Work Phone: [facility] Work Phone: Start: 02-05-2025 End: 05-00-4605Goczaw outpatient visit 15 minutesAleksandra Sandoval MD Work Phone: [facility] Genito-Urinary SurgeonsComment on above:Mineral metabolism disorder (Primary Dx)Start: 02-05-2025 End: 00-20-7857ukdcwyifrdTJTNOJQ G RASHIDBarre City HospitalEsthela [facility] Ambulatory PPGStart: 12-31-2024 End: 88-56-3826Rqasdwrkl encounterAleksandra Sandoval MD Work Phone: [facility] Genito-Urinary SurgeonsStart: 12-31-2024 End: 80-28-7112Ajfrrm outpatient visit 25 minutesAleksandra Sandoval MD Work Phone: [facility] Genito-Urinary SurgeonsComment on above:Mineral metabolism disorder (Primary Dx); Kidney stoneStart: 12-31-2024 End: 33-95-6108zxleygzfrkGPBUYHT G RASHIDUniversity Hospitals St. [facility] Ambulatory PPGStart: 12-06-2024 End: 54-47-4661kobfwnlmxlHHLAATYGNorth Texas State Hospital [facility] Wich[facility] Falls Campustart: 11-20-2024 End: 78-00-4970Cebkfgrds encounterLoc PIKE Work Phone: [facility] Physicians Genito-Urinary SurgeonsStart: 77-42-6392gufjuqshfgMGXFGZJONorth [facility] Campustart: 11-20-2024 End: 99-47-5134Xxinyb outpatient visit 25 minutesLoc PIKE Work Phone: [facility] Physicians Genito-Urinary SurgeonsComment on above:Kidney stones (Primary Dx); Pelvicaliectasis; Kidney stoneStart: 11-20-2024 End: 68-27-4117ixlpxmrrbrLTAZTFOZCleveland [facility] PPG Start: 11-11-2024 End: 83-34-3413zfxyealwtkPUCFBB [facility] HospitalStart: 09-11-2024 End: 45-85-3273Vkwzplcki encounterEsme Chen MD Work Phone: [facility] Physicians Genito-Urinary SurgeonsStart: 09-11-2024 End: 53-98-5413Etfifuhdhe and management of inpatientESME CHENSelect Medical Specialty Hospital [facility] HospitalStart: 08-22-2024 End: 27-22-7660sjsmlsoqmvEPURDO M RAGHAVANSt. Vincent Hospital HospitalStart: 08-16-2024 End: 42-85-7003xtiqxyxbrdPbutxucmzSelect [facility] Work Phone: Start: 08-16-2024 End: 00-69-6428Xsmpesr encounter procedureJosh Physician GroupOhioHealth Southeastern Medical Center Work Phone: Start: 08-09-2024 End: 15-79-2910Rjbjpzqjm encounterEsme Chen MD Work Phone: [facility] Genito-Urinary SurgeonsStart: 08-08-2024 End: 84-26-9275vlihlhhlzwVIJNUJ M RAGHAVANSelect Medical Specialty Hospital - [facility] [place] HospitalStart: 08-08-2024 End: 02-53-1223Ffkszlxjmx and management of inpatientESME Morfin AMBERSelect Medical Specialty Hospital [facility] [place] HospitalStart: 07-23-2024 End: 61-91-1764jrwvzxqijxJBXIPW M [facility]OS[facility]ITAL COLORADOLARRYSelect Medical Specialty Hospital [facility] [place] HospitalStart: 07-23-2024 End: 48-52-6321Betbqfu encounter procedureMetro Pat Provider 1[facility] On [facility] HospitalComment on above:Hypokalemia (Primary Dx); Calculus of ureterovesical junction (UVJ)Start: 06-29-2024 End: 37-55-0500Igksrkqtg encounterEsme Chen MD Work Phone: [facility] Intra OperativeStart: 06-27-2024 End: 36-61-5251huhuyzvfocGEPJTH Navjot [facility] COLORADOLARRYMercy Memorial Hospitaltart: 06-18-2024 End: 34-48-1189jugvgdejytGLVKJZ E BRAUNProMedica Tuttle HospitalStart: 06-14-2024 End: 14-47-3113Kwgxxlyif to establishmentMetro Pat Phone Call Provider 2 [facility] Hospitaltart: 06-14-2024 End: 95-52-7267Irqdragkty and management of inpatientMARCIA E BRAUNProMedica Defuniak Springs HospitalStart: 06-06-2024 End: 40-75-9497VwgwbjCecilia MITCHELL Work Phone: [facility] Infectious DiseaseComment on above:Bacteremia (Primary Dx)Start: 05-30-2024 End: 21-75-1095Bshvher encounter procedureUnc Health Physician Group-[facility] Work Phone: Start: 05-27-2024 End: 13-56-5750Vxnxooyjk encounterMicnavid Messina RMAProMedica Physicians Genito- Urinary SurgeonsStart: 70-74-8322Oez-patient / Non-visitUnc Health Physician Group-[facility] Work Phone: Start: 05-23-2024 End: 33-22-8110Qszzcjtlx encounterEsme Chen MD Work Phone: [facility] Genito-Urinary SurgeonsStart: 94-96-7131Gyrwtpj encounter [facility] Hospitaltart: 11-39-6998Yuj-patient / Non-visitUnc Health Physician Group-[facility] Work Phone: Start: 05-21-2024 End: 45-06-2137Jjraxgxxgm and management of inpatientREBECCA S [facility] HospitalStart: 90-09-3137cytvvxeddkARXLOESt. Helens Hospital and [facility] Ambulatory PPGStart: 05-21-2024 End: 55-37-5315Xtzyybrqdo and management of inpatientCHRISTOPHER EWHocking Valley Community Hospital HospitalStart: 05-21-2024 End: 04-76-7916Jnbvyfjulz and management of inpatientEmile Eli MENDOZA Work Phone: [facility] - GEN 9 ICUComment on above: Septic shock ([facility]-HCC) (Primary Dx); E coli bacteremia; NephrolithiasisStart: 44-56-2380Cil-patient / Non-visitUnc Health Physician Group-[facility] Professional [facility] Work Phone: Start: 05-16-2024 End: 66-64-1873iropluvbsjTtsscjxjwTriHealth Work Phone: Start: 05-16-2024 End: 19-12-1763Praaxdq encounter procedureUnc Health Physician GroupOhioHealth Southeastern Medical Center Work Phone: Start: 01-16-2024 End: 54-56-9388tnfzvzxdwtHVURUIRU E PERRYFacility:EU BellevueStart: 01-16-2024 End: 60-17-0083Kaabgoq encounter procedureJENNIFER E ADRIAN [facility] [place] start: 10-25-2023 End: 54-78-2491htgrgwsfysHybvcimtvSelect Medical Specialty [facility] Work Phone: Start: 10-25-2023 End: 25-13-5637Plmmvep encounter procedureUnc Health Physician Group-[facility] Work Phone: Start: 10-14-2023 End: 00-48-4794yqrqkzcnclApviqzlwySelect Medical Specialty [facility] Work Phone: Start: 10-14-2023 End: 53-00-5798Noasqal encounter procedureUnc Health Physician Group-[facility]hu Work Phone: Start: 03-14-2023 End: 28-24-8463matraovwnkBulweu Braun Other [employer] Other Start: 39-66-2751Fbpdccnoa encounterMarcia SaharaLouis Stokes Cleveland VA Medical Centertart: 03-09-2023 End: 22-39-5877jdbrcdsepyJdqont Sahara Other [facility] [employer] Other Start: 92-21-8379Faujgooto encounterMarcia SaharaLouis Stokes [facility] VA Medical Centertart: 02-16-2023 End: 79-12-8025vjmjxoruocPobybq Sahara Other [employer]Ad[employer] Other Start: 43-51-0923Boicxbxqi encounterMarcia SaharaLouis Stokes Cleveland VA Medical Centertart: 02-09-2023 End: 60-10-5479aotdmoicpkHcdwzn Sahara Other Nort [employer] Other Start: 33-05-2571Swpujnvzb encounterOlman Shen [facility] ClinicStart: 08-10-2022 End: 95-53-0151Sta Drop offJEELVIN CAMPBELL [facility] Start: 08-08-2022 End: 70-54-9413yulvyjffhyLV DOCTOR MISCFacility:W5Ohzoz: 03-10-2022 End: 69-41-5583lkthqyvtobKE OLMAN SHOEMAKERFacility:L5Mmjmw: 02-22-2021 End: 97-02-7388czmrdxxszmXUJPDGE TANGFacility:[facility] CENTERtart: 01-14-2021 End: 32-89-3713vaexnnnafyQXTIFFV TANGFacility:[facility] Procedures DateProcedureProcedure DetailPerforming ClinicianStart: 87-30-5195Ygjner-up visitFollow-upMICHELLE I MURPHYStart: 51-46-8907Nrurb metabolic panel calcium totalDiana L Perea DRAIN TILE PRESS OPERATOR-PARTNER [employer]IANCE MANAGER Work Phone: Start: 10-04-9357Ddvvoso bacterial quanttative colony count urineEsme Chen MD Work Phone: Start: 31-05-4774Drcpg dip stick/tablet rgnt auto w/o microscopyEsme Chen MD Work Phone: Start: 27-43-5032Jqvtc depression screening assessment Esme Chen MD Work Phone: Start: 00-72-1548Qfofz metabolic panel calcium total Lesvia Andrews MD Work Phone: Start: 70-60-4867Gfkglusgi serum plasma/whole blood Ralph Wei Avasilcai DRAIN TILE PRESS OPERATOR-PARTNER ALLIANCE MANAGER Work Phone: Start: 39-71-5753Xlmgg metabolic panel calcium total Lesvia Andrews MD Work Phone: Start: 18-87-5922Edujrwcuv serum plasma/whole blood Thuy J Elizabet DRAIN TILE PRESS OPERATOR-PARTNER ALLIANCE MANAGER Work Phone: Start: 05-24-2024 End: 42-15-2719Bqvokszbpobgx metabolic panelRyan Benitez MD Work Phone: Start: 82-80-4237Fgpwtpowo serum plasma/whole blood Ryan Benitez MD Work Phone: Start: 14-63-9535Cmaiygwdw serum plasma/whole blood Melissa Arana DRAIN TILE PRESS OPERATOR-PARTNER [employer]IANCE MANAGER Work Phone: Start: 95-57-5067Yiffswh bacterial blood aerobic w/id isolatesBerpritesh Boyd DRAIN TILE PRESS OPERATOR-PARTNER ALLIANCE MANAGER Work Phone: Start: 37-66-3830Njvecozdkgdmp metabolic panelCristian Petrisor Avasilcai DRAIN TILE PRESS OPERATOR-PARTNER ALLIANCE MANAGER Work Phone: Start: 05-22-2024 End: 96-17-3962Kkopsxngpnbax metabolic panelCristian Petrisor Avasilcai DRAIN TILE PRESS OPERATOR-PARTNER ALLIANCE MANAGER Work Phone: Start: 75-30-5479Cnhzmiihl serum plasma/whole blood Ruel Leblanc DRAIN TILE PRESS OPERATOR-PARTNER ALLIANCE MANAGER Work Phone: Start: 85-85-6615Arpck dip stick/tablet rgnt auto w/o microscopyMojohnny Thompson MD Work Phone: Start: 85-15-8988Fjfk nephrostomy cath prq new access rs&iRebecca S Lencho PIKE Work Phone: Start: 17-02-2691Jqmyq of lactateCristian Petrisor Avasilcai DRAIN TILE PRESS OPERATOR-PARTNER ALLIANCE MANAGER Work Phone: Start: 05-21-2024 End: 51-58-4749Tqkusfd bacterial quanttative colony count urineCristian Petrisor Avasilcai DRAIN TILE PRESS OPERATOR-PARTNER ALLIANCE MANAGER Work Phone: Start: 72-17-9941Arkoihkvih exam chest single view Dana Reynoso DRAIN TILE PRESS OPERATOR-PARTNER ALLIANCE MANAGER Work Phone: Start: 05-21-2024 End: 54-16-6626Yopz cathj/cannulj mntr/transfusion spx prqEvan Prielipp [facility] Work Phone: Start: 35-65-5492Sfs routine ecg w/least 12 lds trcg only w/o i&rCristian Petrisor Avasilcnatividad [facility] H[facility]ITALDailyDealNEW ENGL[facility] Work Phone: Start: 96-90-4266ADGI ARTERIAL LINE SETUPEvscot Estrellaelirenu [facility]OS[facility]ITALDailyDealNEW [facility]GLAND [facility] Work Phone: Start: 28-63-3283Ncpfbfpn Identification OnlyStart: 05-21-2024 End: 64-45-2598Uyrxdmvifbali metabolic panelCristian Eriberto Arriagaasilcnatividad [facility]ITALDailyDealNEW [facility] Work Phone: Start: 85-14-3695Taxhr depression screening assessment Esme Chen MD Work Phone: Start: 32-58-9282ZHTPJI REPAIR OF HERNIAJIANLIN PAGAN Start: 60-05-6433OUSSUHLY VENTRL DENTON REDUCEJIANLIN TANGStart: 02-03-2020 Extracorporeal shockwave lithotripsy of calculus of kidneyDEVINNIFER ADRIAN Start: 02-85-1086Ffhkasb of arthroplasty of left knee THUY CAMPBELL Start: 18-63-7141Thmmm replacement of right knee joint THUY CAMPBELL Comment on above:UTMCStart: 51-89-1105Zrr-surgery evaluationMarcia Shoemaker Other Start: 68-45-4094Dssquqnwb mammographyMarcia Shoemaker Other CholecystectomyJENNIFER ADRIAN HysterectomyJENNIFER ADRIAN Removal of sutureMarcia Shoemaker Other Repair of right inguinal herniaJENNIFER ADRIAN Comment on above:unknown year Plan of Treatment DateCare ActivityDetailAuthorStart: 02-16-2026 End: 33-59-8317Rumncvt encounter hxqrfcynd36/27/2026 1:00 PM EDT Office Visit [facility] [address] [place] [address] A [facility] [place] [address] Aleksandra Sandoval MD [facility] [place] [id number] [facility]-Urinary SurgeonsStart: 90-46-0328Vusgm BMI ScreeningAdult BMI Screening [facility] SystemStart: 62-45-7394Fsugqst ScreeningTobacco Screening [facility] SystemStart: 02-05-2026 End: 19-69-4804EF Abdomen APX-ray abdomen ap 1 view Imaging Routine Mineral metabolism disorder Expected: 02/05/2026 (Approximate), Expires: 02/05/2027 [facility] Work Phone: Comment on above:Expected: 02/05/2026 (Approximate), Expires: 02/05/2027Start: 55-84-4868Iteto BMI ScreeningAdult BMI Screening [facility] SystemStart: 07-51-6584Khyjkzn ScreeningTobacco Screening [facility] SystemStart: 70-10-9933Ufmza BMI ScreeningAdult BMI Screening [facility] SystemStart: 80-44-4394Anpkydx ScreeningTobacco Screening [facility] SystemStart: 67-14-8612Hbvym BMI ScreeningAdult BMI Screening [facility]a [facility] SystemStart: 83-16-7813Mptzlpj ScreeningTobacco Screening [facility] SystemStart: 70-10-7903Griwz BMI ScreeningAdult BMI Screening [facility] SystemStart: 08-70-7693Yxdjd BMI ScreeningAdult BMI Screening [facility] SystemStart: 89-29-0988Dcuutrm ScreeningTobacco Screening [facility] SystemStart: 68-35-1513Vjokl BMI ScreeningAdult BMI Screening [facility] Morgantontart: 54-99-0540Inotkii ScreeningTobacco Screening [facility] SystemStart: 17-63-3602Hxqyglndhq ScreeningDepression Screening [facility] Morgantontart: 20-65-9094Loumb BMI ScreeningAdult BMI Screening [facility] Morgantontart: 83-13-3629Wmpem BMI ScreeningAdult BMI Screening [facility] SystemStart: 08-92-0378Yusnitmgxm ScreeningDepression Screening [facility] SystemStart: 04-46-0120Jehysqc ScreeningTobacco Screening [facility] Morgantontart: 08-55-9063Xtaohqnir vaccinationInfluenza Vaccine [facility] Morgantontart: 11-20-2024 End: 27-68-9945KP Kidney and Ureter and Urinary bladder 3D post processing WO and W contrast IVCT urogram Imaging Routine Kidney stones Pelvicaliectasis Expected: 11/20/2024, Expires: 11/20/2025[employer] Work Phone: Comment on above:Expected: 11/20/2024, Expires: 11/20/2025Start: 11-10-2024 End: 27-25-1117WC RetroperitoneumUltrasound retroperitoneal complete Imaging Routine Calculus of ureterovesical junction (UVJ) Expected: 11/10/2024 (Approximate), Expires: 12/09/2024[facility] Work Phone: Comment on above:Expected: 11/10/2024 (Approximate), Expires: 12/09/2024Start: 09-11-2024 End: 56-25-2483IPQZKFHZHJ REMOVAL STENTCYSTOSCOPY REMOVAL STENT Calculus of ureterovesical junction (UVJ) 09/11/2024 7:34 AM MobileTagBarre City HospitalNewsbound Start: 08-09-2024 End: 24-47-1790ET Abdomen and Pelvis WO contrastCT abdomen and pelvis without contrast Imaging Routine Flank pain Expected: 08/09/2024, Expires: 11/07/2024 [employer] Work Phone: Comment on above:Expected: 08/09/2024, Expires: 11/07/2024Start: 07-31-2024 End: 63-17-3928Tbmllzgwk to same day surgery eqluft0807/31/2024 3:30 PM EST - 07/31/2024 5:15 PM EST Surgery [facility] Surgery [address] [place] [phone] Esme Chen MD [address] [place] [address] LASER HOLMIUM URETEROSCOPY RENAL STONES < OR=1CM [59873 (CPT )][facility] CenterComment on above:LASER HOLMIUM URETEROSCOPY RENAL STONES < OR=1CM [10691 (CPT )]Start: 07-31-2024 End: 28-34-0835Nxdvp w/insert ureteral stentCYSTOSCOPY EXCHANGE STENT URETER Calculus of ureterovesical junction (UVJ) 07/31/2024 3:30 PM ESTTOLED SURGERY Start: 07-31-2024 End: 50-74-4206Ntypd w/ureteroscopy w/lithotripsyLASER HOLMIUM URETEROSCOPY RENAL STONES < OR=1CM Calculus of ureterovesical junction (UVJ) 07/31/2024 3:30 PM [facility] SURGERYStart: 31-81-6781Sgqubiuewz hospital visit by physician 07/31/2024 3:30 PM EST Hospital Encounter [facility] - Surgery [address] [place] [phone] Esme Chen MD [address] [place] [address] [facility] SurgeryStart: 06-28-2024 End: 60-66-2924Iqrjwssfe to same day surgery bnrirc0706/28/2024 1:00 PM EST - 06/28/2024 3:00 PM EST Surgery [facility] Surgery [address] [place] [phone] Esme Chen MD [address] [place] [phone] LASER HOLMIUM URETEROSCOPY RENAL STONES < OR=1CM [91548 (CPT )][facility] CenterComment on above:LASER HOLMIUM URETEROSCOPY RENAL STONES < OR=1CM [12304 (CPT )]Start: 06-28-2024 End: 47-85-4839Jptxb w/insert ureteral stentCYSTOSCOPY INSERTION STENT URETER Septic shock (CMS-HCC) Calculus of ureterovesical junction (UVJ) 06/28/2024 1:00 PM [facility] SURGERYStart: 06-28-2024 End: 52-95-5230Vlxdz w/ureteroscopy w/lithotripsyLASER HOLMIUM URETEROSCOPY RENAL STONES < OR=1CM Septic shock (CMS-HCC) Calculus of ureterovesical junction (UVJ) 06/28/2024 1:00 PM [facility] SURGERYStart: 45-60-9893Bilknabsoo hospital visit by ljvqzeoyv18/06/2024 1:00 PM EST Hospital Encounter [facility] Surgery [address] [place] [phone] Esme Chen MD [address] [place] [phone] [facility] SurgeryStart: 06-27-2024 Evaluation and management of ixemmlluu63/05/2024 12:01 AM EST Hospital Encounter Esme Chen MD [facility] [place] [phone] [facility] SystemStart: 06-14-2024 End: 85-95-7315Fmppfofyj to shzfrtleutcpa89/22/2024 11:30 AM EST Support Visit [facility] On [address] [phone] [facility] Start: 06-06-2024 End: 01-76-1775POPL Line RemovalPICC Line Removal Procedures Routine Bacteremia Expected: 06/06/2024 (Approximate), Expires: 07/06/2024[facility] Work Phone: Comment on above:Expected: 06/06/2024 (Approximate), Expires: 07/06/2024Start: 53-42-6138Bxxdbt ID + SusceptAerobe ID + Suscept [facility] Hospitaltart: 87-84-4145Esxcyvmw Identification Only Anaerobe Identification OnlyAshtabula General Hospitaltart: 03-24-2024 COVID-19 Vaccine ( season)COVID-19 Vaccine ( season) [facility] [employer] SystemStart: 04-43-6332Ldjzegsuk vaccinationInfluenza Vaccine [facility] SystemStart: 54-36-9985Oofs Risk ScreeningFall Risk Screening [facility] [employer]tart: 07-68-5152NBrQ,Tdap and Td Vaccines (1 - Tdap) DTaP,Tdap and Td Vaccines (1 - Tdap)[facility] [employer] Corporationtart: 12-11-1973 Adult BMI Follow Up PlanAdult BMI Follow Up PlanTrumbull Regional Medical CenterBacteria identified in Blood by Aerobe cultureTrumbull Regional Medical CenterBakentucky river medical center metabolic 2000 panel - Serum or PlasmaBasic Metabolic Panel Lab Routine Lab max of 3 days, Daily, for lab use only until discontinued starting 05/25/2024, 2 completed [facility] Work Phone: Comment on above:Lab max of 3 days, Daily, for lab use only until discontinued starting 05/25/2024, 2 completedCBC W Auto Differential panel - BloodCBC auto differential Lab Routine Lab max of 3 days, Daily, for lab use only until discontinued starting 05/25/2024, 2 completedHarrison Community Hospital SystemComment on above:Lab max of 3 days, Daily, for lab use only until discontinued starting 05/25/2024, 2 completedComprehenve metabolic 2000 panel - Serum or PlasmaCincinnati Va Medical CenterComprehensive metabolic 2000 panel - Serum or PlasmaFirelands Regional Medical Center End: 49-54-3640Fwqwbzazux includes GFR, serumCreatinine includes GFR, serum Lab STAT STAT for 1 Occurrences starting 05/21/2024 until 05/21/2024Firelands [facility] South CampusComment on above:STAT for 1 Occurrences starting 05/21/2024 until 05/21/2024 End: 84-55-2135Chmzoghjfu includes GFR, serumCreatinine includes GFR, serum Lab Routine E coli bacteremia weekly for 2 Occurrences starting 05/25/2024 until 05/25/2025[facility] SystemComment on above:weekly for 2 Occurrences starting 05/25/2024 until 05/25/2025 End: 22-04-0537Kykplwg magnesiumIonized magnesium Lab Routine Once for 1 Occurrences starting 05/26/2024 until 05/26/2024Firelands [facility] Medical Center South CampusComment on above:Once for 1 Occurrences starting 05/26/2024 until 05/26/2024 End: 01-84-9236Ykpyvbu [Moles/volume] in Serum or PlasmaLactate Lab Routine Once for 1 Occurrences starting 05/21/2024 until 05/21/2024Fire[facility] Comment on above:Once for 1 Occurrences starting 05/21/2024 until 05/21/2024 End: 63-91-5573Tatptwz [Moles/volume] in Serum or PlasmaLactate Lab Routine Once for 1 Occurrences starting 05/22/2024 until 05/22/2024[facility] Work Phone: Comment on above:Once for 1 Occurrences starting 05/22/2024 until 05/22/2024 End: 95-18-6890Yjexpgpmmb [#/volume] in BloodWBC Lab Routine E coli bacteremia weekly for 2 Occurrences starting 05/25/2024 until 05/25/2025[facility] Work Phone: Comment on above:weekly for 2 Occurrences starting 05/25/2024 until 05/25/2025 End: 54-75-2673Ioconykzh 24 HourLitholink 24 Hour Lab Routine Kidney stone 1 Occurrences starting 12/31/2024 until 12/31/2025[facility] Work Phone: Comment on above:1 Occurrences starting 12/31/2024 until 12/31/2025 End: 66-84-8581Ghoii panelLiver panel Lab Routine E coli bacteremia weekly for 2 Occurrences starting 05/25/2024 until 05/25/2025[facility] [employer] SystemComment on above:weekly for 2 Occurrences starting 05/25/2024 until 05/25/2025Magnesium [Mass/volume] in Serum or PlasmaMagnesium Lab Routine Lab max of 3 days, Daily, for lab use only until discontinued starting 05/25/2024, 2 completedProNorthport Medical Center Health SystemComment on above:Lab max of 3 days, Daily, for lab use only until discontinued starting 05/25/2024, 2 completedMG Breast - bilateral Screening [facility] Va Medical CenterOxygen Therapy - Maintain SpO2: 90%; *RN STAFF Guidelines for O2: Yes; Document: \[email or web address]\epi c\EPIC_Reference\Orders\Respiratory Care Guidelines\CPG Oxygen 2022.pdfOxygen Therapy - Maintain SpO2: 90%; *RN STAFF Guidelines for O2: Yes; Document: \[email or web address]\epic\EPIC_Reference\Orders\Respiratory Care Guidelines\CPG Oxygen 2022.pdf Respiratory Care Routine AsNeeded until discontinued starting 05/21/2024roMedmGaadi Work Phone: Comment on above:As Needed until discontinued starting 05/21/2024 End: 78-72-0746Vhljkrsiw [#/volume] in BloodPlatelet count Lab Routine E coli bacteremia weekly for 2 Occurrences starting 05/25/2024 until 05/25/2025 [facility] [employer] SystemComment on above:weekly for 2 Occurrences starting 05/25/2024 until 05/25/2025 End: 43-04-1759Mqkfhvib I, High Sensitivity 3 HourTroponin I, High Sensitivity 3 Hour Lab Routine Once for 1 Occurrences starting 05/21/2024 until 05/21/2024 [facility] [employer] SystemComment on above:Once for 1 Occurrences starting 05/21/2024 until 05/21/2024XR Lumbar spine 2 or 3 [facility] Immunizations Immunization DateImmunizationNotesCare CbcnpgpiIzbbcsus09-82-2351veqgfu vaccine recombinantJENNIFER ADRIAN [facility]07-18-2023zoster vaccine recombinantJENNIFER ADRIAN [facility]11-09-2021SARS-CoV-2 (COVID-19) mRNA BNT-162b2 vaxJENNIFER ADRIAN [facility] WestComment on above:Result Comment: 2022-08-10: [id number]-InI-0 (COVID-19) mRNA BNT-162b2 vaxJENNIFER ADRIAN [facility]02-12-2021SARS-CoV-2 (COVID-19) mRNA BNT-162b2 vaxJENNIFER ADRIAN [facility] Payers DatePayer CategoryPayerPolicy [id number] Unknown2024Medicare [id number] [id number]-tiw [id number] 2..840.1.027924.3.57[id number] 2.840.1.173632.3.57[id number] 2.840.1.832366.3.57[id number] 2.840.1.033449.3.57[id number] 2.840.1.411336.3.57[id number] 2.0.1.675231.3.57[id number] 2.0.1.058438.3.57[id number] 2.0.1.443596.3.57[id number] 2.0.1.441354.3.57[id number] 2.0.1.189365.3.57[id number] 2.0.1.299223.3.57[id number] 2..1.869083.3.57[id number] 2.0.1.783201.3.57[id number] 2.840.1.210266.3.57[id number] 2.840.1.328966.3.57[id number] 2.840.1.130109.3.57[id number] 2.16.840.1.643795.3.57[id number] 2.16.840.1.117283.3.57[id number] 2.16.840.1.516259.3.57[id number] 2.16.840.1.621766.3.579.2.5[id number] 2..840.1.956321.3.579.2.[id number] 2..840.1.574486.3.579.2.9[id number] 2.840.1.603753.3.57[id number] 2..840.1.59[id number] [id number]-30f5-[id number]-[id number] 2.840.1.310003.3.579.2.593 [id number] 2.840.1.367422.3.579.2.531 Social History DateTypeDetailFacilityStart: 08-10-2022 End: 59-20-9744Gncbcac smoking statusEx-smoker (finding)[facility] Centertart: 09-03-2020 End: 89-68-4129Apl [facility] At [facility]: 12-64-6292Akb Assigned At [facility] SouthTobacco smoking statusNeverExec[facility] of [facility] End: 18-40-1400Ypfgjkb of tobacco useCurrent smokerTrumbull Regional Medical Center End: 76-02-7838Rbjkowa of tobacco useCigarette SmokerTrumbull Regional Medical Center History of tobacco usePassive smokerFormerly [facility] Hospital, later [facility]art: 06-14-2024 End: 93-91-6573Lotyovj use and exposureSmokeless tobacco non-userFormerly [facility], later [facility] Morgantontart: 07-23-2024 End: 06-87-5997Erbapzdxy beverage intakeLifetime non-drinker (finding)[facility] Morgantontart: 09-03-2020 End: 28-27-6824Kjrebee of Social functionTrumbull Regional Medical CenterHas the [employer], gas, oil, or water company threatened to shut off services in your home in past Unity HospitalHow often to you have a drink containing alcohol?NeverFormerly [facility] Hospital, later [facility] Morgantontart: 93-43-1676Ogtzwsd Comment 0.5ppd smoked on & off for about 20 yearsFormerly [facility], later [facility]organtontart: 24-90-3406Nwe assigned at birthNot on fileFormerly [facility], later [facility] Morgantontart: 05-08-2018 End: 48-66-8232ZvbDjyvek (finding)[facility]ontart: 05-21-2024 Tobacco smoking status NHISNever smoked tobaccoFormerly [facility] Hospital, later [facility] Morgantontart: 04-41-8125Kmdmhhv Pvmukqn0744-6638 smoked on & off for about 20 yearsTrumbull Regional Medical Center Medical Equipment Procedure CodeEquipment CodeEquipment Original TextEquipment IdentifierDates Stent Uret 6fr 26cm 2 Pgtl Crv Rdpq Pstnr [facility] [id number]: 92-94-3186Hmrlwxq on above:Description: NO STRINGSStent Uret 6fr 26cm 2 Pgtl Crv Rdpq Pstnr [facility] [id number]: 88-68-9058Vyohy Uret 6fr 26cm 2 Pgtl Crv Rdpq Pstnr [facility] [id number]_krdQzfhc: 09-11-2024 Goals DatePatient GoalDesired Activity/StatePersonal health goalComment on above: Evaluation of progress towards goal: safe transition home with home care and support. Functional Status TevoMpcjsyywlsZbycbfIzjvhlcy78-48-7312Gkwbwegpnf StatusN/AExecutive [facility] of [facility] Mental Status DateAssessmentResultBristol-Myers Squib[facility] Clinical Notes 01-16-2024 to 04-08-2025 Note Date & DzfnBaxxJqhcmdzr50-79-6030 [facility]iology [facility] Main [place] [id number] Ultrasound Report Signed Patient: Sharri Murillo MR#: [id number] 80 : 1955 Acct:[id number] Age/Sex: 69 / F ADM Date: 5 Loc: RH Room: Type: REG REF Attending Dr: Bharathi Community Ordering Provider: STEFAN,OUTREACH Date of Service: 04/08/25 US/US community outreach aorta: SCREENING Copies to: COMMUNITY,OUTREACH ~ Aorta screening ultrasound HISTORY: Screening exam Normal caliber abdominal aorta. US/US community outreach aorta IMPRESSION: No abdominal aortic aneurysm. Impression dictated by: Milton Yap M.D. 04/08/2025 3:29 PM Dictation Location: [place] [address] Tech: Lamar Renowyatt Transcribed By: [facility] 04/08/25 1529 Dictated By: Milton Yap DO 04/08/25 1529 Signed By: 04/08/25 [facility]9 [facility]09-16-2025 Radiology Diagnostic study note [facility] Main [place] [id number] Ultrasound Report Signed Patient: Sharri Murillo MR#: [id number] 80 : 1955 Acct:[id number] Age/Sex: 69 / F ADM Date: 5 [...] Wave forms by plethysmography are normal. US/US [facility] KATY IMPRESSION: NO HEMODYNAMICALLY SIGNIFICANT PERIPHERAL VASCULAR OCCLUSIVE DISEASE AT REST IN EITHER LOWER EXTREMITY. Impression dictated by: Jovany Heart MD,FACS,FSVS 04/08/2025 2:09 PM Dictation Location: [facility]-DOC-04 Tech: Shira Vilchis Transcribed By: PWS 04/08/251408 Dictated By: Jovany Heart MD 04/08/251407 Signed By: 04/08/251408 [facility] Work Phone: 1(939) 783-123709-16-2025 Radiology Diagnostic study [facility] [place] [address] Ultrasound Report Signed Patient: Sharri Murillo MR#: [id number] 80 : 1955 Acct:[id number] Age/Sex: 69 / F ADM Date: 5 Loc: Room: Type: [facility] Attending Dr: Bharathi [facility] Ordering Provider: BHARATHI AVILES Date of Service: 04/08/25 US/US critical access hospital outreach carotid: SCREENING Copies to: [facility] ~ CAROTID DUPLEX INDICATION: [facility] carotid screening program. PROCEDURE: Color-flow duplex scanning [...] Heart MD,FACS,FSVS 04/08/2025 2:08 PM Dictation Location: [place] [address] Tech: Lamar Kathleen Transcribed By: KAMILAH 04/08/251407 Dictated By: Jovany Heart MD 04/08/251407 Signed By: 04/08/25 140 [facility] Work Phone: 1(425) 844-848107-16-2025 History of Present illness Narrative* Aleksandra Sandoval MD - 02/05/2025 12:00 PM EDT Images from the original note were not included. [address] [place] [address] [address] [facility] [address] Patient: Sharri Murillo Date of : 1955 Encounter Date: 02/05/2025 History of Present Illness: The patient is a 69 y.o. female, an established patient, and is here for Chief Complaint Patient presents with Follow-up . Mineral metabolism workup. Twenty-four urine litho link. Reviewed. Strategies discussed with the patient. Rtck-dxn-vlortyu supplement also discussed. Subsequent imaging discussed as [...] past Migraines 07/23/2024 6x year Septic shock ([facility]) 05/21/2024 Visual impairment glasses Past Surgical History: Procedure Laterality Date CYSTOSCOPY EXCHANGE STENT URETER Left 08/08/2024 Performed by Esme Chen MD at [facility] CYSTOSCOPY INSERTION STENT URETER Left 06/28/2024 Performed by Esme Chen MD at [facility] CYSTOSCOPY REMOVAL STENT Left 09/11/2024 Performed by Esme Chen MD at [facility] CYSTOSCOPY RETROGRADE PYELOGRAM Left 08/08/2024 Performed by Esme Chen MD at [facility] CYSTOSCOPY RETROGRADE PYELOGRAM Left 06/28/2024 Performed by Esme Chen MD at [facility] HYSTERECTOMY age 42's INGUINAL HERNIA REPAIR x2 pt unsure of date JOINT REPLACEMENT Bilateral pt unsure of when KIDNEY STONE SURGERY 2017 I had kidney stones blasted LASER HOLMIUM URETEROSCOPY RENAL STONES < OR=1CM; STONE BASKET EXTRACTION Left 06/28/2024 Performed by Esme Chen MD at [facility] LASER HOLMIUM URETEROSCOPY WITH VACUUM ASPIRATION/STONE BASKETING Left 08/08/2024 Performed by Esme Chen MD at [facility] REMOVAL TUBE NEPHROSTOMY Left 06/28/2024 Performed by Esme Chen MD at [facility] TONSILLECTOMY as a child UMBILICAL HERNIA REPAIR pt unsure of when URETERAL DILATION Left 06/28/2024 Performed by Esme Chen MD at [facility] Family History Problem Relation Age of Onset [...] damage causing pain and loss of function. cblwykki-jwjn-XN-calcium &mins (THERAGRAN-M) 9 mg iron-400 mcg tablet [...] you for your understanding. documented in this encounterTrumbull Regional Medical Center06-10-2025 Miscellaneous Notes* Telephone Encounter - Kaylen Kendall - 12/31/2024 2:36 PM EDT I faxed litho link order successfully to [phone]. documented in this encounterTrumbull Regional Medical Center06-10-2025 Telephone encounter Note* Telephone Encounter - Kaylen Kendall - 12/31/2024 2:36 PM EDT I faxed litho link order successfully to [phone]. [facility]06-10-2025 History of Present illness Narrative* Aleksandra Sandoval MD - 12/31/2024 1:45 PM EDT Images from the original note were not included. [address] [place] [address] A [facility] B [facility] [address] Patient: Sharri Murillo Date of : 1955 [...] past Migraines 07/23/2024 6x year Septic shock ([facility]) 05/21/2024 Visual impairment glasses Past Surgical History: Procedure Laterality Date CYSTOSCOPY EXCHANGE STENT URETER Left 08/08/2024 Performed by Esme Chen MD at [facility] CYSTOSCOPY INSERTION STENT URETER Left 06/28/2024 Performed by Esme Chen MD at [facility] CYSTOSCOPY REMOVAL STENT Left 09/11/2024 Performed by Esme Chen MD at [facility] CYSTOSCOPY RETROGRADE PYELOGRAM Left 08/08/2024 Performed by Esme Chen MD at [facility] CYSTOSCOPY RETROGRADE PYELOGRAM Left 06/28/2024 Performed by Esme Chen MD at [facility] HYSTERECTOMY age 42's INGUINAL HERNIA REPAIR x2 pt unsure of date JOINT REPLACEMENT Bilateral pt unsure of when KIDNEY STONE SURGERY 2017 I had kidney stones blasted LASER HOLMIUM URETEROSCOPY RENAL STONES < OR=1CM; STONE BASKET EXTRACTION Left 06/28/2024 Performed by Esme Chen MD at [facility] LASER HOLMIUM URETEROSCOPY WITH VACUUM ASPIRATION/STONE BASKETING Left 08/08/2024 Performed by Esme Chen MD at [facility] REMOVAL TUBE NEPHROSTOMY Left 06/28/2024 Performed by Esme Chen MD at [facility] TONSILLECTOMY as a child UMBILICAL HERNIA REPAIR pt unsure of when URETERAL DILATION Left 06/28/2024 Performed by Esme Chen MD at [facility] Family History Problem Relation Age of [...] damage causing pain and loss of function. jylniqsi-qwfw-JI-calcium &mins (THERAGRAN-M) 9 mg iron-400 mcg tablet [...] you for your understanding. documented in this encounterTrumbull Regional Medical Center04-30-2025 Evaluation + Plan note* Assessment & Plan Note - SHAHZAD Coleman - 11/20/2024 1:06 PM EDT Associated Problem(s): Kidney stone Dr. Chen performed her procedures but she would like to see a doctor that goes to [place]. [facility]04-30-2025 Miscellaneous Notes* Assessment & Plan Note - SHAHZAD Colmean - 11/20/2024 1:06 PM EDTAssociated Problem(s): Kidney stone Dr. Chen performed her procedures but she would like to see a doctor that goes to [place]. documented in this encounterTrumbull Regional Medical Center04-30-2025 Miscellaneous Notes* Telephone Encounter - Kaylen Kendall - 11/20/2024 11:31 AM EDT Offday appointment (at least 15 min) with Dr. Sandoval or Dr. Silverman for the results CT Urogram. Call to schedule after ct scheduled documented in this encounterTrumbull Regional Medical Center04-30-2025 Telephone encounter Note* Telephone Encounter - Kaylen Kendall - 11/20/2024 11:31 AM EDT Offday appointment (at least 15 min) with Dr. Sandoval or Dr. Silverman for the results CT Urogram. Call to schedule after ct scheduled [facility]04-30-2025 History of Present illness Narrative* SHAHZAD Coleman - 11/20/2024 11:00 AM EDT Images from the original note were not included. [address] [place] [address] A [facility] B [facility] [address] Patient: Sharri Murillo Date of : 1955 [...] having any pain. She was following with [facility] and was last seen in December 2023 Summary of old records: Notes from Dr. Chen 05/21/24: The patient is a 68 y.o. female who presented to [facility] with history of recent UTI on 05/16 [...] ureter or renal pelvis. Pt transferred to [facility] as she has required Vasopressor for hypotension. [...] past Migraines 07/23/2024 6x year Septic shock ([facility]) 05/21/2024 Visual impairment glasses Past Surgical History: Procedure Laterality Date CYSTOSCOPY EXCHANGE STENT URETER Left 08/08/2024 Performed by Esme Chen MD at [facility] CYSTOSCOPY INSERTION STENT URETER Left 06/28/2024 Performed by Esme Chen MD at [facility] CYSTOSCOPY REMOVAL STENT Left 09/11/2024 Performed by Esme Chen MD at [facility] CYSTOSCOPY RETROGRADE PYELOGRAM Left 08/08/2024 Performed by Esme Chen MD at [facility] CYSTOSCOPY RETROGRADE PYELOGRAM Left 06/28/2024 Performed by Esme Chen MD at [facility] HYSTERECTOMY age 42's INGUINAL HERNIA REPAIR x2 pt unsure of date JOINT REPLACEMENT Bilateral pt unsure of when KIDNEY STONE SURGERY 2017 I had kidney stones blasted LASER HOLMIUM URETEROSCOPY RENAL STONES < OR=1CM; STONE BASKET EXTRACTION Left 06/28/2024 Performed by Esme Chen MD at [facility] LASER HOLMIUM URETEROSCOPY WITH VACUUM ASPIRATION/STONE BASKETING Left 08/08/2024 Performed by Esme Chen MD at [facility] REMOVAL TUBE NEPHROSTOMY Left 06/28/2024 Performed by Esme Chen MD at [facility] TONSILLECTOMY as a child UMBILICAL HERNIA REPAIR pt unsure of when URETERAL DILATION Left 06/28/2024 Performed by Esme Chen MD at [facility] Family History Problem Relation Age of Onset [...] damage causing pain and loss of function. diarepwm-rtql-ES-calcium &mins (THERAGRAN-M) 9 mg iron-400 mcg tablet [...] to see a doctor that goes to [place]. Follow-up: CT Urogram with Cr prior. Offday [...] SHAHZAD Coleman 11/20/[address] [facility]02-19-2025 Miscellaneous Notes* Telephone Encounter - Esme Chen MD - 09/11/2024 7:47 AM EST Patient had left ureteral stent removal today after previous ureteroscopy. Please have her follow up with SHAHZAD Landaverde in 2 months with a renal ultrasound. Thanks. documented in this [facility]02-19-2025 Telephone encounter Note* Telephone Encounter - Esme Chen MD - 09/11/2024 7:47 AM EST Patient had left ureteral stent removal today after previous ureteroscopy. Please have her follow up with SHAHZAD Landaverde in 2 months with a renal ultrasound. Thanks. [facility] [employer] [id number] Miscellaneous Notes* Telephone Encounter - Esme Chen MD - 08/09/2024 4:46 PM EST Patient had left ureteroscopy with stone treatment on 08/08. She needs to get a CT which I ordered scheduled at [facility] in the near future and based on these results, I will schedule her for3rd stage ureteroscopy or stent removal. Thanks. * Telephone Encounter - Ina Thompson CMA - 08/09/2024 4:46 PM EST [address] you Dr. Chen. [facility] for the pt to call central scheduling to get that CT scheduled. Also sent the pt a [employer] message. documented in this encounterTrumbull Regional Medical Center01-17-2025 Telephone encounter Note* Telephone Encounter - Esme Chen MD - 08/09/2024 4:46 PM EST Patient had left ureteroscopy with stone treatment on 08/08. She needs to get a CT which I ordered scheduled at [facility] in the near future and based on these results, I will schedule her for3rd stage ureteroscopy or stent removal. Thanks. [facility]01-17-2025 Telephone encounter Note* Telephone Encounter - Ina Thompson CMA - 08/09/2024 4:[address] Chen. [facility] for the pt to call central scheduling to get that CT scheduled. Also sent the pt a [employer] message. [facility]12-31-2024 History and physical note* Tanya Perea, CARO-PARTNER ALLIANCE MANAGER - 07/23/2024 10:30 AM EST PRE-OPERATIVE HISTORY [...] was seen in the emergency room at [facility]. She was then transferred to [place]. In a review of the record, she [...] to urinate. Not In System Ref Prov pxeunzxj-puvx-NP-calcium &mins (THERAGRAN-M) 9 mg iron-400 mcg tablet [...] past Migraines 07/23/2024 6x year Septic shock ([facility]) 05/21/2024 Visual impairment glasses Past Surgical History: Procedure Laterality Date CYSTOSCOPY INSERTION STENT URETER Left 06/28/2024 Performed by Esme Chen MD at [facility] CYSTOSCOPY RETROGRADE PYELOGRAM Left 06/28/2024 Performed by Esme Chen MD at [facility] HYSTERECTOMY age 42's INGUINAL HERNIA REPAIR x2 pt unsure of date JOINT REPLACEMENT Bilateral pt unsure of when KIDNEY STONE SURGERY 2017 I had kidney stones blasted LASER HOLMIUM URETEROSCOPY RENAL STONES < OR=1CM; STONE BASKET EXTRACTION Left 06/28/2024 Performed by Esme Chen MD at [facility] REMOVAL TUBE NEPHROSTOMY Left 06/28/2024 Performed by Esme Chen MD at [facility] TONSILLECTOMY as a child UMBILICAL HERNIA REPAIR pt unsure of when URETERAL DILATION Left 06/28/2024 Performed by Esme Chen MD at [facility] Family History Problem Relation Age of Onset [...] Social History Narrative 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 She was then transferred to [place]. In a review of the record, she [...] to urinate. Not In System Ref Prov ivlnliib-xywy-FQ-calcium &mins (THERAGRAN-M) 9 mg iron-400 mcg tablet [...] past Migraines 07/23/2024 6x year Septic shock ([facility]) 05/21/2024 Visual impairment glasses Past Surgical History: Procedure Laterality Date CYSTOSCOPY INSERTION STENT URETER Left 06/28/2024 Performed by Esme Chen MD at [facility] CYSTOSCOPY RETROGRADE PYELOGRAM Left 06/28/2024 Performed by Esme Chen MD at [facility] HYSTERECTOMY age 42's INGUINAL HERNIA REPAIR x2 pt unsure of date JOINT REPLACEMENT Bilateral pt unsure of when KIDNEY STONE SURGERY 2017 I had kidney stones blasted LASER HOLMIUM URETEROSCOPY RENAL STONES < OR=1CM; STONE BASKET EXTRACTION Left 06/28/2024 Performed by Esme Chen MD at [facility] REMOVAL TUBE NEPHROSTOMY Left 06/28/2024 Performed by Esme Chen MD at [facility] TONSILLECTOMY as a child UMBILICAL HERNIA REPAIR pt unsure of when URETERAL DILATION Left 06/28/2024 Performed by Esme Chen MD at [facility] Family History Problem Relation Age of Onset [...] Social History Narrative 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 Report to the Entrance B. Check in at the information desk the surgery. The waiting room located on the second floor. If you have any questions prior to surgery, please call Pre-Admission Clinic at [phone] between 7:30 am and 4:30 pm Monday through Monday. If you have questions the morning of surgery, please call the Pre-op Department at [phone]. Notify your SURGEON if you develop any [...] RIGHTS AND RESPONSIBILITIES As a patient at [facility], you have the right to: Receive medical care and be informed of who is taking care of you Be treated with dignity and respect Have a family member/financial representative of choice and your physician notified [...] of hospital charges and payment methods Patient/patient financial representative responsibilities are to: Provide information about health status to facilitate care, treatment and services Follow the treatment, plan, keep appointments and speak up when you do not understand the plan Respect the rights of other patients and healthcare personnel Follow organizational rules and regulations that support quality care and a safe environment Fulfill financial obligations as promptly as possible documented in this [facility]12-07-2024 Miscellaneous Notes* Telephone Encounter - Esme Chen MD - 06/29/2024 10:36 PM EST Patient had left ureteroscopy with holmium laser lithotripsy of distal ureteral stone with me on 06/28/2024. Needs to be scheduled for cystoscopy with left ureteroscopy and holmium laser lithotripsy of renal stone with stent exchange, 1.5 hours, [facility] next available with me. Need CVAC or steerable access sheath (ClearPetra) available. Urine culture 1 week before. Thanks. documented in this [facility]12-07-2024 Telephone encounter Note* Telephone Encounter - Esme Chen MD - 06/29/2024 10:36 PM EST Patient had left ureteroscopy with holmium laser lithotripsy of distal ureteral stone with me on 06/28/2024. Needs to be scheduled for cystoscopy with left ureteroscopy and holmium laser lithotripsy of renal stone with stent exchange, 1.5 hours, [facility] next available with me. Need CVAC or steerable access sheath (ClearPetra) available. Urine culture 1 week before. Thanks. [facility]11-22-2024 Instructions* Pre-Procedure Instructions - Regi Rivera RN - 06/14/2024 11:30 AM EST Your surgery/procedure is scheduled at [facility] on 06/28/24 at 1 pm Arrival Time 11 am [facility] Address: [address] [place] [address] Park in P1 Parking lot located on [facility]. Report to the Entrance B. Check in at the information desk the surgery. The waiting room located on the second floor. If you have any questions prior to surgery, please call Pre-Admission Clinic at [phone] between 7:30 am and 4:30 pm Monday through Monday. If you have questions the morning of surgery, please call the Pre-op Department at [phone]. Notify your SURGEON if you develop any [...] RIGHTS AND RESPONSIBILITIES As a patient at [facility], you have the right to: Receive medical care and be informed of who is taking care of you Be treated with dignity and respect Have a family member/financial representative of choice and your physician notified [...] of hospital charges and payment methods Patient/patient financial representative responsibilities are to: Provide information about health status to facilitate care, treatment and services Follow the treatment, plan, keep appointments and speak up when you do not understand the plan Respect the rights of other patients and healthcare personnel Follow organizational rules and regulations that support quality care and a safe environment Fulfill financial obligations as promptly as possible [facility]11-22-2024 Miscellaneous Notes* Pre-Procedure Instructions - Regi Rivera RN - 06/14/2024 11:30 AM EST Your surgery/procedure is scheduled at [facility] on 06/28/24 at 1 pm Arrival Time 11 am [facility] Address: [address] [place] [address] Park in P1 Parking lot located on [facility]. Report to the Entrance B. Check in at the information desk the surgery. The waiting room located on the second floor. If you have any questions prior to surgery, please call Pre-Admission Clinic at [phone] between 7:30 am and 4:30 pm Monday through Monday. If you have questions the morning of surgery, please call the Pre-op Department at [phone]. Notify your SURGEON if you develop any [...] RIGHTS AND RESPONSIBILITIES As a patient at [facility], you have the right to: Receive medical care and be informed of who is taking care of you Be treated with dignity and respect Have a family member/financial representative of choice and your physician notified [...] of hospital charges and payment methods Patient/patient financial representative responsibilities are to: Provide information about health status to facilitate care, treatment and services Follow the treatment, plan, keep appointments and speak up when you do not understand the plan Respect the rights of other patients and healthcare personnel Follow organizational rules and regulations that support quality care and a safe environment Fulfill financial obligations as promptly as possible documented [facility] Evaluation note* Diagnosis Onset Date Resolution Status Admit Date Elevated liver function tests acuteNovember 2023 2:12pmSepsisacuteNovember 2023 2:12pm [facility] Work Phone: [phone]) 393-296811-04-2024 Miscellaneous Notes* Telephone Encounter - SENA Vidal - 05/27/2024 1:19 PM EST Audra from [facility] is calling because there are no orders [...] her vm is full. documented in this [facility] Telephone encounter Note* Telephone Encounter - SENA Vidal - 05/27/2024 1:19 PM EST Audra from [facility] is calling because there are no orders for dressing changes, bag changes,etc. Are you the one to do this for the pt? [employer] [id number] Telephone encounter Note* Telephone Encounter - Esme Chen MD - 05/27/2024 1:19 PM EST Dressing change weekly, flush with 10 mL sterile saline as needed for no drainage, no bag change for now. Thanks. [employer] Work Phone: [phone] Telephone encounter Note* Telephone Encounter - SENA Vidal - 05/27/2024 1:19 PM EST I tried calling Audra back, , and her vm is full. [facility] [employer] [id number] Progress note* Significant Event - Disha Mckeon RN - 05/26/2024 3:50 PM EST Leaving with to car currently [facility] [employer] [id number] Miscellaneous Notes* Significant Event - Disha Mckeon RN - 05/26/2024 3:50 PM EST Leaving with to car currently * Plan of Care - Disha Mckeon RN - 05/26/2024 2:47 PM EST Problem: Pain Goal: Patient goal is pain score less than 4, able to rest, and participant in treatment plan as appropriate Description: INTERVENTIONS: 1. Encourage patient or legal financial representative to report early pain and ask [...] per policy 9. Teach patient or legal financial representative interventions for comforting Outcome: Completed Note: [...] at the bedside 7. Instruct patient/ patient financial representative about use of safety devices 8. Include patient/ patient financial representative in decisions related to safety Outcome: [...] hygiene technique 7. Identify and instruct patient/patient financial representative in use of appropriate isolation precautionsfor identified infection/symptoms 8. Provide and discuss with patient/patient financial representative on educational MDRO sheet 9. Encourage and monitor nutritional status daily and consult rail engineer if indicated 10. Implement neutropenic guidelines as needed 11. Review exposure to history of communicable disease and recent travel history on admission 12. Encourage annual influenza vaccine 13. Encourage pneumonia vaccine Outcome: Completed Note: Evaluation of progress towards goal: goal met Problem: Knowledge Deficit Goal: Patient/patient financial representative demonstrates understanding of disease process, treatment [...] supplement as ordered 13. Collaborate with clinical rail engineer 14. Include patient/ patient's financial representative in decisions related to nutrition Outcome: [...] Moderate - High Risk Fall Score Description: [place] Fall Score of =/> 25 or indicated by [facility] Assessment Goal: Patient should be free from fall Description: Interventions: 1. Lund to environment 2. Hourly rounds addressing the [...] non-skid footwear 11. Teach patient and patient financial representative to maintain environment for safety and [...] (cane, walker) within reach 19. Request patient financial representative bring adaptive equipment/mobility aids from home or obtain and provide as needed 20. Consult pharmacy regarding effects of med's affecting mobility, cognition, and alternatives 21. Obtain physician order for PT if risk factors associated with mobility are present 22. Obtain physician order for OT as appropriate 23. Utilize diversional activities 24. Educate patient and patient financial representative how to maintain a safe environment during visitationtimes (notify nurse prior to leaving bedside) 25. Consider appropriateness of medical or non-medical biller coder 26. Set up voiding schedule as appropriate (every 2 hours) Outcome: Completed Note: Evaluation of progress towards goal: goal met * Discharge Planning Note - Melissa Jones - 05/26/2024 2:11 PM EST DISCHARGE PLANNING NOTE CRF sent to [address]- [place] (P# ; F# ); [place] (P#[phone] ; F# [phone]) use [facility] office and [facility], [facility] [place], [place] formerly [facility] - (P# ; F# ) * Discharge Planning Note - Sakina Wooten RN - 05/26/2024 1:59 PM EST DISCHARGE PLANNING NOTE Patient is ready for discharge. Tasked RC to send CRF to [address] [facility]. CN contacted [facility] to confirm patient is discharging today, spoke with Jacey. They will reachout to patient to arrange delivery of medication/supplies. [address] is scheduled for a SOC tomorrow between 12-pm. RN updated. - Sakina Wooten RN 05/26/24 2:01 PM * Plan of Care - Delilah Becerra RN - 05/26/2024 2:29 AM EST Problem: Pain Goal: Patient goal is pain score less than 4, able to rest, and participant in treatment plan as appropriate Description: INTERVENTIONS: 1. Encourage patient or legal financial representative to report early pain and ask [...] per policy 9. Teach patient or legal financial representative interventions for comforting Outcome: Progressing Note: [...] at the bedside 7. Instruct patient/ patient financial representative about use of safety devices 8. Include patient/ patient financial representative in decisions related to safety Outcome: [...] hygiene technique 7. Identify and instruct patient/patient financial representative in use of appropriate isolation precautionsfor identified infection/symptoms 8. Provide and discuss with patient/patient financial representative on educational MDRO sheet 9. Encourage and monitor nutritional status daily and consult rail engineer if indicated 10. Implement neutropenic guidelines as [...] cold sores. Problem: Knowledge Deficit Goal: Patient/patient financial representative demonstrates understanding of disease process, treatment [...] supplement as ordered 13. Collaborate with clinical rail engineer 14. Include patient/ patient's financial representative in decisions related to nutrition Outcome: [...] be free from fall Description: Interventions: 1. Lund to environment 2. Hourly rounds addressing the [...] non-skid footwear 11. Teach patient and patient financial representative to maintain environment for safety and [...] (cane, walker) within reach 19. Request patient financial representative bring adaptive equipment/mobility aids from home or obtain and provide as needed 20. Consult pharmacy regarding effects of med's affecting mobility, cognition, and alternatives 21. Obtain physician order for PT if risk factors associated with mobility are present 22. Obtain physician order for OT as appropriate 23. Utilize diversional activities 24. Educate patient and patient financial representative how to maintain a safe environment during visitationtimes (notify nurse prior to leaving bedside) 25. Consider appropriateness of medical or non-medical biller coder 26. Set up voiding schedule as appropriate [...] Description: INTERVENTIONS: 1. Encourage patient or legal financial representative to report early pain and ask [...] per policy 9. Teach patient or legal financial representative interventions for comforting Outcome: Progressing Note: [...] at the bedside 7. Instruct patient/ patient financial representative about use of safety devices 8. Include patient/ patient financial representative in decisions related to safety Outcome: [...] hygiene technique 7. Identify and instruct patient/patient financial representative in use of appropriate isolation precautionsfor identified infection/symptoms 8. Provide and discuss with patient/patient financial representative on educational MDRO sheet 9. Encourage and monitor nutritional status daily and consult rail engineer if indicated 10. Implement neutropenic guidelines as needed 11. Review exposure to history of communicable disease and recent travel history on admission 12. Encourage annual influenza vaccine 13. Encourage pneumonia vaccine Outcome: Progressing Note: Evaluation of progress towards goal: Infection prevention measures put into place. Will continue to monitor for signs and symptoms of infection. Problem: Knowledge Deficit Goal: Patient/patient financial representative demonstrates understanding of disease process, treatment [...] being looked over by charge nurse. * PT/OT/PUBLIC WORKS TECHNICIAN - Cristino Hugo, PT - 05/24/2024 2:50 [...] Medical History: Diagnosis Date Migraines Septic shock ([facility]) 05/21/2024 Past Surgical History: Procedure Laterality Date [...] Equipment: gait belt, RW, percutaneous drain, guevara Telemetry/Boxing Instructor: Yes Oxygen Used: room air Other: Fall [...] Goal: Patient will perform transfers with Modified [place] Dates: Start: 05/24/24 Expected End: 06/22/24 Description: Goal Description: Disciplines: PT Physical Therapy Care Plan (Resolved) There are no resolved problems. Principal Problem: Septic shock (CMS-HCC) * PT/OT/PUBLIC WORKS TECHNICIAN - Melissa Andrade OTR/Alicia - 05/24/2024 2:35 [...] decline resulting from admit as transfer from [place] on 05/21/24 with fever, chills and general weakness. Pt hypotensive and tachycardic CT A+P - L sided stone with hydronephrosis IR for percutaneous drain, L nephrostomy tube Past Medical History: Diagnosis Date Migraines Septic shock ([facility]) 05/21/2024 Past Surgical History: Procedure Laterality Date [...] Equipment: gait belt, RW, percutaneous drain, guevara Telemetry/Boxing Instructor: Yes Oxygen Used: room air Other: Fall [...] her) Other : Pt not using AD supervisor grain and yeast plants. Prior Function Lives With: Spouse (retired and [...] Patient will perform home management with Modified [place] Dates: Start: 05/24/24 Expected End: 06/14/24 Description: [...] no resolved problems. Principal Problem: Septic shock ([facility]) * Discharge Planning Note - KALINA Sanon [...] work faxed prescription- wait insurance coverage and [facility]- wait acceptance. Wait PT/OT evaluations and recommendations. CN will continue to follow and is available should any further needs arise. - KALINA SANON 05/24/24 12:20 PM [facility] denied referral. Social work sent referral to [facility] and [facility]. [facility] is not sure if they are available to start services until Monday as they will need insurance approval. Waiting [facility] to inform of [...] Referral [place] [facility] [facility] - (P# ; F# ); [facility] [place] formerly [facility] - (P# ; F# ) * Plan of Care - Jovany Wynne RN - 05/23/2024 8:52 AM EDT Problem: Pain Goal: Patient goal is pain score less than 4, able to rest, and participant in treatment plan as appropriate Description: INTERVENTIONS: 1. Encourage patient or legal financial representative to report early pain and ask [...] per policy 9. Teach patient or legal financial representative interventions for comforting Outcome: Progressing Note: [...] at the bedside 7. Instruct patient/ patient financial representative about use of safety devices 8. Include patient/ patient financial representative in decisions related to safety Outcome: [...] hygiene technique 7. Identify and instruct patient/patient financial representative in use of appropriate isolation precautionsfor identified infection/symptoms 8. Provide and discuss with patient/patient financial representative on educational MDRO sheet 9. Encourage and monitor nutritional status daily and consult rail engineer if indicated 10. Implement neutropenic guidelines as [...] infection/ sepsis. Problem: Knowledge Deficit Goal: Patient/patient financial representative demonstrates understanding of disease process, treatment [...] Score of =/> 25 or indicated by [facility] Assessment Goal: Patient should be free from fall Description: Interventions: 1. Lund to environment 2. Hourly rounds addressing the [...] non-skid footwear 11. Teach patient and patient financial representative to maintain environment for safety and [...] (cane, walker) within reach 19. Request patient financial representative bring adaptive equipment/mobility aids from home or obtain and provide as needed 20. Consult pharmacy regarding effects of med's affecting mobility, cognition, and alternatives 21. Obtain physician order for PT if risk factors associated with mobility are present 22. Obtain physician order for OT as appropriate 23. Utilize diversional activities 24. Educate patient and patient financial representative how to maintain a safe environment during visitationtimes (notify nurse prior to leaving bedside) 25. Consider appropriateness of medical or non-medical biller coder 26. Set up voiding schedule as appropriate [...] Description: INTERVENTIONS: 1. Encourage patient or legal financial representative to report early pain and ask [...] per policy 9. Teach patient or legal financial representative interventions for comforting Outcome: Progressing Note: [...] at the bedside 7. Instruct patient/ patient financial representative about use of safety devices 8. Include patient/ patient financial representative in decisions related to safety Outcome: [...] Description: INTERVENTIONS: 1. Encourage patient or legal financial representative to report early pain and ask [...] per policy 9. Teach patient or legal financial representative interventions for comforting 05/22/2024 1633 by [...] at the bedside 7. Instruct patient/ patient financial representative about use of safety devices 8. Include patient/ patient financial representative in decisions related to safety Outcome: [...] hygiene technique 7. Identify and instruct patient/patient financial representative in use of appropriate isolation precautionsfor identified infection/symptoms 8. Provide and discuss with patient/patient financial representative on educational MDRO sheet 9. Encourage and monitor nutritional status daily and consult rail engineer if indicated 10. Implement neutropenic guidelines as [...] Score of =/> 25 or indicated by [facility] Assessment Goal: Patient should be free from fall Description: Interventions: 1. Lund to environment 2. Hourly rounds addressing the [...] non-skid footwear 11. Teach patient and patient financial representative to maintain environment for safety and [...] (cane, walker) within reach 19. Request patient financial representative bring adaptive equipment/mobility aids from home or obtain and provide as needed 20. Consult pharmacy regarding effects of med's affecting mobility, cognition, and alternatives 21. Obtain physician order for PT if risk factors associated with mobility are present 22. Obtain physician order for OT as appropriate 23. Utilize diversional activities 24. Educate patient and patient financial representative how to maintain a safe environment during visitationtimes (notify nurse prior to leaving bedside) 25. Consider appropriateness of medical or non-medical biller coder 26. Set up voiding schedule as appropriate [...] 05/22/2024 2:06 PM EDT DISCHARGE PLANNING NOTE Top Lifter met with patient, introduced self, and explained role. Patient is alert and oriented, sitting in lazy boy chair, cooperative. Patient educated on safe discharge plan. Pt admitted 05/21/2024 with Septic shock ([facility]) [A41.9, R65.21] Elevated troponin [R79.89] per chart review. Consults: Urology Discharge Barriers per Daily Transition Rounds and chart review: clears, IV ATB, IV Pepcid, new neph tube, guevara Past Medical History: Diagnosis Date Migraines Septic shock ([facility]) 05/21/2024 Prior to admission patient was [...] final transition needs. PCP: OLMAN SHOEMAKER MD Pharmacy:[facility] PCP and pharmacy confirmed with [...] 60 Thank you, Angella PIERCE, RN Clinical County Sheriff Clinical Documentation Integrity Email: [email or web address] Normal Hours of availability 7:00am to [...] ICU team to transfer primary service to [facility]. I have received a verbalhand off from the ICU team. [facility] will assume care as primary team, [...] tachypneic?. Thank you, Angella PIERCE, RN Clinical County Sheriff Clinical Documentation Integrity Email: [email or web address] Normal Hours of availability 7:00am to 3:30pm, [...] Description: INTERVENTIONS: 1. Encourage patient or legal financial representative to report early pain and ask [...] per policy 9. Teach patient or legal financial representative interventions for comforting Outcome: Progressing Note: [...] hygiene technique 7. Identify and instruct patient/patient financial representative in use of appropriate isolation precautionsfor identified infection/symptoms 8. Provide and discuss with patient/patient financial representative on educational MDRO sheet 9. Encourage and monitor nutritional status daily and consult rail engineer if indicated 10. Implement neutropenic guidelines as [...] pressure cuff appropriate to size of patient, fiberglass product tester, pulse oximetry, ETCO2, and reversal agents are available. An emergency resuscitation cart, advanced resuscitation medications and defibrillator are availablein the immediate area. documented in this [facility] History of Present illness Narrative* Vaishali Alberts [...] Recommendations: Reportedly CT of the abdomen from [facility] with left-sided stone with significant hydronephrosis (awaiting report) Status post left percutaneous nephrostomy tube placement Blood cultures from [facility] May 19, 2024, reportedly not yet finalized, preliminary with E coli and Enterobacterale Urine culture from [facility] on May 21, 2024 finalized with [...] Component Value Units Date/Time Blood culture #1 [[id number]] Collected: 05/23/24 1020 Specimen: Blood Updated: 05/26/24937 Specimen Notes SUBOPTIMAL VOLUME OF BLOOD COLLECTED, RESULTS MAY BE AFFECTED. Culture NO GROWTH 3 DAYS Blood culture #2 [[id number]] Collected: 05/23/24 1020 Specimen: Blood Updated: 05/26/24 0939 Specimen Notes SUBOPTIMAL VOLUME OF BLOOD COLLECTED, RESULTS MAY BE AFFECTED. Culture NO GROWTH 3 DAYS Urine culture [[id number]] Collected: 05/21/24 1525 Specimen: Urine from Guevara Catheter Specimen Updated: 05/22/24 1420 Culture <10,000 ORGANISMS/ML NORMAL URO GENITAL ALANNAH Blood culture #2 [[id number]] (Abnormal) Collected: 05/21/24 1523 Specimen: Blood Updated: 05/24/24 0705 Culture ESCHERICHIA COLI FOR SUSCEPTIBILITY, SEE PREVIOUS REPORT. Blood culture #1 [[id number]] (Abnormal) (Susceptibility) Collected: 05/21/24 1520 Specimen: Blood [...] Q8H OSVALDO meloxicam, 15 mg, oral, Daily wdgxyrdk-eyqm-PV-calcium &mins, 1 tablet, oral, Daily Consult PICC nurse - Midline, , , Once AND sodium chloride, 10 mL, intravenous, Q12H AND sodium chloride, 10 mL, intravenous, PRN AND sodium chloride, 20 mL, intravenous, PRN valACYclovir, 500 mg, oral, BID Thank you for allowing us to participate in the care of this patient. Please call with questions. Vaishali Alberts APRN, PARTNER ALLIANCE MANAGER [phone] This note was completed using a voice university partnership rep system. Every effort was made to ensure accuracy. However, inadvertent computerized university partnership rep errors may be present. Vaishali Alberts APRN-PARTNER ALLIANCE MANAGER 05/26/24 1200 * Tabby Iqbal MD - 05/25/2024 1:10 PM EDT [facility] PROGRESS NOTE 05/25/2024 Patient [...] was made toensure accuracy; however, inadvertent computerized university partnership rep errors may be present. Electronically signed by: TABBY IQBAL MD 05/25/2024 1:11 PM * Tammy Boyd APRN-PARTNER ALLIANCE MANAGER - 05/25/2024 8:30 AM EDT Images from [...] Recommendations: Reportedly CT of the abdomen from [facility] with left-sided stone with significant hydronephrosis (awaiting report) Status post left percutaneous nephrostomy tube placement Blood cultures from [facility] May 19, 2024, reportedly not yet finalized, preliminary with E coli and Enterobacterals Urine culture from [facility] on May 21, 2024 finalized with [...] Component Value Units Date/Time Blood culture #1 [[id number]] Collected: 05/23/24 1020 Specimen: Blood Updated: 05/25/24 1038 Specimen Notes SUBOPTIMAL VOLUME OF BLOOD COLLECTED, RESULTS MAY BE AFFECTED. Culture NO GROWTH 2 DAYS Blood culture #2 [[id number]] Collected: 05/23/24 1020 Specimen: Blood Updated: 05/25/24 1039 Specimen Notes SUBOPTIMAL VOLUME OF BLOOD COLLECTED, RESULTS MAY BE AFFECTED. Culture NO GROWTH 2 DAYS Urine culture [[id number]] Collected: 05/21/24 1525 Specimen: Urine from Guevara Catheter Specimen Updated: 05/22/24 1420 Culture <10,000 ORGANISMS/ML NORMAL URO GENITAL ALANNAH Blood culture #2 [[id number]] (Abnormal) Collected: 05/21/24 1523 Specimen: Blood Updated: 05/24/24 0705 Culture ESCHERICHIA COLI FOR SUSCEPTIBILITY, SEE PREVIOUS REPORT. Blood culture #1 [[id number]] (Abnormal) (Susceptibility) Collected: 05/21/24 1520 Specimen: Blood [...] Q8H OSVALDO meloxicam, 15 mg, oral, Daily ytwetjjp-qjir-ON-calcium &mins, 1 tablet, oral, Daily Consult PICC [...] after 1700, and for urgent matters call [phone], if no answer call [phone] This note was completed using a voice university partnership rep system. Every effort was made to ensure accuracy. However, inadvertent computerized university partnership rep errors may be present. STEPHEN Mills 05/25/24 1508 STEPHEN Mills 05/25/24 1901 * Lesvia Andrews MD - 05/24/2024 2:10 PM EDT 05/24/2024 Patient Name: Sharri Murillo : 1955 Problem List: Principal Problem: Septic shock ([facility]) Assessment and Plan: Septic shock secondary [...] get CT abdomen pelvis official results from [facility] and cultures from [facility] CT of the abdomen showed left-sided stone [...] Component Value Units Date/Time Blood culture #1 [[id number]] Collected: 05/23/24 1020 Specimen: Blood Updated: 05/24/24 1038 Specimen Notes SUBOPTIMAL VOLUME OF BLOOD COLLECTED, RESULTS MAY BE AFFECTED. Culture NO GROWTH 1 DAY Blood culture #2 [[id number]] Collected: 05/23/24 1020 Specimen: Blood Updated: 05/24/24 1039 Specimen Notes SUBOPTIMAL VOLUME OF BLOOD COLLECTED, RESULTS MAY BE AFFECTED. Culture NO GROWTH 1 DAY Urine culture [[id number]] Collected: 05/21/24 1525 Specimen: Urine from Guevara Catheter Specimen Updated: 05/22/24 1420 Culture <10,000 ORGANISMS/ML NORMAL URO GENITAL ALANNAH Blood culture #2 [[id number]] (Abnormal) Collected: 05/21/24 1523 Specimen: Blood Updated: 05/24/24 0705 Culture ESCHERICHIA COLI FOR SUSCEPTIBILITY, SEE PREVIOUS REPORT. Blood culture #1 [[id number]] (Abnormal) (Susceptibility) Collected: 05/21/24 1520 Specimen: Blood [...] was then dilated to accommodate a 10 Cymraes nephrostomy tube. The catheter was secured with a single 0 Prolene suture. Dressing applied. Patient tolerated all procedures well and there were no complications. FINDINGS: Severe left hydronephrosis, fluoroscopic images demonstrated appropriate positioning of nephrostomy tube within the collecting system IMPRESSION: Successful image guided placement of left 10 Cymraes percutaneous nephrostomy tube PLAN: Maintained to gravity [...] Q8H OSVALDO meloxicam, 15 mg, oral, Daily vuujqjkg-bykt-XS-calcium &mins, 1 tablet, oral, Daily Thank you for allowing us to participate in the care of this patient. Please call with questions. This note was completed using a voice university partnership rep system. Every effort was made to ensure accuracy. However, inadvertent computerized university partnership rep errors may be present. BROOKLYNN Morel APRNP-C [phone] STEPHEN Avilez 05/24/24 1140 IMaribel MD, personally performed appl-cp-vain diagnostic evaluation on this patient I reviewed and performed all the whitlock component of the patient visit I reviewed FATIMAH history, exam and MDM - Maribel Zepeda MD 05/24/24 11:53 AM * MACKENZIE Tariq - 05/24/2024 11:19 AM EDT BRIEF NUTRITION NOTE NUTRITION ASSESSMENT: Reason to be seen: nutrition screen for poor po intake MEDICAL TECHNOLOGIST PRN Patient History: Brief Clinical Summary: Presented with [...] Body Weight: see above for wt trends [place] Body Weight: 64kg Percent [place] Body Weight: 234% Weight Changes: down 2.9kg [...] of the ICU per critical Care [facility] Nurse Practitioner [facility] Subjective: NOIs. Examined while resting in the chair. present at bedside. Patient states she is havingno pain and no shortness of breath. Denies nausea vomiting. Endorses good appetite. No fevers reported overnight. Hospital Problem: Principal Problem: Septic shock ([facility]) OBJECTIVE: General Appearance: Comfortable, in no [...] Procedure Component Value Units Date/Time Urine culture [[id number]] Collected: 05/21/24 152 Specimen: Urine from Guevara Catheter Specimen Updated: 05/22/24 1420 Culture <10,000 ORGANISMS/ML NORMAL URO GENITAL ALANNAH Blood culture #2 [[id number]] Collected: 05/21/24 1523 Specimen: Blood Updated: 05/22/24 0609 Culture GRAM NEGATIVE RODS CULTURE IN PROGRESS Blood culture #1 [[id number]] (Abnormal) Collected: 05/21/24 1520 Specimen: Blood Updated: 05/23/24 0918 Culture ESCHERICHIA COLI CULTURE IN PROGRESS Escherichia coli detected by PCR. No resistance genes detected by PCR. Results from last 7 days Lab Units 05/23/24 0258 05/22/24 0200 05/21/24 1320 05/21/24 1310 BEDSIDE GLUCOSE mg/dL -- -- 114* -- GLUCOSE mg/dL 93 116* -- 110* Microbiology Results Procedure Component Value Units Date/Time Urine culture [[id number]] Collected: 05/21/24 1525 Specimen: Urine from Guevara Catheter Specimen Updated: 05/22/24 1420 Culture <10,000 ORGANISMS/ML NORMAL URO GENITAL ALANNAH Blood culture #2 [[id number]] Collected: 05/21/24 1523 Specimen: Blood Updated: 05/22/24 0609 Culture GRAM NEGATIVE RODS CULTURE IN PROGRESS Blood culture #1 [[id number]] (Abnormal) Collected: 05/21/24 1520 Specimen: Blood Updated: [...] and Sleep Pulmonary / Critical Care Pager: [phone] Office : [phone] Fax : [phone] This note was created with the assistance [...] - 68 y.o. - 1955 N - [id number] [facility] # - [id number] Date of Admission - 05/21/2024 12:52 PM [...] Procedure Component Value Units Date/Time Urine culture [[id number]] Collected: 05/21/241802 Specimen: Urine Updated: 05/21/24 180 Blood culture #2 [[id number]] Collected: 05/21/24 1523 Specimen: Blood Updated: 05/22/24 0609 Culture GRAM NEGATIVE RODS CULTURE IN PROGRESS Blood culture #1 [[id number]] (Abnormal) Collected: 05/21/24 152 Specimen: Blood Updated: 05/22/24 0608 Culture GRAM NEGATIVE RODS CULTURE IN PROGRESS Escherichia coli detected by PCR. No resistance genes detected by PCR. Lab Results Component Value Date INR 1.2 (H) 05/21/2024 PROTIME 14.1 (H) 05/21/2024 Radiology (See actual reports for details) Ryan Benitez MD [facility] Physicians Pulmonary and Sleep Pulmonary / Critical Care Pager: [phone] Office : [phone] Fax : [phone] 48:31 AM * Lance Bell [facility] - 05/21/2024 3:24 PM EDT [facility] Department of Pharmacy Pharmacy-Physician Communication Pt name: [...] mg/dL (H)). Famotidine regimen was renally-adjusted per [facility] policy Thank you for your consideration. If we can offer more assistance, please fee free to call us at x [phone]. Lance Bell PharmD, [facility] * Lance Bell RP - 05/21/2024 3:20 PM EDT [facility] of Pharmacy Pharmacy-Physician Communication Pt name: [...] 1.5 mg/dL (H)). Zosyn was dosed per [facility] policy Thank you for your consideration. If we can offer more assistance, please fee free to call us at x [phone]. Lance Bell PharmD, [facility] documented in [facility]Tr[facility]11-[facility] Plan of care note * Plan of Care - Disha Mckeon RN - 05/26/2024 2:47 PM EST Problem: Pain Goal: Patient goal is pain score less than 4, able to rest, and participant in treatment plan as appropriate Description: INTERVENTIONS: 1. Encourage patient or legal financial representative to report early pain and ask [...] per policy 9. Teach patient or legal financial representative interventions for comforting Outcome: Completed Note: [...] at the bedside 7. Instruct patient/ patient financial representative about use of safety devices 8. Include patient/ patient financial representative in decisions related to safety Outcome: [...] hygiene technique 7. Identify and instruct patient/patient financial representative in use of appropriate isolation precautionsfor identified infection/symptoms 8. Provide and discuss with patient/patient financial representative on educational MDRO sheet 9. Encourage and monitor nutritional status daily and consult rail engineer if indicated 10. Implement neutropenic guidelines as needed 11. Review exposure to history of communicable disease and recent travel history on admission 12. Encourage annual influenza vaccine 13. Encourage pneumonia vaccine Outcome: Completed Note: Evaluation of progress towards goal: goal met Problem: Knowledge Deficit Goal: Patient/patient financial representative demonstrates understanding of disease process, treatment [...] supplement as ordered 13. Collaborate with clinical rail engineer 14. Include patient/ patient's financial representative in decisions related to nutrition Outcome: [...] Score of =/> 25 or indicated by [facility] Rehab Assessment Goal: Patient should be free from fall Description: Interventions: 1. Lund to environment 2. Hourly rounds addressing the [...] non-skid footwear 11. Teach patient and patient financial representative to maintain environment for safety and [...] (cane, walker) within reach 19. Request patient financial representative bring adaptive equipment/mobility aids from home or obtain and provide as needed 20. Consult pharmacy regarding effects of med's affecting mobility, cognition, and alternatives 21. Obtain physician order for PT if risk factors associated with mobility are present 22. Obtain physician order for OT as appropriate 23. Utilize diversional activities 24. Educate patient and patient financial representative how to maintain a safe environment during visitationtimes (notify nurse prior to leaving bedside) 25. Consider appropriateness of medical or non-medical biller coder 26. Set up voiding schedule as appropriate (every 2 hours) Outcome: Completed Note: Evaluation of progress towards goal: goal met [employer]11-03-2024 Progress note* Discharge Planning Note - Melissa Jones - 05/26/2024 2:11 PM EST DISCHARGE PLANNING NOTE CRF sent to [address]- [place] (P# ; F# ); [place] (P#[phone] ; F# [phone]) use [place] main office and [facility], An [facility]- [place], [place] formerly [facility] - (P# ; F# ) [employer]11-03-2024 Progress note* Discharge Planning Note - Sakina Wooten RN - 05/26/2024 1:59 PM EST DISCHARGE PLANNING NOTE Patient is ready for discharge. Tasked [facility] to send CRF to [id number] and [facility]. CN contacted [facility] to confirm patient is discharging today, spoke with Jacey. They will reachout to patient to arrange delivery of medication/supplies. [id number] is scheduled for a SOC tomorrow between 12-pm. RN updated. - Sakina Wooten RN 05/26/24 2:01 PM [facility]11-03-2024 Hospital course Narrative* Tabby Iqbal MD - 05/26/2024 1:22 PM EST Images from the original note were not included. DISCHARGE NOTE Demographics: Patient Name: Sharri Murillo : 1955 DATE OF ADMISSION: 05/21/2024 DATE OF DISCHARGE: 05/26/2024 DISCHARGE DIAGNOSES: Principal Problem: Septic shock ([facility]) CONSULTANTS: Consulting Providers Provider Service Specialty Maribel eZpeda MD [facility] Internal Medicine Infectious Disease PCP: [...] LFT weekly while on antibiotic, faxed to [place] at [phone]. IV flushes as per protocol gabapentin 100 [...] 15 mg tablet Commonly known as: MOBIC jjncygfe-euix-CM-calcium &mins 9 mg iron-400 mcg tablet Commonly known as: THERAGRAN-M MYRBETRIQ 50 mg tablet extended release 24 hr Generic drug: mirabegron nitrofurantoin 100 mg capsule Commonly known as: MACRODANTIN SUMAtriptan 25 mg tablet Commonly known as: IMITREX Where to Get Your Medications These medications were sent to [facility]/pharmacy #[id number] - [address] AT [place] [address] gabapentin 100 mg capsule valACYclovir 500 mg [...] was then dilated to accommodate a 10 Cymraes nephrostomy tube. The catheter was secured with a single 0 Prolene suture. Dressing applied. Patient tolerated all procedures well and there were no complications. FINDINGS: Severe left hydron ephrosis, fluoroscopic images demonstrated appropriate positioning of nephrostomy tube within the collecting system IMPRESSION: Successful image guided placement of left 10 Cymraes percutaneous nephrostomy tube PLAN: Maintained to gravity [...] Follow up: Esme Chen MD [address] [facility] [id number] Follow up Follow with your original urologist to schedule stone treatment, if you desire you may schedule your procedure with [facility] if your urologist is not able to complete the procedure Olman Shoemaker MD [facility] [address] Follow up in 1 week(s) For most accurate medication list, please review the discharge medication summary. 40 minutes were spent on discharging this patient. documented in this encounterTr[facility]ull [facility] Center11-03-2024 Plan of care note * Plan of Care - Delilah Becerra RN - 05/26/2024 2:29 AM EST Problem: Pain Goal: Patient goal is pain score less than 4, able to rest, and participant in treatment plan as appropriate Description: INTERVENTIONS: 1. Encourage patient or legal financial representative to report early pain and ask [...] per policy 9. Teach patient or legal financial representative interventions for comforting Outcome: Progressing Note: [...] at the bedside 7. Instruct patient/ patient financial representative about use of safety devices 8. Include patient/ patient financial representative in decisions related to safety Outcome: [...] hygiene technique 7. Identify and instruct patient/patient financial representative in use of appropriate isolation precautionsfor identified infection/symptoms 8. Provide and discuss with patient/patient financial representative on educational MDRO sheet 9. Encourage and monitor nutritional status daily and consult rail engineer if indicated 10. Implement neutropenic guidelines as [...] cold sores. Problem: Knowledge Deficit Goal: Patient/patient financial representative demonstrates understanding of disease process, treatment [...] supplement as ordered 13. Collaborate with clinical rail engineer 14. Include patient/ patient's financial representative in decisions related to nutrition Outcome: [...] be free from fall Description: Interventions: 1. Lund to environment 2. Hourly rounds addressing the [...] non-skid footwear 11. Teach patient and patient financial representative to maintain environment for safety and [...] (cane, walker) within reach 19. Request patient financial representative bring adaptive equipment/mobility aids from home or obtain and provide as needed 20. Consult pharmacy regarding effects of med's affecting mobility, cognition, and alternatives 21. Obtain physician order for PT if risk factors associated with mobility are present 22. Obtain physician order for OT as appropriate 23. Utilize diversional activities 24. Educate patient and patient financial representative how to maintain a safe environment during visitationtimes (notify nurse prior to leaving bedside) 25. Consider appropriateness of medical or non-medical biller coder 26. Set up voiding schedule as appropriate (every 2 hours) Outcome: Progressing Note: Evaluation of progress towards goal: Pt free from fall with hourly rounding continued & maintained. 4 Ps addressed. [facility]11-02-2024 Plan of care note* Plan of Care - Kimberly Sauceda RN - 05/25/2024 4:22 AM EDT Problem: Pain Goal: Patient goal is pain score less than 4, able to rest, and participant in treatment plan as appropriate Description: INTERVENTIONS: 1. Encourage patient or legal financial representative to report early pain and ask [...] per policy 9. Teach patient or legal financial representative interventions for comforting Outcome: Progressing Note: [...] at the bedside 7. Instruct patient/ patient financial representative about use of safety devices 8. Include patient/ patient financial representative in decisions related to safety Outcome: [...] hygiene technique 7. Identify and instruct patient/patient financial representative in use of appropriate isolation precautionsfor identified infection/symptoms 8. Provide and discuss with patient/patient financial representative on educational MDRO sheet 9. Encourage and monitor nutritional status daily and consult rail engineer if indicated 10. Implement neutropenic guidelines as needed 11. Review exposure to history of communicable disease and recent travel history on admission 12. Encourage annual influenza vaccine 13. Encourage pneumonia vaccine Outcome: Progressing Note: Evaluation of progress towards goal: Infection prevention measures put into place. Will continue to monitor for signs and symptoms of infection. Problem: Knowledge Deficit Goal: Patient/patient financial representative demonstrates understanding of disease process, treatment [...] plans being looked over by charge nurse. [facility]11-[facility] Progress note* PT/OT/PUBLIC WORKS TECHNICIAN - Cristino Hugo, PT - 05/24/2024 2:50 [...] Equipment: gait belt, RW, percutaneous drain, guevara Telemetry/Boxing Instructor: Yes Oxygen Used: room air Other: Fall [...] Goal: Patient will perform transfers with Modified [place] Dates: Start: 05/24/24 Expected End: 06/22/24 Description: Goal Description: Disciplines: PT Physical Therapy Care Plan (Resolved) There are no resolved problems. Principal Problem: Septic shock ([facility]) [facility]11-01-2024 Progress note* PT/OT/PUBLIC WORKS TECHNICIAN - HILLARY Art - 05/24/2024 2:35 PM [...] decline resulting from admit as transfer from [place] on 05/21/24 with fever, chills and general weakness. Pt hypotensive and tachycardic CT A+P - L sided stone with hydronephrosis IR for percutaneous drain, L nephrostomy tube Past Medical History: Diagnosis Date Migraines Septic shock ([facility]) 05/21/2024 Past Surgical History: Procedure Laterality Date [...] Equipment: gait belt, RW, percutaneous drain, guevara Telemetry/Boxing Instructor: Yes Oxygen Used: room air Other: Fall [...] her) Other : Pt not using AD supervisor grain and yeast plants. Prior Function Lives With: Spouse (retired and [...] Patient will perform home management with Modified [place] Dates: Start: 05/24/24 Expected End: 06/14/24 Description: [...] no resolved problems. Principal Problem: Septic shock ([facility]) [employer]11-01-2024 Progress note* Discharge Planning Note - KALINA [...] work faxed prescription- wait insurance coverage and [facility]- wait acceptance. Wait PT/OT evaluations and recommendations. CN will continue to follow and is available should any further needs arise. - KALINA SANON 05/24/24 12:20 PM [facility] denied referral. Social work sent referral to [facility] and [facility]. [facility] is not sure if [...] Monday. - KALINA SANON 05/24/24 4:06 PM [employer]11-01-2024 Progress note* Discharge Planning Note - Giuliana Rodriguez - 05/24/2024 11:52 AM EDT DISCHARGE PLANNING NOTE Referral sent to [facility], [facility] [employer]- [place] [place] [facility] - (P# ; F# ); [facility] [place] [facility] - (P# ; F# ) [employer]10-31-2024 Miscellaneous Notes* Telephone Encounter - Esme Chen MD - 05/23/2024 11:02 AM EDT Please schedule patient for cystoscopy with left ureteroscopy, holmium laser lithotripsy with stentplacement, 1.5 hours, [facility] in 4-5 weeks with wa with 1 day preadmission for IV antibiotics as well as medicine consultation. Needs urine culture 1 week prior as well. Thank you. Currently admitted to [facility]. documented in this encounterTr[facility]10-[facility]-2024 Telephone encounter Note* Telephone Encounter - Esme Chen MD - 05/23/2024 11:02 AM EDT Please schedule patient for cystoscopy with left ureteroscopy, holmium laser lithotripsy with stentplacement, 1.5 hours, [facility] in 4-5 weeks with wa with 1 day preadmission for IV antibiotics as well as medicine consultation. Needs urine culture 1 week prior as well. Thank you. Currently admitted to [facility]. [facility] Work Phone: [phone] Consult note* Maribel Zepeda MD - 05/23/2024 9:00 AM EDTAssociated Order(s): IP CONSULT TO INFECTIOUS DISEASES Images from the original note were not included. [facility] Infectious Diseases - Initial Consult Note Sharri Murillo Admit date/time 05/21/2024 12:52 PM Today's Date and Time: 05/23/2024, 11:31 AM Impression: Sepsis E coli bacteremia Left hydronephrosis/obstructive stone Acute kidney injury Leukocytosis 39.0 Morbid obesity of the disease BMI 49.2 Non STEMI Recommendations Get CT abdomen pelvis official results from [facility] Follow-up culture results from [facility] CT of the abdomen showed left-sided stone [...] Medical History: Diagnosis Date Migraines Septic shock ([facility]) 05/21/2024 Past Surgical History: Past Surgical History: Procedure Laterality Date INGUINAL HERNIA REPAIR x2 KNEE ARTHROPLASTY Bilateral UMBILICAL HERNIA REPAIR Medications: cefTRIAXone (ROCEPHIN) IV, 2,000 mg, intravenous, Q24H gabapentin, 100 mg, oral, TID heparin (porcine), 5,000 Units, subcutaneous, Q8H [facility] Social History: Social History Socioeconomic History Marital [...] Component Value Units Date/Time Blood culture #1 [[id number]] Resulted: 05/23/24 1021 Specimen: Blood, Peripheral Draw Updated: 05/23/24 1021 Blood culture #2 [[id number]] Resulted: 05/23/24 1021 Specimen: Blood, Peripheral Draw Updated: 05/23/24 1021 Urine culture [[id number]] Collected: 05/21/24 1525 Specimen: Urine from Guevara Catheter Specimen Updated: 05/22/24 1420 Culture <10,000 ORGANISMS/ML NORMAL URO GENITAL ALANNAH Blood culture #2 [[id number]] Collected: 05/21/24 1523 Specimen: Blood Updated: 05/22/24 0609 Culture GRAM NEGATIVE RODS CULTURE IN PROGRESS Blood culture #1 [[id number]] (Abnormal) Collected: 05/21/24 1520 Specimen: Blood Updated: [...] was then dilated to accommodate a 10 Cymraes nephrostomy tube. The catheter was secured with a single 0 Prolene suture. Dressing applied. Patient tolerated all procedures well and there were no complications. FINDINGS: Severe left hydron ephrosis, fluoroscopic images demonstrated appropriate positioning of nephrostomy tube within the collecting system IMPRESSION: Successful image guided placement of left 10 Cymraes percutaneous nephrostomy tube PLAN: Maintained to gravity [...] of this patient. Please call with questions. [facility] Infectious Disease Tammy Boyd APRN, CNP Preferred method of communication between 0700 and 1700 Epic chat If no response to Epic chat within 30 minutes, after 1700, and for urgent matters call [phone], if no answer call [phone] This note was completed using a voice university partnership rep system. Every effort was made to ensure accuracy. However, inadvertent computerized university partnership rep errors may be present. STEPHEN Mills 05/23/24 1159 IMaribel MD, personally performed fqxq-fc-abpr diagnostic evaluation on this patient I reviewed and performed all the whitlock component of the patient visit I reviewed FATIMAH history, exam and MDM - Maribel Zepeda MD 05/23/24 2:04 PM [facility] [facility] Consult note* Maribel Zepeda MD - 05/23/2024 9:00 AM EDTAssociated Order(s): IP CONSULT TO INFECTIOUS DISEASES Images from the original note were not included. [facility] Infectious Diseases - Initial Consult Note Sharri Murillo Admit date/time 05/21/2024 12:52 PM Today's Date and Time: 05/23/2024, 11:31 AM Impression: Sepsis E coli bacteremia Left hydronephrosis/obstructive stone Acute kidney injury Leukocytosis 39.0 Morbid obesity of the disease BMI 49.2 Non STEMI Recommendations Get CT abdomen pelvis official results from [facility] Follow-up culture results from [facility] CT of the abdomen showed left-sided stone [...] Medical History: Diagnosis Date Migraines Septic shock ([facility]) 05/21/2024 Past Surgical History: Past Surgical History: [...] Component Value Units Date/Time Blood culture #1 [[id number]] Resulted: 05/23/24 1021 Specimen: Blood, Peripheral Draw Updated: 05/23/24 1021 Blood culture #2 [[id number]] Resulted: 05/23/24 1021 Specimen: Blood, Peripheral Draw Updated: 05/23/24 1021 Urine culture [[id number]] Collected: 05/21/24 1525 Specimen: Urine from Guevara Catheter Specimen Updated: 05/22/24 1420 Culture <10,000 ORGANISMS/ML NORMAL URO GENITAL ALANNAH Blood culture #2 [[id number]] Collected: 05/21/24 1523 Specimen: Blood Updated: 05/22/24 0609 Culture GRAM NEGATIVE RODS CULTURE IN PROGRESS Blood culture #1 [[id number]] (Abnormal) Collected: 05/21/24 1520 Specimen: Blood Updated: [...] was then dilated to accommodate a 10 Cymraes nephrostomy tube. The catheter was secured with a single 0 Prolene suture. Dressing applied. Patient tolerated all procedures well and there were no complications. FINDINGS: Severe left hydron ephrosis, fluoroscopic images demonstrated appropriate positioning of nephrostomy tube within the collecting system IMPRESSION: Successful image guided placement of left 10 Cymraes percutaneous nephrostomy tube PLAN: Maintained to gravity [...] after 1700, and for urgent matters call [phone], if no answer call [phone] This note was completed using a voice university [employer] rep system. Every effort was made to ensure accuracy. However, inadvertent computerized [employer] rep errors may be present. STEPHEN Mills 05/23/24 1157 Maribel Gannon MD, personally performed [id number] diagnostic evaluation on this patient I reviewed [...] a 68 y.o. female who presented to [facility] with history of recent UTI on 05/16 [...] ureter or renal pelvis. Pt transferred to [facility] as she has required Vasopressor for hypotension. [...] Interpersonal Safety: Unknown (09/14/2023) Received from [facility] Safety & Environment Fear of Current [...] pelvis- Marked left hydro and hydroureter to [id number] UVJ stone. Possible additional proximal stone, + leftrenal stone Assessment and Plan Impression: 68 yo female with obstructing left distal ureterovesical junction stone with hydroureteronephrosis,+UTI, acute kidney injury Plan: IR consulted for left percutaneous nephrostomy tube emergently, placed and draining, culture sent Continuous supportive care, broad-spectrum antibiotics, ICU support We will need outpatient intervention of stone either here or in [place], also has left nonobstructing kidney stone No further acute urologic intervention needed at this time, will monitor - SHAHZAD LEI 05/21/24 3:04 PM Attending Attestation: I personally performed the face to face diagnostic evaluation on this patient. I have reviewed the advanced practice practitioner's history, exam, and MDM and agree with the assessment and plan as written. [facility] Plan of care note * Plan of Care - Jovany Wynne RN - 05/23/2024 8:52 AM EDT Problem: Pain Goal: Patient goal is pain score less than 4, able to rest, and participant in treatment plan as appropriate Description: INTERVENTIONS: 1. Encourage patient or legal financial representative to report early pain and ask [...] per policy 9. Teach patient or legal financial representative interventions for comforting Outcome: Progressing Note: [...] at the bedside 7. Instruct patient/ patient financial representative about use of safety devices 8. Include patient/ patient financial representative in decisions related to safety Outcome: [...] hygiene technique 7. Identify and instruct patient/patient financial representative in use of appropriate isolation precautionsfor identified infection/symptoms 8. Provide and discuss with patient/patient financial representative on educational MDRO sheet 9. Encourage and monitor nutritional status daily and consult rail engineer if indicated 10. Implement neutropenic guidelines as [...] infection/ sepsis. Problem: Knowledge Deficit Goal: Patient/patient financial representative demonstrates understanding of disease process, treatment [...] Score of =/> 25 or indicated by [facility] Re[facility] Assessment Goal: Patient should be free from fall Description: Interventions: 1. Lund to environment 2. Hourly rounds addressing the [...] non-skid footwear 11. Teach patient and patient financial representative to maintain environment for safety and [...] (cane, walker) within reach 19. Request patient financial representative bring adaptive equipment/mobility aids from home or obtain and provide as needed 20. Consult pharmacy regarding effects of med's affecting mobility, cognition, and alternatives 21. Obtain physician order for PT if risk factors associated with mobility are present 22. Obtain physician order for OT as appropriate 23. Utilize diversional activities 24. Educate patient and patient financial representative how to maintain a safe environment during visitationtimes (notify nurse prior to leaving bedside) 25. Consider appropriateness of medical or non-medical biller coder 26. Set up voiding schedule as appropriate [...] patients are rounded on q1h and PRN. [facility]10-30-[facility] Plan of care note* Plan of Care - Bertrand Cleary - 05/22/2024 7:05 PM EDT Problem: Pain Goal: Patient goal is pain score less than 4, able to rest, and participant in treatment plan as appropriate Description: INTERVENTIONS: 1. Encourage patient or legal financial representative to report early pain and ask [...] per policy 9. Teach patient or legal financial representative interventions for comforting Outcome: Progressing Note: [...] at the bedside 7. Instruct patient/ patient financial representative about use of safety devices 8. Include patient/ patient financial representative in decisions related to safety Outcome: [...] of progress towards goal: RN performing pericare. [employer] [id number] Plan of care note* Plan of Care - Senia Godfrey RN - 05/22/2024 4:34 PM EDT Problem: Pain Goal: Patient goal is pain score less than 4, able to rest, and participant in treatment plan as appropriate Description: INTERVENTIONS: 1. Encourage patient or legal financial representative to report early pain and ask [...] per policy 9. Teach patient or legal financial representative interventions for comforting 05/22/2024 1633 by [...] at the bedside 7. Instruct patient/ patient financial representative about use of safety devices 8. Include patient/ patient financial representative in decisions related to safety Outcome: [...] hygiene technique 7. Identify and instruct patient/patient financial representative in use of appropriate isolation precautionsfor identified infection/symptoms 8. Provide and discuss with patient/patient financial representative on educational MDRO sheet 9. Encourage and monitor nutritional status daily and consult rail engineer if indicated 10. Implement neutropenic guidelines as [...] be free from fall Description: Interventions: 1. Lund to environment 2. Hourly rounds addressing the [...] non-skid footwear 11. Teach patient and patient financial representative to maintain environment for safety and [...] (cane, walker) within reach 19. Request patient financial representative bring adaptive equipment/mobility aids from home or obtain and provide as needed 20. Consult pharmacy regarding effects of med's affecting mobility, cognition, and alternatives 21. Obtain physician order for PT if risk factors associated with mobility are present 22. Obtain physician order for OT as appropriate 23. Utilize diversional activities 24. Educate patient and patient financial representative how to maintain a safe environment during visitationtimes (notify nurse prior to leaving bedside) 25. Consider appropriateness of medical or non-medical biller coder 26. Set up voiding schedule as appropriate [...] patients are rounded on q1h and PRN. [employer]10-30-2024 Progress note* Discharge Planning Note - KALINA Sanon - 05/22/2024 2:06 PM EDT DISCHARGE PLANNING NOTE Top Lifter met with patient, introduced self, and explained role. Patient is alert and oriented, sitting in lazy boy chair, cooperative. Patient educated on safe discharge plan. Pt admitted 05/21/2024 with Septic shock ([facility]) [A41.9, R65.21] Elevated troponin [R79.89] per chart review. Consults: Urology Discharge Barriers per Daily Transition Rounds and chart review: clears, IV ATB, IV Pepcid, new neph tube, guevara Past Medical History: Diagnosis Date Migraines Septic shock ([facility]) 05/21/2024 Prior to admission patient was [...] final transition needs. PCP: OLMAN SHOEMAKER MD Pharmacy:[facility] PCP and pharmacy confirmed with [...] questions. - KALINA SANON 05/22/24 2:07 PM [employer]10-30-2024 Progress note* Query Response - Ryan Benitez [...] 60 Thank you, Angella PIERCE, RN Clinical County Sheriff Clinical Documentation Integrity Email: [email or web address] Hours of availability 7:00am to 3:30pm, Monday to Monday CDI RESPONSE TEXT: Thrombocytopenia due to sepsis Query created by: Angella Gilbert on 05/22/2024 6:01 AM Electronically signed by: Ryan Benitez MD 05/22/2024 12:00 PM [facility]10-30-[facility]24 Plan of care note* Plan of Care - Maria Morton MD - 05/22/2024 9:34 AM EDT [facility] Transfer Accept Note I received a request from the ICU team to transfer primary service to [facility]. I have received a verbalhand off from the ICU team. [facility] will assume care as primary team, [...] to floor if continued to be stable [employer] Work Phone: [phone] Progress note* Query Response - Ryan Benitez [...] tachypneic?. Thank you, Angella PIERCE, RN Clinical County Sheriff Clinical Documentation Integrity Email: [email or web address] Normal Hours of availability 7:00am to 3:30pm, Monday to Monday CDI RESPONSE TEXT: Acute respiratory failure due to sepsis Query created by: Angella Gilbert on 05/22/2024 6:08 AM Electronically signed by: Ryan Benitez MD 05/22/2024 8:35 AM [employer]10-29-2024 Plan of care note* Plan of Care - Bertrand Cleary - 05/21/2024 9:59 PM EDT Problem: Pain Goal: Patient goal is pain score less than 4, able to rest, and participant in treatment plan as appropriate Description: INTERVENTIONS: 1. Encourage patient or legal financial representative to report early pain and ask [...] per policy 9. Teach patient or legal financial representative interventions for comforting Outcome: Progressing Note: [...] hygiene technique 7. Identify and instruct patient/patient financial representative in use of appropriate isolation precautionsfor identified infection/symptoms 8. Provide and discuss with patient/patient financial representative on educational MDRO sheet 9. Encourage and monitor nutritional status daily and consult rail engineer if indicated 10. Implement neutropenic guidelines as needed 11. Review exposure to history of communicable disease and recent travel history on admission 12. Encourage annual influenza vaccine 13. Encourage pneumonia vaccine Outcome: Progressing Note: Evaluation of progress towards goal: Pt on ATBs. RN monitoring vital signs. [facility] CenterP[facility]10-29-2024 Procedure note* Serafin Ott RN - 05/21/2024 4:04 PM EDT Site Preparation: Site Marked: yes Other: left back Prepped with: Chloraprep - with dry time of 3 minutes prior to draping the patient Site Clipped: no Patient Draped: yes [facility]10-[facility] Procedure note* Serafin Ott RN - 05/21/2024 4:04 PM EDT Site Preparation: Site Marked: yes Other: left back Prepped with: Chloraprep - with dry time of 3 minutes prior to draping the patient Site Clipped: no Patient Draped: yes * STEPHEN Cobian - 05/21/2024 2:25 PM EDTAssociated Order(s): Central Line Insertion Post-Procedure Diagnose(s): Septic shock ([facility]) Images from the original note were [...] to verify the correct patient, procedure, equipment, manager technical support and site/side marked as required. Fire Risk [...] Interventions: none Proceduralist: Milton Garcia CNP 1st Submersible Pilot: Samantha Whitlye CNP ESTIMATED BLOOD LOSS: Less than 5cc [...] an easily collapsible vessel using ultrasound. A 7.0-guamanian 16 cm triple lumen catheter was inserted [...] Arterial Line Insertion Post-Procedure Diagnose(s): Septic shock ([facility]) PREOPERATIVE DIAGNOSIS: Septic shock Urosepsis Acute [...] to verify the correct patient, procedure, equipment, manager technical support and site/side marked as required. Fire Risk [...] STEPHEN Cobian 05/21/24 1423 documented in this encounterTrumbull [facility] Center10-29-2024 Nurse procedure note* Sedation Documentation - Serafin Ott RN - 05/21/2024 3:58 PM EDT Basic respiratory resuscitation equipment including Ambu bags, airway devices, suction, oxygen, blood pressure cuff appropriate to size of patient, fiberglass product tester, pulse oximetry, ETCO2, and reversal agents are available. An emergency resuscitation cart, advanced resuscitation medications and defibrillator are availablein the immediate area. [facility] [employer] [id number] Consult note* Esme Chen MD - 05/21/2024 2:35 PM EDTAssociated Order(s): IP CONSULT TO UROLOGY Urology Consultation Patient: Sharri Murillo Date of : 1955 CHIEF COMPLAINT: left ureteral stone, sepsis HISTORY OF PRESENT ILLNESS: The patient is a 68 y.o. female who presented to [facility] with history of recent UTI on 05/16 [...] ureter or renal pelvis. Pt transferred to [facility] as she has required Vasopressor for hypotension. [...] Interpersonal Safety: Unknown (09/14/2023) Received from [facility] Safety & Environment Fear of Current [...] pelvis- Marked left hydro and hydroureter to [id number] UVJ stone. Possible additional proximal stone, + leftrenal stone Assessment and Plan Impression: 68 yo female with obstructing left distal ureterovesical junction stone with hydroureteronephrosis,+UTI, acute kidney injury Plan: IR consulted for left percutaneous nephrostomy tube emergently, placed and draining, culture sent Continuous supportive care, broad-spectrum antibiotics, ICU support We will need outpatient intervention of stone either here or in [place], also has left nonobstructing kidney stone No further acute urologic intervention needed at this time, will monitor - SHAHZAD LEI 05/21/24 3:04 PM Attending Attestation: I personally performed the face to face diagnostic evaluation on this patient. I have reviewed the advanced practice practitioner's history, exam, and MDM and agree with the assessment and plan as written. [facility]10-29-[facility] Procedure note* STEPHEN Cobian - 05/21/2024 2:25 PM EDTAssociated Order(s): Central Line Insertion Post-Procedure Diagnose(s): Septic shock ([facility]) Images from the original note were [...] to verify the correct patient, procedure, equipment, manager technical support and site/side marked as required. Fire Risk [...] Interventions: none Proceduralist: Milton Garcia CNP 1st Submersible Pilot: Samantha Whitley CNP ESTIMATED BLOOD LOSS: Less [...] an easily collapsible vessel using ultrasound. A 7.0-guamanian 16 cm triple lumen catheter was inserted [...] Same as above STEPHEN Cobian 05/21/24 1427 [facility]10-29-2024 Procedure note* STEPHEN Cobian - 05/21/2024 2:19 PM EDTAssociated Order(s): Arterial Line Insertion Post-Procedure Diagnose(s): Septic shock ([facility]) PREOPERATIVE DIAGNOSIS: Septic shock Urosepsis Acute [...] to verify the correct patient, procedure, equipment, manager technical support and site/side marked as required. Fire Risk [...] Same as above STEPHEN Cobian 05/21/24 1423 [facility]10-[facility] History and physical note* Ryan Benitez MD - 05/21/2024 1:35 PM EDT Consultation Note [facility] Critical Care Referring physician: Fabien Rivera Patient - Sharri Murillo Age - 68 y.o. - 1955 [facility] # - [id number] Date of Admission - 05/21/2024 12:52 PM [...] hydronephrosis. Patient was given antibiotics and transferred [facility] for further management. Seen and [...] titration of care by a Critical Care Packing Checker. Failure to do so may result in further organ system failure, imminent deterioration, or . Ryan Benitez MD [facility] Phys[facility] Pulmonary and Sleep Pulmonary / Critical Care Pager: [phone] Office : [phone] Fax : [phone] 05/21/24 1:35 PM [facility]10-29-[facility] History and physical note* Ryan Benitez MD - 05/21/2024 1:35 PM EDT Consultation Note [facility] Critical Care Referring physician: Fabien Rivera Patient - Sharri Murillo Age - 68 y.o. - 1955 [facility] # - [id number] Date of Admission - 05/21/2024 12:52 PM [...] hydronephrosis. Patient was given antibiotics and transferred [facility] for further management. Seen and [...] titration of care by a Critical Care Packing Checker. Failure to do so may result in further organ system failure, imminent deterioration, or . Ryan Benitez MD [facility] Sleep Pulmonary / Critical Care Pager: [phone] Office : [phone] Fax : [phone] 05/21/24 1:35 PM documented in this encounterTrumbull [facility] Center06-25-2024 Hospital Discharge instructions Patient Education 01/16/2024 12:15:59 [...] include: ?8 oz (237 mL) of milk, rhdanjm-adbsjgwzlqjp-qtrkg milk, and calcium- fortifiedfruit juice. Calcium-fortified means [...] ?Spinach (cooked), rhubarb, beets, sweet potatoes, and Lithuanian chard. ?Peanuts. ?Potato chips, guamanian fries, and baked potatoes with skin on. ?Nuts and nut products. ?Chocolate. If you regularly take a diuretic medicine, make sure to eat at least 1 or 2 servings of fruits or vegetables that are high in potassium each day. These include: ?Avocado. ?Banana. ?Walnut, prune, carrot, or tomato juice. ?Baked potato. [...] magnesium, fish oil, or vitamin B6. Take cxfq-mqh-xoxnbmz and prescription medicines only as told by [...] Casseroles. Pizza. Lasagna. Frozen meals. Potato chips. Cymraes fries. The items listed above may not [...] provider. Document Revised: 10/20/2022 Document Reviewed: 10/20/2022 Recorded Future Patient Education 2022 [employer] Follow Up Care 08/10/2022 15:34:44 With:THUY CAMPBELL PA-C, URL Address: [address] [place] [address] When: Unknown [facility] evaluation + Plan note Future Appointments Appointment Date:01/10/2024 03:00:00 PM Scheduled Provider:THUY CAMPBELL PA-C Location:[facility] Appointment Type:URO Office Visit Diagnostic Tests Pending * [facility] note[facility] InformationNort [employer] Other Evaluation noteNo assessment information available [facility] Work Phone: Evaluation note* Diagnosis Onset Date Resolution Status Influenza B noneactiveBronchitisacute [facility] Work Phone: Evaluation note* Diagnosis Onset Date Resolution Status Hypertension acuteScreening mammogram for breast canceracute [facility] Work Phone: Evaluation note* Diagnosis Calculus of ureterovesical junction (UVJ)- Primary Hypokalemia- Primary Hypopotassemia Calculus of ureterovesical junction (UVJ) Calculus of ureterovesical junction (UVJ) documented in this encounter [facility]* Diagnosis Flank pain- Primary Abdominal pain, unspecified site [facility]* Diagnosis Septic shock (CMS-HCC)- Primary Septic shock ([facility]) E coli bacteremia Nephrolithiasis Calculus of kidney documented [facility] encounter [facility]* Diagnosis Calculus of ureterovesical junction (UVJ)- Primary Septic shock (CMS-HCC) Bacteremia- Primary Septic shock (CMS-HCC) Calculus of ureterovesical junction (UVJ) documented [facility] encounter [facility]* Diagnosis Calculus of ureterovesical junction (UVJ)- Primary documented [facility] encounter [facility]* Diagnosis Kidney stones- Primary Calculus of kidney Pelvicaliectasis Other specified disorder of kidney and ureter Kidney stone Calculus of kidney documented [facility]* Diagnosis Kidney stones- Primary Calculus of kidney Pelvicaliectasis Other specified disorder of kidney and ureter Kidney stone Calculus of kidney 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 Kidney stone Calculus of kidney documented [facility] encounter [facility]* Diagnosis Kidney stones- Primary Calculus of kidney Pelvicaliectasis Other specified disorder of kidney and ureter Kidney stone Calculus of kidney 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 No data available for this section [facility]* Attachments The following attachments cannot be sent through Care Everywhere. * E. coli Infection (Irish) documented in this encounterPro[facility] SystemInstructionsNot on file documented in this encounterHarrison [facility] SystemInstructionsNot on file documented in this encounterHarrison [facility] Hospital SystemInstructionsNot on file documented in this encounterH[facility] SystemInstructionsNot on file documented in this encounterH[facility] SystemInstructionsNot on file documented in this encounterProMer[facility] SystemInstructionsNot on file documented in this encounterProMer[facility] SystemInstructionsNot on file documented in this encounterHarrison [facility] Hospital SystemInstructions* Attachments The following attachments cannot be sent through Care Everywhere. * Kidney Stone Diet (Irish) documented in this encounterProMercy [facility] Hospital SystemInstructionsNot on file documented in this encounterHarrison Community Hospital SystemInstructionsNot on file documented in this encounterHarrison Community Hospital SystemProgress note No data available for this section [facility] (narrative)* Misc (Routine) - Pending ReviewSpecialtyDiagnoses / ProceduresReferred By ContactReferred To Contact Procedures Adult diet Tabby Iqbal MD [address] [place] [address] Phone: tel: fax: Referral IDStatusReasonStart DateExpiration DateVisits RequestedVisits [id number] [facility] for referral (narrative)No reason for referral information availableParkwood Hospital Work Phone: Reason for visit Narrative* Auth/Cert (Routine) SpecialtyDiagnoses / ProceduresReferred By ContactReferred To Contact Diagnoses Septic shock (CMS-HCC) Elevated troponin Septic Shock Ryan Benitez MD [address], [address] [place] [address] Phone: tel: fax: Referral IDStatusReasonStart DateExpiration DateVisits RequestedVisits [id number] [facility] Summary Purpose Family History No Family History [...] Advance Directives No August 4:03pm Date ActivatedDate TgoplkqqgpyDfiuihzb11/5/2024 7:46 PM06/28/2024 9:02 PMDate ActivatedDate CbalmgfbeegBssjciyn57/29/2024 1:36 PM05/26/2024 7:56 PMDate ActivatedDate HkoodsgziqkKvqgzctq55/5/2024 7:46 PM06/28/2024 9:02 PMDate ActivatedDate QysuthvotbrMwbytrbt36/29/2024 1:36 PM05/26/2024 7:56 PM Advance Directive Response Recorded Date/ Time Advance Directives No August 3:03pm Date ActivatedDate AlpabusyreuMaomvjwa24/29/2024 1:36 PMDate ActivatedDate DwuqavmmvjyLvgveqtu91/29/2024 1:36 PMDate ActivatedDate InactivatedComments 05/21/2024 1:36 PM05/26/2024 [...] section and content) DATE CREATED AUTHOR 02/27/2021 [facility] DATE CREATED AUTHOR AUTHOR'S ORGANIZ ATION 08/09/2022 [facility] DATE CREATED AUTHOR AUTHOR'S ORGANIZ ATION 09/12/2024 [facility] DATE CREATED AUTHOR AUTHOR'S ORGANIZ ATION 12/22/2024 [facility] DATE CREATED AUTHOR AUTHOR'S ORGANIZ ATION 02/09/[address] [facility] DATE CREATED AUTHOR AUTHOR'S ORGANIZ ATION 04/09/2025 [facility] DATE CREATED AUTHOR AUTHOR'S ORGANIZ ATION 04/18/2025 [facility] DATE CREATED AUTHOR AUTHOR'S ORGANIZ ATION 06/05/2025 [facility] Patient Care team informatio n (unrecognized section and content) Team Status: Active Member Role Status Dates Olman Shoemaker MD Primary Care Provider Active Team Status: Inactive Member Role Status Dates Olman Shoemaker MD Primary Care Provider Active Start: April 08, 2025 End: April 08, [address] CommunityAttreplaced by [facility] ProviderActiveStart: April 08, 2025 End: April 08, [...] 2023 End: October 25, 2023Thuy Chaney APRN REFINING ENGINEER-CAttending ProviderActive Start: October 25, 2023 End: October 25, 2023 Team Status: Inactive Member Role Status Dates Olman Shoemaker MD Primary Care Provide r, Attending Provider Active Start: May 16, 2024 End: May 16, 2024Team MemberRelationshipSpecialtyStart DateEnd Date Olman Shoemaker MD [address] [id number] PCP - GeneralFamily Rwsmxjgv87/29/24Team MemberRelationshipSpecialtyStart Date End Date Olman Shoemaker MD [address] [place] [address] PCP - GeneralFamily Isantucu95/29/24Team MemberRelationshipSpecialtyStart Date End Date Olman Shoemaker MD [address] [facility] [place] [address] PCP - GeneralFamily Ghvzprqm50/29/24Team MemberRelationshipSpecialtyStart Date End Date Olman Shoemaker MD [address] [facility] [place] [address] PCP - GeneralFamily Jttdedhw15/29/24Team MemberRelationshipSpecialtyStart Date End Date Olman Shoemaker MD [address] [facility] [place] [address] PCP - GeneralFamily Azqfiius37/29/24Team MemberRelationshipSpecialtyStart Date End Date Olman Shoemaker MD [address] [place] [address] PCP - GeneralFamily Zrutrgkg19/29/24Team MemberRelationshipSpecialtyStart Date End Date Olman Shoemaker MD [address] [facility] [place] [address] PCP - GeneralFamily Zcifamhz92/29/24Team MemberRelationshipSpecialtyStart Date End Date Olman Shoemaker MD [address] [place] [address] PCP - GeneralFamily Umlnhhbt17/29/24Team MemberRelationshipSpecialtyStart Date End Date Olman Shoemaker MD [address] [place] [address] PCP - GeneralFamily Cmquchxr81/29/24Team MemberRelationshipSpecialtyStart Date End Date Olman Shoemaker MD [address] [place] [address] PCP - GeneralMercyone [facility] Medical Centerly Fftlxtiy32/29/24 Team Status: Active Member Role/Relationship Status Dates Olman Shoemaker MD Primary Care Provider Active Team Status: Inactive Member Role/Relationship Status Dates Olman Shoemaker MD Primary Care Provider Active Start: April 08, 2025 End: April 08, 2025Caro CenterAttending ProviderActiveStart: April 08, 2025 End: April 08, 2025 Team Status: Inactive Member Role/Relationship Status Dates Olman Shoemaker MD Primary Care Provider Active Start: May 20, 2025 End: May 20, 2025Olman Shoemaker MDAttreplaced by [facility] ProviderActiveStart: May 20, 2025 End: May 20, 2025 REASON FOR VISIT (unrecogniz ed section and content) PkbdpgEfnibxxhFkxvqp-ajUptnmeCajajzpoZttuxr-ga Goals (unrecognized section and content) Goals may [...] 0927 (Given - Provider: Disha Mckeon, MINNIE) drbxayxc-rggu-KA-calcium &mins (THERAGRAN-M) 9 mg iron-400 mcg tablet [...] pain scale 1-3, headaches, Starting on Mon05/21/24 [id number], Indications: fever, pain bisacodyL (DULCOLAX) suppository 10 [...] pain scale 1-3, headaches, Starting on Mon05/21/24 dl1765, Indications: fever, pain Or acetaminophen (TYLENOL) 650 [...] BE BASED ON THE PRIMARY CLINICAL RECORDS. [facility]. provides no warranty or guarantee of the accuracy or completeness of information in this document.
--- NOTE | 2025-06-18 11:43 | PM.CN ---
Consult Note: HPI Data of Consult Patient: known to practice within the last 3 years Consult date: 06/18/25 Requesting Physician: Zee Tamez NP Primary Care Provider: Hannah Lynn MD Consult Narrative Reason for consult: left thigh pain Narrative: 69yof who presents for evaluation. notes worsening pain throughout left thigh that is primarily exacerbated at night when she wakes up from sleep. has difficulty ambulating. recent lumbar xr shows multilevel ddd, spondylosis in lower lumbar spine. has engaged in chiropractic therapy, provider directed home exercises >6 weeks, without lasting benefit. uses otc meds. recently completed lumbar MRI with results below. noting pain up to 10/10 sharp stabbing HS. finding no significant benefit with tizanidne, ran out last night. cc:: CC: Zee Tamez NP Review of Systems ROS Musculoskeletal Reports: extremity pain PFSH PFSH Medical History (Updated 06/18/25 @ 11:45 by Zee Tamez NP) Hiatal hernia ?K44.9 - Diaphragmatic hernia without obstruction or gangrene (ICD-10) Kidney stone ?N20.0 - Calculus of kidney (ICD-10) Surgical History History of knee replacement ?Z96.659 - Presence of unspecified artificial knee joint (ICD-10) H/O hernia repair ?Z98.890 - Other specified postprocedural states (ICD-10) ?Z87.19 - Personal history of other diseases of the digestive system (ICD-10) History of hysterectomy ?Z90.710 - Acquired absence of both cervix and uterus (ICD-10) Meds Home Medications and Allergies Home Medications ?Medication ?Instructions ?Recorded ?Confirmed ?Type aspirin 81 mg tablet,delayed 81 mg PO DAILY 05/21/24 05/21/24 History release hydrochlorothiazide 25 mg tablet 25 mg PO DAILY 05/21/24 05/21/24 History meloxicam 15 mg tablet mg 05/21/24 History mirabegron 50 mg tablet,extended 50 mg PO DAILY 05/21/24 05/21/24 History release 24 hr (Myrbetriq) sumatriptan succinate 25 mg tablet 25 mg PO DAILY PRN migraine 05/21/24 05/21/24 History headache trospium 20 mg tablet 20 mg PO BID 06/03/25 06/03/25 History Allergies Allergy/AdvReac Type Severity Reaction Status Date / Time Sulfa (Sulfonamide Allergy Unknown Verified 06/03/25 10:42 Antibiotics) Exam Constitutional Documenting provider has reviewed patient's vital signs: yes Common normals: no apparent distress, oriented x3 and alert General appearance: cooperative HENMT Common normals: normocephalic, hearing grossly normal bilaterally and moist oral mucous membranes Head and scalp: normocephalic Eye Common normals: PERRL Pupil: PERRL Neck & C-Spine Common normals: full ROM General: normal visual inspection Chest Common normals: inspection of chest normal Respiratory Common normals: normal respiratory effort, no retractions and no use of accessory muscles Back & Pelvis Lumbar spine/lower back: straight leg raise positive left Other: strength 4/5 in LLE 5/5 in RLE radiculopathy noted to left L3,4,5 Neuro Common normals: oriented x3 Sensorium/orientation: alert Psych Common normals: mental status grossly normal, thought process normal, cooperative, affect normal, speech normal and activity/motor behavior normal Speech: normal speech Thought process: normal thought process Results Imaging lumbar MRI: Attestation: I have reviewed the pertinent imaging results. Radiologist's impression: There is 6 mm of anterolisthesis of L3 upon L4. There is 7 mm of retrolisthesis of L5 upon S1. There is preservation of vertebral body heights. There is moderate severe disc height loss at T11-T12. There is moderate disc height loss at L2-L3 with mild disc height loss at L3-L4. There is moderate to severe disc height loss at L5-S1. There is Modic type II fatty endplate degenerative change at L3-L4 and L4-5.. Modic type I endplate edema is noted at L2-L3. The conus terminates at the inferior endplate of the L1 vertebral body level. No epidural or paraspinous fluid collection is appreciated. Simple cysts are noted in the renal cortices requiring no further follow-up. At T12-L1: There is a normal disc, central canal, and neural foramen. At L1-L2: There is a normal disc, central canal, and neural foramen. At L2-L3: There is a broad-based disc bulge with facet hypertrophy, ligament flavum thickening, and bilateral facet effusions. There is moderate to severe spinal canal narrowing with moderate bilateral neural foraminal narrowing. At L3-L4: There is a circumferential disc bulge. There is facet hypertrophy and ligamentum flavum thickening. There is moderate to severe spinal canal stenosis with mild bilateral neural foraminal narrowing. At L4-L5: There is a circumferential disc bulge with facet hypertrophy and ligamentum flavum thickening. There is mild spinal canal narrowing with moderate right and mild left neural foraminal stenosis. At L5-S1: There is a circumferential disc bulge. There is facet hypertrophy. There is mild spinal canal stenosis with mass effect on the traversing S1 nerve roots, right greater than left. There is moderate bilateral neural foraminal narrowing. Additional Findings Additional findings: If on a controlled substance or opioids, I have checked an [place] report on this patient and there are no aberrancies noted in the prescribing history.??If on a controlled substance or opioid a drug screen was completed and reviewed within the last year, and if there has not been a drug screen completed we ordered one today to monitor higher risk, state monitored pain medication use. As part of providing excellent, safe, comprehensive care, the following was completed at our patient's visit: 1. A medication reconciliation and review to ensure accurate knowledge of current/active medications, including asking our patients to inform us about any ywnh-ovk-eynvrlj medications or herbal remedies/nutritional supplements/alternative remedies. 2. A review to specifically ensure our patients have had annual screening for screening for depression, screening for tobacco use, and screening for unhealthy alcohol use. For concerning screenings had a discussion with the patient, provided patient education, and recommended follow-up with primary care provider when appropriate. If patient noted with a risk of falling, they received education on strength, gait, and balance training to prevent future risk of falling. Portions of this note may have been carried over from the previous visit and updated as appropriate. Please note this office utilizes paper charting in addition to the electronic medical record. A list of current medications, vitals, and PMH is available there as the clinical staff outside of myself do not have access to [facility] charting during the clinic day operations. As part of providing quality comprehensive care the current medications, vitals, and PMH were reviewed in the paper chart. Assessment and Plan Assessment and Plan (1) Lumbar stenosis with neurogenic claudication: (2) Myalgia, other site: (3) Lumbar spondylosis: Plan The patient has had over 3 months of moderate to severe LLE pain with functional impairment and inadequate response to conservative care including NSAIDS (unless there are contraindication such as concurrent blood thinners), multiple oral or topical pain medications, and home exercise program/physical therapy.? Patient has completed >6 weeks of guided home exercise program and/or formal physical therapy program without relief of their symptoms.? The Oswestry Disability Index was completed, and the patient scored a 26%.? Lumbar MRI reviewed with pt, declining NS consultation at this time. update lumbar xray with flexion to assess stability with listhesis dc tizanidine, start baclofen 5-10mg hs prn pain/spasms proceed with left L3.4 L4,5 TFESI under fluoroscopy for lumbar stenosis with NC f/u after procedure
== END 2025-06-18 11:01 | disposition home or self-care (01) ==
LOC: PM 11:00
PROVIDERS: PCP Family Medicine; Visit Provider Nurse Practitioner
DX: M48.062 Spinal stenosis, lumbar region with neurogenic claudication (principal); M79.18 Myalgia, other site; M47.816 Spondylosis without myelopathy or radiculopathy, lumbar region
CPT/HCPCS: G0463

== ENCOUNTER 2025-06-23 11:09 | Outpatient (OUT) | payer MEDICARE, SELFPAY ==
--- OUTSIDE RECORDS SUMMARY | 2025-06-23 11:14 | XMS_ITS | Clinical Summary ---
Author Organization [employer] Address [id number] [address] [place] [address] Care Team Providers Care Security System Sales Consultant Name Role Phone Hannah Lynn MD Primary Care Provider [phone] Allergies Active AllergyReactionsCriticalityNoted DateCommentsSulfa (Sulfonamide Antibiotics)IaoacJlr10/03/2024 Medications MedicationSigDispense QuantityRefillsLast FilledStart DateEnd DateStatus aspirin [...] by mouth daily Indications: visible water retention.10/14/2023ctive ymqmrhvw-wivt-MA-calcium &mins (THERAGRAN-M) 9 mg iron-400 mcg tablet [...] bedtime.5Active Active Problems ProblemNoted DateDiagnosed DateMineral metabolism bjotlyll88/10/2025 Overview (02/05/2025): ==== 02/05/2025 ==== 24 urine [...] to see a doctor that goes to [place]. Calculus of ureterovesical junction (UVJ)05/30/2024Septic shock05/21/2024 Immunizations ImmunizationAdministration DatesNext DueZoster Vaccine Enlniffbtux46/17/2023, 02/07/2023 Family History Medical HistoryRelationNameCommentsNephrolithiasisBrother 1CancerFatherProstate cancerFatherDiabetesMotherPeripheral [...] (1 standard drink = 0.6 oz pure alcohol)[facility] UtilitiesAnswerDate RecordedIn the past 12 months [...] or more drinks on one occasion?Never06/27/2024HQ-2AnswerDate RecordedTotal Tvvhi31208/28/2023RAPARE - TransportationAnswerDate RecordedIn the past 12 months, [...] as a part of a household?No06/27/2024hildcareAnswer Date JzihrcxnMjjpnvstuJdjaacn83/13/2019EmploymentAnswerDate RecordedEmployment Moeoilu6601/03/2019Hunger ScreeningAnswerDate RecordedWithin the past 12 months we worried whether our food would run out before we got money to buy more.Never True02/05/2025Within the past 12 months the food we bought just didn't last and we didn't have money to get more.Never True02/05/2025Purpose - LifeAnswerDate RecordedPurpose and direction in rkecFbwinmp35/11/2021CommentsNoSex and Gender InformationValueDate RecordedSex Assigned at BirthNot on fileLegal Sex Hqpyhe5005/08/2018 4:09 PM EDTGender IdentityNot on fileSexual OrientationNot on file Last Filed Vital Signs Vital SignReadingTime TakenCommentsBlood Obqiewvp766/9902/05/2025 12:14 PM EDT Pt. states they had a difficult drive to this office.Wpzvn578502/05/2025 12:14 PM JQBEadpaixotnr65.8 ??C (98.3 ??F)09/11/2024 7:06 AM ESTRespiratory Rate18 09/11/2024 7:47 AM ESTOxygen Zlwzsjzcee39%09/11/2024 7:47 AM ESTInhaled Oxygen Concentration--Kkvolh537.4 kg (314 lb)02/05/2025 12:14 PM WPLUvvrxo665.2 cm (5' 7 )02/05/2025 12:14 PM EDTBody Mass Index49.18002/05/2025 12:14 PM EDT Plan of Treatment DateTypeDepartmentCare Team (Latest Contact Info)Yufucytjrby58/27/2026 1:00 PM EDTOffice Visit [facility] [address] [place] [address] [place] [address] [place] [address] Omar Preston MD [facility] [place] [address] Health MaintenanceDue DateLast DoneCommentsAdult BMI Follow Up Plan12/11/1975 DTaP,Tdap and Td Vaccines (1 - Tdap)1976RSV ( or age 60+ yrs) (1 - Risk 60-74 years 1-dose series)2017Fall Risk Sjbvhoini66/20/2023OVID-19 Vaccine (2 - season)/03/2021Influenza Chzfnji0703/24/2025 Depression Lgjqzrafj22/dult BMI Ahwfrydre91/ Tobacco Evscsvrxc68/Zoster (Shingles) VaccineCompleted 06/09/2023, 02/07/2023 Goals GoalPatient Goal TypeAssociated ProblemsRecent ProgressPatient-Stated?Author Return Home Tess Peterson, RN Note: Evaluation of progress towards goal: safe transition home with home care and support. Medical Devices ExplantedTypeAreaManufacturerDevice IdentifierShelf Expiration DateModel / Serial / LotStent Uret 6fr 26cm 2 Pgtl Crv Rdpq Pstnr Mfl [facility] - [id number] Implanted:Qty: 1 on 06/28/2024 by Ronaldo Chen MD at [facility] Explanted:Qty: 1 on 08/08/2024 by [facility]: [employer] Dqtijjobkqbt32/23/[id number] / / [id number]:NO STRINGSStent Uret 6fr 26cm 2 Pgtl Crv Rdpq Pstnr Mfl [facility] [id number] Implanted:Qty: 1 on 08/08/2024 by Ronaldo Chen MD at [facility] Explanted:Qty: 1 on 09/11/2024 by [facility]onaldo [facility] MD [facility] Hamiltonft: [employer] Enukikyzfpyv91/07/[id number] / / [id number] Insurance Advance Directives * Full Code (Latest Code Status on File) Date ActivatedDate LthhnqszliaYugjvuqv64/5/2024 7:46 PM06/28/2024 9:02 PM * Full Code Date ActivatedDate EemrkxpdnsqCuadlltb37/29/2024 1:36 PM05/26/2024 7:56 PM Care Teams Team MemberRelationshipSpecialtyStart DateEnd Date Hannah Lynn MD [address] [place] [address] PCP - GeneralFamily Qrlhnghw92/29/24
--- OUTSIDE RECORDS SUMMARY | 2025-06-23 11:14 | XMS_ITS | Clinical Summary ---
Author Organization [facility] Address [address] [place] [address] Care Team Providers Care Inspector Finishing Name Role Phone Unavailable Primary Care Provider Unavailabl e Social History Tobacco UseTypesPacks/DayYears UsedDateSmoking Tobacco: Never Assessed CommentsUnknownSex and Gender InformationValueDate RecordedSex Assigned at Not on fileLegal UytHtsbyz03/15/2023 7:31 PM EDTGender IdentityNot on fileSexual OrientationNot on file Last Filed Vital Signs Vital SignReadingTime TakenCommentsBlood Pressure--Pulse--Temperature-- Respiratory Rate--Oxygen Saturation--Inhaled Oxygen Concentration--Coxdcn164 kg (289 lb)06/18/2018 12:00 PM VUZCmsvwj225.7 cm (5' 8 )06/18/2018 12:00 PM ESTBody Mass Index43.9406/18/2018 12:00 PM EST Plan of Treatment Not on file
--- OUTSIDE RECORDS SUMMARY | 2025-06-23 11:14 | XMS_ITS | Clinical Summary ---
Author Organization [facility] Address [address] [place] [address] Care Team Providers Care Yard Jockey Name Role Phone Unavailable Primary Care Provider Unavailabl e Social History Tobacco UseTypesPacks/DayYears UsedDateSmoking Tobacco: Never AssessedUT Safety & EnvironmentAnswerDate RecordedFear of Current or Ex-PartnerNot on file 09/14/2023Emotionally AbusedNot on file09/14/2023hysically AbusedNot on file 09/14/2023Sexually AbusedNot on file09/14/2023hysically or Sexually AbusedNot on file09/14/2023CommentsUnknownSex and Gender InformationValueDate RecordedSex Assigned at BirthNot on fileLegal NtzKqdivv73/29/2022 10:32 PM EDT Gender IdentityNot on fileSexual OrientationNot on file Last Filed Vital Signs Vital SignReadingTime TakenCommentsBlood Vbgvatxo029/7308 1:49 PM EDT Smpjd205703/10/2021 1:49 PM GBNSjvgdfvcovg03.6 ??C (97.9 ??F)03/10/2021 1:49 PM EDTRespiratory Rate--Oxygen Saturation--Inhaled Oxygen Concentration--Uhzblb637 kg (320 lb)03/10/2021 1:47 PM NQPXchvie153.7 cm (5' 8 )03/10/2021 1:47 PM EDT Body Mass Index48.66003/10/2021 1:47 PM EDT Plan of Treatment Health MaintenanceDue DateLast DoneCommentsCT Arryhlpvanjp71/20/1958Colonoscopy 1957Colorectal Cancer Jqgtxhqhb13/20/1958FIT-DNA1957FIT1957 FOBT1957 4296Hwhrydsjtcuqm32/20/1958Depression Rqmwtbqna73/20/1970Adult Tetanus 12/11/19795707Fxfeyclob96/20/1998Pneumococcal Vaccine: 50+ Years (1 of 1 - PCV) 12/11/2007Zoster Vaccines (1 of 2)12/11/2007Fall Risk Hiemxcbzw52/20/2023COVID- 19 Vaccine (1 - 2024- season)2025Influenza Vaccine [...]
--- OUTSIDE RECORDS SUMMARY | 2025-06-23 11:37 | XMS_ITS | CCD ---
Author Organization [facility] Care Team Providers Care Cycle Touring Guide Name Role Phone SIDNEY PAGAN Attending Unavailable OLMAN SHOEMAKER Primary Care Unavailable OLMAN SHOEMAKER Referring Unavailable SIDNEY PAGAN Admitting Unavailable SIDNEY PAGAN Surgeon Unavailable OLMAN SHOEMAKER Primary Care Unavailable OLMAN SHOEMAKER Referring Unavailable [place] Procedure Practitioner Unavailab SIDNEY Jasso Admitting Unavailable [...] Consulting Unavailable OLMAN SHOEMAKER Primary Care Physician [phone] Olman Shoemaker Unavailable Olman Shoemaker MD Primary [...] Unavailable SHOEMAKER, OLMAN E Primary Care Unavailable LCO MARIA I Attending Unavailable SHOEMAKER, OLMAN E Referring Unavailable SHOEMAKER, OLMAN E Primary Care Unavailable ALEKSANDRA SANDOVAL Attending Unavailable ASHARA, OLMAN E Referring Unavailable SHOEMAKER, OLMAN E Primary Care Unavailable ALEKSANDRA SANDOVAL Attending Unavailable SHEOMAKER, OLMAN E Referring Unavailable SHOEMAKER, OLMAN E Primary Care Unavailable Olman Shoemaker MD Primary Care Provider Community, Outreach Attending Provider Community, Outreach Attending Unavailable Community, Outreach Admitting Unavailable Sahara, Olman E Primary Care Unavailable THUY CAMPBELL Attending Unavailable Olman Shoemaker MD Attending Provider Zhen Mendoza MD Attending Unavailable Allergies Allergy ClassificationReported Allergen(s)Allergy TypeDate of OnsetReaction(s) FacilitySulfonamides (antibiotic) (1 source)Sulfonamides (Antibiotic); Translations: [SULFA (SULFONAMIDE ANTIBIOTICS)]Drug Fseffpo02-51-9551Jqb [facility] (1 source)Sulfonamides (Antibiotic)Drug allergy (disorder)[facility] Repository (3 sources)Sulfonamides (Antibiotic); Translations: [sulfa drugs]Drug allergy Unknown (qualifier value)[facility] (18 sources)Substance with sulfonamide structure and antibacterial mechanism of action (substance)Drug [id number], Other (See Comments)[employer] Other (3 sources)patient allergy list reviewed by nurse or physiciaPropensity to adverse nbjsbocqm60-98-1346Mexavrh:[employer] Other (3 sources)Allergies ReconciledPropensity to adverse reactionsUnknoSt. Louis Behavioral Medicine Institute [employer] Other (7 sources)Sulfonamides (Antibiotic); Translations: [SULFA (SULFONAMIDE ANTIBIOTICS)]Propensity to adverse reactions to drug (disorder)10-25-2023 [facility] Repository Medications Current Medications MedicationDrug Class(es)DatesSig (Normalized)Sig (Original)Acetaminophen (1 source)Start: 41-57-3251voohhwwtcfkca (TYLENOL) tablet 650 mgascorbic acid 1000 mg oral tablet (15 sources)Vitamin Ctake 1 tablet by mouth in the morningascorbic acid, vitamin C, (VITAMIN C) 1000 mg tablet Take 1 tablet (1,000 mg total) by mouth in the morning. Activeaspirin 81 mg chewable tablet (20 sources)Platelet Aggregation Inhibitor, Nonsteroidal Anti-inflammatory Drug Start: 53-37-7871cgkv 1 tablet by mouth once dailyAspirin 81 mg tablet,chewable Active 81 MG PO Daily October 14, 2023 12:00am Complies with drug therapyStart: 39-42-2645mswu 1 tablet by mouth once dailyaspirin 81 mg Oral EC Tab 81 mg = 1 tab(s), Oral, Daily, Refills(s) 0 Start Date: 12/17/19 Status: OrderedBaby Aspirin Activebisacodyl 10 mg rectal suppository (1 source)Stimulant LaxativeStart: 31-32-7487zkqc 10 mg by mouth once daily as needed for rvjxsocfoyea55 mg, rectal, Daily PRN, constipation, Constipation if polyethylene glycol is ineffective or patient is unable to take oral medications, Starting on Mon05/21/24 at 1333, Look-alike/sound-alike medication - verify indication for use.Calcium Gluconate (1 source)Start: 28-31-3795mnrjlyl gluconate IVPB 1000 mg/50 mL (20 mg/mL premix)cefTRIAXone (ROCEPHIN) 2,000 mg in sodium chloride 0.9 % 50 mL IVPB-MBP (1 source)Start: 88-31-9557sfkr 2000 mg intravenously every twenty-four hours 2,000 [...] IVPB MINI-BAG Plus (4 sources)Start: 05-24-2024 End: 45-09-8710zkxo 2000 mg intravenously every twenty-four hourscefTRIAXone 2,000 mg in sodium chloride 0.9 % 50 mL IVPB MINI-BAG Plus Infuse 2,000 mg into a venous catheter daily for 11 days. WBC, platelet, creatinine, LFT weekly while on antibiotic, faxed to [facility] [phone]. IV flushes as per protocol 1 each 05/24/2024 06/04/2024 ActiveStart: 05-24-2024 End: 20-40-1292jjye 2000 mg intravenously every twenty-four hourscefTRIAXone 2,000 mg in sodium chloride 0.9 % 50 mL IVPB MINI-BAG Plus Infuse 2,000 mg into a venous catheter daily for 11 days. WBC, platelet, creatinine, LFT weekly while on antibiotic, faxed to [place] [phone] . IV flushes as per protocol 1 each 05/24/2024 06/04/2024Start: 05-24-2024 End: 49-16-0035qsow 2000 mg intravenously every twenty-four hourscefTRIAXone 2,000 mg in sodium chloride 0.9 % 50 mL IVPB MINI-BAG Plus Infuse 2,000 mg into a venous catheter daily for 11 days. WBC, platelet, creatinine, LFT weekly while on antibiotic, faxed to [place] [address] . IV flushes as per protocol 1 each 05/24/2024 05/24/2024 DiscontinuedCentrum MultiGummies Women (2 sources)Start: 00-29-2856Qumefiw MultiGummies Women See Instructions, Refill(s) 0, one po daily Start Date: 12/17/19 Status: Orderedcholecalciferol 0.05 mg oral tablet (16 sources)Vitamin DStart: 58-83-0626wnhl 2000 [IU] by mouth once daily2,000 Units, oral, Daily, First dose on Mon05/23/24 at 2100take 1 tablet by mouth in the morningcholecalciferol, vitamin D3, 2,000 units tablet Take 1 tablet (2,000 Units total) by mouth in the morning. Activeciprofloxacin 500 mg oral tablet (1 source)Quinolone AntimicrobialStart: 06-29-2024 End: 65-62-4994fkpp 1 tablet by mouth in the morning, [...] 5000 unt/ml injection (1 source)Unfractionated Heparin, Anti-coagulantStart: 73-95-4729bcbzgy 5000 [IU] by subcutaneous injection every eight hours5,000 Units, subcutaneous, Every 8 hours scheduled, First dose on Mon05/22/24 at 0600, Look-alike/sound-alike medication - verify indication for use. Observe for bleeding.hyoscyamine sulfate 0.125 mg sublingual tablet (1 source)Start: 65-37-1011yofo 1 tablet by mouth every four hours as needed hyoscyamine (LEVSIN) 0.125 mg SL tablet Take 1 tablet (125 mcg total) by mouth every 4 (four) hoursas needed for cramping. 30 tablet 08/08/2024 Active levoFLOXacin 500 mg oral tablet (1 source)Quinolone AntimicrobialStart: 08-08-2024 End: 90-00-1550gnkr 1 tablet by mouth in the morninglevoFLOXacin (LEVAQUIN) 500 mg tablet Take 1 tablet (500 mg total) by mouth in the morning for 5 days. 5 tablet 08/08/2024 08/13/2024 Activemagnesium sulfate IVPB 2000 mg/50 mL in iso- osmotic water (40 mg/mL premix) (1 source)Start: 24-12-0664yrrygaioz sulfate IVPB 2000 mg/50 mL in iso-osmotic water (40 mg/mL premix)oskqiaic-lyqf-TK-calcium &mins (THERAGRAN-M) 9 mg iron- 400 mcg tablet (15 sources)ygbreuch-hgqy-NO-calcium &mins (THERAGRAN-M) 9 mg iron-400 mcg tablet Take 1 tablet by mouth inthe morning. Ewpzoybyndrmac-loow-NS-calcium &mins (THERAGRAN-M) 9 mg iron-400 mcg tablet Take 1 tablet by mouth inthe morning.vuynxqeq-fusj-NL-calcium &mins (THERAGRAN-M) 9 mg iron-400 mcg tablet Take 1 tablet by mouth inthe morning. Mezbisbydjgwmhjwa-ktwy-YQ-calcium &mins (THERAGRAN-M) 9 mg iron-400 mcg tablet 1 tablet (1 source)Start: 83-38-8784icsy 1 tablet by mouth once daily1 tablet, oral, Daily, First dose on Mon05/23/24 at 4482Icjjlwsc-Pyp-Vb-Lycopen-Lutein (Complete Mv Adult 50 Plus) 0.4 mg-300 mcg- 250 mcg tablet (6 sources)Start: 97-37-5791eubs 1 tablet by mouth once daily Modjmhyk-Uiq-Ut-Lycopen-Lutein (Complete Mv Adult 50 Plus) 0.4 mg-300 mcg- 250 mcg tablet Active 1 TAB PO Daily October 14, 2023 12:00am Complies with drug therapyStart: 55-00-2513tjsr 1 tablet by mouth once dailyStart: 27-57-5059rtci 1 tablet by mouth once fnaxtFhpwfbbd-Tvi-Fu-Lycopen-Lutein (Complete Mv Adult 50 Plus) 0.4 mg-300 mcg- 250 mcg tablet Active 1 TAB PO Daily October 13, 2023 11:00pmStart: 20-31-1322hytl 1 tablet by mouth once daily Pogrqsrr-Toh-Cj-Lycopen-Lutein (Complete Mv Adult 50 Plus) 0.4 mg-300 mcg- 250 mcg tablet Active 1 TAB PO Daily October 14, 2023 12:00amMultivitamin Adults 50+ - (4 sources)Multivitamin Adults 50+ - Orally ActiveoxyCODONE hydrochloride 5 mg oral tablet (1 source)Opioid AgonistStart: 79-16-3082vikq 1 tablet by mouth every four hours as needed for pain5 mg, oral, Every 4 hours PRN, severe pain - pain scale 7-10, Starting on Mon05/22/24 at 0827, Look-alike/sound-alike medication - verify indication for use. Immediate release.polyethylene glycol 3350 16100 mg powder for oral solution (1 source)Osmotic LaxativeStart: 66-19-061991 g, oral, Daily PRN, constipation, Starting on Mon05/21/24 at 1333, Look-alike/sound-alike medication - verify indication for use. Dissolve 1 packet (17 gm) in 8 ounces of water, juice, soda, coffee or tea.Potassium Chloride (1 source)Start: 05-93-2371zpvktoegw chloride (K-TAB,KLOR-CON) CR tablet 20-50 mEqpotassium chloride IVPB 10 mEq/50 mL in water (0.2 mEq/mL premix) (1 source)Start: 43-80-3852ctfuqygqe chloride IVPB 10 mEq/50 mL in water (0.2 mEq/mL premix)Sodium Chloride (4 sources)Start: 38-23-0541cnuj 10 mL intravenously every twelve hourssodium chloride 0.9 % flush 10 mLStart: 05-21-2024 End: mL/hr, intra-arterial, Continuous, Starting on Mon05/21/24 at 1415, For 90 daysStart: 05-21-2024 End: 68-47-5827xuef 10 mL intravenously every hour as ucaqvg03 mL/hr, intravenous, Continuous PRN, to maintain patency of lines, Starting on Mon05/21/24 at 1325, For 1 day, Line #3sodium phosphate 20 mmol in sodium chloride 0.9 % 250 mL IVPB (1 source)Start: 95-19-2489riyewy phosphate 20 mmol in sodium chloride 0.9 % 250 mL IVPBSUMAtriptan 25 mg oral tablet (20 sources)Serotonin-1b and Serotonin-1d Receptor AgonistStart: 09-24-2024 Sumatriptan Succinate 25 mg tablet Active 0 .ROUTE .COMPLEX 9 September 24, 2024 1:33pm TAKE 1 TAB AT ONSET OF HEADACHE IF NO RELIEF MAY REPEAT 1 TAB AFTER 2HRS *MAX 4/24HR* Complies with drug therapyStart: 53-08-6952vsgw 1 tablet by mouth once as neededSUMAtriptan (IMITREX) 25 mg tablet Take 1 tablet (25 mg total) by mouth once as needed for migraine. 05/16/2024 ActiveStart: 05-16-2024 End: 53-80-9716nkav 1 tablet by mouth every two hoursSumatriptan Succinate 25 mg tablet Discontinued 0 PO .COMPLEX 9 May 16, 2024 12:00am September 24, 2024 1:33pm take 1 tab at onset of headache; if no relief may repeat 1 tab after at least 2 hrs; max = 4 tabs/24 hr POterbinafine 250 mg oral tablet (4 sources)Allylamine AntifungalStart: 09-04-0643rlvc 1 tablet by mouth every twenty-four hoursTerbinafine HCl 250 MG 1 tablet Orally Once a day for 10 day(s) Jan, ActivetiZANidine 2 mg oral tablet (1 source)Central alpha-2 Adrenergic AgonistStart: 05-36-3706atvb 1 tablet by mouth once daily at [...] MedicationDrug Class(es)DatesSig (Normalized)Sig (Original)500 ml albumin human, care home 50 mg/ml injection (1 source)Human Serum AlbuminStart: [...] oral tablet (6 sources)Macrolide AntimicrobialStart: 05-06-2025 End: 43-92-3792Bojioridiwzi 250 mg tablet Discontinued 0 PO .COMPLEX 6 0 May 06, 2025 12:00am May 20, 2025 10:14am For 250 mg dose pack: take 500 mg today (day 1), then 250 mg for 4 days (days 2-5) POStart: 10-25-2023 End: 79-94-8334Fppskflddqba 250 mg tablet Discontinued 250 MG PO daily 6 5 0 October 25, 2023 12:00am April 10:40am Bronchitis Bronchitis, not specified as acute or chronic Take 2 tablets today and then1 tablet for the next 4 daysbenzonatate 200 mg oral capsule (5 sources)Non-narcotic AntitussiveStart: 10-25-2023 End: 11-93-1528fpdl 1 capsule by mouth three times daily [...] System Stimulant, Ergotamine Derivative, MethylxanthineStart: 10-14-2023 End: 33-53-0201axfc 1 tablet by mouth once as neededErgotamine-Caffeine 1-100 mg tablet Discontinued 1 TAB PO Once as needed October 14, 2023 12:00am May 16, 2024 12:33pm FreeTextSig: Orally; Note: Source Status: Taking; Provider: Sahara Young ( )Start: 07-23-2012wqey 1 tablet by mouth every eight hours [...] Mon05/21/24 at 2030,For 1 doseStart: 05-21-2024 End: 84-56-3502klde 100 mL intravenously every jkng475 mL/hr, intravenous, Continuous, Starting on Mon05/21/24 at 1345, For 1 daydiclofenac sodium 20 mg/ml topical solution (4 sources)Nonsteroidal Anti-inflammatory DrugStart: 72-47-5346Iyxmiczx 2 % 2 applications to affected area Transdermal Twice a day for 30 day(s) Aug, Not-Takingfamotidine 20 mg oral tablet (2 sources)Histamine-2 Receptor AntagonistStart: 05-22-2024 End: 74-75-8899vlqy 20 mg by mouth once daily20 mg, oral, Daily, First dose (after last modification) on Mon05/22/24 at 1630, Indication: Stress Ulcer ProphylaxisStart: 05-21-2024 End: 59-15-933893 mg, intravenous, Every 24 hours scheduled, First dose (after last modification) on Mon05/21/24 at 1600, Pharmacy to adjust dose based on renal function. Dilute to total volume of 5 mL with 0.9% sod chl and administer IVP over 2 minutes., Indication: Stress Ulcer Prophylaxis1 ml fentaNYL 0.05 mg/ml injection (3 sources)Opioid AgonistStart: 05-21-2024 End: 83-85-098176 mcg, intravenous, Once, On Mon05/21/24 at 2200, For 1 dose, Look-alike/sound-alike medication -verify indication for use.Start: 05-21-2024 End: 75-96-9157cdtp 50 ug intravenously every three hours as mcg, intravenous, Every 3 hours PRN, breakthrough pain, Starting on Mon05/22/24 at 0047, Look-alike/sound-alike medication - verify indication for use.24 hr fesoterodine fumarate 8 mg extended release oral tablet (20 sources)Start: 44-31-7807dtvi 1 tablet by mouth once dailyFesoterodine 8 mg tablet extended release 24 hr Active 0 .ROUTE .COMPLEX June 05, 2024 10:23am TAKE 1 TABLET BY MOUTH EVERY DAYStart: 21-09-3866goke 1 tablet by mouth every twenty-four hours in the morningfesoterodine (TOVIAZ) 8 mg tablet extended release 24 hr Indications: urinary urgency Take 1 tablet(8 mg total) by mouth in the morning. Indications: urinary urgency, or the sudden urge to urinate. 0 02/13/2024 ActiveStart: 02-13-2024 End: 42-86-4124rcbx 1 tablet by mouth once dailyFesoterodine 8 mg tablet extended release 24 hr Discontinued 0 .ROUTE .COMPLEX February 13, 2024 9:42am June 05, 2024 10:23am TAKE 1 TABLET BY MOUTH EVERY DAYStart: 02-13-2024 take 1 tablet by mouth once dailyFesoterodine Active 0 .ROUTE .COMPLEX February 13, 2024 10:42am TAKE 1 TABLET BY MOUTH EVERY DAYStart: 12-26-2023 End: 12-13-9362ssqk 1 tablet by mouth once dailyFesoterodine 8 mg tablet extended release 24 hr Discontinued 0 .ROUTE .COMPLEX 90 June 05, 2024 11:23am October 08, 2024 11:40am TAKE 1 TABLET BY MOUTH EVERY DAYStart: 12-26-2023 End: 15-98-1692mxwj 1 tablet by mouth once dailyFesoterodine 8 mg tablet extended release 24 hr Discontinued 0 .ROUTE .COMPLEX December 26, 2023 2:40pm February 13, 2024 9:42am TAKE 1 TABLET BY MOUTH EVERY DAYStart: 12-26-2023 End: 48-60-8209jiol 1 tablet by mouth once dailyFesoterodine Discontinued 0 .ROUTE .COMPLEX December 26, 2023 3:40pm February 13, 2024 10:42am TAKE 1TABLET BY MOUTH EVERY DAYStart: 12-13-2019 End: 60-20-9838dnsv 1 tablet by mouth once dailyFesoterodine (Toviaz) 8 mg tablet extended release 24 hr Discontinued 8 MG PO Daily October 14, 2023 12:00am November 27, 2023 8:37amToviaz 8mg Activegabapentin 100 mg oral capsule (7 sources)Anti-epileptic AgentStart: 05-22-2024 End: 04-06-4121eflq 1 capsule by mouth three times dailyGabapentin 100 mg capsule Discontinued 100 MG PO Three times daily May 30, 2024 1:00am May 20, 2025 10:14amhydroCHLOROthiazide 25 mg oral tablet (20 sources)Thiazide DiureticStart: 12-13-2019 End: 71-16-2781czge 1 tablet by mouth once dailyHydrochlorothiazide 25 mg tablet Discontinued 25 MG PO Daily October 14, 2023 12:00am August 5:18pm FreeTextSig: TAKE 1 TABLET DAILY; Note: Source Status: Start; Refills: 3; Qty: 90 Tablet; Provider: Sahara Young ( )hydrocortisone 100 mg injection (1 source)CorticosteroidStart: 05-21-2024 End: 23-28-1011hwhs 50 mg intravenously every six hours50 mg, intravenous, Every 6 hours, First dose on Mon05/21/24 at 2030, Administer over 30 seconds. May alter blood glucose or insulin requirements. Look-alike/sound-alike medication - verify indication for use.iohexoL (OMNIPAQUE) 300 mg iodine/mL (1 source)Start: 05-21-2024 End: 39-77-3122Uz needed, Starting on Mon05/21/24 at 1623, Intra-op10 ml lidocaine hydrochloride 10 mg/ml injection (1 source)Antiarrhythmic, Amide Local AnestheticStart: 05-21-2024 End: 43-06-2964kcnzjlijvjba, Code/trauma/sedation medication, Starting on Mon05/21/24 at 1614, Intra-opmeloxicam 15 mg oral tablet (20 sources)Nonsteroidal Anti-inflammatory DrugStart: 13-11-1298tquw 15 mg by mouth once daily15 mg, oral, Daily, First dose on Mon05/23/24 at 2100Start: 10-27-2023 End: 19-10-5914Ktrzrxybr 15 mg tablet Discontinued 0 .ROUTE .COMPLEX 90 August 26, 2024 5:17pm February 28, 2025 8:47am TAKE 1 TABLET DAILYStart: 94-76-6802Vnaxkifnl 15 mg tablet Active 0 .ROUTE .COMPLEX 90 October 27, 2023 10:00am TAKE 1 TABLET DAILYStart: 80-33-6774Tgioowedv Active 0 .ROUTE .COMPLEX 90 October 27, 2023 11:00am TAKE 1 TABLET DAILYStart: 12-17-2019 End: 11-78-7210ftqd 1 tablet by mouth once dailyMeloxicam 15 mg tablet Discontinued 15 MG PO Daily October 14, 2023 12:00am October 27, 2023 11:00am FreeTextSig: TAKE 1 TABLET DAILY; Note: Source Status: Taking; Refills: 3; Qty: 90 Tablet; Provider: Sahara Young ( )2 ml midazolam 1 mg/ml cartridge (1 source)BenzodiazepineStart: 05-21-2024 End: 99-94-2378mbglmbqhlqs, Code/trauma/sedation medication, Starting on Mon05/21/24 at 1610, Intra-op24 hr mirabegron 50 mg extended release oral tablet (20 sources)beta3-Adrenergic AgonistStart: 12-13-2019 End: 45-71-3683ceat 1 tablet by mouth once dailyMirabegron 50 [...] oral capsule (9 sources)Nitrofuran AntibacterialStart: 05-17-2024 End: 04-59-1635odpy 1 capsule by mouth twice daily at [...] Pyxis Override Pull (1 source)Start: 05-21-2024 End: 65-55-5473Ptdzrikd on Mon05/21/24 at 1257, For 1 dose, Jovany Wynne: cabinet override VESICANT (RED) Requires Smart Pump.oxybutynin chloride 5 mg oral tablet (11 sources)Cholinergic Muscarinic AntagonistStart: 10-08-2024 End: 12-40-8560bqgw 1 tablet by mouth once dailyOxybutynin Chloride [...] mg oral tablet (6 sources)Start: 10-14-2023 End: 24-25-2896wrfw 1 tablet by mouth twice dailyPrednisone 20 mg tablet Discontinued 20 MG PO Twice daily 10 5 0 October 14, 2023 12:00am October 25, 2023 9:34amSUPARTZ FX SODIUM HYALURONATE (20 sources)Start: 94-99-4283ZFJHASQ FX SODIUM HYALURONATE Dec, 25Start: 61-26-0395NTASZDQ FX SODIUM HYALURONATE November, 25 mgStart: 12-12-2016 SUPARTZ FX SODIUM HYALURONATE November, 25Start: 24-13-6478BHLTNNM FX SODIUM HYALURONATE November, 25 mgStart: 07-51-3015PDTSCYU FX SODIUM HYALURONATE November, 25 mgtamsulosin hydrochloride 0.4 mg oral capsule (9 sources)alpha-Adrenergic BlockerStart: 06-28-2024 End: 26-97-7015rskf 1 capsule by mouth once dailyTamsulosin 0.4 mg capsule Discontinued 0.4 MG PO Daily August 16, 2024 1:00am May 200:15am Triamcinolone (20 sources)CorticosteroidStart: 00-10-6129Susmngf -40 mg Sep, 40 mg Start: 80-69-2960Rbfbnjf -40 mg Mar,Start: 48-57-7875Ouejtsi -40 mg Sep, 40 mgtrospium chloride 20 mg oral tablet (11 sources)Cholinergic Muscarinic AntagonistStart: 10-08-2024 End: 88-59-9304lwfm 1 tablet by mouth twice dailyTrospium 20 mg tablet Discontinued 20 MG PO Twice daily 180 0 January 03, 2025 9:28am March 31, 2025 8:24am administer on an empty stomachvalACYclovir 500 mg oral tablet (7 sources)Herpesvirus Nucleoside Analog DNA Polymerase Inhibitor, Herpes Simplex Virus Nucleoside Analog DNA Polymerase Inhibitor, Herpes Zoster Virus Nucleoside Analog DNA Polymerase InhibitorStart: 05-25-2024 End: 77-92-0049bxqe 1 tablet by mouth twice dailyValacyclovir 500 [...] of anterior abdominal wall without obstructionAND without gangrene]26-07-8990Rbvhahkm Calculus of urinary tract (20 sources)Kidney stone; Translations: [Calculus of kidney]Onset: 01-16-2024 38-36-8632XueydyixXwkltra obstructive pulmonary disease and bronchiectasis (6 sources)Bronchitis; Translations: [Bronchitis, not specified as acute or chronic]34-40-6937CrkzinnuQtnehukueq associated with dizziness or vertigo (2 sources)Postural dizziness; Translations: [Dizziness and giddiness]08-19-2024 EpisodicEssential hypertension (5 sources)Hypertensive disorder; Translations: [Essential (primary) hypertension]39-26-0635JgpkmmoVgqvu and electrolyte disorders (2 sources)Hypokalemia; Translations: [Hypokalemia]Onset: EpisodicGenitourinary symptoms and ill-defined conditions (10 sources)Incontinence; Translations: [Incontinence without sensory awareness] Onset: 149749-59-6114FbxyxqfPywnefoleqpyu symptoms and ill-defined conditions (9 sources)Microscopic hematuria; Translations: [Nocturia]Onset: 06-07-2016 02-52-9207LmpgatcqExdmxdtu; including migraine (12 sources)Migraine; Translations: [Episodic tension-type headache]12-12-2019 ChronicHeart valve disorders (5 sources)Heart murmur; Translations: [O/E - cardiac murmur]Onset: 08-23-2018 26-83-6637GquawwqjLxrlnzwon (1 source)Influenza due to other identified influenza virus with other respiratory manifestations; Translations: [Influenza with other respiratory manifestations]10-19-4684GlmfootwNdewqkaan disorders (3 sources)Disorder of menstruation; Translations: [Unspecified disorder of menstruation and other abnormal bleeding from female genital tract]Onset: 79-62-9822AkwwljlKlxnslnnnfvrmy (20 sources)Osteoarthritis of knee; Translations: [Unilateral primary osteoarthritis, right knee]ChronicOther circulatory disease (5 sources)Elevated blood-pressure reading without diagnosis of hypertension; Translations: [Elevated blood-pressure reading, without diagnosis of hypertension]Onset: 453903-94-0182YyxtjhniYtakf connective tissue disease (4 sources)Pain in left lower limb; Translations: [Pain in left leg]Episodic Other connective tissue disease (4 sources)Thigh pain; Translations: [Pain in unspecified thigh]EpisodicOther diseases of bladder and urethra (6 sources)Overactive bladder; Translations: [Overactive bladder]05-22-2024 ChronicOther diseases of kidney and ureters (1 source)Kidney disease; Translations: [Other specified disorders of kidney and ureter]75-75-3108KrflsrnPtdxu diseases of kidney and ureters (2 sources)Other specified disorders of kidney and ureter; Translations: [Other specified disorders of kidney and ureter]Onset: 34-65-7930VwyyddkUbviw diseases of kidney and ureters (1 source)Kidney dbuyzak90-63-8275AxiqlwlsHjmek nervous system disorders (4 sources)Meralgia paresthetica of left leg; Translations: [Meralgia paresthetica, left lower limb]ChronicOther nervous system disorders (4 sources)Chronic pain; Translations: [Other chronic pain]ChronicOther non- traumatic joint disorders (8 sources)Knee pain; Translations: [Pain in right knee]EpisodicOther nutritional; endocrine; and metabolic disorders (10 sources)Body mass index 40+ - severely obese; Translations: [Body mass index (BMI) 50.0-59.9, adult]Onset: 76-69-8013QuuulfcDhowx nutritional; endocrine; and metabolic disorders (5 sources)Disorder of mineral metabolism; 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, unspecified]Onset: 655978-59-2266MshrdeaDpshs nutritional; endocrine; and metabolic disorders (1 source)Disorder of mineral metabolism, unspecified; 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, unspecified]Onset: 24-81-0072DgtfqbzWzech screening for suspected conditions (not mental disorders or infectious disease) (10 sources)Patient encounter status; Translations: [Encounter for screening mammogram for malignant neoplasm of breast]Onset: 810278-82-1952Iopxyzsf Other upper respiratory infections (6 sources)Acute maxillary sinusitis; Translations: [Acute maxillary sinusitis, unspecified]Onset: 03-21-1643IihfbaegIvkhokuxbb (except in labor) (20 sources)Septic shock; Translations: [Sepsis, unspecified organism]Onset: 286753-79-1158BsdoymrnSwplhfpuvfv; intervertebral disc disorders; other back problems (4 sources)Spondylosis; Translations: [Other spondylosis, lumbar region]Chronic Spondylosis; intervertebral disc disorders; other back problems (5 sources)Low back pain; Translations: [Low back pain, unspecified]Onset: 583721-73-7884ZxslgnfiGctlokcis-rgxonnl disorders (3 sources)Tobacco user; Translations: [Nicotine dependence, cigarettes, in remission]ChronicUnclassified (2 sources)Asymptomatic microscopic ukognmsig38-29-3244Lbnclqp tract infections (6 sources)Urinary tract infectious disease; Translations: [Urinary tract infection, site not specified]39-75-6785Uswpkgej Past or Other Problems Problem ClassificationProblemDateDocumented DateEpisodic/ChronicAbdominal pain (3 sources)Flank pain; Translations: [Unspecified abdominal pain]Onset: 702431-63-2093MgpoldrxEndqgvime infection; unspecified site (5 sources)Bacteremia caused by Gram-negative bacteria; Translations: [Bacteremia]Onset: 141513-58-9578MkfmlsroLejf disorders (14 sources)Mood disordersOnset: 05-21-2024 Resolved: 033124-05-5657Wqhqr aftercare (3 sources)Surgical follow-up; Translations: [Follow-up examination, following unspecified surgery]Onset: 26-20-7428CtrrsrzwCcxwx female genital disorders (3 sources)Hypertrophy of uterus; Translations: [Hypertrophy of uterus]Onset: 57-41-2494NlmxutdvOilyt non-traumatic joint disorders (3 sources)Arthralgia of the pelvic region and thigh; Translations: [Pain in joint, pelvic region and thigh]Onset: 19-19-8876KnotivrrVohngmap codes; unclassified (1 source)Pain, unspecified; Translations: [Pain, unspecified]Onset: 05-21-2024 EpisodicShock (2 sources)Severe sepsis with septic shock; Translations: [Severe sepsis with septic shock]Onset: 64-04-4851Hikpjsux Results Test NameValueInterpretationReference RangeFacilityUS community outreach [facility] [id number] community outreach [facility] [place] [address] Ultrasound Report Signed Patient: Sharri Murillo MR#: [id number] : 1955 Acct:[id number] Age/Sex: 69 / F ADM Date: 04/08/25 [...] Heart MD,FACS,FSVS 04/08/2025 2:09 PM Dictation Location: [place] [address] Tech: Shira Deng Transcribed By: PWS 04/08/25 140 Dictated By: Jovany Heart MD 04/08/25 140 Signed By: 04/08/[address] Physician [facility] SystemUS community outreach aortaon 85-95-6374TI [facility] outreach [place] [id number] Ultrasound Report Signed Patient: Sharri Murillo MR#: [id number] : 1955 Acct:[id number] Age/Sex: 69 / F ADM Date: 04/08/25 Loc: Room: Type: [facility] Attending Dr: [facility] Ordering Provider: BHARATHI AVILES Date of Service: 04/08/25 US/US [facility] outreach aorta: SCREENING Copies to: [facility] Aorta screening ultrasound HISTORY: Screening exam Normal caliber abdominal aorta. US/US [facility] outreach aorta IMPRESSION: No abdominal aortic aneurysm. Impression dictated by: Milton Yap M.D. 04/08/2025 3:29 PM Dictation Location: [place] [address] Tech: Lamar Kathleen Transcribed By: PWS 04/08/25 1529 Dictated By: Milton Yap DO 04/08/25 1529 Signed By: 04/08/[address] Physician [facility] SystemUS community outreach carotidon 06-72-9948BP community outreach [facility] Main [address] [address] Ultrasound Report Signed Patient: Sharri Murillo MR#: [id number] : 1955 Acct:[id number] Age/Sex: 69 / F ADM Date: 04/08/25 Loc: Room: Type: REG REF Attending Dr: Bharathi Aviles Ordering Provider: BHARATHI AVILES Date of Service: 04/08/25 /[facility] carotid: SCREENING Copies to: [facility] CAROTID DUPLEX INDICATION: Critical access hospital carotid screening program. PROCEDURE: Color-flow duplex scanning [...] the common carotid artery is 0.99 . /[facility] carotid IMPRESSION: NO HEMODYNAMICALLY SIGNIFICANT STENOSIS OF EITHER EXTRACRANIAL INTERNAL CAROTID ARTERY. Impression dictated by: Jovany Heart MD,FACS,FSVS 04/08/2025 2:08 PM Dictation Location: [place] [address] Tech: Lamar Frannie Transcribed By: KAMILAH 04/08/25 1408 Dictated By: Jovany Heart MD 04/08/25 140 Signed By: 04/08/[address] [place] [address] Physician GroupCT UROGRAMon 52-30-8850NP UROGRAMCT UROGRAM History: Renal stone. Pelvic caliectasis. [...] by Car Elliott MD on 12/11/2024 8:[address] Luke'S Health – Patients Medical CenterCREATININE, SERUMon 82-66-0469Gihmczuuhi [Mass/Vol]0.59 mg/dLNormal 0.40-1.00ProChi St. Luke'S Health – Patients Medical CenterComment on above:Result Comment: METHOD TRACEABLE TO IDNV STANDARDPerformed By: #### BAR STAFF #### [facility] ([facility]) [address] [place] [address] VIREGFR (CKD-EPI) NON-RACE DEPENDENT>^90Normal>=60The [facility] HospitalCombeaumont hospital on above:Result Comment: Reported eGFR is based on the CKD-EPI 2020 equation that does not use a race coefficient.Performed By: #### BAR STAFF #### [facility] ([facility]) [address] [place] [address] VIRCreatinine includes GFR, serumon 41-67-6218Jswurzyhnl [Mass/Vol]0.59 mg/dL0.40 - 1.00 mg/dLOhio State Harding HospitalComment on above: METHOD TRACEABLE TO IDMS STANDARDEGFR Non-Race Dependent- Ballad HealthComment on above:Reported eGFR is based on the CKD-EPI 2020 equation that does not use a race coefficient. Interpretation and review of laboratory resultsNormalRichland Center Health SystemUS RETROPERITONEAL COMPLETEon 83-94-3439ZL RETROPERITONEAL COMPLETEUS RETROPERITONEAL COMPLETE ULTRASOUND RETROPERITONEAL COMPLETE [...] by Lance Calderon MD on 11/13/2024 11:04 [facility]ighCT ABDOMEN AND PELVIS WO CONTon 44-22-1550YH ABDOMEN AND PELVIS WO CONT CT ABDOMEN [...] by Aleksandra Gamboa MD on 08/22/2024 12:55 [facility] STONE ANALYSISon 14-34-2239INKXGP COMMENTSee NoteNoJ.W. Ruby Memorial HospitalComment on above:Result Comment: NOTE For stones containing calcium oxalate, calcium phosphate, and/or uric acid, a 24 hr urinary supersaturation test may help detect underlying risk factors for this type of stone formation and provide guidance for a stone prevention strategy. ADDITIONAL INFORMATION This test was developed and its performance characteristics determined by [facility] in a manner consistent with CLIA requirements. This test has not been cleared or approved by the U.S. Food and Drug Administration. Test Performed by: [facility] [address] [place] [address] Harnessmaker Apprentice: John Pickett Ph.D.; CLIA# [id number]:LEFT KIDNEY STONE NormalProMercy Memorial HospitalComment on above:Result Comment: Corrected on 08/13 AT 1509: Previously reported as LEFT KIDNEY STONEStone Fhadzadxinefkq897% Calcium oxalate monohydrate.NormalProMercy Memorial HospitalBacteria identified Cx Nom (U)on 43-19-2109Xqrwhjz comment (Unsp spec) [Interp]<10,000 ORGANISMS/ML NORMAL URO GENITAL FLORAProCleveland Clinic Mentor Hospital SystemProBrown Memorial HospitalBASIC METABOLIC PANLon 87-38-9887Oeaal gap [Moles/Vol]7 mmol/LNormal5-15ProMercy Memorial HospitalComment on above:Performed By: #### BERNARD, 58964-7, CMP, 91262-0, 2777-1, CBCA, 92794-9 #### [facility] ([id number]) [address], [address] [place], [place] [address]Eifsetg [Mass/Vol]9.0 mg/dLNormal8.5-10.5PLima City HospitalComment on above:Performed By: #### BERANRD, 98166-3, CMP, 15900-8, 2777-1, CBCA, 82508-8 #### [facility] ([id number]) [address], [address] [place], [place] [address]Zgizqttc [Moles/Vol]101 mmol/XTjttbo67-087TciKbrdor [place] HospitalComment on above:Performed By: #### BERNARD, 77651-2, CMP, 88596-0, 2777-1, CBCA, 09405-1 #### [facility] ([id number]) [address], [address] [place], [place] [address]MD6 [Moles/Vol]30 mmol/WCvvaln53-18JgePtobxb [facility] Comment on above:Performed By: #### PINR, 33042-7, CMP, 36063-0, 2777-1, CBCA, 80884-3 #### [facility] ([id number]) [address], [address] [place], [place] [address]Kcmgkkqedh [Mass/Vol]0.68 mg/dLNormal0.40-1.00ProMercy Memorial HospitalComment on above:Result Comment: METHOD TRACEABLE TO IDMS STANDARD Performed By: #### PINR, 56905-7, CMP, 83978-8, 2777-1, CBCA, 05198-8 #### [facility] ([id number]) [address] [address] [place], [place] [address]sIQH (CKD-EPI) NON-RACE DEPENDENT>90Normal>59ProMercy Memorial HospitalComment on above:Result Comment: Reported eGFR is based on the CKD-EPI 2020 equation that does not use a race coefficient.Performed By: #### PINR, 34729-5, CMP, 64828-2, 2777- 1, CBCA, 11016-8 #### [facility] ([id number]) [address], [address] [place], [place] [address]Rililsa [Mass/Vol]96 mg/uJCmwcis23-60AsxZmcqnb [facility] Comment on above:Performed By: #### KATLYNR, 60674-8, CMP, 35502-7, 2777-1, CBCA, 83972-2 #### [facility] ([id number]) [address], [address] [place], [place] [address]Yebzhhafj [Moles/Vol]3.6 mmol/LNormal3.5-5.0ProMercy Memorial HospitalComment on above:Performed By: #### PINR, 65430-0, CMP, 45653-3, 2777-1, CBCA, 83818-9 #### [facility] ([id number]) [address], [address] [place], [place] [address]Dseaqm [Moles/Vol]138 mmol/AXxiikx562-213ShqIzthetAdena Health SystemComment on above:Performed By: #### PINR, 33057-1, CMP, 60984-4, 2777-1, CBCA, 82950-6 #### [facility] ([id number]) [address], [address] [place], [place] [address]Rzlb nitrogen [Mass/Vol]16 mg/dLNormal5-27ProMercy Memorial HospitalComment on above:Performed By: #### PINR, 41607-8, CMP, 01981-9, 2777-1, CBCA, 03666-0 #### [facility] ([id number]) [address], [address] [place], [place] [address]Atpkz Metabolic Panelon 25-10-4088Wglid gap [Moles/Vol]7 mmol/L5 - 15 mmol/LProMedica Health SystemCalcium [Mass/Vol]9 mg/dL8.5 - 10.5 mg/dL [facility] SystemChloride [Moles/Vol]101 mmol/L98 - 109 mmol/LProMedica Health SystemCO2 [Moles/Vol]30 mmol/L22 - 32 mmol/LProMedica Health System Creatinine [Mass/Vol]0.68 mg/dL0.40 - 1.00 mg/dLOhio State Harding HospitalComment on above:METHOD TRACEABLE TO IDMS STANDARDeGFR (CKD-EPI)non-race dependent- PINF [facility] Harding HospitalComment on above: Reported eGFR is based on the CKD-EPI 2020 equation that does not use a race coefficient. Glucose [Mass/Vol]96 mg/dL65 - 99 mg/dLSt. Mary's Medical Center SystemPotassium [Moles/Vol]3.6 mmol/L3.5 - 5.0 mmol/LProMedica Health SystemSodium [Moles/Vol] 138 mmol/L134 - 146 mmol/LProMedica Health SystemUrea nitrogen [Mass/Vol]16 mg/dL5 - 27 mg/dLOhio State Harding HospitalProCleveland Clinic Mentor Hospital SystemURINALYSISon 85-07-3994Kyvuhpgdw Ql (U)NegativeNormalNEGProMedica Ashraf HospitalComment on above:Performed By: #### PINR, 99105-8, CMP, 66422-2, 2777-1, CBCA, 76670-0 #### [facility] ([id number]) [address], [address] [place], [place] [address]OFWBL/HGBLargeAbnormalNEGProMedica Ashraf HospitalComment on above:Performed By: #### PINR, 03519-3, CMP, 77806-0, 2777-1, CBCA, 04358-8 #### [facility] ([id number]) [address], [address] [place], [place] [address]Wxjjp (U)YELLOWNormalYELLOWProMedica Ashraf HospitalComment on above:Performed By: #### PINR, 22296-0, CMP, 47132-7, 2777-1, CBCA, 01169-2 #### [facility] ([id number]) [address], [address] [place], [place] [address]Kxkmfgr Ql (U)NegativeNormalNEGProMedica Ashraf HospitalComment on above:Performed By: #### PINR, 62217-6, CMP, 89691-1, 2777-1, CBCA, 74867-2 #### [facility] ([id number]) [address], [address] [place], [place] [address]Btojkwz Ql (U)NegativeNormalNEGProMedica Ashraf HospitalComment on above:Performed By: #### PINR, 59529-3, CMP, 51120-6, 2777-1, CBCA, 47539-3 #### [facility] ([id number]) [address], [address] [place], [place] [address]Jxdcerptr esterase Test strip Ql (U)SmallAbnormalNEGProMedica Ashraf HospitalComment on above:Performed By: #### PINR, 38077-4, CMP, 15640-0, 2777-1, CBCA, 47633-4 #### [facility] ([id number]) [address], [address] [place], [place] [address]YHAZOCHHEBGEGSptanegqZVOOEikFfyzjm [place] HospitalComment on above:Performed By: #### PINR, 86074-5, CMP, 73448-0, 2777-1, CBCA, 79628-9 #### [facility] ([id number]) [address], [address] [place], [place] [address]Cqnbtnv Ql (U)NegativeNormalNEGProUniversity Hospitals Beachwood Medical Centerca [facility]erington Methodist HospitalComment on above:Performed By: #### PINR, 25776-0, CMP, 65531-3, 2777-1, CBCA, 31152-7 #### [facility] ([id number]) [address], [address] [place], [place] [address]uQ (U)6.0 [pH]Normal5.0-8.5PWayne HealthCare Main Campus HospitalComment on above:Performed By: #### PINR, 93818-9, CMP, 50097-6, 2777-1, CBCA, 11886-0 #### [facility] ([id number]) [address], [address] [place], [place] [address]Vawkrea Ql (U)50 mg/dLAbnormalNEGProUniversity Hospitals Beachwood Medical Centerca [facility] Comment on above:Performed By: #### PINR, 22092-3, CMP, 29322-8, 2777-1, CBCA, 24009-6 #### [facility] ([id number]) [address], [address] [place], [place] [address]B.B.ISJMQ260 /hpfHigh0-5PLima City HospitalComment on above:Performed By: #### PINR, 98496-7, CMP, 55604-3, 2777-1, CBCA, 55354-5 #### [facility] ([id number]) [address], [address] [place], [place] [address]Xpgwauoh gravity (U) [Rel density]1.814Ljlxbk1.003-1.035 [facility] Methodist HospitalComment on above:Performed By: #### PINR, 22539-6, CMP, 89200-4, 2777-1, CBCA, 76072-4 #### [facility] ([id number]) [address], [address] [place], [place] [address]ITAQWEUS EPITHELIUM1 /hpfNormal0-5PWayne HealthCare Main Campus Hospital Comment on above:Performed By: #### PINR, 71461-5, CMP, 26742-9, 2777-1, CBCA, 96417-7 #### [facility] ([id number]) [address], [address] [place] [address]LBQFBHVUWUNZLGyukkpryXYIOXSbxNqdmco [place] HospitalComment on above:Performed By: #### PINR, 09013-1, CMP, 49378-6, 2777-1, CBCA, 30102-7 #### [facility] ([id number]) [address], [address] [place] [address]Tizdbgllkwfh (U) [Mass/Vol]mg/dLNormal<1.1PLima City HospitalComment on above:Performed By: #### PINR, 65235-4, CMP, 75976-4, 2777-1, CBCA, 53101-3 #### [facility] ([id number]) [address], [address] [place], [place] [address]Y.B.CELLS2 /hpfNormal0-5PLima City HospitalComment on above:Performed By: #### PINR, 96759-7, CMP, 98677-3, 2777-1, CBCA, 54466-0 #### [facility] ([id number]) [address], [address] [place], [place] [address]RBUMP CULTUREon 53-30-4723Ctwwpgnt identified Cx Nom (U)CULTURE RESULTS <10,000 ORGANISMS/ML NORMAL URO GENITAL FLORAGalion Community Hospital Comment on above:Performed By: #### PINR, 64019-0, CMP, 42190-4, 2777-1, CBCA, 90451-1 #### [facility] ([id number]) [address] [place] [address], [address] [place], [place] [address]Jhaskqsqhtni 00-23-0300Amtvvatov Ql (U)NegativeNegative^Negative [facility] SystemColor (U)YELLOWYELLOW^YELLOWOhio State Harding Hospital Epithelial cells Auto (Urine sed) [#/Area]1PSouthern Ohio Medical CenterGlucose (U) [Mass/Vol]NegativeNegative^Negative mg/dLOhio State Harding HospitalHemoglobin Auto test strip Ql (U)LargeAbnormalNegative^NegativeOhio State Harding Hospital Interpretation and review of laboratory resultsAbnoPsychiatric hospital Ketones (U) [Mass/Vol]NegativeNegative^Negative mg/dLOhio State Harding Hospital Leukocyte esterase Auto test strip Ql (U)SmallAbnormalNegative^NegativeSt. Mary's Medical Center SystemMucus Ql (Urine sed)PRESENTAbnormalNONE^NONESt. Mary's Medical Center SystemNitrite Auto test strip Ql (U)NegativeNegative^NegativeOhio State Harding HospitalpH (U)6 [pH]5.0 - 8.5PMartins Ferry Hospital SystemProtein (U) [Mass/Vol]50 mg/dL AbnormalNegative^NegativeOhio State Harding HospitalRBC Auto (Urine sed) [#/Area]633 Duke University Hospitalpecific gravity Refractometry automated (U) [Rel density]1.0121.003 - 1.035Ohio State Harding HospitalTurbidity Ql (U)HAZYAbnormal CLEAR^CLEAROhio State Harding HospitalUrobilinogen Qn (U)NINUniversity Hospital WBC Auto (Urine sed) [#/Area]2PMayo Clinic Health System– Oakridge System BASIC METABOLIC PANLon 95-51-9464Kiifa gap [Moles/Vol]12 mmol/LNormal5-15 [facility] SystemComment on above:Performed By: #### PINR, 29900-7, CMP, 44822-6, 2777-1, CBCA, 67700-7 #### [facility] ([id number]) [address], [address] [place], [place] [address]Bammwhb [Mass/Vol]9.2 mg/dLNormal8.5-10.5ProMedica Ashraf HospitalComment on above:Performed By: #### PINR, 15371-6, CMP, 05002-3, 2777-1, CBCA, 93730-6 #### [facility] ([id number]) [address], [address] [place], [place] [address]Gsknoaev [Moles/Vol]105 mmol/YDoznym43-629VcnMzswmh Ashraf HospitalComment on above:Performed By: #### PINR, 55881-2, CMP, 45453-0, 7-1, CBCA, 96084-0 #### [facility] ([id number]) [address], [address] [place], [place] [address]FA2 [Moles/Vol]25 mmol/OVytloz68-61ZwaKjinmd [facility] Comment on above:Performed By: #### PINR, 47059-5, CMP, 84426-1, 2777-1, CBCA, 02120-0 #### [facility] ([id number]) [address], [address] [place], [place] [address]Iluvnzxeww [Mass/Vol]0.53 mg/dLNormal0.40-1.00ProMedica Ashraf HospitalComment on above:Result Comment: METHOD TRACEABLE TO IDMS STANDARD Performed By: #### PINR, 25695-8, CMP, 13488-1, 2777-1, CBCA, 34148-4 #### [facility] ([id number]) [address], [address] [place], [place] [address]aEWS (CKD-EPI) NON-RACE DEPENDENT>90Normal>59ProMedica Ashraf HospitalComment on above:Result Comment: Reported eGFR is based on the CKD-EPI 2020 equation that does not use a race coefficient.Performed By: #### PINR, 70212-6, CMP, 05774-7, 2777- 1, CBCA, 27507-2 #### [facility] ([id number]) [address], [address] [place], [place] [address]Koxuxje [Mass/Vol]105 mg/vMXkcb31-41McyUmrqie [facility] Comment on above:Performed By: #### PINR, 49814-4, CMP, 72895-1, 2777-1, CBCA, 16495-9 #### [facility] ([id number]) [address], [address] [place], [place] [address]Mtrxxvpbv [Moles/Vol]3.2 mmol/LLow3.5-5.0ProMercy Memorial HospitalComment on above:Performed By: #### PINR, 81397-5, CMP, 08499-3, 7-1, CBCA, 25586-9 #### [facility] ([id number]) [address], [address] [place], [place] [address]Ntrloj [Moles/Vol]142 mmol/GPiyzqy325-015UiqEfafsz [facility] HospitalComment on above:Performed By: #### PINR, 34682-9, CMP, 60558-6, 7-1, CBCA, 06166-2 #### [facility] ([id number]) [address], [address] [place], [place] [address]Ihut nitrogen [Mass/Vol]16 mg/dLNormal5-27ProMercy Memorial HospitalComment on above:Performed By: #### PINR, 74679-1, CMP, 74479-2, 2777-1, CBCA, 69159-9 #### [facility] ([id number]) [address], [address] [place], [place] [address]ETDTHJUZ BLOOD COUNTon 57-29-8607Swbdfdyzmzh distribution width (RBC) [Ratio]15.3 %High11.5-15.0ProUniversity Hospitals Beachwood Medical Centerca [facility] HospitalComment on above: Performed By: #### PINR, 59326-4, CMP, 54569-6, 2777-1, CBCA, 34615-8 #### [facility] ([id number]) [address], [address] [place], [place] [address]Tvgppuetlb (Bld) [Volume fraction]35.5 %Zkhzgj22-53YmoLnvqqn [facility] HospitalComment on above:Performed By: #### PINR, 83143-5, CMP, 69580-8, 2777-1, CBCA, 07842-4 #### [facility] ([id number]) [address], [address] [place], [place] [address]Aelxgzkvhs (Bld) [Mass/Vol]12.0 g/jEOnjqii76.7-15.5ProMedica Jacksboro HospitalComment on above:Performed By: #### PINR, 07976-0, CMP, 05476-8, 2777-1, CBCA, 05236-3 #### [facility] ([id number]) [address], [address] [place], [place] [address]RAN (RBC) [Entitic mass]30.8 xsDpdkvf98-41QthThxvwh [facility] HospitalComment on above:Performed By: #### PINR, 30932-1, CMP, 20834-7, 2777-1, CBCA, 09842-6 #### [facility] ([id number]) [address], [address] [place], [place] [address]ZMMY (RBC) [Mass/Vol]33.8 g/iUVdbbgj86-75EmbVrflwz [facility] HospitalComment on above:Performed By: #### PINR, 07191-1, CMP, 71223-2, 2777-1, CBCA, 78925-8 #### [facility] ([id number]) [address], [address] [place] [address]PJE (RBC) [Entitic vol]91 hRJzzrwx37-453GnaZdtdji [facility] HospitalComment on above:Performed By: #### PINR, 97075-2, CMP, 68984-3, 2777-1, CBCA, 11470-1 #### [facility] ([id number]) [address], [address] [place] [address]Zjmuoebu mean volume (Bld) [Entitic vol]7.2 fLNormal7-12 [facility] HospitalComment on above:Performed By: #### PINR, 28028-5, CMP, 50788-9, 2777-1, CBCA, 59899-8 #### [facility] ([id number]) [address], [address] [place], [place] [address]Eaqcsyffy (Bld) [#/Vol]162 10*3/pECarzrr185-744XnaJgupaq [facility] HospitalComment on above:Performed By: #### PINR, 88925-5, CMP, 07808-2, 2777-1, CBCA, 45834-4 #### [facility] ([id number]) [address], [address] [place], [place] [address]YGZ COUNT3.89 X10E12/LNormal3.80-5.20ProHocking Valley Community [facility] Hospital Comment on above:Performed By: #### PINR, 89173-4, CMP, 85353-3, 2777-1, CBCA, 03974-4 #### [facility] ([id number]) [address], [address] [place], [place] [address]FOD (Bld) [#/Vol]7.9 10*3/uLNormal4.0-11.0ProUniversity Hospitals Beachwood Medical Centerca [facility] HospitalComment on above:Performed By: #### PINR, 75603-9, CMP, 47573-0, 2777-1, CBCA, 62646-0 #### [facility] ([id number]) [address], [address] [place], [place] [address]VE UROGRAPHY RETRO OPERATIVE W OR WO KUBon 80-71-0729QQ UROGRAPHY RETRO OPERATIVE W OR WO KUBFL [...] by Marcus Nuno MD on 06/28/2024 2:59 PMNormalCorey Hospital STONE ANALYSISon [id number] COMMENTSee NoteNormalAdena Health SystemComment on above:Result Comment: NOTE For stones containing calcium oxalate, calcium phosphate, and/or uric acid, a 24 hr urinary supersaturation test may help detect underlying risk factors for this type of stone formation and provide guidance for a stone prevention strategy. ADDITIONAL INFORMATION This test was developed and its performance characteristics determined by [facility] in a manner consistent with CLIA requirements. This test has not been cleared or approved by the U.S. Food and Drug Administration. Test Performed by: [facility] [place] [address] Harnessmaker Apprentice: John Pickett Ph.D.; CLIA# [id number]:LEFT URETERAL STONENormalProOhioHealth Mansfield Hospitalton Wyegalqvvyomog131% Calcium oxalate monohydrate.NormalProMercy Memorial HospitalBASIC METABOLIC PANLon 06-27-2024 Anion gap [Moles/Vol]11 mmol/LNormal5-15Adena Health SystemComment on above:Performed By: #### PINR, 75456-4, CMP, 00095-1, 2777-1, CBCA, 86398-4 #### [facility] ([id number]) [address], [address] [place], [place] [address]Wkxqgjg [Mass/Vol]10.0 mg/dLNormal8.5-10.5PLima City HospitalComment on above:Performed By: #### PINR, 60497-2, CMP, 51763-8, 2777-1, CBCA, 31563-7 #### [facility] ([id number]) [address], [address] [place], [place] [address]Yfufthdx [Moles/Vol]102 mmol/MFiuiok06-954DaeLzuwjk [place] HospitalComment on above:Performed By: #### PINR, 28279-9, CMP, 45215-0, 2777-1, CBCA, 25335-0 #### [facility] ([id number]) [address], [facility] [address] [place], [place] [address]AA2 [Moles/Vol]25 mmol/JYeasap98-57SjvQsfbmh [facility] Comment on above:Performed By: #### PINR, 49964-8, CMP, 39841-3, 2777-1, CBCA, 67466-3 #### [facility] ([id number]) [address], [facility] [address] [place], [place] [address]Vrsvzxxdwq [Mass/Vol]0.61 mg/dLNormal0.40-1.00ProMercy Memorial HospitalComment on above:Result Comment: METHOD TRACEABLE TO IDMS STANDARD Performed By: #### PINR, 68442-1, CMP, 75252-2, 2777-1, CBCA, 38255-6 #### [facility] ([id number]) [address] [address] [place], [place] [address]fHYZ (CKD-EPI) NON-RACE DEPENDENT>90Normal>59ProHocking Valley Community Hospital HospitalComment on above:Result Comment: Reported eGFR is based on the CKD-EPI 2020 equation that does not use a race coefficient.Performed By: #### PINR, 07282-1, CMP, 73962-6, 2777- 1, CBCA, 76390-2 #### [facility] ([id number]) [address], [address] [place], [place] [address]Ksjkhfy [Mass/Vol]111 mg/qFBaht16-00YrjLhghziMercy Memorial Hospital Comment on above:Performed By: #### PINR, 28968-4, CMP, , 2776-07, CBCA, 17690-5 #### [facility] ([id number]) [address], [address] [place], [place] [address]Gvxqifjed [Moles/Vol]3.5 mmol/LNormal3.5-5.0ProHocking Valley Community Hospital HospitalComment on above:Performed By: #### BERNARD, 86929-0, CMP, , 2776-07, CBCA, 93805-9 #### [facility] ([id number]) [address], [address] [place], [place] [address]Glwtsv [Moles/Vol]138 mmol/MYjyqdh237-816NzfGkgxhw [place] HospitalComment on above:Performed By: #### BERNARD, 59477-5, CMP, , 2776-07, CBCA, 46535-2 #### [facility] ([id number]) [address], [address] [place], [place] [address]Ndws nitrogen [Mass/Vol]20 mg/dLNormal5-27ProHocking Valley Community Hospital HospitalComment on above:Performed By: #### PINR, 39662-0, CMP, , 2776-07, CBCA, 01987-3 #### [facility] ([id number]) [address], [address] [place], [place] [address]WBNAHBDZ BLOOD COUNTon 58-94-1100Vdageahabpu distribution width (RBC) [Ratio]16.0 %High11.5-15.0ProHocking Valley Community Hospital HospitalComment on above: Performed By: #### PINR, 20062-8, CMP, 82261-3, 2777-1, CBCA, 31731-7 #### [facility] ([id number]) [address], [address] [place], [place] [address]Ibfgqgyrua (Bld) [Volume fraction]38.2 %Lztqfw13-13LfqFmzyuj [place] HospitalComment on above:Performed By: #### PINR, 86473-1, CMP, 55592-4, 2777-1, CBCA, 96887-1 #### [facility] ([id number]) [address], [address] [place], [place] [address]Olqujbtkfd (Bld) [Mass/Vol]12.8 g/pEHujwza77.7-15.5Pro[facility]ica [facility] HospitalComment on above:Performed By: #### PINR, 44520-8, CMP, 41759-2, 2777-1, CBCA, 12500-8 #### [facility] ([id number]) [address], [address] [place], [place] [address]CHL (RBC) [Entitic mass]30.5 qkLktxav96-29UijAabijx [place] HospitalComment on above:Performed By: #### PINR, 33861-2, CMP, 43450-4, 2777-1, CBCA, 30432-3 #### [facility] ([id number]) [address], [address] [place], [place] [address]QIIL (RBC) [Mass/Vol]33.5 g/aNHnaqyw96-17QztXgukko [place] HospitalComment on above:Performed By: #### PINR, 06373-5, CMP, 59154-9, 2777-1, CBCA, 52663-6 #### [facility] ([id number]) [address], [address] [place], [place] [address]BFL (RBC) [Entitic vol]91 wYJjxlcd05-140YyoAxxiau [facility]raf HospitalComment on above:Performed By: #### PINR, 78118-0, CMP, 85479-2, 2777-1, CBCA, 82646-1 #### [facility] ([id number]) [address], [address] [place], [place] [address]Rzabiaaw mean volume (Bld) [Entitic vol]7.5 fLNormal7-12 [facility] HospitalComment on above:Performed By: #### PINR, 92086-6, CMP, 64115-2, 2777-1, CBCA, 46473-8 #### [facility] ([id number]) [address], [address] [place], [place] [address]Kzepfoiso (Bld) [#/Vol]213 10*3/hSIhqykv056-681EmmRpypcf [place] HospitalComment on above:Performed By: #### PINR, 04096-7, CMP, 71254-1, 2777-1, CBCA, 30228-0 #### [facility] ([id number]) [address], [address] [place], [place] [address]XPN COUNT4.20 X10E12/LNormal3.80-5.20ProH[facility] Hospital Comment on above:Performed By: #### PINR, 69987-5, CMP, 10893-8, 2777-1, CBCA, 70135-9 #### [facility] ([id number]) [address], [address] [place], [place] [address]AAD (Bld) [#/Vol]9.9 10*3/uLNormal4.0-11.0Pro[facility] HospitalComment on above:Performed By: #### PINR, 08688-9, CMP, 44760-4, 2777-1, CBCA, 03072-8 #### [facility] ([id number]) [address], [address] [place], [place] [address]CKSNQBFRYQvr 43-63-9012Fedvmbozl Ql (U)NegativeNormalNEG [facility] HospitalComment on above:Performed By: #### UA #### [facility] ([id number]) [address], [address] [place], [place] [address]TTRQR/HGBNegativeNormalNEGProChi St. Luke'S Health – Patients Medical CenterComment on above:Performed By: #### UA #### [facility] ([id number]) [address], [address] [place], [place] [address]Qjuli (U)YELLOWNormalYELLOWProChi St. Luke'S Health – Patients Medical CenterComment on above:Performed By: #### UA #### [facility] ([id number]) [address], [address] [place], [place] [address]Mrbvitq Ql (U)NegativeNormalNEGProChi St. Luke'S Health – Patients Medical CenterCombeaumont hospital on above:Performed By: #### UA #### [facility] ([id number]) [address], [address] [place], [place] [address]Cfdglkg Ql (U)NegativeNormalNEGProChi St. Luke'S Health – Patients Medical CenterCombeaumont hospital on above:Performed By: #### UA #### [facility] ([id number]) [address], [address] [place], [place] [address]Oeqwnadfk esterase Test strip Ql (U)SmallAbnormalNEGProChi St. Luke'S Health – Patients Medical CenterCombeaumont hospital on above:Performed By: #### UA #### [facility] ([id number]) [address], [address] [place], [place] [address]VLADCVXBXLRTKVriptqefRCOAKfiXzaqsm [facility] HospitalCombeaumont hospital on above:Performed By: #### UA #### [facility] ([id number]) [address], [address] [place], [place] [address]Xxpyufy Ql (U)NegativeNormalNEGProChi St. Luke'S Health – Patients Medical CenterComment on above:Performed By: #### UA #### [facility] ([id number]) [address], [address] [place], [place] [address]sR (U)6.5 [pH]Normal5.0-8.5PPremier Health Upper Valley Medical CenterComment on above:Performed By: #### UA #### [facility] ([id number]) [address], [address] [place], [place] [address]Cbsigzy Ql (U)NegativeNormalNEGProChi St. Luke'S Health – Patients Medical CenterComment on above:Performed By: #### UA #### [facility] ([id number]) [address], [address] [place], [place] [address]G.B.CELLS1 /hpfNormal0-5PPremier Health Upper Valley Medical CenterComment on above:Performed By: #### UA #### [facility] ([id number]) [address], [address] [place], [place] [address]Cudcaecv gravity (U) [Rel density]1.546Fdacxu9.003-1.035 The Jewish HospitalComment on above:Performed By: #### UA #### [facility] ([id number]) [address], [address] [place], [place] [address]KBYNBLYA EPITHELIUM4 /hpfNormal0-5PPremier Health Upper Valley Medical Center Comment on above:Performed By: #### UA #### [facility] ([id number]) [address], [address] [place], [place] [address]OAQCMUIZQSTVKLHubvujMGLZHPhbUkksfw [facility]remont HospitalComment on above:Performed By: #### UA #### [facility] ([id number]) [address], [address] [place], [place] [address]Cvkrygywoywj (U) [Mass/Vol]mg/dLNormal<1.1PPremier Health Upper Valley Medical CenterComment on above:Performed By: #### UA #### [facility] ([id number]) [address], [address] [place], [place] [address]A.B.CELLS6 /hpfHigh0-5PPremier Health Upper Valley Medical CenterComment on above:Performed By: #### UA #### [facility] ([id number]) [address], [address] [place], [place] [address]GSTKZ CULTUREon 32-83-9732Nchspcdo identified Cx Nom (U)CULTURE RESULTS <10,000 ORGANISMS/ML NORMAL URO GENITAL FLORANormalProMedica [facility] Comment on above:Performed By: #### 630-4 #### [facility] ([id number]) [address], [address] [place], [place] [address]Aenjsloog Auto (Bld) [#/Vol]on 28-16-3498Wewzmlbdy (Bld) [#/Vol] Automated basophil count0.0-0.1FKettering Health HamiltonBasophils/100 WBC Auto (Bld)on 97-71-2877Bcwmufstx/100 WBC (Bld)Automated basophil %0.2-2.0 [facility] HospitalEosinophils/100 WBC Auto (Bld)on 05-30-2024 Eosinophils/100 WBC (Bld)Automated eosinophil %0.9-7.0[facility] HospitalErythrocyte distribution width Auto (RBC) [Ratio]on 09-61-7725Ehzqizrykco distribution width (RBC) [Ratio]Erythrocyte distribution width [Ratio] by Automated count11.0-15.0[facility] HospitalEstimated glomerular filtration rate (GFR) non- Americanon 43-64-5581TAV/1.73 sq M.predicted among non-blacks MDRD (S/P/Bld) [Vol rate/Area]Estimated glomerular filtration rate (GFR) non->=60 mL/min/1.73m 2FKettering Health HamiltonGlobulin Calc (S) [Mass/Vol]on 14-50-8552Syetihpp (S) [Mass/Vol]Serum globulin measurement by calculation (mass/volume)[facility] HospitalHematocrit Auto (Bld) [Volume fraction]on 62-06-6268Gqflgkrtia (Bld) [Volume fraction]Hematocrit [Volume Fraction] of Blood by Automated count 36.0-48.0[facility] HospitalHemoglobin [Mass/volume] in Bloodon 19-88-8204Rdghbdpdez (Bld) [Mass/Vol]Hemoglobin [Mass/volume] in Blood12.0-16.0 [facility] HospitalLaboratory - Chemistry and Chemistry - challengeon 60-54-0132Euoytbi [Mass/Vol]3.0 g/dLLow3.4-5.0[facility] HospitalALP [Catalytic activity/Vol]130 U/TMyhl00-845RqguwzttsPike Community HospitalALT [Catalytic activity/Vol]62 U/KShll55-51FtynrupewPike Community HospitalAST [Catalytic activity/Vol]33 U/B31-63FqtvmarwpPike Community HospitalBilirubin [Mass/Vol]0.4 mg/dL0.2-1.0[facility] Calcium [Mass/Vol]9.8 mg/dL8.5-10.1FKettering Health HamiltonChloride [Moles/Vol]102 mmol/N08-119PqjjeemsdPike Community HospitalCO2 [Moles/Vol]27.9 mmol/L21.0-32.0[facility] HospitalCreatinine [Mass/Vol]0.88 mg/dL 0.55-1.02[facility] HospitalGFR/1.73 sq M.predicted MDRD (S/P/Bld) [Vol rate/Area]mL/min/{1.73_m2}>=60 mL/min/1.73m 2FKettering Health HamiltonGlucose [Mass/Vol]99 mg/fZ12-451KafjacrydPike Community HospitalPotassium [Moles/Vol]4.2 mmol/L3.5-5.1FKettering Health HamiltonProtein [Mass/Vol] 7.7 g/dL6.4-8.2FBarnesville Hospitalodium [Moles/Vol]140 mmol/L 136-145[facility] HospitalUrea nitrogen [Mass/Vol]14.0 mg/dL 7.0-18.0[facility] HospitalUrea nitrogen/Creatinine [Mass ratio] 15.9 mg/mgPike Community HospitalLaboratory - Hematology and Cell countson 24-53-1252Ltrghxtp granulocytes/100 WBC (Bld)0.5 %0.0-0.5FKettering Health HamiltonLeukocytes [#/volume] corrected for nucleated erythrocytes in Blood by Automated counon 28-83-1893QYS corrected for nucl RBC Auto (Bld) [#/Vol]Leukocytes [#/volume] corrected for nucleated erythrocytes in Blood by Automated coun4.0-11.0[facility] HospitalLymphocytes Auto (Bld) [#/Vol]on 50-67-5814Xkxjcldnjpt (Bld) [#/Vol]Lymphocytes [#/volume] in Blood by Automated count1.2-3.8[facility] HospitalLymphocytes/100 WBC Auto (Bld)on 17-93-2542Xrcxwaliyms/100 WBC (Bld)Lymphocytes/100 leukocytes in Blood by Automated count20.5-60.0[facility] Medical CenterH Auto (RBC) [Entitic mass]on 28-89-7385WNM (RBC) [Entitic mass]MCH [Entitic mass] by Automated count26.7-34.0[facility] HospitalMCHC Auto (RBC) [Mass/Vol]on 25-70-2235IXHO (RBC) [Mass/Vol]MCHC [Mass/volume] by Automated count29.9-35.2FKettering Health HamiltonMCV Auto (RBC) [Entitic vol]on 06-01-9099CZO (RBC) [Entitic vol]MCV [Entitic volume] by Automated count 81.0-99.0[facility] HospitalMonocytes Auto (Bld) [#/Vol]on 23-34-4460Bhclaslja (Bld) [#/Vol]Automated blood monocyte count0.3-0.8[facility] HospitalMonocytes/100 WBC Auto (Bld)on 64-10-9136Qkyuebprh/100 WBC (Bld)Automated monocyte %1.7-12.0[facility] Neutrophils Auto (Bld) [#/Vol]on 15-01-2823Oermhimfeyy (Bld) [#/Vol]Neutrophils [#/volume] in Blood by Automated count1.4-6.5FKettering Health Hamilton Neutrophils/100 WBC Auto (Bld)on 12-36-1005Mlpkwitldhh/100 WBC (Bld)Automated neutrophil %43.0-75.0[facility] HospitalNo Panel Informationon 67-14-5853Qjlkgapmlru # (Auto)0.1 10 3/uL0.0-0.7FKettering Health HamiltonImmature Granulocyte # (Auto)0.05 10 3/uLHigh0.00-0.03[facility] HospitalPlatelet mean volume Auto (Bld) [Entitic vol]on 46-79-2289Qkixthrv mean volume (Bld) [Entitic vol]Platelet mean volume [Entitic volume] in Blood by Automated count9.5-13.5FKettering Health HamiltonPlatelets Auto (Bld) [#/Vol]on 36-24-5648Rhflrcqpv (Bld) [#/Vol]Platelets [#/volume] in Blood by Automated stxzi001-509VcvujbewqPike Community HospitalRBC Auto (Bld) [#/Vol]on 76-74-4196GQR (Bld) [#/Vol]Erythrocytes [#/volume] in Blood by Automated count Low4.20-5.40Martin Memorial Hospitalerum or plasma albumin/globulin mass ratioon 27-20-5594Wosyccq/Globulin [Mass ratio]Serum or plasma albumin/globulin mass ratioMartin Memorial Hospitalerum or plasma anion gap determinationon 54-57-9737Vvmth gap [Moles/Vol]Serum or plasma anion gap determinationPike Community HospitalBASIC METABOLIC PANLon 28-49-5270Ucyar gap [Moles/Vol]8 mmol/LNormal5-15[facility] Comment on above:Performed By: #### PINR, 02108-1, CMP, 54941-1, 2777-1, CBCA, 25095-3 #### [facility] ([id number]) [address], [address] [place], [place] [address]Jtdrwpm [Mass/Vol]8.2 mg/dLLow8.5-10.5PLima City Hospital Comment on above:Performed By: #### PINR, 71431-8, CMP, 20046-9, 7-1, CBCA, 39533-1 #### [facility] ([id number]) [address], [address] [place], [place] [address]Xmikopzd [Moles/Vol]104 mmol/AYquizl73-555EtkGkthcd [place] HospitalComment on above:Performed By: #### PINR, 00375-9, CMP, 96088-2, 7-1, CBCA, 66537-6 #### [facility] ([id number]) [address], [address] [place], [place] [address]RF9 [Moles/Vol]26 mmol/ROqwdxn70-23IicGzjgurLima City Hospital Comment on above:Performed By: #### BERNARD, 16196-9, CMP, 19402-4, 7-1, CBCA, 61554-0 #### [facility] ([id number]) [address], [address] [place], [place] [address]Hgdyccfhnj [Mass/Vol]0.71 mg/dLNormal0.40-1.00ProMercy Memorial HospitalComment on above:Result Comment: METHOD TRACEABLE TO IDMS STANDARD Performed By: #### BERNARD, 12227-7, CMP, 29289-2, 7-1, CBCA, 92316-7 #### [facility] ([id number]) [address], [address] [place], [place] [address]yGVT (CKD-EPI) NON-RACE DEPENDENT>90Normal>59ProMercy Memorial HospitalComment on above:Result Comment: Reported eGFR is based on the CKD-EPI 2020 equation that does not use a race coefficient.Performed By: #### PINR, 31256-2, CMP, 02744-8, 7- 1, CBCA, 74272-1 #### [facility] ([id number]) [address], [address] [place], [place] [address]Lqwlgmu [Mass/Vol]101 mg/kGPovp84-74OzlFoaqpfAdena Health System Comment on above:Performed By: #### PINR, 82632-9, CMP, 65738-1, 2777-1, CBCA, 00598-4 #### [facility] ([id number]) [address], [address] [place] [address]Tgenkjxbg [Moles/Vol]4.4 mmol/LNormal3.5-5.0ProMercy Memorial HospitalComment on above:Result Comment: SPECIMEN HEMOLYZED, RESULTS INCREASED MODERATELY HEMOLYZEDPerformed By: #### PINR, 56104-3, CMP, 53899-3, 2777-1, CBCA, 13276-1 #### [facility] ([id number]) [address], [address] [place] [address]Zcalvs [Moles/Vol]138 mmol/LHbhtip715-970CijFoajpb [place] HospitalComment on above:Performed By: #### PINR, 17316-1, CMP, 72739-2, 2777-1, CBCA, 74451-7 #### [facility] ([id number]) [address], [facility] [address] [place], [place] [address]Txir nitrogen [Mass/Vol]19 mg/dLNormal5-27ProMercy Memorial HospitalComment on above:Performed By: #### PINR, 39503-8, CMP, 75436-1, 2777-1, CBCA, 76377-9 #### [facility] ([id number]) [address], [address] [place], [place] [address]Vqgrq Metabolic Panelon 63-34-6388Melhb gap [Moles/Vol]8 mmol/L5 - 15 mmol/LProMedica Health SystemCalcium [Mass/Vol]8.2 mg/dLLow8.5 - 10.5 mg/dLProMedica Health SystemChloride [Moles/Vol]104 mmol/L98 - 109 mmol/L [facility] Health SystemCO2 [Moles/Vol]26 mmol/L22 - 32 mmol/LProMedica Health SystemCreatinine [Mass/Vol]0.71 mg/dL0.40 - 1.00 mg/dLOhio State Harding Hospital Comment on above:METHOD TRACEABLE TO IDNV STANDARDeGFR (CKD-EPI)non-race dependent- Ballad HealthComment on above: Reported eGFR is based on the CKD-EPI 2020 equation that does not use a race coefficient. Glucose [Mass/Vol]101 mg/eFHsfl28 - 99 mg/dLOhio State Harding Hospital Interpretation and review of laboratory resultsAbnormalOhio State Harding Hospital Potassium [Moles/Vol]4.4 mmol/L3.5 - 5.0 mmol/[facility] CenterComment on above:SPECIMEN HEMOLYZED, RESULTS INCREASED MODERATELY HEMOLYZED Sodium [Moles/Vol]138 mmol/L134 - 146 mmol/[facility] Medical CenterUrea nitrogen [Mass/Vol]19 mg/dL5 - 27 mg/dLOhio State Harding HospitalCBC AND AUTO DIFFon 58-44-4500Kwzcmpnbsnw (Bld) [#/Vol]0.5 10*3/uLHigh0.0-0.4A[facility]a Health SystemComment on above:Performed By: #### BERNARD, 86955-9, CMP, 15935-2, 2777-1, CBCA, 68222-6 #### [facility] ([id number]) [address], [address] [place], [place] [address]Gvwjdqrnuie/100 WBC (Bld)4.8 %NormalAdena Health System Comment on above:Performed By: #### PINR, 66679-8, CMP, 56434-7, 2777-1, CBCA, 70129-9 #### [facility] ([id number]) [address], [address] [place], [place] [address]Jazpmzuxwrt distribution width (RBC) [Ratio]15.0 %Normal 11.5-15.0Adena Health SystemComment on above:Performed By: #### PINR, 11278-2, CMP, 66984-6, 2777-1, CBCA, 43656-3 #### [facility] ([id number]) [address], [address] [place], [place] [address]Dnrzjxsabi (Bld) [Volume fraction]35.1 %Wwcfzj17-87ZqmZnyesq [place] HospitalComment on above:Performed By: #### PINR, 63645-8, CMP, 94610-9, 2777-1, CBCA, 83072-3 #### [facility] ([id number]) [address], [address] [place], [place] [address]Xggvfzyajk (Bld) [Mass/Vol]12.2 g/zPYkigvu44.7-15.5ProMedMercy Health Willard Hospital HospitalComment on above:Performed By: #### PINR, 07604-7, CMP, 21324-2, 2777-1, CBCA, 49590-6 #### [facility] ([id number]) [address], [address] [place], [place] [address]Gwzjbjzslsi (Bld) [#/Vol]3.9 10*3/uLHigh1.0-3.5ProMedMercy Health Willard Hospital HospitalComment on above:Performed By: #### PINR, 02072-5, CMP, 00447-1, 2777-1, CBCA, 76716-0 #### [facility] ([id number]) [address], [address] [place], [place] [address]Iulbrxxdqfj/100 WBC (Bld)39.4 %NormalProHocking Valley Community Hospital Hospital Comment on above:Performed By: #### PINR, 17342-8, CMP, 03067-9, 2777-1, CBCA, 47344-2 #### [facility] ([id number]) [address], [address] [place], [place] [address]AOT (RBC) [Entitic mass]30.3 ytRfvyoy60-08KryRnvxqe [place] HospitalComment on above:Performed By: #### PINR, 45835-0, CMP, 02416-8, 2777-1, CBCA, 84818-2 #### [facility] ([id number]) [address], [address] [place], [place] [address]LYPK (RBC) [Mass/Vol]34.6 g/pMHhpfwu61-54ZlvOjjrzn Ashraf HospitalComment on above:Performed By: #### PINR, 96836-4, CMP, 94919-0, 2777-1, CBCA, 85560-6 #### [facility] ([id number]) [address], [address] [place], [place] [address]OHH (RBC) [Entitic vol]88 cULajyzl92-875NxsQxjyqm [facility] HospitalComment on above:Performed By: #### PINR, 12317-4, CMP, 69942-2, 2777-1, CBCA, 99055-0 #### [facility] ([id number]) [address], [address] [place], [place] [address]Tpfyjrdqf (Bld) [#/Vol]0.4 10*3/uLNormal0-0.9ProMedica Ashraf HospitalComment on above:Performed By: #### PINR, 44234-8, CMP, 62712-2, 2777-1, CBCA, 30616-8 #### [facility] ([id number]) [address], [address] [place], [place] [address]Mflwnahbk/100 WBC (Bld)3.8 %NormalProMedica [facility] Hospital Comment on above:Performed By: #### PINR, 14316-9, CMP, 93570-7, 2777-1, CBCA, 38630-7 #### [facility] ([id number]) [address], [address] [place], [place] [address]AEREASWVC9.0 %NormalProMedica Ashraf HospitalComment on above: Performed By: #### PINR, 40195-2, CMP, 54610-9, 2777-1, CBCA, 95637-6 #### [facility] ([id number]) [address], [address] [place], [place] [address]Wkgzrrownih (Bld) [#/Vol]5.0 10*3/uLNormal1.5-6.6ProMedica [facility] HospitalComment on above:Performed By: #### PINR, 14616-0, CMP, 49283-2, 2777-1, CBCA, 37328-8 #### [facility] ([id number]) [address], [address] [place], [place] [address]Yetlhtak mean volume (Bld) [Entitic vol]8.4 fLNormal7-12 [facility] HospitalComment on above:Performed By: #### PINR, 52776-8, CMP, 35893-4, 2777-1, CBCA, 20758-9 #### [facility] ([id number]) [address], [address] [place], [place] [address]Zfrhtzwub (Bld) [#/Vol]137 10*3/jHJmh393-975WgnNciqko Jacksboro HospitalComment on above:Performed By: #### PINR, 15061-7, CMP, 14568-8, 2777-1, CBCA, 25705-9 #### [facility] ([id number]) [address], [address] [place], [place] [address]HGQ COUNT4.01 X10E12/LNormal3.80-5.20[facility] Comment on above:Performed By: #### PINR, 39648-9, CMP, 25922-5, 2777-1, CBCA, 19393-4 #### [facility] ([id number]) [address], [address] [place], [place] [address]OJO morphology finding Nom (Bld)NORMALNormalProMedica Jacksboro HospitalComment on above:Performed By: #### PINR, 82898-3, CMP, 91391-5, 2777-1, CBCA, 51647-7 #### [facility] ([id number]) [address], [address] [place], [place] [address]XSU SBTNLTFAJN41.0 %NormalProMercy Memorial HospitalComment on above:Performed By: #### PINR, 02548-1, CMP, 45584-8, 2777-1, CBCA, 89709-9 #### [facility] ([id number]) [address], [address] [place], [place] [address]CXO (Bld) [#/Vol]9.8 10*3/uLNormal4.0-11.0[facility] Health SystemComment on above:Performed By: #### PINR, 35128-7, CMP, 53185-9, 2777-1, CBCA, 58834-7 #### [facility] ([id number]) [address], [address] [place], [place] [address]FES auto differentialon 95-91-2923Kwalserkauu (Bld) [#/Vol]0.5 10*3/uLBon Secours Richmond Community HospitalEosinophils/100 WBC (Bld)4.8 %[facility] HospitalErythrocyte distribution width (RBC) [Ratio]15 %11.5 - 15.0 %[facility] HospitalHematocrit (Bld) [Volume fraction]35.1 %35 - 47 %[facility] HospitalHemoglobin (Bld) [Mass/Vol]12.2 g/dL11.7 - 15.5 g/dLOhio State Harding HospitalInterpretation and review of laboratory resultsAbnormalOhio State Harding HospitalLymphocytes (Bld) [#/Vol]3.9 10*3/uLBon Secours Richmond Community Hospital Lymphocytes/100 WBC (Bld)39.4 %[facility] HospitalH (RBC) [Entitic mass] 30.3 pg27 - 34 [facility] HospitalMCHC (RBC) [Mass/Vol]34.6 g/dL32 - 36 g/dLOhio State Harding HospitalMCV (RBC) [Entitic vol]88 fL80 - 100 [facility] CenterMonocytes (Bld) [#/Vol]0.4 10*3/uLOhio State Harding Hospital Monocytes/100 WBC (Bld)3.8 %[facility] HospitalMyelocytes/100 WBC (Bld)1 % [facility] HospitalNeutrophils (Bld) [#/Vol]5 10*3/uLOhio State Harding Hospital Platelet mean volume (Bld) [Entitic vol]8.4 fL7 - 12 [facility] Platelets (Bld) [#/Vol]137 10*3/uLLowOhio State Harding HospitalPolymorphonuclear cells/100 WBC (Bld)NORMALProBrown Memorial HospitalRBC (Bld) [#/Vol]4.01 10*6/uL [facility] MedCenter High Pointegmented neutrophils/100 WBC (Bld)51 %[facility] HospitalWBC corrected for nucl RBC Auto (Bld) [#/Vol]9.8Phoenixville HospitalMAGNESIUMon 72-60-8225Jrudtrkcq [Mass/Vol]1.8 mg/dLNormal 1.8-2.6Aden[facility] Health SystemComment on above:Performed By: #### BERNARD, 93212- 9, CMP, 13218-9, 2777-1, CBCA, 26736-2 #### [facility] ([id number]) [address], [address] [place], [place] [address]Lfioufzbaey 60-24-6399Dkhzezsoe [Mass/Vol]1.8 mg/dL1.8 - 2.6 mg/dLOhio State Harding HospitalNo Panel Informationon 50-53-6296NdjHevkhySouthern Ohio Medical CenterBASIC METABOLIC PANLon 23-29-5757Uaruy gap [Moles/Vol]10 mmol/LNormal5-15 [facility] SystemComment on above:Performed By: #### PINR, 16464-2, CMP, 70985-0, 2777-1, CBCA, 46594-7 #### [facility] ([id number]) [address] [place], [place] [address]Ddvutcn [Mass/Vol]8.9 mg/dLNormal8.5-10.5PLima City HospitalComment on above:Performed By: #### BERNARD, 04663-8, CMP, 57426-5, 2777-1, CBCA, 99861-2 #### [facility] ([id number]) [address], [address] [place] [address]Evolncyy [Moles/Vol]105 mmol/JLmlvut20-327XpkGnbolp Toledo HospitalComment on above:Performed By: #### BERNARD, 25550-3, CMP, 81290-8, 2777-1, CBCA, 34913-4 #### [facility] [facility] ([id number]) [address], [address] [place], [place] [address]ZE8 [Moles/Vol]26 mmol/YFpfagb15-77XemCwbrft [facility] Comment on above:Performed By: #### BERNARD, 05679-6, CMP, 18896-5, 7-1, CBCA, 15540-4 #### [facility] ([id number]) [address], [address] [place], [place] [address]Yvtpjytasf [Mass/Vol]0.79 mg/dLNormal0.40-1.00ProMercy Memorial HospitalComment on above:Result Comment: METHOD TRACEABLE TO IDMS STANDARD Performed By: #### BERNARD, 84522-9, CMP, 81055-6, 7-1, CBCA, 18943-3 #### [facility] ([id number]) [address], [address] [place], [place] [address]ODE/1.73 sq M.predicted among non-blacks MDRD (S/P/Bld) [Vol rate/Area]82 mL/min/{1.73_m2}Normal>59ProMercy Memorial HospitalComment on above: Result Comment: Reported eGFR is based on the CKD-EPI 2020 equation that does not use a race coefficient.Performed By: #### PINR, 24087-2, CMP, 50823-5, 2777- 1, CBCA, 74850-2 #### [facility] ([id number]) [address], [address] [place], [place] [address]Fqwyggz [Mass/Vol]89 mg/mZMndohb87-26OvzYwhnzc [facility] Comment on above:Performed By: #### PINR, 67473-3, CMP, 72750-1, 2777-1, CBCA, 42919-4 #### [facility] ([id number]) [address], [address] [place], [place] [address]Szrektfqu [Moles/Vol]3.7 mmol/LNormal3.5-5.0ProUniversity Hospitals Beachwood Medical Centerca Jacksboro HospitalComment on above:Performed By: #### PINR, 73912-9, CMP, 66762-1, 7-1, CBCA, 65426-5 #### [facility] ([id number]) [address], [address] [place], [place] [address]Jxmjak [Moles/Vol]141 mmol/FIcgnrf278-293HyaDrwlvw [facility] HospitalComment on above:Performed By: #### PINR, 26116-2, CMP, 74884-7, 7-1, CBCA, 47583-9 #### [facility] ([id number]) [address], [address] [place], [place] [address]Zgjp nitrogen [Mass/Vol]26 mg/dLNormal5-27ProHocking Valley Community Hospital HospitalComment on above:Performed By: #### PINR, 94605-8, CMP, 65829-3, 2777-1, CBCA, 50904-7 #### [facility] ([id number]) [address], [address] [place], [place] [address]Yccpv Metabolic Panelon 19-01-1510Ajhrf gap [Moles/Vol]10 mmol/L 5 - 15 mmol/LProMednorth alabama specialty hospital Health SystemCalcium [Mass/Vol]8.9 mg/dL8.5 - 10.5 mg/dL ProMLong Prairie Memorial Hospital and Home SystemChloride [Moles/Vol]105 mmol/L98 - 109 mmol/[facility] SystemCO2 [Moles/Vol]26 mmol/L22 - 32 mmol/[facility] System Creatinine [Mass/Vol]0.79 mg/dL0.40 - 1.00 mg/dLOhio State Harding HospitalComment on above:METHOD TRACEABLE TO IDMS STANDARDeGFR (CKD-EPI)non-race qftctexfk40- Ballad HealthComment on above: Reported eGFR is based on the CKD-EPI 2020 equation that does not use a race coefficient. Glucose [Mass/Vol]89 mg/dL65 - 99 mg/dLOhio State Harding HospitalPotassium [Moles/Vol]3.7 mmol/L3.5 - 5.0 mmol/[facility] SystemSodium [Moles/Vol] 141 mmol/L134 - 146 mmol/[facility] SystemUrea nitrogen [Mass/Vol]26 mg/dL5 - 27 mg/dLOhio State Harding HospitalCBC AND AUTO DIFFon 31-85-7877HBGRYDHA BASOPHIL0.0 X10E9/LNormal0.0-0.2PLima City HospitalComment on above: Performed By: #### BERNARD, 53141-5, ELROY, , 2776-, CBCA, 97134-2 #### [facility] ([id number]) [address], [address] [place], [place] [address]LAVMEHKW ETJOAMSKNX88.4 X10E9/LHigh1.5-6.6ProMercy Memorial HospitalComment on above:Performed By: #### BERNARD, 55512-4, CMP, 68279-7, 2776-1, CBCA, 79734-8 #### [facility] ([id number]) [address] [place], [place] [address]Ihgmrealz/100 WBC (Bld)0.3 %NormalAdena Health System Comment on above:Performed By: #### BERNARD, 80276-0, CMP, , 2777-1, CBCA, 61888-1 #### [facility] ([id number]) [address], [address] [place], [place] [address]Sdpblpwjdyy (Bld) [#/Vol]0.2 10*3/uLNormal0.0-0.4ProMedica Jacksboro HospitalComment on above:Performed By: #### BERNARD, 84676-5, CMP, 78242-8, 2776-, CBCA, 94015-4 #### [facility] ([id number]) [address], [address] [place], [place] [address]Icvphlzzaqa/100 WBC (Bld)1.6 %NormalProHocking Valley Community Hospital Hospital Comment on above:Performed By: #### BERNARD, 76765-1, CMP, 12952-2, 2776-, CBCA, 36261-5 #### [facility] ([id number]) [address], [address] [address]Gdmlfhzohww distribution width (RBC) [Ratio]15.4 %High11.5-15.0 ProMedica [facility]sboro HospitalComment on above:Performed By: #### BERNARD, 47131-8, CMP, 46316-1, 2776-, CBCA, 96102-4 #### [facility] ([id number]) [address], [address] [place], [place] [address]Bidejiacod (Bld) [Volume fraction]39.5 %Zrosmh87-28FlqNzjkqt [facility] HospitalComment on above:Performed By: #### PINR, 68046-2, CMP, 68786-1, 7-1, CBCA, 92028-4 #### [facility] ([id number]) [address], [address] [place], [place] [address]Ibueryddrh (Bld) [Mass/Vol]13.6 g/kMRodvuh95.7-15.5ProMedica [facility]sboro HospitalComment on above:Performed By: #### PINR, 04649-6, CMP, 78227-8, 2777-1, CBCA, 41077-4 #### [facility] ([id number]) [address], [address] [place], [place] [address]Uwhdesppner (Bld) [#/Vol]3.2 10*3/uLNormal1.0-3.5ProMedica [place]sboro HospitalComment on above:Performed By: #### PINR, 91880-5, CMP, 57203-7, 2777-1, CBCA, 84796-8 #### [facility] ([id number]) [address], [address] [place], [place] [address]Rozdwskmvnf/100 WBC (Bld)21.7 %NormalProHocking Valley Community Hospital Hospital Comment on above:Performed By: #### PINR, 05363-1, CMP, 61439-4, 2777-1, CBCA, 38292-7 #### [facility] ([id number]) [address], [address] [place], [place] [address]GDC (RBC) [Entitic mass]30.2 zlPsnzgf28-22WubBokqio [facility] HospitalComment on above:Performed By: #### PINR, 25296-1, CMP, 26503-9, 2777-1, CBCA, 94224-9 #### [facility] ([id number]) [address], [address] [place], [place] [address]KADD (RBC) [Mass/Vol]34.3 g/zBZtyxdd63-40DicWoicms [facility] HospitalComment on above:Performed By: #### PINR, 68841-8, CMP, 71996-9, 2777-1, CBCA, 44604-4 #### [facility] ([id number]) [address], [address] [place], [place] [address]MME (RBC) [Entitic vol]88 mCWyllzu47-935BcuRxsfqk [place] HospitalComment on above:Performed By: #### PINR, 67435-4, CMP, 77433-1, 2777-1, CBCA, 49421-7 #### [facility] ([id number]) [address], [address] [place], [place] [address]Kqwqoyxan (Bld) [#/Vol]0.7 10*3/uLNormal0-0.9ProUniversity Hospitals Beachwood Medical Centerca [place] HospitalComment on above:Performed By: #### PINR, 22028-4, CMP, 31629-5, 2777-1, CBCA, 44127-0 #### [facility] ([id number]) [address], [address] [place], [place] [address]Lusswzdey/100 WBC (Bld)5.1 %NormalAdena Health System Comment on above:Performed By: #### PINR, 06432-0, CMP, 44875-9, 2777-1, CBCA, 97440-7 #### [facility] ([id number]) [address], [address] [place], [place] [address]Ohlpbkfkouu/100 WBC (Bld)71.3 %NormalAdena Health System Comment on above:Performed By: #### PINR, 57164-5, CMP, 27380-6, 2777-1, CBCA, 09085-9 #### [facility] ([id number]) [address], [address] [place], [place] [address]Tgdgpojm mean volume (Bld) [Entitic vol]8.3 fLNormal7-12 [facility] HospitalComment on above:Performed By: #### PINR, 46840-0, CMP, 84993-8, 2777-1, CBCA, 96807-0 #### [facility] ([id number]) [address], [address] [place], [place] [address]Jveupsxhb (Bld) [#/Vol]130 10*3/cQFtw975-916HrfRyyvslMercy Memorial HospitalComment on above:Performed By: #### PINR, 23200-4, CMP, 67228-6, 2777-1, CBCA, 43676-0 #### [facility] ([id number]) [address], [address] [place], [place] [address]UMO COUNT4.49 X10E12/LNormal3.80-5.20[facility] Comment on above:Performed By: #### PINR, 02343-4, CMP, 64116-5, 2777-1, CBCA, 67211-9 #### [facility] ([id number]) [address], [address] [place], [place] [address]DYK (Bld) [#/Vol]14.6 10*3/uLHigh4.0-11.0Adena Health SystemComment on above:Performed By: #### PINR, 76257-1, CMP, 36442-6, 2777-1, CBCA, 75819-8 #### [facility] ([id number]) [address], [address] [place], [place] [address]MTR auto differentialon 54-88-9449Veseqpmbd (Bld) [#/Vol]0 10*3/uLKerbs Memorial HospitalMedimo Health SystemBasophils/100 WBC (Bld)0.3 %[facility] SystemEosinophils (Bld) [#/Vol]0.2 10*3/uLProMediMarion Hospital SystemEosinophils/100 WBC (Bld)1.6 %[facility] Rehabilitationedica Health SystemErythrocyte distribution width (RBC) [Ratio]15.4 %High11.5 - 15.0 %[facility] SystemHematocrit (Bld) [Volume fraction]39.5 %35 - 47 %ProMedica Health SystemHemoglobin (Bld) [Mass/Vol]13.6 g/dL11.7 - 15.5 g/dLOhio State Harding HospitalInterpretation and review of laboratory resultsAbnormalOhio State Harding HospitalLymphocytes (Bld) [#/Vol]3.2 10*3/[facility] Medical CenterLymphocytes/100 WBC (Bld)21.7 %[facility] HospitalH (RBC) [Entitic mass]30.2 pg27 - 34 pgPSouthern Ohio Medical CenterMCHC (RBC) [Mass/Vol]34.3 g/dL32 - 36 g/dLOhio State Harding HospitalMCV (RBC) [Entitic vol]88 fL80 - 100 [facility] CenterMonocytes (Bld) [#/Vol]0.7 10*3/uLOhio State Harding HospitalMonocytes/100 WBC (Bld)5.1 %[facility] HospitalNeutrophils (Bld) [#/Vol]10.4 10*3/uLBon Secours Richmond Community HospitalNeutrophils/100 WBC (Bld) 71.3 %[facility] HospitalPlatelet mean volume (Bld) [Entitic vol]8.3 fL7 - 12 [facility] CenterPlatelets (Bld) [#/Vol]130 10*3/uLSelect Medical Specialty Hospital - CantonRBC (Bld) [#/Vol]4.49 10*6/[facility] CenterWBC corrected for nucl RBC Auto (Bld) [#/Vol]14.6HighTorrance State HospitalCalcium.ionized (Bld) [Mass/Vol]on 41-62-4619PuzAbcyexSouthern Ohio Medical Center IONIZED CALCIUM4.8 mg/dLNormal4.5-5.3PLima City HospitalComment on above: Performed By: #### PINR, 96635-7, CMP, 26290-3, 2777-1, CBCA, 81391-4 #### [facility] ([id number]) [address] [place] [address], [address] [place], [place] [address]Uwbwfhm calciumon 58-44-8012Qyhckxf.ionized (Bld) [Mass/Vol]4.8 mg/dL4.5 - 5.3 mg/dLOhio State Harding HospitalIonized magnesiumon 05-25-2024 Magnesium Ionized ISE (Bld) [Moles/Vol]0.56 mmol/L0.45 - 0.74 mmol/LProMedica Health SystemComment on above:NEW REFERENCE RANGEMAGNESIUMon 05-75-2736Ojpiuzyye [Mass/Vol]1.8 mg/dLNormal1.8-2.6ProMercy Memorial HospitalComment on above: Performed By: #### BERNARD, 80578-6, CMP, 00493-6, 2777-1, CBCA, 39038-2 #### [facility] ([id number]) [address] [place] [address], [address] [place], [place] [address]Gmrbuvziafy 13-07-3868Dwydvyimy [Mass/Vol]1.8 mg/dL1.8 - 2.6 mg/dLProBrown Memorial HospitalMagnesium Ionized ISE (Bld) [Moles/Vol]on 05-25-2024 ProMedicPhillips Eye Institute SystemMagnesium [Moles/Vol]0.56 mmol/LNormal0.45-0.74ProMercy Memorial HospitalComment on above:Result Comment: NEW REFERENCE RANGEPerformed By: #### BERNARD, 99537-3, CMP, 38897-2, 2777-1, CBCA, 10607-4 #### [facility] ([id number]) [address] [place] [address], [address] [place], [place] [address]Ch Panel Informationon 43-09-1933GsxSbllwqSouthern [facility] Medical Center POTASSIUMon 47-85-5857Xytaijmec [Moles/Vol]3.9 mmol/LNormal3.5-5.0ProMercy Memorial HospitalComment on above:Performed By: #### BERNARD, 60176-4, CMP, 03342-3, 2777-1, CBCA, 44618-1 #### [facility] ([id number]) [address] [place] [address], [address] [place], [place] [address]Icpdgkxwrci 53-89-7910Brzsewqei [Moles/Vol]3.9 mmol/L3.5 - 5.0 mmol/LProMedAvita Health System Ontario Hospital SystemPotassium [Moles/Vol]on 78-22-9530ValHtaccg Health SystemBacteria identified Aer cx Nom (Bld)on 42-71-9781Hprrpqnlwdcmew and review of laboratory resultsAbnormalProMedica Health SystemService comment (Unsp spec) [Interp]ESCHERICHIA COLIAbnormalProMedica Health SystemService comment (Unsp spec) [Interp]FOR SUSCEPTIBILITY, SEE PREVIOUS REPORT.[facility] ProMedica Health SystemInterpretation and review of laboratory resultsAbnormal ProMdale medical centera Health SystemService comment (Unsp spec) [Interp]ESCHERICHIA COLI AbnormalProMedica Health SystemService comment (Unsp spec) [Interp]Detected ProMedica Health SystemProUniversity Hospitals Beach[facility] Medical Centerca Health SystemCBC AND AUTO DIFFon 06-33-6088Ymlx form neutrophils/100 WBC (Bld)3.0 %NormalAdena Health SystemComment on above:Performed By: #### PINR, 60207-4, CMP, 06145-6, 2777-1, CBCA, 35607-2 #### [facility] ([id number]) [address], [address] [place], [place] [address]Aabhjcxpvbw (Bld) [#/Vol]0.2 10*3/uLNormal0.0-0.4Adena Health SystemComment on above:Performed By: #### PINR, 03464-6, CMP, 37349-5, 2777-1, CBCA, 30656-7 #### [facility] ([id number]) [address], [address] [place], [place] [address]Vlliaotbrzf/100 WBC (Bld)1.0 %NormalMercy Health St. [facility]'s [facility] Comment on above:Performed By: #### PINR, 24208-0, CMP, 68656-3, 2777-1, CBCA, 20338-9 #### [facility] ([id number]) [address], [address] [place], [place] [address]Mbhmcijzhdg distribution width (RBC) [Ratio]15.3 %High11.5-15.0 [facility] SystemComment on above:Performed By: #### PINR, 45627-7, CMP, 73865-0, 2777-1, CBCA, 90803-9 #### [facility] ([id number]) [address], [address] [place], [place] [address]Khridvfuzc (Bld) [Volume fraction]34.2 %Pzs68-96TpzIstszi [facility] HospitalComment on above:Performed By: #### PINR, 51716-9, CMP, 63605-8, 2777-1, CBCA, 75279-3 #### [facility] ([id number]) [address], [address] [place], [place] [address]Fbkyfffwro (Bld) [Mass/Vol]11.5 g/dLLow11.7-15.5ProMedMercy Health Willard Hospital HospitalComment on above:Performed By: #### PINR, 04578-8, CMP, 34805-2, 2777- 1, CBCA, 72065-6 #### [facility] ([id number]) [address], [address] [place], [place] [address]Xlnimhqmadx (Bld) [#/Vol]2.4 10*3/uLNormal1.0-3.5PWayne HealthCare Main Campus HospitalComment on above:Performed By: #### PINR, 52567-6, CMP, 69967-8, 2777-1, CBCA, 18881-7 #### [facility] ([id number]) [address], [address] [place], [place] [address]Epdhijwhgdk/100 WBC (Bld)11.0 %NormalProHocking Valley Community Hospital Hospital Comment on above:Performed By: #### PINR, 79054-5, CMP, 03179-9, 2777-1, CBCA, 41578-1 #### [facility] ([id number]) [address], [address] [place], [place] [address]BGG (RBC) [Entitic mass]29.8 miAytgdf40-20OawFpythi [place] HospitalComment on above:Performed By: #### PINR, 38069-9, CMP, 76117-9, 2777-1, CBCA, 64807-6 #### [facility] ([id number]) [address], [address] [place], [place] [address]MAKB (RBC) [Mass/Vol]33.7 g/mPQdydwd06-07YvaWslrjq [place] HospitalComment on above:Performed By: #### PINR, 66873-3, CMP, 09775-0, 2777-1, CBCA, 82812-2 #### [facility] ([id number]) [address], [address] [place], [place] [address]VTF (RBC) [Entitic vol]89 bGOooyer63-712ExyYicuno [facility] HospitalComment on above:Performed By: #### PINR, 27265-3, CMP, 51326-4, 2777-1, CBCA, 30267-7 #### [facility] ([id number]) [address], [address] [place], [place] [address]Vcqwjhnji (Bld) [#/Vol]0.9 10*3/uLNormal0-0.9ProHocking Valley Community Hospital HospitalComment on above:Performed By: #### PINR, 35485-4, CMP, 58876-4, 2777-1, CBCA, 41714-6 #### [facility] ([id number]) [address], [address] [place], [place] [address]Loyekqxzl/100 WBC (Bld)4.0 %NormalProHocking Valley Community Hospital Hospital Comment on above:Performed By: #### PINR, 79368-7, CMP, 77989-4, 2777-1, CBCA, 34035-8 #### [facility] ([id number]) [address], [address] [place], [place] [address]Sqhetfucixw (Bld) [#/Vol]18.5 10*3/uLHigh1.5-6.6ProUniversity Hospitals Beachwood Medical Centerca Ashraf HospitalComment on above:Performed By: #### PINR, 20513-3, CMP, 39473-9, 2777- 1, CBCA, 18761-9 #### [facility] ([id number]) [address], [address] [place] [address]Sdoqqegu mean volume (Bld) [Entitic vol]8.6 fLNormal7-12 [facility]raf HospitalComment on above:Performed By: #### PINR, 31160-2, CMP, 81402-2, 2777-1, CBCA, 10899-5 #### [facility] ([id number]) [address], [address] [place], [place] [address]Gijhbpbkl (Bld) [#/Vol]103 10*3/nPSxi777-250NigNydnmw Ashraf HospitalComment on above:Performed By: #### PINR, 56498-6, CMP, 50013-9, 2777-1, CBCA, 05425-1 #### [facility] ([id number]) [address], [address] [place], [place] [address]SBR COUNT3.87 X10E12/LNormal3.80-5.20[facility] Comment on above:Performed By: #### PINR, 12897-8, CMP, 66173-2, 2777-1, CBCA, 04611-3 #### [facility] ([id number]) [address], [address] [place], [place] [address]GLV morphology finding Nom (Bld)NORMALNormalProMedica Ashraf HospitalComment on above:Performed By: #### PINR, 29025-1, CMP, 27044-0, 2777-1, CBCA, 87152-8 #### [facility] ([id number]) [address], [address] [place], [place] [address]BBJ VWZCNFAYIQ19.0 %NormalProMedica Ashraf HospitalComment on above:Performed By: #### PINR, 88320-7, CMP, 21366-4, 2777-1, CBCA, 62827-3 #### [facility] ([id number]) [address], [address] [place], [place] [address]JWH (Bld) [#/Vol]22.0 10*3/uLHigh4.0-11.0[facility] HospitalComment on above:Performed By: #### PINR, 55090-3, CMP, 52619-9, 2777-1, CBCA, 76048-0 #### [facility] ([id number]) [address] [place], [place] [address]BWJ auto differentialon 83-58-6274Gmld form neutrophils/100 WBC (Bld)3 %[facility] HospitalEosinophils (Bld) [#/Vol]0.2 10*3/uLOhio State Harding HospitalEosinophils/100 WBC (Bld)1 %[facility] HospitalErythrocyte distribution width (RBC) [Ratio]15.3 %High11.5 - 15.0 %[facility] Hematocrit (Bld) [Volume fraction]34.2 %Low35 - 47 %[facility] Hemoglobin (Bld) [Mass/Vol]11.5 g/dLLow11.7 - 15.5 g/dLOhio State Harding Hospital Interpretation and review of laboratory resultsAbnormalOhio State Harding Hospital Lymphocytes (Bld) [#/Vol]2.4 10*3/uLOhio State Harding HospitalLymphocytes/100 WBC (Bld)11 %[facility] HospitalMCH (RBC) [Entitic mass]29.8 pg27 - 34 pg [facility] HospitalMCHC (RBC) [Mass/Vol]33.7 g/dL32 - 36 g/dLOhio State Harding HospitalMCV (RBC) [Entitic vol]89 fL80 - 100 [facility] Monocytes (Bld) [#/Vol]0.9 10*3/uLOhio State Harding HospitalMonocytes/100 WBC (Bld) 4 %[facility] HospitalNeutrophils (Bld) [#/Vol]18.5 10*3/uLHighSt. Mary's Medical Center SystemPlatelet mean volume (Bld) [Entitic vol]8.6 fL7 - 12 fLPMartins Ferry Hospital SystemPlatelets (Bld) [#/Vol]103 10*3/uLLowOhio State Harding Hospital Polymorphonuclear cells/100 WBC (Bld)NORMALProBrown Memorial HospitalRBC (Bld) [#/Vol]3.87 10*6/uLCone Health MedCenter High Pointegmented neutrophils/100 WBC (Bld)81 %[facility] HospitalWBC corrected for nucl RBC Auto (Bld) [#/Vol]22High [facility] State HospitalCOMPREHENSIVE METABOLIC PANELon 04-27-9292Mwmhaza [Mass/Vol]2.8 g/dLLow3.2-5.3PLima City HospitalComment on above:Performed By: #### BERNARD, 93062-4, CMP, 30573-9, 2777-1, CBCA, 97853-2 #### [facility] ([id number]) [address], [address] [place], [place] [address]LGY [Catalytic activity/Vol]200 U/YXegi13-702UqhIlixgcAdena Health SystemComment on above:Performed By: #### KATLYNR, 23386-1, CMP, 74999-7, 2777-1, CBCA, 62262-5 #### [facility] ([id number]) [address], [address] [place], [place] [address]ION [Catalytic activity/Vol]53 U/LHigh0-31PLima City HospitalComment on above:Performed By: #### PINR, 25343-3, CMP, 91341-1, 2777-1, CBCA, 35847-8 #### [facility] ([id number]) [address], [address] [place], [place] [address]Alawz gap [Moles/Vol]9 mmol/LNormal5-15[facility] Comment on above:Performed By: #### PINR, 78173-2, CMP, 24818-5, 2777-1, CBCA, 32181-3 #### [facility] ([id number]) [address], [address] [place], [place] [address]OKP [Catalytic activity/Vol]56 U/LHigh0-41[facility] HospitalComment on above:Performed By: #### PINR, 51741-9, CMP, 73274-4, 2777-1, CBCA, 50799-7 #### [facility] ([id number]) [address], [address] [place], [place] [address]Htcjlwclw [Mass/Vol]0.6 mg/dLNormal0.3-1.2ProMednorth [facility] hospital Ashraf HospitalComment on above:Performed By: #### BERNARD, 11378-2, CMP, 72297-7, 2777-1, CBCA, 37806-0 #### [facility] ([id number]) [address], [address] [place], [place] [address]Qsgtwzn [Mass/Vol]8.6 mg/dLNormal8.5-10.5PWayne HealthCare Main Campus HospitalComment on above:Performed By: #### PINR, 26305-4, CMP, 96228-9, 2777-1, CBCA, 67392-6 #### [facility] ([id number]) [address], [address] [place], [place] [address]Pjuixhcb [Moles/Vol]107 mmol/KZsdxwu76-931XbmLihjen Ashraf HospitalComment on above:Performed By: #### PINR, 47479-6, CMP, 64306-5, 2777-1, CBCA, 32556-9 #### [facility] ([id number]) [address], [address] [place], [place] [address]DV7 [Moles/Vol]25 mmol/BJoduzg18-36VxyQrhosp [facility] Comment on above:Performed By: #### PINR, 82156-6, CMP, 12695-5, 2777-1, CBCA, 34756-6 #### [facility] ([id number]) [address], [address] [place], [place] [address]Juqblclzrc [Mass/Vol]0.95 mg/dLNormal0.40-1.00ProMercy Memorial HospitalComment on above:Result Comment: METHOD TRACEABLE TO IDMS STANDARD Performed By: #### PINR, 31384-6, CMP, 57929-8, 2777-1, CBCA, 13558-0 #### [facility] ([id number]) [address], [address] [place], [place] [address]MBG/1.73 sq M.predicted among non-blacks MDRD (S/P/Bld) [Vol rate/Area]66 mL/min/{1.73_m2}Normal>59ProMercy Memorial HospitalComment on above: Result Comment: Reported eGFR is based on the CKD-EPI 2020 equation that does not use a race coefficient.Performed By: #### BERNARD, 96366-6, CMP, 25657-6, 2777- 1, CBCA, 91015-6 #### [facility] ([id number]) [address], [address] [place], [place] [address]Fegmpqn [Mass/Vol]80 mg/sTSyzrec18-83FwhEblnjv [facility] Comment on above:Performed By: #### PINR, 08394-2, CMP, 61276-4, 2777-1, CBCA, 25618-0 #### [facility] ([id number]) [address], [address] [place], [place] [address]Vufdepkhz [Moles/Vol]3.7 mmol/LNormal3.5-5.0ProMercy Memorial HospitalComment on above:Performed By: #### PINR, 44496-1, CMP, 99895-3, 2777-1, CBCA, 30827-9 #### [facility] ([id number]) [address], [address] [place], [place] [address]Gfppudp [Mass/Vol]5.8 g/dLLow6.0-8.0[facility] Comment on above:Performed By: #### PINR, 89826-5, CMP, 44170-5, 2777-1, CBCA, 78921-8 #### [facility] ([id number]) [address], [address] [place], [place] [address]Vntbxz [Moles/Vol]141 mmol/NJunamw465-236KkxBxtiqh [facility] HospitalComment on above:Performed By: #### PINR, 93659-9, CMP, 07641-6, 2777-1, CBCA, 95548-5 #### [facility] ([id number]) [address], [address] [place], [place] [address]Bxch nitrogen [Mass/Vol]33 mg/dLHigh5-27ProMercy Memorial HospitalComment on above:Performed By: #### PINR, 44804-3, CMP, 90502-5, 2777-1, CBCA, 60223-4 #### [facility] ([id number]) [address], [address] [place] [address]Vsmjeegnkoasf metabolic panelon [id number] [Mass/Vol]2.8 g/dLLow3.2 - 5.3 g/dLProMedica Health SystemALP [Catalytic activity/Vol]200 U/L High39 - 130 U/LProMedica Health SystemALT No additional P-5'-P [Catalytic activity/Vol]53 U/LHigh0 - 31 U/LProMedica Health SystemAnion gap [Moles/Vol]9 mmol/L5 - 15 mmol/LProMedica Health SystemAST [Catalytic activity/Vol]56 U/LHigh 0 - 41 U/LProMedica Health SystemBilirubin [Mass/Vol]0.6 mg/dL0.3 - 1.2 mg/dL [facility] Health SystemCalcium [Mass/Vol]8.6 mg/dL8.5 - 10.5 mg/dLSt. Mary's Medical Center SystemChloride [Moles/Vol]107 mmol/L98 - 109 mmol/LProMedica Health SystemCO2 [Moles/Vol]25 mmol/L22 - 32 mmol/LPrMedical Center of the Rockies Health SystemCreatinine [Mass/Vol]0.95 mg/dL0.40 - 1.00 mg/dLOhio State Harding HospitalComment on above: METHOD TRACEABLE TO IDNV STANDARDeGFR (CKD-EPI)non-race cgcwplpea54- PINF [facility] HospitalComment on above: Reported eGFR is based on the CKD-EPI 2020 equation that does not use a race coefficient. Glucose [Mass/Vol]80 mg/dL65 - 99 mg/dLOhio State Harding HospitalInterpretation and review of laboratory resultsAbnormalProCleveland Clinic Mentor Hospital SystemPotassium [Moles/Vol]3.7 mmol/L3.5 - 5.0 mmol/LProMedica Health SystemProtein [Mass/Vol] 5.8 g/dLLow6.0 - 8.0 g/dLProCleveland Clinic Mentor Hospital SystemSodium [Moles/Vol]141 mmol/L134 - 146 mmol/[facility] SystemUrea nitrogen [Mass/Vol]33 mg/dLHigh5 - 27 mg/dLOhio State Harding HospitalIonized magnesiumon 31-30-0867Asdllfvzk Ionized ISE (Bld) [Moles/Vol]0.61 mmol/L0.45 - 0.74 mmol/[facility] SystemComment on above:NEW REFERENCE RANGEMAGNESIUMon 58-54-2631Pvluewymb [Mass/Vol]1.9 mg/dL Normal1.8-2.6Adena Health SystemComment on above:Performed By: #### PINR, 86821-2, CMP, 93859-5, 2777-1, CBCA, 95780-3 #### [facility] ([id number]) [address] [place] [address], [address] [place], [place] [address]Pmqkckupshc 43-74-4583Vwqkngmck [Mass/Vol]1.9 mg/dL1.8 - 2.6 mg/dLOhio State Harding HospitalMagnesium Ionized ISE (Bld) [Moles/Vol]on 05-24-2024 [facility] SystemMagnesium [Moles/Vol]0.61 mmol/LNormal0.45-0.74ProMercy Memorial HospitalComment on above:Result Comment: NEW REFERENCE RANGEPerformed By: #### PINR, 31634-2, CMP, 63656-2, 2777-1, CBCA, 41218-4 #### [facility] ([id number]) [address], [address] [place], [place] [address]Vm Panel Informationon 01-31-6356BpcAbappa Health System PHOSPHORUSon 56-47-2190Puipzsubv [Mass/Vol]3.1 mg/dLNormal2.4-4.9ProMercy Memorial HospitalComment on above:Performed By: #### PINR, 02337-9, CMP, 35393-1, 2777-1, CBCA, 07608-4 #### [facility] ([id number]) [address], [address] [place], [place] [address]XRMMAZEYGez 57-94-8957Axbnzxyvk [Moles/Vol]3.9 mmol/LNormal 3.5-5.0ProMercy Memorial HospitalComment on above:Performed By: #### PINR, 14481- 9, CMP, 10347-5, 2777-1, CBCA, 17523-8 #### [facility] ([id number]) [address], [address] [place], [place] [address]Qzzkkmofxrwt 27-98-6783Fxivgmuxx [Mass/Vol]3.1 mg/dL2.4 - 4.9 mg/dLProCleveland Clinic Mentor Hospital SystemPotassiumon 25-95-7651Zcgarxfrx [Moles/Vol]3.9 mmol/L3.5 - 5.0 mmol/LProMedica Health SystemPotassium [Moles/Vol]on 05-24-2024 [facility] Rehabilitationedic Health SystemBLOOD CULTUREon 97-08-9063Fyltvjct identified Aer cx Nom (Bld)SPECIMEN NOTES SUBOPTIMAL VOLUME OF BLOOD COLLECTED, RESULTS MAY BE AFFECTED. CULTURE RESULTS NO GROWTH 5 DAYSNormalProSelect Medical Specialty Hospital - Cincinnatio HospitalComment on above:Performed By: #### PINR, 87284-7, CMP, 42366-2, 2777-1, CBCA, 97245-0 #### [facility] ([id number]) [address], [address] [place], [place] [address]WAT AND AUTO DIFFon 54-81-7216Zhtq form neutrophils/100 WBC (Bld)16.0 %NormalProMedica Jacksboro HospitalComment on above:Performed By: #### PINR, 59133-8, CMP, 81768-1, 2777-1, CBCA, 52694-4 #### [facility] ([id number]) [address], [address] [place], [place] [address]Lzavfnzfiyb distribution width (RBC) [Ratio]15.2 %High11.5-15.0 ProMedica Jacksboro HospitalComment on above:Performed By: #### PINR, 09294-4, CMP, 38913-8, 7-1, CBCA, 86433-3 #### [facility] ([id number]) [address], [address] [place], [place] [address]Vghwhkyzey (Bld) [Volume fraction]34.6 %Bas24-47PjgXxjbxp [facility]sboro HospitalComment on above:Performed By: #### PINR, 49707-6, CMP, 79164-8, 7-1, CBCA, 77772-5 #### [facility] ([id number]) [address], [address] [place], [place] [address]Jmpfxohmsg (Bld) [Mass/Vol]11.7 g/zISkmysy85.7-15.5ProMedica Jacksboro HospitalComment on above:Performed By: #### PINR, 65755-3, CMP, 19287-5, 2777-1, CBCA, 96994-5 #### [facility] ([id number]) [address], [address] [place], [place] [address]Fopmdmocoei (Bld) [#/Vol]1.6 10*3/uLNormal1.0-3.5ProMedica Jacksboro HospitalComment on above:Performed By: #### PINR, 40650-6, CMP, 57619-1, 2777-1, CBCA, 29808-8 #### [facility] ([id number]) [address], [address] [place], [place] [address]Dcoccdtqdwq/100 WBC (Bld)4.0 %NormalProHocking Valley Community Hospital Hospital Comment on above:Performed By: #### PINR, 99515-8, CMP, 03224-7, 2777-1, CBCA, 41644-4 #### [facility] ([id number]) [address], [address] [place], [place] [address]QTD (RBC) [Entitic mass]29.7 bbGzyykr02-71OfjBvyumx [facility] HospitalComment on above:Performed By: #### PINR, 17654-0, CMP, 08541-9, 2777-1, CBCA, 36688-5 #### [facility] ([id number]) [address], [address] [place], [place] [address]NBGL (RBC) [Mass/Vol]33.7 g/dAUivpiz56-86QgyZcdezi [facility]edo HospitalComment on above:Performed By: #### PINR, 30149-4, CMP, 11195-8, 2777-1, CBCA, 07906-8 #### [facility] ([id number]) [address], [address] [place], [place] [address]XUM (RBC) [Entitic vol]88 xPRazrdl40-207BoiQwretp [facility] HospitalComment on above:Performed By: #### PINR, 70127-5, CMP, 06838-0, 2777-1, CBCA, 10280-8 #### [facility] ([id number]) [address], [address] [place], [place] [address]Mphhebbdgsbigi/100 WBC (Bld)1.0 %NormalAdena Health System Comment on above:Performed By: #### PINR, 67118-9, CMP, 80345-8, 2777-1, CBCA, 94536-0 #### [facility] ([id number]) [address], [address] [place], [place] [address]Cabfaxgox (Bld) [#/Vol]0.4 10*3/uLNormal0-0.9ProMercy Memorial HospitalComment on above:Performed By: #### PINR, 66461-8, CMP, 12465-0, 2777-1, CBCA, 53790-8 #### [facility] ([id number]) [address], [address] [place], [place] [address]Byvadxdjh/100 WBC (Bld)1.0 %NormalAdena Health System Comment on above:Performed By: #### PINR, 15719-9, CMP, 54955-2, 2777-1, CBCA, 04819-0 #### [facility] ([id number]) [address], [address] [place], [place] [address]FYWYPRULCZ VACUOLES1+AbnormalNONEProMedica [facility] Comment on above:Performed By: #### PINR, 20621-2, CMP, 16566-8, 2777-1, CBCA, 34333-1 #### [facility] ([id number]) [address], [address] [place], [place] [address]Uqrefgfbjuc (Bld) [#/Vol]36.6 10*3/uLHigh1.5-6.6ProMercy Memorial HospitalComment on above:Performed By: #### PINR, 06998-4, CMP, 21409-5, 2777- 1, CBCA, 16879-3 #### [facility] ([id number]) [address], [address] [place], [place] [address]Dbuzumjp mean volume (Bld) [Entitic vol]8.8 fLNormal7-12 [facility]raf HospitalComment on above:Performed By: #### PINR, 07907-5, CMP, 82618-7, 2777-1, CBCA, 98461-5 #### [facility] ([id number]) [address], [address] [place], [place] [address]Lgtzvnerc (Bld) [#/Vol]91 10*3/iKTgh190-904DmzQbvbee Ashraf HospitalComment on above:Performed By: #### PINR, 69988-5, CMP, 12981-6, 2777-1, CBCA, 06594-2 #### [facility] ([id number]) [address], [address] [place], [place] [address]MST COUNT3.92 X10E12/LNormal3.80-5.20[facility] Comment on above:Performed By: #### PINR, 98595-9, CMP, 54268-0, 2777-1, CBCA, 03426-2 #### [facility] ([id number]) [address], [address] [place], [place] [address]DXZ morphology finding Nom (Bld)NORMALNormalProMedica Ashraf HospitalComment on above:Performed By: #### PINR, 34897-3, CMP, 00661-1, 2777-1, CBCA, 67446-4 #### [facility] ([id number]) [address], [address] [place], [place] [address]EYL MUILBFJLEV03.0 %NormalProMedica Ashraf HospitalComment on above:Performed By: #### PINR, 95469-1, CMP, 85536-7, 2777-1, CBCA, 45214-0 #### [facility] ([id number]) [address], [address] [place], [place] [address]EQW (Bld) [#/Vol]39.0 10*3/uLHigh4.0-11.0Adena Health SystemComment on above:Performed By: #### PINR, 15404-5, CMP, 82635-1, 2777-1, CBCA, 46807-4 #### [facility] ([id number]) [address], [address] [place], [place] [address]VJJ auto differentialon 72-60-2532Kmiu form neutrophils/100 WBC (Bld)16 %[facility] SystemErythrocyte distribution width (RBC) [Ratio]15.2 %High11.5 - 15.0 %[facility] SystemHematocrit (Bld) [Volume fraction]34.6 %Low35 - 47 %[facility] SystemHemoglobin (Bld) [Mass/Vol]11.7 g/dL11.7 - 15.5 g/dLSt. Mary's Medical Center SystemInterpretation and review of laboratory results AbnormalSt. Mary's Medical Center SystemLeukocyte toxic vacuoles LM Ql (Bld)1+Abnormal NONE^NONESt. Mary's Medical Center SystemLymphocytes (Bld) [#/Vol]1.6 10*3/uLSt. Mary's Medical Center SystemLymphocytes/100 WBC (Bld)4 %[facility] Harding HospitalMCH (RBC) [Entitic mass]29.7 pg27 - 34 pgPSouthern Ohio Medical CenterMCHC (RBC) [Mass/Vol]33.7 g/dL32 - 36 g/dLOhio State Harding HospitalMCV (RBC) [Entitic vol]88 fL80 - [address] [facility] SystemMetamyelocytes/100 WBC (Bld)1 %[facility] System Monocytes (Bld) [#/Vol]0.4 10*3/uLSt. Mary's Medical Center SystemMonocytes/100 WBC (Bld) 1 %[facility] SystemNeutrophils (Bld) [#/Vol]36.6 10*3/uLHighSt. Mary's Medical Center SystemPlatelet mean volume (Bld) [Entitic vol]8.8 fL7 - 12 fLPMartins Ferry Hospital SystemPlatelets (Bld) [#/Vol]91 10*3/uLLowProMedica Health System Polymorphonuclear cells/100 WBC (Bld)NORMALOhio State Harding HospitalRBC (Bld) [#/Vol]3.92 10*6/uLCone Health MedCenter High Pointegmented neutrophils/100 WBC (Bld)78 %[facility] HospitalWBC corrected for nucl RBC Auto (Bld) [#/Vol]39High [facility] State HospitalCOMPREHENSIVE METABOLIC PANELon 88-21-6564Rrqsuoq [Mass/Vol]3.1 g/dLLow3.2-5.3PWayne HealthCare Main Campus HospitalComment on above:Performed By: #### PINR, 99166-6, CMP, 23232-5, 2777-1, CBCA, 28514-6 #### [facility] ([id number]) [address], [address] [place], [place] [address]PYZ [Catalytic activity/Vol]256 U/IRfqs65-964FhiOmytkfMercy Memorial HospitalComment on above:Performed By: #### PINR, 95224-8, CMP, 39558-3, 2777-1, CBCA, 53743-8 #### [facility] ([id number]) [address], [address] [place], [place] [address]MAW [Catalytic activity/Vol]65 U/LHigh0-31PLima City HospitalComment on above:Performed By: #### PINR, 50677-1, CMP, 89388-7, 2777-1, CBCA, 13309-6 #### [facility] ([id number]) [address], [address] [place], [place] [address]Bwqbq gap [Moles/Vol]14 mmol/LNormal5-15[facility] HospitalComment on above:Performed By: #### PINR, 16721-6, CMP, 38127-9, 2777-1, CBCA, 56551-7 #### [facility] ([id number]) [address], [address] [place], [place] [address]HNG [Catalytic activity/Vol]48 U/LHigh0-41ProMedica [facility]raf HospitalComment on above:Performed By: #### PINR, 46092-0, CMP, 93387-5, 7-1, CBCA, 93493-6 #### [facility] ([id number]) [address], [address] [place], [place] [address]Ztloqmlrk [Mass/Vol]0.6 mg/dLNormal0.3-1.2ProMedica [facility] HospitalComment on above:Performed By: #### PINR, 15102-4, CMP, 39896-7, 7-1, CBCA, 29095-4 #### [facility] ([id number]) [address], [address] [place], [place] [address]Cvhepog [Mass/Vol]8.5 mg/dLNormal8.5-10.5ProMedica [facility] HospitalComment on above:Performed By: #### PINR, 81659-3, CMP, 16301-0, 2776-, CBCA, 08032-7 #### [facility] ([id number]) [address], [address] [place], [place] [address]Cywobcha [Moles/Vol]103 mmol/DWfpila33-093LynIllflu Ashraf HospitalComment on above:Performed By: #### PINR, 83987-4, CMP, 36856-8, 2776-, CBCA, 05212-2 #### [facility] ([id number]) [address], [address] [place], [place] [address]YS7 [Moles/Vol]20 mmol/MWch05-04BgfVrmxqs [facility]raf HospitalComment on above:Performed By: #### PINR, 46122-0, CMP, 43101-5, 2777-1, CBCA, 68966-8 #### [facility] ([id number]) [address], [address] [place], [place] [address]Eyoizdkdir [Mass/Vol]1.47 mg/dLHigh0.40-1.00ProMercy Memorial HospitalComment on above:Result Comment: METHOD TRACEABLE TO IDMS STANDARD Performed By: #### BERNARD, 25855-9, CMP, 06995-9, 7-1, CBCA, 03219-0 #### [facility] ([id number]) [address], [address] [place], [place] [address]RDR/1.73 sq M.predicted among non-blacks MDRD (S/P/Bld) [Vol rate/Area]39 mL/min/{1.73_m2}Low>59ProMercy Memorial HospitalComment on above: Result Comment: Reported eGFR is based on the CKD-EPI 2020 equation that does not use a race coefficient.Performed By: #### BERNARD, 70197-5, CMP, 33313-3, 2776- 1, CBCA, 37935-7 #### [facility] ([id number]) [address], [address] [place], [place] [address]Garyuhs [Mass/Vol]93 mg/eYPeesuu94-41UpsHjvbdp [facility] Comment on above:Performed By: #### BERNARD, 94009-2, CMP, 93883-2, 2776-, CBCA, 23379-0 #### [facility] ([id number]) [address], [address] [place], [place] [address]Qlgccgxpj [Moles/Vol]3.7 mmol/LNormal3.5-5.0ProMercy Memorial HospitalComment on above:Performed By: #### BERNARD, 34970-3, CMP, 56553-8, 2777-1, CBCA, 53560-9 #### [facility] ([id number]) [address], [address] [place], [place] [address]Zkxynhq [Mass/Vol]6.5 g/dLNormal6.0-8.0[facility] Comment on above:Performed By: #### BERNARD, 48025-4, CMP, 11378-3, 2777-1, CBCA, 47073-1 #### [facility] ([id number]) [address], [address] [place], [place] [address]Inngnj [Moles/Vol]137 mmol/THejskk841-677TgbUnxhpt [place] HospitalComment on above:Performed By: #### PINR, 96368-0, CMP, 83883-2, 2776-1, CBCA, 41224-8 #### [facility] ([id number]) [address], [address] [place], [place] [address]Jcbh nitrogen [Mass/Vol]41 mg/dLHigh5-27ProMercy Memorial HospitalComment on above:Performed By: #### PINR, 08987-9, CMP, 20377-7, 2776-1, CBCA, 79998-6 #### [facility] ([id number]) [address], [address] [place], [place] [address]Aofiwdqihabzw metabolic panelon 16-21-0658Uhtfvfr [Mass/Vol]3.1 g/dLLow3.2 - 5.3 g/dLProMedica Health SystemALP [...] mmol/LProMedica Health SystemCreatinine [Mass/Vol]1.47 mg/dLHigh0.40 - 1.00 mg/dLOhio State Harding HospitalComment on above:METHOD TRACEABLE TO IDNV STANDARDeGFR (CKD-EPI)non-race fhmuybdlx69HlbLifePoint HealthComment on above: Reported eGFR is based on the CKD-EPI 2020 equation that does not use a race coefficient. Glucose [Mass/Vol]93 mg/dL65 - 99 mg/dLOhio State Harding HospitalPotassium [Moles/Vol]3.7 mmol/L3.5 - 5.0 mmol/LPrMedical Center of the Rockies Health SystemProtein [Mass/Vol] 6.5 g/dL6.0 - 8.0 g/dLSt. Mary's Medical Center SystemSodium [Moles/Vol]137 mmol/L134 - 146 mmol/[facility] SystemUrea nitrogen [Mass/Vol]41 mg/dLHigh5 - 27 mg/dLOhio State Harding HospitalMAGNESIUMon 99-93-9498Udzyjfdbj [Mass/Vol]2.0 mg/dL Normal1.8-2.6A[facility] Health SystemComment on above:Performed By: #### BERNARD, 30353-8, CMP, 74334-7, 7-1, CBCA, 93149-6 #### [facility] ([id number]) [address] [place], [place] [address]Iabaotdmtvn 59-86-9112Wmrrppfrb [Mass/Vol]2 mg/dL1.8 - 2.6 mg/dL [facility] HospitalNo Panel Informationon 12-97-0510Faclkpvnajnkwu and review of laboratory resultsAbnormalProBrown Memorial HospitalProBrown Memorial HospitalPHOSPHORUSon 87-59-5136Tzrexbieg [Mass/Vol]2.4 mg/dLNormal2.4-4.9[facility] Health SystemComment on above:Performed By: #### KATLYNR, 56779-5, CMP, 30218-9, 2777-1, CBCA, 41855-1 #### [facility] ([id number]) [address] [place], [place] [address]WAYBHOOGTkg 09-30-3033Iypswdwvk [Moles/Vol]3.7 mmol/LNormal 3.5-5.0A[facility] Health SystemComment on above:Performed By: #### PINR, 86874- 9, CMP, 81003-0, 2777-1, CBCA, 13386-6 #### [facility] ([id number]) [address], [address] [place], [place] [address]Wbpnoqycp [Moles/Vol]3.5 mmol/LNormal3.5-5.0A[facility] Health SystemComment on above:Performed By: #### PINR, 02606-5, CMP, 82715-4, 2777-1, CBCA, 54017-5 #### [facility] ([id number]) [address], [address] [place], [place] [address]Axhvhqkbqdbh 27-33-1838Xfibosjhz [Mass/Vol]2.4 mg/dL2.4 - 4.9 mg/dLOhio State Harding HospitalPotassiumon 19-59-5189Csbzkzmil [Moles/Vol]3.7 mmol/L3.5 - 5.0 mmol/LPrMedical Center of the Rockies Health SystemPotassium [Moles/Vol]3.5 mmol/L3.5 - 5.0 mmol/LPrCleveland Clinic Euclid Hospital SystemPotassium [Moles/Vol]on 97-22-0906BzvDdhpdmWayne Memorial HospitalProcalcitoninon 85-09-1492Bmctbqjirnllm [place] [Mass/Vol]242.46 ng/mLHighNINF - 0.05 ng/mLOhio State Harding HospitalComment on above:NOTE <0.50 ng/mL - Low risk of severe sepsis and/or septic shock. <2.00 ng/mL - Recommend retesting within 6-24 hours. >2.00 ng/mL - High risk of sepsis and/or septic shock. Procalcitonin IA [Mass/Vol]on 87-53-9725ADSEKKWGQVVDU379.46 ng/mLHigh<0.05 [facility] SystemComment on above:Result Comment: NOTE <0.50 ng/mL - Low risk of severe sepsis and/or septic shock. <2.00 ng/mL - Recommend retesting within 6-24 hours. >2.00 ng/mL - High risk of sepsis and/or septic shock.Performed By: #### PINR, 43120-2, CMP, 49856-9, 2777-1, CBCA, 37868-9 #### [facility] ([id number]) [address], [address] [place], [place] [address]Fvgtkges identified Cx Nom (U)on 27-04-4984Bgqaerm comment (Unsp spec) [Interp]<10,000 ORGANISMS/ML NORMAL URO GENITAL FLORAProMedica Health SystemProCleveland Clinic Mentor Hospital SystemCBC AND AUTO DIFFon 52-14-7361Tkqk form neutrophils/100 WBC (Bld)35.0 %NormalProMedica Jacksboro HospitalComment on above: Performed By: #### CBCA, CMP, 96392-5, 42026-5, 2777-1 ####[facility] ([id number])[address], [address] [place] [address]OXQXW BODIES1+ AbnormalNONEProMedica Jacksboro HospitalComment on above:Performed By: #### CBCA, CMP, 74354-4, 08567-2, 2777-1 ####[facility] ([id number])[address], [address] [place] [address]Emqzucvanze/100 WBC (Bld)4.0 %Normal Pro[facility]ica [facility] HospitalComment on above:Performed By: #### CBCA, CMP, 29042-1, 00089-7, 2777-1 ####[facility] ([id number])[address], [address] [place] [address]Zpezfoahdhklfv/100 WBC (Bld)5.0 %NormalProMedica Jacksboro HospitalComment on above:Performed By: #### CBCA, CMP, 93092-7, 25537-5, 2777-1 ####[facility] ([id number])[address], [address] [place] [address]Wkcmnraei/100 WBC (Bld)2.0 %NormalProMedica Jacksboro HospitalComment on above:Performed By: #### CBCA, CMP, 65894-6, 87198-2, 277- ####[facility] ([id number])[address], [address] [place] [address] 26669UFRAHFGZQ9.0 %NormalProUniversity Hospitals Beachwood Medical Centerca Jacksboro HospitalComment on above:Performed By: #### CBCA, CMP, 23743-6, 94162-0, 277- ####[facility] ([id number])[address], [address] [place] [address]AUP COUNT3.55 X10E12/LLow3.80-5.20ProMedica [facility]boro HospitalComment on above:Performed By: #### CBCA, CMP, 98530-4, 23252-5, 277- ####[facility] ([id number])[address], [address] [place] [address]UCB GHKAOIZTLF88.0 %NormalProUniversity Hospitals Beachwood Medical Centerca Jacksboro HospitalComment on above:Performed By: #### CBCA, CMP, 21420-9, 57608-4, 27701-21 ####[facility] ([id number])[address], [address] [place] [address]FQQ (Bld) [#/Vol]28.1 10*3/uLHigh4.0-11.0ProUniversity Hospitals Beachwood Medical Centerca Jacksboro HospitalComment on above: Performed By: #### CBCA, CMP, 19803-8, 99436-8, 277- ####[facility] ([id number])[address], [address] [place] [address]Djbaquuazaq distribution width (RBC) [Ratio]14.9 %Ppjqrl86.5-15.0[facility] Comment on above:Performed By: #### CBCA, CMP, 93952-7, 58954-5, 27701-21 ####[facility] ([id number])[address], [address] [place] [address]Wxkevwqgsc (Bld) [Volume fraction]31.3 %Nqa70-56JosWpsfwxOhio State [facility] Comment on above:Performed By: #### CBCA, CMP, 67503-3, 60660-9, 277-1 ####[facility] ([id number])[address], [address] [place] [address] 25138Osyfcivwfq (Bld) [Mass/Vol]10.6 g/dLLow11.7-15.[address] [place] [address] Comment on above:Performed By: #### CBCA, CMP, 07169-7, 23875-9, 27701-21 ####[facility] ([id number])0 [address] [address] [place] [address] 48090Cubfuexsgqz (Bld) [#/Vol]1.1 10*3/uLNormal1.0-3.[address] [place] [address] Comment on above:Performed By: #### CBCA, CMP, 62098-3, 94828-9, 277- ####[facility] ([id number])0 [address] [address] [place] [address] 56427QHN (RBC) [Entitic mass]29.8 gfPvbrco82-35UjiMnnkok Health SystemComment on above:Performed By: #### CBCA, CMP, 15457-1, 86953-7, 277- ####[facility] ([id number])[address] [address] [place] [address] 50335AKRP (RBC) [Mass/Vol]33.7 g/nEHucbed20-55LetWmqzey Health SystemComment on above: Performed By: #### CBCA, CMP, 79652-4, 02697-9, 277-1 ####[facility] ([id number])[address], [address] [place] [address] 19046XKN (RBC) [Entitic vol]88 vHZokock72-424RiqSoiacy Health SystemComment on above:Performed By: #### CHA, CMP, 50982-2, 06373-9, 2777-1 ####[facility] ([id number])[address], [address] [place] [address] 92016Akfimxppm (Bld) [#/Vol]0.6 10*3/uLNormal0-0.9ProCooper Green Mercy Hospital Health SystemComment on above:Performed By: #### CHA, CMP, 61014-4, 47581-3, 2777-1 ####[facility] ([id number])[address], [address] [place] [address] 26775Zgkaznifdpl (Bld) [#/Vol] 24.2 10*3/uLHigh1.5-6.6ProCooper Green Mercy Hospital Health SystemComment on above:Performed By: #### CBCAndrew, CMP, 20995-7, 44614-1, 2777-1 ####[facility] ([id number])[address], [address] [place] [address] 74576Rwgyujwj mean volume (Bld) [Entitic vol]8.3 fLNormal7-12PSaint [facility] Health SystemComment on above:Performed By: #### CBCA, CMP, 96672-3, 02737-9, 2777-1 ####[facility] ([id number])[address] [address] [place] [address] 62893Bwlaerkpt (Bld) [#/Vol]60 10*3/aWMcp128-645AmmBqdkga Health SystemComment on above:Performed By: #### CBCA, CMP, 44324-4, 61735-7, 2777-1 ####[facility] ([id number])[address], [address] [place] [address] 84809KFR auto differentialon 78-53-3112Flwn form neutrophils/100 WBC (Bld)35 %[facility] SystemDohle body LM Ql (Bld)1+AbnormalNONE^NONESt. Mary's Medical Center SystemInterpretation and review of laboratory resultsAbnormalProCleveland Clinic Mentor Hospital SystemLymphocytes/100 WBC (Bld)4 %[facility] SystemMetamyelocytes/100 WBC (Bld)5 %[facility] SystemMonocytes/100 WBC (Bld)2 %[facility] SystemMyelocytes/100 WBC (Bld)3 %[facility] SystemRBC (Bld) [#/Vol]3.55 10*6/uLLowSt. Mary's Medical Center System Segmented neutrophils/100 WBC (Bld)51 %[facility] HospitalWBC corrected for nucl RBC Auto (Bld) [#/Vol]28.1HighTorrance State HospitalCOMPREHENSIVE METABOLIC PANELon 77-72-2851QXX [Catalytic activity/Vol]79 U/LHigh0-31PLima City HospitalComment on above:Performed By: #### ELROY EUBANKS, 59223-7, 37589-3, 2777-1 ####[facility] ([id number])[address] [facility], [address] [address]BUV/1.73 sq M.predicted among non-blacks MDRD (S/P/Bld) [Vol rate/Area]37 mL/min/{1.73_m2}Low>59[facility] Comment on above:Result Comment: Reported eGFR is based on the CKD-EPI 2020 equation that does not use a race coefficient.Performed By: #### ELROY EUBANKS, 47532-2, 74116-9, 2777- 1 ####[facility] ([id number])[address] [facility], [address] [address]Brolxol [Mass/Vol]2.9 g/dLLow3.2-5.3PSouthern Ohio Medical CenterComment on above:Performed By: #### ELROY EUBANKS, 40974-5, 43685-6, 2777-1 ####[facility] ([id number])[address], [address], [place] [address]TCW [Catalytic activity/Vol]202 U/UVeng40-180MysYhbcds Health SystemComment on above:Performed By: #### ELROY EUBANKS, 87731-0, 74510-9, 2777-1 ####[facility] ([id number])[address], [address], [place] [address]Rzkof gap [Moles/Vol]15 mmol/LNormal5-15[facility] SystemComment on above:Performed By: #### ELROY EUBANKS, 85661-1, 78890-6, 2777-1 ####[facility] ([id number])[address], [address], [place] [address]BWR [Catalytic activity/Vol]90 U/LHigh0-41ProCleveland Clinic Mentor Hospital SystemComment on above:Performed By: #### ELROY EUBANKS, 92526-0, 50983-3, 2777 ####[facility] ([id number])[address], [address], [place] [address]Spmssjybn [Mass/Vol]1.1 mg/dLNormal0.3-1.2PMartins Ferry Hospital SystemComment on above:Performed By: #### ELROY EUBANKS, 37820-2, 00485-1, 2777- ####[facility] ([id number])[address], [address], [place] [address]Cxjdktp [Mass/Vol]7.8 mg/dL Low8.5-10.5PSaint Francis Medical Center Health SystemComment on above:Performed By: #### ELROY EUBANKS, 36998-9, 80461-4, 2777-1 ####[facility] ([id number])[address], [address], [place] [address]Itenxuyl [Moles/Vol]104 mmol/FPnpeal30-242 ProMtaylor hardin [facility] facility Health SystemComment on above:Performed By: #### ELROY EUBANKS, 11625-8, 98258-1, 2776- ####[facility] ([id number])[address], [address] [address]FF5 [Moles/Vol]20 mmol/SRvf69-85DofBnzfic Health System Comment on above:Performed By: #### ELROY EUBANKS, 50381-6, 82988-3, 277- ####[facility] ([id number])[address], [address], [place] [address]Efwqvxuttp [Mass/Vol]1.53 mg/dLHigh0.40-1.00[facility] SystemComment on above:METHOD TRACEABLE TO IDMS STANDARDResult Comment: METHOD TRACEABLE TO IDMS STANDARDPerformed By: #### ELROY EUBANKS, 40895-0, 47833-2, 27701-21 ####[facility] ([id number])[address], [address], [place] [address] Glucose [Mass/Vol]116 mg/nUGsfv67-05VrxDbdicp Health SystemComment on above: Performed By: #### ELROY EUBANKS, 24505-1, 62802-8, 2771 ####[facility] ([id number])[address] [address] [facility], [place] [address]Ikaeapeeu [Moles/Vol]4.2 mmol/LNormal3.5-5.0[facility] SystemComment on above: Performed By: #### ELROY EUBANKS, 84471-6, 80523-8, 277- ####[facility] ([id number])[address], [address], [place] [address]Fqnjczw [Mass/Vol]5.7 g/dLLow6.0-8.0ProCleveland Clinic Mentor Hospital SystemComment on above:Performed By: #### ELROY EUBANKS, 34220-6, 30591-0, 2777-1 ####[facility] ([id number])[address] [address]Ysthac [Moles/Vol]139 mmol/WExivtb138-559AfoVodfvj Health SystemComment on above:Performed By: #### CBCAndrew, CMP, 13594-4, 70485-1, 2777-1 ####[facility] ([id number])[address] [address]Nkmx nitrogen [Mass/Vol]28 mg/dLHigh5-27Ohio State Harding HospitalComment on above:Performed By: #### CBCAndrew, CMP, 86656-4, 76656-1, 2777-1 ####[facility] ([id number])[address] [place] [address]Omazyni.ionized (Bld) [Mass/Vol]on 11-97-0863CKOLXPT CALCIUM4.4 mg/dLLow4.5-5.3PLima City HospitalComment on above:Performed By: #### 11902-0, 09809-4 ####[facility] ([id number])[address] [address]QiqLhlpsoOhio State Harding Hospital IONIZED CALCIUM4.5 mg/dLNormal4.5-5.3PLima City HospitalComment on above: Performed By: #### PINR, 25280-1, CMP, 71586-2, 2777-1, CBCA, 13462-5 #### [facility] ([id number]) [address] [address]Tjrpwykvrfgxyp and review of laboratory resultsAbnoConemaugh Memorial Medical CenterComprehensive metabolic panelon 05-22-2024 ALT No additional P-5'-P [Catalytic activity/Vol]79 U/LHigh0 - 31 U/LPrFostoria City HospitaleGFR (CKD-EPI)non-race njcptvwyj33Zxx- [facility] Comment on above: Reported eGFR is based on the CKD-EPI 2021 equation that does not use a race coefficient. Ionized calciumon 26-95-1847Pzbrllb.ionized (Bld) [Mass/Vol]4.5 mg/dL4.5 - 5.3 mg/dLSt. Mary's Medical Center SystemCalcium.ionized (Bld) [Mass/Vol]4.4 mg/dLLow4.5 - 5.3 mg/dLSt. Mary's Medical Center SystemIonized magnesiumon 01-15-0467Knteptxvj Ionized ISE (Bld) [Moles/Vol]0.54 mmol/L0.45 - 0.74 mmol/LPrCleveland Clinic Euclid Hospital SystemComment on above:NEW REFERENCE RANGELaboratory - Chemistry and Chemistry - challengeon 20-18-3640Ptqjwacgf [Mass/Vol]1.8 mg/dLNormal1.8-2.6[facility] Comment on above:Performed By: #### CHA, ELROY, 70449-9, 64051-7, 2777-1 ####[facility] ([id number])[address], [address], [place] [address]Jjplpcvzg [Mass/Vol]4.7 mg/dLNormal2.4-4.9Ohio [facility] Harding HospitalComment on above:Performed By: #### BERNARD, 94489-4, CMP, 56782-5, 2776-1, CBCA, 14367-8 #### [facility] ([id number]) [address], [address] [place], [place] [address]Pmzmdfs (P jannette) [Moles/Vol]on 91-94-1199VwbWygfbc Health System LACTATE W/REFLEX1.3 mmol/LNormal0.4-2.0ProMercy Memorial HospitalComment on above:Result Comment: Result did not trigger repeat Lactate, re-order if needed.Performed By: #### BERNARD, 81449-5, CMP, 93973-1, 7-1, CBCA, 70597-5 #### [facility] ([id number]) [address], [address] [place], [place] [address]VcrWaizejOhio State Harding HospitalLACTATE W/REFLEX1.6 mmol/LNormal0.4-2.0 ProMLima Memorial HospitalComment on above:Result Comment: Result did not trigger repeat Lactate, re-order if needed.Performed By: #### PINR, 68381-7, CMP, 68754-7, 2777-1, CBCA, 24175-0 #### [facility] ([id number]) [address] [place], [place] [address]Ajrvlct w/ Reflexon 75-39-3212Cimgksm (P jannette) [Moles/Vol]1.3 mmol/L0.4 - 2.0 mmol/LProMedica Health SystemComment on above: Result did not trigger repeat Lactate, re-order if needed. Lactate (P jannette) [Moles/Vol]1.6 mmol/L0.4 - 2.0 mmol/LProMedica Health System Comment on above: Result did not trigger repeat Lactate, re-order if needed. Magnesium Ionized ISE (Bld) [Moles/Vol]on 40-71-5923Owspgllbb [Moles/Vol]0.54 mmol/LNormal0.45-0.74Adena Health SystemComment on above:Result Comment: NEW REFERENCE RANGEPerformed By: #### 80704-4, 77817-7 ####[facility] ([id number])[address], [address] [place] [address]WtcAswnwjOhio State Harding HospitalNo Panel Informationon 64-89-9001Oispyuebjippsh and review of laboratory resultsAbnormalProBrown Memorial HospitalProCleveland Clinic Mentor Hospital SystemProcalcitoninon 54-10-7143Xxgqyuuyjxxbe [place] [Mass/Vol]424.58 ng/mLHighNINF - 0.05 ng/mLOhio State Harding HospitalComment on above:NOTE <0.50 ng/mL - Low risk of severe sepsis and/or septic shock. <2.00 ng/mL - Recommend retesting within 6-24 hours. >2.00 ng/mL - High risk of sepsis and/or septic shock. Procalcitonin IA [Mass/Vol]on 08-04-0641EEMMYEODZOIPG232.58 ng/mLHigh<0.05 [facility] SystemComment on above:Result Comment: NOTE <0.50 ng/mL - Low risk of severe sepsis and/or septic shock. <2.00 ng/mL - Recommend retesting within 6-24 hours. >2.00 ng/mL - High risk of sepsis and/or septic shock.Performed By: #### PINR, 38161-7, CMP, 77615-1, 2777-1, CBCA, 87336-5 #### [facility] ([id number]) [address], [address] [place], [place] [address]SHPFtv 11-54-8310uWVV Coag (PPP) [Time]29 [facility] HospitalArterial Line Insertionon 79-37-6847QsctSTEPHEN Cobian 05/21/2024 2:23 PM Arterial Line Insertion [...] to verify the correct patient, procedure, equipment, practice support specialist and site/side marked as required. Fire Risk [...] none Interventions: none ProMedica Health SystemBLOOD CULTUREon 68-27-9237Xivoptzf identified Aer cx Nom (Bld)CULTURE RESULTS ESCHERICHIA COLI FOR SUSCEPTIBILITY, SEE PREVIOUS REPORT.NormalAdena Health SystemComment on above:Performed By: #### PINR, 88047-3, CMP, 02347-3, 2777-1, CBCA, 90169-3 #### [facility] ([id number]) [address] [place], [place] [address]Xlhevmaz identified Aer cx Nom (Bld)CULTURE RESULTS ESCHERICHIA [...] PIPERACIL/TAZOBACTAM S <=4 F TOBRAMYCIN S <=1 FSusceptibleProMercy Memorial HospitalComment on above:Performed By: #### 44087-3 ####[facility] ([id number])[address], [address], [place] [address]Dxrmfrzzd/100 WBC Manual cnt (Bld)on 05-21-2024 Basophils/100 WBC (Bld)Basophils/100 leukocytes in Blood by Manual countLow 0.2-2.0[facility] HospitalCBC AND AUTO DIFFon 30-90-1276Rmso form neutrophils/100 WBC (Bld)37.0 %NormalProMedica Ashraf HospitalComment on above: Performed By: #### PINR, 72358-0, CMP, 47518-6, 2777-1, CBCA, 47281-8 #### [facility] ([id number]) [address], [address] [place] [address]Bumowpsiqyc distribution width (RBC) [Ratio]15.3 %High11.5-15.0 Pro[facility] Jacksboro HospitalComment on above:Performed By: #### PINR, 94968-2, CMP, 43156-0, 2777-1, CBCA, 00058-7 #### [facility] ([id number]) [address], [address] [place], [place] [address]Nguhanuhzp (Bld) [Volume fraction]34.6 %Uby32-90EvxJitbuk Jacksboro HospitalComment on above:Performed By: #### PINR, 39261-7, CMP, 51717-3, 7-1, CBCA, 49487-4 #### [facility] ([id number]) [address], [address] [place], [place] [address]Qyuaxdazsw (Bld) [Mass/Vol]11.6 g/dLLow11.7-15.5ProMedMercy Health Willard Hospital HospitalComment on above:Performed By: #### PINR, 75604-9, CMP, 60634-6, 2777- 1, CBCA, 66046-2 #### [facility] ([id number]) [address], [address] [place], [place] [address]Vzsldzlwulw (Bld) [#/Vol]0.2 10*3/uLLow1.0-3.5ProMedMercy Health Willard Hospital HospitalComment on above:Performed By: #### PINR, 27702-1, CMP, 85232-4, 2777-1, CBCA, 12580-2 #### [facility] ([id number]) [address], [address] [place], [place] [address]Xpsncvmtzay/100 WBC (Bld)1.0 %[facility] Comment on above:Performed By: #### PINR, 23777-3, CMP, 06011-3, 2777-1, CBCA, 37643-2 #### [facility] ([id number]) [address], [address] [place], [place] [address]RVK (RBC) [Entitic mass]29.7 toXjqrwt50-99DxrMtgvie [place] HospitalComment on above:Performed By: #### PINR, 61964-1, CMP, 38993-0, 2777-1, CBCA, 99892-7 #### [facility] ([id number]) [address], [address] [place], [place] [address]AZOX (RBC) [Mass/Vol]33.5 g/gQYqckam55-34GitVfiqfj [place] HospitalComment on above:Performed By: #### PINR, 30764-4, CMP, 68662-0, 2777-1, CBCA, 31656-1 #### [facility] ([id number]) [address], [address] [place], [place] [address]SDJ (RBC) [Entitic vol]89 kGKlkqne28-615IasBzglfo [place] HospitalComment on above:Performed By: #### PINR, 72653-0, CMP, 24260-8, 2777-1, CBCA, 76535-9 #### [facility] ([id number]) [address], [address] [place], [place] [address]Bkgkttyupcxccc/100 WBC (Bld)6.0 %[facility] Comment on above:Performed By: #### PINR, 22367-3, CMP, 02887-9, 2777-1, CBCA, 35449-6 #### [facility] ([id number]) [address], [address] [place], [place] [address]Idoeiqxer (Bld) [#/Vol]0.5 10*3/uLNormal0-0.9ProHocking Valley Community Hospital HospitalComment on above:Performed By: #### PINR, 44904-5, CMP, 75578-8, 2777-1, CBCA, 69924-2 #### [facility] ([id number]) [address], [address] [place], [place] [address]Yinpmobmf/100 WBC (Bld)3.0 %NormalProHocking Valley Community Hospital Hospital Comment on above:Performed By: #### PINR, 27347-7, CMP, 09284-2, 2777-1, CBCA, 06010-3 #### [facility] ([id number]) [address], [address] [place], [place] [address]Gieybspuxuo (Bld) [#/Vol]14.2 10*3/uLHigh1.5-6.6ProHocking Valley Community Hospital HospitalComment on above:Performed By: #### PINR, 63149-6, CMP, 86520-7, 2777- 1, CBCA, 80424-6 #### [facility] ([id number]) [address], [address] [place], [place] [address]Urupjcnp mean volume (Bld) [Entitic vol]7.8 fLNormal7-12 ProMdale medical centera [facility] Methodist HospitalComment on above:Performed By: #### PINR, 28053-1, CMP, 63156-6, 2777-1, CBCA, 44881-3 #### [facility] ([id number]) [address], [address] [place], [place] [address]Oahgbwysw (Bld) [#/Vol]63 10*3/eFEkg232-546DziFgwhid [place] HospitalComment on above:Performed By: #### PINR, 62451-8, CMP, 23703-0, 2777-1, CBCA, 71084-9 #### [facility] ([id number]) [address], [address] [place], [place] [address]NIQ COUNT3.90 X10E12/LNormal3.80-5.20ProHocking Valley Community Hospital Hospital Comment on above:Performed By: #### PINR, 93810-8, CMP, 06844-8, 2777-1, CBCA, 44085-2 #### [facility] ([id number]) [address], [address] [place], [place] [address]CTW morphology finding Nom (Bld)NORMALNormalProHocking Valley Community Hospital HospitalComment on above:Performed By: #### PINR, 73288-1, CMP, 78269-1, 2777-1, CBCA, 32657-4 #### [facility] ([id number]) [address], [address] [place], [place] [address]ZUI LRBFATISHX57.0 %NormalProHocking Valley Community Hospital HospitalComment on above:Performed By: #### PINR, 00605-9, CMP, 27802-7, 7-1, CBCA, 22566-4 #### [facility] ([id number]) [address], [address] [place] [address]TME (Bld) [#/Vol]15.8 10*3/uLHigh4.0-11.0ProMercy Memorial HospitalComment on above:Performed By: #### PINR, 93427-5, CMP, 13941-5, 7-1, CBCA, 14792-4 #### [facility] ([id number]) [address], [address] [place], [place] [address]KRB auto differentialon 89-25-5422Pzfk form neutrophils/100 WBC (Bld)37 %ProMedica Health SystemErythrocyte distribution width (RBC) [Ratio]15.3 %High11.5 - 15.0 %ProMedica Health SystemHematocrit (Bld) [Volume fraction]34.6 %Low35 - 47 %ProMedica Health SystemHemoglobin (Bld) [Mass/Vol]11.6 g/dLLow11.7 - 15.5 g/dLOhio State Harding HospitalInterpretation and review of laboratory resultsAbnormalOhio State Harding HospitalLymphocytes (Bld) [#/Vol]0.2 10*3/uLLow [facility] HospitalLymphocytes/100 WBC (Bld)1 %[facility] HospitalH (RBC) [Entitic mass]29.7 pg27 - 34 pgPSouthern Ohio Medical CenterMCHC (RBC) [Mass/Vol]33.5 g/dL32 - 36 g/dLOhio State Harding HospitalMCV (RBC) [Entitic vol]89 fL80 - 100 [facility] CenterMetamyelocytes/100 WBC (Bld)6 %[facility] HospitalMonocytes (Bld) [#/Vol]0.5 10*3/uLOhio State Harding Hospital Monocytes/100 WBC (Bld)3 %[facility] HospitalNeutrophils (Bld) [#/Vol]14.2 10*3/uLBon Secours Richmond Community HospitalPlatelet mean volume (Bld) [Entitic vol]7.8 fL 7 - 12 [facility] CenterPlatelets (Bld) [#/Vol]63 10*3/uLLowOhio State Harding HospitalPolymorphonuclear cells/100 WBC (Bld)NORMALOhio State Harding Hospital RBC (Bld) [#/Vol]3.9 10*6/uLCone Health MedCenter High Pointegmented neutrophils/100 WBC (Bld)53 %[facility] HospitalWBC corrected for nucl RBC Auto (Bld) [#/Vol] 15.8HighTorrance State HospitalCOMPREHENSIVE METABOLIC PANELon 71-51-3944Possnzn [Mass/Vol]2.8 g/dLLow3.2-5.3PLima City Hospital Comment on above:Performed By: #### PINR, 99212-4, CMP, 18702-0, 2777-1, CBCA, 11245-7 #### [facility] ([id number]) [address] [place], [place] [address]JEZ [Catalytic activity/Vol]242 U/LOhih53-072TtuVrnfdv Ashraf HospitalComment on above:Performed By: #### PINR, 62956-7, CMP, 35909-4, 2777-1, CBCA, 10757-1 #### [facility] ([id number]) [address], [address] [place], [place] [address]CPM [Catalytic activity/Vol]95 U/LHigh0-31ProMedMercy Health Willard Hospital HospitalComment on above:Performed By: #### PINR, 62171-1, CMP, 68412-4, 2777-1, CBCA, 72067-2 #### [facility] ([id number]) [address], [address] [place], [place] [address]Bjhcu gap [Moles/Vol]14 mmol/LNormal5-15ProHocking Valley Community Hospital HospitalComment on above:Performed By: #### PINR, 13072-4, CMP, 00015-6, 2777-1, CBCA, 87579-5 #### [facility] ([id number]) [address], [address] [place], [place] [address]OIW [Catalytic activity/Vol]189 U/LHigh0-41ProHocking Valley Community Hospital HospitalComment on above:Performed By: #### PINR, 34505-6, CMP, 92831-2, 2777-1, CBCA, 43183-3 #### [facility] ([id number]) [address], [address] [place], [place] [address]Fclvfaton [Mass/Vol]1.0 mg/dLNormal0.3-1.2PWayne HealthCare Main Campus HospitalComment on above:Performed By: #### PINR, 82948-0, CMP, 89908-8, 2777-1, CBCA, 06229-7 #### [facility] ([id number]) [address], [address] [place], [place] [address]Hroovbg [Mass/Vol]8.1 mg/dLLow8.5-10.5Pro[facility] Comment on above:Performed By: #### PINR, 54315-1, CMP, 59386-6, 2777-1, CBCA, 37516-7 #### [facility] ([id number]) [address], [address] [place], [place] [address]Nibyddfh [Moles/Vol]101 mmol/STighyr15-026TtdHzxfna [place] HospitalComment on above:Performed By: #### PINR, 85482-9, CMP, 84553-2, 2777-1, CBCA, 68572-2 #### [facility] ([id number]) [address], [address] [place], [place] [address]BF9 [Moles/Vol]22 mmol/GVtvbyn84-55ZajTaiywaLima City Hospital Comment on above:Performed By: #### BERNARD, 47333-4, CMP, 35166-7, 2777-1, CBCA, 59821-6 #### [facility] ([id number]) [address], [address] [place], [place] [address]Cwerubszad [Mass/Vol]1.50 mg/dLHigh0.40-1.00ProMercy Memorial HospitalComment on above:Result Comment: METHOD TRACEABLE TO IDMS STANDARD Performed By: #### BERNARD, 12912-5, CMP, 35180-5, 2777-1, CBCA, 74342-6 #### [facility] ([id number]) [address], [address] [place], [place] [address]UIT/1.73 sq M.predicted among non-blacks MDRD (S/P/Bld) [Vol rate/Area]38 mL/min/{1.73_m2}Low>59ProMercy Memorial HospitalComment on above: Result Comment: Reported eGFR is based on the CKD-EPI 2020 equation that does not use a race coefficient.Performed By: #### PINR, 71018-8, CMP, 85437-9, 2777- 1, CBCA, 74839-1 #### [facility] ([id number]) [address], [address] [place], [place] [address]Xzygzwj [Mass/Vol]110 mg/aIKkmf83-64OmxHktncxMercy Memorial Hospital Comment on above:Performed By: #### PINR, 59267-6, CMP, 00986-6, 2777-1, CBCA, 76161-0 #### [facility] ([id number]) [address], [address] [place], [place] [address]Ownoutimb [Moles/Vol]3.1 mmol/LLow3.5-5.0ProMercy Memorial HospitalComment on above:Performed By: #### PINR, 40480-9, CMP, 82110-9, 2777-1, CBCA, 47268-7 #### [facility] ([id number]) [address], [address] [place], [place] [address]Ruyfipv [Mass/Vol]5.8 g/dLLow6.0-8.0[facility] Comment on above:Performed By: #### PINR, 86213-2, CMP, 21580-2, 2777-1, CBCA, 98722-3 #### [facility] ([id number]) [address], [address] [place], [place] [address]Xnuqku [Moles/Vol]137 mmol/TOkxari379-616GqqChltyn [place] HospitalComment on above:Performed By: #### PINR, 91354-8, CMP, 04325-1, 2777-1, CBCA, 03925-6 #### [facility] ([id number]) [address], [address] [place], [place] [address]Lojd nitrogen [Mass/Vol]21 mg/dLNormal5-27ProMercy Memorial HospitalComment on above:Performed By: #### PINR, 69641-5, CMP, 71972-0, 2777-1, CBCA, 08454-8 #### [facility] ([id number]) [address], [address] [place], [place] [address]Pzodauw Line Insertionon 57-78-9089PxwlSTEPHEN Cobian 05/21/2024 2:27 PM Central Line Insertion Date/Time: 05/21/2024 2:25 PM Performed by: STEPHEN Coiban Authorized by: STEHPEN Cobian Consent: Verbal consent obtained. Written consent [...] to verify the correct patient, procedure, equipment, practice support specialist and site/side marked as required. Fire Risk [...] during the procedure Complications: none Interventions: none [facility] Tradier SystemProMedica Health SystemComprehensive metabolic panelon 86-99-3773Fmrkcrn [Mass/Vol]2.8 g/dLLow3.2 - 5.3 g/dLProCooper Green Mercy Hospital Health SystemALP [Catalytic activity/Vol]242 U/LHigh39 - 130 U/[facility] Health SystemALT No additional P-5'-P [Catalytic activity/Vol]95 U/LHigh0 - 31 U/[facility] Health SystemAnion gap [Moles/Vol]14 mmol/L5 - 15 mmol/LPrMedical Center of the Rockies Health SystemAST [Catalytic activity/Vol]189 U/LHigh0 - 41 U/[facility] SystemBilirubin [Mass/Vol]1 mg/dL0.3 - 1.2 mg/dLSt. Mary's Medical Center SystemCalcium [Mass/Vol]8.1 mg/dLLow8.5 - 10.5 mg/dLProCleveland Clinic Mentor Hospital SystemChloride [Moles/Vol]101 mmol/L98 - 109 mmol/[facility] SystemCO2 [Moles/Vol]22 mmol/L22 - 32 mmol/L [facility] HospitalCreatinine [Mass/Vol]1.5 mg/dLHigh0.40 - 1.00 mg/dL [facility] HospitalComment on above:METHOD TRACEABLE TO [facility] STANDARDeGFR (CKD-EPI)non-race [id number] PINUniversity HospitalComment on above: Reported eGFR is based on the CKD-EPI 2020 equation that does not use a race coefficient. Glucose [Mass/Vol]110 mg/zJCtum87 - 99 mg/dLSt. Mary's Medical Center SystemPotassium [Moles/Vol]3.1 mmol/LLow3.5 - 5.0 mmol/[facility] SystemProtein [Mass/Vol]5.8 g/dLLow6.0 - 8.0 g/dLSt. Mary's Medical Center SystemSodium [Moles/Vol]137 mmol/L134 - 146 mmol/[facility] SystemUrea nitrogen [Mass/Vol]21 mg/dL5 - 27 mg/dLSt. Mary's Medical Center SystemElectrocardiogram, 12-leadon 05-21-2024 TRACEMASTERVUESt. Mary's Medical Center SystemEosinophils/100 WBC Manual cnt (Bld)on 30-34-8903Kydhzncieuk/100 WBC (Bld)Eosinophils/100 leukocytes in Blood by Manual count0.9-7.0[facility] HospitalErythrocyte distribution width Auto (RBC) [Ratio]on 87-49-1339Rsbwuuvsath distribution width (RBC) [Ratio] Erythrocyte distribution width [Ratio] by Automated count11.0-15.0[facility] HospitalEstimated glomerular filtration rate (GFR) non- Americanon 51-84-1500EYR/1.73 sq M.predicted among non-blacks MDRD (S/P/Bld) [Vol rate/Area]Estimated glomerular filtration rate (GFR) non- Low>=60 mL/min/1.73m 2FKettering Health HamiltonFine granular cast count in urine sediment by microscopy (number/low power field )on 77-25-7585Zaop Granular Casts LM.LPF (Urine sed) [#/Area]Fine granular cast count in urine sediment by microscopy (number/low power field )[facility] HospitalGlobulin Calc (S) [Mass/Vol]on 78-59-2834Wwsacwtl (S) [Mass/Vol]Serum globulin measurement by calculation (mass/volume)[facility] HospitalGlucose Glucometer (BldC) [Mass/Vol]on 37-30-0661Wlwacox [Mass/Vol]114 mg/wSIhco00 - 99 mg/dLProCleveland Clinic Mentor Hospital SystemInterpretation and review of laboratory resultsAbnormalProBrown Memorial HospitalProCleveland Clinic Ment[facility] Hospital SystemGlucose [Mass/Vol]114 mg/mPEnzw00-85ResLnbdki Toledo HospitalGuidance for percutaneous placement of nephrostomy tube of Kidneyon 56-01-9283TNKW: Image guided percutaneous nephrostomy tube placement, left [...] was then dilated to accommodate a 10 Stateless nephrostomy tube. The catheter was secured with a single 0 Prolene suture. Dressing applied. Patient tolerated all procedures well and there were no complications. FINDINGS: Severe left hydronephrosis, fluoroscopic images demonstrated appropriate positioning of nephrostomytube within the collecting system IMPRESSION: Successful image guided placement of left 10 Stateless percutaneous nephrostomy tube PLAN: Maintained to gravity [...] was then dilated to accommodate a 10 Stateless nephrostomy tube. The catheter was secured with a single 0 Prolene suture. Dressing applied. Patient tolerated all procedures well and there were no complications. FINDINGS: Severe left hydronephrosis, fluoroscopic images demonstrated appropriate positioning of nephrostomytube within the collecting system IMPRESSION: Successful image guided placement of left 10 Stateless percutaneous nephrostomy tube PLAN: Maintained to gravity drainage Follow-up urine culture Routine catheter exchange should be performed in 6-8 weeks pending definitive urologic management Finalized by Den Thompson MD on 05/21/2024 5:07 PM [facility] HospitalRadiology Study observation (narrative)[facility] HospitalGuidance for percutaneous placement of nephrostomy tube of KidneyOrdered By: Den Thompson on 33-80-8880FywHohizvSouthern [facility] Medical Center Work Phone: Hematocrit Auto (Bld) [Volume fraction]on 05-21-2024 Hematocrit (Bld) [Volume fraction]Hematocrit [Volume Fraction] of Blood by Automated count36.0-48.0[facility] HospitalHemoglobin [Mass/volume] in Bloodon 70-37-6658Qfbqrawepl (Bld) [Mass/Vol]Hemoglobin [Mass/volume] in Blood12.0-16.0[facility] HospitalIR PERC NEPH TUBE LT + NGRAM + S AND Ion 48-04-4066MN PERC NEPH TUBE LT + NGRAM + [...] was then dilated to accommodate a 10 Stateless nephrostomy tube. The catheter was secured with a single 0 Prolene suture. Dressing applied. Patient tolerated all procedures well and there were no complications. FINDINGS: Severe left hydronephrosis, fluoroscopic images demonstrated appropriate positioning of nephrostomytube within the collecting system IMPRESSION: Successful image guided placement of left 10 Stateless percutaneous nephrostomy tube PLAN: Maintained to gravity drainage Follow-up urine culture Routine catheter exchange should be performed in 6-8 weeks pending definitive urologic management Finalized by Den Thompson MD on 05/21/2024 5:07 PMNormalProMedica Ohiohealth [facility]erington Methodist HospitalLaboratory - Chemistry and Chemistry - challengeon 05-07-1802Qwcjzih [Moles/Vol]4.9 mmol/LCritically high0.4-2.0[facility] Comment on above:RESULTS CALLED TO DR. RIVERABilirubin Ql (U)SMALLAbnormal NEGATIVEPike Community HospitalGlucose (U) [Mass/Vol]NegativeNEGATIVE [facility] HospitalKetones Ql (U)TRACE mg/dLAbnormalNEGATIVE [facility] HospitalpH (U)5.5 [pH]5.0-9.0Martin Memorial Hospitalpecific gravity (U) [Rel density]1.0251.005-1.025P[facility] HospitalUrobilinogen Qn (U)1.0 {Joon'U}/dL0.2-1.0[facility] HospitalAlbumin [Mass/Vol]2.4 g/dLLow3.4-5.0[facility] HospitalALP [Catalytic activity/Vol]390 U/MUyly61-506LknkejhizPike Community HospitalALT [Catalytic activity/Vol]93 U/BOgra74-62BqxfyrobvPike Community HospitalAST [Catalytic activity/Vol]190 U/IRpvr17-06MwtfzjtcqPike Community HospitalBilirubin [Mass/Vol]1.6 mg/dLHigh0.2-1.0[facility] Calcium [Mass/Vol]9.5 mg/dL8.5-10.1FKettering Health HamiltonChloride [Moles/Vol]98 mmol/K77-194DpwyndokiPike Community HospitalCO2 [Moles/Vol]24.3 mmol/L21.0-32.0[facility] HospitalCreatinine [Mass/Vol]1.50 mg/dL High0.55-1.02[facility] HospitalGFR/1.73 sq M.predicted MDRD (S/P/Bld) [Vol rate/Area]42 mL/min/{1.73_m2}Low>=60 mL/min/1.73m 2FKettering Health HamiltonGlucose [Mass/Vol]116 mg/qRJphl04-537DjmqqtnhwPike Community HospitalPotassium [Moles/Vol]2.6 mmol/LCritically low3.5-5.1FKettering Health HamiltonComment on above:RESULTS CALLED TO SHARRI DEGROOT RN @BY Barb Connors at 0450Protein [Mass/Vol]7.0 g/dL6.4-8.2FBarnesville Hospitalodium [Moles/Vol]138 mmol/M255-868NoewwqlnfPike Community HospitalUrea nitrogen [Mass/Vol]19.0 mg/dLHigh7.0-18.0[facility] HospitalUrea nitrogen/Creatinine [Mass ratio]12.7 mg/mgPike Community HospitalLaboratory - Hematology and Cell countson 90-61-3472Bhdm form neutrophils/100 WBC (Bld)1.0 %0-5FKettering Health Hamilton Lymphocytes/100 WBC (Bld)12.0 %Low20.5-60.0[facility] Monocytes/100 WBC (Bld)15.0 %High1.7-12.0[facility] Laboratory - Microbiology and Antimicrobial susceptibilityon 05-21-2024 SARS-CoV-2 (COVID-19) RNA VENICE+probe Ql (Unsp spec)NegativeNEGATIVEPike Community HospitalComment on above:This test has not been [...] Org specific cx Ql (Vag fld)Not detectedNOT DETECTElyria Memorial HospitalLaboratory - Specimen informationon 18-61-4865Gnjjmatkzw (U)CLOUDYAbnormal CLEARPike Community HospitalColor (U)DK. YELLOWYELLOWPike Community HospitalLaboratory - Urinalysison 77-54-2618Pyevttswa sediment LM Ql (Urine sed)[facility] HospitalLeukocyte esterase Test strip Ql (U)TRACEAbnormalNEGATIVEPike Community HospitalMucus Ql (Urine sed) SMALLAbnormalNONE SEENPike Community HospitalNitrite Ql (U)Positive AbnormalNEGATIVEPike Community HospitalProtein Ql (U)>=300 mg/dL AbnormalNEG/TRACEPike Community HospitalLactate (P jannette) [Moles/Vol]on 37-83-7375Jradobgdqittwo and review of laboratory resultsAbnormalProMedica Health SystemProMedica Health SystemLACTATE W/REFLEX2.4 mmol/LHigh0.4-2.0 [facility] SystemComment on above:Performed By: #### 69288-1 ####[facility] ([id number])[address], [address], [place] [address] Interpretation and review of laboratory resultsAbnormalProExcela Frick HospitalLACTATE W/REFLEX2.3 mmol/LHigh0.4-2.0ProMercy Memorial HospitalComment on above:Performed By: #### 73867-6 #### [facility] ([id number]) [address], [address] [place], [place] [address]Ojhkydw w/ Reflexon 60-21-0096Xfasetx (P jannette) [Moles/Vol]2.4 mmol/LHigh0.4 - 2.0 mmol/LProMedica Health SystemLactate (P jannette) [Moles/Vol]2.3 mmol/LHigh0.4 - 2.0 mmol/LProMedAvita Health System Ontario Hospital SystemLeukocytes [#/volume] corrected for nucleated erythrocytes in Blood by Automated counon 92-84-8050YKF corrected for nucl RBC Auto (Bld) [#/Vol]Leukocytes [#/volume] corrected for nucleated erythrocytes in Blood by Automated counLow4.0-11.0[facility] HospitalMAGNESIUMon 91-20-8782Vunjswziu [Mass/Vol]1.1 mg/dLLow1.8-2.6Adena Health SystemCombeaumont hospital on above:Performed By: #### PINR, 22960-1, CMP, 09068-9, 2777-1, CBCA, 27052-5 #### [facility] ([id number]) [address], [address] [place], [place] [address]AEB Auto (RBC) [Entitic mass]on 10-14-7562AZV (RBC) [Entitic mass]MCH [Entitic mass] by Automated count26.7-34.0P[facility] HospitalMCHC Auto (RBC) [Mass/Vol]on 38-24-7485ZCHY (RBC) [Mass/Vol]MCHC [Mass/volume] by Automated count29.9-35.2FKettering Health HamiltonMCV Auto (RBC) [Entitic vol]on 84-90-9450HIG (RBC) [Entitic vol]MCV [Entitic volume] by Automated count81.0-99.0[facility] HospitalMagnesiumon 16-64-9669Vloqkqlmv [Mass/Vol]1.1 mg/dLLow1.8 - 2.6 mg/dLOhio State Harding Hospital Myelocytes/100 WBC Manual cnt (Bld)on 75-20-0689Ajsklehnau/100 WBC (Bld) Myelocytes/100 leukocytes in Blood by Manual countPike Community HospitalNo Panel Informationon 46-55-4083Wgpetcxvnbvtmi and review of laboratory resultsAbnormalOhio State Harding HospitalProBrown Memorial HospitalProBrown Memorial HospitalTroponin I High Wxizirerldt5404.5 pg/mLCritically high4.0-51.3FKettering Health HamiltonComment on above:RESULTS CALLED TO Demetria Starks RNCUT-OFF [...] DIAGNOSTIC AND CLINICAL INFORMATION.Miscellaneous Test CommentSee comment [facility] HospitalComment on above:Specimen Source: UCATH - Urine Catheterized - Urine Cath - 200.300Urine BacteriaMODERATE #/HPFAbnormalNONE [facility] HospitalUrine Culture Result 1\R\ Urine Culture, RoutinePike Community HospitalUrine Microscopic ReviewYETrumbull Regional Medical CenterUrine Occult BloodLARGEAbnormalNEGATIVEPike Community HospitalUrine Other CastsSEEN #/LPFAbnormalNONE [facility] HospitalUrine Other CrystalsSeen #/HPFAbnormalNone [facility] HospitalUrine HYM52-37 #/HPFAbnormal0-2FKettering Health Hamilton Urine Squamous Epithelial CellsMODERATE #/LPFAbnormalNONE/RAREPike Community HospitalUrine TDP45-04 #/HPFAbnormalNONE SEENPike Community HospitalAbsolute Basophils (Manual)0.00 10 3/uL0.00-0.10P[facility] HospitalBand Neutrophils # (Manual)0.0 10 3/uL0.0-0.3FKettering Health HamiltonEosinophils # (Manual)0.01 10 3/uL0.00-0.70P[facility] HospitalLymphocytes # (Manual)0.20 10 3/uLLow1.20-3.80[facility] HospitalMonocytes # (Manual)0.25 10 3/uLLow0.30-0.80[facility] HospitalMyelocytes # (Manual)0.03[facility] HospitalReactive Lymphocytes0.06[facility] HospitalReactive Lymphocytes4.0 % Martin Memorial Hospitalegmented Neutrophils # (Manual)1.10 10 3/uLLow 1.4-6.5FKettering Health HamiltonBedside Influenza Type A AntigenNegative [facility] HospitalComment on above:Negative for Flu A protein antigen. Infection due to Flu Acannot be ruled out. Flu A antigen in thesample may bebelow the detection limit of the test.Bedside Influenza Type B Antigen NegativePike Community HospitalComment on above:Negative for Flu B protein antigen. Infection due to Flu Bcannot be ruled out. Flu B antigen in the sample may bebelow the detection limit of the test.A.calcoaceticus-baumannii cmplx PCRNot detectedNOT [facility] HospitalBacteroides fragilis (PCR)Not detectedNOT [facility] HospitalBlood Culture SourceBloodPike Community HospitalCandida albicans (PCR)Not detectedNOT DETECTElyria Memorial HospitalCandida auris (PCR)Not detectedNOT DETECTElyria Memorial HospitalCandida glabrata (PCR)Not detectedNOT [facility] HospitalCandida krusei (PCR)Not detectedNOT DETECTElyria Memorial HospitalCandida parapsilosis (PCR) Not detectedNOT DETECTElyria Memorial HospitalCandida tropicalis (PCR) Not detectedNOT [facility] HospitalCrypto neoformans/gattii (PCR)(LAB)Not detectedNOT [facility] HospitalCTX-M ESBL (PCR)Not detectedNOT [facility] HospitalEnterobacter cloacae complex (PCR)Not detectedNOT [facility] Enterobacterales (PCR)DetectedNOT [facility] Comment on above:RESULTS CALLED TO FRANKY MACHADO,PAEnterococcus faecalis PCR Not detectedNOT [facility] HospitalEnterococcus faecium PCR Not detectedNOT [facility] HospitalEscherichia coli Result DetectedNOT [facility] HospitalComment on above:RESULTS CALLED TO FRANKY MACHADO,PAHaemophilus influenzae DNANot detectedNOT [facility] LimaIMP (blaIMP) Carbap Res Gene (PCR)Not detected NOT [facility] HospitalKlebsiella aerogenes (PCR)Not detectedNOT [facility] HospitalKlebsiella oxytoca (PCR)Not detectedNOT [facility] HospitalKlebsiella pneumoniae group (PCR)Not detectedNOT [facility] HospitalKPC (blaKPC) Detection (PCR)Not detectedNOT [facility] HospitalListeria monocytogenes (PCR)Not detectedNOT [facility] HospitalMCR-1 Resistance GeneNot detectedNOT [facility] HospitalmecA/C & MREJ Antimicrob Resist GenNOT APPLICABLENOT [facility] HospitalmecA-Methicillin Resistance GeneNOT APPLICABLENOT [facility] HospitalNDM (blaNDM) Detection (PCR)Not detectedNOT [facility] LimaNeisseria meningitidis (PCR)Not detectedNOT [facility] HospitalProteus species (PCR)Not detectedNOT [facility] HospitalPseudomonas aeruginosa (PCR)Not detected NOT DETECTWVUMedicine Harrison Community Hospitalalmonella spp. (PCR)Not detectedNOT Grant Hospitalerratia marcescens (PCR)Not detected NOT DETECTWVUMedicine Harrison Community Hospitaltaphylococcus aureus (PCR)(LAB)Not detectedNOT [facility] Hospitaltaphylococcus epidermidis (PCR)Not detectedNOT [facility] Hospitaltaphylococcus lugdunensis (TEM-PCRNot detectedNOT [facility] Staphylococcus species (PCR)Not detectedNOT [facility] Hospitaltenotroph. maltophilia (PCR)Not detectedNOT [facility] Hospitaltreptococcus pneumoniae (PCR)Not detectedNOT [facility] Hospitaltreptococcus pyogenes (PCR)(LAB)Not detectedNOT DETECTE Martin Memorial Hospitaltreptococcus species (PCR)Not detectedNOT Grant Hospitalyn OXA-48-like Carb Res Gene (PCR)Not detectedNOT [facility] HospitalVanA/B-Vancomycin Resistance GenesNOT APPLICABLENOT [facility] HospitalVIM (blaVIM) Carbap Res Gene (PCR)Not detectedNOT [facility] HospitalNo Panel InformationOrdered By: FABIEN RIVERA on 14-89-5569Lykbxknj Identification OnlyPike Community HospitalNo Panel InformationOrdered By: Senia Marker on 24-25-1161Wfmjlaka Identification [facility] Hospital DaytonPHOSPHORUSon 92-54-1489Cozsbzlmb [Mass/Vol]2.8 mg/dLNormal2.4-4.9 [facility]sboro HospitalComment on above:Performed By: #### PINAbby, 00143-2, CMP, , 2776-, CBCA, 33285-0 #### [facility] ([id number]) [address] [place], [place] [address]WPRAYTERQae 84-77-8537Xxqwgfuzn [Moles/Vol]3.8 mmol/LNormal 3.5-5.0ProMedica Jacksboro HospitalComment on above:Performed By: #### 2823-3 ####[facility] ([id number])[address], [place] [address]DDRCRAQ AND INRon 39-87-6064OEA Coag (PPP) [Relative time]1.2 {INR}High 0.8-1.1ProMedica Jacksboro HospitalComment on above:Performed By: #### PINR, 60769- 9, CMP, 06110-5, 2777-1, CBCA, 35214-6 #### [facility] ([id number]) [address], [address] [place], [place] [address]MK Coag (PPP) [Time]14.1 sHigh9.8-13.2PLima City Hospital Comment on above:Performed By: #### PINR, 95284-5, CMP, 16142-1, 2777-1, CBCA, 89691-9 #### [facility] ([id number]) [address], [address] [place], [place] [address]Ntlqhvflsqnj 55-88-0674Ckszelobp [Mass/Vol]2.8 mg/dL2.4 - 4.9 mg/dLOhio State Harding HospitalPlatelet mean volume Auto (Bld) [Entitic vol]on 95-20-7877Leqfawvr mean volume (Bld) [Entitic vol]Platelet mean volume [Entitic volume] in Blood by Automated countLow9.5-13.5FKettering Health Hamilton Platelets Auto (Bld) [#/Vol]on 68-89-7506Yylqydwiu (Bld) [#/Vol]Platelets [#/volume] in Blood by Automated kinanAit049-089HrtitczbmPike Community HospitalPotassiumon 13-12-7782Urxqhttqm [Moles/Vol]3.8 mmol/L3.5 - 5.0 mmol/L [facility] SystemPotassium [Moles/Vol]on 98-17-1622DleBrsatvSouthern [facility] Medical Center Procalcitoninon 20-08-9638Necsqraluwjkq IA [Mass/Vol]463.36 ng/mLHighNINF - 0.05 ng/mLOhio State Harding HospitalComment on above:NOTE <0.50 ng/mL - Low risk of severe sepsis and/or septic shock. <2.00 ng/mL - Recommend retesting within 6-24 hours. >2.00 ng/mL - High risk of sepsis and/or septic shock. Procalcitonin IA [Mass/Vol]on 31-19-2463Ogmgzdgvouayyi and review of laboratory resultsAbnormalProCleveland Clinic Mentor Hospital SystemProCleveland Clinic [facility] Hospital WuxjsvEONLYZDGQVCQR883.36 ng/mLHigh<0.05Adena Health SystemComment on above:Result Comment: NOTE <0.50 ng/mL - Low risk of severe sepsis and/or septic shock. <2.00 ng/mL - Recommend retesting within 6-24 hours. >2.00 ng/mL - High risk of sepsis and/or septic shock.Performed By: #### PINR, 25245-3, CMP, 74029-1, 2777-1, CBCA, 82680-8 #### [facility] ([id number]) [address], [address] [place], [place] [address]Dzrhlpb & INRon 49-43-7153CVS Coag (PPP) [Relative time]1.2 {INR}HighSt. Mary's Medical Center SystemInterpretation and review of laboratory results AbnormalOhio State Harding HospitalPT Coag (PPP) [Time]14.1 [facility] Lifepoint HealthcareRBC Auto (Bld) [#/Vol]on 87-52-5650EIY (Bld) [#/Vol]Erythrocytes [#/volume] in Blood by Automated count4.20-5.40[facility] Segmented neutrophils/100 WBC Manual cnt (Bld)on 87-06-7909Eabyhsjjn neutrophils/100 WBC (Bld)Manual blood segmented neutrophils/100 leukocytes 43.0-75.0Martin Memorial Hospitalerum or plasma albumin/globulin mass ratioon 62-79-3619Ofssbmq/Globulin [Mass ratio]Serum or plasma albumin/globulin mass ratioMartin Memorial Hospitalerum or plasma anion gap determinationon 35-56-5370Kjcfv gap [Moles/Vol]Serum or plasma anion gap determinationPike Community HospitalURINALYSISon 78-59-1820Yxfsitwor Ql (U)NegativeNormalNEGProUniversity Hospitals Beachwood Medical Centerca [facility] Methodist HospitalComment on above:Performed By: #### UA ####[facility] ([id number])[address], [address], [place] [address]GRTOX/HGBMODERATEAbnormalNEGProUniversity Hospitals Beachwood Medical Centerca [facility] Methodist HospitalComment on above:Performed By: #### UA ####[facility] ([id number])[address], [address] [address]Mlbtp (U)BROWNAbnormalYELLOWProMedica Ashraf HospitalComment on above:Performed By: #### UA ####[facility] ([id number])[address] [address]Kelaoon Ql (U)Negative NormalNEGProMedica Ashraf HospitalComment on above:Performed By: #### UA ####[facility] ([id number])[address], [address] [address]Xggknhp Ql (U)NegativeNormalNEGProMedica Ashraf HospitalComment on above: Performed By: #### UA ####[facility] ([id number])[address], [address],[place] [address]Itohenfpp esterase Test strip Ql (U)Large AbnormalNEGProMedica Ashraf HospitalComment on above:Performed By: #### UA ####[facility] ([id number])[address], [address],[place] [address]Joestwk Ql (U)NegativeNormalNEGProMedica Ashraf HospitalComment on above: Performed By: #### UA ####[facility] ([id number])[address], [address] [address]kC (U)7.0 [pH]Normal5.0-8.5ProMedica Ashraf HospitalComment on above:Performed By: #### UA ####[facility] ([id number])[address], [address] [address]Scwvetd Ql (U)300 mg/dL AbnormalNEGProMedica Ashraf HospitalComment on above:Performed By: #### UA ####[facility] ([id number])[address] [address]M.B.CELLS>807Bdvb5-8IbyZmffer Ashraf HospitalComment on above:Performed By: #### UA ####[facility] ([id number])[address] [address] [place] [address]Czmajgte gravity (U) [Rel density]1.445Ciucgy3.003-1.035 [facility] Jacksboro HospitalComment on above:Performed By: #### UA ####[facility] ([id number])[address] [address] [place] [address] TURBIDITYCLOUDYAbnormalCLEARProMedica Jacksboro HospitalComment on above:Performed By: #### UA ####[facility] ([id number])[address] [address]Gropganhks dipstick W Reflex Microscopic panel (U)URINE RECEIVED WITHOUT PRESERVATIVE-DELAYS IN TRANSPORT MAY AFFECT RESULTS.INTERPRET WITH CAUTION AND CLINICAL CORRELATION IS RECOMMENDED.NormalProMedica Jacksboro HospitalComment on above:Performed By: #### UA ####[facility] ([id number])[address] [address]Ccswnvziparf (U) [Mass/Vol] mg/dLNormal<1.1PWayne HealthCare Main Campus HospitalComment on above:Performed By: #### UA ####[facility] ([id number])[address] [address] [place] [address]M.B.CELLS>283Dxwd6-3QgsUxsmge [place] HospitalComment on above:Performed By: #### UA ####[facility] ([id number])[address] [address] [place] [address]YDL CLUMPSMANYAbnormalNONEPWayne HealthCare Main Campus HospitalComment on above:Performed By: #### UA ####[facility] ([id number])[address] [address]DCJCY CULTUREon 48-07-8355Fclffrnz identified Cx Nom (U)CULTURE RESULTS <10,000 ORGANISMS/ML NORMAL URO GENITAL FLORANoJ.W. Ruby Memorial Hospital Comment on above:Performed By: #### PINR, 98125-3, CMP, 56117-0, 2777-1, CBCA, 29478-0 #### [facility] ([id number]) [address] [place], [place] [address]Xnjfkxfoqdth 85-31-3193Fmdweupoc Ql (U)NegativeNegative^Negative [facility] Rehabilitationedica Health SystemColor (U)BROWNAbnormalYELLOW^YELLOWSt. Mary's Medical Center SystemGlucose (U) [Mass/Vol]NegativeNegative^Negative mg/dLOhio State Harding HospitalHemoglobin Auto test strip Ql (U)MODERATEAbnormalNegative^Negative [facility] Centera Health SystemInterpretation and review of laboratory resultsAbnormal ProMtaylor hardin secure medical facility Health SystemKetones (U) [Mass/Vol]NegativeNegative^Negative mg/dL [facility] SystemLeukocyte clumps LM Ql (Urine sed)MANYAbnormalNONE^NONE [facility] SystemLeukocyte esterase Auto test strip Ql (U)LargeAbnormal Negative^NegativeFirelands Regional Medical Center South Campus Health SystemNitrite Auto test strip Ql (U)Negative Negative^NegativeSt. Mary's Medical Center SystempH (U)7 [pH]5.0 - 8.5PSaint Francis Medical Center Health SystemProtein (U) [Mass/Vol]300 mg/dLAbnormalNegative^NegativeSt. Mary's Medical Center SystemRBC Auto (Urine sed) [#/Area][facility] SystemSpecific gravity Refractometry automated (U) [Rel density]1.0351.003 - 1.035St. [facility] SystemTurbidity Ql (U)CLOUDYAbnormalCLEAR^CLEARSt. Mary's Medical Center SystemUrinalysis microscopic panel Auto (Urine sed) [#/Area]URINE RECEIVED WITHOUT PRESERVATIVE- DELAYS IN TRANSPORT MAY AFFECT RESULTS.INTERPRET WITH CAUTION AND CLINICAL CORRELATION IS RECOMMENDED.ProMdale medical centera Health SystemUrobilinogen Qn (U)NINF [facility] SystemWBC Auto (Urine sed) [#/Area][facility] System ProMLong Prairie Memorial Hospital and Home SystemXR CHEST 1 VWon 29-12-0460RI CHEST 1 VWXR CHEST 1 VW Single view chest XR CHEST 1 VW History: central venous line placement verification Comparison: May 21 at 4:24 AM current examination 2:20 PM Impression: * No consolidation or pleural fluid. No acute findings. * Central line placed at the superior vena cava. Poor inspiration without acute disease. No pneumothorax. Finalized by Jorge Mcdaniels MD on 05/21/2024 2:30 PMNormalAdena Health SystemXR Chest Single viewon 76-64-5190Pnmnws view chest XR CHEST 1 VW History: [...] Jorge Mcdaniels MD on 05/21/2024 2:30 PM [facility] HospitalRadiology Study observation (narrative)[facility] HospitalXR Chest Single viewOrdered By: Jorge Mcdaniels on 57-73-7827DndSpijwpSouthern [facility] Medical Center Work Phone: aPTT Coag (PPP) [Time]on 94-72-0477bZGO Coag (Bld) [Time]29 qJimpzf57-71NioMmxklvAdena Health SystemComment on above:Performed By: #### PINR, 04262-1, CMP, 99618-5, 2777-1, CBCA, 05862-9 #### [facility] ([id number]) [address], [address] [place], [place] [address]Qcsgmmygy virus B Ag [Presence] in Upper respiratory specimen by Rapid immunoassayon 86-19-4530TWWBA Ag IA.rapid Ql (Nph)PositivePike Community HospitalNo Panel Informationon 66-35-9161Ygieqzbdj Type A (Rapid) NegativePike Community HospitalPOC SARS CoV-2 AntigenNegativePike Community HospitalXR KUB 1 VIEWon 63-10-7573EC KUB 1 VIEWEXAMINATION: XR KUB 1 VIEW [...] Electronically authenticated by: TOM NEAL Date: 2022-08-09 08:52NoalThDetwiler Memorial Hospital CBC AUTO DIFFon 23-95-7600QOAA #0.0 103/ulNormal 0.0-0.1[facility] Vincent Medical CenterComment on above:Performed By: #### HFPFCBC #### [facility] [address] [address] [address] Caitlin Pulidosophils/100 WBC (Bld)0.4 %Normal0.2-2.0[facility] Comment on above:Performed By: #### HFPFCBC #### [facility] [address] [address] [address] Caitlin Pritchard #0.2 103/ulNormal0.0-0.7The [facility] HospitalComment on above: Performed By: #### HFPFCBC #### [facility] [address] [address] [address] Caitlin Harmanosinophils/100 WBC (Bld)2.5 %Normal0.9-7.0[facility] Comment on above:Performed By: #### HFPFCBC #### [facility] [address] [address] [address] Caitlin Harmanrythrocyte distribution width (RBC) [Ratio]13.5 %Akifxo02.0-15.0 [facility] HospitalComment on above:Performed By: #### HFPFCBC #### [facility] [address] [place] [address] Dr. Caitlin Esparzaatocrit (Bld) [Volume fraction]41.9 %Nfepkq17.0-48.0[facility] HospitalComment on above:Performed By: #### ARLENEFCBC #### [facility] [address] [place] [address] Dr. Caitlin WinstonHemoglobin (Bld) [Mass/Vol]13.7 g/tTZtzyml89.0-16.0[facility] HospitalComment on above:Performed By: #### ARLENEFCBC #### [facility] [address] [place] [address] Dr. Caitlin Carson #0.01 10e3/ulNormal0.00-0.03The [facility] HospitalComment on above:Performed By: #### MAAMEBC #### [facility] [address] [place] [address] Dr. Caitlin Carson %0.1 %Normal0.0-0.5The [facility] HospitalComment on above: Performed By: #### ARLENEFCBC #### [facility] [address] [place] [address] Dr. Caitlin Torres #3.2 103/ulNormal1.2-3.8The [facility] HospitalComment on above:Performed By: #### ARLENEFCBC #### [facility] [address] [place] [address] Dr. Caitlin Richeyhocytes/100 WBC (Bld)42.0 %Gpxfkv79.5-60.0The [facility] HospitalComment on above:Performed By: #### HFPFCBC #### [facility] [address] [place] [address] Dr. Caitlin Rowell (RBC) [Entitic mass]29.4 jfUoadzx11.7-34.0The [facility] HospitalComment on above:Performed By: #### MAAMEBC #### [facility] [address] [address] [address] Caitlin IngramHC (RBC) [Mass/Vol]32.7 g/lQRenuyh17.9-35.2The [facility] HospitalComment on above:Performed By: #### HFPFCBC #### [facility] [address] [place] [address] Dr. Caitlin IngramV (RBC) [Entitic vol]89.9 hIRlkonw93.0-99.0The [facility] HospitalComment on above:Performed By: #### HFPFCBC #### [facility] [address] [place] [address] Dr. Caitlin Salas #0.5 103/ulNormal0.3-0.8The [facility] HospitalComment on above:Performed By: #### HFPFCBC #### [facility] [address] [place] [address] Dr. Caitlni Kempocytes/100 WBC (Bld)7.1 %Normal1.7-12.0The [facility] Comment on above:Performed By: #### HFPFCBC #### [facility] [address] [place] [address] Dr. Caitlin Abraham #3.6 103/ulNormal1.4-6.5The [facility] HospitalComment on above:Performed By: #### HFPFCBC #### [facility] [address] [place] [address] Dr. Caitlin Kennyutrophils/100 WBC (Bld)47.9 %Zwohwr97.0-75.0The [facility] HospitalComment on above:Performed By: #### HFPFCBC #### [facility] [address] [place] [address] Dr. Caitlin Schultzlet mean volume (Bld) [Entitic vol]9.2 fLCritically low 9.5-13.5The [facility] HospitalComment on above:Performed By: #### HFPFCBC #### [facility] [address] [place] [address] Dr. Caitlin WinstonPLT203 103/mjHoobyp484-189Ejs Sacha HospitalComment on above: Performed By: #### HFPFCBC #### [facility] [address] [place] [address] Dr. Caitlin WinstonRBC4.66 106/ulNormal4.20-5.40[facility] on above:Performed By: #### HFPFCBC #### [facility] [address] [place] [address] Dr. Caitlin WinstonWBC7.6 103/ulNormal4.0-11.0[facility] on above: Performed By: #### HFPFCBC #### [facility] [address] [place] [address] Dr. Caitlin BelleFAIR PROFILEon 24-45-7402Kzhfjgu [Mass/Vol]3.6 g/dLNormal 3.4-5.0[facility] on above:Performed By: #### HFPF #### [facility] [address] [place] [address] Dr. Caitlin WinstonAlbumin/Globulin [Mass ratio]0.9 {ratio}NormalThe [facility] HospitalCombeaumont hospital on above:Performed By: #### HFPF #### [facility] [address] [place] [address] Dr. Caitlin Robles [Catalytic activity/Vol]87 U/OEhkdbh24-795Bnw [facility] on above:Performed By: #### HFPF #### [facility] [address] [place] [address] Dr. Caitlin Dacosta [Catalytic activity/Vol]20 U/IXzuqmq71-38Orf [facility] on above:Performed By: #### HFPF #### [facility] [address] [place] [address] Dr. Caitlin Melchor [Catalytic activity/Vol]15 U/GXmbvns78-07Rbe [facility] on above:Performed By: #### HFPF #### [facility] [address] [place] [address] Dr. Caitlin WinstonBilirubin [Mass/Vol]0.4 mg/dLNormal0.2-1.0[facility] Comment on above:Performed By: #### HFPF #### [facility] [address] [address] [address] Caitlin WinstonCalcium [Mass/Vol]8.7 mg/dLNormal8.5-10.1[facility] Comment on above:Performed By: #### HFPF #### [facility] [address] [address] [address] Caitlin WinstonChloride [Moles/Vol]102 mmol/WOyblkj25-052Ivi [facility] Comment on above:Performed By: #### HFPF #### [facility] [address] [address] [address] Caitlin WinstonCHOL-HDL RATIO NORMSRegency Hospital ToledoComment on above:Result Comment: 3.3 - 4.4 LOW RISK 4.4 - 7.1 AVERAGE RISK 7.1 - 11.0 MODERATE RISK >11.0 HIGH RISKPerformed By: #### HFPF #### [facility] [address] [place] [address] Dr. Caitlin Alexanderesterol [Mass/Vol]180 mg/dLNormal<=200[facility] Comment on above:Performed By: #### HFPF #### [facility] [address] [address] [address] Caitlin WinstonCholesterol in HDL [Mass/Vol]57 mg/sHDlarnm12-21VrnMercy Health St. Vincent Medical CenterComment on above:Performed By: #### HFPF #### [facility] [address] [address] [address] Caitlin WinstonCholesterol in LDL [Mass/Vol]107.8 mg/dLAultman HospitalComment on above:Performed By: #### HFPF #### [facility] [address] [place] [address] Dr. Caitlin Alexanderesterrafy.total/Cholesterol in HDL [Mass ratio]3.2 {ratio} NormalMercy Health St. Vincent Medical CenterComment on above:Performed By: #### HFPF #### [facility] [address] [address] [address] Caitlin WinstonCO2 [Moles/Vol]28.3 mmol/UOwrbno82.0-32.0[facility] Comment on above:Performed By: #### HFPF #### [facility] [address] [address] [address] Caitlin WinstonCreatinine [Mass/Vol]0.63 mg/dLNormal0.55-1.02[facility] Vincent Medical CenterComment on above:Performed By: #### HFPF #### [facility] [address] [place] [address] Dr. Caitlin WinstonGlobulin (S) [Mass/Vol]3.8 g/dLAultman HospitalComment on above:Performed By: #### HFPF #### [facility] [address] [place] [address] Dr. Caitlin WinstonGlucose [Mass/Vol]96 mg/eZMzwgvt44-252BbmMercy Health St. [facility] Comment on above:Performed By: #### HFPF #### [facility] [address] [place] [address] Dr. Caitlin WinstonHDL NORMAL> or = 60 mg/dl - LOW CARDIOVASCULAR RISK <40 mg/dl - HIGH CARDIOVASCULAR RISKAultman HospitalComment on above:Performed By: #### HFPF #### [facility] [address] [place] [address] Dr. Caitlin WinstonLDL CALC NORMALSEE BELOWAultman HospitalComment on above:Result Comment: <100 mg/dl OPTIMAL 100 - 129 mg/dl NEAR OR ABOVE OPTIMAL 130 - 159 mg/dl BORDERLINE HIGH 160 - 189 mg/dl HIGH >190 mg/dl VERY HIGH Performed By: #### HFPF #### [facility] [address] [place] [address] Dr. Caitlin WinstonPotassium [Moles/Vol]3.9 mmol/LNormal3.5-5.1[facility] Comment on above:Performed By: #### HFPF #### [facility] [address] [place] [address] Dr. Caitlin WinstonProtein [Mass/Vol]7.4 g/dLNormal6.4-8.2The [facility] Comment on above:Performed By: #### HFPF #### [facility] [address] [place] [address] Dr. Caitlin WinstonSodium [Moles/Vol]139 mmol/KOcqjmi493-473Adl [facility] Comment on above:Performed By: #### HFPF #### [facility] [address] [place] [address] Dr. Caitlin WinstonTriglyceride [Mass/Vol]76 mg/dLNormal<=150The [facility] Comment on above:Performed By: #### HFPF #### [facility] [address] [place] [address] Dr. Caitlin WinstonTSH2.462 uIU/mLNormal0.358-3.740[facility] Vincent Medical CenterComment on above:Performed By: #### HFPF #### [facility] [address] [place] [address] Dr. Caitlin WinstonUrea nitrogen [Mass/Vol]23.0 mg/dLCritically high7.0-18.0The [facility] HospitalComment on above:Performed By: #### HFPF #### [facility] [address] [place] [address] Dr. Caitlin WinstonUrea nitrogen/Creatinine [Mass ratio]36.5 mg/mgNoCleveland Clinic Lutheran HospitalComment on above:Performed By: #### HFPF #### [facility] [address] [place] [address] Dr. Caitlin WinstonVLDL CALC15.2 mg/dLNoCleveland Clinic Lutheran HospitalComment on above: Performed By: #### HFPF #### [facility] [address] [place] [address] Dr. Caitlin WinstonOperative Reporton [id number] ReportMR#: [id number] [facility] Pt. Name: Sharri Murillo Room #: [...] diameter, was closed by 1-0 PDS interrupted isrbab-bu-afctv sutures. Without significant tension. The inferior fascial defect is 5 cm in diameter. Which was closed by 1-0 PDS interrupted iycoej-aq-ssewh sutures without tension. Subcutaneous wound was irrigated [...] Pagan M.D. Date Trans: 02/25/2021 01:27 P/ OMID_JN:[id number] VA Medical CenterPO GLUCOSE LAB on 00-25-4091Ebzecqd [Mass/Vol]90 mg/nPGkdosw64-196Wfy [facility] HospitalComment on above:Performed By: #### [id number] #### [facility] [address] [place] [address], USACT ABDOMEN AND PELVIS W ORAL CONTRASTon 65-34-3925KL ABDOMEN AND PELVIS W ORAL CONTRASTUnTriHealth [facility] Department of Radiology [address] [place] [id number] Patient Name: SHARRI MURILLO : 1955 Sex: F Age: Race: White Pt. Location: Patient Status: D Ordered Date: 01/05/2021 9:35:00 AM Completed Date: 01/14/2021 08:25 AM Requesting Provider: SIDNEY PAGAN Attending Provider: SIDNEY PAGAN Report Copy To: OLMAN SHOEMAKER Signs & Symptoms: K43.9 Ventral hernia without obstruction or gangrene I10 History: Saritha [phone] patient will need to come early to drink [employer] auth [id number] valid 01/07/2021-02/21/2021 per arlette [id number] *kw Comments: Exam: CT ABDOMEN AND PELVIS [...] cholecystectomy. Electronically signed: Jill Melvin. Transcribed by: [email or web address], User Resident: Electronically Signed by: JILL MELVIN @ 01/15/2021 08:38 AMNormalThe [facility] Vital Signs Date TimeVital SignValuePerforming YugwkeucaKqkyzxov11-36-2424 10:09-0400Body .18 cmOlman Shoemaker MD Work Phone: [phone]10-28-2025 10:09-0400 Body mass index (BMI) [Ratio]49.6 kg/y4CgoukdOlman Shoemaker MD Work Phone: [facility]10-28-2025 10:09-0400 Body mlyqev759.78 kgOlman Shoemaker MD Work Phone: [phone]10-28-2025 10:09-0400 Diastolic blood cilgvfuh07 mm[Hg]Olman Shoemaker MD Work Phone: [phone] [place], [place] [address]10-28-2025 10:09-0400 Heart rate73 /minOlman Shoemaker MD Work Phone: [phone]10-28-2025 10:09-0400 Systolic blood lyqojefu477 mm[Hg]Olman Shoemaker MD Work Phone: [phone]07-16-2025 12:14-0400 Body .2 cmAleksandra Sandoval MD Work Phone: [facility]07-16-2025 12:14-0400Body mass index (BMI) [Ratio]49.18 kg/h6UqkaarnAleksandra Sandoval MD Work Phone: [facility]07-16-2025 12:14-0400Body ymzjfi297.43 kgAleksandra Sandoval MD Work Phone: [facility]adier Mssdnj51-62-3292 12:14-0400Diastolic blood sulfjdxq01 mm[Hg]Aleksandra Sandoval MD Work Phone: [facility] HospitalComment on above:Pt. states they had a difficult drive to this office.02-05-2025 12:14-0400Heart rate73 /min Aleksandra Sandoval MD Work Phone: [facility] Smdohn86-25-1974 12:14-0400Systolic blood qymgavna568 mm[Hg]Aleksandra Sandoval MD Work Phone: [facility] HospitalComment on above:Pt. states they had a difficult drive to this office.12-31-2024 13:52-0400Body fpovtv446.2 cmAleksandra Sandoval MD Work Phone: [facility]06-10-2025 13:52-0400Body mass index (BMI) [Ratio]49.18 kg/e1QgkyptsAleksandra Sandoval MD Work Phone: [facility]06-10-2025 13:52-0400Body ugkxxh890.43 kgAleksandra Sandoval MD Work Phone: [facility] Mqwrzg97-01-8287 10:57-0400Body ilpndf487.2 cmLoc PIKE Work Phone: [facility]04-30-2025 10:57-0400Body mass index (BMI) [Ratio]49.18 kg/m5XtkjqmkaLoc PIKE Work Phone: [facility] Xphpus31-69-8540 10:57-0400Body bzvkaf081.43 kgLoc PIKE Work Phone: [facility] Cdifqi88-15-5407 10:57-0400Diastolic blood mm[Hg]Loc PIKE Work Phone: [facility] Ewcurs26-63-7581 10:57-0400Heart rate 69 /minLoc PIKE Work Phone: [facility]04-30-2025 10:57-0400Systolic blood mm[Hg]Loc PIKE Work Phone: [facility]01-24-2025 13:51-0500Body gnvziy385.18 cmP[facility]01-24-2025 13:51-0500Body mass index (BMI) [Ratio]48.9 kg/p4JigqwwvjcPike Community Hospital01-24-2025 13:51-0500Body kaviwm787.52 kgPike Community Hospital01-24-2025 13:51-0500Diastolic blood xkkuwavk68 mm[Hg][facility] 08-16-2024 13:51-0500Heart rate89 /minPike Community Hospital 08-16-2024 13:51-0500Systolic blood szsyfpbx865 mm[Hg][facility]12-31-2024 11:08-0500Diastolic blood txtenzav24 mm[Hg][facility] [address] [place], [place] 6094012-31-2024 11:08-0500Systolic blood tzehucqw370 mm[Hg][facility] [address] [place], [place] [address]2012-31-2024 11:00-0500Body zzgalcuzaay66.7 [degF][address]12-31-2024 11:00-0500Heart rate70 /minMetro [address] [place], [place] 6094012-31-2024 11:00-0500Respiratory rate20 /minMetro [address] [place], [place] 6094012-31-2024 11:00-8477OdA2% (BldA) [Mass fraction]96 %[address]12-31-2024 10:45-0500Body myvwng303.[address]12-31-2024 10:45-0500Body mass index (BMI) [Ratio]49.31 kg/x1Jjxas[address]12-31-2024 10:45-0500Body atyqtz313.[address]11-07-2024 14:26-0500Body mass index (BMI) [Ratio]48.6 kg/m2 [facility]11-07-2024 14:26-0500Body ymvupx495.06 kg [facility]11-07-2024 14:26-0500Diastolic blood klkebvbb71 mm[Hg][facility]11-07-2024 14:26-0500Heart rate99 /min [facility]11-07-2024 14:26-0500Systolic blood pwljcqos475 mm[Hg][facility]11-07-2024 09:12-0500Body nthdna184.18 cmPike [facility] Hospital11-03-2024 13:00-0500Heart rate82 /Emiliano Iqbal MD Work Phone: [phone] [place], [place] 4142111-03-2024 13:00-0500 Respiratory rate18 /Emiliano Iqbal MD Work Phone: [phone] [place], [place] [address]111-03-2024 13:00-4360EtY7% (BldA) [Mass fraction]96 %Tabby Iqbal MD Work Phone: [phone]11-03-2024 11:15-0500Diastolic blood xqgqaruj29 mm[Hg]Tabby Iqbal MD Work Phone: [phone]11-03-2024 11:15-0500Systolic blood epbyabum335 mm[Hg]Tabby Iqbal MD Work Phone: [phone]11-03-2024 07:45-0500Body xepqpljfdzd10.9 [degF]Tabby Iqbal MD Work Phone: [phone]11-03-2024 05:00-0500Body mass index (BMI) [Ratio]49.24 kg/v0GjrirTabby Iqbal MD Work Phone: [phone]11-03-2024 05:00-0500Body migkrc639.9 kgTabby Iqbal MD Work Phone: [phone] [place], [place] 4142110-29-2024 18:06-0400Body nuplbw443.7 cmPnora Iqbal MD Work Phone: [phone]10-24-2024 10:44-0400Body bmmymf021.18 cmP[facility]10-24-2024 10:35-0400Body mass index (BMI) [Ratio]51 kg/u9BpzjuxuvlPike Community Hospital10-24-2024 10:35-0400Body muvvih950.87 kgP[facility] Hospital10-24-2024 10:35-0400Diastolic blood welgwunw89 mm[Hg][facility] 05-16-2024 10:35-0400Heart rate77 /minPike Community Hospital 05-16-2024 10:35-0400Systolic blood kndewdzy411 mm[Hg][facility]06-25-2024 09:18-0400Blood Pressure LocationJENNIFER ADRIAN [facility]06-25-2024 09:18-0400Diastolic blood ksxgumiv04 mm[Hg]THUY ADRIAN [facility]06-25-2024 09:18-0400Heart rate68 /minJENNIFER ADRIAN [facility]06-25-2024 09:18-0400Respiratory rate16 /minJENNIFER ADRIAN [facility]06-25-2024 09:18-0400Systolic blood yrgegcik666 mm[Hg]THUY ADRIAN [facility]04-03-2024 09:30-0400Body mgedrx791.18 cmP[facility]04-03-2024 09:30-0400Body mass index (BMI) [Ratio]51.2 kg/d2CltoprohaPike Community Hospital04-03-2024 09:30-0400Body sohmnu068.32 kgP[facility] Hospital04-03-2024 09:30-0400Diastolic blood mm[Hg] [facility]04-03-2024 09:30-0400Heart rate95 /minPike [facility] Hospital04-03-2024 09:30-7352OxH0% (BldA) [Mass fraction]96 % [facility]04-03-2024 09:30-0400Systolic blood cyebwfxo086 mm[Hg][facility]03-23-2024 12:49-0400Body wwtusd395.18 cm [facility]03-23-2024 12:49-0400Body mass index (BMI) [Ratio]52 kg/d4AocbclnfgPike Community Hospital03-23-2024 12:49-0400Body lmwlhtdezgg26.4 [degF][facility]03-23-2024 12:49-0400Body ijodkd641.59 kgPike Community Hospital03-23-2024 12:49-0400Heart rate 64 /[facility]03-23-2024 12:49-0400Respiratory rate18 /[facility]03-23-2024 12:49-0891GzF2% (BldA) [Mass fraction]97 %[facility] Encounters Encounter DateEncounter TypeCare ProviderFacilityStart: 06-02-2025 End: 06-03-1939ywdthiurkuGfukijdFouzia Mendoza MDFacility:[facility] [place] Start: 05-20-2025 End: 00-52-7534mzfjghaqsnZelkdf E Braun MD Work Phone: -[facility] Centertart: 05-20-2025 End: 80-69-7522Ozevxib encounter procedureOlman Shoemaker MD-[facility] Work Phone: Start: 04-08-2025 End: 46-42-5981Jxqggtis ReferredOUTREWEST SE[facility] Work Phone: Start: 04-08-2025 End: 81-50-0869remsglnonzAjpsal E Braun MD Work Phone: [facility] Work Phone: Start: 02-05-2025 End: 17-71-7152Fikisp outpatient visit 15 minutesAleksandra Sandoval MD Work Phone: [facility] Genito-Urinary SurgeonsComment on above:Mineral metabolism disorder (Primary Dx)Start: 02-05-2025 End: 33-03-7323gevhnkerqjPAHBOYW G RASHIDKerbs Memorial HospitalEsthela [facility] Ambulatory PPGStart: 12-31-2024 End: 17-52-0485Nmfvajexs encounterAleksandra Sandoval MD Work Phone: [facility] Genito-Urinary SurgeonsStart: 12-31-2024 End: 83-25-7752Zccrkq outpatient visit 25 minutesAleksandra Sandoval MD Work Phone: [facility]icians Genito-Urinary SurgeonsComment on above:Mineral metabolism disorder (Primary Dx); Kidney stoneStart: 12-31-2024 End: 48-27-0827pylylxzxoqKWNZOQO G RASHIDDunlap Memorial Hospital Ambulatory PPGStart: 12-06-2024 End: 90-39-9509mlsabqvdtnFFVANFYXHCA [facility] Healthcare Conroetart: 11-20-2024 End: 59-69-5533Apugrwqxu encounterLoc PIKE Work Phone: [facility] Genito-Urinary SurgeonsStart: 83-35-0464dfxuxivcgpXQIKMYWHHCA Houston Healthcare Conroetart: 11-20-2024 End: 50-03-7716Mvxcyl outpatient visit 25 minutesLoc PIKE Work Phone: [facility] Physicians Genito-Urinary SurgeonsComment on above:Kidney stones (Primary Dx); Pelvicaliectasis; Kidney stoneStart: 11-20-2024 End: 55-33-8528msqenurjtaKFQAPQNIMercy [facility] Start: 11-11-2024 End: 63-05-1870jdonccggrzEQXIZZ [facility] HospitalStart: 09-11-2024 End: 28-91-0369Pzhqejqan encounterEmse Chen MD Work Phone: [facility] Physicians Genito-Urinary SurgeonsStart: 09-11-2024 End: 79-93-3310Zpddywhtsg and management of inpatientESME CHENMercy Health St. Rita's [facility] Center HospitalStart: 08-22-2024 End: 26-42-9735zsmlclaelaNQGXGX M RAGHAVANHolzer Medical Center – Jackson HospitalStart: 08-16-2024 End: 11-23-3639sjtmwodevyMaumujkgjMercy Health Cl[facility] Hospital Work Phone: Start: 08-16-2024 End: 36-08-8967Whipfiy encounter procedureJosh Physician GroupTrumbull Memorial Hospital Work Phone: Start: 08-09-2024 End: 72-22-7568Wzeelbncn encounterEsme Chen MD Work Phone: [facility] Genito-Urinary SurgeonsStart: 08-08-2024 End: 08-23-3299zcxhbntkzfTOBGGU M RAGHAVANMercy Health St. Rita's Medical Center HospitalStart: 08-08-2024 End: 37-49-9357Eqqewxbtzb and management of inpatientESME Morfin AMBERMercy Health St. Rita's Medical Center HospitalStart: 07-23-2024 End: 06-31-4005ttfopfoowkTGSYSH M [facility] SYSTEMLARRYMercy Health St. [facility]'s [facility] Center HospitalStart: 07-23-2024 End: 04-71-5775Lkknolm encounter procedureMetro Pat Provider 1[facility] On [facility] HospitalComment on above:Hypokalemia (Primary Dx); Calculus of ureterovesical junction (UVJ)Start: 06-29-2024 End: 14-15-6102Dgmmkssxv encounterEsme Chen MD Work Phone: [facility] Intra OperativeStart: 06-27-2024 End: 05-44-5685gttrwmvswlCUHICW Navjot [facility] SYSTEMLARRYTrinity Health Systemtart: 06-18-2024 End: 66-71-6086iybicuqiabZJZFCF E BRAUNProMedica Palmer HospitalStart: 06-14-2024 End: 44-90-6993Eoppkilqm to establishmentMetro Pat Phone Call Provider 2 [facility] On [facility] Hospitaltart: 06-14-2024 End: 86-49-5714Cgutivqcjn and management of inpatientMARCIA E BRAUNProMedica Jacksboro HospitalStart: 06-06-2024 End: 30-47-3138JlucglCecilia MITCHELL Work Phone: [facility] Infectious DiseaseComment on above:Bacteremia (Primary Dx)Start: 05-30-2024 End: 42-88-1520Uyinttz encounter procedureUnc Hospitals [facility] Work Phone: Start: 05-27-2024 End: 82-24-7997Pjwqnqreq encounterMicnavid Messina RMAProMedica Physicians Genito- Urinary SurgeonsStart: 61-43-0509Qjy-patient / Non-visitUnc Hospitals Hills[facility] Physician Group-[facility] Work Phone: Start: 05-23-2024 End: 40-89-8949Ojxltxbyc encounterEsme Chen MD Work Phone: [facility] Genito-Urinary SurgeonsStart: 36-89-7667Tbcdzbp encounter [facility] Hospitaltart: 36-10-1435Scr-patient / Non-visitUnc Hospitals Hills[facility] Physician [facility] Work Phone: Start: 05-21-2024 End: 94-54-1416Eejmfsxsvv and management of inpatientREBECCA S [facility] HospitalStart: 87-67-7348omcgglscfrTUIIPJGood Samaritan [facility] Ambulatory PPGStart: 05-21-2024 End: 06-91-6635Pkyqcrmwcc and management of inpatientCHRISTOPHER EWThe [facility] HospitalStart: 05-21-2024 End: 96-37-7374Pfdqgjobxg and management of inpatientEmile Eli MENDOZA Work Phone: [facility] - GEN 9 ICUComment on above: Septic shock ([facility]-H[facility]) (Primary Dx); E coli bacteremia; NephrolithiasisStart: 41-97-3436Qoh-patient / Non-visitUnc Hospitals Hills[facility] Physician Group-[facility] Work Phone: Start: 05-16-2024 End: 05-62-9174rmepwjjoviVzaybhhncUC Health Work Phone: Start: 05-16-2024 End: 41-59-7199Zovmtju encounter procedureUnc Hospitals Hills[facility] Campus Physician GroupTrumbull Memorial Hospital Work Phone: Start: 01-16-2024 End: 88-46-2693ispmqizydeTVBKWEVB E PERRYFacility:EU BellevueStart: 01-16-2024 End: 07-83-4436Zewbgqp encounter procedureJENNIFER E ADRIAN [facility] Sacha start: 10-25-2023 End: 92-20-2652znywskbcduJdxjnirhpMercy Health Clermont Hospital Work Phone: Start: 10-25-2023 End: 78-03-3311Kvwpuxz encounter procedureUnc Hospitals [facility] Physician [facility] Work Phone: Start: 10-14-2023 End: 96-01-6103pdbkmrtqklPtzvnlbutMercy Health Clermont Hospital Work Phone: Start: 10-14-2023 End: 13-95-2017Mpfncnm encounter procedureUnc Hospitals [facility] Physician [facility] [facility] Work Phone: Start: 03-14-2023 End: 57-96-4974ylxoymygdeHwdejp Braun Other noDormir [employer] Other Start: 78-19-7020Ravtuwphh encounterMarcia SaharaUniversity Hospitals Beachwood Medical Centertart: 03-09-2023 End: 31-58-5817eyfcbqucrkUotekz Sahara Other [facility] [employer] Other Start: 73-90-7957Dvgujofta encounterMarcia SaharaUniversity Hospitals Beachwood Medical Centertart: 02-16-2023 End: 12-65-0305labbmbtrfbElooov Sahara Other noDormir [employer] Other Start: 88-47-0803Fzrvzbdoc encounterMarcia SaharaUniversity Hospitals Beachwood Medical Centertart: 02-09-2023 End: 13-13-3306wkdutpchioNuijhn Sahara Other Nort [employer] Other Start: 23-73-6400Sqsjrpzqi encounterOlman Shen [facility] ClinicStart: 08-10-2022 End: 68-69-7271Pjp Drop offJEELVIN CAMPBELL [facility] Start: 08-08-2022 End: 47-88-9328sqmrnnkxbhFO DOCTOR MISCFacility:N5Lnsws: 03-10-2022 End: 31-06-7969tfeneapvhpWN OLMAN SHOEMAKERFacility:R0Mebmy: 02-22-2021 End: 01-23-8211bchoppaoroNVTTCYG TANGFacility:[facility]ENTERtart: 01-14-2021 End: 23-62-0527hoqqzzggmbOVGKOES TANGFacility:[facility] Procedures DateProcedureProcedure DetailPerforming ClinicianStart: 25-93-8839Qjckfy-up visitFollow-upMICHELLE I MURPHYStart: 54-11-5796Eknjc metabolic panel calcium totalDiana L Perea MANAGER [employer]IN[employer]ODUCTION SUPERVISOR Work Phone: Start: 97-93-8410Dxdltrz bacterial quanttative colony count urineEsme Chen MD Work Phone: Start: 12-16-7814Tofgt dip stick/tablet rgnt auto w/o microscopyEsme Chen MD Work Phone: Start: 46-17-9271Chuoy depression screening assessment Esme Chen MD Work Phone: Start: 52-27-8848Mbrni metabolic panel calcium total Lesvia Andrews MD Work Phone: Start: 00-53-7053Ieqbdjvrl serum plasma/whole blood Ralph Wei Avasilcai MANAGER CHINESE-PRODUCTION SUPERVISOR Work Phone: Start: 39-76-4864Hohhs metabolic panel calcium total Lesvia Andrews MD Work Phone: Start: 63-23-9863Gjjuiceen serum plasma/whole blood Thuy J Elizabet MANAGER CHINESE-PRODUCTION SUPERVISOR Work Phone: Start: 05-24-2024 End: 23-95-3361Cjlsjuvyleqwr metabolic panelRyan Benitez MD Work Phone: Start: 72-93-0071Sgixypazd serum plasma/whole blood Ryan Benitez MD Work Phone: Start: 03-44-6609Iqsyjpitt serum plasma/whole blood Melissa Arana MANAGER CHINESE-PRODUCTION SUPERVISOR Work Phone: Start: 79-31-1139Vzwfkar bacterial blood aerobic w/id isolatesBerpritesh Boyd MANAGER CHINESE-PRODUCTION SUPERVISOR Work Phone: Start: 86-70-1529Vlwtkauvuyjrk metabolic panelCristian Petrisor Avasilcai MANAGER CHINESE-PRODUCTION SUPERVISOR Work Phone: Start: 05-22-2024 End: 71-39-0643Idxqpkwplkykj metabolic panelCristian Petrisor Avasilcai MANAGER CHINESE-PRODUCTION SUPERVISOR Work Phone: Start: 36-53-2109Bpjwuipjf serum plasma/whole blood Ruel Leblanc MANAGER CHINESE-PRODUCTION SUPERVISOR Work Phone: Start: 54-56-2454Emffp dip stick/tablet rgnt auto w/o microscopyMojohnny Thompson MD Work Phone: Start: 40-02-3810Tsaf nephrostomy cath prq new access rs&iRebecca S Lencho PIKE Work Phone: Start: 39-05-8107Gmuhq of lactateCristian Petrisor Avasilcai MANAGER CHINESE-PRODUCTION SUPERVISOR Work Phone: Start: 05-21-2024 End: 13-15-6705Ydvksck bacterial quanttative colony count urineCristian Petrisor Avasilcai MANAGER CHINESE-PRODUCTION SUPERVISOR Work Phone: Start: 67-61-5167Ymayyryyzv exam chest single view Dana Reynoso MANAGER CHINESE-PRODUCTION SUPERVISOR Work Phone: Start: 05-21-2024 End: 24-28-6767Fpxk cathj/cannulj mntr/transfusion spx prqEvan Prielipp [facility] Work Phone: Start: 08-06-1485Hbh routine ecg w/least 12 lds trcg only w/o i&rCristian Petrisor Avasilcnatividad [facility]ENTERSaffron TechnologyCARNEY HOSPITAL Work Phone: Start: 26-14-6078IBNW ARTERIAL LINE SETUPEvscot Estrellaelirenu [facility]ENTERSaffron TechnologyCARNEY HOSPITAL Work Phone: Start: 59-82-2421Paoyzdar Identification OnlyStart: 05-21-2024 End: 30-91-3261Ztpbhffwwdlnb metabolic panelCristian Eriberto Arriagaasilcnatividad [facility]ENTERSaffron TechnologyCARNEY HOSPITAL Work Phone: Start: 45-97-7963Xjssy depression screening assessment Esme Chen MD Work Phone: Start: 27-23-3962RUKHWO REPAIR OF HERNIAJIANLIN PAGAN Start: 46-86-2319RXKYXIGL VENTRL DENTON REDUCEJIANLIN TANGStart: 02-03-2020 Extracorporeal shockwave lithotripsy of calculus of kidneyDEVINNIFER ADRIAN Start: 93-17-4377Blwjvai of arthroplasty of left knee THUY CAMPBELL Start: 48-96-3329Vzyfc replacement of right knee joint THUY CAMPBELL Comment on above:UTMCStart: 42-35-6102Jks-surgery evaluationMarcia Shoemaker Other Start: 07-54-1281Mojmmrhfy mammographyMarcia Shoemaker Other CholecystectomyJENNIFER ADRIAN HysterectomyJENNIFER ADRIAN Removal of sutureMarcia Shoemaker Other Repair of right inguinal herniaJENNIFER ADRIAN Comment on above:unknown year Plan of Treatment DateCare ActivityDetailAuthorStart: 02-16-2026 End: 30-16-8470Xswaqph encounter obfgmtyju40/27/2026 1:00 PM EDT Office Visit [facility] [address] [place] [address] [address] [facility] [place] [address] Aleksandra Sandoval MD [facility] [place] [id number] [facility]Urinary SurgeonsStart: 66-06-7754Jvxby BMI ScreeningAdult BMI Screening [facility] SystemStart: 42-79-0082Otumsms ScreeningTobacco Screening [facility] SystemStart: 02-05-2026 End: 98-17-8612IL Abdomen APX-ray abdomen ap 1 view Imaging Routine Mineral metabolism disorder Expected: 02/05/2026 (Approximate), Expires: 02/05/2027 [facility] Work Phone: Comment on above:Expected: 02/05/2026 (Approximate), Expires: 02/05/2027Start: 70-40-5162Orktn BMI ScreeningAdult BMI Screening [facility] SystemStart: 02-38-0854Hqdzawa ScreeningTobacco Screening [facility] SystemStart: 82-02-8283Wkums BMI ScreeningAdult BMI Screening [facility] SystemStart: 22-95-8794Vddxxef ScreeningTobacco Screening [facility] SystemStart: 04-28-1797Duxjv BMI ScreeningAdult BMI Screening [facility] Centera [facility] SystemStart: 41-32-9950Cuycqnp ScreeningTobacco Screening [facility] SystemStart: 45-02-9792Uphfw BMI ScreeningAdult BMI Screening [facility] SystemStart: 83-21-8437Onkno BMI ScreeningAdult BMI Screening [facility] SystemStart: 31-55-9116Gvmsvtz ScreeningTobacco Screening [facility] SystemStart: 77-45-7512Xwauf BMI ScreeningAdult BMI Screening [facility] Pointtart: 44-86-7838Wslqtqe ScreeningTobacco Screening [facility] SystemStart: 28-52-7946Snntuumgqz ScreeningDepression Screening [facility] Pointtart: 61-37-9999Yhyas BMI ScreeningAdult BMI Screening [facility] Pointtart: 70-19-1305Flaqq BMI ScreeningAdult BMI Screening [facility] SystemStart: 53-54-4590Sxakumgitw ScreeningDepression Screening [facility] SystemStart: 00-09-3740Ezwkxou ScreeningTobacco Screening [facility] Pointtart: 07-94-6873Tbybckmlr vaccinationInfluenza Vaccine [facility] Pointtart: 11-20-2024 End: 23-90-0920VL Kidney and Ureter and Urinary bladder 3D post processing WO and W contrast IVCT urogram Imaging Routine Kidney stones Pelvicaliectasis Expected: 11/20/2024, Expires: 11/20/2025[employer] Work Phone: Comment on above:Expected: 11/20/2024, Expires: 11/20/2025Start: 11-10-2024 End: 68-32-9986ZY RetroperitoneumUltrasound retroperitoneal complete Imaging Routine Calculus of ureterovesical junction (UVJ) Expected: 11/10/2024 (Approximate), Expires: 12/09/2024[employer] Work Phone: Comment on above:Expected: 11/10/2024 (Approximate), Expires: 12/09/2024Start: 09-11-2024 End: 93-82-3486EMMTLVNQXJ REMOVAL STENTCYSTOSCOPY REMOVAL STENT Calculus of ureterovesical junction (UVJ) 09/11/2024 7:34 AM [facility] Start: 08-09-2024 End: 90-47-7732WD Abdomen and Pelvis WO contrastCT abdomen and pelvis without contrast Imaging Routine Flank pain Expected: 08/09/2024, Expires: 11/07/2024 [employer] Work Phone: Comment on above:Expected: 08/09/2024, Expires: 11/07/2024Start: 07-31-2024 End: 09-52-4026Hejezpxlx to same day surgery jxfgfy8607/31/2024 3:30 PM EST - 07/31/2024 5:15 PM EST Surgery [facility] [address] [place] [phone] Esme Chen MD [address] [place] [address] LASER HOLMIUM URETEROSCOPY RENAL STONES < OR=1CM [97400 (CPT )][facility] HospitalComment on above:LASER HOLMIUM URETEROSCOPY RENAL STONES < OR=1CM [48661 (CPT )]Start: 07-31-2024 End: 48-39-8131Aggow w/insert ureteral stentCYSTOSCOPY EXCHANGE STENT URETER Calculus of ureterovesical junction (UVJ) 07/31/2024 3:30 PM ESTTOLED SURGERY Start: 07-31-2024 End: 11-39-3880Qdmja w/ureteroscopy w/lithotripsyLASER HOLMIUM URETEROSCOPY RENAL STONES < OR=1CM Calculus of ureterovesical junction (UVJ) 07/31/2024 3:30 PM [facility] SURGERYStart: 43-98-7076Lftcdzjivt hospital visit by physician 07/31/2024 3:30 PM EST Hospital Encounter [facility] - Surgery [address] [place] [phone] Esme Chen MD [address] [place] [address] [facility]Start: 06-28-2024 End: 70-04-1468Irdgzyfzp to same day surgery fkbiea2006/28/2024 1:00 PM EST - 06/28/2024 3:00 PM EST Surgery [facility] [address] [place] [phone] Esme Chen MD [address] [place] [phone] LASER HOLMIUM URETEROSCOPY RENAL STONES < OR=1CM [91403 (CPT )][facility] Memorial HospitalComment on above:LASER HOLMIUM URETEROSCOPY RENAL STONES < OR=1CM [82067 (CPT )]Start: 06-28-2024 End: 95-26-3684Dkpxl w/insert ureteral stentCYSTOSCOPY INSERTION STENT URETER Septic shock (CMS-HCC) Calculus of ureterovesical junction (UVJ) 06/28/2024 1:00 PM [facility] SURGERYStart: 06-28-2024 End: 79-96-3784Dvndt w/ureteroscopy w/lithotripsyLASER HOLMIUM URETEROSCOPY RENAL STONES < OR=1CM Septic shock (CMS-HCC) Calculus of ureterovesical junction (UVJ) 06/28/2024 1:00 PM [facility] SURGERYStart: 99-47-0678Wlqpvrjcnr hospital visit by pbevzqrvl44/06/2024 1:00 PM EST Hospital Encounter [facility] [address] [place] [phone] Esme Chen MD [address] [place] [phone] [facility] SurgeryStart: 06-27-2024 Evaluation and management of bjewxnacn86/05/2024 12:01 AM EST Hospital Encounter Esme Chen MD [facility] [place] [phone] [facility] SystemStart: 06-14-2024 End: 78-35-7705Jzplqopcq to ywkfynjmlixjh81/22/2024 11:30 AM EST Support Visit [facility] On [address] [address]OlbZlqfmt [facility] Start: 06-06-2024 End: 84-46-0063CUGJ Line RemovalPICC Line Removal Procedures Routine Bacteremia Expected: 06/06/2024 (Approximate), Expires: 07/06/2024[facility] Work Phone: Comment on above:Expected: 06/06/2024 (Approximate), Expires: 07/06/2024Start: 61-56-7955Jiemhm ID + SusceptAerobe ID + Suscept [facility]tart: 84-70-4695Deqlegcc Identification Only Anaerobe Identification OnlyMartin Memorial Hospitaltart: 03-24-2024 COVID-19 Vaccine ( season)COVID-19 Vaccine ( season) [facility] Tradier SystemStart: 66-34-0761Xqbtquxhe vaccinationInfluenza Vaccine [facility] SystemStart: 14-49-8245Dkqb Risk ScreeningFall Risk Screening [facility] [email or web address]: 23-82-5598OOkP,Tdap and Td Vaccines (1 - Tdap) DTaP,Tdap and Td Vaccines (1 - Tdap)[facility] [email or web address].comtart: [birth year]-11-1975 Adult BMI Follow Up PlanAdult BMI Follow Up PlanOhio State Harding HospitalBacteria identified in Blood by Aerobe cultureOhio State Harding HospitalBauofl health - [facility] metabolic 2000 panel - Serum or PlasmaBasic Metabolic Panel Lab Routine Lab max of 3 days, Daily, for lab use only until discontinued starting 05/25/2024, 2 completed [facility] Work Phone: Comment on above:Lab max of 3 days, Daily, for lab use only until discontinued starting 05/25/2024, 2 completedCBC W Auto Differential panel - BloodCBC auto differential Lab Routine Lab max of 3 days, Daily, for lab use only until discontinued starting 05/25/2024, 2 completedSt. [facility] SystemComment on above:Lab max of 3 days, Daily, for lab use only until discontinued starting 05/25/2024, 2 completedComprehenve metabolic 2000 panel - Serum or PlasmaPike Community HospitalComprehensive metabolic 2000 panel - Serum or PlasmaFirelands Regional Medical Center End: 94-88-9580Qviuwunnbs includes GFR, serumCreatinine includes GFR, serum Lab STAT STAT for 1 Occurrences starting 05/21/2024 until 05/21/2024[facility] CenterComment on above:STAT for 1 Occurrences starting 05/21/2024 until 05/21/2024 End: 71-40-7824Pdxhxjhmof includes GFR, serumCreatinine includes GFR, serum Lab Routine E coli bacteremia weekly for 2 Occurrences starting 05/25/2024 until 05/25/2025[facility] SystemComment on above:weekly for 2 Occurrences starting 05/25/2024 until 05/25/2025 End: 22-52-4791Jsrmqse magnesiumIonized magnesium Lab Routine Once for 1 Occurrences starting 05/26/2024 until 05/26/2024[facility] CenterComment on above:Once for 1 Occurrences starting 05/26/2024 until 05/26/2024 End: 88-80-4714Ziwkqkw [Moles/volume] in Serum or PlasmaLactate Lab Routine Once for 1 Occurrences starting 05/21/2024 until 05/21/2024[facility] Comment on above:Once for 1 Occurrences starting 05/21/2024 until 05/21/2024 End: 77-21-4030Hvfsrbw [Moles/volume] in Serum or PlasmaLactate Lab Routine Once for 1 Occurrences starting 05/22/2024 until 05/22/2024[facility] Work Phone: Comment on above:Once for 1 Occurrences starting 05/22/2024 until 05/22/2024 End: 93-45-7425Ndswlojguw [#/volume] in BloodWBC Lab Routine E coli bacteremia weekly for 2 Occurrences starting 05/25/2024 until 05/25/2025[employer] Work Phone: Comment on above:weekly for 2 Occurrences starting 05/25/2024 until 05/25/2025 End: 68-53-6764Xdjibnxwx 24 HourLitholink 24 Hour Lab Routine Kidney stone 1 Occurrences starting 12/31/2024 until 12/31/2025[employer] Work Phone: Comment on above:1 Occurrences starting 12/31/2024 until 12/31/2025 End: 23-59-0586Rolws panelLiver panel Lab Routine E coli bacteremia weekly for 2 Occurrences starting 05/25/2024 until 05/25/2025[facility] Tradier SystemComment on above:weekly for 2 Occurrences starting 05/25/2024 until 05/25/2025Magnesium [Mass/volume] in Serum or PlasmaMagnesium Lab Routine Lab max of 3 days, Daily, for lab use only until discontinued starting 05/25/2024, 2 completedProCooper Green Mercy Hospital Health SystemComment on above:Lab max of 3 days, Daily, for lab use only until discontinued starting 05/25/2024, 2 completedMG Breast - bilateral Screening [facility] HospitalOxygen Therapy - Maintain SpO2: 90%; *ELECTRIC METER REPAIRER Guidelines for O2: Yes; Document: \Pelotonicsi.promedica.org\epi c\EPIC_Reference\Orders\Respiratory Care Guidelines\CPG Oxygen 2022.pdfOxygen Therapy - Maintain SpO2: 90%; *ELECTRIC METER REPAIRER Guidelines for O2: Yes; Document: \phsi.promedica.org\epic\EPIC_Reference\Orders\Respiratory Care Guidelines\CPG Oxygen 2022.pdf Respiratory Care Routine AsNeeded until discontinued starting 05/21/2024[facility]MedCheyenne Mountain [employer] Work Phone: Comment on above:As Needed until discontinued starting 05/21/2024 End: 71-97-9423Vikbhslvv [#/volume] in BloodPlatelet count Lab Routine E coli bacteremia weekly for 2 Occurrences starting 05/25/2024 until 05/25/2025 [facility] Tradier SystemComment on above:weekly for 2 Occurrences starting 05/25/2024 until 05/25/2025 End: 49-65-7980Ucgwzhnz I, High Sensitivity 3 HourTroponin I, High Sensitivity 3 Hour Lab Routine Once for 1 Occurrences starting 05/21/2024 until 05/21/2024 [facility] Tradier SystemComment on above:Once for 1 Occurrences starting 05/21/2024 until 05/21/2024XR Lumbar spine [address] [facility] Immunizations Immunization DateImmunizationNotesCare NvzcugsmHveixlmi84-90-1349xcedso vaccine recombinantJENNIFER ADRIAN [facility]07-18-2023zoster vaccine recombinantJENNIFER ADRIAN [facility]11-09-2021SARS-CoV-2 (COVID-19) mRNA BNT-162b2 vaxJENNIFER ADRIAN [facility] HospitalComment on above:Result Comment: 2022-08-10: AGZ7928-88-5884FDPZ-ZbQ-7 (COVID-19) mRNA BNT-162b2 vaxJENNIFER ADRIAN [facility]02-12-2021SARS-CoV-2 (COVID-19) mRNA BNT-162b2 vaxJENNIFER ADRIAN [facility] Payers DatePayer CategoryPayerPolicy [id number]-weo [id number] Unknown2024Medicare [id number] [id number]-pjc [id number] 2..840.1.881025.3.57[id number] 2.840.1.605694.3.579.2.14928-21-2366Ycxuenf4975606 2.840.1.030490.3.57[id number] 2.840.1.707590.3.579.[id number] 2.840.1.265302.3.579.[id number] 2.0.1.841341.3.579.2.[id number] 2.0.1.044138.3.579.2.436377-19-1999Agspkrh21983633 2.0.1.551317.3.579.2.542821-43-9796Nogqhon05283401 2.0.1.640697.3.579.2.799530-01-2948Cebnixb30631933 2.0.1.646854.3.579.2.697369-20-7348Isqvtfv30059961 2.0.1.078248.3.579.2.105918-53-3263Ynyepev69540302 2..1.084898.3.579.2.920574-13-5081Asfgqyw085441322 2.0.1.081651.3.579.2.995837-14-4060Bsosfno915143668 2.840.1.933961.3.579.2.032796-80-9211Ztizihx253032374 2.840.1.053995.3.579.2.328558-90-4964Gnyytsh860882455 2.840.1.665874.3.579.2.560968-36-5271Vdusnzo53338642 2.16.840.1.557691.3.579.[id number] 2.16.840.1.512452.3.579.2.6[id number] 2.16.840.1.665069.3.579.2.407508-38-8261Pjncvgr806480776 2.16.840.1.812713.3.579.2.234406-66-9885Jybwase92727306 2..840.1.878530.3.579.2.982432-87-8493Gocdkfn28673899 2..840.1.575282.3.579.2.945417-83-7852Basvnhh90664085 2.840.1.163297.3.579.2.92717-39-2344Svmvluk587151426 2..840.1.55[id number] gh821545-47qa-06r4-t09b-h70q2p2ky4d9Cucmbgx8920968 2.840.1.003582.3.579.2.593 Gjzzngl01598176 2.840.1.492968.3.579.2.531 Social History DateTypeDetailFacilityStart: 08-10-2022 End: 90-37-0875Zgswsnq smoking statusEx-smoker (finding)[facility] Systemtart: 09-03-2020 End: 47-23-2798Sbl Assigned At [facility]tart: 64-81-8692Szb Assigned At [facility] HospitalTobacco smoking statusNeverExec[facility] End: 58-23-8055Nyesbut of tobacco useCurrent smokerOhio State Harding Hospital End: 03-41-9725Ummsfit of tobacco useCigarette SmokerOhio State Harding Hospital History of tobacco usePassive smokerCone Health MedCenter High Pointtart: 06-14-2024 End: 75-01-6798Sfaorit use and exposureSmokeless tobacco non-userCone Health MedCenter High Pointtart: 07-23-2024 End: 41-32-3632Qhpukzdiz beverage intakeLifetime non-drinker (finding)[facility] Pointtart: 09-03-2020 End: 69-62-4528Waiqmzw of Social functionOhio State Harding HospitalHas the TV Volume Wizard App, gas, oil, or water company threatened to shut off services in your home in past [facility] CenterHow often to you have a drink containing alcohol?NeverCone Health MedCenter High Pointtart: 38-07-1338Yfjsbwe Comment 0.5ppd smoked on & off for about 20 yearsCone Health MedCenter High Pointtart: 16-51-2297Akh assigned at birthNot on fileCone Health MedCenter High Pointtart: 05-08-2018 End: 44-57-7482BskGzzxbm (finding)[facility] Pointtart: 05-21-2024 Tobacco smoking status NHISNever smoked tobaccoCone Health MedCenter High Pointtart: 71-20-5488Jmrvlnp Habshiv9432-7503 smoked on & off for about 20 yearsOhio State Harding Hospital Medical Equipment Procedure CodeEquipment CodeEquipment Original TextEquipment IdentifierDates Stent Uret 6fr 26cm 2 Pgtl Crv Rdpq Pstnr [facility] [id number]: 64-73-1222Ionccmq on above:Description: NO STRINGSStent Uret 6fr 26cm 2 Pgtl Crv Rdpq Pstnr [facility] [id number]: 52-93-0855Rhnro Uret 6fr 26cm 2 Pgtl Crv Rdpq Pstnr [facility] [id number]: 09-11-2024 Goals DatePatient GoalDesired Activity/StatePersonal health goalComment on above: Evaluation of progress towards goal: safe transition home with home care and support. Functional Status FjewZsopzfrvtfAdxxltQzvwcpkk43-37-9466Jlhkopvnab StatusN/AExec[facility] Mental Status DateAssessmentResultPSE&G Children's [facility] Clinical Notes 01-16-2024 to 04-08-2025 Note Date & YqlnCbpjKtlxgqmn11-13-0913 [facility]iology [facility] Main [place] [id number] Ultrasound Report Signed Patient: Sharri Murillo MR#: [id number] 80 : 1955 Acct:[id number] Age/Sex: 69 / F ADM Date: 5 Loc: RH Room: Type: REG REF Attending Dr: Bharathi Community Ordering Provider: STEFAN,OUTREACH Date of Service: 04/08/25 US/US community outreach aorta: SCREENING Copies to: COMMUNITY,OUTREACH ~ Aorta screening ultrasound HISTORY: Screening exam Normal caliber abdominal aorta. US/US community outreach aorta IMPRESSION: No abdominal aortic aneurysm. Impression dictated by: Milton Yap M.D. 04/08/2025 3:29 PM Dictation Location: [place] [address] Tech: Lamar Renowyatt Transcribed By: [facility] 04/08/25 1529 Dictated By: Milton Yap DO 04/08/25 1529 Signed By: 04/08/25 [facility]09-16-2025 Radiology Diagnostic study note [facility] Main [place] [id number] Ultrasound Report Signed Patient: Sharri Murillo MR#: [id number] [birth year] : 1955 Acct:[id number] Age/Sex: 69 / F ADM Date: 5 [...] by plethysmography are normal. US/US [facility] KATY IMPRESSION: NO HEMODYNAMICALLY SIGNIFICANT PERIPHERAL VASCULAR OCCLUSIVE DISEASE AT REST IN EITHER LOWER EXTREMITY. Impression dictated by: Jovany Heart MD,FACS,FSVS 04/08/2025 2:09 PM Dictation Location: [facility]04 Tech: Shira Vilchis Transcribed By: PWS 04/08/251408 Dictated By: Jovany Heart MD 04/08/251407 Signed By: 04/08/251408 [facility] Work Phone: 1(606) 182-442309-16-2025 Radiology Diagnostic study [facility] [place] [address] Ultrasound Report Signed Patient: Sharri Murillo MR#: [id number] [birth year] : 1955 Acct:[id number] Age/Sex: 69 / F ADM Date: 5 Loc: Room: Type: [facility] Attending Dr: Bharathi Counts Include [address] B[facility] At [facility] Ordering Provider: BHARATHI AVILES Date of Service: 04/08/25 US/US [facility] outreach carotid: SCREENING Copies to: [facility] VALDESEBHARATHI ~ CAROTID DUPLEX INDICATION: [facility] hospital carotid screening program. PROCEDURE: Color-flow duplex scanning [...] Heart MD,FACS,FSVS 04/08/2025 2:08 PM Dictation Location: [place] [address] Tech: Lamar Kathleen Transcribed By: KAMILAH 04/08/251407 Dictated By: Jovany Heart MD 04/08/251407 Signed By: 04/08/25 [address] [facility] Work Phone: 1(831) 176-845207-16-2025 History of Present illness Narrative* Aleksandra Sandoval MD - 02/05/2025 12:00 PM EDT Images from the original note were not included. [address] [place] [address] [address] [facility] [id number] Patient: Sharri Murillo Date of : 1955 Encounter Date: 02/05/2025 History of Present Illness: The patient is a 69 y.o. female, an established patient, and is here for Chief Complaint Patient presents with Follow-up . Mineral metabolism workup. Twenty-four urine litho link. Reviewed. Strategies discussed with the patient. Lxym-tgn-cglqpjk supplement also discussed. Subsequent imaging discussed as [...] past Migraines 07/23/2024 6x year Septic shock ([facility]) 05/21/2024 Visual impairment glasses Past Surgical History: Procedure Laterality Date CYSTOSCOPY EXCHANGE STENT URETER Left 08/08/2024 Performed by Esme Chen MD at [facility] CYSTOSCOPY INSERTION STENT URETER Left 06/28/2024 Performed by Esme Chen MD at [facility] CYSTOSCOPY REMOVAL STENT Left 09/11/2024 Performed by Esme Chen MD at [facility] CYSTOSCOPY RETROGRADE PYELOGRAM Left 08/08/2024 Performed by Esme Chen MD at [facility] CYSTOSCOPY RETROGRADE PYELOGRAM Left 06/28/2024 Performed by Esme Chen MD at [facility] HYSTERECTOMY age 42's INGUINAL HERNIA REPAIR x2 pt unsure of date JOINT REPLACEMENT Bilateral pt unsure of when KIDNEY STONE SURGERY 2017 I had kidney stones blasted LASER HOLMIUM URETEROSCOPY RENAL STONES < OR=1CM; STONE BASKET EXTRACTION Left 06/28/2024 Performed by Esme Chen MD at [facility] LASER HOLMIUM URETEROSCOPY WITH VACUUM ASPIRATION/STONE BASKETING Left 08/08/2024 Performed by Esme Chen MD at [facility] REMOVAL TUBE NEPHROSTOMY Left 06/28/2024 Performed by Esme Chen MD at [facility] TONSILLECTOMY as a child UMBILICAL HERNIA REPAIR pt unsure of when URETERAL DILATION Left 06/28/2024 Performed by Esme Chen MD at [facility] Family History Problem Relation Age of [...] damage causing pain and loss of function. ccojjjjx-dljt-TS-calcium &mins (THERAGRAN-M) 9 mg iron-400 mcg tablet [...] you for your understanding. documented in this encounterOhio [facility]06-10-2025 Miscellaneous Notes* Telephone Encounter - Kaylen Kendall - 12/31/2024 2:36 PM EDT I faxed litho link order successfully to [phone]. documented in this encounterOhio State Harding Hospital06-10-2025 Telephone encounter Note* Telephone Encounter - Kaylen Kendall - 12/31/2024 2:36 PM EDT I faxed litho link order successfully to [phone]. [facility]06-[facility] History of Present illness Narrative* Aleksandra Sandoval MD - 12/31/2024 1:45 PM EDT Images from the original note were not included. [address] [place] [address] A [facility] B [facility] [id number] Patient: Sharri Murillo Date of : 1955 [...] past Migraines 07/23/2024 6x year Septic shock ([facility]) 05/21/2024 Visual impairment glasses Past Surgical History: Procedure Laterality Date CYSTOSCOPY EXCHANGE STENT URETER Left 08/08/2024 Performed by Esme Chen MD at [facility] CYSTOSCOPY INSERTION STENT URETER Left 06/28/2024 Performed by Esem Chen MD at [facility] CYSTOSCOPY REMOVAL STENT Left 09/11/2024 Performed by Esme Chen MD at [facility] CYSTOSCOPY RETROGRADE PYELOGRAM Left 08/08/2024 Performed by Esme Chen MD at [facility] CYSTOSCOPY RETROGRADE PYELOGRAM Left 06/28/2024 Performed by Esme Chen MD at [facility] HYSTERECTOMY age 42's INGUINAL HERNIA REPAIR x2 pt unsure of date JOINT REPLACEMENT Bilateral pt unsure of when KIDNEY STONE SURGERY 2017 I had kidney stones blasted LASER HOLMIUM URETEROSCOPY RENAL STONES < OR=1CM; STONE BASKET EXTRACTION Left 06/28/2024 Performed by Esme Chen MD at [facility] LASER HOLMIUM URETEROSCOPY WITH VACUUM ASPIRATION/STONE BASKETING Left 08/08/2024 Performed by Esme Chen MD at [facility] REMOVAL TUBE NEPHROSTOMY Left 06/28/2024 Performed by Esme Chen MD at [facility] TONSILLECTOMY as a child UMBILICAL HERNIA REPAIR pt unsure of when URETERAL DILATION Left 06/28/2024 Performed by Esme Chen MD at [facility] Family History Problem Relation Age of [...] damage causing pain and loss of function. oycuydyr-rhmt-QG-calcium &mins (THERAGRAN-M) 9 mg iron-400 mcg tablet [...] you for your understanding. documented in this encounterOhio State Harding Hospital04-30-2025 Evaluation + Plan note* Assessment & Plan Note - SHAHZAD Coleman - 11/20/2024 1:06 PM EDT Associated Problem(s): Kidney stone Dr. Chen performed her procedures but she would like to see a doctor that goes to [place]. [facility]04-30-[facility] Miscellaneous Notes* Assessment & Plan Note - SHAHZAD Coleman - 11/20/2024 1:06 PM EDTAssociated Problem(s): Kidney stone Dr. Chen performed her procedures but she would like to see a doctor that goes to [place]. documented in this encounterOhio State Harding Hospital04-30-2025 Miscellaneous Notes* Telephone Encounter - Kaylen Kendall - 11/20/2024 11:31 AM EDT Offday appointment (at least 15 min) with Dr. Sandoval or Dr. Silverman for the results CT Urogram. Call to schedule after ct scheduled documented in this encounterOhio State Harding Hospital04-30-2025 Telephone encounter Note* Telephone Encounter - Kaylen Kendall - 11/20/2024 11:31 AM EDT Offday appointment (at least 15 min) with Dr. Sandoval or Dr. Silverman for the results CT Urogram. Call to schedule after ct scheduled [facility]04-[facility] History of Present illness Narrative* SHAHZAD Coleman - 11/20/2024 11:00 AM EDT Images from the original note were not included. [address] [place] [address] A [facility] [id number] Patient: Sharri Murillo Date of : 1955 [...] having any pain. She was following with [facility] and was last seen in December 2023 Summary of old records: Notes from Dr. Chen 05/21/24: The patient is a 68 y.o. female who presented to [facility] with history of recent UTI on 05/16 [...] ureter or renal pelvis. Pt transferred to [facility] as she has required Vasopressor for hypotension. [...] past Migraines 07/23/2024 6x year Septic shock ([facility]) 05/21/2024 Visual impairment glasses Past Surgical History: Procedure Laterality Date CYSTOSCOPY EXCHANGE STENT URETER Left 08/08/2024 Performed by Esme Chen MD at [facility] CYSTOSCOPY INSERTION STENT URETER Left 06/28/2024 Performed by Esme Chen MD at [facility] CYSTOSCOPY REMOVAL STENT Left 09/11/2024 Performed by Esme Chen MD at [facility] CYSTOSCOPY RETROGRADE PYELOGRAM Left 08/08/2024 Performed by Esme Chen MD at [facility] CYSTOSCOPY RETROGRADE PYELOGRAM Left 06/28/2024 Performed by Esme Chen MD at [facility] HYSTERECTOMY age 42's INGUINAL HERNIA REPAIR x2 pt unsure of date JOINT REPLACEMENT Bilateral pt unsure of when KIDNEY STONE SURGERY 2017 I had kidney stones blasted LASER HOLMIUM URETEROSCOPY RENAL STONES < OR=1CM; STONE BASKET EXTRACTION Left 06/28/2024 Performed by Esme Chen MD at [facility] LASER HOLMIUM URETEROSCOPY WITH VACUUM ASPIRATION/STONE BASKETING Left 08/08/2024 Performed by Esme Chen MD at [facility] REMOVAL TUBE NEPHROSTOMY Left 06/28/2024 Performed by Esme Chen MD at [facility] TONSILLECTOMY as a child UMBILICAL HERNIA REPAIR pt unsure of when URETERAL DILATION Left 06/28/2024 Performed by Esme Chen MD at [facility] Family History Problem Relation Age of [...] damage causing pain and loss of function. uidgjolo-yejt-FD-calcium &mins (THERAGRAN-M) 9 mg iron-400 mcg tablet [...] to see a doctor that goes to [place]. Follow-up: CT Urogram with Cr prior. Offday [...] SHAHZAD Coleman 11/20/24 1308 documented in this [facility]02-19-20[facility] Miscellaneous Notes* Telephone Encounter - Esme Chen MD - 09/11/2024 7:47 AM EST Patient had left ureteral stent removal today after previous ureteroscopy. Please have her follow up with SHAHZAD Landaverde in 2 months with a renal ultrasound. Thanks. documented in this [facility]02-19-2025 Telephone encounter Note* Telephone Encounter - Esme Chen MD - 09/11/2024 7:47 AM EST Patient had left ureteral stent removal today after previous ureteroscopy. Please have her follow up with SHAHZAD Landaverde in 2 months with a renal ultrasound. Thanks. [facility] Tradier [id number] Miscellaneous Notes* Telephone Encounter - Esme Chen MD - 08/09/2024 4:46 PM EST Patient had left ureteroscopy with stone treatment on 08/08. She needs to get a CT which I ordered scheduled at [facility] in the near future and based on these results, I will schedule her for3rd stage ureteroscopy or stent removal. Thanks. * Telephone Encounter - Ina Thompson CMA - 08/09/2024 4:46 PM EST [address] you Dr. Chen. [facility] for the pt to call central scheduling to get that CT scheduled. Also sent the pt a Viddy[employer] message. documented in this encounterOhio State Harding Hospital01-17-2025 Telephone encounter Note* Telephone Encounter - Esme Chen MD - 08/09/2024 4:46 PM EST Patient had left ureteroscopy with stone treatment on 08/08. She needs to get a CT which I ordered scheduled at [facility] in the near future and based on these results, I will schedule her for3rd stage ureteroscopy or stent removal. Thanks. [facility]01-[facility] Telephone encounter Note* Telephone Encounter - Ina Thompson CMA - 08/09/2024 4:[address] you Dr[address] Chen. [facility] for the pt to call central scheduling to get that CT scheduled. Also sent the pt a [employer] message. [facility]12-31-[facility] History and physical note* Tanya Perea, CARO-PRODUCTION SUPERVISOR - 07/23/2024 10:30 AM EST PRE-OPERATIVE HISTORY [...] was seen in the emergency room at [facility]. She was then transferred to [place]. In a review of the record, she [...] to urinate. Not In System Ref Prov gycdlpxj-jhey-SB-calcium &mins (THERAGRAN-M) 9 mg iron-400 mcg tablet [...] past Migraines 07/23/2024 6x year Septic shock ([facility]) 05/21/2024 Visual impairment glasses Past Surgical History: Procedure Laterality Date CYSTOSCOPY INSERTION STENT URETER Left 06/28/2024 Performed by Esme Chen MD at [facility] CYSTOSCOPY RETROGRADE PYELOGRAM Left 06/28/2024 Performed by Esme Chen MD at [facility] HYSTERECTOMY age 42's INGUINAL HERNIA REPAIR x2 pt unsure of date JOINT REPLACEMENT Bilateral pt unsure of when KIDNEY STONE SURGERY 2017 I had kidney stones blasted LASER HOLMIUM URETEROSCOPY RENAL STONES < OR=1CM; STONE BASKET EXTRACTION Left 06/28/2024 Performed by Esme Chen MD at [facility] REMOVAL TUBE NEPHROSTOMY Left 06/28/2024 Performed by Esme Chen MD at [facility] TONSILLECTOMY as a child UMBILICAL HERNIA REPAIR pt unsure of when URETERAL DILATION Left 06/28/2024 Performed by Esme Chen MD at [facility] Family History Problem Relation Age of [...] Social History Narrative 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 She was then transferred to [place]. In a review of the record, she [...] to urinate. Not In System Ref Prov zpxrqsqz-cvke-EA-calcium &mins (THERAGRAN-M) 9 mg iron-400 mcg tablet [...] past Migraines 07/23/2024 6x year Septic shock ([facility]) 05/21/2024 Visual impairment glasses Past Surgical History: Procedure Laterality Date CYSTOSCOPY INSERTION STENT URETER Left 06/28/2024 Performed by Esme Chen MD at [facility] CYSTOSCOPY RETROGRADE PYELOGRAM Left 06/28/2024 Performed by Esme Chen MD at [facility] HYSTERECTOMY age 42's INGUINAL HERNIA REPAIR x2 pt unsure of date JOINT REPLACEMENT Bilateral pt unsure of when KIDNEY STONE SURGERY 2017 I had kidney stones blasted LASER HOLMIUM URETEROSCOPY RENAL STONES < OR=1CM; STONE BASKET EXTRACTION Left 06/28/2024 Performed by Esme Chen MD at [facility] REMOVAL TUBE NEPHROSTOMY Left 06/28/2024 Performed by Esme Chen MD at [facility] TONSILLECTOMY as a child UMBILICAL HERNIA REPAIR pt unsure of when URETERAL DILATION Left 06/28/2024 Performed by Esme Chen MD at [facility] Family History Problem Relation Age of [...] Social History Narrative 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 Report to the Entrance B. Check in at the information desk the surgery. The waiting room located on the second floor. If you have any questions prior to surgery, please call Pre-Admission Clinic at [phone] between 7:30 am and 4:30 pm Monday through Monday. If you have questions the morning of surgery, please call the Pre-op Department at [phone]. Notify your SURGEON if you develop any [...] piercings ,hair extensions that contain metal, nail somali, make-up, and contact lens. You may brush [...] RIGHTS AND RESPONSIBILITIES As a patient at [facility], you have the right to: Receive medical care and be informed of who is taking care of you Be treated with dignity and respect Have a family member/specialty sales representative of choice and your physician notified of your admission Receive information and actively participate in decisions about your care and treatment Refuse care, treatment and services Decide who may provide your support and speak for you Access denominational and spiritual services Participate in ethical issues [...] of hospital charges and payment methods Patient/patient specialty sales representative responsibilities are to: Provide information [...] as promptly as possible documented in this [facility]12-07-2024 Miscellaneous Notes* Telephone Encounter - Esme Chen MD - 06/29/2024 10:36 PM EST Patient had left ureteroscopy with holmium laser lithotripsy of distal ureteral stone with me on 06/28/2024. Needs to be scheduled for cystoscopy with left ureteroscopy and holmium laser lithotripsy of renal stone with stent exchange, 1.5 hours, [facility] next available with me. Need CVAC or steerable access sheath (ClearPetra) available. Urine culture 1 week before. Thanks. documented in this [facility]12-07-2024 Telephone encounter Note* Telephone Encounter - Esme Chen MD - 06/29/2024 10:36 PM EST Patient had left ureteroscopy with holmium laser lithotripsy of distal ureteral stone with me on 06/28/2024. Needs to be scheduled for cystoscopy with left ureteroscopy and holmium laser lithotripsy of renal stone with stent exchange, 1.5 hours, [facility] next available with me. Need CVAC or steerable access sheath (ClearPetra) available. Urine culture 1 week before. Thanks. [facility]11-22-[facility] Instructions* Pre-Procedure Instructions - Regi Rivera RN - 06/14/2024 11:30 AM EST Your surgery/procedure is scheduled at [facility] on 06/28/24 at 1 pm Arrival Time 11 am [facility] Address: [address] [place] [address] Park in [address]1 Parking lot located on [facility]. Report to the Entrance B. Check in at the information desk the surgery. The waiting room located on the second floor. If you have any questions prior to surgery, please call Pre-Admission Clinic at [phone] between 7:30 am and 4:30 pm Monday through Monday. If you have questions the morning of surgery, please call the Pre-op Department at [phone]. Notify your SURGEON if you develop any [...] piercings ,hair extensions that contain metal, nail somali, make-up, and contact lens. You may brush [...] RIGHTS AND RESPONSIBILITIES As a patient at [facility], you have the right to: Receive medical care and be informed of who is taking care of you Be treated with dignity and respect Have a family member/specialty sales representative of choice and your physician notified of your admission Receive information and actively participate in decisions about your care and treatment Refuse care, treatment and services Decide who may provide your support and speak for you Access denominational and spiritual services Participate in ethical issues [...] of hospital charges and payment methods Patient/patient specialty sales representative responsibilities are to: Provide information about health status to facilitate care, treatment and services Follow the treatment, plan, keep appointments and speak up when you do not understand the plan Respect the rights of other patients and healthcare personnel Follow organizational rules and regulations that support quality care and a safe environment Fulfill financial obligations as promptly as possible [facility]11-22-2024 Miscellaneous Notes* Pre-Procedure Instructions - Regi Rivera RN - 06/14/2024 11:30 AM EST Your surgery/procedure is scheduled at [facility] on 06/28/24 at 1 pm Arrival Time 11 am [facility] Address: [address] [place] [address] Park in [address]1 Parking lot located on [facility]. Report to the Entrance B. Check in at the information desk the surgery. The waiting room located on the second floor. If you have any questions prior to surgery, please call Pre-Admission Clinic at [phone] between 7:30 am and 4:30 pm Monday through Monday. If you have questions the morning of surgery, please call the Pre-op Department at [phone]. Notify your SURGEON if you develop any [...] piercings ,hair extensions that contain metal, nail somali, make-up, and contact lens. You may brush [...] RIGHTS AND RESPONSIBILITIES As a patient at [facility], you have the right to: Receive medical care and be informed of who is taking care of you Be treated with dignity and respect Have a family member/specialty sales representative of choice and your physician notified of your admission Receive information and actively participate in decisions about your care and treatment Refuse care, treatment and services Decide who may provide your support and speak for you Access denominational and spiritual services Participate in ethical issues [...] of hospital charges and payment methods Patient/patient specialty sales representative responsibilities are to: Provide information [...] as promptly as possible documented in this encounterOhio [facility]11-07-2024 Evaluation note* Diagnosis Onset Date Resolution Status Admit Date Elevated liver function tests acuteNovember 2023 2:12pmSepsisacuteNovember 2023 2:12pm [facility] Work Phone: 1(705) 642-607611-04-2024 Miscellaneous Notes* Telephone Encounter - SENA Vidal - 05/27/2024 1:19 PM EST Audra from [facility] is calling because there are no orders for dressing changes, bag changes,etc. Are you the one to do this for the pt? * Telephone Encounter - Esme Chen MD - 05/27/2024 1:19 PM EST Dressing change weekly, flush with 10 mL sterile saline as needed for no drainage, no bag change for now. Thanks. * Telephone Encounter - ESNA Vidal - 05/27/2024 1:19 PM EST I tried calling Audra back, , and her vm is full. documented in this encounterOhio State [facility]ing Hospital11-04-2024 Telephone encounter Note* Telephone Encounter - SENA Vidal - 05/27/2024 1:19 PM EST Audra from [facility] is calling because there are no orders for dressing changes, bag changes,etc. Are you the one to do this for the pt? [email or web address] [id number] Telephone encounter Note* Telephone Encounter - Esme Chen MD - 05/27/2024 1:19 PM EST Dressing change weekly, flush with 10 mL sterile saline as needed for no drainage, no bag change for now. Thanks. [email or web address] Work Phone: [phone] Telephone encounter Note* Telephone Encounter - SENA Vidal - 05/27/2024 1:19 PM EST I tried calling Audra back, , and her vm is full. [facility] Tradier [id number] Progress note* Significant Event - Disha Mckeon RN - 05/26/2024 3:50 PM EST Leaving with to car currently [facility] Tradier [id number] Miscellaneous Notes* Significant Event - Disha Mckeon RN - 05/26/2024 3:50 PM EST Leaving with to car currently * Plan of Care - Disha Mckeon RN - 05/26/2024 2:47 PM EST Problem: Pain Goal: Patient goal is pain score less than 4, able to rest, and participant in treatment plan as appropriate Description: INTERVENTIONS: 1. Encourage patient or legal specialty sales representative to report early pain and [...] per policy 9. Teach patient or legal specialty sales representative interventions for comforting Outcome: Completed [...] at the bedside 7. Instruct patient/ patient specialty sales representative about use of safety devices 8. Include patient/ patient specialty sales representative in decisions related to safety [...] hygiene technique 7. Identify and instruct patient/patient specialty sales representative in use of appropriate isolation precautionsfor identified infection/symptoms 8. Provide and discuss with patient/patient specialty sales representative on educational MDRO sheet 9. Encourage and monitor nutritional status daily and consult textile machine maintenance mechanic if indicated 10. Implement neutropenic guidelines as needed 11. Review exposure to history of communicable disease and recent travel history on admission 12. Encourage annual influenza vaccine 13. Encourage pneumonia vaccine Outcome: Completed Note: Evaluation of progress towards goal: goal met Problem: Knowledge Deficit Goal: Patient/patient specialty sales representative demonstrates understanding of disease process, [...] supplement as ordered 13. Collaborate with clinical textile machine maintenance mechanic 14. Include patient/ patient's specialty sales representative in decisions related to nutrition [...] Moderate - High Risk Fall Score Description: [place] Fall Score of =/> 25 or indicated by [facility] Assessment Goal: Patient should be free from fall Description: Interventions: 1. [place] to environment 2. Hourly rounds addressing the [...] non-skid footwear 11. Teach patient and patient specialty sales representative to maintain environment for safety [...] (cane, walker) within reach 19. Request patient specialty sales representative bring adaptive equipment/mobility aids from home or obtain and provide as needed 20. Consult pharmacy regarding effects of med's affecting mobility, cognition, and alternatives 21. Obtain physician order for PT if risk factors associated with mobility are present 22. Obtain physician order for OT as appropriate 23. Utilize diversional activities 24. Educate patient and patient specialty sales representative how to maintain a safe environment during visitationtimes (notify nurse prior to leaving bedside) 25. Consider appropriateness of medical or non-medical social consultant 26. Set up voiding schedule as appropriate (every 2 hours) Outcome: Completed Note: Evaluation of progress towards goal: goal met * Discharge Planning Note - Melissa Jones - 05/26/2024 2:11 PM EST DISCHARGE PLANNING NOTE CRF sent to [address]- [place] (P# ; F# ); [place] (P#[phone] ; F# [phone]) use [facility] office and [facility], [facility] [place] [place], [place] [facility] - (P# ; F# ) * Discharge Planning Note - Sakina Wooten RN - 05/26/2024 1:59 PM EST DISCHARGE PLANNING NOTE Patient is ready for discharge. Tasked RC to send CRF to [address] and [facility]. CN contacted [facility] to confirm patient is discharging today, spoke with Jacey. They will reachout to patient to arrange delivery of medication/supplies. [address] is scheduled for a SOC tomorrow between 12-pm. RN updated. - Sakina Wooten RN 05/26/24 2:01 PM * Plan of Care - Delilah Becerra RN - 05/26/2024 2:29 AM EST Problem: Pain Goal: Patient goal is pain score less than 4, able to rest, and participant in treatment plan as appropriate Description: INTERVENTIONS: 1. Encourage patient or legal specialty sales representative to report early pain and [...] per policy 9. Teach patient or legal specialty sales representative interventions for comforting Outcome: Progressing [...] at the bedside 7. Instruct patient/ patient specialty sales representative about use of safety devices 8. Include patient/ patient specialty sales representative in decisions related to safety [...] hygiene technique 7. Identify and instruct patient/patient specialty sales representative in use of appropriate isolation precautionsfor identified infection/symptoms 8. Provide and discuss with patient/patient specialty sales representative on educational MDRO sheet 9. Encourage and monitor nutritional status daily and consult textile machine maintenance mechanic if indicated 10. Implement neutropenic guidelines as [...] cold sores. Problem: Knowledge Deficit Goal: Patient/patient specialty sales representative demonstrates understanding of disease process, [...] supplement as ordered 13. Collaborate with clinical textile machine maintenance mechanic 14. Include patient/ patient's specialty sales representative in decisions related to nutrition [...] be free from fall Description: Interventions: 1. [place] to environment 2. Hourly rounds addressing the [...] non-skid footwear 11. Teach patient and patient specialty sales representative to maintain environment for safety [...] (cane, walker) within reach 19. Request patient specialty sales representative bring adaptive equipment/mobility aids from home or obtain and provide as needed 20. Consult pharmacy regarding effects of med's affecting mobility, cognition, and alternatives 21. Obtain physician order for PT if risk factors associated with mobility are present 22. Obtain physician order for OT as appropriate 23. Utilize diversional activities 24. Educate patient and patient specialty sales representative how to maintain a safe environment during visitationtimes (notify nurse prior to leaving bedside) 25. Consider appropriateness of medical or non-medical social consultant 26. Set up voiding schedule as appropriate [...] Description: INTERVENTIONS: 1. Encourage patient or legal specialty sales representative to report early pain and [...] per policy 9. Teach patient or legal specialty sales representative interventions for comforting Outcome: Progressing [...] at the bedside 7. Instruct patient/ patient specialty sales representative about use of safety devices 8. Include patient/ patient specialty sales representative in decisions related to safety [...] hygiene technique 7. Identify and instruct patient/patient specialty sales representative in use of appropriate isolation precautionsfor identified infection/symptoms 8. Provide and discuss with patient/patient specialty sales representative on educational MDRO sheet 9. Encourage and monitor nutritional status daily and consult textile machine maintenance mechanic if indicated 10. Implement neutropenic guidelines as needed 11. Review exposure to history of communicable disease and recent travel history on admission 12. Encourage annual influenza vaccine 13. Encourage pneumonia vaccine Outcome: Progressing Note: Evaluation of progress towards goal: Infection prevention measures put into place. Will continue to monitor for signs and symptoms of infection. Problem: Knowledge Deficit Goal: Patient/patient specialty sales representative demonstrates understanding of disease process, [...] being looked over by charge nurse. * PT/OT/KNIFE CHANGER - Cristino Hugo, PT - 05/24/2024 2:50 [...] Medical History: Diagnosis Date Migraines Septic shock ([facility]) 05/21/2024 Past Surgical History: Procedure Laterality [...] Equipment: gait belt, RW, percutaneous drain, guevara Telemetry/Electric Meter Setter: Yes Oxygen Used: room air Other: Fall [...] Goal: Patient will perform transfers with Modified [place] Dates: Start: 05/24/24 Expected End: 06/22/24 Description: Goal Description: Disciplines: PT Physical Therapy Care Plan (Resolved) There are no resolved problems. Principal Problem: Septic shock (CMS-HCC) * PT/OT/KNIFE CHANGER - Melissa Andrade OTR/Alicia - 05/24/2024 2:35 [...] decline resulting from admit as transfer from [place] on 05/21/24 with fever, chills and general weakness. 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 Prior Function Lives With: Spouse (retired [...] Patient will perform home management with Modified [place] Dates: Start: 05/24/24 Expected End: 06/14/24 Description: [...] no resolved problems. Principal Problem: Septic shock ([facility]) * Discharge Planning Note - KALINA [...] work faxed prescription- wait insurance coverage and [facility]- wait acceptance. Wait PT/OT evaluations and recommendations. CN will continue to follow and is available should any further needs arise. - KALINA SANON 05/24/24 12:20 PM [facility] denied referral. Social work sent referral to [facility] and [facility]. [facility] is not sure if they are available to start services until Monday as they will need insurance approval. Waiting [facility] to inform of [...] Referral sent to [facility] [facility] - (P# ; F# ); [facility] [place] [facility] - (P# ; F# ) * Plan of Care - Jovany Wynne RN - 05/23/2024 8:52 AM EDT Problem: Pain Goal: Patient goal is pain score less than 4, able to rest, and participant in treatment plan as appropriate Description: INTERVENTIONS: 1. Encourage patient or legal specialty sales representative to report early pain and [...] per policy 9. Teach patient or legal specialty sales representative interventions for comforting Outcome: Progressing [...] at the bedside 7. Instruct patient/ patient specialty sales representative about use of safety devices 8. Include patient/ patient specialty sales representative in decisions related to safety [...] hygiene technique 7. Identify and instruct patient/patient specialty sales representative in use of appropriate isolation precautionsfor identified infection/symptoms 8. Provide and discuss with patient/patient specialty sales representative on educational MDRO sheet 9. Encourage and monitor nutritional status daily and consult textile machine maintenance mechanic if indicated 10. Implement neutropenic guidelines as [...] infection/ sepsis. Problem: Knowledge Deficit Goal: Patient/patient specialty sales representative demonstrates understanding of disease process, [...] Score of =/> 25 or indicated by [facility] Assessment Goal: Patient should be free from fall Description: Interventions: 1. [place] to environment 2. Hourly rounds addressing the [...] non-skid footwear 11. Teach patient and patient specialty sales representative to maintain environment for safety [...] (cane, walker) within reach 19. Request patient specialty sales representative bring adaptive equipment/mobility aids from home or obtain and provide as needed 20. Consult pharmacy regarding effects of med's affecting mobility, cognition, and alternatives 21. Obtain physician order for PT if risk factors associated with mobility are present 22. Obtain physician order for OT as appropriate 23. Utilize diversional activities 24. Educate patient and patient specialty sales representative how to maintain a safe environment during visitationtimes (notify nurse prior to leaving bedside) 25. Consider appropriateness of medical or non-medical social consultant 26. Set up voiding schedule as appropriate [...] Description: INTERVENTIONS: 1. Encourage patient or legal specialty sales representative to report early pain and [...] per policy 9. Teach patient or legal specialty sales representative interventions for comforting Outcome: Progressing [...] at the bedside 7. Instruct patient/ patient specialty sales representative about use of safety devices 8. Include patient/ patient specialty sales representative in decisions related to safety [...] Description: INTERVENTIONS: 1. Encourage patient or legal specialty sales representative to report early pain and [...] per policy 9. Teach patient or legal specialty sales representative interventions for comforting 05/22/2024 1633 [...] at the bedside 7. Instruct patient/ patient specialty sales representative about use of safety devices 8. Include patient/ patient specialty sales representative in decisions related to safety [...] hygiene technique 7. Identify and instruct patient/patient specialty sales representative in use of appropriate isolation precautionsfor identified infection/symptoms 8. Provide and discuss with patient/patient specialty sales representative on educational MDRO sheet 9. Encourage and monitor nutritional status daily and consult textile machine maintenance mechanic if indicated 10. Implement neutropenic guidelines as [...] Score of =/> 25 or indicated by [facility] Assessment Goal: Patient should be free from fall Description: Interventions: 1. [place] to environment 2. Hourly rounds addressing the [...] non-skid footwear 11. Teach patient and patient specialty sales representative to maintain environment for safety [...] (cane, walker) within reach 19. Request patient specialty sales representative bring adaptive equipment/mobility aids from home or obtain and provide as needed 20. Consult pharmacy regarding effects of med's affecting mobility, cognition, and alternatives 21. Obtain physician order for PT if risk factors associated with mobility are present 22. Obtain physician order for OT as appropriate 23. Utilize diversional activities 24. Educate patient and patient specialty sales representative how to maintain a safe environment during visitationtimes (notify nurse prior to leaving bedside) 25. Consider appropriateness of medical or non-medical social consultant 26. Set up voiding schedule as appropriate [...] 05/22/2024 2:06 PM EDT DISCHARGE PLANNING NOTE Operational Assistant met with patient, introduced self, and explained role. Patient is alert and oriented, sitting in lazy boy chair, cooperative. Patient educated on safe discharge plan. Pt admitted 05/21/2024 with Septic [facility] [A41.9, R65.21] Elevated troponin [R79.89] per chart review. Consults: Urology Discharge Barriers per Daily Transition Rounds and chart review: clears, IV ATB, IV Pepcid, new neph tube, guevara Past Medical History: Diagnosis Date Migraines Septic shock ([facility]) 05/21/2024 Prior to admission patient [...] PCP: OLMAN SHOEMAKER MD Pharmacy:[facility] [place] PCP and pharmacy confirmed with patient. OLMAN [...] 60 Thank you, Angella PIERCE, RN Clinical Global Climate Change Researcher Clinical Documentation Integrity Email: [email or web address] Normal Hours of availability 7:00am to 3:30pm, [...] ICU team to transfer primary service to [facility]. I have received a verbalhand off from the ICU team. [facility] will assume care as primary team, once [...] tachypneic?. Thank you, Angella PIERCE, RN Clinical Global Climate Change Researcher Clinical Documentation Integrity Email: [email or web address] Normal Hours of availability 7:00am to 3:30pm, [...] Description: INTERVENTIONS: 1. Encourage patient or legal specialty sales representative to report early pain and [...] per policy 9. Teach patient or legal specialty sales representative interventions for comforting Outcome: Progressing [...] hygiene technique 7. Identify and instruct patient/patient specialty sales representative in use of appropriate isolation precautionsfor identified infection/symptoms 8. Provide and discuss with patient/patient specialty sales representative on educational MDRO sheet 9. Encourage and monitor nutritional status daily and consult textile machine maintenance mechanic if indicated 10. Implement neutropenic guidelines as [...] availablein the immediate area. [facility] History of Present illness Narrative* Vaishali [...] Recommendations: Reportedly CT of the abdomen from [facility] with left-sided stone with significant hydronephrosis (awaiting report) Status post left percutaneous nephrostomy tube placement Blood cultures from [facility] May 19, 2024, reportedly not yet finalized, preliminary with E coli and Enterobacterale Urine culture from [facility] on May 21, 2024 finalized with no [...] Component Value Units Date/Time Blood culture #1 [[id number]] Collected: 05/23/24 1020 Specimen: Blood Updated: 05/26/24937 Specimen Notes SUBOPTIMAL VOLUME OF BLOOD COLLECTED, RESULTS MAY BE AFFECTED. Culture NO GROWTH 3 DAYS Blood culture #2 [[id number]] Collected: 05/23/24 1020 Specimen: Blood Updated: 05/26/24 0939 Specimen Notes SUBOPTIMAL VOLUME OF BLOOD COLLECTED, RESULTS MAY BE AFFECTED. Culture NO GROWTH 3 DAYS Urine culture [[id number]] Collected: 05/21/24 1525 Specimen: Urine from Guevara Catheter Specimen Updated: 05/22/24 1420 Culture <10,000 ORGANISMS/ML NORMAL URO GENITAL ALANNAH Blood culture #2 [[id number]] (Abnormal) Collected: 05/21/24 1523 Specimen: Blood Updated: 05/24/24 0705 Culture ESCHERICHIA COLI FOR SUSCEPTIBILITY, SEE PREVIOUS REPORT. Blood culture #1 [[id number]] (Abnormal) (Susceptibility) Collected: 05/21/24 1520 Specimen: Blood [...] Q8H OSVALDO meloxicam, 15 mg, oral, Daily eaynxlhd-lyyo-VU-calcium &mins, 1 tablet, oral, Daily Consult PICC nurse - Midline, , , Once AND sodium chloride, 10 mL, intravenous, Q12H AND sodium chloride, 10 mL, intravenous, PRN AND sodium chloride, 20 mL, intravenous, PRN valACYclovir, 500 mg, oral, BID Thank you for allowing us to participate in the care of this patient. Please call with questions. Vaishali Alberts APRN, PRODUCTION SUPERVISOR [phone] This note was completed using a voice pbx technician system. Every effort was made to ensure accuracy. However, inadvertent computerized pbx technician errors may be present. Vaishali Alberts APRN-PRODUCTION SUPERVISOR 05/26/24 4406 * Tabby Iqbal MD - 05/25/2024 1:10 PM EDT [facility] PROGRESS NOTE 05/25/2024 [...] was made toensure accuracy; however, inadvertent computerized pbx technician errors may be present. Electronically signed by: TABBY IQBAL MD 05/25/2024 1:11 PM * Tammy Boyd APRN-PRODUCTION SUPERVISOR - 05/25/2024 8:30 AM EDT Images from [...] Recommendations: Reportedly CT of the abdomen from [facility] with left-sided stone with significant hydronephrosis (awaiting report) Status post left percutaneous nephrostomy tube placement Blood cultures from [facility] May 19, 2024, reportedly not yet finalized, preliminary with E coli and Enterobacterals Urine culture from [facility] on May 21, 2024 finalized with no [...] Component Value Units Date/Time Blood culture #1 [[id number]] Collected: 05/23/24 1020 Specimen: Blood Updated: 05/25/24 1038 Specimen Notes SUBOPTIMAL VOLUME OF BLOOD COLLECTED, RESULTS MAY BE AFFECTED. Culture NO GROWTH 2 DAYS Blood culture #2 [[id number]] Collected: 05/23/24 1020 Specimen: Blood Updated: 05/25/24 1039 Specimen Notes SUBOPTIMAL VOLUME OF BLOOD COLLECTED, RESULTS MAY BE AFFECTED. Culture NO GROWTH 2 DAYS Urine culture [[id number]] Collected: 05/21/24 1525 Specimen: Urine from Guevara Catheter Specimen Updated: 05/22/24 1420 Culture <10,000 ORGANISMS/ML NORMAL URO GENITAL ALANNAH Blood culture #2 [[id number]] (Abnormal) Collected: 05/21/24 1523 Specimen: Blood Updated: 05/24/24 0705 Culture ESCHERICHIA COLI FOR SUSCEPTIBILITY, SEE PREVIOUS REPORT. Blood culture #1 [[id number]] (Abnormal) (Susceptibility) Collected: 05/21/24 1520 Specimen: Blood [...] Q8H OSVALDO meloxicam, 15 mg, oral, Daily gsfpgarq-jfnv-UY-calcium &mins, 1 tablet, oral, Daily Consult PICC [...] after 1700, and for urgent matters call [phone], if no answer call [phone] This note was completed using a voice pbx technician system. Every effort was made to ensure accuracy. However, inadvertent computerized pbx technician errors may be present. STEPHEN Mills 05/25/24 1508 STEPHEN Mills 05/25/24 1901 * Lesvia Andrews MD - 05/24/2024 2:10 PM EDT 05/24/2024 Patient Name: Sharri Murillo : 1955 Problem List: Principal Problem: Septic shock ([facility]) Assessment and Plan: Septic shock [...] Component Value Units Date/Time Blood culture #1 [[id number]] Collected: 05/23/24 1020 Specimen: Blood Updated: 05/24/24 1038 Specimen Notes SUBOPTIMAL VOLUME OF BLOOD COLLECTED, RESULTS MAY BE AFFECTED. Culture NO GROWTH 1 DAY Blood culture #2 [[id number]] Collected: 05/23/24 1020 Specimen: Blood Updated: 05/24/24 1039 Specimen Notes SUBOPTIMAL VOLUME OF BLOOD COLLECTED, RESULTS MAY BE AFFECTED. Culture NO GROWTH 1 DAY Urine culture [[id number]] Collected: 05/21/24 1525 Specimen: Urine from Guevara Catheter Specimen Updated: 05/22/24 1420 Culture <10,000 ORGANISMS/ML NORMAL URO GENITAL ALANNAH Blood culture #2 [[id number]] (Abnormal) Collected: 05/21/24 1523 Specimen: Blood Updated: 05/24/24 0705 Culture ESCHERICHIA COLI FOR SUSCEPTIBILITY, SEE PREVIOUS REPORT. Blood culture #1 [[id number]] (Abnormal) (Susceptibility) Collected: 05/21/24 1520 Specimen: Blood [...] was then dilated to accommodate a 10 Stateless nephrostomy tube. The catheter was secured with a single 0 Prolene suture. Dressing applied. Patient tolerated all procedures well and there were no complications. FINDINGS: Severe left hydronephrosis, fluoroscopic images demonstrated appropriate positioning of nephrostomy tube within the collecting system IMPRESSION: Successful image guided placement of left 10 Stateless percutaneous nephrostomy tube PLAN: Maintained to gravity [...] Q8H OSVALDO meloxicam, 15 mg, oral, Daily zvzhlzvp-uuen-HY-calcium &mins, 1 tablet, oral, Daily Thank you for allowing us to participate in the care of this patient. Please call with questions. This note was completed using a voice pbx technician system. Every effort was made to ensure accuracy. However, inadvertent computerized pbx technician errors may be present. BROOKLYNN Morel APRNP-C [phone] STEPHEN Avilez 05/24/24 1140 IMaribel MD, personally performed pvhx-yk-trpq diagnostic evaluation on this patient I reviewed and performed all the [place] component of the patient visit I reviewed FATIMAH history, exam and MDM - Maribel Zepeda MD 05/24/24 11:53 AM * MACKENZIE Tariq - 05/24/2024 11:19 AM EDT BRIEF NUTRITION NOTE NUTRITION ASSESSMENT: Reason to be seen: nutrition screen for poor po intake FOUNDRY HAND Patient History: Brief Clinical Summary: Presented with [...] Body Weight: see above for wt trends Harold Body Weight: 64kg Percent Harold Body Weight: 234% Weight Changes: down 2.9kg [...] of the ICU per critical Care [facility] Nurse Practitioner [facility] Subjective: NOIs. Examined while resting in the chair. present at bedside. Patient states she is havingno pain and no shortness of breath. Denies nausea vomiting. Endorses good appetite. No fevers reported overnight. Hospital Problem: Principal Problem: Septic shock ([facility]) OBJECTIVE: General Appearance: Comfortable, in [...] Procedure Component Value Units Date/Time Urine culture [[id number]] Collected: 05/21/24 152 Specimen: Urine from Guevara Catheter Specimen Updated: 05/22/24 1420 Culture <10,000 ORGANISMS/ML NORMAL URO GENITAL ALANNAH Blood culture #2 [[id number]] Collected: 05/21/24 1523 Specimen: Blood Updated: 05/22/24 0609 Culture GRAM NEGATIVE RODS CULTURE IN PROGRESS Blood culture #1 [[id number]] (Abnormal) Collected: 05/21/24 1520 Specimen: Blood Updated: 05/23/24 0918 Culture ESCHERICHIA COLI CULTURE IN PROGRESS Escherichia coli detected by PCR. No resistance genes detected by PCR. Results from last 7 days Lab Units 05/23/24 0258 05/22/24 0200 05/21/24 1320 05/21/24 1310 BEDSIDE GLUCOSE mg/dL -- -- 114* -- GLUCOSE mg/dL 93 116* -- 110* Microbiology Results Procedure Component Value Units Date/Time Urine culture [[id number]] Collected: 05/21/24 1525 Specimen: Urine from Guevara Catheter Specimen Updated: 05/22/24 1420 Culture <10,000 ORGANISMS/ML NORMAL URO GENITAL ALANNAH Blood culture #2 [[id number]] Collected: 05/21/24 1523 Specimen: Blood Updated: 05/22/24 0609 Culture GRAM NEGATIVE RODS CULTURE IN PROGRESS Blood culture #1 [[id number]] (Abnormal) Collected: 05/21/24 1520 Specimen: Blood Updated: [...] and Sleep Pulmonary / Critical Care Pager: [phone] Office : [phone] Fax : [phone] This note was created with the assistance [...] - 68 y.o. - 1955 N - [id number] [facility] # - [id number] Date of Admission - 05/21/2024 12:52 PM [...] Procedure Component Value Units Date/Time Urine culture [[id number]] Collected: 05/21/241802 Specimen: Urine Updated: 05/21/24 180 Blood culture #2 [[id number]] Collected: 05/21/24 1523 Specimen: Blood Updated: 05/22/24 0609 Culture GRAM NEGATIVE RODS CULTURE IN PROGRESS Blood culture #1 [[id number]] (Abnormal) Collected: 05/21/24 152 Specimen: Blood Updated: 05/22/24 0608 Culture GRAM NEGATIVE RODS CULTURE IN PROGRESS Escherichia coli detected by PCR. No resistance genes detected by PCR. Lab Results Component Value Date INR 1.2 (H) 05/21/2024 PROTIME 14.1 (H) 05/21/2024 Radiology (See actual reports for details) Ryan Benitez MD [facility] Pulmonary and Sleep Pulmonary / Critical Care Pager: [phone] Office : [phone] Fax : [phone] 48:31 AM * Lance Bell [facility] - 05/21/2024 3:24 PM EDT [facility] Department of Pharmacy Pharmacy-Physician Communication Pt [...] mg/dL (H)). Famotidine regimen was renally-adjusted per [facility] policy Thank you for your consideration. If we can offer more assistance, please fee free to call us at x [phone]. Lance Bell PharmD, [facility] * Lance Bell RP - 05/21/2024 3:20 PM EDT [facility] Pharmacy-Physician Communication Pt name: Sharri [...] 1.5 mg/dL (H)). Zosyn was dosed per [facility] policy Thank you for your consideration. If we can offer more assistance, please fee free to call us at [phone]. Lance Bell PharmD, [facility] documented in this encounterOhio State [facility]ing [facility]11-03-[facility]24 Plan of care note * Plan of Care - Disha Mckeon RN - 05/26/2024 2:47 PM EST Problem: Pain Goal: Patient goal is pain score less than 4, able to rest, and participant in treatment plan as appropriate Description: INTERVENTIONS: 1. Encourage patient or legal specialty sales representative to report early pain and [...] per policy 9. Teach patient or legal specialty sales representative interventions for comforting Outcome: Completed [...] at the bedside 7. Instruct patient/ patient specialty sales representative about use of safety devices 8. Include patient/ patient specialty sales representative in decisions related to safety [...] hygiene technique 7. Identify and instruct patient/patient specialty sales representative in use of appropriate isolation precautionsfor identified infection/symptoms 8. Provide and discuss with patient/patient specialty sales representative on educational MDRO sheet 9. Encourage and monitor nutritional status daily and consult textile machine maintenance mechanic if indicated 10. Implement neutropenic guidelines as needed 11. Review exposure to history of communicable disease and recent travel history on admission 12. Encourage annual influenza vaccine 13. Encourage pneumonia vaccine Outcome: Completed Note: Evaluation of progress towards goal: goal met Problem: Knowledge Deficit Goal: Patient/patient specialty sales representative demonstrates understanding of disease process, [...] supplement as ordered 13. Collaborate with clinical textile machine maintenance mechanic 14. Include patient/ patient's specialty sales representative in decisions related to nutrition [...] Score of =/> 25 or indicated by [facility] Assessment Goal: Patient should be free from fall Description: Interventions: 1. [place] to environment 2. Hourly rounds addressing the [...] non-skid footwear 11. Teach patient and patient specialty sales representative to maintain environment for safety [...] (cane, walker) within reach 19. Request patient specialty sales representative bring adaptive equipment/mobility aids from home or obtain and provide as needed 20. Consult pharmacy regarding effects of med's affecting mobility, cognition, and alternatives 21. Obtain physician order for PT if risk factors associated with mobility are present 22. Obtain physician order for OT as appropriate 23. Utilize diversional activities 24. Educate patient and patient specialty sales representative how to maintain a safe environment during visitationtimes (notify nurse prior to leaving bedside) 25. Consider appropriateness of medical or non-medical social consultant 26. Set up voiding schedule as appropriate (every 2 hours) Outcome: Completed Note: Evaluation of progress towards goal: goal met [facility]11-03-2024 Progress note* Discharge Planning Note - Melissa Jones - 05/26/2024 2:11 PM EST DISCHARGE PLANNING NOTE CRF sent to [address]- [place] (P# ; F# ); [place] (P#[phone] ; F# [phone]) use [place] main office and [facility], An [facility]- [place], [place] formerly [facility] - (P# ; F# ) [facility]11-03-2024 Progress note* Discharge Planning Note - Sakina Wooten RN - 05/26/2024 1:59 PM EST DISCHARGE PLANNING NOTE Patient is ready for discharge. Tasked [facility] to send CRF to [id number] and [facility]. CN contacted [facility] to confirm patient is discharging today, spoke with Jacey. They will reachout to patient to arrange delivery of medication/supplies. [id number] is scheduled for a SOC tomorrow between 12-pm. RN updated. - Sakina Wooten RN 05/26/24 2:01 PM [facility]-03[facility] Hospital course Narrative* Tabby Iqbal MD - 05/26/2024 1:22 PM EST Images from the original note were not included. DISCHARGE NOTE Demographics: Patient Name: Sharri Murillo : 1955 DATE OF ADMISSION: 05/21/2024 DATE OF DISCHARGE: 05/26/2024 DISCHARGE DIAGNOSES: Principal Problem: Septic shock ([facility]) CONSULTANTS: Consulting Providers Provider Service [...] LFT weekly while on antibiotic, faxed to [place] at [phone]. IV flushes as per protocol gabapentin 100 [...] 15 mg tablet Commonly known as: MOBIC ykmtwkni-lgvb-HE-calcium &mins 9 mg iron-400 mcg tablet Commonly known as: THERAGRAN-M MYRBETRIQ 50 mg tablet extended release 24 hr Generic drug: mirabegron nitrofurantoin 100 mg capsule Commonly known as: MACRODANTIN SUMAtriptan 25 mg tablet Commonly known as: IMITREX Where to Get Your Medications These medications were sent to [facility]/pharmacy #[id number] - [address] AT [place] [address] gabapentin 100 mg capsule valACYclovir 500 mg [...] was then dilated to accommodate a 10 Stateless nephrostomy tube. The catheter was secured with a single 0 Prolene suture. Dressing applied. Patient tolerated all procedures well and there were no complications. FINDINGS: Severe left hydron ephrosis, fluoroscopic images demonstrated appropriate positioning of nephrostomy tube within the collecting system IMPRESSION: Successful image guided placement of left 10 Stateless percutaneous nephrostomy tube PLAN: Maintained to gravity [...] Follow up: Esme Chen MD [address] [facility] [address] Follow up Follow with your original urologist to schedule stone treatment, if you desire you may schedule your procedure with [facility] if your urologist is not able to complete the procedure Olman Shoemaker MD [facility] [address] Follow up in 1 week(s) For most accurate medication list, please review the discharge medication summary. 40 minutes were spent on discharging this patient. documented in this encounterOhio State Harding Hospital11-03-2024 Plan of care note * Plan of Care - Delilah Becerra RN - 05/26/2024 2:29 AM EST Problem: Pain Goal: Patient goal is pain score less than 4, able to rest, and participant in treatment plan as appropriate Description: INTERVENTIONS: 1. Encourage patient or legal specialty sales representative to report early pain and [...] per policy 9. Teach patient or legal specialty sales representative interventions for comforting Outcome: Progressing [...] at the bedside 7. Instruct patient/ patient specialty sales representative about use of safety devices 8. Include patient/ patient specialty sales representative in decisions related to safety [...] hygiene technique 7. Identify and instruct patient/patient specialty sales representative in use of appropriate isolation precautionsfor identified infection/symptoms 8. Provide and discuss with patient/patient specialty sales representative on educational MDRO sheet 9. Encourage and monitor nutritional status daily and consult textile machine maintenance mechanic if indicated 10. Implement neutropenic guidelines as [...] cold sores. Problem: Knowledge Deficit Goal: Patient/patient specialty sales representative demonstrates understanding of disease process, [...] supplement as ordered 13. Collaborate with clinical textile machine maintenance mechanic 14. Include patient/ patient's specialty sales representative in decisions related to nutrition [...] be free from fall Description: Interventions: 1. [place] to environment 2. Hourly rounds addressing the [...] non-skid footwear 11. Teach patient and patient specialty sales representative to maintain environment for safety [...] (cane, walker) within reach 19. Request patient specialty sales representative bring adaptive equipment/mobility aids from home or obtain and provide as needed 20. Consult pharmacy regarding effects of med's affecting mobility, cognition, and alternatives 21. Obtain physician order for PT if risk factors associated with mobility are present 22. Obtain physician order for OT as appropriate 23. Utilize diversional activities 24. Educate patient and patient specialty sales representative how to maintain a safe environment during visitationtimes (notify nurse prior to leaving bedside) 25. Consider appropriateness of medical or non-medical social consultant 26. Set up voiding schedule as appropriate (every 2 hours) Outcome: Progressing Note: Evaluation of progress towards goal: Pt free from fall with hourly rounding continued & maintained. 4 Ps addressed. [facility]11-02-2024 Plan of care note* Plan of Care - Kimberly Sauceda RN - 05/25/2024 4:22 AM EDT Problem: Pain Goal: Patient goal is pain score less than 4, able to rest, and participant in treatment plan as appropriate Description: INTERVENTIONS: 1. Encourage patient or legal specialty sales representative to report early pain and [...] per policy 9. Teach patient or legal specialty sales representative interventions for comforting Outcome: Progressing [...] at the bedside 7. Instruct patient/ patient specialty sales representative about use of safety devices 8. Include patient/ patient specialty sales representative in decisions related to safety [...] hygiene technique 7. Identify and instruct patient/patient specialty sales representative in use of appropriate isolation precautionsfor identified infection/symptoms 8. Provide and discuss with patient/patient specialty sales representative on educational MDRO sheet 9. Encourage and monitor nutritional status daily and consult textile machine maintenance mechanic if indicated 10. Implement neutropenic guidelines as needed 11. Review exposure to history of communicable disease and recent travel history on admission 12. Encourage annual influenza vaccine 13. Encourage pneumonia vaccine Outcome: Progressing Note: Evaluation of progress towards goal: Infection prevention measures put into place. Will continue to monitor for signs and symptoms of infection. Problem: Knowledge Deficit Goal: Patient/patient specialty sales representative demonstrates understanding of disease process, [...] plans being looked over by charge nurse. [facility]11-01-[facility] Progress note* PT/OT/KNIFE CHANGER - Cristino Hugo, PT - 05/24/2024 2:50 [...] Equipment: gait belt, RW, percutaneous drain, guevara Telemetry/Electric Meter Setter: Yes Oxygen Used: room air Other: Fall [...] Goal: Patient will perform transfers with Modified [place] Dates: Start: 05/24/24 Expected End: 06/22/24 Description: Goal Description: Disciplines: PT Physical Therapy Care Plan (Resolved) There are no resolved problems. Principal Problem: Septic shock ([facility]) [facility]-01-[facility] Progress note* PT/OT/KNIFE CHANGER - HILLARY Art - 05/24/2024 2:35 PM [...] decline resulting from admit as transfer from [place] on 05/21/24 with fever, chills and general weakness. 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 Prior Function Lives With: Spouse (retired [...] of RW in standing. Gait Pattern: Decreased clmeente, Forward trunk Gait Assistance: Standby assist Assistive [...] Patient will perform home management with Modified [place] Dates: Start: 05/24/24 Expected End: 06/14/24 Description: [...] no resolved problems. Principal Problem: Septic shock ([facility]) [facility]11-01-2024 Progress note* Discharge Planning Note - KALINA [...] work faxed prescription- wait insurance coverage and [facility]- wait acceptance. Wait PT/OT evaluations and recommendations. CN will continue to follow and is available should any further needs arise. - KALINA SANON 05/24/24 12:20 PM [facility] denied referral. Social work sent referral to [facility]. [facility] is not sure if [...] Monday. - KALINA SANON 05/24/24 4:06 PM [facility]11-01-2024 Progress note* Discharge Planning Note - Giuliana Rodriguez - 05/24/2024 11:52 AM EDT DISCHARGE PLANNING NOTE Referral sent to [facility], [facility]- [place], [place] formerly [facility] - (P# ; F# ); [facility] [place] [place] [facility] - (P# ; F# ) [facility]10-31-2024 Miscellaneous Notes* Telephone Encounter - Esme Chen MD - 05/23/2024 11:02 AM EDT Please schedule patient for cystoscopy with left ureteroscopy, holmium laser lithotripsy with stentplacement, 1.5 hours, [facility] in 4-5 weeks with ga with 1 day preadmission for IV antibiotics as well as medicine consultation. Needs urine culture 1 week prior as well. Thank you. Currently admitted to [facility]. documented in this encounterOhio State [facility]ing Hospital10-31-2024 Telephone encounter Note* Telephone Encounter - Esme Chen MD - 05/23/2024 11:02 AM EDT Please schedule patient for cystoscopy with left ureteroscopy, holmium laser lithotripsy with stentplacement, 1.5 hours, [facility] in 4-5 weeks with ga with 1 day preadmission for IV antibiotics as well as medicine consultation. Needs urine culture 1 week prior as well. Thank you. Currently admitted [facility]. [facility] Phone: [phone] Consult note* Maribel Zepeda MD - 05/23/2024 9:00 AM EDTAssociated Order(s): IP CONSULT TO INFECTIOUS DISEASES Images from the original note were not included. [facility] Infectious Diseases - Initial Consult Note [...] Medical History: Diagnosis Date Migraines Septic shock ([facility]) 05/21/2024 Past Surgical History: Past Surgical History: Procedure Laterality Date INGUINAL HERNIA REPAIR x2 KNEE ARTHROPLASTY Bilateral UMBILICAL HERNIA REPAIR Medications: cefTRIAXone (ROCEPHIN) IV, 2,000 mg, intravenous, Q24H gabapentin, 100 mg, oral, TID heparin (porcine), 5,000 Units, subcutaneous, Q8H [facility] Social History: Social History Socioeconomic History [...] Component Value Units Date/Time Blood culture #1 [[id number]] Resulted: 05/23/24 1021 Specimen: Blood, Peripheral Draw Updated: 05/23/24 1021 Blood culture #2 [[id number]] Resulted: 05/23/24 1021 Specimen: Blood, Peripheral Draw Updated: 05/23/24 1021 Urine culture [[id number]] Collected: 05/21/24 1525 Specimen: Urine from Guevara Catheter Specimen Updated: 05/22/24 1420 Culture <10,000 ORGANISMS/ML NORMAL URO GENITAL ALANNAH Blood culture #2 [[id number]] Collected: 05/21/24 1523 Specimen: Blood Updated: 05/22/24 0609 Culture GRAM NEGATIVE RODS CULTURE IN PROGRESS Blood culture #1 [[id number]] (Abnormal) Collected: 05/21/24 1520 Specimen: Blood Updated: [...] was then dilated to accommodate a 10 Stateless nephrostomy tube. The catheter was secured with a single 0 Prolene suture. Dressing applied. Patient tolerated all procedures well and there were no complications. FINDINGS: Severe left hydron ephrosis, fluoroscopic images demonstrated appropriate positioning of nephrostomy tube within the collecting system IMPRESSION: Successful image guided placement of left 10 Stateless percutaneous nephrostomy tube PLAN: Maintained to gravity [...] of this patient. Please call with questions. [facility] Infectious Disease Tammy Boyd APRN, CNP Preferred method of communication between 0700 and 1700 Epic chat If no response to Epic chat within 30 minutes, after 1700, and for urgent matters call [phone], if no answer call [phone] This note was completed using a voice pbx technician system. Every effort was made to ensure accuracy. However, inadvertent computerized pbx technician errors may be present. STEPHEN Mills 05/23/24 1155 IMaribel MD, personally performed [id number] diagnostic evaluation on this patient I reviewed and performed all the [place] component of the patient visit I reviewed FATIMAH history, exam and MDM - Maribel Zepeda MD 05/23/24 2:04 PM [facility]10-[facility] Consult note* Mariebl Zepeda MD - 05/23/2024 9:00 AM EDTAssociated Order(s): IP CONSULT TO INFECTIOUS DISEASES Images from the original note were not included. [facility] Infectious Diseases - Initial Consult Note [...] Medical History: Diagnosis Date Migraines Septic shock ([facility]) 05/21/2024 Past Surgical History: Past Surgical [...] Component Value Units Date/Time Blood culture #1 [[id number]] Resulted: 05/23/24 1021 Specimen: Blood, Peripheral Draw Updated: 05/23/24 1021 Blood culture #2 [[id number]] Resulted: 05/23/24 1021 Specimen: Blood, Peripheral Draw Updated: 05/23/24 1021 Urine culture [[id number]] Collected: 05/21/24 1525 Specimen: Urine from Guevara Catheter Specimen Updated: 05/22/24 1420 Culture <10,000 ORGANISMS/ML NORMAL URO GENITAL ALANNAH Blood culture #2 [[id number]] Collected: 05/21/24 1523 Specimen: Blood Updated: 05/22/24 0609 Culture GRAM NEGATIVE RODS CULTURE IN PROGRESS Blood culture #1 [[id number]] (Abnormal) Collected: 05/21/24 1520 Specimen: Blood Updated: [...] was then dilated to accommodate a 10 Stateless nephrostomy tube. The catheter was secured with a single 0 Prolene suture. Dressing applied. Patient tolerated all procedures well and there were no complications. FINDINGS: Severe left hydron ephrosis, fluoroscopic images demonstrated appropriate positioning of nephrostomy tube within the collecting system IMPRESSION: Successful image guided placement of left 10 Stateless percutaneous nephrostomy tube PLAN: Maintained to gravity [...] after 1700, and for urgent matters call [phone], if no answer call [phone] This note was completed using a voice pbx technician system. Every effort was made to ensure accuracy. However, inadvertent computerized pbx technician errors may be present. STEPHEN Mills 05/23/24 1157 Maribel Gannon MD, personally performed [id number] diagnostic evaluation on this patient I reviewed [...] a 68 y.o. female who presented to [facility] with history of recent UTI on 05/16 [...] ureter or renal pelvis. Pt transferred to [facility] as she has required Vasopressor for hypotension. [...] Interpersonal Safety: Unknown (09/14/2023) Received from [facility] Environment Fear of Current or [...] pelvis- Marked left hydro and hydroureter to [id number] UVJ stone. Possible additional proximal stone, + leftrenal stone Assessment and Plan Impression: 68 yo female with obstructing left distal ureterovesical junction stone with hydroureteronephrosis,+UTI, acute kidney injury Plan: IR consulted for left percutaneous nephrostomy tube emergently, placed and draining, culture sent Continuous supportive care, broad-spectrum antibiotics, ICU support We will need outpatient intervention of stone either here or in [place], also has left nonobstructing kidney stone No further acute urologic intervention needed at this time, will monitor - SHAHZAD LEI 05/21/24 3:04 PM Attending Attestation: I personally performed the face to face diagnostic evaluation on this patient. I have reviewed the advanced practice practitioner's history, exam, and MDM and agree with the assessment and plan as written. documented in this encounterOhio State [facility]ing Hospital10-31-2024 Plan of care note * Plan of Care - Jovany Wynne RN - 05/23/2024 8:52 AM EDT Problem: Pain Goal: Patient goal is pain score less than 4, able to rest, and participant in treatment plan as appropriate Description: INTERVENTIONS: 1. Encourage patient or legal specialty sales representative to report early pain and [...] per policy 9. Teach patient or legal specialty sales representative interventions for comforting Outcome: Progressing [...] at the bedside 7. Instruct patient/ patient specialty sales representative about use of safety devices 8. Include patient/ patient specialty sales representative in decisions related to safety [...] hygiene technique 7. Identify and instruct patient/patient specialty sales representative in use of appropriate isolation precautionsfor identified infection/symptoms 8. Provide and discuss with patient/patient specialty sales representative on educational MDRO sheet 9. Encourage and monitor nutritional status daily and consult textile machine maintenance mechanic if indicated 10. Implement neutropenic guidelines as [...] infection/ sepsis. Problem: Knowledge Deficit Goal: Patient/patient specialty sales representative demonstrates understanding of disease process, [...] Score of =/> 25 or indicated by [facility] Assessment Goal: Patient should be free from fall Description: Interventions: 1. [place] to environment 2. Hourly rounds addressing the [...] non-skid footwear 11. Teach patient and patient specialty sales representative to maintain environment for safety [...] (cane, walker) within reach 19. Request patient specialty sales representative bring adaptive equipment/mobility aids from home or obtain and provide as needed 20. Consult pharmacy regarding effects of med's affecting mobility, cognition, and alternatives 21. Obtain physician order for PT if risk factors associated with mobility are present 22. Obtain physician order for OT as appropriate 23. Utilize diversional activities 24. Educate patient and patient specialty sales representative how to maintain a safe environment during visitationtimes (notify nurse prior to leaving bedside) 25. Consider appropriateness of medical or non-medical social consultant 26. Set up voiding schedule as appropriate [...] patients are rounded on q1h and PRN. [facility]10-[facility] Plan of care note* Plan of Care - Bertrand Cleary - 05/22/2024 7:05 PM EDT Problem: Pain Goal: Patient goal is pain score less than 4, able to rest, and participant in treatment plan as appropriate Description: INTERVENTIONS: 1. Encourage patient or legal specialty sales representative to report early pain and [...] per policy 9. Teach patient or legal specialty sales representative interventions for comforting Outcome: Progressing [...] at the bedside 7. Instruct patient/ patient specialty sales representative about use of safety devices 8. Include patient/ patient specialty sales representative in decisions related to safety [...] of progress towards goal: RN performing pericare. The [email or web address] [id number] Plan of care note* Plan of Care - Senia Godfrey RN - 05/22/2024 4:34 PM EDT Problem: Pain Goal: Patient goal is pain score less than 4, able to rest, and participant in treatment plan as appropriate Description: INTERVENTIONS: 1. Encourage patient or legal specialty sales representative to report early pain and [...] per policy 9. Teach patient or legal specialty sales representative interventions for comforting 05/22/2024 1633 [...] at the bedside 7. Instruct patient/ patient specialty sales representative about use of safety devices 8. Include patient/ patient specialty sales representative in decisions related to safety [...] hygiene technique 7. Identify and instruct patient/patient specialty sales representative in use of appropriate isolation precautionsfor identified infection/symptoms 8. Provide and discuss with patient/patient specialty sales representative on educational MDRO sheet 9. Encourage and monitor nutritional status daily and consult textile machine maintenance mechanic if indicated 10. Implement neutropenic guidelines as [...] be free from fall Description: Interventions: 1. [place] to environment 2. Hourly rounds addressing the [...] non-skid footwear 11. Teach patient and patient specialty sales representative to maintain environment for safety [...] (cane, walker) within reach 19. Request patient specialty sales representative bring adaptive equipment/mobility aids from home or obtain and provide as needed 20. Consult pharmacy regarding effects of med's affecting mobility, cognition, and alternatives 21. Obtain physician order for PT if risk factors associated with mobility are present 22. Obtain physician order for OT as appropriate 23. Utilize diversional activities 24. Educate patient and patient specialty sales representative how to maintain a safe environment during visitationtimes (notify nurse prior to leaving bedside) 25. Consider appropriateness of medical or non-medical social consultant 26. Set up voiding schedule as appropriate [...] patients are rounded on q1h and PRN. [employer]10-30-2024 Progress note* Discharge Planning Note - KALINA Sanon - 05/22/2024 2:06 PM EDT DISCHARGE PLANNING NOTE Operational Assistant met with patient, introduced self, and explained role. Patient is alert and oriented, sitting in lazy boy chair, cooperative. Patient educated on safe discharge plan. Pt admitted 05/21/2024 with Septic [place] [A41.9, R65.21] Elevated troponin [R79.89] per chart review. Consults: Urology Discharge Barriers per Daily Transition Rounds and chart review: clears, IV ATB, IV Pepcid, new neph tube, guevara Past Medical History: Diagnosis Date Migraines Septic shock ([facility]) 05/21/2024 Prior to admission patient [...] PCP: OLMAN SHOEMAKER MD Pharmacy:[facility] [place] PCP and pharmacy confirmed with patient. OLMAN [...] questions. - KALINA SANON 05/22/24 2:07 PM [employer]10-30-2024 Progress note* Query Response - Ryan Benitez [...] 60 Thank you, Angella PIERCE, RN Clinical Global Climate Change Researcher Clinical Documentation Integrity Email: [email or web address] Normal Hours of availability 7:00am to 3:30pm, Monday to Monday CDI RESPONSE TEXT: Thrombocytopenia due to sepsis Query created by: Angella Gilbert on 05/22/2024 6:01 AM Electronically signed by: Ryan Benitez MD 05/22/2024 12:00 PM [facility]10-30-2024 Plan of care note* Plan of Care - Maria Morton MD - 05/22/2024 9:34 AM EDT [facility] Transfer Accept Note I received a request from the ICU team to transfer primary service to [facility]. I have received a verbalhand off from the ICU team. [facility] will assume care as primary team, once [...] to floor if continued to be stable [email or web address] [facility] Work Phone: [phone] Progress note* Query Response - Ryan Benitez [...] tachypneic?. Thank you, Angella PIERCE, RN Clinical Global Climate Change Researcher Clinical Documentation Integrity Email: [email or web address] Normal Hours of availability 7:00am to 3:30pm, Monday to Monday CDI RESPONSE TEXT: Acute respiratory failure due to sepsis Query created by: Angella Gilbert on 05/22/2024 6:08 AM Electronically signed by: Ryan Benitez MD 05/22/2024 8:35 AM [employer]10-29-2024 Plan of care note* Plan of Care - Bertrand Cleary - 05/21/2024 9:59 PM EDT Problem: Pain Goal: Patient goal is pain score less than 4, able to rest, and participant in treatment plan as appropriate Description: INTERVENTIONS: 1. Encourage patient or legal specialty sales representative to report early pain and [...] per policy 9. Teach patient or legal specialty sales representative interventions for comforting Outcome: Progressing [...] hygiene technique 7. Identify and instruct patient/patient specialty sales representative in use of appropriate isolation precautionsfor identified infection/symptoms 8. Provide and discuss with patient/patient specialty sales representative on educational MDRO sheet 9. Encourage and monitor nutritional status daily and consult textile machine maintenance mechanic if indicated 10. Implement neutropenic guidelines as needed 11. Review exposure to history of communicable disease and recent travel history on admission 12. Encourage annual influenza vaccine 13. Encourage pneumonia vaccine Outcome: Progressing Note: Evaluation of progress towards goal: Pt on ATBs. RN monitoring vital signs. [facility] RehabilitationGevo10-29-[facility]24 Procedure note* Serafin Ott RN - 05/21/2024 4:04 PM EDT Site Preparation: Site Marked: yes Other: left back Prepped with: Chloraprep - with dry time of 3 minutes prior to draping the patient Site Clipped: no Patient Draped: yes [facility]10-29-2024 Procedure note* Serafin Ott RN - 05/21/2024 4:04 PM EDT Site Preparation: Site Marked: yes Other: left back Prepped with: Chloraprep - with dry time of 3 minutes prior to draping the patient Site Clipped: no Patient Draped: yes * STEPHEN Cobian - 05/21/2024 2:25 PM EDTAssociated Order(s): Central Line Insertion Post-Procedure Diagnose(s): Septic shock ([facility]) Images from the original note [...] to verify the correct patient, procedure, equipment, practice support specialist and site/side marked as required. Fire Risk [...] Interventions: none Proceduralist: Milton Garcia CNP 1st Program Coordinator For Residence Life: Samantha Whitley CNP ESTIMATED BLOOD LOSS: Less [...] an easily collapsible vessel using ultrasound. A 7.0-persian 16 cm triple lumen catheter was inserted [...] Arterial Line Insertion Post-Procedure Diagnose(s): Septic shock ([facility]) PREOPERATIVE DIAGNOSIS: Septic shock Urosepsis [...] to verify the correct patient, procedure, equipment, practice support specialist and site/side marked as required. Fire Risk [...] STEPHEN Cobian 05/21/24 1423 documented in this encounterOhio [facility]ing [facility]10-29-2024 Nurse procedure note* Sedation Documentation - Serafin Ott RN - 05/21/2024 3:58 PM EDT Basic respiratory resuscitation equipment including Ambu bags, airway devices, suction, oxygen, blood pressure cuff appropriate to size of patient, lunchroom monitor, pulse oximetry, ETCO2, and reversal agents are available. An emergency resuscitation cart, advanced resuscitation medications and defibrillator are availablein the immediate area. [facility] Tradier [id number] Consult note* Esme Chen MD - 05/21/2024 2:35 PM EDTAssociated Order(s): IP CONSULT TO UROLOGY Urology Consultation Patient: Sharri Murillo Date of : 1955 CHIEF COMPLAINT: left ureteral stone, sepsis HISTORY OF PRESENT ILLNESS: The patient is a 68 y.o. female who presented to [facility] with history of recent UTI on 05/16 [...] ureter or renal pelvis. Pt transferred to [facility] as she has required Vasopressor for hypotension. [...] Interpersonal Safety: Unknown (09/14/2023) Received from [facility] Safety [facility] Environment Fear of Current or [...] pelvis- Marked left hydro and hydroureter to [id number] UVJ stone. Possible additional proximal stone, + leftrenal stone Assessment and Plan Impression: 68 yo female with obstructing left distal ureterovesical junction stone with hydroureteronephrosis,+UTI, acute kidney injury Plan: IR consulted for left percutaneous nephrostomy tube emergently, placed and draining, culture sent Continuous supportive care, broad-spectrum antibiotics, ICU support We will need outpatient intervention of stone either here or in [place], also has left nonobstructing kidney stone No further acute urologic intervention needed at this time, will monitor - SHAHZAD LEI 05/21/24 3:04 PM Attending Attestation: I personally performed the face to face diagnostic evaluation on this patient. I have reviewed the advanced practice practitioner's history, exam, and MDM and agree with the assessment and plan as written. [facility]10-29-2024 Procedure note* STEPHEN Cobian - 05/21/2024 2:25 PM EDTAssociated Order(s): Central Line Insertion Post-Procedure Diagnose(s): Septic shock ([facility]) Images from the original note [...] to verify the correct patient, procedure, equipment, practice support specialist and site/side marked as required. Fire Risk [...] Interventions: none Proceduralist: Milton Garcia CNP 1st Program Coordinator For Residence Life: Samantha Whitley CNP ESTIMATED BLOOD LOSS: Less [...] an easily collapsible vessel using ultrasound. A 7.0-persian 16 cm triple lumen catheter was inserted [...] Same as above STEPHEN Cobian 05/21/24 1427 [facility]10-29-2024 Procedure note* STEPHEN Coiban - 05/21/2024 2:19 PM EDTAssociated Order(s): Arterial Line Insertion Post-Procedure Diagnose(s): Septic shock ([facility]) PREOPERATIVE DIAGNOSIS: Septic shock Urosepsis [...] to verify the correct patient, procedure, equipment, practice support specialist and site/side marked as required. Fire Risk [...] Same as above STEPHEN Cobian 05/21/24 1423 [facility]10-29-2024 History and physical note* Ryan Benitez MD - 05/21/2024 1:35 PM EDT Consultation Note [facility] Critical Care Referring physician: Fabien Rivera Patient - Sharri Murillo Age - 68 y.o. [facility] 1955 [id number] Date of Admission - 05/21/2024 12:52 PM [...] hydronephrosis. Patient was given antibiotics and transferred [facility] for further management. Seen and examined [...] titration of care by a Critical Care Kiss Machine Operator. Failure to do so may result in further organ system failure, imminent deterioration, or . Ryan Benitez MD [facility] Physicians Pulmonary and Sleep Pulmonary / Critical Care Pager: [phone] Office : [phone] Fax : [phone] 05/21/24 1:35 PM [facility]10-29-2024 History and physical note* Ryan Benitez MD - 05/21/2024 1:35 PM EDT Consultation Note [facility] Critical Care Referring physician: Fabien Rivera Patient - Sharri Murillo Age - 68 y.o. - 1955 [id number] Date of Admission - 05/21/2024 12:52 PM [...] hydronephrosis. Patient was given antibiotics and transferred [facility] for further management. Seen and examined [...] titration of care by a Critical Care Kiss Machine Operator. Failure to do so may result in further organ system failure, imminent deterioration, or . Ryan Benitez MD [facility] Physicians Pulmonary and Sleep Pulmonary / Critical Care Pager: [phone] Office : [phone] Fax : [phone] 05/21/24 1:35 PM documented in this encounterOhio State [facility]ing Hospital06-25-2024 Hospital Discharge instructions Patient Education 01/16/2024 [...] include: ?8 oz (237 mL) of milk, nyzjfnh-lbnabcurches-nqfcc milk, and calcium- fortifiedfruit juice. Calcium-fortified means [...] ?Spinach (cooked), rhubarb, beets, sweet potatoes, and Swedish chard. ?Peanuts. ?Potato chips, persian fries, and baked potatoes with skin on. ?Nuts and nut products. ?Chocolate. If you regularly take a diuretic medicine, make sure to eat at least 1 or 2 servings of fruits or vegetables that are high in potassium each day. These include: ?Avocado. ?Banana. ?[place], prune, carrot, or tomato juice. ?Baked potato. [...] magnesium, fish oil, or vitamin B6. Take rejy-zza-whxzkpl and prescription medicines only as told by [...] Casseroles. Pizza. Lasagna. Frozen meals. Potato chips. Stateless fries. The items listed above may not [...] provider. Document Revised: 10/20/2022 Document Reviewed: 10/20/2022 [employer] Patient Education 2022 youcalc. Follow Up Care 08/10/2022 15:34:44 With:THUY CAMPBELL PA-C, URL Address: [place] [address] When: Unknown [facility] evaluation + Plan note Future Appointments Appointment Date:01/10/2024 03:00:00 PM Scheduled Provider:THUY CAMPBELL PA-C Location:[facility] Appointment Type:URO Office Visit Diagnostic Tests Pending * Urine Culture [facility]22 [facility] note[facility] InformationNort [employer] Other Evaluation noteNo assessment information available [facility] Work Phone: Evaluation note* Diagnosis Onset Date Resolution Status Influenza B noneactiveBronchitisacute [facility] Work Phone: Evaluation note* Diagnosis Onset Date Resolution Status Hypertension acuteScreening mammogram for breast canceracute [facility] Work Phone: Evaluation note* Diagnosis Calculus of ureterovesical junction (UVJ)- Primary Hypokalemia- Primary Hypopotassemia Calculus of ureterovesical junction (UVJ) Calculus of ureterovesical junction (UVJ) documented in this encounter [facility] System[facility]* Diagnosis Flank pain- Primary Abdominal pain, unspecified site documented in this encounter [facility]* Diagnosis Septic shock (CMS-HCC)- Primary Septic shock ([facility]) E coli bacteremia Nephrolithiasis Calculus of kidney documented in this [facility]* Diagnosis Calculus of ureterovesical junction (UVJ)- Primary Septic shock (CMS-HCC) Bacteremia- Primary Septic shock (CMS-HCC) Calculus of ureterovesical junction (UVJ) documented in this encounter [facility]* Diagnosis Calculus of ureterovesical junction (UVJ)- Primary documented in this encounter [facility]* Diagnosis Kidney stones- Primary Calculus of kidney Pelvicaliectasis Other specified disorder of kidney and ureter Kidney stone Calculus of kidney documented in this encounter 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* Diagnosis Kidney stones- Primary Calculus of kidney Pelvicaliectasis Other specified disorder of kidney and ureter Kidney stone Calculus of kidney 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 documented in this encounter [facility] note* Diagnosis Onset Date Resolution Status Admit Date Left lumbar radiculopathy acuteOctober 2024 10:06am [facility] Work Phone: History general Narrative - Reported* Type Description Date Medical History HTN Surgical HistoryhysterectomySurgical Historygallbladder removalSurgical History herniaHospitalization Historysee above [employer] Other Hospital course Narrative No data available for this section [facility] No data available for this section [facility]* Attachments The following attachments cannot be sent through Care Everywhere. * E. coli Infection (Malay) documented in this encounterProCleveland [facility] SystemInstructionsNot on file documented in this encounterSt. [facility] SystemInstructionsNot on file documented in this encounterSt. [facility] SystemInstructionsNot on file documented in this encounterSt. Mary[facility] SystemInstructionsNot on file documented in this encounterSt. Mary[facility] SystemInstructionsNot on file documented in this encounterProCleveland Clinic [facility] SystemInstructionsNot on file documented in this encounterProCleveland [facility] SystemInstructionsNot on file documented in this encounterSt. Mary[facility] SystemInstructions* Attachments The following attachments cannot be sent through Care Everywhere. * Kidney Stone Diet (Malay) documented in this encounterProCleveland Clinic [facility] SystemInstructionsNot on file documented in this encounterSt. Mary's [facility] SystemInstructionsNot on file documented in this encounterSt. Mary's Medical Center SystemProgress note No data available for this section [facility] (narrative)* Misc (Routine) - Pending ReviewSpecialtyDiagnoses / ProceduresReferred By ContactReferred To Contact Procedures Adult diet Tabby Iqbal MD [address] [place] [address] Phone: tel: fax: Referral IDStatusReasonStart DateExpiration DateVisits RequestedVisits [id number] [facility] for referral (narrative)No reason for referral information availableFostoria City Hospital Work Phone: Reason for visit Narrative* Auth/Cert (Routine) SpecialtyDiagnoses / ProceduresReferred By ContactReferred To Contact Diagnoses Septic shock (CMS-HCC) Elevated troponin Septic Shock Ryan Benitez MD [address], [address] [place] [address] Phone: tel: fax: Referral IDStatusReasonStart DateExpiration DateVisits RequestedVisits [id number] [facility] Summary Purpose Family History No Family [...] Advance Directives No August 4:03pm Date ActivatedDate JltmihookipIuaqzevz22/5/2024 7:46 PM06/28/2024 9:02 PMDate ActivatedDate OkgwthmlnniQocojzdd69/29/2024 1:36 PM05/26/2024 7:56 PMDate ActivatedDate WqcekgnsyajMunkycxo37/5/2024 7:46 PM06/28/2024 9:02 PMDate ActivatedDate CkaysecpaneGhazdovy25/29/2024 1:36 PM05/26/2024 7:56 PM Advance Directive Response Recorded Date/ Time Advance Directives No August 3:03pm Date ActivatedDate MzpdqmoxvvkFpvldlmu24/29/2024 1:36 PMDate ActivatedDate GeawkmrbeimVqfvjest55/29/2024 1:36 PMDate ActivatedDate InactivatedComments 05/21/2024 1:36 PM05/26/2024 [...] section and content) DATE CREATED AUTHOR 02/27/2021 [facility] DATE CREATED AUTHOR AUTHOR'S ORGANIZ ATION 08/09/[address] [facility] DATE CREATED AUTHOR AUTHOR'S ORGANIZ ATION 09/12/2024 [facility] DATE CREATED AUTHOR AUTHOR'S ORGANIZ ATION 12/22/2024 [facility] DATE CREATED AUTHOR AUTHOR'S ORGANIZ ATION 02/09/2025 [facility] DATE CREATED AUTHOR AUTHOR'S ORGANIZ ATION 04/09/2025 [facility] DATE CREATED AUTHOR AUTHOR'S ORGANIZ ATION 04/18/2025 [facility] DATE CREATED AUTHOR AUTHOR'S ORGANIZ ATION 06/05/2025 [facility] Patient Care team informatio n (unrecognized section and content) Team Status: Active Member Role Status Dates Olman Shoemaker MD Primary Care Provider Active Team Status: Inactive Member Role Status Dates Olman Shoemaker MD Primary Care Provider Active Start: April 08, 2025 End: April 08, 2025[facility] CommunityAttatrium health university city ProviderActiveStart: April 08, 2025 End: April 08, [...] 2023 End: October 25, 2023Thuy Chaney APRN ASSEMBLER PLASTIC BOAT-CAttending ProviderActive Start: October 25, 2023 End: October 25, 2023 Team Status: Inactive Member Role Status Dates Olman Shoemaker MD Primary Care Provide r, Attending Provider Active Start: May 16, 2024 End: May 16, 2024Team MemberRelationshipSpecialtyStart DateEnd Date Olman Shoemaker MD [address] [id number] PCP - GeneralFamily Qudfowmk62/29/24Team MemberRelationshipSpecialtyStart Date End Date Olman Shoemaker MD [address] [place] [address] PCP - GeneralFamily Gtievpjc36/29/24Team MemberRelationshipSpecialtyStart Date End Date Olman Shoemaker MD [address] [place] [address] PCP - GeneralFamily Yxvriqfh59/29/24Team MemberRelationshipSpecialtyStart Date End Date Olman Shoemaker MD [address] [place] [address] PCP - GeneralFamily Bdkqywsn26/29/24Team MemberRelationshipSpecialtyStart Date End Date Olman Shoemaker MD [address] [place] [address] PCP - GeneralFamily Dqyebcng23/29/24Team MemberRelationshipSpecialtyStart Date End Date Olman Shoemaker MD [address] [place] [address] PCP - GeneralFamily Nielgspn28/29/24Team MemberRelationshipSpecialtyStart Date End Date Olman Shoemaker MD [address] [place] [address] PCP - GeneralFamily Jarbwrjz30/29/24Team MemberRelationshipSpecialtyStart Date End Date Olman Shoemaker MD [address] [facility] [place] [address] PCP - GeneralFamily Ggtlupsb65/29/24Team MemberRelationshipSpecialtyStart Date End Date Olman Shoemaker MD [address] [facility] [place] [address] PCP - GeneralFamily Setyjrka15/29/24Team MemberRelationshipSpecialtyStart Date End Date Olman Shoemaker MD [address] [place] [address] PCP - GeneralCl[facility] Hospitally Noywwoqx42/29/24 Team Status: Active Member Role/Relationship Status Dates Olman Shoemaker MD Primary Care Provider Active Team Status: Inactive Member Role/Relationship Status Dates Olman Shoemaker MD Primary Care Provider Active Start: April 08, 2025 End: April 08, 2025[facility] HospitalAttending ProviderActiveStart: April 08, 2025 End: April 08, 2025 Team Status: Inactive Member Role/Relationship Status Dates Olman Shoemaker MD Primary Care Provider Active Start: May 20, 2025 End: May 20, 2025Olman Shoemaker MDAttatrium health university city ProviderActiveStart: May 20, 2025 End: May 20, 2025 REASON FOR VISIT (unrecogniz ed section and content) VzkcabLjbpahkjTkvghk-kvTmdskkZfvdfglkHwajpg-ya Goals (unrecognized section and content) Goals may [...] 0927 (Given - Provider: Disha Mckeon, MINNIE) jbrnzakr-puor-MQ-calcium &mins (THERAGRAN-M) 9 mg iron-400 mcg tablet [...] pain scale 1-3, headaches, Starting on Mon05/21/24 [id number], Indications: fever, pain bisacodyL (DULCOLAX) suppository 10 [...] * 0507 (See Alternative - Provider: Kimberly Saucdea, RN) * 0707 (See Alternative - Provider: [...] pain scale 1-3, headaches, Starting on Mon05/21/24 [id number], Indications: fever, pain Or acetaminophen (TYLENOL) 650 [...] BE BASED ON THE PRIMARY CLINICAL RECORDS. [facility]. provides no warranty or guarantee of the accuracy or completeness of information in this document.
--- NOTE | 2025-06-23 11:40 | XR_ITS ---
[facility] [place] [id number] Patient Name: LOREN MURILLO MRN: [id number] date: 1955 Sex: F Assigned Patient Location: [facility] Current Patient Location: [facility] Accession/Order Number: [id number] Exam Date: 06/23/2025 11:30 Report Date: 06/23/2025 16:08 At the request of: EZRA FULTON NP Procedure: XR lumbar spine 6V w bending XR lumbar spine 6V w bending 06/23/2025 11:42 AM SIGNS AND SYMPTOMS: ^Lumbar Stenosis With Neuro Claudication PROTOCOLS: Frontal, lateral, and oblique radiographs of the lumbar spine COMPARISON: 06/12/2025 FINDINGS: There is 9 mm of anterolisthesis of L3 upon L4 on flexion reducing to 4 mm on extension suggesting pathologic movement. There is severe disc height loss at L5-S1 with mild disc height loss at L2-L3, L3-L4, and L4-L5.. Degenerative changes are noted in the sacroiliac joints. There is evidence of prior cholecystectomy in the right upper quadrant. Atherosclerotic changes are noted in the abdominal aorta. XR/XR lumbar spine 6V w bending IMPRESSION: There is 9 mm of anterolisthesis of L3 upon L4 on flexion reducing to 4 mm on extension suggesting pathologic movement. There is severe disc height loss at L5-S1 with mild disc height loss at L2-L3, L3-L4, and L4-L5.. Impression dictated by: Gaurav Tsang M.D. 06/23/2025 4:08 PM Dictation Location: [place] [address] Electronically authenticated by: [id number] Y Date: 06/23/2025 16:08
== END 2025-06-23 11:10 | disposition home or self-care (01) ==
LOC: RAD 11:11
PROVIDERS: PCP Family Medicine; Visit Provider Nurse Practitioner
DX: M48.062 Spinal stenosis, lumbar region with neurogenic claudication (principal); M43.16 Spondylolisthesis, lumbar region
CPT/HCPCS: 72114

== ENCOUNTER 2025-06-30 08:02 | Day surgery (SDC) | payer MEDICARE, SELFPAY ==
--- OUTSIDE RECORDS SUMMARY | 2025-06-30 08:06 | XMS_ITS | Clinical Summary ---
Author Organization [facility] Address [address] [place] [address] Care Team Providers Care Occupational Therapy Specialist Name Role Phone Unavailable Primary Care Provider Unavailabl e Social History Tobacco UseTypesPacks/DayYears UsedDateSmoking Tobacco: Never Assessed CommentsUnknownSex and Gender InformationValueDate RecordedSex Assigned at Not on fileLegal DbxDnkzyi74/15/2023 7:31 PM EDTGender IdentityNot on fileSexual OrientationNot on file Last Filed Vital Signs Vital SignReadingTime TakenCommentsBlood Pressure--Pulse--Temperature-- Respiratory Rate--Oxygen Saturation--Inhaled Oxygen Concentration--Krypqc771 kg (289 lb)06/18/2018 12:00 PM UIZXpflcx155.7 cm (5' 8 )06/18/2018 12:00 PM ESTBody Mass Index43.9406/18/2018 12:00 PM EST Plan of Treatment Not on file
--- OUTSIDE RECORDS SUMMARY | 2025-06-30 08:06 | XMS_ITS | Clinical Summary ---
Author Organization 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 Name Role Phone Unavailable Primary Care Provider Unavailabl e Social History Tobacco UseTypesPacks/DayYears UsedDateSmoking Tobacco: Never AssessedUT Safety & EnvironmentAnswerDate RecordedFear of Current or Ex-PartnerNot on file 09/14/2023Emotionally AbusedNot on file09/14/2023hysically AbusedNot on file 09/14/2023Sexually AbusedNot on file09/14/2023hysically or Sexually AbusedNot on file09/14/2023CommentsUnknownSex and Gender InformationValueDate RecordedSex Assigned at BirthNot on fileLegal BtcNpjqhr06/29/2022 10:32 PM EDT Gender IdentityNot on fileSexual OrientationNot on file Last Filed Vital Signs Vital SignReadingTime TakenCommentsBlood Prdrmdrp413/7308 1:49 PM EDT Nbkwd896803/10/2021 1:49 PM SKJWopyddxjmuz42.6 ??C (97.9 ??F)03/10/2021 1:49 PM EDTRespiratory Rate--Oxygen Saturation--Inhaled Oxygen Concentration--Opvjdj172 kg (320 lb)03/10/2021 1:47 PM XEVEigkjm898.7 cm (5' 8 )03/10/2021 1:47 PM EDT Body Mass Index48.66003/10/2021 1:47 PM EDT Plan of Treatment Health MaintenanceDue DateLast DoneCommentsCT Ijshbzeiqsjq47/20/1958Colonoscopy 1957Colorectal Cancer Zyenmsrve06/20/1958FIT-DNA1957FIT1957 FOBT1957 7821Tsdysjxtqzivo58/20/1958Depression Mecssymwl36/20/1970Adult Tetanus 12/11/19792542Ibagdbycl08/20/1998Pneumococcal Vaccine: 50+ Years (1 of 1 - PCV) 12/11/2007Zoster Vaccines (1 of 2)12/11/2007Fall Risk Catfsffzy82/20/2023COVID- 19 Vaccine (1 - 2024- season)2025Influenza Vaccine [...]
--- OUTSIDE RECORDS SUMMARY | 2025-06-30 08:09 | XMS_ITS | CCD ---
Author Organization [facility] Care Team Providers Care Coo Name Role Phone SIDNEY PAGAN Attending Unavailable OLMAN SHOEMAKER Primary Care Unavailable OLMAN SHOEMAKER Referring Unavailable SIDNEY PAGAN Admitting Unavailable SIDNEY PAGAN Surgeon Unavailable OLMAN SHOEMAKER Primary Care Unavailable OLMAN SHOEMAKER Referring Unavailable MA Procedure Practitioner Unavailab SIDNEY Jasso Admitting Unavailable [...] Referring Unavailable OLMAN SHOEMAKER Primary Care Unavailable DOINY DUMONT Consulting UnavailMARIBEL Albarran Consulting Unavailable DANA [...] Unavailable Olman Shoemaker MD Primary Care Provider [phone] Community, Outreach Attending Provider [phone] Community, Outreach Attending Unavailable Community, Outreach Admitting Unavailable Sahara, Olman E Primary Care Unavailable THUY CAMPBELL Attending Unavailable Olman Shoemaker MD Attending Provider Zhen Mendoza MD Attending Unavailable Allergies Allergy ClassificationReported Allergen(s)Allergy TypeDate of OnsetReaction(s) FacilitySulfonamides (antibiotic) (1 source)Sulfonamides (Antibiotic); Translations: [SULFA (SULFONAMIDE ANTIBIOTICS)]Drug [id number] [facility] Repository (1 source)Sulfonamides (Antibiotic)Drug allergy (disorder)[facility] Repository (3 sources)Sulfonamides (Antibiotic); Translations: [sulfa drugs]Drug allergy Unknown (qualifier value)[facility] [place] (18 sources)Substance with sulfonamide structure and antibacterial mechanism of action (substance)Drug vhaosba74-64-0217beuqs, Other (See Comments)[employer] Other (3 sources)patient allergy list reviewed by nurse or physiciaPropensity to adverse gdjjxypru18-17-4166Nhfpznm:[facility] Other (3 sources)Allergies ReconciledPropensity to adverse reactionsUnknoMissouri Baptist Medical Center [employer] Other (7 sources)Sulfonamides (Antibiotic); Translations: [SULFA (SULFONAMIDE ANTIBIOTICS)]Propensity to adverse reactions to drug (disorder)10-25-2023 [facility] Repository Medications Current Medications MedicationDrug Class(es)DatesSig (Normalized)Sig (Original)Acetaminophen (1 source)Start: 33-26-5495myzlhyzenbwzn (TYLENOL) tablet 650 mgascorbic acid 1000 mg oral tablet (15 sources)Vitamin Ctake 1 tablet by mouth in the morningascorbic acid, vitamin C, (VITAMIN C) 1000 mg tablet Take 1 tablet (1,000 mg total) by mouth in the morning. Activeaspirin 81 mg chewable tablet (20 sources)Platelet Aggregation Inhibitor, Nonsteroidal Anti-inflammatory Drug Start: 45-61-9029vnpg 1 tablet by mouth once dailyAspirin 81 mg tablet,chewable Active 81 MG PO Daily October 14, 2023 12:00am Complies with drug therapyStart: 54-27-4244sygv 1 tablet by mouth once dailyaspirin 81 mg Oral EC Tab 81 mg = 1 tab(s), Oral, Daily, Refills(s) 0 Start Date: 12/17/19 Status: OrderedBaby Aspirin Activebisacodyl 10 mg rectal suppository (1 source)Stimulant LaxativeStart: 47-03-0709qxkz 10 mg by mouth once daily as needed for jgwiaoewhhum67 mg, rectal, Daily PRN, constipation, Constipation if polyethylene glycol is ineffective or patient is unable to take oral medications, Starting on Mon05/21/24 at 1333, Look-alike/sound-alike medication - verify indication for use.Calcium Gluconate (1 source)Start: 78-73-1682mjcmtmd gluconate IVPB 1000 mg/50 mL (20 mg/mL premix)cefTRIAXone (ROCEPHIN) 2,000 mg in sodium chloride 0.9 % 50 mL IVPB-MBP (1 source)Start: 34-44-7710ayyr 2000 mg intravenously every twenty-four hours 2,000 [...] IVPB MINI-BAG Plus (4 sources)Start: 05-24-2024 End: 34-51-2349golc 2000 mg intravenously every twenty-four hourscefTRIAXone 2,000 mg in sodium chloride 0.9 % 50 mL IVPB MINI-BAG Plus Infuse 2,000 mg into a venous catheter daily for 11 days. WBC, platelet, creatinine, LFT weekly while on antibiotic, faxed to [facility] [phone]. IV flushes as per protocol 1 each 05/24/2024 06/04/2024 ActiveStart: 05-24-2024 End: 10-08-6410izas 2000 mg intravenously every twenty-four hourscefTRIAXone 2,000 mg in sodium chloride 0.9 % 50 mL IVPB MINI-BAG Plus Infuse 2,000 mg into a venous catheter daily for 11 days. WBC, platelet, creatinine, LFT weekly while on antibiotic, faxed to [place] [phone] . IV flushes as per protocol 1 each 05/24/2024 06/04/2024Start: 05-24-2024 End: 04-37-4145mqtw 2000 mg intravenously every twenty-four hourscefTRIAXone 2,000 mg in sodium chloride 0.9 % 50 mL IVPB MINI-BAG Plus Infuse 2,000 mg into a venous catheter daily for 11 days. WBC, platelet, creatinine, LFT weekly while on antibiotic, faxed to [place] [phone] . IV flushes as per protocol 1 each 05/24/2024 05/24/2024 DiscontinuedCentrum MultiGummies Women (2 sources)Start: 18-05-1829Ekdygjv MultiGummies Women See Instructions, Refill(s) 0, one po daily Start Date: 12/17/19 Status: Orderedcholecalciferol 0.05 mg oral tablet (16 sources)Vitamin DStart: 69-75-7002qxrb 2000 [IU] by mouth once daily2,000 Units, oral, Daily, First dose on Mon05/23/24 at 2100take 1 tablet by mouth in the morningcholecalciferol, vitamin D3, 2,000 units tablet Take 1 tablet (2,000 Units total) by mouth in the morning. Activeciprofloxacin 500 mg oral tablet (1 source)Quinolone AntimicrobialStart: 06-29-2024 End: 32-01-3307kqgd 1 tablet by mouth in the morning, [...] 5000 unt/ml injection (1 source)Unfractionated Heparin, Anti-coagulantStart: 06-33-9275qtpjcx 5000 [IU] by subcutaneous injection every eight hours5,000 Units, subcutaneous, Every 8 hours scheduled, First dose on Mon05/22/24 at 0600, Look-alike/sound-alike medication - verify indication for use. Observe for bleeding.hyoscyamine sulfate 0.125 mg sublingual tablet (1 source)Start: 02-11-5683ycgx 1 tablet by mouth every four hours as needed hyoscyamine (LEVSIN) 0.125 mg SL tablet Take 1 tablet (125 mcg total) by mouth every 4 (four) hoursas needed for cramping. 30 tablet 08/08/2024 Active levoFLOXacin 500 mg oral tablet (1 source)Quinolone AntimicrobialStart: 08-08-2024 End: 46-69-1807zvrq 1 tablet by mouth in the morninglevoFLOXacin (LEVAQUIN) 500 mg tablet Take 1 tablet (500 mg total) by mouth in the morning for 5 days. 5 tablet 08/08/2024 08/13/2024 Activemagnesium sulfate IVPB 2000 mg/50 mL in iso- osmotic water (40 mg/mL premix) (1 source)Start: 83-67-5933oqfbnhjaq sulfate IVPB 2000 mg/50 mL in iso-osmotic water (40 mg/mL premix)evpybjvd-opli-AJ-calcium &mins (THERAGRAN-M) 9 mg iron- 400 mcg tablet (15 sources)nfhvclip-tbbp-DK-calcium &mins (THERAGRAN-M) 9 mg iron-400 mcg tablet Take 1 tablet by mouth inthe morning. Nukxpwiniomoek-audy-WD-calcium &mins (THERAGRAN-M) 9 mg iron-400 mcg tablet Take 1 tablet by mouth inthe morning.gptrqqww-pvkx-NA-calcium &mins (THERAGRAN-M) 9 mg iron-400 mcg tablet Take 1 tablet by mouth inthe morning. Nvsacnoraoulcjupx-ygds-WK-calcium &mins (THERAGRAN-M) 9 mg iron-400 mcg tablet 1 tablet (1 source)Start: 90-88-2974gonl 1 tablet by mouth once daily1 tablet, oral, Daily, First dose on Mon05/23/24 at 2537Bcfbwkjd-Yam-Nv-Lycopen-Lutein (Complete Mv Adult 50 Plus) 0.4 mg-300 mcg- 250 mcg tablet (6 sources)Start: 78-50-0263nimv 1 tablet by mouth once daily Mepguazo-Iju-Ns-Lycopen-Lutein (Complete Mv Adult 50 Plus) 0.4 mg-300 mcg- 250 mcg tablet Active 1 TAB PO Daily October 14, 2023 12:00am Complies with drug therapyStart: 16-85-2529cgmm 1 tablet by mouth once dailyStart: 73-38-4555pkqp 1 tablet by mouth once xtpfsOoskuktw-Pkg-Px-Lycopen-Lutein (Complete Mv Adult 50 Plus) 0.4 mg-300 mcg- 250 mcg tablet Active 1 TAB PO Daily October 13, 2023 11:00pmStart: 14-75-9956fxaf 1 tablet by mouth once daily Itsqhjep-Rrw-Ag-Lycopen-Lutein (Complete Mv Adult 50 Plus) 0.4 mg-300 mcg- 250 mcg tablet Active 1 TAB PO Daily October 14, 2023 12:00amMultivitamin Adults 50+ - (4 sources)Multivitamin Adults 50+ - Orally ActiveoxyCODONE hydrochloride 5 mg oral tablet (1 source)Opioid AgonistStart: 52-24-6603kazm 1 tablet by mouth every four hours as needed for pain5 mg, oral, Every 4 hours PRN, severe pain - pain scale 7-10, Starting on Mon05/22/24 at 0827, Look-alike/sound-alike medication - verify indication for use. Immediate release.polyethylene glycol 3350 95008 mg powder for oral solution (1 source)Osmotic LaxativeStart: 75-76-020384 g, oral, Daily PRN, constipation, Starting on Mon05/21/24 at 1333, Look-alike/sound-alike medication - verify indication for use. Dissolve 1 packet (17 gm) in 8 ounces of water, juice, soda, coffee or tea.Potassium Chloride (1 source)Start: 45-64-3406vboclakos chloride (K-TAB,KLOR-CON) CR tablet 20-50 mEqpotassium chloride IVPB 10 mEq/50 mL in water (0.2 mEq/mL premix) (1 source)Start: 64-21-3095tgltghndg chloride IVPB 10 mEq/50 mL in water (0.2 mEq/mL premix)Sodium Chloride (4 sources)Start: 57-38-3802tndt 10 mL intravenously every twelve hourssodium chloride 0.9 % flush 10 mLStart: 05-21-2024 End: mL/hr, intra-arterial, Continuous, Starting on Mon05/21/24 at 1415, For 90 daysStart: 05-21-2024 End: 88-76-6664plza 10 mL intravenously every hour as mL/hr, intravenous, Continuous PRN, to maintain patency of lines, Starting on Mon05/21/24 at 1325, For 1 day, Line #3sodium phosphate 20 mmol in sodium chloride 0.9 % 250 mL IVPB (1 source)Start: 26-55-9275qdsuwx phosphate 20 mmol in sodium chloride 0.9 % 250 mL IVPBSUMAtriptan 25 mg oral tablet (20 sources)Serotonin-1b and Serotonin-1d Receptor AgonistStart: 09-24-2024 Sumatriptan Succinate 25 mg tablet Active 0 .ROUTE .COMPLEX 9 September 24, 2024 1:33pm TAKE 1 TAB AT ONSET OF HEADACHE IF NO RELIEF MAY REPEAT 1 TAB AFTER 2HRS *MAX 4/24HR* Complies with drug therapyStart: 34-50-2552cmdq 1 tablet by mouth once as neededSUMAtriptan (IMITREX) 25 mg tablet Take 1 tablet (25 mg total) by mouth once as needed for migraine. 05/16/2024 ActiveStart: 05-16-2024 End: 22-13-0949jkwc 1 tablet by mouth every two hoursSumatriptan Succinate 25 mg tablet Discontinued 0 PO .COMPLEX 9 May 16, 2024 12:00am September 24, 2024 1:33pm take 1 tab at onset of headache; if no relief may repeat 1 tab after at least 2 hrs; max = 4 tabs/24 hr POterbinafine 250 mg oral tablet (4 sources)Allylamine AntifungalStart: 00-07-7741jznn 1 tablet by mouth every twenty-four hoursTerbinafine HCl 250 MG 1 tablet Orally Once a day for 10 day(s) Jan, ActivetiZANidine 2 mg oral tablet (1 source)Central alpha-2 Adrenergic AgonistStart: 57-66-3327lipv 1 tablet by mouth once daily at [...] MedicationDrug Class(es)DatesSig (Normalized)Sig (Original)500 ml albumin human, alf 50 mg/ml injection (1 source)Human Serum AlbuminStart: [...] oral tablet (6 sources)Macrolide AntimicrobialStart: 05-06-2025 End: 57-76-5107Oywgrtbkwlnm 250 mg tablet Discontinued 0 PO .COMPLEX 6 0 May 06, 2025 12:00am May 20, 2025 10:14am For 250 mg dose pack: take 500 mg today (day 1), then 250 mg for 4 days (days 2-5) POStart: 10-25-2023 End: 87-87-0617Ufhksskhwbsu 250 mg tablet Discontinued 250 MG PO daily 6 5 0 October 25, 2023 12:00am April 10:40am Bronchitis Bronchitis, not specified as acute or chronic Take 2 tablets today and then1 tablet for the next 4 daysbenzonatate 200 mg oral capsule (5 sources)Non-narcotic AntitussiveStart: 10-25-2023 End: 00-06-8186uuhk 1 capsule by mouth three times daily [...] System Stimulant, Ergotamine Derivative, MethylxanthineStart: 10-14-2023 End: 98-50-8684ojsx 1 tablet by mouth once as neededErgotamine-Caffeine 1-100 mg tablet Discontinued 1 TAB PO Once as needed October 14, 2023 12:00am May 16, 2024 12:33pm FreeTextSig: Orally; Note: Source Status: Taking; Provider: aShara Young ( )Start: 21-57-5479dsoo 1 tablet by mouth every eight hours [...] Mon05/21/24 at 2030,For 1 doseStart: 05-21-2024 End: 02-32-8984lmrg 100 mL intravenously every hwgy698 mL/hr, intravenous, Continuous, Starting on Mon05/21/24 at 1345, For 1 daydiclofenac sodium 20 mg/ml topical solution (4 sources)Nonsteroidal Anti-inflammatory DrugStart: 82-50-1301Xdxptetw 2 % 2 applications to affected area Transdermal Twice a day for 30 day(s) Aug, Not-Takingfamotidine 20 mg oral tablet (2 sources)Histamine-2 Receptor AntagonistStart: 05-22-2024 End: 90-76-4946macc 20 mg by mouth once daily20 mg, oral, Daily, First dose (after last modification) on Mon05/22/24 at 1630, Indication: Stress Ulcer ProphylaxisStart: 05-21-2024 End: 25-27-201979 mg, intravenous, Every 24 hours scheduled, First dose (after last modification) on Mon05/21/24 at 1600, Pharmacy to adjust dose based on renal function. Dilute to total volume of 5 mL with 0.9% sod chl and administer IVP over 2 minutes., Indication: Stress Ulcer Prophylaxis1 ml fentaNYL 0.05 mg/ml injection (3 sources)Opioid AgonistStart: 05-21-2024 End: 20-64-672657 mcg, intravenous, Once, On Mon05/21/24 at 2200, For 1 dose, Look-alike/sound-alike medication -verify indication for use.Start: 05-21-2024 End: 33-48-9918yfcc 50 ug intravenously every three hours as pumwhp85 mcg, intravenous, Every 3 hours PRN, breakthrough pain, Starting on Mon05/22/24 at 0047, Look-alike/sound-alike medication - verify indication for use.24 hr fesoterodine fumarate 8 mg extended release oral tablet (20 sources)Start: 27-14-1833nmun 1 tablet by mouth once dailyFesoterodine 8 mg tablet extended release 24 hr Active 0 .ROUTE .COMPLEX June 05, 2024 10:23am TAKE 1 TABLET BY MOUTH EVERY DAYStart: 89-08-5572nqkv 1 tablet by mouth every twenty-four hours in the morningfesoterodine (TOVIAZ) 8 mg tablet extended release 24 hr Indications: urinary urgency Take 1 tablet(8 mg total) by mouth in the morning. Indications: urinary urgency, or the sudden urge to urinate. 0 02/13/2024 ActiveStart: 02-13-2024 End: 98-22-0470bfec 1 tablet by mouth once dailyFesoterodine 8 mg tablet extended release 24 hr Discontinued 0 .ROUTE .COMPLEX February 13, 2024 9:42am June 05, 2024 10:23am TAKE 1 TABLET BY MOUTH EVERY DAYStart: 02-13-2024 take 1 tablet by mouth once dailyFesoterodine Active 0 .ROUTE .COMPLEX February 13, 2024 10:42am TAKE 1 TABLET BY MOUTH EVERY DAYStart: 12-26-2023 End: 12-62-1691prlk 1 tablet by mouth once dailyFesoterodine 8 mg tablet extended release 24 hr Discontinued 0 .ROUTE .COMPLEX 90 June 05, 2024 11:23am October 08, 2024 11:40am TAKE 1 TABLET BY MOUTH EVERY DAYStart: 12-26-2023 End: 80-21-4733dnel 1 tablet by mouth once dailyFesoterodine 8 mg tablet extended release 24 hr Discontinued 0 .ROUTE .COMPLEX December 26, 2023 2:40pm February 13, 2024 9:42am TAKE 1 TABLET BY MOUTH EVERY DAYStart: 12-26-2023 End: 30-97-0317yupc 1 tablet by mouth once dailyFesoterodine Discontinued 0 .ROUTE .COMPLEX December 26, 2023 3:40pm February 13, 2024 10:42am TAKE 1TABLET BY MOUTH EVERY DAYStart: 12-13-2019 End: 55-93-8338quvo 1 tablet by mouth once dailyFesoterodine (Toviaz) 8 mg tablet extended release 24 hr Discontinued 8 MG PO Daily October 14, 2023 12:00am November 27, 2023 8:37amToviaz 8mg Activegabapentin 100 mg oral capsule (7 sources)Anti-epileptic AgentStart: 05-22-2024 End: 49-94-3193jvyj 1 capsule by mouth three times dailyGabapentin 100 mg capsule Discontinued 100 MG PO Three times daily May 30, 2024 1:00am May 20, 2025 10:14amhydroCHLOROthiazide 25 mg oral tablet (20 sources)Thiazide DiureticStart: 12-13-2019 End: 36-90-1393fweh 1 tablet by mouth once dailyHydrochlorothiazide 25 mg tablet Discontinued 25 MG PO Daily October 14, 2023 12:00am August 5:18pm FreeTextSig: TAKE 1 TABLET DAILY; Note: Source Status: Start; Refills: 3; Qty: 90 Tablet; Provider: Sahara Young ( )hydrocortisone 100 mg injection (1 source)CorticosteroidStart: 05-21-2024 End: 88-34-9831xxng 50 mg intravenously every six hours50 mg, intravenous, Every 6 hours, First dose on Mon05/21/24 at 2030, Administer over 30 seconds. May alter blood glucose or insulin requirements. Look-alike/sound-alike medication - verify indication for use.iohexoL (OMNIPAQUE) 300 mg iodine/mL (1 source)Start: 05-21-2024 End: 29-95-0016Se needed, Starting on Mon05/21/24 at 1623, Intra-op10 ml lidocaine hydrochloride 10 mg/ml injection (1 source)Antiarrhythmic, Amide Local AnestheticStart: 05-21-2024 End: 48-32-6032aqiabgdjhrrv, Code/trauma/sedation medication, Starting on Mon05/21/24 at 1614, Intra-opmeloxicam 15 mg oral tablet (20 sources)Nonsteroidal Anti-inflammatory DrugStart: 43-14-9738zgch 15 mg by mouth once daily15 mg, oral, Daily, First dose on Mon05/23/24 at 2100Start: 10-27-2023 End: 94-81-5256Ygbcimsyi 15 mg tablet Discontinued 0 .ROUTE .COMPLEX 90 August 26, 2024 5:17pm February 28, 2025 8:47am TAKE 1 TABLET DAILYStart: 34-46-6461Ouahczpnl 15 mg tablet Active 0 .ROUTE .COMPLEX 90 October 27, 2023 10:00am TAKE 1 TABLET DAILYStart: 52-11-7067Txxjdiuav Active 0 .ROUTE .COMPLEX 90 October 27, 2023 11:00am TAKE 1 TABLET DAILYStart: 12-17-2019 End: 59-36-1533mqid 1 tablet by mouth once dailyMeloxicam 15 mg tablet Discontinued 15 MG PO Daily October 14, 2023 12:00am October 27, 2023 11:00am FreeTextSig: TAKE 1 TABLET DAILY; Note: Source Status: Taking; Refills: 3; Qty: 90 Tablet; Provider: Sahara Young ( )2 ml midazolam 1 mg/ml cartridge (1 source)BenzodiazepineStart: 05-21-2024 End: 39-82-3433roroqpcnypq, Code/trauma/sedation medication, Starting on Mon05/21/24 at 1610, Intra-op24 hr mirabegron 50 mg extended release oral tablet (20 sources)beta3-Adrenergic AgonistStart: 12-13-2019 End: 42-48-6376gskv 1 tablet by mouth once dailyMirabegron 50 [...] oral capsule (9 sources)Nitrofuran AntibacterialStart: 05-17-2024 End: 64-93-0390lcvr 1 capsule by mouth twice daily at [...] Pyxis Override Pull (1 source)Start: 05-21-2024 End: 37-70-3645Uqztfbwb on Mon05/21/24 at 1257, For 1 dose, Jovany Wynne: cabinet override VESICANT (RED) Requires Smart Pump.oxybutynin chloride 5 mg oral tablet (11 sources)Cholinergic Muscarinic AntagonistStart: 10-08-2024 End: 55-60-9608soqw 1 tablet by mouth once dailyOxybutynin Chloride [...] mg oral tablet (6 sources)Start: 10-14-2023 End: 36-12-0794omqo 1 tablet by mouth twice dailyPrednisone 20 mg tablet Discontinued 20 MG PO Twice daily 10 5 0 October 14, 2023 12:00am October 25, 2023 9:34amSUPARTZ FX SODIUM HYALURONATE (20 sources)Start: 20-60-7696IZEPMHS FX SODIUM HYALURONATE Dec, 25Start: 43-91-5028OUAPOCY FX SODIUM HYALURONATE November, 25 mgStart: 12-12-2016 SUPARTZ FX SODIUM HYALURONATE November, 25Start: 63-33-6295TTCKKQT FX SODIUM HYALURONATE November, 25 mgStart: 31-72-1923EHYJCVC FX SODIUM HYALURONATE November, 25 mgtamsulosin hydrochloride 0.4 mg oral capsule (9 sources)alpha-Adrenergic BlockerStart: 06-28-2024 End: 69-77-6091owdw 1 capsule by mouth once dailyTamsulosin 0.4 mg capsule Discontinued 0.4 MG PO Daily August 16, 2024 1:00am May 200:15am Triamcinolone (20 sources)CorticosteroidStart: 51-54-0811Grjwgqv -40 mg Sep, 40 mg Start: 84-52-5809Aokismc -40 mg Mar,Start: 03-15-4261Lqmfpcv -40 mg Sep, 40 mgtrospium chloride 20 mg oral tablet (11 sources)Cholinergic Muscarinic AntagonistStart: 10-08-2024 End: 30-86-3105lnzo 1 tablet by mouth twice dailyTrospium 20 mg tablet Discontinued 20 MG PO Twice daily 180 0 January 03, 2025 9:28am March 31, 2025 8:24am administer on an empty stomachvalACYclovir 500 mg oral tablet (7 sources)Herpesvirus Nucleoside Analog DNA Polymerase Inhibitor, Herpes Simplex Virus Nucleoside Analog DNA Polymerase Inhibitor, Herpes Zoster Virus Nucleoside Analog DNA Polymerase InhibitorStart: 05-25-2024 End: 37-83-6373vsqv 1 tablet by mouth twice dailyValacyclovir 500 [...] of anterior abdominal wall without obstructionAND without gangrene]83-43-1803Jmkpacmi Calculus of urinary tract (20 sources)Kidney stone; Translations: [Calculus of kidney]Onset: 01-16-2024 39-89-2768YtqhlpyeNyrwyqc obstructive pulmonary disease and bronchiectasis (6 sources)Bronchitis; Translations: [Bronchitis, not specified as acute or chronic]35-86-6564EdzbxgwzEdwmndvfjk associated with dizziness or vertigo (2 sources)Postural dizziness; Translations: [Dizziness and giddiness]08-19-2024 EpisodicEssential hypertension (5 sources)Hypertensive disorder; Translations: [Essential (primary) hypertension]47-37-5874RdzmcsgNuhhb and electrolyte disorders (2 sources)Hypokalemia; Translations: [Hypokalemia]Onset: EpisodicGenitourinary symptoms and ill-defined conditions (10 sources)Incontinence; Translations: [Incontinence without sensory awareness] Onset: 927984-01-2950TujahanDzjhlwejrmadp symptoms and ill-defined conditions (9 sources)Microscopic hematuria; Translations: [Nocturia]Onset: 06-07-2016 81-48-3721HdcnwentSeccygar; including migraine (12 sources)Migraine; Translations: [Episodic tension-type headache]12-12-2019 ChronicHeart valve disorders (5 sources)Heart murmur; Translations: [O/E - cardiac murmur]Onset: 08-23-2018 06-99-9213EoycacunFrbbvmwyh (1 source)Influenza due to other identified influenza virus with other respiratory manifestations; Translations: [Influenza with other respiratory manifestations]40-69-9322SfnwzwpxZhzxknkpt disorders (3 sources)Disorder of menstruation; Translations: [Unspecified disorder of menstruation and other abnormal bleeding from female genital tract]Onset: 56-86-0533YgigoriIsuzolsdqprbem (20 sources)Osteoarthritis of knee; Translations: [Unilateral primary osteoarthritis, right knee]ChronicOther circulatory disease (5 sources)Elevated blood-pressure reading without diagnosis of hypertension; Translations: [Elevated blood-pressure reading, without diagnosis of hypertension]Onset: 629817-49-7097AkgynooyVdkfx connective tissue disease (4 sources)Pain in left lower limb; Translations: [Pain in left leg]Episodic Other connective tissue disease (4 sources)Thigh pain; Translations: [Pain in unspecified thigh]EpisodicOther diseases of bladder and urethra (6 sources)Overactive bladder; Translations: [Overactive bladder]05-22-2024 ChronicOther diseases of kidney and ureters (1 source)Kidney disease; Translations: [Other specified disorders of kidney and ureter]95-73-4261BdejgmjSqpji diseases of kidney and ureters (2 sources)Other specified disorders of kidney and ureter; Translations: [Other specified disorders of kidney and ureter]Onset: 88-49-2082ZppwkzrMsezt diseases of kidney and ureters (1 source)Kidney uqcsgmv28-53-6444VppovlcaDqezo nervous system disorders (4 sources)Meralgia paresthetica of left leg; Translations: [Meralgia paresthetica, left lower limb]ChronicOther nervous system disorders (4 sources)Chronic pain; Translations: [Other chronic pain]ChronicOther non- traumatic joint disorders (8 sources)Knee pain; Translations: [Pain in right knee]EpisodicOther nutritional; endocrine; and metabolic disorders (10 sources)Body mass index 40+ - severely obese; Translations: [Body mass index (BMI) 50.0-59.9, adult]Onset: 93-40-5782IeruljeJjofa nutritional; endocrine; and metabolic disorders (5 sources)Disorder of mineral metabolism; 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, unspecified]Onset: 734600-92-9233IpdnlboUgoce nutritional; endocrine; and metabolic disorders (1 source)Disorder of mineral metabolism, unspecified; 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, unspecified]Onset: 49-12-8799MfbwjynRklxb screening for suspected conditions (not mental disorders or infectious disease) (10 sources)Patient encounter status; Translations: [Encounter for screening mammogram for malignant neoplasm of breast]Onset: 194568-71-1301Wkwzlsuj Other upper respiratory infections (6 sources)Acute maxillary sinusitis; Translations: [Acute maxillary sinusitis, unspecified]Onset: 51-31-3018CeckgvqeYgbnnvkvop (except in labor) (20 sources)Septic shock; Translations: [Sepsis, unspecified organism]Onset: 704668-67-5289KfrdpftoFwkxswgrnbx; intervertebral disc disorders; other back problems (4 sources)Spondylosis; Translations: [Other spondylosis, lumbar region]Chronic Spondylosis; intervertebral disc disorders; other back problems (5 sources)Low back pain; Translations: [Low back pain, unspecified]Onset: 190908-24-9734BfxbgnxyWdyirwjwv-qdseexo disorders (3 sources)Tobacco user; Translations: [Nicotine dependence, cigarettes, in remission]ChronicUnclassified (2 sources)Asymptomatic microscopic zfhnanist08-99-5526Bbotugh tract infections (6 sources)Urinary tract infectious disease; Translations: [Urinary tract infection, site not specified]71-37-8022Xtpsgyvg Past or Other Problems Problem ClassificationProblemDateDocumented DateEpisodic/ChronicAbdominal pain (3 sources)Flank pain; Translations: [Unspecified abdominal pain]Onset: 177274-93-5518DaopouwhWsdybaali infection; unspecified site (5 sources)Bacteremia caused by Gram-negative bacteria; Translations: [Bacteremia]Onset: 341007-82-5195SfufylhiOwnz disorders (14 sources)Mood disordersOnset: 05-21-2024 Resolved: 565195-09-7089Urbpu aftercare (3 sources)Surgical follow-up; Translations: [Follow-up examination, following unspecified surgery]Onset: 74-85-4016FkwqjredHeovj female genital disorders (3 sources)Hypertrophy of uterus; Translations: [Hypertrophy of uterus]Onset: 11-30-1350LvbaopcsMthtm non-traumatic joint disorders (3 sources)Arthralgia of the pelvic region and thigh; Translations: [Pain in joint, pelvic region and thigh]Onset: 81-82-8980RcjvmjbkVgcbpjln codes; unclassified (1 source)Pain, unspecified; Translations: [Pain, unspecified]Onset: 05-21-2024 EpisodicShock (2 sources)Severe sepsis with septic shock; Translations: [Severe sepsis with septic shock]Onset: 26-97-0316Aybrderd Results Test NameValueInterpretationReference RangeFacilityUS community outreach [facility] 66-80-9621GK community outreach [facility] [place] [address] Ultrasound Report Signed Patient: Sharri Murillo MR#: [id number] : 1955 Acct:[id number] Age/Sex: 69 / F ADM Date: 04/08/25 [...] Heart MD,FACS,FSVS 04/08/2025 2:09 PM Dictation Location: [place] [address] Tech: Shira Deng Transcribed By: PWS 04/08/25 140 Dictated By: Jovany Heart MD 04/08/25 140 Signed By: 04/08/25 1409[facility] CenterUS community outreach aortaon 72-49-0854ZY [facility] outreach [place] [id number] Ultrasound Report Signed Patient: Sharri Murillo MR#: [id number] : 1955 Acct:[id number] Age/Sex: 69 / F ADM Date: 04/08/25 Loc: Room: Type: [facility] Attending Dr: [facility] Ordering Provider: BHARATHI AVILES Date of Service: 04/08/25 US/US [facility] outreach aorta: SCREENING Copies to: [facility] Aorta screening ultrasound HISTORY: Screening exam Normal caliber abdominal aorta. US/US [facility] outreach aorta IMPRESSION: No abdominal aortic aneurysm. Impression dictated by: Milton Yap M.D. 04/08/2025 3:29 PM Dictation Location: [place] [address] Tech: Lamar Kathleen Transcribed By: PWS 04/08/25 1529 Dictated By: Milton Yap DO 04/08/25 1529 Signed By: 04/08/25 1529[facility] Phys[facility] CenterUS community outreach carotidon 26-57-7228PB community outreach [facility]ST[facility] Main [address] [address] Ultrasound Report Signed Patient: Sharri Murillo MR#: [id number] : 1955 Acct:[id number] Age/Sex: 69 / F ADM Date: 04/08/25 Loc: Room: Type: REG REF Attending Dr: Bharathi Aviles Ordering Provider: BHARATHI AVILES Date of Service: 04/08/25 /[facility] carotid: SCREENING Copies to: [facility] CAROTID DUPLEX INDICATION: [facility] carotid screening program. PROCEDURE: Color-flow [...] the common carotid artery is 0.99 . /[facility] carotid IMPRESSION: NO HEMODYNAMICALLY SIGNIFICANT STENOSIS OF EITHER EXTRACRANIAL INTERNAL CAROTID ARTERY. Impression dictated by: Jovany Heart MD,FACS,FSVS 04/08/2025 2:08 PM Dictation Location: [place] [address] Tech: Lamar Frannie Transcribed By: KAMILAH 04/08/25 1408 Dictated By: Jovany Heart MD 04/08/25 140 Signed By: 04/08/[address] [place] [address] Physician GroupCT UROGRAMon 56-01-9486XK UROGRAMCT UROGRAM History: Renal stone. Pelvic caliectasis. [...] by Car Elliott MD on 12/11/2024 8:22 AMNormalProBaylor Scott And White The Heart Hospital – DentonCREATININE, SERUMon 25-79-6192Gwydanigcp [Mass/Vol]0.59 mg/dLNormal 0.40-1.00ProBaylor Scott And White The Heart Hospital – DentonComment on above:Result Comment: METHOD TRACEABLE TO IDIA STANDARDPerformed By: #### FINISH REPAIRER #### [facility] [address] [place] [address] VIREGFR (CKD-EPI) NON-RACE DEPENDENT>^90Normal>=60K[facility]tering Health Main CampusCommunson healthcare grayling hospital on above:Result Comment: Reported eGFR is based on the CKD-EPI 2020 equation that does not use a race coefficient.Performed By: #### FINISH REPAIRER #### [facility] [address] [place] [address] VIRCreatinine includes GFR, serumon 15-84-2887Nbmvmnjgbq [Mass/Vol]0.59 mg/dL0.40 - 1.00 mg/dLCleveland Clinic Hillcrest HospitalComment on above: METHOD TRACEABLE TO IDMS STANDARDEGFR Non-Race Dependent- [facility] Medical CenterComment on above:Reported eGFR is based on the CKD-EPI 2020 equation that does not use a race coefficient. Interpretation and review of laboratory resultsNormalAurora Health Center Health SystemUS RETROPERITONEAL COMPLETEon 46-67-8662LM RETROPERITONEAL COMPLETEUS RETROPERITONEAL COMPLETE ULTRASOUND RETROPERITONEAL COMPLETE [...] by Lance Calderon MD on 11/13/2024 11:04 [facility] CampusCT ABDOMEN AND PELVIS WO CONTon 40-31-6502KQ ABDOMEN AND PELVIS WO CONT CT ABDOMEN [...] by Aleksandra Gamboa MD on 08/22/2024 12:55 [facility] STONE ANALYSISon 71-60-5777ZGWUUJ COMMENTSee NoteNoPremier Health Miami Valley HospitalComment on above:Result Comment: NOTE For stones containing calcium oxalate, calcium phosphate, and/or uric acid, a 24 hr urinary supersaturation test may help detect underlying risk factors for this type of stone formation and provide guidance for a stone prevention strategy. ADDITIONAL INFORMATION This test was developed and its performance characteristics determined by [facility] in a manner consistent with CLIA requirements. This test has not been cleared or approved by the U.S. Food and Drug Administration. Test Performed by: [facility] [address] [place] [address] Anesthesia Technician: John Pickett Ph.D.; CLIA# [id number]:LEFT KIDNEY STONE NormalProProvidence HospitalComment on above:Result Comment: Corrected on 08/13 AT 1509: Previously reported as LEFT KIDNEY STONEStone Mlpmpwrsgakfls413% Calcium oxalate monohydrate.NormalProProvidence HospitalBacteria identified Cx Nom (U)on 77-54-9944Dteklas comment (Unsp spec) [Interp]<10,000 ORGANISMS/ML NORMAL URO GENITAL FLORAProDayton Children'S Hospital SystemProOhiohealth Hardin Memorial HospitalBASIC METABOLIC PANLon 11-34-3192Tjodm gap [Moles/Vol]7 mmol/LNormal5-15ProProvidence HospitalComment on above:Performed By: #### BERNARD, 95342-6, CMP, 36151-6, 2777-1, CBCA, 23005-3 #### [facility] ([id number]) [address], [address] [place], [place] [address]Kptnlal [Mass/Vol]9.0 mg/dLNormal8.5-10.5PMiddletown HospitalComment on above:Performed By: #### BERNARD, 09799-9, CMP, 50251-6, 2777-1, CBCA, 80604-7 #### [facility] ([id number]) [address], [address] [place], [place] [address]Jbwejuyw [Moles/Vol]101 mmol/ZFmbfes01-808XmyYvvwpb [facility] HospitalComment on above:Performed By: #### BERNARD, 24672-4, CMP, 62179-2, 2777-1, CBCA, 34902-6 #### [facility] ([id number]) [address], [address] [place], [place] [address]CU5 [Moles/Vol]30 mmol/HRikzcg60-97QhpYdtwhy [facility] Comment on above:Performed By: #### PINR, 18769-6, CMP, 83050-2, 2777-1, CBCA, 24961-7 #### [facility] ([id number]) [address], [address] [place], [place] [address]Qamiptmfsz [Mass/Vol]0.68 mg/dLNormal0.40-1.00ProProvidence HospitalComment on above:Result Comment: METHOD TRACEABLE TO IDMS STANDARD Performed By: #### PINR, 82198-5, CMP, 89704-3, 2777-1, CBCA, 36672-1 #### [facility] ([id number]) [address] [address] [place], [place] [address]dODO (CKD-EPI) NON-RACE DEPENDENT>90Normal>59ProProvidence HospitalComment on above:Result Comment: Reported eGFR is based on the CKD-EPI 2020 equation that does not use a race coefficient.Performed By: #### PINR, 12268-3, CMP, 56360-3, 2777- 1, CBCA, 89001-5 #### [facility] ([id number]) [address], [address] [place], [place] [address]Ckxwtkh [Mass/Vol]96 mg/dMWphoyk74-44NmcKhxzsr [facility] Comment on above:Performed By: #### KATLYNR, 14885-1, CMP, 27673-3, 2777-1, CBCA, 94462-9 #### [facility] ([id number]) [address] [place], [place] [address]Fhunaejhp [Moles/Vol]3.6 mmol/LNormal3.5-5.0ProProvidence HospitalComment on above:Performed By: #### PINR, 25200-3, CMP, 13343-7, 2777-1, CBCA, 10651-1 #### [facility] ([id number]) [address], [address] [place], [place] [address]Drjysn [Moles/Vol]138 mmol/NVohrfr382-234RcnDwnsidUK HealthcareComment on above:Performed By: #### PINR, 06499-5, CMP, 19495-0, 2777-1, CBCA, 65433-0 #### [facility] ([id number]) [address], [address] [place], [place] [address]Ibgu nitrogen [Mass/Vol]16 mg/dLNormal5-27ProProvidence HospitalComment on above:Performed By: #### PINR, 09051-8, CMP, 17771-2, 2777-1, CBCA, 04671-2 #### [facility] ([id number]) [address], [address] [place], [place] [address]Lujln Metabolic Panelon 06-38-8085Gbbun gap [Moles/Vol]7 mmol/L5 - 15 mmol/LProMedica Health SystemCalcium [Mass/Vol]9 mg/dL8.5 - 10.5 mg/dL [facility] SystemChloride [Moles/Vol]101 mmol/L98 - 109 mmol/LProMedica Health SystemCO2 [Moles/Vol]30 mmol/L22 - 32 mmol/LProMedica Health System Creatinine [Mass/Vol]0.68 mg/dL0.40 - 1.00 mg/dLCleveland Clinic Hillcrest HospitalComment on above:METHOD TRACEABLE TO IDMS STANDARDeGFR (CKD-EPI)non-race dependent- PINF [facility] Hillcrest HospitalComment on above: Reported eGFR is based on the CKD-EPI 2020 equation that does not use a race coefficient. Glucose [Mass/Vol]96 mg/dL65 - 99 mg/dLWayne Hospital SystemPotassium [Moles/Vol]3.6 mmol/L3.5 - 5.0 mmol/LProMedica Health SystemSodium [Moles/Vol] 138 mmol/L134 - 146 mmol/LProMedica Health SystemUrea nitrogen [Mass/Vol]16 mg/dL5 - 27 mg/dLCleveland Clinic Hillcrest HospitalProDayton Children'S Hospital SystemURINALYSISon 36-56-6617Dfofzrqwy Ql (U)NegativeNormalNEGProMedica Ashraf HospitalComment on above:Performed By: #### PINR, 13429-0, CMP, 32815-3, 2777-1, CBCA, 89820-3 #### [facility] ([id number]) [address], [address] [place], [place] [address]IZWLS/HGBLargeAbnormalNEGProMedica Ashraf HospitalComment on above:Performed By: #### PINR, 10041-4, CMP, 69536-2, 2777-1, CBCA, 44872-5 #### [facility] ([id number]) [address], [address] [place], [place] [address]Gomsr (U)YELLOWNormalYELLOWProMedica Ashraf HospitalComment on above:Performed By: #### PINR, 78830-8, CMP, 26955-8, 2777-1, CBCA, 13832-9 #### [facility] ([id number]) [address], [address] [place], [place] [address]Gtflehx Ql (U)NegativeNormalNEGProMedica Ashraf HospitalComment on above:Performed By: #### PINR, 03087-8, CMP, 66524-5, 2777-1, CBCA, 52519-2 #### [facility] ([id number]) [address], [address] [place], [place] [address]Efrkxfu Ql (U)NegativeNormalNEGProMedica Ashraf HospitalComment on above:Performed By: #### PINR, 42065-3, CMP, 00162-6, 2777-1, CBCA, 29047-1 #### [facility] ([id number]) [address], [address] [place], [place] [address]Wpcfohouk esterase Test strip Ql (U)SmallAbnormalNEGProMedica Ashraf HospitalComment on above:Performed By: #### PINR, 90801-1, CMP, 86171-2, 2777-1, CBCA, 02624-7 #### [facility] ([id number]) [address], [address] [place], [place] [address]XREQSZGLAPRHILuqnnfblECJIMzaHdnvdn [facility] HospitalComment on above:Performed By: #### PINR, 54755-0, CMP, 68235-0, 2777-1, CBCA, 15278-2 #### [facility] ([id number]) [address], [address] [place], [place] [address]Eacnwdf Ql (U)NegativeNormalNEGProMercy Health Defiance Hospitalca Glenbeigh HospitalComment on above:Performed By: #### PINR, 85564-0, CMP, 02201-5, 2777-1, CBCA, 47117-0 #### [facility] ([id number]) [address], [address] [place], [place] [address]wT (U)6.0 [pH]Normal5.0-8.5PRegional Medical Center HospitalComment on above:Performed By: #### PINR, 08899-3, CMP, 42509-3, 2777-1, CBCA, 06662-2 #### [facility] ([id number]) [address], [address] [place], [place] [address]Dpbwzlu Ql (U)50 mg/dLAbnormalNEGProMercy Health Defiance Hospitalca [facility] Comment on above:Performed By: #### PINR, 12680-9, CMP, 16518-6, 2777-1, CBCA, 69004-5 #### [facility] ([id number]) [address], [address] [place], [place] [address]U.B.COUKX572 /hpfHigh0-5PMiddletown HospitalComment on above:Performed By: #### PINR, 10172-9, CMP, 26864-2, 2777-1, CBCA, 91953-5 #### [facility] ([id number]) [address], [address] [place], [place] [address]Qnvkavuo gravity (U) [Rel density]1.863Sgtuij3.003-1.035 Pro[facility]ica Glenbeigh HospitalComment on above:Performed By: #### PINR, 93963-5, CMP, 95479-9, 2777-1, CBCA, 57066-3 #### [facility] ([id number]) [address], [address] [place], [place] [address]UVBSUCQJ EPITHELIUM1 /hpfNormal0-5PRegional Medical Center Hospital Comment on above:Performed By: #### PINR, 72032-7, CMP, 92083-3, 2777-1, CBCA, 56728-3 #### [facility] ([id number]) [address], [address] [place] [address]RGQVNTJGIRAERQshmrgdpDKSZXXuqEckrzs [facility] HospitalComment on above:Performed By: #### PINR, 16809-6, CMP, 16649-7, 2777-1, CBCA, 18890-5 #### [facility] ([id number]) [address], [address] [place] [address]Qjqhxdrfucfs (U) [Mass/Vol]mg/dLNormal<1.1PMiddletown HospitalComment on above:Performed By: #### PINR, 39496-8, CMP, 47166-9, 2777-1, CBCA, 83035-7 #### [facility] ([id number]) [address], [address] [place], [place] [address]U.B.CELLS2 /hpfNormal0-5PMiddletown HospitalComment on above:Performed By: #### PINR, 82009-5, CMP, 31122-0, 2777-1, CBCA, 17376-2 #### [facility] ([id number]) [address], [address] [place], [place] [address]ZTRKU CULTUREon 11-90-7217Bcenyabd identified Cx Nom (U)CULTURE RESULTS <10,000 ORGANISMS/ML NORMAL URO GENITAL FLORAUniversity Hospitals Lake West Medical Center Comment on above:Performed By: #### PINR, 81406-4, CMP, 77623-0, 2777-1, CBCA, 32557-7 #### [facility] ([id number]) [address] [place] [address], [address] [place], [place] [address]Tiesfjjotved 41-83-2987Cakqagkum Ql (U)NegativeNegative^Negative [facility] SystemColor (U)YELLOWYELLOW^YELLOWCleveland Clinic Hillcrest Hospital Epithelial cells Auto (Urine sed) [#/Area]1PKettering Health TroyGlucose (U) [Mass/Vol]NegativeNegative^Negative mg/dLCleveland Clinic Hillcrest HospitalHemoglobin Auto test strip Ql (U)LargeAbnormalNegative^NegativeCleveland Clinic Hillcrest Hospital Interpretation and review of laboratory resultsAbnoUNC Health Lenoir Ketones (U) [Mass/Vol]NegativeNegative^Negative mg/dLCleveland Clinic Hillcrest Hospital Leukocyte esterase Auto test strip Ql (U)SmallAbnormalNegative^NegativeWayne Hospital SystemMucus Ql (Urine sed)PRESENTAbnormalNONE^NONEWayne Hospital SystemNitrite Auto test strip Ql (U)NegativeNegative^NegativeCleveland Clinic Hillcrest HospitalpH (U)6 [pH]5.0 - 8.5PFisher-Titus Medical Center SystemProtein (U) [Mass/Vol]50 mg/dL AbnormalNegative^NegativeCleveland Clinic Hillcrest HospitalRBC Auto (Urine sed) [#/Area]633 Formerly [facility] Beaufort Hospitalpecific gravity Refractometry automated (U) [Rel density]1.0121.003 - 1.035Cleveland Clinic Hillcrest HospitalTurbidity Ql (U)HAZYAbnormal CLEAR^CLEARCleveland Clinic Hillcrest HospitalUrobilinogen Qn (U)NINNorthwest Medical Center WBC Auto (Urine sed) [#/Area]2PUniversity of Wisconsin Hospital and [facility]ics System BASIC METABOLIC PANLon 87-56-9571Nzogx gap [Moles/Vol]12 mmol/LNormal5-15 UK HealthcareComment on above:Performed By: #### PINR, 25565-1, CMP, 43756-4, 2777-1, CBCA, 04659-5 #### [facility] ([id number]) [address], [address] [place], [place] [address]Cvkywvz [Mass/Vol]9.2 mg/dLNormal8.5-10.5ProMedica Ashraf HospitalComment on above:Performed By: #### PINR, 71585-0, CMP, 72473-8, 2777-1, CBCA, 26438-4 #### [facility] ([id number]) [address], [address] [place], [place] [address]Jfswrdyt [Moles/Vol]105 mmol/OXpuowl97-288OzePsgbwh Ashraf HospitalComment on above:Performed By: #### PINR, 52836-1, CMP, 62982-0, 7-1, CBCA, 52730-4 #### [facility] ([id number]) [address], [address] [place], [place] [address]EE4 [Moles/Vol]25 mmol/LElkjan28-46NbhUbfshy [facility] Comment on above:Performed By: #### PINR, 74420-7, CMP, 63500-6, 2777-1, CBCA, 28037-4 #### [facility] ([id number]) [address], [address] [place], [place] [address]Kavkpnulyf [Mass/Vol]0.53 mg/dLNormal0.40-1.00ProMedica Ashraf HospitalComment on above:Result Comment: METHOD TRACEABLE TO IDMS STANDARD Performed By: #### PINR, 05062-8, CMP, 89076-4, 2777-1, CBCA, 63820-3 #### [facility] ([id number]) [address], [address] [place], [place] [address]mNLB (CKD-EPI) NON-RACE DEPENDENT>90Normal>59ProMedica Ashraf HospitalComment on above:Result Comment: Reported eGFR is based on the CKD-EPI 2020 equation that does not use a race coefficient.Performed By: #### PINR, 59631-0, CMP, 36523-0, 2777- 1, CBCA, 99037-1 #### [facility] ([id number]) [address], [address] [place], [place] [address]Yxdlslr [Mass/Vol]105 mg/pIZdth63-98AhxGxktxq [facility] Comment on above:Performed By: #### PINR, 78982-0, CMP, 28858-1, 2777-1, CBCA, 30264-2 #### [facility] ([id number]) [address], [address] [place], [place] [address]Arysancuv [Moles/Vol]3.2 mmol/LLow3.5-5.0ProProvidence HospitalComment on above:Performed By: #### PINR, 34891-2, CMP, 99177-1, 7-1, CBCA, 03963-5 #### [facility] ([id number]) [address], [address] [place], [place] [address]Miczew [Moles/Vol]142 mmol/CJxvavc160-638MnzUrvxqs [facility] HospitalComment on above:Performed By: #### PINR, 18465-7, CMP, 21259-6, 7-1, CBCA, 99165-7 #### [facility] ([id number]) [address], [address] [place], [place] [address]Rfor nitrogen [Mass/Vol]16 mg/dLNormal5-27ProProvidence HospitalComment on above:Performed By: #### PINR, 30770-5, CMP, 76381-5, 2777-1, CBCA, 81672-1 #### [facility] ([id number]) [address], [address] [place], [place] [address]WBTBVBIX BLOOD COUNTon 19-51-6997Lfpsxymmsvw distribution width (RBC) [Ratio]15.3 %High11.5-15.0ProMercy Health Defiance Hospitalca [place] HospitalComment on above: Performed By: #### PINR, 95042-6, CMP, 42222-8, 2777-1, CBCA, 20364-5 #### [facility] ([id number]) [address], [address] [place], [place] [address]Jeqsoohlht (Bld) [Volume fraction]35.5 %Nseqcx25-94IncRztown [facility] HospitalComment on above:Performed By: #### PINR, 52536-2, CMP, 80846-2, 2777-1, CBCA, 96585-6 #### [facility] ([id number]) [address], [address] [place], [place] [address]Gadtwqipez (Bld) [Mass/Vol]12.0 g/jNTomhgt96.7-15.5ProMedica [facility]oria HospitalComment on above:Performed By: #### PINR, 46332-6, CMP, 98318-4, 2777-1, CBCA, 89400-8 #### [facility] ([id number]) [address], [address] [place], [place] [address]VZL (RBC) [Entitic mass]30.8 kuGpesno50-57PpnFnbdcb [facility] HospitalComment on above:Performed By: #### PINR, 97256-6, CMP, 08362-3, 2777-1, CBCA, 54697-3 #### [facility] ([id number]) [address], [address] [place], [place] [address]JCBH (RBC) [Mass/Vol]33.8 g/xLOodmlh46-54UndBchtdc [facility] HospitalComment on above:Performed By: #### PINR, 03804-6, CMP, 26341-9, 2777-1, CBCA, 30331-1 #### [facility] ([id number]) [address], [address] [place] [address]NAR (RBC) [Entitic vol]91 yDErlqet26-727JnnJcyphz [facility] HospitalComment on above:Performed By: #### PINR, 94461-5, CMP, 94723-0, 2777-1, CBCA, 09858-2 #### [facility] ([id number]) [address], [address] [place] [address]Ncfdnfql mean volume (Bld) [Entitic vol]7.2 fLNormal7-12 Pro[facility]ica [facility] HospitalComment on above:Performed By: #### PINR, 95301-2, CMP, 10940-9, 2777-1, CBCA, 90968-0 #### [facility] ([id number]) [address], [address] [place], [place] [address]Fjpihpbnd (Bld) [#/Vol]162 10*3/nEYuwuea953-299ZfySscptm [facility] HospitalComment on above:Performed By: #### PINR, 36229-8, CMP, 69698-2, 2777-1, CBCA, 83888-4 #### [facility] ([id number]) [address], [address] [place], [place] [address]HVX COUNT3.89 X10E12/LNormal3.80-5.20ProL[facility] Comment on above:Performed By: #### PINR, 81319-7, CMP, 70608-2, 2777-1, CBCA, 09023-7 #### [facility] ([id number]) [address], [address] [place], [place] [address]RJW (Bld) [#/Vol]7.9 10*3/uLNormal4.0-11.0ProMercy Health Defiance Hospitalca [place] HospitalComment on above:Performed By: #### PINR, 09512-7, CMP, 52859-1, 2777-1, CBCA, 55845-4 #### [facility] ([id number]) [address] [place], [place] [address]SR UROGRAPHY RETRO OPERATIVE W OR WO KUBon 68-48-3092QF UROGRAPHY RETRO OPERATIVE W OR WO KUBFL UROGRAPHY RETRO OPERATIVE W OR WO KUB FL UROGRAPHY RETRO OPERATIVE W OR WO KUB INDICATION: Kidney stone done in or. FINDINGS: Intraoperative fluoroscopy provided during left ureteral stent placement. No radiologist present during the examination. Reference Air Kerma: 12.5 mGy IMPRESSION: Intraoperative fluoroscopy provided as above. See operative report for additional details. Finalized by Marcsu Nuno MD on 06/28/2024 2:59 PMNormalWyandot Memorial Hospital STONE ANALYSISon [id number] COMMENTSee NoteNormalUK HealthcareComment on above:Result Comment: NOTE For stones containing calcium oxalate, calcium phosphate, and/or uric acid, a 24 hr urinary supersaturation test may help detect underlying risk factors for this type of stone formation and provide guidance for a stone prevention strategy. ADDITIONAL INFORMATION This test was developed and its performance characteristics determined by [facility] in a manner consistent with CLIA requirements. This test has not been cleared or approved by the [place]. Food and Drug Administration. Test Performed by: [place] [address] Anesthesia Technician: John Pickett Ph.D.; CLIA# [id number]:LEFT URETERAL STONENormalProAvita Health System Ontario Hospitalton [id number]% Calcium oxalate monohydrate.NormalProProvidence HospitalBASIC METABOLIC PANLon 06-27-2024 Anion gap [Moles/Vol]11 mmol/LNormal5-15UK HealthcareComment on above:Performed By: #### PINR, 00552-9, CMP, 08297-9, 2777-1, CBCA, 93093-7 #### [facility] ([id number]) [address], [address] [place], [place] [address]Pzpqbkc [Mass/Vol]10.0 mg/dLNormal8.5-10.5PMiddletown HospitalComment on above:Performed By: #### PINR, 82108-8, CMP, 75562-8, 2777-1, CBCA, 45007-6 #### [facility] ([id number]) [address], [address] [place], [place] [address]Svfzskvr [Moles/Vol]102 mmol/DYgwurg99-984WokUsrane Toledo HospitalComment on above:Performed By: #### PINR, 33089-4, CMP, 83517-4, 2777-1, CBCA, 06930-6 #### [facility] ([id number]) [address], [facility] [address] [place], [place] [address]TK8 [Moles/Vol]25 mmol/UEqwhbo93-63EkdMfafvz [facility] Comment on above:Performed By: #### PINR, 05738-3, CMP, 10211-8, 2777-1, CBCA, 75203-2 #### [facility] ([id number]) [address], [facility] [address] [place], [place] [address]Lrxdgfcqss [Mass/Vol]0.61 mg/dLNormal0.40-1.00ProProvidence HospitalComment on above:Result Comment: METHOD TRACEABLE TO IDMS STANDARD Performed By: #### PINR, 26620-2, CMP, 96258-4, 2777-1, CBCA, 99288-6 #### [facility] ([id number]) [address] [place], [place] [address]kUTX (CKD-EPI) NON-RACE DEPENDENT>90Normal>59ProLake County Memorial Hospital - West HospitalComment on above:Result Comment: Reported eGFR is based on the CKD-EPI 2020 equation that does not use a race coefficient.Performed By: #### PINR, 29572-3, CMP, 63823-1, 2777- 1, CBCA, 17745-4 #### [facility] ([id number]) [address], [address] [place], [place] [address]Yumdtkr [Mass/Vol]111 mg/eSLqfd43-88JzdInycpbProvidence Hospital Comment on above:Performed By: #### PINR, 42270-5, CMP, , 2776-07, CBCA, 82191-6 #### [facility] ([id number]) [address], [address] [place], [place] [address]Uwgylswpb [Moles/Vol]3.5 mmol/LNormal3.5-5.0ProLake County Memorial Hospital - West HospitalComment on above:Performed By: #### BERNARD, 47319-0, CMP, , 2776-07, CBCA, 37767-4 #### [facility] ([id number]) [address], [address] [place], [place] [address]Afntbu [Moles/Vol]138 mmol/ZZebbyj739-445DaxEdkdza [place]edo HospitalComment on above:Performed By: #### BERNARD, 33122-8, CMP, , 2776-07, CBCA, 07823-0 #### [facility] ([id number]) [address], [address] [place], [place] [address]Gkrm nitrogen [Mass/Vol]20 mg/dLNormal5-27ProLake County Memorial Hospital - West HospitalComment on above:Performed By: #### PINR, 91625-9, CMP, , 2776-07, CBCA, 43051-8 #### [facility] ([id number]) [address], [address] [place], [place] [address]JFMPFHDI BLOOD COUNTon 41-06-2712Boutlzvbkss distribution width (RBC) [Ratio]16.0 %High11.5-15.0ProLake County Memorial Hospital - West HospitalComment on above: Performed By: #### PINR, 28032-8, CMP, 26055-7, 2777-1, CBCA, 17000-5 #### [facility] ([id number]) [address], [address] [place], [place] [address]Umwljxrkgq (Bld) [Volume fraction]38.2 %Evunuw01-47GerSqkemk [place] HospitalComment on above:Performed By: #### PINR, 26289-6, CMP, 45050-1, 2777-1, CBCA, 00044-9 #### [facility] ([id number]) [address], [address] [place], [place] [address]Fbsvtopurq (Bld) [Mass/Vol]12.8 g/tABpjuma01.7-15.5ProMedica [place] HospitalComment on above:Performed By: #### PINR, 31541-0, CMP, 92003-1, 2777-1, CBCA, 03825-3 #### [facility] ([id number]) [address], [address] [place], [place] [address]AGY (RBC) [Entitic mass]30.5 zlBrkebc43-21TxoFrqqxu [place] HospitalComment on above:Performed By: #### PINR, 76849-4, CMP, 80907-5, 2777-1, CBCA, 84478-1 #### [facility] ([id number]) [address], [address] [place], [place] [address]UMJK (RBC) [Mass/Vol]33.5 g/dTUhleed71-63OghYcyjhb [place] HospitalComment on above:Performed By: #### PINR, 06917-0, CMP, 00064-8, 2777-1, CBCA, 26517-3 #### [facility] ([id number]) [address], [address] [place], [place] [address]QHL (RBC) [Entitic vol]91 uZYthjho58-952XkeYbbufm Ashraf HospitalComment on above:Performed By: #### PINR, 82089-9, CMP, 61028-0, 2777-1, CBCA, 37911-6 #### [facility] ([id number]) [address], [address] [place], [place] [address]Bisnuknf mean volume (Bld) [Entitic vol]7.5 fLNormal7-12 [facility]ica [place] HospitalComment on above:Performed By: #### PINR, 31086-0, CMP, 59103-6, 2777-1, CBCA, 65269-8 #### [facility] ([id number]) [address], [address] [place], [place] [address]Ltohtdzjk (Bld) [#/Vol]213 10*3/jAHkhpvx618-781XmwSqpzow [place] HospitalComment on above:Performed By: #### PINR, 30706-6, CMP, 22312-4, 2777-1, CBCA, 23763-4 #### [facility] ([id number]) [address], [address] [place], [place] [address]LIV COUNT4.20 X10E12/LNormal3.80-5.20ProL[facility] Comment on above:Performed By: #### PINR, 23213-6, CMP, 09769-6, 2777-1, CBCA, 61711-7 #### [facility] ([id number]) [address], [address] [place], [place] [address]ZDF (Bld) [#/Vol]9.9 10*3/uLNormal4.0-11.0ProMedica [place] HospitalComment on above:Performed By: #### PINR, 70706-4, CMP, 76325-6, 2777-1, CBCA, 99301-9 #### [facility] ([id number]) [address], [address] [place], [place] [address]NUDDFDMJWWyw 00-24-7204Bbzqkycat Ql (U)NegativeNormalNEG [facility] Community HospitalComment on above:Performed By: #### UA #### [facility] ([id number]) [address], [address] [place], [place] [address]VRFOB/HGBNegativeNormalNEGProBaylor Scott And White The Heart Hospital – DentonComment on above:Performed By: #### UA #### [facility] ([id number]) [address], [address] [place], [place] [address]Lnabk (U)YELLOWNormalYELLOWProBaylor Scott And White The Heart Hospital – DentonComment on above:Performed By: #### UA #### [facility] ([id number]) [address], [address] [place], [place] [address]Clqpmks Ql (U)NegativeNormalNEGProBaylor Scott And White The Heart Hospital – DentonCommunson healthcare [facility] on above:Performed By: #### UA #### [facility] ([id number]) [address], [address] [place], [place] [address]Imvapdt Ql (U)NegativeNormalNEGProBaylor Scott And White The Heart Hospital – DentonCommunson healthcare grayling hospital on above:Performed By: #### UA #### [facility] ([id number]) [address] [place], [place] [address]Ikenlzjow esterase Test strip Ql (U)SmallAbnormalNEGProBaylor Scott And White The Heart Hospital – DentonCommunson healthcare [facility] on above:Performed By: #### UA #### [facility] ([id number]) [address], [address] [place], [place] [address]DDYXRLHSCBPJNPhztawhlSCESIohLbbtba [facility] HospitalCommunson healthcare [facility] on above:Performed By: #### UA #### [facility] ([id number]) [address], [address] [place], [place] [address]Psdryvy Ql (U)NegativeNormalNEGProBaylor Scott And White The Heart Hospital – DentonComment on above:Performed By: #### UA #### [facility] ([id number]) [address], [address] [place], [place] [address]xU (U)6.5 [pH]Normal5.0-8.5PTriHealthComment on above:Performed By: #### UA #### [facility] ([id number]) [address], [address] [place], [place] [address]Houljdn Ql (U)NegativeNormalNEGProBaylor Scott And White The Heart Hospital – DentonComment on above:Performed By: #### UA #### [facility] ([id number]) [address] [place], [place] [address]L.B.CELLS1 /hpfNormal0-5PTriHealthComment on above:Performed By: #### UA #### [facility] ([id number]) [address] [place], [place] [address]Tsvhlhis gravity (U) [Rel density]1.519Szkfml3.003-1.035 [facility] Main CampusComment on above:Performed By: #### UA #### [facility] ([id number]) [address] [place], [place] [address]RGZIAFJS EPITHELIUM4 /hpfNormal0-5PTriHealth Comment on above:Performed By: #### UA #### [facility] ([id number]) [address], [address] [place], [place] [address]YORJXXWRHJUMMMJlvuloHLWXIBaySkdjhz [facility]remont HospitalComment on above:Performed By: #### UA #### [facility] ([id number]) [address], [address] [place], [place] [address]Rjuwgcwnyfnb (U) [Mass/Vol]mg/dLNormal<1.1PTriHealthComment on above:Performed By: #### UA #### [facility] ([id number]) [address], [address] [place], [place] [address]Y.B.CELLS6 /hpfHigh0-5PTriHealthComment on above:Performed By: #### UA #### [facility] ([id number]) [address], [address] [place], [place] [address]JOXFO CULTUREon 70-93-4356Jzhqlgfy identified Cx Nom (U)CULTURE RESULTS <10,000 ORGANISMS/ML NORMAL URO GENITAL FLORANormalProMedica San Antonio Community Hospital Comment on above:Performed By: #### 630-4 #### [facility] ([id number]) [address] [place], [place] [address]Eyednrdrm Auto (Bld) [#/Vol]on 33-80-8815Cyqlbttev (Bld) [#/Vol] Automated basophil count0.0-0.1FAdena Health SystemBasophils/100 WBC Auto (Bld)on 25-20-0788Vxzevkwtv/100 WBC (Bld)Automated basophil %0.2-2.0 [facility] HospitalEosinophils/100 WBC Auto (Bld)on 05-30-2024 Eosinophils/100 WBC (Bld)Automated eosinophil %0.9-7.0[facility] HospitalErythrocyte distribution width Auto (RBC) [Ratio]on 45-68-9638Rnhrhovibck distribution width (RBC) [Ratio]Erythrocyte distribution width [Ratio] by Automated count11.0-15.0[facility] HospitalEstimated glomerular filtration rate (GFR) non- Americanon 07-82-8146KHP/1.73 sq M.predicted among non-blacks MDRD (S/P/Bld) [Vol rate/Area]Estimated glomerular filtration rate (GFR) non->=60 mL/min/1.73m 2FAdena Health SystemGlobulin Calc (S) [Mass/Vol]on 72-80-6270Jdsfnezd (S) [Mass/Vol]Serum globulin measurement by calculation (mass/volume)[facility] HospitalHematocrit Auto (Bld) [Volume fraction]on 22-24-3204Obruwuimnw (Bld) [Volume fraction]Hematocrit [Volume Fraction] of Blood by Automated count 36.0-48.0[facility] HospitalHemoglobin [Mass/volume] in Bloodon 11-22-6855Vpbfcvkivh (Bld) [Mass/Vol]Hemoglobin [Mass/volume] in Blood12.0-16.0 [facility] HospitalLaboratory - Chemistry and Chemistry - challengeon 74-70-3406Trqjtmb [Mass/Vol]3.0 g/dLLow3.4-5.0[facility] HospitalALP [Catalytic activity/Vol]130 U/VGbpm14-627RkqreijwpBlanchard Valley Health System Bluffton HospitalALT [Catalytic activity/Vol]62 U/LYzwy53-58BrtiirapyBlanchard Valley Health System Bluffton HospitalAST [Catalytic activity/Vol]33 U/U89-92VygmpfgfhBlanchard Valley Health System Bluffton HospitalBilirubin [Mass/Vol]0.4 mg/dL0.2-1.0[facility] Calcium [Mass/Vol]9.8 mg/dL8.5-10.1FAdena Health SystemChloride [Moles/Vol]102 mmol/O51-077NpopyjbopBlanchard Valley Health System Bluffton HospitalCO2 [Moles/Vol]27.9 mmol/L21.0-32.0[facility] HospitalCreatinine [Mass/Vol]0.88 mg/dL 0.55-1.02[facility] HospitalGFR/1.73 sq M.predicted MDRD (S/P/Bld) [Vol rate/Area]mL/min/{1.73_m2}>=60 mL/min/1.73m 2FAdena Health SystemGlucose [Mass/Vol]99 mg/nZ40-842NepkvsriwBlanchard Valley Health System Bluff[facility] HospitalPotassium [Moles/Vol]4.2 mmol/L3.5-5.1FAdena Health SystemProtein [Mass/Vol] 7.7 g/dL6.4-8.2FBrecksville VA / Crille Hospitalodium [Moles/Vol]140 mmol/L 136-145[facility] HospitalUrea nitrogen [Mass/Vol]14.0 mg/dL 7.0-18.0[facility] HospitalUrea nitrogen/Creatinine [Mass ratio] 15.9 mg/mgBlanchard Valley Health System Bluffton HospitalLaboratory - Hematology and Cell countson 81-58-6118Wrhheprx granulocytes/100 WBC (Bld)0.5 %0.0-0.5FAdena Health SystemLeukocytes [#/volume] corrected for nucleated erythrocytes in Blood by Automated counon 44-41-6731YJA corrected for nucl RBC Auto (Bld) [#/Vol]Leukocytes [#/volume] corrected for nucleated erythrocytes in Blood by Automated coun4.0-11.0[facility] HospitalLymphocytes Auto (Bld) [#/Vol]on 68-70-2638Ujhfwkucwaa (Bld) [#/Vol]Lymphocytes [#/volume] in Blood by Automated count1.2-3.8[facility] HospitalLymphocytes/100 WBC Auto (Bld)on 42-19-3664Exezbrouefk/100 WBC (Bld)Lymphocytes/100 leukocytes in Blood by Automated count20.5-60.0[facility] HospitalH Auto (RBC) [Entitic mass]on 47-09-2111NPU (RBC) [Entitic mass]MCH [Entitic mass] by Automated count26.7-34.0[facility] HospitalMCHC Auto (RBC) [Mass/Vol]on 09-01-5433ZVYD (RBC) [Mass/Vol]MCHC [Mass/volume] by Automated count29.9-35.2FAdena Health SystemMCV Auto (RBC) [Entitic vol]on 51-01-5928LJM (RBC) [Entitic vol]MCV [Entitic volume] by Automated count 81.0-99.0[facility] HospitalMonocytes Auto (Bld) [#/Vol]on 86-72-6676Proxabwxh (Bld) [#/Vol]Automated blood monocyte count0.3-0.8[facility] HospitalMonocytes/100 WBC Auto (Bld)on 05-92-8108Kqarvkwej/100 WBC (Bld)Automated monocyte %1.7-12.0[facility] Neutrophils Auto (Bld) [#/Vol]on 18-85-4881Nqsqxwflvuy (Bld) [#/Vol]Neutrophils [#/volume] in Blood by Automated count1.4-6.5FAdena Health System Neutrophils/100 WBC Auto (Bld)on 35-77-8492Pmvznexgwmb/100 WBC (Bld)Automated neutrophil %43.0-75.0[facility] HospitalNo Panel Informationon 33-95-1747Unvjgginqwq # (Auto)0.1 10 3/uL0.0-0.7FAdena Health SystemImmature Granulocyte # (Auto)0.05 10 3/uLHigh0.00-0.03[facility] HospitalPlatelet mean volume Auto (Bld) [Entitic vol]on 41-63-4604Aovkikmc mean volume (Bld) [Entitic vol]Platelet mean volume [Entitic volume] in Blood by Automated count9.5-13.5FAdena Health SystemPlatelets Auto (Bld) [#/Vol]on 04-95-4975Tyallqztk (Bld) [#/Vol]Platelets [#/volume] in Blood by Automated qwzyf883-027FrxwsstcvBlanchard Valley Health System Bluffton HospitalRBC Auto (Bld) [#/Vol]on 59-82-4754RQQ (Bld) [#/Vol]Erythrocytes [#/volume] in Blood by Automated count Low4.20-5.40Brecksville VA / Crille Hospitalerum or plasma albumin/globulin mass ratioon 33-81-0900Prkkwcw/Globulin [Mass ratio]Serum or plasma albumin/globulin mass ratioBrecksville VA / Crille Hospitalerum or plasma anion gap determinationon 80-80-7104Ohcqo gap [Moles/Vol]Serum or plasma anion gap determinationBlanchard Valley Health System Bluffton HospitalBASIC METABOLIC PANLon 07-67-0164Hdtae gap [Moles/Vol]8 mmol/LNormal5-15[facility] Comment on above:Performed By: #### PINR, 57397-2, CMP, 70341-4, 2777-1, CBCA, 83796-2 #### [facility] ([id number]) [address], [address] [place], [place] [address]Aaswwxm [Mass/Vol]8.2 mg/dLLow8.5-10.5PMiddletown Hospital Comment on above:Performed By: #### PINR, 22399-9, CMP, 63124-8, 7-1, CBCA, 96136-4 #### [facility] ([id number]) [address], [address] [place], [place] [address]Lggydnid [Moles/Vol]104 mmol/ALfhjed54-533OngHdpynh [place] HospitalComment on above:Performed By: #### PINR, 23514-2, CMP, 92413-9, 7-1, CBCA, 52492-5 #### [facility] ([id number]) [address], [address] [place], [place] [address]VM3 [Moles/Vol]26 mmol/JCcrwct25-42VekExnvxgMiddletown Hospital Comment on above:Performed By: #### BERNARD, 42870-4, CMP, 00179-6, 7-1, CBCA, 71336-6 #### [facility] ([id number]) [address], [address] [place], [place] [address]Lbuqsdsoej [Mass/Vol]0.71 mg/dLNormal0.40-1.00ProProvidence HospitalComment on above:Result Comment: METHOD TRACEABLE TO IDMS STANDARD Performed By: #### BERNARD, 73435-7, CMP, 11841-4, 7-1, CBCA, 06276-3 #### [facility] ([id number]) [address], [address] [place], [place] [address]qUBU (CKD-EPI) NON-RACE DEPENDENT>90Normal>59ProProvidence HospitalComment on above:Result Comment: Reported eGFR is based on the CKD-EPI 2020 equation that does not use a race coefficient.Performed By: #### PINR, 15873-8, CMP, 97025-4, 7- 1, CBCA, 52915-7 #### [facility] ([id number]) [address], [address] [place], [place] [address]Gcjnocy [Mass/Vol]101 mg/iGIvar33-49DxnBdqwirUK Healthcare Comment on above:Performed By: #### PINR, 00459-0, CMP, 88685-7, 2777-1, CBCA, 63996-4 #### [facility] ([id number]) [address], [address] [place] [address]Winlnlsyn [Moles/Vol]4.4 mmol/LNormal3.5-5.0ProProvidence HospitalComment on above:Result Comment: SPECIMEN HEMOLYZED, RESULTS INCREASED MODERATELY HEMOLYZEDPerformed By: #### PINR, 99054-2, CMP, 80949-3, 2777-1, CBCA, 94675-0 #### [facility] ([id number]) [address], [address] [place] [address]Qkmwcg [Moles/Vol]138 mmol/HErhuqm036-519BepAvnfbt [place] HospitalComment on above:Performed By: #### PINR, 85187-7, CMP, 74462-4, 2777-1, CBCA, 58488-0 #### [facility] ([id number]) [address], [facility] [address] [place], [place] [address]Amtq nitrogen [Mass/Vol]19 mg/dLNormal5-27ProProvidence HospitalComment on above:Performed By: #### PINR, 95222-2, CMP, 58098-3, 2777-1, CBCA, 83056-6 #### [facility] ([id number]) [address], [address] [place], [place] [address]Qnkvl Metabolic Panelon 92-75-9600Pakbe gap [Moles/Vol]8 mmol/L5 - 15 mmol/LProMedica Health SystemCalcium [Mass/Vol]8.2 mg/dLLow8.5 - 10.5 mg/dLProMedica Health SystemChloride [Moles/Vol]104 mmol/L98 - 109 mmol/L [facility] Health SystemCO2 [Moles/Vol]26 mmol/L22 - 32 mmol/LProMedica Health SystemCreatinine [Mass/Vol]0.71 mg/dL0.40 - 1.00 mg/dLCleveland Clinic Hillcrest Hospital Comment on above:METHOD TRACEABLE TO IDIA STANDARDeGFR (CKD-EPI)non-race dependent- [facility] Medical CenterComment on above: Reported eGFR is based on the CKD-EPI 2020 equation that does not use a race coefficient. Glucose [Mass/Vol]101 mg/zTOihd77 - 99 mg/dLCleveland Clinic Hillcrest Hospital Interpretation and review of laboratory resultsAbnormalCleveland Clinic [facility] Potassium [Moles/Vol]4.4 mmol/L3.5 - 5.0 mmol/[facility] HospitalComment on above:SPECIMEN HEMOLYZED, RESULTS INCREASED MODERATELY HEMOLYZED Sodium [Moles/Vol]138 mmol/L134 - 146 mmol/[facility] HospitalUrea nitrogen [Mass/Vol]19 mg/dL5 - 27 mg/dLCleveland Clinic Hillcrest HospitalCBC AND AUTO DIFFon 56-13-8908Iligcijmfjo (Bld) [#/Vol]0.5 10*3/uLHigh0.0-0.4UK HealthcareComment on above:Performed By: #### BERNARD, 20937-0, CMP, 48530-4, 2777-1, CBCA, 53289-5 #### [facility] ([id number]) [address], [address] [place], [place] [address]Guiyozwjwaf/100 WBC (Bld)4.8 %NormalUK Healthcare Comment on above:Performed By: #### PINR, 69477-3, CMP, 81202-0, 2777-1, CBCA, 37887-0 #### [facility] ([id number]) [address], [address] [place], [place] [address]Zbsuxsethvv distribution width (RBC) [Ratio]15.0 %Normal 11.5-15.0UK HealthcareComment on above:Performed By: #### PINR, 51396-3, CMP, 69547-3, 2777-1, CBCA, 35768-2 #### [facility] ([id number]) [address], [address] [place], [place] [address]Hwpakftsaw (Bld) [Volume fraction]35.1 %Axjroz81-11YfvPwmjxl [place] HospitalComment on above:Performed By: #### PINR, 00437-7, CMP, 14717-9, 2777-1, CBCA, 08429-7 #### [facility] ([id number]) [address], [address] [place], [place] [address]Dpvtngslwv (Bld) [Mass/Vol]12.2 g/jGRmckiq09.7-15.5ProMedTuscarawas Hospital HospitalComment on above:Performed By: #### PINR, 47279-3, CMP, 69605-7, 2777-1, CBCA, 35779-8 #### [facility] ([id number]) [address], [address] [place], [place] [address]Eupqjcquxez (Bld) [#/Vol]3.9 10*3/uLHigh1.0-3.5ProMedTuscarawas Hospital HospitalComment on above:Performed By: #### PINR, 65964-1, CMP, 34813-1, 2777-1, CBCA, 28405-5 #### [facility] ([id number]) [address], [address] [place], [place] [address]Ahjxwmkyxfi/100 WBC (Bld)39.4 %NormalProLake County [facility] Comment on above:Performed By: #### PINR, 12705-0, CMP, 46769-1, 2777-1, CBCA, 71818-9 #### [facility] ([id number]) [address], [address] [place], [place] [address]WRM (RBC) [Entitic mass]30.3 jgCovjbp26-36XncKdipit [place] HospitalComment on above:Performed By: #### PINR, 03380-7, CMP, 77726-1, 2777-1, CBCA, 31410-7 #### [facility] ([id number]) [address], [address] [place], [place] [address]TUXE (RBC) [Mass/Vol]34.6 g/lDUefwpk36-00KllFjswaq [facility]raf HospitalComment on above:Performed By: #### PINR, 06060-1, CMP, 04330-3, 2777-1, CBCA, 06026-2 #### [facility] ([id number]) [address], [address] [place], [place] [address]PZJ (RBC) [Entitic vol]88 hVGhjfqy22-829IepEolylz [facility] HospitalComment on above:Performed By: #### PINR, 87664-7, CMP, 67218-9, 2777-1, CBCA, 97154-3 #### [facility] ([id number]) [address], [address] [place], [place] [address]Zxbrbabjq (Bld) [#/Vol]0.4 10*3/uLNormal0-0.9ProMedica Ashraf HospitalComment on above:Performed By: #### PINR, 79673-8, CMP, 10167-1, 2777-1, CBCA, 95457-8 #### [facility] ([id number]) [address], [address] [place], [place] [address]Hfjkbjycn/100 WBC (Bld)3.8 %NormalProMedica Peoria Hospital Comment on above:Performed By: #### PINR, 57517-9, CMP, 84451-6, 2777-1, CBCA, 88970-7 #### [facility] ([id number]) [address], [address] [place], [place] [address]SSQTCGFIV8.0 %NormalProMedica Ashraf HospitalComment on above: Performed By: #### PINR, 60719-7, CMP, 65107-4, 2777-1, CBCA, 95742-3 #### [facility] ([id number]) [address], [address] [place], [place] [address]Jfdhlmuitvt (Bld) [#/Vol]5.0 10*3/uLNormal1.5-6.6Pro[facility]ica [facility] HospitalComment on above:Performed By: #### PINR, 41152-4, CMP, 61226-1, 2777-1, CBCA, 90904-3 #### [facility] ([id number]) [address], [address] [place], [place] [address]Tqfjjfbj mean volume (Bld) [Entitic vol]8.4 fLNormal7-12 [facility] HospitalComment on above:Performed By: #### PINR, 00677-0, CMP, 30804-6, 2777-1, CBCA, 32901-7 #### [facility] ([id number]) [address], [address] [place], [place] [address]Bheoetwzh (Bld) [#/Vol]137 10*3/wKGir587-134OogRrytsj Peoria HospitalComment on above:Performed By: #### PINR, 11374-5, CMP, 36973-4, 2777-1, CBCA, 28188-1 #### [facility] ([id number]) [address], [address] [place], [place] [address]GEX COUNT4.01 X10E12/LNormal3.80-5.20[facility] Comment on above:Performed By: #### PINR, 65407-2, CMP, 85147-4, 2777-1, CBCA, 93010-8 #### [facility] ([id number]) [address], [address] [place], [place] [address]TJW morphology finding Nom (Bld)NORMALNormalProMedica Peoria HospitalComment on above:Performed By: #### PINR, 78019-4, CMP, 06008-5, 2777-1, CBCA, 09084-0 #### [facility] ([id number]) [address], [address] [place], [place] [address]DRR FVKWYVJMMX57.0 %NormalProProvidence HospitalComment on above:Performed By: #### PINR, 94338-4, CMP, 42224-0, 2777-1, CBCA, 30978-9 #### [facility] ([id number]) [address], [address] [place], [place] [address]XSW (Bld) [#/Vol]9.8 10*3/uLNormal4.0-11.0UK HealthcareComment on above:Performed By: #### PINR, 03345-6, CMP, 71511-3, 2777-1, CBCA, 95376-3 #### [facility] ([id number]) [address], [address] [place], [place] [address]HBI auto differentialon 32-25-3722Tobjeaoqinj (Bld) [#/Vol]0.5 10*3/uLWythe County Community HospitalEosinophils/100 WBC (Bld)4.8 %[facility] HospitalErythrocyte distribution width (RBC) [Ratio]15 %11.5 - 15.0 %[facility] HospitalHematocrit (Bld) [Volume fraction]35.1 %35 - 47 %[facility] HospitalHemoglobin (Bld) [Mass/Vol]12.2 g/dL11.7 - 15.5 g/dLCleveland Clinic Hillcrest HospitalInterpretation and review of laboratory resultsAbnormalCleveland Clinic Hillcrest HospitalLymphocytes (Bld) [#/Vol]3.9 10*3/uLWythe County Community Hospital Lymphocytes/100 WBC (Bld)39.4 %[facility] Medical CenterH (RBC) [Entitic mass] 30.3 pg27 - 34 [facility] CenterMCHC (RBC) [Mass/Vol]34.6 g/dL32 - 36 g/dLCleveland Clinic Hillcrest HospitalMCV (RBC) [Entitic vol]88 fL80 - 100 [facility] HospitalMonocytes (Bld) [#/Vol]0.4 10*3/uLCleveland Clinic Hillcrest Hospital Monocytes/100 WBC (Bld)3.8 %[facility] HospitalMyelocytes/100 WBC (Bld)1 % [facility] HospitalNeutrophils (Bld) [#/Vol]5 10*3/uLCleveland Clinic Hillcre[facility] Hospital Platelet mean volume (Bld) [Entitic vol]8.4 fL7 - 12 [facility] Platelets (Bld) [#/Vol]137 10*3/uLLowCleveland Clinic Hillcrest HospitalPolymorphonuclear cells/100 WBC (Bld)NORMALProOhiohealth Hardin Memorial HospitalRBC (Bld) [#/Vol]4.01 10*6/uL [facility]pl[facility] Hospitalegmented neutrophils/100 WBC (Bld)51 %[facility] HospitalWBC corrected for nucl RBC Auto (Bld) [#/Vol]9.8[facility] Medical Center-PhiladelphiaMAGNESIUMon 72-67-8709Awzyourea [Mass/Vol]1.8 mg/dLNormal 1.8-2.6UK HealthcareComment on above:Performed By: #### BERNARD, 50706- 9, CMP, 95157-4, 2777-1, CBCA, 84774-8 #### [facility] ([id number]) [address], [address] [place], [place] [address]Lxerfuoxhkq 88-09-4137Dqovbwfft [Mass/Vol]1.8 mg/dL1.8 - 2.6 mg/dLCleveland Clinic Hillcrest HospitalNo Panel Informationon 23-73-2996OpnEalwjlKettering Health TroyBASIC METABOLIC PANLon 42-33-7476Hfiul gap [Moles/Vol]10 mmol/LNormal5-15 UK HealthcareComment on above:Performed By: #### PINR, 58223-9, CMP, 44408-9, 2777-1, CBCA, 17034-4 #### [facility] ([id number]) [address] [place], [place] [address]Mfngqtn [Mass/Vol]8.9 mg/dLNormal8.5-10.5PMiddletown HospitalComment on above:Performed By: #### BERNARD, 44016-1, CMP, 29209-5, 2777-1, CBCA, 87593-4 #### [facility] ([id number]) [address], [address] [place] [address]Ocqklnjt [Moles/Vol]105 mmol/JNylqkc15-713HqrXyctni [place] HospitalComment on above:Performed By: #### BERNARD, 52111-0, CMP, 64806-6, 2777-1, CBCA, 53270-8 #### [facility] ([id number]) [address], [address] [place], [place] [address]VU1 [Moles/Vol]26 mmol/ANrkpne77-59KisEgzjex [facility] Comment on above:Performed By: #### BERNARD, 82428-4, CMP, 76805-7, 7-1, CBCA, 17969-9 #### [facility] ([id number]) [address], [address] [place], [place] [address]Dibgywiigq [Mass/Vol]0.79 mg/dLNormal0.40-1.00ProProvidence HospitalComment on above:Result Comment: METHOD TRACEABLE TO IDMS STANDARD Performed By: #### BERNARD, 93705-3, CMP, 02765-7, 7-1, CBCA, 86609-5 #### [facility] ([id number]) [address], [address] [place], [place] [address]TKV/1.73 sq M.predicted among non-blacks MDRD (S/P/Bld) [Vol rate/Area]82 mL/min/{1.73_m2}Normal>59ProProvidence HospitalComment on above: Result Comment: Reported eGFR is based on the CKD-EPI 2020 equation that does not use a race coefficient.Performed By: #### PINR, 95228-0, CMP, 67894-7, 2777- 1, CBCA, 37303-6 #### [facility] ([id number]) [address], [address] [place], [place] [address]Bsqarse [Mass/Vol]89 mg/iYPygqwa38-38PukCsoiwr [facility] Comment on above:Performed By: #### PINR, 01210-7, CMP, 47294-8, 2777-1, CBCA, 02390-9 #### [facility] ([id number]) [address], [address] [place], [place] [address]Tjprgdbdh [Moles/Vol]3.7 mmol/LNormal3.5-5.0ProMercy Health Defiance Hospitalca [place] HospitalComment on above:Performed By: #### PINR, 66824-4, CMP, 26198-4, 7-1, CBCA, 07085-1 #### [facility] ([id number]) [address], [address] [place], [place] [address]Xilwfb [Moles/Vol]141 mmol/KOiwizo976-357ApkPvsxsm [place] HospitalComment on above:Performed By: #### PINR, 29161-3, CMP, 21760-3, 7-1, CBCA, 36418-6 #### [facility] ([id number]) [address], [address] [place], [place] [address]Sujp nitrogen [Mass/Vol]26 mg/dLNormal5-27ProLake County Memorial Hospital - West HospitalComment on above:Performed By: #### PINR, 57660-5, CMP, 86157-3, 2777-1, CBCA, 49145-5 #### [facility] ([id number]) [address], [address] [place], [place] [address]Mcgzo Metabolic Panelon 28-34-4947Jgilv gap [Moles/Vol]10 mmol/L 5 - 15 mmol/LProMedjohn a. andrew memorial hospital Health SystemCalcium [Mass/Vol]8.9 mg/dL8.5 - 10.5 mg/dL ProMRegions Hospital SystemChloride [Moles/Vol]105 mmol/L98 - 109 mmol/[facility] SystemCO2 [Moles/Vol]26 mmol/L22 - 32 mmol/[facility] Creatinine [Mass/Vol]0.79 mg/dL0.40 - 1.00 mg/dLCleveland Clinic Hillcrest HospitalComment on above:METHOD TRACEABLE TO IDMS STANDARDeGFR (CKD-EPI)non-race kwspwwswi03- [facility] Medical CenterComment on above: Reported eGFR is based on the CKD-EPI 2020 equation that does not use a race coefficient. Glucose [Mass/Vol]89 mg/dL65 - 99 mg/dLCleveland Clinic Hillcrest HospitalPotassium [Moles/Vol]3.7 mmol/L3.5 - 5.0 mmol/[facility] SystemSodium [Moles/Vol] 141 mmol/L134 - 146 mmol/[facility] SystemUrea nitrogen [Mass/Vol]26 mg/dL5 - 27 mg/dLCleveland Clinic Hillcrest HospitalCBC AND AUTO DIFFon 36-21-6915DTWOIBME BASOPHIL0.0 X10E9/LNormal0.0-0.2PMiddletown HospitalComment on above: Performed By: #### BERNARD, 31474-8, ELROY, , 2776-, CBCA, 19821-5 #### [facility] ([id number]) [address], [address] [place], [place] [address]NIVEEDSS SLEPUXQUKX48.4 X10E9/LHigh1.5-6.6ProProvidence HospitalComment on above:Performed By: #### BERNARD, 57873-8, CMP, 75216-6, 2776-1, CBCA, 12574-3 #### [facility] ([id number]) [address] [place], [place] [address]Ifmdfnfnn/100 WBC (Bld)0.3 %NormalUK Healthcare Comment on above:Performed By: #### BERNARD, 35012-9, CMP, , 2777-1, CBCA, 19252-9 #### [facility] ([id number]) [address], [address] [place], [place] [address]Emralrldpwf (Bld) [#/Vol]0.2 10*3/uLNormal0.0-0.4ProMedica Peoria HospitalComment on above:Performed By: #### BERNARD, 95361-7, CMP, 46140-6, 2776-, CBCA, 03461-3 #### [facility] ([id number]) [address], [address] [place], [place] [address]Rptnlakkriz/100 WBC (Bld)1.6 %NormalProLake County Memorial Hospital - West Hospital Comment on above:Performed By: #### BERNARD, 68524-4, CMP, 97604-5, 2776-, CBCA, 40056-7 #### [facility] ([id number]) [address], [address] [address]Xnndbitotyj distribution width (RBC) [Ratio]15.4 %High11.5-15.0 ProMedica [place]oria HospitalComment on above:Performed By: #### BERNARD, 02148-4, CMP, 60073-5, 2776-, CBCA, 49513-6 #### [facility] ([id number]) [address], [address] [place], [place] [address]Lkvukoerek (Bld) [Volume fraction]39.5 %Rgtziv61-25IrePgxnjl [place] HospitalComment on above:Performed By: #### PINR, 76764-9, CMP, 22918-8, 7-1, CBCA, 82893-5 #### [facility] ([id number]) [address], [address] [place], [place] [address]Sdqttzaouk (Bld) [Mass/Vol]13.6 g/yQJvtyrg86.7-15.5ProMedica [place]oria HospitalComment on above:Performed By: #### PINR, 55651-9, CMP, 99335-1, 2777-1, CBCA, 00275-1 #### [facility] ([id number]) [address], [address] [place], [place] [address]Twtpigepqpm (Bld) [#/Vol]3.2 10*3/uLNormal1.0-3.5ProMedica [place] HospitalComment on above:Performed By: #### PINR, 95403-7, CMP, 25377-3, 2777-1, CBCA, 91031-0 #### [facility] ([id number]) [address], [address] [place], [place] [address]Ukzttmvfwnt/100 WBC (Bld)21.7 %NormalProLake County Memorial Hospital - West Hospital Comment on above:Performed By: #### PINR, 88673-3, CMP, 43312-1, 2777-1, CBCA, 68512-0 #### [facility] ([id number]) [address], [address] [place], [place] [address]EES (RBC) [Entitic mass]30.2 caKkimgr09-65FjgZnsjeu [place] HospitalComment on above:Performed By: #### PINR, 72197-5, CMP, 89970-3, 2777-1, CBCA, 48306-1 #### [facility] ([id number]) [address], [address] [place], [place] [address]GBRF (RBC) [Mass/Vol]34.3 g/hGWdgrcs70-96CumEkoogo [place] HospitalComment on above:Performed By: #### PINR, 91816-1, CMP, 18581-8, 2777-1, CBCA, 42293-9 #### [facility] ([id number]) [address], [address] [place], [place] [address]VJY (RBC) [Entitic vol]88 nGNkmbba95-633YfeKqjtgf [place] HospitalComment on above:Performed By: #### PINR, 73501-7, CMP, 88674-7, 2777-1, CBCA, 15615-6 #### [facility] ([id number]) [address], [address] [place], [place] [address]Juiekbhqp (Bld) [#/Vol]0.7 10*3/uLNormal0-0.9ProMercy Health Defiance Hospitalca [place] HospitalComment on above:Performed By: #### PINR, 82554-1, CMP, 05252-2, 2777-1, CBCA, 91172-5 #### [facility] ([id number]) [address], [address] [place], [place] [address]Tgdxminer/100 WBC (Bld)5.1 %NormalUK Healthcare Comment on above:Performed By: #### PINR, 52881-9, CMP, 15862-8, 2777-1, CBCA, 55057-3 #### [facility] ([id number]) [address], [address] [place], [place] [address]Gwnsymifozz/100 WBC (Bld)71.3 %NormalUK Healthcare Comment on above:Performed By: #### PINR, 31689-6, CMP, 73150-2, 2777-1, CBCA, 43132-5 #### [facility] ([id number]) [address], [address] [place], [place] [address]Yrhufyke mean volume (Bld) [Entitic vol]8.3 fLNormal7-12 [facility]igh HospitalComment on above:Performed By: #### PINR, 50056-0, CMP, 78146-9, 2777-1, CBCA, 84329-7 #### [facility] ([id number]) [address], [address] [place], [place] [address]Uyodusfou (Bld) [#/Vol]130 10*3/bKYhd311-496SpuDrmurnProvidence HospitalComment on above:Performed By: #### PINR, 46618-3, CMP, 63997-5, 2777-1, CBCA, 91836-6 #### [facility] ([id number]) [address], [address] [place], [place] [address]KOC COUNT4.49 X10E12/LNormal3.80-5.20[facility] Comment on above:Performed By: #### PINR, 64644-3, CMP, 30954-0, 2777-1, CBCA, 93854-9 #### [facility] ([id number]) [address], [address] [place], [place] [address]UJV (Bld) [#/Vol]14.6 10*3/uLHigh4.0-11.0UK HealthcareComment on above:Performed By: #### PINR, 29236-1, CMP, 18458-9, 2777-1, CBCA, 06558-3 #### [facility] ([id number]) [address], [address] [place], [place] [address]FJD auto differentialon 52-80-6308Ikvctycct (Bld) [#/Vol]0 10*3/uLRutland Regional Medical CenterMediok Health SystemBasophils/100 WBC (Bld)0.3 %[facility] SystemEosinophils (Bld) [#/Vol]0.2 10*3/uLProMediSelect Medical [facility] Beachwood SystemEosinophils/100 WBC (Bld)1.6 %[facility] Springfieldedica Health SystemErythrocyte distribution width (RBC) [Ratio]15.4 %High11.5 - 15.0 %[facility] SystemHematocrit (Bld) [Volume fraction]39.5 %35 - 47 %ProMedica Health SystemHemoglobin (Bld) [Mass/Vol]13.6 g/dL11.7 - 15.5 g/dLCleveland Clinic Hillcrest HospitalInterpretation and review of laboratory resultsAbnormalCleveland Clinic Hillcrest HospitalLymphocytes (Bld) [#/Vol]3.2 10*3/[facility] HospitalLymphocytes/100 WBC (Bld)21.7 %[facility] Medical CenterH (RBC) [Entitic mass]30.2 pg27 - 34 pgPKettering Health TroyMCHC (RBC) [Mass/Vol]34.3 g/dL32 - 36 g/dLCleveland Clinic Hillcrest HospitalMCV (RBC) [Entitic vol]88 fL80 - 100 [facility] HospitalMonocytes (Bld) [#/Vol]0.7 10*3/uLCleveland Clinic Hillcrest HospitalMonocytes/100 WBC (Bld)5.1 %[facility] HospitalNeutrophils (Bld) [#/Vol]10.4 10*3/uLWythe County Community HospitalNeutrophils/100 WBC (Bld) 71.3 %[facility] HospitalPlatelet mean volume (Bld) [Entitic vol]8.3 fL7 - 12 [facility] HospitalPlatelets (Bld) [#/Vol]130 10*3/uLDetwiler Memorial HospitalRBC (Bld) [#/Vol]4.49 10*6/[facility] HospitalWBC corrected for nucl RBC Auto (Bld) [#/Vol]14.6HighAllegheny Valley HospitalCalcium.ionized (Bld) [Mass/Vol]on 74-93-1943GlxVxdvudKettering Health Troy IONIZED CALCIUM4.8 mg/dLNormal4.5-5.3PMiddletown HospitalComment on above: Performed By: #### PINR, 45952-6, CMP, 93919-7, 2777-1, CBCA, 44092-9 #### [facility] ([id number]) [address] [place] [address], [address] [place], [place] [address]Sowllbk calciumon 83-02-1943Kmtxrjc.ionized (Bld) [Mass/Vol]4.8 mg/dL4.5 - 5.3 mg/dLCleveland Clinic Hillcrest HospitalIonized magnesiumon 05-25-2024 Magnesium Ionized ISE (Bld) [Moles/Vol]0.56 mmol/L0.45 - 0.74 mmol/LProMedica Health SystemComment on above:NEW REFERENCE RANGEMAGNESIUMon 80-56-5631Cpcujhjhh [Mass/Vol]1.8 mg/dLNormal1.8-2.6ProProvidence HospitalComment on above: Performed By: #### BERNARD, 97089-2, CMP, 81098-2, 2777-1, CBCA, 62409-5 #### [facility] ([id number]) [address] [place] [address], [address] [place], [place] [address]Ydfexvxmvvn 80-03-7309Hlinngdrl [Mass/Vol]1.8 mg/dL1.8 - 2.6 mg/dLProOhiohealth Hardin Memorial HospitalMagnesium Ionized ISE (Bld) [Moles/Vol]on 05-25-2024 ProMedicBuffalo Hospital SystemMagnesium [Moles/Vol]0.56 mmol/LNormal0.45-0.74ProProvidence HospitalComment on above:Result Comment: NEW REFERENCE RANGEPerformed By: #### BERNARD, 31854-5, CMP, 87977-1, 2777-1, CBCA, 47805-8 #### [facility] ([id number]) [address] [place] [address], [address] [place], [place] [address]Gr Panel Informationon 30-13-6895XhoDynsylKettering Health Troy POTASSIUMon 15-49-2185Ewlrzdhhn [Moles/Vol]3.9 mmol/LNormal3.5-5.0ProProvidence HospitalComment on above:Performed By: #### BERNARD, 76912-6, CMP, 15972-3, 2777-1, CBCA, 33081-3 #### [facility] ([id number]) [address] [place] [address], [address] [place], [place] [address]Hmuzahagywg 09-78-6828Ejtijqvgs [Moles/Vol]3.9 mmol/L3.5 - 5.0 mmol/LProMedZanesville City Hospital SystemPotassium [Moles/Vol]on 26-70-4636FoaFkigzb Health SystemBacteria identified Aer cx Nom (Bld)on 55-72-0367Vslikpanpwieqh and review of laboratory resultsAbnormalProMedica Health SystemService comment (Unsp spec) [Interp]ESCHERICHIA COLIAbnormalProMedica Health SystemService comment (Unsp spec) [Interp]FOR SUSCEPTIBILITY, SEE PREVIOUS REPORT.[facility] Pro[facility] Health SystemInterpretation and review of laboratory resultsAbnormal ProMhill crest behavioral health servicesa Health SystemService comment (Unsp spec) [Interp]ESCHERICHIA COLI AbnormalProMedica Health SystemService comment (Unsp spec) [Interp]Detected Pro[facility] Health SystemProMercy Health Defiance Hospitalca Health SystemCBC AND AUTO DIFFon 87-32-0562Qllu form neutrophils/100 WBC (Bld)3.0 %NormalUK HealthcareComment on above:Performed By: #### PINR, 28919-0, CMP, 14651-9, 2777-1, CBCA, 00771-6 #### [facility] ([id number]) [address], [address] [place], [place] [address]Zszysbiggjl (Bld) [#/Vol]0.2 10*3/uLNormal0.0-0.4UK HealthcareComment on above:Performed By: #### PINR, 44092-4, CMP, 88245-6, 2777-1, CBCA, 85858-9 #### [facility] ([id number]) [address], [address] [place], [place] [address]Pbbkrmllbmu/100 WBC (Bld)1.0 %NormalSumma Health W[facility] - [facility] Comment on above:Performed By: #### PINR, 46601-4, CMP, 82692-8, 2777-1, CBCA, 51250-5 #### [facility] ([id number]) [address], [address] [place], [place] [address]Adpkxfamago distribution width (RBC) [Ratio]15.3 %High11.5-15.0 UK HealthcareComment on above:Performed By: #### PINR, 27880-4, CMP, 80113-5, 2777-1, CBCA, 58714-0 #### [facility] ([id number]) [address], [address] [place], [place] [address]Piokqkgogu (Bld) [Volume fraction]34.2 %Ccg10-75ZhyAfjnxz [place] HospitalComment on above:Performed By: #### PINR, 87097-9, CMP, 06483-4, 2777-1, CBCA, 32445-1 #### [facility] ([id number]) [address], [address] [place], [place] [address]Uledlkalam (Bld) [Mass/Vol]11.5 g/dLLow11.7-15.5ProMedTuscarawas Hospital HospitalComment on above:Performed By: #### PINR, 43143-9, CMP, 52563-5, 2777- 1, CBCA, 03811-0 #### [facility] ([id number]) [address], [address] [place], [place] [address]Wkkgnjyuber (Bld) [#/Vol]2.4 10*3/uLNormal1.0-3.5PRegional Medical Center HospitalComment on above:Performed By: #### PINR, 11257-2, CMP, 89606-0, 2777-1, CBCA, 06591-5 #### [facility] ([id number]) [address], [address] [place], [place] [address]Aascrhqbaxl/100 WBC (Bld)11.0 %NormalProLake County Memorial Hospital - West Hospital Comment on above:Performed By: #### PINR, 28664-1, CMP, 82441-4, 2777-1, CBCA, 74474-1 #### [facility] ([id number]) [address], [address] [place], [place] [address]LQW (RBC) [Entitic mass]29.8 rrYkidkn23-02AvlNoiosh [place] HospitalComment on above:Performed By: #### PINR, 55429-7, CMP, 66930-9, 2777-1, CBCA, 12701-2 #### [facility] ([id number]) [address], [address] [place], [place] [address]JXTF (RBC) [Mass/Vol]33.7 g/lLKopcll01-14NibVilbwv [place] HospitalComment on above:Performed By: #### PINR, 98122-3, CMP, 54819-3, 2777-1, CBCA, 05783-5 #### [facility] ([id number]) [address], [address] [place], [place] [address]TEC (RBC) [Entitic vol]89 eHVlqbmk23-310UbbAnbtxy [place] HospitalComment on above:Performed By: #### PINR, 19827-8, CMP, 38911-8, 2777-1, CBCA, 67914-7 #### [facility] ([id number]) [address], [address] [place], [place] [address]Hgcbbyqyj (Bld) [#/Vol]0.9 10*3/uLNormal0-0.9ProLake County Memorial Hospital - West HospitalComment on above:Performed By: #### PINR, 82079-2, CMP, 87607-6, 2777-1, CBCA, 61975-3 #### [facility] ([id number]) [address], [address] [place], [place] [address]Jrfalznip/100 WBC (Bld)4.0 %NormalProLake County Memorial Hospital - West Hospital Comment on above:Performed By: #### PINR, 36822-4, CMP, 03022-9, 2777-1, CBCA, 21317-9 #### [facility] ([id number]) [address], [address] [place], [place] [address]Rjeyvpmorub (Bld) [#/Vol]18.5 10*3/uLHigh1.5-6.6ProMercy Health Defiance Hospitalca Ashraf HospitalComment on above:Performed By: #### PINR, 05498-7, CMP, 31286-6, 2777- 1, CBCA, 22250-8 #### [facility] ([id number]) [address], [address] [place] [address]Uqpynpdt mean volume (Bld) [Entitic vol]8.6 fLNormal7-12 [facility]raf HospitalComment on above:Performed By: #### PINR, 74793-5, CMP, 61128-0, 2777-1, CBCA, 71579-8 #### [facility] ([id number]) [address], [address] [place], [place] [address]Myvueeqqw (Bld) [#/Vol]103 10*3/rTDcz152-004PjbUeickf Ashraf HospitalComment on above:Performed By: #### PINR, 03125-1, CMP, 20365-4, 2777-1, CBCA, 54944-6 #### [facility] ([id number]) [address], [address] [place], [place] [address]MDG COUNT3.87 X10E12/LNormal3.80-5.20[facility] Comment on above:Performed By: #### PINR, 49013-4, CMP, 78396-6, 2777-1, CBCA, 75089-4 #### [facility] ([id number]) [address], [address] [place], [place] [address]EGB morphology finding Nom (Bld)NORMALNormalProMedica Ashraf HospitalComment on above:Performed By: #### PINR, 00148-9, CMP, 83419-9, 2777-1, CBCA, 89815-4 #### [facility] ([id number]) [address], [address] [place], [place] [address]SCP EOSZJIJCPI04.0 %NormalProMedica Ashraf HospitalComment on above:Performed By: #### PINR, 79147-8, CMP, 33704-6, 2777-1, CBCA, 16303-3 #### [facility] ([id number]) [address], [address] [place], [place] [address]JCR (Bld) [#/Vol]22.0 10*3/uLHigh4.0-11.0[facility] HospitalComment on above:Performed By: #### PINR, 51271-6, CMP, 02323-6, 2777-1, CBCA, 45748-7 #### [facility] ([id number]) [address] [place], [place] [address]OAV auto differentialon 82-22-5792Qyjc form neutrophils/100 WBC (Bld)3 %[facility] HospitalEosinophils (Bld) [#/Vol]0.2 10*3/uLCleveland Clinic Hillcrest HospitalEosinophils/100 WBC (Bld)1 %[facility] HospitalErythrocyte distribution width (RBC) [Ratio]15.3 %High11.5 - 15.0 %[facility] Hematocrit (Bld) [Volume fraction]34.2 %Low35 - 47 %[facility] Hemoglobin (Bld) [Mass/Vol]11.5 g/dLLow11.7 - 15.5 g/dLCleveland Clinic Hillcrest Hospital Interpretation and review of laboratory resultsAbnormalC[facility] Clinic [facility] Lymphocytes (Bld) [#/Vol]2.4 10*3/uLCleveland Clinic Hillcrest HospitalLymphocytes/100 WBC (Bld)11 %[facility] HospitalMCH (RBC) [Entitic mass]29.8 pg27 - 34 pg [facility] HospitalMCHC (RBC) [Mass/Vol]33.7 g/dL32 - 36 g/dLCleveland Clinic Hillcrest HospitalMCV (RBC) [Entitic vol]89 fL80 - 100 [facility] Monocytes (Bld) [#/Vol]0.9 10*3/uLCleveland Clinic Hillcrest HospitalMonocytes/100 WBC (Bld) 4 %[facility] HospitalNeutrophils (Bld) [#/Vol]18.5 10*3/uLHighWayne Hospital SystemPlatelet mean volume (Bld) [Entitic vol]8.6 fL7 - 12 fLPFisher-Titus Medical Center SystemPlatelets (Bld) [#/Vol]103 10*3/uLLowCleveland Clinic [facility] Hospital Polymorphonuclear cells/100 WBC (Bld)NORMALProOhiohealth Hardin Memorial HospitalRBC (Bld) [#/Vol]3.87 10*6/uLFormerly Vidant Duplin Hospitalegmented neutrophils/100 WBC (Bld)81 %[facility] HospitalWBC corrected for nucl RBC Auto (Bld) [#/Vol]22High [facility] HospitalCOMPREHENSIVE METABOLIC PANELon 27-05-0165Kdeehsl [Mass/Vol]2.8 g/dLLow3.2-5.3PMiddletown HospitalComment on above:Performed By: #### BERNARD, 73560-5, CMP, 02830-1, 2777-1, CBCA, 06957-3 #### [facility] ([id number]) [address], [address] [place], [place] [address]RSJ [Catalytic activity/Vol]200 U/TUbyw41-066RfxDmdsaiUK HealthcareComment on above:Performed By: #### KATLYNR, 17045-0, CMP, 94190-1, 2777-1, CBCA, 50428-3 #### [facility] ([id number]) [address], [address] [place], [place] [address]YWL [Catalytic activity/Vol]53 U/LHigh0-31PMiddletown HospitalComment on above:Performed By: #### PINR, 31169-5, CMP, 83420-5, 2777-1, CBCA, 68150-7 #### [facility] ([id number]) [address], [address] [place], [place] [address]Auyas gap [Moles/Vol]9 mmol/LNormal5-15[facility] Comment on above:Performed By: #### PINR, 46941-7, CMP, 09345-6, 2777-1, CBCA, 24619-3 #### [facility] ([id number]) [address], [address] [place], [place] [address]ECO [Catalytic activity/Vol]56 U/LHigh0-41ProMedica Ashraf HospitalComment on above:Performed By: #### PINR, 66239-3, CMP, 51841-3, 2777-1, CBCA, 41826-2 #### [facility] ([id number]) [address], [address] [place], [place] [address]Novpindvi [Mass/Vol]0.6 mg/dLNormal0.3-1.2ProMedjohn a. andrew memorial hospital Ashraf HospitalComment on above:Performed By: #### BERNARD, 19832-7, CMP, 34762-3, 2777-1, CBCA, 42015-5 #### [facility] ([id number]) [address], [address] [place], [place] [address]Ucidzmz [Mass/Vol]8.6 mg/dLNormal8.5-10.5PRegional Medical Center HospitalComment on above:Performed By: #### PINR, 85977-4, CMP, 87979-8, 2777-1, CBCA, 51197-7 #### [facility] ([id number]) [address], [address] [place], [place] [address]Skmsrgfs [Moles/Vol]107 mmol/JJoorzg86-427BdcSxmstb Ashraf HospitalComment on above:Performed By: #### PINR, 03957-2, CMP, 01192-4, 2777-1, CBCA, 88436-9 #### [facility] ([id number]) [address], [address] [place], [place] [address]GQ0 [Moles/Vol]25 mmol/BMuslqi26-17AuaRafjjr [facility] Comment on above:Performed By: #### PINR, 94050-4, CMP, 61385-2, 2777-1, CBCA, 16095-9 #### [facility] ([id number]) [address], [address] [place], [place] [address]Dzbyduopdn [Mass/Vol]0.95 mg/dLNormal0.40-1.00ProProvidence HospitalComment on above:Result Comment: METHOD TRACEABLE TO IDMS STANDARD Performed By: #### PINR, 64931-5, CMP, 31162-3, 2777-1, CBCA, 63264-7 #### [facility] ([id number]) [address], [address] [place], [place] [address]JKO/1.73 sq M.predicted among non-blacks MDRD (S/P/Bld) [Vol rate/Area]66 mL/min/{1.73_m2}Normal>59ProProvidence HospitalComment on above: Result Comment: Reported eGFR is based on the CKD-EPI 2020 equation that does not use a race coefficient.Performed By: #### BERNARD, 11037-5, CMP, 44582-9, 2777- 1, CBCA, 07137-5 #### [facility] ([id number]) [address], [address] [place], [place] [address]Hxhbser [Mass/Vol]80 mg/tHQtbodu76-33AofWraiyi [facility] Comment on above:Performed By: #### PINR, 75534-0, CMP, 75910-8, 2777-1, CBCA, 31167-2 #### [facility] ([id number]) [address], [address] [place], [place] [address]Ezrrbiyub [Moles/Vol]3.7 mmol/LNormal3.5-5.0ProProvidence HospitalComment on above:Performed By: #### PINR, 74682-9, CMP, 11865-2, 2777-1, CBCA, 21051-0 #### [facility] ([id number]) [address], [address] [place], [place] [address]Alvtcsk [Mass/Vol]5.8 g/dLLow6.0-8.0[facility] Comment on above:Performed By: #### PINR, 85432-5, CMP, 02966-7, 2777-1, CBCA, 25177-9 #### [facility] ([id number]) [address], [address] [place], [place] [address]Qeadri [Moles/Vol]141 mmol/EUbgxmy444-645TgsNzjthp [place] HospitalComment on above:Performed By: #### PINR, 55363-8, CMP, 32452-2, 2777-1, CBCA, 56841-1 #### [facility] ([id number]) [address], [address] [place], [place] [address]Oucf nitrogen [Mass/Vol]33 mg/dLHigh5-27ProProvidence HospitalComment on above:Performed By: #### PINR, 68753-1, CMP, 21246-4, 2777-1, CBCA, 48116-8 #### [facility] ([id number]) [address], [address] [place] [address]Cboxgcqbuitko metabolic panelon 58-73-6215Nmcyczo [Mass/Vol]2.8 g/dLLow3.2 - 5.3 g/dLProMedica Health SystemALP [Catalytic activity/Vol]200 U/L High39 - 130 U/LProMedica Health SystemALT No additional P-5'-P [Catalytic activity/Vol]53 U/LHigh0 - 31 U/LProMedica Health SystemAnion gap [Moles/Vol]9 mmol/L5 - 15 mmol/LProMedica Health SystemAST [Catalytic activity/Vol]56 U/LHigh 0 - 41 U/LProMedica Health SystemBilirubin [Mass/Vol]0.6 mg/dL0.3 - 1.2 mg/dL [facility] SystemCalcium [Mass/Vol]8.6 mg/dL8.5 - 10.5 mg/dLWayne Hospital SystemChloride [Moles/Vol]107 mmol/L98 - 109 mmol/LProMedica Health SystemCO2 [Moles/Vol]25 mmol/L22 - 32 mmol/LPrHaxtun Hospital District Health SystemCreatinine [Mass/Vol]0.95 mg/dL0.40 - 1.00 mg/dLCleveland Clinic Hillcrest HospitalComment on above: METHOD TRACEABLE TO IDIA STANDARDeGFR (CKD-EPI)non-race nhouddijj94- PINF [facility] HospitalComment on above: Reported eGFR is based on the CKD-EPI 2020 equation that does not use a race coefficient. Glucose [Mass/Vol]80 mg/dL65 - 99 mg/dLCleveland Clinic Hillcrest HospitalInterpretation and review of laboratory resultsAbnormalProDayton Children'S Hospital SystemPotassium [Moles/Vol]3.7 mmol/L3.5 - 5.0 mmol/LProMedica Health SystemProtein [Mass/Vol] 5.8 g/dLLow6.0 - 8.0 g/dLProDayton Children'S Hospital SystemSodium [Moles/Vol]141 mmol/L134 - 146 mmol/[facility] SystemUrea nitrogen [Mass/Vol]33 mg/dLHigh5 - 27 mg/dLCleveland Clinic Hillcrest HospitalIonized magnesiumon 89-01-3003Cepksicsj Ionized ISE (Bld) [Moles/Vol]0.61 mmol/L0.45 - 0.74 mmol/[facility] SystemComment on above:NEW REFERENCE RANGEMAGNESIUMon 90-66-7476Hijmjjfez [Mass/Vol]1.9 mg/dL Normal1.8-2.6UK HealthcareComment on above:Performed By: #### PINR, 32618-2, CMP, 48071-9, 2777-1, CBCA, 33873-9 #### [facility] ([id number]) [address] [place] [address], [address] [place], [place] [address]Xuwpslivijc 01-56-5569Qbtnceggh [Mass/Vol]1.9 mg/dL1.8 - 2.6 mg/dLCleveland Clinic Hillcrest HospitalMagnesium Ionized ISE (Bld) [Moles/Vol]on 05-24-2024 [facility] SystemMagnesium [Moles/Vol]0.61 mmol/LNormal0.45-0.74ProProvidence HospitalComment on above:Result Comment: NEW REFERENCE RANGEPerformed By: #### PINR, 38236-1, CMP, 57064-4, 2777-1, CBCA, 95622-5 #### [facility] ([id number]) [address], [address] [place], [place] [address]Oe Panel Informationon 11-44-9016XxzKmygdp Health System PHOSPHORUSon 93-55-1406Ngrxtdiyc [Mass/Vol]3.1 mg/dLNormal2.4-4.9ProProvidence HospitalComment on above:Performed By: #### PINR, 45940-2, CMP, 72138-4, 2777-1, CBCA, 66547-2 #### [facility] ([id number]) [address], [address] [place], [place] [address]XGUILQFWCld 83-62-2462Xtunxatfe [Moles/Vol]3.9 mmol/LNormal 3.5-5.0ProProvidence HospitalComment on above:Performed By: #### PINR, 37673- 9, CMP, 55581-0, 2777-1, CBCA, 24698-1 #### [facility] ([id number]) [address], [address] [place], [place] [address]Hbnztszmdhbb 85-84-5401Yrgcobttq [Mass/Vol]3.1 mg/dL2.4 - 4.9 mg/dLProDayton Children'S Hospital SystemPotassiumon 64-87-5930Ezcayknor [Moles/Vol]3.9 mmol/L3.5 - 5.0 mmol/LProMedica Health SystemPotassium [Moles/Vol]on 05-24-2024 [facility] Springfieldedic Health SystemBLOOD CULTUREon 54-06-1301Ixyzkhaa identified Aer cx Nom (Bld)SPECIMEN NOTES SUBOPTIMAL VOLUME OF BLOOD COLLECTED, RESULTS MAY BE AFFECTED. CULTURE RESULTS NO GROWTH 5 DAYSNormalProRegency Hospital Companyo HospitalComment on above:Performed By: #### PINR, 11250-6, CMP, 87580-7, 2777-1, CBCA, 84588-7 #### [facility] ([id number]) [address], [address] [place], [place] [address]QIV AND AUTO DIFFon 07-47-2769Nzgb form neutrophils/100 WBC (Bld)16.0 %NormalProMedica Peoria HospitalComment on above:Performed By: #### PINR, 89942-3, CMP, 20119-5, 2777-1, CBCA, 69384-4 #### [facility] ([id number]) [address], [address] [place], [place] [address]Jylhldiiffa distribution width (RBC) [Ratio]15.2 %High11.5-15.0 [facility] HospitalComment on above:Performed By: #### PINR, 01994-1, CMP, 32856-9, 7-1, CBCA, 85016-1 #### [facility] ([id number]) [address], [address] [place], [place] [address]Cxjcrwuezp (Bld) [Volume fraction]34.6 %Cwz92-64RysMhwgtf [place]oria HospitalComment on above:Performed By: #### PINR, 47553-7, CMP, 28617-5, 7-1, CBCA, 07695-5 #### [facility] ([id number]) [address], [address] [place], [place] [address]Vafjpusmqm (Bld) [Mass/Vol]11.7 g/jEGvkdsm62.7-15.5ProMedica [place]oria HospitalComment on above:Performed By: #### PINR, 82667-6, CMP, 26603-7, 2777-1, CBCA, 02221-7 #### [facility] ([id number]) [address], [address] [place], [place] [address]Eaidylqvtsj (Bld) [#/Vol]1.6 10*3/uLNormal1.0-3.5ProMedica [facility]oria HospitalComment on above:Performed By: #### PINR, 09611-6, CMP, 10925-0, 2777-1, CBCA, 73415-2 #### [facility] ([id number]) [address], [address] [place], [place] [address]Rkvboagqion/100 WBC (Bld)4.0 %NormalProLake County Memorial Hospital [facility] Comment on above:Performed By: #### PINR, 12564-6, CMP, 00858-0, 2777-1, CBCA, 55344-7 #### [facility] ([id number]) [address], [address] [place], [place] [address]HFX (RBC) [Entitic mass]29.7 nhFopcia02-76QjzZqnhiw [place] HospitalComment on above:Performed By: #### PINR, 84884-7, CMP, 60696-1, 2777-1, CBCA, 91588-6 #### [facility] ([id number]) [address], [address] [place], [place] [address]IIDZ (RBC) [Mass/Vol]33.7 g/bVDwtrgh51-22PvtLmjeiz [place] HospitalComment on above:Performed By: #### PINR, 78517-4, CMP, 02757-6, 2777-1, CBCA, 22752-4 #### [facility] ([id number]) [address], [address] [place], [place] [address]RTV (RBC) [Entitic vol]88 uARwtyjt17-358TviCrvdnt [place] HospitalComment on above:Performed By: #### PINR, 06518-6, CMP, 57266-9, 2777-1, CBCA, 45972-5 #### [facility] ([id number]) [address], [address] [place], [place] [address]Zubbzmybvyithh/100 WBC (Bld)1.0 %NormalUK Healthcare Comment on above:Performed By: #### PINR, 17516-5, CMP, 75251-1, 2777-1, CBCA, 62170-8 #### [facility] ([id number]) [address], [address] [place], [place] [address]Ombiddrol (Bld) [#/Vol]0.4 10*3/uLNormal0-0.9ProProvidence HospitalComment on above:Performed By: #### PINR, 53190-0, CMP, 69125-2, 2777-1, CBCA, 88252-7 #### [facility] ([id number]) [address], [address] [place], [place] [address]Dwlhijbtp/100 WBC (Bld)1.0 %NormalUK Healthcare Comment on above:Performed By: #### PINR, 39259-2, CMP, 70020-3, 2777-1, CBCA, 07856-1 #### [facility] ([id number]) [address], [address] [place], [place] [address]PVZGYJDTTS VACUOLES1+AbnormalNONEProMedica [facility] Comment on above:Performed By: #### PINR, 50367-9, CMP, 50159-9, 2777-1, CBCA, 24598-7 #### [facility] ([id number]) [address], [address] [place], [place] [address]Xcxqupsqilv (Bld) [#/Vol]36.6 10*3/uLHigh1.5-6.6ProProvidence HospitalComment on above:Performed By: #### PINR, 54883-8, CMP, 92488-8, 2777- 1, CBCA, 77346-0 #### [facility] ([id number]) [address], [address] [place], [place] [address]Lshfgrtk mean volume (Bld) [Entitic vol]8.8 fLNormal7-12 [facility]raf HospitalComment on above:Performed By: #### PINR, 92333-5, CMP, 76405-8, 2777-1, CBCA, 69068-1 #### [facility] ([id number]) [address], [address] [place], [place] [address]Ctdqrxzdv (Bld) [#/Vol]91 10*3/xZJhl571-540BddCrbljj Ashraf HospitalComment on above:Performed By: #### PINR, 34386-9, CMP, 23716-8, 2777-1, CBCA, 62835-0 #### [facility] ([id number]) [address], [address] [place], [place] [address]NAJ COUNT3.92 X10E12/LNormal3.80-5.20[facility] Comment on above:Performed By: #### PINR, 86345-3, CMP, 00256-1, 2777-1, CBCA, 87740-2 #### [facility] ([id number]) [address], [address] [place], [place] [address]XYL morphology finding Nom (Bld)NORMALNormalProMedica Ashraf HospitalComment on above:Performed By: #### PINR, 61051-9, CMP, 55940-7, 2777-1, CBCA, 90142-6 #### [facility] ([id number]) [address], [address] [place], [place] [address]BGQ EUEOHREMHQ67.0 %NormalProMedica Ashraf HospitalComment on above:Performed By: #### PINR, 69088-0, CMP, 44280-0, 2777-1, CBCA, 64963-0 #### [facility] ([id number]) [address], [address] [place], [place] [address]GTT (Bld) [#/Vol]39.0 10*3/uLHigh4.0-11.0UK HealthcareComment on above:Performed By: #### PINR, 14904-2, CMP, 97162-8, 2777-1, CBCA, 49455-4 #### [facility] ([id number]) [address] [place], [place] [address]CIN auto differentialon 49-65-7526Eber form neutrophils/100 WBC (Bld)16 %[facility] Hospital SystemErythrocyte distribution width (RBC) [Ratio]15.2 %High11.5 - 15.0 %[facility] Hospital SystemHematocrit (Bld) [Volume fraction]34.6 %Low35 - 47 %[facility] SystemHemoglobin (Bld) [Mass/Vol]11.7 g/dL11.7 - 15.5 g/dLWayne Hospital SystemInterpretation and review of laboratory results AbnormalWayne Hospital SystemLeukocyte toxic vacuoles LM Ql (Bld)1+Abnormal NONE^NONEWayne Hospital SystemLymphocytes (Bld) [#/Vol]1.6 10*3/uLWayne Hospital SystemLymphocytes/100 WBC (Bld)4 %[facility] HospitalMCH (RBC) [Entitic mass]29.7 pg27 - 34 pgPKettering Health TroyMCHC (RBC) [Mass/Vol]33.7 g/dL32 - 36 g/dLCleveland Clinic Hillcrest HospitalMCV (RBC) [Entitic vol]88 fL80 - 100 fL [facility] SystemMetamyelocytes/100 WBC (Bld)1 %[facility] Monocytes (Bld) [#/Vol]0.4 10*3/uLWayne Hospital SystemMonocytes/100 WBC (Bld) 1 %[facility] SystemNeutrophils (Bld) [#/Vol]36.6 10*3/uLHighWayne Hospital SystemPlatelet mean volume (Bld) [Entitic vol]8.8 fL7 - 12 fLPFisher-Titus Medical Center SystemPlatelets (Bld) [#/Vol]91 10*3/uLLowProMedica Health System Polymorphonuclear cells/100 WBC (Bld)NORMALCleveland Clinic Hillcrest HospitalRBC (Bld) [#/Vol]3.92 10*6/uLFormerly Vidant Duplin Hospitalegmented neutrophils/100 WBC (Bld)78 %[facility] HospitalWBC corrected for nucl RBC Auto (Bld) [#/Vol]39High [facility] HospitalCOMPREHENSIVE METABOLIC PANELon 54-25-2407Usepbya [Mass/Vol]3.1 g/dLLow3.2-5.3PRegional Medical Center HospitalComment on above:Performed By: #### PINR, 53749-4, CMP, 45409-1, 2777-1, CBCA, 13170-6 #### [facility] ([id number]) [address], [address] [place], [place] [address]YJE [Catalytic activity/Vol]256 U/PEkep56-742SdrVxbmsvProvidence HospitalComment on above:Performed By: #### PINR, 12759-3, CMP, 71123-9, 2777-1, CBCA, 10652-0 #### [facility] ([id number]) [address], [address] [place], [place] [address]DZW [Catalytic activity/Vol]65 U/LHigh0-31PMiddletown HospitalComment on above:Performed By: #### PINR, 63390-4, CMP, 16886-8, 2777-1, CBCA, 35341-0 #### [facility] ([id number]) [address], [address] [place], [place] [address]Xqluy gap [Moles/Vol]14 mmol/LNormal5-15[facility] HospitalComment on above:Performed By: #### PINR, 80208-9, CMP, 41867-6, 2777-1, CBCA, 40722-4 #### [facility] ([id number]) [address], [address] [place], [place] [address]BGC [Catalytic activity/Vol]48 U/LHigh0-41Pro[facility] HospitalComment on above:Performed By: #### PINR, 78120-2, CMP, 48060-3, 7-1, CBCA, 00098-9 #### [facility] ([id number]) [address], [address] [place], [place] [address]Cughohiwm [Mass/Vol]0.6 mg/dLNormal0.3-1.2[facility] HospitalComment on above:Performed By: #### PINR, 26167-6, CMP, 83234-9, 7-1, CBCA, 25746-0 #### [facility] ([id number]) [address], [address] [place], [place] [address]Iznruyf [Mass/Vol]8.5 mg/dLNormal8.5-10.5Pro[facility] HospitalComment on above:Performed By: #### PINR, 26317-0, CMP, 89594-6, 2776-, CBCA, 03986-4 #### [facility] ([id number]) [address], [address] [place], [place] [address]Vytifrgo [Moles/Vol]103 mmol/JGgwhyg75-618JbwSzkbry [facility]raf HospitalComment on above:Performed By: #### PINR, 33569-0, CMP, 20552-6, 2776-, CBCA, 68676-2 #### [facility] ([id number]) [address], [address] [place], [place] [address]PD4 [Moles/Vol]20 mmol/QOpz77-03KhlSwfvjb [facility]raf HospitalComment on above:Performed By: #### PINR, 71584-6, CMP, 18050-1, 2777-1, CBCA, 66888-9 #### [facility] ([id number]) [address], [address] [place], [place] [address]Nferpnvaib [Mass/Vol]1.47 mg/dLHigh0.40-1.00ProProvidence HospitalComment on above:Result Comment: METHOD TRACEABLE TO IDMS STANDARD Performed By: #### BERNARD, 33342-6, CMP, 02905-0, 7-1, CBCA, 31775-6 #### [facility] ([id number]) [address], [address] [place], [place] [address]XFO/1.73 sq M.predicted among non-blacks MDRD (S/P/Bld) [Vol rate/Area]39 mL/min/{1.73_m2}Low>59ProProvidence HospitalComment on above: Result Comment: Reported eGFR is based on the CKD-EPI 2020 equation that does not use a race coefficient.Performed By: #### BERNARD, 85984-7, CMP, 85844-4, 2776- 1, CBCA, 15600-8 #### [facility] ([id number]) [address], [address] [place], [place] [address]Zhfjzyt [Mass/Vol]93 mg/xKFocrdt06-86XcwTivkpd [facility] Comment on above:Performed By: #### BERNARD, 26707-2, CMP, 68305-8, 2776-, CBCA, 16739-1 #### [facility] ([id number]) [address], [address] [place], [place] [address]Lnilycazm [Moles/Vol]3.7 mmol/LNormal3.5-5.0ProProvidence HospitalComment on above:Performed By: #### BERNARD, 22469-6, CMP, 82244-2, 2777-1, CBCA, 49156-4 #### [facility] ([id number]) [address], [address] [place], [place] [address]Ukreevj [Mass/Vol]6.5 g/dLNormal6.0-8.0[facility] Comment on above:Performed By: #### BERNARD, 37114-8, CMP, 78779-3, 2777-1, CBCA, 04910-8 #### [facility] ([id number]) [address], [address] [place], [place] [address]Tlrudf [Moles/Vol]137 mmol/GYbwzeg436-892SdtUtvrfl [place] HospitalComment on above:Performed By: #### PINR, 91792-9, CMP, 84733-9, 2776-1, CBCA, 79436-1 #### [facility] ([id number]) [address], [address] [place], [place] [address]Mihe nitrogen [Mass/Vol]41 mg/dLHigh5-27ProProvidence HospitalComment on above:Performed By: #### PINR, 96733-4, CMP, 55563-8, 2776-1, CBCA, 37758-5 #### [facility] ([id number]) [address], [address] [place], [place] [address]Ircxfflifehsh metabolic panelon 18-70-1245Heegfec [Mass/Vol]3.1 g/dLLow3.2 - 5.3 g/dLProMedica Health SystemALP [...] mmol/LProMedica Health SystemCreatinine [Mass/Vol]1.47 mg/dLHigh0.40 - 1.00 mg/dLCleveland Clinic Hillcrest HospitalComment on above:METHOD TRACEABLE TO IDIA STANDARDeGFR (CKD-EPI)non-race tnsszymma26DnsInova Mount Vernon HospitalComment on above: Reported eGFR is based on the CKD-EPI 2020 equation that does not use a race coefficient. Glucose [Mass/Vol]93 mg/dL65 - 99 mg/dLCleveland Clinic Hillcrest HospitalPotassium [Moles/Vol]3.7 mmol/L3.5 - 5.0 mmol/LPrHaxtun Hospital District Health SystemProtein [Mass/Vol] 6.5 g/dL6.0 - 8.0 g/dLWayne Hospital SystemSodium [Moles/Vol]137 mmol/L134 - 146 mmol/[facility] SystemUrea nitrogen [Mass/Vol]41 mg/dLHigh5 - 27 mg/dLCleveland Clinic Hillcrest HospitalMAGNESIUMon 68-67-4149Uruaxgigm [Mass/Vol]2.0 mg/dL Normal1.8-2.6UK HealthcareComment on above:Performed By: #### BERNARD, 00456-4, CMP, 04559-9, 7-1, CBCA, 09422-3 #### [facility] ([id number]) [address], [address] [place], [place] [address]Gejcvudaeps 38-26-7817Xenbcuvfi [Mass/Vol]2 mg/dL1.8 - 2.6 mg/dL [facility] HospitalNo Panel Informationon 82-09-1863Jtdqjklbaovffm and review of laboratory resultsAbnormalProOhiohealth Hardin Memorial HospitalProOhiohealth Hardin Memorial HospitalPHOSPHORUSon 86-42-8428Jojqskdnr [Mass/Vol]2.4 mg/dLNormal2.4-4.9UK HealthcareComment on above:Performed By: #### KATLYNR, 17173-5, CMP, 34915-0, 2777-1, CBCA, 36807-9 #### [facility] ([id number]) [address], [address] [place], [place] [address]AXMXEEERXib 09-91-9089Elsumeafa [Moles/Vol]3.7 mmol/LNormal 3.5-5.0UK HealthcareComment on above:Performed By: #### PINR, 43974- 9, CMP, 46037-0, 2777-1, CBCA, 65086-2 #### [facility] ([id number]) [address], [address] [place], [place] [address]Hhfqvckjo [Moles/Vol]3.5 mmol/LNormal3.5-5.0UK HealthcareComment on above:Performed By: #### PINR, 80414-0, CMP, 68707-3, 2777-1, CBCA, 98140-8 #### [facility] ([id number]) [address], [address] [place], [place] [address]Hpslyfsjzevt 25-60-9049Bmjechslk [Mass/Vol]2.4 mg/dL2.4 - 4.9 mg/dLCleveland Clinic Hillcrest HospitalPotassiumon 93-77-3178Tnnbcaaoe [Moles/Vol]3.7 mmol/L3.5 - 5.0 mmol/LPrHaxtun Hospital District Health SystemPotassium [Moles/Vol]3.5 mmol/L3.5 - 5.0 mmol/LPrDetwiler Memorial Hospital SystemPotassium [Moles/Vol]on 46-40-8058MgvQqlexfPenn State Health Rehabilitation HospitalProcalcitoninon 38-80-1372Xvmxqgduxvnun [place] [Mass/Vol]242.46 ng/mLHighNINF - 0.05 ng/mLCleveland Clinic Hillcrest HospitalComment on above:NOTE <0.50 ng/mL - Low risk of severe sepsis and/or septic shock. <2.00 ng/mL - Recommend retesting within 6-24 hours. >2.00 ng/mL - High risk of sepsis and/or septic shock. Procalcitonin IA [Mass/Vol]on 58-90-1117YBGVDCOCTQKCA043.46 ng/mLHigh<0.05 UK HealthcareComment on above:Result Comment: NOTE <0.50 ng/mL - Low risk of severe sepsis and/or septic shock. <2.00 ng/mL - Recommend retesting within 6-24 hours. >2.00 ng/mL - High risk of sepsis and/or septic shock.Performed By: #### PINR, 63452-8, CMP, 85507-0, 2777-1, CBCA, 50251-1 #### [facility] ([id number]) [address], [address] [place], [place] [address]Nxfrykib identified Cx Nom (U)on 26-71-2060Fuajjfd comment (Unsp spec) [Interp]<10,000 ORGANISMS/ML NORMAL URO GENITAL FLORAProMedica Health SystemProDayton Children'S Hospital SystemCBC AND AUTO DIFFon 61-66-5215Xkcj form neutrophils/100 WBC (Bld)35.0 %NormalProMedica Peoria HospitalComment on above: Performed By: #### CBCA, CMP, 51328-7, 82907-5, 2777-1 ####[facility] ([id number])[address], [address] [place] [address]OLRLM BODIES1+ AbnormalNONEProMedica Peoria HospitalComment on above:Performed By: #### CBCA, CMP, 45437-0, 35861-0, 2777-1 ####[facility] ([id number])[address], [address] [place] [address]Aeqmdiibfpa/100 WBC (Bld)4.0 %Normal [facility]ica [facility] HospitalComment on above:Performed By: #### CBCA, CMP, 59082-5, 89867-7, 2777-1 ####[facility] ([id number])[address], [address] [place] [address]Ektvsdvwsfgrgk/100 WBC (Bld)5.0 %NormalProMedica Peoria HospitalComment on above:Performed By: #### CBCA, CMP, 56659-8, 85415-5, 2777-1 ####[facility] ([id number])[address], [address] [place] [address]Sttltgwof/100 WBC (Bld)2.0 %NormalProMedica Peoria HospitalComment on above:Performed By: #### CBCA, CMP, 45353-9, 62901-0, 277- ####[facility] ([id number])[address], [address] [place] [address]OZBXGXFMX0.0 %NormalProMercy Health Defiance Hospitalca [place] HospitalComment on above:Performed By: #### CBCA, CMP, 69392-6, 41500-1, 277- ####[facility] ([id number])[address], [address] [place] [address]VOY COUNT3.55 X10E12/LLow3.80-5.20Pro[facility]ica [facility] HospitalComment on above:Performed By: #### CBCA, CMP, 06602-5, 19455-5, 277- ####[facility] ([id number])[address], [address] [place] [address]IQE ZDSBRZYBGR21.0 %NormalProMercy Health Defiance Hospitalca [place] HospitalComment on above:Performed By: #### CBCA, CMP, 95027-6, 85861-2, 27701-21 ####[facility] ([id number])[address], [address] [place] [address]BZL (Bld) [#/Vol]28.1 10*3/uLHigh4.0-11.0ProMercy Health Defiance Hospitalca [place] HospitalComment on above: Performed By: #### CBCA, CMP, 85057-0, 26939-2, 277- ####[facility] ([id number])[address], [address] [place] [address] 24706Qkabmhzinfu distribution width (RBC) [Ratio]14.9 %Pjgpbd22.5-15.0[facility] Comment on above:Performed By: #### CBCA, CMP, 97341-9, 60791-5, 27701-21 ####[facility] ([id number])[address], [address] [place] [address] 15581Zgnjleallm (Bld) [Volume fraction]31.3 %Aik75-93HyjFaacsoCleveland Clinic Hillcrest [facility] Comment on above:Performed By: #### CBCA, CMP, 27891-1, 79498-4, 277-1 ####[facility] ([id number])[address], [address] [place] [address] 78087Btdlcnlcko (Bld) [Mass/Vol]10.6 g/dLLow11.7-15.[address] [place] [address] Comment on above:Performed By: #### CBCA, CMP, 77002-6, 85512-7, 27701-21 ####[facility] ([id number])[address] [address] [place] [address] 13689Xurzwjofohj (Bld) [#/Vol]1.1 10*3/uLNormal1.0-3.[address] [place] [address] Comment on above:Performed By: #### CBCA, CMP, 44253-1, 40343-1, 277- ####[facility] ([id number])[address] [address] [place] [address] 02634ILY (RBC) [Entitic mass]29.8 hzEazfgb30-31OloPflbxp Health SystemComment on above:Performed By: #### CBCA, CMP, 04421-5, 72809-8, 277- ####[facility] ([id number])[address] [address] [place] [address] 60381LPLO (RBC) [Mass/Vol]33.7 g/tVThcjrq70-03UjaRhvizb Health SystemComment on above: Performed By: #### CBCA, CMP, 50837-1, 39377-7, 277-1 ####[facility] ([id number])[address], [address] [place] [address] 73572AMF (RBC) [Entitic vol]88 bJIaidul15-187PuyHwfvdf Health SystemComment on above:Performed By: #### CHA, CMP, 85607-9, 01125-9, 2777-1 ####[facility] ([id number])[address], [address] [place] [address] 40309Qgquvfuva (Bld) [#/Vol]0.6 10*3/uLNormal0-0.9ProCitizens Baptist Health SystemComment on above:Performed By: #### CHA, CMP, 58305-3, 11678-0, 2777-1 ####[facility] ([id number])[address], [address] [place] [address] 50864Xgoyzmvewtl (Bld) [#/Vol] 24.2 10*3/uLHigh1.5-6.6ProCitizens Baptist Health SystemComment on above:Performed By: #### CBCAndrew, CMP, 16701-1, 37281-4, 2777-1 ####[facility] ([id number])[address], [address] [place] [address] 10414Nyxwycwb mean volume (Bld) [Entitic vol]8.3 fLNormal7-12PLafayette General Medical Center Health SystemComment on above:Performed By: #### CBCA, CMP, 15249-3, 97952-2, 2777-1 ####[facility] ([id number])[address] [address] [place] [address] 37936Dwctujtwy (Bld) [#/Vol]60 10*3/eFOxh788-278YakQjceze Health SystemComment on above:Performed By: #### CBCA, CMP, 16379-2, 78567-4, 2777-1 ####[facility] ([id number])[address], [address] [place] [address] 48502LAH auto differentialon 07-43-3699Neoj form neutrophils/100 WBC (Bld)35 %[facility] SystemDohle body LM Ql (Bld)1+AbnormalNONE^NONEWayne Hospital SystemInterpretation and review of laboratory resultsAbnormalProDayton Children'S Hospital SystemLymphocytes/100 WBC (Bld)4 %[facility] SystemMetamyelocytes/100 WBC (Bld)5 %[facility] SystemMonocytes/100 WBC (Bld)2 %[facility] SystemMyelocytes/100 WBC (Bld)3 %[facility] SystemRBC (Bld) [#/Vol]3.55 10*6/uLLowWayne Hospital System Segmented neutrophils/100 WBC (Bld)51 %[facility] HospitalWBC corrected for nucl RBC Auto (Bld) [#/Vol]28.1HighAllegheny Valley HospitalCOMPREHENSIVE METABOLIC PANELon 38-79-1765WHQ [Catalytic activity/Vol]79 U/LHigh0-31PMiddletown HospitalComment on above:Performed By: #### ELROY EUBANKS, 98322-5, 26271-4, 2777-1 ####[facility] ([id number])[address] [facility] [address] [address]ZLB/1.73 sq M.predicted among non-blacks MDRD (S/P/Bld) [Vol rate/Area]37 mL/min/{1.73_m2}Low>59[facility] Comment on above:Result Comment: Reported eGFR is based on the CKD-EPI 2020 equation that does not use a race coefficient.Performed By: #### ELROY EUBANKS, 32614-4, 80300-5, 2777- 1 ####[facility] ([id number])[address] [facility], [address] [address]Rhaqepc [Mass/Vol]2.9 g/dLLow3.2-5.3PKettering Health TroyComment on above:Performed By: #### ELROY EUBANKS, 84996-5, 77715-9, 2777-1 ####[facility] ([id number])[address], [place] [address]TDB [Catalytic activity/Vol]202 U/IFvyc36-557NluMekwmo Health SystemComment on above:Performed By: #### ELROY EUBANKS, 78728-9, 24515-6, 2777-1 ####[facility] ([id number])[address], [address], [place] [address]Obyuf gap [Moles/Vol]15 mmol/LNormal5-15Way[facility] Hospital SystemComment on above:Performed By: #### ELROY EUBANKS, 22581-5, 00935-6, 2777-1 ####[facility] ([id number])[address], [address], [place] [address]JSI [Catalytic activity/Vol]90 U/LHigh0-41ProDayton Children'S Hospital SystemComment on above:Performed By: #### ELROY EUBANKS, 06751-5, 42482-0, 2777 ####[facility] ([id number])[address], [address], [place] [address]Ajouyfrfm [Mass/Vol]1.1 mg/dLNormal0.3-1.2PFisher-Titus Medical Center SystemComment on above:Performed By: #### ELROY EUBANKS, 36186-3, 86405-1, 2777- ####[facility] ([id number])[address], [address], [place] [address]Nnaywjg [Mass/Vol]7.8 mg/dL Low8.5-10.5PLafayette General Medical Center Health SystemComment on above:Performed By: #### ELROY EUBANKS, 16265-4, 77717-0, 2777-1 ####[facility] ([id number])[address], [address], [place] [address]Fhpogrfd [Moles/Vol]104 mmol/FYbxnav78-108 ProMst. vincent's hospital Health SystemComment on above:Performed By: #### ELROY EUBANKS, 38895-4, 13286-5, 2776- ####[facility] ([id number])[address], [address] [place] [address]JB9 [Moles/Vol]20 mmol/PKcx15-68RcaSnuzfc Health System Comment on above:Performed By: #### ELROY EUBANKS, 45577-1, 67177-9, 277- ####[facility] ([id number])[address], [address], [place] [address]Vfyflehdpx [Mass/Vol]1.53 mg/dLHigh0.40-1.00Wayne Hospital SystemComment on above:METHOD TRACEABLE TO IDMS STANDARDResult Comment: METHOD TRACEABLE TO IDMS STANDARDPerformed By: #### ELROY EUBANKS, 24993-7, 28718-6, 27701-21 ####[facility] ([id number])[address], [place] [address] Glucose [Mass/Vol]116 mg/mVYorb09-21ZsuBbqzil Health SystemComment on above: Performed By: #### ELROY EUBANKS, 51692-9, 96967-6, 2771 ####[facility] ([id number])[address] [address] [address]Csokhwrcb [Moles/Vol]4.2 mmol/LNormal3.5-5.0Wayne Hospital SystemComment on above: Performed By: #### ELROY EUBANKS, 32412-9, 15489-2, 277- ####[facility] ([id number])[address], [address] [place] [address]Qmzdprt [Mass/Vol]5.7 g/dLLow6.0-8.0ProDayton Children'S Hospital SystemComment on above:Performed By: #### ELROY EUBANKS, 55024-2, 47608-8, 2777-1 ####[facility] ([id number])[address] [address]Hoaqrq [Moles/Vol]139 mmol/VUvtrca316-810HipLagcir Health SystemComment on above:Performed By: #### CBCAndrew, CMP, 67967-5, 61897-5, 2777-1 ####[facility] ([id number])[address] [address]Jjya nitrogen [Mass/Vol]28 mg/dLHigh5-27[facility]st HospitalComment on above:Performed By: #### CBCAndrew, CMP, 13246-3, 50453-4, 2777-1 ####[facility] ([id number])[address] [place] [address]Kmotdmg.ionized (Bld) [Mass/Vol]on 03-59-3292NJAFUPF CALCIUM4.4 mg/dLLow4.5-5.3PMiddletown HospitalComment on above:Performed By: #### 83031-7, 58049-2 ####[facility] ([id number])[address] [address]QpcFupmeiCleveland Clinic Hillcrest Hospital IONIZED CALCIUM4.5 mg/dLNormal4.5-5.3PMiddletown HospitalComment on above: Performed By: #### PINR, 32987-1, CMP, 05695-1, 2777-1, CBCA, 57872-2 #### [facility] ([id number]) [address] [address]Ghbngptdpygofs and review of laboratory resultsAbnoSurgical Specialty Center at Coordinated HealthComprehensive metabolic panelon 05-22-2024 ALT No additional P-5'-P [Catalytic activity/Vol]79 U/LHigh0 - 31 U/LPrGrand Lake Joint Township District Memorial HospitaleGFR (CKD-EPI)non-race zgfinwqlj61Xfv- [facility] Comment on above: Reported eGFR is based on the CKD-EPI 2021 equation that does not use a race coefficient. Ionized calciumon 42-69-7999Jpviigf.ionized (Bld) [Mass/Vol]4.5 mg/dL4.5 - 5.3 mg/dLWayne Hospital SystemCalcium.ionized (Bld) [Mass/Vol]4.4 mg/dLLow4.5 - 5.3 mg/dLWayne Hospital SystemIonized magnesiumon 98-51-2966Dttoluiel Ionized ISE (Bld) [Moles/Vol]0.54 mmol/L0.45 - 0.74 mmol/LPrDetwiler Memorial Hospital SystemComment on above:NEW REFERENCE RANGELaboratory - Chemistry and Chemistry - challengeon 38-16-4139Exnugndkp [Mass/Vol]1.8 mg/dLNormal1.8-2.6[facility] Comment on above:Performed By: #### CHA, ELROY, 11967-2, 27290-6, 2777-1 ####[facility] ([id number])[address], [address], [place] [address]Uxedbzkmk [Mass/Vol]4.7 mg/dLNormal2.4-4.9[facility] HospitalComment on above:Performed By: #### BERNARD, 36138-1, CMP, 42122-2, 2776-1, CBCA, 99381-0 #### [facility] ([id number]) [address], [address] [place], [place] [address]Vyqozsp (P jannette) [Moles/Vol]on 55-85-4382WolXsdsnq Health System LACTATE W/REFLEX1.3 mmol/LNormal0.4-2.0ProProvidence HospitalComment on above:Result Comment: Result did not trigger repeat Lactate, re-order if needed.Performed By: #### BERNARD, 81260-5, CMP, 05537-7, 7-1, CBCA, 30101-7 #### [facility] ([id number]) [address], [address] [place], [place] [address]HsaMdykacCleveland Clinic Hillcrest HospitalLACTATE W/REFLEX1.6 mmol/LNormal0.4-2.0 ProMMcKitrick HospitalComment on above:Result Comment: Result did not trigger repeat Lactate, re-order if needed.Performed By: #### PINR, 67041-3, CMP, 17851-0, 2777-1, CBCA, 93429-9 #### [facility] ([id number]) [address] [place], [place] [address]Kcdwblf w/ Reflexon 07-82-3036Rdepklx (P jannette) [Moles/Vol]1.3 mmol/L0.4 - 2.0 mmol/LProMedica Health SystemComment on above: Result did not trigger repeat Lactate, re-order if needed. Lactate (P jannette) [Moles/Vol]1.6 mmol/L0.4 - 2.0 mmol/LProMedica Health System Comment on above: Result did not trigger repeat Lactate, re-order if needed. Magnesium Ionized ISE (Bld) [Moles/Vol]on 22-72-6306Ghwxhwrgq [Moles/Vol]0.54 mmol/LNormal0.45-0.74UK HealthcareComment on above:Result Comment: NEW REFERENCE RANGEPerformed By: #### 11425-3, 46788-1 ####[facility] ([id number])[address], [address] [place] [address]QjyXtqgnlCleveland Clinic Hillcrest HospitalNo Panel Informationon 61-91-1976Kvvrhyosqbbere and review of laboratory resultsAbnormalProOhiohealth Hardin Memorial HospitalProDayton Children'S Hospital SystemProcalcitoninon 85-59-8975Cesaezmolntnd [place] [Mass/Vol]424.58 ng/mLHighNINF - 0.05 ng/mLCleveland Clinic Hillcrest HospitalComment on above:NOTE <0.50 ng/mL - Low risk of severe sepsis and/or septic shock. <2.00 ng/mL - Recommend retesting within 6-24 hours. >2.00 ng/mL - High risk of sepsis and/or septic shock. Procalcitonin IA [Mass/Vol]on 69-04-2900GFUGIFMMBQCDY295.58 ng/mLHigh<0.05 UK HealthcareComment on above:Result Comment: NOTE <0.50 ng/mL - Low risk of severe sepsis and/or septic shock. <2.00 ng/mL - Recommend retesting within 6-24 hours. >2.00 ng/mL - High risk of sepsis and/or septic shock.Performed By: #### PINR, 24962-1, CMP, 41940-4, 2777-1, CBCA, 24158-6 #### [facility] ([id number]) [address], [address] [place], [place] [address]VPIJcg 98-08-1916bDTB Coag (PPP) [Time]29 [facility] Medical CenterArterial Line Insertionon 02-00-1295BoixSTEPHEN Cobian 05/21/2024 2:23 PM Arterial Line Insertion [...] to verify the correct patient, procedure, equipment, it support technician and site/side marked as required. Fire Risk [...] none Interventions: none ProMedica Health SystemBLOOD CULTUREon 00-40-9707Adtfptoo identified Aer cx Nom (Bld)CULTURE RESULTS ESCHERICHIA COLI FOR SUSCEPTIBILITY, SEE PREVIOUS REPORT.NormalUK HealthcareComment on above:Performed By: #### PINR, 69771-3, CMP, 44896-0, 2777-1, CBCA, 27509-6 #### [facility] ([id number]) [address] [facility] [place], [place] [address]Qzdpacmy identified Aer cx Nom (Bld)CULTURE RESULTS ESCHERICHIA [...] PIPERACIL/TAZOBACTAM S <=4 F TOBRAMYCIN S <=1 FSusceptibleProProvidence HospitalComment on above:Performed By: #### 07455-8 ####[facility] ([id number])[address], [address], [place] [address]Wdiniuhuk/100 WBC Manual cnt (Bld)on 05-21-2024 Basophils/100 WBC (Bld)Basophils/100 leukocytes in Blood by Manual countLow 0.2-2.0[facility]uffton HospitalCBC AND AUTO DIFFon 82-65-0860Nvxm form neutrophils/100 WBC (Bld)37.0 %NormalProMedica Ashraf HospitalComment on above: Performed By: #### PINR, 74092-5, CMP, 31625-4, 2777-1, CBCA, 60994-7 #### [facility] ([id number]) [address], [address] [place] [address]Uzjekccodug distribution width (RBC) [Ratio]15.3 %High11.5-15.0 [facility] HospitalComment on above:Performed By: #### PINR, 83947-9, CMP, 58021-1, 2777-1, CBCA, 89697-6 #### [facility] ([id number]) [address], [address] [place], [place] [address]Frwwaobism (Bld) [Volume fraction]34.6 %Jma89-89CtzGujyqq [place]oria HospitalComment on above:Performed By: #### PINR, 93511-0, CMP, 10859-6, 7-1, CBCA, 72798-4 #### [facility] ([id number]) [address], [address] [place], [place] [address]Lawtyyxgqc (Bld) [Mass/Vol]11.6 g/dLLow11.7-15.5ProMedTuscarawas Hospital HospitalComment on above:Performed By: #### PINR, 39553-7, CMP, 68165-2, 2777- 1, CBCA, 16911-0 #### [facility] ([id number]) [address], [address] [place], [place] [address]Ianzogkaqwd (Bld) [#/Vol]0.2 10*3/uLLow1.0-3.5ProMedTuscarawas Hospital HospitalComment on above:Performed By: #### PINR, 40401-4, CMP, 60007-5, 2777-1, CBCA, 40583-9 #### [facility] ([id number]) [address], [address] [place], [place] [address]Evvwdoxercc/100 WBC (Bld)1.0 %[facility] Comment on above:Performed By: #### PINR, 39671-1, CMP, 75513-8, 2777-1, CBCA, 48460-7 #### [facility] ([id number]) [address], [address] [place], [place] [address]DBI (RBC) [Entitic mass]29.7 imIfqmtk58-98EnvOfuhum [place] HospitalComment on above:Performed By: #### PINR, 57145-9, CMP, 23897-6, 2777-1, CBCA, 23932-5 #### [facility] ([id number]) [address], [address] [place], [place] [address]ENAG (RBC) [Mass/Vol]33.5 g/gMDsbjcr57-08QagBqvbll [place] HospitalComment on above:Performed By: #### PINR, 25371-5, CMP, 55425-8, 2777-1, CBCA, 82162-9 #### [facility] ([id number]) [address], [address] [place], [place] [address]JJQ (RBC) [Entitic vol]89 cQFndrvy71-321PbcEepwcl [place] HospitalComment on above:Performed By: #### PINR, 37847-2, CMP, 46051-2, 2777-1, CBCA, 46541-9 #### [facility] ([id number]) [address], [address] [place], [place] [address]Gumuquiaohnbss/100 WBC (Bld)6.0 %[facility] Comment on above:Performed By: #### PINR, 32108-9, CMP, 86912-6, 2777-1, CBCA, 30789-5 #### [facility] ([id number]) [address], [address] [place], [place] [address]Rbrbuajse (Bld) [#/Vol]0.5 10*3/uLNormal0-0.9ProLake County Memorial Hospital - West HospitalComment on above:Performed By: #### PINR, 51095-7, CMP, 86554-9, 2777-1, CBCA, 21870-7 #### [facility] ([id number]) [address], [address] [place], [place] [address]Tgaazkzqh/100 WBC (Bld)3.0 %NormalProLake County Memorial Hospital - West Hospital Comment on above:Performed By: #### PINR, 83498-6, CMP, 90978-7, 2777-1, CBCA, 33317-1 #### [facility] ([id number]) [address], [address] [place], [place] [address]Ywmkdjvnstb (Bld) [#/Vol]14.2 10*3/uLHigh1.5-6.6ProLake County Memorial Hospital - West HospitalComment on above:Performed By: #### PINR, 75940-3, CMP, 97935-5, 2777- 1, CBCA, 69507-3 #### [facility] ([id number]) [address], [address] [place], [place] [address]Qkhqzmxe mean volume (Bld) [Entitic vol]7.8 fLNormal7-12 ProMhill crest behavioral health servicesa Glenbeigh HospitalComment on above:Performed By: #### PINR, 57175-4, CMP, 31378-5, 2777-1, CBCA, 59003-7 #### [facility] ([id number]) [address], [address] [place], [place] [address]Cbgdthwzf (Bld) [#/Vol]63 10*3/nYVrt778-420JqqXwbdtl [place] HospitalComment on above:Performed By: #### PINR, 75006-1, CMP, 77772-3, 2777-1, CBCA, 59258-1 #### [facility] ([id number]) [address], [address] [place], [place] [address]FXV COUNT3.90 X10E12/LNormal3.80-5.20ProLake County Memorial Hospital [facility] West Hospital Comment on above:Performed By: #### PINR, 63989-8, CMP, 67873-6, 2777-1, CBCA, 30659-2 #### [facility] ([id number]) [address], [address] [place], [place] [address]BNR morphology finding Nom (Bld)NORMALNormalProLake County Memorial Hospital - West HospitalComment on above:Performed By: #### PINR, 29039-6, CMP, 47895-9, 2777-1, CBCA, 85176-0 #### [facility] ([id number]) [address], [address] [place], [place] [address]MGZ TTFWSESLVF39.0 %NormalProLake County Memorial Hospital - West HospitalComment on above:Performed By: #### PINR, 50115-5, CMP, 85465-6, 7-1, CBCA, 79870-7 #### [facility] ([id number]) [address], [address] [place] [address]ISZ (Bld) [#/Vol]15.8 10*3/uLHigh4.0-11.0ProProvidence HospitalComment on above:Performed By: #### PINR, 57237-3, CMP, 31263-7, 7-1, CBCA, 34268-3 #### [facility] ([id number]) [address], [address] [place], [place] [address]JXB auto differentialon 58-11-5149Srwe form neutrophils/100 WBC (Bld)37 %ProMedica Health SystemErythrocyte distribution width (RBC) [Ratio]15.3 %High11.5 - 15.0 %ProMedica Health SystemHematocrit (Bld) [Volume fraction]34.6 %Low35 - 47 %ProMedica Health SystemHemoglobin (Bld) [Mass/Vol]11.6 g/dLLow11.7 - 15.5 g/dLCleveland Clinic Hillcrest HospitalInterpretation and review of laboratory resultsAbnormalCleveland Clinic Hillcrest HospitalLymphocytes (Bld) [#/Vol]0.2 10*3/uLLow [facility] HospitalLymphocytes/100 WBC (Bld)1 %[facility] Medical CenterH (RBC) [Entitic mass]29.7 pg27 - 34 pgPKettering Health TroyMCHC (RBC) [Mass/Vol]33.5 g/dL32 - 36 g/dLCleveland Clinic Hillcrest HospitalMCV (RBC) [Entitic vol]89 fL80 - 100 [facility] HospitalMetamyelocytes/100 WBC (Bld)6 %[facility] HospitalMonocytes (Bld) [#/Vol]0.5 10*3/uLCleveland Clinic Hillcrest Hospital Monocytes/100 WBC (Bld)3 %[facility] HospitalNeutrophils (Bld) [#/Vol]14.2 10*3/uLWythe County Community HospitalPlatelet mean volume (Bld) [Entitic vol]7.8 fL 7 - 12 [facility] HospitalPlatelets (Bld) [#/Vol]63 10*3/uLLowCleveland Clinic Hillcrest HospitalPolymorphonuclear cells/100 WBC (Bld)NORMALC[facility] Clinic Hillcrest Hospital RBC (Bld) [#/Vol]3.9 10*6/uLFormerly Vidant Duplin Hospitalegmented neutrophils/100 WBC (Bld)53 %[facility] HospitalWBC corrected for nucl RBC Auto (Bld) [#/Vol] 15.8HighAllegheny Valley HospitalCOMPREHENSIVE METABOLIC PANELon 31-78-1393Wnpzjwr [Mass/Vol]2.8 g/dLLow3.2-5.3PMiddletown Hospital Comment on above:Performed By: #### PINR, 34179-3, CMP, 06755-5, 2777-1, CBCA, 30504-4 #### [facility] ([id number]) [address] [facility] [place], [place] [address]OIX [Catalytic activity/Vol]242 U/HYwet14-935YmeXnnwms Ashraf HospitalComment on above:Performed By: #### PINR, 95863-4, CMP, 55082-4, 2777-1, CBCA, 83871-8 #### [facility] ([id number]) [address], [address] [place], [place] [address]LXK [Catalytic activity/Vol]95 U/LHigh0-31ProMedTuscarawas Hospital HospitalComment on above:Performed By: #### PINR, 97305-6, CMP, 23679-8, 2777-1, CBCA, 33699-2 #### [facility] ([id number]) [address], [address] [place], [place] [address]Pymoi gap [Moles/Vol]14 mmol/LNormal5-15ProLake County Memorial Hospital - West HospitalComment on above:Performed By: #### PINR, 25171-1, CMP, 66238-2, 2777-1, CBCA, 23556-8 #### [facility] ([id number]) [address], [address] [place], [place] [address]XGK [Catalytic activity/Vol]189 U/LHigh0-41ProLake County Memorial Hospital - West HospitalComment on above:Performed By: #### PINR, 34509-2, CMP, 16790-7, 2777-1, CBCA, 18181-7 #### [facility] ([id number]) [address] [place], [place] [address]Mkpmtfabo [Mass/Vol]1.0 mg/dLNormal0.3-1.2PRegional Medical Center HospitalComment on above:Performed By: #### PINR, 21736-5, CMP, 84663-7, 2777-1, CBCA, 23669-2 #### [facility] ([id number]) [address], [address] [place], [place] [address]Vghxixo [Mass/Vol]8.1 mg/dLLow8.5-10.5Pro[facility] Comment on above:Performed By: #### PINR, 65108-6, CMP, 71842-1, 2777-1, CBCA, 57629-5 #### [facility] ([id number]) [address] [place], [place] [address]Ucykbowe [Moles/Vol]101 mmol/OHmsytl79-936NjtWbhbph [place] HospitalComment on above:Performed By: #### PINR, 71527-2, CMP, 45733-6, 2777-1, CBCA, 35356-3 #### [facility] ([id number]) [address], [address] [place], [place] [address]PQ2 [Moles/Vol]22 mmol/DShnkhx64-58JdqIeadpzMiddletown Hospital Comment on above:Performed By: #### BERNARD, 48359-0, CMP, 65725-7, 2777-1, CBCA, 72980-1 #### [facility] ([id number]) [address] [place], [place] [address]Mtltxcnjnf [Mass/Vol]1.50 mg/dLHigh0.40-1.00ProProvidence HospitalComment on above:Result Comment: METHOD TRACEABLE TO IDMS STANDARD Performed By: #### BERNARD, 81238-8, CMP, 25734-5, 2777-1, CBCA, 16708-7 #### [facility] ([id number]) [address], [address] [place], [place] [address]NSG/1.73 sq M.predicted among non-blacks MDRD (S/P/Bld) [Vol rate/Area]38 mL/min/{1.73_m2}Low>59ProProvidence HospitalComment on above: Result Comment: Reported eGFR is based on the CKD-EPI 2020 equation that does not use a race coefficient.Performed By: #### PINR, 58019-8, CMP, 81303-8, 2777- 1, CBCA, 97508-6 #### [facility] ([id number]) [address], [address] [place], [place] [address]Kdhhawt [Mass/Vol]110 mg/mLIecu43-42GmiWdsrejProvidence Hospital Comment on above:Performed By: #### PINR, 28245-5, CMP, 40905-0, 2777-1, CBCA, 86086-1 #### [facility] ([id number]) [address], [address] [place], [place] [address]Ritkgiyaj [Moles/Vol]3.1 mmol/LLow3.5-5.0ProProvidence HospitalComment on above:Performed By: #### PINR, 07787-0, CMP, 46596-1, 2777-1, CBCA, 86637-5 #### [facility] ([id number]) [address] [place], [place] [address]Xtojlbq [Mass/Vol]5.8 g/dLLow6.0-8.0[facility] Comment on above:Performed By: #### PINR, 34450-3, CMP, 63209-9, 2777-1, CBCA, 18318-9 #### [facility] ([id number]) [address], [address] [place], [place] [address]Zpppjq [Moles/Vol]137 mmol/TMbeihq510-586DtdJnarek [place] HospitalComment on above:Performed By: #### PINR, 31300-7, CMP, 09447-2, 2777-1, CBCA, 96491-3 #### [facility] ([id number]) [address], [address] [place], [place] [address]Lirn nitrogen [Mass/Vol]21 mg/dLNormal5-27ProProvidence HospitalComment on above:Performed By: #### PINR, 05734-9, CMP, 59295-4, 2777-1, CBCA, 14348-9 #### [facility] ([id number]) [address], [address] [place], [place] [address]Djfqamf Line Insertionon 86-11-0318UqxpSTEPHEN Cobian 05/21/2024 2:27 PM Central Line Insertion [...] to verify the correct patient, procedure, equipment, it support technician and site/side marked as required. Fire Risk [...] during the procedure Complications: none Interventions: none [facility] Screenie SystemProMedica Health SystemComprehensive metabolic panelon 41-36-4418Hkcdtou [Mass/Vol]2.8 g/dLLow3.2 - 5.3 g/dLProCitizens Baptist Health SystemALP [Catalytic activity/Vol]242 U/LHigh39 - 130 U/[facility] SystemALT No additional P-5'-P [Catalytic activity/Vol]95 U/LHigh0 - 31 U/[facility] SystemAnion gap [Moles/Vol]14 mmol/L5 - 15 mmol/LPrHaxtun Hospital District Health SystemAST [Catalytic activity/Vol]189 U/LHigh0 - 41 U/[facility] SystemBilirubin [Mass/Vol]1 mg/dL0.3 - 1.2 mg/dLWayne Hospital SystemCalcium [Mass/Vol]8.1 mg/dLLow8.5 - 10.5 mg/dLProDayton Children'S Hospital SystemChloride [Moles/Vol]101 mmol/L98 - 109 mmol/[facility] Health SystemCO2 [Moles/Vol]22 mmol/L22 - 32 mmol/L [facility] HospitalCreatinine [Mass/Vol]1.5 mg/dLHigh0.40 - 1.00 mg/dL [facility] HospitalComment on above:METHOD TRACEABLE TO [facility] STANDARDeGFR (CKD-EPI)non-race [id number] PINNorthwest Medical CenterComment on above: Reported eGFR is based on the CKD-EPI 2020 equation that does not use a race coefficient. Glucose [Mass/Vol]110 mg/zZPead42 - 99 mg/dLWayne Hospital SystemPotassium [Moles/Vol]3.1 mmol/LLow3.5 - 5.0 mmol/[facility] Health SystemProtein [Mass/Vol]5.8 g/dLLow6.0 - 8.0 g/dLWayne Hospital SystemSodium [Moles/Vol]137 mmol/L134 - 146 mmol/[facility] SystemUrea nitrogen [Mass/Vol]21 mg/dL5 - 27 mg/dLWayne Hospital SystemElectrocardiogram, 12-leadon 05-21-2024 TRACEMASTERVUEWayne Hospital SystemEosinophils/100 WBC Manual cnt (Bld)on [id number]/100 WBC (Bld)Eosinophils/100 leukocytes in Blood by Manual count0.9-7.0[facility] HospitalErythrocyte distribution width Auto (RBC) [Ratio]on 07-01-9635Xdjsetigspm distribution width (RBC) [Ratio] Erythrocyte distribution width [Ratio] by Automated count11.0-15.0[facility]uff[facility] HospitalEstimated glomerular filtration rate (GFR) non- Americanon 89-73-5296JUG/1.73 sq M.predicted among non-blacks MDRD (S/P/Bld) [Vol rate/Area]Estimated glomerular filtration rate (GFR) non- Low>=60 mL/min/1.73m 2FAdena Health SystemFine granular cast count in urine sediment by microscopy (number/low power field )on 73-26-2212Btez Granular Casts LM.LPF (Urine sed) [#/Area]Fine granular cast count in urine sediment by microscopy (number/low power field )[facility] HospitalGlobulin Calc (S) [Mass/Vol]on 94-37-1873Avudauqi (S) [Mass/Vol]Serum globulin measurement by calculation (mass/volume)[facility] HospitalGlucose Glucometer (BldC) [Mass/Vol]on 19-04-0234Jqspyju [Mass/Vol]114 mg/nPQdkl31 - 99 mg/dLProDayton Children'S Hospital SystemInterpretation and review of laboratory resultsAbnormalProOhiohealth Hardin Memorial HospitalProDayton Children'S Hospital SystemGlucose [Mass/Vol]114 mg/yGBndv90-57VlzXmdsbr [facility] HospitalGuidance for percutaneous placement of nephrostomy tube of Kidneyon 97-96-9870BWMR: Image guided percutaneous nephrostomy tube placement, left [...] was then dilated to accommodate a 10 Ethiopian nephrostomy tube. The catheter was secured with a single 0 Prolene suture. Dressing applied. Patient tolerated all procedures well and there were no complications. FINDINGS: Severe left hydronephrosis, fluoroscopic images demonstrated appropriate positioning of nephrostomytube within the collecting system IMPRESSION: Successful image guided placement of left 10 Ethiopian percutaneous nephrostomy tube PLAN: Maintained to gravity [...] percutaneous nephrostomy tube placement. STAFF: Dr. Den hTompson ANESTHESIA: Moderate sedation with Versed 2 mg [...] was then dilated to accommodate a 10 Ethiopian nephrostomy tube. The catheter was secured with a single 0 Prolene suture. Dressing applied. Patient tolerated all procedures well and there were no complications. FINDINGS: Severe left hydronephrosis, fluoroscopic images demonstrated appropriate positioning of nephrostomytube within the collecting system IMPRESSION: Successful image guided placement of left 10 Ethiopian percutaneous nephrostomy tube PLAN: Maintained to gravity drainage Follow-up urine culture Routine catheter exchange should be performed in 6-8 weeks pending definitive urologic management Finalized by Den Thompson MD on 05/21/2024 5:07 PM [facility] HospitalRadiology Study observation (narrative)[facility] HospitalGuidance for percutaneous placement of nephrostomy tube of KidneyOrdered By: Den Thompson on 63-68-9350EznZsseoiKettering Health Troy Work Phone: Hematocrit Auto (Bld) [Volume fraction]on 05-21-2024 Hematocrit (Bld) [Volume fraction]Hematocrit [Volume Fraction] of Blood by Automated count36.0-48.0[facility] HospitalHemoglobin [Mass/volume] in Bloodon 64-82-8094Wnmfisuzff (Bld) [Mass/Vol]Hemoglobin [Mass/volume] in Blood12.0-16.0[facility] HospitalIR PERC NEPH TUBE LT + NGRAM + S AND Ion 63-12-3030LH PERC NEPH TUBE LT + NGRAM + [...] was then dilated to accommodate a 10 Ethiopian nephrostomy tube. The catheter was secured with a single 0 Prolene suture. Dressing applied. Patient tolerated all procedures well and there were no complications. FINDINGS: Severe left hydronephrosis, fluoroscopic images demonstrated appropriate positioning of nephrostomytube within the collecting system IMPRESSION: Successful image guided placement of left 10 Ethiopian percutaneous nephrostomy tube PLAN: Maintained to gravity drainage Follow-up urine culture Routine catheter exchange should be performed in 6-8 weeks pending definitive urologic management Finalized by Den Thompson MD on 05/21/2024 5:07 PMNormalProMedica Glenbeigh HospitalLaboratory - Chemistry and Chemistry - challengeon 67-36-5708Jbpjovr [Moles/Vol]4.9 mmol/LCritically high0.4-2.0[facility] Comment on above:RESULTS CALLED TO DR. RIVREABilirubin Ql (U)SMALLAbnormal NEGATIVEBlanchard Valley Health System Bluffton HospitalGlucose (U) [Mass/Vol]NegativeNEGATIVE [facility] HospitalKetones Ql (U)TRACE mg/dLAbnormalNEGATIVE [facility] HospitalpH (U)5.5 [pH]5.0-9.0[facility]ille Hospitalpecific gravity (U) [Rel density]1.0251.005-1.025[facility] HospitalUrobilinogen Qn (U)1.0 {Joon'U}/dL0.2-1.0[facility] HospitalAlbumin [Mass/Vol]2.4 g/dLLow3.4-5.0[facility] HospitalALP [Catalytic activity/Vol]390 U/HVljy58-731NusrtexriBlanchard Valley [facility] System Bluff[facility] HospitalALT [Catalytic activity/Vol]93 U/OMywq61-77DghjaxrcqBlanchard Valley Health System Bl[facility] HospitalAST [Catalytic activity/Vol]190 U/NYkca17-38MnuuxuxzcBlanchard Valley Health System Bluff[facility] HospitalBilirubin [Mass/Vol]1.6 mg/dLHigh0.2-1.0[facility] Calcium [Mass/Vol]9.5 mg/dL8.5-10.1FAdena Health SystemChloride [Moles/Vol]98 mmol/T56-960LmdsdiwysBlanchard Valley Health System Bluff[facility] HospitalCO2 [Moles/Vol]24.3 mmol/L21.0-32.0[facility] HospitalCreatinine [Mass/Vol]1.50 mg/dL High0.55-1.02[facility] HospitalGFR/1.73 sq M.predicted MDRD (S/P/Bld) [Vol rate/Area]42 mL/min/{1.73_m2}Low>=60 mL/min/1.73m 2FAdena Health SystemGlucose [Mass/Vol]116 mg/hUEvsh19-676YlsbxqlxqBlanchard Valley [facility] System [facility] HospitalPotassium [Moles/Vol]2.6 mmol/LCritically low3.5-5.1FAdena Health SystemComment on above:RESULTS CALLED TO SHARRI DEGROOT RN @BY Barb Connors at 0450Protein [Mass/Vol]7.0 g/dL6.4-8.2FBrecksville VA / Crille Hospitalodium [Moles/Vol]138 mmol/T998-142WgxumqltiBlanchard Valley Health System Bluff[facility] HospitalUrea nitrogen [Mass/Vol]19.0 mg/dLHigh7.0-18.0[facility] HospitalUrea nitrogen/Creatinine [Mass ratio]12.7 mg/mgBlanchard Valley Health System Bluffton HospitalLaboratory - Hematology and Cell countson 85-13-6341Xyem form neutrophils/100 WBC (Bld)1.0 %0-5FAdena Health System Lymphocytes/100 WBC (Bld)12.0 %Low20.5-60.0[facility] Monocytes/100 WBC (Bld)15.0 %High1.7-12.0[facility] Laboratory - Microbiology and Antimicrobial susceptibilityon 05-21-2024 SARS-CoV-2 (COVID-19) RNA VENICE+probe Ql (Unsp spec)NegativeNEGATIVEBlanchard Valley Health System Bluff[facility] HospitalComment on above:This test has not been [...] Org specific cx Ql (Vag fld)Not detectedNOT DETECTSalem Regional Medical CenterLaboratory - Specimen informationon 03-05-2434Mcnzztywwa (U)CLOUDYAbnormal CLEARBlanchard Valley Health System Bluffton HospitalColor (U)DK. YELLOWYELLOWBlanchard Valley Health System [facility]uff[facility] HospitalLaboratory - Urinalysison 06-79-5215Ttqbtfoht sediment LM Ql (Urine sed)[facility] HospitalLeukocyte esterase Test strip Ql (U)TRACEAbnormalNEGATIVEBlanchard [facility] HospitalMucus Ql (Urine sed) SMALLAbnormalNONE SEENBlanchard Valley [facility] System [facility] HospitalNitrite Ql (U)Positive AbnormalNEGATIVEBlanchard Valley [facility] HospitalProtein Ql (U)>=300 mg/dL AbnormalNEG/TRACEBlanchard Valley Health System Bluff[facility] HospitalLactate (P jannette) [Moles/Vol]on 14-10-8015Qpnnlppebwnwlo and review of laboratory resultsAbnormalProMedica Health SystemProMedica Health SystemLACTATE W/REFLEX2.4 mmol/LHigh0.4-2.0 UK HealthcareComment on above:Performed By: #### 16147-4 ####[facility] ([id number])[address], [place] [address] Interpretation and review of laboratory resultsAbnormalProAllegheny Valley HospitalLACTATE W/REFLEX2.3 mmol/LHigh0.4-2.0ProProvidence HospitalComment on above:Performed By: #### 64373-7 #### [facility] ([id number]) [address], [address] [place], [place] [address]Rzyagod w/ Reflexon 24-35-5652Knfgzxb (P jannette) [Moles/Vol]2.4 mmol/LHigh0.4 - 2.0 mmol/LProMedica Health SystemLactate (P jannette) [Moles/Vol]2.3 mmol/LHigh0.4 - 2.0 mmol/LProMedZanesville City Hospital SystemLeukocytes [#/volume] corrected for nucleated erythrocytes in Blood by Automated counon 82-07-2962MQD corrected for nucl RBC Auto (Bld) [#/Vol]Leukocytes [#/volume] corrected for nucleated erythrocytes in Blood by Automated counLow4.0-11.0[facility] HospitalMAGNESIUMon 31-02-0722Vzdboviti [Mass/Vol]1.1 mg/dLLow1.8-2.6UK HealthcareCommunson healthcare gray[facility] on above:Performed By: #### PINR, 05243-3, CMP, 47004-4, 2777-1, CBCA, 09910-8 #### [facility] ([id number]) [address], [address] [place], [place] [address]EOS Auto (RBC) [Entitic mass]on 97-50-0824TZH (RBC) [Entitic mass]MCH [Entitic mass] by Automated count26.7-34.0[facility] HospitalMCHC Auto (RBC) [Mass/Vol]on 34-77-7693IPFP (RBC) [Mass/Vol]MCHC [Mass/volume] by Automated count29.9-35.2FAdena Health SystemMCV Auto (RBC) [Entitic vol]on 99-80-7849SYJ (RBC) [Entitic vol]MCV [Entitic volume] by Automated count81.0-99.0[facility] HospitalMagnesiumon 36-36-3237Anrblqkiu [Mass/Vol]1.1 mg/dLLow1.8 - 2.6 mg/dLCleveland Clinic Hillcrest Hospital Myelocytes/100 WBC Manual cnt (Bld)on 04-62-2451Hypnojjowl/100 WBC (Bld) Myelocytes/100 leukocytes in Blood by Manual countBlanchard Valley Health System Bluffton HospitalNo Panel Informationon 33-21-7221Qcwrensqxubkyk and review of laboratory resultsAbnormalCleveland Clinic Hillcrest HospitalProOhiohealth Hardin Memorial HospitalProOhiohealth Hardin Memorial HospitalTroponin I High Mrwqjwwfuqu2378.5 pg/mLCritically high4.0-51.3FAdena Health SystemComment on above:RESULTS CALLED TO Demetria Starks RNCUT-OFF [...] DIAGNOSTIC AND CLINICAL INFORMATION.Miscellaneous Test CommentSee comment [facility] HospitalComment on above:Specimen Source: UCATH - Urine Catheterized - Urine Cath - 200.300Urine BacteriaMODERATE #/HPFAbnormalNONE Madison HealthUrine Culture Result 1\R\ Urine Culture, RoutineBlanchard Valley Health System Bluffton HospitalUrine Microscopic ReviewYEDayton VA Medical CenterUrine Occult BloodLARGEAbnormalNEGATIVEBlanchard [facility] System [facility] HospitalUrine Other CastsSEEN #/LPFAbnormalNONE Madison HealthUrine Other CrystalsSeen #/HPFAbnormalNone White HospitalUrine HLC00-10 #/HPFAbnormal0-2FAdena Health System Urine Squamous Epithelial CellsMODERATE #/LPFAbnormalNONE/RAREBlanchard Valley Health System Bluffton HospitalUrine VYI01-38 #/HPFAbnormalNONE SEENBlanchard Valley Health System Bluff[facility] HospitalAbsolute Basophils (Manual)0.00 10 3/uL0.00-0.10[facility] HospitalBand Neutrophils # (Manual)0.0 10 3/uL0.0-0.3FAdena Health SystemEosinophils # (Manual)0.01 10 3/uL0.00-0.70[facility] HospitalLymphocytes # (Manual)0.20 10 3/uLLow1.20-3.80[facility] HospitalMonocytes # (Manual)0.25 10 3/uLLow0.30-0.80[facility] HospitalMyelocytes # (Manual)0.03[facility] HospitalReactive Lymphocytes0.06[facility] HospitalReactive Lymphocytes4.0 % [facility] Hospitalegmented Neutrophils # (Manual)1.10 10 3/uLLow 1.4-6.5FAdena Health SystemBedside Influenza Type A AntigenNegative [facility] HospitalComment on above:Negative for Flu A protein antigen. Infection due to Flu Acannot be ruled out. Flu A antigen in thesample may bebelow the detection limit of the test.Bedside Influenza Type B Antigen NegativeBlanchard Valley Health System Bluffton HospitalComment on above:Negative for Flu B protein antigen. Infection due to Flu Bcannot be ruled out. Flu B antigen in the sample may bebelow the detection limit of the test.A.calcoaceticus-baumannii cmplx PCRNot detectedNOT [facility] HospitalBacteroides fragilis (PCR)Not detectedNOT [facility] HospitalBlood Culture SourceBloodBlanchard Valley [facility] System [facility] HospitalCandida albicans (PCR)Not detectedNOT DETECTSalem Regional Medical CenterCandida auris (PCR)Not detectedNOT DETECTSalem Regional Medical CenterCandida glabrata (PCR)Not detectedNOT [facility] HospitalCandida krusei (PCR)Not detectedNOT DETECTSalem Regional Medical CenterCandida parapsilosis (PCR) Not detectedNOT DETECTSalem Regional Medical CenterCandida tropicalis (PCR) Not detectedNOT [facility] HospitalCrypto neoformans/gattii (PCR)(LAB)Not detectedNOT [facility] HospitalCTX-M ESBL (PCR)Not detectedNOT [facility] HospitalEnterobacter cloacae complex (PCR)Not detectedNOT [facility] Enterobacterales (PCR)DetectedNOT [facility] Comment on above:RESULTS CALLED TO FRANKY MACHADO,PAEnterococcus faecalis PCR Not detectedNOT [facility] HospitalEnterococcus faecium PCR Not detectedNOT [facility] HospitalEscherichia coli Result DetectedNOT [facility] HospitalComment on above:RESULTS CALLED TO FRANKY MACHADO,PAHaemophilus influenzae DNANot detectedNOT [facility] HospitalIMP (blaIMP) Carbap Res Gene (PCR)Not detected NOT [facility] HospitalKlebsiella aerogenes (PCR)Not detectedNOT [facility] HospitalKlebsiella oxytoca (PCR)Not detectedNOT [facility] HospitalKlebsiella pneumoniae group (PCR)Not detectedNOT [facility] HospitalKPC (blaKPC) Detection (PCR)Not detectedNOT [facility] HospitalListeria monocytogenes (PCR)Not detectedNOT [facility] HospitalMCR-1 Resistance GeneNot detectedNOT [facility] HospitalmecA/C & MREJ Antimicrob Resist GenNOT APPLICABLENOT [facility] HospitalmecA-Methicillin Resistance GeneNOT APPLICABLENOT [facility] HospitalNDM (blaNDM) Detection (PCR)Not detectedNOT [facility] HospitalNeisseria meningitidis (PCR)Not detectedNOT [facility] HospitalProteus species (PCR)Not detectedNOT [facility] HospitalPseudomonas aeruginosa (PCR)Not detected NOT DETECTAvita Health Systemalmonella spp. (PCR)Not detectedNOT TriHealtherratia marcescens (PCR)Not detected NOT DETECTAvita Health Systemtaphylococcus aureus (PCR)(LAB)Not detectedNOT TriHealthtaphylococcus epidermidis (PCR)Not detectedNOT TriHealthtaphylococcus lugdunensis (TEM-PCRNot detectedNOT [facility] Staphylococcus species (PCR)Not detectedNOT TriHealthtenotroph. maltophilia (PCR)Not detectedNOT TriHealthtreptococcus pneumoniae (PCR)Not detectedNOT TriHealthtreptococcus pyogenes (PCR)(LAB)Not detectedNOT DETECTE [facility] Hospitaltreptococcus species (PCR)Not detectedNOT TriHealthyn OXA-48-like Carb Res Gene (PCR)Not detectedNOT [facility] HospitalVanA/B-Vancomycin Resistance GenesNOT APPLICABLENOT [facility] HospitalVIM (blaVIM) Carbap Res Gene (PCR)Not detectedNOT [facility] HospitalNo Panel InformationOrdered By: FABIEN RIVERA on 84-99-2409Gfvllhuz Identification OnlyBlanchard Valley Health System Bluffton HospitalNo Panel InformationOrdered By: Senia Marker on 35-59-4911Mxadzjsj Identification [facility] HospitalPHOSPHORUSon 78-91-4409Rvxatudkn [Mass/Vol]2.8 mg/dLNormal2.4-4.9 [facility] HospitalComment on above:Performed By: #### PINAbby, 82260-8, CMP, , 2776-, CBCA, 18382-1 #### [facility] ([id number]) [address] [place], [place] [address]JDTWCUPHHqi 52-63-2878Iwzcfylut [Moles/Vol]3.8 mmol/LNormal 3.5-5.0ProMedica Peoria HospitalComment on above:Performed By: #### 2823-3 ####[facility] ([id number])[address], [place] [address]GQPJIKZ AND INRon 86-43-7934QOJ Coag (PPP) [Relative time]1.2 {INR}High 0.8-1.1ProMedica [facility]oria HospitalComment on above:Performed By: #### PINR, 85988- 9, CMP, 69456-1, 2777-1, CBCA, 08012-4 #### [facility] ([id number]) [address], [address] [place], [place] [address]FF Coag (PPP) [Time]14.1 sHigh9.8-13.2PMiddletown Hospital Comment on above:Performed By: #### PINR, 02780-2, CMP, 47890-7, 2777-1, CBCA, 83785-6 #### [facility] ([id number]) [address], [address] [place], [place] [address]Gydrtrgszwyp 41-43-6923Ygtrmqrwg [Mass/Vol]2.8 mg/dL2.4 - 4.9 mg/dLCleveland Clinic Hillcrest HospitalPlatelet mean volume Auto (Bld) [Entitic vol]on 72-98-7011Kfqlkpgg mean volume (Bld) [Entitic vol]Platelet mean volume [Entitic volume] in Blood by Automated countLow9.5-13.5FAdena Health System Platelets Auto (Bld) [#/Vol]on 32-90-9459Bneqcusaa (Bld) [#/Vol]Platelets [#/volume] in Blood by Automated atregIyr565-361MnbcaqojoBlanchard Valley Health System Bluffton HospitalPotassiumon 70-38-7951Lgjxoxkgt [Moles/Vol]3.8 mmol/L3.5 - 5.0 mmol/L [facility] SystemPotassium [Moles/Vol]on 14-23-6182VixIoxmryKettering Health Troy Procalcitoninon 89-57-3809Eueuqtawzydqn IA [Mass/Vol]463.36 ng/mLHighNINF - 0.05 ng/mLCleveland Clinic Hillcrest HospitalComment on above:NOTE <0.50 ng/mL - Low risk of severe sepsis and/or septic shock. <2.00 ng/mL - Recommend retesting within 6-24 hours. >2.00 ng/mL - High risk of sepsis and/or septic shock. Procalcitonin IA [Mass/Vol]on 12-76-3700Imprvkcooywwxa and review of laboratory resultsAbnormalProDayton Children'S Hospital SystemProDayton Children'S Hospital AmcoehJSHGUYOORMAUL776.36 ng/mLHigh<0.05UK HealthcareComment on above:Result Comment: NOTE <0.50 ng/mL - Low risk of severe sepsis and/or septic shock. <2.00 ng/mL - Recommend retesting within 6-24 hours. >2.00 ng/mL - High risk of sepsis and/or septic shock.Performed By: #### PINR, 11915-2, CMP, 61084-2, 2777-1, CBCA, 41469-8 #### [facility] ([id number]) [address] [place], [place] [address]Xkwxmlu & INRon 07-07-4023CBV Coag (PPP) [Relative time]1.2 {INR}HighWayne Hospital SystemInterpretation and review of laboratory results AbnormalCleveland Clinic Hillcrest HospitalPT Coag (PPP) [Time]14.1 [facility] SystemRBC Auto (Bld) [#/Vol]on 08-34-0403BYO (Bld) [#/Vol]Erythrocytes [#/volume] in Blood by Automated count4.20-5.40[facility] Segmented neutrophils/100 WBC Manual cnt (Bld)on 15-62-1657Gfksidmcs neutrophils/100 WBC (Bld)Manual blood segmented neutrophils/100 leukocytes 43.0-75.0Brecksville [facility] Crille Hospitalerum or plasma albumin/globulin mass ratioon 63-55-0227Mwvetpx/Globulin [Mass ratio]Serum or plasma albumin/globulin mass ratioBrecksville VA / Crille Hospitalerum or plasma anion gap determinationon 07-15-0062Pttwc gap [Moles/Vol]Serum or plasma anion gap determinationBlanchard Valley Health System Bluffton HospitalURINALYSISon 25-99-2968Hmaxhfkhx Ql (U)NegativeNormalNEGProMercy Health Defiance Hospitalca Glenbeigh HospitalComment on above:Performed By: #### UA ####[facility] ([id number])[address], [place] [address]CZPAF/HGBMODERATEAbnormalNEGProMercy Health Defiance Hospitalca Glenbeigh HospitalComment on above:Performed By: #### UA ####[facility] ([id number])[address] [address]Cyamm (U)BROWNAbnormalYELLOWProMedica Ashraf HospitalComment on above:Performed By: #### UA ####[facility] ([id number])[address] [address]Sqpdpki Ql (U)Negative NormalNEGProMedica Ashraf HospitalComment on above:Performed By: #### UA ####[facility] ([id number])[address], [address] [address]Nwcmoaj Ql (U)NegativeNormalNEGProMedica Ashraf HospitalComment on above: Performed By: #### UA ####[facility] ([id number])[address],[place] [address]Rfufmtrhh esterase Test strip Ql (U)Large AbnormalNEGProMedica Ashraf HospitalComment on above:Performed By: #### UA ####[facility] ([id number])[address],[place] [address]Oxcgurh Ql (U)NegativeNormalNEGProMedica Ashraf HospitalComment on above: Performed By: #### UA ####[facility] ([id number])[address] [address]mQ (U)7.0 [pH]Normal5.0-8.5ProMedica Ashraf HospitalComment on above:Performed By: #### UA ####[facility] ([id number])[address], [address] [address]Etioisc Ql (U)300 mg/dL AbnormalNEGProMedica Ashraf HospitalComment on above:Performed By: #### UA ####[facility] ([id number])[address] [address]P.B.CELLS>928Ewhp8-0DbaYigcpe Ashraf HospitalComment on above:Performed By: #### UA ####[facility] ([id number])[address] [address] [place] [address]Ulgxtrou gravity (U) [Rel density]1.610Fgfieq3.003-1.035 [facility] HospitalComment on above:Performed By: #### UA ####[facility] ([id number])[address] [address] [place] [address] TURBIDITYCLOUDYAbnormalCLEARProMedica Peoria HospitalComment on above:Performed By: #### UA ####[facility] ([id number])[address] [address]Pwlsfbvorp dipstick W Reflex Microscopic panel (U)URINE RECEIVED WITHOUT PRESERVATIVE-DELAYS IN TRANSPORT MAY AFFECT RESULTS.INTERPRET WITH CAUTION AND CLINICAL CORRELATION IS RECOMMENDED.NormalProMedica Peoria HospitalComment on above:Performed By: #### UA ####[facility] ([id number])[address] [address]Lidwqaxbuzty (U) [Mass/Vol] mg/dLNormal<1.1PRegional Medical Center HospitalComment on above:Performed By: #### UA ####[facility] ([id number])[address] [address] [place] [address]E.B.CELLS>904Klnf6-0ByeBmmbww [place] HospitalComment on above:Performed By: #### UA ####[facility] ([id number])[address] [address] [place] [address]UCY CLUMPSMANYAbnormalNONEPRegional Medical Center HospitalComment on above:Performed By: #### UA ####[facility] ([id number])[address] [address]AGZLK CULTUREon 34-86-1918Ukhosokk identified Cx Nom (U)CULTURE RESULTS <10,000 ORGANISMS/ML NORMAL URO GENITAL FLORANoPremier Health Miami [facility] Hospital Comment on above:Performed By: #### PINR, 82998-8, CMP, 72257-4, 2777-1, CBCA, 25163-9 #### [facility] ([id number]) [address] [place], [place] [address]Vzdzwcfkdjiz 86-52-6645Kjvnhhneb Ql (U)NegativeNegative^Negative [facility] Springfieldedica Health SystemColor (U)BROWNAbnormalYELLOW^YELLOWWayne Hospital SystemGlucose (U) [Mass/Vol]NegativeNegative^Negative mg/dLCleveland Clinic Hillcrest HospitalHemoglobin Auto test strip Ql (U)MODERATEAbnormalNegative^Negative UC Healtha Health SystemInterpretation and review of laboratory resultsAbnormal ProMst. vincent's hospital Health SystemKetones (U) [Mass/Vol]NegativeNegative^Negative mg/dL [facility] SystemLeukocyte clumps LM Ql (Urine sed)MANYAbnormalNONE^NONE [facility] SystemLeukocyte esterase Auto test strip Ql (U)LargeAbnormal Negative^NegativeTrinity Health System Health SystemNitrite Auto test strip Ql (U)Negative Negative^NegativeWayne Hospital SystempH (U)7 [pH]5.0 - 8.5PLafayette General Medical Center Health SystemProtein (U) [Mass/Vol]300 mg/dLAbnormalNegative^NegativeWayne Hospital SystemRBC Auto (Urine sed) [#/Area][facility] SystemSpecific gravity Refractometry automated (U) [Rel density]1.0351.003 - 1.035Way[facility] Hospital SystemTurbidity Ql (U)CLOUDYAbnormalCLEAR^CLEARWayne Hospital SystemUrinalysis microscopic panel Auto (Urine sed) [#/Area]URINE RECEIVED WITHOUT PRESERVATIVE- DELAYS IN TRANSPORT MAY AFFECT RESULTS.INTERPRET WITH CAUTION AND CLINICAL CORRELATION IS RECOMMENDED.ProMhill crest behavioral health servicesa Health SystemUrobilinogen Qn (U)NINF [facility] SystemWBC Auto (Urine sed) [#/Area][facility] ProMRegions Hospital SystemXR CHEST 1 VWon 76-65-2604BO CHEST 1 VWXR CHEST 1 VW Single view chest XR CHEST 1 VW History: central venous line placement verification Comparison: May 21 at 4:24 AM current examination 2:20 PM Impression: * No consolidation or pleural fluid. No acute findings. * Central line placed at the superior vena cava. Poor inspiration without acute disease. No pneumothorax. Finalized by Jorge Mcdaniels MD on 05/21/2024 2:30 PMNormalUK HealthcareXR Chest Single viewon 63-73-9183Ynfiny view chest XR CHEST 1 VW History: [...] Jorge Mcdaniels MD on 05/21/2024 2:30 PM [facility] HospitalRadiology Study observation (narrative)[facility] HospitalXR Chest Single viewOrdered By: Jorge Mcdaniels on 89-02-9314VmzRvspxbKettering Health Troy Work Phone: aPTT Coag (PPP) [Time]on 23-10-4145tWHK Coag (Bld) [Time]29 gQquklu71-71VllHeicdvUK HealthcareComment on above:Performed By: #### PINR, 07985-4, CMP, 16974-9, 2777-1, CBCA, 19249-2 #### [facility] ([id number]) [address] [place], [place] [address]Bnfijyzcb virus B Ag [Presence] in Upper respiratory specimen by Rapid immunoassayon 55-81-2997TNQHA Ag IA.rapid Ql (Nph)PositiveBlanchard Valley Health System Bluffton HospitalNo Panel Informationon 76-81-7259Tvdxithve Type A (Rapid) NegativeBlanchard Valley Health System Bluffton HospitalPOC SARS CoV-2 AntigenNegativeBlanchard Valley Health System Bluffton HospitalXR KUB 1 VIEWon 01-39-4556IH KUB 1 VIEWEXAMINATION: XR KUB 1 VIEW [...] Electronically authenticated by: TOM NEAL Date: 2022-08-09 08:52NoalThCleveland Clinic Hillcrest Hospital CBC AUTO DIFFon 95-77-8317NLHY #0.0 103/ulNormal 0.0-0.1Summa HealthComment on above:Performed By: #### HFPFCBC #### [facility] [address] [address] [address] Caitlin Pulidosophils/100 WBC (Bld)0.4 %Normal0.2-2.0[facility] Comment on above:Performed By: #### HFPFCBC #### [facility] [address] [address] [address] Caitlin Pritchard #0.2 103/ulNormal0.0-0.7The [facility] Health CenterComment on above: Performed By: #### HFPFCBC #### [facility] [address] [address] [address] Caitlin Harmanosinophils/100 WBC (Bld)2.5 %Normal0.9-7.0The [facility] Comment on above:Performed By: #### HFPFCBC #### [facility] [address] [address] [address] Caitlin Harmanrythrocyte distribution width (RBC) [Ratio]13.5 %Owmmst75.0-15.0 The [facility] CenterComment on above:Performed By: #### HFPFCBC #### [facility] [address] [place] [address] Dr. Caitlin Esparzaatocrit (Bld) [Volume fraction]41.9 %Giuedl32.0-48.0The [facility] CenterComment on above:Performed By: #### ARLENEFCBC #### [facility] [address] [place] [address] Dr. Caitlin WinstonHemoglobin (Bld) [Mass/Vol]13.7 g/vOGtieoa74.0-16.0The [facility] CenterComment on above:Performed By: #### ARLENEFCBC #### [facility] [address] [place] [address] Dr. Caitlin Carson #0.01 10e3/ulNormal0.00-0.03The [facility] CenterComment on above:Performed By: #### MAAMEBC #### [facility] [address] [place] [address] Dr. Caitlin Carson %0.1 %Normal0.0-0.5The [facility] CenterComment on above: Performed By: #### ARLENEFCBC #### [facility] [address] [place] [address] Dr. Caitlin Torres #3.2 103/ulNormal1.2-3.8The [facility] CenterComment on above:Performed By: #### ARLENEFCBC #### [facility] [address] [place] [address] Dr. Caitlin Richeyhocytes/100 WBC (Bld)42.0 %Vkhgqw57.5-60.0The [facility] CenterComment on above:Performed By: #### HFPFCBC #### [facility] [address] [place] [address] Dr. Caitlin Rowell (RBC) [Entitic mass]29.4 ljUcojgy93.7-34.0The [facility] CenterComment on above:Performed By: #### MAAMEBC #### [facility] [address] [address] [address] Caitlin IngramHC (RBC) [Mass/Vol]32.7 g/jFCjlaki63.9-35.2The [facility] CenterComment on above:Performed By: #### HFPFCBC #### [facility] [address] [place] [address] Dr. Caitlin IngramV (RBC) [Entitic vol]89.9 cBQcjbtt69.0-99.0The [facility] CenterComment on above:Performed By: #### HFPFCBC #### [facility] [address] [place] [address] Dr. Caitlin Salas #0.5 103/ulNormal0.3-0.8The [facility] CenterComment on above:Performed By: #### HFPFCBC #### [facility] [address] [place] [address] Dr. Caitlin Kempocytes/100 WBC (Bld)7.1 %Normal1.7-12.0The [facility] Comment on above:Performed By: #### HFPFCBC #### [facility] [address] [place] [address] Dr. Caitlin Abraham #3.6 103/ulNormal1.4-6.5The [facility] CenterComment on above:Performed By: #### HFPFCBC #### [facility] [address] [place] [address] Dr. Caitlin Kennyutrophils/100 WBC (Bld)47.9 %Lsxjrd36.0-75.0The [facility] CenterComment on above:Performed By: #### HFPFCBC #### [facility] [address] [place] [address] Dr. Caitlin Schultzlet mean volume (Bld) [Entitic vol]9.2 fLCritically low 9.5-13.5The [facility] CenterComment on above:Performed By: #### HFPFCBC #### [facility] [address] [place] [address] Dr. Caitlin WinstonPLT203 103/bmArlabx803-503Qbi Sacha HospitalComment on above: Performed By: #### HFPFCBC #### [facility] [address] [place] [address] Dr. Caitlin WinstonRBC4.66 106/ulNormal4.20-5.40The [facility] on above:Performed By: #### HFPFCBC #### [facility] [address] [place] [address] Dr. Caitlin WinstonWBC7.6 103/ulNormal4.0-11.0The [facility] on above: Performed By: #### HFPFCBC #### [facility] [address] [place] [address] Dr. Caitlin BelleFAIR PROFILEon 76-81-2918Artuahm [Mass/Vol]3.6 g/dLNormal 3.4-5.0The [facility] on above:Performed By: #### HFPF #### [facility] [address] [place] [address] Dr. Caitlin WinstonAlbumin/Globulin [Mass ratio]0.9 {ratio}NormalThe [facility] CenterCommunson healthcare [facility] on above:Performed By: #### HFPF #### [facility] [address] [place] [address] Dr. Caitlin Robles [Catalytic activity/Vol]87 U/FBwooej32-350Egn [facility] on above:Performed By: #### HFPF #### [facility] [address] [place] [address] Dr. Caitlin Dacosta [Catalytic activity/Vol]20 U/FNbryjq92-98Fch [facility] on above:Performed By: #### HFPF #### [facility] [address] [place] [address] Dr. Caitlin Melchor [Catalytic activity/Vol]15 U/HAdvmzj27-10Kci [facility] on above:Performed By: #### HFPF #### [facility] [address] [place] [address] Dr. Caitlin WinstonBilirubin [Mass/Vol]0.4 mg/dLNormal0.2-1.0[facility] Comment on above:Performed By: #### HFPF #### [facility] [address] [address] [address] Caitlin WinstonCalcium [Mass/Vol]8.7 mg/dLNormal8.5-10.1[facility] Comment on above:Performed By: #### HFPF #### [facility] [address] [address] [address] Caitlin WinstonChloride [Moles/Vol]102 mmol/LWvgxhp17-646Gub [facility] Comment on above:Performed By: #### HFPF #### [facility] [address] [address] [address] Caitlin WinstonCHOL-HDL RATIO NORMSSycamore Medical CenterComment on above:Result Comment: 3.3 - 4.4 LOW RISK 4.4 - 7.1 AVERAGE RISK 7.1 - 11.0 MODERATE RISK >11.0 HIGH RISKPerformed By: #### HFPF #### [facility] [address] [place] [address] Dr. Caitlin Alexanderesterol [Mass/Vol]180 mg/dLNormal<=200[facility] Comment on above:Performed By: #### HFPF #### [facility] [address] [address] [address] Caitlin WinstonCholesterol in HDL [Mass/Vol]57 mg/iSWlokhe33-07XqiSumma HealthComment on above:Performed By: #### HFPF #### [facility] [address] [address] [address] Caitlin WinstonCholesterol in LDL [Mass/Vol]107.8 mg/dLMercy Health St. Vincent Medical CenterComment on above:Performed By: #### HFPF #### [facility] [address] [place] [address] Dr. Caitlin Alexanderesterrayf.total/Cholesterol in HDL [Mass ratio]3.2 {ratio} NormalSumma HealthComment on above:Performed By: #### HFPF #### [facility] [address] [address] [address] Caitlin WinstonCO2 [Moles/Vol]28.3 mmol/YGliwwf47.0-32.0[facility] Comment on above:Performed By: #### HFPF #### [facility] [address] [address] [address] Caitlin WinstonCreatinine [Mass/Vol]0.63 mg/dLNormal0.55-1.02Summa HealthComment on above:Performed By: #### HFPF #### [facility] [address] [place] [address] Dr. Caitlin WinstonGlobulin (S) [Mass/Vol]3.8 g/dLMercy Health St. Vincent Medical CenterComment on above:Performed By: #### HFPF #### [facility] [address] [place] [address] Dr. Caitlin WinstonGlucose [Mass/Vol]96 mg/oHJhscot56-902YzaSumma Health Comment on above:Performed By: #### HFPF #### [facility] [address] [place] [address] Dr. Caitlin WinstonHDL NORMAL> or = 60 mg/dl - LOW CARDIOVASCULAR RISK <40 mg/dl - HIGH CARDIOVASCULAR RISKMercy Health St. Vincent Medical CenterComment on above:Performed By: #### HFPF #### [facility] [address] [place] [address] Dr. Caitlin WinstonLDL CALC NORMALSEE BELOWMercy Health St. Vincent Medical CenterComment on above:Result Comment: <100 mg/dl OPTIMAL 100 - 129 mg/dl NEAR OR ABOVE OPTIMAL 130 - 159 mg/dl BORDERLINE HIGH 160 - 189 mg/dl HIGH >190 mg/dl VERY HIGH Performed By: #### HFPF #### [facility] [address] [place] [address] Dr. Caitlin WinstonPotassium [Moles/Vol]3.9 mmol/LNormal3.5-5.1[facility] Comment on above:Performed By: #### HFPF #### [facility] [address] [place] [address] Dr. Caitlin WinstonProtein [Mass/Vol]7.4 g/dLNormal6.4-8.2The [facility] Comment on above:Performed By: #### HFPF #### [facility] [address] [place] [address] Dr. Caitlin WinstonSodium [Moles/Vol]139 mmol/GBztmdr873-071Tki [facility] Comment on above:Performed By: #### HFPF #### [facility] [address] [place] [address] Dr. Caitlin WinstonTriglyceride [Mass/Vol]76 mg/dLNormal<=150The [facility] Comment on above:Performed By: #### HFPF #### [facility] [address] [place] [address] Dr. Caitlin WinstonTSH2.462 uIU/mLNormal0.358-3.740Summa HealthComment on above:Performed By: #### HFPF #### [facility] [address] [place] [address] Dr. Caitlin WinstonUrea nitrogen [Mass/Vol]23.0 mg/dLCritically high7.0-18.0The [facility] CenterComment on above:Performed By: #### HFPF #### [facility] [address] [place] [address] Dr. Caitlin WinstonUrea nitrogen/Creatinine [Mass ratio]36.5 mg/mgNoUniversity Hospitals St. John Medical CenterComment on above:Performed By: #### HFPF #### [facility] [address] [place] [address] Dr. Caitlin WinstonVLDL CALC15.2 mg/dLNoUniversity Hospitals St. John Medical CenterComment on above: Performed By: #### HFPF #### [facility] [address] [place] [address] Dr. Caitlin WinstonOperative Reporton [id number] ReportMR#: [id number] [facility] Pt. Name: Sharri Murillo Room #: [...] diameter, was closed by 1-0 PDS interrupted icpcog-hl-aoogt sutures. Without significant tension. The inferior fascial defect is 5 cm in diameter. Which was closed by 1-0 PDS interrupted nuvscz-rg-idadf sutures without tension. Subcutaneous wound was irrigated [...] Pagan M.D. Date Trans: 02/25/2021 01:27 P/ OMID_JN:[id number] Defiance Regional HospitalPO GLUCOSE LAB on 63-96-7640Mzvaesv [Mass/Vol]90 mg/qMSulmvm46-273Cgo [facility] CenterComment on above:Performed By: #### [id number] #### [facility] [address] [place] [address], USACT ABDOMEN AND PELVIS W ORAL CONTRASTon 65-77-6120FM ABDOMEN AND PELVIS W ORAL CONTRASTUnSelect Medical Specialty [facility] [place] [facility] Department of Radiology [address] [place] [id number] Patient Name: SHARRI MURILLO : 1955 Sex: F Age: Race: White Pt. Location: Patient Status: D Ordered Date: 01/05/2021 9:35:00 AM Completed Date: 01/14/2021 08:25 AM Requesting Provider: SIDNEY PAGAN Attending Provider: SIDNEY PAGAN Report Copy To: OLMAN SHOEMAKER Signs & Symptoms: K43.9 Ventral hernia without obstruction or gangrene I10 History: Saritha [phone] patient will need to come early to drink [employer] auth [id number] valid 01/07/2021-02/21/2021 per arlette [id number] *kw Comments: Exam: CT ABDOMEN AND PELVIS [...] cholecystectomy. Electronically signed: Jill Melvin. Transcribed by: [email or web address], User Resident: Electronically Signed by: JILL MELVIN @ 01/15/2021 08:38 AMNormalThe [facility] Vital Signs Date TimeVital SignValuePerforming TvmmvmlndHkplkvxu99-59-2425 10:09-0400Body .18 cmOlman Shoemaker MD Work Phone: [phone]10-28-2025 10:09-0400 Body mass index (BMI) [Ratio]49.6 kg/r8UuxbsuOlman Shoemakre MD Work Phone: [facility]10-28-2025 10:09-0400 Body waeays245.78 kgOlman Shoemaker MD Work Phone: [phone]10-28-2025 10:09-0400 Diastolic blood ggbjeqlc88 mm[Hg]Olman Shoemaker MD Work Phone: [phone] [place], [place] [address]310-28-2025 10:09-0400 Heart rate73 /minOlman Shoemaker MD Work Phone: [phone]10-28-2025 10:09-0400 Systolic blood gozbfcse669 mm[Hg]Olman Shoemaker MD Work Phone: [phone]07-16-2025 12:14-0400 Body unnqsr446.2 cmAleksandra Sandoval MD Work Phone: [facility]07-16-2025 12:14-0400Body mass index (BMI) [Ratio]49.18 kg/y2TmiwkttAleksandra Sandoval MD Work Phone: [facility]07-16-2025 12:14-0400Body .43 kgAleksandra Sandoval MD Work Phone: [facility] Gwitlx46-15-8454 12:14-0400Diastolic blood xfwvebty48 mm[Hg]Aleksandra Sandoval MD Work Phone: [facility] AlmaComment on above:Pt. states they had a difficult drive to this office.02-05-2025 12:14-0400Heart rate73 /min Aleksandra Sandoval MD Work Phone: [facility] Tvwakc59-84-3530 12:14-0400Systolic blood mm[Hg]Aleksandra Sandoval MD Work Phone: [facility] HospitalComment on above:Pt. states they had a difficult drive to this office.12-31-2024 13:52-0400Body tiktnl602.2 cmAleksandra Sandoval MD Work Phone: [facility]06-10-2025 13:52-0400Body mass index (BMI) [Ratio]49.18 kg/p4DwdstqyAleksandra Sandoval MD Work Phone: [facility]06-10-2025 13:52-0400Body twcsio016.43 kgAleksandra Sandoval MD Work Phone: [facility] Muthtb42-37-3807 10:57-0400Body lzvxys770.2 cmLoc PIKE Work Phone: [facility]04-30-2025 10:57-0400Body mass index (BMI) [Ratio]49.18 kg/u1MizyjxpbLoc PIKE Work Phone: [facility] Kuzjys94-75-0248 10:57-0400Body lfhpyy090.43 kgLco PIKE Work Phone: [facility] Csnfxi13-03-6001 10:57-0400Diastolic blood wselprcz34 mm[Hg]Loc PIKE Work Phone: [facility] Rkyoxe02-82-4369 10:57-0400Heart rate 69 /minLoc PIKE Work Phone: [facility]04-30-2025 10:57-0400Systolic blood tokzazgn810 mm[Hg]Loc PIKE Work Phone: [facility]01-24-2025 13:51-0500Body niqrrs428.18 cmBl[facility]ard [facility]01-24-2025 13:51-0500Body mass index (BMI) [Ratio]48.9 kg/k1ZkkheiupeBlanchard [facility]01-24-2025 13:51-0500Body viifwj969.52 kgBlanchard Valley [facility]01-24-2025 13:51-0500Diastolic blood bctoyygb94 mm[Hg][facility] 08-16-2024 13:51-0500Heart rate89 /minBlanchard Valley [facility] 08-16-2024 13:51-0500Systolic blood mm[Hg][facility]12-31-2024 11:08-0500Diastolic blood puhkhlkc12 mm[Hg][facility] [address] [place], [place] [address]-31-2024 11:08-0500Systolic blood wvpommib032 mm[Hg][facility] [address] [place], [place] [address]12-31-2024 11:00-0500Body .7 [degF][address]12-31-2024 11:00-0500Heart rate70 /minMetro [address] [place], [place] [address]212-31-2024 11:00-0500Respiratory rate20 /minMetro [address] [place], [place] [address]212-31-2024 11:00-7589RxZ8% (BldA) [Mass fraction]96 %[address]12-31-2024 10:45-0500Body avluml449.[address]12-31-2024 10:45-0500Body mass index (BMI) [Ratio]49.31 kg/t3Zoqkz[address]12-31-2024 10:45-0500Body txgaqy745.[address]11-07-2024 14:26-0500Body mass index (BMI) [Ratio]48.6 kg/m2 [facility]11-07-2024 14:26-0500Body kqyiud292.06 kg [facility]11-07-2024 14:26-0500Diastolic blood jbicwnwv03 mm[Hg][facility]11-07-2024 14:26-0500Heart rate99 /min [facility]11-07-2024 14:26-0500Systolic blood gnakpkbw561 mm[Hg][facility]11-07-2024 09:12-0500Body nubpje258.18 cmBlanchard Valley [facility]11-03-2024 13:00-0500Heart rate82 /Emiliano Iqbal MD Work Phone: [phone] [place], [place] 4996311-03-2024 13:00-0500 Respiratory rate18 /Emiliano Iqbal MD Work Phone: [phone] [place], [place] [address]11-03-2024 13:00-2097OvT0% (BldA) [Mass fraction]96 %Tabby Iqbal MD Work Phone: [phone]11-03-2024 11:15-0500Diastolic blood mm[Hg]Tabby Iqbal MD Work Phone: [phone])[address]11-03-2024 11:15-0500Systolic blood qqobwojk157 mm[Hg]Tabby Iqbal MD Work Phone: [phone]11-03-2024 07:45-0500Body sqhjfosrwfh10.9 [degF]Tabby Iqbal MD Work Phone: [phone]11-03-2024 05:00-0500Body mass index (BMI) [Ratio]49.24 kg/x9EgqtiTabby Iqbla MD Work Phone: [phone]11-03-2024 05:00-0500Body smcoou740.9 kgTabby Iqbal MD Work Phone: [phone] [place], [place] [address]10-29-2024 18:06-0400Body kbkhuo805.7 cmPnora Iqbal MD Work Phone: [phone]10-24-2024 10:44-0400Body .18 cmBl[facility]10-24-2024 10:35-0400Body mass index (BMI) [Ratio]51 kg/i8OprqlhkweBlanchard [facility]10-24-2024 10:35-0400Body .87 kgBlanchard Valley [facility]10-24-2024 10:35-0400Diastolic blood vwukzynu33 mm[Hg][facility] 05-16-2024 10:35-0400Heart rate77 /minBlanchard Valley [facility] 05-16-2024 10:35-0400Systolic blood mm[Hg][facility]06-25-2024 09:18-0400Blood Pressure LocationJENNIFER ADRIAN [facility]06-25-2024 09:18-0400Diastolic blood tnmeeazz72 mm[Hg]THUY ADRIAN [facility]06-25-2024 09:18-0400Heart rate68 /minJENNIFER ADRIAN [facility]06-25-2024 09:18-0400Respiratory rate16 /minJENNIFER ADRIAN [facility]06-25-2024 09:18-0400Systolic blood hoebicgf506 mm[Hg]THUY ADRIAN [facility]04-03-2024 09:30-0400Body .18 cmBl[facility]ard [facility]04-03-2024 09:30-0400Body mass index (BMI) [Ratio]51.2 kg/j9YrkaxhywnBlanchard [facility]04-03-2024 09:30-0400Body yntvgw886.32 kgBlanchard Valley [facility]04-03-2024 09:30-0400Diastolic blood aucleohc21 mm[Hg] [facility]04-03-2024 09:30-0400Heart rate95 /minBlanchard Valley [facility]04-03-2024 09:30-6276CzS6% (BldA) [Mass fraction]96 % [facility]04-03-2024 09:30-0400Systolic blood dklgurcx156 mm[Hg][facility]03-23-2024 12:49-0400Body lkrizb235.18 cm [facility]03-23-2024 12:49-0400Body mass index (BMI) [Ratio]52 kg/m0InbdcklavBlanchard [facility]03-23-2024 12:49-0400Body ravmukasdmh83.4 [degF][facility]03-23-2024 12:49-0400Body geaklm010.59 kgBlanchard Valley [facility]03-23-2024 12:49-0400Heart rate 64 /[facility]03-23-2024 12:49-0400Respiratory rate18 /[facility]03-23-2024 12:49-2323OuY8% (BldA) [Mass fraction]97 %[facility] Encounters Encounter DateEncounter TypeCare ProviderFacilityStart: 06-02-2025 End: 29-69-8818eyfdbukicaHfyxynnFouzia Mendoza MDFacility:[facility] Start: 05-20-2025 End: 89-66-2377tbvykdwfxwJpccqa E Braun MD Work Phone: -[facility]: 05-20-2025 End: 34-52-9861Sxfkvhy encounter procedureOlman Shoemaker MD-[facility] Work Phone: Start: 04-08-2025 End: 76-66-4357Wrpiswwo ReferredOUTREGRAYS HAR[facility] Work Phone: Start: 04-08-2025 End: 39-76-3090zkxkdhqmdeNjtoqs E Braun MD Work Phone: [facility] Work Phone: Start: 02-05-2025 End: 22-68-1757Lyihix outpatient visit 15 minutesAleksandra Sandoval MD Work Phone: [facility]ito-Urinary SurgeonsComment on above:Mineral metabolism disorder (Primary Dx)Start: 02-05-2025 End: 30-03-4262vxgjsoaenyNIQDZKB G RASHIDRutland Regional Medical CenterEsthela [facility] Ambulatory PPGStart: 12-31-2024 End: 55-97-1469Yrpgqaibl encounterAleksandra Sandoval MD Work Phone: [facility]-Urinary SurgeonsStart: 12-31-2024 End: 50-77-4666Emdttd outpatient visit 25 minutesAleksandra Sandoval MD Work Phone: [facility] Genito-Urinary SurgeonsComment on above:Mineral metabolism disorder (Primary Dx); Kidney stoneStart: 12-31-2024 End: 03-88-9157dycpfmlueiFZDVAFU G RASHIDTriHealth Ambulatory PPGStart: 12-06-2024 End: 84-88-7274sftukrnnukDNKPUMFVMemorial Hermann Southwest Hospitaltart: 11-20-2024 End: 21-30-3328Yxdlpkpcn encounterLoc PIKE Work Phone: [facility] Genito-Urinary SurgeonsStart: 15-92-1672kqdvoxldsnHNGCLOBMMemorial Hermann Southwest Hospitaltart: 11-20-2024 End: 05-28-9215Xvfvqt outpatient visit 25 minutesLoc PIKE Work Phone: [facility] Genito-Urinary SurgeonsComment on above:Kidney stones (Primary Dx); Pelvicaliectasis; Kidney stoneStart: 11-20-2024 End: 34-98-8906lwknbixitpZMKJAXCDAll[facility] Start: 11-11-2024 End: 81-10-4693tfzeymhptnHAITGJ [facility] HospitalStart: 09-11-2024 End: 26-43-3160Fubqmttij encounterEsme Chen MD Work Phone: [facility] Genito-Urinary SurgeonsStart: 09-11-2024 End: 86-70-0924Hapvljkhcs and management of inpatientESME CHENSumma Health [facility]itt[facility] HospitalStart: 08-22-2024 End: 18-45-8403bkdusghghpZVFEVS M RAGHAVANChildren's Hospital of [facility] HospitalStart: 08-16-2024 End: 46-05-5474rradihenzuIzvqbyjtgSelect [facility] Work Phone: Start: 08-16-2024 End: 45-54-0797Xshjnar encounter procedureJosh Physician GroupMain Campus Medical Center Work Phone: Start: 08-09-2024 End: 01-39-5760Xgulvmbym encounterEsme Chen MD Work Phone: [facility]ito-Urinary SurgeonsStart: 08-08-2024 End: 23-43-1362misnbxvrcdDBZEQD M RAGHAVANSumma Health [facility] HospitalStart: 08-08-2024 End: 40-06-8495Yqgmfzwxpv and management of inpatientESME Morfin AMBERSumma Health Wadsworth - Rittman [facility] Center HospitalStart: 07-23-2024 End: 92-97-3289mgopcbxxmrWEEUOX M CENTENNIAL PEAKS HOSPITALLARRYSumma Health [facility] HospitalStart: 07-23-2024 End: 66-85-8174Bxjxjfy encounter procedureMetro Pat Provider 1[facility] CenterComment on above:Hypokalemia (Primary Dx); Calculus of ureterovesical junction (UVJ)Start: 06-29-2024 End: 19-93-2455Zdpbydrod encounterEsme Chen MD Work Phone: [facility] Intra OperativeStart: 06-27-2024 End: 13-27-6272aurhgcdzotKUDLRR Navjot CENTENNIAL PEAKS HOSPITALLARRYDunlap Memorial Hospitaltart: 06-18-2024 End: 01-29-1488rsqxtodukhDRIBEO E BRAUNProMedica Moosup HospitalStart: 06-14-2024 End: 98-93-4825Jebjhrnhf to establishmentMetro Pat Phone Call Provider 2 [facility] On [facility] Orangetart: 06-14-2024 End: 96-96-9770Oldlojzrxy and management of inpatientMARCIA E BRAUNProMedica Peoria HospitalStart: 06-06-2024 End: 25-52-8238AzgiweCecilia MITCHELL Work Phone: [facility] Infectious DiseaseComment on above:Bacteremia (Primary Dx)Start: 05-30-2024 End: 15-58-4564Mdioyqm encounter procedureCar[facility] Work Phone: Start: 05-27-2024 End: 45-24-9582Hdluxyrqk encounterMicnavid Messina RMAProMedica Physicians Genito- Urinary SurgeonsStart: 98-65-8719Ocm-patient / Non-visitCar[facility] Work Phone: Start: 05-23-2024 End: 48-15-1028Tgknjzpso encounterEsme Chen MD Work Phone: [facility] Genito-Urinary SurgeonsStart: 02-00-9313Mvmwgmp encounter [facility]art: 76-97-7796Dje-patient / Non-visitCar[facility] Work Phone: Start: 05-21-2024 End: 28-21-9033Jubbougpsz and management of inpatientREBECCA S [facility] HospitalStart: 16-21-7939bptseojgxsTQZCDCSamaritan [facility] Ambulatory PPGStart: 05-21-2024 End: 86-13-8024Xghkdaspbn and management of inpatientCHRISTOPHER EWKeenan Private Hospital HospitalStart: 05-21-2024 End: 74-24-1935Qslcwuhrrs and management of inpatientEmile Eli MENDOZA Work Phone: [facility] - GEN 9 ICUComment on above: Septic shock ([facility]) (Primary Dx); E coli bacteremia; NephrolithiasisStart: 26-25-9437Jsb-patient / Non-visitCar[facility] Work Phone: Start: 05-16-2024 End: 80-78-3415ngrwlxsqbdVynafakvsSouthview Medical Center Work Phone: Start: 05-16-2024 End: 62-52-0693Hgmpzns encounter procedureCaromont [facility] Group[facility] Work Phone: Start: 01-16-2024 End: 23-66-5258kygonacgwfYDLRZPTJ E PERRYFacility:EU BellevueStart: 01-16-2024 End: 56-94-5263Sbmtbmd encounter procedureJENNIFER E ADRIAN [facility] Sacha start: 10-25-2023 End: 66-87-0151qjaqhvicvsSebgssozdSelect Medical Specialty [facility] Work Phone: Start: 10-25-2023 End: 94-91-1506Tgwjiop encounter procedureCar[facility] Work Phone: Start: 10-14-2023 End: 52-34-3308wsoawuqydkTmxqzeeoiSelect Medical Specialty [facility] Work Phone: Start: 10-14-2023 End: 74-18-8881Gymbyux encounter procedureCar[facility]ont [facility] Madhu Work Phone: Start: 03-14-2023 End: 14-70-7595indfwurmgyAsdmtj Braun Other noApplitools FirmPlay Other Start: 68-59-8975Rzsgtryrb encounterMarcia SaharaAkron Children's Hospitaltart: 03-09-2023 End: 53-84-6038jteglefwpfHlstlc Sahara Other nofulton [facility] FirmPlay Other Start: 96-46-1635Cxbutpjrh encounterMarcia SaharaAkron Children's Hospitaltart: 02-16-2023 End: 55-08-1801nywzpslxnjDizbms Sahara Other noApplitools [employer] Other Start: 71-04-8289Roqlcvgcj encounterMarcia SaharaAkron Children's Hospitaltart: 02-09-2023 End: 36-29-6567hhvbrccsumDmohjj Sahara Other Nort [employer]Play Other Start: 81-46-7092Wssxaadrg encounterOlman Shen [facility] ClinicStart: 08-10-2022 End: 67-03-4527Ddd Drop offJEELVIN CAMPBELL [facility] Start: 08-08-2022 End: 35-43-9217tcjnflcwukIV DOCTOR MISCFacility:J0Ivxqa: 03-10-2022 End: 48-61-3669ajpwdtzxkyHZ OLMAN SHOEMAKERFacility:U4Ddlfw: 02-22-2021 End: 09-57-2979dwpefbbirvLNSJZDT TANGFacility:[facility]ANCHOtart: 01-14-2021 End: 47-46-4801ezcvlkyqzuGJVRZAU TANGFacility:[facility] Procedures DateProcedureProcedure DetailPerforming ClinicianStart: 48-42-4225Rfuute-up visitFollow-upMICHELLE I MURPHYStart: 17-04-9805Irmoe metabolic panel calcium totalDiana L Perea [employer]OTAT[employer] BUCKER-PELLETIZER TENDER Work Phone: Start: 56-61-9957Dlppxou bacterial quanttative colony count urineEsme Chen MD Work Phone: Start: 45-21-6315Mcfhv dip stick/tablet rgnt auto w/o microscopyEsme Chen MD Work Phone: Start: 20-70-6762Lmbap depression screening assessment Esme Chen MD Work Phone: Start: 85-66-4751Jpssf metabolic panel calcium total Lesvia Andrews MD Work Phone: Start: 47-24-4834Eivbqvfmd serum plasma/whole blood Ralph Wei Avasilcai [employer]OTAT[employer] BUCKER-PELLETIZER TENDER Work Phone: Start: 48-46-1212Yqflf metabolic panel calcium total Lesvia Andrews MD Work Phone: Start: 47-34-9334Rnvjcehmv serum plasma/whole blood Thuy J Elizabet POTAT[employer] BUCKER-PELLETIZER TENDER Work Phone: Start: 05-24-2024 End: 17-00-2033Kivklstpoucqg metabolic panelRyan Beintez MD Work Phone: Start: 87-60-2137Gvoicwrfj serum plasma/whole blood Ryan Benitez MD Work Phone: Start: 84-34-2962Qtkxorwdi serum plasma/whole blood Melissa Arana P[employer]AT[employer] BUCKER-PELLETIZER TENDER Work Phone: Start: 29-67-0148Kmsaqbv bacterial blood aerobic w/id isolatesBerpritesh Boyd POT[employer] BUCKER-PELLETIZER TENDER Work Phone: Start: 17-70-4658Tsyelyiebtujz metabolic panelCristian Petrisor Avasilcai [employer]OTAT[employer] BUCKER-PELLETIZER TENDER Work Phone: Start: 05-22-2024 End: 64-11-6610Vmdgoqipanpif metabolic panelCristian Petrisor Avasilcai [employer]OTAT[employer] BUCKER-PELLETIZER TENDER Work Phone: Start: 70-37-1713Kdynnypbf serum plasma/whole blood Ruel Leblanc POTAT[employer] BUCKER-PELLETIZER TENDER Work Phone: Start: 18-51-6623Pmvie dip stick/tablet rgnt auto w/o microscopyMojohnny Thompson MD Work Phone: Start: 41-61-3024Zkse nephrostomy cath prq new access rs&iRebecca S Lencho PIKE Work Phone: Start: 80-70-1273Axqlc of lactateCristian Petrisor Avasilcai [employer] BUCKER-PELLETIZER TENDER Work Phone: Start: 05-21-2024 End: 23-30-9298Fkkbdab bacterial quanttative colony count urineCristian Petrisor Avasilcai [employer]OT[employer] BUCKER-PELLETIZER TENDER Work Phone: Start: 91-05-5194Mnvsvtldol exam chest single view Dana Reynoso POTAT[employer] BUCKER-PELLETIZER TENDER Work Phone: Start: 05-21-2024 End: 32-59-1588Orbo cathj/cannulj mntr/transfusion spx prqEvan Prielipp [facility] Work Phone: Start: 40-50-9257Kqx routine ecg w/least 12 lds trcg only w/o i&rCristian Petrisor Avasilcnatividad [facility]ITALRettyC[facility] Work Phone: Start: 51-90-9751PGWA ARTERIAL LINE SETUPEvscot Estrellaelirenu [facility]ITALRettyC[facility] Work Phone: Start: 46-55-9990Ufgvefhk Identification OnlyStart: 05-21-2024 End: 66-41-5224Lpxwlmuhjadue metabolic panelCristian Eriberto Arriagaasilcnatividad [facility]ITALRettyC[facility] Work Phone: Start: 53-12-1344Qqjcj depression screening assessment Esme Chen MD Work Phone: Start: 84-03-3837BKGNEH REPAIR OF HERNIAJIANLIN PAGAN Start: 53-87-6925JOKWTKMB VENTRL DENTON REDUCEJIANLIN TANGStart: 02-03-2020 Extracorporeal shockwave lithotripsy of calculus of kidneyDEVINNIFER ADRIAN Start: 41-63-5223Xiadxmn of arthroplasty of left knee THUY CAMPBELL Start: 89-91-9062Mhfxb replacement of right knee joint THUY CAMPBELL Comment on above:UTMCStart: 78-98-9207Vpx-surgery evaluationMarcia Shoemaker Other Start: 23-68-4638Vrsvgnhmr mammographyMarcia Shoemaker Other CholecystectomyJENNIFER ADRIAN HysterectomyJENNIFER ADRIAN Removal of sutureMarcia Shoemaker Other Repair of right inguinal herniaJENNIFER ADRIAN Comment on above:unknown year Plan of Treatment DateCare ActivityDetailAuthorStart: 02-16-2026 End: 78-00-9517Gdpeuls encounter sfrsjiokh64/27/2026 1:00 PM EDT Office Visit [facility] [address] [place] [address] A [facility] [place] [address] Aleksandra Sandoval MD [facility] [place] [phone] [facility] Genito-Urinary SurgeonsStart: 74-93-2745Oeirx BMI ScreeningAdult BMI Screening [facility] SystemStart: 41-48-5486Egcpnhq ScreeningTobacco Screening [facility] SystemStart: 02-05-2026 End: 40-69-4052OU Abdomen APX-ray abdomen ap 1 view Imaging Routine Mineral metabolism disorder Expected: 02/05/2026 (Approximate), Expires: 02/05/2027 [facility] Work Phone: Comment on above:Expected: 02/05/2026 (Approximate), Expires: 02/05/2027Start: 89-77-8309Benis BMI ScreeningAdult BMI Screening [facility] SystemStart: 89-46-5501Gdzmhfx ScreeningTobacco Screening [facility] SystemStart: 07-22-2863Qvhio BMI ScreeningAdult BMI Screening [facility] SystemStart: 89-60-1830Uagmyek ScreeningTobacco Screening [facility] SystemStart: 13-08-0958Zfvbf BMI ScreeningAdult BMI Screening [facility] SystemStart: 86-31-8156Qhiaajr ScreeningTobacco Screening [facility] SystemStart: 23-61-6698Iburv BMI ScreeningAdult BMI Screening [facility] SystemStart: 35-07-6924Whtko BMI ScreeningAdult BMI Screening [facility] SystemStart: 85-03-3844Sbbuxgr ScreeningTobacco Screening [facility] SystemStart: 66-46-8044Lqzhx BMI ScreeningAdult BMI Screening [facility]tart: 65-94-6742Ysxjccd ScreeningTobacco Screening [facility] SystemStart: 24-68-0689Slamzjqjzb ScreeningDepression Screening [facility]tart: 65-05-9046Jxpyg BMI ScreeningAdult BMI Screening [facility]tart: 56-42-2262Ldwqe BMI ScreeningAdult BMI Screening [facility] SystemStart: 82-75-6500Itevwfbzef ScreeningDepression Screening [facility] SystemStart: 88-17-0156Fjtwzyx ScreeningTobacco Screening [facility]tart: 06-18-3865Yultxitwf vaccinationInfluenza Vaccine [facility] Hospitaltart: 11-20-2024 End: 27-22-0131BQ Kidney and Ureter and Urinary bladder 3D post processing WO and W contrast IVCT urogram Imaging Routine Kidney stones Pelvicaliectasis Expected: 11/20/2024, Expires: 11/20/2025[facility] Work Phone: Comment on above:Expected: 11/20/2024, Expires: 11/20/2025Start: 11-10-2024 End: 25-48-1893OX RetroperitoneumUltrasound retroperitoneal complete Imaging Routine Calculus of ureterovesical junction (UVJ) Expected: 11/10/2024 (Approximate), Expires: 12/09/2024[facility] Work Phone: Comment on above:Expected: 11/10/2024 (Approximate), Expires: 12/09/2024Start: 09-11-2024 End: 31-14-6886CWAYAAJJJJ REMOVAL STENTCYSTOSCOPY REMOVAL STENT Calculus of ureterovesical junction (UVJ) 09/11/2024 7:34 AM Face++[facility] CenterMy [facility] Start: 08-09-2024 End: 88-29-3788ZQ Abdomen and Pelvis WO contrastCT abdomen and pelvis without contrast Imaging Routine Flank pain Expected: 08/09/2024, Expires: 11/07/2024 [facility] Work Phone: Comment on above:Expected: 08/09/2024, Expires: 11/07/2024Start: 07-31-2024 End: 26-55-0097Efnhfswvr to same day surgery pwejhj2107/31/2024 3:30 PM EST - 07/31/2024 5:15 PM EST Surgery [facility] [address] [place] [phone] Esme Chen MD [address] [place] [address] LASER HOLMIUM URETEROSCOPY RENAL STONES < OR=1CM [75844 (CPT )][facility] CenterComment on above:LASER HOLMIUM URETEROSCOPY RENAL STONES < OR=1CM [58842 (CPT )]Start: 07-31-2024 End: 68-01-7785Bpzer w/insert ureteral stentCYSTOSCOPY EXCHANGE STENT URETER Calculus of ureterovesical junction (UVJ) 07/31/2024 3:30 PM ESTTOLED SURGERY Start: 07-31-2024 End: 66-48-7085Hbljh w/ureteroscopy w/lithotripsyLASER HOLMIUM URETEROSCOPY RENAL STONES < OR=1CM Calculus of ureterovesical junction (UVJ) 07/31/2024 3:30 PM [facility] SURGERYStart: 34-97-1006Vfkcnhspcl hospital visit by physician 07/31/2024 3:30 PM EST Hospital Encounter [facility] - Surgery [address] [place] [phone] Esme Chen MD [address] [place] [address] [facility] SurgeryStart: 06-28-2024 End: 12-49-1540Xbriqmrlp to same day surgery dqzshp5306/28/2024 1:00 PM EST - 06/28/2024 3:00 PM EST Surgery [facility] [address] [place] [phone] Esme Chen MD [address] [place] [phone] LASER HOLMIUM URETEROSCOPY RENAL STONES < OR=1CM [85613 (CPT )][facility] CenterComment on above:LASER HOLMIUM URETEROSCOPY RENAL STONES < OR=1CM [87342 (CPT )]Start: 06-28-2024 End: 49-13-4305Kmpuz w/insert ureteral stentCYSTOSCOPY INSERTION STENT URETER Septic shock (CMS-HCC) Calculus of ureterovesical junction (UVJ) 06/28/2024 1:00 PM [facility] SURGERYStart: 06-28-2024 End: 10-13-1588Prjjf w/ureteroscopy w/lithotripsyLASER HOLMIUM URETEROSCOPY RENAL STONES < OR=1CM Septic shock (CMS-HCC) Calculus of ureterovesical junction (UVJ) 06/28/2024 1:00 PM [facility] SURGERYStart: 25-35-8483Dszbykrizw hospital visit by vxoabtlsm05/06/2024 1:00 PM EST Hospital Encounter [facility] [address] [place] [phone] Esme Chen MD [address] [place] [phone] [facility] SurgeryStart: 06-27-2024 Evaluation and management of hpdekarsi83/05/2024 12:01 AM EST Hospital Encounter Esme Chen MD [facility] [place] [phone] [facility] SystemStart: 06-14-2024 End: 88-54-8998Nnedwrsmm to stofqmmvkztvo17/22/2024 11:30 AM EST Support Visit [facility] On [address] [phone] [facility] Start: 06-06-2024 End: 04-72-2386SZFK Line RemovalPICC Line Removal Procedures Routine Bacteremia Expected: 06/06/2024 (Approximate), Expires: 07/06/2024[facility] Work Phone: Comment on above:Expected: 06/06/2024 (Approximate), Expires: 07/06/2024Start: 35-32-7650Hwcuvd ID + SusceptAerobe ID + Suscept [facility]: 30-02-7350Ffpgsxlp Identification Only Anaerobe Identification OnlyBrecksville VA / Crille Hospitaltart: 03-24-2024 COVID-19 Vaccine ( season)COVID-19 Vaccine ( season) [facility] Screenie SystemStart: 87-34-0203Uharbnzln vaccinationInfluenza Vaccine [facility] SystemStart: 45-02-8001Jjfb Risk ScreeningFall Risk Screening [facility] [employer] [employer]art: 28-51-3704KYgJ,Tdap and Td Vaccines (1 - Tdap) DTaP,Tdap and Td Vaccines (1 - Tdap)[facility] [employer]: 12-11-1973 Adult BMI Follow Up PlanAdult BMI Follow Up PlanCleveland Clinic Hillcrest HospitalBacteria identified in Blood by Aerobe cultureCleveland Clinic Hillcrest HospitalBaknox county hospital metabolic 2000 panel - Serum or PlasmaBasic Metabolic Panel Lab Routine Lab max of 3 days, Daily, for lab use only until discontinued starting 05/25/2024, 2 completed [facility] Work Phone: Comment on above:Lab max of 3 days, Daily, for lab use only until discontinued starting 05/25/2024, 2 completedCBC W Auto Differential panel - BloodCBC auto differential Lab Routine Lab max of 3 days, Daily, for lab use only until discontinued starting 05/25/2024, 2 completedWayne Hospital SystemComment on above:Lab max of 3 days, Daily, for lab use only until discontinued starting 05/25/2024, 2 completedComprehenve metabolic 2000 panel - Serum or PlasmaBlanchard Valley Health System Bluffton HospitalComprehensive metabolic 2000 panel - Serum or PlasmaFirelands Regional Medical Center End: 45-84-6319Nohnovjcva includes GFR, serumCreatinine includes GFR, serum Lab STAT STAT for 1 Occurrences starting 05/21/2024 until 05/21/2024[facility] TroyComment on above:STAT for 1 Occurrences starting 05/21/2024 until 05/21/2024 End: 49-16-5153Rknmsiwuuw includes GFR, serumCreatinine includes GFR, serum Lab Routine E coli bacteremia weekly for 2 Occurrences starting 05/25/2024 until 05/25/2025[facility] SystemComment on above:weekly for 2 Occurrences starting 05/25/2024 until 05/25/2025 End: 26-81-8945Ngthpix magnesiumIonized magnesium Lab Routine Once for 1 Occurrences starting 05/26/2024 until 05/26/2024[facility] TroyComment on above:Once for 1 Occurrences starting 05/26/2024 until 05/26/2024 End: 79-47-0842Ofarnvr [Moles/volume] in Serum or PlasmaLactate Lab Routine Once for 1 Occurrences starting 05/21/2024 until 05/21/2024[facility] Comment on above:Once for 1 Occurrences starting 05/21/2024 until 05/21/2024 End: 13-10-4397Errpyrl [Moles/volume] in Serum or PlasmaLactate Lab Routine Once for 1 Occurrences starting 05/22/2024 until 05/22/2024[facility] Work Phone: Comment on above:Once for 1 Occurrences starting 05/22/2024 until 05/22/2024 End: 05-54-7505Brcyswsnrf [#/volume] in BloodWBC Lab Routine E coli bacteremia weekly for 2 Occurrences starting 05/25/2024 until 05/25/2025[facility] Work Phone: Comment on above:weekly for 2 Occurrences starting 05/25/2024 until 05/25/2025 End: 97-48-3578Jsulpodoj 24 HourLitholink 24 Hour Lab Routine Kidney stone 1 Occurrences starting 12/31/2024 until 12/31/2025[facility] Work Phone: Comment on above:1 Occurrences starting 12/31/2024 until 12/31/2025 End: 72-44-1220Tkwnk panelLiver panel Lab Routine E coli bacteremia weekly for 2 Occurrences starting 05/25/2024 until 05/25/2025[facility] Screenie SystemComment on above:weekly for 2 Occurrences starting 05/25/2024 until 05/25/2025Magnesium [Mass/volume] in Serum or PlasmaMagnesium Lab Routine Lab max of 3 days, Daily, for lab use only until discontinued starting 05/25/2024, 2 completedProCitizens Baptist Health SystemComment on above:Lab max of 3 days, Daily, for lab use only until discontinued starting 05/25/2024, 2 completedMG Breast - bilateral Screening [facility]uffton HospitalOxygen Therapy - Maintain SpO2: 90%; *SERVICE PARTS COORDINATOR Guidelines for O2: Yes; Document: \[email or web address]\epi c\EPIC_Reference\Orders\Respiratory Care Guidelines\CPG Oxygen 2022.pdfOxygen Therapy - Maintain SpO2: 90%; *SERVICE PARTS COORDINATOR Guidelines for O2: Yes; Document: \[email or web address]\epic\EPIC_Reference\Orders\Respiratory Care Guidelines\CPG Oxygen 2022.pdf Respiratory Care Routine AsNeeded until discontinued starting 05/21/2024roMedJobzella Work Phone: Comment on above:As Needed until discontinued starting 05/21/2024 End: 27-52-1682Igywyhhlu [#/volume] in BloodPlatelet count Lab Routine E coli bacteremia weekly for 2 Occurrences starting 05/25/2024 until 05/25/2025 [facility] Screenie SystemComment on above:weekly for 2 Occurrences starting 05/25/2024 until 05/25/2025 End: 94-93-8771Prrucugd I, High Sensitivity 3 HourTroponin I, High Sensitivity 3 Hour Lab Routine Once for 1 Occurrences starting 05/21/2024 until 05/21/2024 [facility] Screenie SystemComment on above:Once for 1 Occurrences starting 05/21/2024 until 05/21/2024XR Lumbar spine 2 or 3 [facility] Immunizations Immunization DateImmunizationNotesCare GtxvxzzbHfmzsrun06-83-8616njibog vaccine recombinantJENNIFER ADRIAN [facility]07-18-2023zoster vaccine recombinantJENNIFER ADRIAN [facility]11-09-2021SARS-CoV-2 (COVID-19) mRNA BNT-162b2 vaxJENNIFER ADRIAN [facility] HospitalComment on above:Result Comment: 2022-08-10: [id number]-GtU-2 (COVID-19) mRNA BNT-162b2 vaxJENNIFER ADRIAN [facility]02-12-2021SARS-CoV-2 (COVID-19) mRNA BNT-162b2 vaxJENNIFER ADRIAN [facility] Payers DatePayer CategoryPayerPolicy [id number]-pna [id number] Unknown2024Medicare [id number] [id number]-[id number] [id number] 2..840.1.991517.3.57[id number] 2.840.1.197372.3.57[id number] 2.840.1.590193.3.57[id number] 2.840.1.930958.3.579.[id number] 2.840.1.406001.3.57[id number] 2.0.1.531411.3.57[id number] 2.0.1.983884.3.57[id number] 2.0.1.364781.3.57[id number] 2.0.1.195072.3.57[id number] 2.0.1.000615.3.57[id number] 2.0.1.028956.3.57[id number] 2..1.053738.3.57[id number] 2.0.1.683777.3.57[id number] 2.840.1.290239.3.57[id number] 2.840.1.608170.3.57[id number] 2.840.1.329394.3.57[id number] 2.16.840.1.414991.3.57[id number] 2.16.840.1.222007.3.579.[id number] 2.16.840.1.584529.3.57[id number] 2.16.840.1.732682.3.57[id number] 2..840.1.097345.3.57[id number] 2..840.1.748870.3.57[id number] 2.840.1.846117.3.57[id number] 2..840.1.57566[id number] zc174656-20nn-81b4-t97x-[id number] 2.840.1.447359.3.579.2.593 [id number] 2.840.1.531941.3.579.2.531 Social History DateTypeDetailFacilityStart: 08-10-2022 End: 14-25-9127Rpjroxf smoking statusEx-smoker (finding)[facility] Centertart: 09-03-2020 End: 11-66-0689Nfn Assigned At [facility] Centertart: 81-12-3527Hpd Assigned At [facility] HospitalTobacco smoking statusNeverExec[facility] End: 38-57-7984Ihyffxp of tobacco useCurrent smokerCleveland Clinic Hillcrest Hospital End: 97-57-2769Jktdnjv of tobacco useCigarette SmokerCleveland Clinic Hillcrest Hospital History of tobacco usePassive smokerFormerly [facility] Hospitaltart: 06-14-2024 End: 66-66-1226Mfgqfra use and exposureSmokeless tobacco non-userFormerly [facility] Hospitaltart: 07-23-2024 End: 91-01-9429Oxgygaiaf beverage intakeLifetime non-drinker (finding)[facility] Hospitaltart: 09-03-2020 End: 23-45-8890Fmyzgzi of Social functionCleveland Clinic Hillcrest HospitalHas the PureBrands, gas, oil, or water company threatened to shut off services in your home in past [facility] CenterHow often to you have a drink containing alcohol?NeverFormerly [facility] Hospitaltart: 67-83-8943Lwqufxa Comment 0.5ppd smoked on & off for about 20 yearsFormerly [facility] Hospitaltart: 40-48-9130Ebv assigned at birthNot on fileFormerly [facility] Hospitaltart: 05-08-2018 End: 85-94-0435AjdRlsvtu (finding)[facility]tart: 05-21-2024 Tobacco smoking status NHISNever smoked tobaccoFormerly [facility] Hospitaltart: 12-57-0509Bojkffa Liytqtg9618-5019 smoked on & off for about 20 yearsCleveland Clinic Hillcrest Hospital Medical Equipment Procedure CodeEquipment CodeEquipment Original TextEquipment IdentifierDates Stent Uret 6fr 26cm 2 Pgtl Crv Rdpq [facility] [id number]: 45-65-1087Beimajl on above:Description: NO STRINGSStent Uret 6fr 26cm 2 Pgtl Crv Rdpq [facility] [id number]: 21-75-9670Gbpjx Uret 6fr 26cm 2 Pgtl Crv Rdpq Pstnr [facility] [id number]: 09-11-2024 Goals DatePatient GoalDesired Activity/StatePersonal health goalComment on above: Evaluation of progress towards goal: safe transition home with home care and support. Functional Status Uppg[id number] StatusN/AExecutive [facility] Mental Status DateAssessmentResultRunnells Specialized [facility] Clinical Notes 01-16-2024 to 04-08-2025 Note Date & [id number] [facility]iology [facility] [place] [id number] Ultrasound Report Signed Patient: Sharri Murillo MR#: [id number] 80 : 1955 Acct:[id number] Age/Sex: 69 / F ADM Date: 5 Loc: RH Room: Type: REG REF Attending Dr: Bharathi Community Ordering Provider: STEFAN,OUTREACH Date of Service: 04/08/25 US/US community outreach aorta: SCREENING Copies to: COMMUNITY,OUTREACH ~ Aorta screening ultrasound HISTORY: Screening exam Normal caliber abdominal aorta. US/US community outreach aorta IMPRESSION: No abdominal aortic aneurysm. Impression dictated by: Milton Yap M.D. 04/08/2025 3:29 PM Dictation Location: [place] [address] Tech: Lamar Renowyatt Transcribed By: [facility] 04/08/25 1529 Dictated By: Milton Yap DO 04/08/25 1529 Signed By: 04/08/25 [facility]9 [facility]09-16-2025 Radiology Diagnostic study note [facility] Main [place] [id number] Ultrasound Report Signed Patient: Sharri Murillo MR#: [id number] 80 : 1955 Acct:[id number] Age/Sex: 69 / F ADM Date: 5 [...] Wave forms by plethysmography are normal. US/US [facility] KATY IMPRESSION: NO HEMODYNAMICALLY SIGNIFICANT PERIPHERAL VASCULAR OCCLUSIVE DISEASE AT REST IN EITHER LOWER EXTREMITY. Impression dictated by: Jovany Heart MD,FACS,FSVS 04/08/2025 2:09 PM Dictation Location: [facility]-DOC-04 Tech: Shira Vilchis Transcribed By: PWS 04/08/251408 Dictated By: Jovany Heart MD 04/08/251407 Signed By: 04/08/251408 [facility] Work Phone: [phone]) 498-192809-16-2025 Radiology Diagnostic study [facility] [place] [place] [address] Ultrasound Report Signed Patient: Sharri Murillo MR#: [id number] 80 : 1955 Acct:[id number] Age/Sex: 69 / F ADM Date: 5 Loc: Room: Type: [facility] Attending Dr: Bharathi [facility] Ordering Provider: BHARATHI AVILES Date of Service: 04/08/25 US/US [facility] carotid: SCREENING [facility] ~ CAROTID DUPLEX INDICATION: [facility] carotid screening program. PROCEDURE: Color-flow [...] Heart MD,FACS,FSVS 04/08/2025 2:08 PM Dictation Location: [place] [address] Tech: Lamar Kathleen Transcribed By: KAMILAH 04/08/251407 Dictated By: Jovany Heart MD 04/08/251407 Signed By: 04/08/25 140 [facility] Work Phone: [phone]) 534-605607-16-2025 History of Present illness Narrative* Aleksandra Sandoval MD - 02/05/2025 12:00 PM EDT Images from the original note were not included. [address] [place] [address] [address] [facility] [address] Patient: Sharri Murillo Date of : 1955 Encounter Date: 02/05/2025 History of Present Illness: The patient is a 69 y.o. female, an established patient, and is here for Chief Complaint Patient presents with Follow-up . Mineral metabolism workup. Twenty-four urine litho link. Reviewed. Strategies discussed with the patient. Lgfa-pdv-yykxnmx supplement also discussed. Subsequent imaging discussed as [...] past Migraines 07/23/2024 6x year Septic shock ([facility]) 05/21/2024 Visual impairment glasses Past Surgical History: Procedure Laterality Date CYSTOSCOPY EXCHANGE STENT URETER Left 08/08/2024 Performed by Esme Chen MD at [facility] CYSTOSCOPY INSERTION STENT URETER Left 06/28/2024 Performed by Esme Chen MD at [facility] CYSTOSCOPY REMOVAL STENT Left 09/11/2024 Performed by Esme Chen MD at [facility] CYSTOSCOPY RETROGRADE PYELOGRAM Left 08/08/2024 Performed by Esme Chen MD at [facility] CYSTOSCOPY RETROGRADE PYELOGRAM Left 06/28/2024 Performed by Esme Chen MD at [facility] HYSTERECTOMY age 42's INGUINAL HERNIA REPAIR x2 pt unsure of date JOINT REPLACEMENT Bilateral pt unsure of when KIDNEY STONE SURGERY 2017 I had kidney stones blasted LASER HOLMIUM URETEROSCOPY RENAL STONES < OR=1CM; STONE BASKET EXTRACTION Left 06/28/2024 Performed by Esme Chen MD at [facility] LASER HOLMIUM URETEROSCOPY WITH VACUUM ASPIRATION/STONE BASKETING Left 08/08/2024 Performed by Esme Chen MD at [facility] REMOVAL TUBE NEPHROSTOMY Left 06/28/2024 Performed by Esme Chen MD at [facility] TONSILLECTOMY as a child UMBILICAL HERNIA REPAIR pt unsure of when URETERAL DILATION Left 06/28/2024 Performed by Esme Chen MD at [facility] Family History Problem Relation Age of [...] damage causing pain and loss of function. epqeuedg-xckk-BV-calcium &mins (THERAGRAN-M) 9 mg iron-400 mcg tablet [...] you for your understanding. documented in this encounterC[facility]06-10-2025 Miscellaneous Notes* Telephone Encounter - Kaylen Kendall - 12/31/2024 2:36 PM EDT I faxed litho link order successfully to [phone]. documented in this encounterCleveland Clinic [facility]06-10-2025 Telephone encounter Note* Telephone Encounter - Kaylen Kendall - 12/31/2024 2:36 PM EDT I faxed litho link order successfully to [phone]. [facility]06-10-2025 History of Present illness Narrative* Aleksandra Sandoval MD - 12/31/2024 1:45 PM EDT Images from the original note were not included. [address] [place] [address] A [facility] B [facility] [address] Patient: Sharri Murillo Date of : 1955 [...] past Migraines 07/23/2024 6x year Septic shock ([facility]) 05/21/2024 Visual impairment glasses Past Surgical History: Procedure Laterality Date CYSTOSCOPY EXCHANGE STENT URETER Left 08/08/2024 Performed by Esme Chen MD at [facility] CYSTOSCOPY INSERTION STENT URETER Left 06/28/2024 Performed by Esme Chen MD at [facility] CYSTOSCOPY REMOVAL STENT Left 09/11/2024 Performed by Esme Chen MD at [facility] CYSTOSCOPY RETROGRADE PYELOGRAM Left 08/08/2024 Performed by Esme Chen MD at [facility] CYSTOSCOPY RETROGRADE PYELOGRAM Left 06/28/2024 Performed by Esme Chen MD at [facility] HYSTERECTOMY age 42's INGUINAL HERNIA REPAIR x2 pt unsure of date JOINT REPLACEMENT Bilateral pt unsure of when KIDNEY STONE SURGERY 2017 I had kidney stones blasted LASER HOLMIUM URETEROSCOPY RENAL STONES < OR=1CM; STONE BASKET EXTRACTION Left 06/28/2024 Performed by Esme Chen MD at [facility] LASER HOLMIUM URETEROSCOPY WITH VACUUM ASPIRATION/STONE BASKETING Left 08/08/2024 Performed by Esme Chen MD at [facility] REMOVAL TUBE NEPHROSTOMY Left 06/28/2024 Performed by Esme Chen MD at [facility] TONSILLECTOMY as a child UMBILICAL HERNIA REPAIR pt unsure of when URETERAL DILATION Left 06/28/2024 Performed by Esme Chen MD at [facility] Family History Problem Relation Age of [...] damage causing pain and loss of function. blsuoxxq-opuq-GI-calcium &mins (THERAGRAN-M) 9 mg iron-400 mcg tablet [...] you for your understanding. documented in this encounterCleveland Clinic [facility]04-30-2025 Evaluation + Plan note* Assessment & Plan Note - SHAHZAD Coleman - 11/20/2024 1:06 PM EDT Associated Problem(s): Kidney stone Dr. Chen performed her procedures but she would like to see a doctor that goes to [place]. [facility]04-30-2025 Miscellaneous Notes* Assessment & Plan Note - SHAHZAD Coleman - 11/20/2024 1:06 PM EDTAssociated Problem(s): Kidney stone Dr. Chen performed her procedures but she would like to see a doctor that goes to [place]. documented in this encounterCleveland Clinic [facility]04-30-2025 Miscellaneous Notes* Telephone Encounter - Kaylen Kendall - 11/20/2024 11:31 AM EDT Offday appointment (at least 15 min) with Dr. Sandoval or Dr. Silverman for the results CT Urogram. Call to schedule after ct scheduled documented in this encounterCleveland Clinic [facility]04-30-2025 Telephone encounter Note* Telephone Encounter - Kaylen Kendall - 11/20/2024 11:31 AM EDT Offday appointment (at least 15 min) with Dr. Sandoval or Dr. Silverman for the results CT Urogram. Call to schedule after ct scheduled [facility]04-30-2025 History of Present illness Narrative* SHAHZAD Coleman - 11/20/2024 11:00 AM EDT Images from the original note were not included. [address] [place] [address] A [facility] B [facility] [address] Patient: Sharri Murillo Date of : 1955 [...] having any pain. She was following with [facility] and was last seen in December 2023 Summary of old records: Notes from Dr. Chen 05/21/24: The patient is a 68 y.o. female who presented to [facility] with history of recent UTI on [...] ureter or renal pelvis. [facility] as she has required Vasopressor for [...] past Migraines 07/23/2024 6x year Septic shock ([facility]) 05/21/2024 Visual impairment glasses Past Surgical History: Procedure Laterality Date CYSTOSCOPY EXCHANGE STENT URETER Left 08/08/2024 Performed by Esme Chen MD at [facility] CYSTOSCOPY INSERTION STENT URETER Left 06/28/2024 Performed by Esme Chen MD at [facility] CYSTOSCOPY REMOVAL STENT Left 09/11/2024 Performed by Esme Chen MD at [facility] CYSTOSCOPY RETROGRADE PYELOGRAM Left 08/08/2024 Performed by Esme Chen MD at [facility] CYSTOSCOPY RETROGRADE PYELOGRAM Left 06/28/2024 Performed by Esme Chen MD at [facility] HYSTERECTOMY age 42's INGUINAL HERNIA REPAIR x2 pt unsure of date JOINT REPLACEMENT Bilateral pt unsure of when KIDNEY STONE SURGERY 2017 I had kidney stones blasted LASER HOLMIUM URETEROSCOPY RENAL STONES < OR=1CM; STONE BASKET EXTRACTION Left 06/28/2024 Performed by Esme Chen MD at [facility] LASER HOLMIUM URETEROSCOPY WITH VACUUM ASPIRATION/STONE BASKETING Left 08/08/2024 Performed by Esme Chen MD at [facility] REMOVAL TUBE NEPHROSTOMY Left 06/28/2024 Performed by Esme Chen MD at [facility] TONSILLECTOMY as a child UMBILICAL HERNIA REPAIR pt unsure of when URETERAL DILATION Left 06/28/2024 Performed by Esme Chen MD at [facility] Family History Problem Relation Age of [...] damage causing pain and loss of function. tnzwwpsj-fmhs-HR-calcium &mins (THERAGRAN-M) 9 mg iron-400 mcg tablet [...] to see a doctor that goes to [place]. Follow-up: CT Urogram with Cr prior. Offday [...] SHAHZAD Coleman 11/20/24 1308 documented in this [facility]02-19-2025 Miscellaneous Notes* Telephone Encounter - Esme Chen MD - 09/11/2024 7:47 AM EST Patient had left ureteral stent removal today after previous ureteroscopy. Please have her follow up with SHAHZAD Landaverde in 2 months with a renal ultrasound. Thanks. documented in this [facility]02-19-2025 Telephone encounter Note* Telephone Encounter - Esme Chen MD - 09/11/2024 7:47 AM EST Patient had left ureteral stent removal today after previous ureteroscopy. Please have her follow up with SHAHZAD Landaverde in 2 months with a renal ultrasound. Thanks. [facility] Screenie [id number] Miscellaneous Notes* Telephone Encounter - Esme Chen MD - 08/09/2024 4:46 PM EST Patient had left ureteroscopy with stone treatment on 08/08. She needs to get a CT which I ordered scheduled at [facility] in the near future and based on these results, I will schedule her for3rd stage ureteroscopy or stent removal. Thanks. * Telephone Encounter - Ina Thompson CMA - 08/09/2024 4:46 PM EST [address] you Dr. Chen. [facility] for the pt to call central scheduling to get that CT scheduled. Also sent the pt a [employer] message. documented in this encounterCleveland Clinic [facility]01-17-2025 Telephone encounter Note* Telephone Encounter - Esme Chen MD - 08/09/2024 4:46 PM EST Patient had left ureteroscopy with stone treatment on 08/08. She needs to get a CT which I ordered scheduled at [facility] in the near future and based on these results, I will schedule her for3rd stage ureteroscopy or stent removal. Thanks. [facility]01-17-2025 Telephone encounter Note* Telephone Encounter - Ina Thompson CMA - 08/09/2024 4:[address] EST [address] you Dr. Chen. [facility] for the pt to call central scheduling to get that CT scheduled. Also sent the pt a [employer] message. [facility]12-31-[facility] History and physical note* Tanya Perea, CARO-PELLETIZER TENDER - 07/23/2024 10:30 AM EST PRE-OPERATIVE HISTORY [...] was seen in the emergency room at [facility]. She was then transferred to [place]. In a review of the record, she [...] to urinate. Not In System Ref Prov uhaghucd-ojql-GG-calcium &mins (THERAGRAN-M) 9 mg iron-400 mcg tablet [...] past Migraines 07/23/2024 6x year Septic shock ([facility]) 05/21/2024 Visual impairment glasses Past Surgical History: Procedure Laterality Date CYSTOSCOPY INSERTION STENT URETER Left 06/28/2024 Performed by Esme Chen MD at [facility] CYSTOSCOPY RETROGRADE PYELOGRAM Left 06/28/2024 Performed by Esme Chen MD at [facility] HYSTERECTOMY age 42's INGUINAL HERNIA REPAIR x2 pt unsure of date JOINT REPLACEMENT Bilateral pt unsure of when KIDNEY STONE SURGERY 2017 I had kidney stones blasted LASER HOLMIUM URETEROSCOPY RENAL STONES < OR=1CM; STONE BASKET EXTRACTION Left 06/28/2024 Performed by Esme Chen MD at [facility] REMOVAL TUBE NEPHROSTOMY Left 06/28/2024 Performed by Esme Chen MD at [facility] TONSILLECTOMY as a child UMBILICAL HERNIA REPAIR pt unsure of when URETERAL DILATION Left 06/28/2024 Performed by Esme Chen MD at [facility] Family History Problem Relation Age of [...] Social History Narrative 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 She was then transferred to [place]. In a review of the record, she [...] to urinate. Not In System Ref Prov jyvihqrb-kngq-YN-calcium &mins (THERAGRAN-M) 9 mg iron-400 mcg tablet [...] past Migraines 07/23/2024 6x year Septic shock ([facility]) 05/21/2024 Visual impairment glasses Past Surgical History: Procedure Laterality Date CYSTOSCOPY INSERTION STENT URETER Left 06/28/2024 Performed by Esme Chen MD at [facility] CYSTOSCOPY RETROGRADE PYELOGRAM Left 06/28/2024 Performed by Esme Chen MD at [facility] HYSTERECTOMY age 42's INGUINAL HERNIA REPAIR x2 pt unsure of date JOINT REPLACEMENT Bilateral pt unsure of when KIDNEY STONE SURGERY 2017 I had kidney stones blasted LASER HOLMIUM URETEROSCOPY RENAL STONES < OR=1CM; STONE BASKET EXTRACTION Left 06/28/2024 Performed by Esme Chen MD at [facility] REMOVAL TUBE NEPHROSTOMY Left 06/28/2024 Performed by Esme Chen MD at [facility] TONSILLECTOMY as a child UMBILICAL HERNIA REPAIR pt unsure of when URETERAL DILATION Left 06/28/2024 Performed by Esme Chen MD at [facility] Family History Problem Relation Age of [...] Social History Narrative 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 Report to the Entrance B. Check in at the information desk the surgery. The waiting room located on the second floor. If you have any questions prior to surgery, please call Pre-Admission Clinic at [phone] between 7:30 am and 4:30 pm Monday through Monday. If you have questions the morning of surgery, please call the Pre-op Department at [phone]. Notify your SURGEON if you develop any [...] piercings ,hair extensions that contain metal, nail indian, make-up, and contact lens. You may brush [...] RIGHTS AND RESPONSIBILITIES As a patient at [facility], you have the right to: Receive medical care and be informed of who is taking care of you Be treated with dignity and respect Have a family member/livestock sales representative of choice and your physician notified of your admission Receive information and actively participate in decisions about your care and treatment Refuse care, treatment and services Decide who may provide your support and speak for you Access sabianist and spiritual services Participate in ethical issues [...] of hospital charges and payment methods Patient/patient livestock sales representative responsibilities are to: Provide information [...] as promptly as possible documented in this [facility]12-07-2024 Miscellaneous Notes* Telephone Encounter - Esme Chen MD - 06/29/2024 10:36 PM EST Patient had left ureteroscopy with holmium laser lithotripsy of distal ureteral stone with me on 06/28/2024. Needs to be scheduled for cystoscopy with left ureteroscopy and holmium laser lithotripsy of renal stone with stent exchange, 1.5 hours, [facility] next available with me. Need CVAC or steerable access sheath (ClearPetra) available. Urine culture 1 week before. Thanks. documented in this [facility]12-07-2024 Telephone encounter Note* Telephone Encounter - Esme Chen MD - 06/29/2024 10:36 PM EST Patient had left ureteroscopy with holmium laser lithotripsy of distal ureteral stone with me on 06/28/2024. Needs to be scheduled for cystoscopy with left ureteroscopy and holmium laser lithotripsy of renal stone with stent exchange, 1.5 hours, [facility] next available with me. Need CVAC or steerable access sheath (ClearPetra) available. Urine culture 1 week before. Thanks. [facility]11-22-2024 Instructions* Pre-Procedure Instructions - Regi Rivera RN - 06/14/2024 11:30 AM EST Your surgery/procedure is scheduled at [facility] on 06/28/24 at 1 pm Arrival Time 11 am [facility] Address: [address] [place] [address] Park in P1 Parking lot located on [facility]. Report to the Entrance B. Check in at the information desk the surgery. The waiting room located on the second floor. If you have any questions prior to surgery, please call Pre-Admission Clinic at [phone] between 7:30 am and 4:30 pm Monday through Monday. If you have questions the morning of surgery, please call the Pre-op Department at [phone]. Notify your SURGEON if you develop any [...] piercings ,hair extensions that contain metal, nail indian, make-up, and contact lens. You may brush [...] RIGHTS AND RESPONSIBILITIES As a patient at [facility], you have the right to: Receive medical care and be informed of who is taking care of you Be treated with dignity and respect Have a family member/livestock sales representative of choice and your physician notified of your admission Receive information and actively participate in decisions about your care and treatment Refuse care, treatment and services Decide who may provide your support and speak for you Access sabianist and spiritual services Participate in ethical issues [...] of hospital charges and payment methods Patient/patient livestock sales representative responsibilities are to: Provide information about health status to facilitate care, treatment and services Follow the treatment, plan, keep appointments and speak up when you do not understand the plan Respect the rights of other patients and healthcare personnel Follow organizational rules and regulations that support quality care and a safe environment Fulfill financial obligations as promptly as possible [facility]11-22-2024 Miscellaneous Notes* Pre-Procedure Instructions - Regi Rivera RN - 06/14/2024 11:30 AM EST Your surgery/procedure is scheduled at [facility] on 06/28/24 at 1 pm Arrival Time 11 am [facility] Address: [address] [place] [address] Park in [address]1 Parking lot located on [facility]. Report to the Entrance B. Check in at the information desk the surgery. The waiting room located on the second floor. If you have any questions prior to surgery, please call Pre-Admission Clinic at [phone] between 7:30 am and 4:30 pm Monday through Monday. If you have questions the morning of surgery, please call the Pre-op Department at [phone]. Notify your SURGEON if you develop any [...] piercings ,hair extensions that contain metal, nail indian, make-up, and contact lens. You may brush [...] RIGHTS AND RESPONSIBILITIES As a patient at [facility], you have the right to: Receive medical care and be informed of who is taking care of you Be treated with dignity and respect Have a family member/livestock sales representative of choice and your physician notified of your admission Receive information and actively participate in decisions about your care and treatment Refuse care, treatment and services Decide who may provide your support and speak for you Access sabianist and spiritual services Participate in ethical issues [...] of hospital charges and payment methods Patient/patient livestock sales representative responsibilities are to: Provide information [...] as promptly as possible documented in this encounterCleveland Clinic [facility]11-07-2024 Evaluation note* Diagnosis Onset Date Resolution Status Admit Date Elevated liver function tests acuteNovember 2023 2:12pmSepsisacuteNovember 2023 2:12pm [facility] Work Phone: 1(844) 332-297011-04-2024 Miscellaneous Notes* Telephone Encounter - SENA Vidal - 05/27/2024 1:19 PM EST Audra from [facility] is calling because there are no [...] her vm is full. documented in this encounterCleveland Clinic [facility]11-04-2024 Telephone encounter Note* Telephone Encounter - SENA Vidal - 05/27/2024 1:19 PM EST Audra from [facility] is calling because there are no orders for dressing changes, bag changes,etc. Are you the one to do this for the pt? [id number] Telephone encounter Note* Telephone Encounter - Esme Chen MD - 05/27/2024 1:19 PM EST Dressing change weekly, flush with 10 mL sterile saline as needed for no drainage, no bag change for now. Thanks. [employer] Work Phone: [phone]) [phone] Telephone encounter Note* Telephone Encounter - SENA Vidal - 05/27/2024 1:19 PM EST I tried calling Audra back, , and her vm is full. [facility] Screen[employer] [id number] Progress note* Significant Event - Disha Mckeon RN - 05/26/2024 3:50 PM EST Leaving with to car currently [facility] Screen[employer] [id number] Miscellaneous Notes* Significant Event - Disha Mckeon RN - 05/26/2024 3:50 PM EST Leaving with to car currently * Plan of Care - Disha Mckeon RN - 05/26/2024 2:47 PM EST Problem: Pain Goal: Patient goal is pain score less than 4, able to rest, and participant in treatment plan as appropriate Description: INTERVENTIONS: 1. Encourage patient or legal livestock sales representative to report early pain and [...] per policy 9. Teach patient or legal livestock sales representative interventions for comforting Outcome: Completed [...] at the bedside 7. Instruct patient/ patient livestock sales representative about use of safety devices 8. Include patient/ patient livestock sales representative in decisions related to safety [...] hygiene technique 7. Identify and instruct patient/patient livestock sales representative in use of appropriate isolation precautionsfor identified infection/symptoms 8. Provide and discuss with patient/patient livestock sales representative on educational MDRO sheet 9. Encourage and monitor nutritional status daily and consult crayon sorting machine feeder if indicated 10. Implement neutropenic guidelines as needed 11. Review exposure to history of communicable disease and recent travel history on admission 12. Encourage annual influenza vaccine 13. Encourage pneumonia vaccine Outcome: Completed Note: Evaluation of progress towards goal: goal met Problem: Knowledge Deficit Goal: Patient/patient livestock sales representative demonstrates understanding of disease process, [...] supplement as ordered 13. Collaborate with clinical crayon sorting machine feeder 14. Include patient/ patient's livestock sales representative in decisions related to nutrition [...] Moderate - High Risk Fall Score Description: [place] Fall Score of =/> 25 or indicated by [facility] Assessment Goal: Patient should be free from fall Description: Interventions: 1. [place] to environment 2. Hourly rounds addressing the [...] non-skid footwear 11. Teach patient and patient livestock sales representative to maintain environment for safety [...] (cane, walker) within reach 19. Request patient livestock sales representative bring adaptive equipment/mobility aids from home or obtain and provide as needed 20. Consult pharmacy regarding effects of med's affecting mobility, cognition, and alternatives 21. Obtain physician order for PT if risk factors associated with mobility are present 22. Obtain physician order for OT as appropriate 23. Utilize diversional activities 24. Educate patient and patient livestock sales representative how to maintain a safe environment during visitationtimes (notify nurse prior to leaving bedside) 25. Consider appropriateness of medical or non-medical corps officer 26. Set up voiding schedule as appropriate (every 2 hours) Outcome: Completed Note: Evaluation of progress towards goal: goal met * Discharge Planning Note - Melissa Jones - 05/26/2024 2:11 PM EST DISCHARGE PLANNING NOTE CRF sent to [address]- [place] (P# ; F# ); [place] (P#[phone] ; F# [phone]) use [facility] office and [facility], [facility] [employer] [place], [place] formerly [facility] - (P# ; F# ) * Discharge Planning Note - Sakina Wooten RN - 05/26/2024 1:59 PM EST DISCHARGE PLANNING NOTE Patient is ready for discharge. Tasked RC to send CRF to [address] and [facility]. CN contacted [facility] to confirm patient is discharging today, spoke with Jacey. They will reachout to patient to arrange delivery of medication/supplies. [address] is scheduled for a SOC tomorrow between 12-pm. RN updated. - Sakina Wooten RN 05/26/24 2:01 PM * Plan of Care - Delilah Becerra RN - 05/26/2024 2:29 AM EST Problem: Pain Goal: Patient goal is pain score less than 4, able to rest, and participant in treatment plan as appropriate Description: INTERVENTIONS: 1. Encourage patient or legal livestock sales representative to report early pain and [...] per policy 9. Teach patient or legal livestock sales representative interventions for comforting Outcome: Progressing [...] at the bedside 7. Instruct patient/ patient livestock sales representative about use of safety devices 8. Include patient/ patient livestock sales representative in decisions related to safety [...] hygiene technique 7. Identify and instruct patient/patient livestock sales representative in use of appropriate isolation precautionsfor identified infection/symptoms 8. Provide and discuss with patient/patient livestock sales representative on educational MDRO sheet 9. Encourage and monitor nutritional status daily and consult crayon sorting machine feeder if indicated 10. Implement neutropenic guidelines as [...] cold sores. Problem: Knowledge Deficit Goal: Patient/patient livestock sales representative demonstrates understanding of disease process, [...] supplement as ordered 13. Collaborate with clinical crayon sorting machine feeder 14. Include patient/ patient's livestock sales representative in decisions related to nutrition [...] be free from fall Description: Interventions: 1. [place] to environment 2. Hourly rounds addressing the [...] non-skid footwear 11. Teach patient and patient livestock sales representative to maintain environment for safety [...] (cane, walker) within reach 19. Request patient livestock sales representative bring adaptive equipment/mobility aids from home or obtain and provide as needed 20. Consult pharmacy regarding effects of med's affecting mobility, cognition, and alternatives 21. Obtain physician order for PT if risk factors associated with mobility are present 22. Obtain physician order for OT as appropriate 23. Utilize diversional activities 24. Educate patient and patient livestock sales representative how to maintain a safe environment during visitationtimes (notify nurse prior to leaving bedside) 25. Consider appropriateness of medical or non-medical corps officer 26. Set up voiding schedule as appropriate [...] Description: INTERVENTIONS: 1. Encourage patient or legal livestock sales representative to report early pain and [...] per policy 9. Teach patient or legal livestock sales representative interventions for comforting Outcome: Progressing [...] at the bedside 7. Instruct patient/ patient livestock sales representative about use of safety devices 8. Include patient/ patient livestock sales representative in decisions related to safety [...] hygiene technique 7. Identify and instruct patient/patient livestock sales representative in use of appropriate isolation precautionsfor identified infection/symptoms 8. Provide and discuss with patient/patient livestock sales representative on educational MDRO sheet 9. Encourage and monitor nutritional status daily and consult crayon sorting machine feeder if indicated 10. Implement neutropenic guidelines as needed 11. Review exposure to history of communicable disease and recent travel history on admission 12. Encourage annual influenza vaccine 13. Encourage pneumonia vaccine Outcome: Progressing Note: Evaluation of progress towards goal: Infection prevention measures put into place. Will continue to monitor for signs and symptoms of infection. Problem: Knowledge Deficit Goal: Patient/patient livestock sales representative demonstrates understanding of disease process, [...] being looked over by charge nurse. * PT/OT/MARINE ENGINEERING PROFESSOR - Cristino Hugo, PT - 05/24/2024 2:50 [...] Medical History: Diagnosis Date Migraines Septic shock ([facility]) 05/21/2024 Past Surgical History: Procedure Laterality Date [...] Equipment: gait belt, RW, percutaneous drain, guevara Telemetry/Converter Supervisor: Yes Oxygen Used: room air Other: Fall [...] Goal: Patient will perform transfers with Modified [place] Dates: Start: 05/24/24 Expected End: 06/22/24 Description: Goal Description: Disciplines: PT Physical Therapy Care Plan (Resolved) There are no resolved problems. Principal Problem: Septic shock (CMS-HCC) * PT/OT/MARINE ENGINEERING PROFESSOR - Melissa Andrade OTR/Alicia - 05/24/2024 2:35 [...] decline resulting from admit as transfer from [facility] on 05/21/24 with fever, chills and general weakness. 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 Principal Problem: Septic shock ([facility]) * Discharge Planning Note - KALINA Sanon [...] work faxed prescription- wait insurance coverage and [facility]- wait acceptance. Wait PT/OT evaluations and recommendations. CN will continue to follow and is available should any further needs arise. - KALINA SANON 05/24/24 12:20 PM [facility] denied referral. Social work sent referral to [facility] and [facility]. [facility] is not sure if they are available to start services until Monday as they will need insurance approval. Waiting [facility] to inform of [...] Referral sent [place] [facility] [place] [facility] - (P# ; F# ); [facility] [employer] [place] [facility] - (P# ; F# ) * Plan of Care - Jovany Wynne RN - 05/23/2024 8:52 AM EDT Problem: Pain Goal: Patient goal is pain score less than 4, able to rest, and participant in treatment plan as appropriate Description: INTERVENTIONS: 1. Encourage patient or legal livestock sales representative to report early pain and [...] per policy 9. Teach patient or legal livestock sales representative interventions for comforting Outcome: Progressing [...] at the bedside 7. Instruct patient/ patient livestock sales representative about use of safety devices 8. Include patient/ patient livestock sales representative in decisions related to safety [...] hygiene technique 7. Identify and instruct patient/patient livestock sales representative in use of appropriate isolation precautionsfor identified infection/symptoms 8. Provide and discuss with patient/patient livestock sales representative on educational MDRO sheet 9. Encourage and monitor nutritional status daily and consult crayon sorting machine feeder if indicated 10. Implement neutropenic guidelines as [...] infection/ sepsis. 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 [place] to environment 2. Hourly rounds addressing the [...] non-skid footwear 11. Teach patient and patient livestock sales representative to maintain environment for safety [...] (cane, walker) within reach 19. Request patient livestock sales representative bring adaptive equipment/mobility aids from home or obtain and provide as needed 20. Consult pharmacy regarding effects of med's affecting mobility, cognition, and alternatives 21. Obtain physician order for PT if risk factors associated with mobility are present 22. Obtain physician order for OT as appropriate 23. Utilize diversional activities 24. Educate patient and patient livestock sales representative how to maintain a safe environment during visitationtimes (notify nurse prior to leaving bedside) 25. Consider appropriateness of medical or non-medical corps officer 26. Set up voiding schedule as appropriate [...] Description: INTERVENTIONS: 1. Encourage patient or legal livestock sales representative to report early pain and [...] per policy 9. Teach patient or legal livestock sales representative interventions for comforting Outcome: Progressing [...] at the bedside 7. Instruct patient/ patient livestock sales representative about use of safety devices 8. Include patient/ patient livestock sales representative in decisions related to safety [...] Description: INTERVENTIONS: 1. Encourage patient or legal livestock sales representative to report early pain and [...] per policy 9. Teach patient or legal livestock sales representative interventions for comforting 05/22/2024 1633 [...] at the bedside 7. Instruct patient/ patient livestock sales representative about use of safety devices 8. Include patient/ patient livestock sales representative in decisions related to safety [...] hygiene technique 7. Identify and instruct patient/patient livestock sales representative in use of appropriate isolation precautionsfor identified infection/symptoms 8. Provide and discuss with patient/patient livestock sales representative on educational MDRO sheet 9. Encourage and monitor nutritional status daily and consult crayon sorting machine feeder if indicated 10. Implement neutropenic guidelines as [...] Score of =/> 25 or indicated by [facility] Assessment Goal: Patient should be free from fall Description: Interventions: 1. [place] to environment 2. Hourly rounds addressing the [...] non-skid footwear 11. Teach patient and patient livestock sales representative to maintain environment for safety [...] (cane, walker) within reach 19. Request patient livestock sales representative bring adaptive equipment/mobility aids from home or obtain and provide as needed 20. Consult pharmacy regarding effects of med's affecting mobility, cognition, and alternatives 21. Obtain physician order for PT if risk factors associated with mobility are present 22. Obtain physician order for OT as appropriate 23. Utilize diversional activities 24. Educate patient and patient livestock sales representative how to maintain a safe environment during visitationtimes (notify nurse prior to leaving bedside) 25. Consider appropriateness of medical or non-medical corps officer 26. Set up voiding schedule as appropriate [...] 05/22/2024 2:06 PM EDT DISCHARGE PLANNING NOTE Sourcer met with patient, introduced self, and explained role. Patient is alert and oriented, sitting in lazy boy chair, cooperative. Patient educated on safe discharge plan. Pt admitted 05/21/2024 with Septic shock ([facility]) [A41.9, R65.21] Elevated troponin [R79.89] per chart review. Consults: Urology Discharge Barriers per Daily Transition Rounds and chart review: clears, IV ATB, IV Pepcid, new neph tube, guevara Past Medical History: Diagnosis Date Migraines Septic shock ([facility]) 05/21/2024 Prior to admission patient [...] final transition needs. PCP: OLMAN SHOEMAKER MD Pharmacy:[facility] PCP and pharmacy confirmed with patient. OLMAN [...] 60 Thank you, Angella PIERCE, RN Clinical Photogrammetry Airplane Pilot Clinical Documentation Integrity Email: [email or web address] Normal Hours of availability 7:00am to 3:30pm, [...] team to transfer primary service to [facility]. I have received a verbalhand off from the ICU team. [facility] will assume care as primary team, once [...] tachypneic?. Thank you, Angella PIERCE, RN Clinical Photogrammetry Airplane Pilot Clinical Documentation Integrity Email: [email or web address] Normal Hours of availability 7:00am to 3:30pm, [...] Description: INTERVENTIONS: 1. Encourage patient or legal livestock sales representative to report early pain and [...] per policy 9. Teach patient or legal livestock sales representative interventions for comforting Outcome: Progressing [...] hygiene technique 7. Identify and instruct patient/patient livestock sales representative in use of appropriate isolation precautionsfor identified infection/symptoms 8. Provide and discuss with patient/patient livestock sales representative on educational MDRO sheet 9. Encourage and monitor nutritional status daily and consult crayon sorting machine feeder if indicated 10. Implement neutropenic guidelines as [...] pressure cuff appropriate to size of patient, alarm security or surveillance monitor, pulse oximetry, ETCO2, and reversal agents are available. An emergency resuscitation cart, advanced resuscitation medications and defibrillator are availablein the immediate area. [facility] History of Present illness Narrative* Vaishali [...] Recommendations: Reportedly CT of the abdomen from [facility] with left-sided stone with significant hydronephrosis (awaiting report) Status post left percutaneous nephrostomy tube placement Blood cultures from [facility] May 19, 2024, reportedly not yet finalized, preliminary with E coli and Enterobacterale Urine culture from [facility] on May 21, 2024 finalized with [...] Component Value Units Date/Time Blood culture #1 [[id number]] Collected: 05/23/24 1020 Specimen: Blood Updated: 05/26/24937 Specimen Notes SUBOPTIMAL VOLUME OF BLOOD COLLECTED, RESULTS MAY BE AFFECTED. Culture NO GROWTH 3 DAYS Blood culture #2 [[id number]] Collected: 05/23/24 1020 Specimen: Blood Updated: 05/26/24 0939 Specimen Notes SUBOPTIMAL VOLUME OF BLOOD COLLECTED, RESULTS MAY BE AFFECTED. Culture NO GROWTH 3 DAYS Urine culture [[id number]] Collected: 05/21/24 1525 Specimen: Urine from Guevara Catheter Specimen Updated: 05/22/24 1420 Culture <10,000 ORGANISMS/ML NORMAL URO GENITAL ALANNAH Blood culture #2 [[id number]] (Abnormal) Collected: 05/21/24 1523 Specimen: Blood Updated: 05/24/24 0705 Culture ESCHERICHIA COLI FOR SUSCEPTIBILITY, SEE PREVIOUS REPORT. Blood culture #1 [[id number]] (Abnormal) (Susceptibility) Collected: 05/21/24 1520 Specimen: Blood [...] Q8H OSVALDO meloxicam, 15 mg, oral, Daily dveqsrpm-znwq-VI-calcium &mins, 1 tablet, oral, Daily Consult PICC nurse - Midline, , , Once AND sodium chloride, 10 mL, intravenous, Q12H AND sodium chloride, 10 mL, intravenous, PRN AND sodium chloride, 20 mL, intravenous, PRN valACYclovir, 500 mg, oral, BID Thank you for allowing us to participate in the care of this patient. Please call with questions. Vaishali Alberts APRN, PELLETIZER TENDER [phone] This note was completed using a voice supervisor firearms system. Every effort was made to ensure accuracy. However, inadvertent computerized supervisor firearms errors may be present. Vaishali Alberts APRN-PELLETIZER TENDER 05/26/24 6835 * Tabby Iqbal MD - 05/25/2024 1:10 PM EDT [facility] PROGRESS NOTE 05/25/2024 Patient Name: [...] was made toensure accuracy; however, inadvertent computerized supervisor firearms errors may be present. Electronically signed by: TABBY IQBAL MD 05/25/2024 1:11 PM * Tammy Boyd APRN-PELLETIZER TENDER - 05/25/2024 8:30 AM EDT Images from [...] Recommendations: Reportedly CT of the abdomen from [facility] with left-sided stone with significant hydronephrosis (awaiting report) Status post left percutaneous nephrostomy tube placement Blood cultures from [facility] May 19, 2024, reportedly not yet finalized, preliminary with E coli and Enterobacterals Urine culture from [facility] on May 21, 2024 finalized with [...] Component Value Units Date/Time Blood culture #1 [[id number]] Collected: 05/23/24 1020 Specimen: Blood Updated: 05/25/24 1038 Specimen Notes SUBOPTIMAL VOLUME OF BLOOD COLLECTED, RESULTS MAY BE AFFECTED. Culture NO GROWTH 2 DAYS Blood culture #2 [[id number]] Collected: 05/23/24 1020 Specimen: Blood Updated: 05/25/24 1039 Specimen Notes SUBOPTIMAL VOLUME OF BLOOD COLLECTED, RESULTS MAY BE AFFECTED. Culture NO GROWTH 2 DAYS Urine culture [[id number]] Collected: 05/21/24 1525 Specimen: Urine from Guevara Catheter Specimen Updated: 05/22/24 1420 Culture <10,000 ORGANISMS/ML NORMAL URO GENITAL ALANNAH Blood culture #2 [[id number]] (Abnormal) Collected: 05/21/24 1523 Specimen: Blood Updated: 05/24/24 0705 Culture ESCHERICHIA COLI FOR SUSCEPTIBILITY, SEE PREVIOUS REPORT. Blood culture #1 [[id number]] (Abnormal) (Susceptibility) Collected: 05/21/24 1520 Specimen: Blood [...] Q8H OSVALDO meloxicam, 15 mg, oral, Daily cgiegjht-epcb-JG-calcium &mins, 1 tablet, oral, Daily Consult PICC [...] after 1700, and for urgent matters call [phone], if no answer call [phone] This note was completed using a voice supervisor firearms system. Every effort was made to ensure accuracy. However, inadvertent computerized supervisor firearms errors may be present. STEPHEN Mills 05/25/24 1508 STEPHEN Mills 05/25/24 1901 * Lesvia Andrews MD - 05/24/2024 2:10 PM EDT 05/24/2024 Patient Name: Sharri Murillo : 1955 Problem List: Principal Problem: Septic shock ([facility]) Assessment and Plan: Septic shock secondary to [...] get CT abdomen pelvis official results from [facility] and cultures from [facility] CT of the abdomen showed left-sided stone [...] Component Value Units Date/Time Blood culture #1 [[id number]] Collected: 05/23/24 1020 Specimen: Blood Updated: 05/24/24 1038 Specimen Notes SUBOPTIMAL VOLUME OF BLOOD COLLECTED, RESULTS MAY BE AFFECTED. Culture NO GROWTH 1 DAY Blood culture #2 [[id number]] Collected: 05/23/24 1020 Specimen: Blood Updated: 05/24/24 1039 Specimen Notes SUBOPTIMAL VOLUME OF BLOOD COLLECTED, RESULTS MAY BE AFFECTED. Culture NO GROWTH 1 DAY Urine culture [[id number]] Collected: 05/21/24 1525 Specimen: Urine from Guevara Catheter Specimen Updated: 05/22/24 1420 Culture <10,000 ORGANISMS/ML NORMAL URO GENITAL ALANNAH Blood culture #2 [[id number]] (Abnormal) Collected: 05/21/24 1523 Specimen: Blood Updated: 05/24/24 0705 Culture ESCHERICHIA COLI FOR SUSCEPTIBILITY, SEE PREVIOUS REPORT. Blood culture #1 [[id number]] (Abnormal) (Susceptibility) Collected: 05/21/24 1520 Specimen: Blood [...] was then dilated to accommodate a 10 Ethiopian nephrostomy tube. The catheter was secured with a single 0 Prolene suture. Dressing applied. Patient tolerated all procedures well and there were no complications. FINDINGS: Severe left hydronephrosis, fluoroscopic images demonstrated appropriate positioning of nephrostomy tube within the collecting system IMPRESSION: Successful image guided placement of left 10 Ethiopian percutaneous nephrostomy tube PLAN: Maintained to gravity [...] Q8H OSVALDO meloxicam, 15 mg, oral, Daily utuonkpv-ajiz-KM-calcium &mins, 1 tablet, oral, Daily Thank you for allowing us to participate in the care of this patient. Please call with questions. This note was completed using a voice supervisor firearms system. Every effort was made to ensure accuracy. However, inadvertent computerized supervisor firearms errors may be present. 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 Examined while resting in the chair. present at bedside. Patient states she is havingno pain and no shortness of breath. Denies nausea vomiting. Endorses good appetite. No fevers reported overnight. Hospital Problem: Principal Problem: Septic shock ([facility]) OBJECTIVE: General Appearance: Comfortable, in [...] Procedure Component Value Units Date/Time Urine culture [[id number]] Collected: 05/21/24 152 Specimen: Urine from Guevara Catheter Specimen Updated: 05/22/24 1420 Culture <10,000 ORGANISMS/ML NORMAL URO GENITAL ALANNAH Blood culture #2 [[id number]] Collected: 05/21/24 1523 Specimen: Blood Updated: 05/22/24 0609 Culture GRAM NEGATIVE RODS CULTURE IN PROGRESS Blood culture #1 [[id number]] (Abnormal) Collected: 05/21/24 1520 Specimen: Blood Updated: 05/23/24 0918 Culture ESCHERICHIA COLI CULTURE IN PROGRESS Escherichia coli detected by PCR. No resistance genes detected by PCR. Results from last 7 days Lab Units 05/23/24 0258 05/22/24 0200 05/21/24 1320 05/21/24 1310 BEDSIDE GLUCOSE mg/dL -- -- 114* -- GLUCOSE mg/dL 93 116* -- 110* Microbiology Results Procedure Component Value Units Date/Time Urine culture [[id number]] Collected: 05/21/24 1525 Specimen: Urine from Guevara Catheter Specimen Updated: 05/22/24 1420 Culture <10,000 ORGANISMS/ML NORMAL URO GENITAL ALANNAH Blood culture #2 [[id number]] Collected: 05/21/24 1523 Specimen: Blood Updated: 05/22/24 0609 Culture GRAM NEGATIVE RODS CULTURE IN PROGRESS Blood culture #1 [[id number]] (Abnormal) Collected: 05/21/24 1520 Specimen: Blood Updated: [...] and Sleep Pulmonary / Critical Care Pager: [phone] Office : [phone] Fax : [phone] This note was created with the assistance [...] - 68 y.o. - 1955 N - [id number] [facility] # - [id number] Date of Admission - 05/21/2024 12:52 PM [...] Procedure Component Value Units Date/Time Urine culture [[id number]] Collected: 05/21/241802 Specimen: Urine Updated: 05/21/24 180 Blood culture #2 [[id number]] Collected: 05/21/24 1523 Specimen: Blood Updated: 05/22/24 0609 Culture GRAM NEGATIVE RODS CULTURE IN PROGRESS Blood culture #1 [[id number]] (Abnormal) Collected: 05/21/24 152 Specimen: Blood Updated: 05/22/24 0608 Culture GRAM NEGATIVE RODS CULTURE IN PROGRESS Escherichia coli detected by PCR. No resistance genes detected by PCR. Lab Results Component Value Date INR 1.2 (H) 05/21/2024 PROTIME 14.1 (H) 05/21/2024 Radiology (See actual reports for details) Ryan Benitez MD [facility] Pulmonary and Sleep Pulmonary / Critical Care Pager: [phone] Office : [phone] Fax : [phone] 48:31 AM * Lance Bell [facility] - 05/21/2024 3:24 PM EDT [facility] Department of Pharmacy Pharmacy-Physician Communication Pt [...] mg/dL (H)). Famotidine regimen was renally-adjusted per [facility] policy Thank you for your consideration. If we can offer more assistance, please fee free to call us at x [phone]. Lance Bell PharmD, [facility] * Lance Bell RP - 05/21/2024 3:20 PM EDT [facility] Pharmacy-Physician Communication Pt name: [...] 1.5 mg/dL (H)). Zosyn was dosed per [facility] policy Thank you for your consideration. If we can offer more assistance, please fee free to call us at [phone]. Lance Bell PharmD, [facility] documented in this [facility] Plan of care note * Plan of Care - Disha Mckeon RN - 05/26/2024 2:47 PM EST Problem: Pain Goal: Patient goal is pain score less than 4, able to rest, and participant in treatment plan as appropriate Description: INTERVENTIONS: 1. Encourage patient or legal livestock sales representative to report early pain and [...] per policy 9. Teach patient or legal livestock sales representative interventions for comforting Outcome: Completed [...] at the bedside 7. Instruct patient/ patient livestock sales representative about use of safety devices 8. Include patient/ patient livestock sales representative in decisions related to safety [...] hygiene technique 7. Identify and instruct patient/patient livestock sales representative in use of appropriate isolation precautionsfor identified infection/symptoms 8. Provide and discuss with patient/patient livestock sales representative on educational MDRO sheet 9. Encourage and monitor nutritional status daily and consult crayon sorting machine feeder if indicated 10. Implement neutropenic guidelines as needed 11. Review exposure to history of communicable disease and recent travel history on admission 12. Encourage annual influenza vaccine 13. Encourage pneumonia vaccine Outcome: Completed Note: Evaluation of progress towards goal: goal met Problem: Knowledge Deficit Goal: Patient/patient livestock sales representative demonstrates understanding of disease process, [...] supplement as ordered 13. Collaborate with clinical crayon sorting machine feeder 14. Include patient/ patient's livestock sales representative in decisions related to nutrition [...] Score of =/> 25 or indicated by [facility] Assessment Goal: Patient should be free from fall Description: Interventions: 1. [place] to environment 2. Hourly rounds addressing the [...] non-skid footwear 11. Teach patient and patient livestock sales representative to maintain environment for safety [...] (cane, walker) within reach 19. Request patient livestock sales representative bring adaptive equipment/mobility aids from home or obtain and provide as needed 20. Consult pharmacy regarding effects of med's affecting mobility, cognition, and alternatives 21. Obtain physician order for PT if risk factors associated with mobility are present 22. Obtain physician order for OT as appropriate 23. Utilize diversional activities 24. Educate patient and patient livestock sales representative how to maintain a safe environment during visitationtimes (notify nurse prior to leaving bedside) 25. Consider appropriateness of medical or non-medical corps officer 26. Set up voiding schedule as appropriate (every 2 hours) Outcome: Completed Note: Evaluation of progress towards goal: goal met [facility]11-03-2024 Progress note* Discharge Planning Note - Melissa Jones - 05/26/2024 2:11 PM EST DISCHARGE PLANNING NOTE CRF sent to [address]- [place] (P# ; F# ); [place] (P#[phone] ; F# [phone]) use [place] main office and [facility], An [facility]- [place], [place] [facility] - (P# ; F# ) [facility]11-03-2024 Progress note* Discharge Planning Note - Sakina Wooten RN - 05/26/2024 1:59 PM EST DISCHARGE PLANNING NOTE Patient is ready for discharge. Tasked [facility] to send CRF to [id number]. CN contacted [facility] to confirm patient is discharging today, spoke with Jacey. They will reachout to patient to arrange delivery of medication/supplies. [id number] is scheduled for a SOC tomorrow between 12-pm. RN updated. - Sakina Wooten RN 05/26/24 2:01 PM [facility]11-03-2024 Hospital course Narrative* Tabby Iqbal MD - 05/26/2024 1:22 PM EST Images from the original note were not included. DISCHARGE NOTE Demographics: Patient Name: Sharri Murillo : 1955 DATE OF ADMISSION: 05/21/2024 DATE OF DISCHARGE: 05/26/2024 DISCHARGE DIAGNOSES: Principal Problem: Septic shock ([facility]) CONSULTANTS: Consulting Providers Provider Service [...] LFT weekly while on antibiotic, faxed to [place] at [phone]. IV flushes as per protocol gabapentin 100 [...] 15 mg tablet Commonly known as: MOBIC chyaimza-jaio-DU-calcium &mins 9 mg iron-400 mcg tablet Commonly known as: THERAGRAN-M MYRBETRIQ 50 mg tablet extended release 24 hr Generic drug: mirabegron nitrofurantoin 100 mg capsule Commonly known as: MACRODANTIN SUMAtriptan 25 mg tablet Commonly known as: IMITREX Where to Get Your Medications These medications were sent to [facility]/pharmacy #[id number] - [address] AT [place] [address] gabapentin 100 mg capsule valACYclovir 500 mg [...] was then dilated to accommodate a 10 Ethiopian nephrostomy tube. The catheter was secured with a single 0 Prolene suture. Dressing applied. Patient tolerated all procedures well and there were no complications. FINDINGS: Severe left hydron ephrosis, fluoroscopic images demonstrated appropriate positioning of nephrostomy tube within the collecting system IMPRESSION: Successful image guided placement of left 10 Ethiopian percutaneous nephrostomy tube PLAN: Maintained to gravity [...] Follow up: Esme Chen MD [address] [facility] [id number] Follow up Follow with your original urologist to schedule stone treatment, if you desire you may schedule your procedure with [facility] if your urologist is not able to complete the procedure Olman Shoemaker MD [facility] [address] Follow up in 1 week(s) For most accurate medication list, please review the discharge medication summary. 40 minutes were spent on discharging this patient. documented in this encounterC[facility]11-03-2024 Plan of care note * Plan of Care - Delilah Becerra RN - 05/26/2024 2:29 AM EST Problem: Pain Goal: Patient goal is pain score less than 4, able to rest, and participant in treatment plan as appropriate Description: INTERVENTIONS: 1. Encourage patient or legal livestock sales representative to report early pain and [...] per policy 9. Teach patient or legal livestock sales representative interventions for comforting Outcome: Progressing [...] at the bedside 7. Instruct patient/ patient livestock sales representative about use of safety devices 8. Include patient/ patient livestock sales representative in decisions related to safety [...] hygiene technique 7. Identify and instruct patient/patient livestock sales representative in use of appropriate isolation precautionsfor identified infection/symptoms 8. Provide and discuss with patient/patient livestock sales representative on educational MDRO sheet 9. Encourage and monitor nutritional status daily and consult crayon sorting machine feeder if indicated 10. Implement neutropenic guidelines as [...] cold sores. Problem: Knowledge Deficit Goal: Patient/patient livestock sales representative demonstrates understanding of disease process, [...] supplement as ordered 13. Collaborate with clinical crayon sorting machine feeder 14. Include patient/ patient's livestock sales representative in decisions related to nutrition [...] be free from fall Description: Interventions: 1. [place] to environment 2. Hourly rounds addressing the [...] non-skid footwear 11. Teach patient and patient livestock sales representative to maintain environment for safety [...] (cane, walker) within reach 19. Request patient livestock sales representative bring adaptive equipment/mobility aids from home or obtain and provide as needed 20. Consult pharmacy regarding effects of med's affecting mobility, cognition, and alternatives 21. Obtain physician order for PT if risk factors associated with mobility are present 22. Obtain physician order for OT as appropriate 23. Utilize diversional activities 24. Educate patient and patient livestock sales representative how to maintain a safe environment during visitationtimes (notify nurse prior to leaving bedside) 25. Consider appropriateness of medical or non-medical corps officer 26. Set up voiding schedule as appropriate (every 2 hours) Outcome: Progressing Note: Evaluation of progress towards goal: Pt free from fall with hourly rounding continued & maintained. 4 Ps addressed. [facility]11-02-2024 Plan of care note* Plan of Care - Kimberly Sauceda RN - 05/25/2024 4:22 AM EDT Problem: Pain Goal: Patient goal is pain score less than 4, able to rest, and participant in treatment plan as appropriate Description: INTERVENTIONS: 1. Encourage patient or legal livestock sales representative to report early pain and [...] per policy 9. Teach patient or legal livestock sales representative interventions for comforting Outcome: Progressing [...] at the bedside 7. Instruct patient/ patient livestock sales representative about use of safety devices 8. Include patient/ patient livestock sales representative in decisions related to safety [...] hygiene technique 7. Identify and instruct patient/patient livestock sales representative in use of appropriate isolation precautionsfor identified infection/symptoms 8. Provide and discuss with patient/patient livestock sales representative on educational MDRO sheet 9. Encourage and monitor nutritional status daily and consult crayon sorting machine feeder if indicated 10. Implement neutropenic guidelines as needed 11. Review exposure to history of communicable disease and recent travel history on admission 12. Encourage annual influenza vaccine 13. Encourage pneumonia vaccine Outcome: Progressing Note: Evaluation of progress towards goal: Infection prevention measures put into place. Will continue to monitor for signs and symptoms of infection. Problem: Knowledge Deficit Goal: Patient/patient livestock sales representative demonstrates understanding of disease process, [...] plans being looked over by charge nurse. [facility]11-01-2024 Progress note* PT/OT/MARINE ENGINEERING PROFESSOR - Cristino Hugo, PT - 05/24/2024 2:50 [...] Equipment: gait belt, RW, percutaneous drain, guevara Telemetry/Converter Supervisor: Yes Oxygen Used: room air Other: Fall [...] Goal: Patient will perform transfers with Modified [place] Dates: Start: 05/24/24 Expected End: 06/22/24 Description: Goal Description: Disciplines: PT Physical Therapy Care Plan (Resolved) There are no resolved problems. Principal Problem: Septic shock ([facility]) [facility]11-01-2024 Progress note* PT/OT/MARINE ENGINEERING PROFESSOR - HILLARY Art - 05/24/2024 2:35 PM [...] decline resulting from admit as transfer from [place] on 05/21/24 with fever, chills and general weakness. 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 Principal Problem: Septic shock ([facility]) [facility]11-01-2024 Progress note* Discharge Planning Note - KALINA [...] work faxed prescription- wait insurance coverage and [facility]- wait acceptance. Wait PT/OT evaluations and recommendations. CN will continue to follow and is available should any further needs arise. - KALINA SANON 05/24/24 12:20 PM [facility] denied referral. Social work sent referral to [facility] and [facility]. [facility] is not sure if they [...] Monday. - KALINA SANON 05/24/24 4:06 PM [facility]11-01-2024 Progress note* Discharge Planning Note - Giuliana Rodriguez - 05/24/2024 11:52 AM EDT DISCHARGE PLANNING NOTE Referral sent to [facility], An [employer]- [place], [place] [facility] - (P# ; F# ); [facility] [place] [facility] - (P# ; F# ) [facility]10-31-2024 Miscellaneous Notes* Telephone Encounter - Esme Chen MD - 05/23/2024 11:02 AM EDT Please schedule patient for cystoscopy with left ureteroscopy, holmium laser lithotripsy with stentplacement, 1.5 hours, [facility] in 4-5 weeks with wy with 1 day preadmission for IV antibiotics as well as medicine consultation. Needs urine culture 1 week prior as well. Thank you. Currently admitted to [facility]. documented in this encounterC[facility]10-[facility] Telephone encounter Note* Telephone Encounter - Esme Chen MD - 05/23/2024 11:02 AM EDT Please schedule patient for cystoscopy with left ureteroscopy, holmium laser lithotripsy with stentplacement, 1.5 hours, [facility] in 4-5 weeks with wy with 1 day preadmission for IV antibiotics as well as medicine consultation. Needs urine culture 1 week prior as well. Thank you. Currently admitted [facility]. [facility] Work Phone: [phone] Consult note* Maribel Zepeda MD - 05/23/2024 9:00 AM EDTAssociated Order(s): IP CONSULT TO INFECTIOUS DISEASES Images from the original note were not included. [facility] Infectious Diseases - Initial Consult Note Sharri Murillo Admit date/time 05/21/2024 12:52 PM Today's Date and Time: 05/23/2024, 11:31 AM Impression: Sepsis E coli bacteremia Left hydronephrosis/obstructive stone Acute kidney injury Leukocytosis 39.0 Morbid obesity of the disease BMI 49.[address] Non STEMI Recommendations Get CT abdomen pelvis official results from [facility] Follow-up culture results from [facility] CT of the abdomen showed left-sided stone [...] Medical History: Diagnosis Date Migraines Septic shock ([facility]) 05/21/2024 Past Surgical History: Past Surgical History: Procedure Laterality Date INGUINAL HERNIA REPAIR x2 KNEE ARTHROPLASTY Bilateral UMBILICAL HERNIA REPAIR Medications: cefTRIAXone (ROCEPHIN) IV, 2,000 mg, intravenous, Q24H gabapentin, 100 mg, oral, TID heparin (porcine), 5,000 Units, subcutaneous, Q8H [facility] Social History: Social History Socioeconomic History Marital [...] Component Value Units Date/Time Blood culture #1 [[id number]] Resulted: 05/23/24 1021 Specimen: Blood, Peripheral Draw Updated: 05/23/24 1021 Blood culture #2 [[id number]] Resulted: 05/23/24 1021 Specimen: Blood, Peripheral Draw Updated: 05/23/24 1021 Urine culture [[id number]] Collected: 05/21/24 1525 Specimen: Urine from Guevara Catheter Specimen Updated: 05/22/24 1420 Culture <10,000 ORGANISMS/ML NORMAL URO GENITAL ALANNAH Blood culture #2 [[id number]] Collected: 05/21/24 1523 Specimen: Blood Updated: 05/22/24 0609 Culture GRAM NEGATIVE RODS CULTURE IN PROGRESS Blood culture #1 [[id number]] (Abnormal) Collected: 05/21/24 1520 Specimen: Blood Updated: [...] was then dilated to accommodate a 10 Ethiopian nephrostomy tube. The catheter was secured with a single 0 Prolene suture. Dressing applied. Patient tolerated all procedures well and there were no complications. FINDINGS: Severe left hydron ephrosis, fluoroscopic images demonstrated appropriate positioning of nephrostomy tube within the collecting system IMPRESSION: Successful image guided placement of left 10 Ethiopian percutaneous nephrostomy tube PLAN: Maintained to gravity [...] of this patient. Please call with questions. [facility] Infectious Disease Tammy Boyd APRN, CNP Preferred method of communication between 0700 and 1700 Epic chat If no response to Epic chat within 30 minutes, after 1700, and for urgent matters call [phone], if no answer call [phone] This note was completed using a voice supervisor firearms system. Every effort was made to ensure accuracy. However, inadvertent computerized supervisor firearms errors may be present. STEPHEN Mills 05/23/24 1153 IMaribel MD, personally performed [id number] diagnostic evaluation on this patient I reviewed and performed all the whitlock component of the patient visit I reviewed FATIMAH history, exam and MDM - Maribel Zepeda MD 05/23/24 2:04 PM [facility]10-31-2024 Consult note* Maribel Zepeda MD - 05/23/2024 9:00 AM EDTAssociated Order(s): IP CONSULT TO INFECTIOUS DISEASES Images from the original note were not included. [facility] Infectious Diseases - Initial Consult Note Sharri Murillo Admit date/time 05/21/2024 12:52 PM Today's Date and Time: 05/23/2024, 11:31 AM Impression: Sepsis E coli bacteremia Left hydronephrosis/obstructive stone Acute kidney injury Leukocytosis 39.0 Morbid obesity of the disease BMI 49.2 Non STEMI Recommendations Get CT abdomen pelvis official results from [facility] Follow-up culture results from [facility] CT of the abdomen showed left-sided stone [...] Medical History: Diagnosis Date Migraines Septic shock ([facility]) 05/21/2024 Past Surgical History: Past Surgical History: [...] Component Value Units Date/Time Blood culture #1 [[id number]] Resulted: 05/23/24 1021 Specimen: Blood, Peripheral Draw Updated: 05/23/24 1021 Blood culture #2 [[id number]] Resulted: 05/23/24 1021 Specimen: Blood, Peripheral Draw Updated: 05/23/24 1021 Urine culture [[id number]] Collected: 05/21/24 1525 Specimen: Urine from Guevara Catheter Specimen Updated: 05/22/24 1420 Culture <10,000 ORGANISMS/ML NORMAL URO GENITAL ALANNAH Blood culture #2 [[id number]] Collected: 05/21/24 1523 Specimen: Blood Updated: 05/22/24 0609 Culture GRAM NEGATIVE RODS CULTURE IN PROGRESS Blood culture #1 [[id number]] (Abnormal) Collected: 05/21/24 1520 Specimen: Blood Updated: [...] was then dilated to accommodate a 10 Ethiopian nephrostomy tube. The catheter was secured with a single 0 Prolene suture. Dressing applied. Patient tolerated all procedures well and there were no complications. FINDINGS: Severe left hydron ephrosis, fluoroscopic images demonstrated appropriate positioning of nephrostomy tube within the collecting system IMPRESSION: Successful image guided placement of left 10 Ethiopian percutaneous nephrostomy tube PLAN: Maintained to gravity [...] after 1700, and for urgent matters call [phone], if no answer call [phone] This note was completed using a voice supervisor firearms system. Every effort was made to ensure accuracy. However, inadvertent computerized supervisor firearms errors may be present. STEPHEN Mills 05/23/24 1157 Maribel Gannon MD, personally performed [id number] diagnostic evaluation on this patient I reviewed [...] a 68 y.o. female who presented to [facility] with history of recent UTI on [...] ureter or renal pelvis. [facility] as she has required Vasopressor for [...] pelvis- Marked left hydro and hydroureter to [id number] UVJ stone. Possible additional proximal stone, + leftrenal stone Assessment and Plan Impression: 68 yo female with obstructing left distal ureterovesical junction stone with hydroureteronephrosis,+UTI, acute kidney injury Plan: IR consulted for left percutaneous nephrostomy tube emergently, placed and draining, culture sent Continuous supportive care, broad-spectrum antibiotics, ICU support We will need outpatient intervention of stone either here or in [place], also has left nonobstructing kidney stone No further acute urologic intervention needed at this time, will monitor - SHAHZAD LEI 05/21/24 3:04 PM Attending Attestation: I personally performed the face to face diagnostic evaluation on this patient. I have reviewed the advanced practice practitioner's history, exam, and MDM and agree with the assessment and plan as written. documented in this encounterC[facility]10-31-[facility] Plan of care note * Plan of Care - Jovany Wynne RN - 05/23/2024 8:52 AM EDT Problem: Pain Goal: Patient goal is pain score less than 4, able to rest, and participant in treatment plan as appropriate Description: INTERVENTIONS: 1. Encourage patient or legal livestock sales representative to report early pain and [...] per policy 9. Teach patient or legal livestock sales representative interventions for comforting Outcome: Progressing [...] at the bedside 7. Instruct patient/ patient livestock sales representative about use of safety devices 8. Include patient/ patient livestock sales representative in decisions related to safety [...] hygiene technique 7. Identify and instruct patient/patient livestock sales representative in use of appropriate isolation precautionsfor identified infection/symptoms 8. Provide and discuss with patient/patient livestock sales representative on educational MDRO sheet 9. Encourage and monitor nutritional status daily and consult crayon sorting machine feeder if indicated 10. Implement neutropenic guidelines as [...] infection/ sepsis. 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 [place] to environment 2. Hourly rounds addressing the [...] non-skid footwear 11. Teach patient and patient livestock sales representative to maintain environment for safety [...] (cane, walker) within reach 19. Request patient livestock sales representative bring adaptive equipment/mobility aids from home or obtain and provide as needed 20. Consult pharmacy regarding effects of med's affecting mobility, cognition, and alternatives 21. Obtain physician order for PT if risk factors associated with mobility are present 22. Obtain physician order for OT as appropriate 23. Utilize diversional activities 24. Educate patient and patient livestock sales representative how to maintain a safe environment during visitationtimes (notify nurse prior to leaving bedside) 25. Consider appropriateness of medical or non-medical corps officer 26. Set up voiding schedule as appropriate [...] patients are rounded on q1h and PRN. [facility]10-30-2024 Plan of care note* Plan of Care - Bertrand Cleary - 05/22/2024 7:05 PM EDT Problem: Pain Goal: Patient goal is pain score less than 4, able to rest, and participant in treatment plan as appropriate Description: INTERVENTIONS: 1. Encourage patient or legal livestock sales representative to report early pain and [...] per policy 9. Teach patient or legal livestock sales representative interventions for comforting Outcome: Progressing [...] at the bedside 7. Instruct patient/ patient livestock sales representative about use of safety devices 8. Include patient/ patient livestock sales representative in decisions related to safety [...] of progress towards goal: RN performing pericare. [employer] [id number] Plan of care note* Plan of Care - Senia Godfrey RN - 05/22/2024 4:34 PM EDT Problem: Pain Goal: Patient goal is pain score less than 4, able to rest, and participant in treatment plan as appropriate Description: INTERVENTIONS: 1. Encourage patient or legal livestock sales representative to report early pain and [...] per policy 9. Teach patient or legal livestock sales representative interventions for comforting 05/22/2024 1633 [...] at the bedside 7. Instruct patient/ patient livestock sales representative about use of safety devices 8. Include patient/ patient livestock sales representative in decisions related to safety [...] hygiene technique 7. Identify and instruct patient/patient livestock sales representative in use of appropriate isolation precautionsfor identified infection/symptoms 8. Provide and discuss with patient/patient livestock sales representative on educational MDRO sheet 9. Encourage and monitor nutritional status daily and consult crayon sorting machine feeder if indicated 10. Implement neutropenic guidelines as [...] be free from fall Description: Interventions: 1. [place] to environment 2. Hourly rounds addressing the [...] non-skid footwear 11. Teach patient and patient livestock sales representative to maintain environment for safety [...] (cane, walker) within reach 19. Request patient livestock sales representative bring adaptive equipment/mobility aids from home or obtain and provide as needed 20. Consult pharmacy regarding effects of med's affecting mobility, cognition, and alternatives 21. Obtain physician order for PT if risk factors associated with mobility are present 22. Obtain physician order for OT as appropriate 23. Utilize diversional activities 24. Educate patient and patient livestock sales representative how to maintain a safe environment during visitationtimes (notify nurse prior to leaving bedside) 25. Consider appropriateness of medical or non-medical corps officer 26. Set up voiding schedule as appropriate [...] patients are rounded on q1h and PRN. [facility]10-30-2024 Progress note* Discharge Planning Note - KALINA Sanon - 05/22/2024 2:06 PM EDT DISCHARGE PLANNING NOTE Sourcer met with patient, introduced self, and explained role. Patient is alert and oriented, sitting in lazy boy chair, cooperative. Patient educated on safe discharge plan. Pt admitted 05/21/2024 with Septic shock ([facility]) [A41.9, R65.21] Elevated troponin [R79.89] per chart review. Consults: Urology Discharge Barriers per Daily Transition Rounds and chart review: clears, IV ATB, IV Pepcid, new neph tube, guevara Past Medical History: Diagnosis Date Migraines Septic shock ([facility]) 05/21/2024 Prior to admission patient [...] final transition needs. PCP: OLMAN SHOEMAKER MD Pharmacy:[facility] PCP and pharmacy confirmed with patient. OLMAN [...] questions. - KALINA SANON 05/22/24 2:07 PM [facility]10-30-2024 Progress note* Query Response - Ryan Benitez [...] 60 Thank you, Angella PIERCE, RN Clinical Photogrammetry Airplane Pilot Clinical Documentation Integrity Email: [email or web address] Normal Hours of availability 7:00am to 3:30pm, Monday to Monday CDI RESPONSE TEXT: Thrombocytopenia due to sepsis Query created by: Angella Gilbert on 05/22/2024 6:01 AM Electronically signed by: Ryan Benitez MD 05/22/2024 12:00 PM [facility]10-30-2024 Plan of care note* Plan of Care - Maria Morton MD - 05/22/2024 9:34 AM EDT [facility] Transfer Accept Note I received a request from the ICU team to transfer primary service to [facility]. I have received a verbalhand off from the ICU team. [facility] will assume care as primary team, once [...] to floor if continued to be stable [employer] Work Phone: 1(792) 922-627310-30-2024 Progress note* Query Response - Ryan Benitez [...] tachypneic?. Thank you, Angella PIERCE, RN Clinical Photogrammetry Airplane Pilot Clinical Documentation Integrity Email: [email or web address] Normal Hours of availability 7:00am to 3:30pm, Monday to Monday CDI RESPONSE TEXT: Acute respiratory failure due to sepsis Query created by: Angella Gilbert on 05/22/2024 6:08 AM Electronically signed by: Ryan Benitez MD 05/22/2024 8:35 AM [facility]10-29-2024 Plan of care note* Plan of Care - Bertrand Cleary - 05/21/2024 9:59 PM EDT Problem: Pain Goal: Patient goal is pain score less than 4, able to rest, and participant in treatment plan as appropriate Description: INTERVENTIONS: 1. Encourage patient or legal livestock sales representative to report early pain and [...] per policy 9. Teach patient or legal livestock sales representative interventions for comforting Outcome: Progressing [...] hygiene technique 7. Identify and instruct patient/patient livestock sales representative in use of appropriate isolation precautionsfor identified infection/symptoms 8. Provide and discuss with patient/patient livestock sales representative on educational MDRO sheet 9. Encourage and monitor nutritional status daily and consult crayon sorting machine feeder if indicated 10. Implement neutropenic guidelines as needed 11. Review exposure to history of communicable disease and recent travel history on admission 12. Encourage annual influenza vaccine 13. Encourage pneumonia vaccine Outcome: Progressing Note: Evaluation of progress towards goal: Pt on ATBs. RN monitoring vital signs. [facility] Procedure note* Serafin Ott RN - 05/21/2024 4:04 PM EDT Site Preparation: Site Marked: yes Other: left back Prepped with: Chloraprep - with dry time of 3 minutes prior to draping the patient Site Clipped: no Patient Draped: yes [facility]10-29-2024 Procedure note* Serafin Ott RN - 05/21/2024 4:04 PM EDT Site Preparation: Site Marked: yes Other: left back Prepped with: Chloraprep - with dry time of 3 minutes prior to draping the patient Site Clipped: no Patient Draped: yes * STEPHEN Cobian - 05/21/2024 2:25 PM EDTAssociated Order(s): Central Line Insertion Post-Procedure Diagnose(s): Septic shock ([facility]) Images from the original note [...] to verify the correct patient, procedure, equipment, it support technician and site/side marked as required. Fire Risk [...] Interventions: none Proceduralist: Milton Garcia CNP 1st Production Assembly Supervisor: Samantha Whitley CNP ESTIMATED BLOOD LOSS: Less [...] an easily collapsible vessel using ultrasound. A 7.0-greek 16 cm triple lumen catheter was inserted [...] Arterial Line Insertion Post-Procedure Diagnose(s): Septic shock ([facility]) PREOPERATIVE DIAGNOSIS: Septic shock Urosepsis [...] to verify the correct patient, procedure, equipment, it support technician and site/side marked as required. Fire Risk [...] STEPHEN Cobian 05/21/24 1423 documented in this encounterC[facility] Nurse procedure note* Sedation Documentation - Serafin Ott RN - 05/21/2024 3:58 PM EDT Basic respiratory resuscitation equipment including Ambu bags, airway devices, suction, oxygen, blood pressure cuff appropriate to size of patient, alarm security or surveillance monitor, pulse oximetry, ETCO2, and reversal agents are available. An emergency resuscitation cart, advanced resuscitation medications and defibrillator are availablein the immediate area. [facility] Screenie [id number] Consult note* Esme Chen MD - 05/21/2024 2:35 PM EDTAssociated Order(s): IP CONSULT TO UROLOGY Urology Consultation Patient: Sharri Murillo Date of : 1955 CHIEF COMPLAINT: left ureteral stone, sepsis HISTORY OF PRESENT ILLNESS: The patient is a 68 y.o. female who presented to [facility] with history of recent UTI on [...] ureter or renal pelvis. [facility] she has required Vasopressor for [...] pelvis- Marked left hydro and hydroureter to [id number] UVJ stone. Possible additional proximal stone, + leftrenal stone Assessment and Plan Impression: 68 yo female with obstructing left distal ureterovesical junction stone with hydroureteronephrosis,+UTI, acute kidney injury Plan: IR consulted for left percutaneous nephrostomy tube emergently, placed and draining, culture sent Continuous supportive care, broad-spectrum antibiotics, ICU support We will need outpatient intervention of stone either here or in [place], also has left nonobstructing kidney stone No further acute urologic intervention needed at this time, will monitor - SHAHZAD LEI 05/21/24 3:04 PM Attending Attestation: I personally performed the face to face diagnostic evaluation on this patient. I have reviewed the advanced practice practitioner's history, exam, and MDM and agree with the assessment and plan as written. [facility]10-29-2024 Procedure note* STEPHEN Cobian - 05/21/2024 2:25 PM EDTAssociated Order(s): Central Line Insertion Post-Procedure Diagnose(s): Septic shock ([facility]) Images from the original note [...] to verify the correct patient, procedure, equipment, it support technician and site/side marked as required. Fire Risk [...] Interventions: none Proceduralist: Milton Garcia CNP 1st Production Assembly Supervisor: Samantha Whitley CNP ESTIMATED BLOOD LOSS: Less [...] an easily collapsible vessel using ultrasound. A 7.0-greek 16 cm triple lumen catheter was inserted [...] Same as above STEPHEN Cobian 05/21/24 1427 [facility]10-29-2024 Procedure note* STEPHEN Cobian - 05/21/2024 2:19 PM EDTAssociated Order(s): Arterial Line Insertion Post-Procedure Diagnose(s): Septic shock ([facility]) PREOPERATIVE DIAGNOSIS: Septic shock Urosepsis [...] to verify the correct patient, procedure, equipment, it support technician and site/side marked as required. Fire Risk [...] Same as above STEPHEN Cobian 05/21/24 1423 [facility]10-29-2024 History and physical note* Ryan Benitez MD - 05/21/2024 1:35 PM EDT Consultation Note [facility] Critical [facility] Referring physician: Fabien Rivera Patient - Sharri Murillo Age - 68 [facility]. [facility] 1955 [id number] Date of Admission - 05/21/2024 12:52 PM [...] hydronephrosis. Patient was given antibiotics and transferred [facility] for further management. Seen and examined [...] titration of care by a Critical Care Special Education Instructor. Failure to do so may result in further organ system failure, imminent deterioration, or . Ryan Benitez MD [facility] Physicians Pulmonary and Sleep Pulmonary / Critical Care Pager: [phone] Office : [phone] Fax : [phone] 05/21/24 1:35 PM [facility]10-29-2024 History and physical note* Ryan Benitez MD - 05/21/2024 1:35 PM EDT Consultation Note [facility] Critical [facility] Referring physician: Fabien Rivera Patient - Sharri Murillo Age - 68 y.[facility]. - 1955 [id number] Date of Admission - 05/21/2024 12:52 PM [...] hydronephrosis. Patient was given antibiotics and transferred [facility] for further management. Seen and examined [...] titration of care by a Critical Care Special Education Instructor. Failure to do so may result in further organ system failure, imminent deterioration, or . Ryan Benitez MD [facility] / Critical Care Pager: [phone] Office : [phone] Fax : [phone] 05/21/24 1:35 PM documented in this encounterCleveland [facility]06-[facility] Hospital Discharge instructions Patient Education 01/16/2024 [...] include: ?8 oz (237 mL) of milk, fcrfqfq-fdtjmifxnmna-wulup milk, and calcium- fortifiedfruit juice. Calcium-fortified means [...] ?Spinach (cooked), rhubarb, beets, sweet potatoes, and Cypriot chard. ?Peanuts. ?Potato chips, greek fries, and baked potatoes with skin on. ?Nuts and nut products. ?Chocolate. If you regularly take a diuretic medicine, make sure to eat at least 1 or 2 servings of fruits or vegetables that are high in potassium each day. These include: ?Avocado. ?Banana. ?[place], prune, carrot, or tomato juice. ?Baked potato. [...] magnesium, fish oil, or vitamin B6. Take jlpe-qft-hgyfljf and prescription medicines only as told by [...] Casseroles. Pizza. Lasagna. Frozen meals. Potato chips. Ethiopian fries. The items listed above may not [...] provider. Document Revised: 10/20/2022 Document Reviewed: 10/20/2022 [email or web address] Patient Education 2022 [employer]. Follow Up Care 08/10/2022 15:34:44 With:THUY CAMPBELL PA-C, URL Address: [place] [address] When: Unknown [facility] evaluation + Plan note Future Appointments Appointment Date:01/10/2024 03:00:00 PM Scheduled Provider:THUY CAMPBELL PA-C Location:[facility] Appointment Type:URO Office Visit Diagnostic Tests Pending * Urine Culture [facility] noteNo InformationNort FirmPlay Other Evaluation noteNo assessment information available [facility] Work Phone: Evaluation note* Diagnosis Onset Date Resolution Status Influenza B noneactiveBronchitisacute [facility] Work Phone: Evaluation note* Diagnosis Onset Date Resolution Status Hypertension acuteScreening mammogram for breast canceracute [facility] Work Phone: Evaluation note* Diagnosis Calculus of ureterovesical junction (UVJ)- Primary Hypokalemia- Primary Hypopotassemia Calculus of ureterovesical junction (UVJ) Calculus of ureterovesical junction (UVJ) [facility]* Diagnosis Flank pain- Primary Abdominal pain, unspecified site [facility]* Diagnosis Septic shock (CMS-HCC)- Primary Septic shock ([facility]) E coli bacteremia Nephrolithiasis Calculus of kidney [facility]* Diagnosis Calculus of ureterovesical junction (UVJ)- Primary Septic shock (CMS-HCC) Bacteremia- Primary Septic shock (CMS-HCC) Calculus of ureterovesical junction (UVJ) documented [facility]* Diagnosis Calculus of ureterovesical junction (UVJ)- Primary [facility]* Diagnosis Kidney stones- Primary Calculus of kidney Pelvicaliectasis Other specified disorder of kidney and ureter Kidney stone Calculus of kidney [facility]* Diagnosis Kidney stones- Primary Calculus of kidney Pelvicaliectasis Other specified disorder of kidney and ureter Kidney stone Calculus of kidney 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 Kidney stone Calculus of kidney [facility]* Diagnosis Kidney stones- Primary Calculus of kidney Pelvicaliectasis Other specified disorder of kidney and ureter Kidney stone Calculus of kidney 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 [facility]* Diagnosis Onset Date Resolution Status Admit Date Left lumbar radiculopathy acuteOctober 2024 10:06am [facility] Work Phone: History general Narrative - Reported* Type Description Date Medical History HTN Surgical HistoryhysterectomySurgical Historygallbladder removalSurgical History herniaHospitalization Historysee above [employer] Other Hospital course Narrative No data available for this section [facility] No data available for this section [facility] Dis[facility] instructions* Attachments The following attachments cannot be sent through Care Everywhere. * E. coli Infection (Divehi) documented in this encounterProDayton [facility] SystemInstructionsNot on file documented in this encounterWayne Hospital SystemInstructionsNot on file documented in this encounterWayne Hospital SystemInstructionsNot on file documented in this encounterWayne Hospital SystemInstructionsNot on file documented in this encounterWayne Hospital SystemInstructionsNot on file documented in this encounterProDayton Children'S Hospital SystemInstructionsNot on file documented in this encounterProDayton Children'S Hospital SystemInstructionsNot on file documented in this encounterWayne Hospital SystemInstructions* Attachments The following attachments cannot be sent through Care Everywhere. * Kidney Stone Diet (Divehi) documented in this encounterProDayton Children'S Hospital SystemInstructionsNot on file documented in this encounterWayne Hospital SystemInstructionsNot on file documented in this encounterWayne Hospital SystemProgress note No data available for this section [facility] HospitalRecox south for referral (narrative)* Misc (Routine) - Pending ReviewSpecialtyDiagnoses / ProceduresReferred By ContactReferred To Contact Procedures Adult diet Tabby Iqbal MD [address] [place] [address] Phone: tel: fax: Referral IDStatusReasonStart DateExpiration DateVisits RequestedVisits [id number] [id number] [facility] for referral (narrative)No reason for referral information availableMetrohealth Main [facility] Work Phone: Reason for visit Narrative* Auth/Cert (Routine) SpecialtyDiagnoses / ProceduresReferred By ContactReferred To Contact Diagnoses Septic shock (CMS-HCC) Elevated troponin Septic Shock Ryan Benitez MD [address] [facility], [address] [place] [address] Phone: tel: fax: Referral IDStatusReasonStart DateExpiration DateVisits RequestedVisits [id number] [facility] Summary Purpose Family History No Family [...] Advance Directives No August 4:03pm Date ActivatedDate QqrkelnwdbiBrgoicio44/5/2024 7:46 PM06/28/2024 9:02 PMDate ActivatedDate MaiccftuxuvHwfnsgyx74/29/2024 1:36 PM05/26/2024 7:56 PMDate ActivatedDate XvwoamovrzxEvvgqapv71/5/2024 7:46 PM06/28/2024 9:02 PMDate ActivatedDate YdgxuivhsdfBzisynqg50/29/2024 1:36 PM05/26/2024 7:56 PM Advance Directive Response Recorded Date/ Time Advance Directives No August 3:03pm Date ActivatedDate GblbmahzlvvJgpxsyjk15/29/2024 1:36 PMDate ActivatedDate WfiskfpkjxhBbbwaknm29/29/2024 1:36 PMDate ActivatedDate InactivatedComments 05/21/2024 1:36 PM05/26/2024 [...] section and content) DATE CREATED AUTHOR 02/27/2021 [facility] DATE CREATED AUTHOR AUTHOR'S ORGANIZ ATION 08/09/2022 [facility] DATE CREATED AUTHOR AUTHOR'S ORGANIZ ATION 09/12/2024 [facility] DATE CREATED AUTHOR AUTHOR'S ORGANIZ ATION 12/22/2024 [facility] DATE CREATED AUTHOR AUTHOR'S ORGANIZ ATION 02/09/2025 [facility] DATE CREATED AUTHOR AUTHOR'S ORGANIZ ATION 04/09/2025 [facility] DATE CREATED AUTHOR AUTHOR'S ORGANIZ ATION 04/18/2025 [facility] DATE CREATED AUTHOR AUTHOR'S ORGANIZ ATION 06/05/2025 [facility] Patient Care team informatio n (unrecognized section and content) Team Status: Active Member Role Status Dates Olman Shoemaker MD Primary Care Provider Active Team Status: Inactive Member Role Status Dates Olman Shoemaker MD Primary Care Provider Active Start: April 08, 2025 End: April 08, 2025[facility] CommunityAttcone health women[facility] hospital ProviderActiveStart: April 08, 2025 End: April 08, [...] 2023 End: October 25, 2023Thuy Chaney APRN SENIOR BUSINESS CONSULTANT-CAttending ProviderActive Start: October 25, 2023 End: October 25, 2023 Team Status: Inactive Member Role Status Dates Olman Shoemaker MD Primary Care Provide r, Attending Provider Active Start: May 16, 2024 End: May 16, 2024Team MemberRelationshipSpecialtyStart DateEnd Date Olman Shoemaker MD [address] [id number] PCP - GeneralFamily Tibvxunx95/29/24Team MemberRelationshipSpecialtyStart Date End Date Olman Shoemaker MD [address] [place] [address] PCP - GeneralFamily Fctdzlhz10/29/24Team MemberRelationshipSpecialtyStart Date End Date Olman Shoemaker MD [address] [facility] [place] [address] PCP - GeneralFamily Yhjnpgbq97/29/24Team MemberRelationshipSpecialtyStart Date End Date Olman Shoemaker MD [address] [facility] [place] [address] PCP - GeneralFamily Vsiltcsy91/29/24Team MemberRelationshipSpecialtyStart Date End Date Olman Shoemaker MD [address] [facility] [place] [address] PCP - GeneralFamily Rgbbbqsw90/29/24Team MemberRelationshipSpecialtyStart Date End Date Olman Shoemaker MD [address] [place] [address] PCP - GeneralFamily Ngloaxnu61/29/24Team MemberRelationshipSpecialtyStart Date End Date Olman Shoemaker MD [address] [facility] [place] [address] PCP - GeneralFamily Datxveci19/29/24Team MemberRelationshipSpecialtyStart Date End Date Olman Shoemaker MD [address] [facility] [place] [address] PCP - GeneralFamily Zabluepk79/29/24Team MemberRelationshipSpecialtyStart Date End Date Olman Shoemaker MD [address] [facility] [place] [address] PCP - GeneralFamily Onsemdox21/29/24Team MemberRelationshipSpecialtyStart Date End Date Olman Shoemaker MD [address] [place] [address] PCP - GeneralMahaska Healthly Mmgdrfss69/29/24 Team Status: Active Member Role/Relationship Status Dates Olman Shoemaker MD Primary Care Provider Active Team Status: Inactive Member Role/Relationship Status Dates Olman Shoemaker MD Primary Care Provider Active Start: April 08, 2025 End: April 08, 2025[facility]ly [facility] HospitalAttending ProviderActiveStart: April 08, 2025 End: April 08, 2025 Team Status: Inactive Member Role/Relationship Status Dates Olman Shoemaker MD Primary Care Provider Active Start: May 20, 2025 End: May 20, 2025Olman Shoemaker MDAttcone health women's hospital ProviderActiveStart: May 20, 2025 End: May 20, 2025 REASON FOR VISIT (unrecogniz ed section and content) CrjatfDgmtztruRoyfjf-vaGboibrOxkpbuokGsocjs-qe Goals (unrecognized section and content) Goals may [...] 0927 (Given - Provider: Disha Mckeon, MINNIE) qvspqaoh-pvvp-QM-calcium &mins (THERAGRAN-M) 9 mg iron-400 mcg tablet [...] pain scale 1-3, headaches, Starting on Mon05/21/24 [id number], Indications: fever, pain bisacodyL (DULCOLAX) suppository 10 [...] * 0637 (See Alternative - Provider: Keysha Wooyd RN) * 0837 (See Alternative - Provider: [...] pain scale 1-3, headaches, Starting on Mon05/21/24 [id number], Indications: fever, pain Or acetaminophen (TYLENOL) 650 [...] BE BASED ON THE PRIMARY CLINICAL RECORDS. [employer] [facility]. provides no warranty or guarantee of the accuracy or completeness of information in this document.
[2025-06-30 08:23] VITALS: BP 144/77; PULSE 72; TEMP 36.2; O2SAT 99
[2025-06-30 09:07] VITALS: BP 151/68; BP 154/71; PULSE 60; O2SAT 100
[2025-06-30] MEDS: LIDOCAINE HCL 2% 400 MG/20 ML MDV INJ (09:07)
[2025-06-30] MEDS: IOHEXOL 240 MG/ML - 10 ML VIAL INJ (09:08)
[2025-06-30] MEDS: BUPIVACAINE HCL 0.25% PF 25 MG/10 ML VIAL INJ (09:08)
[2025-06-30] MEDS: 0.9 % SODIUM CHLORIDE 10 ML SYRINGE - SALINE FLUSH INJ (09:09)
[2025-06-30] MEDS: DEXAMETHASONE SOD PHOS 10 MG/ML VIAL INJ (09:09)
--- NOTE | 2025-06-30 09:15 | P.ON_ITS ---
Date of procedure: 06/30/25 Pre-op diagnosis: Pain due to lumbar stenosis with neurogenic claudication Post-op diagnosis: same as pre-op Procedure: Procedure: Left L3-4, L4-5 transforaminal epidural steroid injection Medications: Bupivacaine 0.25% 2cc, lidocaine 2% 1cc, dexamethasone 10mg The patient was seen and examined in the preoperative holding area.? Informed consent was obtained and placed on the chart.? Patient was brought to the medical procedure unit and placed in the prone position where a timeout was completed verifying the correct patient, procedure site, position, and planned special equipment using sterile aseptic technique.? Under direct fluoroscopic visualization a 25-gauge Quincke tipped spinal needle was advanced to the designated neural foramen where contrast dye was injected to show adequate spread.? The needle was inserted at level left L3-4. There was no evidence of vascular or adverse uptake.? Epidural spread was appreciated.? The above- mentioned injectate was then placed in a 1.5 mL aliquot preceded by negative aspiration.? The needle was removed. The needle was inserted and the procedure repeated at level left L4-5.? The surgery site was covered.? Patient was taken to the postprocedural recovery area and monitored for an appropriate length of time before found suitable for discharge in the accompaniment of a responsible adult. Anesthesia: Local Surgeon: Zhen Mendoza Pathology: none sent Condition: stable Disposition: no change
== END 2025-06-30 10:01 | disposition home or self-care (01) ==
PROVIDERS: PCP Family Medicine; Visit Provider Anesthesiology
DX: M48.062 Spinal stenosis, lumbar region with neurogenic claudication (principal); G89.29 Other chronic pain
CPT/HCPCS: 64483; 64484; J0665; J1100; Q9966

== ENCOUNTER 2025-07-09 11:08 | Outpatient (OUT) | payer MEDICARE, SELFPAY ==
--- NOTE | 2025-07-09 11:48 | PM.CN ---
Consult Note: HPI Data of Consult Patient: known to practice within the last 3 years Consult date: 06/18/25 Requesting Physician: Zee Tamez NP Primary Care Provider: Hannah Lynn MD Consult Narrative Reason for consult: left thigh pain Narrative: 69yof who presents for evaluation. notes worsening pain throughout left thigh that is primarily exacerbated at night when she wakes up from sleep. has difficulty ambulating. recent lumbar xr shows multilevel ddd, spondylosis in lower lumbar spine. has engaged in chiropractic therapy, provider directed home exercises >6 weeks, without lasting benefit. uses otc meds. recently completed lumbar MRI with results below. recently underwent left L3-4 L4-5 TFESI with >50% improvement in pain and functional ability, notes her pain is significantly improved and no longer sharp/intense. Pain today 2/10 increasing to 5/10 at times. cc:: CC: Zee Tamez NP Review of Systems ROS Musculoskeletal Reports: back pain PFSH PFSH Medical History (Updated 06/18/25 @ 11:45 by Zee Tamez NP) Hiatal hernia ?K44.9 - Diaphragmatic hernia without obstruction or gangrene (ICD-10) Kidney stone ?N20.0 - Calculus of kidney (ICD-10) Surgical History History of knee replacement ?Z96.659 - Presence of unspecified artificial knee joint (ICD-10) H/O hernia repair ?Z98.890 - Other specified postprocedural states (ICD-10) ?Z87.19 - Personal history of other diseases of the digestive system (ICD-10) History of hysterectomy ?Z90.710 - Acquired absence of both cervix and uterus (ICD-10) Meds Home Medications and Allergies Home Medications ?Medication ?Instructions ?Recorded ?Confirmed ?Type aspirin 81 mg tablet,delayed 81 mg PO DAILY 05/21/24 06/30/25 History release hydrochlorothiazide 25 mg tablet 25 mg PO DAILY 05/21/24 06/30/25 History meloxicam 15 mg tablet mg 05/21/24 History mirabegron 50 mg tablet,extended 50 mg PO DAILY 05/21/24 06/30/25 History release 24 hr (Myrbetriq) sumatriptan succinate 25 mg tablet 25 mg PO DAILY PRN migraine 05/21/24 06/30/25 History headache trospium 20 mg tablet 20 mg PO BID 06/03/25 06/30/25 History baclofen 10 mg tablet See Rx Instructions .Route 06/18/25 06/30/25 Rx .COMPLEX PRN muscle spasm #30 tabs ascorbic acid (vitamin C) 1,000 mg 1,000 mg PO DAILY 06/30/25 06/30/25 History tablet,extended release (C Complex) Allergies Allergy/AdvReac Type Severity Reaction Status Date / Time Sulfa (Sulfonamide Allergy Unknown Verified 06/30/25 08:25 Antibiotics) Exam Constitutional Documenting provider has reviewed patient's vital signs: yes Common normals: no apparent distress, oriented x3 and alert General appearance: cooperative HENMT Common normals: normocephalic, hearing grossly normal bilaterally and moist oral mucous membranes Head and scalp: normocephalic Eye Common normals: PERRL Pupil: PERRL Neck & C-Spine Common normals: full ROM General: normal visual inspection Chest Common normals: inspection of chest normal Respiratory Common normals: normal respiratory effort, no retractions and no use of accessory muscles Back & Pelvis Lumbar spine/lower back: ROM limited and straight leg raise negative bilaterally Other: strength 5/5 in BLE sensation intact BLE Neuro Common normals: oriented x3 Sensorium/orientation: alert Psych Common normals: mental status grossly normal, thought process normal, cooperative, affect normal, speech normal and activity/motor behavior normal Speech: normal speech Thought process: normal thought process Results Additional Findings Additional findings: If on a controlled substance or opioids, I have checked an [place] report on this patient and there are no aberrancies noted in the prescribing history.??If on a controlled substance or opioid a drug screen was completed and reviewed within the last year, and if there has not been a drug screen completed we ordered one today to monitor higher risk, state monitored pain medication use. As part of providing excellent, safe, comprehensive care, the following was completed at our patient's visit: 1. A medication reconciliation and review to ensure accurate knowledge of current/active medications, including asking our patients to inform us about any [id number] medications or herbal remedies/nutritional supplements/alternative remedies. 2. A review to specifically ensure our patients have had annual screening for screening for depression, screening for tobacco use, and screening for unhealthy alcohol use. For concerning screenings had a discussion with the patient, provided patient education, and recommended follow-up with primary care provider when appropriate. If patient noted with a risk of falling, they received education on strength, gait, and balance training to prevent future risk of falling. Portions of this note may have been carried over from the previous visit and updated as appropriate. Please note this office utilizes paper charting in addition to the electronic medical record. A list of current medications, vitals, and PMH is available there as the clinical staff outside of myself do not have access to [employer] charting during the clinic day operations. As part of providing quality comprehensive care the current medications, vitals, and PMH were reviewed in the paper chart. Assessment and Plan Assessment and Plan (1) Lumbar stenosis with neurogenic claudication: (2) Myalgia, other site: (3) Lumbar spondylosis: Plan lumbar xray reviewed with pt, shes not interested in NS consultation at this time continue baclofen 10mg hs prn pain/spasms, finding benefit without side effects f/u 3 months, sooner if needed
== END 2025-07-09 11:09 | disposition home or self-care (01) ==
LOC: PM 11:09
PROVIDERS: PCP Family Medicine; Visit Provider Nurse Practitioner
DX: M48.062 Spinal stenosis, lumbar region with neurogenic claudication (principal); M79.18 Myalgia, other site; M47.816 Spondylosis without myelopathy or radiculopathy, lumbar region
CPT/HCPCS: G0463